=== PATIENT | male | born 1950 | race Caucasian/White ===

== ENCOUNTER → 2019-11-13 | Outpatient (CLI) | payer OTHER ==
--- NOTE | 2019-11-14 09:36 | US ---
EXAMINATION TYPE: US kidneys/renal and bladder DATE OF EXAM: 11/13/2019 COMPARISON: NONE CLINICAL HISTORY: unspec kidney failure, N19. EXAM MEASUREMENTS: Right Kidney: 9.9 x 3.5 x 4.5cm Left Kidney: 6.3 x 3.3 x 3.2 cm Right Kidney: No hydronephrosis or masses seen Left Kidney: atrophied, cortical thinning Bladder: wnl, as seen not fully distended Right Jet seen, left not visualized IMPRESSION: 1. Normal renal ultrasound
== END | disposition home or self-care (01) ==
LOC: RADUSWWP 16:22
DX: N19 Unspecified kidney failure (principal); Z88.8 Allergy status to other drugs, medicaments and biological substances
CPT/HCPCS: 76770

== ENCOUNTER 2020-06-08 17:19 | Inpatient (IN) | payer MEDICARE, OTHER ==
[2020-06-08] MEDS ORDERED: SODIUM CHLORIDE 0.9% 500 ML 500 ML IV STA (17:23)
[2020-06-08] MEDS ORDERED: ALBUTEROL NEBULIZED 2.5 MG/3 ML INHALATION STA (17:24)
[2020-06-08] MEDS ORDERED: IPRATROPIUM 0.5 MG/2.5 ML NEBU INHALATION STA (17:24)
[2020-06-08] MEDS ORDERED: AZITHROMYCIN 500 MG in SODIUM CHLORIDE 0.9% 250 ML IVPB STA (17:24)
--- NOTE | 2020-06-08 17:30 | ED ---
General Adult HPI - General Stated complaint: SOB Time Seen by Provider: 06/08/20 17:23 Source: patient Mode of arrival: EMS Limitations: no limitations - History of Present Illness Initial comments: Dictation was produced using [employer] dictation software. please excuse any g rammatical, word or spelling errors. This patient was cared for during a federal and state declared state of emergency secondary to Covid 19 Chief Complaint: Patient is 69-year-old male past medical history colon cancer, COPD, dyslipidemia and hypertension presents today with dyspnea and hypoxia. History of Present Illness: 69-year-old male who has past medical history of COPD. Patient was admitted express when he was found to be hypoxic. EMS was called patient is transferred to the emergency department. Patient reports that he is been feeling more dyspneic over the last 2-3 days. Patient does have a history of COPD. He does not see a lung doctor. He does have an inhaler however doesn't use it because he does not want to get addicted to it. Does not use any oxygen at home. Patient complains of some mild abdominal pain. He does not have any chest pain. Denies any fever, chills or night sweats. He does have a cough. He states that his cough is about the same as that spent for the last several months. EMS reports that upon their initial arrival patient was hypoxic to approximately 85%. EMS provided patient with breathing treatment and supplemental oxygen with improvement of his hypoxia to the low 90s. The ROS documented in this emergency department record has been reviewed and confirmed by me. Those systems with pertinent positive or negative responses have been documented in the HPI. All other systems are other negative and/or noncontributory. PHYSICAL EXAM: General Impression: Alert and oriented x3, not in acute distress HEENT: Normocephalic atraumatic, extra-ocular movements intact, pupils equal and reactive to light bilaterally, mucous membranes moist. Cardiovascular: Heart regular rate and rhythm Chest: Mildly tachypneic, minimal retractions, diffuse lung rhonchi worse on the right lung base compared to the left. Abdomen: abdomen soft, non-tender, non-distended, no organomegaly Musculoskeletal: Pulses present and equal in all extremities, no peripheral edema Motor: no focal deficits noted Neurological: CN II-XII grossly intact, no focal motor or sensory deficits noted Skin: Intact with no visualized rashes Psych: Normal affect and mood ED course:-69 year-old male past medical history of COPD presents with respiratory distress and hypoxia. Vital signs upon arrival shows 85% on room air. X-ray was obtained showing diffuse pulmonary edema consistent with congestive heart failure. Laboratory evaluation obtained. Mild stenosis of 0.7. Cardiac panel is unremarkable. D-dimer is 1.25. Creatinine is 2.6, rest metabolic panel is unremarkable. Troponin is 0.034. Brain natruretic peptide is 29,000. Patient's dyspnea is likely multifactorial including COPD and heart failure however, Lasix, nitroglycerin. Patient placed on BiPAP. ABG was obtained. There is really hypoxia with pO2 56.100% FiO2. Patient observed in emergency department and improved with BiPAP and nitroglycerin. Concerning patient's clinical presentation case was discussed with Dr. Rivas intensive care unit. He was agreeable for patient be admitted to ICU. Case was discussed Dr. Freeman who is willing to accept patients care. Patient started on heparin for elevated troponin. Patient be admitted with the heart failure pathway.. EKG interpretation: Ventricular rate 86, normal sinus rhythm,. 154, QRS 122, QTc 507. Most recent EKG in our EMR is from 07/08/2016. QRS from 07/08/2016 was 106. Today's 122. WA interval 154, QTc 507. There is component of left bundle branch block and lateral precordial leads show ST depressions. EKG is significantly different from 4 years ago.Repeat EKG is performed showing no dynamic changes. There is persistent lateral ST depressions however. - Related Data Home Medications Medication Instructions Recorded Confirmed Amitriptyline HCl [Elavil] 100 mg PO HS 06/04/16 09/21/17 Budesonide/Formoterol Fumarate 1 puff INHALATION BID PRN 06/04/16 09/21/17 [Symbicort 80-4.5 Mcg Inhaler] Cholecalciferol [Vitamin D3 (25 1,000 unit PO DAILY 06/04/16 09/21/17 Mcg = 1000 Iu)] Metoprolol Tartrate [Lopressor] 75 mg PO BID 06/04/16 09/21/17 Mirtazapine [Remeron] 45 mg PO HS 06/04/16 09/21/17 Simvastatin [Zocor] 20 mg PO HS 06/04/16 09/21/17 Tamsulosin [Flomax] 0.4 mg PO DAILY 06/04/16 09/21/17 amLODIPine [Norvasc] 10 mg PO QAM 06/04/16 09/21/17 clonazePAM [KlonoPIN] 1 mg PO BID 06/04/16 09/21/17 raNITIdine HCL [Zantac] 75 mg PO BID 07/16/16 09/21/17 hydrOXYzine pamoate [Vistaril] 10 mg PO BID 09/21/17 09/21/17 Allergies Allergy/AdvReac Type Severity Reaction Status Date / Time lisinopril Allergy swollen Verified 09/21/17 09:16 testicle,rash morphine AdvReac Nausea & Verified 09/21/17 09:16 Vomiting Review of Systems ROS Statement: Those systems with pertinent positive or pertinent negative responses have been documented in the HPI. ROS Other: All systems not noted in ROS Statement are negative. Past Medical History Past Medical History: Cancer, COPD, GERD/Reflux, Hyperlipidemia, Hypertension, Prostate Disorder Additional Past Medical History / Comment(s): cancerous polyp,enlarged prostate,HEMORRHOIDS, BLOOD IN STOOL, RESTLESS LEG, colon Cancer History of Any Multi-Drug Resistant Organisms: None Reported Past Surgical History: Appendectomy, Orthopedic Surgery Additional Past Surgical History / Comment(s): ACL SX RT KNEE X3, LEFT HEEL FUSION, LEFT ARM BICEP SX, NASAL SX R/T ULCER, colon resection, COLONOSCOPY, Past Anesthesia/Blood Transfusion Reactions: No Reported Reaction Past Psychological History: Anxiety, Depression Smoking Status: Current every day smoker Past Alcohol Use History: None Reported Past Drug Use History: None Reported - Past Family History Mother Family Medical History: Cancer Additional Family Medical History / Comment(s): BREAST Sister(s) Family Medical History: Deep Vein Thrombosis (DVT) Father Family Medical History: COPD Additional Family Medical History / Comment(s): FROM CARDIAC ARREST General Exam Limitations: no limitations Course Vital Signs 06/08/20 06/08/20 06/08/20 17:22 17:28 18:00 Pulse Rate 86 82 82 Respiratory 22 22 Rate Blood Pressure 143/105 155/95 O2 Sat by Pulse 85 L Oximetry 06/08/20 06/08/20 06/08/20 18:10 18:30 18:51 Pulse Rate 85 89 88 Respiratory 22 22 Rate Blood Pressure 160/91 155/106 O2 Sat by Pulse 92 L 98 Oximetry Medical Decision Making - Lab Data Result diagrams: 06/08/20 17:32 06/08/20 17:32 Lab Results 06/08/20 06/08/20 06/08/20 Range/Units 17:32 17:32 17:32 WBC 11.7 H (3.8-10.6) k/uL RBC 4.34 (4.30-5.90) m/uL Hgb 12.9 L (13.0-17.5) gm/dL Hct 39.0 (39.0-53.0) % MCV 90.0 (80.0-100.0) fL MCH 29.8 (25.0-35.0) pg MCHC 33.1 (31.0-37.0) g/dL RDW 15.0 (11.5-15.5) % Plt Count 312 (150-450) k/uL Neutrophils % 75 % Lymphocytes % 17 % Monocytes % 4 % Eosinophils % 2 % Basophils % 0 % Neutrophils # 8.8 H (1.3-7.7) k/uL Lymphocytes # 2.0 (1.0-4.8) k/uL Monocytes # 0.5 (0-1.0) k/uL Eosinophils # 0.3 (0-0.7) k/uL Basophils # 0.1 (0-0.2) k/uL PT 10.3 (9.0-12.0) sec INR 1.0 (<1.2) APTT 26.6 (22.0-30.0) sec D-Dimer 1.25 H (<0.60) mg/L FEU Sample Site ABG pH (7.35-7.45) ABG pCO2 (35-45) mmHg ABG pO2 (83-108) mmHg ABG HCO3 (21-25) mmol/L ABG Total CO2 (19-24) mmol/L ABG O2 Saturation (94-97) % ABG Base Excess mmol/L Chris Test FiO2 % Sodium 135 L (137-145) mmol/L Potassium 4.7 (3.5-5.1) mmol/L Chloride 106 (98-107) mmol/L Carbon Dioxide 20 L (22-30) mmol/L Anion Gap 9 mmol/L BUN 21 H (9-20) mg/dL Creatinine 2.60 H (0.66-1.25) mg/dL Est GFR (CKD-EPI)AfAm 28 (>60 ml/min/1.73 sqM) Est GFR (CKD-EPI)NonAf 25 (>60 ml/min/1.73 sqM) Glucose 125 H (74-99) mg/dL Plasma Lactic Acid Dipesh (0.7-2.0) mmol/L Calcium 9.0 (8.4-10.2) mg/dL Magnesium 2.6 H (1.6-2.3) mg/dL Total Bilirubin 0.8 (0.2-1.3) mg/dL AST 33 (17-59) U/L ALT 30 (4-49) U/L Alkaline Phosphatase 92 (38-126) U/L Troponin I (0.000-0.034) ng/mL NT-Pro-B Natriuret Pep pg/mL Total Protein 7.4 (6.3-8.2) g/dL Albumin 4.3 (3.5-5.0) g/dL 06/08/20 06/08/20 06/08/20 Range/Units 17:32 17:32 17:32 WBC (3.8-10.6) k/uL RBC (4.30-5.90) m/uL Hgb (13.0-17.5) gm/dL Hct (39.0-53.0) % MCV (80.0-100.0) fL MCH (25.0-35.0) pg MCHC (31.0-37.0) g/dL RDW (11.5-15.5) % Plt Count (150-450) k/uL Neutrophils % % Lymphocytes % % Monocytes % % Eosinophils % % Basophils % % Neutrophils # (1.3-7.7) k/uL Lymphocytes # (1.0-4.8) k/uL Monocytes # (0-1.0) k/uL Eosinophils # (0-0.7) k/uL Basophils # (0-0.2) k/uL PT (9.0-12.0) sec INR (<1.2) APTT (22.0-30.0) sec D-Dimer (<0.60) mg/L FEU Sample Site ABG pH (7.35-7.45) ABG pCO2 (35-45) mmHg ABG pO2 (83-108) mmHg ABG HCO3 (21-25) mmol/L ABG Total CO2 (19-24) mmol/L ABG O2 Saturation (94-97) % ABG Base Excess mmol/L Chris Test FiO2 % Sodium (137-145) mmol/L Potassium (3.5-5.1) mmol/L Chloride (98-107) mmol/L Carbon Dioxide (22-30) mmol/L Anion Gap mmol/L BUN (9-20) mg/dL Creatinine (0.66-1.25) mg/dL Est GFR (CKD-EPI)AfAm (>60 ml/min/1.73 sqM) Est GFR (CKD-EPI)NonAf (>60 ml/min/1.73 sqM) Glucose (74-99) mg/dL Plasma Lactic Acid Dipesh 1.3 (0.7-2.0) mmol/L Calcium (8.4-10.2) mg/dL Magnesium (1.6-2.3) mg/dL Total Bilirubin (0.2-1.3) mg/dL AST (17-59) U/L ALT (4-49) U/L Alkaline Phosphatase (38-126) U/L Troponin I 0.034 (0.000-0.034) ng/mL NT-Pro-B Natriuret Pep 55414 pg/mL Total Protein (6.3-8.2) g/dL Albumin (3.5-5.0) g/dL 06/08/20 Range/Units 18:26 WBC (3.8-10.6) k/uL RBC (4.30-5.90) m/uL Hgb (13.0-17.5) gm/dL Hct (39.0-53.0) % MCV (80.0-100.0) fL MCH (25.0-35.0) pg MCHC (31.0-37.0) g/dL RDW (11.5-15.5) % Plt Count (150-450) k/uL Neutrophils % % Lymphocytes % % Monocytes % % Eosinophils % % Basophils % % Neutrophils # (1.3-7.7) k/uL Lymphocytes # (1.0-4.8) k/uL Monocytes # (0-1.0) k/uL Eosinophils # (0-0.7) k/uL Basophils # (0-0.2) k/uL PT (9.0-12.0) sec INR (<1.2) APTT (22.0-30.0) sec D-Dimer (<0.60) mg/L FEU Sample Site rrad ABG pH 7.42 (7.35-7.45) ABG pCO2 34 L (35-45) mmHg ABG pO2 56 L* (83-108) mmHg ABG HCO3 22 (21-25) mmol/L ABG Total CO2 23 (19-24) mmol/L ABG O2 Saturation 88.3 L (94-97) % ABG Base Excess -2.8 mmol/L Chris Test Yes FiO2 100 % Sodium (137-145) mmol/L Potassium (3.5-5.1) mmol/L Chloride (98-107) mmol/L Carbon Dioxide (22-30) mmol/L Anion Gap mmol/L BUN (9-20) mg/dL Creatinine (0.66-1.25) mg/dL Est GFR (CKD-EPI)AfAm (>60 ml/min/1.73 sqM) Est GFR (CKD-EPI)NonAf (>60 ml/min/1.73 sqM) Glucose (74-99) mg/dL Plasma Lactic Acid Dipesh (0.7-2.0) mmol/L Calcium (8.4-10.2) mg/dL Magnesium (1.6-2.3) mg/dL Total Bilirubin (0.2-1.3) mg/dL AST (17-59) U/L ALT (4-49) U/L Alkaline Phosphatase (38-126) U/L Troponin I (0.000-0.034) ng/mL NT-Pro-B Natriuret Pep pg/mL Total Protein (6.3-8.2) g/dL Albumin (3.5-5.0) g/dL Critical Care Time Critical Care Time: Yes Total Critical Care Time: 33 Disposition Clinical Impression: Heart failure Disposition: ADMITTED IP TO THIS HOSP Condition: Critical Referrals: [facility],Clinic [Primary Care Provider] - 1-2 days Decision Time: 19:12
[2020-06-08 17:47] LABS: Basophils # (A) 0.1 k/uL (0-0.2); Basophils % (A) 0 %; Eosinophils # (A) 0.3 k/uL (0-0.7); Eosinophils % (A) 2 %; HGB 12.9 gm/dL (13.0-17.5); Lymphocytes % (A) 17 %; MCH 29.8 pg (25.0-35.0); MCHC 33.1 g/dL (31.0-37.0); Mean Platelet Volume 6.7; Monocytes # (A) 0.5 k/uL (0-1.0); Monocytes % (A) 4 %; Neutrophils # (A) 8.8 k/uL (1.3-7.7); Neutrophils % (A) 75 %; Platelet Count 312 k/uL (150-450); RBC 4.34 m/uL (4.30-5.90); WBC 11.7 k/uL (3.8-10.6)
[2020-06-08 17:53] LABS: Albumin 4.3 g/dL (3.5-5.0); Magnesium 2.6 mg/dL (1.6-2.3); Potassium 4.7 mmol/L (3.5-5.1); Total Bilirubin 0.8 mg/dL (0.2-1.3); Total Protein 7.4 g/dL (6.3-8.2)
[2020-06-08 17:56] LABS: Partial Thromboplastin Time 26.6 sec (22.0-30.0); Prothrombin Time 10.3 sec (9.0-12.0)
[2020-06-08] MEDS ORDERED: DEXAMETHASONE SOD PHOSPHATE 10 MG/ML 1 ML VIAL IV STA (17:57)
[2020-06-08 18:01] LABS: D-Dimer 1.25 mg/L FEU (<0.60)
[2020-06-08] MEDS ORDERED: cefTRIAXone IN SWFI 1,000 MG/10 ML SYRINGE IVP STA (18:14)
--- NOTE | 2020-06-08 18:19 | XR ---
EXAMINATION TYPE: XR chest 1V portable DATE OF EXAM: 06/08/2020 COMPARISON: 07/20/2016 HISTORY: Short of breath TECHNIQUE: Single view FINDINGS: There is pulmonary interstitial edema. There is blunting of the costophrenic angles. Heart appears enlarged. IMPRESSION: Congestive heart failure with pleural effusions and pulmonary edema appears new compared to old exam.
[2020-06-08] MEDS ORDERED: NITROGLYCERIN SL TABS 0.4 MG TAB SUBLINGUAL STA (18:30)
[2020-06-08] MEDS ORDERED: HEPARIN SODIUM,PORCINE 5,000 UNIT/ML 1 ML VIAL IV PRN (18:33)
[2020-06-08] MEDS ORDERED: HEPARIN SODIUM,PORCINE 5,000 UNIT/ML 1 ML VIAL IV ONE (18:33)
[2020-06-08] MEDS ORDERED: NITROGLYCERIN-D5W PMX 50 MG in DEXTROSE/WATER 1 250ML.BAG IV ONE (18:33)
[2020-06-08 18:37] LABS: ABG Base Excess -2.8 mmol/L; ABG HCO3 22 mmol/L (21-25); ABG Oxygen Saturation 88.3 % (94-97); ABG PCO2 34 mmHg (35-45); ABG PH 7.42 (7.35-7.45); ABG TCO2 23 mmol/L (19-24); Allen Test Performed? Yes
[2020-06-08] MEDS ORDERED: FUROSEMIDE 10 MG/ML 4 ML VIAL IV STA (18:39)
[2020-06-08 18:43] LABS: ABG PO2 56 mmHg (83-108)
[2020-06-08] MEDS ORDERED: HEPARIN SOD,PORK IN 0.45% NACL 25,000 UNIT in 0.45% NACL 1 250ML.BAG IV SCH (18:45)
[2020-06-08] MEDS ORDERED: ALBUTEROL NEBULIZED 2.5 MG/3 ML INHALATION PRN (20:02)
[2020-06-08] MEDS ORDERED: polyethylene glycoL 3350 17 GM POWD.PACK PO PRN (20:02)
[2020-06-08] MEDS ORDERED: FAMOTIDINE 20 MG TAB PO PRN (20:02)
[2020-06-08] MEDS ORDERED: hydrOXYzine HCL 25 MG TAB PO PRN (20:02)
[2020-06-08 20:35] LABS: Glucose,Whole Blood 170 mg/dL (75-99)
[2020-06-08] MEDS: METOPROLOL TARTRATE 50 MG TAB PO SCH (22:40)
[2020-06-08] MEDS: clonazePAM 1 MG TAB PO SCH (22:41)
[2020-06-08] MEDS: MIRTAZAPINE 45 MG TABLET PO SCH (22:41)
[2020-06-08] MEDS: AMITRIPTYLINE HCL 50 MG TAB PO SCH (22:41)
[2020-06-08] MEDS: MELATONIN 3 MG TABLET PO SCH (22:43)
[2020-06-08] MEDS ORDERED: NALOXONE 0.4 MG/ML 1 ML VIAL IV PRN (23:35)
[2020-06-09] MEDS: FUROSEMIDE 10 MG/ML 4 ML VIAL IV SCH ×3 (03:02→18:51)
[2020-06-09 05:07] LABS: Basophils % (A) 0 %; Eosinophils # (A) 0.1 k/uL (0-0.7); Eosinophils % (A) 1 %; HCT 36.8 % (39.0-53.0); HGB 11.7 gm/dL (13.0-17.5); Lymphocytes # (A) 0.9 k/uL (1.0-4.8); Lymphocytes % (A) 6 %; MCH 28.7 pg (25.0-35.0); MCHC 31.8 g/dL (31.0-37.0); MCV 90.1 fL (80.0-100.0); Mean Platelet Volume 6.7; Monocytes # (A) 0.2 k/uL (0-1.0); Monocytes % (A) 1 %; Neutrophils # (A) 12.5 k/uL (1.3-7.7); Neutrophils % (A) 91 %; Platelet Count 305 k/uL (150-450); RBC 4.09 m/uL (4.30-5.90); RDW 15.1 % (11.5-15.5); WBC 13.7 k/uL (3.8-10.6)
[2020-06-09 05:38] LABS: Calcium 8.8 mg/dL (8.4-10.2); Magnesium 2.4 mg/dL (1.6-2.3)
[2020-06-09] MEDS ORDERED: ONDANSETRON 4 MG/2 ML VIAL IVP PRN (05:59)
[2020-06-09] MEDS: HYDROmorphone 0.5 MG/0.5 ML SYRINGE IVP PRN (06:04)
--- NOTE | 2020-06-09 07:32 | P.CRDCN ---
History of Present Illness Consult date: 06/09/20 Chief complaint: Shortness of breath History of present illness: This is a 69-year-old gentleman with a past medical history significant for hype rtension, dyslipidemia, and chronic obstructive pulmonary disease as well as chronic renal failure presented to the emergency department complaining of shortness of breath. The patient somewhat is a poor historian. He stated that the shortness of breath started about 48 hours before he presented to the emergency department. He describes exertional dyspnea. No fever or chills or cough. He denies any symptoms of chest pain or chest discomfort, dizziness, heart racing, or syncope. No change in the weight. The patient does have history of COPD but he was not using an inhaler looks like it was prescribed to him in the past. Does not follow with any collection teller on regular basis. He does not have any history of coronary artery disease or congestive heart failure or cardiac arrhythmia and he stated that he received a area development consultant in the past. EMS was right and the patient was brought to the emergency department. The chest x-ray when he presented to the hospital showed findings consistent with congestive heart failure. The BNP came in to be elevated at almost 30,000. The d-dimer was checked and came in to be elevated. No CTA of the chest or VQ scan performed but currently the patient is on heparin. The hemoglobin is within normal limits. The creatinine came in to be elevated around 2.7 and the patient's baseline creatinine is lower. The first set of troponin came in to be within normal limits. Please note that the patient was slightly tachycardic when he presented to the hospital but he has been maintaining normal blood pressure and as a matter of fact his pressure on the higher side. The dose of metoprolol he was on at home as well as Norvasc was started. When he was seen this morning he was in mild distress because a Ceballos catheter was placed but the Ceballos was blocked and the patient is unable to get any urine out. He is in process of being seen by a urologist this stars analytical lead. Currently he is also on Lasix IV. I am going to obtain a VQ scan just to rule out a pulmonary embolism. Also I am going to obtain an echocardiogram was Doppler. Meanwhile will continue the heparin IV and continue the Lasix and follow-up with the patient. Past Medical History Past Medical History: Cancer, COPD, GERD/Reflux, Hyperlipidemia, Hypertension, Prostate Disorder Additional Past Medical History / Comment(s): cancerous polyp,enlarged prostate,HEMORRHOIDS, BLOOD IN STOOL, RESTLESS LEG - intermittent, colon Cancer History of Any Multi-Drug Resistant Organisms: None Reported Past Surgical History: Appendectomy, Orthopedic Surgery Additional Past Surgical History / Comment(s): ACL SX RT KNEE X3, LEFT HEEL FUSION, LEFT ARM BICEP SX, NASAL SX R/T ULCER, colon resection, COLONOSCOPY, Past Anesthesia/Blood Transfusion Reactions: No Reported Reaction Past Psychological History: Anxiety, Depression Smoking Status: Current every day smoker Past Alcohol Use History: None Reported Additional Past Alcohol Use History / Comment(s): STARTED AGE 19, SMOKES 1PPD Past Drug Use History: None Reported - Past Family History Mother Family Medical History: Cancer Additional Family Medical History / Comment(s): BREAST Sister(s) Family Medical History: Deep Vein Thrombosis (DVT) Father Family Medical History: COPD Additional Family Medical History / Comment(s): FROM CARDIAC ARREST Medications and Allergies Home Medications Medication Instructions Recorded Confirmed Type Amitriptyline HCl [Elavil] 100 mg PO HS 06/04/16 06/08/20 History Cholecalciferol [Vitamin D3 (25 1,000 unit PO DAILY 06/04/16 06/08/20 History Mcg = 1000 Iu)] Mirtazapine [Remeron] 45 mg PO HS 06/04/16 06/08/20 History Simvastatin [Zocor] 20 mg PO HS 06/04/16 06/08/20 History Tamsulosin [Flomax] 0.4 mg PO DAILY 06/04/16 06/08/20 History amLODIPine [Norvasc] 10 mg PO DAILY 06/04/16 06/08/20 History clonazePAM [KlonoPIN] 1 mg PO BID 06/04/16 06/08/20 History Albuterol Inhaler [Ventolin Hfa 1 puff INHALATION RT-QID PRN 06/08/20 06/08/20 History Inhaler] Budesonide/Formoterol Fumarate 2 puff INHALATION RT-BID 06/08/20 06/08/20 History [Symbicort 160-4.5 Mcg Inhaler] Docusate [Colace] 200 mg PO DAILY 06/08/20 06/08/20 History Famotidine [Pepcid] 20 mg PO BID PRN 06/08/20 06/08/20 History Melatonin 3 mg PO HS 06/08/20 06/08/20 History Metoprolol Tartrate [Lopressor] 75 mg PO DAILY 06/08/20 06/08/20 History Metoprolol Tartrate [Lopressor] 100 mg PO HS 06/08/20 06/08/20 History Multivitamins, Thera [Multivitamin 1 tab PO DAILY 06/08/20 06/08/20 History (formulary)] hydrOXYzine HCL [Atarax] 25 mg PO BID PRN 06/08/20 06/08/20 History polyethylene glycoL 3350 [Miralax] 17 gm PO DAILY 06/08/20 06/08/20 History Allergies Allergy/AdvReac Type Severity Reaction Status Date / Time lisinopril Allergy swollen Verified 06/08/20 19:39 testicle,rash morphine AdvReac Nausea & Verified 06/08/20 19:39 Vomiting Physical Exam Vitals: Vital Signs Temp Pulse Resp BP Pulse Ox 06/09/20 07:00 87 11 L 165/94 98 06/09/20 06:00 85 20 156/96 96 06/09/20 05:00 86 17 153/82 93 L 06/09/20 04:00 98.5 F 76 16 154/87 92 L 06/09/20 03:00 78 16 147/87 93 L 06/09/20 02:00 78 24 144/90 95 06/09/20 01:00 75 16 153/97 93 L 06/09/20 00:00 98.4 F 84 24 154/91 91 L 06/08/20 20:15 86 20 128/96 99 06/08/20 19:30 86 20 128/96 99 06/08/20 19:00 84 23 128/82 98 06/08/20 18:51 88 22 155/106 98 06/08/20 18:30 89 25 H 160/91 92 L 06/08/20 18:10 85 06/08/20 18:00 84 19 164/93 83 L 06/08/20 17:30 84 19 143/105 06/08/20 17:28 82 22 155/95 06/08/20 17:26 89 L 06/08/20 17:22 86 22 143/105 85 L Intake and Output 06/08/20 06/09/20 06/09/20 22:59 06:59 14:59 Intake Total 440 Output Total 600 485 Balance -600 -45 Intake: IV 40 .9 NS 40 Oral 400 Output: Urine 600 485 Other: Voiding Method Indwelling Catheter Indwelling Catheter Weight 62.8 kg - Constitutional General appearance: no acute distress - Respiratory Respiratory: bilateral: wheezing - Cardiovascular Rhythm: regular Heart sounds: normal: S1, S2 Results 06/09/20 04:52 06/09/20 04:52 Cardiac Enzymes 06/08/20 06/08/20 Range/Units 17:32 17:32 AST 33 (17-59) U/L Troponin I 0.034 (0.000-0.034) ng/mL Coagulation 06/08/20 06/09/20 06/09/20 Range/Units 17:32 01:51 04:52 PT 10.3 (9.0-12.0) sec APTT 26.6 47.5 H 49.9 H (22.0-30.0) sec CBC 06/08/20 06/09/20 Range/Units 17:32 04:52 WBC 11.7 H 13.7 H (3.8-10.6) k/uL RBC 4.34 4.09 L (4.30-5.90) m/uL Hgb 12.9 L 11.7 L (13.0-17.5) gm/dL Hct 39.0 36.8 L (39.0-53.0) % Plt Count 312 305 (150-450) k/uL Comprehensive Metabolic Panel 06/08/20 06/09/20 Range/Units 17:32 04:52 Sodium 135 L 138 (137-145) mmol/L Potassium 4.7 4.0 (3.5-5.1) mmol/L Chloride 106 105 (98-107) mmol/L Carbon Dioxide 20 L 22 (22-30) mmol/L BUN 21 H 26 H (9-20) mg/dL Creatinine 2.60 H 2.71 H (0.66-1.25) mg/dL Glucose 125 H 154 H (74-99) mg/dL Calcium 9.0 8.8 (8.4-10.2) mg/dL AST 33 (17-59) U/L ALT 30 (4-49) U/L Alkaline Phosphatase 92 (38-126) U/L Total Protein 7.4 (6.3-8.2) g/dL Albumin 4.3 (3.5-5.0) g/dL Current Medications Generic Name Dose Route Start Last Admin Trade Name Freq PRN Reason Stop Dose Admin Albuterol Sulfate 2.5 mg 06/08/20 20:02 Ventolin Nebulized INHALATION RT-QID PRN Shortness Of Breath Amitriptyline HCl 100 mg 06/08/20 21:00 06/08/20 22:41 Elavil PO 100 mg HS SUMMER Administration Amlodipine Besylate 10 mg 06/09/20 09:00 Norvasc PO DAILY SUMMER Budesonide/Formoterol Fumarate 2 puff 06/09/20 08:00 Symbicort 160-4.5 Mcg Inhaler INHALATION RT-BID SUMMER Clonazepam 1 mg 06/08/20 21:00 06/08/20 22:41 Klonopin PO 1 mg BID SUMMER Administration Docusate Sodium 200 mg 06/09/20 09:00 Colace PO DAILY SUMMER Famotidine 20 mg 06/08/20 20:02 Pepcid PO BID PRN Heartburn Furosemide 40 mg 06/09/20 03:00 06/09/20 03:02 Lasix IV 40 mg Q8H SUMMER Administration Heparin Sodium (Porcine) 0 unit 06/08/20 18:33 Heparin IV PER PROTOCOL PRN Low PTT Protocol Hydromorphone HCl 0.5 mg 06/09/20 05:58 06/09/20 06:04 Dilaudid IVP 0.5 mg Q3HR PRN Administration Pain Hydroxyzine HCl 25 mg 06/08/20 20:02 Atarax PO BID PRN ANXIETY/ITCHING Nitroglycerin/Dextrose 50 mg/ 250 mls @ 3 mls/hr 06/08/20 18:33 06/08/20 18:46 IV Solution IV 06/09/20 18:32 10 mcg/min .Q24H ONE 3 mls/hr Administration Protocol 10 MCG/MIN Heparin Sodium/Sodium Chloride 250 mls @ 8.709 mls/hr 06/08/20 18:45 06/08/20 18:48 25,000 unit/ Sodium Chloride IV 12 units/kg/hr .Q24H SUMMER 8.709 mls/hr Administration Protocol 12 UNITS/KG/HR Melatonin 3 mg 06/08/20 21:00 06/08/20 22:43 Melatonin PO Not Given HS SUMMER Metoprolol Tartrate 100 mg 06/08/20 21:00 06/08/20 22:40 Lopressor PO 100 mg HS SUMMER Administration Metoprolol Tartrate 75 mg 06/09/20 09:00 Lopressor PO DAILY SUMMER Mirtazapine 45 mg 06/08/20 21:00 06/08/20 22:41 Remeron PO 45 mg HS SUMMER Administration Naloxone HCl 0.2 mg 06/08/20 23:35 Narcan IV Q2M PRN Opioid Reversal Ondansetron HCl 4 mg 06/09/20 05:59 Zofran IVP Q6HR PRN Nausea And Vomiting Polyethylene Glycol 17 gm 06/08/20 20:02 Miralax PO DAILY PRN Constipation Tamsulosin HCl 0.4 mg 06/09/20 09:00 Flomax PO DAILY SUMMER Intake and Output 06/08/20 06/09/20 06/09/20 22:59 06:59 14:59 Intake Total 440 Output Total 600 485 Balance -600 -45 Intake: IV 40 .9 NS 40 Oral 400 Output: Urine 600 485 Other: Voiding Method Indwelling Catheter Indwelling Catheter Weight 62.8 kg 06/09/20 04:52 06/09/20 04:52 Assessment and Plan Assessment: Assessment #1 acute hypoxic respiratory failure #2 abnormal d-dimer. PE to be ruled out #3 possible COPD exacerbation #4 component of heart failure exacerbation #5 hypertension #6 dyslipidemia #7 renal failure #8 multiple comorbid conditions Plan #1 continue the current medical regimen including the heparin as well as Lasix #2 rule out PE. We'll obtain a VQ scan in view of the abnormal creatinine #3 obtain an echocardiogram was Doppler #4 continue monitor the blood pressure and adjust medication accordingly. #5 monitor the kidney function and electrolytes #6 follow-up with the patient
--- NOTE | 2020-06-09 07:58 | XR ---
EXAMINATION TYPE: XR chest 1V DATE OF EXAM: 06/09/2020 COMPARISON: 06/08/2020 HISTORY: Shortness of breath FINDINGS: There are bilateral pleural effusions with bibasilar infiltrate. There is a diffuse interstitial pat tern. No pneumothorax. Heart size normal. IMPRESSION: 1. Findings most typical of CHF correlate clinically to exclude pneumonia or interstitial disease. No significant interval change.
[2020-06-09] MEDS: METOPROLOL TARTRATE 25 MG TAB PO SCH (10:23)
[2020-06-09] MEDS: DOCUSATE 100 MG CAP PO SCH (10:23)
[2020-06-09] MEDS: TAMSULOSIN 0.4 MG CAP.ER.24H PO SCH (10:23)
[2020-06-09] MEDS: clonazePAM 1 MG TAB PO SCH ×2 (10:23→20:55)
[2020-06-09] MEDS: amLODIPine 10 MG TAB PO SCH (10:23)
--- NOTE | 2020-06-09 10:34 | US ---
EXAMINATION TYPE: US kidneys/renal and bladder DATE OF EXAM: 06/09/2020 COMPARISON: NONE CLINICAL HISTORY: acute kidney injury. EXAM MEASUREMENTS: Right Kidney: 10.7 x 4.3 x 4.7cm Left Kidney: 6.4 x 3.8 x 4.2cm Right Kidney: prominent renal pelvis Left Kidney: limited views of atrophied kidney due to pleural effusion and extensive overlying bowel gas Bladder: wynn seen Small right pleural effusion noted. Small amount of free fluid seen in the abdomen. IMPRESSION: 1. Prominent extrarenal pelvis favored over mild hydronephrosis on the right correlate clinically. Ma rked atrophy of the left kidney compatible with chronic medical renal disease. 2. No nephrolithiasis. 3. Small amount of free intra-abdominal fluid. 4. Small right pleural effusion
--- NOTE | 2020-06-09 10:35 | US ---
EXAMINATION TYPE: US venous doppler duplex LE DATE OF EXAM: 06/09/2020 10:22 AM COMPARISON: NONE CLINICAL HISTORY: rule out DVT. SIDE PERFORMED: Bilateral TECHNIQUE: The lower extremity deep venous system is examined utilizing real time linear array sonog patty with graded compression, doppler sonography and color-flow sonography. VESSELS IMAGED: External Iliac Vein (EIV) Common Femoral Vein Deep Femoral Vein Greater Saphenous Vein * Femoral Vein Popliteal Vein Small Saphenous Vein * Proximal Calf Veins (* superficial vessels) Right Leg: Negative for DVT Left Leg: Negative for DVT IMPRESSION: 1. No diagnostic evidence of DVT as visualized.
[2020-06-09] MEDS: SYMBICORT 160-4.5 MCG INHALER INHALATION SCH ×2 (11:55→20:04)
--- NOTE | 2020-06-09 13:38 | P.CNPUL ---
History of Present Illness Consult date: 06/09/20 Reason for consult: dyspnea History of present illness: A 69-year-old male patient with known history of COPD and chronic kidney disease in addition to hypertension and hyperlipidemia who came into the hospital because of two-week history of progressive worsening exertional dyspnea along with some orthopnea. No lower extremity edema. Minimal cough. No significant sputum production. No hemoptysis. No pleurisy. No chest pain. No fever or chills. The patient came into the emergency department and the patient was quite short of breath. The patient was briefly placed on BiPAP at a pressure of 12/5 cm of water with an FiO2 of 50%. This morning he was still on BiPAP and I took him off and put him on oxygen at 4 L per minute nasal cannula. The patient had an elevated d-dimer of 2.7. A VQ scan was ordered and the patient was start ed on IV heparin considering the possibility of pulmonary embolism. Noted the chest x-ray showed bilateral pulmonary infiltrates most consistent with CHF. In any rate, and evaluation was started in the patient had an accidental traumatic pole of his Ceballos catheter which resulted in significant amount of hematuria for which urology was consulted and the Ceballos catheter was kept in place. No clots. No outflow obstruction secondary to bleeding. The patient did have some difficulty with urination as the catheter got plugged and ultimately this was rectified by the urologist. The patient remains on IV Lasix for now and is producing adequate amount of urine output. Echocardiogram is pending for now. ProBNP level is quite elevated. No altered mentation. No other complaints otherwise for now. Review of Systems Constitutional: Denies chills, Denies fever Eyes: denies as per HPI, denies blurred vision, denies bulging eye, denies decreased vision, denies diplopia, denies discharge, denies dry eye, denies irritation, denies itching, denies pain, denies photophobia, denies loss of peripheral vision, denies loss of vision, denies tunnel vision/blind spots Ears: deny: decreased hearing, ear discharge, earache, tinnitus Ears, nose, mouth and throat: Denies headache, Denies sore throat Cardiovascular: Reports decreased exercise tolerance, Reports dyspnea on exertion Respiratory: Reports dyspnea Gastrointestinal: Reports as per HPI Genitourinary: Reports as per HPI, Reports hematuria Musculoskeletal: Reports as per HPI Musculoskeletal: absent: ankle pain, ankle stiffness, ankle swelling Integumentary: Reports as per HPI Neurological: Reports as per HPI Psychiatric: Reports as per HPI Endocrine: Reports as per HPI Hematologic/Lymphatic: Reports as per HPI Allergic/Immunologic: Reports as per HPI Past Medical History Past Medical History: Cancer, COPD, GERD/Reflux, Hyperlipidemia, Hypertension, Prostate Disorder Additional Past Medical History / Comment(s): cancerous polyp post-colectomy, BPH, chronic kidney disease, hypertension, hyperlipidemia, COPD, hemorrhoids, restless leg syndrome History of Any Multi-Drug Resistant Organisms: None Reported Past Surgical History: Appendectomy, Orthopedic Surgery Additional Past Surgical History / Comment(s): ACL SX RT KNEE X3, LEFT HEEL FUSION, LEFT ARM BICEP SX, NASAL SX R/T ULCER, colon resection, COLONOSCOPY, Past Anesthesia/Blood Transfusion Reactions: No Reported Reaction Past Psychological History: Anxiety, Depression Smoking Status: Current every day smoker Past Alcohol Use History: None Reported Additional Past Alcohol Use History / Comment(s): STARTED AGE 19, SMOKES 1PPD Past Drug Use History: None Reported - Past Family History Mother Family Medical History: Cancer Additional Family Medical History / Comment(s): BREAST Sister(s) Family Medical History: Deep Vein Thrombosis (DVT) Father Family Medical History: COPD Additional Family Medical History / Comment(s): FROM CARDIAC ARREST Medications and Allergies Home Medications Medication Instructions Recorded Confirmed Type Amitriptyline HCl [Elavil] 100 mg PO HS 06/04/16 06/08/20 History Cholecalciferol [Vitamin D3 (25 1,000 unit PO DAILY 06/04/16 06/08/20 History Mcg = 1000 Iu)] Mirtazapine [Remeron] 45 mg PO HS 06/04/16 06/08/20 History Simvastatin [Zocor] 20 mg PO HS 06/04/16 06/08/20 History Tamsulosin [Flomax] 0.4 mg PO DAILY 06/04/16 06/08/20 History amLODIPine [Norvasc] 10 mg PO DAILY 06/04/16 06/08/20 History clonazePAM [KlonoPIN] 1 mg PO BID 06/04/16 06/08/20 History Albuterol Inhaler [Ventolin Hfa 1 puff INHALATION RT-QID PRN 06/08/20 06/08/20 History Inhaler] Budesonide/Formoterol Fumarate 2 puff INHALATION RT-BID 06/08/20 06/08/20 History [Symbicort 160-4.5 Mcg Inhaler] Docusate [Colace] 200 mg PO DAILY 06/08/20 06/08/20 History Famotidine [Pepcid] 20 mg PO BID PRN 06/08/20 06/08/20 History Melatonin 3 mg PO HS 06/08/20 06/08/20 History Metoprolol Tartrate [Lopressor] 75 mg PO DAILY 06/08/20 06/08/20 History Metoprolol Tartrate [Lopressor] 100 mg PO HS 06/08/20 06/08/20 History Multivitamins, Thera [Multivitamin 1 tab PO DAILY 06/08/20 06/08/20 History (formulary)] hydrOXYzine HCL [Atarax] 25 mg PO BID PRN 06/08/20 06/08/20 History polyethylene glycoL 3350 [Miralax] 17 gm PO DAILY 06/08/20 06/08/20 History Allergies Allergy/AdvReac Type Severity Reaction Status Date / Time lisinopril Allergy swollen Verified 06/08/20 19:39 testicle,rash morphine AdvReac Nausea & Verified 06/08/20 19:39 Vomiting Physical Exam Vitals: Vital Signs Temp Pulse Resp BP Pulse Ox 06/09/20 12:00 97.5 F L 90 19 143/92 90 L 06/09/20 11:00 99 20 158/89 90 L 06/09/20 10:00 92 19 157/92 90 L 06/09/20 09:00 96 20 166/93 95 06/09/20 08:00 97.6 F 90 20 171/89 99 06/09/20 07:00 87 11 L 165/94 98 06/09/20 06:00 85 20 156/96 96 06/09/20 05:00 86 17 153/82 93 L 06/09/20 04:00 98.5 F 76 16 154/87 92 L 06/09/20 03:00 78 16 147/87 93 L 06/09/20 02:00 78 24 144/90 95 06/09/20 01:00 75 16 153/97 93 L 06/09/20 00:00 98.4 F 84 24 154/91 91 L 06/08/20 20:15 86 20 128/96 99 06/08/20 19:30 86 20 128/96 99 06/08/20 19:00 84 23 128/82 98 06/08/20 18:51 88 22 155/106 98 06/08/20 18:30 89 25 H 160/91 92 L 06/08/20 18:10 85 06/08/20 18:00 84 19 164/93 83 L 06/08/20 17:30 84 19 143/105 06/08/20 17:28 82 22 155/95 06/08/20 17:26 89 L 06/08/20 17:22 86 22 143/105 85 L Intake and Output 06/08/20 06/09/20 06/09/20 22:59 06:59 14:59 Intake Total 470 60 Output Total 535 660 7619 Balance - Intake: IV 70 60 .9 NS 70 60 Oral 400 Output: Urine 222 465 9045 Other: Voiding Method Indwelling Catheter Indwelling Catheter Weight 62.8 kg 62.8 kg Gen. appearance, comfortable likely distress, taken off the BiPAP and the patient is currently on 6 L by nasal cannula Head exam was generally normal. There was no scleral icterus or corneal arcus. Mucous membranes were moist. Neck was supple and without jugular venous distension, thyromegaly, or carotid bruits. Carotids were easily palpable bilaterally. There was no adenopathy. Lungs sounds are diminished along with some minimal crackles in lung bases bilaterally along with some few scattered expiratory wheezes Cardiac exam revealed the PMI to be normally situated and sized. The rhythm was regular and no extrasystoles were noted during several minutes of auscultation. The first and second heart sounds were normal and physiologic splitting of the second heart sound was noted. There were no murmurs, rubs, clicks, or gallops. Overall heart sounds are quite distended this point in time. Abdominal exam revealed normal bowel sounds. The abdomen was soft, non-tender, and without masses, organomegaly, or appreciable enlargement of the abdominal aorta. Examination of the extremities revealed easily palpable radial, femoral and pedal pulses. There was no cyanosis, clubbing or edema. Examination of the skin revealed no evidence of significant rashes, suspicious appearing nevi or other concerning lesions. Neurologically the patient is awake and alert and is no focal neurological deficit. Results - Laboratory Findings CBC and BMP: 06/09/20 04:52 06/09/20 04:52 ABG ABG pH 7.42 (7.35-7.45) 06/08/20 18:26 ABG pCO2 34 mmHg (35-45) L 06/08/20 18:26 ABG pO2 56 mmHg (83-108) L* 06/08/20 18:26 ABG O2 Saturation 88.3 % (94-97) L 06/08/20 18:26 PT/INR, D-dimer PT 10.3 sec (9.0-12.0) 06/08/20 17:32 INR 1.0 (<1.2) 06/08/20 17:32 D-Dimer 1.25 mg/L FEU (<0.60) H 06/08/20 17:32 Abnormal lab findings: Abnormal Labs 06/08/20 06/08/20 06/08/20 17:32 17:32 17:32 WBC 11.7 H RBC Hgb 12.9 L Hct Neutrophils # 8.8 H Lymphocytes # APTT D-Dimer 1.25 H ABG pCO2 ABG pO2 ABG O2 Saturation Sodium 135 L Carbon Dioxide 20 L BUN 21 H Creatinine 2.60 H Glucose 125 H POC Glucose (mg/dL) Magnesium 2.6 H Troponin I 06/08/20 06/08/20 06/09/20 18:26 20:34 01:51 WBC RBC Hgb Hct Neutrophils # Lymphocytes # APTT 47.5 H D-Dimer ABG pCO2 34 L ABG pO2 56 L* ABG O2 Saturation 88.3 L Sodium Carbon Dioxide BUN Creatinine Glucose POC Glucose (mg/dL) 170 H Magnesium Troponin I 06/09/20 06/09/20 06/09/20 04:52 04:52 04:52 WBC 13.7 H RBC 4.09 L Hgb 11.7 L Hct 36.8 L Neutrophils # 12.5 H Lymphocytes # 0.9 L APTT 49.9 H D-Dimer ABG pCO2 ABG pO2 ABG O2 Saturation Sodium Carbon Dioxide BUN 26 H Creatinine 2.71 H Glucose 154 H POC Glucose (mg/dL) Magnesium 2.4 H Troponin I 06/09/20 08:16 WBC RBC Hgb Hct Neutrophils # Lymphocytes # APTT D-Dimer ABG pCO2 ABG pO2 ABG O2 Saturation Sodium Carbon Dioxide BUN Creatinine Glucose POC Glucose (mg/dL) Magnesium Troponin I 0.055 H* - Diagnostic Findings Chest x-ray: image reviewed Assessment and Plan Plan: 1 acute hypoxic respiratory failure, initially placed on BiPAP and subsequently transitioned to 6 L of oxygen by nasal cannula. Chest x-ray is consistent with CHF and the patient has a minimal troponin leak of 0.05 troponin max. The patient has no acute EKG abnormalities. Pulmonary embolism is doubtful. 2 acute hematuria, traumatic and the patient was seen by urology and a Ceballos catheter in place 3 chronic kidney disease, stage 3-4 4 hypertension 5 hyperlipidemia 6 COPD, maintained on Symbicort and Ventolin on a when necessary basis 7 chronic anxiety/depression Plan Obtain an echocardiogram to assess LV function Stop IV nitroglycerin Stop IV heparin for now Monitor hematuria Monitor hemoglobin Procedures Doppler of the lower extremity the VQ scan with a low suspicion for pulmonary embolism Continue diuretics Stop the BiPAP and put the patient on oxygen at 6 L Awaiting Covid 19 evaluation by PCR Ultrasound the kidneys to rule out hydronephrosis Resume home medications We'll continue to follow
--- NOTE | 2020-06-09 13:41 | P.HPIM ---
History of Present Illness This is a pleasant 69 years old male with past medical history of colon cancer, kidney disease, COPD, GERD, hyperlipidemia, hypertension, enlarged prostate. When I saw the patient today he was poor historian and could not provide me much information, he thought he is at his apartment but continuous poor [place] he notes 06/09/2020, he did not know the name of the president. Upper staff he was more oriented this morning, probably patient has acute delirium due to his illness and the pain medication he got earlier. As per documentation patient admitted for dyspnea for 2-3 days associated with ongoing cough for several months but no chest pain or abdominal pain, even when I talked to the patient he denies to me any pain. He was breathing quietly however he is on 6 L oxygen via nasal cannula to His oxygen saturation at 90%. Risks of vitals looks stable and he is afebrile. He uses BiPAP as needed during night. Other Vital signs stable. On admission he was hypoxic with oxygen saturation at 83%. He has mild leukocytosis of 13.7 K, hemoglobin 11.7, platelet is normal, d-dimer is elevated at 1.25, ABG showing normal pH of 7.4, low pCO2 of 34 and low pO2 at 56. Elevated creatinine 2.6 and 2.7, baseline 1.1-1.3. Liver enzymes not elevated CHF, cannot exclude pneumonia or interstitial disease. EKG showing normal sinus rhythm at [address] depression on the lateral limits. QTC 506. Venous ultrasound is ultrasound is negative for DVT in both legs. Gallbladder ultrasound: Possible mild right hydronephrosis, no stone, atrophy left kidney He was started on heparin drip. Which was stopped later by practicing urologist Overnight patient pulled his Ceballos catheter however it is still in place what with hematuria, and urology team is consulted V/Q scan and echocardiogram were ordered. His Ceballos catheter is clearing up his urine and becoming less reddish Review of Systems CONSTITUTIONAL: No fever, no malaise, no fatigue. HEENT: No recent visual problems or hearing problems. Denied any sore throat. CARDIOVASCULAR: No orthopnea, PND, no palpitations, no syncope. PULMONARY: No shortness of breath, no cough, no hemoptysis. GASTROINTESTINAL: No diarrhea, no nausea, no vomiting, no abdominal pain. Normoactive bowel sounds. NEUROLOGICAL: No headaches, no weakness, no numbness. HEMATOLOGICAL: Denies any bleeding or petechiae. GENITOURINARY: Denies any burning micturition, frequency, or urgency. MUSCULOSKELETAL/RHEUMATOLOGICAL: Denies any joint pain, swelling, or any muscle pain. ENDOCRINE: Denies any polyuria or polydipsia. Past Medical History Past Medical History: Cancer, COPD, GERD/Reflux, Hyperlipidemia, Hypertension, P rostate Disorder Additional Past Medical History / Comment(s): cancerous polyp,enlarged prostate,HEMORRHOIDS, BLOOD IN STOOL, RESTLESS LEG - intermittent, colon Cancer History of Any Multi-Drug Resistant Organisms: None Reported Past Surgical History: Appendectomy, Orthopedic Surgery Additional Past Surgical History / Comment(s): ACL SX RT KNEE X3, LEFT HEEL FUSION, LEFT ARM BICEP SX, NASAL SX R/T ULCER, colon resection, COLONOSCOPY, Past Anesthesia/Blood Transfusion Reactions: No Reported Reaction Past Psychological History: Anxiety, Depression Smoking Status: Current every day smoker Past Alcohol Use History: None Reported Additional Past Alcohol Use History / Comment(s): STARTED AGE 19, SMOKES 1PPD Past Drug Use History: None Reported - Past Family History Mother Family Medical History: Cancer Additional Family Medical History / Comment(s): BREAST Sister(s) Family Medical History: Deep Vein Thrombosis (DVT) Father Family Medical History: COPD Additional Family Medical History / Comment(s): FROM CARDIAC ARREST Medications and Allergies Home Medications Medication Instructions Recorded Confirmed Type Amitriptyline HCl [Elavil] 100 mg PO HS 06/04/16 06/08/20 History Cholecalciferol [Vitamin D3 (25 1,000 unit PO DAILY 06/04/16 06/08/20 History Mcg = 1000 Iu)] Mirtazapine [Remeron] 45 mg PO HS 06/04/16 06/08/20 History Simvastatin [Zocor] 20 mg PO HS 06/04/16 06/08/20 History Tamsulosin [Flomax] 0.4 mg PO DAILY 06/04/16 06/08/20 History amLODIPine [Norvasc] 10 mg PO DAILY 06/04/16 06/08/20 History clonazePAM [KlonoPIN] 1 mg PO BID 06/04/16 06/08/20 History Albuterol Inhaler [Ventolin Hfa 1 puff INHALATION RT-QID PRN 06/08/20 06/08/20 History Inhaler] Budesonide/Formoterol Fumarate 2 puff INHALATION RT-BID 06/08/20 06/08/20 History [Symbicort 160-4.5 Mcg Inhaler] Docusate [Colace] 200 mg PO DAILY 06/08/20 06/08/20 History Famotidine [Pepcid] 20 mg PO BID PRN 06/08/20 06/08/20 History Melatonin 3 mg PO HS 06/08/20 06/08/20 History Metoprolol Tartrate [Lopressor] 75 mg PO DAILY 06/08/20 06/08/20 History Metoprolol Tartrate [Lopressor] 100 mg PO HS 06/08/20 06/08/20 History Multivitamins, Thera [Multivitamin 1 tab PO DAILY 06/08/20 06/08/20 History (formulary)] hydrOXYzine HCL [Atarax] 25 mg PO BID PRN 06/08/20 06/08/20 History polyethylene glycoL 3350 [Miralax] 17 gm PO DAILY 06/08/20 06/08/20 History Allergies Allergy/AdvReac Type Severity Reaction Status Date / Time lisinopril Allergy swollen Verified 06/08/20 19:39 testicle,rash morphine AdvReac Nausea & Verified 06/08/20 19:39 Vomiting Physical Exam Vitals: Vital Signs Temp Pulse Resp BP Pulse Ox 06/09/20 07:00 87 11 L 165/94 98 06/09/20 06:00 85 20 156/96 96 06/09/20 05:00 86 17 153/82 93 L 06/09/20 04:00 98.5 F 76 16 154/87 92 L 06/09/20 03:00 78 16 147/87 93 L 06/09/20 02:00 78 24 144/90 95 06/09/20 01:00 75 16 153/97 93 L 06/09/20 00:00 98.4 F 84 24 154/91 91 L 06/08/20 20:15 86 20 128/96 99 06/08/20 19:30 86 20 128/96 99 06/08/20 19:00 84 23 128/82 98 06/08/20 18:51 88 22 155/106 98 06/08/20 18:30 89 25 H 160/91 92 L 06/08/20 18:10 85 06/08/20 18:00 84 19 164/93 83 L 06/08/20 17:30 84 19 143/105 06/08/20 17:28 82 22 155/95 06/08/20 17:26 89 L 06/08/20 17:22 86 22 143/105 85 L Intake and Output 06/08/20 06/09/20 06/09/20 22:59 06:59 14:59 Intake Total 440 Output Total 600 485 Balance -600 -45 Intake: IV 40 .9 NS 40 Oral 400 Output: Urine 600 485 Other: Voiding Method Indwelling Catheter Indwelling Catheter Weight 62.8 kg GENERAL: The patient is alert and oriented x3, not in any acute distress. Well developed, well nourished. HEENT: Pupils are round and equally reacting to light. EOMI. No scleral icterus. No conjunctival pallor. Normocephalic, atraumatic. No pharyngeal erythema. No thyromegaly. CARDIOVASCULAR: S1 and S2 present. No murmurs, rubs, or gallops. -PULMONARY: Chest is clear to auscultation, no wheezing. Bilateral basal crepitation -ABDOMEN: Soft, nontender, nondistended, normoactive bowel sounds. No palpable organomegaly. Ceballos catheter is in place MUSCULOSKELETAL: No joint swelling or deformity. EXTREMITIES: No cyanosis, clubbing, or pedal edema. NEUROLOGICAL: Gross neurological examination did not reveal any focal deficits. SKIN: No rashes. No petechiae Results CBC & Chem 7: 06/09/20 04:52 06/09/20 04:52 Labs: Abnormal Lab Results - Last 24 Hours (Table) 06/08/20 06/08/20 06/08/20 Range/Units 17:32 17:32 17:32 WBC 11.7 H (3.8-10.6) k/uL RBC (4.30-5.90) m/uL Hgb 12.9 L (13.0-17.5) gm/dL Hct (39.0-53.0) % Neutrophils # 8.8 H (1.3-7.7) k/uL Lymphocytes # (1.0-4.8) k/uL APTT (22.0-30.0) sec D-Dimer 1.25 H (<0.60) mg/L FEU ABG pCO2 (35-45) mmHg ABG pO2 (83-108) mmHg ABG O2 Saturation (94-97) % Sodium 135 L (137-145) mmol/L Carbon Dioxide 20 L (22-30) mmol/L BUN 21 H (9-20) mg/dL Creatinine 2.60 H (0.66-1.25) mg/dL Glucose 125 H (74-99) mg/dL POC Glucose (mg/dL) (75-99) mg/dL Magnesium 2.6 H (1.6-2.3) mg/dL 06/08/20 06/08/20 06/09/20 Range/Units 18:26 20:34 01:51 WBC (3.8-10.6) k/uL RBC (4.30-5.90) m/uL Hgb (13.0-17.5) gm/dL Hct (39.0-53.0) % Neutrophils # (1.3-7.7) k/uL Lymphocytes # (1.0-4.8) k/uL APTT 47.5 H (22.0-30.0) sec D-Dimer (<0.60) mg/L FEU ABG pCO2 34 L (35-45) mmHg ABG pO2 56 L* (83-108) mmHg ABG O2 Saturation 88.3 L (94-97) % Sodium (137-145) mmol/L Carbon Dioxide (22-30) mmol/L BUN (9-20) mg/dL Creatinine (0.66-1.25) mg/dL Glucose (74-99) mg/dL POC Glucose (mg/dL) 170 H (75-99) mg/dL Magnesium (1.6-2.3) mg/dL 06/09/20 06/09/20 06/09/20 Range/Units 04:52 04:52 04:52 WBC 13.7 H (3.8-10.6) k/uL RBC 4.09 L (4.30-5.90) m/uL Hgb 11.7 L (13.0-17.5) gm/dL Hct 36.8 L (39.0-53.0) % Neutrophils # 12.5 H (1.3-7.7) k/uL Lymphocytes # 0.9 L (1.0-4.8) k/uL APTT 49.9 H (22.0-30.0) sec D-Dimer (<0.60) mg/L FEU ABG pCO2 (35-45) mmHg ABG pO2 (83-108) mmHg ABG O2 Saturation (94-97) % Sodium (137-145) mmol/L Carbon Dioxide (22-30) mmol/L BUN 26 H (9-20) mg/dL Creatinine 2.71 H (0.66-1.25) mg/dL Glucose 154 H (74-99) mg/dL POC Glucose (mg/dL) (75-99) mg/dL Magnesium 2.4 H (1.6-2.3) mg/dL Thrombosis Risk Factor Assmnt - Choose All That Apply Each Factor Represents 1 point: Heart failure (<1month) Each Risk Factor Represents 2 Points: Age 61-74 years Thrombosis Risk Factor Assessment Total Risk Factor Score: 3 Thrombosis Risk Factor Assessment Level: Moderate Risk Assessment and Plan Assessment: Acute on chronic systolic CHF Acute hypoxic respiratory failure Metabolic encephalopathy, mostly secondary to above and also due to his renal failure Elevated d-dimer, rule out PE Acute kidney injury Acute hematuria, related to traumatic injury from Pulling Ceballos catheter . Renal ultrasound: Mild right hydronephrosis and atrophic left kidney Hypertension Hyperlipidemia GERD COPD, no acute process History of colon cancer, Enlarged prostate Plan: This is a pleasant 69 male who presents with acute CHF, continue with Lasix, monitor creatinine and electrolytes, continue with heparin drip (heparin drip was stopped by practicing urologist and instructed to put it back if his next troponin comes back elevated), monitor hemoglobin. Check VQ scan in view of high d- dimer, check echocardiogram. cardiology and pulmonary/critical care consult. Neurology evaluated the patient. Labs and medication were reviewed.. Continue same treatment. Continue with symptomatic treatment. Resume home medication. Monitor lytes and vitals. DVT and GI prophylaxis. Further recommendations of the clinical course of the patient DVT prophylaxis: heparin GI Prophylaxis: Pepcid PT/OT: Pending Prognosis is guarded
--- NOTE | 2020-06-09 14:37 | ECHOF ---
Referral Reason:CHF MEASUREMENTS -------- HEIGHT: 157.5 cm WEIGHT: 68.0 kg BP: IVSd: 1.0 cm (0.6 - 1.1) LVIDd: 5.7 cm (3.9 - 5.3) LVPWd: 1.2 cm (0.6 - 1.1) IVSs: 1.3 cm LVIDs: 4.9 cm LVPWs: 1.3 cm LA Diam: 5.3 cm (2.7 - 3.8) RVIDd: 3.7 cm (< 3.3) LAESV Index (A-L): 51.60 ml/m Ao Diam: 2.7 cm (2.0 - 3.7) EPSS: 2.9 cm MV E Berry: 0.57 m/s MV DecT: 68 ms MV A Berry: 0.38 m/s MV E/A Ratio: 1.50 RAP: 5.00 mmHg RVSP: 19.00 mmHg MV EF SLOPE: 103.20 mm/s (70 - 150) MV EXCURSION: 19.15 mm (> 18.000) FINDINGS -------- Sinus rhythm. This was a technically good study. The left ventricular size is normal. Left ventricular wall thickness is normal. Overall left vent ricular systolic function is severely impaired with, an EF between 20 - 25 %. The right ventricle is normal in size. The left atrium is markedly dilated. LA is severely dilated >40 ml/m2 The right atrial size is normal. The aortic valve is trileaflet, and appears structurally normal. No aortic stenosis or regurgitation. Moderate mitral regurgitation is present. Mild tricuspid regurgitation present. Right ventricular systolic pressure is normal at < 35 mmHg. Trace/mild (physiologic) pulmonic regurgitation. The aortic root size is normal. There is no pericardial effusion. CONCLUSIONS -------- 1. The left ventricular size is normal. 2. Left ventricular wall thickness is normal. 3. Overall left ventricular systolic function is severely impaired with, an EF between 20 - 25 %. 4. The right ventricle is normal in size. 5. The left atrium is markedly dilated. 6. LA is severely dilated >40 ml/m2 7. The right atrial size is normal. 8. Moderate mitral regurgitation is present. 9. Mild tricuspid regurgitation present. 10. Right ventricular systolic pressure is normal at < 35 mmHg. 11. Trace/mild (physiologic) pulmonic regurgitation. BRONZER: Irma Cho RDCS
--- NOTE | 2020-06-09 14:52 | NM ---
EXAMINATION TYPE: NM pul vent and perfuse DATE OF EXAM: 06/09/2020 COMPARISON: NONE HISTORY: Elevated d-dimer TECHNIQUE: Utilizing inhalation of 70.6 mCi Tc 99m DTPA aerosol and intravenous injection of 5.2 mCi of Tc 99m MAA, ventilation and perfusion images are acquired post injection in multiple projections. FINDINGS: There is central accumulation of radiotracer compatible with COPD. One or 2 small matched ventilation /perfusion defects are seen. No evidence for perfusion mismatch at this time. IMPRESSION: Low probability for pulmonary embolism.
[2020-06-09] MEDS ORDERED: FAMOTIDINE 20 MG TAB PO PRN (15:21)
--- NOTE | 2020-06-09 15:55 | P.GSCN ---
History of Present Illness Consult date: 06/09/20 History of present illness: Mr Child is a 69-year-old male with multiple comorbidity. He was admitted to the hospital with exertional dyspnea. He was subsequently placed on heparin drip for possible PE. He was confused this am and he pulled his wynn catheter. subsquently he had significant hematuria. Wynn catheter was reinserted and was clotted. Additional attempt to place a wynn were unsuccessful. On evaluation he denies any hx of urinary issues, urinary retention or previous wynn placement. Review of Systems - Constitutional Denies chills, Denies fever, Denies weight loss - Cardiovascular Reports dyspnea on exertion, Reports shortness of breath, Denies chest pain - Respiratory Reports dyspnea, Denies cough - Gastrointestinal Reports abdominal pain, Reports nausea, Reports vomiting - Genitourinary Reports hematuria, Denies dysuria, Denies flank pain - Neurological Denies weakness Past Medical History Past Medical History: Cancer, COPD, GERD/Reflux, Hyperlipidemia, Hypertension, Prostate Disorder Additional Past Medical History / Comment(s): cancerous polyp,enlarged prostate,HEMORRHOIDS, BLOOD IN STOOL, RESTLESS LEG - intermittent, colon Cancer History of Any Multi-Drug Resistant Organisms: None Reported Past Surgical History: Appendectomy, Orthopedic Surgery Additional Past Surgical History / Comment(s): ACL SX RT KNEE X3, LEFT HEEL FUSION, LEFT ARM BICEP SX, NASAL SX R/T ULCER, colon resection, COLONOSCOPY, Past Anesthesia/Blood Transfusion Reactions: No Reported Reaction Past Psychological History: Anxiety, Depression Smoking Status: Current every day smoker Past Alcohol Use History: None Reported Additional Past Alcohol Use History / Comment(s): STARTED AGE 19, SMOKES 1PPD Past Drug Use History: None Reported - Past Family History Mother Family Medical History: Cancer Additional Family Medical History / Comment(s): BREAST Sister(s) Family Medical History: Deep Vein Thrombosis (DVT) Father Family Medical History: COPD Additional Family Medical History / Comment(s): FROM CARDIAC ARREST Medications and Allergies Home Medications Medication Instructions Recorded Confirmed Type Amitriptyline HCl [Elavil] 100 mg PO HS 06/04/16 06/08/20 History Cholecalciferol [Vitamin D3 (25 1,000 unit PO DAILY 06/04/16 06/08/20 History Mcg = 1000 Iu)] Mirtazapine [Remeron] 45 mg PO HS 06/04/16 06/08/20 History Simvastatin [Zocor] 20 mg PO HS 06/04/16 06/08/20 History Tamsulosin [Flomax] 0.4 mg PO DAILY 06/04/16 06/08/20 History amLODIPine [Norvasc] 10 mg PO DAILY 06/04/16 06/08/20 History clonazePAM [KlonoPIN] 1 mg PO BID 06/04/16 06/08/20 History Albuterol Inhaler [Ventolin Hfa 1 puff INHALATION RT-QID PRN 06/08/20 06/08/20 History Inhaler] Budesonide/Formoterol Fumarate 2 puff INHALATION RT-BID 06/08/20 06/08/20 History [Symbicort 160-4.5 Mcg Inhaler] Docusate [Colace] 200 mg PO DAILY 06/08/20 06/08/20 History Famotidine [Pepcid] 20 mg PO BID PRN 06/08/20 06/08/20 History Melatonin 3 mg PO HS 06/08/20 06/08/20 History Metoprolol Tartrate [Lopressor] 75 mg PO DAILY 06/08/20 06/08/20 History Metoprolol Tartrate [Lopressor] 100 mg PO HS 06/08/20 06/08/20 History Multivitamins, Thera [Multivitamin 1 tab PO DAILY 06/08/20 06/08/20 History (formulary)] hydrOXYzine HCL [Atarax] 25 mg PO BID PRN 06/08/20 06/08/20 History polyethylene glycoL 3350 [Miralax] 17 gm PO DAILY 06/08/20 06/08/20 History Allergies Allergy/AdvReac Type Severity Reaction Status Date / Time lisinopril Allergy swollen Verified 06/08/20 19:39 testicle,rash morphine AdvReac Nausea & Verified 06/08/20 19:39 Vomiting Surgical - Exam Vital Signs Pulse Resp BP Pulse Ox 86 22 143/105 85 L 06/08/20 17:22 06/08/20 17:22 06/08/20 17:22 06/08/20 17:22 - General well developed, well nourished, no distress, moderate distress, severe pain - ENT normal mucosa, no no hearing loss ((+) hearing loss ) - Respiratory normal expansion, normal respiratory effort - Abdomen Abdomen: tender, distended - Psychiatric oriented to time, oriented to person, oriented to place, speech is normal Results - Labs 06/09/20 04:52 06/09/20 04:52 Abnormal Lab Results - Last 24 Hours (Table) 06/08/20 06/08/20 06/08/20 Range/Units 17:32 17:32 17:32 WBC 11.7 H (3.8-10.6) k/uL RBC (4.30-5.90) m/uL Hgb 12.9 L (13.0-17.5) gm/dL Hct (39.0-53.0) % Neutrophils # 8.8 H (1.3-7.7) k/uL Lymphocytes # (1.0-4.8) k/uL APTT (22.0-30.0) sec D-Dimer 1.25 H (<0.60) mg/L FEU ABG pCO2 (35-45) mmHg ABG pO2 (83-108) mmHg ABG O2 Saturation (94-97) % Sodium 135 L (137-145) mmol/L Carbon Dioxide 20 L (22-30) mmol/L BUN 21 H (9-20) mg/dL Creatinine 2.60 H (0.66-1.25) mg/dL Glucose 125 H (74-99) mg/dL POC Glucose (mg/dL) (75-99) mg/dL Magnesium 2.6 H (1.6-2.3) mg/dL Troponin I (0.000-0.034) ng/mL 06/08/20 06/08/20 06/09/20 Range/Units 18:26 20:34 01:51 WBC (3.8-10.6) k/uL RBC (4.30-5.90) m/uL Hgb (13.0-17.5) gm/dL Hct (39.0-53.0) % Neutrophils # (1.3-7.7) k/uL Lymphocytes # (1.0-4.8) k/uL APTT 47.5 H (22.0-30.0) sec D-Dimer (<0.60) mg/L FEU ABG pCO2 34 L (35-45) mmHg ABG pO2 56 L* (83-108) mmHg ABG O2 Saturation 88.3 L (94-97) % Sodium (137-145) mmol/L Carbon Dioxide (22-30) mmol/L BUN (9-20) mg/dL Creatinine (0.66-1.25) mg/dL Glucose (74-99) mg/dL POC Glucose (mg/dL) 170 H (75-99) mg/dL Magnesium (1.6-2.3) mg/dL Troponin I (0.000-0.034) ng/mL 06/09/20 06/09/20 06/09/20 Range/Units 04:52 04:52 04:52 WBC 13.7 H (3.8-10.6) k/uL RBC 4.09 L (4.30-5.90) m/uL Hgb 11.7 L (13.0-17.5) gm/dL Hct 36.8 L (39.0-53.0) % Neutrophils # 12.5 H (1.3-7.7) k/uL Lymphocytes # 0.9 L (1.0-4.8) k/uL APTT 49.9 H (22.0-30.0) sec D-Dimer (<0.60) mg/L FEU ABG pCO2 (35-45) mmHg ABG pO2 (83-108) mmHg ABG O2 Saturation (94-97) % Sodium (137-145) mmol/L Carbon Dioxide (22-30) mmol/L BUN 26 H (9-20) mg/dL Creatinine 2.71 H (0.66-1.25) mg/dL Glucose 154 H (74-99) mg/dL POC Glucose (mg/dL) (75-99) mg/dL Magnesium 2.4 H (1.6-2.3) mg/dL Troponin I (0.000-0.034) ng/mL 06/09/20 Range/Units 08:16 WBC (3.8-10.6) k/uL RBC (4.30-5.90) m/uL Hgb (13.0-17.5) gm/dL Hct (39.0-53.0) % Neutrophils # (1.3-7.7) k/uL Lymphocytes # (1.0-4.8) k/uL APTT (22.0-30.0) sec D-Dimer (<0.60) mg/L FEU ABG pCO2 (35-45) mmHg ABG pO2 (83-108) mmHg ABG O2 Saturation (94-97) % Sodium (137-145) mmol/L Carbon Dioxide (22-30) mmol/L BUN (9-20) mg/dL Creatinine (0.66-1.25) mg/dL Glucose (74-99) mg/dL POC Glucose (mg/dL) (75-99) mg/dL Magnesium (1.6-2.3) mg/dL Troponin I 0.055 H* (0.000-0.034) ng/mL Diabetes panel 06/08/20 06/09/20 Range/Units 17:32 04:52 Sodium 135 L 138 (137-145) mmol/L Potassium 4.7 4.0 (3.5-5.1) mmol/L Chloride 106 105 (98-107) mmol/L Carbon Dioxide 20 L 22 (22-30) mmol/L BUN 21 H 26 H (9-20) mg/dL Creatinine 2.60 H 2.71 H (0.66-1.25) mg/dL Glucose 125 H 154 H (74-99) mg/dL Calcium 9.0 8.8 (8.4-10.2) mg/dL AST 33 (17-59) U/L ALT 30 (4-49) U/L Alkaline Phosphatase 92 (38-126) U/L Total Protein 7.4 (6.3-8.2) g/dL Albumin 4.3 (3.5-5.0) g/dL Calcium panel 06/08/20 06/09/20 Range/Units 17:32 04:52 Calcium 9.0 8.8 (8.4-10.2) mg/dL Albumin 4.3 (3.5-5.0) g/dL Pituitary panel 06/08/20 06/09/20 Range/Units 17:32 04:52 Sodium 135 L 138 (137-145) mmol/L Potassium 4.7 4.0 (3.5-5.1) mmol/L Chloride 106 105 (98-107) mmol/L Carbon Dioxide 20 L 22 (22-30) mmol/L BUN 21 H 26 H (9-20) mg/dL Creatinine 2.60 H 2.71 H (0.66-1.25) mg/dL Glucose 125 H 154 H (74-99) mg/dL Calcium 9.0 8.8 (8.4-10.2) mg/dL Adrenal panel 06/08/20 06/09/20 Range/Units 17:32 04:52 Sodium 135 L 138 (137-145) mmol/L Potassium 4.7 4.0 (3.5-5.1) mmol/L Chloride 106 105 (98-107) mmol/L Carbon Dioxide 20 L 22 (22-30) mmol/L BUN 21 H 26 H (9-20) mg/dL Creatinine 2.60 H 2.71 H (0.66-1.25) mg/dL Glucose 125 H 154 H (74-99) mg/dL Calcium 9.0 8.8 (8.4-10.2) mg/dL Total Bilirubin 0.8 (0.2-1.3) mg/dL AST 33 (17-59) U/L ALT 30 (4-49) U/L Alkaline Phosphatase 92 (38-126) U/L Total Protein 7.4 (6.3-8.2) g/dL Albumin 4.3 (3.5-5.0) g/dL Assessment and Plan Assessment: This is a 69-year-old male with exertional dyspnea. Pulled his wynn traumatically with significant hematuria. Unable to place wynn. Currently in heparin drip for R/O PE Plan: -Wynn was placed with cystoscope over a wire. -Irrigate PRN if hematuric -Ceftrixone 1g X3 days -Keep Wynn for 10 days, call urology prior to wynn removal
--- NOTE | 2020-06-09 16:02 | P.PCN ---
Date of Procedure: 06/09/20 Preoperative Diagnosis: Urethral false passage Postoperative Diagnosis: same Procedure(s) Performed: Cystoscopy with wynn placement over a wire Implants: none Anesthesia: local Surgeon: Muary Hale Estimated Blood Loss (ml): 20 Pathology: none sent Condition: stable Disposition: ICU Indications for Procedure: 69 yo male with significant hematuria after traumatic wynn removal. Unable to pass wynn, Decesion was made to proceed with Wynn placement over a wire Description of Procedure: Flexible cystoscope was inserted per urethra, the scope was advanced up to the bulbar urethra and then into the prostate. At this time large false passage was noticed along the ventral aspect of the prostatic urethra. there was significant tearing to the prostate secondary to traumatic wynn removal. There was significant blood clot within the urethra which made visualization very difficult. A true lumen was visualized scope was advanced through true lumen and into the bladder. there was hematuric urine that was noticed in bladder. At this time a sensor wire was advanced through the scope and into the bladder. The scope was withdrawn with the wire in place. I attempted to pass hematuria catheter over the wire but resistance was met at the prostate. At this time A 20-Greek sillicone catheter was advanced over the wire and into the bladder with return of light red urine The patient tolerated the procedure well, no complication during the procedure
[2020-06-09] MEDS: AMITRIPTYLINE HCL 50 MG TAB PO SCH (20:55)
[2020-06-09] MEDS: HEPARIN SODIUM,PORCINE 5,000 UNIT/ML 1 ML VIAL SQ SCH (20:55)
[2020-06-09] MEDS: METOPROLOL TARTRATE 50 MG TAB PO SCH (20:55)
[2020-06-09] MEDS: MIRTAZAPINE 45 MG TABLET PO SCH (20:55)
[2020-06-09] MEDS: MELATONIN 3 MG TABLET PO SCH (21:07)
[2020-06-10 05:00] LABS: Basophils % (A) 0 %; Eosinophils # (A) 0.2 k/uL (0-0.7); Eosinophils % (A) 1 %; Lymphocytes # (A) 2.4 k/uL (1.0-4.8); Lymphocytes % (A) 13 %; MCH 28.4 pg (25.0-35.0); MCHC 31.3 g/dL (31.0-37.0); MCV 90.6 fL (80.0-100.0); Mean Platelet Volume 6.9; Monocytes # (A) 0.7 k/uL (0-1.0); Monocytes % (A) 4 %; Neutrophils # (A) 14.6 k/uL (1.3-7.7); Neutrophils % (A) 81 %; Platelet Count 318 k/uL (150-450); RBC 3.86 m/uL (4.30-5.90); RDW 15.3 % (11.5-15.5)
[2020-06-10] MEDS: FUROSEMIDE 10 MG/ML 4 ML VIAL IV SCH ×2 (05:07→18:40)
[2020-06-10 05:12] LABS: Calcium 8.7 mg/dL (8.4-10.2); Magnesium 2.3 mg/dL (1.6-2.3); Potassium 3.7 mmol/L (3.5-5.1)
--- NOTE | 2020-06-10 07:38 | P.PN ---
Subjective Progress Note Date: 06/10/20 Principal diagnosis: Congestive heart failure secondary to systolic dysfunction This is a 69-year-old gentleman with a past medical history significant for hypertension, dyslipidemia, and chronic obstructive pulmonary disease as well as chronic renal failure presented to the emergency department complaining of shortness of breath. The patient somewhat is a poor historian. He stated that the shortness of breath started about 48 hours before he presented to the emergency department. He describes exertional dyspnea. No fever or chills or cough. He denies any symptoms of chest pain or chest discomfort, dizziness, heart racing, or syncope. No change in the weight. The patient does have history of COPD but he was not using an inhaler looks like it was prescribed to him in the past. Does not follow with any environmental journalist on regular basis. 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 EMS was right and the patient was brought to the emergency department. The chest x-ray when he presented to the hospital showed findings consistent with congestive heart failure. The BNP came in to be elevated at almost 30,000. The d-dimer was checked and came in to be elevated. No CTA of the chest or VQ scan performed but currently the patient is on heparin. The hemoglobin is within normal limits. The creatinine came in to be elevated around 2.7 and the patient's baseline creatinine is lower. The first set of troponin came in to be within normal limits. The patient was seen this morning, 06/10/2020. He is feeling better indeterminable shortness of breath. No symptoms of chest pain or chest discomfort. Hemodynamically he is stable beside being slightly tachycardic with a resting heart rate around 90 bpm. The VQ scan yesterday showed low probably the for PE. He is off the heparin since yesterday. Unfortunately the echo revealed severe cardiomyopathy with EF around 20% with moderate mitral regurgitation. Currently he is on metoprolol which I'm going to continue and also going to add Aldactone to the current medical regimen and also small dose of lisinopril. I would also consider adding aspirin to the current medical regimen. Unfortunately the creatinine still elevated. He needs to have a coronary angiogram once the creatinine is back to baseline. Objective - Vital Signs Vital signs: Vital Signs Temp 98.2 F 06/10/20 04:00 Pulse 93 06/10/20 07:00 Resp 22 06/10/20 07:00 BP 149/94 06/10/20 07:00 Pulse Ox 90 L 06/10/20 07:00 Intake & Output 06/09/20 06/10/20 06/10/20 18:59 06:59 18:59 Intake Total 70 350 Output Total 4760 9254 623 Balance -7298 -7363 -012 Weight 62.8 kg 63 kg Intake: IV 70 .9 NS 70 Oral 350 Output: Urine 7825 9465 225 Other: Voiding Method Indwelling Catheter Indwelling Catheter - Constitutional General appearance: Present: no acute distress - Respiratory Respiratory: bilateral: wheezing - Cardiovascular Rhythm: regular Heart sounds: normal: S1, S2 - Labs CBC & Chem 7: 06/10/20 04:24 06/10/20 04:24 Labs: Abnormal Lab Results - Last 24 Hours (Table) 06/09/20 06/09/20 06/09/20 Range/Units 08:16 15:03 19:36 WBC (3.8-10.6) k/uL RBC (4.30-5.90) m/uL Hgb (13.0-17.5) gm/dL Hct (39.0-53.0) % Neutrophils # (1.3-7.7) k/uL BUN (9-20) mg/dL Creatinine (0.66-1.25) mg/dL Glucose (74-99) mg/dL Troponin I 0.055 H* 0.041 H* 0.053 H* (0.000-0.034) ng/mL 06/10/20 06/10/20 Range/Units 04:24 04:24 WBC 18.0 H (3.8-10.6) k/uL RBC 3.86 L (4.30-5.90) m/uL Hgb 11.0 L (13.0-17.5) gm/dL Hct 35.0 L (39.0-53.0) % Neutrophils # 14.6 H (1.3-7.7) k/uL BUN 32 H (9-20) mg/dL Creatinine 2.42 H (0.66-1.25) mg/dL Glucose 100 H (74-99) mg/dL Troponin I (0.000-0.034) ng/mL Microbiology - Last 24 Hours (Table) 06/08/20 17:38 Blood Culture - Preliminary Blood No Growth after 24 hours Assessment and Plan Assessment: Assessment #1 acute hypoxic respiratory failure #2 congestive heart failure exacerbation secondary to systolic dysfunction #3 possible COPD exacerbation #4 component of heart failure exacerbation #5 hypertension #6 dyslipidemia #7 renal failure #8 multiple comorbid conditions Plan #1 continue the current dose of metoprolol #2 add Aldactone to the current medical regimen #3 add lisinopril to the current medical regimen #4 continue to monitor the kidney function and electrolytes #5 add aspirin to the current medical regimen
[2020-06-10] MEDS: methylPREDNISolone SOD SUCCI 125 MG/2 ML VIAL IV SCH ×3 (08:58→18:40)
[2020-06-10] MEDS: HEPARIN SODIUM,PORCINE 5,000 UNIT/ML 1 ML VIAL SQ SCH ×2 (08:58→20:32)
[2020-06-10] MEDS: clonazePAM 1 MG TAB PO SCH ×2 (08:59→20:31)
[2020-06-10] MEDS: SPIRONOLACTONE 25 MG TAB PO SCH (08:59)
[2020-06-10] MEDS: METOPROLOL TARTRATE 25 MG TAB PO SCH (08:59)
[2020-06-10] MEDS: TAMSULOSIN 0.4 MG CAP.ER.24H PO SCH (08:59)
[2020-06-10] MEDS: ASPIRIN 81 MG PO SCH (08:59)
[2020-06-10] MEDS: DOCUSATE 100 MG CAP PO SCH (08:59)
[2020-06-10] MEDS: amLODIPine 10 MG TAB PO SCH (08:59)
[2020-06-10] MEDS: SYMBICORT 160-4.5 MCG INHALER INHALATION SCH ×2 (09:12→19:51)
--- NOTE | 2020-06-10 09:19 | XR ---
EXAMINATION TYPE: XR chest 1V portable DATE OF EXAM: 06/10/2020 CLINICAL HISTORY: CHF TECHNIQUE: Semiupright portable view of the chest obtained COMPARISON: 06/09/2020 chest radiograph FINDINGS: Prominent cardiac silhouette. Decreased pulmonary vascular congestion and improved aeration of the bilateral lung bases versus . No pneumothorax. IMPRESSION: Decreased pulmonary vascular congestion and improved aeration of the bilateral lung bases versus 06/09/2020.
--- NOTE | 2020-06-10 13:08 | P.PN ---
Subjective Progress Note Date: 06/10/20 A 69-year-old male patient with known history of COPD and chronic kidney disease in addition to hypertension and hyperlipidemia who came into the hospital because of two-week history of progressive worsening exertional dyspnea along with some orthopnea. No lower extremity edema. Minimal cough. No significant sputum production. No hemoptysis. No pleurisy. No chest pain. No fever or chills. The patient came into the emergency department and the patient was quite short of breath. The patient was briefly placed on BiPAP at a pressure of 12/5 cm of water with an FiO2 of 50%. This morning he was still on BiPAP and I took him off and put him on oxygen at 4 L per minute nasal cannula. The patient had an elevated d-dimer of 2.7. A VQ scan was ordered and the patient was started on IV heparin considering the possibility of pulmonary embolism. Noted the chest x-ray showed bilateral pulmonary infiltrates most consistent with CHF. In any rate, and evaluation was started in the patient had an accidental traumatic pole of his Ceballos catheter which resulted in significant amount of hematuria for which urology was consulted and the Ceballos catheter was kept in place. No clots. No outflow obstruction secondary to bleeding. The patient did have some difficulty with urination as the catheter got plugged and ultimately this was rectified by the urologist. The patient remains on IV Lasix for now and is producing adequate amount of urine output. Echocardiogram is pending for now. ProBNP level is quite elevated. No altered mentation. No other complaints otherwise for now. 06/10/2020 the patient is feeling better compared to yesterday. Less short of breath compared to yesterday. IV heparin was discontinued and the hematuria has also resolved. Nevertheless, the patient echocardiogram that showed impaired LV function with an ejection fraction around 20%. He has abnormal renal function with a creatinine of around 2.4. His renal function has somewhat improved compared to yesterday and ultimately plan is to do a cardiac catheterization once the patient's renal function further stabilizes. Consider the possibility of an ischemic cardiomyopathy underlying his CHF. Mother the patient has limited troponin leak. He was seen by cardiology today. He was started on a combination of URIEL inhibitor and Aldactone in addition to optimize his CHF. He has diuresed well with IV Lasix and the patient is a negative fluid balance of 4.2 L over the past 24 hours. Chest x-ray still showing some COPD along with increased interstitial markings consistent with CHF. Echocardiac Mateusz was noted. No altered mentation. No chest pain. No other complaints otherwise for now. Objective - Vital Signs Vital signs: Vital Signs Temp 98.1 F 06/10/20 12:00 Pulse 105 H 06/10/20 12:00 Resp 15 06/10/20 12:00 BP 173/96 06/10/20 12:00 Pulse Ox 92 L 06/10/20 12:00 Intake & Output 06/09/20 06/10/20 06/10/20 18:59 06:59 18:59 Intake Total 70 350 200 Output Total 2475 2175 750 Balance -5007 -1897 -910 Weight 62.8 kg 63 kg Intake: IV 70 .9 NS 70 Oral 350 200 Output: Urine 2475 2175 750 Other: Voiding Method Indwelling Catheter Indwelling Catheter Indwelling Catheter - Exam Gen. appearance, comfortable likely distress, taken off the BiPAP and the patient is currently on 6 L by nasal cannula Head exam was generally normal. There was no scleral icterus or corneal arcus. Mucous membranes were moist. Neck was supple and without jugular venous distension, thyromegaly, or carotid bruits. Carotids were easily palpable bilaterally. There was no adenopathy. Lungs sounds are diminished along with some minimal crackles in lung bases bilaterally along with some few scattered expiratory wheezes Cardiac exam revealed the PMI to be normally situated and sized. The rhythm was regular and no extrasystoles were noted during several minutes of auscultation. The first and second heart sounds were normal and physiologic splitting of the second heart sound was noted. There were no murmurs, rubs, clicks, or gallops. Overall heart sounds are quite distended this point in time. Abdominal exam revealed normal bowel sounds. The abdomen was soft, non-tender, and without masses, organomegaly, or appreciable enlargement of the abdominal aorta. Examination of the extremities revealed easily palpable radial, femoral and pedal pulses. There was no cyanosis, clubbing or edema. Examination of the skin revealed no evidence of significant rashes, suspicious appearing nevi or other concerning lesions. Neurologically the patient is awake and alert and is no focal neurological deficit. - Labs CBC & Chem 7: 06/10/20 04:24 06/10/20 04:24 Labs: Abnormal Lab Results - Last 24 Hours (Table) 06/09/20 06/09/20 06/10/20 Range/Units 15:03 19:36 04:24 WBC 18.0 H (3.8-10.6) k/uL RBC 3.86 L (4.30-5.90) m/uL Hgb 11.0 L (13.0-17.5) gm/dL Hct 35.0 L (39.0-53.0) % Neutrophils # 14.6 H (1.3-7.7) k/uL BUN (9-20) mg/dL Creatinine (0.66-1.25) mg/dL Glucose (74-99) mg/dL Troponin I 0.041 H* 0.053 H* (0.000-0.034) ng/mL 06/10/20 Range/Units 04:24 WBC (3.8-10.6) k/uL RBC (4.30-5.90) m/uL Hgb (13.0-17.5) gm/dL Hct (39.0-53.0) % Neutrophils # (1.3-7.7) k/uL BUN 32 H (9-20) mg/dL Creatinine 2.42 H (0.66-1.25) mg/dL Glucose 100 H (74-99) mg/dL Troponin I (0.000-0.034) ng/mL Microbiology - Last 24 Hours (Table) 06/08/20 17:38 Blood Culture - Preliminary Blood No Growth after 24 hours Assessment and Plan Plan: 1 acute hypoxic respiratory failure, initially placed on BiPAP and subsequently transitioned to 6 L of oxygen by nasal cannula. Chest x-ray is consistent with CHF and the patient has a minimal troponin leak. Further investigation yielded that the patient has severe systolic heart failure with an ejection fraction of around 20%. Consider ischemic cardiomyopathy. No significant right-sided failure. The patient has moderate degree of mitral regurgitation. Doppler of the lower extremities have been negative. VQ scan is on an intermediate probability. Pulmonary embolism is highly unlikely. Chest x-ray is consistent with CHF. 2 acute hematuria, traumatic and the patient was seen by urology and a Ceballos catheter in place, improved and the patient is currently off IV heparin 3 chronic kidney disease, stage 3-4, and ultrasound the kidneys showing chronic medical renal disease involving the left kidney which is atrophic and some mild hydronephrosis of the right kidney. 4 hypertension 5 hyperlipidemia 6 COPD, maintained on Symbicort and Ventolin on a when necessary basis 7 chronic anxiety/depression Plan Echo results were noted Continue diuretics Optimize CHF by combination of metoprolol 75 mg by mouth in the morning and 100 mg at night in addition to lisinopril 2.5 mg by mouth daily and Aldactone 25 mg by mouth daily. We'll monitor the renal function and potassium level pressure with this above-mentioned additions. Continue IV Lasix for another 24 hours at a dose of 40 mg every 12 hours. Monitor renal function Cardiac catheterization once the patient is stabilized in terms of his renal function Stop the BiPAP and put the patient on oxygen at 6 L Awaiting Covid 19 evaluation by PCR Ultrasound the kidneys was noted We'll continue to follow
[2020-06-10] MEDS: IPRATROPIUM-ALBUTEROL 3 ML NEB INHALATION SCH ×3 (13:39→19:49)
[2020-06-10] MEDS ORDERED: hydrALAZINE HCL 20 MG/ML 1 ML VIAL IVP PRN (13:53)
[2020-06-10] MEDS ORDERED: METOPROLOL TARTRATE 25 MG TAB PO STA (14:10)
--- NOTE | 2020-06-10 14:21 | CDI ---
Documentation Clarification Form Date: 06/10/2020 02:05:02 PM From: Beth Neal CCS, CCDS Admit Date: 06/08/2020 07:08:00 PM Patient Name: Rey Child Visit Number: [id number] Discharge Date: ATTENTION: The Clinical Documentation Specialists (CDI) and [facility] Coding Staff appreciate your assistance in clarifying documentation. Please respond to the clarification below the line at the bottom and electronically sign. The CDI & [facility] Coding staff will review the response and follow-up if needed. Please note: Queries are made part of the Legal Health Record. If you have any questions, please contact the author of this message via ITS. Dr. Fanny Tee: Chronic Kidney Disease Stage 3 - 4 is documented in the 06/09 Pulmonary/Critical Care Consult and subsequent Progress note on 06/10. History/Risk Factors: Colon Cancer, COPD, Dyslipidemia, Hypertension, Smoker. Clinical Indicators: Presented to the ED on 06/08 with SOB & mild abdominal pain, Hypoxic with PO 85% per EMS. Admitted with Acute on Chronic Systolic CHF & BEVERLY. Baseline Creatinine is documented as 1.1 - 1.3, elevated Creatinine on admission: 2.6 - 2.7. GFR 06/08: 25, 06/09: 23; 06/10 27 GFR 10/09/2016: 56 Treatment: BiPAP, IV fluid 500 mls @ 999/hr, INH Albuterol, IV Azithromycin, INH Atrovent, IV Decadron, IV Rocephin, Nitro sl, IV Nitro, IV Lasix. Admit to ICU. Consults: Nephrology is not consulted. In order to capture the severity of condition, please clarify the specific stage of the CKD, if known: CKD Stage 3 (GFR 30-59) CKD Stage 4 (GFR 15-29) Other, please specify Unable to determine (Last Revision: December 2019) CKD Stage 3 (GFR 30-59) MTDD
--- NOTE | 2020-06-10 14:37 | P.PN ---
Subjective Patient is a pleasant 64-year-old male admitted for acute respiratory failure secondary to pulmonary edema from congestive heart failure chronic systolic dysfunction with acute exacerbation patient also had mildly elevated troponins cardiology is following the patient. Patient diuresed well had a negative fluid balance of her round 4 L. Patient is feeling much better today. Echo cardiac exam showed EF of around 20% Objective - Vital Signs Vital signs: Vital Signs Temp 98.1 F 06/10/20 12:00 Pulse 96 06/10/20 13:50 Resp 23 06/10/20 13:00 BP 173/100 06/10/20 13:00 Pulse Ox 93 L 06/10/20 13:00 Intake & Output 06/09/20 06/10/20 06/10/20 18:59 06:59 18:59 Intake Total 70 350 200 Output Total 2475 2175 750 Balance -5931 -3758 -116 Weight 62.8 kg 63 kg Intake: IV 70 .9 NS 70 Oral 350 200 Output: Urine 2625 2175 750 Other: Voiding Method Indwelling Catheter Indwelling Catheter Indwelling Catheter - Exam PHYSICAL EXAMINATION: GENERAL: The patient is alert and oriented x3, not in any acute distress. Well developed, well nourished. HEENT: Pupils are round and equally reacting to light. EOMI. No scleral icterus. No conjunctival pallor. Normocephalic, atraumatic. No pharyngeal erythema. No thyromegaly. CARDIOVASCULAR: S1 and S2 present. No murmurs, rubs, or gallops. PULMONARY: Chest is clear to auscultation, no wheezing or crackles. ABDOMEN: Soft, nontender, nondistended, normoactive bowel sounds. No palpable organomegaly. MUSCULOSKELETAL: No joint swelling or deformity. EXTREMITIES: No cyanosis, clubbing, or pedal edema. NEUROLOGICAL: Gross neurological examination did not reveal any focal deficits. SKIN: No rashes. - Labs CBC & Chem 7: 06/10/20 04:24 06/10/20 04:24 Labs: Abnormal Lab Results - Last 24 Hours (Table) 06/09/20 06/09/20 06/10/20 Range/Units 15:03 19:36 04:24 WBC 18.0 H (3.8-10.6) k/uL RBC 3.86 L (4.30-5.90) m/uL Hgb 11.0 L (13.0-17.5) gm/dL Hct 35.0 L (39.0-53.0) % Neutrophils # 14.6 H (1.3-7.7) k/uL BUN (9-20) mg/dL Creatinine (0.66-1.25) mg/dL Glucose (74-99) mg/dL Troponin I 0.041 H* 0.053 H* (0.000-0.034) ng/mL 06/10/20 Range/Units 04:24 WBC (3.8-10.6) k/uL RBC (4.30-5.90) m/uL Hgb (13.0-17.5) gm/dL Hct (39.0-53.0) % Neutrophils # (1.3-7.7) k/uL BUN 32 H (9-20) mg/dL Creatinine 2.42 H (0.66-1.25) mg/dL Glucose 100 H (74-99) mg/dL Troponin I (0.000-0.034) ng/mL Microbiology - Last 24 Hours (Table) 06/08/20 17:38 Blood Culture - Preliminary Blood No Growth after 24 hours Assessment and Plan Plan: -Acute hypoxic respiratory failure secondary to then start failure chronic systolic dysfunction with acute exacerbation: Patient will continued on IV Lasix. -Acute renal failure: Secondary to prerenal azotemia from heart failure. Continue with Lasix as mentioned above -Metabolic in severity -Hematuria secondary to IV heparin along with a traumatic Ceballos related injury - hypertension Hyperlipidemia Epigastric esophageal reflux disease -COPD without any exacerbation -Benign prostatic hypertrophy
--- NOTE | 2020-06-10 19:20 | P.PN ---
Progress Note - Text Progress Note Date: 06/10/20 The Ceballos catheter remains in place. It is draining blood-tinged urine. Slight leakage around the catheter has been noted. The catheter has irrigated well per the nursing staff. The patient was taking tamsulosin prior to admission and continues to receive it. I would suggest that the catheter remain in place for 5-7 days to allow the urethra to heal. As a courtesy, I would request that the catheter be removed early in the morning in the event that replacement of the catheter is necessary, as cystoscopy was required to insert the catheter yesterday.
[2020-06-10] MEDS: MIRTAZAPINE 45 MG TABLET PO SCH (20:31)
[2020-06-10] MEDS: METOPROLOL TARTRATE 50 MG TAB PO SCH (20:31)
[2020-06-10] MEDS: AMITRIPTYLINE HCL 50 MG TAB PO SCH (20:31)
[2020-06-10] MEDS: MELATONIN 3 MG TABLET PO SCH (20:31)
[2020-06-11 04:49] LABS: Basophils % (A) 0 %; Eosinophils % (A) 0 %; HCT 33.5 % (39.0-53.0); HGB 10.7 gm/dL (13.0-17.5); Lymphocytes % (A) 9 %; MCH 29.2 pg (25.0-35.0); MCV 91.3 fL (80.0-100.0); Mean Platelet Volume 6.8; Monocytes # (A) 0.3 k/uL (0-1.0); Monocytes % (A) 3 %; Neutrophils # (A) 9.5 k/uL (1.3-7.7); Neutrophils % (A) 87 %; Platelet Count 301 k/uL (150-450); RBC 3.67 m/uL (4.30-5.90); RDW 15.3 % (11.5-15.5)
[2020-06-11 05:03] LABS: Calcium 8.6 mg/dL (8.4-10.2); Magnesium 2.3 mg/dL (1.6-2.3); Potassium 4.1 mmol/L (3.5-5.1)
[2020-06-11] MEDS: FUROSEMIDE 10 MG/ML 4 ML VIAL IV SCH (06:46)
--- NOTE | 2020-06-11 07:24 | P.PN ---
Subjective Progress Note Date: 06/11/20 Principal diagnosis: Congestive heart failure secondary to systolic dysfunction This is a 69-year-old gentleman with a past medical history significant for hypertension, dyslipidemia, and chronic obstructive pulmonary disease as well as chronic renal failure presented to the emergency department complaining of shortness of breath. The patient somewhat is a poor historian. He stated that the shortness of breath started about 48 hours before he presented to the emergency department. He describes exertional dyspnea. No fever or chills or cough. He denies any symptoms of chest pain or chest discomfort, dizziness, heart racing, or syncope. No change in the weight. The patient does have history of COPD but he was not using an inhaler looks like it was prescribed to him in the past. Does not follow with any results technician on regular basis. 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 EMS was right and the patient was brought to the emergency department. The chest x-ray when he presented to the hospital showed findings consistent with congestive heart failure. The BNP came in to be elevated at almost 30,000. The d-dimer was checked and came in to be elevated. No CTA of the chest or VQ scan performed but currently the patient is on heparin. The hemoglobin is within normal limits. The creatinine came in to be elevated around 2.7 and the patient's baseline creatinine is lower. The first set of troponin came in to be within normal limits. The echocardiogram revealed impaired LV function was EF around 20%. The patient was seen today, 06/11/2020. Overall and from the cardiovascular standpoint of view, he is feeling better. The shortness of breath has improved. Hemodynamically he continues to be stable. On examination he is not wheezing any more. He seems to be euvolemic for me. Yesterday he was started on Aldactone as well as lisinopril and we did increase the dose of metoprolol 200 mg by mouth twice a day. Pressure has improved significantly. The creatinine is a slightly worse. I'm going to DC the Lasix IV and start the patient on Lasix by mouth. We'll continue monitor the kidney function and electrolytes. Plan to perform coronary angiogram once the creatinine is back to baseline probably as an outpatient. Objective - Vital Signs Vital signs: Vital Signs Temp 97.9 F 06/11/20 04:00 Pulse 78 06/11/20 07:00 Resp 16 06/11/20 07:00 BP 123/68 06/11/20 07:00 Pulse Ox 96 06/11/20 07:00 Intake & Output 06/10/20 06/11/20 06/11/20 18:59 06:59 18:59 Intake Total 200 Output Total 1550 1195 Balance -1350 -1195 Weight 64.1 kg Intake: Oral 200 Output: Urine 1550 1195 Other: Voiding Method Indwelling Catheter Indwelling Catheter - Constitutional General appearance: Present: no acute distress - Respiratory Respiratory: bilateral: CTA - Cardiovascular Rhythm: regular Heart sounds: normal: S1, S2 - Labs CBC & Chem 7: 06/11/20 04:32 06/11/20 04:32 Labs: Abnormal Lab Results - Last 24 Hours (Table) 06/11/20 06/11/20 Range/Units 04:32 04:32 WBC 11.0 H (3.8-10.6) k/uL RBC 3.67 L (4.30-5.90) m/uL Hgb 10.7 L (13.0-17.5) gm/dL Hct 33.5 L (39.0-53.0) % Neutrophils # 9.5 H (1.3-7.7) k/uL Sodium 136 L (137-145) mmol/L BUN 44 H (9-20) mg/dL Creatinine 2.54 H (0.66-1.25) mg/dL Glucose 128 H (74-99) mg/dL Microbiology - Last 24 Hours (Table) 06/08/20 17:38 Blood Culture - Preliminary Blood No Growth after 48 hours Assessment and Plan Assessment: Assessment #1 acute hypoxic respiratory failure #2 congestive heart failure exacerbation secondary to systolic dysfunction #3 possible COPD exacerbation #4 component of heart failure exacerbation #5 hypertension #6 dyslipidemia #7 renal failure #8 multiple comorbid conditions Plan #1 continue the current medical regimen #2 DC Lasix IV and start the patient on Lasix. #3 the chest x-ray was reviewed #4 plan to perform coronary angiogram once the creatinine is back to baseline
[2020-06-11] MEDS: IPRATROPIUM-ALBUTEROL 3 ML NEB INHALATION SCH ×4 (08:18→20:24)
[2020-06-11] MEDS: SYMBICORT 160-4.5 MCG INHALER INHALATION SCH ×2 (08:18→20:24)
[2020-06-11] MEDS: amLODIPine 10 MG TAB PO SCH (08:39)
[2020-06-11] MEDS: SPIRONOLACTONE 25 MG TAB PO SCH (08:39)
[2020-06-11] MEDS: HEPARIN SODIUM,PORCINE 5,000 UNIT/ML 1 ML VIAL SQ SCH ×2 (08:39→20:44)
[2020-06-11] MEDS: TAMSULOSIN 0.4 MG CAP.ER.24H PO SCH (08:39)
[2020-06-11] MEDS: clonazePAM 1 MG TAB PO SCH ×2 (08:40→20:43)
[2020-06-11] MEDS: METOPROLOL TARTRATE 50 MG TAB PO SCH ×2 (08:40→20:43)
[2020-06-11] MEDS: ASPIRIN 81 MG PO SCH (08:40)
--- NOTE | 2020-06-11 09:26 | XR ---
EXAMINATION TYPE: XR chest 1V portable DATE OF EXAM: 06/11/2020 COMPARISON: 06/10/2020 INDICATION: CHF TECHNIQUE: Single frontal view of the chest is obtained. FINDINGS: The heart size is normal. The pulmonary vasculature is normal. The lungs are clear. Previous mild increased lung markings right upper lobe have resolved IMPRESSION: 1. Resolving right upper lobe infiltrate
[2020-06-11] MEDS: DOCUSATE 100 MG CAP PO SCH (09:57)
--- NOTE | 2020-06-11 13:23 | P.PN ---
Subjective Progress Note Date: 06/11/20 A 69-year-old male patient with known history of COPD and chronic kidney disease in addition to hypertension and hyperlipidemia who came into the hospital because of two-week history of progressive worsening exertional dyspnea along with some orthopnea. No lower extremity edema. Minimal cough. No significant sputum production. No hemoptysis. No pleurisy. No chest pain. No fever or chills. The patient came into the emergency department and the patient was quite short of breath. The patient was briefly placed on BiPAP at a pressure of 12/5 cm of water with an FiO2 of 50%. This morning he was still on BiPAP and I took him off and put him on oxygen at 4 L per minute nasal cannula. The patient had an elevated d-dimer of 2.7. A VQ scan was ordered and the patient was started on IV heparin considering the possibility of pulmonary embolism. Noted the chest x-ray showed bilateral pulmonary infiltrates most consistent with CHF. In any rate, and evaluation was started in the patient had an accidental traumatic pole of his Ceballos catheter which resulted in significant amount of hematuria for which urology was consulted and the Ceballos catheter was kept in place. No clots. No outflow obstruction secondary to bleeding. The patient did have some difficulty with urination as the catheter got plugged and ultimately this was rectified by the urologist. The patient remains on IV Lasix for now and is producing adequate amount of urine output. Echocardiogram is pending for now. ProBNP level is quite elevated. No altered mentation. No other complaints otherwise for now. 06/10/2020 the patient is feeling better compared to yesterday. Less short of breath compared to yesterday. IV heparin was discontinued and the hematuria has also resolved. Nevertheless, the patient echocardiogram that showed impaired LV function with an ejection fraction around 20%. He has abnormal renal function with a creatinine of around 2.4. His renal function has somewhat improved compared to yesterday and ultimately plan is to do a cardiac catheterization once the patient's renal function further stabilizes. Consider the possibility of an ischemic cardiomyopathy underlying his CHF. Mother the patient has limited troponin leak. He was seen by cardiology today. He was started on a combination of URIEL inhibitor and Aldactone in addition to optimize his CHF. He has diuresed well with IV Lasix and the patient is a negative fluid balance of 4.2 L over the past 24 hours. Chest x-ray still showing some COPD along with increased interstitial markings consistent with CHF. Echocardiac Mateusz was noted. No altered mentation. No chest pain. No other complaints otherwise for now. 06/11/2020, patient is feeling well and is much less short of breath and he feels is very close to his baseline. He is on oxygen at 2 L per minute nasal cannula. He remains a negative fluid balance on IV Lasix and the patient was switched to oral Lasix. Chest x-ray shows improvement in the volume status. Renal function is stable. The patient is on a combination of Lasix and Aldactone for now. The patient also metoprolol 100 mg by mouth twice a day and hydralazine 10 mg on an as-needed basis in addition to lisinopril 2.5 mg by mouth daily. No nausea. No vomiting. No chest pain. No swelling lower extremities. No other complaints otherwise for now. Echo was noted. Objective - Vital Signs Vital signs: Vital Signs Temp 97.9 F 06/11/20 12:00 Pulse 71 06/11/20 12:00 Resp 22 06/11/20 12:00 BP 112/85 06/11/20 12:00 Pulse Ox 95 06/11/20 12:00 Intake & Output 06/10/20 06/11/20 06/11/20 18:59 06:59 18:59 Intake Total 200 300 Output Total 1550 1195 625 Balance -1350 -1195 -325 Weight 64.1 kg Intake: Intake, IV Titration 50 Amount cefTRIAXone 1 gm In 50 Sodium Chloride 0.9% 50 ml @ 100 mls/hr IVPB Q24HR [facility] Rx#:[id number] Oral 200 250 Output: Urine 1550 1195 625 Other: Voiding Method Indwelling Catheter Indwelling Catheter Indwelling Catheter - Exam Gen. appearance, comfortable likely distress, taken off the BiPAP and the patient is currently on 2 L by nasal cannula Head exam was generally normal. There was no scleral icterus or corneal arcus. Mucous membranes were moist. Neck was supple and without jugular venous distension, thyromegaly, or carotid bruits. Carotids were easily palpable bilaterally. There was no adenopathy. Lungs sounds are diminished along with some minimal crackles in lung bases bilaterally along with some few scattered expiratory wheezes Cardiac exam revealed the PMI to be normally situated and sized. The rhythm was regular and no extrasystoles were noted during several minutes of auscultation. The first and second heart sounds were normal and physiologic splitting of the second heart sound was noted. There were no murmurs, rubs, clicks, or gallops. Overall heart sounds are quite distended this point in time. Abdominal exam revealed normal bowel sounds. The abdomen was soft, non-tender, and without masses, organomegaly, or appreciable enlargement of the abdominal aorta. Examination of the extremities revealed easily palpable radial, femoral and pedal pulses. There was no cyanosis, clubbing or edema. Examination of the skin revealed no evidence of significant rashes, suspicious appearing nevi or other concerning lesions. Neurologically the patient is awake and alert and is no focal neurological deficit. - Labs CBC & Chem 7: 06/11/20 04:32 06/11/20 04:32 Labs: Abnormal Lab Results - Last 24 Hours (Table) 06/11/20 06/11/20 Range/Units 04:32 04:32 WBC 11.0 H (3.8-10.6) k/uL RBC 3.67 L (4.30-5.90) m/uL Hgb 10.7 L (13.0-17.5) gm/dL Hct 33.5 L (39.0-53.0) % Neutrophils # 9.5 H (1.3-7.7) k/uL Sodium 136 L (137-145) mmol/L BUN 44 H (9-20) mg/dL Creatinine 2.54 H (0.66-1.25) mg/dL Glucose 128 H (74-99) mg/dL Microbiology - Last 24 Hours (Table) 06/08/20 17:38 Blood Culture - Preliminary Blood No Growth after 48 hours Assessment and Plan Plan: 1 acute hypoxic respiratory failure, initially placed on BiPAP and subsequently transitioned to 2 L of oxygen by nasal cannula. Chest x-ray is consistent with CHF and the patient has a minimal troponin leak. Further investigation yielded that the patient has severe systolic heart failure with an ejection fraction of around 20%. Consider ischemic cardiomyopathy. Clinically improving the patient is diuresing adequately for now and the patient is currently down to 2 liters of oxygen by nasal cannula. Overall condition is improved significantly. 2 acute hematuria, traumatic and the patient was seen by urology and a Ceballos catheter in place, improved and the patient is currently off IV heparin. The hematuria is completely subsided. 3 chronic kidney disease, stage 3-4, and ultrasound the kidneys showing chronic medical renal disease involving the left kidney which is atrophic and some mild hydronephrosis of the right kidney. 4 hypertension 5 hyperlipidemia 6 COPD, maintained on Symbicort and Ventolin on a when necessary basis 7 chronic anxiety/depression Plan Continue diuretics and the patient was switched to oral Lasix Optimize CHF by combination of metoprolol 75 mg by mouth in the morning and 100 mg at night in addition to lisinopril 2.5 mg by mouth daily and Aldactone 25 mg by mouth daily. We'll monitor the renal function and potassium level pressure with this above-mentioned additions. Monitor renal function Cardiac catheterization once the patient is stabilized in terms of his renal function The FiO2 has been weaned down to 2 L per minute nasal cannula Covid 19 evaluation by PCR is negative Ultrasound the kidneys was noted The patient can be transferred to telemetry unit. We'll continue to follow
--- NOTE | 2020-06-11 14:42 | P.PN ---
Subjective Patient is a pleasant 64-year-old male admitted for acute respiratory failure secondary to pulmonary edema from congestive heart failure chronic systolic dysfunction with acute exacerbation patient also had mildly elevated troponins cardiology is following the patient. Patient diuresed well had a negative fluid balance of her round 4 L. Patient is feeling much better today. Echo cardiac exam showed EF of around 20% 06/11/2020 Patient is doing much better will transfer out of ICU. Patient's Lasix is being switched to oral patient's creatinine is bit worse patient is being started on URIEL inhibitor because of which will need to closely monitor serum creatinine and other electrolytes Constitutional: Denied any fatigue denied any fever. Cardio vascular: denied any chest pain, palpitations Gastrointestinal denied any nausea vomiting Pulmonary: Denied any shortness of breath cough Neurologic denied any new focal deficits All inpatient medications were reviewed and appropriate changes in these medications as dictated in the interval history and assessment and plan. Objective - Vital Signs Vital signs: Vital Signs Temp 97.9 F 06/11/20 12:00 Pulse 68 06/11/20 13:00 Resp 20 06/11/20 13:00 BP 112/85 06/11/20 12:00 Pulse Ox 95 06/11/20 12:00 Intake & Output 06/10/20 06/11/20 06/11/20 18:59 06:59 18:59 Intake Total 200 300 Output Total 1550 1195 625 Balance -1350 -1195 -325 Weight 64.1 kg Intake: Intake, IV Titration 50 Amount cefTRIAXone 1 gm In 50 Sodium Chloride 0.9% 50 ml @ 100 mls/hr IVPB Q24HR [facility] Rx#:[id number] Oral 200 250 Output: Urine 1550 1195 625 Other: Voiding Method Indwelling Catheter Indwelling Catheter Indwelling Catheter - Exam PHYSICAL EXAMINATION: GENERAL: The patient is alert and oriented x3, not in any acute distress. Well developed, well nourished. HEENT: Pupils are round and equally reacting to light. EOMI. No scleral icterus. No conjunctival pallor. Normocephalic, atraumatic. No pharyngeal erythema. No thyromegaly. CARDIOVASCULAR: S1 and S2 present. No murmurs, rubs, or gallops. PULMONARY: Chest is clear to auscultation, no wheezing or crackles. ABDOMEN: Soft, nontender, nondistended, normoactive bowel sounds. No palpable organomegaly. MUSCULOSKELETAL: No joint swelling or deformity. EXTREMITIES: No cyanosis, clubbing, or pedal edema. NEUROLOGICAL: Gross neurological examination did not reveal any focal deficits. SKIN: No rashes. - Labs CBC & Chem 7: 06/11/20 04:32 06/11/20 04:32 Labs: Abnormal Lab Results - Last 24 Hours (Table) 06/11/20 06/11/20 Range/Units 04:32 04:32 WBC 11.0 H (3.8-10.6) k/uL RBC 3.67 L (4.30-5.90) m/uL Hgb 10.7 L (13.0-17.5) gm/dL Hct 33.5 L (39.0-53.0) % Neutrophils # 9.5 H (1.3-7.7) k/uL Sodium 136 L (137-145) mmol/L BUN 44 H (9-20) mg/dL Creatinine 2.54 H (0.66-1.25) mg/dL Glucose 128 H (74-99) mg/dL Microbiology - Last 24 Hours (Table) 06/08/20 17:38 Blood Culture - Preliminary Blood No Growth after 48 hours Assessment and Plan Plan: -Acute hypoxic respiratory failure secondary to then start failure chronic systolic dysfunction with acute exacerbation: Patient is switched to oral Lasix and patient will also started on URIEL inhibitor and Aldactone patient has an EF of around 20%. -Acute renal failure: Secondary to prerenal azotemia from heart failure. Continue with Lasix as mentioned above -Metabolic in severity -Hematuria secondary to IV heparin along with a traumatic Ceballos related injury - hypertension Hyperlipidemia Epigastric esophageal reflux disease -COPD without any exacerbation -Benign prostatic hypertrophy
[2020-06-11] MEDS: FUROSEMIDE 40 MG TAB PO SCH (15:56)
[2020-06-11] MEDS: MIRTAZAPINE 45 MG TABLET PO SCH (20:43)
[2020-06-11] MEDS: AMITRIPTYLINE HCL 50 MG TAB PO SCH (20:43)
[2020-06-11] MEDS: MELATONIN 3 MG TABLET PO SCH (20:44)
[2020-06-12 05:39] LABS: Basophils % (A) 0 %; Eosinophils # (A) 0.1 k/uL (0-0.7); Eosinophils % (A) 1 %; HCT 34.8 % (39.0-53.0); Lymphocytes # (A) 3.8 k/uL (1.0-4.8); Lymphocytes % (A) 27 %; MCH 29.1 pg (25.0-35.0); MCHC 31.6 g/dL (31.0-37.0); MCV 92.2 fL (80.0-100.0); Mean Platelet Volume 6.7; Monocytes # (A) 0.6 k/uL (0-1.0); Monocytes % (A) 5 %; Neutrophils # (A) 9.2 k/uL (1.3-7.7); Neutrophils % (A) 66 %; Platelet Count 332 k/uL (150-450); RBC 3.77 m/uL (4.30-5.90); RDW 15.3 % (11.5-15.5); WBC 13.9 k/uL (3.8-10.6)
[2020-06-12 05:48] LABS: Calcium 8.5 mg/dL (8.4-10.2); Potassium 3.8 mmol/L (3.5-5.1)
[2020-06-12] MEDS: IPRATROPIUM-ALBUTEROL 3 ML NEB INHALATION SCH ×4 (07:23→20:24)
[2020-06-12] MEDS: SYMBICORT 160-4.5 MCG INHALER INHALATION SCH ×2 (07:26→20:24)
--- NOTE | 2020-06-12 07:43 | P.PN ---
Subjective Progress Note Date: 06/12/20 Principal diagnosis: Congestive heart failure secondary to systolic dysfunction This is a 69-year-old gentleman with a past medical history significant for hypertension, dyslipidemia, and chronic obstructive pulmonary disease as well as chronic renal failure presented to the emergency department complaining of shortness of breath. The patient somewhat is a poor historian. He stated that the shortness of breath started about 48 hours before he presented to the emergency department. He describes exertional dyspnea. No fever or chills or cough. He denies any symptoms of chest pain or chest discomfort, dizziness, heart racing, or syncope. No change in the weight. The patient does have history of COPD but he was not using an inhaler looks like it was prescribed to him in the past. Does not follow with any deckhand shrimp boat on regular basis. 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 EMS was right and the patient was brought to the emergency department. The chest x-ray when he presented to the hospital showed findings consistent with congestive heart failure. The BNP came in to be elevated at almost 30,000. The d-dimer was checked and came in to be elevated. No CTA of the chest or VQ scan performed but currently the patient is on heparin. The hemoglobin is within normal limits. The creatinine came in to be elevated around 2.7 and the patient's baseline creatinine is lower. The first set of troponin came in to be within normal limits. The echocardiogram revealed impaired LV function was EF around 20%. The patient was seen today, June [id number]. Clinically he is doing better. The blood pressure has been under excellent control on the current medical regimen. He denies any symptoms of chest pain or chest discomfort. Shortness of breath has improved. He continues to have no more hematuria. From the cardiovascular standpoint of view, the patient can be transferred out of the unit. The only medication change and going to make is to stop the Norvasc in view of his cardiomyopathy and increase the dose of lisinopril. We'll continue following up with the patient. Eventually he needs to undergo a coronary angio gram once the creatinine is back to baseline. Unfortunately his creatinine this morning continues to be above the baseline. Objective - Vital Signs Vital signs: Vital Signs Temp 98.5 F 06/12/20 04:00 Pulse 87 06/12/20 07:32 Resp 15 06/12/20 04:00 BP 124/88 06/12/20 04:00 Pulse Ox 91 L 06/12/20 04:00 Intake & Output 06/11/20 06/12/20 06/12/20 18:59 06:59 18:59 Intake Total 550 Output Total 775 550 Balance -225 -550 Weight 65.3 kg Intake: Intake, IV Titration 50 Amount cefTRIAXone 1 gm In 50 Sodium Chloride 0.9% 50 ml @ 100 mls/hr IVPB Q24HR [facility] Rx#:[id number] Oral 500 Output: Urine 775 550 Other: Voiding Method Indwelling Catheter Indwelling Catheter - Constitutional General appearance: Present: no acute distress - Respiratory Respiratory: bilateral: diminished - Cardiovascular Rhythm: regular Heart sounds: normal: S1, S2 - Labs CBC & Chem 7: 06/12/20 05:07 06/12/20 05:07 Labs: Abnormal Lab Results - Last 24 Hours (Table) 06/12/20 06/12/20 Range/Units 05:07 05:07 WBC 13.9 H (3.8-10.6) k/uL RBC 3.77 L (4.30-5.90) m/uL Hgb 11.0 L (13.0-17.5) gm/dL Hct 34.8 L (39.0-53.0) % Neutrophils # 9.2 H (1.3-7.7) k/uL Sodium 135 L (137-145) mmol/L Carbon Dioxide 32 H (22-30) mmol/L BUN 53 H (9-20) mg/dL Creatinine 2.45 H (0.66-1.25) mg/dL Microbiology - Last 24 Hours (Table) 06/08/20 17:38 Blood Culture - Preliminary Blood No Growth after 72 hours Assessment and Plan Assessment: Assessment #1 acute hypoxic respiratory failure #2 congestive heart failure exacerbation secondary to systolic dysfunction #3 possible COPD exacerbation #4 component of heart failure exacerbation #5 hypertension #6 dyslipidemia #7 renal failure #8 multiple comorbid conditions Plan #1 continue the current medical regimen #2 DC Norvasc and increase the dose of lisinopril #3 follow-up with the patient
[2020-06-12] MEDS: clonazePAM 1 MG TAB PO SCH ×2 (09:18→20:21)
[2020-06-12] MEDS: ASPIRIN 81 MG PO SCH (09:18)
[2020-06-12] MEDS: METOPROLOL TARTRATE 50 MG TAB PO SCH ×2 (09:19→20:21)
[2020-06-12] MEDS: DOCUSATE 100 MG CAP PO SCH (09:19)
[2020-06-12] MEDS: lisinopriL 5 MG TAB PO SCH ×2 (09:20→20:21)
[2020-06-12] MEDS: FUROSEMIDE 40 MG TAB PO SCH ×2 (09:20→16:45)
[2020-06-12] MEDS: SPIRONOLACTONE 25 MG TAB PO SCH (09:20)
[2020-06-12] MEDS: TAMSULOSIN 0.4 MG CAP.ER.24H PO SCH (09:20)
[2020-06-12] MEDS: HEPARIN SODIUM,PORCINE 5,000 UNIT/ML 1 ML VIAL SQ SCH ×2 (09:21→20:21)
--- NOTE | 2020-06-12 09:48 | XR ---
EXAMINATION TYPE: XR chest 1V portable DATE OF EXAM: 06/12/2020 COMPARISON: 06/11/2020 HISTORY: Shortness of breath TECHNIQUE: Single frontal view of the chest is obtained. FINDINGS: There is improved aeration involving the left lung base. The heart is enlarged and underly ing COPD noted. No overt failure. No pneumothorax. Diffuse osteopenia and arthropathy of the shoulder s.. IMPRESSION: 1. COPD and cardiomegaly
[2020-06-12 10:06] VITALS: BMI 22.5
--- NOTE | 2020-06-12 11:53 | P.PN ---
Subjective Progress Note Date: 06/12/20 A 69-year-old male patient with known history of COPD and chronic kidney disease in addition to hypertension and hyperlipidemia who came into the hospital because of two-week history of progressive worsening exertional dyspnea along with some orthopnea. No lower extremity edema. Minimal cough. No significant sputum production. No hemoptysis. No pleurisy. No chest pain. No fever or chills. The patient came into the emergency department and the patient was quite short of breath. The patient was briefly placed on BiPAP at a pressure of 12/5 cm of water with an FiO2 of 50%. This morning he was still on BiPAP and I took him off and put him on oxygen at 4 L per minute nasal cannula. The patient had an elevated d-dimer of 2.7. A VQ scan was ordered and the patient was started on IV heparin considering the possibility of pulmonary embolism. Noted the chest x-ray showed bilateral pulmonary infiltrates most consistent with CHF. In any rate, and evaluation was started in the patient had an accidental traumatic pole of his Ceballos catheter which resulted in significant amount of hematuria for which urology was consulted and the Ceballos catheter was kept in place. No clots. No outflow obstruction secondary to bleeding. The patient did have some difficulty with urination as the catheter got plugged and ultimately this was rectified by the urologist. The patient remains on IV Lasix for now and is producing adequate amount of urine output. Echocardiogram is pending for now. ProBNP level is quite elevated. No altered mentation. No other complaints otherwise for now. 06/10/2020 the patient is feeling better compared to yesterday. Less short of breath compared to yesterday. IV heparin was discontinued and the hematuria has also resolved. Nevertheless, the patient echocardiogram that showed impaired LV function with an ejection fraction around 20%. He has abnormal renal function with a creatinine of around 2.4. His renal function has somewhat improved compared to yesterday and ultimately plan is to do a cardiac catheterization once the patient's renal function further stabilizes. Consider the possibility of an ischemic cardiomyopathy underlying his CHF. Mother the patient has limited troponin leak. He was seen by cardiology today. He was started on a combination of URIEL inhibitor and Aldactone in addition to optimize his CHF. He has diuresed well with IV Lasix and the patient is a negative fluid balance of 4.2 L over the past 24 hours. Chest x-ray still showing some COPD along with increased interstitial markings consistent with CHF. Echocardiac Mateusz was noted. No altered mentation. No chest pain. No other complaints otherwise for now. 06/11/2020, patient is feeling well and is much less short of breath and he feels is very close to his baseline. He is on oxygen at 2 L per minute nasal cannula. He remains a negative fluid balance on IV Lasix and the patient was switched to oral Lasix. Chest x-ray shows improvement in the volume status. Renal function is stable. The patient is on a combination of Lasix and Aldactone for now. The patient also metoprolol 100 mg by mouth twice a day and hydralazine 10 mg on an as-needed basis in addition to lisinopril 2.5 mg by mouth daily. No nausea. No vomiting. No chest pain. No swelling lower extremities. No other complaints otherwise for now. Echo was noted. 06/12/2020, the patient is doing well. He is currently at 2 L about 2 by nasal cannula. No significant respiratory difficulties. Cardiac rhythm is sinus. Renal function stable. Sinus rhythm at the rate of 93 beats per minute. No shortness of breath. No chest pain. No other significant events overnight. There are no plans to proceed with any cardiac catheterization based on his underlying renal failure. He remains on a combination of Lasix and Aldactone. He is also metoprolol. He is on lisinopril and hydralazine on an as-needed basis. No signs of any ongoing COPD exacerbation his overall pulmonary status is stable for now. Objective - Vital Signs Vital signs: Vital Signs Temp 97.9 F 06/12/20 08:00 Pulse 105 H 06/12/20 11:46 Resp 19 06/12/20 08:00 BP 124/76 06/12/20 08:00 Pulse Ox 94 L 06/12/20 08:00 Intake & Output 06/11/20 06/12/20 06/12/20 18:59 06:59 18:59 Intake Total 550 Output Total 775 550 375 Balance -225 -550 -375 Weight 65.3 kg 65.3 kg Intake: Intake, IV Titration 50 Amount cefTRIAXone 1 gm In 50 Sodium Chloride 0.9% 50 ml @ 100 mls/hr IVPB Q24HR [facility] Rx#:[id number] Oral 500 Output: Urine 775 550 375 Other: Voiding Method Indwelling Catheter Indwelling Catheter Indwelling Catheter - Exam Gen. appearance, comfortable likely distress, taken off the BiPAP and the mehran ent is currently on 2 L by nasal cannula Head exam was generally normal. There was no scleral icterus or corneal arcus. Mucous membranes were moist. Neck was supple and without jugular venous distension, thyromegaly, or carotid bruits. Carotids were easily palpable bilaterally. There was no adenopathy. Lungs sounds are diminished along with some minimal crackles in lung bases bilaterally along with some few scattered expiratory wheezes Cardiac exam revealed the PMI to be normally situated and sized. The rhythm was regular and no extrasystoles were noted during several minutes of auscultation. The first and second heart sounds were normal and physiologic splitting of the second heart sound was noted. There were no murmurs, rubs, clicks, or gallops. Overall heart sounds are quite distended this point in time. Abdominal exam revealed normal bowel sounds. The abdomen was soft, non-tender, and without masses, organomegaly, or appreciable enlargement of the abdominal aorta. Examination of the extremities revealed easily palpable radial, femoral and pedal pulses. There was no cyanosis, clubbing or edema. Examination of the skin revealed no evidence of significant rashes, suspicious appearing nevi or other concerning lesions. Neurologically the patient is awake and alert and is no focal neurological deficit. - Labs CBC & Chem 7: 06/12/20 05:07 06/12/20 05:07 Labs: Abnormal Lab Results - Last 24 Hours (Table) 06/12/20 06/12/20 Range/Units 05:07 05:07 WBC 13.9 H (3.8-10.6) k/uL RBC 3.77 L (4.30-5.90) m/uL Hgb 11.0 L (13.0-17.5) gm/dL Hct 34.8 L (39.0-53.0) % Neutrophils # 9.2 H (1.3-7.7) k/uL Sodium 135 L (137-145) mmol/L Carbon Dioxide 32 H (22-30) mmol/L BUN 53 H (9-20) mg/dL Creatinine 2.45 H (0.66-1.25) mg/dL Microbiology - Last 24 Hours (Table) 06/08/20 17:38 Blood Culture - Preliminary Blood No Growth after 72 hours Assessment and Plan Plan: 1 acute hypoxic respiratory failure, predominantly related to CHF exacerbation along with a component of COPD. The patient was found to have severe cardiomyopathy with impaired LV function. The patient was optimized in terms of his heart failure. COPD Zosyn stable for now. He is currently on 2 L of oxygen by nasal cannula with marked improvement in his oxygenation. 2 acute hematuria, traumatic and the patient was seen by urology and a Ceballos catheter in place, improved and the patient is currently off IV heparin. The hematuria is completely subsided. 3 chronic kidney disease, stage 3-4, and ultrasound the kidneys showing chronic medical renal disease involving the left kidney which is atrophic and some mild hydronephrosis of the right kidney. 4 hypertension 5 hyperlipidemia 6 COPD, maintained on Symbicort and Ventolin on a when necessary basis 7 chronic anxiety/depression Plan Continue diuretics and the patient is on a combination of Lasix and Aldactone Optimize CHF by combination of metoprolol 75 mg by mouth in the morning and 100 mg at night in addition to lisinopril 2.5 mg by mouth daily and Aldactone 25 mg by mouth daily. We'll monitor the renal function and potassium level pressure with this above-mentioned additions. Monitor renal function Cardiac catheterization once the patient is stabilized in terms of his renal function, versus an outpatient stress test The FiO2 has been weaned down to 2 L per minute nasal cannula Covid 19 evaluation by PCR is negative Ultrasound the kidneys was noted The patient can be transferred to telemetry unit. We'll continue to follow
--- NOTE | 2020-06-12 16:15 | P.PN ---
Subjective Patient is a pleasant 64-year-old male admitted for acute respiratory failure secondary to pulmonary edema from congestive heart failure chronic systolic dysfunction with acute exacerbation patient also had mildly elevated troponins cardiology is following the patient. Patient diuresed well had a negative fluid balance of her round 4 L. Patient is feeling much better today. Echo cardiac exam showed EF of around 20% 06/11/2020 Patient is doing much better will transfer out of ICU. Patient's Lasix is being switched to oral patient's creatinine is bit worse patient is being started on URIEL inhibitor because of which will need to closely monitor serum creatinine and other electrolytes 06/12/2020 Patient is doing much better today patient is being transferred out of ICU with the patient was started on URIEL inhibitor because of which a cardiology is recommending monitoring kidney function as his creatinine to start it is high Constitutional: Denied any fatigue denied any fever. Cardio vascular: denied any chest pain, palpitations Gastrointestinal denied any nausea vomiting Pulmonary: Denied any shortness of breath cough Neurologic denied any new focal deficits All inpatient medications were reviewed and appropriate changes in these medications as dictated in the interval history and assessment and plan. Objective - Vital Signs Vital signs: Vital Signs Temp 98.3 F 06/12/20 12:00 Pulse 106 H 06/12/20 12:00 Resp 25 H 06/12/20 12:00 BP 146/79 06/12/20 12:00 Pulse Ox 94 L 06/12/20 12:00 Intake & Output 06/11/20 06/12/20 06/12/20 18:59 06:59 18:59 Intake Total 550 Output Total 775 550 650 Balance -225 -550 -650 Weight 65.3 kg 65.3 kg Intake: Intake, IV Titration 50 Amount cefTRIAXone 1 gm In 50 Sodium Chloride 0.9% 50 ml @ 100 mls/hr IVPB Q24HR [facility] Rx#:[id number] Oral 500 Output: Urine 775 550 650 Other: Voiding Method Indwelling Catheter Indwelling Catheter Indwelling Catheter - Exam PHYSICAL EXAMINATION: GENERAL: The patient is alert and oriented x3, not in any acute distress. Well developed, well nourished. HEENT: Pupils are round and equally reacting to light. EOMI. No scleral icterus. No conjunctival pallor. Normocephalic, atraumatic. No pharyngeal erythema. No thyromegaly. CARDIOVASCULAR: S1 and S2 present. No murmurs, rubs, or gallops. PULMONARY: Chest is clear to auscultation, no wheezing or crackles. ABDOMEN: Soft, nontender, nondistended, normoactive bowel sounds. No palpable organomegaly. MUSCULOSKELETAL: No joint swelling or deformity. EXTREMITIES: No cyanosis, clubbing, or pedal edema. NEUROLOGICAL: Gross neurological examination did not reveal any focal deficits. SKIN: No rashes. - Labs CBC & Chem 7: 06/12/20 05:07 06/12/20 05:07 Labs: Abnormal Lab Results - Last 24 Hours (Table) 06/12/20 06/12/20 Range/Units 05:07 05:07 WBC 13.9 H (3.8-10.6) k/uL RBC 3.77 L (4.30-5.90) m/uL Hgb 11.0 L (13.0-17.5) gm/dL Hct 34.8 L (39.0-53.0) % Neutrophils # 9.2 H (1.3-7.7) k/uL Sodium 135 L (137-145) mmol/L Carbon Dioxide 32 H (22-30) mmol/L BUN 53 H (9-20) mg/dL Creatinine 2.45 H (0.66-1.25) mg/dL Microbiology - Last 24 Hours (Table) 06/08/20 17:38 Blood Culture - Preliminary Blood No Growth after 72 hours Assessment and Plan Plan: -Acute hypoxic respiratory failure secondary to then start failure chronic systolic dysfunction with acute exacerbation: Patient is switched to oral Lasix and patient will also started on URIEL inhibitor and Aldactone patient has an EF of around 20%. -Acute renal failure: Secondary to prerenal azotemia from heart failure. C ontinue with Lasix as mentioned above -Metabolic in severity -Hematuria secondary to IV heparin along with a traumatic Ceballos related injury - hypertension Hyperlipidemia Epigastric esophageal reflux disease -COPD without any exacerbation -Benign prostatic hypertrophy
[2020-06-12] MEDS: MELATONIN 3 MG TABLET PO SCH (20:20)
[2020-06-12] MEDS: AMITRIPTYLINE HCL 50 MG TAB PO SCH (20:21)
[2020-06-12] MEDS: MIRTAZAPINE 45 MG TABLET PO SCH (21:06)
[2020-06-12] MEDS: HYDROmorphone 0.5 MG/0.5 ML SYRINGE IVP PRN (23:41)
[2020-06-13 06:10] LABS: Calcium 8.6 mg/dL (8.4-10.2); Potassium 4.5 mmol/L (3.5-5.1)
[2020-06-13 08:13] VITALS: BP 121/73; RESP 16; TEMP 98.2
[2020-06-13] MEDS: ASPIRIN 81 MG PO SCH (08:14)
[2020-06-13] MEDS: METOPROLOL TARTRATE 50 MG TAB PO SCH (08:14)
[2020-06-13] MEDS: SPIRONOLACTONE 25 MG TAB PO SCH (08:14)
[2020-06-13] MEDS: clonazePAM 1 MG TAB PO SCH (08:14)
[2020-06-13] MEDS: FUROSEMIDE 40 MG TAB PO SCH (08:14)
[2020-06-13] MEDS: lisinopriL 5 MG TAB PO SCH (08:14)
[2020-06-13] MEDS: HEPARIN SODIUM,PORCINE 5,000 UNIT/ML 1 ML VIAL SQ SCH (08:14)
[2020-06-13] MEDS: DOCUSATE 100 MG CAP PO SCH (08:14)
[2020-06-13] MEDS: TAMSULOSIN 0.4 MG CAP.ER.24H PO SCH (08:14)
[2020-06-13] MEDS: IPRATROPIUM-ALBUTEROL 3 ML NEB INHALATION SCH ×2 (08:49→12:28)
[2020-06-13] MEDS: SYMBICORT 160-4.5 MCG INHALER INHALATION SCH (08:49)
--- NOTE | 2020-06-13 10:45 | P.PN ---
Subjective Progress Note Date: 06/13/20 Principal diagnosis: Congestive heart failure secondary to systolic dysfunction This is a 69-year-old gentleman with a past medical history significant for hypertension, dyslipidemia, and chronic obstructive pulmonary disease as well as chronic renal failure presented to the emergency department complaining of shortness of breath. The patient somewhat is a poor historian. He stated that the shortness of breath started about 48 hours before he presented to the emergency department. He describes exertional dyspnea. No fever or chills or cough. He denies any symptoms of chest pain or chest discomfort, dizziness, heart racing, or syncope. No change in the weight. The patient does have history of COPD but he was not using an inhaler looks like it was prescribed to him in the past. 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 EMS was right and the patient was brought to the emergency department. The chest x-ray when he presented to the hospital showed findings consistent with congestive heart failure. The BNP came in to be elevated at almost 30,000. The d-dimer was checked and came in to be elevated. No CTA of the chest or VQ scan performed but currently the patient is on heparin. The hemoglobin is within normal limits. The creatinine came in to be elevated around 2.7 and the patient's baseline creatinine is lower. The first set of troponin came in to be within normal limits. The echocardiogram revealed impaired LV function was EF around 20%. The patient was seen today, 06/13/2020. He is feeling better overall. The shortness of breath has improved significantly. No symptoms of chest pain or chest discomfort. Hemodynamically he is stable. Consider coronary angiogram 1 the creatinine improved Objective - Vital Signs Vital signs: Vital Signs Temp 98.2 F 06/13/20 08:00 Pulse 92 06/13/20 09:03 Resp 16 06/13/20 08:00 BP 121/73 06/13/20 08:00 Pulse Ox 92 L 06/13/20 08:00 Intake & Output 06/12/20 06/13/20 06/13/20 18:59 06:59 18:59 Intake Total 400 240 Output Total 1350 Balance -950 240 Weight 65.3 kg 78 kg Intake: Oral 400 240 Output: Urine 1350 Other: Voiding Method Indwelling Catheter Indwelling Catheter Indwelling Catheter # Voids 2 - Constitutional General appearance: Present: no acute distress - Respiratory Respiratory: bilateral: CTA - Cardiovascular Rhythm: regular Heart sounds: normal: S1, S2 - Labs CBC & Chem 7: 06/12/20 05:07 06/13/20 05:36 Labs: Abnormal Lab Results - Last 24 Hours (Table) 06/13/20 Range/Units 05:36 Sodium 134 L (137-145) mmol/L Chloride 95 L (98-107) mmol/L Carbon Dioxide 32 H (22-30) mmol/L BUN 58 H (9-20) mg/dL Creatinine 2.38 H (0.66-1.25) mg/dL Microbiology - Last 24 Hours (Table) 06/08/20 17:38 Blood Culture - Preliminary Blood No Growth after 96 hours Assessment and Plan Assessment: Assessment #1 acute hypoxic respiratory failure #2 congestive heart failure exacerbation secondary to systolic dysfunction #3 possible COPD exacerbation #4 component of heart failure exacerbation #5 hypertension #6 dyslipidemia #7 renal failure #8 multiple comorbid conditions Plan #1 continue the current medical regimen #2 , severe coronary angiogram once the creatinine improved
--- NOTE | 2020-06-13 12:32 | P.PN ---
Subjective Progress Note Date: 06/13/20 Principal diagnosis: Acute hypoxic respiratory failure related to acute CHF exacerbation and acute exacerbation of COPD A 69-year-old male patient with known history of COPD and chronic kidney disease in addition to hypertension and hyperlipidemia who came into the hospital [facility] of two-week history of progressive worsening exertional dyspnea along with some orthopnea. No lower extremity edema. Minimal cough. No significant sputum production. No hemoptysis. No pleurisy. No chest pain. No fever or chills. The patient came into the emergency department and the patient was quite short of breath. The patient was briefly placed on BiPAP at a pressure of 12/5 cm of water with an FiO2 of 50%. This morning he was still on BiPAP and I took him off and put him on oxygen at 4 L per minute nasal cannula. The patient had an elevated d-dimer of 2.7. A VQ scan was ordered and the patient was started on IV heparin considering the possibility of pulmonary embolism. Noted the chest x-ray showed bilateral pulmonary infiltrates most consistent with CHF. In any rate, and evaluation was started in the patient had an accidental traumatic pole of his Ceballos catheter which resulted in significant amount of hematuria for which urology was consulted and the Ceballos catheter was kept in place. No clots. No outflow obstruction secondary to bleeding. The patient did have some difficulty with urination as the catheter got plugged and ultimately this was rectified by the urologist. The patient remains on IV Lasix for now and is producing adequate amount of urine output. Echocardiogram is pending for now. ProBNP level is quite elevated. No altered mentation. No ot her complaints otherwise for now. 06/10/2020 the patient is feeling better compared to yesterday. Less short of breath compared to yesterday. IV heparin was discontinued and the hematuria has also resolved. Nevertheless, the patient echocardiogram that showed impaired LV function with an ejection fraction around 20%. He has abnormal renal function with a creatinine of around 2.4. His renal function has somewhat improved compared to yesterday and ultimately plan is to do a cardiac catheterization once the patient's renal function further stabilizes. Consider the possibility of an ischemic cardiomyopathy underlying his CHF. Mother the patient has limited troponin leak. He was seen by cardiology today. He was started on a combination of URIEL inhibitor and Aldactone in addition to optimize his CHF. He has diuresed well with IV Lasix and the patient is a negative fluid balance of 4.2 L over the past 24 hours. Chest x-ray still showing some COPD along with increased interstitial markings consistent with CHF. Echocardiac Mateusz was noted. No altered mentation. No chest pain. No other complaints otherwise for now. 06/11/2020, patient is feeling well and is much less short of breath and he feels is very close to his baseline. He is on oxygen at 2 L per minute nasal cannula. He remains a negative fluid balance on IV Lasix and the patient was switched to oral Lasix. Chest x-ray shows improvement in the volume status. Renal function is stable. The patient is on a combination of Lasix and Aldactone for now. The patient also metoprolol 100 mg by mouth twice a day and hydralazine 10 mg on an as-needed basis in addition to lisinopril 2.5 mg by mouth daily. No nausea. No vomiting. No chest pain. No swelling lower extremities. No other complaints otherwise for now. Echo was noted. 06/12/2020, the patient is doing well. He is currently at 2 L about 2 by nasal cannula. No significant respiratory difficulties. Cardiac rhythm is sinus. Renal function stable. Sinus rhythm at the rate of 93 beats per minute. No shortness of breath. No chest pain. No other significant events overnight. There are no plans to proceed with any cardiac catheterization based on his underlying renal failure. He remains on a combination of Lasix and Aldactone. He is also metoprolol. He is on lisinopril and hydralazine on an as-needed basis. No signs of any ongoing COPD exacerbation his overall pulmonary status is stable for now. On 06/13/2020 patient seen in follow-up on the selective care unit, he is awake and alert, in no acute distress, doing well, lung sounds are essentially clear to auscultation, no rhonchi or wheezing. Less dyspneic, bronchospastic, room air pulse ox is 92%, hemodynamically stable, no, but the chest pain, patient has been afebrile. Ceballos catheter remains in place and patient is complaining of urine leaking around the catheter. Hematuria has resolved, urine is clear yellow, no blood in it. We'll check with the urology is the catheter needs to stay in place, today's labs have been reviewed, renal profile is relatively stable, maybe slightly improved, BUN is 58, creatinine is 2.38. Blood cultures have shown no growth. Patient remains on oral Lasix, he is on beta blockers, uriel inhibitors, Aldactone, and aspirin, cardiology is following, his had no compressive chest pain. He is on Symbicort and DuoNeb 4 nebulized treatments, his last bronchospastic and less dyspneic Objective - Vital Signs Vital signs: Vital Signs Temp 98.2 F 06/13/20 08:00 Pulse 92 06/13/20 09:03 Resp 16 06/13/20 08:00 BP 121/73 06/13/20 08:00 Pulse Ox 92 L 06/13/20 08:00 Intake & Output 06/12/20 06/13/20 06/13/20 18:59 06:59 18:59 Intake Total 400 240 Output Total 1350 Balance -950 240 Weight 65.3 kg 78 kg Intake: Oral 400 240 Output: Urine 1350 Other: Voiding Method Indwelling Catheter Indwelling Catheter Indwelling Catheter # Voids 2 - Exam GENERAL EXAM: Alert, very pleasant, 70-year-old white male on room air with a pulse ox of 92%, comfortable in no apparent distress. HEAD: Normocephalic/atraumatic. EYES: Normal reaction of pupils, equal size. Conjunctiva pink, sclera white. NOSE: Clear with pink turbinates. THROAT: No erythema or exudates. NECK: No masses, no JVD, no thyroid enlargement, no adenopathy. CHEST: No chest wall deformity. Symmetrical expansion. LUNGS: Equal air entry with no crackles, wheeze, rhonchi or dullness. CVS: Regular rate and rhythm, normal S1 and S2, no gallops, no murmurs, no rubs ABDOMEN: Soft, nontender. No hepatosplenomegaly, normal bowel sounds, no guarding or rigidity. EXTREMITIES: No clubbing, no edema, no cyanosis, 2+ pulses and upper and lower extremities. MUSCULOSKELETAL: Muscle strength and tone normal. SPINE: No scoliosis or deformity SKIN: No rashes CENTRAL NERVOUS SYSTEM: Alert and oriented -3. No focal deficits, tone is normal in all 4 extremities. PSYCHIATRIC: Alert and oriented -3. Appropriate affect. Intact judgment and insight. - Labs CBC & Chem 7: 06/12/20 05:07 06/13/20 05:36 Labs: Abnormal Lab Results - Last 24 Hours (Table) 06/13/20 Range/Units 05:36 Sodium 134 L (137-145) mmol/L Chloride 95 L (98-107) mmol/L Carbon Dioxide 32 H (22-30) mmol/L BUN 58 H (9-20) mg/dL Creatinine 2.38 H (0.66-1.25) mg/dL Microbiology - Last 24 Hours (Table) 06/08/20 17:38 Blood Culture - Preliminary Blood No Growth after 96 hours Assessment and Plan Plan: Assessment: 1 acute hypoxic respiratory failure, predominantly related to CHF exacerbation along with a component of COPD. The patient was found to have severe cardiomyopathy with impaired LV function. The patient was optimized in terms of his heart failure. COPD Zosyn stable for now. He is currently on 2 L of oxygen by nasal cannula with marked improvement in his oxygenation. 2 acute hematuria, traumatic and the patient was seen by urology and a Ceballos catheter in place, improved and the patient is currently off IV heparin. The hematuria is completely subsided. 3 chronic kidney disease, stage 3-4, and ultrasound the kidneys showing chronic medical renal disease involving the left kidney which is atrophic and some mild hydronephrosis of the right kidney. 4 hypertension 5 hyperlipidemia 6 COPD, maintained on Symbicort and Ventolin on a when necessary basis 7 chronic anxiety/depression Plan: Continue current medical treatment, patient is doing well, he stable for discharge home today from pulmonary perspective, we'll check with urology in regards to the Ceballos catheter, and whether it needs to stay in for any length of time, patient is complaining of urine leaking around the catheter. His breathing is stable, increase activity as tolerated, no complaints of chest pain, vital signs have been stable. Patient will need outpatient follow-up with Dr. Tee in the office and 7-10 days I performed a history & physical examination of the patient and discussed their management with my nurse practitioner, Beatrice Child. I reviewed the nurse practitioner's note and agree with the documented findings and plan of care. Lung sounds are positive for diminished breath sounds. The findings and the impression was discussed with the patient. I attest to the documentation by the nurse practitioner. Time with Patient: Less than 30
[2020-06-13 12:39] VITALS: PULSE 84
--- NOTE | 2020-06-13 12:59 | P.DS ---
Providers Date of admission: 06/08/20 19:08 Attending physician: Mingo Simmons MD Consults: 06/08/20 19:08 Consult Physician Routine Consulting Provider: Ashvin Rivas Consult Reason/Comments: icu patient Do you want consulting provider notified?: Already Contacted Consult Physician Routine Consulting Provider: Rashad Cardoso Consult Reason/Comments: heart failure Do you want consulting provider notified?: Yes 06/09/20 04:19 Consult Physician Routine Consulting Provider: Richie Villa Consult Reason/Comments: urethral trauma, self removed wynn catheter, on heparin drip Do you want consulting provider notified?: Yes, Notify in am Primary care physician: [facility] Course: Patient is a pleasant 64-year-old male admitted for acute respiratory failure secondary to pulmonary edema from congestive heart failure chronic systolic dysfunction with acute exacerbation patient also had mildly elevated troponins cardiology is following the patient. Patient diuresed well had a negative fluid balance of her round 4 L. Patient is feeling much better today. Echo cardiac exam showed EF of around 20% 06/11/2020 Patient is doing much better will transfer out of ICU. Patient's Lasix is being switched to oral patient's creatinine is bit worse patient is being started on URIEL inhibitor because of which will need to closely monitor serum creatinine and other electrolytes 06/12/2020 Patient is doing much better today patient is being transferred out of ICU with the patient was started on URIEL inhibitor because of which a cardiology is recommending monitoring kidney function as his creatinine to start it is high. 06/13/2020 Patient's kidney function remains stable patient is euvolemic at this time patient still has a Wynn catheter. We'll check with urology regarding ma nagement of this fully catheter. We'll also discuss with cardiology regarding the need of from pacemaker/AICD/LifeVest because of his poor EF PHYSICAL EXAMINATION: GENERAL: The patient is alert and oriented x3, not in any acute distress. Well developed, well nourished. HEENT: Pupils are round and equally reacting to light. EOMI. No scleral icterus. No conjunctival pallor. Normocephalic, atraumatic. No pharyngeal erythema. No thyromegaly. CARDIOVASCULAR: S1 and S2 present. No murmurs, rubs, or gallops. PULMONARY: Chest is clear to auscultation, no wheezing or crackles. ABDOMEN: Soft, nontender, nondistended, normoactive bowel sounds. No palpable organomegaly. MUSCULOSKELETAL: No joint swelling or deformity. EXTREMITIES: No cyanosis, clubbing, or pedal edema. NEUROLOGICAL: Gross neurological examination did not reveal any focal deficits. SKIN: No rashes. Assessment and Plan Plan: -Acute hypoxic respiratory failure secondary to congestive heart failure chronic systolic dysfunction with acute exacerbation: patient has an EF of around 20%. -Acute renal failure: Secondary to prerenal azotemia from heart failure. Continue with Lasix as mentioned above -Metabolic in severity -Hematuria secondary to IV heparin along with a traumatic Wynn related injury resolved now - hypertension Hyperlipidemia Epigastric esophageal reflux disease -COPD without any exacerbation -Benign prostatic hypertrophy Patient Condition at Discharge: Critical Plan - Discharge Summary Discharge Rx Participant: Yes New Discharge Prescriptions: New Spironolactone [Aldactone] 25 mg PO DAILY #30 tab Aspirin 81 mg PO DAILY #30 chew Furosemide [Lasix] 40 mg PO BID@0900,1600 #30 tab Metoprolol Tartrate [Lopressor] 100 mg PO BID #60 tab lisinopriL [Zestril] 10 mg PO DAILY #30 tab Continue clonazePAM [KlonoPIN] 1 mg PO BID Tamsulosin [Flomax] 0.4 mg PO DAILY Simvastatin [Zocor] 20 mg PO HS Mirtazapine [Remeron] 45 mg PO HS Cholecalciferol [Vitamin D3 (25 Mcg = 1000 Iu)] 1,000 unit PO DAILY Amitriptyline HCl [Elavil] 100 mg PO HS polyethylene glycoL 3350 [Miralax] 17 gm PO DAILY Multivitamins, Thera [Multivitamin (formulary)] 1 tab PO DAILY Melatonin 3 mg PO HS hydrOXYzine HCL [Atarax] 25 mg PO BID PRN PRN Reason: ANXIETY/ITCHING Famotidine [Pepcid] 20 mg PO BID PRN PRN Reason: Heartburn Docusate [Colace] 200 mg PO DAILY Budesonide/Formoterol Fumarate [Symbicort 160-4.5 Mcg Inhaler] 2 puff INHALATION RT-BID Albuterol Inhaler [Ventolin Hfa Inhaler] 1 puff INHALATION RT-QID PRN PRN Reason: Shortness Of Breath Discontinued amLODIPine [Norvasc] 10 mg PO DAILY Metoprolol Tartrate [Lopressor] 100 mg PO HS Metoprolol Tartrate [Lopressor] 75 mg PO DAILY Discharge Medication List Amitriptyline HCl [Elavil] 100 mg PO HS 06/04/16 [History] Cholecalciferol [Vitamin D3 (25 Mcg = 1000 Iu)] 1,000 unit PO DAILY 06/04/16 [History] Mirtazapine [Remeron] 45 mg PO HS 06/04/16 [History] Simvastatin [Zocor] 20 mg PO HS 06/04/16 [History] Tamsulosin [Flomax] 0.4 mg PO DAILY 06/04/16 [History] clonazePAM [KlonoPIN] 1 mg PO BID 06/04/16 [History] Albuterol Inhaler [Ventolin Hfa Inhaler] 1 puff INHALATION RT-QID PRN 06/08/20 [History] Budesonide/Formoterol Fumarate [Symbicort 160-4.5 Mcg Inhaler] 2 puff INHALATION RT-BID 06/08/20 [History] Docusate [Colace] 200 mg PO DAILY 06/08/20 [History] Famotidine [Pepcid] 20 mg PO BID PRN 06/08/20 [History] Melatonin 3 mg PO HS 06/08/20 [History] Multivitamins, Thera [Multivitamin (formulary)] 1 tab PO DAILY 06/08/20 [History] hydrOXYzine HCL [Atarax] 25 mg PO BID PRN 06/08/20 [History] polyethylene glycoL 3350 [Miralax] 17 gm PO DAILY 06/08/20 [History] Aspirin 81 mg PO DAILY #30 chew 06/13/20 [Rx] Furosemide [Lasix] 40 mg PO BID@0900,1600 #30 tab 06/13/20 [Rx] Metoprolol Tartrate [Lopressor] 100 mg PO BID #60 tab 06/13/20 [Rx] Spironolactone [Aldactone] 25 mg PO DAILY #30 tab 06/13/20 [Rx] lisinopriL [Zestril] 10 mg PO DAILY #30 tab 06/13/20 [Rx] Follow up Appointment(s)/Referral(s): Jaqueline Leija MD [STAFF PHYSICIAN] - 1 Week (Unable to get through. Please call to schedule appointment) Rashad Cardoso MD [STAFF PHYSICIAN] - 06/26/20 4:15 pm () Charles Harley MD [STAFF PHYSICIAN] - 06/18/20 9:40 am (Tuesday) Fanny Tee MD [STAFF PHYSICIAN] - 1 Week [facility],Clinic [Primary Care Provider] - 3 Days (Unable to get through. Please call to schedule appointment) Ambulatory/Diagnostic Orders: Basic Metabolic Panel [LAB.AMB] Time Frame: 3 Days, Location: None Selected Patient Instructions/Handouts: Heart Failure (DC), Acute Kidney Injury (DC), Wynn Catheter Placement and Care (DC) Activity/Diet/Wound Care/Special Instructions: contact CM if indigent funds needed at discharge. Discharge Disposition: HOME SELF-CARE
== END 2020-06-13 13:26 | disposition home or self-care (01) | DRG 291 ==
LOC: EC 17:19 → 2SICU 19:08 → 3SCARD 06-12 18:15
PROVIDERS: ADMIT Internal Medicine; ATTEND Internal Medicine
PROC: 5A09457 Assistance with Respiratory Ventilation, 24-96 Consecutive Hours, Continuous Positive Airway Pressure (ICD-10-PCS; 2020-06-08)
PROC: 0T9B80Z Drainage of Bladder with Drainage Device, Via Natural or Artificial Opening Endoscopic (ICD-10-PCS; principal; 2020-06-09)
DX: I13.0 Hypertensive heart and chronic kidney disease with heart failure and stage 1 through stage 4 chronic kidney disease, or unspecified chronic kidney disease (principal); J96.01 Acute respiratory failure with hypoxia; G93.41 Metabolic encephalopathy; I50.23 Acute on chronic systolic (congestive) heart failure; N17.9 Acute kidney failure, unspecified; N13.30 Unspecified hydronephrosis; S37.30XA Unspecified injury of urethra, initial encounter; Z11.59 Encounter for screening for other viral diseases; E78.5 Hyperlipidemia, unspecified; J44.9 Chronic obstructive pulmonary disease, unspecified; R79.89 Other specified abnormal findings of blood chemistry; I44.7 Left bundle-branch block, unspecified; K21.9 Gastro-esophageal reflux disease without esophagitis; N40.0 Benign prostatic hyperplasia without lower urinary tract symptoms; F17.210 Nicotine dependence, cigarettes, uncomplicated; F41.9 Anxiety disorder, unspecified; F32.9 Major depressive disorder, single episode, unspecified; R40.2362 Coma scale, best motor response, obeys commands, at arrival to emergency department; R40.2142 Coma scale, eyes open, spontaneous, at arrival to emergency department; R40.2252 Coma scale, best verbal response, oriented, at arrival to emergency department; G25.81 Restless legs syndrome; R31.9 Hematuria, unspecified; N18.3 Chronic kidney disease, stage 3 (moderate); N36.5 Urethral false passage; I42.9 Cardiomyopathy, unspecified; T83.031A Leakage of indwelling urethral catheter, initial encounter; Y73.8 Miscellaneous gastroenterology and urology devices associated with adverse incidents, not elsewhere classified; Z85.038 Personal history of other malignant neoplasm of large intestine; Z79.51 Long term (current) use of inhaled steroids; Z79.899 Other long term (current) drug therapy; Z88.8 Allergy status to other drugs, medicaments and biological substances; Z88.5 Allergy status to narcotic agent; Z98.890 Other specified postprocedural states; Z90.49 Acquired absence of other specified parts of digestive tract; Z98.1 Arthrodesis status; Z90.89 Acquired absence of other organs; Z86.2 Personal history of diseases of the blood and blood-forming organs and certain disorders involving the immune mechanism; Z80.3 Family history of malignant neoplasm of breast; Z83.2 Family history of diseases of the blood and blood-forming organs and certain disorders involving the immune mechanism; Z82.5 Family history of asthma and other chronic lower respiratory diseases; Z82.41 Family history of sudden cardiac death
CPT/HCPCS: 36415; 36600; 71045; 76770; 78582; 80048; 80053; 82805; 83605; 83735; 83880; 84484; 85025; 85379; 85610; 85730; 87040; 93005; 93306; 93970; 94640; 94660; 96365; 96367; 96368; 96374; 96375; 96376; 99291

== ENCOUNTER 2020-06-17 01:35 | Emergency (ER) | payer MEDICARE ==
[2020-06-17 01:41] VITALS: RESP 18
[2020-06-17] MEDS ORDERED: diphenhydrAMINE 50 MG/ML 1 ML VIAL IVP STA (01:46)
[2020-06-17] MEDS ORDERED: TRANEXAMIC ACID 1,000 MG in SODIUM CHLORIDE 0.9% 100 ML IVPB ONE (01:46)
[2020-06-17] MEDS ORDERED: FAMOTIDINE 20 MG/2 ML VIAL IV STA (01:46)
[2020-06-17] MEDS ORDERED: methylPREDNISolone SOD SUCCI 125 MG/2 ML VIAL IV STA (01:46)
--- NOTE | 2020-06-17 01:58 | ED ---
General Adult HPI - General Source: patient Mode of arrival: ambulatory Limitations: no limitations <Nicola Fernandez - Last Filed: 06/17/20 02:44> <Brittnee Ford - Last Filed: 06/17/20 04:35> - General Chief complaint: Recheck/Abnormal Lab/Rx Stated complaint: Allergic Reaction Time Seen by Provider: 06/17/20 01:42 - History of Present Illness Initial comments: This a 70-year-old male presents emergency Department chief complaint ALLERGIC reaction. Patient states that he has tongue swelling started approximate one hour ago. Patient states that he was started on lisinopril 5 days ago. Patient states that he had reaction the past in which she had scrotal swelling. He states that he was discharged in the hospital on lisinopril stating that they did not feel this was true ALLERGIC reaction. Patient states she has no difficulty swallowing no shortness of breath no rash. Patient states is swollen her left side of his tongue. (Nicola Fernandez) - Related Data Home Medications Medication Instructions Recorded Confirmed Amitriptyline HCl [Elavil] 100 mg PO HS 06/04/16 06/08/20 Cholecalciferol [Vitamin D3 (25 1,000 unit PO DAILY 06/04/16 06/08/20 Mcg = 1000 Iu)] Mirtazapine [Remeron] 45 mg PO HS 06/04/16 06/08/20 Simvastatin [Zocor] 20 mg PO HS 06/04/16 06/08/20 Tamsulosin [Flomax] 0.4 mg PO DAILY 06/04/16 06/08/20 clonazePAM [KlonoPIN] 1 mg PO BID 06/04/16 06/08/20 Albuterol Inhaler [Ventolin Hfa 1 puff INHALATION RT-QID PRN 06/08/20 06/08/20 Inhaler] Budesonide/Formoterol Fumarate 2 puff INHALATION RT-BID 06/08/20 06/08/20 [Symbicort 160-4.5 Mcg Inhaler] Docusate [Colace] 200 mg PO DAILY 06/08/20 06/08/20 Famotidine [Pepcid] 20 mg PO BID PRN 06/08/20 06/08/20 Melatonin 3 mg PO HS 06/08/20 06/08/20 Multivitamins, Thera [Multivitamin 1 tab PO DAILY 06/08/20 06/08/20 (formulary)] hydrOXYzine HCL [Atarax] 25 mg PO BID PRN 06/08/20 06/08/20 polyethylene glycoL 3350 [Miralax] 17 gm PO DAILY 06/08/20 06/08/20 Previous Rx's Medication Instructions Recorded Aspirin 81 mg PO DAILY #30 chew 06/13/20 Furosemide [Lasix] 40 mg PO BID@0900,1600 #30 tab 06/13/20 Metoprolol Tartrate [Lopressor] 100 mg PO BID #60 tab 06/13/20 Spironolactone [Aldactone] 25 mg PO DAILY #30 tab 06/13/20 lisinopriL [Zestril] 10 mg PO DAILY #30 tab 06/13/20 Allergies Allergy/AdvReac Type Severity Reaction Status Date / Time lisinopril Allergy swollen Verified 06/17/20 01:41 testicle,rash morphine AdvReac Nausea & Verified 06/17/20 01:41 Vomiting Review of Systems ROS Other: All systems not noted in ROS Statement are negative. <Nicola Fernandez - Last Filed: 06/17/20 02:44> ROS Other: All systems not noted in ROS Statement are negative. <Brittnee Ford - Last Filed: 06/17/20 04:35> ROS Statement: Those systems with pertinent positive or pertinent negative responses have been documented in the HPI. Past Medical History Past Medical History: Cancer, COPD, GERD/Reflux, Hyperlipidemia, Hypertension, Prostate Disorder Additional Past Medical History / Comment(s): cancerous polyp,enlarged prostate,HEMORRHOIDS, BLOOD IN STOOL, RESTLESS LEG - intermittent, colon Cancer History of Any Multi-Drug Resistant Organisms: None Reported Past Surgical History: Appendectomy, Orthopedic Surgery Additional Past Surgical History / Comment(s): ACL SX RT KNEE X3, LEFT HEEL FUSION, LEFT ARM BICEP SX, NASAL SX R/T ULCER, colon resection, COLONOSCOPY, Past Anesthesia/Blood Transfusion Reactions: No Reported Reaction Past Psychological History: Anxiety, Depression Smoking Status: Current every day smoker Past Alcohol Use History: None Reported Past Drug Use History: None Reported - Past Family History Mother Family Medical History: Cancer Additional Family Medical History / Comment(s): BREAST Sister(s) Family Medical History: Deep Vein Thrombosis (DVT) Father Family Medical History: COPD Additional Family Medical History / Comment(s): FROM CARDIAC ARREST <Nicola Fernandez - Last Filed: 06/17/20 02:44> General Exam Limitations: no limitations General appearance: alert, in no apparent distress Head exam: Present: atraumatic, normocephalic, normal inspection Eye exam: Present: normal appearance, PERRL, EOMI. Absent: scleral icterus, conjunctival injection, periorbital swelling ENT exam: Present: mucous membranes moist, TM's normal bilaterally, normal external ear exam. Absent: normal exam, normal oropharynx (Moderate swelling on the left side of the tongue this is unilateral tongue swelling, swallowing secretions well) Neck exam: Present: normal inspection, full ROM. Absent: tenderness, meningismus, lymphadenopathy Respiratory exam: Present: normal lung sounds bilaterally. Absent: respiratory distress, wheezes, rales, rhonchi, stridor Cardiovascular Exam: Present: regular rate, normal rhythm, normal heart sounds. Absent: systolic murmur, diastolic murmur, rubs, gallop, clicks GI/Abdominal exam: Present: soft, normal bowel sounds. Absent: distended, tenderness, guarding, rebound, rigid Neurological exam: Present: alert, oriented X3 Skin exam: Present: warm, dry, intact, normal color. Absent: rash <Nicola Fernandez - Last Filed: 06/17/20 02:44> Course <Nicola Fernandez - Last Filed: 06/17/20 02:44> Vital Signs 06/17/20 06/17/20 01:36 03:08 Temperature 98.8 F 98.9 F Pulse Rate 86 78 Respiratory 18 18 Rate Blood Pressure 129/65 133/58 O2 Sat by Pulse 97 96 Oximetry - Reevaluation(s) Reevaluation #1: 06/17/20 02:44 Patient reevaluated, symptoms are improving. (Nicola Fernandez) Medical Decision Making <Nicola Fernandez - Last Filed: 06/17/20 02:44> <Brittnee Ford - Last Filed: 06/17/20 04:35> - Medical Decision Making 62-year-old presented for some swelling related to URIEL inhibitor. Patient was given solumedrdol, pepcid, benadryl and TXA with symptoms improvement. Patient discharged in stable condition. Patient advised follow-up PCP tomorrow discussed new blood pressure medication. (Nicola Fernandez) Patient was observed in the emergency department for 2 and half hours, angioedema improved, patient remained awake, alert and oriented speaking clearly with no additional complaints. Patient medically clear for discharge home and continued outpatient management. (Brittnee Ford) Disposition Is patient prescribed a controlled substance at d/c from ED?: No Time of Disposition: 02:46 <Nicola Fernandez - Last Filed: 06/17/20 02:44> <Brittnee Ford - Last Filed: 06/17/20 04:35> Clinical Impression: Angioedema due to angiotensin converting enzyme inhibitor (URIEL-I) Disposition: HOME SELF-CARE Condition: Stable Instructions (If sedation given, give patient instructions): Angioedema (ED) Additional Instructions: Please contact PCP regarding new blood pressure medication. Please return to the Emergency Department if symptoms worsen or any other concerns. Referrals: [facility],Clinic [Primary Care Provider] - 1-2 days
[2020-06-17 03:10] VITALS: BP 133/58; PULSE 78; TEMP 98.9
== END 2020-06-17 03:56 | disposition home or self-care (01) ==
LOC: EC 01:35
DX: T78.3XXA Angioneurotic edema, initial encounter (principal); J44.9 Chronic obstructive pulmonary disease, unspecified; K21.9 Gastro-esophageal reflux disease without esophagitis; I10 Essential (primary) hypertension; E78.5 Hyperlipidemia, unspecified; F41.9 Anxiety disorder, unspecified; F32.9 Major depressive disorder, single episode, unspecified; F17.200 Nicotine dependence, unspecified, uncomplicated; Z79.51 Long term (current) use of inhaled steroids; Z79.899 Other long term (current) drug therapy; Z88.5 Allergy status to narcotic agent; Z88.8 Allergy status to other drugs, medicaments and biological substances; Z85.038 Personal history of other malignant neoplasm of large intestine
CPT/HCPCS: 99283; 96365; 96375 ×3; J1200; J2930

== ENCOUNTER 2020-07-07 16:50 | Inpatient (IN) | payer MEDICARE ==
[2020-07-07] MEDS ORDERED: IPRATROPIUM-ALBUTEROL 3 ML NEB INHALATION STA (17:14)
--- NOTE | 2020-07-07 17:21 | ED ---
General Adult HPI - General Chief complaint: Shortness of Breath Stated complaint: VÍCTOR Time Seen by Provider: 07/07/20 16:57 Source: patient, family, RN notes reviewed Mode of arrival: wheelchair Limitations: no limitations - History of Present Illness Initial comments: Patient is a pleasant 62-year-old male presenting to the emergency Department with complaints of difficulty in breathing. Onset of symptoms was earlier this morning. Patient does have history of COPD and recent history of CHF. Patient recently stopped smoking. Patient does complain of increasing dyspnea with exertion as well as orthopnea. No leg pain or leg swelling. Patient just recently discontinued smoking. - Related Data Home Medications Medication Instructions Recorded Confirmed Amitriptyline HCl [Elavil] 100 mg PO HS 06/04/16 06/08/20 Cholecalciferol [Vitamin D3 (25 1,000 unit PO DAILY 06/04/16 06/08/20 Mcg = 1000 Iu)] Mirtazapine [Remeron] 45 mg PO HS 06/04/16 06/08/20 Simvastatin [Zocor] 20 mg PO HS 06/04/16 06/08/20 Tamsulosin [Flomax] 0.4 mg PO DAILY 06/04/16 06/08/20 clonazePAM [KlonoPIN] 1 mg PO BID 06/04/16 06/08/20 Albuterol Inhaler [Ventolin Hfa 1 puff INHALATION RT-QID PRN 06/08/20 06/08/20 Inhaler] Budesonide/Formoterol Fumarate 2 puff INHALATION RT-BID 06/08/20 06/08/20 [Symbicort 160-4.5 Mcg Inhaler] Docusate [Colace] 200 mg PO DAILY 06/08/20 06/08/20 Famotidine [Pepcid] 20 mg PO BID PRN 06/08/20 06/08/20 Melatonin 3 mg PO HS 06/08/20 06/08/20 Multivitamins, Thera [Multivitamin 1 tab PO DAILY 06/08/20 06/08/20 (formulary)] hydrOXYzine HCL [Atarax] 25 mg PO BID PRN 06/08/20 06/08/20 polyethylene glycoL 3350 [Miralax] 17 gm PO DAILY 06/08/20 06/08/20 Previous Rx's Medication Instructions Recorded Aspirin 81 mg PO DAILY #30 chew 06/13/20 Furosemide [Lasix] 40 mg PO BID@0900,1600 #30 tab 06/13/20 Metoprolol Tartrate [Lopressor] 100 mg PO BID #60 tab 06/13/20 Spironolactone [Aldactone] 25 mg PO DAILY #30 tab 06/13/20 lisinopriL [Zestril] 10 mg PO DAILY #30 tab 06/13/20 Allergies Allergy/AdvReac Type Severity Reaction Status Date / Time lisinopril Allergy swollen Verified 07/07/20 16:50 testicle,rash morphine AdvReac Nausea & Verified 07/07/20 16:50 Vomiting Review of Systems ROS Statement: Those systems with pertinent positive or pertinent negative responses have been documented in the HPI. ROS Other: All systems not noted in ROS Statement are negative. Constitutional: Denies: fever Eyes: Denies: eye pain ENT: Denies: ear pain Respiratory: Reports: dyspnea. Denies: cough Cardiovascular: Reports: chest pain Endocrine: Denies: fatigue Gastrointestinal: Denies: abdominal pain Genitourinary: Denies: dysuria Musculoskeletal: Denies: back pain Skin: Denies: rash Neurological: Denies: weakness Past Medical History Past Medical History: Cancer, COPD, GERD/Reflux, Hyperlipidemia, Hypertension, Prostate Disorder Additional Past Medical History / Comment(s): cancerous polyp,enlarged prostate,HEMORRHOIDS, BLOOD IN STOOL, RESTLESS LEG - intermittent, colon Cancer History of Any Multi-Drug Resistant Organisms: None Reported Past Surgical History: Appendectomy, Orthopedic Surgery Additional Past Surgical History / Comment(s): ACL SX RT KNEE X3, LEFT HEEL FUSION, LEFT ARM BICEP SX, NASAL SX R/T ULCER, colon resection, COLONOSCOPY, Past Anesthesia/Blood Transfusion Reactions: No Reported Reaction Past Psychological History: Anxiety, Depression Smoking Status: Current every day smoker Past Alcohol Use History: None Reported Past Drug Use History: None Reported - Past Family History Mother Family Medical History: Cancer Additional Family Medical History / Comment(s): BREAST Sister(s) Family Medical History: Deep Vein Thrombosis (DVT) Father Family Medical History: COPD Additional Family Medical History / Comment(s): FROM CARDIAC ARREST General Exam Limitations: no limitations General appearance: alert, in no apparent distress Head exam: Present: normocephalic Eye exam: Present: normal appearance Neck exam: Present: normal inspection Respiratory exam: Present: wheezes Cardiovascular Exam: Present: regular rate, normal rhythm Expanded Peripheral pulses: 2+: Radial (R), Radial (L), Dorsalis Pedis (R), Dorsalis Pedis (L) GI/Abdominal exam: Present: soft. Absent: tenderness Extremities exam: Present: normal inspection, other (Clubbing of the fingernail). Absent: pedal edema, calf tenderness Neurological exam: Present: alert Psychiatric exam: Present: normal affect, normal mood Skin exam: Present: normal color Course Vital Signs 07/07/20 07/07/20 07/07/20 16:50 17:30 17:48 Temperature 97.8 F Pulse Rate 79 104 H Respiratory 16 Rate Blood Pressure 167/89 O2 Sat by Pulse 93 L 94 L Oximetry 07/07/20 07/07/20 07/07/20 17:56 18:26 19:01 Temperature Pulse Rate 101 H 115 H 105 H Respiratory 26 H 22 Rate Blood Pressure 175/116 167/101 O2 Sat by Pulse 100 100 Oximetry EKG Findings - EKG Comments: EKG Findings:: Sinus tachycardia 103. PVC. AR 170. QRS 104. QT 388. QTC 508. Normal axis. Normal QRS. Nonspecific ST-T. Medical Decision Making - Medical Decision Making Patient reevaluated several times. Patient did become significant a short of breath. Chest x-ray showing pulmonary edema. Patient was placed on BiPAP with significant improvement of symptoms. Patient and family updated. Case was discussed with Dr. Padilla, who will admit this va patient. - Lab Data Result diagrams: 07/07/20 17:32 07/07/20 17:32 Lab Results 07/07/20 07/07/20 07/07/20 Range/Units 17:32 17:32 17:32 WBC 9.8 (3.8-10.6) k/uL RBC 3.78 L (4.30-5.90) m/uL Hgb 11.0 L (13.0-17.5) gm/dL Hct 34.6 L (39.0-53.0) % MCV 91.6 (80.0-100.0) fL MCH 29.1 (25.0-35.0) pg MCHC 31.8 (31.0-37.0) g/dL RDW 15.2 (11.5-15.5) % Plt Count 374 (150-450) k/uL Neutrophils % 75 % Lymphocytes % 17 % Monocytes % 4 % Eosinophils % 3 % Basophils % 0 % Neutrophils # 7.3 (1.3-7.7) k/uL Lymphocytes # 1.7 (1.0-4.8) k/uL Monocytes # 0.4 (0-1.0) k/uL Eosinophils # 0.3 (0-0.7) k/uL Basophils # 0.0 (0-0.2) k/uL PT 10.0 (9.0-12.0) sec INR 1.0 (<1.2) APTT 25.8 (22.0-30.0) sec D-Dimer (<0.60) mg/L FEU Sodium 136 L (137-145) mmol/L Potassium 4.6 (3.5-5.1) mmol/L Chloride 111 H (98-107) mmol/L Carbon Dioxide 18 L (22-30) mmol/L Anion Gap 7 mmol/L BUN 19 (9-20) mg/dL Creatinine 2.37 H (0.66-1.25) mg/dL Est GFR (CKD-EPI)AfAm 31 (>60 ml/min/1.73 sqM) Est GFR (CKD-EPI)NonAf 27 (>60 ml/min/1.73 sqM) Glucose 104 H (74-99) mg/dL Plasma Lactic Acid Dipesh (0.7-2.0) mmol/L Calcium 8.7 (8.4-10.2) mg/dL Total Bilirubin 0.4 (0.2-1.3) mg/dL AST 31 (17-59) U/L ALT 24 (4-49) U/L Alkaline Phosphatase 71 (38-126) U/L Troponin I (0.000-0.034) ng/mL C-Reactive Protein (<10.0) mg/L NT-Pro-B Natriuret Pep pg/mL Total Protein 6.6 (6.3-8.2) g/dL Albumin 3.9 (3.5-5.0) g/dL 07/07/20 07/07/20 07/07/20 Range/Units 17:32 17:32 17:32 WBC (3.8-10.6) k/uL RBC (4.30-5.90) m/uL Hgb (13.0-17.5) gm/dL Hct (39.0-53.0) % MCV (80.0-100.0) fL MCH (25.0-35.0) pg MCHC (31.0-37.0) g/dL RDW (11.5-15.5) % Plt Count (150-450) k/uL Neutrophils % % Lymphocytes % % Monocytes % % Eosinophils % % Basophils % % Neutrophils # (1.3-7.7) k/uL Lymphocytes # (1.0-4.8) k/uL Monocytes # (0-1.0) k/uL Eosinophils # (0-0.7) k/uL Basophils # (0-0.2) k/uL PT (9.0-12.0) sec INR (<1.2) APTT (22.0-30.0) sec D-Dimer (<0.60) mg/L FEU Sodium (137-145) mmol/L Potassium (3.5-5.1) mmol/L Chloride (98-107) mmol/L Carbon Dioxide (22-30) mmol/L Anion Gap mmol/L BUN (9-20) mg/dL Creatinine (0.66-1.25) mg/dL Est GFR (CKD-EPI)AfAm (>60 ml/min/1.73 sqM) Est GFR (CKD-EPI)NonAf (>60 ml/min/1.73 sqM) Glucose (74-99) mg/dL Plasma Lactic Acid Dipesh 1.3 (0.7-2.0) mmol/L Calcium (8.4-10.2) mg/dL Total Bilirubin (0.2-1.3) mg/dL AST (17-59) U/L ALT (4-49) U/L Alkaline Phosphatase (38-126) U/L Troponin I <0.012 (0.000-0.034) ng/mL C-Reactive Protein (<10.0) mg/L NT-Pro-B Natriuret Pep 16643 pg/mL Total Protein (6.3-8.2) g/dL Albumin (3.5-5.0) g/dL 07/07/20 07/07/20 Range/Units 17:32 18:30 WBC (3.8-10.6) k/uL RBC (4.30-5.90) m/uL Hgb (13.0-17.5) gm/dL Hct (39.0-53.0) % MCV (80.0-100.0) fL MCH (25.0-35.0) pg MCHC (31.0-37.0) g/dL RDW (11.5-15.5) % Plt Count (150-450) k/uL Neutrophils % % Lymphocytes % % Monocytes % % Eosinophils % % Basophils % % Neutrophils # (1.3-7.7) k/uL Lymphocytes # (1.0-4.8) k/uL Monocytes # (0-1.0) k/uL Eosinophils # (0-0.7) k/uL Basophils # (0-0.2) k/uL PT (9.0-12.0) sec INR (<1.2) APTT (22.0-30.0) sec D-Dimer 2.04 H (<0.60) mg/L FEU Sodium (137-145) mmol/L Potassium (3.5-5.1) mmol/L Chloride (98-107) mmol/L Carbon Dioxide (22-30) mmol/L Anion Gap mmol/L BUN (9-20) mg/dL Creatinine (0.66-1.25) mg/dL Est GFR (CKD-EPI)AfAm (>60 ml/min/1.73 sqM) Est GFR (CKD-EPI)NonAf (>60 ml/min/1.73 sqM) Glucose (74-99) mg/dL Plasma Lactic Acid Dipesh (0.7-2.0) mmol/L Calcium (8.4-10.2) mg/dL Total Bilirubin (0.2-1.3) mg/dL AST (17-59) U/L ALT (4-49) U/L Alkaline Phosphatase (38-126) U/L Troponin I (0.000-0.034) ng/mL C-Reactive Protein 8.5 (<10.0) mg/L NT-Pro-B Natriuret Pep pg/mL Total Protein (6.3-8.2) g/dL Albumin (3.5-5.0) g/dL - Radiology Data Radiology results: image reviewed (Pulmonary edema) Critical Care Time Critical Care Time: Yes Total Critical Care Time: 33 Disposition Clinical Impression: Acute exacerbation of chronic obstructive pulmonary disease, Acute respiratory failure, Pulmonary edema Disposition: ADMITTED IP TO THIS HOSP Condition: Serious Is patient prescribed a controlled substance at d/c from ED?: No Referrals: [facility],Clinic [Primary Care Provider] - 1-2 days Decision Time: 19:04
[2020-07-07 17:51] LABS: Basophils % (A) 0 %; Eosinophils # (A) 0.3 k/uL (0-0.7); Eosinophils % (A) 3 %; HCT 34.6 % (39.0-53.0); Lymphocytes # (A) 1.7 k/uL (1.0-4.8); Lymphocytes % (A) 17 %; MCH 29.1 pg (25.0-35.0); MCHC 31.8 g/dL (31.0-37.0); MCV 91.6 fL (80.0-100.0); Mean Platelet Volume 6.7; Monocytes # (A) 0.4 k/uL (0-1.0); Monocytes % (A) 4 %; Neutrophils # (A) 7.3 k/uL (1.3-7.7); Neutrophils % (A) 75 %; Platelet Count 374 k/uL (150-450); RBC 3.78 m/uL (4.30-5.90); RDW 15.2 % (11.5-15.5); WBC 9.8 k/uL (3.8-10.6)
[2020-07-07 18:07] LABS: Partial Thromboplastin Time 25.8 sec (22.0-30.0)
[2020-07-07 18:11] LABS: Albumin 3.9 g/dL (3.5-5.0); Calcium 8.7 mg/dL (8.4-10.2); Potassium 4.6 mmol/L (3.5-5.1); Total Bilirubin 0.4 mg/dL (0.2-1.3); Total Protein 6.6 g/dL (6.3-8.2)
--- NOTE | 2020-07-07 18:24 | XR ---
EXAMINATION TYPE: XR chest 2V DATE OF EXAM: 07/07/2020 COMPARISON: 06/12/2020 HISTORY: Short of breath TECHNIQUE: FINDINGS: There is extensive coarse interstitial edema. Heart size is fairly normal. There is slight blunting of the costophrenic angles. IMPRESSION: Moderately severe pulmonary interstitial edema is a change compared to old exam. I would consider acute heart failure or RDS.
[2020-07-07] MEDS ORDERED: ALPRAZolam 0.25 MG TAB PO PRN (18:25)
[2020-07-07] MEDS: NICOTINE 14MG/24HR PATCH TRANSDERM SCH (18:47)
[2020-07-07] MEDS: methylPREDNISolone SOD SUCCI 125 MG/2 ML VIAL IV SCH ×2 (18:49→23:05)
[2020-07-07] MEDS ORDERED: NITROGLYCERIN OINT 1 INCH/GM PACKET TOPICAL STA (18:51)
[2020-07-07] MEDS ORDERED: FUROSEMIDE 10 MG/ML 4 ML VIAL IV STA (18:51)
[2020-07-07] MEDS ORDERED: ASPIRIN 325 MG TAB PO STA (19:04)
--- NOTE | 2020-07-07 20:05 | CT ---
EXAMINATION TYPE: CT chest wo con DATE OF EXAM: 07/07/2020 COMPARISON: 07/16/2012 HISTORY: SOB, flash pulmonary edema CT DLP: 303.3 mGycm Automated exposure control for dose reduction was used. There are bilateral pleural effusions. There is interstitial infiltrates and atelectasis in both lowe r lobes. Heart size is normal. There is no pericardial effusion. There are multiple mediastinal lymph nodes that measure up to 1.5 cm. There are no definite hilar masses. There is coarse groundglass int erstitial infiltrates in the upper lung knowles. There is mild pulmonary emphysema. The bony thorax is intact. The upper abdominal soft tissues appear intact. IMPRESSION: Emphysema. Extensive interstitial pulmonary fibrotic changes. Acute interstitial pneumonia is possibl e. There is progression of the lung disease compared to old exam. There are enlarged mediastinal lymp h nodes slightly increased compared to old exam.
--- NOTE | 2020-07-07 20:08 | HP ---
HISTORY AND PHYSICAL DATE OF SERVICE: 07/07/2020 CHIEF COMPLAINT: Shortness of breath. HISTORY OF PRESENT ILLNESS: This 70-year-old gentleman with a past medical history of multiple medical problems, including COPD, GERD, hypertension, hyperlipidemia, being followed by Dr. Ramires in the [facility] in the outpatient setting, was complaining of shortness of breath over the past several days. Patient was smoking previously but the patient cut down his smoking significantly. The patient also has a history of CHF. Currently the patient has some minimal sputum. No history of fever or rigors. No history of headache, loss of consciousness, seizures. Chest x-ray showed increased bronchovascular markings on side, indicating either CHF or interstitial pneumonia. There is no history of any contact with sick individuals, according to the patient's and the patient. The patient was previous admitted with CHF, acute exacerbation. Ejection fraction was found to be 20%. PAST MEDICAL HISTORY: History of COPD, GERD, hypertension, hyperlipidemia, history of prostate disorder, history of cancerous polyp. HOME MEDICATIONS: Home medications, which are not confirmed yet: MiraLAX, Zestril, Atarax, Klonopin, Flomax, Aldactone, Zocor, multivitamins, Remeron, Lopressor, melatonin, Lasix, Pepcid, Colace, vitamin D3, Symbicort, aspirin, Elavil, Ventolin HFA. ALLERGIES: LISINOPRIL and MORPHINE. FAMILY HISTORY: History of breast cancer in the family. SOCIAL HISTORY: History of smoking, as mentioned. REVIEW OF SYSTEMS: ENT: Diminished hearing. Diminished vision. CARDIOVASCULAR SYSTEM: As mentioned earlier. RESPIRATORY SYSTEM: As mentioned earlier. GI: No nausea, vomiting. : No dysuria or retention. NERVOUS SYSTEM: No numbness, weakness. ALLERGY/IMMUNOLOGY: No asthma, hayfever. MUSCULOSKELETAL: As mentioned earlier. HEMATOLOGY/ONCOLOGY: No history of anemia. ENDOCRINE: No history of diabetes, hypothyroidism. CONSTITUTIONAL: As mentioned earlier. DERMATOLOGY: Negative. RHEUMATOLOGY: Negative. PSYCHIATRY: As mentioned earlier. PHYSICAL EXAMINATION: Patient alert and oriented x3. Pulse 115, blood pressure 175/116, respiration 26, temperature normal. Pulse ox 100% on BiPAP. HEENT: Conjunctivae normal. Oral mucosa moist. NECK: No jugular venous distention. No carotid bruit. No lymph node enlargement. CARDIOVASCULAR SYSTEM: S1, S2 muffled. No S3. No S4. RESPIRATORY SYSTEM: Breath sounds diminished at the bases. A few scattered rhonchi and crackles. CHEST: Bilateral coarse crackles present. ABDOMEN: Soft, non-tender. No mass palpable. LEGS: No edema. No swelling. NERVOUS SYSTEM: Higher functions as mentioned earlier. Moves all 4 limbs. No focal motor or sensory deficit. LYMPHATICS: No lymph node palpable in neck, axillae or groin. SKIN: No ulcer, rash, bleeding. JOINTS: No active deforming arthropathy. LABS: WBC 9.3, hemoglobin 11, sodium 136. CO2 is 18. Creatinine is 2.37. The baseline creatinine is 2.38. ASSESSMENT: 1. Shortness of breath, possibly multifactorial, with COPD, acute exacerbation, as well as congestive heart failure, acute exacerbation. Ejection fraction 20%. 2. Chronic kidney disease, stage 3, possibly cardiorenal syndrome. 3. Rule out interstitial pneumonia and COVID-19. 4. History of chronic obstructive pulmonary disease. 5. History of gastroesophageal reflux disease. 6. Hypertension. 7. Hyperlipidemia. 8. Continued ongoing nicotine dependence. 9. History of prostate disorder. 10.History of hemorrhoids. 11.History of gastrointestinal bleed. 12.Restless legs syndrome. 13.History appendectomy. 14.History of degenerative joint disease. 15.Anxiety, depression. RECOMMENDATIONS AND DISCUSSION: In this 70-year-old gentleman who presented with multiple complex medical issues, we will monitor the patient closely, continue the current medications, continue symptomatic treatment. Otherwise at this time I recommend bronchodilators, empiric antibiotics. COVID-19. Pulmonary consultation. Cardiology consultation. CT scan of the chest. Cautious Lasix. Avoid IV fluids. Obtain cultures. Prognosis guarded because of multiple complex medical issues. Further recommendations to follow. A copy of this dictation is being forwarded to Dr. DONOVAN Malagon and Dr. Ramires, who is the primary physician. MMODL / IJN: [id number] / LOPEZ
[2020-07-07] MEDS: SODIUM CHLORIDE 0.9% 1,000 ML IV SCH (20:11)
[2020-07-07] MEDS: AZITHROMYCIN 500 MG in SODIUM CHLORIDE 0.9% 250 ML IVPB SCH (20:27)
[2020-07-07] MEDS: HEPARIN SODIUM,PORCINE 5,000 UNIT/ML 1 ML VIAL SQ SCH (21:17)
[2020-07-07] MEDS: FORMOTEROL FUMARATE 20 MCG/2 ML NEBU INHALATION SCH (21:21)
[2020-07-07] MEDS: BUDESONIDE 1 MG/2 ML NEBU INHALATION SCH (21:21)
[2020-07-07] MEDS: IPRATROPIUM-ALBUTEROL 3 ML NEB INHALATION SCH (21:21)
[2020-07-07] MEDS ORDERED: ALBUTEROL HFA INHALER INHALATION PRN (22:32)
[2020-07-07] MEDS ORDERED: FAMOTIDINE 20 MG TAB PO PRN (22:32)
[2020-07-07] MEDS ORDERED: DOCUSATE 100 MG CAP PO PRN (22:45)
[2020-07-07] MEDS: METOPROLOL TARTRATE 50 MG TAB PO SCH (23:01)
[2020-07-07] MEDS: hydrALAZINE HCL 10 MG TAB PO SCH (23:02)
[2020-07-07] MEDS: NITROGLYCERIN OINT 1 INCH/GM PACKET TOPICAL SCH (23:04)
[2020-07-07] MEDS: clonazePAM 1 MG TAB PO PRN (23:11)
[2020-07-08] MEDS: hydrALAZINE HCL 25 MG TAB PO PRN ×2 (03:21→11:40)
[2020-07-08] MEDS: methylPREDNISolone SOD SUCCI 125 MG/2 ML VIAL IV SCH ×4 (06:10→23:38)
[2020-07-08] MEDS: PANTOPRAZOLE 40 MG TABLET PO SCH (06:11)
[2020-07-08] MEDS: INSULIN ASPART (NovoLOG) 100 UNIT/ML VIAL SQ SCH ×4 (06:16→20:51)
[2020-07-08 06:17] LABS: Glucose,Whole Blood 146 mg/dL (75-99)
[2020-07-08 07:10] LABS: Basophils % (A) 0 %; Eosinophils % (A) 0 %; HCT 32.4 % (39.0-53.0); HGB 10.1 gm/dL (13.0-17.5); Lymphocytes # (A) 0.7 k/uL (1.0-4.8); Lymphocytes % (A) 17 %; MCH 28.7 pg (25.0-35.0); MCHC 31.2 g/dL (31.0-37.0); MCV 91.8 fL (80.0-100.0); Mean Platelet Volume 6.8; Monocytes # (A) 0.1 k/uL (0-1.0); Monocytes % (A) 1 %; Neutrophils # (A) 3.2 k/uL (1.3-7.7); Neutrophils % (A) 81 %; Platelet Count 319 k/uL (150-450); RBC 3.53 m/uL (4.30-5.90); RDW 15.3 % (11.5-15.5)
[2020-07-08 07:27] LABS: Calcium 8.5 mg/dL (8.4-10.2); Potassium 4.7 mmol/L (3.5-5.1)
[2020-07-08] MEDS: FORMOTEROL FUMARATE 20 MCG/2 ML NEBU INHALATION SCH ×2 (07:53→20:44)
[2020-07-08] MEDS: IPRATROPIUM-ALBUTEROL 3 ML NEB INHALATION SCH ×4 (07:53→20:44)
[2020-07-08] MEDS: BUDESONIDE 1 MG/2 ML NEBU INHALATION SCH ×2 (07:53→20:44)
[2020-07-08] MEDS: SYMBICORT 160-4.5 MCG INHALER INHALATION SCH ×2 (08:05→21:06)
[2020-07-08] MEDS ORDERED: FUROSEMIDE 10 MG/ML 4 ML VIAL IV SCH ×2 (08:30→09:00)
[2020-07-08] MEDS ORDERED: FUROSEMIDE 10 MG/ML 10 ML VIAL IV SCH (08:45)
[2020-07-08] MEDS: HEPARIN SODIUM,PORCINE 5,000 UNIT/ML 1 ML VIAL SQ SCH ×2 (08:56→20:50)
[2020-07-08] MEDS: TAMSULOSIN 0.4 MG CAP.ER.24H PO SCH (08:56)
[2020-07-08] MEDS: FUROSEMIDE 10 MG/ML 10 ML VIAL IV SCH ×2 (08:56→20:50)
[2020-07-08] MEDS: METOPROLOL TARTRATE 50 MG TAB PO SCH ×2 (08:56→20:51)
[2020-07-08] MEDS: hydrALAZINE HCL 10 MG TAB PO SCH (08:56)
[2020-07-08] MEDS: NITROGLYCERIN OINT 1 INCH/GM PACKET TOPICAL SCH ×4 (08:56→20:52)
[2020-07-08] MEDS: NICOTINE 14MG/24HR PATCH TRANSDERM SCH (08:58)
[2020-07-08] MEDS ORDERED: SPIRONOLACTONE 25 MG TAB PO SCH (09:00)
[2020-07-08] MEDS ORDERED: ASPIRIN 325 MG TAB PO SCH (09:00)
--- NOTE | 2020-07-08 10:04 | P.CRDCN ---
History of Present Illness Consult date: 07/08/20 History of present illness: CHIEF COMPLAINT: Shortness of breath HISTORY OF PRESENT ILLNESS: 70-year-old male with a past medical history of COPD, hyperlipidemia, hypertension, chronic kidney disease, and tobacco dependence who presented to the emergency room with a chief complaint of shortness of breath. Patient follows in the office with Dr. Cardoso. Patient was recently hospitalized secondary to CHF. Patient states he woke up yesterday and started having some shortness of breath that continued to get worse throughout the day and he decided to come to the emergency room for further evaluation. Patient is prescribed Lasix and Aldactone on an outpatient basis. He states he was out of one of these medications for approximately one week but is not sure which medication he was out of. Patient states he recently stopped smoking at the beginning of June but has since resumed smoking and is currently smoking 1 cigarette a day. He also gives a history of black mold in his apartment. Patient denies previous history of cardiac catheterization. He states this was discussed at his previous hospitalization but due to his kidney function has not been performed. DIAGNOSTICS: EKG reveals sinus tachycardia Chest xray moderately severe pulmonary interstitial edema Laboratory data: WBC 4.0. Hemoglobin 10.1. Platelet count 319. D-dimer 2.04. Sodium 137. Potassium 4.7. BUN 23. Creatinine 2.54. Troponin 0.012. 0.012. 0.017. BNP 33,200. Current home cardiac medications include Zocor 20 mg daily, hydralazine 10 mg 3 times a day, Aldactone 25 mg daily, Lopressor 100 mg twice a day, Lasix 40 mg twice a day, and aspirin 81 mg daily Echocardiogram completed 06/09/2020 revealed ejection fraction between 20 and 25%, moderate mitral regurgitation and mild tricuspid regurgitation REVIEW OF SYSTEMS: CONSTITUTIONAL: Denies fever or chills. HEENT: Denies blurred vision, vision changes, or eye pain. Denies hemoptysis CARDIOVASCULAR: Denies chest pain, orthopnea, PND or palpitations RESPIRATORY: Reports shortness of breath. GASTROINTESTINAL: Denies abdominal pain. Denies nausea or vomiting. HEMATOLOGIC: Denies bleeding disorders. GENITOURINARY: Denies any blood in urine. SKIN: Denies pruitis. Denies rash. PHYSICAL EXAM: VITAL SIGNS: Reviewed. GENERAL: Well-developed in no acute distress. HEENT: Head is normocephalic. Pupils are equal, round. Sclerae anicteric. Mucous membranes of the mouth are moist. Neck supple. No JVD or thyromegaly LUNGS: Respirations even and unlabored. Lungs with rales to bilateral bases. HEART: Regular rate and rhythm. S1 and S2 heard. ABDOMEN: Soft. Nondistended. Nontender. EXTREMITIES: Normal range of motion. No clubbing or cyanosis. Peripheral pulses intact. No lower extremity edema NEUROLOGIC: Awake and alert. Oriented x 3. ASSESSMENT: 1. Acute exacerbation of systolic congestive heart failure, EF 20-25%, BNP 33,200 2. Hypertension 3. Hyperlipidemia 4. Chronic kidney disease 5. COPD 6. Nicotine dependence PLAN: -Resume home cardiac medications -Discontinue Aldactone secondary to kidney function -Decrease aspirin to 81 mg -Increase Lasix to 80 mg IV every 12 hours -Daily weights -Accurate intake and output -Nephrology on consult. Await evaluation -No need to repeat echocardiogram as this was just performed on 06/09/2020 -Smoking cessation advised -Pulmonary following. Await recommendations -Further recommendations pending patient's course Nurse practitioner note has been reviewed by physician. Signing provider agrees with the documented findings, assessment, and plan of care. Past Medical History Past Medical History: Cancer, COPD, GERD/Reflux, Hyperlipidemia, Hypertension, Prostate Disorder Additional Past Medical History / Comment(s): cancerous polyp,enlarged prostate,HEMORRHOIDS, BLOOD IN STOOL, RESTLESS LEG - intermittent, colon Cancer History of Any Multi-Drug Resistant Organisms: None Reported Past Surgical History: Appendectomy, Orthopedic Surgery Additional Past Surgical History / Comment(s): ACL SX RT KNEE X3, LEFT HEEL FUSION, LEFT ARM BICEP SX, NASAL SX R/T ULCER, colon resection, COLONOSCOPY, Past Anesthesia/Blood Transfusion Reactions: No Reported Reaction Past Psychological History: Anxiety, Depression Smoking Status: Former smoker Past Alcohol Use History: None Reported Additional Past Alcohol Use History / Comment(s): STARTED AGE 19, SMOKES 1PPD Past Drug Use History: None Reported - Past Family History Mother Family Medical History: Cancer Additional Family Medical History / Comment(s): BREAST Sister(s) Family Medical History: Deep Vein Thrombosis (DVT) Father Family Medical History: COPD Additional Family Medical History / Comment(s): FROM CARDIAC ARREST Medications and Allergies Home Medications Medication Instructions Recorded Confirmed Type Amitriptyline HCl [Elavil] 100 mg PO HS 06/04/16 07/07/20 History Cholecalciferol [Vitamin D3 (25 1,000 unit PO DAILY 06/04/16 07/07/20 History Mcg = 1000 Iu)] Mirtazapine [Remeron] 45 mg PO HS 06/04/16 07/07/20 History Simvastatin [Zocor] 20 mg PO HS 06/04/16 07/07/20 History Tamsulosin [Flomax] 0.4 mg PO DAILY 06/04/16 07/07/20 History clonazePAM [KlonoPIN] 1 mg PO BID 06/04/16 07/07/20 History Albuterol Inhaler [Ventolin Hfa 1 puff INHALATION RT-QID PRN 06/08/20 07/07/20 History Inhaler] Budesonide/Formoterol Fumarate 2 puff INHALATION RT-BID 06/08/20 07/07/20 H istory [Symbicort 160-4.5 Mcg Inhaler] Docusate [Colace] 200 mg PO DAILY 06/08/20 07/07/20 History Famotidine [Pepcid] 20 mg PO BID PRN 06/08/20 07/07/20 History Melatonin 3 mg PO HS 06/08/20 07/07/20 History Multivitamins, Thera [Multivitamin 1 tab PO DAILY 06/08/20 07/07/20 History (formulary)] hydrOXYzine HCL [Atarax] 25 mg PO BID PRN 06/08/20 07/07/20 History polyethylene glycoL 3350 [Miralax] 17 gm PO DAILY 06/08/20 07/07/20 History Aspirin 81 mg PO DAILY #30 chew 06/13/20 07/07/20 Rx Furosemide [Lasix] 40 mg PO BID@0900,1600 #30 tab 06/13/20 07/07/20 Rx Metoprolol Tartrate [Lopressor] 100 mg PO BID #60 tab 06/13/20 07/07/20 Rx Spironolactone [Aldactone] 25 mg PO DAILY #30 tab 06/13/20 07/07/20 Rx hydrALAZINE HCL [Apresoline] 10 mg PO TID 07/07/20 07/07/20 History Allergies Allergy/AdvReac Type Severity Reaction Status Date / Time lisinopril Allergy swollen Verified 07/07/20 20:58 testicle,rash morphine AdvReac Nausea & Verified 07/07/20 20:58 Vomiting Physical Exam Vitals: Vital Signs Temp Pulse Pulse Resp BP BP Pulse Ox 07/08/20 08:52 97.7 F 95 20 177/86 97 07/08/20 08:18 88 07/08/20 08:04 96 07/08/20 07:54 92 07/08/20 03:42 77 18 07/08/20 03:15 97.3 F L 77 18 172/96 100 07/07/20 23:25 113 H 22 07/07/20 23:19 98.0 F 113 H 22 189/98 95 07/07/20 21:47 110 H 07/07/20 21:43 98.4 F 120 H 22 186/113 94 L 07/07/20 21:39 107 H 07/07/20 21:25 97.8 F 102 H 21 171/107 98 07/07/20 21:21 107 H 07/07/20 19:15 96 21 172/94 98 07/07/20 19:01 105 H 22 167/101 100 07/07/20 18:26 115 H 26 H 175/116 100 07/07/20 17:56 101 H 07/07/20 17:48 104 H 07/07/20 17:30 94 L 07/07/20 16:50 97.8 F 79 16 167/89 93 L Intake and Output 07/07/20 07/08/20 07/08/20 22:59 06:59 14:59 Intake Total 80 Output Total 300 1175 Balance -300 -1095 Intake: Intake, IV Titration 80 Amount Sodium Chloride 0.9% 1, 80 000 ml @ 20 mls/hr IV . Q24H [facility] Rx#:[id number] Output: Urine 300 1175 Other: Voiding Method Urinal Urinal Urinal # Voids 1 1 Weight 63.503 kg 69 kg Results 07/08/20 06:39 07/08/20 06:39 Cardiac Enzymes 07/07/20 07/07/20 07/07/20 Range/Units 17:32 17:32 19:58 AST 31 (17-59) U/L Troponin I <0.012 <0.012 (0.000-0.034) ng/mL 07/07/20 Range/Units 23:16 AST (17-59) U/L Troponin I 0.017 (0.000-0.034) ng/mL Coagulation 07/07/20 Range/Units 17:32 PT 10.0 (9.0-12.0) sec APTT 25.8 (22.0-30.0) sec CBC 07/07/20 07/08/20 Range/Units 17:32 06:39 WBC 9.8 4.0 (3.8-10.6) k/uL RBC 3.78 L 3.53 L (4.30-5.90) m/uL Hgb 11.0 L 10.1 L (13.0-17.5) gm/dL Hct 34.6 L 32.4 L (39.0-53.0) % Plt Count 374 319 (150-450) k/uL Comprehensive Metabolic Panel 07/07/20 07/08/20 Range/Units 17:32 06:39 Sodium 136 L 137 (137-145) mmol/L Potassium 4.6 4.7 (3.5-5.1) mmol/L Chloride 111 H 111 H (98-107) mmol/L Carbon Dioxide 18 L 18 L (22-30) mmol/L BUN 19 23 H (9-20) mg/dL Creatinine 2.37 H 2.54 H (0.66-1.25) mg/dL Glucose 104 H 137 H (74-99) mg/dL Calcium 8.7 8.5 (8.4-10.2) mg/dL AST 31 (17-59) U/L ALT 24 (4-49) U/L Alkaline Phosphatase 71 (38-126) U/L Total Protein 6.6 (6.3-8.2) g/dL Albumin 3.9 (3.5-5.0) g/dL Current Medications Generic Name Dose Route Start Last Admin Trade Name Freq PRN Reason Stop Dose Admin Albuterol Sulfate 1 puff 07/07/20 22:32 Ventolin Hfa Inhaler INHALATION RT-QID PRN Shortness Of Breath Albuterol/Ipratropium 3 ml 07/07/20 20:00 07/08/20 07:53 Duoneb 0.5 Mg-3 Mg/3 Ml Soln INHALATION 3 ml RT-QID [facility] Administration Alprazolam 0.25 mg 07/07/20 18:25 Xanax PO TID PRN Anxiety Amitriptyline HCl 100 mg 07/08/20 21:00 Elavil PO HS [facility] Aspirin 325 mg 07/08/20 09:00 07/08/20 08:56 Aspirin PO 325 mg DAILY [facility] Administration Budesonide 1 mg 07/07/20 20:00 07/08/20 07:53 Pulmicort INHALATION 1 mg RT-BID [facility] Administration Budesonide/Formoterol Fumarate 2 puff 07/08/20 08:00 07/08/20 08:05 Symbicort 160-4.5 Mcg Inhaler INHALATION Not Given RT-BID [facility] Clonazepam 1 mg 07/07/20 22:45 07/07/20 23:11 Klonopin PO 1 mg BID PRN Administration Agitation or Acute Anxiety Docusate Sodium 200 mg 07/07/20 22:45 Colace PO DAILY PRN Constipation Famotidine 20 mg 07/07/20 22:32 Pepcid PO BID PRN Heartburn Formoterol Fumarate 20 mcg 07/07/20 20:00 07/08/20 07:53 Perforomist INHALATION 20 mcg RT-BID [facility] Administration Furosemide 80 mg 07/08/20 09:00 07/08/20 08:56 Lasix IV 80 mg Q12HR [facility] Administration Heparin Sodium (Porcine) 5,000 unit 07/07/20 21:00 07/08/20 08:56 Heparin SQ 5,000 unit Q12HR [facility] Administration Hydralazine HCl 10 mg 07/07/20 22:45 07/08/20 08:56 Apresoline PO 10 mg TID [facility] Administration Hydralazine HCl 25 mg 07/07/20 22:35 07/08/20 03:21 Apresoline PO 25 mg QID PRN Administration Blood Pressure - High Ceftriaxone Sodium 1 gm/ 50 mls @ 100 mls/hr 07/07/20 19:00 07/08/20 08:57 Sodium Chloride IVPB 100 mls/hr Q24HR [facility] Administration Azithromycin 500 mg/ Sodium 250 mls @ 250 mls/hr 07/07/20 21:00 07/07/20 20:27 Chloride IVPB 250 mls/hr HS [facility] Administration Sodium Chloride 1,000 mls @ 20 mls/hr 07/07/20 19:15 07/07/20 20:11 Saline 0.9% IV 20 mls/hr .Q24H [facility] Administration Insulin Aspart 0 unit 07/08/20 07:30 07/08/20 06:16 Novolog SQ 2 unit ACHS [facility] Administration Protocol Melatonin 3 mg 07/08/20 21:00 Melatonin PO HS [facility] Methylprednisolone Sodium Succinate 60 mg 07/07/20 18:30 07/08/20 06:10 Solu-Medrol IV 60 mg Q6HR [facility] Administration Metoprolol Tartrate 100 mg 07/07/20 22:45 07/08/20 08:56 Lopressor PO 100 mg BID [facility] Administration Mirtazapine 45 mg 07/08/20 21:00 Remeron PO HS [facility] Multivitamins 1 each 07/08/20 12:00 Theragran PO DAILY@1200 [facility] Nicotine 1 patch 07/07/20 18:30 07/08/20 08:58 Habitrol 14mg/24hr Patch TRANSDERM 1 patch DAILY [facility] Administration Nitroglycerin 1 inch 07/07/20 22:00 07/08/20 08:56 Nitro-Bid Oint TOPICAL 1 inch QID [facility] Administration Pantoprazole Sodium 40 mg 07/08/20 07:30 07/08/20 06:11 Protonix PO 40 mg AC-[id number] [facility] Administration Tamsulosin HCl 0.4 mg 07/08/20 09:00 07/08/20 08:56 Flomax PO 0.4 mg DAILY [facility] Administration Intake and Output 07/07/20 07/08/20 07/08/20 22:59 06:59 14:59 Intake Total 80 Output Total 300 1175 Balance -300 -1095 Intake: Intake, IV Titration 80 Amount Sodium Chloride 0.9% 1, 80 000 ml @ 20 mls/hr IV . Q24H [facility] Rx#:[id number] Output: Urine 300 1175 Other: Voiding Method Urinal Urinal Urinal # Voids 1 1 Weight 63.503 kg 69 kg 07/08/20 06:39 07/08/20 06:39
[2020-07-08 11:28] LABS: Glucose,Whole Blood 167 mg/dL (75-99)
[2020-07-08] MEDS: MULTIVITAMINS, THERA 1 EACH TAB PO SCH (11:33)
--- NOTE | 2020-07-08 12:43 | P.NPCON ---
History of Present Illness - Reason for Consult chronic renal failure - History of Present Illness Reason for consultation: Chronic kidney disease History of present illness: Patient is a 70-year-old male seen in consultation for chronic kidney disease. Patient has chronic kidney disease stage IIIB with baseline creatinine near 2.3- 2.5 from previous admission earlier this month. Creatinine today is stable at 2.54. He presented to the hospital with shortness of breath. Patient states his blood pressure has been quite elevated averaging 170 systolic at home. He states that lisinopril recently discontinued due to an ALLERGIC reaction but it wasn't replaced with a different medication. Patient's blood pressure this admission has been elevated the systolic blood pressure in the range of 170s to 180s and diastolic 80s to the 100s. He is maintained on IV Lasix 80 mg twice daily. Admits to good urine output. No hematuria or dysuria. Patient does have history of heavy tobacco abuse but states he quit about a month ago. He denies regular use of nonsteroidals. No history of diabetes. Denies family history of renal disease. No fever or chills. No cough. No syncopal episodes. Vital signs are stable. General: The patient appeared well nourished and normally developed. HEENT: Head exam is unremarkable. Neck is without jugular venous distension. LUNGS: Breath sounds decreased. HEART: Rate and Rhythm are regular. ABDOMEN: Soft, nontender. EXTREMITITES: No clubbing, cyanosis, or edema. Past Medical History Past Medical History: Cancer, COPD, GERD/Reflux, Hyperlipidemia, Hypertension, Prostate Disorder Additional Past Medical History / Comment(s): cancerous polyp,enlarged prostate,HEMORRHOIDS, BLOOD IN STOOL, RESTLESS LEG - intermittent, colon Cancer History of Any Multi-Drug Resistant Organisms: None Reported Past Surgical History: Appendectomy, Orthopedic Surgery Additional Past Surgical History / Comment(s): ACL SX RT KNEE X3, LEFT HEEL FUSION, LEFT ARM BICEP SX, NASAL SX R/T ULCER, colon resection, COLONOSCOPY, Past Anesthesia/Blood Transfusion Reactions: No Reported Reaction Past Psychological History: Anxiety, Depression Smoking Status: Former smoker Past Alcohol Use History: None Reported Additional Past Alcohol Use History / Comment(s): STARTED AGE 19, SMOKES 1PPD Past Drug Use History: None Reported - Past Family History Mother Family Medical History: Cancer Additional Family Medical History / Comment(s): BREAST Sister(s) Family Medical History: Deep Vein Thrombosis (DVT) Father Family Medical History: COPD Additional Family Medical History / Comment(s): FROM CARDIAC ARREST Medications and Allergies Home Medications Medication Instructions Recorded Confirmed Type Amitriptyline HCl [Elavil] 100 mg PO HS 06/04/16 07/07/20 History Cholecalciferol [Vitamin D3 (25 1,000 unit PO DAILY 06/04/16 07/07/20 History Mcg = 1000 Iu)] Mirtazapine [Remeron] 45 mg PO HS 06/04/16 07/07/20 History Simvastatin [Zocor] 20 mg PO HS 06/04/16 07/07/20 History Tamsulosin [Flomax] 0.4 mg PO DAILY 06/04/16 07/07/20 History clonazePAM [KlonoPIN] 1 mg PO BID 06/04/16 07/07/20 History Albuterol Inhaler [Ventolin Hfa 1 puff INHALATION RT-QID PRN 06/08/20 07/07/20 History Inhaler] Budesonide/Formoterol Fumarate 2 puff INHALATION RT-BID 06/08/20 07/07/20 History [Symbicort 160-4.5 Mcg Inhaler] Docusate [Colace] 200 mg PO DAILY 06/08/20 07/07/20 History Famotidine [Pepcid] 20 mg PO BID PRN 06/08/20 07/07/20 History Melatonin 3 mg PO HS 06/08/20 07/07/20 History Multivitamins, Thera [Multivitamin 1 tab PO DAILY 06/08/20 07/07/20 History (formulary)] hydrOXYzine HCL [Atarax] 25 mg PO BID PRN 06/08/20 07/07/20 History polyethylene glycoL 3350 [Miralax] 17 gm PO DAILY 06/08/20 07/07/20 History Aspirin 81 mg PO DAILY #30 chew 06/13/20 07/07/20 Rx Furosemide [Lasix] 40 mg PO BID@0900,1600 #30 tab 06/13/20 07/07/20 Rx Metoprolol Tartrate [Lopressor] 100 mg PO BID #60 tab 06/13/20 07/07/20 Rx Spironolactone [Aldactone] 25 mg PO DAILY #30 tab 06/13/20 07/07/20 Rx hydrALAZINE HCL [Apresoline] 10 mg PO TID 07/07/20 07/07/20 History Allergies Allergy/AdvReac Type Severity Reaction Status Date / Time lisinopril Allergy swollen Verified 07/07/20 20:58 testicle,rash morphine AdvReac Nausea & Verified 07/07/20 20:58 Vomiting Physical Exam Vitals: Vital Signs Temp Pulse Pulse Resp BP BP Pulse Ox 07/08/20 12:05 92 07/08/20 11:57 98.2 F 84 16 174/88 96 07/08/20 11:50 92 07/08/20 08:52 97.7 F 95 20 177/86 97 07/08/20 08:18 88 07/08/20 08:04 96 07/08/20 07:54 92 07/08/20 03:42 77 18 07/08/20 03:15 97.3 F L 77 18 172/96 100 07/07/20 23:25 113 H 22 07/07/20 23:19 98.0 F 113 H 22 189/98 95 07/07/20 21:47 110 H 07/07/20 21:43 98.4 F 120 H 22 186/113 94 L 07/07/20 21:39 107 H 07/07/20 21:25 97.8 F 102 H 21 171/107 98 07/07/20 21:21 107 H 07/07/20 19:15 96 21 172/94 98 07/07/20 19:01 105 H 22 167/101 100 07/07/20 18:26 115 H 26 H 175/116 100 07/07/20 17:56 101 H 07/07/20 17:48 104 H 07/07/20 17:30 94 L 07/07/20 16:50 97.8 F 79 16 167/89 93 L Intake and Output 07/07/20 07/08/20 07/08/20 22:59 06:59 14:59 Intake Total 80 240 Output Total 300 1175 Balance -300 -1095 240 Intake: Intake, IV Titration 80 Amount Sodium Chloride 0.9% 1, 80 000 ml @ 20 mls/hr IV . Q24H [facility] Rx#:[id number] Oral 240 Output: Urine 300 1175 Other: Voiding Method Urinal Urinal Urinal # Voids 1 1 Weight 63.503 kg 69 kg 69 kg Results - Lab Results Most recent lab results Calcium 8.5 mg/dL (8.4-10.2) 07/08/20 06:39 07/08/20 06:39 07/08/20 06:39 Assessment and Plan Plan: Assessment: 1. Chronic kidney disease stage IV with baseline creatinine in the range of 2.3-2.5. 2. Metabolic acidosis secondary to chronic kidney disease. 3. Dyspnea secondary to COPD exacerbation and CHF exacerbation. 4. Hypertension with chronic kidney disease. 5. Volume overload. 6. Acute on chronic systolic CHF with ejection fraction of 20-25%. Plan: Maintain IV Lasix 80 mg twice daily. Check urinalysis. Add oral sodium bicarbonate. Increase hydralazine to 50 mg 3 times daily. Add amlodipine 5 mg once daily. Patient is ALLERGIC to lisinopril. Avoid nephrotoxins. Continue to monitor renal function and urine output. Thank you for the consultation. I will continue to follow the patient with you during his hospital stay.
--- NOTE | 2020-07-08 12:53 | P.CNPUL ---
History of Present Illness Consult date: 07/08/20 Requesting physician: Amaury Padilla Reason for consult: dyspnea Chief complaint: Dyspnea History of present illness: 70-year-old white male patient who follows with the [facility] in [place], with past history significant for COPD, chronic CHF with recent echocardiogram showing EF of 20-25%, hypertension, hyperlipidemia, chronic smoker, anxiety, depression, history of cancerous polyp, prostate disorder, was recently hospitalized from 06/08/2020 through 06/13/2020 4 acute exacerbation of systolic CHF, acute kidney injury. Patient's breathing had improved, patient's renal function improved, and patient was supposed to follow up with cardiology in regards to AICD/pacemaker/LifeVest in regards to his severe cardiomyopathy. On 07/07/2020 patient presented to the emergency department with complaints of difficulty breathing, with onset of symptoms earlier in the morning. Patient had stopped smoking after his last hospitalization. He had been experiencing increased exertional dyspnea, as well as orthopnea, denied any leg pain or leg swelling, denied any chest pain. Denied any fever or chills. His chest x-ray showed moderately severe pulmonary interstitial edema, proBNP was significantly elevated at 33,200. EKG showed sinus tachycardia with a rate of [address] and T-wave abnormality. No leukocytosis, white count was 9.8, hemoglobin is 11, d-dimer was 2.04, sodium is 136, potassium is 4.6, chloride was 111, CO2 is 18, BUN is 19, creatinine is 2.37, LFTs are within normal limits, troponins were less than 0.012, and 0.017. Patient was placed on a BiPAP support overnight to assess his breathing, he is currently on nasal cannula, he is breathing easier, but still very dyspneic with any exertion, and conversation, lung sounds reveal scattered crackles at bilateral bases, he was given a dose of IV Lasix in the emergency room, he was started on maintenance do se of Lasix at 80 mg every 12 hours, he is on nebulized bronchodilators, and empiric antibiotics in the form of azithromycin and Rocephin. He is in -1.4 L fluid balance over the last 24 hours, he is breathing easier. CT chest was without contrast was obtained, showing extensive interstitial prominence, acute interstitial pneumonia possibility, enlarged mediastinal lymph nodes slightly increased compared to old exam. Review of Systems All systems: negative Constitutional: Denies chills, Denies fever Eyes: denies blurred vision, denies pain Ears, nose, mouth and throat: Denies headache, Denies sore throat Cardiovascular: Reports orthopnea, Denies chest pain, Denies shortness of breath Respiratory: Reports dyspnea, Denies cough Gastrointestinal: Denies abdominal pain, Denies diarrhea, Denies nausea, Denies vomiting Musculoskeletal: Denies myalgias Integumentary: Denies pruritus, Denies rash Neurological: Denies numbness, Denies weakness Psychiatric: Denies anxiety, Denies depression Endocrine: Denies fatigue, Denies weight change Past Medical History Past Medical History: Cancer, COPD, GERD/Reflux, Hyperlipidemia, Hypertension, Prostate Disorder Additional Past Medical History / Comment(s): cancerous polyp,enlarged prostate,HEMORRHOIDS, BLOOD IN STOOL, RESTLESS LEG - intermittent, colon Cancer History of Any Multi-Drug Resistant Organisms: None Reported Past Surgical History: Appendectomy, Orthopedic Surgery Additional Past Surgical History / Comment(s): ACL SX RT KNEE X3, LEFT HEEL FUSION, LEFT ARM BICEP SX, NASAL SX R/T ULCER, colon resection, COLONOSCOPY, Past Anesthesia/Blood Transfusion Reactions: No Reported Reaction Past Psychological History: Anxiety, Depression Smoking Status: Former smoker Past Alcohol Use History: None Reported Additional Past Alcohol Use History / Comment(s): STARTED AGE 19, SMOKES 1PPD Past Drug Use History: None Reported - Past Family History Mother Family Medical History: Cancer Additional Family Medical History / Comment(s): BREAST Sister(s) Family Medical History: Deep Vein Thrombosis (DVT) Father Family Medical History: COPD Additional Family Medical History / Comment(s): FROM CARDIAC ARREST Medications and Allergies Home Medications Medication Instructions Recorded Confirmed Type Amitriptyline HCl [Elavil] 100 mg PO HS 06/04/16 07/07/20 History Cholecalciferol [Vitamin D3 (25 1,000 unit PO DAILY 06/04/16 07/07/20 History Mcg = 1000 Iu)] Mirtazapine [Remeron] 45 mg PO HS 06/04/16 07/07/20 History Simvastatin [Zocor] 20 mg PO HS 06/04/16 07/07/20 History Tamsulosin [Flomax] 0.4 mg PO DAILY 06/04/16 07/07/20 History clonazePAM [KlonoPIN] 1 mg PO BID 06/04/16 07/07/20 History Albuterol Inhaler [Ventolin Hfa 1 puff INHALATION RT-QID PRN 06/08/20 07/07/20 History Inhaler] Budesonide/Formoterol Fumarate 2 puff INHALATION RT-BID 06/08/20 07/07/20 History [Symbicort 160-4.5 Mcg Inhaler] Docusate [Colace] 200 mg PO DAILY 06/08/20 07/07/20 History Famotidine [Pepcid] 20 mg PO BID PRN 06/08/20 07/07/20 History Melatonin 3 mg PO HS 06/08/20 07/07/20 History Multivitamins, Thera [Multivitamin 1 tab PO DAILY 06/08/20 07/07/20 History (formulary)] hydrOXYzine HCL [Atarax] 25 mg PO BID PRN 06/08/20 07/07/20 History polyethylene glycoL 3350 [Miralax] 17 gm PO DAILY 06/08/20 07/07/20 History Aspirin 81 mg PO DAILY #30 chew 06/13/20 07/07/20 Rx Furosemide [Lasix] 40 mg PO BID@0900,1600 #30 tab 06/13/20 07/07/20 Rx Metoprolol Tartrate [Lopressor] 100 mg PO BID #60 tab 06/13/20 07/07/20 Rx Spironolactone [Aldactone] 25 mg PO DAILY #30 tab 06/13/20 07/07/20 Rx hydrALAZINE HCL [Apresoline] 10 mg PO TID 07/07/20 07/07/20 History Allergies Allergy/AdvReac Type Severity Reaction Status Date / Time lisinopril Allergy swollen Verified 07/07/20 20:58 testicle,rash morphine AdvReac Nausea & Verified 07/07/20 20:58 Vomiting Physical Exam Vitals: Vital Signs Temp Pulse Pulse Resp BP BP Pulse Ox 07/08/20 12:05 92 07/08/20 11:57 98.2 F 84 16 174/88 96 07/08/20 11:50 92 07/08/20 08:52 97.7 F 95 20 177/86 97 07/08/20 08:18 88 07/08/20 08:04 96 07/08/20 07:54 92 07/08/20 03:42 77 18 07/08/20 03:15 97.3 F L 77 18 172/96 100 07/07/20 23:25 113 H 22 07/07/20 23:19 98.0 F 113 H 22 189/98 95 07/07/20 21:47 110 H 07/07/20 21:43 98.4 F 120 H 22 186/113 94 L 07/07/20 21:39 107 H 07/07/20 21:25 97.8 F 102 H 21 171/107 98 07/07/20 21:21 107 H 07/07/20 19:15 96 21 172/94 98 07/07/20 19:01 105 H 22 167/101 100 07/07/20 18:26 115 H 26 H 175/116 100 07/07/20 17:56 101 H 07/07/20 17:48 104 H 07/07/20 17:30 94 L 07/07/20 16:50 97.8 F 79 16 167/89 93 L Intake and Output 07/07/20 07/08/20 07/08/20 22:59 06:59 14:59 Intake Total 80 240 Output Total 300 1175 Balance -300 -1095 240 Intake: Intake, IV Titration 80 Amount Sodium Chloride 0.9% 1, 80 000 ml @ 20 mls/hr IV . Q24H [facility] Rx#:[id number] Oral 240 Output: Urine 300 1175 Other: Voiding Method Urinal Urinal Urinal # Voids 1 1 Weight 63.503 kg 69 kg 69 kg GENERAL EXAM: Alert, very pleasant, 70-year-old white male, currently on 4 L of oxygen, the pulse ox of 97%, dyspneic with conversation, although dyspnea has improved, and patient was previously on BiPAP support overnight, and has been transitioned to nasal cannula HEAD: Normocephalic/atraumatic. EYES: Normal reaction of pupils, equal size. Conjunctiva pink, sclera white. NOSE: Clear with pink turbinates. THROAT: No erythema or exudates. NECK: No masses, no JVD, no thyroid enlargement, no adenopathy. CHEST: No chest wall deformity. Symmetrical expansion. LUNGS: Equal air entry with extensive crackles bilaterally CVS: Regular rate and rhythm, normal S1 and S2, no gallops, no murmurs, no rubs ABDOMEN: Soft, nontender. No hepatosplenomegaly, normal bowel sounds, no guarding or rigidity. EXTREMITIES: No clubbing, no edema, no cyanosis, 2+ pulses and upper and lower extremities. MUSCULOSKELETAL: Muscle strength and tone normal. SPINE: No scoliosis or deformity SKIN: No rashes CENTRAL NERVOUS SYSTEM: Alert and oriented -3. No focal deficits, tone is normal in all 4 extremities. PSYCHIATRIC: Alert and oriented -3. Appropriate affect. Intact judgment and insight. Results - Laboratory Findings CBC and BMP: 07/08/20 06:39 07/08/20 06:39 PT/INR, D-dimer PT 10.0 sec (9.0-12.0) 07/07/20 17:32 INR 1.0 (<1.2) 07/07/20 17:32 D-Dimer 2.04 mg/L FEU (<0.60) H 07/07/20 18:30 Abnormal lab findings: Abnormal Labs 07/07/20 07/07/20 07/07/20 17:32 17:32 18:30 RBC 3.78 L Hgb 11.0 L Hct 34.6 L Lymphocytes # ESR 44 H D-Dimer Sodium 136 L Chloride 111 H Carbon Dioxide 18 L BUN Creatinine 2.37 H Glucose 104 H POC Glucose (mg/dL) 07/07/20 07/08/20 07/08/20 18:30 06:15 06:39 RBC 3.53 L Hgb 10.1 L Hct 32.4 L Lymphocytes # 0.7 L ESR D-Dimer 2.04 H Sodium Chloride Carbon Dioxide BUN Creatinine Glucose POC Glucose (mg/dL) 146 H 07/08/20 07/08/20 06:39 11:27 RBC Hgb Hct Lymphocytes # ESR D-Dimer Sodium Chloride 111 H Carbon Dioxide 18 L BUN 23 H Creatinine 2.54 H Glucose 137 H POC Glucose (mg/dL) 167 H - Diagnostic Findings Chest x-ray: report reviewed, image reviewed CT scan - chest: report reviewed, image reviewed Assessment and Plan Plan: Assessment: #1. Acute hypoxic rest or a failure related to acute exacerbation of systolic CHF, rule out possibility of interstitial pneumonia, requiring BiPAP support, currently switched over to nasal cannula at 4 L #2. Recent hospitalization for acute exacerbation of systolic CHF, from 06/08/2020 through 06/13/2020 #3. Chronic obstructive pulmonary disease #4. Nicotine dependence, recently quit smoking, carries over [id number] smoking history #5. Severe cardiomyopathy, with the EF of 20-25% #6. GERD/reflux #7. Chronic kidney disease, stage III or IV possibly related to cardiorenal syndrome #8. History of prostate disorder #9. Previous history of GI bleeding #10. Anxiety/depression #11. Hypertension #12. Hyperlipidemia #13. Elevated d-dimer, nonspecific, pulmonary embolism is doubtful Plan: Continue with Lasix, breathing is improving, patient has been transitioned from BiPAP support to nasal cannula, continue weaning FiO2, CT chest and chest x-ray have been reviewed, and findings are more consistent with acute exacerbation of CHF and interstitial edema rather than pneumonia, and less likely COVID 19, nevertheless results of COVID 19 was sent in view of abnormal CXR. Continue empiric antibiotic coverage, diuretics, BiPAP support as needed. Cardiology is following, will defer to cardiology in terms of diuretic management and possibility of heart catheterization and/or possibility of AICD placement for history of severe cardiomyopathy. D-dimer has been noted, pulmonary embolism is doubtful, we'll obtain lower extremity Dopplers. Continue with lactulose of subcutaneous heparin, continue bronchodilators I performed a history & physical examination of the patient and discussed their management with my nurse practitioner, Beatrice Child. I reviewed the nurse practitioner's note and agree with the documented findings and plan of care. Lung sounds are positive for crackles. The findings and the impression was discussed with the patient. I attest to the documentation by the nurse practitioner. Time with Patient: Greater than 30
[2020-07-08] MEDS: amLODIPine 5 MG TAB PO SCH (13:01)
[2020-07-08] MEDS: SODIUM BICARBONATE TAB 650 MG TAB PO SCH ×2 (13:01→20:51)
[2020-07-08] MEDS ORDERED: FAMOTIDINE 20 MG TAB PO PRN (13:07)
--- NOTE | 2020-07-08 13:53 | US ---
EXAMINATION TYPE: US venous doppler duplex LE BI DATE OF EXAM: 07/08/2020 1:34 PM COMPARISON: Ultrasound DVT bilateral June 09, 2020 CLINICAL HISTORY: elevated d-dimer. no swelling in legs, only elevated labs SIDE PERFORMED: Bilateral TECHNIQUE: The lower extremity deep venous system is examined utilizing real time linear array sonog patty with graded compression, doppler sonography and color-flow sonography. VESSELS IMAGED: External Iliac Vein (EIV) Common Femoral Vein Deep Femoral Vein Greater Saphenous Vein * Femoral Vein Popliteal Vein Small Saphenous Vein * Proximal Calf Veins (* superficial vessels) Right Leg: Negative for DVT Left Leg: Negative for DVT Grayscale, color doppler, spectral doppler imaging performed of the deep veins of the bilateral lower extremities. There is normal flow, compressibility, vascular waveforms. IMPRESSION: No ultrasound evidence for acute DVT in either lower extremity. No significant change fr om recent ultrasound.
--- NOTE | 2020-07-08 14:44 | PN ---
PROGRESS NOTE DATE OF SERVICE: 07/08/2020 This is a 70-year-old gentleman with shortness of breath, possibly multifactorial, is being closely monitored at this time. Multiple consultants including Pulmonary, Cardiology, Nephrology following the patient closely. The CT scan showed possible interstitial fibrosis and interstitial pneumonia cannot be completely ruled out. The white count is normal. Creatinine is 2.54. The patient is started on IV diuretics. PAST MEDICAL HISTORY: Reviewed. REVIEW OF SYSTEMS: CARDIOVASCULAR SYSTEM: No angina or palpitations. RESPIRATORY: As mentioned earlier. GI: As mentioned earlier. : As mentioned earlier. NERVOUS SYSTEM: No numbness or weakness. NT proBNP is 3200. CURRENT MEDICATIONS: Reviewed and include: 1. Ventolin HFA 1 puff p.r.n. 2. DuoNeb q.i.d. and p.r.n. 3. Xanax. 4. Elavil. 5. Norvasc. 6. Aspirin. 7. Zithromax. 8. Pulmicort. 9. Symbicort. 10.Rocephin. 11.Colace. 12.Pepcid. 13.Perforomist. 14.Lasix. 15.Heparin. 16.Apresoline. 17.NovoLog. 18.Melatonin. 19.Solu-Medrol. 20.Lopressor. 21.Remeron. 22.Habitrol 14. 23.Protonix. 24.Flomax. Doses are reviewed. PHYSICAL EXAM: Patient is alert and oriented x3. Pulse 84, blood pressure 172/88, respirations 16, temperature 98.2, pulse ox 96% on room air. HEENT: Conjunctivae normal. NECK: Normal. CARDIOVASCULAR SYSTEM: S1, S2, muffled. RESPIRATION: Breath sounds diminished at the bases, a few scattered rhonchi, no crackles. ABDOMEN: Soft. NERVOUS SYSTEM: No focal deficits. LABS: At this time shows WBC 4, hemoglobin is 10.1, creatinine is 2.54. ASSESSMENT: 1. Shortness of breath, possibly congestive heart failure acute exacerbation with disease with acute on chronic systolic dysfunction, ejection fraction 20%. 2. Rule out interstitial pneumonia and pulmonary fibrosis. 3. Possibly COPD acute exacerbation. 4. Chronic kidney disease stage 3 with possibly cardiorenal syndrome. 5. Acute renal failure possibly multifactorial, acute tubular necrosis. 6. History of chronic obstructive pulmonary disease. 7. Gastroesophageal reflux disease. 8. Hypertension. 9. Hyperlipidemia. 10.Continued ongoing nicotine dependence. 11.History of prostate disorder. 12.History of hemorrhoids. 13.History of GI bleed. 14.Restless legs syndrome. 15.History of appendectomy. 16.History of degenerative joint disease. 17.Anxiety, depression. RECOMMENDATION: Continue current monitoring, treatment otherwise continue the continue with the current medications. The patient is started on broad spectrum IV antibiotics bronchodilators. Lasix dose increased to 80 IV b.i.d. Will continue to monitor fluid/electrolyte balance closely. COVID-19 is pending at this time. Prognosis guarded. Further recommendations to follow. MMODL / IJN: [id number] /
[2020-07-08] MEDS: hydrALAZINE HCL 50 MG TAB PO SCH ×2 (16:55→20:59)
[2020-07-08 17:03] LABS: Glucose,Whole Blood 179 mg/dL (75-99)
[2020-07-08 17:32] LABS: Appearance,Urine Clear (Clear); Bilirubin,Urine Negative (Negative); Blood,Urine Trace (Negative); Color,Urine Light Yellow; Glucose,Urine (UA) Negative (Negative); Ketones,Urine Negative (Negative); Leukocyte Esterase,Urine Negative (Negative); Nitrite,Urine Negative (Negative); Protein,Urine Negative (Negative); RBC,Urine 4 /hpf (0-5); Specific Gravity,Urine 1.004 (1.001-1.035); Urobilinogen,Urine <2.0 mg/dL (<2.0); WBC,Urine 1 /hpf (0-5)
[2020-07-08 17:36] LABS: Amphetamine Screen,Urine Not Detected (NotDetected); Barbiturate Screen,Urine Not Detected (NotDetected); Benzodiazepines Screen,Urine Not Detected (NotDetected); Cocaine Screen,Urine Not Detected (NotDetected); Methadone Screen, Urine Not Detected (NotDetected); Opiate Screen,Urine Not Detected (NotDetected); Oxycodone Screen, Urine Not Detected (NotDetected); Phencyclidine Screen,Urine Not Detected (NotDetected); Tricyclic Antidepressant,Urine Detected (NotDetected); Urn Cannabinoid Scrn Detected (NotDetected)
--- NOTE | 2020-07-08 17:47 | ECHOF ---
Referral Reason:Heart Failure MEASUREMENTS -------- HEIGHT: 170.2 cm WEIGHT: 68.9 kg BP: RVIDd: 3.2 cm (< 3.3) IVSd: 1.2 cm (0.6 - 1.1) LVIDd: 5.7 cm (3.9 - 5.3) LVPWd: 1.6 cm (0.6 - 1.1) IVSs: 1.3 cm LVIDs: 4.8 cm LVPWs: 1.9 cm LA Diam: 4.9 cm (2.7 - 3.8) LAESV Index (A-L): 47.42 ml/m Ao Diam: 3.1 cm (2.0 - 3.7) MV EXCURSION: 19.065 mm (> 18.000) MV EF SLOPE: 67 mm/s (70 - 150) MV E Berry: 0.70 m/s MV DecT: 189 ms MV A Berry: 1.02 m/s MV E/A Ratio: 0.69 RAP: 5.00 mmHg RVSP: 11.89 mmHg FINDINGS -------- Sinus rhythm. Echo done 06/09/20 EF 20%. The left ventricle is mildly dilated. Left ventricular wall thickness is normal. There is severe global hypokinesis of LV . Overall left ventricular systolic function is severely impaired with, an EF between 20 - 25 %. The right ventricle is normal in size. The left atrial size is normal. The right atrial size is normal. The aortic valve is trileaflet, and appears structurally normal. No aortic stenosis or regurgitation. [id number] mitral regurgitation is present. Mild tricuspid regurgitation present. Right ventricular systolic pressure is normal at < 35 mmHg. There is no pulmonic regurgitation present. The aortic root size is normal. There is no pericardial effusion. CONCLUSIONS -------- 1. The left ventricle is mildly dilated. 2. Left ventricular wall thickness is normal. 3. There is severe global hypokinesis of LV . 4. Overall left ventricular systolic function is severely impaired with, an EF between 20 - 25 %. 5. The right ventricle is normal in size. 6. The left atrial size is normal. 7. The right atrial size is normal. 8. Hofm-[id number] mitral regurgitation is present. 9. Mild tricuspid regurgitation present. POWER [employer]ALL[employer] MACHINE OPERATOR: Irma Cho RDCS
[2020-07-08 20:40] LABS: Glucose,Whole Blood 158 mg/dL (75-99)
[2020-07-08] MEDS: AZITHROMYCIN 500 MG in SODIUM CHLORIDE 0.9% 250 ML IVPB SCH (20:50)
[2020-07-08] MEDS: AMITRIPTYLINE HCL 50 MG TAB PO SCH (20:50)
[2020-07-08] MEDS: MIRTAZAPINE 45 MG TABLET PO SCH (20:51)
[2020-07-08] MEDS: MELATONIN 3 MG TABLET PO SCH (20:51)
[2020-07-08] MEDS: SODIUM CHLORIDE 0.9% 1,000 ML IV SCH (20:52)
[2020-07-09 06:11] LABS: Glucose,Whole Blood 138 mg/dL (75-99)
[2020-07-09] MEDS: PANTOPRAZOLE 40 MG TABLET PO SCH (06:15)
[2020-07-09] MEDS: INSULIN ASPART (NovoLOG) 100 UNIT/ML VIAL SQ SCH ×4 (06:15→20:20)
[2020-07-09] MEDS: methylPREDNISolone SOD SUCCI 125 MG/2 ML VIAL IV SCH ×2 (06:15→11:25)
[2020-07-09 07:29] LABS: Basophils % (A) 0 %; Eosinophils # (A) 0.1 k/uL (0-0.7); Eosinophils % (A) 1 %; HCT 37.4 % (39.0-53.0); HGB 11.6 gm/dL (13.0-17.5); Hypochromasia Slight; Lymphocytes # (A) 1.4 k/uL (1.0-4.8); Lymphocytes % (A) 8 %; MCH 28.9 pg (25.0-35.0); MCHC 31.1 g/dL (31.0-37.0); MCV 93.1 fL (80.0-100.0); Mean Platelet Volume 6.9; Monocytes # (A) 0.3 k/uL (0-1.0); Monocytes % (A) 2 %; Neutrophils % (A) 89 %; Platelet Count 431 k/uL (150-450); RBC 4.01 m/uL (4.30-5.90); RDW 15.5 % (11.5-15.5); WBC 16.8 k/uL (3.8-10.6)
[2020-07-09 07:37] LABS: Calcium 9.2 mg/dL (8.4-10.2); Potassium 4.4 mmol/L (3.5-5.1)
[2020-07-09] MEDS: METOPROLOL TARTRATE 50 MG TAB PO SCH ×2 (08:30→20:20)
[2020-07-09] MEDS: SODIUM BICARBONATE TAB 650 MG TAB PO SCH ×2 (08:30→20:20)
[2020-07-09] MEDS: ASPIRIN 81 MG PO SCH (08:30)
[2020-07-09] MEDS: hydrALAZINE HCL 50 MG TAB PO SCH ×3 (08:31→20:20)
[2020-07-09] MEDS: TAMSULOSIN 0.4 MG CAP.ER.24H PO SCH (08:31)
[2020-07-09] MEDS: HEPARIN SODIUM,PORCINE 5,000 UNIT/ML 1 ML VIAL SQ SCH ×2 (08:31→20:20)
[2020-07-09] MEDS: amLODIPine 5 MG TAB PO SCH (08:31)
[2020-07-09] MEDS: FUROSEMIDE 10 MG/ML 10 ML VIAL IV SCH (08:31)
[2020-07-09] MEDS: NITROGLYCERIN OINT 1 INCH/GM PACKET TOPICAL SCH ×4 (08:31→21:14)
[2020-07-09] MEDS: NICOTINE 14MG/24HR PATCH TRANSDERM SCH (08:32)
[2020-07-09] MEDS: BUDESONIDE 1 MG/2 ML NEBU INHALATION SCH (08:35)
[2020-07-09] MEDS: FORMOTEROL FUMARATE 20 MCG/2 ML NEBU INHALATION SCH (08:35)
[2020-07-09] MEDS: IPRATROPIUM-ALBUTEROL 3 ML NEB INHALATION SCH ×4 (08:35→19:19)
[2020-07-09] MEDS: SYMBICORT 160-4.5 MCG INHALER INHALATION SCH ×2 (08:36→19:19)
[2020-07-09 10:03] VITALS: BMI 21.2
--- NOTE | 2020-07-09 11:01 | XR ---
EXAMINATION TYPE: XR chest 2V DATE OF EXAM: 07/09/2020 CLINICAL HISTORY: Difficulty breathing. COPD TECHNIQUE: Frontal and lateral views of the chest are obtained. COMPARISON: 07/07/2020 chest radiograph FINDINGS: There is improved aeration of the bilateral lungs. Chronic interstitial coarsening and hyp erinflation redemonstrated. The cardiomediastinal silhouette is within normal limits for size. Pulmon bertha vasculature is normal. There is no pleural effusion, or pneumothorax seen. The osseous structures are intact. IMPRESSION: Significantly improved aeration of the bilateral lungs versus 07/07/2020, with mild persis tent increased interstitial lung markings which may represent pneumonitis versus edema.
--- NOTE | 2020-07-09 11:02 | P.PN ---
Subjective Progress Note Date: 07/09/20 CHIEF COMPLAINT: Shortness of breath HISTORY OF PRESENT ILLNESS: Patient examined this morning at the bedside. He states his breathing has significantly improved. He denies chest pain. He is hoping to be discharged home today. Creatinine increased to 3.15 today from 2.54. Blood pressure 162/75 this morning. Heart rate in the 90s. PHYSICAL EXAM: VITAL SIGNS: Reviewed. GENERAL: Well-developed in no acute distress. HEENT: Head is normocephalic. Pupils are equal, round. Sclerae anicteric. Mucous membranes of the mouth are moist. Neck supple. No JVD or thyromegaly LUNGS: Respirations even and unlabored. Lungs with improved aeration today. Mild wheezing noted. HEART: Regular rate and rhythm. S1 and S2 heard. EXTREMITIES: Normal range of motion. No clubbing or cyanosis. Peripheral pulses intact. No lower extremity edema NEUROLOGIC: Awake and alert. Oriented x 3. ASSESSMENT: 1. Acute exacerbation of systolic congestive heart failure, EF 20-25%, BNP 33,200 2. Hypertension 3. Hyperlipidemia 4. Chronic kidney disease 5. COPD 6. Nicotine dependence 7. Cardiomyopathy, EF 20-25% PLAN: Continue current cardiac medications Discontinue IV Lasix. Begin Lasix 60 mg by mouth twice a day Patient may be discharged home today from a cardiac standpoint Patient to follow-up with Dr. Bello outpatient. Will discuss possible AICD on an outpatient basis secondary to cardiomyopathy Nurse practitioner note has been reviewed by physician. Signing provider agrees with the documented findings, assessment, and plan of care. Objective - Vital Signs Vital signs: Vital Signs Temp 98.5 F 07/09/20 08:28 Pulse 88 07/09/20 09:07 Resp 16 07/09/20 08:28 BP 162/75 07/09/20 08:28 Pulse Ox 96 07/09/20 08:28 Intake & Output 07/08/20 07/09/20 07/09/20 18:59 06:59 18:59 Intake Total 720 710 Output Total 1000 1500 Balance -280 -790 Weight 69 kg 61.6 kg 61.6 kg Intake: Intake, IV Titration 410 Amount Azithromycin 500 mg In 250 Sodium Chloride 0.9% 250 ml @ 250 mls/hr IVPB [facility] Rx#:[id number] Sodium Chloride 0.9% 1, 160 000 ml @ 20 mls/hr IV . Q24H [facility] Rx#:[id number] Oral 720 300 Output: Urine 1000 1500 Other: Voiding Method Urinal Urinal Urinal # Voids 3 1 - Labs CBC & Chem 7: 07/09/20 06:36 07/09/20 06:36 Labs: Abnormal Lab Results - Last 24 Hours (Table) 07/08/20 07/08/20 07/08/20 Range/Units 11:27 17:02 20:39 WBC (3.8-10.6) k/uL RBC (4.30-5.90) m/uL Hgb (13.0-17.5) gm/dL Hct (39.0-53.0) % Neutrophils # (1.3-7.7) k/uL Chloride (98-107) mmol/L Carbon Dioxide (22-30) mmol/L BUN (9-20) mg/dL Creatinine (0.66-1.25) mg/dL Glucose (74-99) mg/dL POC Glucose (mg/dL) 167 H 179 H 158 H (75-99) mg/dL Urine Blood (Negative) U Tricyclic Antidepress (NotDetected) U Marijuana (THC) Screen (NotDetected) 07/08/20 07/09/20 07/09/20 Range/Units Unknown 06:10 06:36 WBC 16.8 H (3.8-10.6) k/uL RBC 4.01 L (4.30-5.90) m/uL Hgb 11.6 L (13.0-17.5) gm/dL Hct 37.4 L (39.0-53.0) % Neutrophils # 15.0 H (1.3-7.7) k/uL Chloride (98-107) mmol/L Carbon Dioxide (22-30) mmol/L BUN (9-20) mg/dL Creatinine (0.66-1.25) mg/dL Glucose (74-99) mg/dL POC Glucose (mg/dL) 138 H (75-99) mg/dL Urine Blood Trace H (Negative) U Tricyclic Antidepress Detected H (NotDetected) U Marijuana (THC) Screen Detected H (NotDetected) 07/09/20 Range/Units 06:36 WBC (3.8-10.6) k/uL RBC (4.30-5.90) m/uL Hgb (13.0-17.5) gm/dL Hct (39.0-53.0) % Neutrophils # (1.3-7.7) k/uL Chloride 109 H (98-107) mmol/L Carbon Dioxide 20 L (22-30) mmol/L BUN 45 H (9-20) mg/dL Creatinine 3.15 H (0.66-1.25) mg/dL Glucose 125 H (74-99) mg/dL POC Glucose (mg/dL) (75-99) mg/dL Urine Blood (Negative) U Tricyclic Antidepress (NotDetected) U Marijuana (THC) Screen (NotDetected) Microbiology - Last 24 Hours (Table) 07/07/20 20:25 Blood Culture - Preliminary Blood No Growth after 24 hours
[2020-07-09] MEDS: MULTIVITAMINS, THERA 1 EACH TAB PO SCH (11:25)
[2020-07-09 12:32] LABS: Glucose,Whole Blood 152 mg/dL (75-99)
--- NOTE | 2020-07-09 12:49 | P.PN ---
Subjective Progress Note Date: 07/09/20 Principal diagnosis: Acute hypoxic respiratory failure related to acute exacerbation of systolic CHF 70-year-old white male patient who follows with the [facility] in [place], with past history significant for COPD, chronic CHF with recent echocardiogram showing EF of 20-25%, hypertension, hyperlipidemia, chronic smoker, anxiety, depression, history of cancerous polyp, prostate disorder, was recently hospitalized from 06/08/2020 through 06/13/2020 4 acute exacerbation of systolic CHF, acute kidney injury. Patient's breathing had improved, patient's renal function improved, an d patient was supposed to follow up with cardiology in regards to AICD/pacemaker/LifeVest in regards to his severe cardiomyopathy. On 07/07/2020 patient presented to the emergency department with complaints of difficulty breathing, with onset of symptoms earlier in the morning. Patient had stopped smoking after his last hospitalization. He had been experiencing increased exertional dyspnea, as well as orthopnea, denied any leg pain or leg swelling, denied any chest pain. Denied any fever or chills. His chest x-ray showed moderately severe pulmonary interstitial edema, proBNP was significantly elevated at 33,200. EKG showed sinus tachycardia with a rate of [address] and T-wave abnormality. No leukocytosis, white count was 9.8, hemoglobin is 11, d-dimer was 2.04, sodium is 136, potassium is 4.6, chloride was 111, CO2 is 18, BUN is 19, creatinine is 2.37, LFTs are within normal limits, troponins were less than 0.012, and 0.017. Patient was placed on a BiPAP support overnight to assess his breathing, he is currently on nasal cannula, he is breathing easier, but still very dyspneic with any exertion, and conversation, lung sounds reveal scattered crackles at bilateral bases, he was given a dose of IV Lasix in the emergency room, he was started on maintenance dose of Lasix at 80 mg every 12 hours, he is on nebulized bronchodilators, and empiric antibiotics in the form of azithromycin and Rocephin. He is in -1.4 L fluid balance over the last 24 hours, he is breathing easier. CT chest was without contrast was obtained, showing extensive interstitial prominence, acute interstitial pneumonia possibility, enlarged mediastinal lymph nodes slightly increased compared to old exam. On 07/09/2020 patient seen in follow-up on selective care unit, his breathing continues to improve, he is down to 2 L of oxygen with pulse ox of 98-99%, will get probably wean him off the oxygen completely today. Not require BiPAP support last night, his been afebrile, hemodynamically has been stable. He has been diuresed, and according to the recorded weight his weight is down by 7.4 kg in the last 24 hours, he is in -1000 mL over last 24 hours for total net fluid balance, and -1.4 L the day before. He has been transitioned to oral Lasix, today's labs have been reviewed, showing worsening renal profile, with B1 up to 45 and creatinine up to 3.15, and patient has been transitioned to oral Lasix by cardiology. There has been increase in patient's white blood cell count, possibly steroid related, his been afebrile since admission. COVID 19 PCR was negative. Today's chest x-ray has been reviewed showing significant improved aeration of bilateral lungs with mild persistent increased interstitial lung markings which may represent fluid. Objective - Vital Signs Vital signs: Vital Signs Temp 98.4 F 07/09/20 11:22 Pulse 84 07/09/20 12:04 Resp 18 07/09/20 11:22 BP 142/66 07/09/20 11:22 Pulse Ox 98 07/09/20 11:22 Intake & Output 07/08/20 07/09/20 07/09/20 18:59 06:59 18:59 Intake Total 720 710 Output Total 1000 1500 Balance -280 -790 Weight 69 kg 61.6 kg 61.6 kg Intake: Intake, IV Titration 410 Amount Azithromycin 500 mg In 250 Sodium Chloride 0.9% 250 ml @ 250 mls/hr IVPB HS [facility] Rx#:[id number] Sodium Chloride 0.9% 1, 160 000 ml @ 20 mls/hr IV . Q24H [facility] Rx#:[id number] Oral 720 300 Output: Urine 1000 1500 Other: Voiding Method Urinal Urinal Urinal # Voids 3 1 - Exam GENERAL EXAM: Alert, very pleasant, 70-year-old white male, currently on 2 L of oxygen, the pulse ox of 98%, did not require BiPAP support last night, breathing is comfortable, no acute distress HEAD: Normocephalic/atraumatic. EYES: Normal reaction of pupils, equal size. Conjunctiva pink, sclera white. NOSE: Clear with pink turbinates. THROAT: No erythema or exudates. NECK: No masses, no JVD, no thyroid enlargement, no adenopathy. CHEST: No chest wall deformity. Symmetrical expansion. LUNGS: Equal air entry with crackles bilaterally at the bases CVS: Regular rate and rhythm, normal S1 and S2, no gallops, no murmurs, no rubs ABDOMEN: Soft, nontender. No hepatosplenomegaly, normal bowel sounds, no guarding or rigidity. EXTREMITIES: No clubbing, no edema, no cyanosis, 2+ pulses and upper and lower extremities. MUSCULOSKELETAL: Muscle strength and tone normal. SPINE: No scoliosis or deformity SKIN: No rashes CENTRAL NERVOUS SYSTEM: Alert and oriented -3. No focal deficits, tone is normal in all 4 extremities. PSYCHIATRIC: Alert and oriented -3. Appropriate affect. Intact judgment and insight. - Labs CBC & Chem 7: 07/09/20 06:36 07/09/20 06:36 Labs: Abnormal Lab Results - Last 24 Hours (Table) 07/08/20 07/08/20 07/08/20 Range/Units 17:02 20:39 Unknown WBC (3.8-10.6) k/uL RBC (4.30-5.90) m/uL Hgb (13.0-17.5) gm/dL Hct (39.0-53.0) % Neutrophils # (1.3-7.7) k/uL Chloride (98-107) mmol/L Carbon Dioxide (22-30) mmol/L BUN (9-20) mg/dL Creatinine (0.66-1.25) mg/dL Glucose (74-99) mg/dL POC Glucose (mg/dL) 179 H 158 H (75-99) mg/dL Urine Blood Trace H (Negative) U Tricyclic Antidepress Detected H (NotDetected) U Marijuana (THC) Screen Detected H (NotDetected) 07/09/20 07/09/20 07/09/20 Range/Units 06:10 06:36 06:36 WBC 16.8 H (3.8-10.6) k/uL RBC 4.01 L (4.30-5.90) m/uL Hgb 11.6 L (13.0-17.5) gm/dL Hct 37.4 L (39.0-53.0) % Neutrophils # 15.0 H (1.3-7.7) k/uL Chloride 109 H (98-107) mmol/L Carbon Dioxide 20 L (22-30) mmol/L BUN 45 H (9-20) mg/dL Creatinine 3.15 H (0.66-1.25) mg/dL Glucose 125 H (74-99) mg/dL POC Glucose (mg/dL) 138 H (75-99) mg/dL Urine Blood (Negative) U Tricyclic Antidepress (NotDetected) U Marijuana (THC) Screen (NotDetected) 07/09/20 Range/Units 12:26 WBC (3.8-10.6) k/uL RBC (4.30-5.90) m/uL Hgb (13.0-17.5) gm/dL Hct (39.0-53.0) % Neutrophils # (1.3-7.7) k/uL Chloride (98-107) mmol/L Carbon Dioxide (22-30) mmol/L BUN (9-20) mg/dL Creatinine (0.66-1.25) mg/dL Glucose (74-99) mg/dL POC Glucose (mg/dL) 152 H (75-99) mg/dL Urine Blood (Negative) U Tricyclic Antidepress (NotDetected) U Marijuana (THC) Screen (NotDetected) Microbiology - Last 24 Hours (Table) 07/07/20 20:25 Blood Culture - Preliminary Blood No Growth after 24 hours Assessment and Plan Plan: Assessment: #1. Acute respiratory failure related to acute exacerbation of systolic CHF, doubt possibility of pneumonia based on significant improvement on the chest x- ray findings and response to diuretics. Hypoxia has improved, patient did require BiPAP support in the initial stages, has not required BiPAP support in last 24 hours, FiO2 is down to 2 L #2. Recent hospitalization for acute exacerbation of systolic CHF, from 06/08/2020 through 06/13/2020 #3. Chronic obstructive pulmonary disease #4. Nicotine dependence, recently quit smoking, carries over [id number] smoking history #5. Severe cardiomyopathy, with the EF of 20-25% #6. GERD/reflux #7. Chronic kidney disease, stage III or IV possibly related to cardiorenal syndrome #8. History of prostate disorder #9. Previous history of GI bleeding #10. Anxiety/depression #11. Hypertension #12. Hyperlipidemia #13. Elevated d-dimer, nonspecific, pulmonary embolism is doubtful #14. Acute kidney injury on top of chronic kidney disease, nephrology is following, this probably related to cardiorenal syndrome and diuretic therapy Plan: Breathing continues to improve, FiO2 is down to 2 L, continue weaning FiO2, today's chest x-ray shows significant improvement in aeration in bilateral lungs and response to diuretics. No fever or chills, and doubt underlying pneumonia. We'll give probably stop the IV steroids or switching to oral prednisone patient is not bronchospastic or congested. Continue Symbicort, we'll discontinue Pulmicort and Perforomist, continue rescue inhaler. We'll continue to follow I performed a history & physical examination of the patient and discussed their management with my nurse practitioner, Beatrice Child. I reviewed the nurse practitioner's note and agree with the documented findings and plan of care. Lung sounds are positive for crackles. The findings and the impression was discussed with the patient. I attest to the documentation by the nurse practitioner. Time with Patient: Less than 30
[2020-07-09] MEDS: FUROSEMIDE 20 MG TAB PO SCH (15:53)
--- NOTE | 2020-07-09 16:20 | PN ---
PROGRESS NOTE Patient is seen for followup for acute kidney injury. He is currently maintained on Lasix, which has been switched to p.o. Patient was admitted to the hospital with shortness of breath and increased lower extremity edema. He has an ejection fraction of 20% to 25%. Serum creatinine was 3.15 today. It was 2.37 on initial admission. Review of previous labs show serum creatinine about 2.6 in the early part of June and about 1.3 to 1.4 in 2015. PHYSICAL EXAMINATION: On examination today patient is comfortable, awake, not in any acute distress. Blood pressure 142/66, heart rate 88 per minute. He is afebrile. EXAMINATION OF THE HEART: S1 and S2. EXAMINATION OF LUNGS: Bilateral breath sounds are heard. ABDOMEN: Soft, non-tender. Examination of lower extremities shows trace edema bilaterally. BIOLOGY SPECIALIST exam is grossly intact. LABS: Labs show sodium of 141, potassium 4.4, chloride 109, BUN 45, serum creatinine 3.1 mg/dL. ASSESSMENT: 1. Acute kidney injury, cardiorenal. Serum creatinine is higher. The Lasix has been switched to p.o. Repeat labs in a.m. No nephrotoxic medications noted and blood pressure is not low. 2. Chronic kidney disease, NKF stage 3B to 4, with baseline creatinine 2.3 to 2.5 mg/dL. Etiology is nephrosclerosis. 3. Metabolic acidosis secondary to chronic kidney disease. 4. Dyspnea secondary to congestive heart failure exacerbation and chronic obstructive pulmonary disease. 5. Cardiomyopathy, ejection fraction 20% to 25%. 6. Congestive heart failure, acute on top of chronic, systolic. PLAN: Continue with oral sodium bicarb. Agree with switching Lasix to p.o. Repeat labs in a.m. Monitor urine output. MMODL / IJN: [id number] /
[2020-07-09 16:48] LABS: Glucose,Whole Blood 178 mg/dL (75-99)
[2020-07-09 20:11] LABS: Glucose,Whole Blood 182 mg/dL (75-99)
[2020-07-09] MEDS: SODIUM CHLORIDE 0.9% 1,000 ML IV SCH (20:19)
[2020-07-09] MEDS: AMITRIPTYLINE HCL 50 MG TAB PO SCH (20:20)
[2020-07-09] MEDS: MELATONIN 3 MG TABLET PO SCH (20:20)
[2020-07-09] MEDS: MIRTAZAPINE 45 MG TABLET PO SCH (20:21)
[2020-07-09] MEDS ORDERED: AZITHROMYCIN 500 MG TAB PO SCH (21:00)
[2020-07-09] MEDS: clonazePAM 1 MG TAB PO PRN (22:59)
[2020-07-10 06:08] LABS: Glucose,Whole Blood 117 mg/dL (75-99)
[2020-07-10] MEDS: INSULIN ASPART (NovoLOG) 100 UNIT/ML VIAL SQ SCH ×2 (06:08→12:09)
[2020-07-10] MEDS: PANTOPRAZOLE 40 MG TABLET PO SCH (06:33)
[2020-07-10 06:51] LABS: Basophils % (A) 0 %; Eosinophils # (A) 0.1 k/uL (0-0.7); Eosinophils % (A) 0 %; HCT 33.7 % (39.0-53.0); HGB 10.7 gm/dL (13.0-17.5); Lymphocytes # (A) 2.4 k/uL (1.0-4.8); Lymphocytes % (A) 13 %; MCH 29.2 pg (25.0-35.0); MCHC 31.8 g/dL (31.0-37.0); MCV 91.6 fL (80.0-100.0); Mean Platelet Volume 6.7; Monocytes # (A) 0.8 k/uL (0-1.0); Monocytes % (A) 4 %; Neutrophils # (A) 15.6 k/uL (1.3-7.7); Neutrophils % (A) 82 %; Platelet Count 424 k/uL (150-450); RBC 3.68 m/uL (4.30-5.90); RDW 15.5 % (11.5-15.5)
[2020-07-10 07:07] LABS: Calcium 8.8 mg/dL (8.4-10.2); Potassium 3.8 mmol/L (3.5-5.1)
[2020-07-10] MEDS: IPRATROPIUM-ALBUTEROL 3 ML NEB INHALATION SCH ×3 (08:34→16:08)
[2020-07-10] MEDS: SYMBICORT 160-4.5 MCG INHALER INHALATION SCH (08:35)
[2020-07-10] MEDS ORDERED: CEFDINIR 300 MG CAP PO SCH (09:00)
[2020-07-10] MEDS: amLODIPine 5 MG TAB PO SCH (10:04)
[2020-07-10] MEDS: HEPARIN SODIUM,PORCINE 5,000 UNIT/ML 1 ML VIAL SQ SCH (10:04)
[2020-07-10] MEDS: ASPIRIN 81 MG PO SCH (10:05)
[2020-07-10] MEDS: SODIUM BICARBONATE TAB 650 MG TAB PO SCH (10:05)
[2020-07-10] MEDS: hydrALAZINE HCL 50 MG TAB PO SCH ×2 (10:05→15:59)
[2020-07-10] MEDS: METOPROLOL TARTRATE 50 MG TAB PO SCH (10:05)
[2020-07-10] MEDS: TAMSULOSIN 0.4 MG CAP.ER.24H PO SCH (10:05)
[2020-07-10] MEDS: FUROSEMIDE 20 MG TAB PO SCH ×2 (10:05→15:59)
[2020-07-10] MEDS: MULTIVITAMINS, THERA 1 EACH TAB PO SCH (10:05)
[2020-07-10] MEDS: NITROGLYCERIN OINT 1 INCH/GM PACKET TOPICAL SCH ×2 (10:06→12:10)
[2020-07-10] MEDS: NICOTINE 14MG/24HR PATCH TRANSDERM SCH (10:06)
[2020-07-10 10:18] VITALS: TEMP 98.1
--- NOTE | 2020-07-10 11:16 | PN ---
PROGRESS NOTE Patient is seen for followup for acute kidney injury on top of chronic kidney disease. Patient is currently comfortable. His diuretics were changed to p.o. He is feeling much better. Serum creatinine is around 3. Baseline creatinine about 2.3-2.5 secondary to nephrosclerosis. PHYSICAL EXAMINATION: Today patient is comfortable, awake, not in any acute distress. Blood pressure was elevated 188/89, heart rate 114 per minute, he is afebrile. Examination of the heart S1, S2. Examination of the lungs, bilateral breath sounds are heard. Abdomen is soft, nontender. Examination of the lower extremities shows no significant edema. 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 LABS: Show sodium of 140, potassium 3.8, chloride 105, BUN 62, creatinine 3.13, hemoglobin 10.7 g/dL. ASSESSMENT: 1. Acute kidney injury, mostly cardiorenal, currently stable, continue with p.o. Lasix, monitor labs as outpatient. 2. Chronic kidney disease stage 3B to 4, baseline creatinine about 2.3-2.5 secondary to nephrosclerosis. 3. CHF exacerbation, acute on top of chronic mainly systolic. 4. Cardiomyopathy; 20% to 25%. 5. Chronic obstructive pulmonary disease. PLAN: Continue with oral Lasix. Monitor labs as outpatient and follow up in the office for CKD and adjustment of diuretics for volume status. MMODL / IJN: [id number] /
--- NOTE | 2020-07-10 11:39 | P.PN ---
Subjective Progress Note Date: 07/10/20 CHIEF COMPLAINT: Shortness of breath HISTORY OF PRESENT ILLNESS: Patient examined this morning at the bedside. He denies shortness of breath. He denies chest pain. He is hoping to be discharged home today. PHYSICAL EXAM: VITAL SIGNS: Reviewed. GENERAL: Well-developed in no acute distress. HEENT: Head is normocephalic. Pupils are equal, round. Sclerae anicteric. Mucous membranes of the mouth are moist. Neck supple. No JVD or thyromegaly LUNGS: Respirations even and unlabored. Lungs with improved aeration today. Mild wheezing noted. HEART: Regular rate and rhythm. S1 and S2 heard. EXTREMITIES: Normal range of motion. No clubbing or cyanosis. Peripheral pulses intact. No lower extremity edema NEUROLOGIC: Awake and alert. Oriented x 3. ASSESSMENT: 1. Acute exacerbation of systolic congestive heart failure, EF 20-25%, BNP 33,200 2. Hypertension 3. Hyperlipidemia 4. Chronic kidney disease 5. COPD 6. Nicotine dependence 7. Cardiomyopathy, EF 20-25% PLAN: Continue current cardiac medications Patient may be discharged home today from a cardiac standpoint Patient to follow-up with Dr. Cardoso outpatient. Will discuss possible AICD on an outpatient basis secondary to cardiomyopathy Nurse practitioner note has been reviewed by physician. Signing provider agrees with the documented findings, assessment, and plan of care. Objective - Vital Signs Vital signs: Vital Signs Temp 98.1 F 07/10/20 08:30 Pulse 92 07/10/20 08:49 Resp 19 07/10/20 08:30 BP 188/89 07/10/20 08:30 Pulse Ox 92 L 07/10/20 08:30 Intake & Output 07/09/20 07/10/20 07/10/20 18:59 06:59 18:59 Intake Total 222 300 240 Output Total 450 600 Balance -228 -300 240 Weight 61.6 kg 61.1 kg Intake: Oral 222 300 240 Output: Urine 450 600 Other: Voiding Method Urinal Urinal # Voids 1 0 - Labs CBC & Chem 7: 07/10/20 06:04 07/10/20 06:04 Labs: Abnormal Lab Results - Last 24 Hours (Table) 07/09/20 07/09/20 07/09/20 Range/Units 12:26 16:46 20:09 WBC (3.8-10.6) k/uL RBC (4.30-5.90) m/uL Hgb (13.0-17.5) gm/dL Hct (39.0-53.0) % Neutrophils # (1.3-7.7) k/uL BUN (9-20) mg/dL Creatinine (0.66-1.25) mg/dL POC Glucose (mg/dL) 152 H 178 H 182 H (75-99) mg/dL 07/10/20 07/10/20 07/10/20 Range/Units 06:04 06:04 06:07 WBC 19.0 H (3.8-10.6) k/uL RBC 3.68 L (4.30-5.90) m/uL Hgb 10.7 L (13.0-17.5) gm/dL Hct 33.7 L (39.0-53.0) % Neutrophils # 15.6 H (1.3-7.7) k/uL BUN 62 H (9-20) mg/dL Creatinine 3.13 H (0.66-1.25) mg/dL POC Glucose (mg/dL) 117 H (75-99) mg/dL Microbiology - Last 24 Hours (Table) 07/07/20 20:25 Blood Culture - Preliminary Blood No Growth after 48 hours
--- NOTE | 2020-07-10 11:46 | P.PN ---
Subjective Progress Note Date: 07/09/20 Principal diagnosis: Acute exacerbation of systolic congestive heart failure, EF 20-25%, Patient is a 70-year-old male with a known history of COPD, chronic CHF with systolic dysfunction ejection fraction 20-25%, hypertension, hyperlipidemia, anxiety/depression and history of cancerous polyp and prostate is ordered was admitted to the hospital with acute on chronic CHF and acute kidney injury. Patient was in acute respiratory failure and was placed on BiPAP. Currently pat ient is on oxygen via nasal cannula. CT of the chest without contrast was stopped and showed extensive interstitial prominence, acute interstitial pneumonia possibly. Enlarged mediastinal lymph nodes slightly increased compared to old exam. 07/09/2020 Patient is currently lying in the bed comfortably. The patient feels better today. No complaints of chest pain. Currently on oxacillin as an cannula at 2 L. Patient did not require BiPAP last night. Creatinine level is increased to 3.15 today. Patient is also having elevated WBC count. Chest x-ray showed significantly improved aeration of the bilateral lungs versus 07/07/2020 with mild persistent increased interstitial lung markings which may represent pneumonitis versus edema. Patient is currently on Lasix changed to by mouth. Currently on antibiotics in the form of Omnicef. Permanent cardiology is following. Laboratory data showed WBC 16.8, hemoglobin 10.6 and platelets 431 Sodium 141, potassium 4.4, BUN 45 creatinine 3.15 calcium 9.2 Blood cultures have been negative. Current medications reviewed. Objective - Vital Signs Vital signs: Vital Signs Temp 98.4 F 07/09/20 20:00 Pulse 116 H 07/09/20 20:00 Resp 18 07/09/20 20:00 BP 167/77 07/09/20 20:00 Pulse Ox 95 07/09/20 20:00 Intake & Output 07/09/20 07/09/20 07/10/20 06:59 18:59 06:59 Intake Total 710 222 Output Total 1500 450 Balance -790 -228 Weight 61.6 kg 61.6 kg Intake: Intake, IV Titration 410 Amount Azithromycin 500 mg In 250 Sodium Chloride 0.9% 250 ml @ 250 mls/hr IVPB HS [facility] Rx#:[id number] Sodium Chloride 0.9% 1, 160 000 ml @ 20 mls/hr IV . Q24H [facility] Rx#:[id number] Oral 300 222 Output: Urine 1500 450 Other: Voiding Method Urinal Urinal Urinal # Voids 1 - Exam PHYSICAL EXAMINATION: Patient is lying in the bed comfortably, no acute distress, awake alert and oriented.. HEENT: Normocephalic. Neck is supple. Pupils reactive. Nostrils clear. Oral cavity is moist. Ears reveal no drainage. Neck reveals no JVD, carotid bruits, or thyromegaly. CHEST EXAMINATION: Trachea is central. Symmetrical expansion. Bibasilar crackles and scattered rhonchi.. CARDIAC: Normal S1, S2 with no gallops. No murmurs ABDOMEN: Soft. Bowel sounds normal. No organomegaly. No abdominal bruits. Extremities: 1+ edema. No clubbing or cyanosis Neurologically awake, alert, oriented x3 with well-coordinated movements. No focal deficits noted Skin: No rash or skin lesions. Psychiatric: Coperative. Nonsuicidal Musculoskeletal: No joint swelling or deformity. Normal range of motion. - Labs CBC & Chem 7: 07/10/20 06:04 07/10/20 06:04 Labs: Abnormal Lab Results - Last 24 Hours (Table) 07/09/20 07/09/20 07/09/20 Range/Units 06:10 06:36 06:36 WBC 16.8 H (3.8-10.6) k/uL RBC 4.01 L (4.30-5.90) m/uL Hgb 11.6 L (13.0-17.5) gm/dL Hct 37.4 L (39.0-53.0) % Neutrophils # 15.0 H (1.3-7.7) k/uL Chloride 109 H (98-107) mmol/L Carbon Dioxide 20 L (22-30) mmol/L BUN 45 H (9-20) mg/dL Creatinine 3.15 H (0.66-1.25) mg/dL Glucose 125 H (74-99) mg/dL POC Glucose (mg/dL) 138 H (75-99) mg/dL 07/09/20 07/09/20 07/09/20 Range/Units 12:26 16:46 20:09 WBC (3.8-10.6) k/uL RBC (4.30-5.90) m/uL Hgb (13.0-17.5) gm/dL Hct (39.0-53.0) % Neutrophils # (1.3-7.7) k/uL Chloride (98-107) mmol/L Carbon Dioxide (22-30) mmol/L BUN (9-20) mg/dL Creatinine (0.66-1.25) mg/dL Glucose (74-99) mg/dL POC Glucose (mg/dL) 152 H 178 H 182 H (75-99) mg/dL Microbiology - Last 24 Hours (Table) 07/07/20 20:25 Blood Culture - Preliminary Blood No Growth after 24 hours Assessment and Plan Assessment: Acute hypoxic respiratory failure secondary to CHF. Acute on chronic CHF with systolic circumflex ejection fraction 20-25% Acute on chronic kidney disease stage III. Possible cardiorenal syndrome. Metabolic acidosis COPD not in exacerbation Significant medical history of smoking. Quit smoking recently. Severe cardiomyopathy ejection fraction 20-25% GERD Anxiety/depression BPH Hypertension Hyperlipidemia DVT prophylaxis. Plan: Patient is currently being continued on Lasix which was changed to 60 mg twice a day. Follow-up renal function closely. Currently denied with antibiotics in the form of azithromycin and Omnicef for possible pneumonia. Cardiology, nephrology and pulmonary is on board. Continue with breathing marcelina tments and strict I&O's. Prognosis is guarded. Time with Patient: Greater than 30
[2020-07-10 11:51] LABS: Glucose,Whole Blood 120 mg/dL (75-99)
--- NOTE | 2020-07-10 12:01 | XR ---
EXAMINATION TYPE: XR chest 1V portable DATE OF EXAM: 07/10/2020 COMPARISON: Prior chest x-ray 07/09/2020 HISTORY: Congestive heart failure TECHNIQUE: Single frontal view of the chest is obtained. FINDINGS: There is no focal air space opacity, pleural effusion, or pneumothorax seen. The cardiac silhouette size is within normal limits. Interstitium is mildly prominent. The osseous structures ar e intact. IMPRESSION: There may be some slight interval improved aeration, improvement in the interstitium alt kayley there are differences in technique.
--- NOTE | 2020-07-10 12:16 | P.PN ---
Subjective Progress Note Date: 07/10/20 Principal diagnosis: Acute hypoxic respiratory failure secondary to an acute exacerbation of systolic congestive heart failure 70-year-old white male patient [facility] [place], with past history significant for COPD, chronic CHF with recent echocardiogram showing EF of 20-25%, hypertension, hyperlipidemia, chronic smoker, anxiety, depression, history of cancerous polyp, prostate disorder, was recently hospitalized from 06/08/2020 through 06/13/2020 4 acute exacerbation of systolic CHF, acute kidney injury. Patient's breathing had improved, patient's renal function improved, and patient was supposed to follow up with cardiology in regards to AICD/pac char/LifeVest in regards to his severe cardiomyopathy. On 07/07/2020 patient presented to the emergency department with complaints of difficulty breathing, with onset of symptoms earlier in the morning. Patient had stopped smoking after his last hospitalization. He had been experiencing increased exertional dyspnea, as well as orthopnea, denied any leg pain or leg swelling, denied any chest pain. Denied any fever or chills. His chest x-ray showed moderately severe pulmonary interstitial edema, proBNP was significantly elevated at 33,200. EKG showed sinus tachycardia with a rate of [address] and T-wave abnormality. No leukocytosis, white count was 9.8, hemoglobin is 11, d-dimer was 2.04, sodium is 136, potassium is 4.6, chloride was 111, CO2 is 18, BUN is 19, creatinine is 2.37, LFTs are within normal limits, troponins were less than 0.012, and 0.017. Patient was placed on a BiPAP support overnight to assess his breathing, he is currently on nasal cannula, he is breathing easier, but still very dyspneic with any exertion, and conversation, lung sounds reveal scattered crackles at bilateral bases, he was given a dose of IV Lasix in the emergency room, he was started on maintenance dose of Lasix at 80 mg every 12 hours, he is on nebulized bronchodilators, and empiric antibiotics in the form of azithromycin and Rocephin. He is in -1.4 L fluid balance over the last 24 hours, he is breathing easier. CT chest was without contrast was obtained, showing extensive interstitial prominence, acute interstitial pneumonia possibility, enlarged mediastinal lymph nodes slightly increased compared to old exam. On 07/09/2020 patient seen in follow-up on selective care unit, his breathing continues to improve, he is down to 2 L of oxygen with pulse ox of 98-99%, will get probably wean him off the oxygen completely today. Not require BiPAP support last night, his been afebrile, hemodynamically has been stable. He has been diuresed, and according to the recorded weight his weight is down by 7.4 kg in the last 24 hours, he is in -1000 mL over last 24 hours for total net fluid balance, and -1.4 L the day before. He has been transitioned to oral Lasix, today's labs have been reviewed, showing worsening renal profile, with B1 up to 45 and creatinine up to 3.15, and patient has been transitioned to oral Lasix by cardiology. There has been increase in patient's white blood cell count, possibly steroid related, his been afebrile since admission. COVID 19 PCR was negative. Today's chest x-ray has been reviewed showing significant improved aeration of bilateral lungs with mild persistent increased interstitial lung markings which may represent fluid. The patient is seen today 07/10/2020 in follow-up on the selective care unit. He is awake and alert in no acute distress. He is breathing easier today as compared to yesterday. Maintaining O2 saturations in the 90s on room air. He's been afebrile. Today's chest x-ray shows improved aeration. Blood culture reveals no growth. White count 19.0. Hemoglobin 10.7. Sodium 140. Potassium 3.8. Creatinine 3.13. He remains on Lasix 60 mg every 12 hours. Sodium bicarb tablets. Continued on bronchodilators, antibiotics in the form of Omnicef and azithromycin. Nicotine patch in place. Objective - Vital Signs Vital signs: Vital Signs Temp 98.1 F 07/10/20 08:30 Pulse 88 07/10/20 11:59 Resp 19 07/10/20 08:30 BP 188/89 07/10/20 08:30 Pulse Ox 92 L 07/10/20 08:30 Intake & Output 07/09/20 07/10/20 07/10/20 18:59 06:59 18:59 Intake Total 222 300 240 Output Total 450 600 Balance -228 -300 240 Weight 61.6 kg 61.1 kg Intake: Oral 222 300 240 Output: Urine 450 600 Other: Voiding Method Urinal Urinal # Voids 1 0 - Exam GENERAL EXAM: Alert, very pleasant, 70-year-old male patient, currently on room air, the pulse ox of 92%, did not require BiPAP support last night, breathing is comfortable, no acute distress HEAD: Normocephalic/atraumatic. EYES: Normal reaction of pupils, equal size. Conjunctiva pink, sclera white. NOSE: Clear with pink turbinates. THROAT: No erythema or exudates. NECK: No masses, no JVD, no thyroid enlargement, no adenopathy. CHEST: No chest wall deformity. Symmetrical expansion. LUNGS: Equal air entry with crackles bilaterally at the bases CVS: Regular rate and rhythm, normal S1 and S2, no gallops, no murmurs, no rubs ABDOMEN: Soft, nontender. No hepatosplenomegaly, normal bowel sounds, no guarding or rigidity. EXTREMITIES: No clubbing, no edema, no cyanosis, 2+ pulses and upper and lower extremities. MUSCULOSKELETAL: Muscle strength and tone normal. SPINE: No scoliosis or deformity SKIN: No rashes CENTRAL NERVOUS SYSTEM: No focal deficits, tone is normal in all 4 extremities. PSYCHIATRIC: Alert and oriented -3. Appropriate affect. Intact judgment and insight. - Labs CBC & Chem 7: 07/10/20 06:04 07/10/20 06:04 Labs: Abnormal Lab Results - Last 24 Hours (Table) 07/09/20 07/09/20 07/09/20 Range/Units 12:26 16:46 20:09 WBC (3.8-10.6) k/uL RBC (4.30-5.90) m/uL Hgb (13.0-17.5) gm/dL Hct (39.0-53.0) % Neutrophils # (1.3-7.7) k/uL BUN (9-20) mg/dL Creatinine (0.66-1.25) mg/dL POC Glucose (mg/dL) 152 H 178 H 182 H (75-99) mg/dL 07/10/20 07/10/20 07/10/20 Range/Units 06:04 06:04 06:07 WBC 19.0 H (3.8-10.6) k/uL RBC 3.68 L (4.30-5.90) m/uL Hgb 10.7 L (13.0-17.5) gm/dL Hct 33.7 L (39.0-53.0) % Neutrophils # 15.6 H (1.3-7.7) k/uL BUN 62 H (9-20) mg/dL Creatinine 3.13 H (0.66-1.25) mg/dL POC Glucose (mg/dL) 117 H (75-99) mg/dL 07/10/20 Range/Units 11:43 WBC (3.8-10.6) k/uL RBC (4.30-5.90) m/uL Hgb (13.0-17.5) gm/dL Hct (39.0-53.0) % Neutrophils # (1.3-7.7) k/uL BUN (9-20) mg/dL Creatinine (0.66-1.25) mg/dL POC Glucose (mg/dL) 120 H (75-99) mg/dL Microbiology - Last 24 Hours (Table) 07/07/20 20:25 Blood Culture - Preliminary Blood No Growth after 48 hours Assessment and Plan Assessment: #1. Acute respiratory failure related to acute exacerbation of systolic CHF, doubt possibility of pneumonia based on significant improvement on the chest x- ray findings and response to diuretics. Hypoxia has improved, patient did require BiPAP support in the initial stages, has not required BiPAP support in last 24 hours, FiO2 is down to room air #2. Recent hospitalization for acute exacerbation of systolic CHF, from 06/08/2020 through 06/13/2020 #3. Chronic obstructive pulmonary disease #4. Nicotine dependence, recently quit smoking, carries over [id number] smoking history #5. Severe cardiomyopathy, with the EF of 20-25% #6. GERD/reflux #7. Chronic kidney disease, stage III or IV possibly related to cardiorenal s yndrome #8. History of prostate disorder #9. Previous history of GI bleeding #10. Anxiety/depression #11. Hypertension #12. Hyperlipidemia #13. Elevated d-dimer, nonspecific, pulmonary embolism is doubtful #14. Acute kidney injury on top of chronic kidney disease, nephrology is following, this probably related to cardiorenal syndrome and diuretic therapy Plan: The patient was seen and evaluated by Dr. Beck Chest x-ray and labs reviewed Stable from the pulmonary standpoint Diuretics per nephrology Continue to monitor creatinine Educated regarding the importance of complete smoking cessation NicoDerm patch remains in place Continue Symbicort and albuterol HFA I, the cosigning physician, performed a history & physical examination of the patient. Lungs sounds with faint crackles in the bilateral posterior bases. Maintaining good O2 saturations in the 90s on room air. I discussed the assessment and plan of care with my nurse practitioner, Lilly Ball. I attest to the above note as dictated by her.
[2020-07-10] MEDS: hydrALAZINE HCL 25 MG TAB PO PRN (12:17)
[2020-07-10 12:21] VITALS: BP 174/89; PULSE 90; RESP 17
== END 2020-07-10 16:28 | disposition home or self-care (01) | DRG 291 ==
LOC: EC 16:50 → 3SCARD 19:04
PROVIDERS: ADMIT Hospitalist; ATTEND Hospitalist
PROC: 5A09457 Assistance with Respiratory Ventilation, 24-96 Consecutive Hours, Continuous Positive Airway Pressure (ICD-10-PCS; principal; 2020-07-07)
DX: I13.0 Hypertensive heart and chronic kidney disease with heart failure and stage 1 through stage 4 chronic kidney disease, or unspecified chronic kidney disease (principal); J96.01 Acute respiratory failure with hypoxia; I50.23 Acute on chronic systolic (congestive) heart failure; J18.9 Pneumonia, unspecified organism; N18.4 Chronic kidney disease, stage 4 (severe); E87.2 Acidosis; N17.9 Acute kidney failure, unspecified; E78.5 Hyperlipidemia, unspecified; K21.9 Gastro-esophageal reflux disease without esophagitis; F32.9 Major depressive disorder, single episode, unspecified; F41.9 Anxiety disorder, unspecified; Z20.828 Contact with and (suspected) exposure to other viral communicable diseases; J44.9 Chronic obstructive pulmonary disease, unspecified; N40.0 Benign prostatic hyperplasia without lower urinary tract symptoms; G25.81 Restless legs syndrome; M19.90 Unspecified osteoarthritis, unspecified site; I08.1 Rheumatic disorders of both mitral and tricuspid valves; I42.9 Cardiomyopathy, unspecified; Z79.899 Other long term (current) drug therapy; Z79.82 Long term (current) use of aspirin; Z88.5 Allergy status to narcotic agent; Z88.8 Allergy status to other drugs, medicaments and biological substances; Z87.891 Personal history of nicotine dependence; Z85.038 Personal history of other malignant neoplasm of large intestine; Z90.49 Acquired absence of other specified parts of digestive tract; Z98.890 Other specified postprocedural states; Z98.1 Arthrodesis status; Z80.3 Family history of malignant neoplasm of breast; Z82.49 Family history of ischemic heart disease and other diseases of the circulatory system; Z82.5 Family history of asthma and other chronic lower respiratory diseases; Z82.41 Family history of sudden cardiac death; Z79.51 Long term (current) use of inhaled steroids; Z87.438 Personal history of other diseases of male genital organs; Z87.19 Personal history of other diseases of the digestive system
CPT/HCPCS: 36415; 71045; 71046; 71250; 80048; 80053; 80306; 81001; 83605; 83880; 84484; 85025; 85379; 85610; 85652; 85730; 86140; 87040; 93005; 93306; 93970; 94640; 94660; 96365; 96368; 96372; 96375; 99291

== ENCOUNTER 2020-09-05 15:00 | Inpatient (IN) | payer OTHER, MEDICARE ==
--- NOTE | 2020-09-05 15:21 | ED ---
SOB HPI - General Chief Complaint: Shortness of Breath Stated Complaint: SOB/nausea/weakness Time Seen by Provider: 09/05/20 15:07 Source: patient, RN notes reviewed Mode of arrival: ambulatory - History of Present Illness Initial Comments: This is a 70-year-old male with a history of CHF history of renal insufficiency who is here with complaints of shortness of breath exertional dyspnea and not eating for past 5 days intermittent episodes of sharp left-sided chest pain none now nausea generally not doing well. Is some weakness and intermittent dizziness MD Complaint: shortness of breath - Related Data Home Medications Medication Instructions Recorded Confirmed Amitriptyline HCl [Elavil] 100 mg PO HS 06/04/16 09/05/20 Cholecalciferol [Vitamin D3 (25 1,000 unit PO DAILY 06/04/16 09/05/20 Mcg = 1000 Iu)] Mirtazapine [Remeron] 45 mg PO HS 06/04/16 09/05/20 Simvastatin [Zocor] 20 mg PO HS 06/04/16 09/05/20 Tamsulosin [Flomax] 0.4 mg PO DAILY 06/04/16 09/05/20 clonazePAM [KlonoPIN] 1 mg PO BID 06/04/16 09/05/20 Albuterol Inhaler [Ventolin Hfa 1 puff INHALATION RT-QID PRN 06/08/20 09/05/20 Inhaler] Budesonide/Formoterol Fumarate 2 puff INHALATION RT-BID 06/08/20 09/05/20 [Symbicort 160-4.5 Mcg Inhaler] Docusate [Colace] 200 mg PO DAILY 06/08/20 09/05/20 Famotidine [Pepcid] 20 mg PO BID PRN 06/08/20 09/05/20 Melatonin 3 mg PO HS 06/08/20 09/05/20 Multivitamins, Thera [Multivitamin 1 tab PO DAILY 06/08/20 09/05/20 (formulary)] polyethylene glycoL 3350 [Miralax] 17 gm PO DAILY 06/08/20 09/05/20 hydrALAZINE HCL [Apresoline] 10 mg PO TID 07/07/20 09/05/20 Metoprolol Tartrate 50 mg PO BID 09/05/20 09/05/20 Previous Rx's Medication Instructions Recorded Aspirin 81 mg PO DAILY #30 chew 06/13/20 Spironolactone [Aldactone] 25 mg PO DAILY #30 tab 06/13/20 Furosemide [Lasix] 60 mg PO BID@0900,1600 #60 tab 07/10/20 amLODIPine [Norvasc] 5 mg PO DAILY #30 tab 07/10/20 Allergies Allergy/AdvReac Type Severity Reaction Status Date / Time lisinopril Allergy swollen Verified 09/05/20 16:46 testicle,rash morphine AdvReac Nausea & Verified 09/05/20 16:46 Vomiting Review of Systems ROS Statement: Those systems with pertinent positive or pertinent negative responses have been documented in the HPI. ROS Other: All systems not noted in ROS Statement are negative. Past Medical History Past Medical History: Cancer, COPD, GERD/Reflux, Hyperlipidemia, Hypertension, Prostate Disorder Additional Past Medical History / Comment(s): cancerous polyp,enlarged prostate,HEMORRHOIDS, BLOOD IN STOOL, RESTLESS LEG - intermittent, colon Cancer History of Any Multi-Drug Resistant Organisms: None Reported Past Surgical History: Appendectomy, Orthopedic Surgery Additional Past Surgical History / Comment(s): ACL SX RT KNEE X3, LEFT HEEL FUSION, LEFT ARM BICEP SX, NASAL SX R/T ULCER, colon resection, COLONOSCOPY, Past Anesthesia/Blood Transfusion Reactions: No Reported Reaction Past Psychological History: Anxiety, Depression Smoking Status: Former smoker Past Alcohol Use History: None Reported Past Drug Use History: None Reported - Past Family History Mother Family Medical History: Cancer Additional Family Medical History / Comment(s): BREAST Sister(s) Family Medical History: Deep Vein Thrombosis (DVT) Father Family Medical History: COPD Additional Family Medical History / Comment(s): FROM CARDIAC ARREST General Exam - General Exam Comments Initial Comments: Is a well-developed sec appearing male who is awake alert oriented 3 General appearance: alert, in no apparent distress Head exam: Present: atraumatic, normocephalic, normal inspection Eye exam: Present: normal appearance, PERRL, EOMI. Absent: scleral icterus, c onjunctival injection, periorbital swelling ENT exam: Present: normal exam, mucous membranes moist Neck exam: Present: normal inspection, full ROM, other (No stridor JVD or bruits). Absent: tenderness, meningismus, lymphadenopathy Respiratory exam: Present: decreased breath sounds. Absent: respiratory distress, wheezes, rales, rhonchi, stridor Cardiovascular Exam: Present: regular rate, normal rhythm, normal heart sounds. Absent: systolic murmur, diastolic murmur, rubs, gallop, clicks GI/Abdominal exam: Present: soft, normal bowel sounds. Absent: distended, tenderness, guarding, rebound, rigid Extremities exam: Present: normal inspection, full ROM, normal capillary refill. Absent: tenderness, pedal edema, joint swelling, calf tenderness Back exam: Present: normal inspection Neurological exam: Present: alert, oriented X3, CN II-XII intact Psychiatric exam: Present: normal affect, normal mood Skin exam: Present: warm, dry, intact, normal color. Absent: rash Course Vital Signs 09/05/20 09/05/20 09/05/20 15:01 17:02 17:09 Temperature 98 F Pulse Rate 94 96 94 Respiratory 28 H Rate Blood Pressure 155/89 O2 Sat by Pulse 95 Oximetry 09/05/20 17:15 Temperature Pulse Rate 100 Respiratory 18 Rate Blood Pressure 159/98 O2 Sat by Pulse 98 Oximetry Medical Decision Making - Medical Decision Making I did discuss findings the patient and family as well as with Dr. day. Patient be admitted with cardiology consultation. The presentation is consistent with CHF and chronic renal failure. Is likely a component of COPD. - Lab Data Result diagrams: 09/05/20 15:27 09/05/20 15:27 Lab Results 09/05/20 09/05/20 09/05/20 Range/Units 15:27 15:27 15:27 WBC 10.9 H (3.8-10.6) k/uL RBC 4.06 L (4.30-5.90) m/uL Hgb 12.1 L (13.0-17.5) gm/dL Hct 37.5 L (39.0-53.0) % MCV 92.4 (80.0-100.0) fL MCH 29.8 (25.0-35.0) pg MCHC 32.3 (31.0-37.0) g/dL RDW 14.8 (11.5-15.5) % Plt Count 474 H (150-450) k/uL Neutrophils % 72 % Lymphocytes % 18 % Monocytes % 6 % Eosinophils % 2 % Basophils % 1 % Neutrophils # 7.9 H (1.3-7.7) k/uL Lymphocytes # 1.9 (1.0-4.8) k/uL Monocytes # 0.6 (0-1.0) k/uL Eosinophils # 0.3 (0-0.7) k/uL Basophils # 0.1 (0-0.2) k/uL PT 10.5 (9.0-12.0) sec INR 1.0 (<1.2) APTT 26.2 (22.0-30.0) sec Sodium 135 L (137-145) mmol/L Potassium 4.3 (3.5-5.1) mmol/L Chloride 97 L (98-107) mmol/L Carbon Dioxide 26 (22-30) mmol/L Anion Gap 12 mmol/L BUN 30 H (9-20) mg/dL Creatinine 2.48 H (0.66-1.25) mg/dL Est GFR (CKD-EPI)AfAm 30 (>60 ml/min/1.73 sqM) Est GFR (CKD-EPI)NonAf 26 (>60 ml/min/1.73 sqM) Glucose 115 H (74-99) mg/dL Plasma Lactic Acid Dipesh (0.7-2.0) mmol/L Calcium 9.3 (8.4-10.2) mg/dL Magnesium 2.8 H (1.6-2.3) mg/dL Total Bilirubin 0.7 (0.2-1.3) mg/dL AST 60 H (17-59) U/L ALT 59 H (4-49) U/L Alkaline Phosphatase 131 H (38-126) U/L Creatine Kinase 46 L (55-170) U/L Troponin I (0.000-0.034) ng/mL NT-Pro-B Natriuret Pep pg/mL Total Protein 7.2 (6.3-8.2) g/dL Albumin 4.0 (3.5-5.0) g/dL 09/05/20 09/05/20 09/05/20 Range/Units 15:27 15:27 15:27 WBC (3.8-10.6) k/uL RBC (4.30-5.90) m/uL Hgb (13.0-17.5) gm/dL Hct (39.0-53.0) % MCV (80.0-100.0) fL MCH (25.0-35.0) pg MCHC (31.0-37.0) g/dL RDW (11.5-15.5) % Plt Count (150-450) k/uL Neutrophils % % Lymphocytes % % Monocytes % % Eosinophils % % Basophils % % Neutrophils # (1.3-7.7) k/uL Lymphocytes # (1.0-4.8) k/uL Monocytes # (0-1.0) k/uL Eosinophils # (0-0.7) k/uL Basophils # (0-0.2) k/uL PT (9.0-12.0) sec INR (<1.2) APTT (22.0-30.0) sec Sodium (137-145) mmol/L Potassium (3.5-5.1) mmol/L Chloride (98-107) mmol/L Carbon Dioxide (22-30) mmol/L Anion Gap mmol/L BUN (9-20) mg/dL Creatinine (0.66-1.25) mg/dL Est GFR (CKD-EPI)AfAm (>60 ml/min/1.73 sqM) Est GFR (CKD-EPI)NonAf (>60 ml/min/1.73 sqM) Glucose (74-99) mg/dL Plasma Lactic Acid Dipesh 1.9 (0.7-2.0) mmol/L Calcium (8.4-10.2) mg/dL Magnesium (1.6-2.3) mg/dL Total Bilirubin (0.2-1.3) mg/dL AST (17-59) U/L ALT (4-49) U/L Alkaline Phosphatase (38-126) U/L Creatine Kinase (55-170) U/L Troponin I 0.063 H* (0.000-0.034) ng/mL NT-Pro-B Natriuret Pep 16726 pg/mL Total Protein (6.3-8.2) g/dL Albumin (3.5-5.0) g/dL - EKG Data -: EKG Interpreted by Me EKG Comments: Aspirin 85. Interval 164 QRS 112 QT since QTC 476/566 incomplete left bundle- branch block moderate criteria for LVH nonspecific ST-T wave configuration anterolateral leads additionally prolonged QT noted - Radiology Data Radiology results: report reviewed (I did review the imaging and report no acute findings chronic changes seen.), image reviewed Disposition Clinical Impression: Congestive heart failure, Acute exacerbation of chronic obstructive pulmonary disease, Chronic renal failure, Elevated troponin Disposition: ADMITTED IP TO THIS HOSP Condition: Fair Referrals: [facility],Clinic [Primary Care Provider] - 1-2 days
--- NOTE | 2020-09-05 15:49 | XR ---
EXAMINATION TYPE: XR chest 2V DATE OF EXAM: 09/05/2020 COMPARISON: Chest x-ray July 10, 2020. Chest CT July 07, 2020 HISTORY: Shortness of breath. TECHNIQUE: Frontal and lateral views of the chest are obtained. FINDINGS: There is chronic emphysematous and parenchymal changes bilaterally without suspicious new focal air space opacity, pleural effusion, or pneumothorax seen. The cardiac silhouette size remains within normal limits. The osseous structures are intact. IMPRESSION: Chronic changes without acute pulmonary process.
[2020-09-05 15:51] LABS: Basophils # (A) 0.1 k/uL (0-0.2); Basophils % (A) 1 %; Eosinophils # (A) 0.3 k/uL (0-0.7); Eosinophils % (A) 2 %; HCT 37.5 % (39.0-53.0); HGB 12.1 gm/dL (13.0-17.5); Lymphocytes # (A) 1.9 k/uL (1.0-4.8); Lymphocytes % (A) 18 %; MCH 29.8 pg (25.0-35.0); MCHC 32.3 g/dL (31.0-37.0); MCV 92.4 fL (80.0-100.0); Mean Platelet Volume 6.6; Monocytes # (A) 0.6 k/uL (0-1.0); Monocytes % (A) 6 %; Neutrophils # (A) 7.9 k/uL (1.3-7.7); Neutrophils % (A) 72 %; Platelet Count 474 k/uL (150-450); RBC 4.06 m/uL (4.30-5.90); RDW 14.8 % (11.5-15.5); WBC 10.9 k/uL (3.8-10.6)
[2020-09-05 15:58] LABS: Calcium 9.3 mg/dL (8.4-10.2); Magnesium 2.8 mg/dL (1.6-2.3); Potassium 4.3 mmol/L (3.5-5.1); Total Bilirubin 0.7 mg/dL (0.2-1.3); Total Protein 7.2 g/dL (6.3-8.2)
[2020-09-05 16:01] LABS: Partial Thromboplastin Time 26.2 sec (22.0-30.0); Prothrombin Time 10.5 sec (9.0-12.0)
[2020-09-05] MEDS ORDERED: IPRATROPIUM-ALBUTEROL 3 ML NEB INHALATION STA (16:50)
[2020-09-05] MEDS ORDERED: FUROSEMIDE 10 MG/ML 4 ML VIAL IV STA (16:50)
[2020-09-05] MEDS ORDERED: FAMOTIDINE 20 MG TAB PO PRN (17:32)
[2020-09-05] MEDS ORDERED: FUROSEMIDE 10 MG/ML 4 ML VIAL IV SCH (17:45)
[2020-09-05] MEDS ORDERED: ASPIRIN 81 MG PO STA (18:24)
[2020-09-05] MEDS: MELATONIN 3 MG TABLET PO SCH (20:26)
[2020-09-05] MEDS: clonazePAM 1 MG TAB PO SCH (20:26)
[2020-09-05] MEDS: METOPROLOL TARTRATE 50 MG TAB PO SCH (20:26)
[2020-09-05] MEDS: ATORVASTATIN 10 MG TAB PO SCH (20:26)
[2020-09-05] MEDS: AMITRIPTYLINE HCL 50 MG TAB PO SCH (20:26)
[2020-09-05] MEDS: SYMBICORT 160-4.5 MCG INHALER INHALATION SCH (20:45)
[2020-09-05] MEDS: IPRATROPIUM-ALBUTEROL 3 ML NEB INHALATION SCH (20:45)
[2020-09-05] MEDS: hydrALAZINE HCL 10 MG TAB PO SCH (21:20)
[2020-09-05] MEDS: MIRTAZAPINE 45 MG TABLET PO SCH (21:21)
[2020-09-06] MEDS: FUROSEMIDE 10 MG/ML 4 ML VIAL IV SCH ×2 (00:05→10:49)
[2020-09-06] MEDS: IPRATROPIUM-ALBUTEROL 3 ML NEB INHALATION SCH ×7 (00:22→23:36)
[2020-09-06 08:19] LABS: Basophils # (A) 0.1 k/uL (0-0.2); Basophils % (A) 1 %; Eosinophils # (A) 0.2 k/uL (0-0.7); Eosinophils % (A) 2 %; HCT 36.6 % (39.0-53.0); HGB 11.4 gm/dL (13.0-17.5); Hypochromasia Slight; Lymphocytes % (A) 22 %; MCH 29.3 pg (25.0-35.0); MCHC 31.2 g/dL (31.0-37.0); MCV 93.8 fL (80.0-100.0); Mean Platelet Volume 6.6; Monocytes # (A) 0.5 k/uL (0-1.0); Monocytes % (A) 6 %; Neutrophils % (A) 67 %; Platelet Count 488 k/uL (150-450); RDW 15.1 % (11.5-15.5); WBC 8.9 k/uL (3.8-10.6)
[2020-09-06 08:30] LABS: Calcium 8.9 mg/dL (8.4-10.2); Magnesium 2.6 mg/dL (1.6-2.3); Potassium 4.3 mmol/L (3.5-5.1)
[2020-09-06] MEDS: SYMBICORT 160-4.5 MCG INHALER INHALATION SCH ×2 (08:57→19:37)
[2020-09-06] MEDS ORDERED: FUROSEMIDE 20 MG TAB PO SCH (09:00)
[2020-09-06] MEDS ORDERED: SPIRONOLACTONE 25 MG TAB PO SCH (09:00)
[2020-09-06] MEDS: DOCUSATE 100 MG CAP PO SCH (10:48)
[2020-09-06] MEDS: ASPIRIN 81 MG PO SCH (10:48)
[2020-09-06] MEDS: polyethylene glycoL 3350 17 GM POWD.PACK PO SCH (10:48)
[2020-09-06] MEDS: clonazePAM 1 MG TAB PO SCH ×2 (10:48→20:26)
[2020-09-06] MEDS: METOPROLOL TARTRATE 50 MG TAB PO SCH (10:49)
[2020-09-06] MEDS: MULTIVITAMINS, THERA 1 EACH TAB PO SCH (10:49)
[2020-09-06] MEDS: amLODIPine 5 MG TAB PO SCH (10:49)
[2020-09-06] MEDS: CHOLECALCIFEROL 1,000 UNIT TAB PO SCH (10:49)
[2020-09-06] MEDS: hydrALAZINE HCL 10 MG TAB PO SCH ×3 (10:49→22:09)
[2020-09-06] MEDS: TAMSULOSIN 0.4 MG CAP.ER.24H PO SCH (10:49)
[2020-09-06 11:49] VITALS: BMI 21.8
--- NOTE | 2020-09-06 12:32 | P.CRDCN ---
History of Present Illness Consult date: 09/06/20 Consult reason: shortness of breath History of present illness: The patient is a 70-year-old male with past medical history of congestive heart failure, cardiomyopathy, and chronic renal insufficiency, presented to the emergency room with increased exertional dyspnea and intermittent chest pains. He states this has been progressing over the course the last 5 days. The patient was scheduled to follow-up in the office with Dr. Cardoso, however that appointment was canceled by the patient. His appointment was rescheduled to the end of September. According to the patient it was recommended that he undergo coronary angiography in the month of June, however it was canceled due to chronic kidney disease. He denies any alcohol or nicotine use. The patient was interviewed and examined lying comfortably in bed. He states his symptoms have significantly improved, however he has not been up walking around the room. He is currently saturating well on 2 L nasal cannula. DIAGNOSTICS: EKG shows sinus rhythm with incomplete left bundle branch block and nonspecific T-wave changes. Mildly prolonged QT interval. Chest x-ray shows chronic changes without acute pulmonary process Echocardiogram from July 08 shows severe global hypokinesis with LV function at 20-25% with mild to moderate mitral regurgitation and mild tricuspid regurgitation Laboratory data WBC 8.9, hemoglobin 11.4, hematocrit 36.6, platelet 488, sodium 136, potassium 4.3, BUN 31, creatinine 2.73, magnesium 2.6, troponin 0.063, 0.076, BNP 67,200 PAST MEDICAL HISTORY: Cardiomyopathy with known EF at 20-25%, congestive heart failure, former smoker, chronic kidney disease, COPD REVIEW OF SYSTEMS: No fever or chills. No cough or expectoration. No diaphoresis. Patient denies headache, dizziness, blurred vision, double vision. Patient denies any stomach discomfort. No nausea, vomiting. No hematochezia. No hematemesis. Denies any black stools or blood in his stools. Denies dysuria or hematuria. No muscle weakness or numbness. PHYSICAL EXAMINATION: This is a 70-year-old male in no apparent distress at the time of my examination. HEENT: Head is atraumatic, normocephalic. Pupils are equal, round. Sclerae anicteric. Conjunctivae are clear. Mucous membranes of the mouth are moist. Neck is supple. There is no jugular venous distention. No carotid bruit is heard. CHEST EXAMINATION: Lungs are clear to auscultation. Diminished in the bases. No chest wall tenderness is noted on palpation or with deep breathing. HEART EXAMINATION: Heart regular rate and rhythm. S1, S2 heard. No murmurs, gallops or rub. ABDOMEN: Soft, nontender. Bowel sounds are heard. No organomegaly noted. EXTREMITIES: 2+ peripheral pulses with no evidence of peripheral edema and no calf tenderness noted. NEUROLOGIC EXAMINATION: Patient is awake, alert and oriented x3. FINAL ASSESSMENT AND PLAN: #1 chest discomfort, elevated troponins, may be cardiorenal however patient has not undergone coronary angiography since he was diagnosed with cardiomyopathy #2 cardiomyopathy, known EF of 20-25% #3 acute on chronic systolic heart failure, elevated BNP, appears euvolemic at this time #4 chronic kidney disease, GFR 26 #5 hypertension #6 dyslipidemia #7 noncompliance with medical regimen #8 valvular heart disease PLAN: We will switch to carvedilol for better blood pressure control. Discontinue IV furosemide as patient appears euvolemic. Discontinue Spironolactone due to elevated creatinine. Continue to monitor electrolytes and kidney function. Consideration for coronary angiography to be made based on clinical course. The patient has been seen and evaluated. Plan of care has been reviewed and agreed upon by Dr Matta. Past Medical History Past Medical History: Cancer, COPD, GERD/Reflux, Hyperlipidemia, Hypertension, Prostate Disorder Additional Past Medical History / Comment(s): cancerous polyp,enlarged prostate,HEMORRHOIDS, BLOOD IN STOOL, RESTLESS LEG - intermittent, colon Cancer History of Any Multi-Drug Resistant Organisms: None Reported Past Surgical History: Appendectomy, Orthopedic Surgery Additional Past Surgical History / Comment(s): ACL SX RT KNEE X3, LEFT HEEL FUSION, LEFT ARM BICEP SX, NASAL SX R/T ULCER, colon resection, COLONOSCOPY, Past Anesthesia/Blood Transfusion Reactions: No Reported Reaction Past Psychological History: Anxiety, Depression Smoking Status: Former smoker Past Alcohol Use History: None Reported Additional Past Alcohol Use History / Comment(s): STARTED AGE 19, SMOKES 1PPD Past Drug Use History: None Reported - Past Family History Mother Family Medical History: Cancer Additional Family Medical History / Comment(s): BREAST Sister(s) Family Medical History: Deep Vein Thrombosis (DVT) Father Family Medical History: COPD Additional Family Medical History / Comment(s): FROM CARDIAC ARREST Medications and Allergies Home Medications Medication Instructions Recorded Confirmed Type Amitriptyline HCl [Elavil] 100 mg PO HS 06/04/16 09/05/20 History Cholecalciferol [Vitamin D3 (25 1,000 unit PO DAILY 06/04/16 09/05/20 History Mcg = 1000 Iu)] Mirtazapine [Remeron] 45 mg PO HS 06/04/16 09/05/20 History Simvastatin [Zocor] 20 mg PO HS 06/04/16 09/05/20 History Tamsulosin [Flomax] 0.4 mg PO DAILY 06/04/16 09/05/20 History clonazePAM [KlonoPIN] 1 mg PO BID 06/04/16 09/05/20 History Albuterol Inhaler [Ventolin Hfa 1 puff INHALATION RT-QID PRN 06/08/20 09/05/20 History Inhaler] Budesonide/Formoterol Fumarate 2 puff INHALATION RT-BID 06/08/20 09/05/20 History [Symbicort 160-4.5 Mcg Inhaler] Docusate [Colace] 200 mg PO DAILY 06/08/20 09/05/20 History Famotidine [Pepcid] 20 mg PO BID PRN 06/08/20 09/05/20 History Melatonin 3 mg PO HS 06/08/20 09/05/20 History Multivitamins, Thera [Multivitamin 1 tab PO DAILY 06/08/20 09/05/20 History (formulary)] polyethylene glycoL 3350 [Miralax] 17 gm PO DAILY 06/08/20 09/05/20 History Aspirin 81 mg PO DAILY #30 chew 06/13/20 09/05/20 Rx Spironolactone [Aldactone] 25 mg PO DAILY #30 tab 06/13/20 09/05/20 Rx hydrALAZINE HCL [Apresoline] 10 mg PO TID 07/07/20 09/05/20 History Furosemide [Lasix] 60 mg PO BID@0900,1600 #60 tab 07/10/20 09/05/20 Rx amLODIPine [Norvasc] 5 mg PO DAILY #30 tab 07/10/20 09/05/20 Rx Metoprolol Tartrate 50 mg PO BID 09/05/20 09/05/20 History Allergies Allergy/AdvReac Type Severity Reaction Status Date / Time lisinopril Allergy swollen Verified 09/05/20 16:46 testicle,rash morphine AdvReac Nausea & Verified 09/05/20 16:46 Vomiting Physical Exam Vitals: Vital Signs Temp Pulse Pulse Resp BP BP Pulse Ox 09/06/20 12:12 102 H 09/06/20 12:02 102 H 09/06/20 09:12 90 09/06/20 08:58 90 09/06/20 08:00 97.7 F 111 H 18 182/97 94 L 09/06/20 04:03 97 09/06/20 04:00 97.6 F 97 18 139/88 97 09/06/20 03:53 91 09/06/20 00:40 104 H 09/06/20 00:24 100 09/06/20 00:00 97.3 F L 91 18 142/85 96 09/05/20 20:54 112 H 09/05/20 20:46 108 H 09/05/20 20:00 97.3 F L 107 H 20 181/99 93 L 09/05/20 19:00 18 09/05/20 17:15 100 18 159/98 98 09/05/20 17:09 94 09/05/20 17:02 96 09/05/20 15:04 165/95 09/05/20 15:01 98 F 94 28 H 155/89 95 Intake and Output 09/05/20 09/06/20 09/06/20 22:59 06:59 14:59 Output Total 450 Balance -450 Output: Urine 450 Other: Voiding Method Urinal # Voids 1 Weight 61.235 kg 63.2 kg 63.2 kg Results 09/06/20 07:10 09/06/20 07:10 Cardiac Enzymes 09/05/20 09/05/20 09/06/20 Range/Units 15:27 15:27 00:09 AST 60 H (17-59) U/L Troponin I 0.063 H* 0.076 H* (0.000-0.034) ng/mL Coagulation 09/05/20 Range/Units 15:27 PT 10.5 (9.0-12.0) sec APTT 26.2 (22.0-30.0) sec CBC 09/05/20 09/06/20 Range/Units 15:27 07:10 WBC 10.9 H 8.9 (3.8-10.6) k/uL RBC 4.06 L 3.90 L (4.30-5.90) m/uL Hgb 12.1 L 11.4 L (13.0-17.5) gm/dL Hct 37.5 L 36.6 L (39.0-53.0) % Plt Count 474 H 488 H (150-450) k/uL Comprehensive Metabolic Panel 09/05/20 09/06/20 Range/Units 15:27 07:10 Sodium 135 L 136 L (137-145) mmol/L Potassium 4.3 4.3 (3.5-5.1) mmol/L Chloride 97 L 98 (98-107) mmol/L Carbon Dioxide 26 29 (22-30) mmol/L BUN 30 H 31 H (9-20) mg/dL Creatinine 2.48 H 2.73 H (0.66-1.25) mg/dL Glucose 115 H 118 H (74-99) mg/dL Calcium 9.3 8.9 (8.4-10.2) mg/dL AST 60 H (17-59) U/L ALT 59 H (4-49) U/L Alkaline Phosphatase 131 H (38-126) U/L Total Protein 7.2 (6.3-8.2) g/dL Albumin 4.0 (3.5-5.0) g/dL Current Medications Generic Name Dose Route Start Last Admin Trade Name Freq PRN Reason Stop Dose Admin Albuterol/Ipratropium 3 ml 09/05/20 20:00 09/06/20 12:02 Ipratropium-Albuterol 3 Ml Neb INHALATION 3 ml RT-Q4H SUMMER Administration Amitriptyline HCl 100 mg 09/05/20 21:00 09/05/20 20:26 Amitriptyline Hcl 50 Mg Tab PO 100 mg HS SUMMER Administration Amlodipine Besylate 5 mg 09/06/20 09:00 09/06/20 10:49 Amlodipine 5 Mg Tab PO 5 mg DAILY SUMMER Administration Aspirin 81 mg 09/06/20 09:00 09/06/20 10:48 Aspirin 81 Mg PO 81 mg DAILY SUMMER Administration Atorvastatin Calcium 10 mg 09/05/20 21:00 09/05/20 20:26 Atorvastatin 10 Mg Tab PO 10 mg HS SUMMER Administration Budesonide/Formoterol Fumarate 2 puff 09/05/20 20:00 09/06/20 08:57 Symbicort 160-4.5 Mcg Inhaler INHALATION 2 puff RT-BID SUMMER Administration Cholecalciferol 1,000 unit 09/06/20 09:00 09/06/20 10:49 Cholecalciferol 1,000 Unit Tab PO 1,000 unit DAILY SUMMER Administration Clonazepam 1 mg 09/05/20 21:00 09/06/20 10:48 Clonazepam 1 Mg Tab PO 1 mg BID SUMMER Administration Docusate Sodium 200 mg 09/06/20 09:00 09/06/20 10:48 Docusate 100 Mg Cap PO 200 mg DAILY SUMMER Administration Famotidine 20 mg 09/05/20 17:32 Famotidine 20 Mg Tab PO BID PRN Heartburn Furosemide 40 mg 09/06/20 01:00 09/06/20 10:49 Furosemide 10 Mg/Ml 4 Ml Vial IV 40 mg Q8H SUMMER Administration Hydralazine HCl 10 mg 09/05/20 22:00 09/06/20 10:49 Hydralazine Hcl 10 Mg Tab PO 10 mg TID SUMMER Administration Melatonin 3 mg 09/05/20 21:00 09/05/20 20:26 Melatonin 3 Mg Tablet PO 3 mg HS SUMMER Administration Metoprolol Tartrate 50 mg 09/05/20 21:00 09/06/20 10:49 Metoprolol Tartrate 50 Mg Tab PO 50 mg BID SUMMER Administration Mirtazapine 45 mg 09/05/20 21:00 09/05/20 21:21 Mirtazapine 45 Mg Tablet PO 45 mg HS SUMMER Administration Multivitamins 1 each 09/06/20 09:00 09/06/20 10:49 Multivitamins, Thera 1 Each Tab PO 1 each DAILY SUMMER Administration Polyethylene Glycol 17 gm 09/06/20 09:00 09/06/20 10:48 Polyethylene Glycol 3350 17 Gm Powd.Pack PO 17 gm DAILY SUMMER Administration Spironolactone 25 mg 09/06/20 09:00 09/06/20 10:48 Spironolactone 25 Mg Tab PO 25 mg DAILY SUMMER Administration Tamsulosin HCl 0.4 mg 09/06/20 09:00 09/06/20 10:49 Tamsulosin 0.4 Mg Cap.Er.24h PO 0.4 mg DAILY SUMMER Administration Intake and Output 09/05/20 09/06/20 09/06/20 22:59 06:59 14:59 Output Total 450 Balance -450 Output: Urine 450 Other: Voiding Method Urinal # Voids 1 Weight 61.235 kg 63.2 kg 63.2 kg Patient Weight 09/07/20 05:59 Weight 63.2 kg 09/06/20 07:10 09/06/20 07:10
[2020-09-06] MEDS: carvediloL 12.5 MG TAB PO SCH (16:54)
[2020-09-06] MEDS: ATORVASTATIN 10 MG TAB PO SCH (20:26)
[2020-09-06] MEDS: MELATONIN 3 MG TABLET PO SCH (20:26)
[2020-09-06] MEDS: AMITRIPTYLINE HCL 50 MG TAB PO SCH (20:26)
[2020-09-06] MEDS: MIRTAZAPINE 45 MG TABLET PO SCH (20:26)
--- NOTE | 2020-09-06 23:17 | P.HPIM ---
History of Present Illness H&P Date: 09/06/20 Chief Complaint: Shortness of breath and palpitations Mr. Child is a 70-year-old male with a past medical history of congestive heart failure, chronic kidney disease, COPD, colon cancer, GERD, hypertension, hyperlipidemia, prostate disorder, restless leg coming in with a chief complaint of palpitations and difficulty in breathing going on for the past 5 days. Patient states that he has been having difficulty in breathing which has been going on for the past couple of weeks, but over the past 5 days it has worsened and also that he could feel his heart palpitations. Patient denies having any chest pain. He denies having any cough or fevers. No lower extremity edema. Patient had a hospital admission in June, where he was diagnosed with congestive heart failure, his creatinine was high patient did not get a cardiac cath at that time and advised follow-up as outpatient. But patient states that he did not get the workup done. patient denies having any fevers or chills. No chest discomfort or diaphoresis. No headaches, dizziness or blurred vision. Patient denies having abdominal pain nausea vomiting or diarrhea. He denies having any blood in his s tools. No dysuria or hematuria. No weakness of his extremities. No joint pains or swelling. No tingling or numbness in his extremities. In the ER, patient had a chest x-ray showing chronic changes without acute pulmonary process. On reviewing his labs he has a white count of 8.9, hemoglobin 11.4, platelets 488. Sodium 136, potassium 4.3, chloride 98, bicarbonate 29. BUN is 31 and creatinine is 2.73. He has elevation in troponins at 0.063 and 0.076. He had an EKG showing incomplete left bundle branch block with left ventricular hypertrophy. Review of Systems REVIEW OF SYSTEMS: PSYCH: No anxiety or depression NEURO:No c/o weakness of the extremties, No facial droop, No speech abnormalities. VASCULAR: no edema HEMATOLOGIC: No history of easy bleeding and bruising . No recent infections . RESPIRATORY: No cough, No chest discomfort. INTEGUMENT: no rashes OPHTHALMOLOGIC: No blurry vision and no eye discharge : No dysuria or hematuria CARDIAC: As per HPI MUSCULOSKELETAL : No Aches or pains in the joints or muscles. GI: No abdominal pain, Nausea or vomiting. No constipation or diarrhea. Past Medical History Past Medical History: Cancer, COPD, GERD/Reflux, Hyperlipidemia, Hypertension, Prostate Disorder Additional Past Medical History / Comment(s): cancerous polyp,enlarged p rostate,HEMORRHOIDS, BLOOD IN STOOL, RESTLESS LEG - intermittent, colon Cancer History of Any Multi-Drug Resistant Organisms: None Reported Past Surgical History: Appendectomy, Orthopedic Surgery Additional Past Surgical History / Comment(s): ACL SX RT KNEE X3, LEFT HEEL FUSION, LEFT ARM BICEP SX, NASAL SX R/T ULCER, colon resection, COLONOSCOPY, Past Anesthesia/Blood Transfusion Reactions: No Reported Reaction Past Psychological History: Anxiety, Depression Smoking Status: Former smoker Past Alcohol Use History: None Reported Additional Past Alcohol Use History / Comment(s): STARTED AGE 19, SMOKES 1PPD Past Drug Use History: None Reported - Past Family History Mother Family Medical History: Cancer Additional Family Medical History / Comment(s): BREAST Sister(s) Family Medical History: Deep Vein Thrombosis (DVT) Father Family Medical History: COPD Additional Family Medical History / Comment(s): FROM CARDIAC ARREST Medications and Allergies Home Medications Medication Instructions Recorded Confirmed Type Amitriptyline HCl [Elavil] 100 mg PO HS 06/04/16 09/05/20 History Cholecalciferol [Vitamin D3 (25 1,000 unit PO DAILY 06/04/16 09/05/20 History Mcg = 1000 Iu)] Mirtazapine [Remeron] 45 mg PO HS 06/04/16 09/05/20 History Simvastatin [Zocor] 20 mg PO HS 06/04/16 09/05/20 History Tamsulosin [Flomax] 0.4 mg PO DAILY 06/04/16 09/05/20 History clonazePAM [KlonoPIN] 1 mg PO BID 06/04/16 09/05/20 History Albuterol Inhaler [Ventolin Hfa 1 puff INHALATION RT-QID PRN 06/08/20 09/05/20 History Inhaler] Budesonide/Formoterol Fumarate 2 puff INHALATION RT-BID 06/08/20 09/05/20 History [Symbicort 160-4.5 Mcg Inhaler] Docusate [Colace] 200 mg PO DAILY 06/08/20 09/05/20 History Famotidine [Pepcid] 20 mg PO BID PRN 06/08/20 09/05/20 History Melatonin 3 mg PO HS 06/08/20 09/05/20 History Multivitamins, Thera [Multivitamin 1 tab PO DAILY 06/08/20 09/05/20 History (formulary)] polyethylene glycoL 3350 [Miralax] 17 gm PO DAILY 06/08/20 09/05/20 History Aspirin 81 mg PO DAILY #30 chew 06/13/20 09/05/20 Rx Spironolactone [Aldactone] 25 mg PO DAILY #30 tab 06/13/20 09/05/20 Rx hydrALAZINE HCL [Apresoline] 10 mg PO TID 07/07/20 09/05/20 History Furosemide [Lasix] 60 mg PO BID@0900,1600 #60 tab 07/10/20 09/05/20 Rx amLODIPine [Norvasc] 5 mg PO DAILY #30 tab 07/10/20 09/05/20 Rx Metoprolol Tartrate 50 mg PO BID 09/05/20 09/05/20 History Allergies Allergy/AdvReac Type Severity Reaction Status Date / Time lisinopril Allergy swollen Verified 09/05/20 16:46 testicle,rash morphine AdvReac Nausea & Verified 09/05/20 16:46 Vomiting Physical Exam Vitals: Vital Signs Temp Pulse Pulse Resp BP BP Pulse Ox 09/06/20 16:13 92 09/06/20 16:02 90 09/06/20 12:12 102 H 09/06/20 12:02 102 H 09/06/20 09:12 90 09/06/20 08:58 90 09/06/20 08:00 97.7 F 111 H 18 182/97 94 L 09/06/20 04:03 97 09/06/20 04:00 97.6 F 97 18 139/88 97 09/06/20 03:53 91 09/06/20 00:40 104 H 09/06/20 00:24 100 09/06/20 00:00 97.3 F L 91 18 142/85 96 09/05/20 20:54 112 H 09/05/20 20:46 108 H 09/05/20 20:00 97.3 F L 107 H 20 181/99 93 L 09/05/20 19:00 18 09/05/20 17:15 100 18 159/98 98 Intake and Output 09/06/20 09/06/20 09/06/20 06:59 14:59 22:59 Intake Total 200 Output Total 450 850 Balance -450 -650 Intake: Oral 200 Output: Urine 450 850 Other: # Voids 1 Weight 63.2 kg 63.2 kg Physical EXAM GEN. APPEARANCE: alert, in no apparent distress having his dinner sitting in the bed HEAD EXAM: atraumatic, normocephalic, normal inspection EYE EXAM: No pallor. No icterus. ENT EXAM: mucous membranes moist NECK EXAM: normal inspection. Thyromegaly. RESPIRATORY EXAM: Diminished lung sounds bilaterally. No wheeze or crackles. CARDIOVASCULAR EXAM: S1-S2 heard. No additional sounds. GI/ABDOMINAL EXAM: soft, normal bowel sounds. Nondistended, nontender. No guarding or rigidity. EXTREMITIES EXAM: no tenderness, no pedal edema, no joint swelling,no calf tenderness Clubbing of his fingers NEUROLOGICAL EXAM: alert, oriented X3, O deficits PSYCHIATRIC EXAM: normal affect, normal mood SKIN EXAM: warm, dry, intact, normal color. Absent: rash Results CBC & Chem 7: 09/06/20 07:10 09/06/20 07:10 Labs: Abnormal Lab Results - Last 24 Hours (Table) 09/06/20 09/06/20 09/06/20 Range/Units 00:09 07:10 07:10 RBC 3.90 L (4.30-5.90) m/uL Hgb 11.4 L (13.0-17.5) gm/dL Hct 36.6 L (39.0-53.0) % Plt Count 488 H (150-450) k/uL Sodium 136 L (137-145) mmol/L BUN 31 H (9-20) mg/dL Creatinine 2.73 H (0.66-1.25) mg/dL Glucose 118 H (74-99) mg/dL Magnesium 2.6 H (1.6-2.3) mg/dL Troponin I 0.076 H* (0.000-0.034) ng/mL Thrombosis Risk Factor Assmnt - Choose All That Apply Each Risk Factor Represents 2 Points: Age 61-74 years Thrombosis Risk Factor Assessment Total Risk Factor Score: 2 Thrombosis Risk Factor Assessment Level: Low Risk Assessment and Plan Assessment: ASSESSMENT Elevated troponins Shortness of breath and palpitations Cardiomyopathy ejection fraction of 20-25% Acute on chronic systolic congestive heart failure CK D stage III Hypertension Hyperlipidemia COPD History of colon cancer Specific syndrome Benign prostatic hypertrophy GERD Former smoker PLAN: Patient has elevated troponins in the setting of chronic kidney disease, will get serial troponins and EKGs. Cardiology on board and considering coronary angiography based on the clinical course. Patient has been restarted on home medications. The treatment plan was discussed in detail with the patient at bedside. Further recommendations depending on the progress of the patient.
[2020-09-07] MEDS: IPRATROPIUM-ALBUTEROL 3 ML NEB INHALATION SCH ×5 (02:15→20:45)
[2020-09-07] MEDS: carvediloL 12.5 MG TAB PO SCH ×2 (06:26→17:05)
[2020-09-07 08:01] LABS: Calcium 9.2 mg/dL (8.4-10.2)
[2020-09-07 08:04] LABS: Basophils # (A) 0.1 k/uL (0-0.2); Basophils % (A) 1 %; Eosinophils # (A) 0.4 k/uL (0-0.7); Eosinophils % (A) 5 %; HCT 37.5 % (39.0-53.0); HGB 11.7 gm/dL (13.0-17.5); Hypochromasia Slight; Lymphocytes # (A) 2.3 k/uL (1.0-4.8); Lymphocytes % (A) 27 %; MCH 29.4 pg (25.0-35.0); MCHC 31.2 g/dL (31.0-37.0); MCV 94.2 fL (80.0-100.0); Mean Platelet Volume 6.5; Monocytes # (A) 0.4 k/uL (0-1.0); Monocytes % (A) 4 %; Neutrophils # (A) 5.4 k/uL (1.3-7.7); Neutrophils % (A) 62 %; Platelet Count 476 k/uL (150-450); RBC 3.99 m/uL (4.30-5.90); WBC 8.7 k/uL (3.8-10.6)
[2020-09-07 08:21] LABS: Potassium 3.9 mmol/L (3.5-5.1)
[2020-09-07] MEDS: SYMBICORT 160-4.5 MCG INHALER INHALATION SCH ×2 (08:22→20:45)
[2020-09-07] MEDS ORDERED: ENOXAPARIN 40 MG/0.4 ML SYRINGE SQ SCH (09:00)
[2020-09-07] MEDS: amLODIPine 5 MG TAB PO SCH (09:59)
[2020-09-07] MEDS: DOCUSATE 100 MG CAP PO SCH (09:59)
[2020-09-07] MEDS: TAMSULOSIN 0.4 MG CAP.ER.24H PO SCH (09:59)
[2020-09-07] MEDS: hydrALAZINE HCL 10 MG TAB PO SCH ×3 (10:00→22:44)
[2020-09-07] MEDS: clonazePAM 1 MG TAB PO SCH ×2 (10:00→19:41)
[2020-09-07] MEDS: FUROSEMIDE 40 MG TAB PO SCH (10:00)
[2020-09-07] MEDS: ASPIRIN 81 MG PO SCH (10:00)
[2020-09-07] MEDS: MULTIVITAMINS, THERA 1 EACH TAB PO SCH (10:00)
[2020-09-07] MEDS: polyethylene glycoL 3350 17 GM POWD.PACK PO SCH (10:01)
[2020-09-07] MEDS: CHOLECALCIFEROL 1,000 UNIT TAB PO SCH (10:02)
[2020-09-07] MEDS ORDERED: FAMOTIDINE 20 MG TAB PO PRN (10:52)
--- NOTE | 2020-09-07 13:01 | P.PN ---
Subjective Progress Note Date: 09/07/20 Patient interviewed and examined resting comfortably in bed. He denies any chest pain or chest pressure. He does have some shortness of breath, however feels as though he is doing well at rest. He denies any orthopnea, palpitations, dizziness, or lightheadedness. GENERAL: Well-appearing, well-nourished and in no acute distress. NECK: Supple without JVD or thyromegaly. LUNGS: Breath sounds clear to auscultation bilaterally. Diminished in the bases. Respiration equal and unlabored. No wheezes, rales or rhonchi. HEART: Regular rate and rhythm without murmurs, rubs or gallops. S1 and S2 heard. EXTREMITIES: Normal range of motion, no edema. No clubbing or cyanosis. Peripheral pulses intact and strong. VITALS: Blood pressure 148/87, respiratory rate 20, pulse rate 93, temperature 97.6F, SpO2 95% on 4 L nasal cannula TELEMETRY: Sinus rhythm. No pauses or arrhythmias overnight. LABS: WBC 8.7, hemoglobin 11.7, hematocrit 37.5, platelet 476, sodium 135, potassium 3.9, BUN 36, creatinine 2.73, IMPRESSION: #1 chest discomfort, elevated troponins, cardiorenal versus NSTEMI #2 cardiomyopathy, known EF at 20-25% with global hypokinesis #3 acute on chronic systolic heart failure #4 chronic kidney disease #5 hypertension, improving #6 dyslipidemia #7 valvular heart disease PLAN: Continue current medication regimen. Possible coronary angiography tomorrow with Dr. Cardoso. Nothing by mouth after midnight. Maximize carvedilol for hypertension. Objective - Vital Signs Vital signs: Vital Signs Temp 97.6 F 09/07/20 08:00 Pulse 90 09/07/20 08:35 Resp 20 09/07/20 08:00 BP 148/87 09/07/20 08:00 Pulse Ox 96 09/07/20 08:23 Intake & Output 09/06/20 09/07/20 09/07/20 19:59 06:59 18:59 Intake Total 240 Output Total Balance 240 Weight Intake: Oral 240 Output: Urine Other: Voiding Method # Voids - Labs CBC & Chem 7: 09/07/20 07:23 09/07/20 07:23 Labs: Abnormal Lab Results - Last 24 Hours (Table) 09/07/20 09/07/20 Range/Units 07:23 07:23 RBC 3.99 L (4.30-5.90) m/uL Hgb 11.7 L (13.0-17.5) gm/dL Hct 37.5 L (39.0-53.0) % Plt Count 476 H (150-450) k/uL Sodium 135 L (137-145) mmol/L Chloride 94 L (98-107) mmol/L Carbon Dioxide 31 H (22-30) mmol/L BUN 36 H (9-20) mg/dL Creatinine 2.73 H (0.66-1.25) mg/dL Glucose 109 H (74-99) mg/dL
[2020-09-07] MEDS: MELATONIN 3 MG TABLET PO SCH (19:41)
[2020-09-07] MEDS: AMITRIPTYLINE HCL 50 MG TAB PO SCH (19:41)
[2020-09-07] MEDS: MIRTAZAPINE 45 MG TABLET PO SCH (19:41)
[2020-09-07] MEDS: ATORVASTATIN 10 MG TAB PO SCH (19:41)
--- NOTE | 2020-09-08 00:08 | P.PN ---
Subjective Progress Note Date: 09/07/20 Principal diagnosis: Elevated troponins and CKD Mr. Child is a 70-year-old male with a past medical history of congestive heart failure, chronic kidney disease, COPD, colon cancer, GERD, hypertension, hyperlipidemia, prostate disorder, restless leg coming in with a chief complaint of palpitations and difficulty in breathing going on for the past 5 days. Patient states that he has been having difficulty in breathing which has been going on for the past couple of weeks, but over the past 5 days it has worsened and also that he could feel his heart palpitations. Patient denies having any chest pain. He denies having any cough or fevers. No lower extremity edema. Patient had a hospital admission in June, where he was diagnosed with congestive heart failure, his creatinine was high patient did not get a cardiac cath at that time and advised follow-up as outpatient. But patient states that he did not get the workup done. In the ER, patient had a chest x-ray showing chronic changes without acute pulmonary process. On reviewing his labs he has a white count of 8.9, hemoglobin 11.4, platelets 488. Sodium 136, potassium 4.3, chloride 98, bicarbonate 29. BUN is 31 and creatinine is 2.73. He has elevation in troponins at 0.063 and 0.076. He had an EKG showing incomplete left bundle branch block with left ventricular hypertrophy. On 09/07/2020-patient is comfortably lying in bed appears to be no acute distress. Patient's anxious about cardiac cath that is scheduled for tomorrow morning. Patient denies having any chest pain or palpitations. No cough or difficulty in breathing. He complains of generalized weakness and fatigue. No abdominal pain nausea vomiting or diarrhea. No dysuria or hematuria. On reviewing the patient's vitals afebrile for the past 24 hours heart rate in 90s, respiratory rate 19, blood pressure 138/89, 94% on reviewing the labs patient's white count 8.7 hemoglobin 11.7, platelets 476. Sodium 135, potassium 3.9, chloride 94, bicarb 31, BUN 36, creatinine 2.73. On 3 L of oxygen. Active Medications Albuterol/Ipratropium (Ipratropium-Albuterol 3 Ml Neb) 3 ml INHALATION RT-Q4H [facility] Last Admin: 09/07/20 20:45 Dose: 3 ml Documented by: Amitriptyline HCl (Amitriptyline Hcl 50 Mg Tab) 100 mg PO HS [facility] Last Admin: 09/07/20 19:41 Dose: 100 mg Documented by: Amlodipine Besylate (Amlodipine 5 Mg Tab) 5 mg PO DAILY [facility] Last Admin: 09/07/20 09:59 Dose: 5 mg Documented by: Aspirin (Aspirin 81 Mg) 81 mg PO DAILY [facility] Last Admin: 09/07/20 10:00 Dose: 81 mg Documented by: Atorvastatin Calcium (Atorvastatin 10 Mg Tab) 10 mg PO HS [facility] Last Admin: 09/07/20 19:41 Dose: 10 mg Documented by: Budesonide/Formoterol Fumarate (Symbicort 160-4.5 Mcg Inhaler) 2 puff INHALATION RT-BID [facility] Last Admin: 09/07/20 20:45 Dose: 2 puff Documented by: Carvedilol (Carvedilol 12.5 Mg Tab) 12.5 mg PO BID-W/MEALS [facility] Last Admin: 09/07/20 17:05 Dose: 12.5 mg Documented by: Cholecalciferol (Cholecalciferol 1,000 Unit Tab) 1,000 unit PO DAILY [facility] Last Admin: 09/07/20 10:02 Dose: 1,000 unit Documented by: Clonazepam (Clonazepam 1 Mg Tab) 1 mg PO BID [facility] Last Admin: 09/07/20 19:41 Dose: 1 mg Documented by: Docusate Sodium (Docusate 100 Mg Cap) 200 mg PO DAILY [facility] Last Admin: 09/07/20 09:59 Dose: 200 mg Documented by: Enoxaparin Sodium (Enoxaparin 30 Mg/0.3 Ml Syringe) 30 mg SQ DAILY [facility] Famotidine (Famotidine 20 Mg Tab) 20 mg PO DAILY PRN PRN Reason: Heartburn Furosemide (Furosemide 40 Mg Tab) 40 mg PO DAILY [facility] Last Admin: 09/07/20 10:00 Dose: 40 mg Documented by: Hydralazine HCl (Hydralazine Hcl 10 Mg Tab) 10 mg PO TID [facility] Last Admin: 09/07/20 22:44 Dose: 10 mg Documented by: Melatonin (Melatonin 3 Mg Tablet) 3 mg PO [facility] Last Admin: 09/07/20 19:41 Dose: 3 mg Documented by: Mirtazapine (Mirtazapine 45 Mg Tablet) 45 mg PO [facility] Last Admin: 09/07/20 19:41 Dose: 45 mg Documented by: Multivitamins (Multivitamins, Thera 1 Each Tab) 1 each PO DAILY [facility] Last Admin: 09/07/20 10:00 Dose: 1 each Documented by: Polyethylene Glycol (Polyethylene Glycol 3350 17 Gm Powd.Pack) 17 gm PO DAILY [facility] Last Admin: 09/07/20 10:01 Dose: 17 gm Documented by: Tamsulosin HCl (Tamsulosin 0.4 Mg Cap.Er.24h) 0.4 mg PO DAILY [facility] Last Admin: 09/07/20 09:59 Dose: 0.4 mg Documented by: Objective - Vital Signs Vital signs: Vital Signs Temp 97.6 F 09/07/20 08:00 Pulse 92 09/07/20 16:05 Resp 20 09/07/20 12:00 BP 161/93 09/07/20 12:00 Pulse Ox 99 09/07/20 12:00 Intake & Output 09/06/20 09/07/20 09/07/20 19:59 06:59 18:59 Intake Total 360 Output Total Balance 360 Weight Intake: Oral 360 Output: Urine Other: Voiding Method # Voids 1 - Exam Physical EXAM GEN. APPEARANCE: alert, in no apparent distress RESPIRATORY EXAM: Diminished lung sounds bilaterally. No wheeze or crackles. CARDIOVASCULAR EXAM: S1-S2 heard. No additional sounds. GI/ABDOMINAL EXAM: soft, normal bowel sounds. Nondistended, nontender. No guarding or rigidity. EXTREMITIES EXAM: no tenderness, no pedal edema, no joint swelling,no calf tenderness Clubbing of his fingers NEUROLOGICAL EXAM: alert, oriented X3, NO focal deficits PSYCHIATRIC EXAM: normal affect, normal mood SKIN EXAM:no rash - Labs CBC & Chem 7: 09/07/20 07:23 09/07/20 07:23 Labs: Abnormal Lab Results - Last 24 Hours (Table) 09/07/20 09/07/20 Range/Units 07:23 07:23 RBC 3.99 L (4.30-5.90) m/uL Hgb 11.7 L (13.0-17.5) gm/dL Hct 37.5 L (39.0-53.0) % Plt Count 476 H (150-450) k/uL Sodium 135 L (137-145) mmol/L Chloride 94 L (98-107) mmol/L Carbon Dioxide 31 H (22-30) mmol/L BUN 36 H (9-20) mg/dL Creatinine 2.73 H (0.66-1.25) mg/dL Glucose 109 H (74-99) mg/dL Assessment and Plan Assessment: ASSESSMENT Elevated troponins Shortness of breath and palpitations Cardiomyopathy ejection fraction of 20-25% Acute on chronic systolic congestive heart failure CK D stage III Hypertension Hyperlipidemia COPD History of colon cancer Specific syndrome Benign prostatic hypertrophy GERD Former smoker PLAN: In the setting of chronic kidney disease, he has elevated troponins. Cardiology on board and he is scheduled for coronary angiography tomorrow AM. NPO tonight . Patient has been restarted on home medications. The treatment plan was discussed in detail with the patient at bedside and he is less anxious now. Further recommendations depending on the progress of the patient.
[2020-09-08] MEDS: IPRATROPIUM-ALBUTEROL 3 ML NEB INHALATION SCH ×6 (00:54→21:30)
[2020-09-08] MEDS: carvediloL 12.5 MG TAB PO SCH ×2 (06:49→17:47)
[2020-09-08] MEDS: SYMBICORT 160-4.5 MCG INHALER INHALATION SCH ×2 (08:14→21:30)
[2020-09-08] MEDS ORDERED: ATORVASTATIN 80 MG TAB PO STA (09:28)
[2020-09-08] MEDS ORDERED: ALPRAZolam 0.25 MG TAB PO PRN (09:28)
[2020-09-08] MEDS ORDERED: ALPRAZolam 0.5 MG TAB PO PRN (09:28)
[2020-09-08] MEDS ORDERED: SODIUM CHLORIDE 0.9% 1,000 ML in EMPTY BAG 1 BAG IV ONE (09:28)
[2020-09-08] MEDS ORDERED: ASPIRIN 325 MG TAB PO STA (09:28)
[2020-09-08] MEDS ORDERED: NITROGLYCERIN SL TABS 0.4 MG TAB SUBLINGUAL PRN (09:28)
[2020-09-08] MEDS: FUROSEMIDE 40 MG TAB PO SCH (09:35)
[2020-09-08] MEDS: polyethylene glycoL 3350 17 GM POWD.PACK PO SCH (09:35)
[2020-09-08] MEDS: ENOXAPARIN 30 MG/0.3 ML SYRINGE SQ SCH (09:35)
[2020-09-08] MEDS: hydrALAZINE HCL 10 MG TAB PO SCH ×3 (09:35→20:26)
[2020-09-08] MEDS: ASPIRIN 81 MG PO SCH (09:35)
[2020-09-08] MEDS: amLODIPine 5 MG TAB PO SCH (09:35)
[2020-09-08] MEDS: CHOLECALCIFEROL 1,000 UNIT TAB PO SCH (09:35)
[2020-09-08] MEDS: MULTIVITAMINS, THERA 1 EACH TAB PO SCH (09:35)
[2020-09-08] MEDS: clonazePAM 1 MG TAB PO SCH ×2 (09:35→20:26)
[2020-09-08] MEDS: TAMSULOSIN 0.4 MG CAP.ER.24H PO SCH (09:35)
[2020-09-08] MEDS: DOCUSATE 100 MG CAP PO SCH (09:35)
[2020-09-08] MEDS ORDERED: VERAPAMIL 2.5 MG/ML 2 ML AMP ONE (13:15)
[2020-09-08] MEDS ORDERED: LIDOCAINE 1% INJ 10MG/ML (20 ML MDV) ONE (13:15)
[2020-09-08] MEDS ORDERED: HEPARIN SODIUM 1,000 UN/ML (10ML VL) ONE (13:16)
[2020-09-08] MEDS ORDERED: IV FLUID CONTINUATION 1,000 ML IV ONE (13:18)
[2020-09-08] MEDS ORDERED: MIDAZOLAM 2 MG/2 ML VIAL IV ONE (13:20)
[2020-09-08] MEDS ORDERED: LIDOCAINE 1% INJ 10MG/ML (20 ML MDV) SQ ONE (13:26)
[2020-09-08] MEDS ORDERED: RX INFO: IV CONTRAST WAS GIVEN 1 EACH MISC MISCELLANE PRN (13:37)
[2020-09-08] MEDS ORDERED: IOPAMIDOL-370 125ML BTL INJ ONE (13:39)
[2020-09-08] MEDS ORDERED: SODIUM CHLORIDE 0.9% 1,000 ML IV SCH (13:45)
--- NOTE | 2020-09-08 14:35 | CC ---
CARDIAC CATHETERIZATION REPORT DATE OF SERVICE: 09/08/2020 PERFORMING PHYSICIAN: Rashad Cardoso MD. PROCEDURE PERFORMED: 1. Selective right and left coronary angiogram. 2. Left heart catheterization. INDICATION: This is a 70-year-old gentleman who was diagnosed with cardiomyopathy and also chronic kidney disease, scheduled today to undergo a heart catheterization to rule out severe underlying coronary artery disease. APPROACH: Right common femoral artery. COMPLICATION: None. LEVEL OF SEDATION: Moderate with sedation length of 20 minutes. PROCEDURE DESCRIPTION: After obtaining an informed consent, the patient was brought to the cardiac labourers. The right common femoral artery was cannulated using micropuncture technique. The micropuncture wire passed easily, then I placed a 6-[place] Islander sheath at the right radial artery. After that, I placed a 6-[place] Islander sheath in the right common femoral artery. Selective right and left coronary angiogram performed using JR4 and JL4 catheters. Left heart catheterization was performed using the JR4 catheter which crossed the aortic valve, then I did pullback across the valve. The procedure was completed without any complication. SELECTIVE CORONARY ANGIOGRAM: 1. The right coronary artery is a large caliber vessel. It is a dominant vessel and appeared to be angiographically normal. It distally bifurcates into PDA and PLV branches, both appeared to be angiographically normal. 2. The left main is angiographically normal, it bifurcates into LCX and LAD. 3. The LCX is a large caliber vessel, it is a nondominant vessel. The LCX is angiographically normal and in the proximal portion gives rise into a large OM branch which appeared to be angiographically normal. 4. The ramus intermedius is a large caliber vessel and seems to be angiographically normal. 5. The LAD is a large caliber vessel. The mid LAD has a lesion appeared to be in the range of 30% to 40%. 6. HEMODYNAMICS: The LVEDP was 22 mmHg without significant gradient across the aortic valve. 7. RIGHT ILIAC ANGIOGRAM: Right iliac angiogram was performed in the MILES projection and using a hand injection. There was a lesion involving the external iliac artery appeared to be in the range of 70%. CONCLUSION: 1. Mild to moderate nonobstructive coronary artery disease involving the mid LAD. 2. Elevated LVEDP. 3. Nonischemic cardiomyopathy. 4. Severe disease involving the right external iliac artery. 5. Maximize medical treatment. 6. Risk factor modifications. 7. 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 MMODL / IJN: [id number] /
[2020-09-08] MEDS: ATORVASTATIN 10 MG TAB PO SCH (20:26)
[2020-09-08] MEDS: MIRTAZAPINE 45 MG TABLET PO SCH (20:26)
[2020-09-08] MEDS: AMITRIPTYLINE HCL 50 MG TAB PO SCH (20:26)
[2020-09-08] MEDS: MELATONIN 3 MG TABLET PO SCH (23:20)
[2020-09-09] MEDS: IPRATROPIUM-ALBUTEROL 3 ML NEB INHALATION SCH ×7 (01:09→23:45)
--- NOTE | 2020-09-09 01:34 | P.PN ---
Subjective Progress Note Date: 09/08/20 Principal diagnosis: Elevated troponins and CKD Mr. Child is a 70-year-old male with a past medical history of congestive heart failure, chronic kidney disease, COPD, colon cancer, GERD, hypertension, hyperlipidemia, prostate disorder, restless leg coming in with a chief complaint of palpitations and difficulty in breathing going on for the past 5 days. Patient states that he has been having difficulty in breathing which has been going on for the past couple of weeks, but over the past 5 days it has worsened and also that he could feel his heart palpitations. Patient denies having any chest pain. He denies having any cough or fevers. No lower extremity edema. Patient had a hospital admission in June, where he was diagnosed with congestive heart failure, his creatinine was high patient did not get a cardiac cath at that time and advised follow-up as outpatient. But patient states that he did not get the workup done. In the ER, patient had a chest x-ray showing chronic changes without acute pulmonary process. On reviewing his labs he has a white count of 8.9, hemoglobin 11.4, platelets 488. Sodium 136, potassium 4.3, chloride 98, bicarbonate 29. BUN is 31 and creatinine is 2.73. He has elevation in troponins at 0.063 and 0.076. He had an EKG showing incomplete left bundle branch block with left ventricular hypertrophy. On 09/07/2020-patient is comfortably lying in bed appears to be no acute distress. Patient's anxious about cardiac cath that is scheduled for tomorrow morning. Patient denies having any chest pain or palpitations. No cough or difficulty in breathing. He complains of generalized weakness and fatigue. No abdominal pain nausea vomiting or diarrhea. No dysuria or hematuria. On reviewing the patient's vitals afebrile for the past 24 hours heart rate in 90s, respiratory rate 19, blood pressure 138/89, 94% on reviewing the labs patient's white count 8.7 hemoglobin 11.7, platelets 476. Sodium 135, potassium 3.9, chloride 94, bicarb 31, BUN 36, creatinine 2.73. On 3 L of oxygen. On 09/08/2020 -patient just came back from cardiac catheterization. As per preliminary report no significant stenosis found. Patient states that he is happy with the results. He denies having any chest pain or palpitations. No cough or difficulty breathing. Patient denies having any pain in his right groin. He denies having any abdominal pain, nausea vomiting or diarrhea. No dysuria or hematuria. On reviewing the patient's vitals afebrile, heart rate 91, respiratory rate 18, blood pressure 154/86, saturating at 93% on 2 L of oxygen. Patient labs from this morning show a white count of 8.7, hemoglobin 9.7, platelets 476. Sodium 135, potassium 3.9, chloride 90 BUN 36, creatinine 2.73. Active Medications Albuterol/Ipratropium (Ipratropium-Albuterol 3 Ml Neb) 3 ml INHALATION RT-Q4H [facility] Last Admin: 09/09/20 01:09 Dose: Not Given Documented by: Alprazolam (Alprazolam 0.25 Mg Tab) 0.25 mg PO Q6HR PRN PRN Reason: Mild Anxiety Alprazolam (Alprazolam 0.5 Mg Tab) 0.5 mg PO Q6HR PRN PRN Reason: Moderate Anxiety Amitriptyline HCl (Amitriptyline Hcl 50 Mg Tab) 100 mg PO [facility] Last Admin: 09/08/20 20:26 Dose: 100 mg Documented by: Amlodipine Besylate (Amlodipine 5 Mg Tab) 5 mg PO DAILY [facility] Last Admin: 09/08/20 09:35 Dose: 5 mg Documented by: Aspirin (Aspirin 81 Mg) 81 mg PO DAILY [facility] Last Admin: 09/08/20 09:35 Dose: 81 mg Documented by: Atorvastatin Calcium (Atorvastatin 10 Mg Tab) 10 mg PO [facility] Last Admin: 09/08/20 20:26 Dose: 10 mg Documented by: Budesonide/Formoterol Fumarate (Symbicort 160-4.5 Mcg Inhaler) 2 puff INHALATION RT-BID [facility] Last Admin: 09/08/20 21:30 Dose: 2 puff Documented by: Carvedilol (Carvedilol 12.5 Mg Tab) 12.5 mg PO BID-W/MEALS [facility] Last Admin: 09/08/20 17:47 Dose: 12.5 mg Documented by: Cholecalciferol (Cholecalciferol 1,000 Unit Tab) 1,000 unit PO DAILY [facility] Last Admin: 09/08/20 09:35 Dose: 1,000 unit Documented by: Clonazepam (Clonazepam 1 Mg Tab) 1 mg PO BID [facility] Last Admin: 09/08/20 20:26 Dose: 1 mg Documented by: Docusate Sodium (Docusate 100 Mg Cap) 200 mg PO DAILY [facility] Last Admin: 09/08/20 09:35 Dose: 200 mg Documented by: Enoxaparin Sodium (Enoxaparin 30 Mg/0.3 Ml Syringe) 30 mg SQ DAILY [facility] Last Admin: 09/08/20 09:35 Dose: 30 mg Documented by: Famotidine (Famotidine 20 Mg Tab) 20 mg PO DAILY PRN PRN Reason: Heartburn Furosemide (Furosemide 40 Mg Tab) 40 mg PO DAILY [facility] Last Admin: 09/08/20 09:35 Dose: 40 mg Documented by: Hydralazine HCl (Hydralazine Hcl 10 Mg Tab) 10 mg PO TID [facility] Last Admin: 09/08/20 20:26 Dose: 10 mg Documented by: Melatonin (Melatonin 3 Mg Tablet) 3 mg PO HS [facility] Last Admin: 09/08/20 23:20 Dose: 3 mg Documented by: Mirtazapine (Mirtazapine 45 Mg Tablet) 45 mg PO HS [facility] Last Admin: 09/08/20 20:26 Dose: 45 mg Documented by: Miscellaneous Information (Rx Info: Iv Contrast Was Given 1 Each Misc) 1 each MISCELLANE DAILY PRN PRN Reason: Per Protocol Stop: 09/10/20 13:37 Multivitamins (Multivitamins, Thera 1 Each Tab) 1 each PO DAILY [facility] Last Admin: 09/08/20 09:35 Dose: 1 each Documented by: Nitroglycerin (Nitroglycerin Sl Tabs 0.4 Mg Tab) 0.4 mg SUBLINGUAL Q5M PRN PRN Reason: Chest Pain Polyethylene Glycol (Polyethylene Glycol 3350 17 Gm Powd.Pack) 17 gm PO DAILY [facility] Last Admin: 09/08/20 09:35 Dose: 17 gm Documented by: Tamsulosin HCl (Tamsulosin 0.4 Mg Cap.Er.24h) 0.4 mg PO DAILY [facility] Last Admin: 09/08/20 09:35 Dose: 0.4 mg Documented by: Objective - Vital Signs Vital signs: Vital Signs Temp 97.6 F 09/08/20 08:00 Pulse 81 09/08/20 15:22 Resp 18 09/08/20 15:22 BP 159/88 09/08/20 15:22 Pulse Ox 94 L 09/08/20 15:22 Intake & Output 09/07/20 09/08/20 09/08/20 18:59 06:59 18:59 Intake Total 360 200 Output Total 210 300 Balance 360 -210 -100 Weight 64 kg Intake: IV 200 Oral 360 Output: Urine 210 300 Other: Voiding Method Urinal # Voids 1 1 # Bowel Movements 0 - Exam Physical EXAM GEN. APPEARANCE: alert, in no apparent distress RESPIRATORY EXAM: Diminished lung sounds bilaterally. No wheeze or crackles. CARDIOVASCULAR EXAM: S1-S2 heard. No additional sounds. GI/ABDOMINAL EXAM: soft, normal bowel sounds. Nondistended, nontender. No guarding or rigidity. Right groin - no swelling EXTREMITIES EXAM: no tenderness, no pedal edema, no joint swelling,no calf tenderness Clubbing of his fingers NEUROLOGICAL EXAM: alert, oriented X3, NO focal deficits PSYCHIATRIC EXAM: normal affect, normal mood SKIN EXAM:no rash - Labs CBC & Chem 7: 09/07/20 07:23 09/07/20 07:23 Assessment and Plan Assessment: ASSESSMENT Elevated troponins Shortness of breath and palpitations Cardiomyopathy ejection fraction of 20-25% Acute on chronic systolic congestive heart failure CK D stage III Hypertension Hyperlipidemia COPD History of colon cancer Specific syndrome Benign prostatic hypertrophy GERD Former smoker PLAN: In the setting of chronic kidney disease, he had elevated troponins. S/p coronary angiography done today. Continue with the current regimen aspirin, statin and b macey, and awaiting Cardiology recommendations . Further recommendations depending on the progress of the patient.
[2020-09-09] MEDS: carvediloL 12.5 MG TAB PO SCH ×2 (06:38→18:03)
[2020-09-09] MEDS: SYMBICORT 160-4.5 MCG INHALER INHALATION SCH ×2 (08:39→21:13)
[2020-09-09] MEDS: clonazePAM 1 MG TAB PO SCH ×2 (09:05→20:27)
[2020-09-09] MEDS: ASPIRIN 81 MG PO SCH (09:05)
[2020-09-09] MEDS: CHOLECALCIFEROL 1,000 UNIT TAB PO SCH (09:05)
[2020-09-09] MEDS: FUROSEMIDE 40 MG TAB PO SCH (09:05)
[2020-09-09] MEDS: MULTIVITAMINS, THERA 1 EACH TAB PO SCH (09:05)
[2020-09-09] MEDS: TAMSULOSIN 0.4 MG CAP.ER.24H PO SCH (09:05)
[2020-09-09] MEDS: amLODIPine 5 MG TAB PO SCH (09:05)
[2020-09-09] MEDS: hydrALAZINE HCL 10 MG TAB PO SCH ×3 (09:05→20:27)
[2020-09-09] MEDS: DOCUSATE 100 MG CAP PO SCH (09:05)
[2020-09-09] MEDS: polyethylene glycoL 3350 17 GM POWD.PACK PO SCH (09:06)
[2020-09-09] MEDS: ENOXAPARIN 30 MG/0.3 ML SYRINGE SQ SCH (09:06)
--- NOTE | 2020-09-09 11:56 | P.PN ---
Subjective Progress Note Date: 09/09/20 this is a pleasant 70-year-old gentleman with past medical history significant for chronic renal insufficiency, hypertension, hyperlipidemia, noncompliance, prior history of smoking, COPD,ischemic cardiomyopathy, patient underwent a cardiac catheterization which revealed mild to moderate nonobstr uctive coronary artery disease involving the mid LAD, elevated LVEDP, nonischemic cardio myopathy, severe disease involving the right external iliac artery. 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 The patient was seen and examined this morning, denied any chest discomfort, no palpitations or shortness of breath.blood pressure 130/80 with a heart rate in the 70s to 80s, 98% on 2 L of oxygen.White blood cell count 8.7, hemoglobin 11.7, platelet count 476. Sodium 135, potassium 3.9, BUN 36, creatinine 2.7. Objective - Vital Signs Vital signs: Vital Signs Temp 97.8 F 09/09/20 08:00 Pulse 88 09/09/20 08:50 Resp 18 09/09/20 08:00 BP 130/85 09/09/20 08:00 Pulse Ox 98 09/09/20 08:00 Intake & Output 09/08/20 09/09/20 09/09/20 18:59 06:59 18:59 Intake Total 325 600 240 Output Total 300 525 Balance 25 75 240 Weight 63.6 kg Intake: IV 200 Intake, IV Titration 600 Amount Sodium Chloride 0.9% 1, 600 000 ml @ 75 mls/hr IV . [id number] [facility] Rx#:[id number] Oral 125 240 Output: Urine 300 525 Other: Voiding Method Urinal - Exam PHYSICAL EXAMINATION: GENERAL:70-year-old gentleman in no acute distress at the time of my examination HEENT: Head is atraumatic, normocephalic. Pupils equal, round. Sclera anicteric. Conjunctiva are clear. Mucous membranes of the mouth are moist. Neck is supple. There is no elevated jugular venous pressure.no carotid bruit is heard. HEART EXAMINATION: Heart S1, S2 normal. No murmur or gallop heard. CHEST EXAMINATION: Lungs reveal decreased air exchange with some fine expiratory wheezing. ABDOMEN: Soft, nontender. Bowel sounds are heard. No organomegaly noted]. EXTREMITIES:1+ peripheral pulses with no evidence of peripheral edema and no calf tenderness noted. Right groin soft, no evidence of any hematoma. NEUROLOGIC patient is awake, alert and oriented 3 . - Labs CBC & Chem 7: 09/07/20 07:23 09/07/20 07:23 Assessment and Plan Plan: Assessment and plan #1Chest discomfort with abnormality in troponin, patient underwent a cardiac catheterization which did reveal mild to moderate disease in the left anterior descending artery, medical therapy advised #2 cardiomyopathy, likely nonischemic, ejection fraction 25% #3 acute on chronic systolic congestive heart failure #4 chronic kidney disease #5 hypertension #6 hyperlipidemia #7 noncompliance with medications #8 PAD with evidence of right iliac stenosis Plan From cardiology's perspective, the patient may be able to be discharged home once cleared by primary. We will make him a follow-up appointment to see Dr. Bello in the office post discharge. DNP note has been reviewed, I agree with a documented findings and plan of care. Patient was seen and examined.
--- NOTE | 2020-09-09 15:19 | NM ---
EXAMINATION TYPE: NM pul vent and perfuse DATE OF EXAM: 09/09/2020 COMPARISON: Chest x-ray 09/05/2020, nuclear medicine pulmonary ventilation scan 06/09/2020 HISTORY: Chest pain, difficulty breathing and cough, elevated d-dimer TECHNIQUE: Utilizing inhalation of 67 mCi Tc 99m DTPA aerosol and intravenous injection of 4.7 mCi o f Tc 99m MAA, ventilation and perfusion images are acquired post injection in multiple projections. FINDINGS: Matching subsegmental defect present in the posterior aspect of the right upper lobe on ventilation a nd perfusion imaging is a stable finding. Uptake is essentially otherwise homogenous in stable ventil ation and perfusion scanning IMPRESSION: Low probability for pulmonary embolism.
[2020-09-09] MEDS: AMITRIPTYLINE HCL 50 MG TAB PO SCH (20:27)
[2020-09-09] MEDS: MELATONIN 3 MG TABLET PO SCH (20:27)
[2020-09-09] MEDS: MIRTAZAPINE 45 MG TABLET PO SCH (20:27)
--- NOTE | 2020-09-09 20:30 | P.PN ---
Subjective Mr. Child is a 70-year-old male with a past medical history of congestive heart failure, chronic kidney disease, COPD, colon cancer, GERD, hypertension, hyperlipidemia, prostate disorder, restless leg coming in with a chief complaint of palpitations and difficulty in breathing going on for the past 5 days. Patient states that he has been having difficulty in breathing which has been going on for the past couple of weeks, but over the past 5 days it has worsened and also that he could feel his heart palpitations. Patient denies having any c hest pain. He denies having any cough or fevers. No lower extremity edema. Patient had a hospital admission in June, where he was diagnosed with congestive heart failure, his creatinine was high patient did not get a cardiac cath at that time and advised follow-up as outpatient. This time patient presents with dyspnea and elevated troponin, disease education specialist evaluated the patient, he underwent cardiac cath which shows [id number] LAD disease and patient was diagnosed with nonischemic cardiomyopathy as his ejection fraction was lysed 20-25%. Also patient found to have severe disease of the right external iliac artery with a recommendation for possible intervention with Dr. Cardoso if patient becomes symptomatic with intermittent claudication, currently patient does not have any leg pain. Also he denies any chest pain or dyspnea. Patient feels better and he thinks he can go home. Patient was cleared for discharge by cardiology team. However with exertion found to be hypoxic with oxygen dropping to 84%, field case manager was left for the day so we will wait for tomorrow to obtain home oxygen for the patient, patient also will need nebulizer as he is using it frequently and a prescription is provided. D-dimer is mildly elevated, which is at the same level as before. Ventilation/p erfusion scan showed low problem before PE. No anticoagulation was started for this purpose. vitals are reviewed, possible discharge tomorrow once his home oxygen as provided Objective - Vital Signs Vital signs: Vital Signs Temp 97.6 F 09/09/20 19:28 Pulse 100 09/09/20 19:28 Resp 18 09/09/20 19:28 BP 173/89 09/09/20 19:28 Pulse Ox 94 L 09/09/20 19:28 Intake & Output 09/09/20 09/09/20 09/10/20 06:59 18:59 06:59 Intake Total 600 480 Output Total 525 400 460 Balance 75 80 -460 Weight 63.6 kg Intake: Intake, IV Titration 600 Amount Sodium Chloride 0.9% 1, 600 000 ml @ 75 mls/hr IV . [id number] [facility] Rx#:[id number] Oral 480 Output: Urine 525 400 460 Other: Voiding Method Urinal # Voids 1 - Exam GENERAL: The patient is alert and oriented x3, not in any acute distress. Well developed, well nourished. HEENT: Pupils are round and equally reacting to light. EOMI. No scleral icterus. No conjunctival pallor. Normocephalic, atraumatic. No pharyngeal erythema. No thyromegaly. CARDIOVASCULAR: S1 and S2 present. No murmurs, rubs, or gallops. -PULMONARY: Chest is clear to auscultation, no wheezing. mild Bilateral basal crepitation ABDOMEN: Soft, nontender, nondistended, normoactive bowel sounds. No palpable organomegaly. MUSCULOSKELETAL: No joint swelling or deformity. -EXTREMITIES: No cyanosis, clubbing. mild b/l leg edema NEUROLOGICAL: Gross neurological examination did not reveal any focal deficits. SKIN: No rashes. no petechiae. - Labs CBC & Chem 7: 09/07/20 07:23 09/07/20 07:23 Labs: Abnormal Lab Results - Last 24 Hours (Table) 09/09/20 Range/Units 10:44 D-Dimer 1.16 H (<0.60) mg/L FEU Assessment and Plan Assessment: Nonischemic cardiomyopathy with ejection fraction 20-25%, Acute chronic systolic CHF Acute hypoxic respiratory failure secondary to above. V The/Q scan is low probability for PE Chronic kidney disease, stage III Severe peripheral artery disease of the external iliac artery, asymptomatic currently Plan: This is a pleasant 70 years old male who was evaluated by disease education specialist for nonischemic cardiomyopathy. Cardiology team cleared The patient for discharge however patient will need oxygen upon discharge. retail manager consult Labs and medication were reviewed.. Continue same treatment. Continue with symptomatic treatment. Resume home medication. Monitor lytes and vitals. DVT and GI prophylaxis. Further recommendations as per clinical course of the patient DVT prophylaxis: Subcutaneous heparin GI Prophylaxis: Pepcid PT/OT: Patient states he is walking fine and he declined PT/OT possible discharge tomorrow
[2020-09-09] MEDS ORDERED: ATORVASTATIN 80 MG TAB PO SCH (21:00)
[2020-09-10] MEDS: IPRATROPIUM-ALBUTEROL 3 ML NEB INHALATION SCH ×3 (04:33→12:10)
[2020-09-10] MEDS: carvediloL 12.5 MG TAB PO SCH (06:30)
[2020-09-10] MEDS: CHOLECALCIFEROL 1,000 UNIT TAB PO SCH (08:37)
[2020-09-10] MEDS: hydrALAZINE HCL 10 MG TAB PO SCH (08:37)
[2020-09-10] MEDS: TAMSULOSIN 0.4 MG CAP.ER.24H PO SCH (08:37)
[2020-09-10] MEDS: FUROSEMIDE 40 MG TAB PO SCH (08:37)
[2020-09-10] MEDS: clonazePAM 1 MG TAB PO SCH (08:37)
[2020-09-10] MEDS: ENOXAPARIN 30 MG/0.3 ML SYRINGE SQ SCH (08:37)
[2020-09-10] MEDS: polyethylene glycoL 3350 17 GM POWD.PACK PO SCH (08:37)
[2020-09-10] MEDS: MULTIVITAMINS, THERA 1 EACH TAB PO SCH (08:37)
[2020-09-10] MEDS: amLODIPine 5 MG TAB PO SCH (08:37)
[2020-09-10] MEDS: ASPIRIN 81 MG PO SCH (08:37)
[2020-09-10] MEDS: DOCUSATE 100 MG CAP PO SCH (08:37)
[2020-09-10] MEDS: SYMBICORT 160-4.5 MCG INHALER INHALATION SCH (08:49)
--- NOTE | 2020-09-10 11:57 | P.PN ---
Subjective Progress Note Date: 09/10/20 This is a pleasant 70-year-old gentleman with past medical history significant for chronic renal insufficiency, hypertension, hyperlipidemia, noncompliance, prior history of smoking, COPD,ischemic cardiomyopathy, patient underwent a cardiac catheterization which revealed mild to moderate nonobstr uctive coronary artery disease involving the mid LAD, elevated LVEDP, nonischemic cardio myopathy, severe disease involving the right external iliac artery. The decision was made to maximize medical treatment, if patient is symptomatic in his right leg, in terms of intermittent claudication, patient may require ENVIRONMENTAL COMPLIANCE ENGINEER of the right iliac. The patient was seen and examined this morning, denied any chest discomfort, no palpitations or shortness of breath.blood pressure 130/80 with a heart rate in the 70s to 80s, 98% on 2 L of oxygen.White blood cell count 8.7, hemoglobin 11.7, platelet count 476. Sodium 135, potassium 3.9, BUN 36, creatinine 2.7. 09/10/2020 Patient was seen and examined this morning, denies any chest discomfort, states that he feels anxious like he's breathing fast, he's being evaluated for possible home O2. From cardiology's perspective he can be discharged home. His VQ scan was low probability for pulmonary embolism. Blood pressure 140/90 with a heart rate in the 80s, 94% on 2 L Objective - Vital Signs Vital signs: Vital Signs Temp 97.6 F 09/10/20 08:00 Pulse 84 09/10/20 09:03 Resp 20 09/10/20 11:53 BP 141/96 09/10/20 08:00 Pulse Ox 91 L 09/10/20 11:53 Intake & Output 09/09/20 09/10/20 09/10/20 18:59 06:59 18:59 Intake Total 480 240 Output Total 400 460 Balance 80 -460 240 Weight 63.4 kg Intake: Oral 480 240 Output: Urine 400 460 Other: Voiding Method Urinal # Voids 1 - Exam PHYSICAL EXAMINATION: GENERAL:70-year-old gentleman in no acute distress at the time of my examination HEENT: Head is atraumatic, normocephalic. Pupils equal, round. Sclera anicter ic. Conjunctiva are clear. Mucous membranes of the mouth are moist. Neck is supple. There is no elevated jugular venous pressure.no carotid bruit is heard. HEART EXAMINATION: Heart S1, S2 normal. No murmur or gallop heard. CHEST EXAMINATION: Lungs reveal decreased air exchange with some fine expiratory wheezing. ABDOMEN: Soft, nontender. Bowel sounds are heard. No organomegaly noted]. EXTREMITIES:1+ peripheral pulses with no evidence of peripheral edema and no calf tenderness noted. Right groin soft, no evidence of any hematoma. NEUROLOGIC patient is awake, alert and oriented 3 . - Labs CBC & Chem 7: 09/07/20 07:23 09/07/20 07:23 Labs: Abnormal Lab Results - Last 24 Hours (Table) 09/09/20 Range/Units 10:44 D-Dimer 1.16 H (<0.60) mg/L FEU Assessment and Plan Plan: Assessment and plan #1Chest discomfort with abnormality in troponin, patient underwent a cardiac catheterization which did reveal mild to moderate disease in the left anterior descending artery, medical therapy advised #2 cardiomyopathy, likely nonischemic, ejection fraction 25% #3 acute on chronic systolic congestive heart failure #4 chronic kidney disease #5 hypertension #6 hyperlipidemia #7 noncompliance with medications #8 PAD with evidence of right iliac stenosis Plan From cardiology's perspective, the patient may be able to be discharged home once cleared by primary. We will make him a follow-up appointment to see Dr. Bello in the office post discharge. DNP note has been reviewed, I agree with a documented findings and plan of care. Patient was seen and examined.
[2020-09-10 12:10] VITALS: RESP 18
[2020-09-10 12:11] VITALS: BP 156/78; TEMP 97.9
[2020-09-10 12:23] VITALS: PULSE 80
--- NOTE | 2020-09-10 22:20 | P.DS ---
Providers Date of admission: 09/05/20 17:35 Attending physician: Mingo Simmons MD Consults: 09/05/20 17:31 Consult Physician Routine Consulting Provider: Rashad Cardoso Consult Reason/Comments: CHF, elevated troponin, chronic renal failure Do you want consulting provider notified?: Yes Primary care physician: [facility] Course: Diagnoses: Nonischemic Cardiomyopathy, ejection fraction of 20-25%. Cardiac cath showed mild to moderate disease of the LAD Acute on chronic systolic congestive heart failure severe disease of the right external iliac artery CKD stage III Hypertension Hyperlipidemia COPD History of colon cancer Specific syndrome Benign prostatic hypertrophy GERD Former smoker Hospital course: Mr. Child is a 70-year-old male with a past medical history of congestive heart failure, chronic kidney disease, COPD, colon cancer, GERD, hypertension, hyperlipidemia, prostate disorder, restless leg coming in with a chief complaint of palpitations and difficulty in breathing going on for the past 5 days. Patient states that he has been having difficulty in breathing which has been going on for the past couple of weeks, but over the past 5 days it has worsened and also that he could feel his heart palpitations. Patient denies having any chest pain. He denies having any cough or fevers. No lower extremity edema. Patient had a hospital admission in June, where he was diagnosed with congestive heart failure, his creatinine was high patient did not get a cardiac cath at that time and advised follow-up as outpatient. But patient states that he did not get the workup done. This time because of his elevated troponin ship runner recommended cardiac cath which showed [id number] disease of the LAD, ship runner recommended continue maximizing medical management. Patient to continue with aspirin. D-dimer is also was mildly elevated, VQ scan was low probability for PE Also workup showed he has severe disease of the right external iliac artery, however patient had no leg pain, patient will follow-up with Dr. Cardoso Patient uses Klonopin as home medication for anxiety, he was counselled extensively with risks explained for him, patient still wants to be on Klonopin Eventually patient returned close to his baseline and he was cleared by ship runner for discharge Yesterday there was suspicion of hypoxia. Patient was monitored for another 24 hours, today patient was saturating 94% with exertion, patient does not qualify for home oxygen, however nebulizer prescription is provided for him as patient might need bronchodilator frequently via nebulizer. However on the day of discharge patient denies chest pain, only minimal dyspnea, no abdominal pain or change in urine or bowel habits. No fever. Patient feels he is ready to go home Problems and management plan were discussed with the patient and he verbalized understanding and acceptance Patient was found stable and can be discharged home however he needs follow-up as an outpatient. Patient was instructed to follow up with PCP at the [facility] within one week and patient agrees and agrees with the appointments on 09/24, also he agrees with the appointments made for him with Dr. Bello on 09/23 and states he will follow-up Gen: patient is a AAOx3, no distress CVS: S1-S2, RRR, no murmur Lungs: B/L CTA, no wheezing Abdomen: soft, no distention, no tenderness, positive bowel sounds Extremity: no leg edema or induration Time spent more than 35 minutes Patient Condition at Discharge: Fair Plan - Discharge Summary Discharge Rx Participant: No New Discharge Prescriptions: New carvediloL [Coreg*] 12.5 mg PO BID-W/MEALS #60 tab Furosemide [Lasix] 40 mg PO DAILY #30 tab Nitroglycerin Sl Tabs [Nitrostat] 0.4 mg SUBLINGUAL Q5M PRN #20 tab PRN Reason: Chest Pain Ipratropium-Albuterol Nebulize [Duoneb 0.5 mg-3 mg/3 ml Soln] 3 ml INHALATION RT-Q4H #300 ml Continue clonazePAM [KlonoPIN] 1 mg PO BID Tamsulosin [Flomax] 0.4 mg PO DAILY Simvastatin [Zocor] 20 mg PO HS Mirtazapine [Remeron] 45 mg PO HS Cholecalciferol [Vitamin D3 (25 Mcg = 1000 Iu)] 1,000 unit PO DAILY Amitriptyline HCl [Elavil] 100 mg PO HS polyethylene glycoL 3350 [Miralax] 17 gm PO DAILY Multivitamins, Thera [Multivitamin (formulary)] 1 tab PO DAILY Melatonin 3 mg PO HS Famotidine [Pepcid] 20 mg PO BID PRN PRN Reason: Heartburn Docusate [Colace] 200 mg PO DAILY Budesonide/Formoterol Fumarate [Symbicort 160-4.5 Mcg Inhaler] 2 puff INHALATION RT-BID Albuterol Inhaler [Ventolin Hfa Inhaler] 1 puff INHALATION RT-QID PRN PRN Reason: Shortness Of Breath Aspirin 81 mg PO DAILY #30 chew hydrALAZINE HCL [Apresoline] 10 mg PO TID amLODIPine [Norvasc] 5 mg PO DAILY #30 tab Discontinued Spironolactone [Aldactone] 25 mg PO DAILY #30 tab Furosemide [Lasix] 60 mg PO BID@0900,1600 #60 tab Metoprolol Tartrate 50 mg PO BID Discharge Medication List Amitriptyline HCl [Elavil] 100 mg PO HS 06/04/16 [History] Cholecalciferol [Vitamin D3 (25 Mcg = 1000 Iu)] 1,000 unit PO DAILY 06/04/16 [History] Mirtazapine [Remeron] 45 mg PO HS 06/04/16 [History] Simvastatin [Zocor] 20 mg PO HS 06/04/16 [History] Tamsulosin [Flomax] 0.4 mg PO DAILY 06/04/16 [History] clonazePAM [KlonoPIN] 1 mg PO BID 06/04/16 [History] Albuterol Inhaler [Ventolin Hfa Inhaler] 1 puff INHALATION RT-QID PRN 06/08/20 [History] Budesonide/Formoterol Fumarate [Symbicort 160-4.5 Mcg Inhaler] 2 puff INHALATION RT-BID 06/08/20 [History] Docusate [Colace] 200 mg PO DAILY 06/08/20 [History] Famotidine [Pepcid] 20 mg PO BID PRN 06/08/20 [History] Melatonin 3 mg PO HS 06/08/20 [History] Multivitamins, Thera [Multivitamin (formulary)] 1 tab PO DAILY 06/08/20 [History] polyethylene glycoL 3350 [Miralax] 17 gm PO DAILY 06/08/20 [History] Aspirin 81 mg PO DAILY #30 chew 06/13/20 [Rx] hydrALAZINE HCL [Apresoline] 10 mg PO TID 07/07/20 [History] amLODIPine [Norvasc] 5 mg PO DAILY #30 tab 07/10/20 [Rx] Furosemide [Lasix] 40 mg PO DAILY #30 tab 09/09/20 [Rx] Ipratropium-Albuterol Nebulize [Duoneb 0.5 mg-3 mg/3 ml Soln] 3 ml INHALATION RT-Q4H #300 ml 09/09/20 [Rx] Nitroglycerin Sl Tabs [Nitrostat] 0.4 mg SUBLINGUAL Q5M PRN #20 tab 09/09/20 [Rx] carvediloL [Coreg*] 12.5 mg PO BID-W/MEALS #60 tab 09/09/20 [Rx] Follow up Appointment(s)/Referral(s): Rashad Cardoso MD [STAFF PHYSICIAN] - 09/23/20 1:30 pm [facility] [Primary Care Provider] - 09/24/20 8:00 am Patient Instructions/Handouts: *Surgery [facility] - After Heart Catheterization - Responder Instructions, Heart Failure (DC), COPD (Chronic Obstructive Pulmonary Disease) (DC) Discharge Disposition: HOME WITH HOME HEALTH SERVICES
== END 2020-09-10 14:28 | disposition home or self-care (01) | DRG 286 ==
LOC: EC 15:00 → 3SCARD 17:35
PROVIDERS: ADMIT Internal Medicine; ATTEND Internal Medicine
PROC: B2111ZZ Fluoroscopy of Multiple Coronary Arteries using Low Osmolar Contrast (ICD-10-PCS; 2020-09-08)
PROC: 4A023N7 Measurement of Cardiac Sampling and Pressure, Left Heart, Percutaneous Approach (ICD-10-PCS; principal; 2020-09-08 17:00)
DX: I13.0 Hypertensive heart and chronic kidney disease with heart failure and stage 1 through stage 4 chronic kidney disease, or unspecified chronic kidney disease (principal); I50.23 Acute on chronic systolic (congestive) heart failure; J96.01 Acute respiratory failure with hypoxia; J44.1 Chronic obstructive pulmonary disease with (acute) exacerbation; I42.8 Other cardiomyopathies; N18.30 Chronic kidney disease, stage 3 unspecified; I73.9 Peripheral vascular disease, unspecified; E78.5 Hyperlipidemia, unspecified; K21.9 Gastro-esophageal reflux disease without esophagitis; G25.81 Restless legs syndrome; N40.0 Benign prostatic hyperplasia without lower urinary tract symptoms; K64.9 Unspecified hemorrhoids; F32.9 Major depressive disorder, single episode, unspecified; F41.9 Anxiety disorder, unspecified; I44.7 Left bundle-branch block, unspecified; I08.1 Rheumatic disorders of both mitral and tricuspid valves; I25.10 Atherosclerotic heart disease of native coronary artery without angina pectoris; I70.8 Atherosclerosis of other arteries; R77.8 Other specified abnormalities of plasma proteins; Z71.3 Dietary counseling and surveillance; Z79.899 Other long term (current) drug therapy; Z79.51 Long term (current) use of inhaled steroids; Z79.82 Long term (current) use of aspirin; Z85.038 Personal history of other malignant neoplasm of large intestine; Z91.19 Patient's noncompliance with other medical treatment and regimen; Z90.49 Acquired absence of other specified parts of digestive tract; Z98.890 Other specified postprocedural states; Z98.1 Arthrodesis status; Z91.14 Patient's other noncompliance with medication regimen; Z87.891 Personal history of nicotine dependence; Z88.5 Allergy status to narcotic agent; Z88.8 Allergy status to other drugs, medicaments and biological substances; Z80.9 Family history of malignant neoplasm, unspecified; Z82.49 Family history of ischemic heart disease and other diseases of the circulatory system; Z82.5 Family history of asthma and other chronic lower respiratory diseases; Z82.41 Family history of sudden cardiac death
CPT/HCPCS: 36415; 71046; 78582; 80048; 80053; 82550; 83605; 83735; 83880; 84484; 85025; 85379; 85610; 85730; 93005; 93458; 94640; 94760; 96374; 99285

== ENCOUNTER → 2020-09-18 | Outpatient (CLI) | payer OTHER, MEDICARE ==
[2020-09-18 15:19] LABS: African American GFR (CKD) 21 (>60 ml/min/1.73 sqM); Anion Gap 9 mmol/L; Blood Urea Nitrogen 31 mg/dL (9-20); Calcium 8.9 mg/dL (8.4-10.2); Carbon Dioxide 28 mmol/L (22-30); Chloride 101 mmol/L (98-107); Glucose 129 mg/dL (74-99); Magnesium 2.5 mg/dL (1.6-2.3); Non-African American GFR(CKD) 18 (>60 ml/min/1.73 sqM); Potassium 3.7 mmol/L (3.5-5.1); Sodium 138 mmol/L (137-145)
== END | disposition home or self-care (01) ==
LOC: LABWHC1 14:31
PROVIDERS: ATTEND Nurse Practitioner Adult Health
DX: I10 Essential (primary) hypertension (principal)
CPT/HCPCS: 36415; 80048; 83735

== ENCOUNTER 2020-09-19 15:26 | Inpatient (IN) | payer OTHER, MEDICARE ==
[2020-09-19] MEDS ORDERED: SODIUM CHLORIDE 0.9% 1,000 ML IV STA (16:32)
[2020-09-19] MEDS ORDERED: SODIUM CHLORIDE 0.9% 500 ML 500 ML IV STA (16:57)
--- NOTE | 2020-09-19 17:00 | ED ---
Recheck HPI - General Chief Complaint: Recheck/Abnormal Lab/Rx Stated Complaint: Lab recheck Time Seen by Provider: 09/19/20 16:31 Source: patient, family Mode of arrival: wheelchair Limitations: no limitations - History of Present Illness Initial Comments: Patient is a 70-year-old male with history of heart failure and chronic kidney failure presenting to the emergency department with a chief complaint of abnormal labs. Patient states recently the patient has been fluid overloaded so the sales attendant has decreased his fluid intake and increased his Lasix. Patient reports he had laboratory work obtained yesterday and was contacted from the sales attendant office today regarding his results. Patient states that advised them to come to emergency department due to poor renal function. Patient states he has shortness of breath at baseline. He also is feeling some crackling in his chest. He states he has about 20% ejection fraction. - Related Data Home Medications Medication Instructions Recorded Confirmed Amitriptyline HCl [Elavil] 100 mg PO HS 06/04/16 09/05/20 Cholecalciferol [Vitamin D3 (25 1,000 unit PO DAILY 06/04/16 09/05/20 Mcg = 1000 Iu)] Mirtazapine [Remeron] 45 mg PO HS 06/04/16 09/05/20 Simvastatin [Zocor] 20 mg PO HS 06/04/16 09/05/20 Tamsulosin [Flomax] 0.4 mg PO DAILY 06/04/16 09/05/20 clonazePAM [KlonoPIN] 1 mg PO BID 06/04/16 09/05/20 Albuterol Inhaler [Ventolin Hfa 1 puff INHALATION RT-QID PRN 06/08/20 09/05/20 Inhaler] Budesonide/Formoterol Fumarate 2 puff INHALATION RT-BID 06/08/20 09/05/20 [Symbicort 160-4.5 Mcg Inhaler] Docusate [Colace] 200 mg PO DAILY 06/08/20 09/05/20 Famotidine [Pepcid] 20 mg PO BID PRN 06/08/20 09/05/20 Melatonin 3 mg PO HS 06/08/20 09/05/20 Multivitamins, Thera [Multivitamin 1 tab PO DAILY 06/08/20 09/05/20 (formulary)] polyethylene glycoL 3350 [Miralax] 17 gm PO DAILY 06/08/20 09/05/20 hydrALAZINE HCL [Apresoline] 10 mg PO TID 07/07/20 09/05/20 Previous Rx's Medication Instructions Recorded Aspirin 81 mg PO DAILY #30 chew 06/13/20 amLODIPine [Norvasc] 5 mg PO DAILY #30 tab 07/10/20 Furosemide [Lasix] 40 mg PO DAILY #30 tab 09/09/20 Ipratropium-Albuterol Nebulize 3 ml INHALATION RT-Q4H #300 ml 09/09/20 [Duoneb 0.5 mg-3 mg/3 ml Soln] Nitroglycerin Sl Tabs [Nitrostat] 0.4 mg SUBLINGUAL Q5M PRN #20 tab 09/09/20 carvediloL [Coreg*] 12.5 mg PO BID-W/MEALS #60 tab 09/09/20 Allergies Allergy/AdvReac Type Severity Reaction Status Date / Time lisinopril Allergy swollen Verified 09/19/20 15:37 testicle,rash morphine AdvReac Nausea & Verified 09/19/20 15:37 Vomiting Review of Systems ROS Statement: Those systems with pertinent positive or pertinent negative responses have been documented in the HPI. ROS Other: All systems not noted in ROS Statement are negative. Past Medical History Past Medical History: Cancer, COPD, GERD/Reflux, Hyperlipidemia, Hypertension, Prostate Disorder Additional Past Medical History / Comment(s): cancerous polyp,enlarged prostate,HEMORRHOIDS, BLOOD IN STOOL, RESTLESS LEG - intermittent, colon Cancer History of Any Multi-Drug Resistant Organisms: None Reported Past Surgical History: Appendectomy, Orthopedic Surgery Additional Past Surgical History / Comment(s): ACL SX RT KNEE X3, LEFT HEEL FUSION, LEFT ARM BICEP SX, NASAL SX R/T ULCER, colon resection, COLONOSCOPY, Past Anesthesia/Blood Transfusion Reactions: No Reported Reaction Past Psychological History: Anxiety, Depression Smoking Status: Former smoker Past Alcohol Use History: None Reported Past Drug Use History: None Reported - Past Family History Mother Family Medical History: Cancer Additional Family Medical History / Comment(s): BREAST Sister(s) Family Medical History: Deep Vein Thrombosis (DVT) Father Family Medical History: COPD Additional Family Medical History / Comment(s): FROM CARDIAC ARREST General Exam Limitations: no limitations General appearance: alert, in no apparent distress Head exam: Present: atraumatic, normocephalic Eye exam: Present: normal appearance, PERRL, EOMI Pupils: Present: normal accommodation ENT exam: Present: normal exam, normal oropharynx, mucous membranes moist, TM's normal bilaterally, normal external ear exam Neck exam: Present: normal inspection, full ROM. Absent: tenderness Respiratory exam: Present: rales (Bilateral crackles). Absent: normal lung sounds bilaterally, respiratory distress, wheezes, rhonchi, stridor, chest wall tenderness, accessory muscle use Cardiovascular Exam: Present: regular rate, normal rhythm, normal heart sounds Extremities exam: Present: normal inspection, full ROM, normal capillary refill, other (+2 ulnar and radial bilaterally. +2 dorsalis pedis and posterior tibialis bilaterally). Absent: tenderness, pedal edema, joint swelling, calf te nderness Back exam: Present: normal inspection, full ROM. Absent: tenderness, CVA tenderness (R), CVA tenderness (L) Neurological exam: Present: alert, oriented X3 Psychiatric exam: Present: normal affect, normal mood Skin exam: Present: warm, dry, intact, normal color Course Vital Signs 09/19/20 09/19/20 09/19/20 15:32 17:15 18:30 Temperature 97.9 F Pulse Rate 101 H 80 77 Respiratory 18 22 22 Rate Blood Pressure 124/75 135/83 138/72 O2 Sat by Pulse 96 90 L 92 L Oximetry Medical Decision Making - Medical Decision Making 70-year-old male with history of heart failure and chronic kidney failure presenting to the emergency department with chief complaint of abnormal labs. Physical examination patient does have bilateral rales along with shortness of breath. CMP reveals a poor renal function with BUN of 29 and creatinine of 3.17 which has increased from 2.7 on 09/17/20. Patient states the sales attendant office requested for patient to be admitted. Patient was only given 500 miles of IV bolus. BNP is 64k. Initial troponin negative. EKG showing first-degree AV block. Chest x-ray reveals CHF with bilateral pleural effusion. He will be on 75 ml per hour maintenance IV fluids. This is given 20 mg of Lasix. Patient does not complain of any shortness of breath at this time. Patient will be admitted for further medical management. Case discussed with Admitting is Dr Logan Cardiology on consult - Lab Data Result diagrams: 09/19/20 17:23 09/19/20 17:23 Lab Results 09/19/20 09/19/20 09/19/20 Range/Units 17:23 17:23 17:23 WBC 8.5 (3.8-10.6) k/uL RBC 3.99 L (4.30-5.90) m/uL Hgb 11.7 L (13.0-17.5) gm/dL Hct 36.4 L (39.0-53.0) % MCV 91.4 (80.0-100.0) fL MCH 29.3 (25.0-35.0) pg MCHC 32.0 (31.0-37.0) g/dL RDW 15.3 (11.5-15.5) % Plt Count 442 (150-450) k/uL MPV 6.7 Neutrophils % 67 % Lymphocytes % 20 % Monocytes % 6 % Eosinophils % 4 % Basophils % 1 % Neutrophils # 5.7 (1.3-7.7) k/uL Lymphocytes # 1.7 (1.0-4.8) k/uL Monocytes # 0.5 (0-1.0) k/uL Eosinophils # 0.3 (0-0.7) k/uL Basophils # 0.1 (0-0.2) k/uL Hypochromasia Slight PT 11.4 (9.0-12.0) sec INR 1.1 (<1.2) APTT 26.3 (22.0-30.0) sec Sodium 138 (137-145) mmol/L Potassium 3.8 (3.5-5.1) mmol/L Chloride 101 (98-107) mmol/L Carbon Dioxide 29 (22-30) mmol/L Anion Gap 8 mmol/L BUN 29 H (9-20) mg/dL Creatinine 3.17 H (0.66-1.25) mg/dL Est GFR (CKD-EPI)AfAm 22 (>60 ml/min/1.73 sqM) Est GFR (CKD-EPI)NonAf 19 (>60 ml/min/1.73 sqM) Glucose 118 H (74-99) mg/dL Calcium 9.2 (8.4-10.2) mg/dL Magnesium 2.7 H (1.6-2.3) mg/dL Total Bilirubin 0.7 (0.2-1.3) mg/dL AST 34 (17-59) U/L ALT 104 H (4-49) U/L Alkaline Phosphatase 170 H (38-126) U/L Troponin I (0.000-0.034) ng/mL NT-Pro-B Natriuret Pep pg/mL Total Protein 6.9 (6.3-8.2) g/dL Albumin 4.1 (3.5-5.0) g/dL 09/19/20 09/19/20 Range/Units 17:23 17:23 WBC (3.8-10.6) k/uL RBC (4.30-5.90) m/uL Hgb (13.0-17.5) gm/dL Hct (39.0-53.0) % MCV (80.0-100.0) fL MCH (25.0-35.0) pg MCHC (31.0-37.0) g/dL RDW (11.5-15.5) % Plt Count (150-450) k/uL MPV Neutrophils % % Lymphocytes % % Monocytes % % Eosinophils % % Basophils % % Neutrophils # (1.3-7.7) k/uL Lymphocytes # (1.0-4.8) k/uL Monocytes # (0-1.0) k/uL Eosinophils # (0-0.7) k/uL Basophils # (0-0.2) k/uL Hypochromasia PT (9.0-12.0) sec INR (<1.2) APTT (22.0-30.0) sec Sodium (137-145) mmol/L Potassium (3.5-5.1) mmol/L Chloride (98-107) mmol/L Carbon Dioxide (22-30) mmol/L Anion Gap mmol/L BUN (9-20) mg/dL Creatinine (0.66-1.25) mg/dL Est GFR (CKD-EPI)AfAm (>60 ml/min/1.73 sqM) Est GFR (CKD-EPI)NonAf (>60 ml/min/1.73 sqM) Glucose (74-99) mg/dL Calcium (8.4-10.2) mg/dL Magnesium (1.6-2.3) mg/dL Total Bilirubin (0.2-1.3) mg/dL AST (17-59) U/L ALT (4-49) U/L Alkaline Phosphatase (38-126) U/L Troponin I 0.025 (0.000-0.034) ng/mL NT-Pro-B Natriuret Pep 40572 pg/mL Total Protein (6.3-8.2) g/dL Albumin (3.5-5.0) g/dL - EKG Data EKG Comments: Sinus rhythm with a first degree AV block. ventricular rate 69, TX 212, QRS 112, QTC 480. Disposition Clinical Impression: Shortness of breath, CHF (congestive heart failure) Disposition: ADMITTED IP TO THIS HOSP Condition: Fair Additional Instructions: She'll be admitted Is patient prescribed a controlled substance at d/c from ED?: No Referrals: Nonstaff,Physician [Primary Care Provider] - 1-2 days Time of Disposition: 19:25
[2020-09-19 17:40] LABS: Basophils # (A) 0.1 k/uL (0-0.2); Basophils % (A) 1 %; Eosinophils # (A) 0.3 k/uL (0-0.7); Eosinophils % (A) 4 %; HCT 36.4 % (39.0-53.0); HGB 11.7 gm/dL (13.0-17.5); Hypochromasia Slight; Lymphocytes # (A) 1.7 k/uL (1.0-4.8); Lymphocytes % (A) 20 %; MCH 29.3 pg (25.0-35.0); MCV 91.4 fL (80.0-100.0); Mean Platelet Volume 6.7; Monocytes # (A) 0.5 k/uL (0-1.0); Monocytes % (A) 6 %; Neutrophils # (A) 5.7 k/uL (1.3-7.7); Neutrophils % (A) 67 %; Platelet Count 442 k/uL (150-450); RBC 3.99 m/uL (4.30-5.90); RDW 15.3 % (11.5-15.5); WBC 8.5 k/uL (3.8-10.6)
[2020-09-19 17:52] LABS: Albumin 4.1 g/dL (3.5-5.0); Calcium 9.2 mg/dL (8.4-10.2); Magnesium 2.7 mg/dL (1.6-2.3); Potassium 3.8 mmol/L (3.5-5.1); Total Bilirubin 0.7 mg/dL (0.2-1.3); Total Protein 6.9 g/dL (6.3-8.2)
--- NOTE | 2020-09-19 17:55 | XR ---
EXAMINATION TYPE: XR chest 2V DATE OF EXAM: 09/19/2020 COMPARISON: 09/05/2020 HISTORY: Short of breath TECHNIQUE: FINDINGS: Heart is slightly enlarged. There is pulmonary interstitial edema. There is blunting of the costophrenic angles. Bony thorax is intact. IMPRESSION: Congestive heart failure with pleural effusions that has progressed compared to old exam.
[2020-09-19 17:59] LABS: INR 1.1 (<1.2); Partial Thromboplastin Time 26.3 sec (22.0-30.0); Prothrombin Time 11.4 sec (9.0-12.0)
[2020-09-19] MEDS ORDERED: NALOXONE 0.4 MG/ML 1 ML VIAL IV PRN (18:28)
[2020-09-19] MEDS ORDERED: FUROSEMIDE 10 MG/ML 2 ML VIAL IV ONE (19:23)
[2020-09-19] MEDS ORDERED: NITROGLYCERIN SL TABS 0.4 MG TAB SUBLINGUAL PRN (23:04)
[2020-09-19] MEDS ORDERED: ALBUTEROL NEBULIZED 2.5 MG/3 ML INHALATION PRN (23:04)
[2020-09-19] MEDS ORDERED: FAMOTIDINE 20 MG TAB PO PRN (23:04)
[2020-09-19] MEDS: hydrALAZINE HCL 10 MG TAB PO SCH (23:31)
[2020-09-19] MEDS: carvediloL 12.5 MG TAB PO SCH (23:31)
[2020-09-19] MEDS: MELATONIN 3 MG TABLET PO SCH (23:31)
[2020-09-19] MEDS: AMITRIPTYLINE HCL 50 MG TAB PO SCH (23:32)
[2020-09-19] MEDS: FUROSEMIDE 10 MG/ML 10 ML VIAL IV SCH (23:32)
[2020-09-19] MEDS: MIRTAZAPINE 45 MG TABLET PO SCH (23:32)
[2020-09-19] MEDS: clonazePAM 1 MG TAB PO SCH (23:32)
[2020-09-20] MEDS ORDERED: IPRATROPIUM-ALBUTEROL 3 ML NEB INHALATION SCH
[2020-09-20] MEDS ORDERED: TIOTROPIUM 18 MCG/PUFF INHALER INHALATION PRN (01:14)
--- NOTE | 2020-09-20 02:21 | P.HPIM ---
History of Present Illness H&P Date: 09/19/20 Chief Complaint: abnormal labs , SOB 70-year-old male with nonischemic cardiomyopathy ejection fraction 20%, CK D stage III, COPD, hypertension, hyperlipidemia Patient was discharged from the hospital about 10 days ago when he was admitted for acute CHF exacerbation, this time he comes in due to abnormal labs he was called by his professional model informing him that his renal function has gotten worse his professional model has been trying to help the patient with his worsening sh ortness of breath due to fluid overload and restricting his fluid intake and increasing his Lasix patient reports that he's still having shortness of breath with minimal exertion and sometimes even at rest, he also reports some paroxysmal nocturnal dyspnea but denies any orthopnea as he elevates the head of the bed and sometimes sleeps on his side. Patient does not feel that he got worse since the last discharge however he does not notice any improvement overall. He still feeling easy fatigability and exertional dyspnea with minimal exertion. He claims to be compliant with his medications otherwise he denies any coughing fevers or chills he denies any nausea vomiting or diarrhea and denies any abdominal pain In the ED he was found to have worsening renal function, chest x-ray showed wor sening pleural effusion Review of Systems Pertinent positives as noted in HPI. All other systems were reviewed and are negative Past Medical History Past Medical History: Cancer, COPD, GERD/Reflux, Hyperlipidemia, Hypertension, Prostate Disorder Additional Past Medical History / Comment(s): cancerous polyp,enlarged prostate,HEMORRHOIDS, BLOOD IN STOOL, RESTLESS LEG - intermittent, colon Cancer History of Any Multi-Drug Resistant Organisms: None Reported Past Surgical History: Appendectomy, Orthopedic Surgery Additional Past Surgical History / Comment(s): ACL SX RT KNEE X3, LEFT HEEL FUSION, LEFT ARM BICEP SX, NASAL SX R/T ULCER, colon resection, COLONOSCOPY, Past Anesthesia/Blood Transfusion Reactions: No Reported Reaction Past Psychological History: Anxiety, Depression Smoking Status: Former smoker Past Alcohol Use History: None Reported Additional Past Alcohol Use History / Comment(s): STARTED AGE 19, SMOKES 1PPD Past Drug Use History: None Reported - Past Family History Mother Family Medical History: Cancer Additional Family Medical History / Comment(s): BREAST Sister(s) Family Medical History: Deep Vein Thrombosis (DVT) Father Family Medical History: COPD Additional Family Medical History / Comment(s): FROM CARDIAC ARREST Medications and Allergies Home Medications Medication Instructions Recorded Confirmed Type Amitriptyline HCl [Elavil] 100 mg PO HS 06/04/16 09/19/20 History Cholecalciferol [Vitamin D3 (25 1,000 unit PO DAILY 06/04/16 09/19/20 History Mcg = 1000 Iu)] Mirtazapine [Remeron] 45 mg PO HS 06/04/16 09/19/20 History Simvastatin [Zocor] 20 mg PO HS 06/04/16 09/19/20 History Tamsulosin [Flomax] 0.4 mg PO DAILY 06/04/16 09/19/20 History clonazePAM [KlonoPIN] 1 mg PO BID 06/04/16 09/19/20 History Albuterol Inhaler [Ventolin Hfa 1 puff INHALATION RT-QID PRN 06/08/20 09/19/20 History Inhaler] Budesonide/Formoterol Fumarate 2 puff INHALATION RT-BID 06/08/20 09/19/20 History [Symbicort 160-4.5 Mcg Inhaler] Docusate [Colace] 200 mg PO DAILY 06/08/20 09/19/20 History Famotidine [Pepcid] 20 mg PO BID PRN 06/08/20 09/19/20 History Melatonin 3 mg PO HS 06/08/20 09/19/20 History Multivitamins, Thera [Multivitamin 1 tab PO DAILY 06/08/20 09/19/20 History (formulary)] Aspirin 81 mg PO DAILY #30 chew 06/13/20 09/19/20 Rx hydrALAZINE HCL [Apresoline] 10 mg PO TID 07/07/20 09/19/20 History amLODIPine [Norvasc] 5 mg PO DAILY #30 tab 07/10/20 09/19/20 Rx Furosemide [Lasix] 40 mg PO DAILY #30 tab 09/09/20 09/19/20 Rx Ipratropium-Albuterol Nebulize 3 ml INHALATION RT-Q4H #300 ml 09/09/20 09/19/20 Rx [Duoneb 0.5 mg-3 mg/3 ml Soln] Nitroglycerin Sl Tabs [Nitrostat] 0.4 mg SUBLINGUAL Q5M PRN #20 tab 09/09/20 09/19/20 Rx carvediloL [Coreg*] 12.5 mg PO BID-W/MEALS #60 tab 09/09/20 09/19/20 Rx Metoprolol Tartrate [Lopressor] 50 mg PO BID 09/19/20 09/19/20 History Spironolactone 25 mg PO DAILY 09/19/20 09/19/20 History Allergies Allergy/AdvReac Type Severity Reaction Status Date / Time lisinopril Allergy swollen Verified 09/19/20 21:41 testicle,rash morphine AdvReac Nausea & Verified 09/19/20 21:41 Vomiting Physical Exam Vitals: Vital Signs Temp Pulse Pulse Resp BP BP Pulse Ox 09/19/20 23:01 97.5 F L 67 18 162/62 90 L 09/19/20 22:00 97.5 F L 67 18 162/62 90 L 09/19/20 21:40 97.9 F 81 22 154/92 92 L 09/19/20 19:30 79 22 138/80 92 L 09/19/20 18:30 77 22 138/72 92 L 09/19/20 17:15 80 22 135/83 90 L 09/19/20 15:32 97.9 F 101 H 18 124/75 96 Intake and Output 09/19/20 09/19/20 09/20/20 14:59 22:59 06:59 Intake Total 900 Output Total 400 Balance 500 Intake: Oral 900 Output: Urine 400 Other: Voiding Method Urinal Weight 63.503 kg Constitutional: No acute distress, conversant, pleasant Eyes: Anicteric sclerae, moist conjunctiva, Pupils equal round reactive to light ENMT: NC/AT Oropharynx clear, no erythema, no exudates Neck: Supple, FROM, no masses, or JVD No carotid bruits No thyromegaly Lungs: Good breath sounds with some inspiratory rales at lung basis bilaterally Clear to percussion Normal respiratory effort, no accessory muscle use Cardiovascular: Heart regular in rate and rhythm, No murmurs, gallops, or rubs No peripheral edema Abdominal: Soft Nontender, no guarding, rebound or rigidity Abdomen moving with respiration Normoactive bowel sounds No hepatomegaly, No splenomegaly No palpable mass No abdominal wall hernia noted Skin: Normal temperature, tone, texture, turgor No induration No subcutaneous nodules No rash, lesions No ulcers Extremities: No digital cyanosis No clubbing Pedal pulses intact and symmetrical Radial pulses intact and symmetrical No calf tenderness Psychiatric: Alert and oriented to person, place and time Appropriate affect fair judgement Neuro Muscles Strength 5/5 in all 4 extremities Sensation to light touch grossly present throughout Cranial nerves II-XII grossly intact No focal sensory deficits Lymphatics: no palpable cervical or supraclavicular , or inguinal lymph nodes Results CBC & Chem 7: 09/19/20 17:23 09/19/20 17:23 Labs: Abnormal Lab Results - Last 24 Hours (Table) 09/19/20 09/19/20 Range/Units 17:23 17:23 RBC 3.99 L (4.30-5.90) m/uL Hgb 11.7 L (13.0-17.5) gm/dL Hct 36.4 L (39.0-53.0) % BUN 29 H (9-20) mg/dL Creatinine 3.17 H (0.66-1.25) mg/dL Glucose 118 H (74-99) mg/dL Magnesium 2.7 H (1.6-2.3) mg/dL ALT 104 H (4-49) U/L Alkaline Phosphatase 170 H (38-126) U/L Assessment and Plan Assessment: Exertional dyspnea with worsening pleural effusion Nonischemic cardiomyopathy with left ventricular ejection fraction of 20% [place] and CK D stage III Plan Diuresis with IV Lasix Monitor renal function Monitor urine output Cardiology consult Resume heart medications EKG showed no acute changes compared to prior EKGs Fluid restrictions to 1.5 L daily Daily weight Chronic conditions Restless leg syndrome COPD CK D stage III Colon cancer GERD Hypertension Hyperlipidemia BPH Resume home meds Preformed a thorough record review from recent hospitalization discharged 10 days ago when he was admitted for acute CHF exacerbation CODE STATUS: Full code DVT prophylaxis: Heparin subcu 3 times a day Discussed with: Patient, ER, RN Anticipated length of stay more than [address]: Pending clinical course A total of 75 minutes was spent on the care of this complex patient more than 50% of the time was spent in counseling and care coordination.
[2020-09-20] MEDS: ALBUTEROL HFA INHALER INHALATION SCH ×5 (05:27→20:08)
[2020-09-20] MEDS: carvediloL 12.5 MG TAB PO SCH ×2 (06:33→17:16)
[2020-09-20] MEDS: TAMSULOSIN 0.4 MG CAP.ER.24H PO SCH (08:37)
[2020-09-20] MEDS: ASPIRIN 81 MG PO SCH (08:37)
[2020-09-20] MEDS: hydrALAZINE HCL 10 MG TAB PO SCH ×3 (08:37→20:28)
[2020-09-20] MEDS: DOCUSATE 100 MG CAP PO SCH (08:37)
[2020-09-20] MEDS: clonazePAM 1 MG TAB PO SCH ×2 (08:37→20:27)
[2020-09-20] MEDS: amLODIPine 5 MG TAB PO SCH (08:38)
[2020-09-20] MEDS: HEPARIN SODIUM,PORCINE 5,000 UNIT/ML 1 ML VIAL SQ SCH ×2 (08:38→17:17)
[2020-09-20] MEDS: FUROSEMIDE 10 MG/ML 10 ML VIAL IV SCH ×2 (08:38→20:27)
[2020-09-20 08:48] LABS: Calcium 8.5 mg/dL (8.4-10.2); Potassium 3.4 mmol/L (3.5-5.1)
[2020-09-20] MEDS ORDERED: Potassium Replacement Protocol 1 EACH MISC MISCELLANE PRN ×2 (08:56→10:51)
[2020-09-20] MEDS ORDERED: Magnesium Replacement Protocol 1 EACH MISC MISCELLANE PRN (08:56)
[2020-09-20] MEDS ORDERED: SPIRONOLACTONE 25 MG TAB PO SCH (09:00)
[2020-09-20] MEDS: SYMBICORT 160-4.5 MCG INHALER INHALATION SCH ×2 (09:44→20:08)
[2020-09-20] MEDS: TIOTROPIUM 18 MCG/PUFF INHALER INHALATION PRN (09:45)
[2020-09-20] MEDS: POTASSIUM CHLORIDE ER 20 MEQ TAB.ER PO SCH ×2 (12:20→17:16)
--- NOTE | 2020-09-20 13:31 | P.CRDCN ---
History of Present Illness Consult date: 09/20/20 Chief complaint: Shortness of breath History of present illness: This is a pleasant 70-year-old gentleman who follows with Dr. Bello in the office. He has history of nonischemic cardiomyopathy, chronic kidney disease, hypertension, nicotine dependence, former EtOH abuse, was discharged from the hospital about 10 days ago after being admitted with a heart failure exacerbation. According to the patient, he received a call in the office that some lab tests were abnormal and for this reason he was advised to come to the hospital. He does state that he has not felt well since his discharge from the hospital, in general he is just felt tired, and having mild shortness of breath. His blood pressure on arrival here 134/70 with a heart rate in the 80s, 91% on 2 L of oxygen. Sodium 137, potassium 3.4, BUN 27, creatinine 3.0, yesterday the BUN was 29 and creatinine was 3.1. ALT 104, alk phos 170, troponin 0.025, BNP level 65,200. At the time of my examination, patient states his breathing is stable, overall he feels well. Patient was initiated on IV Lasix on arrival here. He does state that he's been diuresing, however his weight is up from admission. Past Medical History Past Medical History: Cancer, COPD, GERD/Reflux, Hyperlipidemia, Hypertension, Prostate Disorder Additional Past Medical History / Comment(s): cancerous polyp,enlarged prostate,HEMORRHOIDS, BLOOD IN STOOL, RESTLESS LEG - intermittent, colon Cancer History of Any Multi-Drug Resistant Organisms: None Reported Past Surgical History: Appendectomy, Orthopedic Surgery Additional Past Surgical History / Comment(s): ACL SX RT KNEE X3, LEFT HEEL FUSION, LEFT ARM BICEP SX, NASAL SX R/T ULCER, colon resection, COLONOSCOPY, Past Anesthesia/Blood Transfusion Reactions: No Reported Reaction Past Psychological History: Anxiety, Depression Smoking Status: Former smoker Past Alcohol Use History: None Reported Additional Past Alcohol Use History / Comment(s): STARTED AGE 19, SMOKES 1PPD Past Drug Use History: None Reported - Past Family History Mother Family Medical History: Cancer Additional Family Medical History / Comment(s): BREAST Sister(s) Family Medical History: Deep Vein Thrombosis (DVT) Father Family Medical History: COPD Additional Family Medical History / Comment(s): FROM CARDIAC ARREST Medications and Allergies Home Medications Medication Instructions Recorded Confirmed Type Amitriptyline HCl [Elavil] 100 mg PO HS 06/04/16 09/19/20 History Cholecalciferol [Vitamin D3 (25 1,000 unit PO DAILY 06/04/16 09/19/20 History Mcg = 1000 Iu)] Mirtazapine [Remeron] 45 mg PO HS 06/04/16 09/19/20 History Simvastatin [Zocor] 20 mg PO HS 06/04/16 09/19/20 History Tamsulosin [Flomax] 0.4 mg PO DAILY 06/04/16 09/19/20 History clonazePAM [KlonoPIN] 1 mg PO BID 06/04/16 09/19/20 History Albuterol Inhaler [Ventolin Hfa 1 puff INHALATION RT-QID PRN 06/08/20 09/19/20 History Inhaler] Budesonide/Formoterol Fumarate 2 puff INHALATION RT-BID 06/08/20 09/19/20 History [Symbicort 160-4.5 Mcg Inhaler] Docusate [Colace] 200 mg PO DAILY 06/08/20 09/19/20 History Famotidine [Pepcid] 20 mg PO BID PRN 06/08/20 09/19/20 History Melatonin 3 mg PO HS 06/08/20 09/19/20 History Multivitamins, Thera [Multivitamin 1 tab PO DAILY 06/08/20 09/19/20 History (formulary)] Aspirin 81 mg PO DAILY #30 chew 06/13/20 09/19/20 Rx hydrALAZINE HCL [Apresoline] 10 mg PO TID 07/07/20 09/19/20 History amLODIPine [Norvasc] 5 mg PO DAILY #30 tab 07/10/20 09/19/20 Rx Furosemide [Lasix] 40 mg PO DAILY #30 tab 09/09/20 09/19/20 Rx Ipratropium-Albuterol Nebulize 3 ml INHALATION RT-Q4H #300 ml 09/09/20 09/19/20 Rx [Duoneb 0.5 mg-3 mg/3 ml Soln] Nitroglycerin Sl Tabs [Nitrostat] 0.4 mg SUBLINGUAL Q5M PRN #20 tab 09/09/20 09/19/20 Rx carvediloL [Coreg*] 12.5 mg PO BID-W/MEALS #60 tab 09/09/20 09/19/20 Rx Metoprolol Tartrate [Lopressor] 50 mg PO BID 09/19/20 09/19/20 History Spironolactone 25 mg PO DAILY 09/19/20 09/19/20 History Allergies Allergy/AdvReac Type Severity Reaction Status Date / Time lisinopril Allergy swollen Verified 09/19/20 21:41 testicle,rash morphine AdvReac Nausea & Verified 09/19/20 21:41 Vomiting Physical Exam Vitals: Vital Signs Temp Pulse Pulse Resp BP BP Pulse Ox 09/20/20 08:00 98.2 F 80 20 134/75 93 L 09/20/20 04:00 97.7 F 86 20 119/67 91 L 09/19/20 23:01 97.5 F L 67 18 162/62 90 L 09/19/20 22:00 97.5 F L 67 18 162/62 90 L 09/19/20 21:40 97.9 F 81 22 154/92 92 L 09/19/20 19:30 79 22 138/80 92 L 09/19/20 18:30 77 22 138/72 92 L 09/19/20 17:15 80 22 135/83 90 L 09/19/20 15:32 97.9 F 101 H 18 124/75 96 Intake and Output 09/19/20 09/20/20 09/20/20 22:59 06:59 14:59 Intake Total 900 450 360 Output Total 400 550 425 Balance 500 -100 -65 Intake: Oral 900 450 360 Output: Urine 400 550 425 Other: Voiding Method Urinal Weight 63.503 kg 74.5 kg PHYSICAL EXAMINATION: GENERAL: 70-year-old gentleman in no acute distress at the time of my examination HEENT: Head is atraumatic, normocephalic. Pupils equal, round. Sclera anicteric. Conjunctiva are clear. Mucous membranes of the mouth are moist. Neck is supple. There is elevated jugular venous pressure. No carotid bruit is heard. HEART EXAMINATION: Heart S1 and S2 systolic murmur is heard CHEST EXAMINATION: Lungs are clear with mild diminished air entry to the bases. ABDOMEN: Soft, nontender. Bowel sounds are heard. No organomegaly noted. EXTREMITIES: 2+ peripheral pulses with no evidence of peripheral edema and no calf tenderness noted. NEUROLOGIC patient is awake, alert and oriented 3 . Results 09/19/20 17:23 09/20/20 08:16 Cardiac Enzymes 09/19/20 09/19/20 Range/Units 17:23 17:23 AST 34 (17-59) U/L Troponin I 0.025 (0.000-0.034) ng/mL Coagulation 09/19/20 Range/Units 17:23 PT 11.4 (9.0-12.0) sec APTT 26.3 (22.0-30.0) sec CBC 09/19/20 Range/Units 17:23 WBC 8.5 (3.8-10.6) k/uL RBC 3.99 L (4.30-5.90) m/uL Hgb 11.7 L (13.0-17.5) gm/dL Hct 36.4 L (39.0-53.0) % Plt Count 442 (150-450) k/uL Comprehensive Metabolic Panel 09/19/20 09/20/20 Range/Units 17:23 08:16 Sodium 138 137 (137-145) mmol/L Potassium 3.8 3.4 L (3.5-5.1) mmol/L Chloride 101 103 (98-107) mmol/L Carbon Dioxide 29 27 (22-30) mmol/L BUN 29 H 27 H (9-20) mg/dL Creatinine 3.17 H 3.03 H (0.66-1.25) mg/dL Glucose 118 H 94 (74-99) mg/dL Calcium 9.2 8.5 (8.4-10.2) mg/dL AST 34 (17-59) U/L ALT 104 H (4-49) U/L Alkaline Phosphatase 170 H (38-126) U/L Total Protein 6.9 (6.3-8.2) g/dL Albumin 4.1 (3.5-5.0) g/dL Current Medications Generic Name Dose Route Start Last Admin Trade Name Freq PRN Reason Stop Dose Admin Albuterol Sulfate 2 puff 09/20/20 01:13 09/20/20 13:13 Albuterol Hfa Inhaler INHALATION 2 puff RT-Q4H SUMMER Administration Amitriptyline HCl 100 mg 09/19/20 23:15 09/19/20 23:32 Amitriptyline Hcl 50 Mg Tab PO 100 mg HS SUMMER Administration Amlodipine Besylate 5 mg 09/20/20 09:00 09/20/20 08:38 Amlodipine 5 Mg Tab PO 5 mg DAILY SUMMER Administration Aspirin 81 mg 09/20/20 09:00 09/20/20 08:37 Aspirin 81 Mg PO 81 mg DAILY SUMMER Administration Atorvastatin Calcium 20 mg 09/20/20 21:00 Atorvastatin 20 Mg Tab PO HS SUMMER Budesonide/Formoterol Fumarate 2 puff 09/20/20 08:00 09/20/20 09:44 Symbicort 160-4.5 Mcg Inhaler INHALATION 2 puff RT-BID SUMMER Administration Carvedilol 12.5 mg 09/19/20 23:15 09/20/20 06:33 Carvedilol 12.5 Mg Tab PO 12.5 mg BID-W/MEALS SUMMER Administration Clonazepam 1 mg 09/19/20 23:15 09/20/20 08:37 Clonazepam 1 Mg Tab PO 1 mg BID SUMMER Administration Docusate Sodium 200 mg 09/20/20 09:00 09/20/20 08:37 Docusate 100 Mg Cap PO 200 mg DAILY SUMMER Administration Famotidine 20 mg 09/19/20 23:04 Famotidine 20 Mg Tab PO BID PRN Heartburn Furosemide 60 mg 09/19/20 23:30 09/20/20 08:38 Furosemide 10 Mg/Ml 10 Ml Vial IV 60 mg Q12HR SUMMER Administration Heparin Sodium (Porcine) 5,000 unit 09/20/20 08:00 09/20/20 08:38 Heparin Sodium,Porcine 5,000 Unit/Ml 1 Ml Vial SQ 5,000 unit Q8HR SUMMER Administration Hydralazine HCl 10 mg 09/19/20 23:15 09/20/20 08:37 Hydralazine Hcl 10 Mg Tab PO 10 mg TID SUMMER Administration Melatonin 3 mg 09/19/20 23:15 09/19/20 23:31 Melatonin 3 Mg Tablet PO 3 mg HS SUMMER Administration Mirtazapine 45 mg 09/19/20 23:15 09/19/20 23:32 Mirtazapine 45 Mg Tablet PO 45 mg HS SUMMER Administration Miscellaneous Information 1 each 09/20/20 08:56 Potassium Replacement Protocol 1 Each Misc MISCELLANE DAILY PRN Per Protocol Protocol Miscellaneous Information 1 each 09/20/20 08:56 Magnesium Replacement Protocol 1 Each [facility] [place] MISCELLANE DAILY PRN Per Protocol Protocol Miscellaneous Information 1 each 09/20/20 10:51 Potassium Replacement Protocol 1 Each [facility] [place] MISCELLANE DAILY PRN Per Protocol Protocol Naloxone HCl 0.2 mg 09/19/20 18:28 Naloxone 0.4 Mg/Ml 1 Ml Vial IV Q2M PRN Opioid Reversal Nitroglycerin 0.4 mg 09/19/20 23:04 Nitroglycerin Sl Tabs 0.4 Mg Tab SUBLINGUAL Q5M PRN Chest Pain Tamsulosin HCl 0.4 mg 09/20/20 09:00 09/20/20 08:37 Tamsulosin 0.4 Mg Cap.Er.24h PO 0.4 mg DAILY SUMMER Administration Tiotropium [place] 1 puff 09/20/20 01:15 09/20/20 09:45 Tiotropium 18 Mcg/Puff Inhaler INHALATION 1 puff RT-DAILY PRN Administration Shortness Of Breath Intake and Output 09/19/20 09/20/20 09/20/20 22:59 06:59 14:59 Intake Total 900 450 360 Output Total 400 550 425 Balance 500 -100 -65 Intake: Oral 900 450 360 Output: Urine 400 550 425 Other: Voiding Method Urinal Weight 63.503 kg 74.5 kg 09/19/20 17:23 09/20/20 08:16 EKG Interpretations (text) EKG shows sinus rhythm with first-degree AV block, nonspecific ST-T wave changes noted in the anterior lateral leads. Assessment and Plan Plan: Assessment and plan #1 shortness of breath with evidence of a worsening pleural effusion. Element of congestive cardiac failure, systolic acute on chronic #2 nonischemic cardiomyopathy #3 acute on chronic kidney injury #4 COPD #5 history of nicotine dependence #6 history of colon cancer # 7 GERD #8 hypertension #9 hyperlipidemia Plan We will continue current dose of IV Lasix. Continue Coreg. Check daily lytes BUN and creatinine, daily weights. DNP note has been reviewed, I agree with a documented findings and plan of care. Patient was seen and examined.
[2020-09-20 14:15] VITALS: BMI 25.7
--- NOTE | 2020-09-20 15:49 | P.PN ---
Subjective Progress Note Date: 09/20/20 Patient is feeling better today. Shortness of breath is improving. He is diuresing well. Objective - Vital Signs Vital signs: Vital Signs Temp 98.3 F 09/20/20 11:50 Pulse 84 09/20/20 11:50 Resp 20 09/20/20 11:50 BP 134/71 09/20/20 11:50 Pulse Ox 91 L 09/20/20 11:50 Intake & Output 09/19/20 09/20/20 09/20/20 18:59 06:59 18:59 Intake Total 1350 360 Output Total 950 425 Balance 400 -65 Weight 63.503 kg 74.5 kg 74.5 kg Intake: Oral 1350 360 Output: Urine 950 425 Other: Voiding Method Urinal - Exam General: The patient is awake and alert, in no distress Eye: there is normal conjunctiva bilaterally. Neck: The neck is supple, there is no JVD. Cardiovascular: Normal S1-S2, no S3-S4, no murmurs. Respiratory: Lungs clear to auscultation bilaterally Gastrointestinal: Abdomen is soft, nontender Musculoskeletal: There is no pedal edema. Neurological:. Speech is normal. Skin: Skin is warm and dry - Labs CBC & Chem 7: 09/19/20 17:23 09/20/20 08:16 Labs: Abnormal Lab Results - Last 24 Hours (Table) 09/19/20 09/19/20 09/20/20 Range/Units 17:23 17:23 08:16 RBC 3.99 L (4.30-5.90) m/uL Hgb 11.7 L (13.0-17.5) gm/dL Hct 36.4 L (39.0-53.0) % Potassium 3.4 L (3.5-5.1) mmol/L BUN 29 H 27 H (9-20) mg/dL Creatinine 3.17 H 3.03 H (0.66-1.25) mg/dL Glucose 118 H (74-99) mg/dL Magnesium 2.7 H (1.6-2.3) mg/dL ALT 104 H (4-49) U/L Alkaline Phosphatase 170 H (38-126) U/L Assessment and Plan Assessment: This is a 70-year-old male with complex past medical history noted below presented to the emergency room as directed by his home management supervisor for worsening kidney function. Patient was evaluated in the ER and admitted to the hospital for further management of his medical problems noted below. 1. Acute systolic heart failure exacerbation: With significantly elevated BNP and evidence of CHF on chest x-ray. Started on IV Lasix 60 mg twice daily. Monitor I's and O's. Fluid restriction 1.5 L. Daily weights. Consider adding Zaroxolyn to his regimen 2. Acute kidney injury: Most likely cardiorenal. Continue diuresis. 3. Stage IIIB chronic kidney disease, baseline creatinine around 2.7 4. Nonischemic cardiomyopathy left ventricular ejection fraction of 20% 5. Essential hypertension: Blood pressure not well controlled. Continue home regimen and monitor closely. 6. Chronic medical problems: COPD, GERD, essential hypertension, hyperlipidemia, BPH: Continue home medication 7. DVT prophylaxis with subcu heparin
[2020-09-20] MEDS ORDERED: ALPRAZolam 0.5 MG TAB PO STA (18:30)
[2020-09-20] MEDS: MIRTAZAPINE 45 MG TABLET PO SCH (20:27)
[2020-09-20] MEDS: MELATONIN 3 MG TABLET PO SCH (20:27)
[2020-09-20] MEDS: ATORVASTATIN 20 MG TAB PO SCH (20:27)
[2020-09-20] MEDS: AMITRIPTYLINE HCL 50 MG TAB PO SCH (20:28)
--- NOTE | 2020-09-20 21:56 | XR ---
EXAMINATION TYPE: XR chest 1V portable DATE OF EXAM: 09/20/2020 COMPARISON: Yesterday HISTORY: Short of breath TECHNIQUE: FINDINGS: There is pulmonary interstitial edema. Heart is slightly enlarged. There is mild blunting o f the costophrenic angles. There are no hilar masses. Mediastinum is normal. IMPRESSION: Pulmonary interstitial edema and pleural fluid. Edema slightly worse than yesterday. This could be congestive heart failure.
[2020-09-21] MEDS: HEPARIN SODIUM,PORCINE 5,000 UNIT/ML 1 ML VIAL SQ SCH ×4 (00:20→23:43)
[2020-09-21] MEDS: ALBUTEROL HFA INHALER INHALATION SCH ×6 (03:56→20:14)
[2020-09-21] MEDS: carvediloL 12.5 MG TAB PO SCH ×2 (06:34→17:13)
[2020-09-21] MEDS: amLODIPine 5 MG TAB PO SCH (08:29)
[2020-09-21] MEDS: TAMSULOSIN 0.4 MG CAP.ER.24H PO SCH (08:29)
[2020-09-21] MEDS: DOCUSATE 100 MG CAP PO SCH (08:29)
[2020-09-21] MEDS: clonazePAM 1 MG TAB PO SCH ×2 (08:29→20:19)
[2020-09-21] MEDS: FUROSEMIDE 10 MG/ML 10 ML VIAL IV SCH ×2 (08:29→20:19)
[2020-09-21] MEDS: hydrALAZINE HCL 10 MG TAB PO SCH ×3 (08:29→20:19)
[2020-09-21] MEDS: ASPIRIN 81 MG PO SCH (08:29)
[2020-09-21 08:37] LABS: Calcium 9.1 mg/dL (8.4-10.2); Magnesium 2.3 mg/dL (1.6-2.3); Potassium 3.8 mmol/L (3.5-5.1)
--- NOTE | 2020-09-21 10:48 | P.PN ---
Subjective Progress Note Date: 09/21/20 This is a pleasant 70-year-old gentleman who follows with Dr. Bello in the office. He has history of nonischemic cardiomyopathy, chronic kidney disease, hypertension, nicotine dependence, former EtOH abuse, was discharged from the hospital about 10 days ago after being admitted with a heart failure exacerbation. According to the patient, he received a call in the office that some lab tests were abnormal and for this reason he was advised to come to the hospital. He does state that he has not felt well since his discharge from the hospital, in general he is just felt tired, and having mild shortness of breath. His blood pressure on arrival here 134/70 with a heart rate in the 80s, 91% on 2 L of oxygen. Sodium 137, potassium 3.4, BUN 27, creatinine 3.0, yesterday the BUN was 29 and creatinine was 3.1. ALT 104, alk phos 170, troponin 0.025, BNP level 65,200. At the time of my examination, patient states his breathing is stable, overall he feels well. Patient was initiated on IV Lasix on arrival here. He does state that he's been diuresing, however his weight is up from admission. 09/21/2020 Patient seen and examined this morning, weight is down 1 kg today. Blood press ure 146/80 with a heart rate in the 80s, 92% on 3 L of oxygen. Sodium 138, potassium 3.8, BUN 26, creatinine 2.9. Objective - Vital Signs Vital signs: Vital Signs Temp 97.6 F 09/21/20 04:00 Pulse 88 09/21/20 04:00 Resp 20 09/21/20 05:11 BP 147/84 09/21/20 04:00 Pulse Ox 92 L 09/21/20 05:11 Intake & Output 09/20/20 09/21/20 09/21/20 18:59 06:59 18:59 Intake Total 540 0 180 Output Total 425 450 Balance 115 -450 180 Weight 74.5 kg 73 kg Intake: Oral 540 0 180 Output: Urine 425 450 Other: Voiding Method Urinal # Voids 2 1 - Exam PHYSICAL EXAMINATION: GENERAL: 70-year-old gentleman in no acute distress at the time of my examination HEENT: Head is atraumatic, normocephalic. Pupils equal, round. Sclera a nicteric. Conjunctiva are clear. Mucous membranes of the mouth are moist. Neck is supple. There is elevated jugular venous pressure. No carotid bruit is heard. HEART EXAMINATION: Heart S1 and S2 systolic murmur is heard CHEST EXAMINATION: Lungs are clear with mild diminished air entry to the bases. ABDOMEN: Soft, nontender. Bowel sounds are heard. No organomegaly noted. EXTREMITIES: 2+ peripheral pulses with no evidence of peripheral edema and no calf tenderness noted. NEUROLOGIC patient is awake, alert and oriented 3 - Labs CBC & Chem 7: 09/19/20 17:23 09/21/20 07:50 Labs: Abnormal Lab Results - Last 24 Hours (Table) 09/21/20 Range/Units 07:50 BUN 26 H (9-20) mg/dL Creatinine 2.93 H (0.66-1.25) mg/dL Glucose 117 H (74-99) mg/dL Assessment and Plan Plan: Assessment and plan #1 shortness of breath with evidence of a worsening pleural effusion. Element of congestive cardiac failure, systolic acute on chronic #2 nonischemic cardiomyopathy #3 acute on chronic kidney injury #4 COPD #5 history of nicotine dependence #6 history of colon cancer # 7 GERD #8 hypertension #9 hyperlipidemia Plan We will continue current dose of IV Lasix. Continue Coreg. Check daily lytes BUN and creatinine, daily weights. DNP note has been reviewed, I agree with a documented findings and plan of care. Patient was seen and examined.
[2020-09-21] MEDS: SYMBICORT 160-4.5 MCG INHALER INHALATION SCH ×2 (12:00→20:15)
[2020-09-21] MEDS: TIOTROPIUM 18 MCG/PUFF INHALER INHALATION PRN (12:00)
--- NOTE | 2020-09-21 13:40 | P.PN ---
Subjective Progress Note Date: 09/21/20 Patient is feeling better today. He was more hypoxic last night requiring BiPAP. He is currently on 3 L of oxygen via nasal cannula. He is not on oxygen at home. Objective - Vital Signs Vital signs: Vital Signs Temp 97.8 F 09/21/20 11:58 Pulse 90 09/21/20 11:58 Resp 20 09/21/20 11:58 BP 133/84 09/21/20 11:58 Pulse Ox 92 L 09/21/20 11:58 Intake & Output 09/20/20 09/21/20 09/21/20 18:59 06:59 18:59 Intake Total 540 0 180 Output Total 425 450 250 Balance 115 -450 -70 Weight 74.5 kg 73 kg Intake: Oral 540 0 180 Output: Urine 425 450 250 Other: Voiding Method Urinal # Voids 2 1 - Exam General: The patient is awake and alert, in no distress Eye: there is normal conjunctiva bilaterally. Neck: The neck is supple, there is no JVD. Cardiovascular: Normal S1-S2, no S3-S4, no murmurs. Respiratory: Lungs with bibasilar crackles Gastrointestinal: Abdomen is soft, nontender Musculoskeletal: There is no pedal edema. Neurological:. Speech is normal. Skin: Skin is warm and dry - Labs CBC & Chem 7: 09/19/20 17:23 09/21/20 07:50 Labs: Abnormal Lab Results - Last 24 Hours (Table) 09/21/20 Range/Units 07:50 BUN 26 H (9-20) mg/dL Creatinine 2.93 H (0.66-1.25) mg/dL Glucose 117 H (74-99) mg/dL Assessment and Plan Assessment: This is a 70-year-old male with complex past medical history noted below presented to the emergency room as directed by his fisher mussel for worsening kidney function. Patient was evaluated in the ER and admitted to the hospital for further management of his medical problems noted below. 1. Acute systolic heart failure exacerbation: With significantly elevated BNP and evidence of CHF on chest x-ray. Started on IV Lasix 60 mg twice daily. Monitor I's and O's. Fluid restriction 1.5 L. Daily weights. Consider adding Zaroxolyn to his regimen 2. Acute kidney injury: Most likely cardiorenal. Continue diuresis. 3. Acute hypoxic respiratory failure secondary to pulmonary edema. Wean off O2 as tolerated for O2 sat greater than 90% 4. Stage IIIB chronic kidney disease, baseline creatinine around 2.7 5. Nonischemic cardiomyopathy left ventricular ejection fraction of 20% 6. Essential hypertension: Blood pressure not well controlled. Continue home regimen and monitor closely. 7. Chronic medical problems: COPD, GERD, essential hypertension, hyperlipidemia, BPH: Continue home medication 8. DVT prophylaxis with subcu heparin
[2020-09-21] MEDS: ATORVASTATIN 20 MG TAB PO SCH (20:19)
[2020-09-21] MEDS: MELATONIN 3 MG TABLET PO SCH (20:19)
[2020-09-21] MEDS: AMITRIPTYLINE HCL 50 MG TAB PO SCH (20:19)
[2020-09-21] MEDS: MIRTAZAPINE 45 MG TABLET PO SCH (20:19)
[2020-09-22] MEDS: ALBUTEROL HFA INHALER INHALATION SCH ×6 (00:12→21:13)
[2020-09-22] MEDS: carvediloL 12.5 MG TAB PO SCH ×2 (06:33→16:57)
[2020-09-22] MEDS: ASPIRIN 81 MG PO SCH (08:18)
[2020-09-22] MEDS: amLODIPine 5 MG TAB PO SCH (08:18)
[2020-09-22] MEDS: hydrALAZINE HCL 10 MG TAB PO SCH (08:19)
[2020-09-22] MEDS: TAMSULOSIN 0.4 MG CAP.ER.24H PO SCH (08:19)
[2020-09-22] MEDS: clonazePAM 1 MG TAB PO SCH ×2 (08:19→22:18)
[2020-09-22] MEDS: FUROSEMIDE 10 MG/ML 10 ML VIAL IV SCH ×2 (08:19→22:18)
[2020-09-22] MEDS: DOCUSATE 100 MG CAP PO SCH (08:19)
[2020-09-22] MEDS: HEPARIN SODIUM,PORCINE 5,000 UNIT/ML 1 ML VIAL SQ SCH ×3 (08:20→23:04)
--- NOTE | 2020-09-22 08:20 | XR ---
EXAMINATION TYPE: XR chest 1V portable DATE OF EXAM: 09/22/2020 COMPARISON: Chest x-ray 09/10/2020 HISTORY: Heart failure TECHNIQUE: Single frontal view of the chest is obtained. FINDINGS: Interstitium is increased. Heart size is stable. No evident pneumothorax. No sizable effus ion. Question some bilateral groundglass opacity within the lungs. IMPRESSION: Correlate for possible interstitial edema.
[2020-09-22 08:34] LABS: Calcium 9.1 mg/dL (8.4-10.2); Potassium 3.7 mmol/L (3.5-5.1)
[2020-09-22] MEDS: SYMBICORT 160-4.5 MCG INHALER INHALATION SCH ×2 (09:52→21:13)
[2020-09-22] MEDS: TIOTROPIUM 18 MCG/PUFF INHALER INHALATION PRN (09:54)
[2020-09-22] MEDS: ISOSORBIDE MONONITRATE ER 30 MG TAB.ER.24H PO SCH (11:02)
--- NOTE | 2020-09-22 12:58 | P.PN ---
Subjective Progress Note Date: 09/22/20 HISTORY OF PRESENT ILLNESS: Patient examined this morning at the bedside. Patient denies chest pain or pressure. He denies shortness of breath. He remains on IV Lasix 60 mg every 12 hours. Creatinine 2.93 today. Fluid balance over the last 24 hours as approximately -1500 mL. PHYSICAL EXAM: VITAL SIGNS: Reviewed. GENERAL: Well-developed in no acute distress. NECK: Supple. No JVD or thyromegaly LUNGS: Respirations even and unlabored. Lungs diminished HEART: Regular rate and rhythm. S1 and S2 heard. EXTREMITIES: Normal range of motion. No clubbing or cyanosis. Peripheral pulses intact. No lower extremity edema ASSESSMENT: Acute exacerbation of chronic systolic congestive heart failure Nonischemic cardiomyopathy, EF 20-25% Acute on chronic kidney disease COPD Hypertension Hyperlipidemia History of nicotine dependence History of alcohol abuse PLAN: Continue IV Lasix for another 24 hours. Anticipate transitioning to oral dosing tomorrow Monitor kidney function Daily weights Accurate I&O Repeat BNP tomorrow Discontinue Norvasc secondary to cardiomyopathy Increase hydralazine to 50 mg 3 times a day. Add Imdur 30 mg daily. Nurse practitioner note has been reviewed by physician. Signing provider agrees with the documented findings, assessment, and plan of care. Objective - Vital Signs Vital signs: Vital Signs Temp 97.6 F 09/22/20 08:00 Pulse 91 09/22/20 11:56 Resp 16 09/22/20 11:56 BP 138/74 09/22/20 10:59 Pulse Ox 96 09/22/20 10:59 Intake & Output 09/21/20 09/22/20 09/22/20 18:59 06:59 18:59 Intake Total 540 400 Output Total 700 1325 Balance -160 -1325 400 Weight 72 kg Intake: Oral 540 400 Output: Urine 700 1325 Other: Voiding Method Urinal # Voids 1 1 # Bowel Movements 2 - Labs CBC & Chem 7: 09/19/20 17:23 09/22/20 07:37 Labs: Abnormal Lab Results - Last 24 Hours (Table) 09/22/20 Range/Units 07:37 BUN 30 H (9-20) mg/dL Creatinine 2.93 H (0.66-1.25) mg/dL
--- NOTE | 2020-09-22 13:51 | P.PN ---
Subjective Progress Note Date: 09/22/20 Patient is doing well today. He denies any shortness of breath. He still requiring 3 L of oxygen via nasal cannula and satting 90%. He is diuresing well. Objective - Vital Signs Vital signs: Vital Signs Temp 97.6 F 09/22/20 08:00 Pulse 91 09/22/20 11:56 Resp 16 09/22/20 11:56 BP 138/74 09/22/20 10:59 Pulse Ox 96 09/22/20 10:59 Intake & Output 09/21/20 09/22/20 09/22/20 18:59 06:59 18:59 Intake Total 540 400 Output Total 700 1325 Balance -160 -1325 400 Weight 72 kg Intake: Oral 540 400 Output: Urine 700 1325 Other: Voiding Method Urinal # Voids 1 1 1 # Bowel Movements 2 - Exam General: The patient is awake and alert, in no distress Eye: there is normal conjunctiva bilaterally. Neck: The neck is supple, there is no JVD. Cardiovascular: Normal S1-S2, no S3-S4, no murmurs. Respiratory: Lungs with scattered bibasilar crackles Gastrointestinal: Abdomen is soft, nontender Musculoskeletal: There is no pedal edema. Neurological:. Speech is normal. Skin: Skin is warm and dry - Labs CBC & Chem 7: 09/19/20 17:23 09/22/20 07:37 Labs: Abnormal Lab Results - Last 24 Hours (Table) 09/22/20 Range/Units 07:37 BUN 30 H (9-20) mg/dL Creatinine 2.93 H (0.66-1.25) mg/dL Assessment and Plan Assessment: This is a 70-year-old male with complex past medical history noted below presented to the emergency room as directed by his upholstery bundler for worsening kidney function. Patient was evaluated in the ER and admitted to the hospital for further management of his medical problems noted below. 1. Acute systolic heart failure exacerbation: With significantly elevated BNP and evidence of CHF on chest x-ray. Started on IV Lasix 60 mg twice daily. Monitor I's and O's. Fluid restriction 1.5 L. Daily weights. Zaroxolyn 2.5 mg daily added to his regimen 2. Acute kidney injury: Most likely cardiorenal. Continue diuresis. 3. Acute hypoxic respiratory failure secondary to pulmonary edema. Wean off O2 as tolerated for O2 sat greater than 90% 4. Stage IIIB chronic kidney disease, baseline creatinine around 2.7 5. Nonischemic cardiomyopathy left ventricular ejection fraction of 20% 6. Essential hypertension: Blood pressure not well controlled. Continue home regimen and monitor closely. 7. Chronic medical problems: COPD, GERD, essential hypertension, hyperlipidemia, BPH: Continue home medication 8. DVT prophylaxis with subcu heparin Today, I reviewed his medication list and lab work results. Repeat chest x-ray this morning showed persistent interstitial edema. I would add Zaroxolyn to his regimen and continue IV Lasix. Repeat lab work in the morning.
[2020-09-22] MEDS ORDERED: FAMOTIDINE 20 MG TAB PO PRN (14:35)
[2020-09-22] MEDS: hydrALAZINE HCL 50 MG TAB PO SCH ×2 (15:33→22:18)
[2020-09-22] MEDS: metOLazone 2.5 MG TAB PO SCH (15:33)
[2020-09-22] MEDS: MIRTAZAPINE 45 MG TABLET PO SCH (22:17)
[2020-09-22] MEDS: AMITRIPTYLINE HCL 50 MG TAB PO SCH (22:18)
[2020-09-22] MEDS: MELATONIN 3 MG TABLET PO SCH (22:19)
[2020-09-22] MEDS: ATORVASTATIN 20 MG TAB PO SCH (22:19)
[2020-09-23] MEDS: ALBUTEROL HFA INHALER INHALATION SCH ×4 (00:07→11:09)
[2020-09-23] MEDS: carvediloL 12.5 MG TAB PO SCH (06:23)
[2020-09-23] MEDS: SYMBICORT 160-4.5 MCG INHALER INHALATION SCH (07:44)
[2020-09-23] MEDS: TIOTROPIUM 18 MCG/PUFF INHALER INHALATION PRN (07:44)
[2020-09-23 09:05] LABS: Calcium 9.6 mg/dL (8.4-10.2); Magnesium 2.4 mg/dL (1.6-2.3); Potassium 3.1 mmol/L (3.5-5.1)
[2020-09-23] MEDS: HEPARIN SODIUM,PORCINE 5,000 UNIT/ML 1 ML VIAL SQ SCH (09:11)
[2020-09-23] MEDS: clonazePAM 1 MG TAB PO SCH (09:12)
[2020-09-23] MEDS: ASPIRIN 81 MG PO SCH (09:12)
[2020-09-23] MEDS: FUROSEMIDE 10 MG/ML 10 ML VIAL IV SCH (09:13)
[2020-09-23] MEDS: DOCUSATE 100 MG CAP PO SCH (09:13)
[2020-09-23] MEDS: hydrALAZINE HCL 50 MG TAB PO SCH (09:14)
[2020-09-23] MEDS: metOLazone 2.5 MG TAB PO SCH (09:15)
[2020-09-23] MEDS: ISOSORBIDE MONONITRATE ER 30 MG TAB.ER.24H PO SCH (09:15)
[2020-09-23] MEDS: TAMSULOSIN 0.4 MG CAP.ER.24H PO SCH (09:16)
[2020-09-23] MEDS ORDERED: POTASSIUM CHLORIDE ER 20 MEQ TAB.ER PO STA (10:00)
[2020-09-23] MEDS ORDERED: POTASSIUM CHLORIDE 20 MEQ in WATER FOR INJECTION 1 100ML.BAG IVPB STA (10:00)
--- NOTE | 2020-09-23 10:12 | P.DS ---
Providers Date of admission: 09/22/20 07:31 Expected date of discharge: 09/23/20 Attending physician: Rebekah Logan MD Consults: 09/19/20 18:30 Consult Physician Stat Consulting Provider: Rashad Cardoso Consult Reason/Comments: CHF Do you want consulting provider notified?: Yes Primary care physician: Physician Nonstaff Hospital Course: This is a 70-year-old male with complex past medical history noted below presented to the emergency room as directed by his director [employer] for worsening kidney function. Patient was evaluated in the ER and admitted to the hospital for further management of his medical problems noted below. 1. Acute systolic heart failure exacerbation: With significantly elevated BNP and evidence of CHF on chest x-ray. Started on IV Lasix 60 mg twice daily. Improved significantly. Patient appears euvolemic. Lasix changed to 60 mg twice daily. Zaroxolyn 2.5 mg daily added to his regimen. 2. Acute kidney injury: Most likely cardiorenal. Creatinine at baseline around 3 on the day of discharge. 3. Acute on chronic hypoxic respiratory failure secondary to pulmonary edema. 4. Stage IIIB chronic kidney disease, baseline creatinine around 3 5. Nonischemic cardiomyopathy left ventricular ejection fraction of 20% 6. Essential hypertension: Blood pressure better controlled. Regimen adjusted during this admission.. 7. Chronic medical problems: COPD, GERD, essential hypertension, hyperlipidemia, BPH: Continue home medication Patient would need referral to nephrology as an outpatient. He was told to ask his PCP to do so Repeat BMP in the next 3 days Follow-up with cardiology and PCP as directed Patient will be discharged home in a stable condition. For further details about this hospitalization please refer to the electronic chart. Time spent on discharge > 30 minutes including counseling and coordination of care Patient Condition at Discharge: Fair Plan - Discharge Summary Discharge Rx Participant: No New Discharge Prescriptions: New hydrALAZINE HCL [Apresoline] 50 mg PO TID #90 tab Isosorbide Mononitrate ER [Imdur] 30 mg PO DAILY #30 tab.er.24h Furosemide [Lasix] 60 mg PO BID #60 tab Atorvastatin [Lipitor] 20 mg PO HS #30 tab metOLazone [Zaroxolyn] 2.5 mg PO DAILY #30 tab Continue clonazePAM [KlonoPIN] 1 mg PO BID Tamsulosin [Flomax] 0.4 mg PO DAILY Mirtazapine [Remeron] 45 mg PO HS Cholecalciferol [Vitamin D3 (25 Mcg = 1000 Iu)] 1,000 unit PO DAILY Amitriptyline HCl [Elavil] 100 mg PO HS Multivitamins, Thera [Multivitamin (formulary)] 1 tab PO DAILY Melatonin 3 mg PO HS Famotidine [Pepcid] 20 mg PO BID PRN PRN Reason: Heartburn Docusate [Colace] 200 mg PO DAILY Budesonide/Formoterol Fumarate [Symbicort 160-4.5 Mcg Inhaler] 2 puff INHALATION RT-BID Albuterol Inhaler [Ventolin Hfa Inhaler] 1 puff INHALATION RT-QID PRN PRN Reason: Shortness Of Breath Aspirin 81 mg PO DAILY #30 chew carvediloL [Coreg*] 12.5 mg PO BID-W/MEALS #60 tab Nitroglycerin Sl Tabs [Nitrostat] 0.4 mg SUBLINGUAL Q5M PRN #20 tab PRN Reason: Chest Pain Ipratropium-Albuterol Nebulize [Duoneb 0.5 mg-3 mg/3 ml Soln] 3 ml INHALATION RT-Q4H #300 ml Discontinued Simvastatin [Zocor] 20 mg PO HS hydrALAZINE HCL [Apresoline] 10 mg PO TID amLODIPine [Norvasc] 5 mg PO DAILY #30 tab Furosemide [Lasix] 40 mg PO DAILY #30 tab Metoprolol Tartrate [Lopressor] 50 mg PO BID Spironolactone 25 mg PO DAILY Discharge Medication List Amitriptyline HCl [Elavil] 100 mg PO HS 06/04/16 [History] Cholecalciferol [Vitamin D3 (25 Mcg = 1000 Iu)] 1,000 unit PO DAILY 06/04/16 [History] Mirtazapine [Remeron] 45 mg PO HS 06/04/16 [History] Tamsulosin [Flomax] 0.4 mg PO DAILY 06/04/16 [History] clonazePAM [KlonoPIN] 1 mg PO BID 06/04/16 [History] Albuterol Inhaler [Ventolin Hfa Inhaler] 1 puff INHALATION RT-QID PRN 06/08/20 [History] Budesonide/Formoterol Fumarate [Symbicort 160-4.5 Mcg Inhaler] 2 puff INHALATION RT-BID 06/08/20 [History] Docusate [Colace] 200 mg PO DAILY 06/08/20 [History] Famotidine [Pepcid] 20 mg PO BID PRN 06/08/20 [History] Melatonin 3 mg PO HS 06/08/20 [History] Multivitamins, Thera [Multivitamin (formulary)] 1 tab PO DAILY 06/08/20 [ History] Aspirin 81 mg PO DAILY #30 chew 06/13/20 [Rx] Ipratropium-Albuterol Nebulize [Duoneb 0.5 mg-3 mg/3 ml Soln] 3 ml INHALATION RT-Q4H #300 ml 09/09/20 [Rx] Nitroglycerin Sl Tabs [Nitrostat] 0.4 mg SUBLINGUAL Q5M PRN #20 tab 09/09/20 [Rx] carvediloL [Coreg*] 12.5 mg PO BID-W/MEALS #60 tab 09/09/20 [Rx] Atorvastatin [Lipitor] 20 mg PO HS #30 tab 09/23/20 [Rx] Furosemide [Lasix] 60 mg PO BID #60 tab 09/23/20 [Rx] Isosorbide Mononitrate ER [Imdur] 30 mg PO DAILY #30 tab.er.24h 09/23/20 [Rx] hydrALAZINE HCL [Apresoline] 50 mg PO TID #90 tab 09/23/20 [Rx] metOLazone [Zaroxolyn] 2.5 mg PO DAILY #30 tab 09/23/20 [Rx] Follow up Appointment(s)/Referral(s): Nonstaff,Physician [Primary Care Provider] - 1-2 days Ambulatory/Diagnostic Orders: Basic Metabolic Panel [LAB.AMB] Time Frame: 3 Days, Location: None Selected Activity/Diet/Wound Care/Special Instructions: Home Care being arranged by the [facility] Discharge Disposition: HOME WITH HOME HEALTH SERVICES
[2020-09-23 12:20] VITALS: BP 144/80; PULSE 83; RESP 18; TEMP 98
--- NOTE | 2020-09-23 12:48 | P.PN ---
Subjective Progress Note Date: 09/23/20 HISTORY OF PRESENT ILLNESS: Patient examined this morning at the bedside. Patient denies chest pain or pressure. He reports mild shortness of breath at rest and with exertion that is unchanged from yesterday. He remains on IV Lasix 60 mg every 12 hours. Creatinine 3.15 today. Fluid balance over the last 24 hours is approximately -300 mL. Repeat BNP this morning 52,900. PHYSICAL EXAM: VITAL SIGNS: Reviewed. GENERAL: Well-developed in no acute distress. NECK: Supple. No JVD or thyromegaly LUNGS: Respirations even and unlabored. Lungs diminished. HEART: Regular rate and rhythm. S1 and S2 heard. EXTREMITIES: Normal range of motion. No clubbing or cyanosis. Peripheral pulses intact. No lower extremity edema ASSESSMENT: Acute exacerbation of chronic systolic congestive heart failure Nonischemic cardiomyopathy, EF 20-25% Acute on chronic kidney disease COPD Hypertension Hyperlipidemia History of nicotine dependence History of alcohol abuse PLAN: Continue IV Lasix for another 24 hours Monitor kidney function Daily weights Accurate I&O Nurse practitioner note has been reviewed by physician. Signing provider agrees with the documented findings, assessment, and plan of care. Objective - Vital Signs Vital signs: Vital Signs Temp 98.0 F 09/23/20 11:30 Pulse 83 09/23/20 11:30 Resp 18 09/23/20 11:30 BP 144/80 09/23/20 11:30 Pulse Ox 92 L 09/23/20 11:30 Intake & Output 09/22/20 09/23/20 09/23/20 18:59 06:59 18:59 Intake Total 1440 300 750 Output Total 600 1450 Balance 840 -1150 750 Weight 60.1 kg Intake: Oral 1440 300 750 Output: Urine 600 1450 Other: Voiding Method Urinal Urinal # Voids 1 - Labs CBC & Chem 7: 09/19/20 17:23 09/23/20 08:35 Labs: Abnormal Lab Results - Last 24 Hours (Table) 09/23/20 Range/Units 08:35 Potassium 3.1 L (3.5-5.1) mmol/L Chloride 93 L (98-107) mmol/L Carbon Dioxide 33 H (22-30) mmol/L BUN 37 H (9-20) mg/dL Creatinine 3.15 H (0.66-1.25) mg/dL Glucose 162 H (74-99) mg/dL Magnesium 2.4 H (1.6-2.3) mg/dL
== END 2020-09-23 14:08 | disposition home health service (06) | DRG 291 ==
LOC: EC 15:26 → 3SCARD 19:55 → OBSVTOIN 09-22 07:31
PROVIDERS: ADMIT Internal Medicine; ATTEND Internal Medicine
DX: I13.0 Hypertensive heart and chronic kidney disease with heart failure and stage 1 through stage 4 chronic kidney disease, or unspecified chronic kidney disease (principal); I50.23 Acute on chronic systolic (congestive) heart failure; J96.21 Acute and chronic respiratory failure with hypoxia; N17.9 Acute kidney failure, unspecified; I42.8 Other cardiomyopathies; E78.5 Hyperlipidemia, unspecified; F32.9 Major depressive disorder, single episode, unspecified; F41.9 Anxiety disorder, unspecified; G25.81 Restless legs syndrome; I44.0 Atrioventricular block, first degree; J44.9 Chronic obstructive pulmonary disease, unspecified; K21.9 Gastro-esophageal reflux disease without esophagitis; N18.32 Chronic kidney disease, stage 3b; N40.0 Benign prostatic hyperplasia without lower urinary tract symptoms; Z85.038 Personal history of other malignant neoplasm of large intestine; Z87.891 Personal history of nicotine dependence; Z82.5 Family history of asthma and other chronic lower respiratory diseases; Z82.41 Family history of sudden cardiac death; Z79.899 Other long term (current) drug therapy; Z79.82 Long term (current) use of aspirin; Z79.51 Long term (current) use of inhaled steroids; F10.11 Alcohol abuse, in remission; Z90.49 Acquired absence of other specified parts of digestive tract; Z98.1 Arthrodesis status; Z88.5 Allergy status to narcotic agent; Z88.8 Allergy status to other drugs, medicaments and biological substances
CPT/HCPCS: 36415; 71045; 71046; 80048; 80053; 83735; 83880; 84484; 85025; 85610; 85730; 93005; 94640; 94660; 96361; 96374; 99284

== ENCOUNTER 2020-10-05 19:40 | Inpatient (IN) | payer MEDICARE ==
[2020-10-05] MEDS ORDERED: HEPARIN SODIUM,PORCINE 5,000 UNIT/ML 1 ML VIAL IV STA (19:50)
[2020-10-05] MEDS ORDERED: ASPIRIN 600 MG SUPP RECTAL STA (19:52)
[2020-10-05] MEDS ORDERED: PROPOFOL 10 MG/ML 20 ML VIAL IV ONE (19:56)
--- NOTE | 2020-10-05 20:03 | ED ---
General Adult HPI - General Chief complaint: Cardiac Arrest/CPR Stated complaint: Cardiac Arrest Time Seen by Provider: 10/05/20 19:55 Source: EMS Mode of arrival: EMS - History of Present Illness Initial comments: Dictation was produced using [employer] dictation software. please excuse any grammatical, word or spelling errors. This patient was cared for during a federal and state declared state of emergency secondary to Covid 19 Chief Complaint: 70-year-old male presents with syncope History of Present Illness: This is a 70-year-old male he has past medical history of nonischemic cardiomyopathy, ejection fraction of 20%, chronic kidney disease stage III, COPD hypertension dyslipidemia. Patient was brought to the emergency department for syncopal event. History of present illness is obtained from EMS and chart review. According to EMS patient extremity syncopal episode at home where he may have been unresponsive and possibly pulseless for 5-10 min utes. EMS was called immediately and they confirmed that patient was pulseless. EMS was called. CPR was continued and return of spontaneous circulation was obtained. EMS EKG was concerning for possible ST segment elevation MA. Patient has a history of nonischemic cardiomyopathy according to chart review. He had a cardiac catheterization performed earlier this month that showed mild to modera te nonobstructive coronary artery disease involving the mid LAD. 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 Unable to obtain secondary to mental status PHYSICAL EXAM: General Impression: Obtunded, GCS of 3 HEENT: Normocephalic atraumatic, dry mucous membranes, pupils 4 mm reactive to light Cardiovascular: Heart regular rate and rhythm, no murmurs Chest: Bilateral breath sounds Abdomen: abdomen soft, , non-distended, no organomegaly Musculoskeletal: Pulses present and equal in all extremities, no peripheral edema Neurological: No movement, no posturing Skin: Intact with no visualized rashes ED course: 70-year-old male presents after syncopal event. Patient is unresponsive at bedside. Patient did have a pulse and was brought breathing spontaneously however he was unresponsive. Intubation was performed using kaleidoscope. Code STEMI was paged after our emergency department EKG showed diffuse ST depressions. Case is discussed in detail with Dr. Sharma at approximately 7:55 PM. He did review the EKG and felt like patient is not a candidate for emergent cardiac catheterization. Patient given rectal aspirin started on heparin. Patient also started an amiodarone per recommendation by cardiology. Propofol started for sedation. EKG interpretation: Ventricular rate 82, sinus rhythm with first-degree AV block, PA interval to 12, QRS 1:30, QTc 549. PA is prolonged, QRS is widened to 1:30, QTc is elevated at 549. There is diffuse ST depressions in lateral precordial leads, high lateral leads and inferior leads. There is cautioned no ST elevations in V1 and V2. EKG is concerning for ischemic changes. Son was at bedside. I spoke with son at approximately 8:27 PM. He states that he was not there when the event occurred however he did receive a call from patient's girlfriend states that he did appear to have seizure-like activity and was unresponsive. Disposition and plan was discussed with son. Son gives a convincing history of present illness to this suggests fever given that patient had some tonic-clonic activity. His lactic acidosis of 9.1 which could also be secondary to lesion. Patient given 1 g of Keppra. Urology will be consulted tomorrow. Computed tomography scan of the brain shows no acute processes. Chest x-ray shows interstitial pulmonary infiltrates which appear to be slightly improved compared to last exam. Endotracheal tube was advanced 4 cm because on x-ray was 7 cm above the prudence. Laboratory evaluation obtained. CBC shows mild leukocytosis 11.3. Coag panel is unremarkable. 2 blood gas shows pH of 7.58, pCO2 40, pO2 335, bicarb of 44. Ventilation was adjusted to increase patient's ventilatory rate metabolic panel was obtained showing sodium 121, potassium of 2.2, chloride of 63, bicarb of 37 the gap 21. Creatinine is 3.01. Renal markers appear to be above patient's baseline. Magnesium was 2.9. Brain natruretic peptide is 12,200. Urinalysis shows 11 red blood cells. In light of hyponatremia potassium. Amiodarone was discontinued. Potassium was repleted. Case is discussed with Dr. Gaston was went except patient's care to the hospital. Case is discussed with Dr. Alejandre is willing to accept patient care to intensive care unit. - Related Data Home Medications Medication Instructions Recorded Confirmed Amitriptyline HCl [Elavil] 100 mg PO HS 06/04/16 09/19/20 Cholecalciferol [Vitamin D3 (25 1,000 unit PO DAILY 06/04/16 09/19/20 Mcg = 1000 Iu)] Mirtazapine [Remeron] 45 mg PO HS 06/04/16 09/19/20 Tamsulosin [Flomax] 0.4 mg PO DAILY 06/04/16 09/19/20 clonazePAM [KlonoPIN] 1 mg PO BID 06/04/16 09/19/20 Albuterol Inhaler [Ventolin Hfa 1 puff INHALATION RT-QID PRN 06/08/20 09/19/20 Inhaler] Budesonide/Formoterol Fumarate 2 puff INHALATION RT-BID 06/08/20 09/19/20 [Symbicort 160-4.5 Mcg Inhaler] Docusate [Colace] 200 mg PO DAILY 06/08/20 09/19/20 Famotidine [Pepcid] 20 mg PO BID PRN 06/08/20 09/19/20 Melatonin 3 mg PO HS 06/08/20 09/19/20 Multivitamins, Thera [Multivitamin 1 tab PO DAILY 06/08/20 09/19/20 (formulary)] Previous Rx's Medication Instructions Recorded Aspirin 81 mg PO DAILY #30 chew 06/13/20 Ipratropium-Albuterol Nebulize 3 ml INHALATION RT-Q4H #300 ml 09/09/20 [Duoneb 0.5 mg-3 mg/3 ml Soln] Nitroglycerin Sl Tabs [Nitrostat] 0.4 mg SUBLINGUAL Q5M PRN #20 tab 09/09/20 carvediloL [Coreg*] 12.5 mg PO BID-W/MEALS #60 tab 09/09/20 Atorvastatin [Lipitor] 20 mg PO HS #30 tab 09/23/20 Furosemide [Lasix] 60 mg PO BID #60 tab 09/23/20 Isosorbide Mononitrate ER [Imdur] 30 mg PO DAILY #30 tab.er.24h 09/23/20 hydrALAZINE HCL [Apresoline] 50 mg PO TID #90 tab 09/23/20 metOLazone [Zaroxolyn] 2.5 mg PO DAILY #30 tab 09/23/20 Allergies Allergy/AdvReac Type Severity Reaction Status Date / Time lisinopril Allergy swollen Verified 09/19/20 21:41 testicle,rash morphine AdvReac Nausea & Verified 09/19/20 21:41 Vomiting Review of Systems ROS Statement: Those systems with pertinent positive or pertinent negative responses have been documented in the HPI. ROS Other: All systems not noted in ROS Statement are negative. Past Medical History Past Medical History: Cancer, COPD, GERD/Reflux, Hyperlipidemia, Hypertension, Prostate Disorder Additional Past Medical History / Comment(s): cancerous polyp,enlarged prostate,HEMORRHOIDS, BLOOD IN STOOL, RESTLESS LEG - intermittent, colon Cancer History of Any Multi-Drug Resistant Organisms: None Reported Past Surgical History: Appendectomy, Orthopedic Surgery Additional Past Surgical History / Comment(s): ACL SX RT KNEE X3, LEFT HEEL FUSION, LEFT ARM BICEP SX, NASAL SX R/T ULCER, colon resection, COLONOSCOPY, Past Anesthesia/Blood Transfusion Reactions: No Reported Reaction Past Psychological History: Anxiety, Depression Smoking Status: Former smoker Past Alcohol Use History: None Reported Past Drug Use History: None Reported - Past Family History Mother Family Medical History: Cancer Additional Family Medical History / Comment(s): BREAST Sister(s) Family Medical History: Deep Vein Thrombosis (DVT) Father Family Medical History: COPD Additional Family Medical History / Comment(s): FROM CARDIAC ARREST Course Vital Signs 10/05/20 19:42 Temperature 98 F Pulse Rate 67 Respiratory 10 L Rate Blood Pressure 137/81 O2 Sat by Pulse 94 L Oximetry Procedures - Intubation Laryngoscope: fiber optic video scope Size: 3 ET Tube Size: 7.5 ET Tube Uncuffed: No Tube Secured Depth (cm): 21 Tube Secured Location: teeth Tube Placement Confirmation: visualized tube passing through cords, equal breath sounds bilaterally, no breath sounds over epigastrium, confirmation by capnometry Patient Tolerated Procedure: well Medical Decision Making - Lab Data Result diagrams: 10/05/20 19:40 10/05/20 19:40 Lab Results 10/05/20 10/05/20 10/05/20 Range/Units 19:40 19:40 19:40 WBC 11.3 H (3.8-10.6) k/uL RBC 4.73 (4.30-5.90) m/uL Hgb 13.3 (13.0-17.5) gm/dL Hct 41.1 (39.0-53.0) % MCV 86.9 (80.0-100.0) fL MCH 28.1 (25.0-35.0) pg MCHC 32.3 (31.0-37.0) g/dL RDW 14.8 (11.5-15.5) % Plt Count 524 H (150-450) k/uL MPV 6.5 Neutrophils % 68 % Lymphocytes % 22 % Monocytes % 6 % Eosinophils % 1 % Basophils % 1 % Neutrophils # 7.7 (1.3-7.7) k/uL Lymphocytes # 2.5 (1.0-4.8) k/uL Monocytes # 0.7 (0-1.0) k/uL Eosinophils # 0.2 (0-0.7) k/uL Basophils # 0.1 (0-0.2) k/uL PT 10.4 (9.0-12.0) sec INR 1.0 (<1.2) APTT 25.2 (22.0-30.0) sec Sample Site ABG pH (7.35-7.45) ABG pCO2 (35-45) mmHg ABG pO2 (83-108) mmHg ABG HCO3 (21-25) mmol/L ABG Total CO2 (19-24) mmol/L ABG O2 Saturation (94-97) % ABG Base Excess mmol/L Chris Test FiO2 % Sodium 121 L (137-145) mmol/L Potassium 2.2 L* (3.5-5.1) mmol/L Chloride 63 L* (98-107) mmol/L Carbon Dioxide 37 H (22-30) mmol/L Anion Gap 21 mmol/L BUN 77 H (9-20) mg/dL Creatinine 3.01 H (0.66-1.25) mg/dL Est GFR (CKD-EPI)AfAm 24 (>60 ml/min/1.73 sqM) Est GFR (CKD-EPI)NonAf 20 (>60 ml/min/1.73 sqM) Glucose 171 H (74-99) mg/dL Plasma Lactic Acid Dipesh (0.7-2.0) mmol/L Calcium 9.3 (8.4-10.2) mg/dL Ionized Calcium Yudy 3.6 L (4.5-5.3) mg/dL Magnesium 2.9 H (1.6-2.3) mg/dL Total Bilirubin 0.8 (0.2-1.3) mg/dL AST 68 H (17-59) U/L ALT 57 H (4-49) U/L Alkaline Phosphatase 113 (38-126) U/L NT-Pro-B Natriuret Pep pg/mL Total Protein 7.2 (6.3-8.2) g/dL Albumin 4.3 (3.5-5.0) g/dL Urine Color Urine Appearance (Clear) Urine pH (5.0-8.0) Ur Specific [place] (1.001-1.035) Urine Protein (Negative) Urine Glucose (UA) (Negative) Urine Ketones (Negative) Urine Blood (Negative) Urine Nitrite (Negative) Urine Bilirubin (Negative) Urine Urobilinogen (<2.0) mg/dL Ur Leukocyte Esterase (Negative) Urine RBC (0-5) /hpf Urine WBC (0-5) /hpf Urine Bacteria (None) /hpf Hyaline Casts (0-2) /lpf Urine Mucus (None) /hpf 10/05/20 10/05/20 10/05/20 Range/Units 19:40 19:40 20:20 WBC (3.8-10.6) k/uL RBC (4.30-5.90) m/uL Hgb (13.0-17.5) gm/dL Hct (39.0-53.0) % MCV (80.0-100.0) fL MCH (25.0-35.0) pg MCHC (31.0-37.0) g/dL RDW (11.5-15.5) % Plt Count (150-450) k/uL MPV Neutrophils % % Lymphocytes % % Monocytes % % Eosinophils % % Basophils % % Neutrophils # (1.3-7.7) k/uL Lymphocytes # (1.0-4.8) k/uL Monocytes # (0-1.0) k/uL Eosinophils # (0-0.7) k/uL Basophils # (0-0.2) k/uL PT (9.0-12.0) sec INR (<1.2) APTT (22.0-30.0) sec Sample Site ABG pH (7.35-7.45) ABG pCO2 (35-45) mmHg ABG pO2 (83-108) mmHg ABG HCO3 (21-25) mmol/L ABG Total CO2 (19-24) mmol/L ABG O2 Saturation (94-97) % ABG Base Excess mmol/L Chris Test FiO2 % Sodium (137-145) mmol/L Potassium (3.5-5.1) mmol/L Chloride (98-107) mmol/L Carbon Dioxide (22-30) mmol/L Anion Gap mmol/L BUN (9-20) mg/dL Creatinine (0.66-1.25) mg/dL Est GFR (CKD-EPI)AfAm (>60 ml/min/1.73 sqM) Est GFR (CKD-EPI)NonAf (>60 ml/min/1.73 sqM) Glucose (74-99) mg/dL Plasma Lactic Acid Dipesh 9.1 H* (0.7-2.0) mmol/L Calcium (8.4-10.2) mg/dL Ionized Calcium Yudy (4.5-5.3) mg/dL Magnesium (1.6-2.3) mg/dL Total Bilirubin (0.2-1.3) mg/dL AST (17-59) U/L ALT (4-49) U/L Alkaline Phosphatase (38-126) U/L NT-Pro-B Natriuret Pep 66094 pg/mL Total Protein (6.3-8.2) g/dL Albumin (3.5-5.0) g/dL Urine Color Light Yellow Urine Appearance Clear (Clear) Urine pH 7.0 (5.0-8.0) Ur Specific [place] 1.006 (1.001-1.035) Urine Protein 1+ H (Negative) Urine Glucose (UA) Negative (Negative) Urine Ketones Negative (Negative) Urine Blood Trace H (Negative) Urine Nitrite Negative (Negative) Urine Bilirubin Negative (Negative) Urine Urobilinogen <2.0 (<2.0) mg/dL Ur Leukocyte Esterase Negative (Negative) Urine RBC 11 H (0-5) /hpf Urine WBC 4 (0-5) /hpf Urine Bacteria Rare H (None) /hpf Hyaline Casts 4 H (0-2) /lpf Urine Mucus Rare H (None) /hpf 10/05/20 Range/Units 20:35 WBC (3.8-10.6) k/uL RBC (4.30-5.90) m/uL Hgb (13.0-17.5) gm/dL Hct (39.0-53.0) % MCV (80.0-100.0) fL MCH (25.0-35.0) pg MCHC (31.0-37.0) g/dL RDW (11.5-15.5) % Plt Count (150-450) k/uL MPV Neutrophils % % Lymphocytes % % Monocytes % % Eosinophils % % Basophils % % Neutrophils # (1.3-7.7) k/uL Lymphocytes # (1.0-4.8) k/uL Monocytes # (0-1.0) k/uL Eosinophils # (0-0.7) k/uL Basophils # (0-0.2) k/uL PT (9.0-12.0) sec INR (<1.2) APTT (22.0-30.0) sec Sample Site L radial ABG pH 7.58 H* (7.35-7.45) ABG pCO2 48 H (35-45) mmHg ABG pO2 335 H (83-108) mmHg ABG HCO3 44 H* (21-25) mmol/L ABG Total CO2 46 H (19-24) mmol/L ABG O2 Saturation 99.5 H (94-97) % ABG Base Excess 22.4 mmol/L Chris Test Yes FiO2 100 % Sodium (137-145) mmol/L Potassium (3.5-5.1) mmol/L Chloride (98-107) mmol/L Carbon Dioxide (22-30) mmol/L Anion Gap mmol/L BUN (9-20) mg/dL Creatinine (0.66-1.25) mg/dL Est GFR (CKD-EPI)AfAm (>60 ml/min/1.73 sqM) Est GFR (CKD-EPI)NonAf (>60 ml/min/1.73 sqM) Glucose (74-99) mg/dL Plasma Lactic Acid Dipesh (0.7-2.0) mmol/L Calcium (8.4-10.2) mg/dL Ionized Calcium Yudy (4.5-5.3) mg/dL Magnesium (1.6-2.3) mg/dL Total Bilirubin (0.2-1.3) mg/dL AST (17-59) U/L ALT (4-49) U/L Alkaline Phosphatase (38-126) U/L NT-Pro-B Natriuret Pep pg/mL Total Protein (6.3-8.2) g/dL Albumin (3.5-5.0) g/dL Urine Color Urine Appearance (Clear) Urine pH (5.0-8.0) Ur Specific [place] (1.001-1.035) Urine Protein (Negative) Urine Glucose (UA) (Negative) Urine Ketones (Negative) Urine Blood (Negative) Urine Nitrite (Negative) Urine Bilirubin (Negative) Urine Urobilinogen (<2.0) mg/dL Ur Leukocyte Esterase (Negative) Urine RBC (0-5) /hpf Urine WBC (0-5) /hpf Urine Bacteria (None) /hpf Hyaline Casts (0-2) /lpf Urine Mucus (None) /hpf Critical Care Time Critical Care Time: Yes Total Critical Care Time: 33 Disposition Clinical Impression: Syncope, Cardiac arrest Disposition: ADMITTED IP TO THIS [facility] Condition: Critical Referrals: Nonstaff,Physician [Primary Care Provider] - 1-2 days Decision Time: 20:57
[2020-10-05] MEDS ORDERED: SODIUM CHLORIDE 0.9% 1,000 ML IV STA ×2 (20:04)
[2020-10-05] MEDS ORDERED: DEXTROSE 5% IN WATER 100 ML with AMIODARONE 150 MG IV ONE (20:15)
--- NOTE | 2020-10-05 20:16 | XR ---
EXAMINATION TYPE: XR chest 1V portable DATE OF EXAM: 10/05/2020 COMPARISON: 09/22/2020 HISTORY: Respiratory failure. Intubation. There is nasogastric tube in the stomach. Endotracheal tube is 7 cm from the prudence. The lungs are cl ear of consolidation. There is no heart failure. There are no hilar masses. There is mild coarsening of interstitial markings. IMPRESSION: Interstitial pulmonary infiltrates appear the same or slightly improved compared to old e xam.
[2020-10-05 20:17] LABS: Basophils # (A) 0.1 k/uL (0-0.2); Basophils % (A) 1 %; Eosinophils # (A) 0.2 k/uL (0-0.7); Eosinophils % (A) 1 %; HCT 41.1 % (39.0-53.0); HGB 13.3 gm/dL (13.0-17.5); Lymphocytes # (A) 2.5 k/uL (1.0-4.8); Lymphocytes % (A) 22 %; MCH 28.1 pg (25.0-35.0); MCHC 32.3 g/dL (31.0-37.0); MCV 86.9 fL (80.0-100.0); Mean Platelet Volume 6.5; Monocytes # (A) 0.7 k/uL (0-1.0); Monocytes % (A) 6 %; Neutrophils # (A) 7.7 k/uL (1.3-7.7); Neutrophils % (A) 68 %; Platelet Count 524 k/uL (150-450); RBC 4.73 m/uL (4.30-5.90); RDW 14.8 % (11.5-15.5); WBC 11.3 k/uL (3.8-10.6)
[2020-10-05] MEDS ORDERED: NALOXONE 0.4 MG/ML 1 ML VIAL IV PRN (20:21)
[2020-10-05] MEDS ORDERED: ACETAMINOPHEN SUPPOSITORY 650 MG SUPP RECTAL PRN (20:21)
[2020-10-05 20:23] LABS: Ionized Calcium 3.6 mg/dL (4.5-5.3)
[2020-10-05] MEDS ORDERED: AMIODARONE 360 MG in DEXTROSE 5% IN WATER 200 ML IV ONE ×2 (20:24)
--- NOTE | 2020-10-05 20:29 | CT ---
EXAMINATION TYPE: CT brain wo con DATE OF EXAM: 10/05/2020 COMPARISON: None HISTORY: Cardiac arrest. CT DLP: 1172.4 mGycm Automated exposure control for dose reduction was used. There is cerebral atrophy. There is no mass effect nor midline shift. There is no sign of intracrania l hemorrhage. The calvarium is intact. Skull base is intact. Impression negative unenhanced head CT scan. Mild atrophy.
[2020-10-05] MEDS ORDERED: levETIRAcetam IV 1,000 MG in SALINE 1 100ML.BAG IVPB STA (20:31)
[2020-10-05 20:35] LABS: Albumin 4.3 g/dL (3.5-5.0); Calcium 9.3 mg/dL (8.4-10.2); Magnesium 2.9 mg/dL (1.6-2.3); Partial Thromboplastin Time 25.2 sec (22.0-30.0); Prothrombin Time 10.4 sec (9.0-12.0); Total Bilirubin 0.8 mg/dL (0.2-1.3); Total Protein 7.2 g/dL (6.3-8.2)
[2020-10-05 20:36] LABS: Appearance,Urine Clear (Clear); Bacteria,Urine Rare /hpf; Bilirubin,Urine Negative (Negative); Blood,Urine Trace (Negative); Color,Urine Light Yellow; Glucose,Urine (UA) Negative (Negative); Hyaline Casts,Urine 4 /lpf (0-2); Ketones,Urine Negative (Negative); Leukocyte Esterase,Urine Negative (Negative); Mucus,Urine Rare /hpf; Nitrite,Urine Negative (Negative); Protein,Urine 1+ (Negative); RBC,Urine 11 /hpf (0-5); Specific Gravity,Urine 1.006 (1.001-1.035); Urobilinogen,Urine <2.0 mg/dL (<2.0); WBC,Urine 4 /hpf (0-5)
[2020-10-05 20:38] LABS: ABG Base Excess 22.4 mmol/L; ABG Oxygen Saturation 99.5 % (94-97); ABG PCO2 48 mmHg (35-45); ABG PO2 335 mmHg (83-108); ABG TCO2 46 mmol/L (19-24); Allen Test Performed? Yes
[2020-10-05 20:44] LABS: ABG HCO3 44 mmol/L (21-25); ABG PH 7.58 (7.35-7.45)
[2020-10-05 20:53] LABS: Potassium 2.2 mmol/L (3.5-5.1)
[2020-10-05] MEDS: AMIODARONE 300 MG in DEXTROSE 5% IN WATER 250 ML IV SCH ×4 (21:22→21:23)
[2020-10-05] MEDS: POTASSIUM CHLORIDE 20 MEQ in WATER FOR INJECTION 1 100ML.BAG IVPB SCH ×2 (21:25→22:52)
[2020-10-05 22:14] LABS: Cocaine Screen,Urine Not Detected (NotDetected); Phencyclidine Screen,Urine Not Detected (NotDetected)
[2020-10-05 22:14] LABS: Glucose,Whole Blood 138 mg/dL (75-99)
[2020-10-05 22:15] LABS: Amphetamine Screen,Urine Not Detected (NotDetected); Barbiturate Screen,Urine Not Detected (NotDetected); Benzodiazepines Screen,Urine Not Detected (NotDetected); Methadone Screen, Urine Not Detected (NotDetected); Opiate Screen,Urine Not Detected (NotDetected); Oxycodone Screen, Urine Not Detected (NotDetected); Tricyclic Antidepressant,Urine Detected (NotDetected); Urn Cannabinoid Scrn Detected (NotDetected)
[2020-10-05] MEDS ORDERED: LABETALOL 5 MG/ML VIAL MDV IVP STA (22:33)
[2020-10-05] MEDS: POTASSIUM BICARBONATE/CIT AC 20 MEQ TABLET.EFF NG-TUBE SCH (22:44)
[2020-10-06] MEDS: CHLORHEXIDINE GLUCONATE 15 ML CUP MUCOUS MEM SCH ×3 (00:28→21:41)
[2020-10-06] MEDS: acetaZOLAMIDE 250 MG TAB OG-TUBE SCH ×2 (00:28→10:31)
[2020-10-06] MEDS: POTASSIUM BICARBONATE/CIT AC 20 MEQ TABLET.EFF NG-TUBE SCH ×5 (00:28→10:36)
--- NOTE | 2020-10-06 01:45 | P.HPIM ---
History of Present Illness H&P Date: 10/05/20 Chief Complaint: cardiac arrest 70 year old male with hypertension , copd , history of colon cancer, NICMP LVEF 20% patient unresponsive , unable to give any history patient recently discharged from the hospital where he was admitted for worsening renal function and acute chf exacerbation. patient comes in today by ambulance, after passing out at home, found him unresponsive, notified EMS and started CPR, upon arrival of EMS, patient was pulseless, unresponsive down time estimated to be around 10 minutes, he was also found to have Vtach, however, spontaneously converted to sinus rhythm and ROSC achieved. 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 patient earlier this month had a left heart cath showing mild to moderate non obstructive disease at mid LAD. patient son was available however he was not with the patient when he passed out however, patient girlfriend commented on possible seizure like activity. in the ED patient was started on amiodarone drip, loaded with keppra blood work showed contraction alkalosis , CKD stable cr, severe hypokalemia Review of Systems ROS unobtainable: due to mental status Past Medical History Past Medical History: Cancer, COPD, GERD/Reflux, Hyperlipidemia, Hypertension, Prostate Disorder Additional Past Medical History / Comment(s): cancerous polyp,enlarged prostate,HEMORRHOIDS, BLOOD IN STOOL, RESTLESS LEG - intermittent, colon Cancer History of Any Multi-Drug Resistant Organisms: None Reported Past Surgical History: Appendectomy, Orthopedic Surgery Additional Past Surgical History / Comment(s): ACL SX RT KNEE X3, LEFT HEEL FUSION, LEFT ARM BICEP SX, NASAL SX R/T ULCER, colon resection, COLONOSCOPY, Past Anesthesia/Blood Transfusion Reactions: No Reported Reaction Past Psychological History: Anxiety, Depression Smoking Status: Former smoker Past Alcohol Use History: None Reported Past Drug Use History: None Reported - Past Family History Mother Family Medical History: Cancer Additional Family Medical History / Comment(s): BREAST Sister(s) Family Medical History: Deep Vein Thrombosis (DVT) Father Family Medical History: COPD Additional Family Medical History / Comment(s): FROM CARDIAC ARREST Medications and Allergies Home Medications Medication Instructions Recorded Confirmed Type Amitriptyline HCl [Elavil] 100 mg PO HS 06/04/16 10/05/20 History Cholecalciferol [Vitamin D3 (25 1,000 unit PO DAILY 06/04/16 10/05/20 History Mcg = 1000 Iu)] Mirtazapine [Remeron] 45 mg PO HS 06/04/16 10/05/20 History Tamsulosin [Flomax] 0.4 mg PO DAILY 06/04/16 10/05/20 History clonazePAM [KlonoPIN] 1 mg PO BID 06/04/16 10/05/20 History Albuterol Inhaler [Ventolin Hfa 1 puff INHALATION RT-QID PRN 06/08/20 10/05/20 History Inhaler] Budesonide/Formoterol Fumarate 2 puff INHALATION RT-BID 06/08/20 10/05/20 History [Symbicort 160-4.5 Mcg Inhaler] Docusate [Colace] 200 mg PO DAILY 06/08/20 10/05/20 History Famotidine [Pepcid] 20 mg PO BID PRN 06/08/20 10/05/20 History Melatonin 3 mg PO HS 06/08/20 10/05/20 History Multivitamins, Thera [Multivitamin 1 tab PO DAILY 06/08/20 10/05/20 History (formulary)] Aspirin 81 mg PO DAILY #30 chew 06/13/20 10/05/20 Rx Ipratropium-Albuterol Nebulize 3 ml INHALATION RT-Q4H #300 ml 09/09/20 10/05/20 Rx [Duoneb 0.5 mg-3 mg/3 ml Soln] Nitroglycerin Sl Tabs [Nitrostat] 0.4 mg SUBLINGUAL Q5M PRN #20 tab 09/09/20 10/05/20 Rx carvediloL [Coreg*] 12.5 mg PO BID-W/MEALS #60 tab 09/09/20 10/05/20 Rx Atorvastatin [Lipitor] 20 mg PO HS #30 tab 09/23/20 10/05/20 Rx Furosemide [Lasix] 60 mg PO BID #60 tab 09/23/20 10/05/20 Rx Isosorbide Mononitrate ER [Imdur] 30 mg PO DAILY #30 tab.er.24h 09/23/20 10/05/20 Rx hydrALAZINE HCL [Apresoline] 50 mg PO TID #90 tab 09/23/20 10/05/20 Rx metOLazone [Zaroxolyn] 2.5 mg PO DAILY #30 tab 09/23/20 10/05/20 Rx Allergies Allergy/AdvReac Type Severity Reaction Status Date / Time lisinopril Allergy swollen Verified 10/05/20 21:11 testicle,rash morphine AdvReac Nausea & Verified 10/05/20 21:11 Vomiting Physical Exam Vitals: Vital Signs Temp Pulse Resp BP Pulse Ox 10/05/20 19:42 98 F 67 10 L 137/81 94 L Intake and Output 10/05/20 10/05/20 10/05/20 06:59 14:59 22:59 Other: Weight 63.503 kg Constitutional: unresponsive Eyes: Anicteric sclerae, moist conjunctiva, Pupils dilated round reactive to light ENMT: NC/AT, ET tube in place Neck: Supple, FROM, no masses, or JVD No carotid bruits No thyromegaly Lungs: Clear to auscultation Clear to percussion Normal respiratory effort, no accessory muscle use Cardiovascular: Heart regular in rate and rhythm, No murmurs, gallops, or rubs No peripheral edema Abdominal: Soft Nontender, no guarding, rebound or rigidity Abdomen moving with respiration Normoactive bowel sounds No hepatomegaly, No splenomegaly No palpable mass No abdominal wall hernia noted Skin: Normal temperature, tone, texture, turgor No induration No subcutaneous nodules No rash, lesions No ulcers Extremities: No digital cyanosis No clubbing Pedal pulses intact and symmetrical Radial pulses intact and symmetrical Psychiatric: unresponsive Neuro unable to test Lymphatics: no palpable cervical or supraclavicular , or inguinal lymph nodes Results CBC & Chem 7: 10/05/20 19:40 10/05/20 19:40 Labs: Abnormal Lab Results - Last 24 Hours (Table) 10/05/20 10/05/20 10/05/20 Range/Units 19:40 19:40 19:40 WBC 11.3 H (3.8-10.6) k/uL Plt Count 524 H (150-450) k/uL Plasma Lactic Acid Dipesh 9.1 H* (0.7-2.0) mmol/L Ionized Calcium Yudy 3.6 L (4.5-5.3) mg/dL Assessment and Plan Assessment: cardiac arrest with Vtach severe hypokalemia NICMP with LVEF 20% , no ICD COPD lactic acidosis CKD 3 plan supportive care vent dependant respiratory failure vent care ICU admission amiodarone drip cardiology consult replace electrolytes seizure precautions loaded with keppra monitor vital signs campus monitor CT head no acute pathology gentle IVF hydration avoid nephrotoxic meds resume cardiac meds urine drug screen Preformed a thorough record review from recent hospitalization recent hospitalization for acute CHF exacerbation and worsening renal function CODE STATUS:full code DVT prophylaxis: heparin sc Discussed with: Patient, ER, RN Anticipated length of stay > than [address]: pending clinical course A total of 75 minutes was spent on the care of this complex patient more than 50% of the time was spent in counseling and care coordination.
[2020-10-06] MEDS: hydrALAZINE HCL 50 MG TAB PO SCH ×4 (02:19→21:41)
[2020-10-06 04:02] LABS: ABG Oxygen Saturation 96.4 % (94-97); ABG PCO2 36 mmHg (35-45); ABG PO2 78 mmHg (83-108); ABG TCO2 43 mmol/L (19-24); Allen Test Performed? Yes
[2020-10-06 04:04] LABS: ABG HCO3 42 mmol/L (21-25); ABG PH 7.68 (7.35-7.45)
[2020-10-06 04:44] LABS: Basophils % (A) 0 %; Eosinophils # (A) 0.1 k/uL (0-0.7); Eosinophils % (A) 1 %; HCT 36.1 % (39.0-53.0); HGB 11.8 gm/dL (13.0-17.5); Lymphocytes # (A) 1.9 k/uL (1.0-4.8); Lymphocytes % (A) 18 %; MCH 28.1 pg (25.0-35.0); MCHC 32.9 g/dL (31.0-37.0); MCV 85.4 fL (80.0-100.0); Mean Platelet Volume 6.6; Monocytes # (A) 0.6 k/uL (0-1.0); Monocytes % (A) 6 %; Neutrophils # (A) 7.5 k/uL (1.3-7.7); Neutrophils % (A) 74 %; Platelet Count 441 k/uL (150-450); RBC 4.22 m/uL (4.30-5.90); RDW 15.2 % (11.5-15.5); WBC 10.1 k/uL (3.8-10.6)
[2020-10-06 04:56] LABS: Ionized Calcium 3.5 mg/dL (4.5-5.3)
[2020-10-06 05:02] LABS: Albumin 3.9 g/dL (3.5-5.0); Calcium 8.8 mg/dL (8.4-10.2); Magnesium 2.8 mg/dL (1.6-2.3); Potassium 2.8 mmol/L (3.5-5.1); Total Bilirubin 0.6 mg/dL (0.2-1.3); Total Protein 6.5 g/dL (6.3-8.2)
[2020-10-06] MEDS ORDERED: CALCIUM GLUCONATE 1 GM in SODIUM CHLORIDE 0.9% 100 ML IVPB ONE ×2 (05:15→08:00)
[2020-10-06] MEDS: AMIODARONE 300 MG in DEXTROSE 5% IN WATER 250 ML IV SCH ×2 (05:37)
[2020-10-06] MEDS ORDERED: DEXTROSE 5% IN WATER 100 ML with AMIODARONE 150 MG IV ONE (07:40)
[2020-10-06] MEDS ORDERED: LIDOCAINE 2% SYG (PF) 100 MG/5 ML IV ONE (07:42)
[2020-10-06] MEDS: LIDOCAINE-D5W PMX 2G/250ML 2,000 MG in DEXTROSE/WATER 1 250ML.BAG IV SCH (08:38)
[2020-10-06 09:40] LABS: Calcium 9.3 mg/dL (8.4-10.2)
--- NOTE | 2020-10-06 09:59 | XR ---
EXAMINATION TYPE: XR chest 1V portable DATE OF EXAM: 10/06/2020 COMPARISON: 10/05/2020 HISTORY: ET tube placement TECHNIQUE: Single frontal view of the chest is obtained. FINDINGS: ET tube placement within the proximal right main bronchus. Repositioning recommended. NG t ube noted. Subsegmental changes at the left lung base. No pneumothorax. Underlying COPD suspected. Mi ld prominence of interstitium stable. IMPRESSION: 1. ET tube low in position within the proximal right mainstem recommend repositioning. 2. Mild prominence of the interstitium could been the basis of interstitial pneumonitis or chronic in terstitial lung disease. 3. Left basilar atelectasis favored over infiltrate.
[2020-10-06] MEDS ORDERED: Potassium Replacement Protocol 1 EACH MISC MISCELLANE PRN (10:06)
--- NOTE | 2020-10-06 10:07 | P.CNNES ---
History of Present Illness Consult date: 10/06/20 Requesting physician: Sumit Dixon Reason for Consult: Questionable seizure History of Present Illness: This is a 70-year-old gentleman with medical history of nonischemic cardiomyopathy, ejection fraction of 20%, chronic kidney disease stage III, hypertension, dyslipidemia, COPD the presented emergency department on 10/05/2020 for a syncopal episode. Because of the patient condition history was obtained from medical records. Per medical documentation patient was unresponsive and pulseless for about 5-10 minutes. CPR was performed and return of spontaneous circulation was obtained. EKG by EMS was concerning for possible ST segment elevation myocardial infarction. According to the patient's son who was in the ED he was not that when the incident happened but he got a call from the patient girlfriend that the patient did appear to have a seizure-like activity and was unresponsive. And it seems that the patient had tonic-clonic activity. Per the patient nurse, family members notified the nursing staff the in the ED that the patient had the rolling of the eyes then was slumped over and no description of generalized tonic-clonic seizure. Of note the patient had the recent cardiac catheterization performed earlier this month that showed mild to moderate nonobstructive coronary artery disease involving the mild LAD. Also showed severe disease of the right external iliac artery. Workup in the hospital consisted of: Initial vital signs as a blood pressure of 137/81, heart rate of 67, respiratory of 10 L, temperature of 98 the Fahrenheit oral and pulse ox of 94 L at room air. Since the patient been the hospital there is no fevers documented. CT of the head was reported as negative unenhanced head CT scan. Mild atrophy. EKG is reported as sinus rhythm with first-degree AV block. Left axis deviation. Left ventricular hypertrophy with QRS widening and repolarization abnormality. Abnormal EKG. Chest x-ray was reported as interstitial pulmonary infiltrates appeared the same or slightly improved compared to old exam. Initial blood cells 11.3 and a platelet is 524. Initial potassium is 2.2, chloride a 63, plasma lactic acid vein is 9.1, calcium is 9.3 and ionized calcium is 3.6, troponin is 0.074 Initial sodium is 121 on presentation and the repeat is 122. Patient baseline sodium is in 137-141. Urine drug screen is positive for for tricyclic antidepressants and marijuana. The case was discussed with cardiology and they felt that the patient was not a candidate for emergent cardiac catheterization. As a result the patient was given rectal aspirin was started on heparin drip. Also the patient was started on amiodarone per cardiology recommendation. Because of the seizure-like activity and the lactic acid was 9.1 as well as with a fever the patient was given 1 g of Keppra by the ED. Patient was propofol IV drip 45 mcg per program per minute. Upon seeing the patient he was intubated and on ventilator and Propofol drip. Upon seeing today his cardiac monitoring revealed runs of V-fib. Review of Systems The per positive and negative as per HPI otherwise is limited because of patient condition. Past Medical History Past Medical History: Cancer, COPD, GERD/Reflux, Hyperlipidemia, Hypertension, Prostate Disorder Additional Past Medical History / Comment(s): cancerous polyp,enlarged prostate,HEMORRHOIDS, BLOOD IN STOOL, RESTLESS LEG - intermittent, colon Cancer History of Any Multi-Drug Resistant Organisms: None Reported Past Surgical History: Appendectomy, Orthopedic Surgery Additional Past Surgical History / Comment(s): ACL SX RT KNEE X3, LEFT HEEL FUSION, LEFT ARM BICEP SX, NASAL SX R/T ULCER, colon resection, COLONOSCOPY, Past Anesthesia/Blood Transfusion Reactions: No Reported Reaction Past Psychological History: Anxiety, Depression Smoking Status: Former smoker Past Alcohol Use History: None Reported Past Drug Use History: None Reported - Past Family History Mother Family Medical History: Cancer Additional Family Medical History / Comment(s): BREAST Sister(s) Family Medical History: Deep Vein Thrombosis (DVT) Father Family Medical History: COPD Additional Family Medical History / Comment(s): FROM CARDIAC ARREST Medications and Allergies Home Medications Medication Instructions Recorded Confirmed Type Amitriptyline HCl [Elavil] 100 mg PO HS 06/04/16 10/05/20 History Cholecalciferol [Vitamin D3 (25 1,000 unit PO DAILY 06/04/16 10/05/20 History Mcg = 1000 Iu)] Mirtazapine [Remeron] 45 mg PO HS 06/04/16 10/05/20 History Tamsulosin [Flomax] 0.4 mg PO DAILY 06/04/16 10/05/20 History clonazePAM [KlonoPIN] 1 mg PO BID 06/04/16 10/05/20 History Albuterol Inhaler [Ventolin Hfa 1 puff INHALATION RT-QID PRN 06/08/20 10/05/20 History Inhaler] Budesonide/Formoterol Fumarate 2 puff INHALATION RT-BID 06/08/20 10/05/20 History [Symbicort 160-4.5 Mcg Inhaler] Docusate [Colace] 200 mg PO DAILY 06/08/20 10/05/20 History Famotidine [Pepcid] 20 mg PO BID PRN 06/08/20 10/05/20 History Melatonin 3 mg PO HS 06/08/20 10/05/20 History Multivitamins, Thera [Multivitamin 1 tab PO DAILY 06/08/20 10/05/20 History (formulary)] Aspirin 81 mg PO DAILY #30 chew 06/13/20 10/05/20 Rx Ipratropium-Albuterol Nebulize 3 ml INHALATION RT-Q4H #300 ml 09/09/20 10/05/20 Rx [Duoneb 0.5 mg-3 mg/3 ml Soln] Nitroglycerin Sl Tabs [Nitrostat] 0.4 mg SUBLINGUAL Q5M PRN #20 tab 09/09/20 10/05/20 Rx carvediloL [Coreg*] 12.5 mg PO BID-W/MEALS #60 tab 09/09/20 10/05/20 Rx Atorvastatin [Lipitor] 20 mg PO HS #30 tab 09/23/20 10/05/20 Rx Furosemide [Lasix] 60 mg PO BID #60 tab 09/23/20 10/05/20 Rx Isosorbide Mononitrate ER [Imdur] 30 mg PO DAILY #30 tab.er.24h 09/23/20 10/05/20 Rx hydrALAZINE HCL [Apresoline] 50 mg PO TID #90 tab 09/23/20 10/05/20 Rx metOLazone [Zaroxolyn] 2.5 mg PO DAILY #30 tab 09/23/20 10/05/20 Rx Allergies Allergy/AdvReac Type Severity Reaction Status Date / Time lisinopril Allergy swollen Verified 10/05/20 21:11 testicle,rash morphine AdvReac Nausea & Verified 10/05/20 21:11 Vomiting Physical Examination - Vital Signs Vital Signs: Vital Signs Temp Pulse Resp BP Pulse Ox 10/06/20 07:00 54 L 20 104/62 94 L 10/06/20 06:30 53 L 20 122/65 94 L 10/06/20 06:00 55 L 21 124/71 95 10/06/20 05:30 51 L 20 122/66 95 10/06/20 05:00 52 L 20 115/67 96 10/06/20 04:30 51 L 20 116/69 96 10/06/20 04:00 97.6 F 52 L 20 116/75 96 10/06/20 03:30 52 L 13 93/59 97 10/06/20 03:00 51 L 20 111/68 98 10/06/20 02:30 50 L 20 123/72 98 10/06/20 02:00 49 L 20 100/63 98 10/06/20 01:30 50 L 20 100/64 98 10/06/20 01:00 50 L 20 110/69 99 10/06/20 00:30 53 L 20 112/71 98 10/06/20 00:00 97.5 F L 52 L 20 122/70 97 10/05/20 23:30 50 L 20 135/74 95 10/05/20 23:00 58 L 20 145/85 96 10/05/20 22:30 60 20 202/92 96 10/05/20 22:09 97.6 F 64 11 L 10/05/20 22:00 60 20 132/78 100 10/05/20 21:00 60 20 101/62 100 10/05/20 20:45 74 18 113/67 100 10/05/20 20:30 74 20 138/73 100 10/05/20 19:45 61 12 189/67 97 10/05/20 19:42 98 F 67 10 L 137/81 94 L Intake and Output 10/05/20 10/06/20 10/06/20 22:59 06:59 14:59 Intake Total 80.957 716.007 60 Output Total 80 500 90 Balance 0.957 216.007 -30 Intake: IV 60 580 60 Potassium Chloride 20 meq 100 In Water For Injection 1 100ml.bag @ 50 mls/hr IVPB Q2H [facility] Rx#: [id number] Sodium Chloride 0.9% 1, 60 480 60 000 ml @ 60 mls/hr IV . [id number] [facility] Rx#:[id number] Intake, IV Titration 20.957 136.007 Amount propofoL 1,000 mg In 20.957 136.007 Empty Bag 1 bag @ Titrate IV .Q0M [facility] Rx#: [id number] Output: Urine 80 500 90 Other: Voiding Method Indwelling Catheter Weight 63.503 kg GENERAL: The patient is lying and intubated on ventilator and on IV sedation (Propofol). CHEST: The heart rate is arrhythmic. No murmurs to auscultation. LUNG: Intubated and on Ventilator. Clear to auscultation bilaterally no wheezing noted throughout. Not labored breathing. Breathing at the vent. ABDOMEN/GI: Bowel sounds present in all 4 quadrants. No tenderness to palpation throughout. NEUROLOGICAL: Limited because of patient's condition. Higher mental function: GCS: 3. Comatose and not following commands. Cranial nerves: The pupils are round, equal 1-2mm bilaterally and minimally reactive to light. Pupils primary gaze are midline. No facial weakness noted throughout. Motor: Gait is deferred. The strength is unable to assess because of condition. No spontaneous movement noted. Normal tone and bulk. Sensation: Unable to assess. Reflexes (right/left): 1+ throughout. Plantars are mute bilaterally. Results Initial serum glucose is 171. BUN/creatinine is 77 over 3.01 AST of 68, ALT of 57. Alcohol phosphatase is 113. Pro-BNP: 67672 TSH of 3.2. Pang virus PCR was not detected. Urinalysis was negative for urinary tract infection. - Laboratory Findings CBC and BMP: 10/06/20 03:43 10/06/20 17:45 Abnormal Lab Findings: Abnormal Labs 10/05/20 10/05/20 10/05/20 19:40 19:40 19:40 WBC 11.3 H RBC Hgb Hct Plt Count 524 H ABG pH ABG pCO2 ABG pO2 ABG HCO3 ABG Total CO2 ABG O2 Saturation Sodium 121 L Potassium 2.2 L* Chloride 63 L* Carbon Dioxide 37 H BUN 77 H Creatinine 3.01 H Glucose 171 H POC Glucose (mg/dL) Plasma Lactic Acid Dipesh 9.1 H* Ionized Calcium Yudy 3.6 L Magnesium 2.9 H AST 68 H ALT 57 H Troponin I Urine Protein Urine Blood Urine RBC Urine Bacteria Hyaline Casts Urine Mucus U Tricyclic Antidepress U Marijuana (THC) Screen 10/05/20 10/05/20 10/05/20 19:40 20:20 20:35 WBC RBC Hgb Hct Plt Count ABG pH 7.58 H* ABG pCO2 48 H ABG pO2 335 H ABG HCO3 44 H* ABG Total CO2 46 H ABG O2 Saturation 99.5 H Sodium Potassium Chloride Carbon Dioxide BUN Creatinine Glucose POC Glucose (mg/dL) Plasma Lactic Acid Dipesh Ionized Calcium Yudy Magnesium AST ALT Troponin I 0.074 H* Urine Protein 1+ H Urine Blood Trace H Urine RBC 11 H Urine Bacteria Rare H Hyaline Casts 4 H Urine Mucus Rare H U Tricyclic Antidepress U Marijuana (THC) Screen 10/05/20 10/05/20 10/06/20 20:50 22:13 03:43 WBC RBC 4.22 L Hgb 11.8 L Hct 36.1 L Plt Count ABG pH ABG pCO2 ABG pO2 ABG HCO3 ABG Total CO2 ABG O2 Saturation Sodium Potassium Chloride Carbon Dioxide BUN Creatinine Glucose POC Glucose (mg/dL) 138 H Plasma Lactic Acid Dipesh Ionized Calcium Yudy Magnesium AST ALT Troponin I Urine Protein Urine Blood Urine RBC Urine Bacteria Hyaline Casts Urine Mucus U Tricyclic Antidepress Detected H U Marijuana (THC) Screen Detected H 10/06/20 10/06/20 03:43 03:55 WBC RBC Hgb Hct Plt Count ABG pH 7.68 H* ABG pCO2 ABG pO2 78 L ABG HCO3 42 H* ABG Total CO2 43 H ABG O2 Saturation Sodium 122 L Potassium 2.8 L Chloride 67 L* Carbon Dioxide 41 H* BUN 75 H Creatinine 3.10 H Glucose 117 H POC Glucose (mg/dL) Plasma Lactic Acid Dipesh Ionized Calcium Yudy 3.5 L* Magnesium 2.8 H AST 62 H ALT Troponin I Urine Protein Urine Blood Urine RBC Urine Bacteria Hyaline Casts Urine Mucus U Tricyclic Antidepress U Marijuana (THC) Screen Assessment and Plan Assessment: This is a 70-year-old gentleman that presented to the emergency department on 10/05/2020 for syncopal episode. It is documented the patient the had no pulse lasting for 5-10 minutes and per the patient's girlfriend patient had questionable seizure-like activity. He has runs of Vib/Vtach overnight and today. Syncopal episode: Seemed cardiac in etiology. ?seizure-like activity. If it is a seizure possibly could be provoked because of the hyponatremia which is acute, rest of electrolyte imbalance Ecephalopathy due to patient cardiac arrest, ?seizure, electrolyte imbalance and sedation use (Propofol) Cardiac arrest with V. tach Runs of V-fib and V tach Acute hyponatremia Electrolyte imbalance (hyponatremia, Hypokalemia Elevated troponin Elevated liver function tests likely reactive. History of nonischemic cardiomyopathy with ejection fraction of 20% Acute on chronic kidney insufficiency Dyslipidemia COPD Plan: Ordered urgent EEG. In the ED the patient was given 1 g dose of Keppra loading. We'll not start the patient on antiepileptic drugs unless there is epileptic form discharges or seizure seen on the EEG. Recommend getting MRI of the brain without gadolinium to rule out any intracranial abnormality once stable. I started the patient on thiamine 100 mg IV daily. Order ammonia level. Cardiology is on board. I will defer correcting hyponatremia and rest of electrolyte imbalance to the primary/ICU team. The plan was discussed with ICU team and primary team. Thank you for consultation. Terry Rivas M.D. Neuro-hospitalist Time with Patient: Greater than 30
[2020-10-06] MEDS ORDERED: POTASSIUM CHLORIDE 20 MEQ in WATER FOR INJECTION 1 100ML.BAG IVPB STA (10:20)
[2020-10-06] MEDS: HEPARIN SODIUM,PORCINE 5,000 UNIT/ML 1 ML VIAL SQ SCH ×3 (10:24→23:58)
[2020-10-06] MEDS: THIAMINE 100 MG/ML 2 ML VIAL IVP SCH (10:31)
[2020-10-06] MEDS ORDERED: SODIUM CHLORIDE 0.9% 1,000 ML IV ONE (10:55)
[2020-10-06] MEDS ORDERED: POTASSIUM CHLORIDE 10 MEQ in WATER FOR INJECTION 1 100ML.BAG IVPB SCH (11:00)
[2020-10-06] MEDS ORDERED: 0.9% NACL WITH KCL 40 MEQ/L 1,000 ML IV SCH (11:00)
[2020-10-06] MEDS: POTASSIUM CHLORIDE 20 MEQ in WATER FOR INJECTION 1 100ML.BAG IVPB SCH ×3 (11:23→15:33)
[2020-10-06] MEDS ORDERED: POTASSIUM BICARBONATE/CIT AC 20 MEQ TABLET.EFF PO ONE (13:30)
--- NOTE | 2020-10-06 13:46 | P.NPCON ---
History of Present Illness - Reason for Consult acute renal failure, chronic renal failure, hypokalemia - History of Present Illness Reason for consultation: Acute kidney injury on chronic kidney disease and electrolyte imbalance History of present illness: Patient is a 70-year-old male seen in renal consultation for acute kidney injury on chronic kidney disease and electrolyte imbalance. Patient's creatinine this year has been mostly in the range of 2.3-2.5. It was 3.01 on admission and is 2.91 today. Patient had cardiopulmonary arrest at home with a down time of about 5-15 minutes. Patient did receive one shock as he was in either V. fib or V. tach. Potassium level was 2.2 which was replaced and it did come up to 2.8. It was replaced further orally and this morning it was 2.0. He is currently receiving 80 mEq IV potassium. Additionally he has potassium running with his IV fluids. He does have an OG tube. Patient has history of systolic CHF with ejection fraction of 20-25% with mild to moderate mitral regurgitation. He has received 2 L of normal saline bolus of far and is currently receiving normal saline at 100 mL an hour. He's not on any vasopressor support. He is maintai josé miguel on amiodarone as well as lidocaine drip. He was also noted to be alkalotic and his bicarb level was as high as 41 this admission. It was 40 this morning. Patient is currently intubated. He is on 50% FiO2. Currently undergoing EEG. Home medications were reviewed. He was on Lasix and metolazone at home. Vital signs are stable. General: The patient appeared well nourished and normally developed. HEENT: Head exam is unremarkable. Neck is without jugular venous distension. LUNGS: Breath sounds decreased. HEART: Rate and Rhythm are regular. ABDOMEN: Soft, no distention noted. EXTREMITITES: No edema. Past Medical History Past Medical History: Cancer, COPD, GERD/Reflux, Hyperlipidemia, Hypertension, Prostate Disorder Additional Past Medical History / Comment(s): cancerous polyp,enlarged prostate,HEMORRHOIDS, BLOOD IN STOOL, RESTLESS LEG - intermittent, colon Cancer History of Any Multi-Drug Resistant Organisms: None Reported Past Surgical History: Appendectomy, Orthopedic Surgery Additional Past Surgical History / Comment(s): ACL SX RT KNEE X3, LEFT HEEL FUSION, LEFT ARM BICEP SX, NASAL SX R/T ULCER, colon resection, COLONOSCOPY, Past Anesthesia/Blood Transfusion Reactions: No Reported Reaction Past Psychological History: Anxiety, Depression Smoking Status: Former smoker Past Alcohol Use History: None Reported Past Drug Use History: None Reported - Past Family History Mother Family Medical History: Cancer Additional Family Medical History / Comment(s): BREAST Sister(s) Family Medical History: Deep Vein Thrombosis (DVT) Father Family Medical History: COPD Additional Family Medical History / Comment(s): FROM CARDIAC ARREST Medications and Allergies Home Medications Medication Instructions Recorded Confirmed Type Amitriptyline HCl [Elavil] 100 mg PO HS 06/04/16 10/05/20 History Cholecalciferol [Vitamin D3 (25 1,000 unit PO DAILY 06/04/16 10/05/20 History Mcg = 1000 Iu)] Mirtazapine [Remeron] 45 mg PO HS 06/04/16 10/05/20 History Tamsulosin [Flomax] 0.4 mg PO DAILY 06/04/16 10/05/20 History clonazePAM [KlonoPIN] 1 mg PO BID 06/04/16 10/05/20 History Albuterol Inhaler [Ventolin Hfa 1 puff INHALATION RT-QID PRN 06/08/20 10/05/20 History Inhaler] Budesonide/Formoterol Fumarate 2 puff INHALATION RT-BID 06/08/20 10/05/20 History [Symbicort 160-4.5 Mcg Inhaler] Docusate [Colace] 200 mg PO DAILY 06/08/20 10/05/20 History Famotidine [Pepcid] 20 mg PO BID PRN 06/08/20 10/05/20 History Melatonin 3 mg PO HS 06/08/20 10/05/20 History Multivitamins, Thera [Multivitamin 1 tab PO DAILY 06/08/20 10/05/20 History (formulary)] Aspirin 81 mg PO DAILY #30 chew 06/13/20 10/05/20 Rx Ipratropium-Albuterol Nebulize 3 ml INHALATION RT-Q4H #300 ml 09/09/20 10/05/20 Rx [Duoneb 0.5 mg-3 mg/3 ml Soln] Nitroglycerin Sl Tabs [Nitrostat] 0.4 mg SUBLINGUAL Q5M PRN #20 tab 09/09/20 10/05/20 Rx carvediloL [Coreg*] 12.5 mg PO BID-W/MEALS #60 tab 09/09/20 10/05/20 Rx Atorvastatin [Lipitor] 20 mg PO HS #30 tab 09/23/20 10/05/20 Rx Furosemide [Lasix] 60 mg PO BID #60 tab 09/23/20 10/05/20 Rx Isosorbide Mononitrate ER [Imdur] 30 mg PO DAILY #30 tab.er.24h 09/23/20 10/05/20 Rx hydrALAZINE HCL [Apresoline] 50 mg PO TID #90 tab 09/23/20 10/05/20 Rx metOLazone [Zaroxolyn] 2.5 mg PO DAILY #30 tab 09/23/20 10/05/20 Rx Allergies Allergy/AdvReac Type Severity Reaction Status Date / Time lisinopril Allergy swollen Verified 10/05/20 21:11 testicle,rash morphine AdvReac Nausea & Verified 10/05/20 21:11 Vomiting Physical Exam Vitals: Vital Signs Temp Pulse Pulse Resp BP BP Pulse Ox 10/06/20 13:07 56 L 20 147/90 10/06/20 12:30 57 L 20 152/90 99 10/06/20 12:15 56 L 20 150/93 99 10/06/20 12:00 97.7 F 55 L 20 148/87 99 10/06/20 11:45 51 L 20 140/84 99 10/06/20 11:30 50 L 20 136/84 98 10/06/20 11:15 51 L 20 138/80 96 10/06/20 11:00 53 L 20 138/84 96 10/06/20 10:45 52 L 20 139/77 95 10/06/20 10:30 50 L 20 132/71 95 10/06/20 10:15 50 L 20 132/76 96 10/06/20 10:00 49 L 20 125/73 96 10/06/20 09:45 49 L 20 144/69 96 10/06/20 09:30 50 L 20 124/75 97 10/06/20 09:15 50 L 20 122/72 97 10/06/20 09:00 50 L 20 102/62 97 10/06/20 08:45 49 L 20 113/68 96 10/06/20 08:30 49 L 20 107/65 95 10/06/20 08:15 49 L 20 104/63 95 10/06/20 08:00 98.3 F 49 L 20 124/69 96 10/06/20 07:45 52 L 20 134/75 99 10/06/20 07:00 54 L 20 104/62 94 L 10/06/20 06:30 53 L 20 122/65 94 L 10/06/20 06:00 55 L 21 124/71 95 10/06/20 05:30 51 L 20 122/66 95 10/06/20 05:00 52 L 20 115/67 96 10/06/20 04:30 51 L 20 116/69 96 10/06/20 04:00 97.6 F 52 L 20 116/75 96 10/06/20 03:30 52 L 13 93/59 97 10/06/20 03:00 51 L 20 111/68 98 10/06/20 02:30 50 L 20 123/72 98 10/06/20 02:00 49 L 20 100/63 98 10/06/20 01:30 50 L 20 100/64 98 10/06/20 01:00 50 L 20 110/69 99 10/06/20 00:30 53 L 20 112/71 98 10/06/20 00:00 97.5 F L 52 L 20 122/70 97 10/05/20 23:30 50 L 20 135/74 95 10/05/20 23:00 58 L 20 145/85 96 10/05/20 22:30 60 20 202/92 96 10/05/20 22:09 97.6 F 64 11 L 10/05/20 22:00 60 20 132/78 100 10/05/20 21:00 60 20 101/62 100 10/05/20 20:45 74 18 113/67 100 10/05/20 20:30 74 20 138/73 100 10/05/20 19:45 61 12 189/67 97 10/05/20 19:42 98 F 67 10 L 137/81 94 L Intake and Output 10/05/20 10/06/20 10/06/20 22:59 06:59 14:59 Intake Total 80.957 048.381 4212.441 Output Total 80 500 850 Balance 0.957 216.007 269.441 Intake: IV 60 580 1050 0.9% NaCl with KCl 40 Meq 200 /l 1,000 ml @ 100 mls/hr IV .Q10H [facility] Rx#: [id number] Amiodarone 300 mg In 250 Dextrose 5% in Water 250 ml @ 1 MG/MIN 50 mls/hr IV .Q5H [facility] Rx#:[id number] Calcium Gluconate 1 gm In 100 Sodium Chloride 0.9% 100 ml @ 100 mls/hr IVPB ONCE ONE Rx#:[id number] Potassium Chloride 10 meq 100 In Water For Injection 1 100ml.bag @ 100 mls/hr IVPB Q1HR [facility] Rx#: [id number] Potassium Chloride 20 meq 100 100 In Water For Injection 1 100ml.bag @ 50 mls/hr IVPB Q2H [facility] Rx#: [id number] Sodium Chloride 0.9% 1, 60 480 300 000 ml @ 60 mls/hr IV . [id number] [facility] Rx#:[id number] Intake, IV Titration 20.957 136.007 69.441 Amount propofoL 1,000 mg In 20.957 136.007 69.441 Empty Bag 1 bag @ Titrate IV .Q0M [facility] Rx#: [id number] Output: Urine 80 500 850 Other: Voiding Method Indwelling Catheter Indwelling Catheter Weight 63.503 kg 61.6 kg Results - Lab Results Most recent lab results ABG pH 7.68 (7.35-7.45) H* 10/06/20 03:55 ABG pCO2 36 mmHg (35-45) 10/06/20 03:55 ABG pO2 78 mmHg (83-108) L 10/06/20 03:55 ABG HCO3 42 mmol/L (21-25) H* 10/06/20 03:55 ABG O2 Saturation 96.4 % (94-97) 10/06/20 03:55 Calcium 9.3 mg/dL (8.4-10.2) 10/06/20 09:06 Magnesium 2.8 mg/dL (1.6-2.3) H 10/06/20 03:43 10/06/20 03:43 10/06/20 09:06 Assessment and Plan Plan: Assessment: 1. Acute kidney injury secondary to ATN secondary to cardiopulmonary arrest. Nonoliguric. Creatinine was 3.1 on admission and is 2.91 today. 2. Chronic kidney disease stage IV with baseline creatinine in the range of 2.3-2.5 this year. 3. Status post cardiopulmonary arrest with down time of about 5-15 minutes. Ma intained on amiodarone and lidocaine drip. 4. Severe hypokalemia secondary to poor intake and diuretics. Magnesium normal. 5. Metabolic alkalosis secondary to volume contraction from diuretics. 6. Hypovolemic hyponatremia. 7. Chronic systolic CHF with ejection fraction of 20-25% with mild to moderate mitral regurgitation. 8. Acute hypoxic respiratory failure. Plan: Maintain IV potassium supplementation. 40 mEq oral potassium to be given now. Repeat BMP this evening. Check serum and urine osmolality and urine sodium level. Check urine potassium level. Check renal ultrasound. Wean FiO2. Continue to monitor renal function and urine output. Thank you for the consultation. I will continue to follow the patient with you during his hospital stay.
--- NOTE | 2020-10-06 14:47 | P.PN ---
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 When they arrived the patient was pulseless was felt to have a downtime of around 10 minutes. He was found to have V. tach but spontaneously converted to sinus rhythm and Butler was achieved. However the patient was alert and responsive and was intubated. Cardiology evaluated the EKG on arrival to the hospital and did not recommend any immediate intervention in the director of cardiac cath lab. Initial vital signs in the ER showed a temperature of 98, pulse 67, respirations 10, blood pressure 137/81, and oxygenation saturation 94%. Initial laboratory analysis was remarkable for a sodium of 121, potassium 2.2, BUN 77, creatinine 3.01 (baseline is 2.8-2.9), troponin 0.074, BNP 12,200. Rotavirus antigen was negative, white blood cell count 11.3 platelet count 524. Initial ABG showed a pH of 7.58 pCO2 of 48, PaO2 of 335. He was started on a small amount of normal saline and potassium was replaced. He is admitted to the ICU. He continued to have episodes of V. tach overnight ultimately requiring amiodarone and lidocaine drip. On the morning after admission he was still hyponatremic and hypokalemic. He is seen by neurology who asked that he have interactions and sedation for proper neurologic examination. Patient seen and examined at bedside. Unresponsive on vent. Updates were overnight as outlined above. General: non toxic, no distress, appears at stated age Derm: warm, dry Head: atraumatic, normocephalic, symmetric Eyes: EOMI, no lid lesions, anicteric sclera Mouth: no lip lesion, mucus membranes moist Cardiovascular: S1S2 reg, no murmur, positive posterior tibial pulse bilateral, Lungs: Coarse breath sounds bilaterally, no rhonchi, no rales , no accessory muscle use Abdominal: soft, nontender to palpation, no guarding, no appreciable organomegaly Ext: no gross muscle atrophy, no edema, no contractures Neuro: Positive cough, breathing over vent, no withdrawal to pain in all 4 extremities Psych: Sedated on vent Aborted sudden cardiac with ventricular tachycardia -Cardiology recommendations -On amiodarone and lidocaine -Attempt to correct electrolyte abnormalities Hyponatremia secondary to dehydration -Severe -Continue with IV fluids -Nephrology consulted -Recheck lites once potassium supplementation has been given Hypokalemia -Replace and recheck -Magnesium intact Acute metabolic encephalopathy - suspect anoxic - supportive care - neuro recs Systolic congestive heart failure with ejection fraction 20-25% -No acute exacerbation noted despite elevated BNP -IV fluids -Hold Zaroxolyn, Lasix -Hold Coreg secondary to hypotension -Not on URIEL inhibitor or ARB secondary to recent acute kidney injury Acute kidney injury and chronic kidney disease with baseline creatinine 2.9 -Avoid nephrotoxic agents -IV fluids -Repeat labs in a.m. -Consult nephrology DVT prophylaxis: Heparin Discussed with: Nursing, Neuology Anticipated discharge: undetermined Anticipated discharge place: undetermined A total of 45 minutes was spent on the care of this complex patient more than 50% of the time was spent in counseling and care coordination. Objective - Vital Signs Vital signs: Vital Signs Temp 97.7 F 10/06/20 12:00 Pulse 56 L 10/06/20 13:07 Resp 20 10/06/20 13:07 BP 142/94 10/06/20 14:15 Pulse Ox 99 10/06/20 12:30 Intake & Output 10/05/20 10/06/20 10/06/20 18:59 06:59 18:59 Intake Total 095.741 7548.441 Output Total 580 910 Balance 216.964 319.441 Weight 63.503 kg 61.6 kg Intake: IV 640 1160 0.9% NaCl with KCl 40 Meq 300 /l 1,000 ml @ 100 mls/hr IV .Q10H [facility] Rx#: [id number] Amiodarone 300 mg In 250 Dextrose 5% in Water 250 ml @ 1 MG/MIN 50 mls/hr IV .Q5H [facility] Rx#:[id number] Calcium Gluconate 1 gm In 100 Sodium Chloride 0.9% 100 ml @ 100 mls/hr IVPB ONCE ONE Rx#:[id number] Potassium Chloride 10 meq 100 In Water For Injection 1 100ml.bag @ 100 mls/hr IVPB Q1HR [facility] Rx#: [id number] Potassium Chloride 20 meq 100 110 In Water For Injection 1 100ml.bag @ 50 mls/hr IVPB Q2H [facility] Rx#: [id number] Sodium Chloride 0.9% 1, 540 300 000 ml @ 60 mls/hr IV . [id number] [facility] Rx#:[id number] Intake, IV Titration 156.964 69.441 Amount propofoL 1,000 mg In 156.964 69.441 Empty Bag 1 bag @ Titrate IV .Q0M [facility] Rx#: [id number] Output: Urine 580 910 Other: Voiding Method Indwelling Catheter Indwelling Catheter - Labs CBC & Chem 7: 10/06/20 03:43 10/06/20 09:06 Labs: Abnormal Lab Results - Last 24 Hours (Table) 10/05/20 10/05/20 10/05/20 Range/Units 19:40 19:40 19:40 WBC 11.3 H (3.8-10.6) k/uL RBC (4.30-5.90) m/uL Hgb (13.0-17.5) gm/dL Hct (39.0-53.0) % Plt Count 524 H (150-450) k/uL ABG pH (7.35-7.45) ABG pCO2 (35-45) mmHg ABG pO2 (83-108) mmHg ABG HCO3 (21-25) mmol/L ABG Total CO2 (19-24) mmol/L ABG O2 Saturation (94-97) % Sodium 121 L (137-145) mmol/L Potassium 2.2 L* (3.5-5.1) mmol/L Chloride 63 L* (98-107) mmol/L Carbon Dioxide 37 H (22-30) mmol/L BUN 77 H (9-20) mg/dL Creatinine 3.01 H (0.66-1.25) mg/dL Glucose 171 H (74-99) mg/dL POC Glucose (mg/dL) (75-99) mg/dL Plasma Lactic Acid Dipesh 9.1 H* (0.7-2.0) mmol/L Ionized Calcium Yudy 3.6 L (4.5-5.3) mg/dL Magnesium 2.9 H (1.6-2.3) mg/dL AST 68 H (17-59) U/L ALT 57 H (4-49) U/L Troponin I (0.000-0.034) ng/mL Urine Protein (Negative) Urine Blood (Negative) Urine RBC (0-5) /hpf Urine Bacteria (None) /hpf Hyaline Casts (0-2) /lpf Urine Mucus (None) /hpf U Tricyclic Antidepress (NotDetected) U Marijuana (THC) Screen (NotDetected) 10/05/20 10/05/20 10/05/20 Range/Units 19:40 20:20 20:35 WBC (3.8-10.6) k/uL RBC (4.30-5.90) m/uL Hgb (13.0-17.5) gm/dL Hct (39.0-53.0) % Plt Count (150-450) k/uL ABG pH 7.58 H* (7.35-7.45) ABG pCO2 48 H (35-45) mmHg ABG pO2 335 H (83-108) mmHg ABG HCO3 44 H* (21-25) mmol/L ABG Total CO2 46 H (19-24) mmol/L ABG O2 Saturation 99.5 H (94-97) % Sodium (137-145) mmol/L Potassium (3.5-5.1) mmol/L Chloride (98-107) mmol/L Carbon Dioxide (22-30) mmol/L BUN (9-20) mg/dL Creatinine (0.66-1.25) mg/dL Glucose (74-99) mg/dL POC Glucose (mg/dL) (75-99) mg/dL Plasma Lactic Acid Dipesh (0.7-2.0) mmol/L Ionized Calcium Yudy (4.5-5.3) mg/dL Magnesium (1.6-2.3) mg/dL AST (17-59) U/L ALT (4-49) U/L Troponin I 0.074 H* (0.000-0.034) ng/mL Urine Protein 1+ H (Negative) Urine Blood Trace H (Negative) Urine RBC 11 H (0-5) /hpf Urine Bacteria Rare H (None) /hpf Hyaline Casts 4 H (0-2) /lpf Urine Mucus Rare H (None) /hpf U Tricyclic Antidepress (NotDetected) U Marijuana (THC) Screen (NotDetected) 10/05/20 10/05/20 10/06/20 Range/Units 20:50 22:13 03:43 WBC (3.8-10.6) k/uL RBC 4.22 L (4.30-5.90) m/uL Hgb 11.8 L (13.0-17.5) gm/dL Hct 36.1 L (39.0-53.0) % Plt Count (150-450) k/uL ABG pH (7.35-7.45) ABG pCO2 (35-45) mmHg ABG pO2 (83-108) mmHg ABG HCO3 (21-25) mmol/L ABG Total CO2 (19-24) mmol/L ABG O2 Saturation (94-97) % Sodium (137-145) mmol/L Potassium (3.5-5.1) mmol/L Chloride (98-107) mmol/L Carbon Dioxide (22-30) mmol/L BUN (9-20) mg/dL Creatinine (0.66-1.25) mg/dL Glucose (74-99) mg/dL POC Glucose (mg/dL) 138 H (75-99) mg/dL Plasma Lactic Acid Dipesh (0.7-2.0) mmol/L Ionized Calcium Yudy (4.5-5.3) mg/dL Magnesium (1.6-2.3) mg/dL AST (17-59) U/L ALT (4-49) U/L Troponin I (0.000-0.034) ng/mL Urine Protein (Negative) Urine Blood (Negative) Urine RBC (0-5) /hpf Urine Bacteria (None) /hpf Hyaline Casts (0-2) /lpf Urine Mucus (None) /hpf U Tricyclic Antidepress Detected H (NotDetected) U Marijuana (THC) Screen Detected H (NotDetected) 10/06/20 10/06/20 10/06/20 Range/Units 03:43 03:55 09:06 WBC (3.8-10.6) k/uL RBC (4.30-5.90) m/uL Hgb (13.0-17.5) gm/dL Hct (39.0-53.0) % Plt Count (150-450) k/uL ABG pH 7.68 H* (7.35-7.45) ABG pCO2 (35-45) mmHg ABG pO2 78 L (83-108) mmHg ABG HCO3 42 H* (21-25) mmol/L ABG Total CO2 43 H (19-24) mmol/L ABG O2 Saturation (94-97) % Sodium 122 L 123 L (137-145) mmol/L Potassium 2.8 L 2.0 L* (3.5-5.1) mmol/L Chloride 67 L* 68 L* (98-107) mmol/L Carbon Dioxide 41 H* 40 H (22-30) mmol/L BUN 75 H 73 H (9-20) mg/dL Creatinine 3.10 H 2.91 H (0.66-1.25) mg/dL Glucose 117 H 125 H (74-99) mg/dL POC Glucose (mg/dL) (75-99) mg/dL Plasma Lactic Acid Dipesh (0.7-2.0) mmol/L Ionized Calcium Yudy 3.5 L* (4.5-5.3) mg/dL Magnesium 2.8 H (1.6-2.3) mg/dL AST 62 H (17-59) U/L ALT (4-49) U/L Troponin I (0.000-0.034) ng/mL Urine Protein (Negative) Urine Blood (Negative) Urine RBC (0-5) /hpf Urine Bacteria (None) /hpf Hyaline Casts (0-2) /lpf Urine Mucus (None) /hpf U Tricyclic Antidepress (NotDetected) U Marijuana (THC) Screen (NotDetected) Microbiology - Last 24 Hours (Table) 10/05/20 22:36 Gram Stain - Preliminary Sputum Sputum Culture - Preliminary
[2020-10-06] MEDS ORDERED: IPRATROPIUM-ALBUTEROL 3 ML NEB INHALATION PRN (15:45)
[2020-10-06] MEDS: IPRATROPIUM-ALBUTEROL 3 ML NEB INHALATION SCH ×2 (16:23→19:55)
--- NOTE | 2020-10-06 16:33 | P.CRDCN ---
History of Present Illness Consult date: 10/06/20 History of present illness: This is a 70-year-old gentleman with history of nonischemic heart myopathy and chronic CHF and renal failure who was brought to the emergency room after patient had an episode of loss of consciousness. There apparently was some seizure activity associated with it. There is also history that patient did not have any pulse for about 5-10 minutes. Patient received CPR. According to paramedics, Patient had episodes of V. tach for which he converted spontaneously to sinus rhythm. His EKG on admission showed diffuse ST-T changes without any ST elevation. Patient recently had a cardiac catheterization was found to have noncritical disease involving the LAD. He has chronic renal failure with creatinines are around 3. Admission his electrolytes are severely deranged with severe hypokalemia and also hyponatremia. His creatinine is high. Patient is intubated and has been on ventilator. His pupils are dilated slightly suggested reactive. No other purposeful movements. Patient has had a recurrence bouts of V. tach during the night. Patient was started on IV potassium replacement, IV amiodarone and also lidocaine. He is also on ibuprofen fall. Overall his prognosis seemed to be guarded. Patient also had some flipped activity and is being started on Keppra. Seen by a neurologist who felt that patient might have had seizure activity. Computed tomography scan of the brain is within normal limits except some atrophy. At this point we'll continue with replacement potassium and correct it. Continued antiarrhythmic medications. Continue the recommendations of senior government program analyst underwent neurologist. Prognosis is poor. Patient's ejection fraction the past has been in the range of 20-25%. Chest x-ray showed some chronic infiltrate without any significant new changes. Review of Systems Not obtained Past Medical History Past Medical History: Cancer, COPD, GERD/Reflux, Hyperlipidemia, Hypertension, Prostate Disorder Additional Past Medical History / Comment(s): cancerous polyp,enlarged prostate,HEMORRHOIDS, BLOOD IN STOOL, RESTLESS LEG - intermittent, colon Cancer History of Any Multi-Drug Resistant Organisms: None Reported Past Surgical History: Appendectomy, Orthopedic Surgery Additional Past Surgical History / Comment(s): ACL SX RT KNEE X3, LEFT HEEL FUSION, LEFT ARM BICEP SX, NASAL SX R/T ULCER, colon resection, COLONOSCOPY, Past Anesthesia/Blood Transfusion Reactions: No Reported Reaction Past Psychological History: Anxiety, Depression Smoking Status: Former smoker Past Alcohol Use History: None Reported Past Drug Use History: None Reported - Past Family History Mother Family Medical History: Cancer Additional Family Medical History / Comment(s): BREAST Sister(s) Family Medical History: Deep Vein Thrombosis (DVT) Father Family Medical History: COPD Additional Family Medical History / Comment(s): FROM CARDIAC ARREST Medications and Allergies Home Medications Medication Instructions Recorded Confirmed Type Amitriptyline HCl [Elavil] 100 mg PO HS 06/04/16 10/05/20 History Cholecalciferol [Vitamin D3 (25 1,000 unit PO DAILY 06/04/16 10/05/20 History Mcg = 1000 Iu)] Mirtazapine [Remeron] 45 mg PO HS 06/04/16 10/05/20 History Tamsulosin [Flomax] 0.4 mg PO DAILY 06/04/16 10/05/20 History clonazePAM [KlonoPIN] 1 mg PO BID 06/04/16 10/05/20 History Albuterol Inhaler [Ventolin Hfa 1 puff INHALATION RT-QID PRN 06/08/20 10/05/20 History Inhaler] Budesonide/Formoterol Fumarate 2 puff INHALATION RT-BID 06/08/20 10/05/20 History [Symbicort 160-4.5 Mcg Inhaler] Docusate [Colace] 200 mg PO DAILY 06/08/20 10/05/20 History Famotidine [Pepcid] 20 mg PO BID PRN 06/08/20 10/05/20 History Melatonin 3 mg PO HS 06/08/20 10/05/20 History Multivitamins, Thera [Multivitamin 1 tab PO DAILY 06/08/20 10/05/20 History (formulary)] Aspirin 81 mg PO DAILY #30 chew 06/13/20 10/05/20 Rx Ipratropium-Albuterol Nebulize 3 ml INHALATION RT-Q4H #300 ml 09/09/20 10/05/20 Rx [Duoneb 0.5 mg-3 mg/3 ml Soln] Nitroglycerin Sl Tabs [Nitrostat] 0.4 mg SUBLINGUAL Q5M PRN #20 tab 09/09/20 10/05/20 Rx carvediloL [Coreg*] 12.5 mg PO BID-W/MEALS #60 tab 09/09/20 10/05/20 Rx Atorvastatin [Lipitor] 20 mg PO HS #30 tab 09/23/20 10/05/20 Rx Furosemide [Lasix] 60 mg PO BID #60 tab 09/23/20 10/05/20 Rx Isosorbide Mononitrate ER [Imdur] 30 mg PO DAILY #30 tab.er.24h 09/23/20 10/05/20 Rx hydrALAZINE HCL [Apresoline] 50 mg PO TID #90 tab 09/23/20 10/05/20 Rx metOLazone [Zaroxolyn] 2.5 mg PO DAILY #30 tab 09/23/20 10/05/20 Rx Allergies Allergy/AdvReac Type Severity Reaction Status Date / Time lisinopril Allergy swollen Verified 10/05/20 21:11 testicle,rash morphine AdvReac Nausea & Verified 10/05/20 21:11 Vomiting Physical Exam Vitals: Vital Signs Temp Pulse Pulse Resp BP BP Pulse Ox 10/06/20 14:15 142/94 10/06/20 14:00 147/92 10/06/20 13:30 143/88 10/06/20 13:07 56 L 20 147/90 10/06/20 12:30 57 L 20 152/90 99 10/06/20 12:15 56 L 20 150/93 99 10/06/20 12:00 97.7 F 55 L 20 148/87 99 10/06/20 11:45 51 L 20 140/84 99 10/06/20 11:30 50 L 20 136/84 98 10/06/20 11:15 51 L 20 138/80 96 10/06/20 11:00 53 L 20 138/84 96 10/06/20 10:45 52 L 20 139/77 95 10/06/20 10:30 50 L 20 132/71 95 10/06/20 10:15 50 L 20 132/76 96 10/06/20 10:00 49 L 20 125/73 96 10/06/20 09:45 49 L 20 144/69 96 10/06/20 09:30 50 L 20 124/75 97 10/06/20 09:15 50 L 20 122/72 97 10/06/20 09:00 50 L 20 102/62 97 10/06/20 08:45 49 L 20 113/68 96 10/06/20 08:30 49 L 20 107/65 95 10/06/20 08:15 49 L 20 104/63 95 10/06/20 08:00 98.3 F 49 L 20 124/69 96 10/06/20 07:45 52 L 20 134/75 99 10/06/20 07:00 54 L 20 104/62 94 L 10/06/20 06:30 53 L 20 122/65 94 L 10/06/20 06:00 55 L 21 124/71 95 10/06/20 05:30 51 L 20 122/66 95 10/06/20 05:00 52 L 20 115/67 96 10/06/20 04:30 51 L 20 116/69 96 10/06/20 04:00 97.6 F 52 L 20 116/75 96 10/06/20 03:30 52 L 13 93/59 97 10/06/20 03:00 51 L 20 111/68 98 10/06/20 02:30 50 L 20 123/72 98 10/06/20 02:00 49 L 20 100/63 98 10/06/20 01:30 50 L 20 100/64 98 10/06/20 01:00 50 L 20 110/69 99 10/06/20 00:30 53 L 20 112/71 98 10/06/20 00:00 97.5 F L 52 L 20 122/70 97 10/05/20 23:30 50 L 20 135/74 95 10/05/20 23:00 58 L 20 145/85 96 10/05/20 22:30 60 20 202/92 96 10/05/20 22:09 97.6 F 64 11 L 10/05/20 22:00 60 20 132/78 100 10/05/20 21:00 60 20 101/62 100 10/05/20 20:45 74 18 113/67 100 10/05/20 20:30 74 20 138/73 100 10/05/20 19:45 61 12 189/67 97 10/05/20 19:42 98 F 67 10 L 137/81 94 L Intake and Output 10/06/20 10/06/20 10/06/20 06:59 14:59 22:59 Intake Total 742.879 4919.441 200 Output Total 500 910 60 Balance 216.007 319.441 140 Intake: IV 580 1160 200 0.9% NaCl with KCl 40 Meq 300 100 /l 1,000 ml @ 100 mls/hr IV .Q10H [facility] Rx#: [id number] Amiodarone 300 mg In 250 Dextrose 5% in Water 250 ml @ 1 MG/MIN 50 mls/hr IV .Q5H [facility] Rx#:[id number] Calcium Gluconate 1 gm In 100 Sodium Chloride 0.9% 100 ml @ 100 mls/hr IVPB ONCE ONE Rx#:[id number] Potassium Chloride 10 meq 100 In Water For Injection 1 100ml.bag @ 100 mls/hr IVPB Q1HR [facility] Rx#: [id number] Potassium Chloride 20 meq 100 110 100 In Water For Injection 1 100ml.bag @ 50 mls/hr IVPB Q2H [facility] Rx#: [id number] Sodium Chloride 0.9% 1, 480 300 000 ml @ 60 mls/hr IV . [id number] [facility] Rx#:[id number] Intake, IV Titration 136.007 69.441 Amount propofoL 1,000 mg In 136.007 69.441 Empty Bag 1 bag @ Titrate IV .Q0M [facility] Rx#: [id number] Output: Urine 500 910 60 Other: Voiding Method Indwelling Catheter Indwelling Catheter Weight 61.6 kg GENERAL EXAM: Patient is intubated and sedated. Pupils are dilated but reactive. HEENT: Normocephalic. Normal reaction of pupils, equal size, normal range of extraocular motion. No erythema or exudates in the throat. NECK: No masses, no nuchal rigidity. CHEST: No chest wall deformity. LUNGS: Diminished breath sounds HEART: S1 and S2 normal ABDOMEN: No hepatosplenomegaly, normal bowel sounds, no guarding or rigidity. SKIN: No rashes CENTRAL NERVOUS SYSTEM: As per neurology EXTREMITIES: No cyanosis, clubbing or edema. Results 10/06/20 03:43 10/06/20 09:06 Cardiac Enzymes 10/05/20 10/05/20 10/06/20 Range/Units 19:40 19:40 03:43 AST 68 H 62 H (17-59) U/L Troponin I 0.074 H* (0.000-0.034) ng/mL Coagulation 10/05/20 Range/Units 19:40 PT 10.4 (9.0-12.0) sec APTT 25.2 (22.0-30.0) sec CBC 10/05/20 10/06/20 Range/Units 19:40 03:43 WBC 11.3 H 10.1 (3.8-10.6) k/uL RBC 4.73 4.22 L (4.30-5.90) m/uL Hgb 13.3 11.8 L (13.0-17.5) gm/dL Hct 41.1 36.1 L (39.0-53.0) % Plt Count 524 H 441 (150-450) k/uL Comprehensive Metabolic Panel 10/05/20 10/06/20 10/06/20 Range/Units 19:40 03:43 09:06 Sodium 121 L 122 L 123 L (137-145) mmol/L Potassium 2.2 L* 2.8 L 2.0 L* (3.5-5.1) mmol/L Chloride 63 L* 67 L* 68 L* (98-107) mmol/L Carbon Dioxide 37 H 41 H* 40 H (22-30) mmol/L BUN 77 H 75 H 73 H (9-20) mg/dL Creatinine 3.01 H 3.10 H 2.91 H (0.66-1.25) mg/dL Glucose 171 H 117 H 125 H (74-99) mg/dL Calcium 9.3 8.8 9.3 (8.4-10.2) mg/dL AST 68 H 62 H (17-59) U/L ALT 57 H 49 (4-49) U/L Alkaline Phosphatase 113 103 (38-126) U/L Total Protein 7.2 6.5 (6.3-8.2) g/dL Albumin 4.3 3.9 (3.5-5.0) g/dL Current Medications Generic Name Dose Route Start Last Admin Trade Name Freq PRN Reason Stop Dose Admin Acetaminophen 650 mg 10/05/20 20:21 Acetaminophen Suppository 650 Mg Supp RECTAL Q4HR PRN Fever And/ Or Mild Pain Albuterol/Ipratropium 3 ml 10/06/20 16:00 10/06/20 16:23 Ipratropium-Albuterol 3 Ml Neb INHALATION 3 ml RT-Q4H [facility] Administration Albuterol/Ipratropium 3 ml 10/06/20 15:45 Ipratropium-Albuterol 3 Ml Neb INHALATION RT-Q2H PRN Shortness Of Breath Or Wheezing Chlorhexidine Gluconate 15 ml 10/05/20 23:15 10/06/20 10:31 Chlorhexidine Gluconate 15 Ml Cup MUCOUS MEM 15 ml BID [facility] Administration Heparin Sodium (Porcine) 5,000 unit 10/06/20 08:00 10/06/20 15:33 Heparin Sodium,Porcine 5,000 Unit/Ml 1 Ml Vial SQ 5,000 unit Q8HR [facility] Administration Hydralazine HCl 50 mg 10/05/20 22:45 10/06/20 16:23 Hydralazine Hcl 50 Mg Tab PO Not Given TID [facility] Propofol 1,000 mg/ IV Solution 100 mls @ 0 mls/hr 10/05/20 22:30 10/06/20 11:19 IV 45 mcg/kg/min .Q0M [facility] 17.146 mls/hr Administration Protocol Titrate Lidocaine HCl/Dextrose 2,000 250 mls @ 7.5 mls/hr 10/06/20 07:45 10/06/20 08:38 mg/ IV Solution IV 1 mg/min .Q24H [facility] 7.5 mls/hr Administration 1 MG/MIN Potassium Chloride/Sodium Chloride 1,000 mls @ 100 mls/hr 10/06/20 11:00 10/06/20 10:50 Ns-Kcl 40 Meq/L Iv Solution IV 100 mls/hr .Q10H [facility] Administration Potassium Chloride 20 meq/ IV 100 mls @ 50 mls/hr 10/06/20 11:30 10/06/20 15:33 Solution IVPB 10/06/20 17:29 50 mls/hr Q2H [facility] Administration Potassium Chloride 10 meq/ IV 100 mls @ 100 mls/hr 10/06/20 18:00 Solution IVPB 10/06/20 18:59 ONCE ONE Protocol Amiodarone HCl 300 mg/ 250 mls @ 25 mls/hr 10/06/20 17:03 10/06/20 14:14 Dextrose/Water IV 10/07/20 11:02 0.5 mg/min .Q10H [facility] 25 mls/hr Administration Protocol 0.5 MG/MIN Miscellaneous Information 1 each 10/06/20 10:06 Potassium Replacement Protocol 1 Each Misc MISCELLANE DAILY PRN Per Protocol Protocol Naloxone HCl 0.2 mg 10/05/20 20:21 Naloxone 0.4 Mg/Ml 1 Ml Vial IV Q2M PRN Opioid Reversal Thiamine HCl 100 mg 10/06/20 09:00 10/06/20 10:31 Thiamine 100 Mg/Ml 2 Ml Vial IVP 100 mg DAILY [facility] Administration Intake and Output 10/06/20 10/06/20 10/06/20 06:59 14:59 22:59 Intake Total 226.631 3595.441 200 Output Total 500 910 60 Balance 216.007 319.441 140 Intake: IV 580 1160 200 0.9% NaCl with KCl 40 Meq 300 100 /l 1,000 ml @ 100 mls/hr IV .Q10H [facility] Rx#: [id number] Amiodarone 300 mg In 250 Dextrose 5% in Water 250 ml @ 1 MG/MIN 50 mls/hr IV .Q5H [facility] Rx#:[id number] Calcium Gluconate 1 gm In 100 Sodium Chloride 0.9% 100 ml @ 100 mls/hr IVPB ONCE ONE Rx#:[id number] Potassium Chloride 10 meq 100 In Water For Injection 1 100ml.bag @ 100 mls/hr IVPB Q1HR [facility] Rx#: [id number] Potassium Chloride 20 meq 100 110 100 In Water For Injection 1 100ml.bag @ 50 mls/hr IVPB Q2H [facility] Rx#: [id number] Sodium Chloride 0.9% 1, 480 300 000 ml @ 60 mls/hr IV . [id number] [facility] Rx#:[id number] Intake, IV Titration 136.007 69.441 Amount propofoL 1,000 mg In 136.007 69.441 Empty Bag 1 bag @ Titrate IV .Q0M [facility] Rx#: [id number] Output: Urine 500 910 60 Other: Voiding Method Indwelling Catheter Indwelling Catheter Weight 61.6 kg Patient Weight 10/07/20 06:59 Weight 61.6 kg 10/06/20 03:43 10/06/20 09:06 EKG Interpretations (text) Sinus rhythm with diffuse ST-T changes Assessment and Plan (1) Chronic systolic CHF (congestive heart failure) Current Visit: Yes Status: Acute Code(s): I50.22 - CHRONIC SYSTOLIC (CONGESTIVE) HEART FAILURE SNOMED Code(s): 753238695 (2) Cardiac arrest Current Visit: Yes Status: Acute Code(s): I46.9 - CARDIAC ARREST, CAUSE UNSPECIFIED SNOMED Code(s): 693269614 (3) Acute respiratory failure Current Visit: No Status: Acute Code(s): J96.00 - ACUTE RESPIRATORY FAILURE, UNSP W HYPOXIA OR HYPERCAPNIA SNOMED Code(s): 46357425 (4) Chronic renal failure Current Visit: No Status: Acute Code(s): N18.9 - CHRONIC KIDNEY DISEASE, UNSPECIFIED SNOMED Code(s): 52437370 (5) Nonischemic cardiomyopathy Current Visit: Yes Status: Acute Code(s): I42.8 - OTHER CARDIOMYOPATHIES SNOMED Code(s): 25362968 (6) Seizure-like activity Current Visit: Yes Status: Acute Code(s): R56.9 - UNSPECIFIED CONVULSIONS SNOMED Code(s): 112990632 Plan: Continue current medical therapy. Electrolytic imbalance including hyponatremia. Continue to monitor his neurological status. Overall prognosis is poor
[2020-10-06] MEDS ORDERED: AMIODARONE 300 MG in DEXTROSE 5% IN WATER 250 ML IV SCH ×2 (17:03)
[2020-10-06] MEDS ORDERED: POTASSIUM CHLORIDE 10 MEQ in WATER FOR INJECTION 1 100ML.BAG IVPB ONE (18:00)
[2020-10-06 18:06] LABS: Calcium 8.1 mg/dL (8.4-10.2); Magnesium 2.5 mg/dL (1.6-2.3); Potassium 4.7 mmol/L (3.5-5.1)
[2020-10-06] MEDS: SODIUM CHLORIDE 0.9% 1,000 ML IV SCH (18:24)
--- NOTE | 2020-10-06 19:27 | EEG ---
ELECTROENCEPHALOGRAM REPORT DATE OF SERVICE: 10/06/2020 CLINICAL HISTORY: This is a 70-year-old gentleman who presented to the emergency department on 10/05/2020 after a cardiac arrest lasting 5-10 minutes. There was a questionable seizure- like activity. The video EEG was obtained to evaluate for seizure and epileptiform activity. RELEVANT MEDICATION: Patient is on IV propofol drip. The patient received Keppra 1 g in the ED. EEG TYPE: A routine 21 channel EEG was performed with video using the 10/20 electrode placement system. DESCRIPTION: The patient is intubated on a ventilator and is on IV sedation. During awake state, there is no posterior dominant rhythm. The background consists of [id number] voltage of 3-4 hertz non-rhythmic delta activity and sometimes intermixed with theta activity. There is also suppression state lasting 1-2 seconds. There was no physiological stage 2 sleep seen. There are excessive fast activity seen during this study. INTERICTAL AND ICTAL: None. ACTIVATION PROCEDURE: Photic stimulation did not evoke a posterior driving response over the bilateral hemisphere. Hyperventilation was not performed. CLINICAL INTERPRETATION: This is an abnormal routine EEG. The burst suppression is seen and is likely due to medication effect (sedation). The background slowing is consistent of moderate to severe encephalopathy, likely due to medication effect. There are no focal slowing, epileptiform discharges or seizures seen that during the study. The excessive fast activity is likely due to medication effect. Clinical correlation is recommended. ROSEMARIE / SILVANON: [id number] / [id number]
--- NOTE | 2020-10-06 22:32 | CONS ---
CONSULTATION PULMONARY/CRITICAL CARE CONSULTATION: DATE OF SERVICE: October 06, 2020 REASON FOR CONSULTATION: ICU management, status post cardiac arrest. HISTORY OF PRESENT ILLNESS: This is a patient who apparently had an [id number] cardiopulmonary arrest. The patient had bystander CPR. The down time was about 5 or 10 minutes. He was intubated at the scene by EMS. He apparently has a very low ejection fraction of only 20%. Anyway, he was brought into the emergency room where he was further evaluated and transferred up to the ICU. He was actually seen in the emergency room on October 05 at 19:40. He remains on the volume assist-control mode rate of 20, tidal volume 450, FiO2 of 50%, PEEP of 5, blood gases show pO2 of 77, pCO2 of 36 and a pH of 7.68. These blood gases consistent with normoxemia and severe metabolic alkalosis. The patient is on amiodarone at 1 mg/minute, lidocaine at 1 per minute, Diprivan at 50 mcg/kg per minute and saline at 100 mL an hour. The patient is not yet getting tube feeds. That will be started today. He has been in and out of ventricular tachycardia. Brain CT was negative. In addition, he has a history of nonischemic cardiomyopathy, ejection fraction 20%, stage 3 chronic kidney disease, COPD, hypertension, and hyperlipidemia. 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 CURRENT HOME MEDICATIONS: Included Elavil, vitamin D3, Remeron, Flomax, Klonopin, albuterol inhaler, Symbicort, Colace, Pepcid, melatonin, multivitamins, aspirin, DuoNeb, sublingual nitroglycerin tablets, Coreg, Lipitor, Lasix, Imdur, Apresoline and Zaroxolyn. ALLERGIES: LISINOPRIL and MORPHINE. MEDICAL HISTORY: Reviewed. He has a history of enlarged prostate, hemorrhoids, melanotic stools, restless legs syndrome, colon cancer, COPD, GERD, hyperlipidemia, and essential hypertension. SURGICAL HISTORY: Includes among other things appendectomy, ACL surgery, right knee x3, left heel fusion, left arm biceps surgery, nasal surgery, colon resection, and colonoscopy. SOCIAL HISTORY: Positive for previous tobacco use. Denies any alcohol or illicit drug use. FAMILY HISTORY: Positive for mother with breast cancer and a sister with DVT and a father with COPD, who from a cardiac arrest. REVIEW OF SYSTEMS: Cannot be obtained as the patient is currently intubated. PHYSICAL EXAMINATION: VITAL SIGNS: Current vital signs include a temperature 97.7, heart rate 56, respiratory rate 20, blood pressure 122/94 with a mean of 110. Saturations are in the mid 90s. GENERAL: Appears in no acute distress, currently sedated. HEENT: Examination is grossly unremarkable. He has an orally placed endotracheal tube and NG tube. NECK: Supple. Full range of motion. No adenopathy. Neck veins are flat. CARDIOVASCULAR: Examination reveals regular rhythm rate. Heart rate about mid 50s. S1, S2 normal. Heart sounds are distant. LUNGS: Reveal mostly clear breath sounds. A few scattered rhonchi. No wheezes or crackles. ABDOMEN: Soft. No bowel sounds. EXTREMITIES are intact. No edema. SKIN: Without rash. NEUROLOGIC: Examination cannot be adequately assessed. CURRENT LAB DATA: Includes a white count 10.1, hemoglobin 11.8, hematocrit 36.1, platelet count 441,000, blood gases have been noted. Sodium 123, potassium 2, chloride 68, CO2 40, anion gap is 15, BUN and creatinine were 73 and 2.91. Ionized calcium 3.5, total bilirubin 0.6, magnesium 2.8, albumin 3.9. Ammonia level is 11. Urine osmolarity is 300. Microbiology is currently pending or negative. The most recent chest x-ray shows endotracheal tube which is sort of aiming toward the right mainstem. I have asked the respiratory therapist to pull it back about a cm or cm and one half. Brain CT shows nothing acute. Current medications are reviewed. In addition to the amiodarone, lidocaine, and Diprivan, the patient is on Tylenol, chlorhexidine, heparin, hydralazine, Narcan, potassium replacement, propofol and thiamine. ASSESSMENT: 1. Aei-mv-chuxkthd cardiopulmonary arrest with cardiopulmonary resuscitation and return of spontaneous circulation. Down time about 5-10 minutes. The patient was intubated by EMS at the scene. 2. Rule out anoxic brain injury. 3. Ventricular tachycardia, currently on lidocaine and amiodarone. 4. Normal brain CT. 5. History of nonischemic cardiomyopathy with ejection fraction of 20%. 6. Stage 3 chronic kidney disease. 7. Chronic obstructive pulmonary disease. 8. History of hyperlipidemia. 9. History of hypertension. 10.Severe metabolic alkalosis. 11.History of colon cancer, status post colon resection. 12.Benign prostatic hypertrophy. 13.History of restless legs syndrome. PLAN: Currently, the patient's medications are reviewed. Unnecessary medications are discontinued. We will start the patient on tube feeds. I have asked the nurses get the potassium up to 4 to 4-1/2 to correct a metabolic alkalosis. Additional recommendations and suggestions are forthcoming. No additional vent changes at this time. Overall prognosis remains very guarded. The patient is on amiodarone and lidocaine for ventricular tachycardia. Brain CT showed some atrophy. No additional recommendations are made at this time. Prognosis is poor. MMODL / IJN: [id number] /
[2020-10-07] MEDS: IPRATROPIUM-ALBUTEROL 3 ML NEB INHALATION SCH ×6 (00:05→20:41)
[2020-10-07 01:30] LABS: Calcium 9.2 mg/dL (8.4-10.2); Potassium 4.1 mmol/L (3.5-5.1)
[2020-10-07 04:36] LABS: ABG Base Excess 12.5 mmol/L; ABG HCO3 36 mmol/L (21-25); ABG Oxygen Saturation 97.1 % (94-97); ABG PCO2 46 mmHg (35-45); ABG PO2 80 mmHg (83-108); ABG TCO2 37 mmol/L (19-24); Allen Test Performed? Yes
[2020-10-07 05:11] LABS: Albumin 3.4 g/dL (3.5-5.0); Calcium 8.7 mg/dL (8.4-10.2); Magnesium 2.6 mg/dL (1.6-2.3); Total Bilirubin 0.5 mg/dL (0.2-1.3); Total Protein 5.9 g/dL (6.3-8.2)
[2020-10-07 05:21] LABS: Ionized Calcium 4.1 mg/dL (4.5-5.3)
[2020-10-07] MEDS: SODIUM CHLORIDE 0.9% 1,000 ML IV SCH ×2 (05:25→14:10)
[2020-10-07 05:28] LABS: Basophils # (A) 0.1 k/uL (0-0.2); Basophils % (A) 1 %; Eosinophils # (A) 0.3 k/uL (0-0.7); Eosinophils % (A) 2 %; HCT 33.7 % (39.0-53.0); HGB 11.2 gm/dL (13.0-17.5); Lymphocytes # (A) 1.3 k/uL (1.0-4.8); Lymphocytes % (A) 10 %; MCH 29.2 pg (25.0-35.0); MCHC 33.3 g/dL (31.0-37.0); MCV 87.8 fL (80.0-100.0); Mean Platelet Volume 6.9; Monocytes # (A) 0.6 k/uL (0-1.0); Monocytes % (A) 5 %; Neutrophils # (A) 10.3 k/uL (1.3-7.7); Neutrophils % (A) 82 %; Platelet Count 354 k/uL (150-450); RBC 3.84 m/uL (4.30-5.90); RDW 14.7 % (11.5-15.5); WBC 12.6 k/uL (3.8-10.6)
[2020-10-07] MEDS: POTASSIUM CHLORIDE 10 MEQ in WATER FOR INJECTION 1 100ML.BAG IVPB SCH ×10 (06:05→19:20)
[2020-10-07] MEDS ORDERED: CALCIUM GLUCONATE 1 GM in SODIUM CHLORIDE 0.9% 100 ML IVPB ONE (07:00)
--- NOTE | 2020-10-07 08:17 | XR ---
EXAMINATION TYPE: XR chest 1V portable DATE OF EXAM: 10/07/2020 COMPARISON: Prior chest x-ray 10/06/2020 HISTORY: Intubated TECHNIQUE: Single frontal view of the chest is obtained. FINDINGS: Endotracheal tube and NG tube are overlying appropriate positions. There is no evident pne umothorax or pleural effusion. Cardiac mediastinal silhouette, pulmonary vascularity and lilliana are unc hanged accounting for differences in technique. The aorta is dense. There are overlying artifacts. No evident pneumonia. Suspect some basilar atelectatic changes are present. Interstitium mildly increas ed as on prior. IMPRESSION: Probable subsegmental basilar atelectatic changes. Endotracheal tube has been reposition ed.
[2020-10-07] MEDS: CHLORHEXIDINE GLUCONATE 15 ML CUP MUCOUS MEM SCH ×2 (08:36→20:21)
[2020-10-07] MEDS: hydrALAZINE HCL 50 MG TAB PO SCH ×3 (08:36→21:09)
[2020-10-07] MEDS: THIAMINE 100 MG/ML 2 ML VIAL IVP SCH (08:36)
[2020-10-07] MEDS: HEPARIN SODIUM,PORCINE 5,000 UNIT/ML 1 ML VIAL SQ SCH ×3 (08:36→23:39)
[2020-10-07] MEDS: LIDOCAINE-D5W PMX 2G/250ML 2,000 MG in DEXTROSE/WATER 1 250ML.BAG IV SCH (08:45)
--- NOTE | 2020-10-07 11:40 | PN ---
PROGRESS NOTE PULMONARY/CRITICAL CARE PROGRESS NOTE: DATE OF SERVICE: 10/07/2020 Critical care time 33 minutes. This is a patient who we saw yesterday in consultation. He had an kao-aq-[id number] cardiopulmonary arrest. He had bystander CPR and he had a down time of about 10 minutes or so. He was intubated by EMS at the scene. He apparently carries with him a diagnosis of severe cardiomyopathy with an ejection fraction of 20%, among other things. Anyway, the patient remains on mechanical ventilator. His settings include the volume assist-control mode, rate of 20, tidal volume 450, FiO2 of 50%, PEEP of 5. Blood gases show pO2 of 80, pCO2 of 46 and a pH of 7.5. He is on lidocaine at 1 mg/minute, 0.9 at 100 mL an hour, Diprivan at 25 mcg/minute and Vital high- protein at 20 with a goal of 46 mL an hour. We plan on putting lines in this patient later today. Currently, the patient is quite agitated. Vital signs include temperature 99 degrees, heart rate 82, respiratory rate 20, blood pressure 185/86 mean 119, saturations are 95%. Appears in no acute distress. Currently, sedated. He has got an orally placed endotracheal tube and NG tube. HEENT: Examination is grossly unremarkable. NECK: Supple, full range of motion. No adenopathy or thyromegaly. Neck veins are flat. CARDIOVASCULAR: Examination reveals regular rhythm and rate. Heart rate 82 beats per minute. S1, S2 normal. LUNGS: Reveal diffuse coarse rhonchi. Breath sounds equal. ABDOMEN: Soft. EXTREMITIES Intact. No cyanosis, clubbing, or edema. SKIN: Without rash. NEUROLOGIC: Examination is difficult to assess given his current level of sedation. LABS: Reviewed. White count 12.6, hemoglobin 11.2, hematocrit 33.7, platelet count 354,000. Blood gases show a pO2 of 80, pCO2 46 and pH is 7.5. These blood gases consistent with normoxemia and metabolic alkalosis. Sodium 126, potassium 3, chloride 83, CO2 is 33, anion gap is 10, BUN and creatinine were 63 and 2.59. The rest of the labs look okay. Microbiology is currently negative for pending. A chest x-ray done today shows evidence of some basilar atelectatic changes. Endotracheal tube is in good position. All in all, the chest x-ray is not that bad. CURRENT MEDICATIONS: Reviewed. The patient is currently on Tylenol, chlorhexidine, heparin subcu, Apresoline, DuoNeb, lidocaine, Narcan, potassium replacement, propofol, saline IV, and thiamine. ASSESSMENT: 1. Woy-ak-kilsjgjx cardiopulmonary arrest with cardiopulmonary resuscitation and eventual return of spontaneous circulation. Down time about 5-10 minutes. The patient was intubated by EMS at the scene. 2. Hypoxemic respiratory failure, requiring intubation and mechanical ventilation on October 05, 2020. 3. Rule out anoxic brain injury. 4. Ventricular tachycardia, currently on lidocaine. 5. Normal brain CT. 6. History of nonischemic cardiomyopathy with ejection fraction of 20%. 7. Stage 3 chronic kidney disease. 8. 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 9. History of hyperlipidemia. 10.History of hypertension. 11.Severe metabolic alkalosis, improved. 12.History of colon cancer, status post colon resection. 13.Benign prostatic hypertrophy. 14.History of restless legs syndrome. PLAN: The patient is likely not ready for extubation. He was very agitated today off the propofol. The patient will be re-sedated. The patient will have an art line and central line placed today. Additional recommendations and suggestions are forthcoming. The patient remains on Vital high-protein. The patient is also on propofol and lidocaine at 1 mg/minute. Will continue to follow. Blood gases are reasonable say for the metabolic alkalosis. Critical care time 33 minutes. MMODL / SILVANON: [id number] / MTDD
--- NOTE | 2020-10-07 11:52 | P.PN ---
Subjective Progress Note Date: 10/07/20 This is a 70-year-old gentleman with history of nonischemic cardiomyopathy, chronic congestive heart failure, renal failure, who was brought to the hospital after an episode of loss of consciousness. Patient did receive CPR according to the paramedics, he had an episode of ventricular tachycardia for which she converted spontaneously to normal sinus rhythm. His EKG on presentation here showed diffuse ST-T changes without any ST elevation. He recently underwent a cardiac catheterization and was found to have noncritical disease involving the LAD. He has chronic renal failure. And is currently intubated in the intensive care unit. He was more agitated earlier this morning, at the time of her examination he seemed to be more calm. Patient was having bouts of ventricular tachycardia and was initiated on IV amiodarone as well as slide oh. The IV amiodarone had been discontinued because of some junctional rhythm, this morning he continues to be on lidocaine. No further episodes of ventricular tachycardia noted and the patient is currently in a sinus rhythm to sinus tachycardia this morning. This documented ejection fraction in the past has been 20-25%, his chest x-ray showed some chronic infiltrate without any significant new changes. We'll discontinue the IV lidocaine today and start the patient on oral amiodarone. Objective - Vital Signs Vital signs: Vital Signs Temp 99.0 F 10/07/20 08:00 Pulse 79 10/07/20 11:00 Resp 20 10/07/20 11:00 BP 167/81 10/07/20 11:00 Pulse Ox 95 10/07/20 11:00 Intake & Output 10/06/20 10/07/20 10/07/20 18:59 06:59 18:59 Intake Total 2019.441 1407.759 3138.875 Output Total 1160 1380 465 Balance 859.441 193.119 705.875 Weight 61.6 kg 64 kg Intake: IV 1850 1200 900 0.9% NaCl with KCl 40 Meq 700 1200 100 /l 1,000 ml @ 100 mls/hr IV .Q10H [facility] Rx#: [id number] Amiodarone 300 mg In 250 Dextrose 5% in Water 250 ml @ 1 MG/MIN 50 mls/hr IV .Q5H [facility] Rx#:[id number] Calcium Gluconate 1 gm In 100 Sodium Chloride 0.9% 100 ml @ 100 mls/hr IVPB ONCE ONE Rx#:[id number] Calcium Gluconate 1 gm In 100 Sodium Chloride 0.9% 100 ml @ 100 mls/hr IVPB ONCE ONE Rx#:[id number] Potassium Chloride 10 meq 100 300 In Water For Injection 1 100ml.bag @ 100 mls/hr IVPB Q1HR [facility] Rx#: [id number] Potassium Chloride 20 meq 400 In Water For Injection 1 100ml.bag @ 50 mls/hr IVPB Q2H [facility] Rx#: [id number] Sodium Chloride 0.9% 1, 400 000 ml @ 100 mls/hr IV . Q10H [facility] Rx#:[id number] Sodium Chloride 0.9% 1, 300 000 ml @ 60 mls/hr IV . [id number] [facility] Rx#:[id number] Intake, IV Titration 169.441 173.119 180.875 Amount Lidocaine-D5w Pmx 2G/ 180.875 250Ml 2,000 mg In Dextrose/Water 1 250ml. bag @ 1 MG/MIN 7.5 mls/hr IV .Q24H [facility] Rx#: [id number] propofoL 1,000 mg In 169.441 173.119 Empty Bag 1 bag @ Titrate IV .Q0M [facility] Rx#: [id number] Tube Feeding 140 60 Other 60 30 Output: Urine 1160 1380 465 Other: Voiding Method Indwelling Catheter Indwelling Catheter Indwelling Catheter - Exam GENERAL EXAM: Patient is intubated and sedated. Pupils are dilated but re active. HEENT: Normocephalic. Normal reaction of pupils, equal size, normal range of extraocular motion. No erythema or exudates in the throat. NECK: No masses, no nuchal rigidity. CHEST: No chest wall deformity. LUNGS: Diminished breath sounds HEART: S1 and S2 normal ABDOMEN: No hepatosplenomegaly, normal bowel sounds, no guarding or rigidity. SKIN: No rashes CENTRAL NERVOUS SYSTEM: As per neurology EXTREMITIES: No cyanosis, clubbing or edema. - Labs CBC & Chem 7: 10/07/20 03:38 10/07/20 03:38 Labs: Abnormal Lab Results - Last 24 Hours (Table) 10/06/20 10/07/20 10/07/20 Range/Units 17:45 00:40 03:38 WBC 12.6 H (3.8-10.6) k/uL RBC 3.84 L (4.30-5.90) m/uL Hgb 11.2 L (13.0-17.5) gm/dL Hct 33.7 L (39.0-53.0) % Neutrophils # 10.3 H (1.3-7.7) k/uL ABG pH (7.35-7.45) ABG pCO2 (35-45) mmHg ABG pO2 (83-108) mmHg ABG HCO3 (21-25) mmol/L ABG Total CO2 (19-24) mmol/L ABG O2 Saturation (94-97) % Sodium 125 L 126 L (137-145) mmol/L Potassium (3.5-5.1) mmol/L Chloride 85 L 81 L (98-107) mmol/L Carbon Dioxide 31 H 32 H (22-30) mmol/L BUN 62 H 66 H (9-20) mg/dL Creatinine 2.48 H 2.68 H (0.66-1.25) mg/dL Glucose 133 H 102 H (74-99) mg/dL Calcium 8.1 L (8.4-10.2) mg/dL Ionized Calcium Yudy (4.5-5.3) mg/dL Magnesium 2.5 H (1.6-2.3) mg/dL AST (17-59) U/L ALT (4-49) U/L Total Protein (6.3-8.2) g/dL Albumin (3.5-5.0) g/dL 10/07/20 10/07/20 Range/Units 03:38 04:30 WBC (3.8-10.6) k/uL RBC (4.30-5.90) m/uL Hgb (13.0-17.5) gm/dL Hct (39.0-53.0) % Neutrophils # (1.3-7.7) k/uL ABG pH 7.50 H (7.35-7.45) ABG pCO2 46 H (35-45) mmHg ABG pO2 80 L (83-108) mmHg ABG HCO3 36 H (21-25) mmol/L ABG Total CO2 37 H (19-24) mmol/L ABG O2 Saturation 97.1 H (94-97) % Sodium 126 L (137-145) mmol/L Potassium 3.0 L (3.5-5.1) mmol/L Chloride 83 L (98-107) mmol/L Carbon Dioxide 33 H (22-30) mmol/L BUN 63 H (9-20) mg/dL Creatinine 2.59 H (0.66-1.25) mg/dL Glucose 103 H (74-99) mg/dL Calcium (8.4-10.2) mg/dL Ionized Calcium Yudy 4.1 L (4.5-5.3) mg/dL Magnesium 2.6 H (1.6-2.3) mg/dL AST 66 H (17-59) U/L ALT 54 H (4-49) U/L Total Protein 5.9 L (6.3-8.2) g/dL Albumin 3.4 L (3.5-5.0) g/dL Microbiology - Last 24 Hours (Table) 10/05/20 22:36 Gram Stain - Preliminary Sputum Sputum Culture - Preliminary Assessment and Plan Plan: Assessment and plan #1 cardiac arrest with ventricular tachycardia #2 hyponatremia #3 hypokalemia #4 acute metabolic encephalopathy #5 systolic congestive heart failure acute on chronic #6 acute on chronic kidney injury #7 nonischemic cardiomyopathy Plan We will discontinue the IV lidocaine, start the patient on oral amiodarone. Continue to monitor for any junctional rhythms. DNP note has been reviewed, I agree with a documented findings and plan of care. Patient was seen and examined.
--- NOTE | 2020-10-07 12:10 | P.PN ---
Subjective Patient is seen in follow-up for acute kidney injury and electrolyte imbalance. Potassium level III.0 this morning. Sodium level is up to 126. Creatinine is stable at 2.59. He is intubated and is on 50% FiO2. Normal saline is running at 100 mL an hour. He is also on tube feeding. Amiodarone drip has been discontinued. Still on lidocaine drip. Nonoliguric. Vital signs are stable. General: The patient appeared well nourished and normally developed. HEENT: Intubated. LUNGS: Breath sounds decreased. HEART: Regular rate and rhythm. ABDOMEN: No gross distention. EXTREMITITES: No edema. Objective - Vital Signs Vital signs: Vital Signs Temp 99.0 F 10/07/20 08:00 Pulse 79 10/07/20 11:00 Resp 20 10/07/20 11:00 BP 167/81 10/07/20 11:00 Pulse Ox 95 10/07/20 11:00 Intake & Output 10/06/20 10/07/20 10/07/20 18:59 06:59 18:59 Intake Total 2019.441 6837.923 5201.875 Output Total 1160 1380 465 Balance 859.441 193.119 705.875 Weight 61.6 kg 64 kg Intake: IV 1850 1200 900 0.9% NaCl with KCl 40 Meq 700 1200 100 /l 1,000 ml @ 100 mls/hr IV .Q10H [facility] Rx#: [id number] Amiodarone 300 mg In 250 Dextrose 5% in Water 250 ml @ 1 MG/MIN 50 mls/hr IV .Q5H [facility] Rx#:[id number] Calcium Gluconate 1 gm In 100 Sodium Chloride 0.9% 100 ml @ 100 mls/hr IVPB ONCE ONE Rx#:[id number] Calcium Gluconate 1 gm In 100 Sodium Chloride 0.9% 100 ml @ 100 mls/hr IVPB ONCE ONE Rx#:[id number] Potassium Chloride 10 meq 100 300 In Water For Injection 1 100ml.bag @ 100 mls/hr IVPB Q1HR [facility] Rx#: [id number] Potassium Chloride 20 meq 400 In Water For Injection 1 100ml.bag @ 50 mls/hr IVPB Q2H [facility] Rx#: [id number] Sodium Chloride 0.9% 1, 400 000 ml @ 100 mls/hr IV . Q10H [facility] Rx#:[id number] Sodium Chloride 0.9% 1, 300 000 ml @ 60 mls/hr IV . [id number] [facility] Rx#:[id number] Intake, IV Titration 169.441 173.119 180.875 Amount Lidocaine-D5w Pmx 2G/ 180.875 250Ml 2,000 mg In Dextrose/Water 1 250ml. bag @ 1 MG/MIN 7.5 mls/hr IV .Q24H [facility] Rx#: [id number] propofoL 1,000 mg In 169.441 173.119 Empty Bag 1 bag @ Titrate IV .Q0M [facility] Rx#: [id number] Tube Feeding 140 60 Other 60 30 Output: Urine 1160 1380 465 Other: Voiding Method Indwelling Catheter Indwelling Catheter Indwelling Catheter - Labs CBC & Chem 7: 10/07/20 03:38 10/07/20 03:38 Labs: Abnormal Lab Results - Last 24 Hours (Table) 10/06/20 10/07/20 10/07/20 Range/Units 17:45 00:40 03:38 WBC 12.6 H (3.8-10.6) k/uL RBC 3.84 L (4.30-5.90) m/uL Hgb 11.2 L (13.0-17.5) gm/dL Hct 33.7 L (39.0-53.0) % Neutrophils # 10.3 H (1.3-7.7) k/uL ABG pH (7.35-7.45) ABG pCO2 (35-45) mmHg ABG pO2 (83-108) mmHg ABG HCO3 (21-25) mmol/L ABG Total CO2 (19-24) mmol/L ABG O2 Saturation (94-97) % Sodium 125 L 126 L (137-145) mmol/L Potassium (3.5-5.1) mmol/L Chloride 85 L 81 L (98-107) mmol/L Carbon Dioxide 31 H 32 H (22-30) mmol/L BUN 62 H 66 H (9-20) mg/dL Creatinine 2.48 H 2.68 H (0.66-1.25) mg/dL Glucose 133 H 102 H (74-99) mg/dL Calcium 8.1 L (8.4-10.2) mg/dL Ionized Calcium Yudy (4.5-5.3) mg/dL Magnesium 2.5 H (1.6-2.3) mg/dL AST (17-59) U/L ALT (4-49) U/L Total Protein (6.3-8.2) g/dL Albumin (3.5-5.0) g/dL 10/07/20 10/07/20 Range/Units 03:38 04:30 WBC (3.8-10.6) k/uL RBC (4.30-5.90) m/uL Hgb (13.0-17.5) gm/dL Hct (39.0-53.0) % Neutrophils # (1.3-7.7) k/uL ABG pH 7.50 H (7.35-7.45) ABG pCO2 46 H (35-45) mmHg ABG pO2 80 L (83-108) mmHg ABG HCO3 36 H (21-25) mmol/L ABG Total CO2 37 H (19-24) mmol/L ABG O2 Saturation 97.1 H (94-97) % Sodium 126 L (137-145) mmol/L Potassium 3.0 L (3.5-5.1) mmol/L Chloride 83 L (98-107) mmol/L Carbon Dioxide 33 H (22-30) mmol/L BUN 63 H (9-20) mg/dL Creatinine 2.59 H (0.66-1.25) mg/dL Glucose 103 H (74-99) mg/dL Calcium (8.4-10.2) mg/dL Ionized Calcium Yudy 4.1 L (4.5-5.3) mg/dL Magnesium 2.6 H (1.6-2.3) mg/dL AST 66 H (17-59) U/L ALT 54 H (4-49) U/L Total Protein 5.9 L (6.3-8.2) g/dL Albumin 3.4 L (3.5-5.0) g/dL Microbiology - Last 24 Hours (Table) 10/05/20 22:36 Gram Stain - Preliminary Sputum Sputum Culture - Preliminary Assessment and Plan Plan: Assessment: 1. Acute kidney injury secondary to ATN secondary to cardiopulmonary arrest. Nonoliguric. Creatinine was 3.1 on admission and is 2.59 today. 2. Chronic kidney disease stage IV with baseline creatinine in the range of 2.3-2.5 this year. 3. Status post cardiopulmonary arrest with down time of about 5-15 minutes. Maintained on lidocaine drip. 4. Severe hypokalemia secondary to poor intake and diuretics. Magnesium normal. Urine potassium 64 suggestive of renal potassium wasting however there is a component of secondary hyperaldosteronism due to volume depletion which would lead to renal potassium losses. 5. Metabolic alkalosis secondary to volume contraction from diuretics. Better. 6. Hypovolemic hyponatremia. Slowly improving. Urine sodium 20 and urine osmolality 300. 7. Chronic systolic CHF with ejection fraction of 20-25% with mild to moderate mitral regurgitation. 8. Acute hypoxic respiratory failure. Plan: Continue with potassium supplementation. Maintain normal saline. Follow-up renal ultrasound. Wean FiO2. Continue to monitor renal function and urine output.
[2020-10-07 12:51] LABS: Ionized Calcium 4.6 mg/dL (4.5-5.3)
[2020-10-07] MEDS ORDERED: CISATRACURIUM 2 MG/ML 5 ML VIAL IV ONE (12:52)
[2020-10-07 13:02] LABS: Calcium 9.1 mg/dL (8.4-10.2)
[2020-10-07 13:04] LABS: Potassium 2.7 mmol/L (3.5-5.1)
--- NOTE | 2020-10-07 13:52 | XR ---
EXAMINATION TYPE: XR chest 1V portable DATE OF EXAM: 10/07/2020 COMPARISON: Prior chest x-ray 10/07/2020 HISTORY: Status post central venous catheter placement TECHNIQUE: Single frontal view of the chest is obtained. FINDINGS: There is been interval placement of a left jugular central venous catheter, distal tip ove rlying the cavoatrial junction. No pneumothorax or evident pleural effusion. Retrocardiac density is present. Tracheal tube is stable. NG tube again seen. Left costophrenic angle not well seen on exam. There are overlying artifacts. IMPRESSION: No evident complication status post central venous catheter placement. Probable left low er lobe atelectasis versus pneumonia.
[2020-10-07] MEDS: POTASSIUM BICARBONATE/CIT AC 20 MEQ TABLET.EFF PO SCH ×2 (13:57→14:09)
[2020-10-07] MEDS: CLEVIDIPINE BUTYRATE 25 MG in EMPTY BAG 1 BAG IV SCH ×3 (14:08→23:39)
--- NOTE | 2020-10-07 15:07 | PCN ---
PROCEDURE NOTE FIRST PROCEDURE: Left internal jugular triple-lumen catheter. PREOPERATIVE DIAGNOSIS: Administration of fluids and pressors. POSTOPERATIVE DIAGNOSIS: Administration of fluids and pressors. A time-out was completed verifying correct patient, procedure, site, positioning, and implant(s) or special equipment if applicable. The patient was placed in a dependent position appropriate for triple lumen catheter placement based on the vein to be cannulated. The patient's left neck was prepped and draped in sterile fashion. 1% Lidocaine was used to anesthetize the surrounding skin area. A triple lumen 9F Cordis catheter was introduced into the left internal jugular using Seldinger technique. The catheter was threaded smoothly over the guide wire and appropriate blood return was obtained. Each lumen of the catheter was evacuated of air and flushed with sterile saline. The catheter was then sutured in place to the skin and a sterile dressing applied. Perfusion to the extremity distal to the point of catheter insertion was checked and found to be adequate. We did a posterior approach. There was no immediate complication. There was good blood return from all 3 ports. The catheter was sutured in place. A sterile dressing was applied by the nurse. The tip of the catheter was seen in the right atrium. A chest x-ray was ordered. Sterile dressing was applied. SECOND PROCEDURE: A right radial artery arterial line. PREOPERATIVE DIAGNOSIS: Frequent blood draws and blood gas monitoring. POSTOPERATIVE DIAGNOSIS: Frequent blood draws and blood gas monitoring. STRAIGHTEDGE WORKER: Dr. Rivas and Cherie Child. The right radial artery was used. There was no immediate complication. There was good blood return and waveform. The catheter was sutured in place. Sterile dressing was applied by the nurse. On both of these procedures there was informed consent and universal timeout. There was no immediate complication as mentioned. MMODL / IJN: [id number] /
--- NOTE | 2020-10-07 15:30 | P.PN ---
Subjective Progress Note Date: 10/07/20 Patient was seen at bedside and the continues to be intubated on a ventilator and on and IV sedation. He continues to be on IV propofol drip is at the 15 mcg/kg/min. Per the patient nurse, he is more awake today and was following command for her (squeezing finger and moving extremities). No seizure-like activity since he's been in the hospital. Objective - Vital Signs Vital signs: Vital Signs Temp 99.0 F 10/07/20 08:00 Pulse 82 10/07/20 08:30 Resp 20 10/07/20 08:30 BP 185/86 10/07/20 08:30 Pulse Ox 95 10/07/20 08:30 Intake & Output 10/06/20 10/07/20 10/07/20 18:59 06:59 18:59 Intake Total 2019.441 1505.890 300.875 Output Total 1160 1380 85 Balance 859.441 125.890 215.875 Weight 61.6 kg 64 kg Intake: IV 1850 1200 100 0.9% NaCl with KCl 40 Meq 700 1200 100 /l 1,000 ml @ 100 mls/hr IV .Q10H [facility] Rx#: [id number] Amiodarone 300 mg In 250 Dextrose 5% in Water 250 ml @ 1 MG/MIN 50 mls/hr IV .Q5H [facility] Rx#:[id number] Calcium Gluconate 1 gm In 100 Sodium Chloride 0.9% 100 ml @ 100 mls/hr IVPB ONCE ONE Rx#:[id number] Potassium Chloride 10 meq 100 In Water For Injection 1 100ml.bag @ 100 mls/hr IVPB Q1HR [facility] Rx#: [id number] Potassium Chloride 20 meq 400 In Water For Injection 1 100ml.bag @ 50 mls/hr IVPB Q2H [facility] Rx#: [id number] Sodium Chloride 0.9% 1, 300 000 ml @ 60 mls/hr IV . [id number] [facility] Rx#:[id number] Intake, IV Titration 169.441 105.890 180.875 Amount Lidocaine-D5w Pmx 2G/ 180.875 250Ml 2,000 mg In Dextrose/Water 1 250ml. bag @ 1 MG/MIN 7.5 mls/hr IV .Q24H [facility] Rx#: [id number] propofoL 1,000 mg In 169.441 105.890 Empty Bag 1 bag @ Titrate IV .Q0M [facility] Rx#: [id number] Tube Feeding 140 20 Other 60 Output: Urine 1160 1380 85 Other: Voiding Method Indwelling Catheter Indwelling Catheter - Exam GENERAL: The patient is lying and intubated on ventilator and on IV sedation (Propofol 15mcg/kg/min). LUNG: Intubated and on Ventilator and breathing over the vent.. ABDOMEN/GI: Bowel sounds present in all 4 quadrants. No tenderness to palpation throughout. NEUROLOGICAL: Limited since on sedation and intubated. Higher mental function: GCS 10: (E3, VT1, M6). Comatose and not following commands. Cranial nerves: The pupils are round, equal 3-4mm bilaterally and reactive to light. Pupils primary gaze are midline. No facial weakness noted throughout. Motor: Gait is deferred. The strength is moving bilateral extremities above the bed spontaneous while moving the legs side to side on bed,Normal tone and bulk. Sensation: Unable to assess. Reflexes (right/left): 1+ throughout. Plantars are mute bilaterally. - Labs CBC & Chem 7: 10/07/20 03:38 10/07/20 12:15 Labs: Abnormal Lab Results - Last 24 Hours (Table) 10/06/20 10/06/20 10/07/20 Range/Units 09:06 17:45 00:40 WBC (3.8-10.6) k/uL RBC (4.30-5.90) m/uL Hgb (13.0-17.5) gm/dL Hct (39.0-53.0) % Neutrophils # (1.3-7.7) k/uL ABG pH (7.35-7.45) ABG pCO2 (35-45) mmHg ABG pO2 (83-108) mmHg ABG HCO3 (21-25) mmol/L ABG Total CO2 (19-24) mmol/L ABG O2 Saturation (94-97) % Sodium 123 L 125 L 126 L (137-145) mmol/L Potassium 2.0 L* (3.5-5.1) mmol/L Chloride 68 L* 85 L 81 L (98-107) mmol/L Carbon Dioxide 40 H 31 H 32 H (22-30) mmol/L BUN 73 H 62 H 66 H (9-20) mg/dL Creatinine 2.91 H 2.48 H 2.68 H (0.66-1.25) mg/dL Glucose 125 H 133 H 102 H (74-99) mg/dL Calcium 8.1 L (8.4-10.2) mg/dL Ionized Calcium Yudy (4.5-5.3) mg/dL Magnesium 2.5 H (1.6-2.3) mg/dL AST (17-59) U/L ALT (4-49) U/L Total Protein (6.3-8.2) g/dL Albumin (3.5-5.0) g/dL 10/07/20 10/07/20 10/07/20 Range/Units 03:38 03:38 04:30 WBC 12.6 H (3.8-10.6) k/uL RBC 3.84 L (4.30-5.90) m/uL Hgb 11.2 L (13.0-17.5) gm/dL Hct 33.7 L (39.0-53.0) % Neutrophils # 10.3 H (1.3-7.7) k/uL ABG pH 7.50 H (7.35-7.45) ABG pCO2 46 H (35-45) mmHg ABG pO2 80 L (83-108) mmHg ABG HCO3 36 H (21-25) mmol/L ABG Total CO2 37 H (19-24) mmol/L ABG O2 Saturation 97.1 H (94-97) % Sodium 126 L (137-145) mmol/L Potassium 3.0 L (3.5-5.1) mmol/L Chloride 83 L (98-107) mmol/L Carbon Dioxide 33 H (22-30) mmol/L BUN 63 H (9-20) mg/dL Creatinine 2.59 H (0.66-1.25) mg/dL Glucose 103 H (74-99) mg/dL Calcium (8.4-10.2) mg/dL Ionized Calcium Yudy 4.1 L (4.5-5.3) mg/dL Magnesium 2.6 H (1.6-2.3) mg/dL AST 66 H (17-59) U/L ALT 54 H (4-49) U/L Total Protein 5.9 L (6.3-8.2) g/dL Albumin 3.4 L (3.5-5.0) g/dL Microbiology - Last 24 Hours (Table) 10/05/20 22:36 Gram Stain - Preliminary Sputum Sputum Culture - Preliminary Assessment and Plan Assessment: This is a 70-year-old gentleman that presented to the emergency department on 10/05/2020 for syncopal episode. It is documented the patient the had no pulse lasting for 5-10 minutes and per the patient's girlfriend patient had questionable seizure-like activity. He has runs of Vib/Vtach overnight and today. Syncopal episode: Seemed cardiac in etiology. ?seizure-like activity. If it is a seizure possibly could be provoked because of the hyponatremia, hypokalecemia which is acute. Ecephalopathy due to patient cardiac arrest, ?seizure, electrolyte imbalance and sedation use (Propofol) Cardiac arrest with V. tach Runs of V-fib and V tach--resolved Acute hyponatremia---slight improvement Electrolyte imbalance (hyponatremia, Hypokalemia, hypocaclemia) Elevated troponin Elevated liver function tests likely reactive. History of nonischemic cardiomyopathy with ejection fraction of 20% Acute on chronic kidney insufficiency Dyslipidemia COPD Plan: In the ED the patient was given 1 g dose of Keppra loading. EEG 10/07/20: It is abnormal routine EEG. The burst suppression seen is likely due to medication effect (IV sedation). The background slowing consistent with moderate to severe encephalopathy likely due to medication effect. There are no focal slowing, epileptiform discharges or seizure seen during the study. The excessive fast activity is likely due to medication effect. I'll repeat the an EEG for today I will not start the patient on antiepileptic drugs unless there is epileptic form discharges or seizure seen on the EEG. Recommend getting MRI of the brain without gadolinium to rule out any i ntracranial abnormality once stable patient is stable. Continue thiamine 100 mg IV daily. Ammonia level: 11 (normal). TSH: 3.2 (normal). Cardiology is on board. I will defer correcting hyponatremia and rest of electrolyte imbalance to the primary/ICU team. The plan was discussed with ICU team and primary team. Will continue to follow. Terry Rivas M.D. Neuro-hospitalist Time with Patient: Less than 30
--- NOTE | 2020-10-07 15:36 | US ---
EXAMINATION TYPE: US kidneys/renal and bladder DATE OF EXAM: 10/07/2020 COMPARISON: Prior renal ultrasound dated 06/09/2020 CLINICAL HISTORY: rayray. EXAM MEASUREMENTS: Right Kidney: 11.3 x 3.7 x 4.7 cm Left Kidney: not visualized ICU patient in a room with another patient, a crash cart, 2 intubation units. Difficult to reach [place] ent with machine/equipment. Right Kidney: No hydronephrosis or masses seen Left Kidney: unable to visualize due to above limitations Bladder: wynn Cortical medullary differentiation is maintained, right kidney shows increased cortical echotexture IMPRESSION: Exam is limited. Right kidney shows findings of probable medical renal disease. Patient with known at rophy of the left kidney from prior exam.
[2020-10-07] MEDS: AMIODARONE 200 MG TAB PO SCH ×2 (15:56→21:09)
--- NOTE | 2020-10-07 17:32 | P.PN ---
Subjective Progress Note Date: 10/07/20 (delayed charting seen at 0830) Principal diagnosis: unresponsive Patient is a 70-year-old male with a history of systolic cardiomyopathy with ejection fraction 20% nonischemic, hypertension, COPD, and colon cancer who initially was found down by his , she started CPR and called EMS. When they arrived the patient was pulseless was felt to have a downtime of around 10 minutes. He was found to have V. tach but spontaneously converted to sinus rhythm and [place] was achieved. However the patient was alert and responsive and was intubated. Cardiology evaluated the EKG on arrival to the hospital and did not recommend any immediate intervention in the dye lab technician. Initial vital signs in the ER showed a temperature of 98, pulse 67, respirations 10, blood pressure 137/81, and oxygenation saturation 94%. Initial laboratory analysis was remarkable for a sodium of 121, potassium 2.2, BUN 77, creatinine 3.01 (baseline is 2.8-2.9), troponin 0.074, BNP 12,200. Rotavirus antigen was negative, white blood cell count 11.3 platelet count 524. Initial ABG showed a pH of 7.58 pCO2 of 48, PaO2 of 335. He was started on a small amount of normal saline and potassium was replaced. He is admitted to the ICU. He continued to have episodes of V. tach overnight ultimately requiring amiodarone and lidocaine drip. On the morning after admission he was still hyponatremic and hypokalemic. He is seen by neurology who asked that he have interactions and sedation for proper neurologic examination. His potassium corrected on 10/06 and then he developed a junctional rhythm. His amiodarone was stopped. He continued to struggle with hyponatremia and hypokalemia. On 10/07 the IV lidocaine was stopped and he was given oral amiodarone. Patient seen and examined at bedside. Was following commands for nurse be required to have propofol restarted due to agitation General: non toxic, no distress, appears at stated age Derm: warm, dry Head: atraumatic, normocephalic, symmetric Eyes: EOMI, no lid lesions, anicteric sclera Mouth: no lip lesion, mucus membranes moist Cardiovascular: S1S2 reg, no murmur, positive posterior tibial pulse bilateral, Lungs: Coarse breath sounds bilaterally, no rhonchi, no rales , no accessory muscle use, on vent Abdominal: soft, nontender to palpation, no guarding, no appreciable organomegaly Ext: no gross muscle atrophy, no edema, no contractures Neuro: Positive cough, breathing over vent, no withdrawal to pain in all 4 extremities Psych: Sedated on vent Aborted sudden cardiac with ventricular tachycardia -Cardiology recommendations -on oral amio -Attempt to correct electrolyte abnormalities Hyponatremia secondary to dehydration -Severe -Continue with IV fluids -Nephrology consulted -Recheck lites once potassium supplementation has been given Hypokalemia -Replace and recheck -Magnesium intact Acute metabolic encephalopathy - improving - suspect anoxic - supportive care - neuro recs Systolic congestive heart failure with ejection fraction 20-25% -No acute exacerbation noted despite elevated BNP -IV fluids -Hold Zaroxolyn, Lasix -Hold Coreg secondary to hypotension -Not on URIEL inhibitor or ARB secondary to recent acute kidney injury Acute kidney injury and chronic kidney disease IV with baseline creatinine 2.9 -Avoid nephrotoxic agents -IV fluids -Repeat labs in a.m. -Consult nephrology DVT prophylaxis: Heparin Discussed with: Nursing, Neuology Anticipated discharge: undetermined Anticipated discharge place: undetermined A total of 45 minutes was spent on the care of this complex patient more than 50% of the time was spent in counseling and care coordination. Objective - Vital Signs Vital signs: Vital Signs Temp 98.2 F 10/07/20 16:00 Pulse 69 10/07/20 16:00 Resp 28 H 10/07/20 16:00 BP 162/74 10/07/20 14:15 Pulse Ox 97 10/07/20 16:00 Intake & Output 10/06/20 10/07/20 10/07/20 18:59 06:59 18:59 Intake Total 2019.441 2401.719 2874.876 Output Total 1160 1380 1195 Balance 859.441 193.119 619.876 Weight 61.6 kg 64 kg Intake: IV 1850 1200 1400 0.9% NaCl with KCl 40 Meq 700 1200 100 /l 1,000 ml @ 100 mls/hr IV .Q10H [facility] Rx#: [id number] Amiodarone 300 mg In 250 Dextrose 5% in Water 250 ml @ 1 MG/MIN 50 mls/hr IV .Q5H [facility] Rx#:[id number] Calcium Gluconate 1 gm In 100 Sodium Chloride 0.9% 100 ml @ 100 mls/hr IVPB ONCE ONE Rx#:[id number] Calcium Gluconate 1 gm In 100 Sodium Chloride 0.9% 100 ml @ 100 mls/hr IVPB ONCE ONE Rx#:[id number] Potassium Chloride 10 meq 100 500 In Water For Injection 1 100ml.bag @ 100 mls/hr IVPB Q1HR [facility] Rx#: [id number] Potassium Chloride 20 meq 400 In Water For Injection 1 100ml.bag @ 50 mls/hr IVPB Q2H [facility] Rx#: [id number] Sodium Chloride 0.9% 1, 700 000 ml @ 100 mls/hr IV . Q10H [facility] Rx#:[id number] Sodium Chloride 0.9% 1, 300 000 ml @ 60 mls/hr IV . [id number] [facility] Rx#:[id number] Intake, IV Titration 169.441 173.119 284.876 Amount Clevidipine Butyrate 25 4.001 mg In Empty Bag 1 bag @ 1 MG/HR 2 mls/hr IV .Q24H [facility] Rx#:[id number] Lidocaine-D5w Pmx 2G/ 180.875 250Ml 2,000 mg In Dextrose/Water 1 250ml. bag @ 1 MG/MIN 7.5 mls/hr IV .Q24H [facility] Rx#: [id number] propofoL 1,000 mg In 169.441 173.119 100 Empty Bag 1 bag @ Titrate IV .Q0M [facility] Rx#: [id number] Tube Feeding 140 100 Other 60 30 Output: Urine 1160 1380 1195 Other: Voiding Method Indwelling Catheter Indwelling Catheter Indwelling Catheter ABP, PAP, CO, CI - Last Documented Arterial Blood Pressure 157/60 - Labs CBC & Chem 7: 10/07/20 03:38 10/07/20 12:15 Labs: Abnormal Lab Results - Last 24 Hours (Table) 10/06/20 10/07/20 10/07/20 Range/Units 17:45 00:40 03:38 WBC 12.6 H (3.8-10.6) k/uL RBC 3.84 L (4.30-5.90) m/uL Hgb 11.2 L (13.0-17.5) gm/dL Hct 33.7 L (39.0-53.0) % Neutrophils # 10.3 H (1.3-7.7) k/uL ABG pH (7.35-7.45) ABG pCO2 (35-45) mmHg ABG pO2 (83-108) mmHg ABG HCO3 (21-25) mmol/L ABG Total CO2 (19-24) mmol/L ABG O2 Saturation (94-97) % Sodium 125 L 126 L (137-145) mmol/L Potassium (3.5-5.1) mmol/L Chloride 85 L 81 L (98-107) mmol/L Carbon Dioxide 31 H 32 H (22-30) mmol/L BUN 62 H 66 H (9-20) mg/dL Creatinine 2.48 H 2.68 H (0.66-1.25) mg/dL Glucose 133 H 102 H (74-99) mg/dL Calcium 8.1 L (8.4-10.2) mg/dL Ionized Calcium Yudy (4.5-5.3) mg/dL Magnesium 2.5 H (1.6-2.3) mg/dL AST (17-59) U/L ALT (4-49) U/L Total Protein (6.3-8.2) g/dL Albumin (3.5-5.0) g/dL Procalcitonin (0.02-0.09) ng/mL 10/07/20 10/07/20 10/07/20 Range/Units 03:38 03:38 04:30 WBC (3.8-10.6) k/uL RBC (4.30-5.90) m/uL Hgb (13.0-17.5) gm/dL Hct (39.0-53.0) % Neutrophils # (1.3-7.7) k/uL ABG pH 7.50 H (7.35-7.45) ABG pCO2 46 H (35-45) mmHg ABG pO2 80 L (83-108) mmHg ABG HCO3 36 H (21-25) mmol/L ABG Total CO2 37 H (19-24) mmol/L ABG O2 Saturation 97.1 H (94-97) % Sodium 126 L (137-145) mmol/L Potassium 3.0 L (3.5-5.1) mmol/L Chloride 83 L (98-107) mmol/L Carbon Dioxide 33 H (22-30) mmol/L BUN 63 H (9-20) mg/dL Creatinine 2.59 H (0.66-1.25) mg/dL Glucose 103 H (74-99) mg/dL Calcium (8.4-10.2) mg/dL Ionized Calcium Yudy 4.1 L (4.5-5.3) mg/dL Magnesium 2.6 H (1.6-2.3) mg/dL AST 66 H (17-59) U/L ALT 54 H (4-49) U/L Total Protein 5.9 L (6.3-8.2) g/dL Albumin 3.4 L (3.5-5.0) g/dL Procalcitonin 0.24 H (0.02-0.09) ng/mL 10/07/20 Range/Units 12:15 WBC (3.8-10.6) k/uL RBC (4.30-5.90) m/uL Hgb (13.0-17.5) gm/dL Hct (39.0-53.0) % Neutrophils # (1.3-7.7) k/uL ABG pH (7.35-7.45) ABG pCO2 (35-45) mmHg ABG pO2 (83-108) mmHg ABG HCO3 (21-25) mmol/L ABG Total CO2 (19-24) mmol/L ABG O2 Saturation (94-97) % Sodium 130 L (137-145) mmol/L Potassium 2.7 L* (3.5-5.1) mmol/L Chloride 87 L (98-107) mmol/L Carbon Dioxide 35 H (22-30) mmol/L BUN 57 H (9-20) mg/dL Creatinine 2.47 H (0.66-1.25) mg/dL Glucose 101 H (74-99) mg/dL Calcium (8.4-10.2) mg/dL Ionized Calcium Yudy (4.5-5.3) mg/dL Magnesium (1.6-2.3) mg/dL AST (17-59) U/L ALT (4-49) U/L Total Protein (6.3-8.2) g/dL Albumin (3.5-5.0) g/dL Procalcitonin (0.02-0.09) ng/mL Microbiology - Last 24 Hours (Table) 10/05/20 22:36 Gram Stain - Preliminary Sputum Sputum Culture - Preliminary
[2020-10-07 22:45] LABS: Calcium 9.1 mg/dL (8.4-10.2); Potassium 2.9 mmol/L (3.5-5.1)
[2020-10-08] MEDS: IPRATROPIUM-ALBUTEROL 3 ML NEB INHALATION SCH ×7 (00:10→23:13)
[2020-10-08 00:21] LABS: Glucose,Whole Blood 119 mg/dL (75-99)
[2020-10-08] MEDS: POTASSIUM CHLORIDE 20 MEQ in WATER FOR INJECTION 1 100ML.BAG IVPB SCH ×7 (00:45→15:03)
[2020-10-08] MEDS: CLEVIDIPINE BUTYRATE 25 MG in EMPTY BAG 1 BAG IV SCH ×9 (02:05→21:48)
[2020-10-08] MEDS: SODIUM CHLORIDE 0.9% 1,000 ML IV SCH ×2 (03:16→08:40)
[2020-10-08 04:48] LABS: Basophils # (A) 0.1 k/uL (0-0.2); Basophils % (A) 1 %; Eosinophils # (A) 0.5 k/uL (0-0.7); Eosinophils % (A) 4 %; HCT 30.9 % (39.0-53.0); HGB 10.4 gm/dL (13.0-17.5); Lymphocytes % (A) 8 %; MCH 29.6 pg (25.0-35.0); MCHC 33.5 g/dL (31.0-37.0); MCV 88.5 fL (80.0-100.0); Mean Platelet Volume 6.7; Monocytes # (A) 0.5 k/uL (0-1.0); Monocytes % (A) 4 %; Neutrophils # (A) 10.7 k/uL (1.3-7.7); Neutrophils % (A) 83 %; Platelet Count 302 k/uL (150-450); RDW 14.8 % (11.5-15.5); WBC 12.9 k/uL (3.8-10.6)
[2020-10-08 04:58] LABS: Ionized Calcium 4.6 mg/dL (4.5-5.3)
[2020-10-08 05:04] LABS: Albumin 3.2 g/dL (3.5-5.0); Calcium 8.7 mg/dL (8.4-10.2); Magnesium 2.3 mg/dL (1.6-2.3); Phosphorus 2.7 mg/dL (2.5-4.5); Potassium 3.1 mmol/L (3.5-5.1); Total Bilirubin 0.6 mg/dL (0.2-1.3); Total Protein 5.8 g/dL (6.3-8.2)
[2020-10-08 05:27] LABS: ABG Base Excess 9.1 mmol/L; ABG HCO3 32 mmol/L (21-25); ABG Oxygen Saturation 97.2 % (94-97); ABG PCO2 40 mmHg (35-45); ABG PH 7.52 (7.35-7.45); ABG PO2 79 mmHg (83-108); ABG TCO2 33 mmol/L (19-24); Allen Test Performed? Yes
[2020-10-08 06:26] LABS: Glucose,Whole Blood 111 mg/dL (75-99)
[2020-10-08] MEDS: POTASSIUM BICARBONATE/CIT AC 20 MEQ TABLET.EFF NG-TUBE SCH ×2 (07:16→08:11)
[2020-10-08] MEDS: AMIODARONE 200 MG TAB PO SCH ×3 (08:12→22:29)
[2020-10-08] MEDS: THIAMINE 100 MG/ML 2 ML VIAL IVP SCH (08:12)
[2020-10-08] MEDS: HEPARIN SODIUM,PORCINE 5,000 UNIT/ML 1 ML VIAL SQ SCH ×2 (08:12→16:29)
[2020-10-08] MEDS: CHLORHEXIDINE GLUCONATE 15 ML CUP MUCOUS MEM SCH ×2 (08:12→21:48)
[2020-10-08] MEDS: hydrALAZINE HCL 50 MG TAB PO SCH ×3 (08:13→22:29)
--- NOTE | 2020-10-08 08:45 | XR ---
EXAMINATION TYPE: XR chest 1V portable DATE OF EXAM: 10/08/2020 COMPARISON: 10/07/2020 HISTORY: Shortness of breath FINDINGS: There are bilateral pleural effusions with cardiomegaly and bibasilar infiltrate. There is a diffuse interstitial pattern. ET and NG tube and central line stable. No sizable pneumothorax. Biapical pleu ral thickening. IMPRESSION: 1. Diffuse pleural-parenchymal changes are stable. Findings could been the basis of CHF or interstiti al pneumonia with additional consolidative left lower lobe pneumonia.
[2020-10-08] MEDS ORDERED: FAMOTIDINE 20 MG TAB PO SCH (09:00)
--- NOTE | 2020-10-08 09:05 | P.PN ---
Subjective Progress Note Date: 10/08/20 This is a 70-year-old gentleman with history of nonischemic cardiomyopathy, chronic congestive heart failure, renal failure, who was brought to the hospital after an episode of loss of consciousness. Patient did receive CPR according to the paramedics, he had an episode of ventricular tachycardia for which she converted spontaneously to normal sinus rhythm. His EKG on presentation here showed diffuse ST-T changes without any ST elevation. He recently underwent a cardiac catheterization and was found to have noncritical disease involving the LAD. He has chronic renal failure. And is currently intubated in the intensive care unit. He was more agitated earlier this morning, at the time of her examination he seemed to be more calm. Patient was having bouts of ventricular tachycardia and was initiated on IV amiodarone as well as slide oh. The IV amiodarone had been discontinued because of some junctional rhythm, this morning he continues to be on lidocaine. No further episodes of ventricular tachycardia noted and the patient is currently in a sinus rhythm to sinus tachycardia this morning. This documented ejection fraction in the past has been 20-25%, his chest x-ray showed some chronic infiltrate without any significant new changes. We'll discontinue the IV lidocaine today and start the patient on oral amiodarone. Patient seen and examined this morning, continues to be on Cleviprex, blood pressure 154/56, heart rate in the 70s, normal sinus rhythm. Continues to be on mechanical ventilation. Laboratory data, white blood cell count 12.9, hemoglobin 10.4, platelet count 302. Sodium 132, potassium 3.1, chloride 92, CO2 33, BUN 47, creatinine 1.9 which is an improvement from yesterday. Objective - Vital Signs Vital signs: Vital Signs Temp 98.0 F 10/08/20 08:00 Pulse 68 10/08/20 08:58 Resp 22 10/08/20 08:00 BP 148/63 10/08/20 07:00 Pulse Ox 97 10/08/20 08:00 Intake & Output 10/07/20 10/08/20 10/08/20 18:59 06:59 18:59 Intake Total 2714.263 2590.444 523.933 Output Total 1945 1685 305 Balance 769.263 905.444 218.933 Weight 64.2 kg Intake: IV 2100 1700 400 0.9% NaCl with KCl 40 Meq 100 /l 1,000 ml @ 100 mls/hr IV .Q10H [facility] Rx#: [id number] Calcium Gluconate 1 gm In 100 Sodium Chloride 0.9% 100 ml @ 100 mls/hr IVPB ONCE ONE Rx#:[id number] Potassium Chloride 10 meq 800 500 200 In Water For Injection 1 100ml.bag @ 100 mls/hr IVPB Q1HR [facility] Rx#: [id number] Sodium Chloride 0.9% 1, 1100 1200 200 000 ml @ 100 mls/hr IV . Q10H [facility] Rx#:[id number] Intake, IV Titration 334.263 370.444 11.933 Amount Clevidipine Butyrate 25 50.000 197.800 11.933 mg In Empty Bag 1 bag @ 1 MG/HR 2 mls/hr IV .Q24H [facility] Rx#:[id number] Lidocaine-D5w Pmx 2G/ 180.875 250Ml 2,000 mg In Dextrose/Water 1 250ml. bag @ 1 MG/MIN 7.5 mls/hr IV .Q24H [facility] Rx#: [id number] propofoL 1,000 mg In 103.388 172.644 Empty Bag 1 bag @ Titrate IV .Q0M [facility] Rx#: [id number] Tube Feeding 220 430 82 Other 60 90 30 Output: Urine 1945 1685 305 Other: Voiding Method Indwelling Catheter Indwelling Catheter ABP, PAP, CO, CI - Last Documented Arterial Blood Pressure 154/56 - Exam GENERAL EXAM: Patient is intubated and sedated. Pupils are dilated but reactive. HEENT: Normocephalic. Normal reaction of pupils, equal size, normal range of extraocular motion. No erythema or exudates in the throat. NECK: No masses, no nuchal rigidity. CHEST: No chest wall deformity. LUNGS: Diminished breath sounds HEART: S1 and S2 normal ABDOMEN: No hepatosplenomegaly, normal bowel sounds, no guarding or rigidity. SKIN: No rashes CENTRAL NERVOUS SYSTEM: As per neurology EXTREMITIES: No cyanosis, clubbing or edema. - Labs CBC & Chem 7: 10/08/20 04:30 10/08/20 04:30 Labs: Abnormal Lab Results - Last 24 Hours (Table) 10/07/20 10/07/20 10/07/20 Range/Units 03:38 12:15 21:40 WBC (3.8-10.6) k/uL RBC (4.30-5.90) m/uL Hgb (13.0-17.5) gm/dL Hct (39.0-53.0) % Neutrophils # (1.3-7.7) k/uL ABG pH (7.35-7.45) ABG pO2 (83-108) mmHg ABG HCO3 (21-25) mmol/L ABG Total CO2 (19-24) mmol/L ABG O2 Saturation (94-97) % Sodium 130 L 130 L (137-145) mmol/L Potassium 2.7 L* 2.9 L (3.5-5.1) mmol/L Chloride 87 L 90 L (98-107) mmol/L Carbon Dioxide 35 H 34 H (22-30) mmol/L BUN 57 H 50 H (9-20) mg/dL Creatinine 2.47 H 2.15 H (0.66-1.25) mg/dL Glucose 101 H 123 H (74-99) mg/dL POC Glucose (mg/dL) (75-99) mg/dL Total Protein (6.3-8.2) g/dL Albumin (3.5-5.0) g/dL Procalcitonin 0.24 H (0.02-0.09) ng/mL 10/08/20 10/08/20 10/08/20 Range/Units 00:20 04:30 04:30 WBC 12.9 H (3.8-10.6) k/uL RBC 3.50 L (4.30-5.90) m/uL Hgb 10.4 L (13.0-17.5) gm/dL Hct 30.9 L (39.0-53.0) % Neutrophils # 10.7 H (1.3-7.7) k/uL ABG pH (7.35-7.45) ABG pO2 (83-108) mmHg ABG HCO3 (21-25) mmol/L ABG Total CO2 (19-24) mmol/L ABG O2 Saturation (94-97) % Sodium 132 L (137-145) mmol/L Potassium 3.1 L (3.5-5.1) mmol/L Chloride 92 L (98-107) mmol/L Carbon Dioxide 33 H (22-30) mmol/L BUN 47 H (9-20) mg/dL Creatinine 1.96 H (0.66-1.25) mg/dL Glucose 123 H (74-99) mg/dL POC Glucose (mg/dL) 119 H (75-99) mg/dL Total Protein 5.8 L (6.3-8.2) g/dL Albumin 3.2 L (3.5-5.0) g/dL Procalcitonin (0.02-0.09) ng/mL 10/08/20 10/08/20 Range/Units 05:22 06:23 WBC (3.8-10.6) k/uL RBC (4.30-5.90) m/uL Hgb (13.0-17.5) gm/dL Hct (39.0-53.0) % Neutrophils # (1.3-7.7) k/uL ABG pH 7.52 H (7.35-7.45) ABG pO2 79 L (83-108) mmHg ABG HCO3 32 H (21-25) mmol/L ABG Total CO2 33 H (19-24) mmol/L ABG O2 Saturation 97.2 H (94-97) % Sodium (137-145) mmol/L Potassium (3.5-5.1) mmol/L Chloride (98-107) mmol/L Carbon Dioxide (22-30) mmol/L BUN (9-20) mg/dL Creatinine (0.66-1.25) mg/dL Glucose (74-99) mg/dL POC Glucose (mg/dL) 111 H (75-99) mg/dL Total Protein (6.3-8.2) g/dL Albumin (3.5-5.0) g/dL Procalcitonin (0.02-0.09) ng/mL Assessment and Plan Plan: Assessment and plan #1 cardiac arrest with ventricular tachycardia #2 hyponatremia #3 hypokalemia #4 acute metabolic encephalopathy #5 systolic congestive heart failure acute on chronic #6 acute on chronic kidney injury #7 nonischemic cardiomyopathy Plan From cardiology's perspective, we'll continue amiodarone, we will also add labetalol to the patient's medication regime today. DNP note has been reviewed, I agree with a documented findings and plan of care. Patient was seen and examined.
--- NOTE | 2020-10-08 09:54 | P.PN ---
Subjective Patient is seen in follow-up for acute kidney injury and electrolyte imbalance. Potassium level 3.1 this morning. Sodium level is up to 132. Renal function also improving. Creatinine 1.96 this morning. He is intubated and is on 50% FiO2. Off lidocaine and amiodarone drip. Fluids were stopped this morning. Nonoliguric. Vital signs are stable. General: The patient appeared well nourished and normally developed. HEENT: Intubated. LUNGS: Breath sounds decreased. HEART: Regular rate and rhythm. ABDOMEN: No gross distention. EXTREMITITES: No edema. Objective - Vital Signs Vital signs: Vital Signs Temp 98.0 F 10/08/20 08:00 Pulse 68 10/08/20 09:30 Resp 21 10/08/20 09:30 BP 148/63 10/08/20 07:00 Pulse Ox 99 10/08/20 09:30 Intake & Output 10/07/20 10/08/20 10/08/20 18:59 06:59 18:59 Intake Total 2714.263 2690.444 714.000 Output Total 1945 1685 405 Balance 759.635 8407.444 309.000 Weight 64.2 kg Intake: IV 2100 1700 510 0.9% NaCl with KCl 40 Meq 100 /l 1,000 ml @ 100 mls/hr IV .Q10H [facility] Rx#: [id number] Calcium Gluconate 1 gm In 100 Sodium Chloride 0.9% 100 ml @ 100 mls/hr IVPB ONCE ONE Rx#:[id number] Potassium Chloride 10 meq 800 500 300 In Water For Injection 1 100ml.bag @ 100 mls/hr IVPB Q1HR [facility] Rx#: [id number] Sodium Chloride 0.9% 1, 1100 1200 210 000 ml @ 10 mls/hr IV . Q24H [facility] Rx#:[id number] Intake, IV Titration 334.263 470.444 50.000 Amount Clevidipine Butyrate 25 50.000 197.800 50.000 mg In Empty Bag 1 bag @ 1 MG/HR 2 mls/hr IV .Q24H [facility] Rx#:[id number] Lidocaine-D5w Pmx 2G/ 180.875 250Ml 2,000 mg In Dextrose/Water 1 250ml. bag @ 1 MG/MIN 7.5 mls/hr IV .Q24H [facility] Rx#: [id number] propofoL 1,000 mg In 103.388 272.644 Empty Bag 1 bag @ Titrate IV .Q0M [facility] Rx#: [id number] Tube Feeding 220 430 124 Other 60 90 30 Output: Urine 1945 1685 405 Other: Voiding Method Indwelling Catheter Indwelling Catheter ABP, PAP, CO, CI - Last Documented Arterial Blood Pressure 145/51 - Labs CBC & Chem 7: 10/08/20 04:30 10/08/20 04:30 Labs: Abnormal Lab Results - Last 24 Hours (Table) 10/07/20 10/07/20 10/07/20 Range/Units 03:38 12:15 21:40 WBC (3.8-10.6) k/uL RBC (4.30-5.90) m/uL Hgb (13.0-17.5) gm/dL Hct (39.0-53.0) % Neutrophils # (1.3-7.7) k/uL ABG pH (7.35-7.45) ABG pO2 (83-108) mmHg ABG HCO3 (21-25) mmol/L ABG Total CO2 (19-24) mmol/L ABG O2 Saturation (94-97) % Sodium 130 L 130 L (137-145) mmol/L Potassium 2.7 L* 2.9 L (3.5-5.1) mmol/L Chloride 87 L 90 L (98-107) mmol/L Carbon Dioxide 35 H 34 H (22-30) mmol/L BUN 57 H 50 H (9-20) mg/dL Creatinine 2.47 H 2.15 H (0.66-1.25) mg/dL Glucose 101 H 123 H (74-99) mg/dL POC Glucose (mg/dL) (75-99) mg/dL Total Protein (6.3-8.2) g/dL Albumin (3.5-5.0) g/dL Procalcitonin 0.24 H (0.02-0.09) ng/mL 10/08/20 10/08/20 10/08/20 Range/Units 00:20 04:30 04:30 WBC 12.9 H (3.8-10.6) k/uL RBC 3.50 L (4.30-5.90) m/uL Hgb 10.4 L (13.0-17.5) gm/dL Hct 30.9 L (39.0-53.0) % Neutrophils # 10.7 H (1.3-7.7) k/uL ABG pH (7.35-7.45) ABG pO2 (83-108) mmHg ABG HCO3 (21-25) mmol/L ABG Total CO2 (19-24) mmol/L ABG O2 Saturation (94-97) % Sodium 132 L (137-145) mmol/L Potassium 3.1 L (3.5-5.1) mmol/L Chloride 92 L (98-107) mmol/L Carbon Dioxide 33 H (22-30) mmol/L BUN 47 H (9-20) mg/dL Creatinine 1.96 H (0.66-1.25) mg/dL Glucose 123 H (74-99) mg/dL POC Glucose (mg/dL) 119 H (75-99) mg/dL Total Protein 5.8 L (6.3-8.2) g/dL Albumin 3.2 L (3.5-5.0) g/dL Procalcitonin (0.02-0.09) ng/mL 10/08/20 10/08/20 Range/Units 05:22 06:23 WBC (3.8-10.6) k/uL RBC (4.30-5.90) m/uL Hgb (13.0-17.5) gm/dL Hct (39.0-53.0) % Neutrophils # (1.3-7.7) k/uL ABG pH 7.52 H (7.35-7.45) ABG pO2 79 L (83-108) mmHg ABG HCO3 32 H (21-25) mmol/L ABG Total CO2 33 H (19-24) mmol/L ABG O2 Saturation 97.2 H (94-97) % Sodium (137-145) mmol/L Potassium (3.5-5.1) mmol/L Chloride (98-107) mmol/L Carbon Dioxide (22-30) mmol/L BUN (9-20) mg/dL Creatinine (0.66-1.25) mg/dL Glucose (74-99) mg/dL POC Glucose (mg/dL) 111 H (75-99) mg/dL Total Protein (6.3-8.2) g/dL Albumin (3.5-5.0) g/dL Procalcitonin (0.02-0.09) ng/mL Microbiology - Last 24 Hours (Table) 10/05/20 22:36 Gram Stain - Final Sputum Sputum Culture - Final Assessment and Plan Plan: Assessment: 1. Acute kidney injury secondary to ATN secondary to cardiopulmonary arrest. Nonoliguric. Creatinine was 3.1 on admission and is 1.96 today. No hydronephrosis noted on kidney ultrasound. Left kidney not visualized. 2. Chronic kidney disease stage IV with baseline creatinine in the range of 2.3-2.5 this year. 3. Status post cardiopulmonary arrest with down time of about 5-15 minutes. 4. Severe hypokalemia secondary to poor intake and diuretics. Magnesium normal. Urine potassium 64 suggestive of renal potassium wasting however there is a component of secondary hyperaldosteronism due to volume depletion which would lead to renal potassium losses. 5. Metabolic alkalosis secondary to volume contraction from diuretics. Better. 6. Hypovolemic hyponatremia. Slowly improving. Urine sodium 20 and urine osmolality 300. 7. Chronic systolic CHF with ejection fraction of 20-25% with mild to moderate mitral regurgitation. 8. Acute hypoxic respiratory failure. Plan: Continue with potassium replacement. Wean FiO2. Continue to monitor renal function and urine output.
--- NOTE | 2020-10-08 10:37 | PN ---
PROGRESS NOTE PULMONARY/CRITICAL CARE PROGRESS NOTE: DATE OF SERVICE: 10/08/2020 Critical care time 33 minutes. This is a patient who we saw in consultation a couple days ago. He had an out-of- hospital cardiopulmonary arrest. He had bystander CPR for about 10 minutes. He was intubated at the scene by EMS. The patient has a history of cardiomyopathy with a very poor ejection fraction of only 20%. Anyway, yesterday, we placed a central line and art line in him. He is currently on the ventilator. He is on the volume assist- control mode rate of 20, tidal volume 450, FiO2 of 50%, PEEP of 5. Blood gases show pO2 of 79, pCO2 of 40, pH of 7.52. This blood gas when interpreted is consistent with a relative hypoxemia and a metabolic alkalosis. The patient is scheduled for an EEG today. His saline is running at 100 mL an hour. Will turn it down to KVO. He is on Cleviprex at 10 mg an hour, propofol at 60 mcg/kg/minute and Vital high-protein at goal which is 42 mL an hour. Currently, the patient is not making much progress toward weaning and extubation. He is still quite agitated. Current vital signs are reviewed. His most recent temperature is 98 degrees, heart rate 68, respiratory rate 20, blood pressure 145/51, saturations are 99%. Appears in no acute distress. Currently sedated. HEENT: Examination is grossly unremarkable. He has an orally placed endotracheal tube and NG tube. NECK: Supple, full range of motion. No adenopathy. Neck veins are flat. CARDIOVASCULAR: Examination reveals regular rhythm and rate. Heart rate 68 beats per minute. S1, S2 normal. LUNGS: Reveal coarse rhonchi. Breath sounds are diminished. Breath sounds equal bilaterally. ABDOMEN: Soft, bowel sounds are heard. EXTREMITIES: Intact. No edema. SKIN: Without rash. NEUROLOGIC: Examination cannot be adequately assessed. LABS: Reviewed. White count 12.9, hemoglobin 10.4, hematocrit 30.9,. platelet count is normal. Blood gases have been noted. PO2 is 79, pCO2 of 40, pH is 7.52. Sodium 132, potassium 3.1, chloride 92, CO2 is 33, anion gap is 7. BUN and creatinine were 47 and 1.96. Albumin is 3.2. Microbiology is negative. Chest x-ray from October 08 shows a pattern of maybe mild fluid overload. Endotracheal tube and central line are in good position. CURRENT MEDICATIONS: Reviewed. The patient is on Tylenol, amiodarone, chlorhexidine, Cleviprex, famotidine, heparin, Apresoline, DuoNeb, labetalol, Narcan, Diprivan, and thiamine. ASSESSMENT: 1. [id number] cardiopulmonary arrest with cardiopulmonary resuscitation and eventual return of spontaneous circulation, down time about 5-10 minutes. The patient was intubated by EMS at the scene. 2. Hypoxemic respiratory failure, requiring intubation and mechanical ventilation on October 05, 2020. 3. Rule out anoxic brain injury. 4. Ventricular tachycardia, currently off lidocaine and amiodarone. 5. Normal brain CT. 6. History of nonischemic cardiomyopathy with ejection fraction of 20%. 7. Stage 3 chronic kidney disease. 8. 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 9. History of hyperlipidemia. 10.History of essential hypertension. 11.Severe metabolic alkalosis. 12.History of colon cancer, status post colon resection. 13.Benign prostatic hypertrophy. 14.History of restless legs syndrome. PLAN: Currently, the patient will be re-sedated because he is having an EEG done sometime today. Afterwards, we will try a daily interruption of sedation and spontaneous breathing trial. We do have to get his potassium up above 4.5 to help correct a metabolic alkalosis. Central line and art line were placed yesterday. Overall prognosis remains guarded. He may have sustained some anoxic brain injury. Neurology is on the case. Will continue to follow. Critical care time 33 minutes. MMODL / IJN: [id number] /
[2020-10-08] MEDS ORDERED: Potassium Replacement Protocol 1 EACH MISC MISCELLANE PRN (12:37)
[2020-10-08] MEDS ORDERED: POTASSIUM BICARBONATE/CIT AC 20 MEQ TABLET.EFF PO ONE (13:00)
--- NOTE | 2020-10-08 14:05 | P.PN ---
Subjective Progress Note Date: 10/08/20 (delayed charting seen at 1045) Principal diagnosis: unresponsive Patient is a 70-year-old male with a history of systolic cardiomyopathy with ejection fraction 20% nonischemic, hypertension, COPD, and colon cancer who initially was found down by his , she started CPR and called EMS. When they arrived the patient was pulseless was felt to have a downtime of around 10 jovani josh. He was found to have V. tach but spontaneously converted to sinus rhythm and Parker was achieved. However the patient was alert and responsive and was intubated. Cardiology evaluated the EKG on arrival to the hospital and did not recommend any immediate intervention in the [employer]. Initial vital signs in the ER showed a temperature of 98, pulse 67, respirations 10, blood pressure 137/81, and oxygenation saturation 94%. Initial laboratory analysis was remarkable for a sodium of 121, potassium 2.2, BUN 77, creatinine 3.01 (baseline is 2.8-2.9), troponin 0.074, BNP 12,200. Rotavirus antigen was negative, white blood cell count 11.3 platelet count 524. Initial ABG showed a pH of 7.58 pCO2 of 48, PaO2 of 335. He was started on a small amount of normal saline and potassium was replaced. He is admitted to the ICU. He continued to have episodes of V. tach overnight ultimately requiring amiodarone and lidocaine drip. On the morning after admission he was still hyponatremic and hypokalemic. He is seen by neurology who asked that he have interactions and sedation for proper neurologic examination. His potassium corrected on 10/06 and then he developed a junctional rhythm. His amiodarone was stopped. He continued to struggle with hyponatremia and hypokalemia. On 10/07 the IV lidocaine was stopped and he was given oral amiodarone and maintained normal sinus rhythm. He was w aking up and following commands when sedation was held. Patient seen and examined at bedside. No acute events overnight. waking and following commands General: non toxic, no distress, appears at stated age Derm: warm, dry Head: atraumatic, normocephalic, symmetric Eyes: EOMI, no lid lesions, anicteric sclera Mouth: no lip lesion, mucus membranes moist Cardiovascular: S1S2 reg, no murmur, positive posterior tibial pulse bilateral, Lungs: Coarse breath sounds bilaterally, no rhonchi, no rales , no accessory muscle use, on vent Abdominal: soft, nontender to palpation, no guarding, no appreciable organomegaly Ext: no gross muscle atrophy, no edema, no contractures Neuro: Positive cough, breathing over vent, no withdrawal to pain in all 4 extremities Psych: Sedated on vent Aborted sudden cardiac with ventricular tachycardia -Cardiology recommendations -on oral amio -Attempt to correct electrolyte abnormalities Hyponatremia secondary to dehydration -improved -Continue with IV fluids -Nephrology recs appreciated - follow lytes Hypokalemia -Replace and recheck -Magnesium intact Acute metabolic encephalopathy - improving - supportive care - neuro recs Systolic congestive heart failure with ejection fraction 20-25% -No acute exacerbation noted despite elevated BNP -IV fluids -Hold Zaroxolyn, Lasix -Hold Coreg secondary to hypotension -Not on URIEL inhibitor or ARB secondary to recent acute kidney injury Acute kidney injury and chronic kidney disease IV with baseline creatinine 2.9, metabolic alkalosis -Avoid nephrotoxic agents -IV fluids -Repeat labs in a.m. -Consult nephrology DVT prophylaxis: Heparin Discussed with: Nursing Anticipated discharge: 5-[address]: SNF [facility] A total of 35 minutes was spent on the care of this complex patient more than 50% of the time was spent in counseling and care coordination. Objective - Vital Signs Vital signs: Vital Signs Temp 98.0 F 10/08/20 08:00 Pulse 64 10/08/20 13:00 Resp 18 10/08/20 13:00 BP 148/63 10/08/20 07:00 Pulse Ox 97 10/08/20 13:00 Intake & Output 10/07/20 10/08/20 10/08/20 18:59 06:59 18:59 Intake Total 2714.263 2690.444 1089.333 Output Total 1945 1685 805 Balance 043.058 4794.444 284.333 Weight 64.2 kg Intake: IV 2100 1700 650 0.9% NaCl with KCl 40 Meq 100 /l 1,000 ml @ 100 mls/hr IV .Q10H [facility] Rx#: [id number] Calcium Gluconate 1 gm In 100 Sodium Chloride 0.9% 100 ml @ 100 mls/hr IVPB ONCE ONE Rx#:[id number] Potassium Chloride 10 meq 800 500 400 In Water For Injection 1 100ml.bag @ 100 mls/hr IVPB Q1HR [facility] Rx#: [id number] Sodium Chloride 0.9% 1, 1100 1200 250 000 ml @ 10 mls/hr IV . Q24H [facility] Rx#:[id number] Intake, IV Titration 334.263 470.444 117.333 Amount Clevidipine Butyrate 25 50.000 197.800 117.333 mg In Empty Bag 1 bag @ 1 MG/HR 2 mls/hr IV .Q24H [facility] Rx#:[id number] Lidocaine-D5w Pmx 2G/ 180.875 250Ml 2,000 mg In Dextrose/Water 1 250ml. bag @ 1 MG/MIN 7.5 mls/hr IV .Q24H [facility] Rx#: [id number] propofoL 1,000 mg In 103.388 272.644 Empty Bag 1 bag @ Titrate IV .Q0M [facility] Rx#: [id number] Tube Feeding 220 430 292 Other 60 90 30 Output: Urine 1945 1685 805 Other: Voiding Method Indwelling Catheter Indwelling Catheter Indwelling Catheter ABP, PAP, CO, CI - Last Documented Arterial Blood Pressure 128/41 - Labs CBC & Chem 7: 10/08/20 04:30 10/08/20 11:00 Labs: Abnormal Lab Results - Last 24 Hours (Table) 10/07/20 10/07/20 10/08/20 Range/Units 03:38 21:40 00:20 WBC (3.8-10.6) k/uL RBC (4.30-5.90) m/uL Hgb (13.0-17.5) gm/dL Hct (39.0-53.0) % Neutrophils # (1.3-7.7) k/uL ABG pH (7.35-7.45) ABG pO2 (83-108) mmHg ABG HCO3 (21-25) mmol/L ABG Total CO2 (19-24) mmol/L ABG O2 Saturation (94-97) % Sodium 130 L (137-145) mmol/L Potassium 2.9 L (3.5-5.1) mmol/L Chloride 90 L (98-107) mmol/L Carbon Dioxide 34 H (22-30) mmol/L BUN 50 H (9-20) mg/dL Creatinine 2.15 H (0.66-1.25) mg/dL Glucose 123 H (74-99) mg/dL POC Glucose (mg/dL) 119 H (75-99) mg/dL Total Protein (6.3-8.2) g/dL Albumin (3.5-5.0) g/dL Procalcitonin 0.24 H (0.02-0.09) ng/mL 10/08/20 10/08/20 10/08/20 Range/Units 04:30 04:30 05:22 WBC 12.9 H (3.8-10.6) k/uL RBC 3.50 L (4.30-5.90) m/uL Hgb 10.4 L (13.0-17.5) gm/dL Hct 30.9 L (39.0-53.0) % Neutrophils # 10.7 H (1.3-7.7) k/uL ABG pH 7.52 H (7.35-7.45) ABG pO2 79 L (83-108) mmHg ABG HCO3 32 H (21-25) mmol/L ABG Total CO2 33 H (19-24) mmol/L ABG O2 Saturation 97.2 H (94-97) % Sodium 132 L (137-145) mmol/L Potassium 3.1 L (3.5-5.1) mmol/L Chloride 92 L (98-107) mmol/L Carbon Dioxide 33 H (22-30) mmol/L BUN 47 H (9-20) mg/dL Creatinine 1.96 H (0.66-1.25) mg/dL Glucose 123 H (74-99) mg/dL POC Glucose (mg/dL) (75-99) mg/dL Total Protein 5.8 L (6.3-8.2) g/dL Albumin 3.2 L (3.5-5.0) g/dL Procalcitonin (0.02-0.09) ng/mL 10/08/20 10/08/20 Range/Units 06:23 11:00 WBC (3.8-10.6) k/uL RBC (4.30-5.90) m/uL Hgb (13.0-17.5) gm/dL Hct (39.0-53.0) % Neutrophils # (1.3-7.7) k/uL ABG pH (7.35-7.45) ABG pO2 (83-108) mmHg ABG HCO3 (21-25) mmol/L ABG Total CO2 (19-24) mmol/L ABG O2 Saturation (94-97) % Sodium (137-145) mmol/L Potassium 3.4 L (3.5-5.1) mmol/L Chloride (98-107) mmol/L Carbon Dioxide (22-30) mmol/L BUN (9-20) mg/dL Creatinine (0.66-1.25) mg/dL Glucose (74-99) mg/dL POC Glucose (mg/dL) 111 H (75-99) mg/dL Total Protein (6.3-8.2) g/dL Albumin (3.5-5.0) g/dL Procalcitonin (0.02-0.09) ng/mL Microbiology - Last 24 Hours (Table) 10/05/20 22:36 Gram Stain - Final Sputum Sputum Culture - Final
--- NOTE | 2020-10-08 18:44 | P.PN ---
Subjective Progress Note Date: 10/08/20 The patient is seen at bedside and he continues to be intubated on ventilator and on sedation. He is on propofol 60 mcg/kg/min. Per the patient nurse when she turned it down to 25mcg/kg/min patient was following commands and squeezing both her hands moving all extremities symmetrically according to her. And no seizure-like activity is noted when the sedation comes down. 11 the patient gets agitated so therefore the the sedation had to be increased back to 60 mcg/kg/min. Objective - Vital Signs Vital signs: Vital Signs Temp 98.0 F 10/08/20 08:00 Pulse 63 10/08/20 18:00 Resp 20 10/08/20 18:00 BP 148/63 10/08/20 07:00 Pulse Ox 97 10/08/20 18:00 Intake & Output 10/07/20 10/08/20 10/08/20 18:59 06:59 18:59 Intake Total 2714.263 2690.444 1751.920 Output Total 1945 1685 1400 Balance 636.421 8216.444 351.920 Weight 64.2 kg 64.2 kg Intake: IV 2100 1700 900 0.9% NaCl with KCl 40 Meq 100 /l 1,000 ml @ 100 mls/hr IV .Q10H [facility] Rx#: [id number] Calcium Gluconate 1 gm In 100 Sodium Chloride 0.9% 100 ml @ 100 mls/hr IVPB ONCE ONE Rx#:[id number] Potassium Chloride 10 meq 800 500 600 In Water For Injection 1 100ml.bag @ 100 mls/hr IVPB Q1HR [facility] Rx#: [id number] Sodium Chloride 0.9% 1, 1100 1200 300 000 ml @ 10 mls/hr IV . Q24H [facility] Rx#:[id number] Intake, IV Titration 334.263 470.444 383.920 Amount Clevidipine Butyrate 25 50.000 197.800 186.000 mg In Empty Bag 1 bag @ 1 MG/HR 2 mls/hr IV .Q24H [facility] Rx#:[id number] Lidocaine-D5w Pmx 2G/ 180.875 250Ml 2,000 mg In Dextrose/Water 1 250ml. bag @ 1 MG/MIN 7.5 mls/hr IV .Q24H [facility] Rx#: [id number] propofoL 1,000 mg In 103.388 272.644 197.92 Empty Bag 1 bag @ Titrate IV .Q0M [facility] Rx#: [id number] Tube Feeding 220 430 438 Other 60 90 30 Output: Urine 1945 1685 1400 Other: Voiding Method Indwelling Catheter Indwelling Catheter Indwelling Catheter ABP, PAP, CO, CI - Last Documented Arterial Blood Pressure 137/43 - Exam GENERAL: The patient is lying and intubated on ventilator and on IV sedation (Propofol 60mcg/kg/min). LUNG: Intubated and on Ventilator and breathing over the vent.. ABDOMEN/GI: Bowel sounds present in all 4 quadrants. No tenderness to palpation throughout. NEUROLOGICAL: Limited since on sedation and intubated. Higher mental function: GCS 10: (E3, VT1, M6). Comatose and not following commands. Cranial nerves: The pupils are round, equal 2-3mm bilaterally and reactive to light. Pupils primary gaze are midline. No facial weakness noted throughout. Motor: Gait is deferred. The strength could not be assessed because of bassem tion,Normal tone and bulk. Sensation: Unable to assess. Reflexes (right/left): 1+ throughout. Plantars are mute bilaterally. - Labs CBC & Chem 7: 10/08/20 04:30 10/08/20 11:00 Labs: Abnormal Lab Results - Last 24 Hours (Table) 10/07/20 10/08/20 10/08/20 Range/Units 21:40 00:20 04:30 WBC 12.9 H (3.8-10.6) k/uL RBC 3.50 L (4.30-5.90) m/uL Hgb 10.4 L (13.0-17.5) gm/dL Hct 30.9 L (39.0-53.0) % Neutrophils # 10.7 H (1.3-7.7) k/uL ABG pH (7.35-7.45) ABG pO2 (83-108) mmHg ABG HCO3 (21-25) mmol/L ABG Total CO2 (19-24) mmol/L ABG O2 Saturation (94-97) % Sodium 130 L (137-145) mmol/L Potassium 2.9 L (3.5-5.1) mmol/L Chloride 90 L (98-107) mmol/L Carbon Dioxide 34 H (22-30) mmol/L BUN 50 H (9-20) mg/dL Creatinine 2.15 H (0.66-1.25) mg/dL Glucose 123 H (74-99) mg/dL POC Glucose (mg/dL) 119 H (75-99) mg/dL Total Protein (6.3-8.2) g/dL Albumin (3.5-5.0) g/dL 10/08/20 10/08/20 10/08/20 Range/Units 04:30 05:22 06:23 WBC (3.8-10.6) k/uL RBC (4.30-5.90) m/uL Hgb (13.0-17.5) gm/dL Hct (39.0-53.0) % Neutrophils # (1.3-7.7) k/uL ABG pH 7.52 H (7.35-7.45) ABG pO2 79 L (83-108) mmHg ABG HCO3 32 H (21-25) mmol/L ABG Total CO2 33 H (19-24) mmol/L ABG O2 Saturation 97.2 H (94-97) % Sodium 132 L (137-145) mmol/L Potassium 3.1 L (3.5-5.1) mmol/L Chloride 92 L (98-107) mmol/L Carbon Dioxide 33 H (22-30) mmol/L BUN 47 H (9-20) mg/dL Creatinine 1.96 H (0.66-1.25) mg/dL Glucose 123 H (74-99) mg/dL POC Glucose (mg/dL) 111 H (75-99) mg/dL Total Protein 5.8 L (6.3-8.2) g/dL Albumin 3.2 L (3.5-5.0) g/dL 10/08/20 Range/Units 11:00 WBC (3.8-10.6) k/uL RBC (4.30-5.90) m/uL Hgb (13.0-17.5) gm/dL Hct (39.0-53.0) % Neutrophils # (1.3-7.7) k/uL ABG pH (7.35-7.45) ABG pO2 (83-108) mmHg ABG HCO3 (21-25) mmol/L ABG Total CO2 (19-24) mmol/L ABG O2 Saturation (94-97) % Sodium (137-145) mmol/L Potassium 3.4 L (3.5-5.1) mmol/L Chloride (98-107) mmol/L Carbon Dioxide (22-30) mmol/L BUN (9-20) mg/dL Creatinine (0.66-1.25) mg/dL Glucose (74-99) mg/dL POC Glucose (mg/dL) (75-99) mg/dL Total Protein (6.3-8.2) g/dL Albumin (3.5-5.0) g/dL Microbiology - Last 24 Hours (Table) 10/05/20 22:36 Gram Stain - Final Sputum Sputum Culture - Final Assessment and Plan Assessment: This is a 70-year-old gentleman that presented to the emergency department on 10/05/2020 for syncopal episode. It is documented the patient the had no pulse lasting for 5-10 minutes and per the patient's girlfriend patient had questionable seizure-like activity. He has runs of Vib/Vtach overnight and today. Syncopal episode: Seemed cardiac in etiology. ?seizure-like activity. If it is a seizure possibly could be provoked because of the hyponatremia, hypokalecemia which is acute. Ecephalopathy due to patient cardiac arrest, ?seizure, electrolyte imbalance and sedation use (Propofol) Cardiac arrest with V. tach Runs of V-fib and V tach--resolved Acute hyponatremia--improving (last Na 132). Electrolyte imbalance (hyponatremia, Hypokalemia, hypocaclemia)--improving Elevated troponin Elevated liver function tests likely reactive History of nonischemic cardiomyopathy with ejection fraction of 20% Acute on chronic kidney insufficiency--improving Dyslipidemia COPD Plan: In the ED the patient was given 1 g dose of Keppra loading. EEG 10/07/20: It is abnormal routine EEG. The burst suppression seen is likely due to medication effect (IV sedation). The background slowing consistent with moderate to severe encephalopathy likely due to medication effect. There are no focal slowing, epileptiform discharges or seizure seen during the study. The excessive fast activity is likely due to medication effect. I did not start the patient on antiepileptic drugs since no epileptic discharges or seizure seen on the EEG. Because the patient's condition is improving and there is no focality or any seizure-like activity since the hospital stay we'll hold off on the EEG. The nurse was notified of the patient has any further seizure-like activity noted by us and we'll get a repeat EEG that he. Recommend getting MRI of the brain without gadolinium to rule out any intracranial abnormality once patient is stable. Continue thiamine 100 mg IV daily. Ammonia level: 11 (normal). TSH: 3.2 (normal). Cardiology is on board. I will defer correcting hyponatremia and rest of electrolyte imbalance to the primary/ICU team. The plan was discussed with ICU team and primary team. Will continue to follow sporadically. Terry Rivas M.D. Neuro-hospitalist Time with Patient: Less than 30
[2020-10-08] MEDS ORDERED: POTASSIUM CHLORIDE 20 MEQ in WATER FOR INJECTION 1 100ML.BAG IVPB STA (19:18)
[2020-10-08] MEDS: LABETALOL 200 MG TAB PO SCH (22:29)
[2020-10-09] MEDS: HEPARIN SODIUM,PORCINE 5,000 UNIT/ML 1 ML VIAL SQ SCH ×3 (00:14→17:09)
[2020-10-09 02:08] LABS: Glucose,Whole Blood 95 mg/dL (75-99)
[2020-10-09] MEDS: IPRATROPIUM-ALBUTEROL 3 ML NEB INHALATION SCH ×6 (03:21→23:05)
[2020-10-09 05:01] LABS: ABG Base Excess 5.6 mmol/L; ABG HCO3 29 mmol/L (21-25); ABG Oxygen Saturation 97.8 % (94-97); ABG PCO2 40 mmHg (35-45); ABG PH 7.47 (7.35-7.45); ABG PO2 102 mmHg (83-108); ABG TCO2 31 mmol/L (19-24); Allen Test Performed? Yes
[2020-10-09 05:23] LABS: HCT 28.8 % (39.0-53.0); HGB 9.5 gm/dL (13.0-17.5); MCH 29.4 pg (25.0-35.0); MCHC 32.9 g/dL (31.0-37.0); MCV 89.4 fL (80.0-100.0); Mean Platelet Volume 6.8; Platelet Count 267 k/uL (150-450); RBC 3.22 m/uL (4.30-5.90); RDW 15.2 % (11.5-15.5); WBC 8.8 k/uL (3.8-10.6)
[2020-10-09 05:33] LABS: Ionized Calcium 4.5 mg/dL (4.5-5.3)
[2020-10-09 05:45] LABS: Calcium 8.6 mg/dL (8.4-10.2); Magnesium 2.5 mg/dL (1.6-2.3); Phosphorus 5.6 mg/dL (2.5-4.5); Potassium 4.1 mmol/L (3.5-5.1); Total Bilirubin 0.5 mg/dL (0.2-1.3); Total Protein 5.6 g/dL (6.3-8.2)
[2020-10-09] MEDS ORDERED: POTASSIUM CHLORIDE 20 MEQ in WATER FOR INJECTION 1 100ML.BAG IVPB SCH (06:15)
[2020-10-09] MEDS ORDERED: POTASSIUM BICARBONATE/CIT AC 20 MEQ TABLET.EFF NG-TUBE SCH (07:00)
[2020-10-09] MEDS: hydrALAZINE HCL 50 MG TAB PO SCH ×3 (08:29→22:03)
[2020-10-09] MEDS: AMIODARONE 200 MG TAB PO SCH ×3 (08:29→22:03)
[2020-10-09] MEDS: THIAMINE 100 MG/ML 2 ML VIAL IVP SCH (08:29)
[2020-10-09] MEDS: LABETALOL 200 MG TAB PO SCH ×2 (08:29→22:17)
[2020-10-09] MEDS: CHLORHEXIDINE GLUCONATE 15 ML CUP MUCOUS MEM SCH (08:29)
[2020-10-09] MEDS: FAMOTIDINE 20 MG TAB PO SCH (08:29)
--- NOTE | 2020-10-09 09:03 | XR ---
EXAMINATION TYPE: XR chest 1V portable DATE OF EXAM: 10/09/2020 COMPARISON: Prior chest x-ray 10/08/2020 HISTORY: Intubated TECHNIQUE: Single frontal view of the chest is obtained. FINDINGS: Endotracheal tube, NG tube, left jugular central venous catheter are overlying appropriate positions. There is no evident pneumothorax. Retrocardiac density persists. There may be some improv ed aeration at the right lung base, improvement in interstitium is noted. Heart size is stable. Aorta is dense. IMPRESSION: There may be some improvement in aeration, volume status. Persistent retrocardiac densit y could be indicative of edema, pneumonia, no sizable effusion evident.
[2020-10-09] MEDS: AMPICILLIN-SULBACTAM 1.5 GM in SODIUM CHLORIDE 0.9% 50 ML IVPB SCH ×2 (09:46→17:09)
[2020-10-09] MEDS: FLUCONAZOLE IN NACL,ISO-OSM 100 MG in SALINE 1 50ML.BAG IVPB SCH (09:46)
[2020-10-09] MEDS: SODIUM CHLORIDE 0.9% 1,000 ML IV SCH (10:45)
--- NOTE | 2020-10-09 11:14 | P.PN ---
Subjective Patient is seen in follow-up for acute kidney injury and electrolyte imbalance. Potassium level 4.1 this morning. Sodium level stable. Renal function also stable. He was extubated this morning. Currently on high flow cannula. Vital signs are stable. General: The patient appeared well nourished and normally developed. HEENT: Normocephalic atraumatic. LUNGS: Breath sounds decreased. HEART: Regular rate and rhythm. ABDOMEN: No gross distention. EXTREMITITES: No edema. Objective - Vital Signs Vital signs: Vital Signs Temp 98.0 F 10/09/20 08:00 Pulse 86 10/09/20 10:30 Resp 16 10/09/20 10:30 BP 100/48 10/09/20 06:00 Pulse Ox 84 L 10/09/20 10:30 Intake & Output 10/08/20 10/09/20 10/09/20 18:59 06:59 18:59 Intake Total 1751.920 798 222 Output Total 1400 1180 540 Balance 351.920 -382 -318 Weight 64.2 kg Intake: IV 900 220 40 Potassium Chloride 10 meq 600 100 In Water For Injection 1 100ml.bag @ 100 mls/hr IVPB Q1HR [facility] Rx#: [id number] Sodium Chloride 0.9% 1, 300 120 40 000 ml @ 10 mls/hr IV . Q24H [facility] Rx#:[id number] Intake, IV Titration 383.920 150 100 Amount Clevidipine Butyrate 25 186.000 50 mg In Empty Bag 1 bag @ 1 MG/HR 2 mls/hr IV .Q24H [facility] Rx#:[id number] propofoL 1,000 mg In 197.92 100 100 Empty Bag 1 bag @ Titrate IV .Q0M [facility] Rx#: [id number] Tube Feeding 438 338 52 Other 30 90 30 Output: Urine 1400 1180 540 Other: Voiding Method Indwelling Catheter Indwelling Catheter ABP, PAP, CO, CI - Last Documented Arterial Blood Pressure 157/52 - Labs CBC & Chem 7: 10/09/20 05:00 10/09/20 05:00 Labs: Abnormal Lab Results - Last 24 Hours (Table) 10/08/20 10/09/20 10/09/20 Range/Units 11:00 05:00 05:00 RBC 3.22 L (4.30-5.90) m/uL Hgb 9.5 L (13.0-17.5) gm/dL Hct 28.8 L (39.0-53.0) % ABG pH (7.35-7.45) ABG HCO3 (21-25) mmol/L ABG Total CO2 (19-24) mmol/L ABG O2 Saturation (94-97) % Sodium 132 L (137-145) mmol/L Potassium 3.4 L (3.5-5.1) mmol/L Chloride 95 L (98-107) mmol/L BUN 47 H (9-20) mg/dL Creatinine 1.91 H (0.66-1.25) mg/dL Phosphorus 5.6 H (2.5-4.5) mg/dL Magnesium 2.5 H (1.6-2.3) mg/dL Alkaline Phosphatase 142 H (38-126) U/L Total Protein 5.6 L (6.3-8.2) g/dL Albumin 3.0 L (3.5-5.0) g/dL 10/09/20 Range/Units 05:00 RBC (4.30-5.90) m/uL Hgb (13.0-17.5) gm/dL Hct (39.0-53.0) % ABG pH 7.47 H (7.35-7.45) ABG HCO3 29 H (21-25) mmol/L ABG Total CO2 31 H (19-24) mmol/L ABG O2 Saturation 97.8 H (94-97) % Sodium (137-145) mmol/L Potassium (3.5-5.1) mmol/L Chloride (98-107) mmol/L BUN (9-20) mg/dL Creatinine (0.66-1.25) mg/dL Phosphorus (2.5-4.5) mg/dL Magnesium (1.6-2.3) mg/dL Alkaline Phosphatase (38-126) U/L Total Protein (6.3-8.2) g/dL Albumin (3.5-5.0) g/dL Microbiology - Last 24 Hours (Table) 10/05/20 22:36 Gram Stain - Final Sputum Sputum Culture - Final Assessment and Plan Plan: Assessment: 1. Acute kidney injury secondary to ATN secondary to cardiopulmonary arrest. Nonoliguric. Creatinine was 3.1 on admission and is stable at 1.91 today. No hydronephrosis noted on kidney ultrasound. Left kidney not visualized. 2. Chronic kidney disease stage IV with baseline creatinine in the range of 2.3-2.5 this year. 3. Status post cardiopulmonary arrest with down time of about 5-15 minutes. 4. Severe hypokalemia secondary to poor intake and diuretics. Magnesium normal. Urine potassium 64 suggestive of renal potassium wasting however there is a component of secondary hyperaldosteronism due to volume depletion which would lead to renal potassium losses. Better post replacement. 5. Metabolic alkalosis secondary to volume contraction from diuretics. Better. 6. Hypovolemic hyponatremia. Slowly improving. Urine sodium 20 and urine osmolality 300. 7. Chronic systolic CHF with ejection fraction of 20-25% with mild to moderate mitral regurgitation. 8. Acute hypoxic respiratory failure. Extubated this morning. Plan: Remains off IV fluids. Continue to monitor renal function and urine output. Monitor electrolytes and replace as needed.
[2020-10-09] MEDS ORDERED: FUROSEMIDE 10 MG/ML 2 ML VIAL IV ONE (11:25)
--- NOTE | 2020-10-09 11:32 | P.PN ---
Subjective Progress Note Date: 10/09/20 This is a 70-year-old gentleman with history of nonischemic cardiomyopathy, chronic congestive heart failure, renal failure, who was brought to the hospital after an episode of loss of consciousness. Patient did receive CPR according to the paramedics, he had an episode of ventricular tachycardia for which she converted spontaneously to normal sinus rhythm. His EKG on presentation here showed diffuse ST-T changes without any ST elevation. He recently underwent a cardiac catheterization and was found to have noncritical disease involving the LAD. He has chronic renal failure. And is currently intubated in the intensive care unit. He was more agitated earlier this morning, at the time of her examination he seemed to be more calm. Patient was having bouts of ventricular tachycardia and was initiated on IV amiodarone as well as slide oh. The IV amiodarone had been discontinued because of some junctional rhythm, this morning he continues to be on lidocaine. No further episodes of ventricular tachycardia noted and the patient is currently in a sinus rhythm to sinus tachycardia this morning. This documented ejection fraction in the past has been 20-25%, his chest x-ray showed some chronic infiltrate without any significant new changes. We'll discontinue the IV lidocaine today and start the patient on oral amiodarone. Patient seen and examined this morning, continues to be on Cleviprex, blood pressure 154/56, heart rate in the 70s, normal sinus rhythm. Continues to be on mechanical ventilation. Laboratory data, white blood cell count 12.9, hemoglobin 10.4, platelet count 302. Sodium 132, potassium 3.1, chloride 92, CO2 33, BUN 47, creatinine 1.9 which is an improvement from yesterday. 10/09/2020 Patient was seen and examined this morning, he was just extubated, seemed overall to be tolerating it well at the time we were examining him. Blood p ressure 156/50 heart rate in the 80s, currently 84% on 15 L high flow. Objective - Vital Signs Vital signs: Vital Signs Temp 98.0 F 10/09/20 08:00 Pulse 86 10/09/20 10:30 Resp 16 10/09/20 10:30 BP 100/48 10/09/20 06:00 Pulse Ox 84 L 10/09/20 10:30 Intake & Output 10/08/20 10/09/2020 18:59 06:59 18:59 Intake Total 1751.920 798 222 Output Total 1400 1180 540 Balance 351.920 -382 -318 Weight 64.2 kg Intake: IV 900 220 40 Potassium Chloride 10 meq 600 100 In Water For Injection 1 100ml.bag @ 100 mls/hr IVPB Q1HR [facility] Rx#: [id number] Sodium Chloride 0.9% 1, 300 120 40 000 ml @ 10 mls/hr IV . Q24H [facility] Rx#:[id number] Intake, IV Titration 383.920 150 100 Amount Clevidipine Butyrate 25 186.000 50 mg In Empty Bag 1 bag @ 1 MG/HR 2 mls/hr IV .Q24H [facility] Rx#:[id number] propofoL 1,000 mg In 197.92 100 100 Empty Bag 1 bag @ Titrate IV .Q0M [facility] Rx#: [id number] Tube Feeding 438 338 52 Other 30 90 30 Output: Urine 1400 1180 540 Other: Voiding Method Indwelling Catheter Indwelling Catheter ABP, PAP, CO, CI - Last Documented Arterial Blood Pressure 157/52 - Exam GENERAL EXAM: Patient is extubated. HEENT: Normocephalic. Normal reaction of pupils, equal size, normal range of extraocular motion. No erythema or exudates in the throat. NECK: No masses, no nuchal rigidity. CHEST: No chest wall deformity. LUNGS: Diminished breath sounds HEART: S1 and S2 normal ABDOMEN: No hepatosplenomegaly, normal bowel sounds, no guarding or rigidity. SKIN: No rashes CENTRAL NERVOUS SYSTEM: As per neurology EXTREMITIES: No cyanosis, clubbing or edema. - Labs CBC & Chem 7: 10/09/20 05:00 10/09/20 05:00 Labs: Abnormal Lab Results - Last 24 Hours (Table) 10/08/20 10/09/20 10/09/20 Range/Units 11:00 05:00 05:00 RBC 3.22 L (4.30-5.90) m/uL Hgb 9.5 L (13.0-17.5) gm/dL Hct 28.8 L (39.0-53.0) % ABG pH (7.35-7.45) ABG HCO3 (21-25) mmol/L ABG Total CO2 (19-24) mmol/L ABG O2 Saturation (94-97) % Sodium 132 L (137-145) mmol/L Potassium 3.4 L (3.5-5.1) mmol/L Chloride 95 L (98-107) mmol/L BUN 47 H (9-20) mg/dL Creatinine 1.91 H (0.66-1.25) mg/dL Phosphorus 5.6 H (2.5-4.5) mg/dL Magnesium 2.5 H (1.6-2.3) mg/dL Alkaline Phosphatase 142 H (38-126) U/L Total Protein 5.6 L (6.3-8.2) g/dL Albumin 3.0 L (3.5-5.0) g/dL 10/09/20 Range/Units 05:00 RBC (4.30-5.90) m/uL Hgb (13.0-17.5) gm/dL Hct (39.0-53.0) % ABG pH 7.47 H (7.35-7.45) ABG HCO3 29 H (21-25) mmol/L ABG Total CO2 31 H (19-24) mmol/L ABG O2 Saturation 97.8 H (94-97) % Sodium (137-145) mmol/L Potassium (3.5-5.1) mmol/L Chloride (98-107) mmol/L BUN (9-20) mg/dL Creatinine (0.66-1.25) mg/dL Phosphorus (2.5-4.5) mg/dL Magnesium (1.6-2.3) mg/dL Alkaline Phosphatase (38-126) U/L Total Protein (6.3-8.2) g/dL Albumin (3.5-5.0) g/dL Microbiology - Last 24 Hours (Table) 10/05/20 22:36 Gram Stain - Final Sputum Sputum Culture - Final Assessment and Plan Plan: Assessment and plan #1 cardiac arrest with ventricular tachycardia #2 hyponatremia #3 hypokalemia #4 acute metabolic encephalopathy #5 systolic congestive heart failure acute on chronic #6 acute on chronic kidney injury #7 nonischemic cardiomyopathy Plan From cardiology's perspective, we will continue with current medications. We will continue to follow. DNP note has been reviewed, I agree with a documented findings and plan of care. Patient was seen and examined.
--- NOTE | 2020-10-09 11:59 | PN ---
PROGRESS NOTE PULMONARY/CRITICAL CARE PROGRESS NOTE: DATE OF SERVICE: 10/09/2020 Critical care time 34 minutes. This is a 70-year-old male who we saw in consultation a couple days ago. He had an out- of-hospital cardiopulmonary arrest with bystander CPR for about 10 minutes or so. He was intubated, seen by EMS. The patient has a severe cardiomyopathy with ejection fraction of 20%. The patient was on the ventilator this morning. He is on the volume assist-control mode of 20, tidal volume 450, FiO2 of 50%, PEEP of 5. Blood gases showed a pO2 of 102, pCO2 of 40 and a pH of 7.47. The patient is getting saline at KVO, was on Cleviprex at 4 mg an hour, Diprivan at 30 mcg/kg per minute and Vital high- protein at 26 which is goal. He did have a cuff leak test. We went ahead and gave him a trial of extubation. We placed him on Unasyn empirically for possible infection and Diflucan for oropharyngeal candidiasis. The patient is a FULL CODE. Post extubation, saturations are borderline. He is on high-flow O2. I did tell the nurse that we could try some AIRVO and/or and a non- rebreather mask. If and when he required re-intubation, we would try to hold off with using BiPAP. Current vital signs are reviewed, his temperature is 98, heart rate 79, respiratory rate 22, blood pressure 148/47, saturations are anywhere from 83% up to 90%. He is on high-flow cannula at 15 L/minute. Appears in absolutely no distress. No conversational dyspnea, audible wheezing or use of accessory muscles. HEENT: Examination is grossly unremarkable. Nasal cannula noted. NECK: Supple, full range of motion. No adenopathy. Neck veins are flat. CARDIOVASCULAR: Examination reveals regular rhythm and rate. Heart rate 75 beats per minute. S1, S2 normal. No murmur. LUNGS: Reveal coarse rhonchi. Breath sounds equal. Breath sounds are diminished throughout. No crackles. ABDOMEN: Soft. No bowel sounds. EXTREMITIES: Intact. No edema. He is clubbed. No cyanosis. SKIN: Without rash. NEUROLOGIC: Examination is difficult to assess. He does move all 4 extremities. Appears to be a bit more awake and alert. LABS: Reviewed. White count 8.8, hemoglobin 9.5, hematocrit 28.8, platelet count 267,000, blood gases have been noted. Sodium 132, potassium 4.1, chloride is 95, CO2 is 30, anion gap is 7. BUN and creatinine were 47 and 1.91. The rest of the labs are reviewed. Microbiology is negative. Chest .x-ray shows some consolidation possibly in the left lower lobe. CURRENT MEDICATIONS: Reviewed. The patient is currently on Tylenol, amiodarone, Unasyn, chlorhexidine, Cleviprex p.r.n., famotidine, fluconazole, subcu heparin, Apresoline p.r.n., DuoNeb, labetalol, Narcan, K-Lyte, potassium replacement, saline, and thiamine. ASSESSMENT: 1. Xpl-hy-[id number] cardiopulmonary arrest with cardiopulmonary resuscitation and eventual return of spontaneous circulation, with a down time of about 5-10 minutes. The patient was intubated by EMS at the scene. 2. Hypoxemic respiratory failure, requiring intubation and mechanical ventilation on October 05, 2020. 3. Rule out anoxic brain injury. 4. Ventricular tachycardia, currently off lidocaine and amiodarone, with a more stable rhythm. 5. Normal brain CT. 6. History of nonischemic cardiomyopathy and ejection fraction of 20%. 7. Stage 3 chronic kidney disease. 8. 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 9. History of hypertension. 10.History of essential hypertension and history of hyperlipidemia. 11.History of essential hypertension. 12.Severe metabolic alkalosis, improved. 13.History of colon cancer, status post colon resection. 14.BPH. 15.History of restless legs syndrome. PLAN: The patient will be extubated. Will trial him on some high-flow O2, AIRVO, or BiPAP before re-intubation. Additional recommendations and suggestions are forthcoming. Prognosis is guarded. Will continue to follow. N.P.O. for at least 6 hours. After 6 hours, if he is stable, we may begin with sips of water and chips of ice. Unnecessary medications will be discontinued. MMODL / IJN: [id number] /
[2020-10-09] MEDS ORDERED: Potassium Replacement Protocol 1 EACH MISC MISCELLANE PRN ×2 (12:17→17:50)
--- NOTE | 2020-10-09 12:17 | P.PN ---
Subjective Progress Note Date: 10/09/20 Patient was seen at the bedside and he was extubated today. IV sedation was stopped. Per the patient nurse that he is doing much better and the following commands. He is currently getting respiratory treatment upon seeing him. He stated that he's doing well. Objective - Vital Signs Vital signs: Vital Signs Temp 98.0 F 10/09/20 08:00 Pulse 94 10/09/20 12:08 Resp 24 10/09/20 11:30 BP 100/48 10/09/20 06:00 Pulse Ox 86 L 10/09/20 11:30 Intake & Output 10/08/20 10/09/20 10/09/20 18:59 06:59 18:59 Intake Total 1751.920 798 232 Output Total 1400 1180 1040 Balance 351.920 -382 -808 Weight 64.2 kg Intake: IV 900 220 50 Potassium Chloride 10 meq 600 100 In Water For Injection 1 100ml.bag @ 100 mls/hr IVPB Q1HR [facility] Rx#: [id number] Sodium Chloride 0.9% 1, 300 120 50 000 ml @ 10 mls/hr IV . Q24H [facility] Rx#:[id number] Intake, IV Titration 383.920 150 100 Amount Clevidipine Butyrate 25 186.000 50 mg In Empty Bag 1 bag @ 1 MG/HR 2 mls/hr IV .Q24H [facility] Rx#:[id number] propofoL 1,000 mg In 197.92 100 100 Empty Bag 1 bag @ Titrate IV .Q0M [facility] Rx#: [id number] Tube Feeding 438 338 52 Other 30 90 30 Output: Urine 1400 1180 1040 Other: Voiding Method Indwelling Catheter Indwelling Catheter ABP, PAP, CO, CI - Last Documented Arterial Blood Pressure 161/55 - Exam GENERAL: The patient is lying and not in acute distress. LUNG: He would just recently extubated. Getting respiratory treatment. No in labored breathing. NEUROLOGICAL: Higher mental function: The patient is somewhat drowsy but awake to self. He had a hard time getting his words out because of respiratory event and had a mask on. He was able to follow simple commands stretch such as showing his thumbs on both hands as well as moving his toes. No neglect. Cranial nerves: Pupils are about 3-4 mm bilaterally, round, reactive to light symmetrically. Extraocular movement is intact and no nystagmus noted. No facial weakness is noted. Motor: The strength he is able to lift all activities above gravity without any difficulty. No spontaneous movement noted. Normal tone and bulk. Sensation: Normal sensation to touch throughout. Reflexes (right/left): 2+ throughout except ankles 1+ bilaterally. Plantars are mute bilaterally. - Labs CBC & Chem 7: 10/09/20 05:00 10/09/20 05:00 Labs: Abnormal Lab Results - Last 24 Hours (Table) 10/09/20 10/09/20 10/09/20 Range/Units 05:00 05:00 05:00 RBC 3.22 L (4.30-5.90) m/uL Hgb 9.5 L (13.0-17.5) gm/dL Hct 28.8 L (39.0-53.0) % ABG pH 7.47 H (7.35-7.45) ABG HCO3 29 H (21-25) mmol/L ABG Total CO2 31 H (19-24) mmol/L ABG O2 Saturation 97.8 H (94-97) % Sodium 132 L (137-145) mmol/L Chloride 95 L (98-107) mmol/L BUN 47 H (9-20) mg/dL Creatinine 1.91 H (0.66-1.25) mg/dL Phosphorus 5.6 H (2.5-4.5) mg/dL Magnesium 2.5 H (1.6-2.3) mg/dL Alkaline Phosphatase 142 H (38-126) U/L Total Protein 5.6 L (6.3-8.2) g/dL Albumin 3.0 L (3.5-5.0) g/dL Microbiology - Last 24 Hours (Table) 10/05/20 22:36 Gram Stain - Final Sputum Sputum Culture - Final Assessment and Plan Assessment: This is a 70-year-old gentleman that presented to the emergency department on 10/05/2020 for syncopal episode. It is documented the patient the had no pulse lasting for 5-10 minutes and per the patient's girlfriend patient had questionable seizure-like activity. He has runs of Vib/Vtach overnight and today. Syncopal episode: Seemed cardiac in etiology. ?seizure-like activity. If it is a seizure possibly could be provoked because of the hyponatremia, hypokalecemia which is acute. Ecephalopathy due to patient cardiac arrest, ?seizure, electrolyte imbalance and sedation use (Propofol)--resolved Cardiac arrest with V. tach Runs of V-fib and V tach--resolved Acute hyponatremia--improving (last Na 132). Electrolyte imbalance (hyponatremia, Hypokalemia, hypocaclemia)--improving Elevated troponin Elevated liver function tests likely reactive History of nonischemic cardiomyopathy with ejection fraction of 20% Acute on chronic kidney insufficiency--improving Dyslipidemia COPD Plan: In the ED the patient was given 1 g dose of Keppra loading. EEG 10/07/20: It is abnormal routine EEG. The burst suppression seen is likely due to medication effect (IV sedation). The background slowing consistent with moderate to severe encephalopathy likely due to medication effect. There are no focal slowing, epileptiform discharges or seizure seen during the study. The excessive fast activity is likely due to medication effect. I did not start the patient on antiepileptic drugs since no epileptic discharges or seizure seen on the EEG. Because the patient's condition is improving and there is no focality or any seizure-like activity since the hospital stay we'll hold off on the EEG. The nurse was notified if the patient has any further seizure-like activity noted to notify us and we'll get a repeat EEG. Continue thiamine 100 mg daily. Ammonia level: 11 (normal). TSH: 3.2 (normal). Cardiology is on board. I will defer correcting hyponatremia and rest of electrolyte imbalance to the primary/ICU team. The plan was discussed with ICU team. Since the patient condition is improved. There is no further workup from a neurology perspective. Please reconsult if needed. Terry Rivas M.D. Neuro-hospitalist Time with Patient: Less than 30
[2020-10-09] MEDS: CLEVIDIPINE BUTYRATE 25 MG in EMPTY BAG 1 BAG IV SCH ×4 (12:22→21:14)
[2020-10-09] MEDS: POTASSIUM CHLORIDE 10 MEQ in WATER FOR INJECTION 1 100ML.BAG IVPB SCH ×6 (12:23→22:02)
--- NOTE | 2020-10-09 13:41 | P.PN ---
Subjective Progress Note Date: 10/09/20 Principal diagnosis: Cardiac arrest Patient was just extubated. He is currently doing well overall but his breathing is starting to get worse. He is taking shallow and slow breaths. He denied having any pain. He is currently unable to talk but is able to answer questions by nodding his head. Sats currently 85% on 15L high flow NC. Objective - Vital Signs Vital signs: Vital Signs Temp 98.0 F 10/09/20 08:00 Pulse 86 10/09/20 10:30 Resp 16 10/09/20 10:30 BP 100/48 10/09/20 06:00 Pulse Ox 84 L 10/09/20 10:30 Intake & Output 10/08/20 10/09/20 10/09/20 18:59 06:59 18:59 Intake Total 1751.920 798 222 Output Total 1400 1180 540 Balance 351.920 -382 -318 Weight 64.2 kg Intake: IV 900 220 40 Potassium Chloride 10 meq 600 100 In Water For Injection 1 100ml.bag @ 100 mls/hr IVPB Q1HR [facility] Rx#: [id number] Sodium Chloride 0.9% 1, 300 120 40 000 ml @ 10 mls/hr IV . Q24H [facility] Rx#:[id number] Intake, IV Titration 383.920 150 100 Amount Clevidipine Butyrate 25 186.000 50 mg In Empty Bag 1 bag @ 1 MG/HR 2 mls/hr IV .Q24H [facility] Rx#:[id number] propofoL 1,000 mg In 197.92 100 100 Empty Bag 1 bag @ Titrate IV .Q0M [facility] Rx#: [id number] Tube Feeding 438 338 52 Other 30 90 30 Output: Urine 1400 1180 540 Other: Voiding Method Indwelling Catheter Indwelling Catheter ABP, PAP, CO, CI - Last Documented Arterial Blood Pressure 157/52 - Exam General: non toxic, no distress, appears at stated age Derm: warm, dry Head: atraumatic, normocephalic, symmetric Eyes: EOMI, no lid lesions, anicteric sclera Mouth: no lip lesion, mucus membranes moist Cardiovascular: S1S2 reg, no murmur, positive posterior tibial pulse bilateral, Lungs: Coarse breath sounds bilaterally, no rhonchi, no rales , no accessory muscle use, on vent Abdominal: soft, nontender to palpation, no guarding, no appreciable organom egaly Ext: no gross muscle atrophy, no edema, no contractures Neuro: Positive cough, breathing over vent, no withdrawal to pain in all 4 extremities - Labs CBC & Chem 7: 10/09/20 05:00 10/09/20 11:45 Labs: Abnormal Lab Results - Last 24 Hours (Table) 10/08/20 10/09/20 10/09/20 Range/Units 11:00 05:00 05:00 RBC 3.22 L (4.30-5.90) m/uL Hgb 9.5 L (13.0-17.5) gm/dL Hct 28.8 L (39.0-53.0) % ABG pH (7.35-7.45) ABG HCO3 (21-25) mmol/L ABG Total CO2 (19-24) mmol/L ABG O2 Saturation (94-97) % Sodium 132 L (137-145) mmol/L Potassium 3.4 L (3.5-5.1) mmol/L Chloride 95 L (98-107) mmol/L BUN 47 H (9-20) mg/dL Creatinine 1.91 H (0.66-1.25) mg/dL Phosphorus 5.6 H (2.5-4.5) mg/dL Magnesium 2.5 H (1.6-2.3) mg/dL Alkaline Phosphatase 142 H (38-126) U/L Total Protein 5.6 L (6.3-8.2) g/dL Albumin 3.0 L (3.5-5.0) g/dL 10/09/20 Range/Units 05:00 RBC (4.30-5.90) m/uL Hgb (13.0-17.5) gm/dL Hct (39.0-53.0) % ABG pH 7.47 H (7.35-7.45) ABG HCO3 29 H (21-25) mmol/L ABG Total CO2 31 H (19-24) mmol/L ABG O2 Saturation 97.8 H (94-97) % Sodium (137-145) mmol/L Potassium (3.5-5.1) mmol/L Chloride (98-107) mmol/L BUN (9-20) mg/dL Creatinine (0.66-1.25) mg/dL Phosphorus (2.5-4.5) mg/dL Magnesium (1.6-2.3) mg/dL Alkaline Phosphatase (38-126) U/L Total Protein (6.3-8.2) g/dL Albumin (3.5-5.0) g/dL Microbiology - Last 24 Hours (Table) 10/05/20 22:36 Gram Stain - Final Sputum Sputum Culture - Final Assessment and Plan Plan: Aborted sudden cardiac with ventricular tachycardia -Cardiology recommendations -on oral amio -Attempt to correct electrolyte abnormalities Hyponatremia secondary to dehydration -improved -Nephrology recs appreciated - follow lytes Hypokalemia -Replaced -Magnesium intact Acute metabolic encephalopathy - improving - supportive care - neuro recs Seizures: -No AED recommended by neuro as MILENA alvarado. -Monitor clinically. Acute on chronic systolic congestive heart failure with ejection fraction 20-25% -Continue to hold zaroxolyn, but will give one dose of lasix today -Hold Coreg secondary to hypotension -Not on URIEL inhibitor or ARB secondary to recent acute kidney injury Acute kidney injury and chronic kidney disease IV with baseline creatinine 2.9, metabolic alkalosis -Avoid nephrotoxic agents -Cr likely at baseline now -Nephrology following DVT prophylaxis: Heparin Discussed with: Nursing Anticipated discharge: 5-[address]: SNF VS [facility] A total of 35 minutes was spent on the care of this complex patient more than 50% of the time was spent in counseling and care coordination.
[2020-10-09] MEDS ORDERED: POTASSIUM CHLORIDE 20 MEQ in WATER FOR INJECTION 1 100ML.BAG IVPB STA (21:04)
[2020-10-09 23:35] LABS: Glucose,Whole Blood 103 mg/dL (75-99)
[2020-10-10] MEDS: HEPARIN SODIUM,PORCINE 5,000 UNIT/ML 1 ML VIAL SQ SCH ×4 (00:01→23:45)
[2020-10-10] MEDS: AMPICILLIN-SULBACTAM 1.5 GM in SODIUM CHLORIDE 0.9% 50 ML IVPB SCH ×2 (00:01→08:22)
[2020-10-10] MEDS: CLEVIDIPINE BUTYRATE 25 MG in EMPTY BAG 1 BAG IV SCH ×6 (00:16→20:46)
[2020-10-10 04:39] LABS: Basophils % (A) 0 %; Eosinophils # (A) 0.1 k/uL (0-0.7); Eosinophils % (A) 1 %; HCT 32.1 % (39.0-53.0); HGB 10.4 gm/dL (13.0-17.5); Lymphocytes # (A) 0.8 k/uL (1.0-4.8); Lymphocytes % (A) 6 %; MCH 28.3 pg (25.0-35.0); MCHC 32.3 g/dL (31.0-37.0); MCV 87.8 fL (80.0-100.0); Mean Platelet Volume 6.9; Monocytes # (A) 0.5 k/uL (0-1.0); Monocytes % (A) 4 %; Neutrophils # (A) 11.2 k/uL (1.3-7.7); Neutrophils % (A) 88 %; Platelet Count 338 k/uL (150-450); RBC 3.65 m/uL (4.30-5.90); RDW 15.5 % (11.5-15.5); WBC 12.7 k/uL (3.8-10.6)
[2020-10-10 04:40] LABS: Calcium 9.3 mg/dL (8.4-10.2); Magnesium 2.3 mg/dL (1.6-2.3); Potassium 3.7 mmol/L (3.5-5.1)
[2020-10-10] MEDS ORDERED: POTASSIUM CHLORIDE ER 20 MEQ TAB.ER PO SCH (05:00)
[2020-10-10] MEDS: IPRATROPIUM-ALBUTEROL 3 ML NEB INHALATION SCH ×5 (05:40→20:47)
[2020-10-10 05:43] LABS: Glucose,Whole Blood 99 mg/dL (75-99)
[2020-10-10] MEDS: AMIODARONE 200 MG TAB PO SCH ×3 (08:22→20:57)
[2020-10-10] MEDS: FAMOTIDINE 20 MG TAB PO SCH (08:22)
[2020-10-10] MEDS: hydrALAZINE HCL 50 MG TAB PO SCH ×3 (08:22→20:57)
[2020-10-10] MEDS: LABETALOL 200 MG TAB PO SCH ×2 (08:23→20:31)
--- NOTE | 2020-10-10 09:12 | XR ---
EXAMINATION TYPE: XR chest 1V portable DATE OF EXAM: 10/10/2020 COMPARISON: Prior chest x-ray 10/09/2020 HISTORY: Extubated, abnormal chest x-ray TECHNIQUE: Single frontal view of the chest is obtained. FINDINGS: Endotracheal tube and NG tube have been removed, central venous catheter remains in place. Retrocardiac density persists. Interstitium is increased. Perihilar airspace disease has become some what more prominent. No evident pneumothorax or pleural effusion. IMPRESSION: Correlate for congestive heart failure. Possible left lower lobe atelectasis versus pneu monia. Interval extubation.
[2020-10-10] MEDS: FLUCONAZOLE IN NACL,ISO-OSM 100 MG in SALINE 1 50ML.BAG IVPB SCH (09:14)
--- NOTE | 2020-10-10 09:38 | P.PN ---
Subjective Patient is seen in follow-up for acute kidney injury and electrolyte imbalance. Potassium level 3.7 this morning and was replaced. Sodium level normal today. Renal function also stable. He was extubated October 09. Still requiring high amounts of oxygen. Somewhat confused but he is awake. He did receive a dose of IV Lasix yesterday. Nonoliguric. Vital signs are stable. General: The patient appeared well nourished and normally developed. HEENT: Normocephalic atraumatic. LUNGS: Breath sounds decreased. HEART: Regular rate and rhythm. ABDOMEN: No gross distention. EXTREMITITES: No edema. Objective - Vital Signs Vital signs: Vital Signs Temp 98.6 F 10/10/20 08:00 Pulse 85 10/10/20 09:00 Resp 24 10/10/20 09:00 BP 139/72 10/09/20 23:00 Pulse Ox 93 L 10/10/20 09:00 Intake & Output 10/09/20 10/10/20 10/10/20 18:59 06:59 18:59 Intake Total 591.067 796.667 80 Output Total 4020 1730 420 Balance -3428.933 -933.333 -340 Weight 59.3 kg Intake: IV 320 420 30 Potassium Chloride 10 meq 200 300 In Water For Injection 1 100ml.bag @ 100 mls/hr IVPB Q1HR [facility] Rx#: [id number] Sodium Chloride 0.9% 1, 120 120 30 000 ml @ 10 mls/hr IV . Q24H [facility] Rx#:[id number] Intake, IV Titration 189.067 126.667 50 Amount Clevidipine Butyrate 25 89.067 126.667 50 mg In Empty Bag 1 bag @ 1 MG/HR 2 mls/hr IV .Q24H [facility] Rx#:[id number] propofoL 1,000 mg In 100 Empty Bag 1 bag @ Titrate IV .Q0M [facility] Rx#: [id number] Oral 250 Tube Feeding 52 Other 30 Output: Urine 4020 1730 420 Other: Voiding Method Indwelling Catheter Indwelling Catheter Indwelling Catheter ABP, PAP, CO, CI - Last Documented Arterial Blood Pressure 139/52 - Labs CBC & Chem 7: 10/10/20 03:27 10/10/20 03:27 Labs: Abnormal Lab Results - Last 24 Hours (Table) 10/09/20 10/10/20 10/10/20 Range/Units 23:34 03:27 03:27 WBC 12.7 H (3.8-10.6) k/uL RBC 3.65 L (4.30-5.90) m/uL Hgb 10.4 L (13.0-17.5) gm/dL Hct 32.1 L (39.0-53.0) % Neutrophils # 11.2 H (1.3-7.7) k/uL Lymphocytes # 0.8 L (1.0-4.8) k/uL Sodium 136 L (137-145) mmol/L BUN 40 H (9-20) mg/dL Creatinine 1.85 H (0.66-1.25) mg/dL Glucose 104 H (74-99) mg/dL POC Glucose (mg/dL) 103 H (75-99) mg/dL Assessment and Plan Plan: Assessment: 1. Acute kidney injury secondary to ATN secondary to cardiopulmonary arrest. Nonoliguric. Creatinine was 3.1 on admission and is stable at 1.85 today. No hydronephrosis noted on kidney ultrasound. Left kidney not visualized. 2. Chronic kidney disease stage IV with baseline creatinine in the range of 2.3-2.5 this year. 3. Status post cardiopulmonary arrest with down time of about 5-15 minutes. 4. Severe hypokalemia secondary to poor intake and diuretics. Magnesium normal. Urine potassium 64 suggestive of renal potassium wasting however there is a component of secondary hyperaldosteronism due to volume depletion which would lead to renal potassium losses. Better post replacement. 5. Metabolic alkalosis secondary to volume contraction from diuretics. Better. 6. Hypovolemic hyponatremia. Improved.. Urine sodium 20 and urine osmolality 300. 7. Chronic systolic CHF with ejection fraction of 20-25% with mild to moderate mitral regurgitation. 8. Acute hypoxic respiratory failure. Extubated October 09. Plan: Remains off IV fluids. Continue to monitor renal function and urine output. Monitor electrolytes and replace as needed. Diet to be initiated today.
--- NOTE | 2020-10-10 09:50 | P.PN ---
Subjective Progress Note Date: 10/10/20 This is a 70-year-old gentleman with history of nonischemic cardiomyopathy, chronic congestive heart failure, renal failure, who was brought to the hospital after an episode of loss of consciousness. Patient did receive CPR according to the paramedics, he had an episode of ventricular tachycardia for which she converted spontaneously to normal sinus rhythm. His EKG on presentation here showed diffuse ST-T changes without any ST elevation. He recently underwent a cardiac catheterization and was found to have noncritical disease involving the LAD. He has chronic renal failure. And is currently intubated in the intensive care unit. He was more agitated earlier this morning, at the time of her examination he seemed to be more calm. Patient was having bouts of ventricular tachycardia and was initiated on IV amiodarone as well as slide oh. The IV amiodarone had been discontinued because of some junctional rhythm, this morning he continues to be on lidocaine. No further episodes of ventricular tachycardia noted and the patient is currently in a sinus rhythm to sinus tachycardia this morning. This documented ejection fraction in the past has been 20-25%, his chest x-ray showed some chronic infiltrate without any significant new changes. We'll discontinue the IV lidocaine today and start the patient on oral amiodarone. Patient seen and examined this morning, continues to be on Cleviprex, blood pressure 154/56, heart rate in the 70s, normal sinus rhythm. Continues to be on mechanical ventilation. Laboratory data, white blood cell count 12.9, hemoglobin 10.4, platelet count 302. Sodium 132, potassium 3.1, chloride 92, CO2 33, BUN 47, creatinine 1.9 which is an improvement from yesterday. 10/09/2020 Patient was seen and examined this morning, he was just extubated, seemed overall to be tolerating it well at the time we were examining him. Blood p ressure 156/50 heart rate in the 80s, currently 84% on 15 L high flow. 10/10/2020 Patient was seen and examined in the intensive care unit this morning. He's doing much better overall. Blood pressure 138/60, heart rate in the low 100s today. 93% oxygenation. Blood pressure at times still running in the 160 range, patient continues to be on a small dose of Cleviprex. We will add a home dose of Coreg to his medication regime today. White blood cell count 12.7, hemoglobin 10.4, platelet count 338. Sodium 136, potassium 3.7, BUN 40, creatinine 1.8. Magnesium 2.3. Objective - Vital Signs Vital signs: Vital Signs Temp 98.6 F 10/10/20 08:00 Pulse 102 H 10/10/20 08:00 Resp 15 10/10/20 08:00 BP 139/72 10/09/20 23:00 Pulse Ox 93 L 10/10/20 08:00 Intake & Output 10/09/20 10/10/20 10/10/20 18:59 06:59 18:59 Intake Total 591.067 796.667 20 Output Total 4020 1730 300 Balance -3428.933 -933.333 -280 Weight 59.3 kg Intake: IV 320 420 20 Potassium Chloride 10 meq 200 300 In Water For Injection 1 100ml.bag @ 100 mls/hr IVPB Q1HR [facility] Rx#: [id number] Sodium Chloride 0.9% 1, 120 120 20 000 ml @ 10 mls/hr IV . Q24H [facility] Rx#:[id number] Intake, IV Titration 189.067 126.667 Amount Clevidipine Butyrate 25 89.067 126.667 mg In Empty Bag 1 bag @ 1 MG/HR 2 mls/hr IV .Q24H [facility] Rx#:[id number] propofoL 1,000 mg In 100 Empty Bag 1 bag @ Titrate IV .Q0M [facility] Rx#: [id number] Oral 250 Tube Feeding 52 Other 30 Output: Urine 4020 1730 300 Other: Voiding Method Indwelling Catheter Indwelling Catheter Indwelling Catheter ABP, PAP, CO, CI - Last Documented Arterial Blood Pressure 154/59 - Exam GENERAL EXAM: Patient is extubated. HEENT: Normocephalic. Normal reaction of pupils, equal size, normal range of extraocular motion. No erythema or exudates in the throat. NECK: No masses, no nuchal rigidity. CHEST: No chest wall deformity. LUNGS: Diminished breath sounds HEART: S1 and S2 normal ABDOMEN: No hepatosplenomegaly, normal bowel sounds, no guarding or rigidity. SKIN: No rashes CENTRAL NERVOUS SYSTEM: As per neurology EXTREMITIES: No cyanosis, clubbing or edema. - Labs CBC & Chem 7: 10/10/20 03:27 10/10/20 03:27 Labs: Abnormal Lab Results - Last 24 Hours (Table) 10/09/20 10/10/20 10/10/20 Range/Units 23:34 03:27 03:27 WBC 12.7 H (3.8-10.6) k/uL RBC 3.65 L (4.30-5.90) m/uL Hgb 10.4 L (13.0-17.5) gm/dL Hct 32.1 L (39.0-53.0) % Neutrophils # 11.2 H (1.3-7.7) k/uL Lymphocytes # 0.8 L (1.0-4.8) k/uL Sodium 136 L (137-145) mmol/L BUN 40 H (9-20) mg/dL Creatinine 1.85 H (0.66-1.25) mg/dL Glucose 104 H (74-99) mg/dL POC Glucose (mg/dL) 103 H (75-99) mg/dL Assessment and Plan Plan: Assessment and plan #1 cardiac arrest with ventricular tachycardia #2 hyponatremia #3 hypokalemia #4 acute metabolic encephalopathy #5 systolic congestive heart failure acute on chronic #6 acute on chronic kidney injury #7 nonischemic cardiomyopathy Plan From cardiology's perspective, we will resume the patient's Coreg that he takes at home. Continue the rest of his medications. DNP note has been reviewed, I agree with a documented findings and plan of care. Patient was seen and examined.
--- NOTE | 2020-10-10 11:20 | PN ---
PROGRESS NOTE PULMONARY/CRITICAL CARE PROGRESS NOTE: DATE OF SERVICE: This is a 70-year-old male who was seen in consultation a couple days ago. He had out- of-hospital cardiopulmonary arrest with bystander CPR for about 10 minutes or so. He was intubated on the scene by EMS on 10/05. I am happy to report that he was successfully extubated yesterday October 09, 2020. Initially, post extubation, he had some issues with hypoxemia. He was initially on a non-rebreather. We ended up switching him to AIRVO. Currently doing much better. His AIRVO settings are 45 L/minute and 67% FiO2. He is getting KVO saline and also Cleviprex at 6 mg an hour. He is on Unasyn empirically and Diflucan for suspected oropharyngeal candidiasis. We are going to attempt to wean his Cleviprex. Cardiology did add back his blood pressure medications that he was on as an outpatient. He is awake and alert. He is in no distress. He looks quite good. Current vital signs are reviewed, temperature is 98.6, heart rate 85, respiratory rate 20, blood pressure 139/52, saturations are 93%-95%. Appears in no acute distress. HEENT: Examination is grossly unremarkable. AIRVO cannula noted. NECK: Supple, full range of motion. No adenopathy. Neck veins are flat. CARDIOVASCULAR: Examination reveals regular rhythm and rate. S1, S2 normal. No S3, S4, or murmur. Heart rate 85. LUNGS: Reveal a few scattered rhonchi. No wheezes or crackles. Breath sounds equal. ABDOMEN: Soft, bowel sounds are heard. No masses or tenderness. EXTREMITIES: Intact. No cyanosis, clubbing, or edema. SKIN: Without rash. NEUROLOGIC: Examination appears normal. LABS: Reviewed. White count 12.7, hemoglobin 10.4, hematocrit 32.1, platelet count 338,000. Sodium 136, potassium 3.7, chloride 99, CO2 is 26, anion gap is 11. BUN and creatinine were 40 and 1.85. Microbiology is negative. Chest x-ray from this morning shows some mild congestive changes. CURRENT MEDICATIONS: Reviewed. He is currently on Tylenol, amiodarone, Unasyn, Coreg, Cleviprex p.r.n., famotidine, fluconazole, Lasix, heparin, hydralazine, DuoNeb, labetalol, Narcan, potassium replacement, and thiamine. ASSESSMENT: 1. [id number] cardiopulmonary arrest with cardiopulmonary resuscitation and eventual return of spontaneous circulation, with a down time of about 5-10 minutes. The patient was intubated by EMS at the scene. 2. Hypoxemic respiratory failure requiring intubation, mechanical ventilation on October 05, 2020 and successful extubation on October 09, 2020. 3. Rule out anoxic brain injury. 4. Ventricular tachycardia, currently off lidocaine and amiodarone with a more stable rhythm. 5. Normal brain CT. 6. Nonischemic cardiomyopathy, with ejection fraction of 20%. 7. Stage 3 chronic kidney disease. 8. 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 9. Benign essential hypertension. 10.History of hyperlipidemia. 11.History of severe metabolic alkalosis, much improved. 12.History of colon cancer, status post colon resection. 13.Benign prostatic hypertrophy. 14.History of restless legs syndrome. PLAN: The patient was extubated October 09. Initially placed on a non-rebreather. He was transferred over to [facility]. He is doing well on that. He is at 45 L/minute and 67%. He is getting saline at KVO and Cleviprex at 6 mg an hour for blood pressure control. Will continue to follow him closely. Cardiology added back his antihypertensives. Will switch his Diflucan to oral and his Unasyn to Augmentin. No additional recommendations are made. Prognosis is guarded. Will continue to follow. MMODL / IJN: [id number] /
[2020-10-10] MEDS: THIAMINE 100 MG/ML 2 ML VIAL IVP SCH (11:27)
[2020-10-10] MEDS: carvediloL 12.5 MG TAB PO SCH ×2 (11:32→16:15)
--- NOTE | 2020-10-10 11:41 | P.PN ---
Subjective Progress Note Date: 10/10/20 Principal diagnosis: Cardiac arrest Doing well, his breathing is feeling better today. No chest pain. No fevers. Objective - Vital Signs Vital signs: Vital Signs Temp 98.6 F 10/10/20 08:00 Pulse 92 10/10/20 11:26 Resp 24 10/10/20 09:00 BP 139/72 10/09/20 23:00 Pulse Ox 95 10/10/20 11:12 Intake & Output 10/09/20 10/10/20 10/10/20 18:59 06:59 18:59 Intake Total 591.067 796.667 80 Output Total 4020 1730 420 Balance -3428.933 -933.333 -340 Weight 59.3 kg Intake: IV 320 420 30 Potassium Chloride 10 meq 200 300 In Water For Injection 1 100ml.bag @ 100 mls/hr IVPB Q1HR [facility] Rx#: [id number] Sodium Chloride 0.9% 1, 120 120 30 000 ml @ 10 mls/hr IV . Q24H [facility] Rx#:[id number] Intake, IV Titration 189.067 126.667 50 Amount Clevidipine Butyrate 25 89.067 126.667 50 mg In Empty Bag 1 bag @ 1 MG/HR 2 mls/hr IV .Q24H [facility] Rx#:[id number] propofoL 1,000 mg In 100 Empty Bag 1 bag @ Titrate IV .Q0M [facility] Rx#: [id number] Oral 250 Tube Feeding 52 Other 30 Output: Urine 4020 1730 420 Other: Voiding Method Indwelling Catheter Indwelling Catheter Indwelling Catheter ABP, PAP, CO, CI - Last Documented Arterial Blood Pressure 139/52 - Exam General: non toxic, no distress, appears at stated age Derm: warm, dry Head: atraumatic, normocephalic, symmetric Eyes: EOMI, no lid lesions, anicteric sclera Mouth: no lip lesion, mucus membranes moist Cardiovascular: S1S2 reg, no murmur, positive posterior tibial pulse bilateral, Lungs: Coarse breath sounds bilaterally, no rhonchi, no rales , no accessory muscle use, on vent Abdominal: soft, nontender to palpation, no guarding, no appreciable organomegaly Ext: no gross muscle atrophy, no edema, no contractures Neuro: Positive cough, breathing over vent, no withdrawal to pain in all 4 extremities - Labs CBC & Chem 7: 10/10/20 03:27 10/10/20 03:27 Labs: Abnormal Lab Results - Last 24 Hours (Table) 10/09/20 10/10/20 10/10/20 Range/Units 23:34 03:27 03:27 WBC 12.7 H (3.8-10.6) k/uL RBC 3.65 L (4.30-5.90) m/uL Hgb 10.4 L (13.0-17.5) gm/dL Hct 32.1 L (39.0-53.0) % Neutrophils # 11.2 H (1.3-7.7) k/uL Lymphocytes # 0.8 L (1.0-4.8) k/uL Sodium 136 L (137-145) mmol/L BUN 40 H (9-20) mg/dL Creatinine 1.85 H (0.66-1.25) mg/dL Glucose 104 H (74-99) mg/dL POC Glucose (mg/dL) 103 H (75-99) mg/dL Assessment and Plan Plan: Aborted sudden cardiac with ventricular tachycardia -Cardiology recommendations -on oral amio -Attempt to correct electrolyte abnormalities Hyponatremia secondary to dehydration -improved -Nephrology recs appreciated - follow lytes Hypokalemia -Replaced -Magnesium intact Acute metabolic encephalopathy - improving - supportive care - neuro recs Seizures: -No AED recommended by neuro as [place] ok. -Monitor clinically. Acute on chronic systolic congestive heart failure with ejection fraction 20-25% -Continue to hold zaroxolyn, -Was given one dose of lasix 10/09, diuresed well afterwards. -Hold Coreg secondary to hypotension -Not on URIEL inhibitor or ARB secondary to recent acute kidney injury Acute kidney injury and chronic kidney disease IV with baseline creatinine 2.9, metabolic alkalosis -Improved. Cr likely at baseline now -Avoid nephrotoxic agents -Nephrology following DVT prophylaxis: Heparin Discussed with: Nursing Anticipated discharge: 3-[address]: SNF A total of 35 minutes was spent on the care of this complex patient more than 50% of the time was spent in counseling and care coordination.
[2020-10-10] MEDS: SODIUM CHLORIDE 0.9% 1,000 ML IV SCH (13:30)
[2020-10-10] MEDS: NYSTATIN 100,000 UNIT/ML SUSP 500,000 UNIT/5 ML CUP PO SCH ×3 (13:31→20:58)
[2020-10-10 13:58] LABS: Glucose,Whole Blood 120 mg/dL (75-99)
--- NOTE | 2020-10-10 15:20 | CDI ---
Documentation Clarification Form Date: 10/10/2020 02:14:00 PM From: Makeda Rowe RN, CCDS Admit Date: 10/05/2020 08:23:00 PM Patient Name: Rey Child Visit Number: [id number] Discharge Date: ATTENTION: The Clinical Documentation Specialists (CDI) and [facility] Coding Staff appreciate your assistance in clarifying documentation. Please respond to the clarification below the line at the bottom and electronically sign. The CDI & [facility] Coding staff will review the response and follow-up if needed. Please note: Queries are made part of the Legal Health Record. If you have any questions, please contact the author of this message via ITS. Dr. Gisella Nieto The patient presented with the following: Cardiac arrest EMS estimate possibly pulseless for 5-10 minutes. Reason for the cardiac arrest has not been clearly define. Please render your opinion on the cause of cardiac arrest. History/Risk Factors: Chronic Kidney disease stage III, COPD, Hypertension, Nonischemic cardiomyopathy Clinical Indicators: 70-year-old male present to ED via EMS for unresponsive and pulseless for 5-10 minutes. CPR was performed with return to spontaneous circulation. EKG showed diffuse ST depressions. He was intubated 10/05 Lab: Sodium 121, Potassium 2.2, Chloride 63, Bicarb 37, Creatinine 3.01, BNP 12,000; blood gas: pH 7.58, pCO2 40, pO2 335, bicard 44; Lactic acid 9.1 Troponin 0.074 EKG Interpretation(ED): Ventricular rate 82 sinus rhythm with first-degree AV block. there is diffuse ST depression in lateral precordial lends, high lateral leads and inferior leads. There is cautioned no ST Elevation in V1 or V2. EKG is concerning for ischemic changes CXR: 10/05: interstitial pulmonary infiltrates which appear to be slightly improved compared to last exam 10/05 Vital signs on admission: 137/81 67 10 98.0 (mechanical vent) 10/06 Cardiology consult: Patient had episodes of V.tach for which he converted spontaneously to sinus rhythm. His EKG on admission showed diffuse ST-T changes without any ST elevation. Severe hypokalemia and hyponatremia. Patient has had a recurrence bouts of V. tach during the night. Treatment: ICU/Telemetry monitoring .9NS 1,000 fluid bolus x2 10/05, 10/06 Intubation/Mechanical ventilation (management per Pulmonary) Heparin drip Keppra 1,000 mg IVPBX1 Potassium Chloride 2o meq Q 2 HRS X3 Bags Amiodarone drip 10/05-10/06 10/06 Neurology consult: syncope episode: seemed cardiac in etiology? seizure- like activity. If it is a seizure possibly could be provoked because of the hyponatremia which is acute. Cardiac arrest with V.tach, runs of V-fib and V tach. In your professional opinion, can you please clarify cause of cardiac arrest if known? Ventricular Tachycardia Ventricular Fibrillation Severe Hyponatremia Other, Please specify Unable to Determine (Last Revision: February 2018) Ventricular Tachycardia MTDD
[2020-10-10] MEDS: AMOXIC-POT CLAV 875-125MG 1 EACH TAB PO SCH (20:31)
[2020-10-10 20:47] LABS: Glucose,Whole Blood 99 mg/dL (75-99)
[2020-10-10 23:27] LABS: Glucose,Whole Blood 101 mg/dL (75-99)
[2020-10-11] MEDS: CLEVIDIPINE BUTYRATE 25 MG in EMPTY BAG 1 BAG IV SCH ×3 (02:18→23:42)
[2020-10-11 04:46] LABS: Basophils # (A) 0.1 k/uL (0-0.2); Basophils % (A) 1 %; Eosinophils # (A) 0.2 k/uL (0-0.7); Eosinophils % (A) 2 %; HCT 30.8 % (39.0-53.0); Lymphocytes # (A) 1.2 k/uL (1.0-4.8); Lymphocytes % (A) 12 %; MCH 28.4 pg (25.0-35.0); MCHC 32.5 g/dL (31.0-37.0); MCV 87.5 fL (80.0-100.0); Mean Platelet Volume 6.9; Monocytes # (A) 0.5 k/uL (0-1.0); Monocytes % (A) 5 %; Neutrophils # (A) 8.2 k/uL (1.3-7.7); Neutrophils % (A) 79 %; Platelet Count 302 k/uL (150-450); RBC 3.52 m/uL (4.30-5.90); RDW 15.2 % (11.5-15.5); WBC 10.4 k/uL (3.8-10.6)
[2020-10-11 05:07] LABS: Albumin 3.3 g/dL (3.5-5.0); Calcium 9.2 mg/dL (8.4-10.2); Potassium 3.4 mmol/L (3.5-5.1); Total Bilirubin 0.9 mg/dL (0.2-1.3); Total Protein 6.1 g/dL (6.3-8.2)
[2020-10-11] MEDS: carvediloL 12.5 MG TAB PO SCH ×2 (06:46→15:58)
[2020-10-11] MEDS: POTASSIUM CHLORIDE 20 MEQ in WATER FOR INJECTION 1 100ML.BAG IVPB SCH ×4 (06:55→15:59)
--- NOTE | 2020-10-11 07:28 | XR ---
EXAMINATION TYPE: XR chest 1V portable DATE OF EXAM: 10/11/2020 Comparison: 10/10/2020 Clinical History: 70-year-old male Tube placement Findings: Patient is obliqued towards the right. The chin obscures the medial apices on both sides. Low lung vo lumes. Heart remains enlarged. Interstitial opacities persist but show some improvement in the upper lungs. Focal bibasilar opacities and retrocardiac density persist. Left CVC tip in the caval atrial junction region. Impression: 1. Diffuse interstitial opacities persist, possible mild interstitial pulmonary edema. Some improveme nt in aeration in the upper lungs. 2. Continued small left pleural effusion with adjacent atelectasis and or consolidation. Dense retroc ardiac atelectasis/consolidation is unchanged as well.
[2020-10-11] MEDS: HEPARIN SODIUM,PORCINE 5,000 UNIT/ML 1 ML VIAL SQ SCH ×3 (08:41→23:42)
[2020-10-11] MEDS: AMIODARONE 200 MG TAB PO SCH ×3 (08:41→21:15)
[2020-10-11] MEDS: ISOSORBIDE MONONITRATE ER 30 MG TAB.ER.24H PO SCH (08:41)
[2020-10-11] MEDS: hydrALAZINE HCL 50 MG TAB PO SCH ×3 (08:41→21:18)
[2020-10-11] MEDS: NYSTATIN 100,000 UNIT/ML SUSP 500,000 UNIT/5 ML CUP PO SCH ×4 (08:41→21:18)
[2020-10-11] MEDS: FAMOTIDINE 20 MG TAB PO SCH (08:41)
[2020-10-11] MEDS: LABETALOL 200 MG TAB PO SCH (08:41)
[2020-10-11] MEDS: AMOXIC-POT CLAV 875-125MG 1 EACH TAB PO SCH ×2 (08:42→21:15)
[2020-10-11] MEDS: THIAMINE 100 MG/ML 2 ML VIAL IVP SCH (08:42)
[2020-10-11] MEDS ORDERED: FUROSEMIDE 10 MG/ML 4 ML VIAL IV SCH (09:00)
--- NOTE | 2020-10-11 09:48 | P.PN ---
Subjective Patient is seen in follow-up for acute kidney injury and electrolyte imbalance. Renal function stable. He was extubated October 09. Received another dose of IV Lasix this morning. Nonoliguric. Awake and alert. Vital signs are stable. General: The patient appeared well nourished and normally developed. HEENT: Normocephalic atraumatic. LUNGS: Breath sounds decreased. HEART: Regular rate and rhythm. ABDOMEN: No gross distention. EXTREMITITES: No edema. Objective - Vital Signs Vital signs: Vital Signs Temp 99.1 F 10/11/20 08:00 Pulse 92 10/11/20 09:00 Resp 28 H 10/11/20 09:00 BP 160/71 10/11/20 09:00 Pulse Ox 94 L 10/11/20 09:00 Intake & Output 10/10/20 10/11/20 10/11/20 18:59 06:59 18:59 Intake Total 780 470.733 200 Output Total 1240 1275 275 Balance -460 -804.267 -75 Weight 59.3 kg 62.9 kg Intake: IV 210 290 200 Fluconazole in NaCl,Iso- 50 130 Osm 100 mg In Saline 1 50ml.bag @ 50 mls/hr IVPB DAILY [facility] Rx#:[id number] Potassium Chloride 10 meq 200 In Water For Injection 1 100ml.bag @ 100 mls/hr IVPB Q1HR [facility] Rx#: [id number] Sodium Chloride 0.9% 1, 160 160 000 ml @ 10 mls/hr IV . Q24H [facility] Rx#:[id number] Intake, IV Titration 150 180.733 Amount Clevidipine Butyrate 25 150 80.733 mg In Empty Bag 1 bag @ 1 MG/HR 2 mls/hr IV .Q24H [facility] Rx#:[id number] Potassium Chloride 20 meq 100 In Water For Injection 1 100ml.bag @ 50 mls/hr IVPB Q2H [facility] Rx#: [id number] Oral 420 Output: Urine 1240 1275 275 Other: Voiding Method Indwelling Catheter Indwelling Catheter ABP, PAP, CO, CI - Last Documented Arterial Blood Pressure 153/55 - Labs CBC & Chem 7: 10/11/20 04:42 10/11/20 04:42 Labs: Abnormal Lab Results - Last 24 Hours (Table) 10/10/20 10/10/20 10/11/20 Range/Units 13:56 23:25 04:42 RBC 3.52 L (4.30-5.90) m/uL Hgb 10.0 L (13.0-17.5) gm/dL Hct 30.8 L (39.0-53.0) % Neutrophils # 8.2 H (1.3-7.7) k/uL Sodium (137-145) mmol/L Potassium (3.5-5.1) mmol/L BUN (9-20) mg/dL Creatinine (0.66-1.25) mg/dL POC Glucose (mg/dL) 120 H 101 H (75-99) mg/dL Alkaline Phosphatase (38-126) U/L Total Protein (6.3-8.2) g/dL Albumin (3.5-5.0) g/dL 10/11/20 Range/Units 04:42 RBC (4.30-5.90) m/uL Hgb (13.0-17.5) gm/dL Hct (39.0-53.0) % Neutrophils # (1.3-7.7) k/uL Sodium 134 L (137-145) mmol/L Potassium 3.4 L (3.5-5.1) mmol/L BUN 42 H (9-20) mg/dL Creatinine 1.77 H (0.66-1.25) mg/dL POC Glucose (mg/dL) (75-99) mg/dL Alkaline Phosphatase 160 H (38-126) U/L Total Protein 6.1 L (6.3-8.2) g/dL Albumin 3.3 L (3.5-5.0) g/dL Assessment and Plan Plan: Assessment: 1. Acute kidney injury secondary to ATN secondary to cardiopulmonary arrest. Nonoliguric. Creatinine was 3.1 on admission and is stable at 1.77 today. No hydronephrosis noted on kidney ultrasound. Left kidney not visualized. 2. Chronic kidney disease stage IV with baseline creatinine in the range of 2.3-2.5 this year. 3. Status post cardiopulmonary arrest with down time of about 5-15 minutes. 4. Severe hypokalemia secondary to poor intake and diuretics. Magnesium normal. Urine potassium 64 suggestive of renal potassium wasting however there is a component of secondary hyperaldosteronism due to volume depletion which would lead to renal potassium losses. 5. Metabolic alkalosis secondary to volume contraction from diuretics. Better. 6. Hypovolemic hyponatremia. Improved.. Urine sodium 20 and urine osmolality 300. 7. Chronic systolic CHF with ejection fraction of 20-25% with mild to moderate mitral regurgitation. 8. Acute hypoxic respiratory failure. Extubated October 09. Plan: Remains off IV fluids. Status post IV Lasix this morning. Continue to monitor renal function and urine output. Monitor electrolytes and replace as needed. Encourage oral intake.
[2020-10-11] MEDS: IPRATROPIUM-ALBUTEROL 3 ML NEB INHALATION SCH ×4 (09:54→21:16)
--- NOTE | 2020-10-11 10:36 | P.PN ---
Subjective Progress Note Date: 10/11/20 Principal diagnosis: Cardiac arrest The patient is seen today 10/11/2020 in follow-up in the intensive care unit. He is status post cardiac arrest with BiPAP and bystander CPR for approximately 10 minutes. He was intubated on the scene. He has been extubated since 10/09/2020. He is awake and alert in no acute distress. He is currently maintaining O2 saturations in the 90s on the AirVo high flow oxygen device at 45 L/m and 60% FiO2. O2 saturations in the mid 90s. Chest x-ray reveals diffuse interstitial opacities persist. Mild interstitial pulmonary edema. Some imp rovement in aeration in the upper lungs. Small left pleural effusion with adjacent atelectasis. White count 10.4. Hemoglobin 10.0. Sodium 134. Potassium 3.4. Creatinine 1.77. Receiving IV diuretics, bronchodilators, antihypertensive. He remains on Celebrex at 3 mg per hour. Objective - Vital Signs Vital signs: Vital Signs Temp 99.1 F 10/11/20 08:00 Pulse 92 10/11/20 09:00 Resp 28 H 10/11/20 09:00 BP 160/71 10/11/20 09:00 Pulse Ox 94 L 10/11/20 09:00 Intake & Output 10/10/20 10/11/20 10/11/20 18:59 06:59 18:59 Intake Total 780 470.733 200 Output Total 1240 1275 275 Balance -460 -804.267 -75 Weight 59.3 kg 62.9 kg Intake: IV 210 290 200 Fluconazole in NaCl,Iso- 50 130 Osm 100 mg In Saline 1 50ml.bag @ 50 mls/hr IVPB DAILY [facility] Rx#:[id number] Potassium Chloride 10 meq 200 In Water For Injection 1 100ml.bag @ 100 mls/hr IVPB Q1HR [facility] Rx#: [id number] Sodium Chloride 0.9% 1, 160 160 000 ml @ 10 mls/hr IV . Q24H [facility] Rx#:[id number] Intake, IV Titration 150 180.733 Amount Clevidipine Butyrate 25 150 80.733 mg In Empty Bag 1 bag @ 1 MG/HR 2 mls/hr IV .Q24H [facility] Rx#:[id number] Potassium Chloride 20 meq 100 In Water For Injection 1 100ml.bag @ 50 mls/hr IVPB Q2H [facility] Rx#: [id number] Oral 420 Output: Urine 1240 1275 275 Other: Voiding Method Indwelling Catheter Indwelling Catheter Indwelling Catheter ABP, PAP, CO, CI - Last Documented Arterial Blood Pressure 153/55 - Exam GENERAL EXAM: Alert, pleasant 70-year-old gentleman, on AirVo high flow at 45 L/m 60% FiO2. Currently comfortable in no apparent distress. HEAD: Normocephalic. EYES: Normal reaction of pupils, equal size. NOSE: Clear with pink turbinates. THROAT: No erythema or exudates. NECK: No masses, no JVD. CHEST: No chest wall deformity. LUNGS: Equal air entry with crackles in the bilateral posterior bases. CVS: S1 and S2 normal with no audible murmur, regular rhythm. ABDOMEN: No hepatosplenomegaly, normal bowel sounds, no guarding or rigidity. SPINE: No scoliosis or deformity SKIN: No rashes CENTRAL NERVOUS SYSTEM: No focal deficits, tone is normal in all 4 extremities. EXTREMITIES: There is no peripheral edema. No clubbing, no cyanosis. Peripheral pulses are intact. - Labs CBC & Chem 7: 10/11/20 04:42 10/11/20 04:42 Labs: Abnormal Lab Results - Last 24 Hours (Table) 10/10/20 10/10/20 10/11/20 Range/Units 13:56 23:25 04:42 RBC 3.52 L (4.30-5.90) m/uL Hgb 10.0 L (13.0-17.5) gm/dL Hct 30.8 L (39.0-53.0) % Neutrophils # 8.2 H (1.3-7.7) k/uL Sodium (137-145) mmol/L Potassium (3.5-5.1) mmol/L BUN (9-20) mg/dL Creatinine (0.66-1.25) mg/dL POC Glucose (mg/dL) 120 H 101 H (75-99) mg/dL Alkaline Phosphatase (38-126) U/L Total Protein (6.3-8.2) g/dL Albumin (3.5-5.0) g/dL 10/11/20 Range/Units 04:42 RBC (4.30-5.90) m/uL Hgb (13.0-17.5) gm/dL Hct (39.0-53.0) % Neutrophils # (1.3-7.7) k/uL Sodium 134 L (137-145) mmol/L Potassium 3.4 L (3.5-5.1) mmol/L BUN 42 H (9-20) mg/dL Creatinine 1.77 H (0.66-1.25) mg/dL POC Glucose (mg/dL) (75-99) mg/dL Alkaline Phosphatase 160 H (38-126) U/L Total Protein 6.1 L (6.3-8.2) g/dL Albumin 3.3 L (3.5-5.0) g/dL Assessment and Plan Assessment: 1 Out of hospital cardiac arrest with CPR and eventual return of spontaneous circulation with down time 5-10 minutes. Intubated at the scene. Successfully extubated on 10/09/2020. 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 Rivas. Chest x-ray and labs reviewed We will attempt to wean off the cleviprex. Wean down the oxygen. Lasix 40 mg IVP 1 today. We will continue to follow and make further recommendations based on his clinical status Critical care time 36 minutes I, the cosigning physician, performed a history & physical examination of the patient. Lungs sounds with bilateral crackles in the posterior bases Maintaining good O2 saturations in the 90s on AirVo high flow oxygen. I discussed the assessment and plan of care with my nurse practitioner, Lilly Ball. I attest to the above note as dictated by her.
[2020-10-11] MEDS ORDERED: hydrALAZINE HCL 50 MG TAB PO STA (11:42)
[2020-10-11 12:06] LABS: Glucose,Whole Blood 88 mg/dL (75-99)
[2020-10-11] MEDS: SODIUM CHLORIDE 0.9% 1,000 ML IV SCH (12:09)
--- NOTE | 2020-10-11 12:51 | P.PN ---
Subjective Progress Note Date: 10/11/20 HISTORY OF PRESENT ILLNESS: Patient examined this morning at the bedside. Patient remains pleasantly confused. He is on 60% AIRVO. e denies chest pain or pressure. Denies shortness of breath. Patient was started on Coreg yesterday. He remains on Cleviprex. PHYSICAL EXAM: VITAL SIGNS: Reviewed. GENERAL: Well-developed in no acute distress. NECK: Supple. No JVD or thyromegaly LUNGS: Respirations even and unlabored. Lungs diminished. HEART: Regular rate and rhythm. S1 and S2 heard. EXTREMITIES: Normal range of motion. No clubbing or cyanosis. Peripheral pulses intact. No lower extremity edema ASSESSMENT: Cardiac arrest with ventricular tachycardia Acute exacerbation of chronic systolic congestive heart failure Nonischemic cardiomyopathy, EF 20-25% acute on chronic kidney injury Hyponatremia Hypokalemia Acute metabolic encephalopathy PLAN: Continue current cardiac medications Increase hydralazine to 100 mg 3 times a day Wean Cleviprex as tolerated Lasix IV x 1 dose ordered per pulmonary Further recommendations pending patient course Nurse practitioner note has been reviewed by physician. Signing provider agrees with the documented findings, assessment, and plan of care. Objective - Vital Signs Vital signs: Vital Signs Temp 99.1 F 10/11/20 12:00 Pulse 85 10/11/20 12:00 Resp 22 10/11/20 12:00 BP 159/75 10/11/20 11:00 Pulse Ox 95 10/11/20 12:00 Intake & Output 10/10/20 10/11/20 10/11/20 18:59 06:59 18:59 Intake Total 780 470.733 310 Output Total 1240 1275 750 Balance -460 -804.267 -440 Weight 59.3 kg 62.9 kg Intake: IV 210 290 260 Fluconazole in NaCl,Iso- 50 130 Osm 100 mg In Saline 1 50ml.bag @ 50 mls/hr IVPB DAILY [facility] Rx#:[id number] Potassium Chloride 10 meq 200 In Water For Injection 1 100ml.bag @ 100 mls/hr IVPB Q1HR [facility] Rx#: [id number] Sodium Chloride 0.9% 1, 160 160 60 000 ml @ 10 mls/hr IV . Q24H [facility] Rx#:[id number] Intake, IV Titration 150 180.733 50 Amount Clevidipine Butyrate 25 150 80.733 50 mg In Empty Bag 1 bag @ 1 MG/HR 2 mls/hr IV .Q24H [facility] Rx#:[id number] Potassium Chloride 20 meq 100 In Water For Injection 1 100ml.bag @ 50 mls/hr IVPB Q2H [facility] Rx#: [id number] Oral 420 Output: Urine 1240 1275 750 Other: Voiding Method Indwelling Catheter Indwelling Catheter Indwelling Catheter ABP, PAP, CO, CI - Last Documented Arterial Blood Pressure 157/53 - Labs CBC & Chem 7: 10/11/20 04:42 10/11/20 12:05 Labs: Abnormal Lab Results - Last 24 Hours (Table) 10/10/20 10/10/20 10/11/20 Range/Units 13:56 23:25 04:42 RBC 3.52 L (4.30-5.90) m/uL Hgb 10.0 L (13.0-17.5) gm/dL Hct 30.8 L (39.0-53.0) % Neutrophils # 8.2 H (1.3-7.7) k/uL Sodium (137-145) mmol/L Potassium (3.5-5.1) mmol/L BUN (9-20) mg/dL Creatinine (0.66-1.25) mg/dL POC Glucose (mg/dL) 120 H 101 H (75-99) mg/dL Alkaline Phosphatase (38-126) U/L Total Protein (6.3-8.2) g/dL Albumin (3.5-5.0) g/dL 10/11/20 Range/Units 04:42 RBC (4.30-5.90) m/uL Hgb (13.0-17.5) gm/dL Hct (39.0-53.0) % Neutrophils # (1.3-7.7) k/uL Sodium 134 L (137-145) mmol/L Potassium 3.4 L (3.5-5.1) mmol/L BUN 42 H (9-20) mg/dL Creatinine 1.77 H (0.66-1.25) mg/dL POC Glucose (mg/dL) (75-99) mg/dL Alkaline Phosphatase 160 H (38-126) U/L Total Protein 6.1 L (6.3-8.2) g/dL Albumin 3.3 L (3.5-5.0) g/dL
--- NOTE | 2020-10-11 16:48 | P.PN ---
Subjective Progress Note Date: 10/11/20 Principal diagnosis: Cardiac arrest Patient has been doing well. He is still confined in his bed. Still having shortness of breath. No significant pain. No fevers. Nurse reported that blood pressure shoots up once she tries to wean off clevidipine gtt. Objective - Vital Signs Vital signs: Vital Signs Temp 99.1 F 10/11/20 12:00 Pulse 91 10/11/20 16:05 Resp 20 10/11/20 14:00 BP 169/83 10/11/20 14:00 Pulse Ox 94 L 10/11/20 15:57 Intake & Output 10/10/20 10/11/20 10/11/20 18:59 06:59 18:59 Intake Total 780 470.733 350 Output Total 1240 1275 1150 Balance -460 -804.267 -800 Weight 59.3 kg 62.9 kg Intake: IV 210 290 300 Fluconazole in NaCl,Iso- 50 130 Osm 100 mg In Saline 1 50ml.bag @ 50 mls/hr IVPB DAILY [facility] Rx#:[id number] Potassium Chloride 10 meq 200 In Water For Injection 1 100ml.bag @ 100 mls/hr IVPB Q1HR [facility] Rx#: [id number] Sodium Chloride 0.9% 1, 160 160 100 000 ml @ 10 mls/hr IV . Q24H [facility] Rx#:[id number] Intake, IV Titration 150 180.733 50 Amount Clevidipine Butyrate 25 150 80.733 50 mg In Empty Bag 1 bag @ 1 MG/HR 2 mls/hr IV .Q24H [facility] Rx#:[id number] Potassium Chloride 20 meq 100 In Water For Injection 1 100ml.bag @ 50 mls/hr IVPB Q2H [facility] Rx#: [id number] Oral 420 Output: Urine 1240 1275 1150 Other: Voiding Method Indwelling Catheter Indwelling Catheter Indwelling Catheter ABP, PAP, CO, CI - Last Documented Arterial Blood Pressure 161/53 - Exam General: non toxic, no distress, appears at stated age Derm: warm, dry Head: atraumatic, normocephalic, symmetric Eyes: EOMI, no lid lesions, anicteric sclera Mouth: no lip lesion, mucus membranes moist Cardiovascular: S1S2 reg, no murmur, positive posterior tibial pulse bilateral, Lungs: Coarse breath sounds bilaterally, no rhonchi, no rales , no accessory muscle use, on vent Abdominal: soft, nontender to palpation, no guarding, no appreciable organomegaly Ext: no gross muscle atrophy, no edema, no contractures Neuro: general weakness - Labs CBC & Chem 7: 10/11/20 04:42 10/11/20 12:05 Labs: Abnormal Lab Results - Last 24 Hours (Table) 10/10/20 10/11/20 10/11/20 Range/Units 23:25 04:42 04:42 RBC 3.52 L (4.30-5.90) m/uL Hgb 10.0 L (13.0-17.5) gm/dL Hct 30.8 L (39.0-53.0) % Neutrophils # 8.2 H (1.3-7.7) k/uL Sodium 134 L (137-145) mmol/L Potassium 3.4 L (3.5-5.1) mmol/L BUN 42 H (9-20) mg/dL Creatinine 1.77 H (0.66-1.25) mg/dL POC Glucose (mg/dL) 101 H (75-99) mg/dL Alkaline Phosphatase 160 H (38-126) U/L Total Protein 6.1 L (6.3-8.2) g/dL Albumin 3.3 L (3.5-5.0) g/dL Assessment and Plan Plan: Aborted sudden cardiac with ventricular tachycardia -Cardiology recommendations -on oral amio -Attempt to correct electrolyte abnormalities Hyponatremia secondary to dehydration -improved -Nephrology recs appreciated - follow lytes Hypertensive emergency On clevidipine gtt, start norvasc and try to wean off gtt Hydralazine increased to 100mg tid D/c labetalol, he is already on coreg Continue imdur Hypokalemia -Replaced -Magnesium intact Acute metabolic encephalopathy - improving - supportive care - neuro recs Seizures: -No AED recommended by neuro as MILENA ok. -Monitor clinically. Acute on chronic systolic congestive heart failure with ejection fraction 20-25% -Continue to hold zaroxolyn, -Start lasix 40mg IV daily -Resume home coreg -Not on URIEL inhibitor or ARB secondary to recent acute kidney injury Acute kidney injury and chronic kidney disease IV with baseline creatinine 2.9, metabolic alkalosis -Improved. Cr likely at baseline now -Avoid nephrotoxic agents -Nephrology following General weakness PT and OT DVT prophylaxis: Heparin Discussed with: Nursing, I asked RN today to try to sit patient in a recliner. Anticipated discharge: 3-[address]: SNF A total of 35 minutes was spent on the care of this complex patient more than 50% of the time was spent in counseling and care coordination.
[2020-10-11] MEDS ORDERED: amLODIPine 5 MG TAB PO SCH (17:00)
[2020-10-12] MEDS: CLEVIDIPINE BUTYRATE 25 MG in EMPTY BAG 1 BAG IV SCH ×5 (04:24→21:20)
[2020-10-12 04:44] LABS: Basophils # (A) 0.1 k/uL (0-0.2); Basophils % (A) 1 %; Eosinophils # (A) 0.2 k/uL (0-0.7); Eosinophils % (A) 2 %; HCT 37.1 % (39.0-53.0); HGB 12.1 gm/dL (13.0-17.5); Lymphocytes # (A) 1.2 k/uL (1.0-4.8); Lymphocytes % (A) 11 %; MCH 28.5 pg (25.0-35.0); MCHC 32.5 g/dL (31.0-37.0); MCV 87.9 fL (80.0-100.0); Mean Platelet Volume 6.6; Monocytes # (A) 0.7 k/uL (0-1.0); Monocytes % (A) 6 %; Neutrophils # (A) 8.9 k/uL (1.3-7.7); Neutrophils % (A) 80 %; Platelet Count 411 k/uL (150-450); RBC 4.23 m/uL (4.30-5.90); RDW 15.3 % (11.5-15.5); WBC 11.2 k/uL (3.8-10.6)
[2020-10-12 04:53] LABS: Potassium 4.1 mmol/L (3.5-5.1)
[2020-10-12] MEDS: carvediloL 12.5 MG TAB PO SCH ×2 (07:20→16:53)
--- NOTE | 2020-10-12 07:48 | XR ---
EXAMINATION TYPE: XR chest 1V portable DATE OF EXAM: 10/12/2020 Comparison: 10/11/2020 Clinical History: 70-year-old male Effusions Findings: Left-sided CVC tip at the cavoatrial junction. Heart remains borderline enlarged. Interstitial opacit ies persist with slight improvement on the left. Retrocardiac opacity is also improving. Impression: Interstitial infiltrates slightly improving particularly on the left. Retrocardiac opacity also impro ving.
[2020-10-12] MEDS: IPRATROPIUM-ALBUTEROL 3 ML NEB INHALATION SCH ×4 (07:51→19:40)
[2020-10-12] MEDS ORDERED: carvediloL 12.5 MG TAB PO STA (08:18)
[2020-10-12] MEDS ORDERED: carvediloL 12.5 MG TAB PO SCH (08:30)
[2020-10-12] MEDS: hydrALAZINE HCL 50 MG TAB PO SCH ×3 (08:40→21:22)
[2020-10-12] MEDS: AMOXIC-POT CLAV 875-125MG 1 EACH TAB PO SCH ×2 (08:40→21:22)
[2020-10-12] MEDS: ISOSORBIDE MONONITRATE ER 30 MG TAB.ER.24H PO SCH (08:40)
[2020-10-12] MEDS: HEPARIN SODIUM,PORCINE 5,000 UNIT/ML 1 ML VIAL SQ SCH ×3 (08:40→23:26)
[2020-10-12] MEDS: amLODIPine 10 MG TAB PO SCH (08:40)
[2020-10-12] MEDS: AMIODARONE 200 MG TAB PO SCH ×3 (08:40→21:22)
[2020-10-12] MEDS: THIAMINE 100 MG/ML 2 ML VIAL IVP SCH (08:40)
[2020-10-12] MEDS: FAMOTIDINE 20 MG TAB PO SCH (08:40)
[2020-10-12] MEDS: NYSTATIN 100,000 UNIT/ML SUSP 500,000 UNIT/5 ML CUP PO SCH ×4 (08:41→21:22)
--- NOTE | 2020-10-12 08:58 | P.PN ---
Subjective Patient is seen in follow-up for acute kidney injury and electrolyte imbalance. Renal function stable. He was extubated October 09. Nonoliguric. Per nurse, intermittently confused. No chest pain. Now on 10 L high flow nasal cannula. Vital signs are stable. General: The patient appeared well nourished and normally developed. HEENT: Normocephalic atraumatic. LUNGS: Breath sounds decreased. HEART: Regular rate and rhythm. ABDOMEN: No gross distention. EXTREMITITES: No edema. Objective - Vital Signs Vital signs: Vital Signs Temp 98.2 F 10/11/20 21:00 Pulse 96 10/12/20 07:52 Resp 14 10/12/20 07:00 BP 156/76 10/12/20 07:00 Pulse Ox 96 10/12/20 07:52 Intake & Output 10/11/20 10/12/20 10/12/20 18:59 06:59 18:59 Intake Total 447.000 358.000 86.667 Output Total 1875 1526 285 Balance -1428.000 -1168.000 -198.333 Weight 58.6 kg Intake: IV 380 240 40 Potassium Chloride 10 meq 200 In Water For Injection 1 100ml.bag @ 100 mls/hr IVPB Q1HR [facility] Rx#: [id number] Sodium Chloride 0.9% 1, 180 240 40 000 ml @ 10 mls/hr IV . Q24H [facility] Rx#:[id number] Intake, IV Titration 67.000 118.000 46.667 Amount Clevidipine Butyrate 25 67.000 118.000 46.667 mg In Empty Bag 1 bag @ 1 MG/HR 2 mls/hr IV .Q24H [facility] Rx#:[id number] Output: Urine 1875 1525 285 Stool 1 Other: Voiding Method Indwelling Catheter Indwelling Catheter ABP, PAP, CO, CI - Last Documented Arterial Blood Pressure 160/54 - Labs CBC & Chem 7: 10/12/20 04:30 10/12/20 04:30 Labs: Abnormal Lab Results - Last 24 Hours (Table) 10/12/20 10/12/20 Range/Units 04:30 04:30 WBC 11.2 H (3.8-10.6) k/uL RBC 4.23 L (4.30-5.90) m/uL Hgb 12.1 L (13.0-17.5) gm/dL Hct 37.1 L (39.0-53.0) % Neutrophils # 8.9 H (1.3-7.7) k/uL BUN 53 H (9-20) mg/dL Creatinine 1.78 H (0.66-1.25) mg/dL Glucose 114 H (74-99) mg/dL Assessment and Plan Plan: Assessment: 1. Acute kidney injury secondary to ATN secondary to cardiopulmonary arrest. Nonoliguric. Creatinine was 3.1 on admission and is stable at 1.78 today. No hydronephrosis noted on kidney ultrasound. Left kidney not visualized. 2. Chronic kidney disease stage IV with baseline creatinine in the range of 2.3-2.5 this year. 3. Status post cardiopulmonary arrest with down time of about 5-15 minutes. 4. Severe hypokalemia secondary to poor intake and diuretics. Status post replacement. Magnesium normal. Urine potassium 64 suggestive of renal potassium wasting however there is a component of secondary hyperaldosteronism due to volume depletion which would lead to renal potassium losses. 5. Metabolic alkalosis secondary to volume contraction from diuretics. Resolved. 6. Hypovolemic hyponatremia, initially hypovolemic. Improved. Urine sodium 20 and urine osmolality 300. 7. Chronic systolic CHF with ejection fraction of 20-25% with mild to moderate mitral regurgitation. 8. Acute hypoxic respiratory failure. Extubated October 09. Plan: Remains off IV fluids. Status post IV Lasix yesterday. Continue to monitor renal function and urine output. Monitor electrolytes and replace as needed. Encouraged oral intake.
--- NOTE | 2020-10-12 09:18 | P.PN ---
Subjective Progress Note Date: 10/12/20 HISTORY OF PRESENT ILLNESS: Patient examined this morning at the bedside. Patient remains pleasantly confused. He is on 10L NC. Oxygen saturations greater than 92%. He denies chest pain or pressure. Denies shortness of breath. He remains on Cleviprex at an increased dose this morning. His hydralazine was increased yesterday. PHYSICAL EXAM: VITAL SIGNS: Reviewed. GENERAL: Well-developed in no acute distress. NECK: Supple. No JVD or thyromegaly LUNGS: Respirations even and unlabored. Lungs diminished. HEART: Regular rate and rhythm. S1 and S2 heard. EXTREMITIES: Normal range of motion. No clubbing or cyanosis. Peripheral pulses intact. No lower extremity edema ASSESSMENT: Cardiac arrest with ventricular tachycardia Acute exacerbation of chronic systolic congestive heart failure Nonischemic cardiomyopathy, EF 20-25% Hypertension Acute on chronic kidney injury Hyponatremia Hypokalemia Acute metabolic encephalopathy PLAN: Continue current cardiac medications Increase Norvasc to 10 mg daily Increase Coreg to 25 mg BID Add Catapres 0.1 mg 3 times a day Wean Cleviprex as tolerated Further recommendations pending patient course Nurse practitioner note has been reviewed by physician. Signing provider agrees with the documented findings, assessment, and plan of care. Objective - Vital Signs Vital signs: Vital Signs Temp 98.2 F 10/11/20 21:00 Pulse 96 10/12/20 07:52 Resp 14 10/12/20 07:00 BP 156/76 10/12/20 07:00 Pulse Ox 96 10/12/20 07:52 Intake & Output 10/11/20 10/12/20 10/12/20 18:59 06:59 18:59 Intake Total 447.000 358.000 134.167 Output Total 1875 1526 285 Balance -1428.000 -1168.000 -150.833 Weight 58.6 kg Intake: IV 380 240 40 Potassium Chloride 10 meq 200 In Water For Injection 1 100ml.bag @ 100 mls/hr IVPB Q1HR [facility] Rx#: [id number] Sodium Chloride 0.9% 1, 180 240 40 000 ml @ 10 mls/hr IV . Q24H [facility] Rx#:[id number] Intake, IV Titration 67.000 118.000 94.167 Amount Clevidipine Butyrate 25 67.000 118.000 94.167 mg In Empty Bag 1 bag @ 1 MG/HR 2 mls/hr IV .Q24H [facility] Rx#:[id number] Output: Urine 1875 1525 285 Stool 1 Other: Voiding Method Indwelling Catheter Indwelling Catheter ABP, PAP, CO, CI - Last Documented Arterial Blood Pressure 160/54 - Labs CBC & Chem 7: 10/12/20 04:30 10/12/20 04:30 Labs: Abnormal Lab Results - Last 24 Hours (Table) 10/12/20 10/12/20 Range/Units 04:30 04:30 WBC 11.2 H (3.8-10.6) k/uL RBC 4.23 L (4.30-5.90) m/uL Hgb 12.1 L (13.0-17.5) gm/dL Hct 37.1 L (39.0-53.0) % Neutrophils # 8.9 H (1.3-7.7) k/uL BUN 53 H (9-20) mg/dL Creatinine 1.78 H (0.66-1.25) mg/dL Glucose 114 H (74-99) mg/dL
[2020-10-12] MEDS: cloNIDine HCL 0.1 MG TAB PO SCH ×3 (12:40→21:26)
[2020-10-12] MEDS: SODIUM CHLORIDE 0.9% 1,000 ML IV SCH (12:43)
--- NOTE | 2020-10-12 13:21 | P.PN ---
Subjective Progress Note Date: 10/12/20 Principal diagnosis: Cardiac arrest The patient is seen today 10/11/2020 in follow-up in the intensive care unit. He is status post cardiac arrest with BiPAP and bystander CPR for approximately 10 minutes. He was intubated on the scene. He has been extubated since 10/09/2020. He is awake and alert in no acute distress. He is currently maintaining O2 saturations in the 90s on the AirVo high flow oxygen device at 45 L/m and 60% FiO2. O2 saturations in the mid 90s. Chest x-ray reveals diffuse interstitial opacities persist. Mild interstitial pulmonary edema. Some imp rovement in aeration in the upper lungs. Small left pleural effusion with adjacent atelectasis. White count 10.4. Hemoglobin 10.0. Sodium 134. Potassium 3.4. Creatinine 1.77. Receiving IV diuretics, bronchodilators, antihypertensive. He remains on clevidipine at 3 mg per hour. The patient is seen today 10/12/2020 in follow-up in the intensive care unit. He is sitting up in bed. Awake and alert in no acute distress. He's been converted from the AirVo high flow oxygen device to 10 L high flow oxygen. Chest x-ray is fairly similar with possible right lower lobe atelectasis/infiltrate. He has 0.9 normal saline at 20 ML's per hour. His clevidipine was increased to 15 mg per hour overnight as his antihypertensive medications had been adjusted. He remains on DuoNeb inhalations, Augmentin, heparin for DVT prophylaxis. Objective - Vital Signs Vital signs: Vital Signs Temp 97.7 F 10/12/20 12:00 Pulse 93 10/12/20 13:17 Resp 13 10/12/20 13:00 BP 152/83 10/12/20 13:00 Pulse Ox 96 10/12/20 13:00 Intake & Output 10/11/20 10/12/20 10/12/20 18:59 06:59 18:59 Intake Total 447.000 358.000 236.667 Output Total 1875 1526 545 Balance -1428.000 -1168.000 -308.333 Weight 58.6 kg 58.6 kg Intake: IV 380 240 140 Potassium Chloride 10 meq 200 In Water For Injection 1 100ml.bag @ 100 mls/hr IVPB Q1HR [facility] Rx#: [id number] Sodium Chloride 0.9% 1, 180 240 140 000 ml @ 10 mls/hr IV . Q24H [facility] Rx#:[id number] Intake, IV Titration 67.000 118.000 96.667 Amount Clevidipine Butyrate 25 67.000 118.000 96.667 mg In Empty Bag 1 bag @ 1 MG/HR 2 mls/hr IV .Q24H [facility] Rx#:[id number] Output: Urine 1875 1525 545 Stool 1 Other: Voiding Method Indwelling Catheter Indwelling Catheter Indwelling Catheter ABP, PAP, CO, CI - Last Documented Arterial Blood Pressure 150/59 - Exam GENERAL EXAM: Alert, pleasant 70-year-old gentleman, on 10 L high flow nasal cannula with O2 saturations in the 90s. Currently comfortable in no apparent distress. HEAD: Normocephalic. EYES: Normal reaction of pupils, equal size. NOSE: Clear with pink turbinates. THROAT: No erythema or exudates. NECK: No masses, no JVD. CHEST: No chest wall deformity. LUNGS: Equal air entry with crackles in the bilateral posterior bases. CVS: S1 and S2 normal with no audible murmur, regular rhythm. ABDOMEN: No hepatosplenomegaly, normal bowel sounds, no guarding or rigidity. SPINE: No scoliosis or deformity SKIN: No rashes CENTRAL NERVOUS SYSTEM: No focal deficits, tone is normal in all 4 extremities. EXTREMITIES: There is no peripheral edema. No clubbing, no cyanosis. Periphe ral pulses are intact. - Labs CBC & Chem 7: 10/12/20 04:30 10/12/20 04:30 Labs: Abnormal Lab Results - Last 24 Hours (Table) 10/12/20 10/12/20 Range/Units 04:30 04:30 WBC 11.2 H (3.8-10.6) k/uL RBC 4.23 L (4.30-5.90) m/uL Hgb 12.1 L (13.0-17.5) gm/dL Hct 37.1 L (39.0-53.0) % Neutrophils # 8.9 H (1.3-7.7) k/uL BUN 53 H (9-20) mg/dL Creatinine 1.78 H (0.66-1.25) mg/dL Glucose 114 H (74-99) mg/dL Assessment and Plan Assessment: 1 Out of hospital cardiac arrest with CPR and eventual return of spontaneous circulation with down time 5-10 minutes. Intubated at the scene. Successfully extubated on 10/09/2020. 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 Rivas. Chest x-ray and labs reviewed We will attempt again to wean off the cleviprex. Wean down the oxygen. Could transferred to [facility] with telemetry once off Cleviprex We will continue to follow and make further recommendations based on his clinical status Critical care time 35 minutes I, the cosigning physician, performed a history & physical examination of the patient. Lungs sounds with bilateral crackles in the posterior bases Maintaining good O2 saturations in the 90s on 10 L high flow nasal cannula. I discussed the assessment and plan of care with my nurse practitioner, Lilly Ball. I attest to the above note as dictated by her.
--- NOTE | 2020-10-12 15:22 | P.PN ---
Subjective Progress Note Date: 10/12/20 Principal diagnosis: Cardiac arrest Patient has been more delirious today, he is not answering questions like he used to. He seems to be only whispering. He's been converted from the AirVo high flow oxygen device to 10 L high flow oxygen. His clevidipine was increased to 15 mg per hour overnight as his antihypertensive medications had been adjusted. According to nursing staff patient has not slept for the past 3 days. No fevers or chills. No pain. Objective - Vital Signs Vital signs: Vital Signs Temp 97.7 F 10/12/20 12:00 Pulse 93 10/12/20 13:17 Resp 13 10/12/20 13:00 BP 152/83 10/12/20 13:00 Pulse Ox 96 10/12/20 13:00 Intake & Output 10/11/20 10/12/20 10/12/20 18:59 06:59 18:59 Intake Total 447.000 358.000 256.667 Output Total 1875 1526 605 Balance -1428.000 -1168.000 -348.333 Weight 58.6 kg 58.6 kg Intake: IV 380 240 160 Potassium Chloride 10 meq 200 In Water For Injection 1 100ml.bag @ 100 mls/hr IVPB Q1HR [facility] Rx#: [id number] Sodium Chloride 0.9% 1, 180 240 160 000 ml @ 10 mls/hr IV . Q24H [facility] Rx#:[id number] Intake, IV Titration 67.000 118.000 96.667 Amount Clevidipine Butyrate 25 67.000 118.000 96.667 mg In Empty Bag 1 bag @ 1 MG/HR 2 mls/hr IV .Q24H [facility] Rx#:[id number] Output: Urine 1875 1525 605 Stool 1 Other: Voiding Method Indwelling Catheter Indwelling Catheter Indwelling Catheter ABP, PAP, CO, CI - Last Documented Arterial Blood Pressure 150/59 - Exam General: non toxic, no distress, appears at stated age Derm: warm, dry Head: atraumatic, normocephalic, symmetric Eyes: EOMI, no lid lesions, anicteric sclera Mouth: no lip lesion, mucus membranes moist Cardiovascular: S1S2 reg, no murmur, positive posterior tibial pulse bilateral, Lungs: Scattered rhonchi, no rales , no accessory muscle use, on vent Abdominal: soft, nontender to palpation, no guarding, no appreciable organomegaly Ext: no gross muscle atrophy, no edema, no contractures Neuro: general weakness - Labs CBC & Chem 7: 10/12/20 04:30 10/12/20 04:30 Labs: Abnormal Lab Results - Last 24 Hours (Table) 10/12/20 10/12/20 Range/Units 04:30 04:30 WBC 11.2 H (3.8-10.6) k/uL RBC 4.23 L (4.30-5.90) m/uL Hgb 12.1 L (13.0-17.5) gm/dL Hct 37.1 L (39.0-53.0) % Neutrophils # 8.9 H (1.3-7.7) k/uL BUN 53 H (9-20) mg/dL Creatinine 1.78 H (0.66-1.25) mg/dL Glucose 114 H (74-99) mg/dL Assessment and Plan Plan: Aborted sudden cardiac with ventricular tachycardia -Cardiology recommendations -on oral amio -Attempt to correct electrolyte abnormalities Hyponatremia secondary to dehydration -improved -Nephrology recs appreciated - follow lytes Hypertensive emergency On clevidipine gtt, try to wean off Norvasc increased to 10 mg, clonidine added 10/12 Hydralazine increased to 100mg tid 10/11 Continue Coreg Continue imdur Hypokalemia -Replaced -Magnesium intact Acute metabolic encephalopathy - According to nursing staff patient has not slept for the past 3 days, order melatonin and reorient frequently - supportive care - neuro recs Seizures: -No AED recommended by neuro as [place] ok. -Monitor clinically. Acute on chronic systolic congestive heart failure with ejection fraction 20-25% -Continue to hold zaroxolyn, -Patient was given multiple IV pushes of lasix, last on 10/11 -Resume home coreg -Not on URIEL inhibitor or ARB secondary to recent acute kidney injury Acute kidney injury and chronic kidney disease IV with baseline creatinine 2.9, metabolic alkalosis -Improved. Cr likely at baseline now -Avoid nephrotoxic agents -Nephrology following General weakness PT and OT DVT prophylaxis: Heparin Discussed with: Nursing, Anticipated discharge: 3-[address]: SNF A total of 35 minutes was spent on the care of this complex patient more than 50% of the time was spent in counseling and care coordination.
[2020-10-12] MEDS: MELATONIN 3 MG TABLET PO SCH (21:21)
[2020-10-13] MEDS: CLEVIDIPINE BUTYRATE 25 MG in EMPTY BAG 1 BAG IV SCH ×4 (00:32→06:11)
[2020-10-13 04:21] LABS: Basophils # (A) 0.1 k/uL (0-0.2); Basophils % (A) 1 %; Eosinophils # (A) 0.1 k/uL (0-0.7); Eosinophils % (A) 1 %; HCT 38.6 % (39.0-53.0); HGB 12.7 gm/dL (13.0-17.5); Hypochromasia Slight; Lymphocytes # (A) 1.2 k/uL (1.0-4.8); Lymphocytes % (A) 9 %; MCH 29.6 pg (25.0-35.0); MCV 89.5 fL (80.0-100.0); Mean Platelet Volume 6.9; Monocytes # (A) 0.6 k/uL (0-1.0); Monocytes % (A) 5 %; Neutrophils # (A) 10.8 k/uL (1.3-7.7); Neutrophils % (A) 84 %; Platelet Count 417 k/uL (150-450); RBC 4.31 m/uL (4.30-5.90); RDW 15.2 % (11.5-15.5); WBC 12.9 k/uL (3.8-10.6)
[2020-10-13 04:34] LABS: Calcium 10.2 mg/dL (8.4-10.2); Potassium 3.7 mmol/L (3.5-5.1)
--- NOTE | 2020-10-13 06:32 | P.PN ---
Subjective Progress Note Date: 10/13/20 70-year-old male patient being seen in follow-up in the intensive care unit. The patient is post cardiac arrest. The patient has history of nonischemic cardiomyopathy with impaired ejection fraction of 20-25%. The patient had episodes of V. tach and converted to sinus rhythm. He received CPR and he did not have a pulse for a total of 5-10 minutes. He had a previous cardiac catheterization that showed noncritical disease involving the LAD. He does have chronic kidney disease. During the course of his ICU stay, the patient was treated with a combination of lidocaine and amiodarone. The patient had a bystander that applied CPR and the patient for a total of 10 minutes. The patient was intubated on the scene. The patient was extubated on 10/09/2020. Currently the patient remains on high flow oxygen 6 L per minute nasal cannula. Chest x-ray showed some interstitial pulmonary infiltrates bilateral/interstitial pulmonary edema. Echocardiogram showed an ejection fraction of 20-25% with moderate degree of mitral regurgitation. The patient had a is post cardiac arrest and ventricular tachycardia. He does have a nonischemic cardiomyopathy with an ejection fraction of 20-25%. Other c omorbidities include hypertension and an acute on top of chronic kidney disease. Currently completing course of Augmentin given to her current aspiration pneumonia. The patient on oral amiodarone 200 mg by mouth 3 times a day. The patient is also on Coreg 25 mg by mouth twice a day, clonidine 0.1 mg by mouth 3 times a day in addition to hydralazine 100 mg by mouth 3 times a day for blood pressure control. IV fluids at KVO at 10 mL an hour. Currently on 8 L of oxygen by nasal cannula with a saturation of 94%. He is afebrile. Cleviprex drip is also being utilized for blood pressure control..currently running at 15 mg an hour. The patient is morning is a bit confused. He is altered. His neurologic exam is nonfocal. Is following simple commands. However is not consistent in his response. No neck stiffness. No focal neurological deficit. No seizure activity. His post cardiac arrest. Objective - Vital Signs Vital signs: Vital Signs Temp 98.2 F 10/13/20 04:00 Pulse 99 10/13/20 06:00 Resp 14 10/13/20 06:00 BP 155/72 10/13/20 06:00 Pulse Ox 96 10/13/20 06:00 Intake & Output 10/12/20 10/12/20 10/13/20 06:59 18:59 06:59 Intake Total 358.000 356.667 451.667 Output Total 1526 995 945 Balance -1168.000 -638.333 -493.333 Weight 58.6 kg 58.6 kg 56.6 kg Intake: IV 240 260 220 Sodium Chloride 0.9% 1, 240 260 220 000 ml @ 10 mls/hr IV . Q24H [facility] Rx#:[id number] Intake, IV Titration 118.000 96.667 231.667 Amount Clevidipine Butyrate 25 118.000 96.667 231.667 mg In Empty Bag 1 bag @ 1 MG/HR 2 mls/hr IV .Q24H [facility] Rx#:[id number] Output: Urine 1525 995 945 Stool 1 Other: Voiding Method Indwelling Catheter Indwelling Catheter Indwelling Catheter ABP, PAP, CO, CI - Last Documented Arterial Blood Pressure 150/59 - Exam GENERAL EXAM: Alert, pleasant 70-year-old gentleman, on 6 L high flow nasal cannula with O2 saturations in the 90s. Currently comfortable in no apparent distress. HEAD: Normocephalic. EYES: Normal reaction of pupils, equal size. NOSE: Clear with pink turbinates. THROAT: No erythema or exudates. NECK: No masses, no JVD. CHEST: No chest wall deformity. LUNGS: Equal air entry with crackles in the bilateral posterior bases. CVS: S1 and S2 normal with no audible murmur, regular rhythm. ABDOMEN: No hepatosplenomegaly, normal bowel sounds, no guarding or rigidity. SPINE: No scoliosis or deformity SKIN: No rashes CENTRAL NERVOUS SYSTEM: No focal deficits, tone is normal in all 4 extremitiest mouth fluctuating mental status currently alert and oriented 1 EXTREMITIES: There is no peripheral edema. No clubbing, no cyanosis. Peripheral pulses are intact. - Labs CBC & Chem 7: 10/13/20 02:56 10/13/20 02:56 Labs: Abnormal Lab Results - Last 24 Hours (Table) 10/13/20 10/13/20 Range/Units 02:56 02:56 WBC 12.9 H (3.8-10.6) k/uL Hgb 12.7 L (13.0-17.5) gm/dL Hct 38.6 L (39.0-53.0) % Neutrophils # 10.8 H (1.3-7.7) k/uL BUN 59 H (9-20) mg/dL Creatinine 2.03 H (0.66-1.25) mg/dL Glucose 120 H (74-99) mg/dL Assessment and Plan Plan: 1 Out of hospital cardiac arrest with CPR and eventual return of spontaneous circulation with down time 5-10 minutes. Intubated at the scene. Successfully extubated on 10/09/2020. 2 Acute hypoxic respiratory failure secondary to above improving on 6L high flow nasal cannula 3 Ventricular tachycardia initially requiring lidocaine and amiodarone with a more stable rhythm, current rhythm is sinus 4 Nonischemic cardiomyopathy with ejection fraction 20% 5 Chronic kidney disease, stage III, creatinine is at 2.03 6 Chronic obstructive pulmonary disease 7 History of chronic tobacco dependence 8 Benign essential hypertension, still on cliviprex which is running at 15 mg an hour 9 Hyperlipidemia 10 Colon cancer status post colon resection 11 Benign prostatic hypertrophy 12 altered mental status, probably due to a component of hypoxic encephalopathy post cardiac arrest Plan Wean off the cliviprex Drip Continue Norvasc 10 mg by mouth daily, clonidine will be increased up to 0.2 mg 3 times a day, continue hydralazine 100 mg 3 times a day and in view of 30 mg by mouth daily. IV fluids to KVO. Continue Augmentin Continue monitoring the mental status his neurologic exam is nonfocal Wean down the FiO2 as tolerated to maintain saturation above 90% given the ICU as long as the patient is still requiring The cliviprex drip for BP control.
[2020-10-13] MEDS: carvediloL 12.5 MG TAB PO SCH ×3 (06:54→16:32)
[2020-10-13] MEDS: IPRATROPIUM-ALBUTEROL 3 ML NEB INHALATION SCH ×4 (08:12→20:15)
[2020-10-13] MEDS: cloNIDine HCL 0.2 MG TAB PO SCH ×4 (08:22→20:21)
[2020-10-13] MEDS: QUEtiapine 100 MG TAB PO SCH (08:22)
[2020-10-13] MEDS: AMOXIC-POT CLAV 875-125MG 1 EACH TAB PO SCH ×2 (08:23→20:21)
[2020-10-13] MEDS: HEPARIN SODIUM,PORCINE 5,000 UNIT/ML 1 ML VIAL SQ SCH ×2 (08:23→16:31)
[2020-10-13] MEDS: AMIODARONE 200 MG TAB PO SCH ×3 (08:23→20:21)
[2020-10-13] MEDS: amLODIPine 10 MG TAB PO SCH (08:23)
[2020-10-13] MEDS: ISOSORBIDE MONONITRATE ER 30 MG TAB.ER.24H PO SCH (08:24)
[2020-10-13] MEDS: THIAMINE 100 MG/ML 2 ML VIAL IVP SCH (08:24)
[2020-10-13] MEDS: hydrALAZINE HCL 50 MG TAB PO SCH ×3 (08:24→20:21)
[2020-10-13] MEDS: FAMOTIDINE 20 MG TAB PO SCH (08:24)
[2020-10-13] MEDS: NYSTATIN 100,000 UNIT/ML SUSP 500,000 UNIT/5 ML CUP PO SCH ×4 (08:24→20:21)
[2020-10-13] MEDS ORDERED: Potassium Replacement Protocol 1 EACH MISC MISCELLANE PRN (10:02)
--- NOTE | 2020-10-13 10:28 | XR ---
EXAMINATION TYPE: XR chest 1V portable DATE OF EXAM: 10/13/2020 COMPARISON: 10/12/2020 HISTORY: Abnormal x-ray TECHNIQUE: Single frontal view of the chest is obtained. FINDINGS: The heart is enlarged and there is hyperinflation. Left-sided central line seen. No overt failure. Slightly coarsened interstitium. Retrocardiac density demonstrates interval improvement. IMPRESSION: 1. COPD with cardiomegaly and improving left lower lobe infiltrate. 2. Correlate for chronic interstitial lung disease or interstitial pneumonitis.
--- NOTE | 2020-10-13 10:30 | P.PN ---
Subjective Progress Note Date: 10/13/20 Pt successfully weaned off on clevidipine as of this morning. Has been having tactile hallucinations, psychosis. Resting comfortably today after taking seroquel. Objective - Vital Signs Vital signs: Vital Signs Temp 98.4 F 10/13/20 08:00 Pulse 81 10/13/20 10:00 Resp 13 10/13/20 10:00 BP 159/75 10/13/20 10:00 Pulse Ox 95 10/13/20 10:00 Intake & Output 10/12/20 10/13/20 10/13/20 18:59 06:59 18:59 Intake Total 356.667 451.667 120 Output Total 995 945 250 Balance -638.333 -493.333 -130 Weight 58.6 kg 56.6 kg Intake: IV 260 220 70 Sodium Chloride 0.9% 1, 260 220 70 000 ml @ 10 mls/hr IV . Q24H [facility] Rx#:[id number] Intake, IV Titration 96.667 231.667 50 Amount Clevidipine Butyrate 25 96.667 231.667 50 mg In Empty Bag 1 bag @ 1 MG/HR 2 mls/hr IV .Q24H [facility] Rx#:[id number] Output: Urine 995 945 250 Other: Voiding Method Indwelling Catheter Indwelling Catheter Indwelling Catheter ABP, PAP, CO, CI - Last Documented Arterial Blood Pressure 150/59 - Exam Gen: awake, alert HEENT: normocephalic, atraumatic, good hearing acuity, moist mucous membranes Resp: good air exchange, no accessory muscle use CVS: good distal perfusion x 4, RRR, no murmurs, clicks, gallops GI: soft, NTTP, ND : no SPT, no CVAT, wynn catheter is present MSK: no pitting edema, no clubbing Neuro: non-focal, no sensory deficits, appropriate tone - Labs CBC & Chem 7: 10/13/20 02:56 10/13/20 02:56 Labs: Abnormal Lab Results - Last 24 Hours (Table) 10/13/20 10/13/20 Range/Units 02:56 02:56 WBC 12.9 H (3.8-10.6) k/uL Hgb 12.7 L (13.0-17.5) gm/dL Hct 38.6 L (39.0-53.0) % Neutrophils # 10.8 H (1.3-7.7) k/uL BUN 59 H (9-20) mg/dL Creatinine 2.03 H (0.66-1.25) mg/dL Glucose 120 H (74-99) mg/dL Assessment and Plan Assessment: 1. Cardiac Arrest with ventricular tachycardia 2. Hypertensive Emergency 3. Acute Metabolic Encephalopathy 4. Acute on Chronic Systolic Heart Failure secondary to non-ischemic cardiomyopathy, EF 20-25% 5. [place] superimposed on CKD, stage IV, resolved 6. Hyponatremia and Hypokalemia, resolved 7. History of Seizures 8. COPD without exacerbation 9. Hyperlipidemia 70 year old man with history of systolic heart failure, CKD IV, HLD/HTN, Hx seizures presented with cardiac arrest in the field requiring 10 minutes of CPR; he was found to be in VTach which converted spontaneously en route, then started on amio gtt in the ER. He was monitored in the ICU where he was treated with diuretics, amiodarone, bronchodilators, and clevidipine for noted hypertensive emergency. After extubation on 10/09, he was placed on AirVo and slowly downtitrated to regular high flow nasal cannula at 10L. Patient was transitioned to oral medications, including: amlodipine, amiodarone, carvedilol, clonidine, hydralazine, imdur, and was titrated off of/using minimal clevidipine gtt. Aborted sudden cardiac with ventricular tachycardia -Cardiology recommendations -on oral amio -Attempt to correct electrolyte abnormalities Hyponatremia secondary to dehydration -improved -Nephrology recs appreciated - follow lytes Hypertensive emergency On clevidipine gtt, try to wean off Norvasc increased to 10 mg, clonidine added 10/12 Hydralazine increased to 100mg tid 10/11 Continue Coreg Continue imdur Hypokalemia -Replaced -Magnesium intact Acute metabolic encephalopathy - According to nursing staff patient has not slept for the past 3 days, order melatonin and reorient frequently - supportive care - neuro recs Seizures: -No AED recommended by neuro as [id number] ok. -Monitor clinically. Acute on chronic systolic congestive heart failure with ejection fraction 20-25% -Continue to hold zaroxolyn, -Patient was given multiple IV pushes of lasix, last on 10/11 -Resume home coreg -Not on URIEL inhibitor or ARB secondary to recent acute kidney injury Acute kidney injury and chronic kidney disease IV with baseline creatinine 2.9, metabolic alkalosis -Improved. Cr likely at baseline now -Avoid nephrotoxic agents -Nephrology following General weakness PT and OT DVT prophylaxis: Heparin Discussed with: Nursing, Anticipated discharge: 3-[address]: [facility]
[2020-10-13] MEDS: POTASSIUM CHLORIDE 10 MEQ in WATER FOR INJECTION 1 100ML.BAG IVPB SCH ×2 (11:04→12:18)
--- NOTE | 2020-10-13 12:23 | PN ---
PROGRESS NOTE This is a 70-year-old gentleman with a nonischemic cardiomyopathy based on a cardiac catheterization that was performed about a month or so ago. He came in with a hypokalemia, electrolyte imbalance, had a metabolic encephalopathy and his seems to be slowly recovering. He has an elevated creatinine. His ejection fraction is less than 35%. I am recommending that increase the Norvasc to 5 mg daily, add losartan 25 mg daily, continue with him with a supportive care. He will need ICD to be performed at a later date. But at this time, we will try to optimize his electrolyte imbalance as well. I am recommending that we give him an additional 2 doses of potassium. It is 3.7 today. Hypokalemia was very significant for his ventricular ectopy. However, he is hemodynamically stable at this time. Denies any chest discomfort. He seems a bit confused. PHYSICAL EXAMINATION: Revealed a blood pressure of 120/70, pulse rate is about 80 per minute. There is JVD of 1 cm. No carotid bruit, S1-S2 heard normally, short systolic murmur left sternal border. Lungs reveal diminished air entry. Abdomen and lower exam unchanged. No neurological deficits. Motor exam reveals that all 4 extremities are phase moving and have reasonable strength. RECOMMENDATIONS: I would recommend that we keep his electrolyte homeostasis supplement potassium level at this time and supplement potassium to improve the level to 4.0 and also consider ICD down the road. The patient's confusion is a question and he will probably benefit from a neurology evaluation. MMANN MARIEL / SILVANON: [id number] /
--- NOTE | 2020-10-13 15:23 | PN ---
PROGRESS NOTE Patient is seen for followup for acute kidney injury. His serum creatinine is slightly worse today at 2.0 from 1.78. The patient is currently receiving. He had been quite agitated last night and received Ativan. He is currently off the Cleviprex drip. Blood pressure has been around 148-139 mmHg systolic, heart rate 87 per minute. Patient has had good urine output. He has an indwelling Ceballos catheter. His 24 hour urine output was about 1.9 L. Currently patient is not on any diuretics. He is not on any IV fluids. Oral intake has been fair. According to nursing staff, the patient had been seeing bugs crawling on the floor. PHYSICAL EXAMINATION: On examination today, patient is sleeping, he is comfortable. Blood pressure was 157/89, heart rate 87 per minute, he is afebrile. Examination shows no evidence of edema bilateral lower extremities. Abdomen is soft, nontender. Patient appears euvolemic. LABS: Show hemoglobin 12.7 g/dL, sodium 144, potassium 3.7, BUN 59, serum creatinine 2.03, calcium is 10.2. ASSESSMENT: 1. Acute kidney injury, ATN, status post cardiac arrest, currently nonoliguric with good urine output. The patient has an indwelling Ceballos catheter. Serum creatinine is slightly higher today than yesterday, continue to encourage increased oral intake, particularly fluids. I will hold off on IV fluids and recheck labs in a.m. We will reassess for hydration again in a.m. Chest x-ray shows bilateral pulmonary infiltrates with improving left lower lobe infiltrate. His renal function overall has improved since admission. 2. Chronic kidney disease stage IV. Baseline creatinine 2.3-2.5 secondary to nephrosclerosis. The patient does have 1+ protein in his urine. He may need to follow up on his on the proteinuria. 3. Status post cardiac arrest. 4. Hallucinations. 5. Hyponatremia, currently improved. 6. Chronic congestive heart failure, ejection fraction 20% to 25%. 7. Cardiomyopathy with ejection fraction 20% to 25%. 8. Acute hypoxic respiratory failure, status post extubation. 9. Hypertension uncontrolled, currently better, status post discontinuation of Cleviprex drip. Continue current oral medications. PLAN: Continue off IV fluids. Repeat labs in a.m. Encourage increased oral intake. Continue to avoid nephrotoxic agents. MMODL / IJN: [id number] /
[2020-10-13] MEDS: SODIUM CHLORIDE 0.9% 1,000 ML IV SCH (16:35)
[2020-10-13] MEDS: MELATONIN 3 MG TABLET PO SCH (20:21)
[2020-10-14] MEDS: HEPARIN SODIUM,PORCINE 5,000 UNIT/ML 1 ML VIAL SQ SCH ×3 (00:51→17:49)
[2020-10-14 05:01] LABS: Basophils # (A) 0.1 k/uL (0-0.2); Basophils % (A) 2 %; Eosinophils # (A) 0.2 k/uL (0-0.7); Eosinophils % (A) 2 %; HCT 36.7 % (39.0-53.0); HGB 11.8 gm/dL (13.0-17.5); Hypochromasia Slight; Lymphocytes # (A) 2.1 k/uL (1.0-4.8); Lymphocytes % (A) 21 %; MCH 29.4 pg (25.0-35.0); MCHC 32.2 g/dL (31.0-37.0); MCV 91.1 fL (80.0-100.0); Mean Platelet Volume 6.8; Monocytes # (A) 0.8 k/uL (0-1.0); Monocytes % (A) 8 %; Neutrophils # (A) 6.2 k/uL (1.3-7.7); Neutrophils % (A) 64 %; Platelet Count 358 k/uL (150-450); RBC 4.03 m/uL (4.30-5.90); RDW 15.2 % (11.5-15.5); WBC 9.7 k/uL (3.8-10.6)
[2020-10-14 05:06] LABS: Calcium 9.4 mg/dL (8.4-10.2); Potassium 4.1 mmol/L (3.5-5.1)
[2020-10-14 05:59] LABS: Glucose,Whole Blood 100 mg/dL (75-99)
[2020-10-14] MEDS: carvediloL 12.5 MG TAB PO SCH ×2 (06:22→17:48)
--- NOTE | 2020-10-14 07:09 | P.PN ---
Subjective Progress Note Date: 10/14/20 70-year-old male patient being seen in follow-up in the intensive care unit. The patient is post cardiac arrest. The patient has history of nonischemic cardiomyopathy with impaired ejection fraction of 20-25%. The patient had episodes of V. tach and converted to sinus rhythm. He received CPR and he did not have a pulse for a total of 5-10 minutes. He had a previous cardiac catheterization that showed noncritical disease involving the LAD. He does have chronic kidney disease. During the course of his ICU stay, the patient was treated with a combination of lidocaine and amiodarone. The patient had a bystander that applied CPR and the patient for a total of 10 minutes. The patient was intubated on the scene. The patient was extubated on 10/09/2020. Currently the patient remains on high flow oxygen 6 L per minute nasal cannula. Chest x-ray showed some interstitial pulmonary infiltrates bilateral/interstitial pulmonary edema. Echocardiogram showed an ejection fraction of 20-25% with moderate degree of mitral regurgitation. The patient had a is post cardiac arrest and ventricular tachycardia. He does have a nonischemic cardiomyopathy with an ejection fraction of 20-25%. Other comorbidities include hypertension and an acute on top of chronic kidney disease. Currently completing course of Augmentin given to her current aspiration pneumonia. The patient on oral amiodarone 200 mg by mouth 3 times a day. The patient is also on Coreg 25 mg by mouth twice a day, clonidine 0.1 mg by mouth 3 times a day in addition to hydralazine 100 mg by mouth 3 times a day for blood pressure control. IV fluids at KVO at 10 mL an hour. Currently on 8 L of oxygen by nasal cannula with a saturation of 94%. He is afebrile. Cleviprex drip is also being utilized for blood pressure control..currently running at 15 mg an hour. The patient is morning is a bit confused. He is altered. His neurologic exam is nonfocal. Is following simple commands. However is not consistent in his response. No neck stiffness. No focal neurological deficit. No seizure activity. His post cardiac arrest. on today's evaluation of 10/14/2020, the patient is more pleasant and less agitated and confused compared to yesterday. Seroquel helped him quite a bit and currently is taking Seroquel at a dose of 100 mg on a daily basis. He did sleep comfortably. He is off the restraints for now. He is off the Cleviprex Drip and the patient has a better blood pressure control.he is producing adeq uate amount of urine output. He is on a combination of Coreg 25 mg by mouth twice a day, clonidine 0.2 mg 3 times a day, hydralazine 100 mg 3 times a day and he is currently on 6 L of oxygen by nasal cannula with a pulse of 77%. This can be further weaned off. Chest x-ray showing cardiomegaly. No acute abnormalities of been noted. The patient's hemoglobin is at 11.8 and is stable. Creatinine is at 1.9 which is stable. Serum bicarb is 21 with a sodium level of 145. Objective - Vital Signs Vital signs: Vital Signs Temp 97.9 F 10/14/20 04:00 Pulse 72 10/14/20 06:00 Resp 8 L 10/14/20 06:00 BP 151/71 10/14/20 06:00 Pulse Ox 96 10/14/20 06:00 Intake & Output 10/13/20 10/14/20 10/14/20 18:59 06:59 18:59 Intake Total 410 230 Output Total 770 570 Balance -360 -340 Weight 54.7 kg Intake: IV 360 230 KVO 110 Potassium Chloride 10 meq 200 In Water For Injection 1 100ml.bag @ 100 mls/hr IVPB Q1H [facility] Rx#: [id number] Sodium Chloride 0.9% 1, 160 120 000 ml @ 10 mls/hr IV . Q24H [facility] Rx#:[id number] Intake, IV Titration 50 Amount Clevidipine Butyrate 25 50 mg In Empty Bag 1 bag @ 1 MG/HR 2 mls/hr IV .Q24H [facility] Rx#:[id number] Output: Urine 770 570 Other: Voiding Method Indwelling Catheter Indwelling Catheter ABP, PAP, CO, CI - Last Documented Arterial Blood Pressure 150/59 - Exam GENERAL EXAM: Alert, pleasant 70-year-old gentleman, on 6 L high flow nasal cannula with O2 saturations in the 90s. Currently comfortable in no apparent distress. HEAD: Normocephalic. EYES: Normal reaction of pupils, equal size. NOSE: Clear with pink turbinates. THROAT: No erythema or exudates. NECK: No masses, no JVD. CHEST: No chest wall deformity. LUNGS: Equal air entry with crackles in the bilateral posterior bases. CVS: S1 and S2 normal with no audible murmur, regular rhythm. ABDOMEN: No hepatosplenomegaly, normal bowel sounds, no guarding or rigidity. SPINE: No scoliosis or deformity SKIN: No rashes CENTRAL NERVOUS SYSTEM: No focal deficits, tone is normal in all 4 extremitiest mouth fluctuating mental status currently alert and oriented 1. less agitated compared to yesterday. EXTREMITIES: There is no peripheral edema. No clubbing, no cyanosis. Peripheral pulses are intact. - Labs CBC & Chem 7: 10/14/20 04:33 10/14/20 04:33 Labs: Abnormal Lab Results - Last 24 Hours (Table) 10/14/20 10/14/20 10/14/20 Range/Units 04:33 04:33 05:57 RBC 4.03 L (4.30-5.90) m/uL Hgb 11.8 L (13.0-17.5) gm/dL Hct 36.7 L (39.0-53.0) % Chloride 110 H (98-107) mmol/L Carbon Dioxide 21 L (22-30) mmol/L BUN 66 H (9-20) mg/dL Creatinine 1.93 H (0.66-1.25) mg/dL POC Glucose (mg/dL) 100 H (75-99) mg/dL Assessment and Plan Plan: 1 Out of hospital cardiac arrest with CPR and eventual return of spontaneous circulation with down time 5-10 minutes. Intubated at the scene. Successfully extubated on 10/09/2020. 2 Acute hypoxic respiratory failure secondary to above improving on 6L high flow nasal cannulahim a chest x-ray is free of any acute abnormalities. 3 Ventricular tachycardia initially requiring lidocaine and amiodarone with a more stable rhythm, current rhythm is sinus 4 Nonischemic cardiomyopathy with ejection fraction 20% 5 Chronic kidney disease, stage III, creatinine is at 1.9 6 Chronic obstructive pulmonary disease 7 History of chronic tobacco dependence 8 Benign essential hypertension, the patient is off the clevidipine drip and his blood pressure is under much better control 9 Hyperlipidemia 10 Colon cancer status post colon resection 11 Benign prostatic hypertrophy 12 altered mental status, probably due to a component of hypoxic encephalopathy post cardiac arrest Plan cliviprex Drip has been discontinued and the patient is a tighter blood pressure control Continue Norvasc 10 mg by mouth daily, clonidine 0.2 mg 3 times a day, continue hydralazine 100 mg 3 times a day and in view of 30 mg by mouth daily. IV fluids to KVO. Continue Augmentin Continue monitoring the mental status his neurologic exam is nonfocalthis is improved on Seroquel. He still having some fluctuation in his mental status. Wean down the FiO2 as tolerated to maintain saturation above 90% transfer this patient to telemetry unit
--- NOTE | 2020-10-14 09:05 | XR ---
EXAMINATION TYPE: XR chest 1V portable DATE OF EXAM: 10/14/2020 COMPARISON: Prior chest x-ray 10/13/2020 HISTORY: Effusions, abnormal chest x-ray TECHNIQUE: Single frontal view of the chest is obtained. FINDINGS: There are overlying artifacts. Left jugular central venous catheter is stable with the dist al tip overlying superior vena cava. There is no focal air space opacity, pleural effusion, or pneum othorax seen. The cardiac silhouette size is within normal limits. The osseous structures are inta ct. IMPRESSION: No acute process. There is some improvement in aeration.
[2020-10-14] MEDS: IPRATROPIUM-ALBUTEROL 3 ML NEB INHALATION SCH ×4 (09:07→18:44)
--- NOTE | 2020-10-14 09:10 | PN ---
PROGRESS NOTE Mr. Child is status post cardiac arrest with hypokalemia related arrhythmia. He is now in sinus rhythm, hemodynamically stable, resting comfortably, more relaxed, not agitated. Blood pressure is excellent. He Is off the Cleviprex at this time. Vitals are stable. Urine output is decent, S1-S2 heard normally. The patient does not communicate much. S1-S2 heard normally, short systolic murmur. Lungs reveal improved air entry. Abdomen and lower extremity exam unchanged. Plan is to continue current medications and once he improves, he can be moved to the telemetry unit, then we he will require an ICD mainly because of a low ejection fraction and nonischemic cardiomyopathy. The recent ventricular arrhythmias were related to electrolyte imbalance, which has been corrected and he has no further arrhythmia. We will continue amiodarone. Prognosis remains guarded. MMJERRY / SILVANON: [id number] /
[2020-10-14] MEDS: AMIODARONE 200 MG TAB PO SCH ×3 (09:20→20:47)
[2020-10-14] MEDS: cloNIDine HCL 0.2 MG TAB PO SCH ×3 (09:20→19:57)
[2020-10-14] MEDS: AMOXIC-POT CLAV 875-125MG 1 EACH TAB PO SCH ×2 (09:20→20:50)
[2020-10-14] MEDS: hydrALAZINE HCL 50 MG TAB PO SCH ×3 (09:21→19:57)
[2020-10-14] MEDS: ISOSORBIDE MONONITRATE ER 30 MG TAB.ER.24H PO SCH (09:21)
[2020-10-14] MEDS: FAMOTIDINE 20 MG TAB PO SCH (09:21)
[2020-10-14] MEDS: NYSTATIN 100,000 UNIT/ML SUSP 500,000 UNIT/5 ML CUP PO SCH ×4 (09:22→20:50)
[2020-10-14] MEDS: THIAMINE 100 MG/ML 2 ML VIAL IVP SCH (09:22)
[2020-10-14] MEDS: QUEtiapine 100 MG TAB PO SCH (09:22)
--- NOTE | 2020-10-14 09:51 | P.PN ---
Subjective Progress Note Date: 10/14/20 No new complaints. Pt reports thirst, has water at beside, able to drink on his own. Overall improved, oxygen requirement down to 4L, HR and pressures are well controlled. Objective - Vital Signs Vital signs: Vital Signs Temp 98.9 F 10/14/20 08:00 Pulse 64 10/14/20 08:00 Resp 10 L 10/14/20 08:00 BP 155/79 10/14/20 08:00 Pulse Ox 97 10/14/20 08:00 Intake & Output 10/13/20 10/14/20 10/14/20 18:59 06:59 18:59 Intake Total 410 230 Output Total 770 570 Balance -360 -340 Weight 54.7 kg Intake: IV 360 230 KVO 110 Potassium Chloride 10 meq 200 In Water For Injection 1 100ml.bag @ 100 mls/hr IVPB Q1H [facility] Rx#: [id number] Sodium Chloride 0.9% 1, 160 120 000 ml @ 10 mls/hr IV . Q24H [facility] Rx#:[id number] Intake, IV Titration 50 Amount Clevidipine Butyrate 25 50 mg In Empty Bag 1 bag @ 1 MG/HR 2 mls/hr IV .Q24H [facility] Rx#:[id number] Output: Urine 770 570 Other: Voiding Method Indwelling Catheter Indwelling Catheter ABP, PAP, CO, CI - Last Documented Arterial Blood Pressure 150/59 - Exam Gen: awake, alert HEENT: normocephalic, atraumatic, good hearing acuity, moist mucous membranes Resp: good air exchange, no accessory muscle use CVS: good distal perfusion x 4, GI: soft, NTTP, ND : no SPT, no CVAT, wynn catheter is present MSK: no pitting edema, no clubbing Neuro: non-focal, no sensory deficits, appropriate tone - Labs CBC & Chem 7: 10/14/20 04:33 10/14/20 04:33 Labs: Abnormal Lab Results - Last 24 Hours (Table) 10/14/20 10/14/20 10/14/20 Range/Units 04:33 04:33 05:57 RBC 4.03 L (4.30-5.90) m/uL Hgb 11.8 L (13.0-17.5) gm/dL Hct 36.7 L (39.0-53.0) % Chloride 110 H (98-107) mmol/L Carbon Dioxide 21 L (22-30) mmol/L BUN 66 H (9-20) mg/dL Creatinine 1.93 H (0.66-1.25) mg/dL POC Glucose (mg/dL) 100 H (75-99) mg/dL Assessment and Plan Assessment: 1. Cardiac Arrest with ventricular tachycardia 2. Hypertensive Emergency 3. Acute Metabolic Encephalopathy 4. Acute on Chronic Systolic Heart Failure secondary to non-ischemic cardiomyopathy, EF 20-25% 5. BEVERLY superimposed on CKD, stage IV, resolved 6. Hyponatremia and Hypokalemia, resolved 7. History of Seizures 8. COPD without exacerbation 9. Hyperlipidemia 70 year old man with history of systolic heart failure, CKD IV, HLD/HTN, Hx seizures presented with cardiac arrest in the field requiring 10 minutes of CPR; he was found to be in VTach which converted spontaneously en route, then started on amio gtt in the ER. He was monitored in the ICU where he was treated with diuretics, amiodarone, bronchodilators, and clevidipine for noted hypertensive emergency. After extubation on 10/09, he was placed on AirVo and slowly downtitrated to regular high flow nasal cannula at 10L. Patient was transitioned to oral medications, including: amlodipine, amiodarone, carvedilol, clonidine, hydralazine, imdur, and was titrated off of/using minimal clevidipine gtt. Aborted sudden cardiac with ventricular tachycardia -Cardiology recommendations -on oral amio -Attempt to correct electrolyte abnormalities Hyponatremia secondary to dehydration -improved -Nephrology recs appreciated - follow lytes Hypertensive emergency weaned off of clevidipine on 10/14 Norvasc increased to 10 mg, clonidine added 10/12 Hydralazine increased to 100mg tid 10/11 Continue Coreg Continue imdur Hypokalemia -Replaced -Magnesium intact Acute metabolic encephalopathy - melatonin for sleep support - seroquel with good effect - frequent re-orientation - supportive care - neuro recs Seizures: -No AED recommended by neuro as EEG ok. -Monitor clinically. Acute on chronic systolic congestive heart failure with ejection fraction 20-25% -Continue to hold zaroxolyn, -Patient was given multiple IV pushes of lasix, last on 10/11 -Resume home coreg -Not on URIEL inhibitor or ARB secondary to recent acute kidney injury Acute kidney injury and chronic kidney disease IV with baseline creatinine 2.9, metabolic alkalosis -Improved. Cr likely at baseline now -Avoid nephrotoxic agents -Nephrology following General weakness PT and OT DVT prophylaxis: Heparin Discussed with: Nursing, Anticipated discharge: 3-[address]: [facility]
[2020-10-14] MEDS: LOSARTAN 25 MG TAB PO SCH (10:29)
--- NOTE | 2020-10-14 12:31 | PN ---
PROGRESS NOTE Patient is seen for followup for acute kidney injury. Renal function is fairly stable. Serum creatinine staying about 1.9-2 mg/dL. This is down from initial creatinine of 3.1. This morning, patient is lying in bed, he is comfortable, he is not in any acute distress. Cleviprex drip has been off. He is calm today. PHYSICAL EXAMINATION: Blood pressure was 155/82, heart rate 59 per minute, he is afebrile. Examination of the heart S1, S2. Examination of the lungs, bilateral breath sounds are heard. Abdomen is soft, nontender. Examination of the lower extremities shows no evidence of edema. [employer] exam grossly intact. LABS: Show sodium 145, potassium 4.1, chloride 110, BUN 66, serum creatinine 1.93, hemoglobin 11.8 g/dL. ASSESSMENT: 1. Acute kidney injury, acute tubular necrosis, currently stable. Good urine output. Etiology is status post cardiac arrest. Continue to hold off on IV fluids. 2. Chronic kidney disease stage IV. Baseline creatinine 2.3-2.5 previously. Currently, serum creatinine is better staying around 2, which I believe is his baseline. 3. Status post cardiac arrest. 4. Acute hypoxic respiratory failure, status post extubation. 5. Cardiomyopathy, ejection fraction 20%-25%. 6. CHF, chronic, systolic. 7. Hypertension, currently better controlled. PLAN: Continue the clonidine. Continue off of Cleviprex. Cozaar has been added, which we can continue. Increase clonidine if blood pressure remains uncontrolled. Increase Norvasc as well if blood pressure remains uncontrolled. MMODL / IJN: [id number] /
[2020-10-14] MEDS: SODIUM CHLORIDE 0.9% 1,000 ML IV SCH (17:47)
[2020-10-14] MEDS: amLODIPine 5 MG TAB PO SCH (19:57)
[2020-10-14] MEDS: MELATONIN 3 MG TABLET PO SCH (20:47)
[2020-10-15] MEDS: HEPARIN SODIUM,PORCINE 5,000 UNIT/ML 1 ML VIAL SQ SCH ×4 (00:59→23:54)
[2020-10-15] MEDS: carvediloL 12.5 MG TAB PO SCH ×2 (06:32→18:29)
[2020-10-15] MEDS: IPRATROPIUM-ALBUTEROL 3 ML NEB INHALATION SCH ×4 (08:05→20:33)
[2020-10-15 08:33] LABS: Basophils # (A) 0.1 k/uL (0-0.2); Basophils % (A) 1 %; Eosinophils # (A) 0.3 k/uL (0-0.7); Eosinophils % (A) 4 %; HCT 32.8 % (39.0-53.0); Lymphocytes # (A) 2.1 k/uL (1.0-4.8); Lymphocytes % (A) 30 %; MCH 29.7 pg (25.0-35.0); MCHC 33.5 g/dL (31.0-37.0); MCV 88.8 fL (80.0-100.0); Mean Platelet Volume 7.1; Monocytes # (A) 0.3 k/uL (0-1.0); Monocytes % (A) 4 %; Neutrophils # (A) 4.1 k/uL (1.3-7.7); Neutrophils % (A) 58 %; Platelet Count 327 k/uL (150-450); RBC 3.69 m/uL (4.30-5.90); RDW 15.3 % (11.5-15.5); WBC 7.1 k/uL (3.8-10.6)
[2020-10-15 09:05] LABS: Calcium 8.5 mg/dL (8.4-10.2); Potassium 3.6 mmol/L (3.5-5.1)
--- NOTE | 2020-10-15 09:19 | P.PN ---
Subjective Progress Note Date: 10/15/20 70-year-old male patient being seen in follow-up in the intensive care unit. The patient is post cardiac arrest. The patient has history of nonischemic cardiomyopathy with impaired ejection fraction of 20-25%. The patient had episodes of V. tach and converted to sinus rhythm. He received CPR and he did not have a pulse for a total of 5-10 minutes. He had a previous cardiac catheterization that showed noncritical disease involving the LAD. He does have chronic kidney disease. During the course of his ICU stay, the patient was treated with a combination of lidocaine and amiodarone. The patient had a bystander that applied CPR and the patient for a total of 10 minutes. The patient was intubated on the scene. The patient was extubated on 10/09/2020. Currently the patient remains on high flow oxygen 6 L per minute nasal cannula. Chest x-ray showed some interstitial pulmonary infiltrates bilateral/interstitial pulmonary edema. Echocardiogram showed an ejection fraction of 20-25% with moderate degree of mitral regurgitation. The patient had a is post cardiac arrest and ventricular tachycardia. He does have a nonischemic cardiomyopathy with an ejection fraction of 20-25%. Other comorbidities include hypertension and an acute on top of chronic kidney disease. Currently completing course of Augmentin given to her current aspiration pneumonia. The patient on oral amiodarone 200 mg by mouth 3 times a day. The patient is also on Coreg 25 mg by mouth twice a day, clonidine 0.1 mg by mouth 3 times a day in addition to hydralazine 100 mg by mouth 3 times a day for blood pressure control. IV fluids at KVO at 10 mL an hour. Currently on 8 L of oxygen by nasal cannula with a saturation of 94%. He is afebrile. Cleviprex drip is also being utilized for blood pressure control..currently running at 15 mg an hour. The patient is morning is a bit confused. He is altered. His neurologic exam is nonfocal. Is following simple commands. However is not consistent in his response. No neck stiffness. No focal neurological deficit. No seizure activity. His post cardiac arrest. on today's evaluation of 10/14/2020, the patient is more pleasant and less agitated and confused compared to yesterday. Seroquel helped him quite a bit and currently is taking Seroquel at a dose of 100 mg on a daily basis. He did sleep comfortably. He is off the restraints for now. He is off the Cleviprex Drip and the patient has a better blood pressure control.he is producing adeq uate amount of urine output. He is on a combination of Coreg 25 mg by mouth twice a day, clonidine 0.2 mg 3 times a day, hydralazine 100 mg 3 times a day and he is currently on 6 L of oxygen by nasal cannula with a pulse of 77%. This can be further weaned off. Chest x-ray showing cardiomegaly. No acute abnormalities of been noted. The patient's hemoglobin is at 11.8 and is stable. Creatinine is at 1.9 which is stable. Serum bicarb is 21 with a sodium level of 145. On today's evaluation of 10/15/2020, the patient mentally is doing well. He is transferred out of the intensive care unit yesterday. His post cardiac arrest. He had also a component of anoxic encephalopathy which is improving. He remains on Seroquel. His blood pressure medication are being regulated. Yesterday we had a hypotension episode. His BP medications as adjusted by By cardiology. He is currently on a combination of Coreg 25 mg twice a day, clonidine 0.2 mg 3 times a day, hydralazine 100 mg 3 times a day and he is on room air oxygen. No specific complaints. Ceballos catheter is in place. Note that the Norvasc dose has been drop below 5 mg by mouth daily by cardiology. The rest of the blood pressure medications are all the same. He has no specific complaints. He is still a bit weak. Objective - Vital Signs Vital signs: Vital Signs Temp 97.8 F 10/15/20 04:00 Pulse 65 10/15/20 08:18 Resp 16 10/15/20 08:18 BP 165/62 10/15/20 04:00 Pulse Ox 98 10/15/20 04:00 Intake & Output 10/14/20 10/15/20 10/15/20 18:59 06:59 18:59 Intake Total 90 10 Output Total 500 840 Balance -410 -830 Weight 57 kg Intake: IV 90 10 KVO 30 Sodium Chloride 0.9% 1, 60 10 000 ml @ 10 mls/hr IV . Q24H [facility] Rx#:[id number] Output: Urine 500 840 Other: Voiding Method Indwelling Catheter Indwelling Catheter ABP, PAP, CO, CI - Last Documented Arterial Blood Pressure 150/59 - Exam GENERAL EXAM: Alert, pleasant 70-year-old gentleman, on RA O2 saturations in the 90s. Currently comfortable in no apparent distress. HEAD: Normocephalic. EYES: Normal reaction of pupils, equal size. NOSE: Clear with pink turbinates. THROAT: No erythema or exudates. NECK: No masses, no JVD. CHEST: No chest wall deformity. LUNGS: Equal air entry with crackles in the bilateral posterior bases. CVS: S1 and S2 normal with no audible murmur, regular rhythm. ABDOMEN: No hepatosplenomegaly, normal bowel sounds, no guarding or rigidity. SPINE: No scoliosis or deformity SKIN: No rashes CENTRAL NERVOUS SYSTEM: No focal deficits, tone is normal in all 4 extremitiest mouth fluctuating mental status currently alert and oriented 1. less agitated compared to yesterday. EXTREMITIES: There is no peripheral edema. No clubbing, no cyanosis. Peripheral pulses are intact. - Labs CBC & Chem 7: 10/15/20 07:27 10/15/20 07:27 Labs: Abnormal Lab Results - Last 24 Hours (Table) 10/15/20 10/15/20 Range/Units 07:27 07:27 RBC 3.69 L (4.30-5.90) m/uL Hgb 11.0 L (13.0-17.5) gm/dL Hct 32.8 L (39.0-53.0) % BUN 61 H (9-20) mg/dL Creatinine 2.28 H (0.66-1.25) mg/dL Assessment and Plan Plan: 1 Out of hospital cardiac arrest with CPR and eventual return of spontaneous circulation with down time 5-10 minutes. Intubated at the scene. Successfully extubated on 10/09/2020. 2 Acute hypoxic respiratory failure secondary to above improving on room air oxygen 3 Ventricular tachycardia initially requiring lidocaine and amiodarone with a more stable rhythm, current rhythm is sinus 4 Nonischemic cardiomyopathy with ejection fraction 20% 5 Chronic kidney disease, stage III, creatinine is at 2.2 6 Chronic obstructive pulmonary disease 7 History of chronic tobacco dependence 8 Benign essential hypertension, the patient is off the clevidipine drip and his blood pressure is under much better control 9 Hyperlipidemia 10 Colon cancer status post colon resection 11 Benign prostatic hypertrophy 12 altered mental status, probably due to a component of hypoxic encephalopathy post cardiac arrest Plan currently on room air oxygen. His oxygenation is improved. BP is under good control. Optimize CHF, consider AICD, already critical services will be signing off. Monitor renal function. Chest x-ray is stable and improved. He is completing a course of Augmentin for aspiration pneumonia.
[2020-10-15] MEDS: hydrALAZINE HCL 50 MG TAB PO SCH ×3 (10:12→22:02)
[2020-10-15] MEDS: LOSARTAN 25 MG TAB PO SCH (10:16)
[2020-10-15] MEDS: FAMOTIDINE 20 MG TAB PO SCH (10:16)
[2020-10-15] MEDS: ISOSORBIDE MONONITRATE ER 30 MG TAB.ER.24H PO SCH (10:16)
[2020-10-15] MEDS: THIAMINE 100 MG/ML 2 ML VIAL IVP SCH (10:16)
[2020-10-15] MEDS: AMOXIC-POT CLAV 875-125MG 1 EACH TAB PO SCH ×2 (10:16→22:01)
[2020-10-15] MEDS: NYSTATIN 100,000 UNIT/ML SUSP 500,000 UNIT/5 ML CUP PO SCH ×4 (10:17→22:02)
[2020-10-15] MEDS: QUEtiapine 100 MG TAB PO SCH (10:17)
[2020-10-15] MEDS: AMIODARONE 200 MG TAB PO SCH ×2 (11:06→22:02)
[2020-10-15] MEDS: amLODIPine 5 MG TAB PO SCH (11:06)
[2020-10-15] MEDS: cloNIDine HCL 0.2 MG TAB PO SCH (11:06)
[2020-10-15] MEDS: SODIUM CHLORIDE 0.9% 1,000 ML IV SCH (11:24)
[2020-10-15] MEDS: FUROSEMIDE 40 MG TAB PO SCH (12:53)
--- NOTE | 2020-10-15 12:57 | P.PN ---
Subjective Progress Note Date: 10/15/20 No new complaints at this time. Pt resting comfortably upon evaluation today. Now on room air. Finished antibiotics. Objective - Vital Signs Vital signs: Vital Signs Temp 96.9 F L 10/15/20 08:00 Pulse 66 10/15/20 12:02 Resp 16 10/15/20 12:02 BP 155/70 10/15/20 08:00 Pulse Ox 94 L 10/15/20 08:00 Intake & Output 10/14/20 10/15/20 10/15/20 18:59 06:59 18:59 Intake Total 90 10 Output Total 500 840 1 Balance -410 -830 -1 Weight 57 kg Intake: IV 90 10 KVO 30 Sodium Chloride 0.9% 1, 60 10 000 ml @ 10 mls/hr IV . Q24H [facility] Rx#:[id number] Output: Urine 500 840 Stool 1 Other: Voiding Method Indwelling Catheter Indwelling Catheter Indwelling Catheter ABP, PAP, CO, CI - Last Documented Arterial Blood Pressure 150/59 - Exam Gen: asleep, resting comfortably HEENT: normocephalic, atraumatic, good hearing acuity, moist mucous membranes Resp: good air exchange, no accessory muscle use CVS: good distal perfusion x 4, GI: soft, NTTP, ND : no SPT, no CVAT, wynn catheter is present MSK: no pitting edema, no clubbing Neuro: non-focal, no sensory deficits, appropriate tone - Labs CBC & Chem 7: 10/15/20 07:27 10/15/20 07:27 Labs: Abnormal Lab Results - Last 24 Hours (Table) 10/15/20 10/15/20 Range/Units 07:27 07:27 RBC 3.69 L (4.30-5.90) m/uL Hgb 11.0 L (13.0-17.5) gm/dL Hct 32.8 L (39.0-53.0) % BUN 61 H (9-20) mg/dL Creatinine 2.28 H (0.66-1.25) mg/dL Assessment and Plan Assessment: 1. Cardiac Arrest with ventricular tachycardia 2. Hypertensive Emergency 3. Acute Metabolic Encephalopathy 4. Acute on Chronic Systolic Heart Failure secondary to non-ischemic cardiomyopathy, EF 20-25% 5. BEVERLY superimposed on CKD, stage IV, resolved 6. Hyponatremia and Hypokalemia, resolved 7. History of Seizures 8. COPD without exacerbation 9. Hyperlipidemia 70 year old man with history of systolic heart failure, CKD IV, HLD/HTN, Hx seizures presented with cardiac arrest in the field requiring 10 minutes of CPR; he was found to be in VTach which converted spontaneously en route, then started on amio gtt in the ER. He was monitored in the ICU where he was treated with diuretics, amiodarone, bronchodilators, and clevidipine for noted hypertensive emergency. After extubation on 10/09, he was placed on AirVo and slowly downtitrated to regular high flow nasal cannula at 10L. Patient was transitioned to oral medications, including: amlodipine, amiodarone, carvedilol, clonidine, hydralazine, imdur, and was titrated off of/using minimal clevidipine gtt. Aborted sudden cardiac with ventricular tachycardia -Cardiology recommendations -on oral amio -Attempt to correct electrolyte abnormalities Hyponatremia secondary to dehydration -improved -Nephrology recs appreciated - follow lytes Hypertensive emergency weaned off of clevidipine on 10/14 Norvasc increased to 10 mg, clonidine added 10/12 Hydralazine increased to 100mg tid 10/11 Continue Coreg Continue imdur Hypokalemia -Replaced -Magnesium intact Acute metabolic encephalopathy - melatonin for sleep support - seroquel with good effect - frequent re-orientation - supportive care - neuro recs Seizures: -No AED recommended by neuro as EEG ok. -Monitor clinically. Acute on chronic systolic congestive heart failure with ejection fraction 20-25% -Continue to hold zaroxolyn, -Patient was given multiple IV pushes of lasix, last on 10/11 -Resume home coreg -Not on URIEL inhibitor or ARB secondary to recent acute kidney injury Acute kidney injury and chronic kidney disease IV with baseline creatinine 2.9, metabolic alkalosis -Improved. Cr likely at baseline now -Avoid nephrotoxic agents -Nephrology following General weakness PT and OT DVT prophylaxis: Heparin Discussed with: Nursing, Anticipated discharge: 3-[address]: SNF
[2020-10-15] MEDS: POTASSIUM CHLORIDE ER 20 MEQ TAB.ER PO SCH ×2 (12:58→14:37)
--- NOTE | 2020-10-15 14:48 | P.PN ---
Subjective This is a pleasant 70-year-old male past medical history significant for non-ischemic cardiomyopathy, chronic systolic heart falure, non-obstructive 30-40% mid LAD lesion, peripheral vascular disease s/p RFID SPECIALIST of the right iliac, hypertension and dyslipidemia. He follows in the office with Dr. Cardoso. Patient is seen and examined resting comfortably laying flat in bed in no acute distress. He is denying symptoms of chest pain, shortness of breath, dizziness or palpitations. Blood pressure is 132/66 heart rate 73 afebrile maintaining oxygen saturation on room air. Laboratory data reviewed, WBC 7.1, hemoglobin 11, platelets 327, sodium 138, potassium 3.6 and creatinine 2.28. Currently maintained on amiodarone 200 mg 3 times a day, carvedilol 25 mg twice a day, Lasix 40 mg twice a day, hydralazine 100 mg 3 times a day, Imdur 30 mg daily, losartan 25 mg daily, amlodipine 5 mg daily and clonidine 0.2 mg 3 times a day. GENERAL: Well-appearing, well-nourished and in no acute distress. NECK: Supple without JVD or thyromegaly. LUNGS: Breath sounds clear to auscultation bilaterally. Respiration equal and unlabored. No wheezes, rales or rhonchi. HEART: Regular rate and rhythm with systolic ejection murmur at the left sternal border, no rubs or gallops. S1 and S2 heard. EXTREMITIES: Normal range of motion, no edema. No clubbing or cyanosis. Peripheral pulses intact. ASSESSMENT Cardiac arrest secondary to ventricular tachycardia secondary to profound hypokalemia Nonischemic cardiomyopathy Chronic systolic heart failure Chronic kidney disease Hypokalemia, improved Hypertension with episodes of hypotension Nonobstructive coronary artery disease Dyslipidemia Peripheral vascular disease PLAN Given his severely impaired LV function with EF 20-25% and ventricular arrhythmia causing cardiac arrest he will require Life Vest prior to discharge to prevent sudden cardiac . We will initiate this process. Blood pressure seems to be back to baseline. We will discontinue the amlodipine and clonidine. Decrease hydralazine to 50 mg TID and coreg to 12.5 mg BID. Taper amiodarone to 200 mg BID for 7 days; then daily dosing thereafter. Further recommendations to follow based on clinical course. Nurse Practitioner note has been reviewed, I agree with a documented findings and plan of care. Patient was seen and examined. Objective - Vital Signs Vital signs: Vital Signs Temp 96.9 F L 10/15/20 08:00 Pulse 73 10/15/20 14:00 Resp 16 10/15/20 14:00 BP 132/66 10/15/20 12:00 Pulse Ox 95 10/15/20 12:00 Intake & Output 10/14/20 10/15/20 10/15/20 18:59 06:59 18:59 Intake Total 90 10 Output Total 500 840 2 Balance -410 -830 -2 Weight 57 kg 57 kg Intake: IV 90 10 KVO 30 Sodium Chloride 0.9% 1, 60 10 000 ml @ 10 mls/hr IV . Q24H [facility] Rx#:[id number] Output: Urine 500 840 Stool 2 Other: Voiding Method Indwelling Catheter Indwelling Catheter Indwelling Catheter ABP, PAP, CO, CI - Last Documented Arterial Blood Pressure 150/59 - Labs CBC & Chem 7: 10/15/20 07:27 10/15/20 07:27 Labs: Abnormal Lab Results - Last 24 Hours (Table) 10/15/20 10/15/20 Range/Units 07:27 07:27 RBC 3.69 L (4.30-5.90) m/uL Hgb 11.0 L (13.0-17.5) gm/dL Hct 32.8 L (39.0-53.0) % BUN 61 H (9-20) mg/dL Creatinine 2.28 H (0.66-1.25) mg/dL
--- NOTE | 2020-10-15 16:27 | PN ---
PROGRESS NOTE Patient is seen for followup for acute kidney injury. Patient denies any significant complaints. Serum creatinine today is slightly higher at 2.2 from 1.9 and 2 mg/dL earlier. Patient has an indwelling Ceballos catheter, 24 hour urine output at 1.3 L. Blood pressure has not been low. I do see a reading of 68/32. Yesterday, I am not sure if this is accurate. It does appear that he had been running 88 and 99 mmHg as well. PHYSICAL EXAMINATION: On examination today, blood pressure was 132/66, heart rate 66 per minute, he is afebrile. Examination of the heart S1, S2. Examination of the lungs, bilateral breath sounds are heard. Abdomen is soft, nontender. Examination of the lower extremities shows no significant edema. PRISON LIBRARIAN exam is grossly intact. LABS: Show sodium 138, potassium 3.6, chloride 105, CO2 is 24, BUN 61, serum creatinine 2.28, calcium 8.5, hemoglobin 11.0 g/dL. ASSESSMENT: 1. Acute kidney injury. Serum creatinine is slightly higher, mostly associated with hypotension. I did see a blood pressure of 68 yesterday. Cozaar has been added. We will need to closely monitor the renal function and blood pressures since patient has had episodes of hypotension. He may continue with the Cozaar for now as long as his renal function remains stable. 2. Chronic kidney disease stage IV. Baseline creatinine 2.3-2.5 mg/dL. Previously, currently staying mostly around 2. 3. Status post cardiac arrest. 4. Acute hypoxic respiratory failure, status post extubation. 5. Cardiomyopathy, ejection fraction 20%-25%. 6. CHF systolic, currently improved. PLAN: Monitor for hypotension and worsening renal failure. May continue with the Cozaar for now, decrease hydralazine if blood pressure remains low. Systolic blood pressure documented at 68 mmHg yesterday. I am not sure if that was accurate. We will continue to monitor for now. The patient will also need follow up as outpatient. MMODL / IJN: [id number] /
[2020-10-15] MEDS: MELATONIN 3 MG TABLET PO SCH (22:02)
[2020-10-16] MEDS: carvediloL 12.5 MG TAB PO SCH ×2 (06:55→18:47)
[2020-10-16] MEDS: IPRATROPIUM-ALBUTEROL 3 ML NEB INHALATION SCH ×4 (08:30→21:13)
[2020-10-16] MEDS: hydrALAZINE HCL 50 MG TAB PO SCH ×3 (10:10→22:20)
[2020-10-16] MEDS: LOSARTAN 25 MG TAB PO SCH (10:10)
[2020-10-16] MEDS: AMIODARONE 200 MG TAB PO SCH ×2 (10:10→22:19)
[2020-10-16] MEDS: ISOSORBIDE MONONITRATE ER 30 MG TAB.ER.24H PO SCH (10:10)
[2020-10-16] MEDS: FUROSEMIDE 40 MG TAB PO SCH (10:10)
[2020-10-16] MEDS: FAMOTIDINE 20 MG TAB PO SCH (10:10)
[2020-10-16] MEDS: POTASSIUM CHLORIDE ER 20 MEQ TAB.ER PO SCH (10:10)
[2020-10-16] MEDS: AMOXIC-POT CLAV 875-125MG 1 EACH TAB PO SCH ×2 (10:10→22:19)
[2020-10-16] MEDS: NYSTATIN 100,000 UNIT/ML SUSP 500,000 UNIT/5 ML CUP PO SCH ×4 (10:11→22:20)
[2020-10-16] MEDS: THIAMINE 100 MG/ML 2 ML VIAL IVP SCH (10:11)
[2020-10-16] MEDS: QUEtiapine 100 MG TAB PO SCH (10:11)
[2020-10-16] MEDS: HEPARIN SODIUM,PORCINE 5,000 UNIT/ML 1 ML VIAL SQ SCH ×2 (10:11→18:47)
[2020-10-16] MEDS: SODIUM CHLORIDE 0.9% 1,000 ML IV SCH (10:12)
--- NOTE | 2020-10-16 13:03 | P.PN ---
Subjective This is a pleasant 70-year-old male past medical history significant for non-ischemic cardiomyopathy, chronic systolic heart falure, non-obstructive 30-40% mid LAD lesion, peripheral vascular disease s/p RADIOLOGICAL DEFENSE OFFICER of the right iliac, hypertension and dyslipidemia. He follows in the office with Dr. Cardoso. Patient is seen and examined resting comfortably laying flat in bed in no acute distress. He is denying symptoms of chest pain, shortness of breath, dizziness or palpitations. Blood pressure is 132/66 heart rate 73 afebrile maintaining oxygen saturation on room air. Laboratory data reviewed, WBC 7.1, hemoglobin 11, platelets 327, sodium 138, potassium 3.6 and creatinine 2.28. Currently maintained on amiodarone 200 mg 3 times a day, carvedilol 25 mg twice a day, Lasix 40 mg twice a day, hydralazine 100 mg 3 times a day, Imdur 30 mg daily, losartan 25 mg daily, amlodipine 5 mg daily and clonidine 0.2 mg 3 times a day. 10/16/2020 Pt is seen and examined sitting up in the chair in no acute distress. He denies chest pain, shortness of breath, dizziness or palpitations. Blood pressure 132/72 heart rate 80 afebrile and maintaining oxygen saturation on room air. Laboratory data reviewed, WBC 7.1, hemoglobin 11, platelets 327, sodium 138, potassium 3.6 and creatinine 2.28. Telemetry tracings reveal persistent sinus mechanism. GENERAL: Well-appearing, well-nourished and in no acute distress. NECK: Supple without JVD or thyromegaly. LUNGS: Breath sounds clear to auscultation bilaterally. Respiration equal and unlabored. No wheezes, rales or rhonchi. HEART: Regular rate and rhythm with systolic ejection murmur at the left sternal border, no rubs or gallops. S1 and S2 heard. EXTREMITIES: Normal range of motion, no edema. No clubbing or cyanosis. Peripheral pulses intact. ASSESSMENT Cardiac arrest secondary to ventricular tachycardia secondary to profound hypokalemia Nonischemic cardiomyopathy Chronic systolic heart failure Chronic kidney disease Hypokalemia, improved Hypertension with episodes of hypotension Nonobstructive coronary artery disease Dyslipidemia Peripheral vascular disease PLAN Given his severely impaired LV function with EF 20-25% and ventricular arrhythmia causing cardiac arrest he will require Life Vest prior to discharge to prevent sudden cardiac . We will initiate this process. Given the current COVID 19 pandemic restraints we will not repeat an echocardiogram at this time. When Life Vest applied the patient can be discharged to rehab. Follow up with Dr. Cardoso in the office in 2 weeks. Nurse Practitioner note has been reviewed, I agree with a documented findings and plan of care. Patient was seen and examined. Objective - Vital Signs Vital signs: Vital Signs Temp 97.2 F L 10/16/20 08:00 Pulse 80 10/16/20 08:00 Resp 18 10/16/20 08:00 BP 132/72 10/16/20 08:00 Pulse Ox 96 10/16/20 08:00 Intake & Output 10/15/20 10/16/20 10/16/20 18:59 06:59 18:59 Intake Total 0 180 Output Total 2 1301 1 Balance -2 -1301 179 Weight 57 kg 55.6 kg Intake: Oral 0 180 Output: Urine 1300 Stool 2 1 1 Other: Voiding Method Indwelling Catheter Indwelling Catheter Indwelling Catheter ABP, PAP, CO, CI - Last Documented Arterial Blood Pressure 150/59 - Labs CBC & Chem 7: 10/15/20 07:27 10/15/20 07:27
--- NOTE | 2020-10-16 13:16 | P.PN ---
Subjective Progress Note Date: 10/16/20 No new complaints at this time. Patient is on room air, mentation is good. 1 person assist to the bathroom and back with minimal gait instability. PT recommending SNF Objective - Vital Signs Vital signs: Vital Signs Temp 97.2 F L 10/16/20 08:00 Pulse 80 10/16/20 08:00 Resp 18 10/16/20 08:00 BP 132/72 10/16/20 08:00 Pulse Ox 96 10/16/20 08:00 Intake & Output 10/15/20 10/16/20 10/16/20 18:59 06:59 18:59 Intake Total 0 180 Output Total 2 1301 1 Balance -2 -1301 179 Weight 57 kg 55.6 kg Intake: Oral 0 180 Output: Urine 1300 Stool 2 1 1 Other: Voiding Method Indwelling Catheter Indwelling Catheter Indwelling Catheter ABP, PAP, CO, CI - Last Documented Arterial Blood Pressure 150/59 - Exam Gen: asleep, resting comfortably HEENT: normocephalic, atraumatic, good hearing acuity, moist mucous membranes Resp: good air exchange, no accessory muscle use CVS: good distal perfusion x 4, GI: soft, NTTP, ND : no SPT, no CVAT, wynn catheter is present MSK: no pitting edema, no clubbing Neuro: non-focal, no sensory deficits, appropriate tone - Labs CBC & Chem 7: 10/15/20 07:27 10/15/20 07:27 Assessment and Plan Assessment: 1. Cardiac Arrest with ventricular tachycardia 2. Hypertensive Emergency 3. Acute Metabolic Encephalopathy 4. Acute on Chronic Systolic Heart Failure secondary to non-ischemic cardiomyopathy, EF 20-25% 5. BEVERLY superimposed on CKD, stage IV, resolved 6. Hyponatremia and Hypokalemia, resolved 7. History of Seizures 8. COPD without exacerbation 9. Hyperlipidemia 70 year old man with history of systolic heart failure, CKD IV, HLD/HTN, Hx seizures presented with cardiac arrest in the field requiring 10 minutes of CPR; he was found to be in VTach which converted spontaneously en route, then started on amio gtt in the ER. He was monitored in the ICU where he was treated with diuretics, amiodarone, bronchodilators, and clevidipine for noted hypertensive emergency. After extubation on 10/09, he was placed on AirVo and slowly downtitrated to regular high flow nasal cannula at 10L. Patient was transitioned to oral medications, including: amlodipine, amiodarone, carvedilol, clonidine, hydralazine, imdur, and was titrated off of/using minimal clevidipine gtt. Aborted sudden cardiac with ventricular tachycardia -Cardiology recommendations -on oral amio -Attempt to correct electrolyte abnormalities Hyponatremia secondary to dehydration -improved -Nephrology recs appreciated - follow lytes Hypertensive emergency weaned off of clevidipine on 10/14 Norvasc increased to 10 mg, clonidine added 10/12 Hydralazine increased to 100mg tid 10/11 Continue Coreg Continue imdur Hypokalemia -Replaced -Magnesium intact Acute metabolic encephalopathy - melatonin for sleep support - seroquel with good effect - frequent re-orientation - supportive care - neuro recs Seizures: -No AED recommended by neuro as EEG ok. -Monitor clinically. Acute on chronic systolic congestive heart failure with ejection fraction 20-25% -Continue to hold zaroxolyn, -Patient was given multiple IV pushes of lasix, last on 10/11 -Resume home coreg -Not on URIEL inhibitor or ARB secondary to recent acute kidney injury Acute kidney injury and chronic kidney disease IV with baseline creatinine 2.9, metabolic alkalosis -Improved. Cr likely at baseline now -Avoid nephrotoxic agents -Nephrology following General weakness PT and OT DVT prophylaxis: Heparin Discussed with: Nursing, Anticipated discharge: 3-[address]: SNF
--- NOTE | 2020-10-16 15:35 | PN ---
PROGRESS NOTE Patient is seen for followup for acute kidney injury. He is lying in bed. He denies any significant complaints. The patient has an indwelling Ceballos catheter. Urine output is about 1.3 L over the last 24 hours. PHYSICAL EXAMINATION: On examination today, blood pressure is 132/72, heart rate of 80 per minute, he is afebrile. Examination of the heart S1, S2. Examination of the lungs, bilateral breath sounds are heard. Abdomen is soft, nontender. Examination of the lower extremities shows no significant edema. LOGISTICS RESEARCH ENGINEER exam grossly intact. LABS: Show sodium 138, potassium 3.6, chloride 105, BUN 61, serum creatinine 2.28, hemoglobin 11.0 g/dL. ASSESSMENT: 1. Acute kidney injury ATN. Serum creatinine slightly higher today. Patient is maintained on oral Lasix. He was also started on Cozaar 2 days ago. Blood pressure is not significantly low. Therefore, I will continue with the Cozaar and continue with the current dose of Lasix as well. If his renal function continues to worsen, I will decrease the Lasix to 20 mg daily. Continue with the same dose of Cozaar. 2. Status post cardiac arrest. 3. Status post vent dependent respiratory failure. 4. Chronic kidney disease stage IV. Baseline creatinine 2.3-2.5 previously, currently mostly staying around 2. 5. Cardiomyopathy, ejection fraction 20%-25%. 6. CHF systolic, acute on top of chronic. PLAN: Continue with the same dose of Cozaar as well as Lasix. Avoid hypotension. Consider decreasing Lasix if renal function continues to worsen. Monitor electrolytes and replace potassium. MMODL / IJN: [id number] /
[2020-10-16 22:17] VITALS: RESP 18
[2020-10-16] MEDS: MELATONIN 3 MG TABLET PO SCH (22:20)
[2020-10-17] MEDS: HEPARIN SODIUM,PORCINE 5,000 UNIT/ML 1 ML VIAL SQ SCH ×2 (00:57→08:54)
[2020-10-17] MEDS: carvediloL 12.5 MG TAB PO SCH (06:27)
[2020-10-17] MEDS: IPRATROPIUM-ALBUTEROL 3 ML NEB INHALATION SCH ×2 (08:36→12:34)
[2020-10-17] MEDS: NYSTATIN 100,000 UNIT/ML SUSP 500,000 UNIT/5 ML CUP PO SCH (08:52)
[2020-10-17] MEDS: THIAMINE 100 MG/ML 2 ML VIAL IVP SCH (08:52)
[2020-10-17] MEDS: hydrALAZINE HCL 50 MG TAB PO SCH (08:53)
[2020-10-17] MEDS: LOSARTAN 25 MG TAB PO SCH (08:53)
[2020-10-17] MEDS: QUEtiapine 100 MG TAB PO SCH (08:53)
[2020-10-17] MEDS: FAMOTIDINE 20 MG TAB PO SCH (08:53)
[2020-10-17] MEDS: AMOXIC-POT CLAV 875-125MG 1 EACH TAB PO SCH (08:54)
[2020-10-17] MEDS: ISOSORBIDE MONONITRATE ER 30 MG TAB.ER.24H PO SCH (08:54)
[2020-10-17] MEDS: AMIODARONE 200 MG TAB PO SCH (08:54)
[2020-10-17] MEDS: POTASSIUM CHLORIDE ER 20 MEQ TAB.ER PO SCH (08:54)
[2020-10-17] MEDS: FUROSEMIDE 40 MG TAB PO SCH (08:54)
[2020-10-17 11:51] LABS: Calcium 9.2 mg/dL (8.4-10.2); Potassium 4.2 mmol/L (3.5-5.1)
--- NOTE | 2020-10-17 13:00 | PN ---
PROGRESS NOTE Patient is seen for followup for acute kidney injury. Renal function is currently stable with creatinine staying at about 2 mg/dL. I do not have labs from today back yet. PHYSICAL EXAMINATION: Blood pressure was 118/63, heart rate 63 per minute, he is he is afebrile. Examination of the heart S1, S2. Examination of the lungs, bilateral breath sounds are heard. Abdomen is soft, nontender. Examination of the lower extremities shows no evidence of edema. VP OF GLOBAL MARKETING exam is grossly intact. LABS: Show sodium 138, potassium 3.6, BUN 61 serum creatinine 2.28 on 10/15/2020. ASSESSMENT: 1. Acute kidney injury, acute tubular necrosis, currently. Renal function is stable. Patient has been started on Cozaar. He is also maintained on a small dose of oral Lasix. I will order labs for today and we can continue the same dose on the diuretics and angiotensin receptor blockers unless there is significant change in his renal function. 2. Status post cardiac arrest. 3. Status post ventilator-dependent respiratory failure. 4. Chronic kidney disease stage IV. Baseline creatinine 2.3-2.5 previously now staying around 2. 5. Cardiomyopathy, ejection fraction 20%-25%. 6. CHF systolic acute on top of chronic. PLAN: Continue with the current dose of Lasix and Cozaar. Follow up as outpatient. Check labs today. MMODL / IJN: [id number] /
[2020-10-17 13:37] VITALS: BP 128/69; PULSE 81; TEMP 97.4
--- NOTE | 2020-10-17 13:50 | P.DS ---
Providers Date of admission: 10/05/20 20:23 Expected date of discharge: 10/17/20 Attending physician: No Yang MD Consults: 10/05/20 20:13 Consult Physician Stat Consulting Provider: Prisca Sharma Consult Reason/Comments: cardiac arrest Do you want consulting provider notified?: Already Contacted Consult Physician Stat Consulting Provider: Anna Beck Consult Reason/Comments: icu patient Do you want consulting provider notified?: Already Contacted 10/05/20 20:30 Consult Physician Stat Consulting Provider: Terry Rivas Consult Reason/Comments: seizure? Do you want consulting provider notified?: Yes 10/06/20 09:25 Consult Physician Routine Consulting Provider: Brenden Do Consult Reason/Comments: hyponatremia Do you want consulting provider notified?: Yes Primary care physician: Physician Nonstaff Hospital Course: 1. Cardiac Arrest with ventricular tachycardia 2. Hypertensive Emergency 3. Acute Metabolic Encephalopathy 4. Acute on Chronic Systolic Heart Failure secondary to non-ischemic cardiomyopathy, EF 20-25% 5. BEVERLY superimposed on CKD, stage IV, resolved 6. Hyponatremia and Hypokalemia, resolved 7. History of Seizures 8. COPD without exacerbation 9. Hyperlipidemia 70 year old man with history of systolic heart failure secondary to non-ischemic cardiomyopathy, CKD IV, HLD/HTN, Hx seizures presented with cardiac arrest in the field requiring 10 minutes of CPR; he was found to be in VTach which converted spontaneously en route, then started on amio gtt in the ER. He was monitored in the ICU where he was treated with diuretics, amiodarone, bronchodilators, and clevidipine for noted hypertensive emergency. After extubation on 10/09, he was placed on AirVo and slowly downtitrated to regular high flow nasal cannula at 10L, then ultimately to room air. Patient was transitioned to oral medications, including: amlodipine, amiodarone, carvedilol, clonidine, hydralazine, imdur, and was titrated off of clevidipine gtt. Following extubation, patient had agitation issues and was started on melatonin and seroquel with good response. Patient was discharged with adjustments to his medications as reflected in the med rec - with notable changes including decrease of total diuretic medications to lasix 40mg daily from lasix 60mg BID/metolazone 5mg daily; imdur, coreg, hydralazine doses were unchanged; losartan 25mg daily was added. Amiodarone was also added to his medication list for rhythm control strategy. Patient meets indication for an AICD, and this referral will be organized through outpatient cardiology follow up. In the interrim, patient was discharged on a LifeVest while he went to SNF ([facility]) for rehab. Home PT/OT was set up through the [facility] to begin following his stay in SNF for short term subacute rehab. Follow ups with his PCP, Cardiology arranged. I spent 40 minutes preparing this discharge. Assessment: Gen: awake, alert HEENT: normocephalic, atraumatic, good hearing acuity, moist mucous membranes Resp: good air exchange, no accessory muscle use CVS: good distal perfusion x 4, GI: soft, NTTP, ND : no SPT, no CVAT, wynn catheter is present MSK: no pitting edema, no clubbing Neuro: non-focal, no sensory deficits, appropriate tone Patient Condition at Discharge: Good Plan - Discharge Summary Discharge Rx Participant: Yes New Discharge Prescriptions: New Amiodarone [Cordarone] 200 mg PO BID #60 tab Losartan [Cozaar] 25 mg PO DAILY #30 tab Furosemide [Lasix] 40 mg PO DAILY tab QUEtiapine [SEROquel] 100 mg PO DAILY #30 tab Continue clonazePAM [KlonoPIN] 1 mg PO BID Tamsulosin [Flomax] 0.4 mg PO DAILY Mirtazapine [Remeron] 45 mg PO HS Cholecalciferol [Vitamin D3 (25 Mcg = 1000 Iu)] 1,000 unit PO DAILY Amitriptyline HCl [Elavil] 100 mg PO HS Multivitamins, Thera [Multivitamin (formulary)] 1 tab PO DAILY Melatonin 3 mg PO HS Famotidine [Pepcid] 20 mg PO BID PRN PRN Reason: Heartburn Docusate [Colace] 200 mg PO DAILY Budesonide/Formoterol Fumarate [Symbicort 160-4.5 Mcg Inhaler] 2 puff INHALATION RT-BID Albuterol Inhaler [Ventolin Hfa Inhaler] 1 puff INHALATION RT-QID PRN PRN Reason: Shortness Of Breath Aspirin 81 mg PO DAILY #30 chew carvediloL [Coreg*] 12.5 mg PO BID-W/MEALS #60 tab Nitroglycerin Sl Tabs [Nitrostat] 0.4 mg SUBLINGUAL Q5M PRN #20 tab PRN Reason: Chest Pain Ipratropium-Albuterol Nebulize [Duoneb 0.5 mg-3 mg/3 ml Soln] 3 ml INHALATION RT-Q4H #300 ml hydrALAZINE HCL [Apresoline] 50 mg PO TID #90 tab Isosorbide Mononitrate ER [Imdur] 30 mg PO DAILY #30 tab.er.24h Atorvastatin [Lipitor] 20 mg PO HS #30 tab Discontinued Furosemide [Lasix] 60 mg PO BID #60 tab metOLazone [Zaroxolyn] 2.5 mg PO DAILY #30 tab Discharge Medication List Amitriptyline HCl [Elavil] 100 mg PO HS 06/04/16 [History] Cholecalciferol [Vitamin D3 (25 Mcg = 1000 Iu)] 1,000 unit PO DAILY 06/04/16 [History] Mirtazapine [Remeron] 45 mg PO HS 06/04/16 [History] Tamsulosin [Flomax] 0.4 mg PO DAILY 06/04/16 [History] clonazePAM [KlonoPIN] 1 mg PO BID 06/04/16 [History] Albuterol Inhaler [Ventolin Hfa Inhaler] 1 puff INHALATION RT-QID PRN 06/08/20 [History] Budesonide/Formoterol Fumarate [Symbicort 160-4.5 Mcg Inhaler] 2 puff INHALATION RT-BID 06/08/20 [History] Docusate [Colace] 200 mg PO DAILY 06/08/20 [History] Famotidine [Pepcid] 20 mg PO BID PRN 06/08/20 [History] Melatonin 3 mg PO HS 06/08/20 [History] Multivitamins, Thera [Multivitamin (formulary)] 1 tab PO DAILY 06/08/20 [History] Aspirin 81 mg PO DAILY #30 chew 06/13/20 [Rx] Ipratropium-Albuterol Nebulize [Duoneb 0.5 mg-3 mg/3 ml Soln] 3 ml INHALATION RT-Q4H #300 ml 09/09/20 [Rx] Nitroglycerin Sl Tabs [Nitrostat] 0.4 mg SUBLINGUAL Q5M PRN #20 tab 09/09/20 [Rx] carvediloL [Coreg*] 12.5 mg PO BID-W/MEALS #60 tab 09/09/20 [Rx] Atorvastatin [Lipitor] 20 mg PO HS #30 tab 09/23/20 [Rx] Isosorbide Mononitrate ER [Imdur] 30 mg PO DAILY #30 tab.er.24h 09/23/20 [Rx] hydrALAZINE HCL [Apresoline] 50 mg PO TID #90 tab 09/23/20 [Rx] Amiodarone [Cordarone] 200 mg PO BID #60 tab 10/17/20 [Rx] Furosemide [Lasix] 40 mg PO DAILY tab 10/17/20 [Rx] Losartan [Cozaar] 25 mg PO DAILY #30 tab 10/17/20 [Rx] QUEtiapine [SEROquel] 100 mg PO DAILY #30 tab 10/17/20 [Rx] Follow up Appointment(s)/Referral(s): Rashad Cardoso MD [STAFF PHYSICIAN] - 1 Week Nonstaff,Physician [Primary Care Provider] - 1-2 days Activity/Diet/Wound Care/Special Instructions: Fax D/C med list to [facility] [phone] (even if pt is going to rehab) Discharge Disposition: TRANSFER TO SNF/ECF
[2020-10-17 14:57] VITALS: BMI 17.9
== END 2020-10-17 15:55 | DRG 308 ==
LOC: EC 19:40 → 2SICU 20:23 → 3SCARD 10-14 21:11
PROVIDERS: ADMIT Internal Medicine; ATTEND Internal Medicine
PROC: 5A1945Z Respiratory Ventilation, 24-96 Consecutive Hours (ICD-10-PCS; principal; 2020-10-05)
PROC: 0D9670Z Drainage of Stomach with Drainage Device, Via Natural or Artificial Opening (ICD-10-PCS; principal; 2020-10-05)
PROC: 0BH18EZ Insertion of Endotracheal Airway into Trachea, Via Natural or Artificial Opening Endoscopic (ICD-10-PCS; principal; 2020-10-05)
PROC: 3E0G76Z Introduction of Nutritional Substance into Upper GI, Via Natural or Artificial Opening (ICD-10-PCS; 2020-10-06)
PROC: 4A133J1 Monitoring of Arterial Pulse, Peripheral, Percutaneous Approach (ICD-10-PCS; 2020-10-07)
PROC: 3E033XZ Introduction of Vasopressor into Peripheral Vein, Percutaneous Approach (ICD-10-PCS; 2020-10-07)
PROC: 02H633Z Insertion of Infusion Device into Right Atrium, Percutaneous Approach (ICD-10-PCS; 2020-10-07)
PROC: 4A133B1 Monitoring of Arterial Pressure, Peripheral, Percutaneous Approach (ICD-10-PCS; 2020-10-07)
PROC: 03HY32Z Insertion of Monitoring Device into Upper Artery, Percutaneous Approach (ICD-10-PCS; 2020-10-07)
DX: I47.2 Ventricular tachycardia (principal); G93.41 Metabolic encephalopathy; I50.23 Acute on chronic systolic (congestive) heart failure; J69.0 Pneumonitis due to inhalation of food and vomit; J96.01 Acute respiratory failure with hypoxia; N17.0 Acute kidney failure with tubular necrosis; E87.1 Hypo-osmolality and hyponatremia; E87.4 Mixed disorder of acid-base balance; G93.1 Anoxic brain damage, not elsewhere classified; I13.0 Hypertensive heart and chronic kidney disease with heart failure and stage 1 through stage 4 chronic kidney disease, or unspecified chronic kidney disease; I16.1 Hypertensive emergency; I42.8 Other cardiomyopathies; J98.11 Atelectasis; N18.4 Chronic kidney disease, stage 4 (severe); E78.5 Hyperlipidemia, unspecified; E86.0 Dehydration; E86.1 Hypovolemia; E87.6 Hypokalemia; R56.9 Unspecified convulsions; Z20.828 Contact with and (suspected) exposure to other viral communicable diseases; I49.01 Ventricular fibrillation; I46.2 Cardiac arrest due to underlying cardiac condition; F29 Unspecified psychosis not due to a substance or known physiological condition; F32.9 Major depressive disorder, single episode, unspecified; F41.9 Anxiety disorder, unspecified; G25.81 Restless legs syndrome; H57.04 Mydriasis; I25.10 Atherosclerotic heart disease of native coronary artery without angina pectoris; I34.0 Nonrheumatic mitral (valve) insufficiency; I44.0 Atrioventricular block, first degree; I73.9 Peripheral vascular disease, unspecified; J44.9 Chronic obstructive pulmonary disease, unspecified; N40.0 Benign prostatic hyperplasia without lower urinary tract symptoms; T50.2X5A Adverse effect of carbonic-anhydrase inhibitors, benzothiadiazides and other diuretics, initial encounter; R45.1 Restlessness and agitation; Z87.891 Personal history of nicotine dependence; Z98.1 Arthrodesis status; Z90.49 Acquired absence of other specified parts of digestive tract; Z83.2 Family history of diseases of the blood and blood-forming organs and certain disorders involving the immune mechanism; Z80.3 Family history of malignant neoplasm of breast; Z82.5 Family history of asthma and other chronic lower respiratory diseases; R79.89 Other specified abnormal findings of blood chemistry; R94.5 Abnormal results of liver function studies; I45.81 Long QT syndrome; K21.9 Gastro-esophageal reflux disease without esophagitis; Z79.51 Long term (current) use of inhaled steroids; Z79.82 Long term (current) use of aspirin; Z79.899 Other long term (current) drug therapy; Z82.41 Family history of sudden cardiac death; Z85.038 Personal history of other malignant neoplasm of large intestine; Z98.62 Peripheral vascular angioplasty status
CPT/HCPCS: 31500; 36415; 36600; 70450; 71045; 76770; 80048; 80053; 80306; 81001; 82140; 82330; 82805; 83605; 83735; 83880; 83930; 83935; 84100; 84132; 84133; 84145; 84300; 84443; 84484; 85025; 85027; 85610; 85730; 87070; 87205; 87635; 93005; 94002; 94003; 94640; 95816; 96365; 96375; 99291

== ENCOUNTER 2020-10-21 15:03 | Emergency (ER) | payer MEDICARE ==
[2020-10-21 15:08] VITALS: RESP 18; TEMP 98.4
[2020-10-21] MEDS ORDERED: SODIUM CHLORIDE 0.9% 1,000 ML IV STA ×2 (15:13)
--- NOTE | 2020-10-21 15:18 | ED ---
Dizziness HPI - General Chief Complaint: Syncope Stated Complaint: hypotension Time Seen by Provider: 10/21/20 15:03 Source: patient, EMS, RN notes reviewed Mode of arrival: EMS Limitations: no limitations - History of Present Illness Initial Comments: This is a 70-year-old male with a history of a recent cardiac arrest history of metabolic encephalopathy major depression COPD and low ejection fraction among other problems who is brought in for evaluation of hypotension. He apparently did pass out also. He had a blood pressure 55/30 F this 72/44. He denies any complaints and is fevers chills nausea times sweats cough phlegm production focal weakness. He stills week he also states he feels thirsty MD Complaint: dizziness, near syncope - Related Data Home Medications Medication Instructions Recorded Confirmed Amitriptyline HCl [Elavil] 100 mg PO HS@209906/04/16 10/21/20 Cholecalciferol [Vitamin D3 (25 1,000 unit PO DAILY@0 06/04/16 10/21/20 Mcg = 1000 Iu)] Mirtazapine [Remeron] 45 mg PO HS@209906/04/16 10/21/20 Tamsulosin [Flomax] 0.4 mg PO DAILY@0800 06/04/16 10/21/20 Albuterol Inhaler [Ventolin Hfa 1 puff INHALATION RT-QID PRN 06/08/20 10/21/20 Inhaler] Budesonide/Formoterol Fumarate 2 puff INHALATION RT-BID@0800,1700 06/08/20 10/21/20 [Symbicort 160-4.5 Mcg Inhaler] Docusate [Colace] 200 mg PO DAILY@0600 06/08/20 10/21/20 Famotidine [Pepcid] 20 mg PO BID PRN 06/08/20 10/21/20 Melatonin 3 mg PO HS@209906/08/20 10/21/20 Multivitamins, Thera [Multivitamin 1 tab PO DAILY@0 06/08/20 10/21/20 (formulary)] Amiodarone [Cordarone] 200 mg PO BID@0800,1700 10/21/20 10/21/20 Aspirin 81 mg PO DAILY@0800 10/21/20 10/21/20 Atorvastatin [Lipitor] 20 mg PO HS@2100 10/21/20 10/21/20 Cefuroxime [Ceftin] 250 mg PO BID@0800,1700 10/21/20 10/21/20 Furosemide [Lasix] 40 mg PO DAILY@0800 10/21/20 10/21/20 Isosorbide Mononitrate ER [Imdur] 30 mg PO DAILY@0800 10/21/20 10/21/20 Lactose-Reduced Food [Ensure Plus] 237 ml PO BID@0800,1700 10/21/20 10/21/20 Losartan [Cozaar] 25 mg PO DAILY@0800 10/21/20 10/21/20 Magnesium Hydroxide [Milk of 72,000 mg PO DAILY PRN 10/21/20 10/21/20 Magnesia Concentrate] Na Phos,M-B/Na Phos,Di-Ba [Fleet 133 ml RECTAL Q24H PRN 10/21/20 10/21/20 Adult] QUEtiapine [SEROquel] 100 mg PO DAILY@0800 10/21/20 10/21/20 bisacodyL [Bisacodyl] 10 mg RECTAL Q24H PRN 10/21/20 10/21/20 carvediloL [Coreg*] 12.5 mg PO BID@0800,1700 10/21/20 10/21/20 hydrALAZINE HCL [Apresoline] 50 mg PO TID@0800,1200,1700 10/21/20 10/21/20 Previous Rx's Medication Instructions Recorded Ipratropium-Albuterol Nebulize 3 ml INHALATION RT-Q4H #300 ml 09/09/20 [Duoneb 0.5 mg-3 mg/3 ml Soln] Nitroglycerin Sl Tabs [Nitrostat] 0.4 mg SUBLINGUAL Q5M PRN #20 tab 09/09/20 Allergies Allergy/AdvReac Type Severity Reaction Status Date / Time lisinopril Allergy swollen Verified 10/21/20 16:33 testicle,rash morphine AdvReac Nausea & Verified 10/21/20 16:33 Vomiting Review of Systems ROS Statement: Those systems with pertinent positive or pertinent negative responses have been documented in the HPI. ROS Other: All systems not noted in ROS Statement are negative. Past Medical History Past Medical History: Cancer, COPD, GERD/Reflux, Hyperlipidemia, Hypertension, Prostate Disorder Additional Past Medical History / Comment(s): cancerous polyp,enlarged prostate,HEMORRHOIDS, BLOOD IN STOOL, RESTLESS LEG - intermittent, colon Cancer History of Any Multi-Drug Resistant Organisms: None Reported Past Surgical History: Appendectomy, Orthopedic Surgery Additional Past Surgical History / Comment(s): ACL SX RT KNEE X3, LEFT HEEL FUSION, LEFT ARM BICEP SX, NASAL SX R/T ULCER, colon resection, COLONOSCOPY, Past Anesthesia/Blood Transfusion Reactions: No Reported Reaction Past Psychological History: Anxiety, Depression Smoking Status: Former smoker Past Alcohol Use History: None Reported Past Drug Use History: None Reported - Past Family History Mother Family Medical History: Cancer Additional Family Medical History / Comment(s): BREAST Sister(s) Family Medical History: Deep Vein Thrombosis (DVT) Father Family Medical History: COPD Additional Family Medical History / Comment(s): FROM CARDIAC ARREST General Exam - General Exam Comments Initial Comments: Is a well-developed asthenic appearing male was awake alert oriented 3 Limitations: no limitations General appearance: alert, in no apparent distress Head exam: Present: atraumatic, normocephalic, normal inspection Eye exam: Present: normal appearance, PERRL, EOMI. Absent: scleral icterus, conjunctival injection, periorbital swelling ENT exam: Present: mucous membranes dry Neck exam: Present: normal inspection. Absent: tenderness, meningismus, lymphadenopathy Respiratory exam: Present: normal lung sounds bilaterally. Absent: respiratory distress, wheezes, rales, rhonchi, stridor Cardiovascular Exam: Present: regular rate, normal rhythm, normal heart sounds, other (Patient is late last on). Absent: systolic murmur, diastolic murmur, rubs, gallop, clicks GI/Abdominal exam: Present: soft, normal bowel sounds. Absent: distended, tenderness, guarding, rebound, rigid Extremities exam: Present: normal inspection, full ROM, normal capillary refill. Absent: tenderness, pedal edema, joint swelling, calf tenderness Back exam: Present: normal inspection Neurological exam: Present: alert, oriented X3, CN II-XII intact Psychiatric exam: Present: normal affect, normal mood Skin exam: Present: warm, dry, intact, normal color. Absent: rash Course Vital Signs 10/21/20 10/21/20 10/21/20 15:04 15:13 17:41 Temperature 98.4 F Pulse Rate 73 66 Respiratory 18 18 Rate Blood Pressure 72/44 80/49 122/55 O2 Sat by Pulse 98 Oximetry EKG Findings - EKG Results: EKG: interpreted by ALEXANDER, sinus rhythm (EKG shows sinus rhythm with inferior physical block nonspecific ST-T wave configuration inferior and anterolateral leads rate 71 appear interval 184 QRS duration 110 daily since QTC 42/523 this is compared with EKG dated 10/05/20) Medical Decision Making - Medical Decision Making Reevaluation patient reveals he is much improved after IV hydration his blood pressure is he is awake alert and feels much improved he'll be discharged - Lab Data Result diagrams: 10/21/20 15:10/21/20 15: Lab Results 10/21/20 10/21/20 10/21/20 Range/Units 15:31 15:31 16:48 WBC 8.8 (3.8-10.6) k/uL RBC 3.95 L (4.30-5.90) m/uL Hgb 11.4 L (13.0-17.5) gm/dL Hct 34.9 L (39.0-53.0) % MCV 88.2 (80.0-100.0) fL MCH 28.8 (25.0-35.0) pg MCHC 32.6 (31.0-37.0) g/dL RDW 16.0 H (11.5-15.5) % Plt Count 429 (150-450) k/uL MPV 6.7 Neutrophils % 76 % Lymphocytes % 16 % Monocytes % 4 % Eosinophils % 3 % Basophils % 1 % Neutrophils # 6.7 (1.3-7.7) k/uL Lymphocytes # 1.4 (1.0-4.8) k/uL Monocytes # 0.4 (0-1.0) k/uL Eosinophils # 0.2 (0-0.7) k/uL Basophils # 0.1 (0-0.2) k/uL Sodium 136 L (137-145) mmol/L Potassium 4.0 (3.5-5.1) mmol/L Chloride 105 (98-107) mmol/L Carbon Dioxide 23 (22-30) mmol/L Anion Gap 8 mmol/L BUN 31 H (9-20) mg/dL Creatinine 2.58 H (0.66-1.25) mg/dL Est GFR (CKD-EPI)AfAm 28 (>60 ml/min/1.73 sqM) Est GFR (CKD-EPI)NonAf 25 (>60 ml/min/1.73 sqM) Glucose 137 H (74-99) mg/dL Calcium 9.0 (8.4-10.2) mg/dL Magnesium 1.9 (1.6-2.3) mg/dL Total Bilirubin 0.4 (0.2-1.3) mg/dL AST 31 (17-59) U/L ALT 44 (4-49) U/L Alkaline Phosphatase 90 (38-126) U/L Creatine Kinase 30 L (55-170) U/L Total Protein 6.0 L (6.3-8.2) g/dL Albumin 3.4 L (3.5-5.0) g/dL Urine Color Yellow Urine Appearance Cloudy (Clear) Urine pH 7.5 (5.0-8.0) Ur Specific [place] 1.009 (1.001-1.035) Urine Protein 1+ H (Negative) Urine Glucose (UA) Negative (Negative) Urine Ketones Negative (Negative) Urine Blood Negative (Negative) Urine Nitrite Negative (Negative) Urine Bilirubin Negative (Negative) Urine Urobilinogen <2.0 (<2.0) mg/dL Ur Leukocyte Esterase Large H (Negative) Urine RBC 4 (0-5) /hpf Urine WBC >182 H (0-5) /hpf Ur Squamous Epith Cells <1 (0-4) /hpf Amorphous Sediment Rare H (None) /hpf Urine Bacteria Moderate H (None) /hpf Hyaline Casts 8 H (0-2) /lpf Urine Mucus Occasional H (None) /hpf - Radiology Data Radiology results: report reviewed (I did review the imaging and report no acute findings.), image reviewed Disposition Clinical Impression: Syncope due to orthostatic hypotension, Dehydration, Hypotensive episode, Chronic renal insufficiency Disposition: HOME SELF-CARE Condition: Good Instructions (If sedation given, give patient instructions): Dehydration (ED) Is patient prescribed a controlled substance at d/c from ED?: No Referrals: Hermann Rebolledo MD [Primary Care Provider] - 1-2 days
[2020-10-21 15:44] LABS: Basophils # (A) 0.1 k/uL (0-0.2); Basophils % (A) 1 %; Eosinophils # (A) 0.2 k/uL (0-0.7); Eosinophils % (A) 3 %; HCT 34.9 % (39.0-53.0); HGB 11.4 gm/dL (13.0-17.5); Lymphocytes # (A) 1.4 k/uL (1.0-4.8); Lymphocytes % (A) 16 %; MCH 28.8 pg (25.0-35.0); MCHC 32.6 g/dL (31.0-37.0); MCV 88.2 fL (80.0-100.0); Mean Platelet Volume 6.7; Monocytes # (A) 0.4 k/uL (0-1.0); Monocytes % (A) 4 %; Neutrophils # (A) 6.7 k/uL (1.3-7.7); Neutrophils % (A) 76 %; Platelet Count 429 k/uL (150-450); RBC 3.95 m/uL (4.30-5.90); WBC 8.8 k/uL (3.8-10.6)
[2020-10-21 15:46] LABS: Albumin 3.4 g/dL (3.5-5.0); Magnesium 1.9 mg/dL (1.6-2.3); Total Bilirubin 0.4 mg/dL (0.2-1.3)
--- NOTE | 2020-10-21 15:50 | XR ---
EXAMINATION TYPE: XR chest 1V portable DATE OF EXAM: 10/21/2020 COMPARISON: 10/14/2020 HISTORY: Hypotension TECHNIQUE: Single frontal view of the chest is obtained. FINDINGS: There is no focal air space opacity, pleural effusion, or pneumothorax seen. The cardiac silhouette size is within normal limits. The osseous structures are intact. Hyperinflation noted co rrelate for COPD. Diffuse osteopenia. Biapical pleural thickening. No overt failure. IMPRESSION: 1. COPD.
[2020-10-21 17:16] LABS: Amorphous Sediment,Urine Rare /hpf; Appearance,Urine Cloudy (Clear); Bacteria,Urine Moderate /hpf; Bilirubin,Urine Negative (Negative); Blood,Urine Negative (Negative); Color,Urine Yellow; Glucose,Urine (UA) Negative (Negative); Hyaline Casts,Urine 8 /lpf (0-2); Ketones,Urine Negative (Negative); Leukocyte Esterase,Urine Large (Negative); Mucus,Urine Occasional /hpf; Nitrite,Urine Negative (Negative); PH, Urine 7.5 (5.0-8.0); Protein,Urine 1+ (Negative); RBC,Urine 4 /hpf (0-5); Specific Gravity,Urine 1.009 (1.001-1.035); Squamous Epithelial Cell,Urine <1 /hpf (0-4); Urobilinogen,Urine <2.0 mg/dL (<2.0); WBC,Urine >182 /hpf (0-5)
[2020-10-21 18:12] VITALS: BP 133/69; PULSE 74
== END 2020-10-21 20:30 | disposition home or self-care (01) ==
LOC: EC 15:03
DX: I95.1 Orthostatic hypotension (principal); E86.0 Dehydration; I12.9 Hypertensive chronic kidney disease with stage 1 through stage 4 chronic kidney disease, or unspecified chronic kidney disease; N18.9 Chronic kidney disease, unspecified; J44.9 Chronic obstructive pulmonary disease, unspecified; K21.9 Gastro-esophageal reflux disease without esophagitis; N40.0 Benign prostatic hyperplasia without lower urinary tract symptoms; E78.5 Hyperlipidemia, unspecified; F41.9 Anxiety disorder, unspecified; F32.9 Major depressive disorder, single episode, unspecified; Z79.899 Other long term (current) drug therapy; Z79.51 Long term (current) use of inhaled steroids; Z79.890 Hormone replacement therapy; Z79.82 Long term (current) use of aspirin; Z88.8 Allergy status to other drugs, medicaments and biological substances; Z88.5 Allergy status to narcotic agent; Z85.038 Personal history of other malignant neoplasm of large intestine; Z87.891 Personal history of nicotine dependence
CPT/HCPCS: 36415; 71045; 80053; 81001; 82550; 83735; 85025; 87086; 93005; 96360; 96361; 99284

== ENCOUNTER 2020-11-02 06:17 | Inpatient (IN) | payer MEDICARE, OTHER ==
[2020-11-02] MEDS ORDERED: NITROGLYCERIN SL TABS 0.4 MG TAB SUBLINGUAL STA (06:19)
[2020-11-02] MEDS ORDERED: NITROPRUSSIDE 50 MG in DEXTROSE 5% IN WATER 250 ML IV STA ×2 (06:32)
[2020-11-02] MEDS ORDERED: NITROGLYCERIN-D5W PMX 50 MG in DEXTROSE/WATER 1 250ML.BAG IV ONE (06:34)
--- NOTE | 2020-11-02 06:34 | ED ---
General Adult HPI - General Source: EMS, RN notes reviewed Mode of arrival: EMS Limitations: no limitations <Tien Phillip - Last Filed: 11/02/20 09:28> <Cesar Funes - Last Filed: 11/03/20 07:33> - General Chief complaint: Shortness of Breath Stated complaint: SOB Time Seen by Provider: 11/02/20 06:18 - History of Present Illness Initial comments: 70-year-old male with a past medical history of COPD, CHF, chronic renal failure, recent cardiac arrest, hypertension presents to the emergency room for a chief complaint of shortness of breath. Patient has had shortness of breath starting this morning. States he could not catch his breath. When EMS arrived his oxygen was in the 70s and blood pressure was in the 220s. They were directed to give nitro. Patient recently had a cardiac arrest with ventricular tachycardia and hypertensive emergency and acute heart failure. Ejection fraction 20-25%. Patient reports he is feeling much better upon arrival to the emergency room speaking in full sentences.Patient has no other complaints at this time including chest pain, abdominal pain, nausea or vomiting, headache, or visual changes. (Tien Phillip) - Related Data Home Medications Medication Instructions Recorded Confirmed Amitriptyline HCl [Elavil] 100 mg PO HS@209906/04/16 11/02/20 Cholecalciferol [Vitamin D3 (25 1,000 unit PO DAILY@169906/04/16 11/02/20 Mcg = 1000 Iu)] Mirtazapine [Remeron] 45 mg PO HS@209906/04/16 11/02/20 Tamsulosin [Flomax] 0.4 mg PO DAILY@79906/04/16 11/02/20 Albuterol Inhaler [Ventolin Hfa 1 puff INHALATION RT-QID PRN 06/08/20 11/02/20 Inhaler] Budesonide/Formoterol Fumarate 2 puff INHALATION RT-BID@0800,17006/08/20 11/02/20 [Symbicort 160-4.5 Mcg Inhaler] Docusate [Colace] 200 mg PO DAILY@0600 06/08/20 11/02/20 Famotidine [Pepcid] 20 mg PO BID PRN 06/08/20 11/02/20 Melatonin 3 mg PO HS@209906/08/20 11/02/20 Multivitamins, Thera [Multivitamin 1 tab PO DAILY@1700 06/08/20 11/02/20 (formulary)] Amiodarone [Cordarone] 200 mg PO BID@0800,1700 10/21/20 11/02/20 Aspirin 81 mg PO DAILY@0800 10/21/20 11/02/20 Atorvastatin [Lipitor] 20 mg PO HS@209910/21/20 11/02/20 Furosemide [Lasix] 40 mg PO DAILY@0800 10/21/20 11/02/20 Isosorbide Mononitrate ER [Imdur] 30 mg PO DAILY@0800 10/21/20 11/02/20 Losartan [Cozaar] 25 mg PO DAILY@0800 10/21/20 11/02/20 QUEtiapine [SEROquel] 100 mg PO DAILY@0800 10/21/20 11/02/20 carvediloL [Coreg*] 12.5 mg PO BID@0800,1700 10/21/20 11/02/20 hydrALAZINE HCL [Apresoline] 50 mg PO TID@0800,1200,1700 10/21/20 11/02/20 Previous Rx's Medication Instructions Recorded Ipratropium-Albuterol Nebulize 3 ml INHALATION RT-Q4H #300 ml 09/09/20 [Duoneb 0.5 mg-3 mg/3 ml Soln] Nitroglycerin Sl Tabs [Nitrostat] 0.4 mg SUBLINGUAL Q5M PRN #20 tab 09/09/20 Allergies Allergy/AdvReac Type Severity Reaction Status Date / Time lisinopril Allergy swollen Verified 11/02/20 08:08 testicle,rash morphine AdvReac Nausea & Verified 11/02/20 08:08 Vomiting Review of Systems ROS Other: All systems not noted in ROS Statement are negative. <Tien Phillip - Last Filed: 11/02/20 09:28> ROS Other: All systems not noted in ROS Statement are negative. <Cesar Funes - Last Filed: 11/03/20 07:33> ROS Statement: Those systems with pertinent positive or pertinent negative responses have been documented in the HPI. Past Medical History Past Medical History: Cancer, COPD, GERD/Reflux, Hyperlipidemia, Hypertension, Prostate Disorder Additional Past Medical History / Comment(s): cancerous polyp,enlarged prostate,HEMORRHOIDS, BLOOD IN STOOL, RESTLESS LEG - intermittent, colon Cancer History of Any Multi-Drug Resistant Organisms: None Reported Past Surgical History: Appendectomy, Orthopedic Surgery Additional Past Surgical History / Comment(s): ACL SX RT KNEE X3, LEFT HEEL FUS ION, LEFT ARM BICEP SX, NASAL SX R/T ULCER, colon resection, COLONOSCOPY, Past Anesthesia/Blood Transfusion Reactions: No Reported Reaction Past Psychological History: Anxiety, Depression Smoking Status: Former smoker Past Alcohol Use History: None Reported Past Drug Use History: None Reported - Past Family History Mother Family Medical History: Cancer Additional Family Medical History / Comment(s): BREAST Sister(s) Family Medical History: Deep Vein Thrombosis (DVT) Father Family Medical History: COPD Additional Family Medical History / Comment(s): FROM CARDIAC ARREST <Tien Phillip P - Last Filed: 11/02/20 09:28> General Exam Limitations: no limitations General appearance: alert, in no apparent distress Head exam: Present: atraumatic, normocephalic, normal inspection Eye exam: Present: normal appearance, PERRL, EOMI. Absent: scleral icterus, conjunctival injection, periorbital swelling ENT exam: Present: normal exam, mucous membranes moist Neck exam: Present: normal inspection, full ROM. Absent: tenderness, meningismus, lymphadenopathy Respiratory exam: Present: rales. Absent: respiratory distress, wheezes, rhonchi, stridor Cardiovascular Exam: Present: tachycardia, gallop, S3. Absent: systolic murmur, diastolic murmur, rubs, clicks GI/Abdominal exam: Present: soft, normal bowel sounds. Absent: distended, ten derness, guarding, rebound, rigid Extremities exam: Present: other (club fingers) Neurological exam: Present: alert <Tien Phillip P - Last Filed: 11/02/20 09:28> Course Vital Signs 11/02/20 11/02/20 11/02/20 06:18 06:56 07:23 Temperature Pulse Rate 125 H 117 H 113 H Respiratory 22 18 20 Rate Blood Pressure 191/105 175/99 173/97 O2 Sat by Pulse 95 98 97 Oximetry 11/02/20 11/02/20 11/02/20 08:15 08:25 08:32 Temperature 98.3 F Pulse Rate 112 H 112 H 111 H Respiratory 20 Rate Blood Pressure 165/94 O2 Sat by Pulse 96 Oximetry 11/02/20 11/02/20 11/02/20 09:26 09:42 10:19 Temperature Pulse Rate 110 H 107 H 105 H Respiratory 22 20 20 Rate Blood Pressure 162/91 168/98 161/93 O2 Sat by Pulse 96 97 96 Oximetry 11/02/20 11:07 Temperature Pulse Rate 98 Respiratory 20 Rate Blood Pressure 147/82 O2 Sat by Pulse 96 Oximetry Medical Decision Making - Lab Data Result diagrams: 11/02/20 06:28 11/02/20 06:28 <Tien Phillip - Last Filed: 11/02/20 09:28> - Lab Data Result diagrams: 11/02/20 06:28 11/02/20 06:28 <Cesar Funes - Last Filed: 11/03/20 07:33> - Medical Decision Making Patient was seen, evaluated, and managed by Dr. Funes. Patient was given nitro prior to arrival by EMS given blood pressure in the 200s and did arty subjective improvement in symptoms. Clinically in heart failure exacerbation. Patient recently had heart failure workup given recent cardiac arrest. Ejection fraction 20-25%. Recently consumed very salty food for the holidays including several servings of ham. CBC CMP unremarkable. Patient does have chronic kidney disease. BNP elevated at 61,000. Troponin borderline at 0.059. Chest x-ray does show evidence of pulmonary edema. Patient was started on a nitro drip and given IV nitro. Significant improvement in symptoms. Patient speaking in full sentences. He will be admitted for further management. (Tien Phillip) I saw this patient in conjunction with the physician doctor assistant. I performed independent history and physical exam. Agree with case management. (Marlene Funes) - Lab Data Lab Results 11/02/20 11/02/20 11/02/20 Range/Units 06:28 06:28 06:28 WBC 12.1 H (3.8-10.6) k/uL RBC 3.69 L (4.30-5.90) m/uL Hgb 11.1 L (13.0-17.5) gm/dL Hct 32.9 L (39.0-53.0) % MCV 89.3 (80.0-100.0) fL MCH 30.1 (25.0-35.0) pg MCHC 33.7 (31.0-37.0) g/dL RDW 17.9 H (11.5-15.5) % Plt Count 321 (150-450) k/uL MPV 6.7 Neutrophils % 84 % Lymphocytes % 8 % Monocytes % 4 % Eosinophils % 2 % Basophils % 0 % Neutrophils # 10.2 H (1.3-7.7) k/uL Lymphocytes # 1.0 (1.0-4.8) k/uL Monocytes # 0.5 (0-1.0) k/uL Eosinophils # 0.3 (0-0.7) k/uL Basophils # 0.1 (0-0.2) k/uL Anisocytosis Slight PT 10.6 (9.0-12.0) sec INR 1.0 (<1.2) APTT 26.7 (22.0-30.0) sec Sodium 138 (137-145) mmol/L Potassium 4.4 (3.5-5.1) mmol/L Chloride 101 (98-107) mmol/L Carbon Dioxide 27 (22-30) mmol/L Anion Gap 10 mmol/L BUN 19 (9-20) mg/dL Creatinine 1.93 H (0.66-1.25) mg/dL Est GFR (CKD-EPI)AfAm 40 (>60 ml/min/1.73 sqM) Est GFR (CKD-EPI)NonAf 35 (>60 ml/min/1.73 sqM) Glucose 145 H (74-99) mg/dL Lactic Ac Sepsis Rflx Plasma Lactic Acid Dipesh (0.7-2.0) mmol/L Calcium 8.7 (8.4-10.2) mg/dL Total Bilirubin 0.4 (0.2-1.3) mg/dL AST 35 (17-59) U/L ALT 29 (4-49) U/L Alkaline Phosphatase 118 (38-126) U/L Troponin I (0.000-0.034) ng/mL NT-Pro-B Natriuret Pep pg/mL Total Protein 7.1 (6.3-8.2) g/dL Albumin 4.2 (3.5-5.0) g/dL 11/02/20 11/02/20 11/02/20 Range/Units 06:28 06:28 06:28 WBC (3.8-10.6) k/uL RBC (4.30-5.90) m/uL Hgb (13.0-17.5) gm/dL Hct (39.0-53.0) % MCV (80.0-100.0) fL MCH (25.0-35.0) pg MCHC (31.0-37.0) g/dL RDW (11.5-15.5) % Plt Count (150-450) k/uL MPV Neutrophils % % Lymphocytes % % Monocytes % % Eosinophils % % Basophils % % Neutrophils # (1.3-7.7) k/uL Lymphocytes # (1.0-4.8) k/uL Monocytes # (0-1.0) k/uL Eosinophils # (0-0.7) k/uL Basophils # (0-0.2) k/uL Anisocytosis PT (9.0-12.0) sec INR (<1.2) APTT (22.0-30.0) sec Sodium (137-145) mmol/L Potassium (3.5-5.1) mmol/L Chloride (98-107) mmol/L Carbon Dioxide (22-30) mmol/L Anion Gap mmol/L BUN (9-20) mg/dL Creatinine (0.66-1.25) mg/dL Est GFR (CKD-EPI)AfAm (>60 ml/min/1.73 sqM) Est GFR (CKD-EPI)NonAf (>60 ml/min/1.73 sqM) Glucose (74-99) mg/dL Lactic Ac Sepsis Rflx Plasma Lactic Acid Dipesh 2.2 H* (0.7-2.0) mmol/L Calcium (8.4-10.2) mg/dL Total Bilirubin (0.2-1.3) mg/dL AST (17-59) U/L ALT (4-49) U/L Alkaline Phosphatase (38-126) U/L Troponin I 0.059 H* (0.000-0.034) ng/mL NT-Pro-B Natriuret Pep 11521 pg/mL Total Protein (6.3-8.2) g/dL Albumin (3.5-5.0) g/dL 11/02/20 Range/Units 07:03 WBC (3.8-10.6) k/uL RBC (4.30-5.90) m/uL Hgb (13.0-17.5) gm/dL Hct (39.0-53.0) % MCV (80.0-100.0) fL MCH (25.0-35.0) pg MCHC (31.0-37.0) g/dL RDW (11.5-15.5) % Plt Count (150-450) k/uL MPV Neutrophils % % Lymphocytes % % Monocytes % % Eosinophils % % Basophils % % Neutrophils # (1.3-7.7) k/uL Lymphocytes # (1.0-4.8) k/uL Monocytes # (0-1.0) k/uL Eosinophils # (0-0.7) k/uL Basophils # (0-0.2) k/uL Anisocytosis PT (9.0-12.0) sec INR (<1.2) APTT (22.0-30.0) sec Sodium (137-145) mmol/L Potassium (3.5-5.1) mmol/L Chloride (98-107) mmol/L Carbon Dioxide (22-30) mmol/L Anion Gap mmol/L BUN (9-20) mg/dL Creatinine (0.66-1.25) mg/dL Est GFR (CKD-EPI)AfAm (>60 ml/min/1.73 sqM) Est GFR (CKD-EPI)NonAf (>60 ml/min/1.73 sqM) Glucose (74-99) mg/dL Lactic Ac Sepsis Rflx Y Plasma Lactic Acid Dipesh (0.7-2.0) mmol/L Calcium (8.4-10.2) mg/dL Total Bilirubin (0.2-1.3) mg/dL AST (17-59) U/L ALT (4-49) U/L Alkaline Phosphatase (38-126) U/L Troponin I (0.000-0.034) ng/mL NT-Pro-B Natriuret Pep pg/mL Total Protein (6.3-8.2) g/dL Albumin (3.5-5.0) g/dL Critical Care Time Critical Care Time: Yes (40 minutes) <Cesar Funes - Last Filed: 11/03/20 07:33> Disposition Is patient prescribed a controlled substance at d/c from ED?: No Time of Disposition: 09:29 <Tien Phillip - Last Filed: 11/02/20 09:28> <Cesar Funes - Last Filed: 11/03/20 07:33> Clinical Impression: Hypertensive emergency, CHF (congestive heart failure), Pulmonary edema, Chroni c renal failure, Elevated troponin, Acute on chronic respiratory failure with hypoxia Disposition: ADMITTED IP TO THIS HOSP Condition: Serious
[2020-11-02 06:43] LABS: Anisocytosis Slight; Basophils # (A) 0.1 k/uL (0-0.2); Basophils % (A) 0 %; Eosinophils # (A) 0.3 k/uL (0-0.7); Eosinophils % (A) 2 %; HCT 32.9 % (39.0-53.0); HGB 11.1 gm/dL (13.0-17.5); Lymphocytes % (A) 8 %; MCH 30.1 pg (25.0-35.0); MCHC 33.7 g/dL (31.0-37.0); MCV 89.3 fL (80.0-100.0); Mean Platelet Volume 6.7; Monocytes # (A) 0.5 k/uL (0-1.0); Monocytes % (A) 4 %; Neutrophils # (A) 10.2 k/uL (1.3-7.7); Neutrophils % (A) 84 %; Platelet Count 321 k/uL (150-450); RBC 3.69 m/uL (4.30-5.90); RDW 17.9 % (11.5-15.5); WBC 12.1 k/uL (3.8-10.6)
[2020-11-02 06:55] LABS: Albumin 4.2 g/dL (3.5-5.0); Calcium 8.7 mg/dL (8.4-10.2); Potassium 4.4 mmol/L (3.5-5.1); Total Bilirubin 0.4 mg/dL (0.2-1.3); Total Protein 7.1 g/dL (6.3-8.2)
[2020-11-02 06:56] LABS: Partial Thromboplastin Time 26.7 sec (22.0-30.0); Prothrombin Time 10.6 sec (9.0-12.0)
--- NOTE | 2020-11-02 07:22 | XR ---
EXAM: XR Chest, 2 Views CLINICAL HISTORY: ITS.REASON XR Reason: difficulty breathing TECHNIQUE: Frontal and lateral views of the chest. COMPARISON: Chest x-ray dated 10/21/20 FINDINGS: Lungs: New extensive hazy densities seen within the right mid and bilateral lower lungs. Some interstitial septal thickening is also seen. Pleural space: Small right pleural effusion. No pneumothorax. Heart: Unremarkable. No cardiomegaly. Mediastinum: Unremarkable. Bones/joints: Unremarkable. IMPRESSION: 1. New extensive hazy densities seen within the right mid and bilateral lower lungs. Some interstitial septal thickening is also seen. Question pulmonary edema or pneumonitis. 2. Small right pleural effusion.
[2020-11-02] MEDS ORDERED: FAMOTIDINE 20 MG TAB PO PRN (07:59)
[2020-11-02] MEDS ORDERED: NITROGLYCERIN SL TABS 0.4 MG TAB SUBLINGUAL PRN (07:59)
[2020-11-02] MEDS ORDERED: ALBUTEROL NEBULIZED 2.5 MG/3 ML INHALATION PRN (07:59)
[2020-11-02] MEDS: FUROSEMIDE 10 MG/ML 4 ML VIAL IV SCH ×2 (08:34→22:18)
[2020-11-02] MEDS: hydrALAZINE HCL 50 MG TAB PO SCH ×3 (08:49→17:42)
[2020-11-02] MEDS: carvediloL 12.5 MG TAB PO SCH ×2 (08:50→17:42)
[2020-11-02] MEDS: LOSARTAN 25 MG TAB PO SCH (08:50)
[2020-11-02] MEDS: ASPIRIN 81 MG PO SCH (08:50)
[2020-11-02] MEDS: QUEtiapine 100 MG TAB PO SCH (08:50)
[2020-11-02] MEDS: TAMSULOSIN 0.4 MG CAP.ER.24H PO SCH (08:50)
[2020-11-02] MEDS: AMIODARONE 200 MG TAB PO SCH ×2 (08:50→17:42)
[2020-11-02] MEDS: ISOSORBIDE MONONITRATE ER 30 MG TAB.ER.24H PO SCH (09:55)
[2020-11-02] MEDS: SYMBICORT 160-4.5 MCG INHALER INHALATION SCH ×2 (11:10→19:31)
[2020-11-02] MEDS: IPRATROPIUM-ALBUTEROL 3 ML NEB INHALATION SCH ×5 (11:10→23:40)
[2020-11-02] MEDS: ATORVASTATIN 20 MG TAB PO SCH (22:18)
[2020-11-02] MEDS: MELATONIN 3 MG TABLET PO SCH (22:18)
[2020-11-02] MEDS: MIRTAZAPINE 45 MG TABLET PO SCH (22:28)
[2020-11-03] MEDS: IPRATROPIUM-ALBUTEROL 3 ML NEB INHALATION SCH ×6 (03:37→23:56)
[2020-11-03] MEDS: SYMBICORT 160-4.5 MCG INHALER INHALATION SCH ×2 (08:53→19:11)
[2020-11-03] MEDS: TAMSULOSIN 0.4 MG CAP.ER.24H PO SCH (08:59)
[2020-11-03] MEDS: carvediloL 12.5 MG TAB PO SCH ×2 (08:59→17:08)
[2020-11-03] MEDS: ISOSORBIDE MONONITRATE ER 30 MG TAB.ER.24H PO SCH (08:59)
[2020-11-03] MEDS: ASPIRIN 81 MG PO SCH (08:59)
[2020-11-03] MEDS: hydrALAZINE HCL 50 MG TAB PO SCH ×3 (08:59→17:07)
[2020-11-03] MEDS: AMIODARONE 200 MG TAB PO SCH ×2 (09:00→17:08)
[2020-11-03] MEDS: LOSARTAN 25 MG TAB PO SCH (09:00)
[2020-11-03] MEDS: QUEtiapine 100 MG TAB PO SCH (09:00)
--- NOTE | 2020-11-03 10:35 | P.HPIM ---
History of Present Illness 70-year-old male left with known history of COPD and congestive heart failure EF of around 20-25% recent cardiac arrest for cardiac arrest patient had low EF in with compensative shortness of breath and orthopnea. Patient's symptoms started yesterday patient has been noncompliant with his diet for [place] and has been eating ham and salt. Patient denied any fever chills patient is found to have highly elevated BNP. Patient is admitted with IV Lasix. Patient has elevated serum creatinine 1.93 which is better than his baseline. Review of Systems REVIEW OF SYSTEMS: CONSTITUTIONAL: No fever, no malaise, no fatigue. HEENT: No recent visual problems or hearing problems. Denied any sore throat. CARDIOVASCULAR: No chest pain, no palpitations, no syncope. PULMONARY: no hemoptysis. GASTROINTESTINAL: No diarrhea, no nausea, no vomiting, no abdominal pain. NEUROLOGICAL: No headaches, no weakness, no numbness. HEMATOLOGICAL: Denies any bleeding or petechiae. GENITOURINARY: Denies any burning micturition, frequency, or urgency. MUSCULOSKELETAL/RHEUMATOLOGICAL: Denies any joint pain, swelling, or any muscle pain. ENDOCRINE: Denies any polyuria or polydipsia. The rest of the 14-point review of systems is negative. Past Medical History Past Medical History: Cancer, COPD, GERD/Reflux, Hyperlipidemia, Hypertension, Prostate Disorder Additional Past Medical History / Comment(s): cancerous polyp,enlarged prostate, HEMORRHOIDS, BLOOD IN STOOL, RESTLESS LEG - intermittent, colon Cancer, cardiac arrest in September 2020 History of Any Multi-Drug Resistant Organisms: None Reported Past Surgical History: Appendectomy, Orthopedic Surgery Additional Past Surgical History / Comment(s): ACL SX RT KNEE X3, LEFT HEEL FUSION, LEFT ARM BICEP SX, NASAL SX R/T ULCER, colon resection, COLONOSCOPY, Past Anesthesia/Blood Transfusion Reactions: No Reported Reaction Past Psychological History: Anxiety, Depression Smoking Status: Former smoker Past Alcohol Use History: None Reported Additional Past Alcohol Use History / Comment(s): STARTED AGE 19, SMOKES 1PPD Past Drug Use History: None Reported - Past Family History Mother Family Medical History: Cancer Additional Family Medical History / Comment(s): BREAST Sister(s) Family Medical History: Deep Vein Thrombosis (DVT) Father Family Medical History: COPD Additional Family Medical History / Comment(s): FROM CARDIAC ARREST Medications and Allergies Home Medications Medication Instructions Recorded Confirmed Type Amitriptyline HCl [Elavil] 100 mg PO HS@209906/04/16 11/02/20 History Cholecalciferol [Vitamin D3 (25 1,000 unit PO DAILY@17006/04/16 11/02/20 History Mcg = 1000 Iu)] Mirtazapine [Remeron] 45 mg PO HS@209906/04/16 11/02/20 History Tamsulosin [Flomax] 0.4 mg PO DAILY@0806/04/16 11/02/20 History Albuterol Inhaler [Ventolin Hfa 1 puff INHALATION RT-QID PRN 06/08/20 11/02/20 History Inhaler] Budesonide/Formoterol Fumarate 2 puff INHALATION RT-BID@0800,1700 06/08/20 11/02/20 History [Symbicort 160-4.5 Mcg Inhaler] Docusate [Colace] 200 mg PO DAILY@0600 06/08/20 11/02/20 History Famotidine [Pepcid] 20 mg PO BID PRN 06/08/20 11/02/20 History Melatonin 3 mg PO HS@209906/08/20 11/02/20 History Multivitamins, Thera [Multivitamin 1 tab PO DAILY@169906/08/20 11/02/20 History (formulary)] Ipratropium-Albuterol Nebulize 3 ml INHALATION RT-Q4H #300 ml 09/09/20 11/02/20 Rx [Duoneb 0.5 mg-3 mg/3 ml Soln] Nitroglycerin Sl Tabs [Nitrostat] 0.4 mg SUBLINGUAL Q5M PRN #20 tab 09/09/20 11/02/20 Rx Amiodarone [Cordarone] 200 mg PO BID@0800,1700 10/21/20 11/02/20 History Aspirin 81 mg PO DAILY@0800 10/21/20 11/02/20 History Atorvastatin [Lipitor] 20 mg PO HS@209910/21/20 11/02/20 History Furosemide [Lasix] 40 mg PO DAILY@0800 10/21/20 11/02/20 History Isosorbide Mononitrate ER [Imdur] 30 mg PO DAILY@0800 10/21/20 11/02/20 History Losartan [Cozaar] 25 mg PO DAILY@0800 10/21/20 11/02/20 History QUEtiapine [SEROquel] 100 mg PO DAILY@0800 10/21/20 11/02/20 History carvediloL [Coreg*] 12.5 mg PO BID@0800,1700 10/21/20 11/02/20 History hydrALAZINE HCL [Apresoline] 50 mg PO TID@0800,1200,1700 10/21/20 11/02/20 History Allergies Allergy/AdvReac Type Severity Reaction Status Date / Time lisinopril Allergy swollen Verified 11/02/20 08:08 testicle,rash morphine AdvReac Nausea & Verified 11/02/20 08:08 Vomiting Physical Exam Vitals: Vital Signs Temp Pulse Pulse Resp BP BP Pulse Ox 11/03/20 08:52 96 11/03/20 08:00 97.9 F 93 18 181/80 94 L 11/03/20 04:00 97.8 F 94 20 156/74 97 11/03/20 03:48 86 11/03/20 03:39 82 11/03/20 02:00 88 18 11/03/20 00:00 99.2 F 88 18 122/68 96 11/02/20 23:53 88 11/02/20 23:43 82 11/02/20 20:00 100.0 F H 87 18 114/56 95 11/02/20 19:32 93 11/02/20 16:00 18 122/57 91 L 11/02/20 15:56 93 11/02/20 15:46 92 92 L 11/02/20 14:00 20 11/02/20 12:00 97.5 F L 18 129/71 98 11/02/20 11:48 90 11/02/20 11:07 98 20 147/82 96 11/02/20 10:19 105 H 20 161/93 96 Intake and Output 11/02/20 11/03/20 11/03/20 22:59 06:59 14:59 Intake Total 240 Output Total 1000 1350 400 Balance -760 -1350 -400 Intake: Oral 240 Output: Urine 1000 1350 400 Other: Voiding Method Urinal Urinal # Voids 2 Weight 63.4 kg PHYSICAL EXAMINATION: GENERAL: The patient is alert and oriented x3, not in any acute distress. Well developed, well nourished. HEENT: Pupils are round and equally reacting to light. EOMI. No scleral icterus. No conjunctival pallor. Normocephalic, atraumatic. No pharyngeal erythema. No thyromegaly. CARDIOVASCULAR: S1 and S2 present. No murmurs, rubs, or gallops. PULMONARY: Bibasilar crackles were appreciated ABDOMEN: Soft, nontender, nondistended, normoactive bowel sounds. No palpable organomegaly. MUSCULOSKELETAL: No joint swelling or deformity. EXTREMITIES: No cyanosis, clubbing, or pedal edema. NEUROLOGICAL: Gross neurological examination did not reveal any focal deficits. SKIN: No rashes. Results CBC & Chem 7: 11/02/20 06:28 11/02/20 06:28 Labs: Abnormal Lab Results - Last 24 Hours (Table) 11/02/20 11/02/20 Range/Units 10:45 12: Troponin I 0.273 H* 0.559 H* (0.000-0.034) ng/mL Thrombosis Risk Factor Assmnt - Choose All That Apply Each Risk Factor Represents 2 Points: Age 61-74 years Thrombosis Risk Factor Assessment Total Risk Factor Score: 2 Thrombosis Risk Factor Assessment Level: Low Risk Assessment and Plan Plan: -Acute hypoxic respiratory failure: Secondary to CHF exacerbation patient was requiring 15 L presently on 10 L of oxygen continue with IV Lasix. Cardiology will evaluate the patient patient has a chronic systolic dysfunction with EF of around 20-25%. -Elevated troponin: Probably is secondary to CHF and hypoxia although troponin elevation is in a [place] from 0.05-0.5 -Congestive heart failure chronic systolic dysfunction with acute exacerbation as mentioned above -COPD with mild acute exacerbation continue with inhaled steroids steroids, inhalational treatments. Patient quit smoking a while ago -Essential hypertension -Chronic kidney disease stage IV patient creatinine is better than his baseline -History of seizures -Hyperlipidemia -DVT prophylaxis: Subcu heparin
[2020-11-03 10:39] VITALS: BMI 21.9
[2020-11-03] MEDS: FUROSEMIDE 10 MG/ML 4 ML VIAL IV SCH ×4 (10:55→23:19)
--- NOTE | 2020-11-03 12:00 | P.CRDCN ---
History of Present Illness Consult date: 11/03/20 Chief complaint: Increasing shortness of breath History of present illness: This is a 70-year-old gentleman was known to have severe cardiomyopathy was EF between 20-25% as well as multiple comorbid conditions who presented to the emergency department complaining of increasing shortness of breath. The patient does have history of recurrent heart failure with reduced ejection fraction and he just was discharged from the hospital recently after he was admitted with another episode. He stated that he was in his usual state of 4 level II nights ago, on the when he ate a large meal of meat which was treated. The following day he was experiencing increasing in the shortness of breath but no lower extremities edema and no symptoms of chest pain or chest discomfort nor dizziness or lightheadedness or syncope. The BNP came in to be elevated. The chest x-ray showed findings consistent of heart failure. The last echo revealed severe cardiomyopathy was EF between 20-25%. The patient was admitted to the hospital and he was started on Lasix IV. Past Medical History Past Medical History: Cancer, COPD, GERD/Reflux, Hyperlipidemia, Hypertension, Prostate Disorder Additional Past Medical History / Comment(s): cancerous polyp,enlarged prostate,HEMORRHOIDS, BLOOD IN STOOL, RESTLESS LEG - intermittent, colon Cancer, cardiac arrest in September 2020 History of Any Multi-Drug Resistant Organisms: None Reported Past Surgical History: Appendectomy, Orthopedic Surgery Additional Past Surgical History / Comment(s): ACL SX RT KNEE X3, LEFT HEEL FUSION, LEFT ARM BICEP SX, NASAL SX R/T ULCER, colon resection, COLONOSCOPY, Past Anesthesia/Blood Transfusion Reactions: No Reported Reaction Past Psychological History: Anxiety, Depression Smoking Status: Former smoker Past Alcohol Use History: None Reported Additional Past Alcohol Use History / Comment(s): STARTED AGE 19, SMOKES 1PPD Past Drug Use History: None Reported - Past Family History Mother Family Medical History: Cancer Additional Family Medical History / Comment(s): BREAST Sister(s) Family Medical History: Deep Vein Thrombosis (DVT) Father Family Medical History: COPD Additional Family Medical History / Comment(s): FROM CARDIAC ARREST Medications and Allergies Home Medications Medication Instructions Recorded Confirmed Type Amitriptyline HCl [Elavil] 100 mg PO HS@2100 06/04/16 11/02/20 History Cholecalciferol [Vitamin D3 (25 1,000 unit PO DAILY@1700 06/04/16 11/02/20 History Mcg = 1000 Iu)] Mirtazapine [Remeron] 45 mg PO HS@209906/04/16 11/02/20 History Tamsulosin [Flomax] 0.4 mg PO DAILY@0806/04/16 11/02/20 History Albuterol Inhaler [Ventolin Hfa 1 puff INHALATION RT-QID PRN 06/08/20 11/02/20 History Inhaler] Budesonide/Formoterol Fumarate 2 puff INHALATION RT-BID@0800,1700 06/08/20 11/02/20 History [Symbicort 160-4.5 Mcg Inhaler] Docusate [Colace] 200 mg PO DAILY@0606/08/20 11/02/20 History Famotidine [Pepcid] 20 mg PO BID PRN 06/08/20 11/02/20 History Melatonin 3 mg PO HS@209906/08/20 11/02/20 History Multivitamins, Thera [Multivitamin 1 tab PO DAILY@169906/08/20 11/02/20 History (formulary)] Ipratropium-Albuterol Nebulize 3 ml INHALATION RT-Q4H #300 ml 09/09/20 11/02/20 Rx [Duoneb 0.5 mg-3 mg/3 ml Soln] Nitroglycerin Sl Tabs [Nitrostat] 0.4 mg SUBLINGUAL Q5M PRN #20 tab 09/09/20 11/02/20 Rx Amiodarone [Cordarone] 200 mg PO BID@0800,1700 10/21/20 11/02/20 History Aspirin 81 mg PO DAILY@0810/21/20 11/02/20 History Atorvastatin [Lipitor] 20 mg PO HS@209910/21/20 11/02/20 History Furosemide [Lasix] 40 mg PO DAILY@0810/21/20 11/02/20 History Isosorbide Mononitrate ER [Imdur] 30 mg PO DAILY@0810/21/20 11/02/20 History Losartan [Cozaar] 25 mg PO DAILY@0810/21/20 11/02/20 History QUEtiapine [SEROquel] 100 mg PO DAILY@0800 10/21/20 11/02/20 History carvediloL [Coreg*] 12.5 mg PO BID@0800,1700 10/21/20 11/02/20 History hydrALAZINE HCL [Apresoline] 50 mg PO TID@0800,1200,1700 10/21/20 11/02/20 History Allergies Allergy/AdvReac Type Severity Reaction Status Date / Time lisinopril Allergy swollen Verified 11/02/20 08:08 testicle,rash morphine AdvReac Nausea & Verified 11/02/20 08:08 Vomiting Physical Exam Vitals: Vital Signs Temp Pulse Pulse Resp BP Pulse Ox 11/03/20 11:44 92 11/03/20 11:39 88 11/03/20 09:00 99 11/03/20 08:52 96 11/03/20 08:00 97.9 F 93 18 181/80 94 L 11/03/20 04:00 97.8 F 94 20 156/74 97 11/03/20 03:48 86 11/03/20 03:39 82 11/03/20 02:00 88 18 11/03/20 00:00 99.2 F 88 18 122/68 96 11/02/20 23:53 88 11/02/20 23:43 82 11/02/20 20:00 100.0 F H 87 18 114/56 95 11/02/20 19:32 93 11/02/20 16:00 18 122/57 91 L 11/02/20 15:56 93 11/02/20 15:46 92 92 L 11/02/20 14:00 20 11/02/20 12:00 97.5 F L 18 129/71 98 Intake and Output 11/02/20 11/03/20 11/03/20 22:59 06:59 14:59 Intake Total 240 Output Total 1000 1350 400 Balance -760 -1350 -400 Intake: Oral 240 Output: Urine 1000 1350 400 Other: Voiding Method Urinal Urinal Urinal # Voids 2 Weight 63.4 kg 63.4 kg - Constitutional General appearance: no acute distress - Respiratory Respiratory: bilateral: diminished - Cardiovascular Rhythm: regular Heart sounds: normal: S1, S2 Results 11/02/20 06:28 11/02/20 06:28 Cardiac Enzymes 11/02/20 11/02/20 Range/Units 10:45 12:20 Troponin I 0.273 H* 0.559 H* (0.000-0.034) ng/mL Current Medications Generic Name Dose Route Start Last Admin Trade Name Freq PRN Reason Stop Dose Admin Albuterol Sulfate 2.5 mg 11/02/20 07:59 11/02/20 08:16 Albuterol Nebulized 2.5 Mg/3 Ml INHALATION 2.5 mg RT-QID PRN Administration Shortness Of Breath Albuterol/Ipratropium 3 ml 11/02/20 08:00 11/03/20 11:38 Ipratropium-Albuterol 3 Ml Neb INHALATION 3 ml RT-Q4H SUMMER Administration Amiodarone HCl 200 mg 11/02/20 08:00 11/03/20 09:00 Amiodarone 200 Mg Tab PO 200 mg BID@0800,1700 SUMMER Administration Aspirin 81 mg 11/02/20 08:00 11/03/20 08:59 Aspirin 81 Mg PO 81 mg DAILY@0800 SUMMER Administration Atorvastatin Calcium 20 mg 11/02/20 21:00 11/02/20 22:18 Atorvastatin 20 Mg Tab PO 20 mg HS@2100 SUMMER Administration Budesonide/Formoterol Fumarate 2 puff 11/02/20 08:00 11/03/20 08:53 Symbicort 160-4.5 Mcg Inhaler INHALATION 2 puff RT-BID@0800,1700 SUMMER Administration Carvedilol 12.5 mg 11/02/20 08:00 11/03/20 08:59 Carvedilol 12.5 Mg Tab PO 12.5 mg BID@0800,1700 SUMMER Administration Famotidine 20 mg 11/02/20 07:59 Famotidine 20 Mg Tab PO BID PRN Heartburn Furosemide 40 mg 11/03/20 16:00 11/03/20 10:55 Furosemide 10 Mg/Ml 4 Ml Vial IV 40 mg Q8HR SUMMER Administration Heparin Sodium (Porcine) 5,000 unit 11/03/20 16:00 Heparin Sodium,Porcine 5,000 Unit/Ml 1 Ml Vial SQ Q8HR SUMMER Hydralazine HCl 50 mg 11/02/20 08:00 11/03/20 08:59 Hydralazine Hcl 50 Mg Tab PO 50 mg TID@0800,1200,1700 SUMMER Administration Isosorbide Mononitrate 30 mg 11/02/20 08:00 11/03/20 08:59 Isosorbide Mononitrate Er 30 Mg Tab.Er.24h PO 30 mg DAILY@0800 SUMMER Administration Losartan Potassium 25 mg 11/02/20 08:00 11/03/20 09:00 Losartan 25 Mg Tab PO 25 mg DAILY@0800 SUMMER Administration Melatonin 3 mg 11/02/20 21:00 11/02/20 22:18 Melatonin 3 Mg Tablet PO 3 mg HS@2100 SUMMER Administration Mirtazapine 45 mg 11/02/20 21:00 11/02/20 22:28 Mirtazapine 45 Mg Tablet PO 45 mg HS@2100 SUMMER Administration Nitroglycerin 0.4 mg 11/02/20 07:59 Nitroglycerin Sl Tabs 0.4 Mg Tab SUBLINGUAL Q5M PRN Chest Pain Quetiapine Fumarate 100 mg 11/02/20 08:00 11/03/20 09:00 Quetiapine 100 Mg Tab PO 100 mg DAILY@0800 SUMMER Administration Sodium Chloride 10 ml 11/02/20 09:00 11/03/20 09:00 Sodium Chloride 0.9% Flush 10 Ml Syringe IV 10 ml BID SUMMER Administration Tamsulosin HCl 0.4 mg 11/02/20 08:00 11/03/20 08:59 Tamsulosin 0.4 Mg Cap.Er.24h PO 0.4 mg DAILY@0800 SUMMER Administration Intake and Output 11/02/20 11/03/20 11/03/20 22:59 06:59 14:59 Intake Total 240 Output Total 1000 1350 400 Balance -760 -1350 -400 Intake: Oral 240 Output: Urine 1000 1350 400 Other: Voiding Method Urinal Urinal Urinal # Voids 2 Weight 63.4 kg 63.4 kg Patient Weight 11/04/20 06:59 Weight 63.4 kg 11/02/20 06:28 11/02/20 06:28 Assessment and Plan Assessment: Assessment #1 noncompliant with diet #2 congestive heart failure exacerbation secondary cardiomyopathy was low EF #3 multiple comorbid conditions Plan #1 continue the current dose of Lasix IV #2 continue monitor the kidney function and electrolytes next #3 follow-up with the patient Thank you for allowing us participate in the care of the patient
[2020-11-03] MEDS ORDERED: FAMOTIDINE 20 MG TAB PO PRN (15:21)
[2020-11-03] MEDS: HEPARIN SODIUM,PORCINE 5,000 UNIT/ML 1 ML VIAL SQ SCH ×2 (17:08→23:19)
[2020-11-03] MEDS: ATORVASTATIN 20 MG TAB PO SCH (20:34)
[2020-11-03] MEDS: MELATONIN 3 MG TABLET PO SCH (20:34)
[2020-11-03] MEDS: MIRTAZAPINE 45 MG TABLET PO SCH (20:34)
[2020-11-04] MEDS: IPRATROPIUM-ALBUTEROL 3 ML NEB INHALATION SCH ×3 (03:12→11:32)
[2020-11-04 06:47] LABS: Calcium 8.2 mg/dL (8.4-10.2); Potassium 3.5 mmol/L (3.5-5.1)
[2020-11-04] MEDS: SYMBICORT 160-4.5 MCG INHALER INHALATION SCH (08:04)
--- NOTE | 2020-11-04 08:58 | P.PN ---
Subjective Progress Note Date: 11/04/20 Principal diagnosis: Congestive heart failure exacerbation secondary to systolic dysfunction This is a 70-year-old gentleman with severe cardiomyopathy who was admitted to the hospital again with heart failure exacerbation secondary to systolic dysfunction. Unfortunately he was not compliant with his diet but he stated that he was compliant with his medications. He was seen this morning. He is definitely looking better. He stated that the shortness of breath has improved. He denies any symptoms of chest pain or chest discomfort. On examination he is having mild bilateral expiratory wheezing but I could not hear any crackles. The patient would like to go home. I'm going to DC the Lasix IV and start the patient on Lasix by mouth and 60 mg by mouth daily and possibly he can be discharged later on today. We'll continue following up with him as an outpatient and continue monitor the kidney function and electrolytes Objective - Vital Signs Vital signs: Vital Signs Temp 98.2 F 11/04/20 03:51 Pulse 84 11/04/20 08:20 Resp 16 11/04/20 03:51 BP 168/76 11/04/20 03:51 Pulse Ox 95 11/04/20 03:51 Intake & Output 11/03/20 11/04/20 11/04/20 18:59 06:59 18:59 Intake Total 1620 540 240 Output Total 1050 2250 Balance 570 -1710 240 Weight 63.4 kg 62.9 kg Intake: Oral 1620 540 240 Output: Urine 1050 2250 Other: Voiding Method Urinal Urinal # Voids 1 - Constitutional General appearance: Present: no acute distress - Respiratory Respiratory: bilateral: wheezing - Cardiovascular Rhythm: regular Heart sounds: normal: S1, S2 - Labs CBC & Chem 7: 11/02/20 06:28 11/04/20 05:56 Labs: Abnormal Lab Results - Last 24 Hours (Table) 11/04/20 Range/Units 05:56 Sodium 135 L (137-145) mmol/L BUN 29 H (9-20) mg/dL Creatinine 2.08 H (0.66-1.25) mg/dL Calcium 8.2 L (8.4-10.2) mg/dL Assessment and Plan Assessment: Assessment #1 noncompliant with diet #2 congestive heart failure exacerbation secondary cardiomyopathy was low EF #3 multiple comorbid conditions Plan #1 DC Lasix IV and start Lasix by mouth #2 the patient would like to go home
[2020-11-04] MEDS ORDERED: FUROSEMIDE 20 MG TAB PO SCH (09:00)
[2020-11-04] MEDS: HEPARIN SODIUM,PORCINE 5,000 UNIT/ML 1 ML VIAL SQ SCH (09:26)
[2020-11-04] MEDS: carvediloL 12.5 MG TAB PO SCH (09:26)
[2020-11-04] MEDS: AMIODARONE 200 MG TAB PO SCH (09:26)
[2020-11-04] MEDS: hydrALAZINE HCL 50 MG TAB PO SCH ×2 (09:26→12:32)
[2020-11-04] MEDS: TAMSULOSIN 0.4 MG CAP.ER.24H PO SCH (09:26)
[2020-11-04] MEDS: LOSARTAN 25 MG TAB PO SCH (09:27)
[2020-11-04] MEDS: ASPIRIN 81 MG PO SCH (09:27)
[2020-11-04] MEDS: ISOSORBIDE MONONITRATE ER 30 MG TAB.ER.24H PO SCH (09:27)
[2020-11-04] MEDS: QUEtiapine 100 MG TAB PO SCH (09:27)
[2020-11-04] MEDS: FUROSEMIDE 10 MG/ML 4 ML VIAL IV SCH (09:32)
[2020-11-04 11:20] VITALS: RESP 20; TEMP 98.4
[2020-11-04 13:20] VITALS: BP 149/72; PULSE 81
--- NOTE | 2020-11-05 08:49 | P.DS ---
Providers Date of admission: 11/02/20 07:57 Expected date of discharge: 11/04/20 Attending physician: Josep Marroquin Consults: 11/02/20 07:57 Consult Physician Routine Consulting Provider: Rashad Cardoso Consult Reason/Comments: CHF exacerbation. Do you want consulting provider notified?: Yes Primary care physician: [facility] Course: Final Diagnosis -Acute hypoxic respiratory failure: Secondary to CHF exacerbation -Elevated troponin: Probably is secondary to CHF and hypoxia -Congestive heart failure chronic systolic dysfunction with acute exacerbation as mentioned above -COPD with mild acute exacerbation -Essential hypertension -Chronic kidney disease stage IV -History of seizures -Hyperlipidemia -DVT prophylaxis Discharge disposition Patient is being discharged in a stable condition with guarded prognosis to home. Patient will follow-up with Dr. Rebolledo in the outpatient setting upon discharge. Patient is also to follow-up with Dr. Cardoso as scheduled. Total time taken is greater than 35 minutes. History of present illness This is a 70-year-old male who was recently admitted with symptoms of worsening shortness of breath and noncompliance with his diet and was being closely monitored. Patient does have a history of congestive heart failure with most recent EF showing 20-25% along with recent cardiac arrest and COPD. Patient was initiated on IV Lasix and will continue with oral Lasix 60 mg daily in the outpatient setting. Patient's blood pressure was also elevated and medication adjustments have been made. Patient was seen and evaluated by cardiology and will be following up in the outpatient setting with Dr. Cardoso. Instructed and educated and provided materials on proper diet for those with congestive heart failure. Currently no reports of chest pain, shortness of breath, or palpitations. Patient is afebrile. No reports of nausea or vomiting and patient is tolerating diet. Patient will be discharged today. On exam vital signs are stable. Temp is 98.4F, pulse is 81, respirations are 20, blood pressure is 149/72, oxygen saturation is 90% on room air. Cardio S1, S2 are muffled. Respiratory system shows diminished breath sounds at the bases with no wheezing or rhonchi noted. Abdomen is soft and nontender. Nervous system shows no focal deficits. Please refer to medication reconciliation sheet for a list of medications. Patient Condition at Discharge: Stable Plan - Discharge Summary Discharge Rx Participant: No New Discharge Prescriptions: New Furosemide [Lasix] 60 mg PO DAILY 30 Days #90 tab Continue Tamsulosin [Flomax] 0.4 mg PO DAILY@0800 Mirtazapine [Remeron] 45 mg PO HS@2100 Cholecalciferol [Vitamin D3 (25 Mcg = 1000 Iu)] 1,000 unit PO DAILY@1700 Multivitamins, Thera [Multivitamin (formulary)] 1 tab PO DAILY@1700 Melatonin 3 mg PO HS@2100 Famotidine [Pepcid] 20 mg PO BID PRN PRN Reason: Heartburn Docusate [Colace] 200 mg PO DAILY@0600 Budesonide/Formoterol Fumarate [Symbicort 160-4.5 Mcg Inhaler] 2 puff INHALATION RT-BID@0800,1700 Albuterol Inhaler [Ventolin Hfa Inhaler] 1 puff INHALATION RT-QID PRN PRN Reason: Shortness Of Breath Nitroglycerin Sl Tabs [Nitrostat] 0.4 mg SUBLINGUAL Q5M PRN #20 tab PRN Reason: Chest Pain Ipratropium-Albuterol Nebulize [Duoneb 0.5 mg-3 mg/3 ml Soln] 3 ml INHALATION RT-Q4H #300 ml hydrALAZINE HCL [Apresoline] 50 mg PO TID@0800,1200,1700 carvediloL [Coreg*] 12.5 mg PO BID@0800,1700 Isosorbide Mononitrate ER [Imdur] 30 mg PO DAILY@0800 Atorvastatin [Lipitor] 20 mg PO HS@2100 Aspirin 81 mg PO DAILY@0800 Amiodarone [Cordarone] 200 mg PO BID@0800,1700 30 Days #60 tab Losartan [Cozaar] 25 mg PO DAILY@0800 30 Days #30 tab QUEtiapine [SEROquel] 100 mg PO DAILY@0800 30 Days #30 tab Discontinued Amitriptyline HCl [Elavil] 100 mg PO HS@2100 Furosemide [Lasix] 40 mg PO DAILY@0800 Discharge Medication List Cholecalciferol [Vitamin D3 (25 Mcg = 1000 Iu)] 1,000 unit PO DAILY@1700 06/04/16 [History] Mirtazapine [Remeron] 45 mg PO HS@2100 06/04/16 [History] Tamsulosin [Flomax] 0.4 mg PO DAILY@0800 07/29/16 [History] Albuterol Inhaler [Ventolin Hfa Inhaler] 1 puff INHALATION RT-QID PRN 06/08/20 [ History] Budesonide/Formoterol Fumarate [Symbicort 160-4.5 Mcg Inhaler] 2 puff INHALATION RT-BID@0800,1700 06/08/20 [History] Docusate [Colace] 200 mg PO DAILY@0600 06/08/20 [History] Famotidine [Pepcid] 20 mg PO BID PRN 06/08/20 [History] Melatonin 3 mg PO HS@209906/08/20 [History] Multivitamins, Thera [Multivitamin (formulary)] 1 tab PO DAILY@169906/08/20 [History] Ipratropium-Albuterol Nebulize [Duoneb 0.5 mg-3 mg/3 ml Soln] 3 ml INHALATION RT-Q4H #300 ml 09/09/20 [Rx] Nitroglycerin Sl Tabs [Nitrostat] 0.4 mg SUBLINGUAL Q5M PRN #20 tab 09/09/20 [Rx] Aspirin 81 mg PO DAILY@0800 10/21/20 [History] Atorvastatin [Lipitor] 20 mg PO HS@209910/21/20 [History] Isosorbide Mononitrate ER [Imdur] 30 mg PO DAILY@0810/21/20 [History] carvediloL [Coreg*] 12.5 mg PO BID@0800,1700 10/21/20 [History] hydrALAZINE HCL [Apresoline] 50 mg PO TID@0800,1200,1700 10/21/20 [History] Amiodarone [Cordarone] 200 mg PO BID@0800,1700 30 Days #60 tab 11/04/20 [Rx] Furosemide [Lasix] 60 mg PO DAILY 30 Days #90 tab 11/04/20 [Rx] Losartan [Cozaar] 25 mg PO DAILY@0800 30 Days #30 tab 11/04/20 [Rx] QUEtiapine [SEROquel] 100 mg PO DAILY@0800 30 Days #30 tab 11/04/20 [Rx] Follow up Appointment(s)/Referral(s): Rashad Cardoso MD [STAFF PHYSICIAN] - 11/11/20 2:15 pm (Patient already has followup ) Hermann Rebolledo MD [STAFF PHYSICIAN] - (Patient would like to follow up with [facility] he will schedule the appointment. ) Patient Instructions/Handouts: Hypertensive Crisis (GEN) Activity/Diet/Wound Care/Special Instructions: Activity Limited until follow-up Follow with primary care provider upon discharge Follow-up with cardiology in the outpatient setting Continue with cardiac heart healthy diet Please follow up with [place] about medication reimbursement process for any future admissions. Discharge Disposition: HOME SELF-CARE
== END 2020-11-04 15:38 | disposition home or self-care (01) | DRG 291 ==
LOC: EC 06:17 → 3SCARD 07:57
PROVIDERS: ADMIT Internal Medicine; ATTEND Internal Medicine
DX: I13.0 Hypertensive heart and chronic kidney disease with heart failure and stage 1 through stage 4 chronic kidney disease, or unspecified chronic kidney disease (principal); I50.23 Acute on chronic systolic (congestive) heart failure; J96.21 Acute and chronic respiratory failure with hypoxia; N18.4 Chronic kidney disease, stage 4 (severe); J44.1 Chronic obstructive pulmonary disease with (acute) exacerbation; I16.1 Hypertensive emergency; N40.0 Benign prostatic hyperplasia without lower urinary tract symptoms; E78.5 Hyperlipidemia, unspecified; F32.9 Major depressive disorder, single episode, unspecified; F41.9 Anxiety disorder, unspecified; Z20.828 Contact with and (suspected) exposure to other viral communicable diseases; G25.81 Restless legs syndrome; K21.9 Gastro-esophageal reflux disease without esophagitis; I42.9 Cardiomyopathy, unspecified; R56.9 Unspecified convulsions; Z87.891 Personal history of nicotine dependence; Z86.74 Personal history of sudden cardiac arrest; Z91.11 Patient's noncompliance with dietary regimen; Z85.038 Personal history of other malignant neoplasm of large intestine; Z82.5 Family history of asthma and other chronic lower respiratory diseases; Z82.41 Family history of sudden cardiac death; Z79.899 Other long term (current) drug therapy; Z79.82 Long term (current) use of aspirin; Z79.51 Long term (current) use of inhaled steroids; Z88.8 Allergy status to other drugs, medicaments and biological substances; Z88.5 Allergy status to narcotic agent; Z90.49 Acquired absence of other specified parts of digestive tract; Z98.890 Other specified postprocedural states; Z98.1 Arthrodesis status; Z80.3 Family history of malignant neoplasm of breast; Z82.49 Family history of ischemic heart disease and other diseases of the circulatory system
CPT/HCPCS: 36415; 71046; 80048; 80053; 83605; 83880; 84484; 85025; 85610; 85730; 87635; 93005; 94640; 94760; 96365; 96366; 96375; 99291

== ENCOUNTER 2021-06-24 15:59 | Observation (INO) | payer OTHER ==
[2021-06-24] MEDS ORDERED: SODIUM CHLORIDE 0.9% 1,000 ML IV STA (17:05)
[2021-06-24 17:50] LABS: Basophils # (A) 0.1 k/uL (0-0.2); Basophils % (A) 1 %; Eosinophils # (A) 0.2 k/uL (0-0.7); Eosinophils % (A) 3 %; HCT 36.5 % (39.0-53.0); HGB 12.3 gm/dL (13.0-17.5); Hypochromasia Slight; Lymphocytes # (A) 1.4 k/uL (1.0-4.8); Lymphocytes % (A) 20 %; MCH 31.9 pg (25.0-35.0); MCHC 33.7 g/dL (31.0-37.0); MCV 94.7 fL (80.0-100.0); Mean Platelet Volume 6.9; Monocytes # (A) 0.4 k/uL (0-1.0); Monocytes % (A) 6 %; Neutrophils # (A) 4.7 k/uL (1.3-7.7); Neutrophils % (A) 67 %; Platelet Count 267 k/uL (150-450); RBC 3.85 m/uL (4.30-5.90); RDW 15.5 % (11.5-15.5)
[2021-06-24 18:02] LABS: Albumin 4.3 g/dL (3.5-5.0); Calcium 9.2 mg/dL (8.4-10.2); Potassium 3.9 mmol/L (3.5-5.1); Total Bilirubin 0.2 mg/dL (0.2-1.3); Total Protein 6.9 g/dL (6.3-8.2)
[2021-06-24] MEDS ORDERED: cloNIDine HCL 0.2 MG TAB PO STA (18:42)
--- NOTE | 2021-06-24 18:44 | ED ---
General Adult HPI - General Chief complaint: Nausea/Vomiting/Diarrhea Stated complaint: NVD high blood pressure Time Seen by Provider: 06/24/21 17:03 Source: patient Mode of arrival: ambulatory Limitations: no limitations - History of Present Illness Initial comments: Rey Hardy" is a 71-year-old gentleman with a history of hypertension, COPD previous admissions the hospital for hypertensive emergency. The patient presents to ER today for evaluation of 3 days of nausea and vomiting and not being able to keep down any of his oral antihypertensives. Patient saw his primary care today and was noted be per family hypertensive and was advised to c ome to the emergency department for treatment. Patient denies any area and he states he feels like he is just nervous about having a doctor's appointment as it has been his goal to avoid doctors and h ospitalizations for the year. Upon further questioning patient states that he previously stopped taking his Lasix because he thought it was contributing to him being unable to gain weight. He states that taking all of his multiple medications causes him to have nausea and occasionally vomiting up his medications. He's had trouble with weight gain over the past couple of months. He saw his primary care today who was concerned about his high blood pressure he did admit that he has not been able to hold down his medications for a few days and addition he has white coat hypertension. - Related Data Home Medications Medication Instructions Recorded Confirmed Cholecalciferol [Vitamin D3 (25 1,000 unit PO DAILY@1700 06/04/16 11/02/20 Mcg = 1000 Iu)] Mirtazapine [Remeron] 45 mg PO HS@2100 06/04/16 11/02/20 Tamsulosin [Flomax] 0.4 mg PO DAILY@0800 06/04/16 11/02/20 Albuterol Inhaler [Ventolin Hfa 1 puff INHALATION RT-QID PRN 06/08/20 11/02/20 Inhaler] Budesonide/Formoterol Fumarate 2 puff INHALATION RT-BID@0800,1700 06/08/20 11/02/20 [Symbicort 160-4.5 Mcg Inhaler] Docusate [Colace] 200 mg PO DAILY@0600 06/08/20 11/02/20 Famotidine [Pepcid] 20 mg PO BID PRN 06/08/20 11/02/20 Melatonin 3 mg PO HS@2100 06/08/20 11/02/20 Multivitamins, Thera [Multivitamin 1 tab PO DAILY@1700 06/08/20 11/02/20 (formulary)] Aspirin 81 mg PO DAILY@0800 10/21/20 11/02/20 Atorvastatin [Lipitor] 20 mg PO HS@2100 10/21/20 11/02/20 Isosorbide Mononitrate ER [Imdur] 30 mg PO DAILY@0800 10/21/20 11/02/20 carvediloL [Coreg*] 12.5 mg PO BID@0800,1700 10/21/20 11/02/20 hydrALAZINE HCL [Apresoline] 50 mg PO TID@0800,1200,1700 10/21/20 11/02/20 Previous Rx's Medication Instructions Recorded Ipratropium-Albuterol Nebulize 3 ml INHALATION RT-Q4H #300 ml 09/09/20 [Duoneb 0.5 mg-3 mg/3 ml Soln] Nitroglycerin Sl Tabs [Nitrostat] 0.4 mg SUBLINGUAL Q5M PRN #20 tab 09/09/20 Amiodarone [Cordarone] 200 mg PO BID@0800,1700 30 Days 11/04/20 #60 tab Furosemide [Lasix] 60 mg PO DAILY 30 Days #90 tab 11/04/20 Losartan [Cozaar] 25 mg PO DAILY@0800 30 Days #30 tab 11/04/20 QUEtiapine [SEROquel] 100 mg PO DAILY@0800 30 Days #30 11/04/20 tab Allergies Allergy/AdvReac Type Severity Reaction Status Date / Time lisinopril Allergy swollen Verified 06/24/21 16:24 testicle,rash morphine AdvReac Nausea & Verified 06/24/21 16:24 Vomiting Review of Systems ROS Statement: Those systems with pertinent positive or pertinent negative responses have been documented in the HPI. ROS Other: All systems not noted in ROS Statement are negative. Past Medical History Past Medical History: Cancer, Heart Failure, COPD, GERD/Reflux, Hyperlipidemia, Hypertension, Prostate Disorder Additional Past Medical History / Comment(s): cancerous polyp,enlarged prostate,HEMORRHOIDS, BLOOD IN STOOL, RESTLESS LEG - intermittent, colon Cancer, cardiac arrest in September 2020 History of Any Multi-Drug Resistant Organisms: None Reported Past Surgical History: Appendectomy, Orthopedic Surgery Additional Past Surgical History / Comment(s): ACL SX RT KNEE X3, LEFT HEEL FUSION, LEFT ARM BICEP SX, NASAL SX R/T ULCER, colon resection, COLONOSCOPY, Past Anesthesia/Blood Transfusion Reactions: No Reported Reaction Past Psychological History: Anxiety, Depression Smoking Status: Current every day smoker Past Alcohol Use History: None Reported Past Drug Use History: None Reported - Past Family History Mother Family Medical History: Cancer Additional Family Medical History / Comment(s): BREAST Sister(s) Family Medical History: Deep Vein Thrombosis (DVT) Father Family Medical History: COPD Additional Family Medical History / Comment(s): FROM CARDIAC ARREST General Exam - General Exam Comments Initial Comments: Physical Exam GENERAL: Chronically ill-appearing Patient is well-developed and well-nourished. Patient is nontoxic and well-hydrated and is in no distress. HENT: Normocephalic, Atraumatic. EYES: PERRL, EOMI PULMONARY: Unlabored respirations. CARDIOVASCULAR: RRR Warm and well perfused extremities No clubbing of the fingers ABDOMEN: Non-distended SKIN: No rashes or bruising : Deferred NEUROLOGIC: Alert and oriented Normal speech Normal gait MUSCULOSKELETAL: Moving all extremities with no apparent injury PSYCHIATRIC: No SI/HI Limitations: no limitations Course Vital Signs 06/24/21 06/24/21 06/24/21 16:19 17:23 18:00 Temperature 98.3 F Pulse Rate 75 Respiratory 18 18 18 Rate Blood Pressure 221/86 217/107 O2 Sat by Pulse 97 Oximetry 06/24/21 06/24/21 06/24/21 19:00 19:30 20:00 Temperature Pulse Rate 75 78 Respiratory 18 18 18 Rate Blood Pressure 219/98 215/94 206/87 O2 Sat by Pulse 96 97 Oximetry 06/24/21 06/24/21 22:00 23:16 Temperature Pulse Rate 74 78 Respiratory 18 18 Rate Blood Pressure 183/86 197/84 O2 Sat by Pulse 97 97 Oximetry Medical Decision Making - Medical Decision Making Patient was seen and evaluated history is obtained from patient, initially patient just that he had nausea and vomiting for 3 days haven't been able to tolerate his medications, labs are obtained IV fluids were given for possible dehydration, despite this patient was noted to remain profoundly hypertensive, clonidine was ordered patient's blood pressure only improved mildly, his home medications were ordered and administered had mild transient improvement in his blood pressure was systolic still remaining in the 180s. Upon further discussion patient states that he's had a lot of nausea and vomiting decreased o ral intake noncompliance with medications he stopped taking his Lasix due to not gaining weight. Given patient's history is concerned the patient could have some gut ischemia chronic mesenteric ischemia resulting in weight loss and food intolerance. In addition patient remains hypertensive I do feel he would benefit from admission hospital reevaluation of his antihypertensives. Patient agreeable to admission. - Lab Data Result diagrams: 06/24/21 17:39 06/24/21 17:39 Lab Results 06/24/21 06/24/21 06/24/21 Range/Units 17:39 17:39 17:39 WBC 7.0 (3.8-10.6) k/uL RBC 3.85 L (4.30-5.90) m/uL Hgb 12.3 L (13.0-17.5) gm/dL Hct 36.5 L (39.0-53.0) % MCV 94.7 (80.0-100.0) fL MCH 31.9 (25.0-35.0) pg MCHC 33.7 (31.0-37.0) g/dL RDW 15.5 (11.5-15.5) % Plt Count 267 (150-450) k/uL MPV 6.9 Neutrophils % 67 % Lymphocytes % 20 % Monocytes % 6 % Eosinophils % 3 % Basophils % 1 % Neutrophils # 4.7 (1.3-7.7) k/uL Lymphocytes # 1.4 (1.0-4.8) k/uL Monocytes # 0.4 (0-1.0) k/uL Eosinophils # 0.2 (0-0.7) k/uL Basophils # 0.1 (0-0.2) k/uL Hypochromasia Slight Sodium 138 (137-145) mmol/L Potassium 3.9 (3.5-5.1) mmol/L Chloride 108 H (98-107) mmol/L Carbon Dioxide 20 L (22-30) mmol/L Anion Gap 10 mmol/L BUN 20 (9-20) mg/dL Creatinine 2.95 H (0.66-1.25) mg/dL Est GFR (CKD-EPI)AfAm 24 (>60 ml/min/1.73 sqM) Est GFR (CKD-EPI)NonAf 21 (>60 ml/min/1.73 sqM) Glucose 109 H (74-99) mg/dL Calcium 9.2 (8.4-10.2) mg/dL Total Bilirubin 0.2 (0.2-1.3) mg/dL AST 27 (17-59) U/L ALT 19 (4-49) U/L Alkaline Phosphatase 74 (38-126) U/L Troponin I <0.012 (0.000-0.034) ng/mL NT-Pro-B Natriuret Pep pg/mL Total Protein 6.9 (6.3-8.2) g/dL Albumin 4.3 (3.5-5.0) g/dL Lipase 175 (23-300) U/L 06/24/21 Range/Units 17:39 WBC (3.8-10.6) k/uL RBC (4.30-5.90) m/uL Hgb (13.0-17.5) gm/dL Hct (39.0-53.0) % MCV (80.0-100.0) fL MCH (25.0-35.0) pg MCHC (31.0-37.0) g/dL RDW (11.5-15.5) % Plt Count (150-450) k/uL MPV Neutrophils % % Lymphocytes % % Monocytes % % Eosinophils % % Basophils % % Neutrophils # (1.3-7.7) k/uL Lymphocytes # (1.0-4.8) k/uL Monocytes # (0-1.0) k/uL Eosinophils # (0-0.7) k/uL Basophils # (0-0.2) k/uL Hypochromasia Sodium (137-145) mmol/L Potassium (3.5-5.1) mmol/L Chloride (98-107) mmol/L Carbon Dioxide (22-30) mmol/L Anion Gap mmol/L BUN (9-20) mg/dL Creatinine (0.66-1.25) mg/dL Est GFR (CKD-EPI)AfAm (>60 ml/min/1.73 sqM) Est GFR (CKD-EPI)NonAf (>60 ml/min/1.73 sqM) Glucose (74-99) mg/dL Calcium (8.4-10.2) mg/dL Total Bilirubin (0.2-1.3) mg/dL AST (17-59) U/L ALT (4-49) U/L Alkaline Phosphatase (38-126) U/L Troponin I (0.000-0.034) ng/mL NT-Pro-B Natriuret Pep 7940 pg/mL Total Protein (6.3-8.2) g/dL Albumin (3.5-5.0) g/dL Lipase (23-300) U/L Disposition Clinical Impression: Hypertensive emergency, Acute kidney injury, Congestive heart failure Disposition: ADMITTED IP TO THIS HOSP Condition: Serious Referrals: Eran Rebolledo [Primary Care Provider] - 1-2 days
[2021-06-24] MEDS ORDERED: carvediloL 12.5 MG TAB PO STA (20:40)
[2021-06-24] MEDS ORDERED: hydrALAZINE HCL 50 MG TAB PO STA (20:41)
[2021-06-24] MEDS ORDERED: LOSARTAN 25 MG TAB PO STA (20:42)
[2021-06-24] MEDS ORDERED: ISOSORBIDE MONONITRATE ER 30 MG TAB.ER.24H PO STA (20:42)
[2021-06-24] MEDS: FUROSEMIDE 20 MG TAB PO SCH (20:50)
[2021-06-24] MEDS ORDERED: hydrALAZINE HCL 20 MG/ML 1 ML VIAL IVP STA (23:21)
[2021-06-24] MEDS ORDERED: NALOXONE 0.4 MG/ML 1 ML VIAL IV PRN (23:36)
[2021-06-25] MEDS ORDERED: FAMOTIDINE 20 MG TAB PO PRN ×2 (02:41→14:15)
[2021-06-25] MEDS ORDERED: IPRATROPIUM-ALBUTEROL 3 ML NEB INHALATION PRN (02:41)
--- NOTE | 2021-06-25 02:44 | P.HPIM ---
History of Present Illness H&P Date: 06/25/21 This is a 71-year-old male with an extensive PMH including severe systolic CHF, hypertension, COPD, hyperlipidemia who presented to the emergency room with complaints of nausea and vomiting. Patient notes that over the past 1 week, he has not been able to keep down any of his oral medications as he has severe nausea and throws up essentially everything. He notes that he has been gradually losing weight due to anorexia, which prompted him to stop his Lasix as he felt it was contributing to his weight loss. He notes that his blood pressure at home has been persistently elevated itches also alarming to him, for which she decided to come to the emergency room. He notes that he is unable to keep down most solid food especially his medications when she throws up immediately after taking them orally. Upon presentation to the emergency room, the patient's BP was 221/86, pulse 75, SpO2 97% on room air, with temp 98.3F. Laboratory evaluation was remarkable for creatinine of 2.95, up from baseline of 2.08 fom 8 months ago. ProBNP was 7940 and troponin less than 0.012. Review of systems: Pertinent positives and negatives as discussed in HPI, a complete review of systems was performed and all other systems are negative. Physical examination: General: non toxic, no distress, appears at stated age, normal weight Derm: no unusual rashes/lesions no unusual ecchymoses, warm, dry Head: atraumatic, normocephalic, symmetric Eyes: EOMI, no lid lag, anicteric sclera, pupils equal round reactive to light ENT: Nose and ears atraumatic, no thrush, no pharyngeal erythema Neck: No thyromegaly, no cervical lymphadenopathy, trachea midline, supple Mouth: no lip lesion, mucus membranes moist Cardiovascular: S1S2 reg, no murmur, positive posterior tibial pulse bilateral, no edema, capillary refill less than 2 seconds Lungs: CTA bilateral, no rhonchi, no rales , no accessory muscle use Abdominal: soft, nontender to palpation, no guarding, no appreciable organomegaly, normal bowel sounds Ext: no gross muscle atrophy, muscle strength 5 out of 5 in all 4 extremities grossly, no contractures, Neuro: CN II-XI grossly intact, light touch intact all 4 extremities, finger to nose within normal limits, Psych: Alert, oriented, appropriate affect Assessment/plan Hypertensive emergency -The patient has not had further vomiting episodes since presentation to the emergency room -Continue with oral antihypertensives at this time -Anti-emetics Kidney injury, acute versus chronic -Continue to monitor BMP for now Chronic conditions: CHF, COPD, hyperlipidemia -Continue with home meds DVT prophylaxis -Heparin subq The patient is admitted with an anticipated less than 2 midnight stay for evaluation of htn emergency CODE STATUS: FUll Code Discussed with: Patient Anticipated discharge date: in am Anticipated discharge place: Home Past Medical History Past Medical History: Cancer, Heart Failure, COPD, GERD/Reflux, Hyperlipidemia, Hypertension, Prostate Disorder Additional Past Medical History / Comment(s): cancerous polyp,enlarged prostate,HEMORRHOIDS, BLOOD IN STOOL, RESTLESS LEG - intermittent, colon Cancer, cardiac arrest in September 2020 History of Any Multi-Drug Resistant Organisms: None Reported Past Surgical History: Appendectomy, Orthopedic Surgery Additional Past Surgical History / Comment(s): ACL SX RT KNEE X3, LEFT HEEL FUSION, LEFT ARM BICEP SX, NASAL SX R/T ULCER, colon resection, COLONOSCOPY, Past Anesthesia/Blood Transfusion Reactions: No Reported Reaction Past Psychological History: Anxiety, Depression Smoking Status: Current every day smoker Past Alcohol Use History: None Reported Past Drug Use History: None Reported - Past Family History Mother Family Medical History: Cancer Additional Family Medical History / Comment(s): BREAST Sister(s) Family Medical History: Deep Vein Thrombosis (DVT) Father Family Medical History: COPD Additional Family Medical History / Comment(s): FROM CARDIAC ARREST Medications and Allergies Home Medications Medication Instructions Recorded Confirmed Type Mirtazapine [Remeron] 45 mg PO HS 06/04/16 06/25/21 History Tamsulosin [Flomax] 0.4 mg PO DAILY 06/04/16 06/25/21 History Budesonide/Formoterol Fumarate 2 puff INHALATION RT-BID 06/08/20 06/25/21 History [Symbicort 160-4.5 Mcg Inhaler] Docusate [Colace] 200 mg PO DAILY 06/08/20 06/25/21 History Famotidine [Pepcid] 20 mg PO BID PRN 06/08/20 06/25/21 History Melatonin 3 mg PO HS 06/08/20 06/25/21 History Multivitamins, Thera [Multivitamin 1 tab PO DAILY 06/08/20 06/25/21 History (formulary)] Isosorbide Mononitrate ER [Imdur] 30 mg PO DAILY 10/21/20 06/25/21 History carvediloL [Coreg*] 12.5 mg PO BID 10/21/20 06/25/21 History hydrALAZINE HCL [Apresoline] 50 mg PO TID 10/21/20 06/25/21 History Aspirin EC [Ecotrin Low Dose] 81 mg PO DAILY 06/24/21 06/25/21 History Atorvastatin Calcium [Lipitor] 20 mg PO HS 06/24/21 06/25/21 History Losartan [Cozaar] 50 mg PO DAILY 06/24/21 06/25/21 History Amiodarone [Cordarone] 200 mg PO BID 06/25/21 06/25/21 History Ipratropium-Albuterol Nebulize 3 ml INHALATION RT-Q4H PRN 06/25/21 06/25/21 History [Duoneb 0.5 mg-3 mg/3 ml Soln] Nitroglycerin Sl Tabs [Nitrostat] 0.4 mg SL Q5M PRN 06/25/21 06/25/21 History QUEtiapine [SEROquel] 100 mg PO HS 06/25/21 06/25/21 History Allergies Allergy/AdvReac Type Severity Reaction Status Date / Time lisinopril Allergy swollen Verified 06/24/21 23:55 testicle,rash morphine AdvReac Nausea & Verified 06/24/21 23:55 Vomiting Physical Exam Vitals: Vital Signs Temp Pulse Resp BP Pulse Ox 06/25/21 02:00 76 18 195/90 97 06/24/21 23:43 196/93 97 06/24/21 23:16 78 18 197/84 97 06/24/21 22:00 74 18 183/86 97 06/24/21 20:00 78 18 206/87 97 06/24/21 19:30 75 18 215/94 96 06/24/21 19:00 18 219/98 06/24/21 18:00 18 06/24/21 17:23 18 217/107 06/24/21 16:19 98.3 F 75 18 221/86 97 Intake and Output 06/24/21 06/24/21 06/25/21 14:59 22:59 06:59 Other: Weight 57.153 kg Results CBC & Chem 7: 06/24/21 17:39 06/24/21 17:39 Labs: Abnormal Lab Results - Last 24 Hours (Table) 06/24/21 06/24/21 Range/Units 17:39 17:39 RBC 3.85 L (4.30-5.90) m/uL Hgb 12.3 L (13.0-17.5) gm/dL Hct 36.5 L (39.0-53.0) % Chloride 108 H (98-107) mmol/L Carbon Dioxide 20 L (22-30) mmol/L Creatinine 2.95 H (0.66-1.25) mg/dL Glucose 109 H (74-99) mg/dL
[2021-06-25] MEDS ORDERED: LORazepam 1 MG TAB PO STA (04:38)
[2021-06-25] MEDS: ISOSORBIDE MONONITRATE ER 30 MG TAB.ER.24H PO SCH (08:02)
[2021-06-25] MEDS: TAMSULOSIN 0.4 MG CAP.ER.24H PO SCH (08:02)
[2021-06-25] MEDS: carvediloL 12.5 MG TAB PO SCH ×2 (08:03→16:55)
[2021-06-25] MEDS: LOSARTAN 50 MG TAB PO SCH (08:03)
[2021-06-25] MEDS: FUROSEMIDE 20 MG TAB PO SCH (08:03)
[2021-06-25] MEDS: ASPIRIN 81 MG PO SCH (08:04)
[2021-06-25] MEDS: HEPARIN SODIUM,PORCINE/PF 5,000 UNIT/0.5 ML SYRINGE SQ SCH ×3 (08:04→23:42)
[2021-06-25] MEDS ORDERED: hydrALAZINE HCL 50 MG TAB PO SCH (09:00)
[2021-06-25] MEDS ORDERED: AMIODARONE 200 MG TAB PO SCH (09:00)
[2021-06-25 09:20] LABS: African American GFR (CKD) 24.5 (60.0-200.0); BUN/Creat Ratio 6.55 Ratio (12.00-20.00); Calcium 9.2 mg/dL (8.7-10.3); Non-African American GFR(CKD) 21.1 (60.0-200.0); Potassium 3.8 mmol/L (3.5-5.5)
--- NOTE | 2021-06-25 09:48 | P.CRDCN ---
History of Present Illness History of present illness: HISTORY OF PRESENTING ILLNESS This is a pleasant 71-year-old male past medical history significant for mild nonobstructive CAD, nonischemic cardiomyopathy, chronic kidney disease, seizure disorder, hypertension, dyslipidemia, chronic tobacco use, history of colon cancer s/p right hemicolectomy in 2017, history of cardiac arrest with ventricular tachycardia in 09/2020. He follows in the office with Dr. Cardoso. We have been asked to see in consultation for hypertensive urgency. Patient states that over the past 2-3 months he has been experiencing decreased appetite, and unintentional weight loss. He states ever since 09/2020 when he was hospitalized he has never felt better. What made him present to the emergency department he states that over 2 weeks, he has been experience severe nausea and vomiting. He has not been able to keep down any of his oral medications. Has not been taking his anti-hypertensives. He notes that he has been gradually losing weight due to anorexia since Fall 2019, he states he has lost about 40+ pounds since then. He does endorse some abdominal discomfort and that his abdomen is sensitive. He denies chest pain, palpitations, lightheadedness, dizziness, syncope. He does occasionally have exertional shortness of breath. Denies symptoms of orthopnea or PND. He is current every day smoker, smokes 1PPD. On admission patient's blood pressure elevated at 221/86 HR 75. Patient given clonidine 0.2 mg, carvedilol 12.5 mg, hydralazine 50 mg, and hydralazine 20 mg IV push, Imdur 30 mg, and Ativan 1 mg by mouth, losartan 25 mg. This morning patient started on his home medication and BP improved to 158/76 HR 76. DIAGNOSTICS Most recent cardiac catheterization 09/08/2020 revealed mild to moderate nonobstructive coronary artery disease involving the mid LAD. Elevated LV EDP. Nonischemic cardiomyopathy. Severe disease involving the right external iliac artery. Most recent echocardiogram 10/28/2020 in the office revealed LV moderately decreased function with EF 40%, mild to moderate mitral regurgitation, mild tricuspid regurgitation. Laboratory reviewed, WBC 7.0, hemoglobin 12.3, platelets 267, sodium 141, potassium 3.8, BUN 19, serum creatinine 2.9, proBNP 7940 (previously 84454), troponin negative x 1. Current cardiac medications include aspirin 81 mg daily, atorvastatin 20 mg daily, carvedilol 12.5 mg twice a day, Lasix 60 mg daily, hydralazine 50 mg TID, losartan 50 mg daily, amiodarone 200 mg twice daily REVIEW OF SYSTEMS At the time of my exam: CONSTITUTIONAL: Denies fever or chills. +unintentional weight loss CARDIOVASCULAR: Denies chest pain, shortness of breath, orthopnea, PND or palpitations. RESPIRATORY: Denies cough. GASTROINTESTINAL: Positive abdominal pain, positive nausea, positive vomiting Denies diarrhea, MUSCULOSKELETAL: Denies myalgias. NEUROLOGIC: Denies numbness, tingling, headacbe or weakness. ENDOCRINE: Denies fatigue, weight change, polydipsia or polyurina. GENITOURINARY: Denies burning, hematuria or urgency with micturation. HEMATOLOGIC: +history of anemia Denies bleeding. PHYSICAL EXAMINATION Blood pressure 158/76 heart rate 76 afebrile and maintaining oxygen saturation on room air. CONSTITUTIONAL: No apparent distress. HEENT: Head is normocephalic. Pupils are equal, round. Sclerae anicteric. Mucous membranes of the mouth are moist. No JVD. No carotid bruit. CHEST EXAMINATION: Lungs are clear to auscultation. No chest wall tenderness is noted on palpation or with deep breathing. HEART EXAMINATION: Regular rate and rhythm. S1, S2 heard.Systolic murmur at the apex, no gallops or rubs ABDOMEN: Soft, slightly tender to palpation. Positive bowel sounds. EXTREMITIES: 2+ peripheral pulses, no lower extremity edema and no calf tenderness. NEUROLOGIC EXAMINATION: Patient is awake, alert and oriented x3. ASSESSMENT Hypertensive Urgency - improving Weight loss Nausea, vomiting Decreased appetite Mild nonobstructive CAD Nonischemic cardiomyopathy, EF 40% Chronic kidney disease History of hypertension Dyslipidemia Chronic tobacco use History of colon cancer s/p right hemicolectomy in 2017 History of cardiac arrest with ventricular tachycardia in 09/2020 PLAN Continue current cardiac medications, aspirin 81 mg daily, atorvastatin 20 mg daily, carvedilol 12.5 mg twice a day, Lasix 60 mg daily, hydralazine 50 mg daily, Imdur, losartan 50 mg daily Decrease amiodarone to 200mg BID Continue to monitor renal function and electrolytes Limited echocardiogram ordered to assess LV function Further recommendations based on clinical course Follow up as an outpatient with Dr. Cardoso on discharge Nurse Practitioner note has been reviewed, I agree with a documented findings an d plan of care. Patient was seen and examined. Past Medical History Past Medical History: Cancer, Heart Failure, COPD, GERD/Reflux, Hyperlipidemia, Hypertension, Prostate Disorder Additional Past Medical History / Comment(s): cancerous polyp,enlarged prostate,HEMORRHOIDS, BLOOD IN STOOL, RESTLESS LEG - intermittent, colon Cancer, cardiac arrest in September 2020 History of Any Multi-Drug Resistant Organisms: None Reported Past Surgical History: Appendectomy, Orthopedic Surgery Additional Past Surgical History / Comment(s): ACL SX RT KNEE X3, LEFT HEEL FUSION, LEFT ARM BICEP SX, NASAL SX R/T ULCER, colon resection, COLONOSCOPY, Past Anesthesia/Blood Transfusion Reactions: No Reported Reaction Past Psychological History: Anxiety, Depression Smoking Status: Current every day smoker Past Alcohol Use History: None Reported Past Drug Use History: None Reported - Past Family History Mother Family Medical History: Cancer Additional Family Medical History / Comment(s): BREAST Sister(s) Family Medical History: Deep Vein Thrombosis (DVT) Father Family Medical History: COPD Additional Family Medical History / Comment(s): FROM CARDIAC ARREST Medications and Allergies Home Medications Medication Instructions Recorded Confirmed Type Mirtazapine [Remeron] 45 mg PO HS 06/04/16 06/25/21 History Tamsulosin [Flomax] 0.4 mg PO DAILY 06/04/16 06/25/21 History Budesonide/Formoterol Fumarate 2 puff INHALATION RT-BID 06/08/20 06/25/21 History [Symbicort 160-4.5 Mcg Inhaler] Docusate [Colace] 200 mg PO DAILY 06/08/20 06/25/21 History Famotidine [Pepcid] 20 mg PO BID PRN 06/08/20 06/25/21 History Melatonin 3 mg PO HS 06/08/20 06/25/21 History Multivitamins, Thera [Multivitamin 1 tab PO DAILY 06/08/20 06/25/21 History (formulary)] Isosorbide Mononitrate ER [Imdur] 30 mg PO DAILY 10/21/20 06/25/21 History carvediloL [Coreg*] 12.5 mg PO BID 10/21/20 06/25/21 History hydrALAZINE HCL [Apresoline] 50 mg PO TID 10/21/20 06/25/21 History Aspirin EC [Ecotrin Low Dose] 81 mg PO DAILY 06/24/21 06/25/21 History Atorvastatin Calcium [Lipitor] 20 mg PO HS 06/24/21 06/25/21 History Losartan [Cozaar] 50 mg PO DAILY 06/24/21 06/25/21 History Amiodarone [Cordarone] 200 mg PO BID 06/25/21 06/25/21 History Ipratropium-Albuterol Nebulize 3 ml INHALATION RT-Q4H PRN 06/25/21 06/25/21 History [Duoneb 0.5 mg-3 mg/3 ml Soln] Nitroglycerin Sl Tabs [Nitrostat] 0.4 mg SL Q5M PRN 06/25/21 06/25/21 History QUEtiapine [SEROquel] 100 mg PO HS 06/25/21 06/25/21 History Allergies Allergy/AdvReac Type Severity Reaction Status Date / Time lisinopril Allergy swollen Verified 06/24/21 23:55 testicle,rash morphine AdvReac Nausea & Verified 06/24/21 23:55 Vomiting Physical Exam Vitals: Vital Signs Temp Pulse Resp BP Pulse Ox 06/25/21 06:09 98.2 F 78 18 181/87 97 06/25/21 04:00 74 18 179/88 97 06/25/21 02:00 76 18 195/90 97 06/24/21 23:43 196/93 97 06/24/21 23:16 78 18 197/84 97 06/24/21 22:00 74 18 183/86 97 06/24/21 20:00 78 18 206/87 97 06/24/21 19:30 75 18 215/94 96 06/24/21 19:00 18 219/98 06/24/21 18:00 18 06/24/21 17:23 18 217/107 06/24/21 16:19 98.3 F 75 18 221/86 97 Intake and Output 06/24/21 06/25/21 06/25/21 22:59 06:59 14:59 Other: Weight 57.153 kg Results 06/24/21 17:39 06/25/21 04:32 Cardiac Enzymes 06/24/21 06/24/21 Range/Units 17:39 17:39 AST 27 (17-59) U/L Troponin I <0.012 (0.000-0.034) ng/mL CBC 06/24/21 Range/Units 17:39 WBC 7.0 (3.8-10.6) k/uL RBC 3.85 L (4.30-5.90) m/uL Hgb 12.3 L (13.0-17.5) gm/dL Hct 36.5 L (39.0-53.0) % Plt Count 267 (150-450) k/uL Comprehensive Metabolic Panel 06/24/21 Range/Units 17:39 Sodium 138 (137-145) mmol/L Potassium 3.9 (3.5-5.1) mmol/L Chloride 108 H (98-107) mmol/L Carbon Dioxide 20 L (22-30) mmol/L BUN 20 (9-20) mg/dL Creatinine 2.95 H (0.66-1.25) mg/dL Glucose 109 H (74-99) mg/dL Calcium 9.2 (8.4-10.2) mg/dL AST 27 (17-59) U/L ALT 19 (4-49) U/L Alkaline Phosphatase 74 (38-126) U/L Total Protein 6.9 (6.3-8.2) g/dL Albumin 4.3 (3.5-5.0) g/dL Current Medications Generic Name Dose Route Start Last Admin Trade Name Freq PRN Reason Stop Dose Admin Albuterol/Ipratropium 3 ml 06/25/21 02:41 Ipratropium-Albuterol 3 Ml Neb INHALATION RT-Q4H PRN Shortness Of Breath Amiodarone HCl 200 mg 06/25/21 09:00 Amiodarone 200 Mg Tab PO BID SUMMER Aspirin 81 mg 06/25/21 09:00 Aspirin 81 Mg PO DAILY [facility] Atorvastatin Calcium 20 mg 06/25/21 21:00 Atorvastatin 40 Mg Tab PO HS [facility]1983 Budesonide/Formoterol Fumarate 2 puff 06/25/21 08:00 Symbicort 160-4.5 Mcg Inhaler INHALATION RT-BID SUMMER Carvedilol 12.5 mg 06/25/21 07:30 Carvedilol 12.5 Mg Tab PO BID-W/MEALS [facility], [facility]1983 Famotidine 20 mg 06/25/21 02:41 Famotidine 20 Mg Tab PO BID PRN Heartburn Furosemide 60 mg 06/24/21 20:45 06/24/21 20:50 Furosemide 20 Mg Tab PO 60 mg DAILY [facility]MER Administration Heparin Sodium (Porcine) 5,000 unit 06/25/21 08:00 Heparin Sodium,Porcine/Pf 5,000 Unit/0.5 Ml Syringe SQ Q8HR [facility] Hydralazine HCl 50 mg 06/25/21 09:00 Hydralazine Hcl 50 Mg Tab PO DAILY [facility]MER Isosorbide Mononitrate 30 mg 06/25/21 09:00 Isosorbide Mononitrate Er 30 Mg Tab.Er.24h PO DAILY [facility]1983 Losartan Potassium 50 mg 06/25/21 09:00 Losartan 50 Mg Tab PO DAILY [facility] Melatonin 3 mg 06/25/21 21:00 Melatonin 3 Mg Tablet PO HS [facility]MER Naloxone HCl 0.2 mg 06/24/21 23:36 Naloxone 0.4 Mg/Ml 1 Ml Vial IV Q2M PRN Opioid Reversal Quetiapine Fumarate 100 mg 06/25/21 21:00 Quetiapine 100 Mg Tab PO HS [facility]MER Tamsulosin HCl 0.4 mg 06/25/21 09:00 Tamsulosin 0.4 Mg Cap.Er.24h PO DAILY [facility]1983 Intake and Output 06/24/21 06/25/21 06/25/21 22:59 06:59 14:59 Other: Weight 57.153 kg 06/24/21 17:39 06/24/21 17:39
[2021-06-25] MEDS: SYMBICORT 160-4.5 MCG INHALER INHALATION SCH ×2 (12:08→20:08)
--- NOTE | 2021-06-25 17:53 | P.PN ---
<Ramon Russell - Last Filed: 06/25/21 17:43> Subjective Progress Note Date: 06/25/21 Hospital course: Patient is a 71-year-old male with a past medical history of CAD with stents, cardiopulmonary arrest with ROSC in 2019, nonischemic cardiomyopathy, severe systolic CHF, hypertension, hyperlipidemia, COPD, nicotine dependence on cigarettes, stage III CKD, and previous colon cancer status post resection in 2019. Patient presented to the emergency department with a chief complaint of nausea and vomiting 1 week with inability to keep his oral medications down. Patient was found to be in hypertensive urgency with a blood pressure of 225/115 resulting in admission under our services with consultation to cardiology. Labs completed in ED reveals CBC to be unremarkable with the exception of normocytic normochromic anemia with hemoglobin of 12.3, BMP consistent with patient's stage III CKG with BUN 20, creatinine 2.95, and GFR of 21 (currently at baseline creatinine), troponin normal findings at less than 0.012, and pro-BMP of 7940. Physical exam: Was seen and fully evaluated at the bedside. He reports that he continues to feel slightly nauseous but denies having any episodes of vomiting since arrival to the emergency department. Blood pressure significantly improved at this time it is 158/76. Patient reports feeling some tenderness to his right left lower quadrants. In addition to right and left lower quadrant pain, nausea, and vomiting, patient also reports a 30 pound weight loss over the past couple months. CT abdomen and pelvis to be completed. Patient denies having any headache, lightheadedness, dizziness, changes in his vision or hearing, chest pain or palpitations, shortness of breath, or any other complaints at this time. Vital signs reviewed and stable. General: Nontoxic, no distress and appears stated age. Derm: Skin warm and dry, normal coloration for ethnicity. Head: Atraumatic, normocephalic and symmetric. Eyes: EOMs intact, no lid lag, and anicteric sclera Mouth: no lip lesions, mucus membranes moist Cardiovascular: regular rate and rhythm with normal S1S2, no murmur, positive posterior tibial pulses bilaterally, and cap refill < 2 seconds. Lungs: Respirations even, regular, and unlabored on room air. Lungs CTA bilaterally, no rhonchi, no rales, no wheezing, and no accessory muscle usage. Abdominal: soft, tenderness upon palpation to right and left lower quadrants. no guarding, no appreciable organomegaly Ext: ROM intact. No gross muscle atrophy, no edema, no contractures. Clubbed fingers. Neuro: Speech clear, face symmetrical and CN II-XII grossly intact with no noted focal neuro deficits Psych: Alert and oriented to person, place, time, and situation. Appropriate and pleasant affect. Assessment and Plan of Care: Hypertensive emergency -Resume home medications including amiodarone, carvedilol, hydralazine, Imdur, and losartan. -Close monitoring of vital signs. -EKG to be completed. -Cardiology following, appreciate recommendations. Intractable nausea and vomiting accompanied by right and left lower quadrant abdominal pain -CT abdomen and pelvis without contrast -Symptomatic care and pain management Stage III CKD -BUN 20, creatinine 2.95, and GFR of 21. This is patient's baseline creatinine levels. -We will continue to monitor with repeat a.m. labs. Hyperlipidemia -Continue daily medication management with atorvastatin 20 mg nightly. Nicotine dependence -Patient was counseled and educated on the importance of smoking cessation and the risks associated with continued use. -Nicotine patch. Additional Past medical history of CAD with stents, cardiopulmonary arrest with ROSC in 2019, nonischemic cardiomyopathy, severe systolic congestive heart failure, and COPD: -Continue daily medication regimen. CODE STATUS: Full code DVT prophylaxis: Heparin Discussed with: Patient and RN Anticipated discharge date: Clinical course to determine Anticipated discharge place: Home A total of 45 minutes was spent on the care of this complex patient more than 50% of the time was spent in counseling and care coordination. Objective - Vital Signs Vital signs: Vital Signs Temp 98.2 F 06/25/21 07:00 Pulse 76 06/25/21 09:02 Resp 12 06/25/21 09:02 BP 158/76 06/25/21 09:02 Pulse Ox 97 06/25/21 09:02 Intake & Output 06/24/21 06/25/21 06/25/21 18:59 06:59 18:59 Weight 57.153 kg - Labs CBC & Chem 7: 06/24/21 17:39 06/25/21 04:32 Labs: Abnormal Lab Results - Last 24 Hours (Table) 06/24/21 06/24/21 06/25/21 Range/Units 17:39 17:39 04:32 RBC 3.85 L (4.30-5.90) m/uL Hgb 12.3 L (13.0-17.5) gm/dL Hct 36.5 L (39.0-53.0) % Chloride 108 H 110 H (98-107) mmol/L Carbon Dioxide 20 L 21.0 L (22-30) mmol/L Creatinine 2.95 H 2.9 H (0.66-1.25) mg/dL Est GFR (CKD-EPI)AfAm 24.5 L (60.0-200.0) Est GFR (CKD-EPI)NonAf 21.1 L (60.0-200.0) BUN/Creatinine Ratio 6.55 L (12.00-20.00) Ratio Glucose 109 H (74-99) mg/dL <Delores Bernard - Last Filed: 06/25/21 18:25> Subjective Ramon Russell NP rendered care for this patient independently, reviewed the findings and plan as documented in the note above. I did not physically speak with or examine the patient on this date. Objective - Vital Signs Vital signs: Vital Signs Temp 98.2 F 06/25/21 15:00 Pulse 84 06/25/21 17:00 Resp 12 06/25/21 17:00 BP 166/81 06/25/21 17:00 Pulse Ox 97 06/25/21 17:00 Intake & Output 06/24/21 06/25/21 06/25/21 18:59 06:59 18:59 Intake Total 120 Output Total 800 300 Balance -680 -300 Weight 57.153 kg 57.153 kg Intake: Oral 120 Output: Urine 800 300 Other: Voiding Method Toilet # Voids 2 - Labs CBC & Chem 7: 06/24/21 17:39 06/25/21 04:32 Labs: Abnormal Lab Results - Last 24 Hours (Table) 06/25/21 Range/Units 04:32 Chloride 110 H (96-109) mmol/L Carbon Dioxide 21.0 L (21.6-31.8) mmol/L Creatinine 2.9 H (0.6-1.5) mg/dL Est GFR (CKD-EPI)AfAm 24.5 L (60.0-200.0) Est GFR (CKD-EPI)NonAf 21.1 L (60.0-200.0) BUN/Creatinine Ratio 6.55 L (12.00-20.00) Ratio
[2021-06-25] MEDS: NICOTINE 21MG/24HR PATCH TRANSDERM SCH (20:17)
[2021-06-25] MEDS ORDERED: ATORVASTATIN 40 MG TAB PO SCH (21:00)
[2021-06-25] MEDS ORDERED: MELATONIN 3 MG TABLET PO SCH (21:00)
[2021-06-25] MEDS: QUEtiapine 100 MG TAB PO SCH (21:19)
--- NOTE | 2021-06-25 22:41 | CT ---
EXAMINATION TYPE: CT abdomen pelvis wo con DATE OF EXAM: 06/25/2021 COMPARISON: 10/09/2016 HISTORY: lower abd tenderness and loss of apatite CT DLP: 494 mGycm Automated exposure control for dose reduction was used. TECHNIQUE: Helical acquisition of images was performed from the lung bases through the pelvis. FINDINGS: LUNG BASES: No significant abnormality is appreciated. LIVER/GB: No significant abnormality is appreciated. PANCREAS: No significant abnormality is seen. SPLEEN: No significant abnormality is seen. ADRENALS: No significant abnormality is seen. KIDNEYS: No significant abnormality is seen. PERITONEAL CAVITY: No peritoneal fluid or pneumoperitoneum. ABDOMINAL ADENOPATHY: None visualized REPRODUCTIVE ORGANS: No significant abnormality is seen URINARY BLADDER: No significant abnormality is seen. PELVIC ADENOPATHY: None visualized. OSSEOUS STRUCTURES: No significant abnormality is seen. BOWEL: No significant abnormality is seen. IMPRESSION: NO ACUTE PROCESS, CT WITHOUT [id number].
[2021-06-26 07:02] LABS: African American GFR (CKD) 22 (>60 ml/min/1.73 sqM); Anion Gap 15 mmol/L; Blood Urea Nitrogen 24 mg/dL (9-20); Calcium 9.6 mg/dL (8.4-10.2); Carbon Dioxide 22 mmol/L (22-30); Chloride 104 mmol/L (98-107); Glucose 94 mg/dL (74-99); Non-African American GFR(CKD) 19 (>60 ml/min/1.73 sqM); Potassium 3.7 mmol/L (3.5-5.1); Sodium 141 mmol/L (137-145)
[2021-06-26] MEDS: SYMBICORT 160-4.5 MCG INHALER INHALATION SCH (07:04)
[2021-06-26] MEDS ORDERED: hydrALAZINE HCL 50 MG TAB PO SCH ×2 (09:00→13:00)
[2021-06-26] MEDS ORDERED: AMIODARONE 200 MG TAB PO SCH (09:00)
[2021-06-26] MEDS: NICOTINE 21MG/24HR PATCH TRANSDERM SCH (09:14)
[2021-06-26] MEDS: carvediloL 12.5 MG TAB PO SCH ×2 (09:18→17:14)
[2021-06-26] MEDS: LOSARTAN 50 MG TAB PO SCH (09:18)
[2021-06-26] MEDS: ASPIRIN 81 MG PO SCH (09:18)
[2021-06-26] MEDS: ISOSORBIDE MONONITRATE ER 30 MG TAB.ER.24H PO SCH (09:18)
[2021-06-26] MEDS: FUROSEMIDE 20 MG TAB PO SCH ×2 (09:19→09:37)
[2021-06-26] MEDS: QUEtiapine 100 MG TAB PO SCH (09:19)
[2021-06-26] MEDS: HEPARIN SODIUM,PORCINE/PF 5,000 UNIT/0.5 ML SYRINGE SQ SCH ×2 (09:23→17:14)
[2021-06-26] MEDS: TAMSULOSIN 0.4 MG CAP.ER.24H PO SCH (09:36)
--- NOTE | 2021-06-26 09:54 | P.DS ---
<Ramon Russell - Last Filed: 06/26/21 10:11> Providers Expected date of discharge: 06/26/21 Hospital Course: Discharge Diagnosis: Hypertensive emergency Intractable nausea and vomiting accompanied by right and left lower quadrant abdominal pain with weight loss Stage III CKD Hyperlipidemia Nicotine dependence History of CAD with stents History of cardiopulmonary arrest with ROSC in 2019 History of nonischemic cardiomyopathy History of severe systolic congestive heart failure COPD Hospital Course: Patient is a 71-year-old male with a past medical history of CAD with stents, cardiopulmonary arrest with ROSC in 2020, nonischemic cardiomyopathy, severe systolic CHF, hypertension, hyperlipidemia, COPD, nicotine dependence on cigarettes, stage III CKD, and previous colon cancer status post resection in 2020. Patient presented to the emergency department with a chief complaint of nausea and vomiting 1 week with inability to keep his oral medications down. Patient was found to be in hypertensive urgency with a blood pressure of 225/115 resulting in admission under our services with consultation to cardiology. Labs completed in ED reveals CBC to be unremarkable with the exception of normocytic normochromic anemia with hemoglobin of 12.3, BMP consistent with patient's stage III CKG with BUN 20, creatinine 2.95, and GFR of 21 (currently at baseline creatinine), troponin normal findings at less than 0.012, and pro-BMP of 7940. Nausea and vomiting subsided. Patient's blood pressure normalized simply with taking his normal daily antihypertensive medication regimen. Patient did have complaint of having abdominal pain/tenderness in his right and left lower quadrants and reported a recent 30 pound weight loss over the past [address] of his abdomen and pelvis was completed which was negative for acute intra- abdominal process. Blood pressure has been stabilized for greater than 24 hours patient denies having any complaints this morning. We had a long discussion about the importance of him following up and make an appointment with for outpatient colonoscopy due to his reports of intermittent abdominal pain/discomfort, nausea, vomiting, and reports of recent 30 pound weight loss with his history of colon cancer. Patient was educated that yes has abdominal CT was negative for any acute abnormalities but he will still need a colonoscopy. Physical exam: Was seen and fully evaluated at the bedside. His condition is stable and blood pressure has been stabilized for greater than 24 hours with just the use of mehran ents normal daily antihypertensive medication regimen. Patient denies having any headache, lightheadedness, dizziness, changes in his vision or hearing, chest pain or palpitations, shortness of breath, or any other complaints at this time. Vital signs reviewed and stable. General: Nontoxic, no distress and appears stated age. Derm: Skin warm and dry, normal coloration for ethnicity. Head: Atraumatic, normocephalic and symmetric. Eyes: EOMs intact, no lid lag, and anicteric sclera Mouth: no lip lesions, mucus membranes moist Cardiovascular: regular rate and rhythm with normal S1S2, no murmur, positive posterior tibial pulses bilaterally, and cap refill < 2 seconds. Lungs: Respirations even, regular, and unlabored on room air. Lungs CTA bilaterally, no rhonchi, no rales, no wheezing, and no accessory muscle usage. Abdominal: soft, tenderness upon palpation to right and left lower quadrants. no guarding, no appreciable organomegaly Ext: ROM intact. No gross muscle atrophy, no edema, no contractures. Clubbed fingers. Neuro: Speech clear, face symmetrical and CN II-XII grossly intact with no noted focal neuro deficits Psych: Alert and oriented to person, place, time, and situation. Appropriate and pleasant affect. A total of 45 minutes of time were spent preparing this complex discharge summary. Patient Condition at Discharge: Stable Plan - Discharge Summary Discharge Rx Participant: Yes New Discharge Prescriptions: New Nicotine 21Mg/24Hr Patch [Habitrol] 1 patch TRANSDERM DAILY #1 box Ondansetron [Zofran ODT] 4 mg PO Q8HR PRN #30 tab PRN Reason: Nausea And Vomiting hydrALAZINE HCL [Apresoline] 50 mg PO QID 30 Days #120 tab Continue Tamsulosin [Flomax] 0.4 mg PO DAILY Mirtazapine [Remeron] 45 mg PO HS Multivitamins, Thera [Multivitamin (formulary)] 1 tab PO DAILY Melatonin 3 mg PO HS Famotidine [Pepcid] 20 mg PO BID PRN PRN Reason: Heartburn Docusate [Colace] 200 mg PO DAILY Budesonide/Formoterol Fumarate [Symbicort 160-4.5 Mcg Inhaler] 2 puff INHALATION RT-BID hydrALAZINE HCL [Apresoline] 50 mg PO TID carvediloL [Coreg*] 12.5 mg PO BID Isosorbide Mononitrate ER [Imdur] 30 mg PO DAILY Aspirin EC [Ecotrin Low Dose] 81 mg PO DAILY Atorvastatin Calcium [Lipitor] 20 mg PO HS Losartan [Cozaar] 50 mg PO DAILY Amiodarone [Cordarone] 200 mg PO BID Ipratropium-Albuterol Nebulize [Duoneb 0.5 mg-3 mg/3 ml Soln] 3 ml INHALATION RT-Q4H PRN PRN Reason: Shortness Of Breath Nitroglycerin Sl Tabs [Nitrostat] 0.4 mg SL Q5M PRN PRN Reason: Chest Pain QUEtiapine [SEROquel] 100 mg PO HS Discharge Medication List Mirtazapine [Remeron] 45 mg PO HS 06/04/16 [History] Tamsulosin [Flomax] 0.4 mg PO DAILY 06/04/16 [History] Budesonide/Formoterol Fumarate [Symbicort 160-4.5 Mcg Inhaler] 2 puff INHALATION RT-BID 06/08/20 [History] Docusate [Colace] 200 mg PO DAILY 06/08/20 [History] Famotidine [Pepcid] 20 mg PO BID PRN 06/08/20 [History] Melatonin 3 mg PO HS 06/08/20 [History] Multivitamins, Thera [Multivitamin (formulary)] 1 tab PO DAILY 06/08/20 [History] Isosorbide Mononitrate ER [Imdur] 30 mg PO DAILY 10/21/20 [History] carvediloL [Coreg*] 12.5 mg PO BID 10/21/20 [History] hydrALAZINE HCL [Apresoline] 50 mg PO TID 10/21/20 [History] Aspirin EC [Ecotrin Low Dose] 81 mg PO DAILY 06/24/21 [History] Atorvastatin Calcium [Lipitor] 20 mg PO HS 06/24/21 [History] Losartan [Cozaar] 50 mg PO DAILY 06/24/21 [History] Amiodarone [Cordarone] 200 mg PO BID 06/25/21 [History] Ipratropium-Albuterol Nebulize [Duoneb 0.5 mg-3 mg/3 ml Soln] 3 ml INHALATION RT-Q4H PRN 06/25/21 [History] Nitroglycerin Sl Tabs [Nitrostat] 0.4 mg SL Q5M PRN 06/25/21 [History] QUEtiapine [SEROquel] 100 mg PO HS 06/25/21 [History] Nicotine 21Mg/24Hr Patch [Habitrol] 1 patch TRANSDERM DAILY #1 box 06/26/21 [Rx] Ondansetron [Zofran ODT] 4 mg PO Q8HR PRN #30 tab 06/26/21 [Rx] hydrALAZINE HCL [Apresoline] 50 mg PO QID 30 Days #120 tab 06/26/21 [Rx] Follow up Appointment(s)/Referral(s): Rashad Cardoso MD [Family Provider] - 1 Week Britni Rodriguez MD [STAFF PHYSICIAN] - 1 Week (very important to call and make appointment with Dr. Rodriguez for outpatient colonoscopy due to reports of abd pain, nausea, vomiting, and weight loss with hx of colon cancer. ) Eran Rebolledo [Primary Care Provider] - 1-2 days Activity/Diet/Wound Care/Special Instructions: Activity: As tolerated Diet: Heart healthy diet Special Instructions: It is very important for you to call and make appointment with Dr. Rodriguez for outpatient colonoscopy due to your reports of intermittent abdominal pain/discomfort, nausea, vomiting, and recent weight loss especially with history of colon cancer. As we discussed your abdominal CT was negative for any acute abnormalities, but the only way to see inside the colon is with a colonoscopy. You have been provided with a prescription for nicotine patches, it is highly recommended for you to stop smoking. Although your nausea and vomiting has subsided, we will be sending you home with zofran which is an antiemetic medication that you may take 15-30 minutes before your daily medications on days that you are feeling nauseas as this may help prevent vomiting and ensure you keep your medications down. Thank you for allowing us to participate in your care, it was truly a pleasure having you for a patient. Discharge Disposition: HOME SELF-CARE <Delores Bernard - Last Filed: 06/26/21 19:17> Providers Date of admission: 06/24/21 23:36 Attending physician: Arsen Christy MD Consults: 06/24/21 23:37 Consult Physician Urgent Consulting Provider: Rashad Cardoso Consult Reason/Comments: hypertensive emergency - established pt Do you want consulting provider notified?: Yes Primary care physician: [facility] Course: Ramon Russell NP rendered care for this patient independently, reviewed the findings and plan as documented in the note above. I did not physically speak with or examine the patient on this date.
[2021-06-26] MEDS ORDERED: ALPRAZolam 1 MG TAB PO STA (12:11)
[2021-06-26 14:19] VITALS: TEMP 98.2
[2021-06-26 15:35] VITALS: BMI 18.3
[2021-06-26 15:43] VITALS: BP 93/54; PULSE 74; RESP 12
== END 2021-06-26 17:58 | disposition home or self-care (01) ==
LOC: EC 15:59 → 6NMEDSUR 23:36
PROVIDERS: ADMIT Internal Medicine; ATTEND Internal Medicine
DX: I16.1 Hypertensive emergency (principal); N17.9 Acute kidney failure, unspecified; R11.2 Nausea with vomiting, unspecified; R10.32 Left lower quadrant pain; I13.0 Hypertensive heart and chronic kidney disease with heart failure and stage 1 through stage 4 chronic kidney disease, or unspecified chronic kidney disease; I50.22 Chronic systolic (congestive) heart failure; N18.30 Chronic kidney disease, stage 3 unspecified; D64.9 Anemia, unspecified; E78.5 Hyperlipidemia, unspecified; J44.9 Chronic obstructive pulmonary disease, unspecified; K21.9 Gastro-esophageal reflux disease without esophagitis; I25.10 Atherosclerotic heart disease of native coronary artery without angina pectoris; I42.8 Other cardiomyopathies; I47.2 Ventricular tachycardia; G25.81 Restless legs syndrome; G40.909 Epilepsy, unspecified, not intractable, without status epilepticus; N40.0 Benign prostatic hyperplasia without lower urinary tract symptoms; Z91.14 Patient's other noncompliance with medication regimen; K64.9 Unspecified hemorrhoids; F32.9 Major depressive disorder, single episode, unspecified; F41.9 Anxiety disorder, unspecified; F17.210 Nicotine dependence, cigarettes, uncomplicated; I08.1 Rheumatic disorders of both mitral and tricuspid valves; R63.0 Anorexia; R63.4 Abnormal weight loss; Z68.1 Body mass index [BMI] 19.9 or less, adult; Z79.51 Long term (current) use of inhaled steroids; Z79.82 Long term (current) use of aspirin; Z79.899 Other long term (current) drug therapy; Z88.5 Allergy status to narcotic agent; Z88.8 Allergy status to other drugs, medicaments and biological substances; Z87.19 Personal history of other diseases of the digestive system; Z98.1 Arthrodesis status; Z90.49 Acquired absence of other specified parts of digestive tract; Z85.038 Personal history of other malignant neoplasm of large intestine; Z98.890 Other specified postprocedural states; Z86.74 Personal history of sudden cardiac arrest; Z95.5 Presence of coronary angioplasty implant and graft; Z71.6 Tobacco abuse counseling; Z82.41 Family history of sudden cardiac death; Z82.5 Family history of asthma and other chronic lower respiratory diseases; Z80.3 Family history of malignant neoplasm of breast; Z82.49 Family history of ischemic heart disease and other diseases of the circulatory system
CPT/HCPCS: 96372 ×2; 96361; 96374; 99284; 36415; 94640 ×2; 93308; 83880; 80053; 80048 ×2; 83690; 84484; 85025; 74176; G0378 ×2; S4990; J0360; J1644 ×2

== ENCOUNTER → 2021-07-17 | Outpatient (CLI) | payer SELFPAY ==
[2021-07-17 16:22] LABS: Appearance,Urine Clear (Clear); Bilirubin,Urine Negative (Negative); Blood,Urine Negative (Negative); Color,Urine Light Yellow; Glucose,Urine (UA) Negative (Negative); Ketones,Urine Negative (Negative); Leukocyte Esterase,Urine Negative (Negative); Nitrite,Urine Negative (Negative); Protein,Urine Negative (Negative); Specific Gravity,Urine 1.005 (1.001-1.035); Urobilinogen,Urine <2.0 mg/dL (<2.0)
[2021-07-17 16:40] LABS: Creatinine,Urine Random 19.3 mg/dL; Protein/Creatinine Ratio,Urine 0.777
[2021-07-17 23:20] LABS: Basophils # (A) 0.07 X 10*3/uL (0.00-0.10); Basophils % (A) 0.9 %; Eosinophils # (A) 0.54 X 10*3/uL (0.04-0.35); Eosinophils % (A) 6.9 %; HCT 28.9 % (39.6-50.0); HGB 9.6 g/dL (13.0-17.0); Lymphocytes # (A) 1.57 X 10*3/uL (0.90-5.00); Lymphocytes % (A) 20.1 %; MCH 30.8 pg (27.0-32.0); MCHC 33.2 g/dL (32.0-37.0); MCV 92.6 fL (80.0-97.0); Mean Platelet Volume 8.9 fL (9.5-12.2); Monocytes # (A) 0.62 X 10*3/uL (0.20-1.00); Monocytes % (A) 7.9 %; Neutrophils % (A) 63.9 %; Platelet Count 358 X 10*3/uL (140-440); RBC 3.12 X 10*6/uL (4.40-5.60); RDW 15.1 % (11.5-14.5); WBC 7.82 X 10*3/uL (4.50-10.00)
[2021-07-18 06:56] LABS: % Iron Saturation 11.9 (15.00-50.00); African American GFR (CKD) 22.6 (60.0-200.0); Anion Gap 6.9 mmol/L (4.00-12.00); BUN/Creat Ratio 10.32 Ratio (12.00-20.00); Calcium 8.7 mg/dL (8.7-10.3); Carbon Dioxide 24.1 mmol/L (21.6-31.8); Magnesium 2.3 mg/dL (1.5-2.4); Non-African American GFR(CKD) 19.5 (60.0-200.0); Uric Acid 9.7 mg/dL (3.7-8.7)
== END | disposition home or self-care (01) ==
LOC: LABWHC1 15:52
PROVIDERS: ATTEND Internal Medicine
DX: N18.4 Chronic kidney disease, stage 4 (severe) (principal); N39.0 Urinary tract infection, site not specified; N25.81 Secondary hyperparathyroidism of renal origin; E55.9 Vitamin D deficiency, unspecified; D64.9 Anemia, unspecified; M10.9 Gout, unspecified
CPT/HCPCS: 36415; 80048; 81003; 82040; 82306; 82570; 82728; 83540; 83550; 83735; 83970; 84100; 84156; 84550; 85025

== ENCOUNTER → 2021-08-24 | Outpatient (CLI) | payer OTHER ==
--- NOTE | 2021-08-24 11:53 | US ---
EXAMINATION TYPE: US kidneys/renal and bladder DATE OF EXAM: 08/24/2021 COMPARISON: 10/06/2020, 06/25/2021 CLINICAL HISTORY: N18.4 chronic kidney stage 4. Macroscopic hematuria EXAM MEASUREMENTS: Right Kidney: 10.2 x 4.5 x 3.8 cm Left Kidney: 6.1 x 2.9 x 4.0 cm Right Kidney: Prominent pyramids Left Kidney: Prominent pyramids. Appears small in size compared to contralateral kidney Bladder: not well distended. Left vascular wall lesions: 1- 1.8 x 1.1 x 1.4 cm 2- 1.2 x 1.3 x 1.0 c m. Small irregularities all seen in right wall. Bilateral Jets not seen There is no evidence for hydronephrosis at this point in time. No nephrolithiasis is seen. IMPRESSION: 1. 2 nodular densities adherent to the urinary bladder wall are nonspecific but worrisome for possibl e neoplasm. A urology referral may be helpful for further evaluation. 2. The left kidney is small in size with cortical thinning. 3. Incidentally noted is a splenic hypoechoic lesion, likely a cyst.
== END | disposition home or self-care (01) ==
LOC: RADUSWWP 10:24
PROVIDERS: ATTEND Internal Medicine Nephrology
DX: N32.89 Other specified disorders of bladder (principal); N18.4 Chronic kidney disease, stage 4 (severe)
CPT/HCPCS: 76770

== ENCOUNTER → 2021-11-02 | Outpatient (CLI) | payer OTHER ==
--- NOTE | 2021-11-02 18:06 | CT ---
EXAMINATION TYPE: CT ChestAbdPelvis wo con DATE OF EXAM: 11/02/2021 COMPARISON: 06/25/[address] CT abdomen pelvis and CT chest 07/07/2020 HISTORY: bladder ca CT DLP: 318.7mGycm Unenhanced CT of the Chest, Abdomen and Pelvis Unenhanced CT of the chest ,abdomen and pelvis is performed. The lack of intravenous contrast limits evaluation of the solid and hollow viscera. Oral contrast: No CT Chest: LUNGS: Pleural-based nodule left upper lobe anteriorly seen best on image 54 1 contracted measures 1. 3 cm versus 1.1 cm previously. No additional nodules seen. There is scattered subpleural fibrosis. Em physematous changes are seen within the upper lobes bilaterally. MEDIASTINUM: Thoracic aorta is of normal caliber. The heart is not enlarged. No evidence for media stinal mass or adenopathy. HILAR STRUCTURES: No evidence for mass. No hilar adenopathy is appreciated. OTHER: No significant abnormality. CONTRAST CT ABDOMEN AND PELVIS: LIVER/GB: No calcified gallstones. No space occupying hepatic lesion. Biliary tree is of normal ca liber. PANCREAS: No inflammation. No distinct mass. SPLEEN: No splenic enlargement. No lesion seen. ADRENALS: No nodule. No thickening. KIDNEYS/BLADDER: No hydronephrosis. No nephrolithiasis. No distinct renal mass. BOWEL: Normal appendix. Normal bowel caliber. No inflammation. GENITAL ORGANS: Prostate gland enlargement noted. LYMPH NODES: No greater than 1cm abdominal or pelvic lymph nodes are appreciated. AORTA: Atheromatous changes of the abdominal aorta without evidence for aneurysm. OSSEOUS STRUCTURES: Degenerative changes L5-S1. OTHER: No significant additional abnormality is seen. IMPRESSION: 1. Pleural-based nodule left upper lobe anteriorly seen best on image 54 1 contracted measures 1.3 cm versus 1.1 cm previously. No additional nodules seen. 2. Otherwise unremarkable unenhanced CT of the chest abdomen pelvis.
== END | disposition home or self-care (01) ==
LOC: RADCTMAIN 17:30
PROVIDERS: ATTEND Urology
DX: C67.9 Malignant neoplasm of bladder, unspecified (principal); R91.1 Solitary pulmonary nodule
CPT/HCPCS: 71250; 74176

== ENCOUNTER → 2022-03-05 | Outpatient (CLI) | payer OTHER ==
--- NOTE | 2022-03-08 10:33 | PE ---
EXAMINATION TYPE: PET CT fusion skull to thigh DATE OF EXAM: 03/05/2022 COMPARISON: Most recent CT November 02, 2021 and older studies. HISTORY: Bladder cancer on recent biopsy one to 2 months ago. TECHNIQUE: Following the intravenous administration of 11.4 mCi of F-18 FDG, whole body images are p erformed from the skull base to the midthigh. Images are reviewed on the computer in the coronal, ax ial, and sagittal planes. Reconstructed rotating images are created on independent workstation and r eviewed on the computer. A localization and attenuation correction CT is performed in conjunction w ith the PET scan. Blood glucose level = 101. SCAN: Initial Scan FINDINGS: SKULL BASE AND NECK: No areas of abnormal hypermetabolic uptake. CHEST, MEDIASTINUM, AND HILAR REGION: No areas of abnormal hypermetabolic uptake. ABDOMEN AND PELVIS: Eccentric wall thickening posterior left bladder is better seen on recent CT vers us PET/CT. Normal uptake in the bladder is present. No abnormal hypermetabolic uptake to suggest meta static disease. OSSEOUS STRUCTURES: Mild symmetric hypermetabolic uptake bilateral hips at the level of the greater t rochanters could reflect product of trochanteric bursitis. No abnormal hypermetabolic uptake to sugge st metastatic disease. OTHER CT: Moderate calcified plaque bilateral carotid bulb level. At least moderate coronary artery c alcification is redemonstrated which is noted marker for underlying coronary artery disease. Heart si ze upper limits of normal with small to tiny pericardial effusion. Simple appearing 1.6 cm thin-walled cyst left hepatic lobe axial image 143 redemonstrated. Gallbladde r is hyperdense suggesting small stones and/or gallbladder sludge. Patient has little intra-abdominal fat. Surgical changes to the right colon are present. Sigmoid colonic diverticula. Enlarged prostate consistent with BPH. Scattered pelvic phleboliths. IMPRESSION: No suspicious hypermetabolic uptake to suggest local or distal metastatic neoplasm.
== END | disposition home or self-care (01) ==
LOC: RADPETMAIN 14:23
PROVIDERS: ATTEND Physician Assistant
DX: C67.2 Malignant neoplasm of lateral wall of bladder (principal)
CPT/HCPCS: 78815; A9552

== ENCOUNTER → 2022-04-01 | Outpatient (CLI) | payer OTHER ==
[2022-04-01 23:20] LABS: Basophils # (A) 0.07 X 10*3/uL (0.00-0.10); Basophils % (A) 0.7 %; Eosinophils # (A) 0.27 X 10*3/uL (0.04-0.35); Eosinophils % (A) 2.8 %; HGB 11.1 g/dL (13.0-17.0); Immature Grans, Automated 0.4 %; Lymphocytes # (A) 0.97 X 10*3/uL (0.90-5.00); Lymphocytes % (A) 9.9 %; MCH 30.8 pg (27.0-32.0); MCHC 31.7 g/dL (32.0-37.0); MCV 97.2 fL (80.0-97.0); Mean Platelet Volume 8.8 fL (9.5-12.2); Monocytes # (A) 0.47 X 10*3/uL (0.20-1.00); Monocytes % (A) 4.8 %; NRBC Per 100 WBC 0 /100 WBCS (0.0-0.0); Neutrophils # (A) 7.97 X 10*3/uL (1.80-7.70); Neutrophils % (A) 81.4 %; Platelet Count 293 X 10*3/uL (140-440); RDW 14.6 % (11.5-14.5); WBC 9.79 X 10*3/uL (4.50-10.00)
[2022-04-01 23:33] LABS: % Iron Saturation 25.97 (15.00-50.00); African American GFR (CKD) 28.4 (60.0-200.0); Albumin 4.2 g/dL (3.8-4.9); Albumin/Globulin Ratio 1.68 (1.60-3.17); Anion Gap 11.5 mmol/L (10.00-18.00); BUN/Creat Ratio 8.71 Ratio (12.00-20.00); Blood Urea Nitrogen 22.3 mg/dL (9.0-27.0); Calcium 8.8 mg/dL (8.7-10.3); Carbon Dioxide 20.4 mmol/L (20.0-27.5); Globulin 2.5 g/dL (1.6-3.3); Magnesium 2.4 mg/dL (1.5-2.4); Non-African American GFR(CKD) 24.5 (60.0-200.0); Phosphorus 3.5 mg/dL (2.4-5.1); Potassium 4.4 mmol/L (3.5-5.5); Total Bilirubin 0.2 mg/dL (0.30-1.20); Total Protein 6.6 g/dL (6.2-8.2); Uric Acid 7.2 mg/dL (3.7-8.7)
[2022-04-02 03:09] LABS: Appearance,Urine Cloudy (Clear); Bilirubin,Urine Negative (Negative); Blood,Urine Negative (Negative); Color,Urine Yellow (Yellow); Ketones,Urine Negative (Negative); Nitrite,Urine Positive (Negative); Specific Gravity,Urine 1.014 (1.001-1.030); Urobilinogen,Urine 0.2 (0.2,1.0)
[2022-04-02 04:37] LABS: Bacteria,Urine 3+ /HPF (None Seen)
== END | disposition home or self-care (01) ==
LOC: LABWHC1 16:45
PROVIDERS: ATTEND Nurse Practitioner Family
DX: D64.9 Anemia, unspecified (principal); N39.0 Urinary tract infection, site not specified; E21.3 Hyperparathyroidism, unspecified; E55.9 Vitamin D deficiency, unspecified; M10.9 Gout, unspecified; N18.4 Chronic kidney disease, stage 4 (severe)
CPT/HCPCS: 36415; 80053; 81001; 82306; 82728; 83540; 83550; 83735; 83970; 84100; 84550; 85025

== ENCOUNTER 2022-05-26 07:38 | Emergency (ER) | payer OTHER ==
[2022-05-26 07:57] VITALS: TEMP 98
[2022-05-26] MEDS ORDERED: LIDOCAINE 1%-EPI 1:100,000 20 ML VIAL SUBMUCOSAL ONE (08:24)
--- NOTE | 2022-05-26 08:58 | ED ---
Wound/Laceration HPI - General Chief Complaint: Wound/Laceration Stated Complaint: Lip injury Time Seen by Provider: 05/26/22 08:00 Source: patient, RN notes reviewed Mode of arrival: ambulatory Limitations: no limitations - History of Present Illness Initial Comments: This is a 71-year-old male who presents to the emergency department with a laceration to his upper lip. He acquired the laceration this morning when he ran into a wood board and his teeth punctured his lip. His last tetanus vaccine was within a year ago. Also reports an increase in swelling to the bilateral lower extremities. Patient states that this is also very painful. He has had mild swelling in the past, however nothing has been this severe. He has been trying to avoid being on his feet for too long during the day, however that has not helped either. Not currently taking any blood thinners. Denies any chest pain or shortness of breath. He does have a noted history of congestive heart failure on his medical record, however the patient states that he does not know what this is. Denies any fevers, chills, sore throat, cough, dyspnea, chest pain, palpit ations, abdominal pain, nausea, vomiting, diarrhea, back pain, or headaches. Location: other (Upper Lip) Patient Tetanus UTD: Yes Context: accidental - Related Data Home Medications Medication Instructions Recorded Confirmed Mirtazapine [Remeron] 45 mg PO HS 06/04/16 08/27/21 Tamsulosin [Flomax] 0.4 mg PO DAILY 06/04/16 08/27/21 Docusate [Colace] 200 mg PO DAILY 06/08/20 08/27/21 Famotidine [Pepcid] 20 mg PO BID PRN 06/08/20 08/27/21 Melatonin 3 mg PO HS 06/08/20 08/27/21 Multivitamins, Thera [Multivitamin 1 tab PO DAILY 06/08/20 08/27/21 (formulary)] Isosorbide Mononitrate ER [Imdur] 30 mg PO DAILY 10/21/20 08/27/21 carvediloL [Coreg*] 12.5 mg PO BID 10/21/20 08/27/21 Aspirin EC [Ecotrin Low Dose] 81 mg PO DAILY 06/24/21 08/27/21 Atorvastatin Calcium [Lipitor] 20 mg PO HS 06/24/21 08/27/21 Losartan [Cozaar] 50 mg PO DAILY 06/24/21 08/27/21 Amiodarone [Cordarone] 200 mg PO BID 06/25/21 08/27/21 Nitroglycerin Sl Tabs [Nitrostat] 0.4 mg SL Q5M PRN 06/25/21 08/27/21 QUEtiapine [SEROquel] 100 mg PO HS 06/25/21 08/27/21 Albuterol Inhaler [Ventolin Hfa 1 puff INHALATION DIRECTED PRN 08/27/21 08/27/21 Inhaler] Fluticasone Propion/Salmeterol 1 inhalation PO DAILY 08/27/21 08/27/21 [Wixela 250-50 Inhub] Furosemide [Lasix] 40 mg PO DAILY 08/27/21 08/27/21 Prochlorperazine [Compazine] 10 mg PO DIRECTED PRN 08/27/21 08/27/21 hydrALAZINE HCL [Apresoline] 50 mg PO TID 08/27/21 08/27/21 Allergies Allergy/AdvReac Type Severity Reaction Status Date / Time lisinopril Allergy Angioedema., Verified 05/26/22 07:56 swollen testicle, rash morphine AdvReac Nausea & Verified 05/26/22 07:56 Vomiting Review of Systems ROS Statement: Those systems with pertinent positive or pertinent negative responses have been documented in the HPI. ROS Other: All systems not noted in ROS Statement are negative. Past Medical History Past Medical History: Cancer, Heart Failure, COPD, GERD/Reflux, Hyperlipidemia, Hypertension, Prostate Disorder, Renal Disease Additional Past Medical History / Comment(s): cancerous polyp with bowel res ection (2014)., BPH., HEMORRHOIDS, RLS., cardiac arrest in September 2020., stage 4 kidney disease, lower back pain, anemia, states 40 # wt loss in the last 8 months. History of Any Multi-Drug Resistant Organisms: None Reported Past Surgical History: Appendectomy, Bowel Resection, Heart Catheterization, Orthopedic Surgery Additional Past Surgical History / Comment(s): ACL SX RT KNEE X3, LEFT HEEL FUSION, LEFT ARM BICEP SX, NASAL SX R/T ULCER, colon resection, COLONOSCOPY, HEART CATH (09/2020) Past Anesthesia/Blood Transfusion Reactions: No Reported Reaction Past Psychological History: Anxiety Smoking Status: Current every day smoker Past Alcohol Use History: None Reported Past Drug Use History: None Reported - Past Family History Mother Family Medical History: Cancer Additional Family Medical History / Comment(s): BREAST Sister(s) Family Medical History: Deep Vein Thrombosis (DVT) Additional Family Medical History / Comment(s): 1 sister had leukemia, and another sister had non hodgkins. Father Family Medical History: COPD Additional Family Medical History / Comment(s): FROM CARDIAC ARREST General Exam Limitations: no limitations General appearance: alert, in no apparent distress Head exam: Present: atraumatic, normocephalic, normal inspection Respiratory exam: Present: normal lung sounds bilaterally. Absent: respiratory distress, wheezes, rales, rhonchi, stridor Cardiovascular Exam: Present: regular rate, normal rhythm, normal heart sounds. Absent: systolic murmur, diastolic murmur, rubs, gallop, clicks Extremities exam: Present: other (2+ pitting bilateral lower extremity edema. Minor overlying erythema. Tenderness to palpation.) Neurological exam: Present: alert, oriented X3, CN II-XII intact Psychiatric exam: Present: normal affect, normal mood Skin exam: Present: other (3 cm diagonal laceration above the upper lip. This h as punctured through to the other side.) Course Vital Signs 05/26/22 05/26/22 07:54 10:13 Temperature 98 F Pulse Rate 97 81 Respiratory 20 16 Rate Blood Pressure 192/90 200/92 O2 Sat by Pulse 99 98 Oximetry Procedures - Laceration Laceration #1 Consent Obtained: verbal consent Indication: laceration Site: lip Size (cm): 3 Description: linear Depth: simple, single layer Anesthetic Used: lidocaine 1%, with epi Anesthesia Technique: local infiltration Amount (mls): 1 Type of Sutures: vicryl Size of Sutures: 5-0 Number of Sutures: 4 Technique: simple, interrupted Medical Decision Making - Medical Decision Making This is a 71-year-old male who presents to the emergency department for a lacer ation to the upper lip and bilateral lower extremity edema. Lab work does reveal a hypokalemia of 3.3. The patient was given 20 mEq of K-dur. Lab work reveals an elevated troponin and elevated BNP. Patient was advised that the cause of his bilateral lower extremity edema is likely related to his congestive heart failure and the fact that he is not taking the Lasix. Patient states that he does not take the Lasix because "I don't have fluid on my heart". It appears that the patient has confusion related to his medications. I instructed him to resume taking his Lasix as prescribed. He should also elevate his legs and reduced sodium intake. Patient wanted to leave A originally, but was willing to stay for a repeat troponin. Repeat troponin was slightly elevated compared with the original value. Patient states that he has had a full cardiac workup in the past and is not concerned about his heart at this time. States that he has no chest pain or shortness of breath and will follow up with cardiology as an outpatient. I did strongly advise that he remain in the hospital for observation given the CHF exacerbation and elevated troponin, however the patient declined despite my strongest recommendations. Of note, he has had an elevated troponin multiple times in the past that have been associated with his chronic renal failure. It may very well be elevated due to the renal failure at this time as well. He has nitroglycerin tablets and will take one if he experiences any chest pain. The laceration to the lip was repaired with absorbable sutures. Advised that he does not need to return for suture removal and they will dissolve on their own in a couple of weeks. Return precautions reviewed in depth, the patient is instructed to return to the emergency department with any new, worsening, or concerning symptoms. Patient verbalized understanding. This case was discussed in detail with the attending ED physician. Presentation, findings, and treatment plan discussed in detail as well. - Lab Data Result diagrams: 05/26/22 08:38 05/26/22 08:38 Lab Results 05/26/22 05/26/22 05/26/22 Range/Units 08:38 08:38 08:38 WBC 7.2 (3.8-10.6) k/uL RBC 2.71 L (4.30-5.90) m/uL Hgb 9.1 L (13.0-17.5) gm/dL Hct 27.6 L (39.0-53.0) % MCV 102.0 H (80.0-100.0) fL MCH 33.7 (25.0-35.0) pg MCHC 33.1 (31.0-37.0) g/dL RDW 19.9 H (11.5-15.5) % Plt Count 166 (150-450) k/uL MPV 7.3 Neutrophils % 86 % Lymphocytes % 4 % Monocytes % 5 % Eosinophils % 3 % Basophils % 0 % Neutrophils # 6.1 (1.3-7.7) k/uL Lymphocytes # 0.3 L (1.0-4.8) k/uL Monocytes # 0.4 (0-1.0) k/uL Eosinophils # 0.2 (0-0.7) k/uL Basophils # 0.0 (0-0.2) k/uL Anisocytosis Slight Macrocytosis Moderate Sodium 134 L (137-145) mmol/L Potassium 3.3 L (3.5-5.1) mmol/L Chloride 106 (98-107) mmol/L Carbon Dioxide 28 (22-30) mmol/L Anion Gap 0 mmol/L BUN 32 H (9-20) mg/dL Creatinine 2.55 H (0.66-1.25) mg/dL Est GFR (CKD-EPI)AfAm 29 (>60 ml/min/1.73 sqM) Est GFR (CKD-EPI)NonAf 25 (>60 ml/min/1.73 sqM) Glucose 93 (74-99) mg/dL Calcium 6.6 L (8.4-10.2) mg/dL Total Bilirubin 0.1 L (0.2-1.3) mg/dL AST 49 (17-59) U/L ALT 29 (4-49) U/L Alkaline Phosphatase 64 (38-126) U/L Troponin I 0.070 H* (0.000-0.034) ng/mL NT-Pro-B Natriuret Pep pg/mL Total Protein 4.2 L (6.3-8.2) g/dL Albumin 2.1 L (3.5-5.0) g/dL 05/26/22 05/26/22 Range/Units 08:38 12:01 WBC (3.8-10.6) k/uL RBC (4.30-5.90) m/uL Hgb (13.0-17.5) gm/dL Hct (39.0-53.0) % MCV (80.0-100.0) fL MCH (25.0-35.0) pg MCHC (31.0-37.0) g/dL RDW (11.5-15.5) % Plt Count (150-450) k/uL MPV Neutrophils % % Lymphocytes % % Monocytes % % Eosinophils % % Basophils % % Neutrophils # (1.3-7.7) k/uL Lymphocytes # (1.0-4.8) k/uL Monocytes # (0-1.0) k/uL Eosinophils # (0-0.7) k/uL Basophils # (0-0.2) k/uL Anisocytosis Macrocytosis Sodium (137-145) mmol/L Potassium (3.5-5.1) mmol/L Chloride (98-107) mmol/L Carbon Dioxide (22-30) mmol/L Anion Gap mmol/L BUN (9-20) mg/dL Creatinine (0.66-1.25) mg/dL Est GFR (CKD-EPI)AfAm (>60 ml/min/1.73 sqM) Est GFR (CKD-EPI)NonAf (>60 ml/min/1.73 sqM) Glucose (74-99) mg/dL Calcium (8.4-10.2) mg/dL Total Bilirubin (0.2-1.3) mg/dL AST (17-59) U/L ALT (4-49) U/L Alkaline Phosphatase (38-126) U/L Troponin I 0.073 H* (0.000-0.034) ng/mL NT-Pro-B Natriuret Pep 23397 pg/mL Total Protein (6.3-8.2) g/dL Albumin (3.5-5.0) g/dL - Radiology Data Radiology results: report reviewed, image reviewed Disposition Clinical Impression: Laceration, Congestive heart failure, Elevated troponin Disposition: HOME SELF-CARE Instructions (If sedation given, give patient instructions): Heart Failure (ER), Leg Edema (ED), Care For Your Absorbable Stitches (ED) Additional Instructions: Return to the emergency department with any new, worsening, or concerning symptoms. Elevate your legs as much as possible and limit sodium intake. Make sure you follow up with your radiological equipment specialist and take the Lasix daily as prescribed. Your stitches will dissolve on their own and do not need to be removed. Follow up with your primary care provider in 1-2 days. Is patient prescribed a controlled substance at d/c from ED?: No Referrals: Ashvin Millan PAC [REFERRING] - 1-2 days
[2022-05-26 09:25] LABS: Anisocytosis Slight; Basophils % (A) 0 %; Eosinophils # (A) 0.2 k/uL (0-0.7); Eosinophils % (A) 3 %; HCT 27.6 % (39.0-53.0); HGB 9.1 gm/dL (13.0-17.5); Lymphocytes # (A) 0.3 k/uL (1.0-4.8); Lymphocytes % (A) 4 %; MCH 33.7 pg (25.0-35.0); MCHC 33.1 g/dL (31.0-37.0); Macrocytosis Moderate; Mean Platelet Volume 7.3; Monocytes # (A) 0.4 k/uL (0-1.0); Monocytes % (A) 5 %; Neutrophils # (A) 6.1 k/uL (1.3-7.7); Neutrophils % (A) 86 %; Platelet Count 166 k/uL (150-450); RBC 2.71 m/uL (4.30-5.90); RDW 19.9 % (11.5-15.5); WBC 7.2 k/uL (3.8-10.6)
[2022-05-26 09:36] LABS: Albumin 2.1 g/dL (3.5-5.0); Calcium 6.6 mg/dL (8.4-10.2); Potassium 3.3 mmol/L (3.5-5.1); Total Bilirubin 0.1 mg/dL (0.2-1.3); Total Protein 4.2 g/dL (6.3-8.2)
--- NOTE | 2022-05-26 09:48 | US ---
EXAMINATION TYPE: US venous doppler duplex LE DATE OF EXAM: 05/26/2022 9:33 AM COMPARISON: US, 07/08/2020 CLINICAL HISTORY: Bilateral leg swelling and pain. Bilateral leg swelling, pt currently on chemo SIDE PERFORMED: Bilateral TECHNIQUE: The lower extremity deep venous system is examined utilizing real time linear array sonog patty with graded compression, doppler sonography and color-flow sonography. VESSELS IMAGED: Common Femoral Vein Deep Femoral Vein Greater Saphenous Vein * Femoral Vein Popliteal Vein Small Saphenous Vein * Proximal Calf Veins (* superficial vessels) Right Leg: Negative for DVT Left Leg: Negative for DVT IMPRESSION: Grayscale, color doppler, spectral doppler imaging performed of the deep veins of the lo wer extremities. There is normal flow, compressibility, vascular waveforms.
[2022-05-26] MEDS ORDERED: POTASSIUM CHLORIDE ER 20 MEQ TAB.ER PO STA (10:04)
[2022-05-26 10:17] VITALS: BP 200/92; PULSE 81; RESP 16
== END 2022-05-26 14:39 | disposition home or self-care (01) ==
LOC: SUPCPDRO 07:38 → EC 07:38
DX: S01.511A Laceration without foreign body of lip, initial encounter (principal); I50.22 Chronic systolic (congestive) heart failure; R79.89 Other specified abnormal findings of blood chemistry; R22.43 Localized swelling, mass and lump, lower limb, bilateral; J44.9 Chronic obstructive pulmonary disease, unspecified; K21.9 Gastro-esophageal reflux disease without esophagitis; E78.5 Hyperlipidemia, unspecified; I11.0 Hypertensive heart disease with heart failure; F41.9 Anxiety disorder, unspecified; F17.200 Nicotine dependence, unspecified, uncomplicated; Z88.8 Allergy status to other drugs, medicaments and biological substances; Z88.6 Allergy status to analgesic agent; Z79.82 Long term (current) use of aspirin; Z79.899 Other long term (current) drug therapy; W22.8XXA Striking against or struck by other objects, initial encounter
CPT/HCPCS: 12013; 36415; 80053; 83880; 84484; 85025; 93970; 99284

== ENCOUNTER 2022-05-30 22:30 | Inpatient (IN) | payer OTHER, MEDICARE ==
--- NOTE | 2022-05-30 23:03 | ED ---
General Adult HPI - General Chief complaint: Extremity Problem,Nontraumatic Stated complaint: Leg swelling Time Seen by Provider: 05/30/22 22:55 Source: patient Mode of arrival: ambulatory Limitations: no limitations - History of Present Illness Initial comments: Patient presents to the ED complaining of having increasing bilateral lower extremity edema over the past 5 days or so. Patient also admits to having mild dyspnea and orthopnea. Patient states that he was restarted on Lasix about 3 days ago due to his lower extremity edema. Patient states that he recently completed chemotherapy and radiation treatment for bladder cancer. Patient denies having any pain, fever or chills, headache, focal numbness/weakness/neuro deficit, chest pain or pressure, cough or cold symptoms, palpitations, dizziness, abdominal pain, nausea/vomiting/diarrhea, bloody or melanotic stool, decreased urine output, dysuria or urinary symptoms, leg pain, or any other symptoms or complaints. - Related Data Home Medications Medication Instructions Recorded Confirmed Mirtazapine [Remeron] 45 mg PO HS 06/04/16 08/27/21 Tamsulosin [Flomax] 0.4 mg PO DAILY 06/04/16 08/27/21 Docusate [Colace] 200 mg PO DAILY 06/08/20 08/27/21 Famotidine [Pepcid] 20 mg PO BID PRN 06/08/20 08/27/21 Melatonin 3 mg PO HS 06/08/20 08/27/21 Multivitamins, Thera [Multivitamin 1 tab PO DAILY 06/08/20 08/27/21 (formulary)] Isosorbide Mononitrate ER [Imdur] 30 mg PO DAILY 10/21/20 08/27/21 carvediloL [Coreg*] 12.5 mg PO BID 10/21/20 08/27/21 Aspirin EC [Ecotrin Low Dose] 81 mg PO DAILY 06/24/21 08/27/21 Atorvastatin Calcium [Lipitor] 20 mg PO HS 06/24/21 08/27/21 Losartan [Cozaar] 50 mg PO DAILY 06/24/21 08/27/21 Amiodarone [Cordarone] 200 mg PO BID 06/25/21 08/27/21 Nitroglycerin Sl Tabs [Nitrostat] 0.4 mg SL Q5M PRN 06/25/21 08/27/21 QUEtiapine [SEROquel] 100 mg PO HS 06/25/21 08/27/21 Albuterol Inhaler [Ventolin Hfa 1 puff INHALATION DIRECTED PRN 08/27/21 08/27/21 Inhaler] Fluticasone Propion/Salmeterol 1 inhalation PO DAILY 08/27/21 08/27/21 [Wixela 250-50 Inhub] Furosemide [Lasix] 40 mg PO DAILY 08/27/21 08/27/21 Prochlorperazine [Compazine] 10 mg PO DIRECTED PRN 08/27/21 08/27/21 hydrALAZINE HCL [Apresoline] 50 mg PO TID 08/27/21 08/27/21 Allergies Allergy/AdvReac Type Severity Reaction Status Date / Time lisinopril Allergy Angioedema., Verified 05/26/22 07:56 swollen testicle, rash morphine AdvReac Nausea & Verified 05/26/22 07:56 Vomiting Review of Systems ROS Statement: Those systems with pertinent positive or pertinent negative responses have been documented in the HPI. ROS Other: All systems not noted in ROS Statement are negative. Past Medical History Past Medical History: Cancer, Heart Failure, COPD, GERD/Reflux, Hyperlipidemia, Hypertension, Prostate Disorder, Renal Disease Additional Past Medical History / Comment(s): cancerous polyp with bowel resection (2014)., BPH., HEMORRHOIDS, RLS., cardiac arrest in September 2020., stage 4 kidney disease, lower back pain, anemia, states 40 # wt loss in the last 8 months. History of Any Multi-Drug Resistant Organisms: None Reported Past Surgical History: Appendectomy, Bowel Resection, Heart Catheterization, Orthopedic Surgery Additional Past Surgical History / Comment(s): ACL SX RT KNEE X3, LEFT HEEL FUSION, LEFT ARM BICEP SX, NASAL SX R/T ULCER, colon resection, COLONOSCOPY, HEART CATH (09/2020) Past Anesthesia/Blood Transfusion Reactions: No Reported Reaction Past Psychological History: Anxiety Smoking Status: Current every day smoker Past Alcohol Use History: None Reported Past Drug Use History: None Reported - Past Family History Mother Family Medical History: Cancer Additional Family Medical History / Comment(s): BREAST Sister(s) Family Medical History: Deep Vein Thrombosis (DVT) Additional Family Medical History / Comment(s): 1 sister had leukemia, and anoth er sister had non hodgkins. Father Family Medical History: COPD Additional Family Medical History / Comment(s): FROM CARDIAC ARREST General Exam Limitations: no limitations General appearance: alert, in no apparent distress Head exam: Present: atraumatic, normocephalic Eye exam: Present: normal appearance, EOMI ENT exam: Present: mucous membranes moist Neck exam: Present: other (Trachea is in midline) Respiratory exam: Present: normal lung sounds bilaterally. Absent: respiratory distress, wheezes, rales, rhonchi, stridor Cardiovascular Exam: Present: regular rate, normal rhythm, normal heart sounds, other (Normal radial pulses bilaterally) GI/Abdominal exam: Present: soft. Absent: distended, tenderness, guarding Extremities exam: Present: other (3+ bilateral lower extremity pedal edema). Absent: tenderness, calf tenderness Neurological exam: Present: alert, oriented X3. Absent: motor sensory deficit Psychiatric exam: Present: normal affect, normal mood Skin exam: Present: warm, dry, intact, normal color Course Vital Signs 05/30/22 22:32 Temperature 98.1 F Pulse Rate 101 H Respiratory 18 Rate Blood Pressure 198/97 O2 Sat by Pulse 96 Oximetry - Reevaluation(s) Reevaluation #1: 05/31/22 01:22 Patient denies development of any new symptoms while in the ED. Patient remains alert and breathing comfortably. Patient is aware of his test results, and he agrees with hospital admission at this time. 05/31/22 01:35 Case, H&P, test results and ED management were discussed with Dr. Yang. He accepts hospital admission. He agrees with cardiology consultation. He has no further recommendations at this time. EKG Findings - EKG Comments: EKG Findings:: Normal sinus rhythm, ventricular rate of 95 bpm, no ectopy, normal SC and QRS intervals, normal QT interval, normal axis, nonspecific ST abnormality, no significant change when compared to 06/25/2021 EKG Medical Decision Making - Medical Decision Making I suspect the patient's lower extremity edema is likely secondary to CHF and/or renal insufficiency. Patient's potassium level is low at 2.9, and he was given oral potassium repletion in the ED. Given the patient's low potassium level, will hold off on Lasix diuresis at this time. Patient's troponin is mildly elevated. Patient denies having any chest pain. Patient's EKG is unchanged when compared to his prior. Patient has been given a dose of oral aspirin in the ED. Will admit the patient to the hospital for further evaluation and treatment. A cardiology consultation order has been placed. Dr. Yang has accepted hospital admission. - Lab Data Result diagrams: 05/30/22 23:56 05/30/22 23:56 Lab Results 05/30/22 05/30/22 05/30/22 Range/Units 23:56 23:56 23:56 WBC 9.0 (3.8-10.6) k/uL RBC 2.59 L (4.30-5.90) m/uL Hgb 8.7 L (13.0-17.5) gm/dL Hct 26.9 L (39.0-53.0) % MCV 103.9 H (80.0-100.0) fL MCH 33.5 (25.0-35.0) pg MCHC 32.2 (31.0-37.0) g/dL RDW 20.5 H (11.5-15.5) % Plt Count 177 (150-450) k/uL MPV 7.2 Neutrophils % 88 % Lymphocytes % 4 % Monocytes % 5 % Eosinophils % 1 % Basophils % 0 % Neutrophils # 7.9 H (1.3-7.7) k/uL Lymphocytes # 0.4 L (1.0-4.8) k/uL Monocytes # 0.4 (0-1.0) k/uL Eosinophils # 0.1 (0-0.7) k/uL Basophils # 0.0 (0-0.2) k/uL Anisocytosis Moderate Macrocytosis Marked A PT 10.5 (9.0-12.0) sec INR 1.0 (<1.2) APTT 22.4 (22.0-30.0) sec Sodium 136 L (137-145) mmol/L Potassium 2.9 L (3.5-5.1) mmol/L Chloride 100 (98-107) mmol/L Carbon Dioxide 34 H (22-30) mmol/L Anion Gap 2 mmol/L BUN 34 H (9-20) mg/dL Creatinine 2.38 H (0.66-1.25) mg/dL Est GFR (CKD-EPI)AfAm 31 (>60 ml/min/1.73 sqM) Est GFR (CKD-EPI)NonAf 27 (>60 ml/min/1.73 sqM) Glucose 101 H (74-99) mg/dL Calcium 7.4 L (8.4-10.2) mg/dL Magnesium 1.8 (1.6-2.3) mg/dL Total Bilirubin 0.1 L (0.2-1.3) mg/dL AST 44 (17-59) U/L ALT 28 (4-49) U/L Alkaline Phosphatase 58 (38-126) U/L Troponin I (0.000-0.034) ng/mL NT-Pro-B Natriuret Pep pg/mL Total Protein 4.8 L (6.3-8.2) g/dL Albumin 2.5 L (3.5-5.0) g/dL Urine Color Urine Appearance (Clear) Urine pH (5.0-8.0) Ur Specific [place] (1.001-1.035) Urine Protein (Negative) Urine Glucose (UA) (Negative) Urine Ketones (Negative) Urine Blood (Negative) Urine Nitrite (Negative) Urine Bilirubin (Negative) Urine Urobilinogen (<2.0) mg/dL Ur Leukocyte Esterase (Negative) Urine RBC (0-5) /hpf Urine WBC (0-5) /hpf 05/30/22 05/30/22 05/30/22 Range/Units 23:56 23:56 23:56 WBC (3.8-10.6) k/uL RBC (4.30-5.90) m/uL Hgb (13.0-17.5) gm/dL Hct (39.0-53.0) % MCV (80.0-100.0) fL MCH (25.0-35.0) pg MCHC (31.0-37.0) g/dL RDW (11.5-15.5) % Plt Count (150-450) k/uL MPV Neutrophils % % Lymphocytes % % Monocytes % % Eosinophils % % Basophils % % Neutrophils # (1.3-7.7) k/uL Lymphocytes # (1.0-4.8) k/uL Monocytes # (0-1.0) k/uL Eosinophils # (0-0.7) k/uL Basophils # (0-0.2) k/uL Anisocytosis Macrocytosis PT (9.0-12.0) sec INR (<1.2) APTT (22.0-30.0) sec Sodium (137-145) mmol/L Potassium (3.5-5.1) mmol/L Chloride (98-107) mmol/L Carbon Dioxide (22-30) mmol/L Anion Gap mmol/L BUN (9-20) mg/dL Creatinine (0.66-1.25) mg/dL Est GFR (CKD-EPI)AfAm (>60 ml/min/1.73 sqM) Est GFR (CKD-EPI)NonAf (>60 ml/min/1.73 sqM) Glucose (74-99) mg/dL Calcium (8.4-10.2) mg/dL Magnesium (1.6-2.3) mg/dL Total Bilirubin (0.2-1.3) mg/dL AST (17-59) U/L ALT (4-49) U/L Alkaline Phosphatase (38-126) U/L Troponin I 0.139 H* (0.000-0.034) ng/mL NT-Pro-B Natriuret Pep 04902 pg/mL Total Protein (6.3-8.2) g/dL Albumin (3.5-5.0) g/dL Urine Color Light Yellow Urine Appearance Clear (Clear) Urine pH 6.5 (5.0-8.0) Ur Specific [place] 1.007 (1.001-1.035) Urine Protein 1+ H (Negative) Urine Glucose (UA) Negative (Negative) Urine Ketones Negative (Negative) Urine Blood Negative (Negative) Urine Nitrite Negative (Negative) Urine Bilirubin Negative (Negative) Urine Urobilinogen <2.0 (<2.0) mg/dL Ur Leukocyte Esterase Negative (Negative) Urine RBC <1 (0-5) /hpf Urine WBC 2 (0-5) /hpf - Radiology Data Chest x-ray: There is mild pulmonary interstitial edema that is improved compar ed to old exam. There is probably some underlying pulmonary fibrosis. There is probably COPD. Disposition Clinical Impression: Bilateral lower extremity edema, Hypokalemia, Chronic renal insufficiency, Anemia, CHF (congestive heart failure), Elevated troponin Disposition: ADMITTED IP TO THIS HOSP Condition: Stable Is patient prescribed a controlled substance at d/c from ED?: No Referrals: None,Stated [REFERRING] - 1-2 days Time of Disposition: 01:39
[2022-05-31 00:25] LABS: Anisocytosis Moderate; Basophils % (A) 0 %; Eosinophils # (A) 0.1 k/uL (0-0.7); Eosinophils % (A) 1 %; HCT 26.9 % (39.0-53.0); HGB 8.7 gm/dL (13.0-17.5); Lymphocytes # (A) 0.4 k/uL (1.0-4.8); Lymphocytes % (A) 4 %; MCH 33.5 pg (25.0-35.0); MCHC 32.2 g/dL (31.0-37.0); Macrocytosis Marked; Mean Platelet Volume 7.2; Monocytes # (A) 0.4 k/uL (0-1.0); Monocytes % (A) 5 %; Neutrophils # (A) 7.9 k/uL (1.3-7.7); Neutrophils % (A) 88 %; Platelet Count 177 k/uL (150-450); RBC 2.59 m/uL (4.30-5.90); RDW 20.5 % (11.5-15.5)
[2022-05-31 00:26] LABS: MCV 103.9 fL (80.0-100.0)
--- NOTE | 2022-05-31 00:32 | XR ---
EXAMINATION TYPE: XR chest 1V portable DATE OF EXAM: 05/31/2022 COMPARISON: NONE HISTORY: Short of breath. Leg swelling. TECHNIQUE: Single view FINDINGS: There is coarsening of the interstitial markings. Heart size is normal. There is slight shirley nting right costophrenic angle. There are chest leads. Trachea is midline. There are no hilar masses. Mediastinum is normal. IMPRESSION: There is mild pulmonary interstitial edema that is improved compared to old exam. There i s probably some underlying pulmonary fibrosis. There is probably COPD
[2022-05-31 00:34] LABS: Partial Thromboplastin Time 22.4 sec (22.0-30.0); Prothrombin Time 10.5 sec (9.0-12.0)
[2022-05-31 00:48] LABS: Albumin 2.5 g/dL (3.5-5.0); Calcium 7.4 mg/dL (8.4-10.2); Magnesium 1.8 mg/dL (1.6-2.3); Potassium 2.9 mmol/L (3.5-5.1); Total Bilirubin 0.1 mg/dL (0.2-1.3); Total Protein 4.8 g/dL (6.3-8.2)
[2022-05-31 00:50] LABS: Appearance,Urine Clear (Clear); Bilirubin,Urine Negative (Negative); Blood,Urine Negative (Negative); Color,Urine Light Yellow; Glucose,Urine (UA) Negative (Negative); Ketones,Urine Negative (Negative); Leukocyte Esterase,Urine Negative (Negative); Nitrite,Urine Negative (Negative); PH, Urine 6.5 (5.0-8.0); Protein,Urine 1+ (Negative); RBC,Urine <1 /hpf (0-5); Specific Gravity,Urine 1.007 (1.001-1.035); Urobilinogen,Urine <2.0 mg/dL (<2.0); WBC,Urine 2 /hpf (0-5)
[2022-05-31] MEDS ORDERED: POTASSIUM CHLORIDE ER 20 MEQ TAB.ER PO STA (00:58)
[2022-05-31] MEDS ORDERED: ASPIRIN 81 MG PO STA (01:19)
[2022-05-31] MEDS ORDERED: cloNIDine HCL 0.2 MG TAB PO PRN (01:37)
--- NOTE | 2022-05-31 02:02 | P.HPIM ---
History of Present Illness H&P Date: 05/31/22 Chief Complaint: Bilateral leg swelling 71-year-old male with COPD, severe CHF ischemic cardiomyopathy, history of cardiac arrest 2019, history of colon cancer status post resection, history of bladder cancer Patient comes in today for progressive bilateral leg swelling, he reports that it was noticed a few days ago his Lasix dose at home was increased however without much improvement he says it would improve when he lays down but when she get up and will swell back up again. Today he started becoming associated with some trouble breathing with minimal exertion and orthopnea he denies any chest pain. He denies any coughing denies any wheezing denies any fevers or chills. Denies any GI bleeding nausea or vomiting. He reports that he is compliant with his medications he is trying to everything possible to avoid getting sick and coming to the hospital. She reports that she days ago he had a laceration on his lips as he lost his balance and hit the table edge he was seen in the ED and that was sutured. At that time his leg swelling was noted in his home dose of Lasix was increased. He was kind of difficult getting the full information from the patient hE is slightly tangential in his thoughts and he gets irritated if I interrupt him or ask him for more details. Patient recently finished treatment for bladder cancer and he was hoping that he is done with hospitals Workup in the ED showed stable CK D, stable chronic anemia, chronically elevated troponins, hypokalemia Chest x-ray showed mild pulmonary vascular congestion Review of Systems Pertinent positives as noted in HPI. All other systems were reviewed and are negative Past Medical History Past Medical History: Cancer, Heart Failure, COPD, GERD/Reflux, Hyperlipidemia, Hypertension, Prostate Disorder, Renal Disease Additional Past Medical History / Comment(s): cancerous polyp with bowel r esection (2014)., BPH., HEMORRHOIDS, RLS., cardiac arrest in September 2020., stage 4 kidney disease, lower back pain, anemia, states 40 # wt loss in the last 8 months. History of Any Multi-Drug Resistant Organisms: None Reported Past Surgical History: Appendectomy, Bowel Resection, Heart Catheterization, Orthopedic Surgery Additional Past Surgical History / Comment(s): ACL SX RT KNEE X3, LEFT HEEL FUSION, LEFT ARM BICEP SX, NASAL SX R/T ULCER, colon resection, COLONOSCOPY, HEART CATH (09/2020) Past Anesthesia/Blood Transfusion Reactions: No Reported Reaction Past Psychological History: Anxiety Smoking Status: Current every day smoker Past Alcohol Use History: None Reported Past Drug Use History: None Reported - Past Family History Mother Family Medical History: Cancer Additional Family Medical History / Comment(s): BREAST Sister(s) Family Medical History: Deep Vein Thrombosis (DVT) Additional Family Medical History / Comment(s): 1 sister had leukemia, and another sister had non hodgkins. Father Family Medical History: COPD Additional Family Medical History / Comment(s): FROM CARDIAC ARREST Medications and Allergies Home Medications Medication Instructions Recorded Confirmed Type Mirtazapine [Remeron] 45 mg PO HS 06/04/16 08/27/21 History Tamsulosin [Flomax] 0.4 mg PO DAILY 06/04/16 08/27/21 History Docusate [Colace] 200 mg PO DAILY 06/08/20 08/27/21 History Famotidine [Pepcid] 20 mg PO BID PRN 06/08/20 08/27/21 History Melatonin 3 mg PO HS 06/08/20 08/27/21 History Multivitamins, Thera [Multivitamin 1 tab PO DAILY 06/08/20 08/27/21 History (formulary)] Isosorbide Mononitrate ER [Imdur] 30 mg PO DAILY 10/21/20 08/27/21 History carvediloL [Coreg*] 12.5 mg PO BID 10/21/20 08/27/21 History Aspirin EC [Ecotrin Low Dose] 81 mg PO DAILY 06/24/21 08/27/21 History Atorvastatin Calcium [Lipitor] 20 mg PO HS 06/24/21 08/27/21 History Losartan [Cozaar] 50 mg PO DAILY 06/24/21 08/27/21 History Amiodarone [Cordarone] 200 mg PO BID 06/25/21 08/27/21 History Nitroglycerin Sl Tabs [Nitrostat] 0.4 mg SL Q5M PRN 06/25/21 08/27/21 History QUEtiapine [SEROquel] 100 mg PO HS 06/25/21 08/27/21 History Albuterol Inhaler [Ventolin Hfa 1 puff INHALATION DIRECTED PRN 08/27/21 08/27/21 History Inhaler] Fluticasone Propion/Salmeterol 1 inhalation PO DAILY 08/27/21 08/27/21 History [Wixela 250-50 Inhub] Furosemide [Lasix] 40 mg PO DAILY 08/27/21 08/27/21 History Prochlorperazine [Compazine] 10 mg PO DIRECTED PRN 08/27/21 08/27/21 History hydrALAZINE HCL [Apresoline] 50 mg PO TID 08/27/21 08/27/21 History Allergies Allergy/AdvReac Type Severity Reaction Status Date / Time lisinopril Allergy Angioedema., Verified 05/26/22 07:56 swollen testicle, rash morphine AdvReac Nausea & Verified 05/26/22 07:56 Vomiting Physical Exam Vitals: Vital Signs Temp Pulse Resp BP Pulse Ox 05/30/22 22:32 98.1 F 101 H 18 198/97 96 Intake and Output 05/30/22 05/30/22 05/31/22 14:59 22:59 06:59 Other: Weight 49.895 kg Constitutional: No acute distress, conversant, pleasant Eyes: Anicteric sclerae, moist conjunctiva, Pupils equal round reactive to light ENMT: NC/AT Oropharynx clear, no erythema, or exudates Neck: Supple, , no masses, positive JVD No carotid bruits No thyromegaly Lungs: Good breath sounds bilaterally with end expiratory wheezing Clear to percussion Normal respiratory effort, no accessory muscle use Cardiovascular: Heart regular in rate and rhythm, No murmurs, gallops, or rubs +3 bilateral peripheral edema Abdominal: Soft Nontender, no guarding, rebound or rigidity Abdomen moving with respiration Normoactive bowel sounds No hepatomegaly, No splenomegaly No palpable mass No abdominal wall hernia noted Skin: Normal temperature, tone, texture, turgor No induration No subcutaneous nodules No rash, lesions No ulcers Extremities: No digital cyanosis No clubbing Pedal pulses intact and symmetrical Radial pulses intact and symmetrical No calf tenderness Psychiatric: Alert and oriented to person, place and time Appropriate affect fair judgement Neuro Muscles Strength 4/5 in all 4 extremities Sensation to light touch grossly present throughout Cranial nerves II-XII grossly intact No focal sensory deficits Lymphatics: no palpable cervical or supraclavicular , or inguinal lymph nodes Results CBC & Chem 7: 05/30/22 23:56 05/30/22 23:56 Labs: Abnormal Lab Results - Last 24 Hours (Table) 05/30/22 05/30/22 05/30/22 Range/Units 23:56 23:56 23:56 RBC 2.59 L (4.30-5.90) m/uL Hgb 8.7 L (13.0-17.5) gm/dL Hct 26.9 L (39.0-53.0) % MCV 103.9 H (80.0-100.0) fL RDW 20.5 H (11.5-15.5) % Neutrophils # 7.9 H (1.3-7.7) k/uL Lymphocytes # 0.4 L (1.0-4.8) k/uL Macrocytosis Marked A Sodium 136 L (137-145) mmol/L Potassium 2.9 L (3.5-5.1) mmol/L Carbon Dioxide 34 H (22-30) mmol/L BUN 34 H (9-20) mg/dL Creatinine 2.38 H (0.66-1.25) mg/dL Glucose 101 H (74-99) mg/dL Calcium 7.4 L (8.4-10.2) mg/dL Total Bilirubin 0.1 L (0.2-1.3) mg/dL Troponin I 0.139 H* (0.000-0.034) ng/mL Total Protein 4.8 L (6.3-8.2) g/dL Albumin 2.5 L (3.5-5.0) g/dL Urine Protein (Negative) 05/30/22 Range/Units 23:56 RBC (4.30-5.90) m/uL Hgb (13.0-17.5) gm/dL Hct (39.0-53.0) % MCV (80.0-100.0) fL RDW (11.5-15.5) % Neutrophils # (1.3-7.7) k/uL Lymphocytes # (1.0-4.8) k/uL Macrocytosis Sodium (137-145) mmol/L Potassium (3.5-5.1) mmol/L Carbon Dioxide (22-30) mmol/L BUN (9-20) mg/dL Creatinine (0.66-1.25) mg/dL Glucose (74-99) mg/dL Calcium (8.4-10.2) mg/dL Total Bilirubin (0.2-1.3) mg/dL Troponin I (0.000-0.034) ng/mL Total Protein (6.3-8.2) g/dL Albumin (3.5-5.0) g/dL Urine Protein 1+ H (Negative) Assessment and Plan Assessment: Acute exacerbation of CHF Severe ischemic cardiomyopathy History of CAD Hypokalemia Chronic stable anemia Chronic CK D stable COPD compensated Chronically elevated troponins 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
[2022-05-31] MEDS ORDERED: IPRATROPIUM-ALBUTEROL 3 ML NEB INHALATION PRN (02:03)
[2022-05-31] MEDS: POTASSIUM CHLORIDE 10 MEQ in WATER FOR INJECTION 1 100ML.BAG IVPB SCH ×4 (02:42→06:14)
[2022-05-31 06:07] LABS: Calcium 7.4 mg/dL (8.4-10.2); Magnesium 1.9 mg/dL (1.6-2.3); Potassium 3.9 mmol/L (3.5-5.1)
[2022-05-31] MEDS: carvediloL 12.5 MG TAB PO SCH ×2 (06:35→15:13)
[2022-05-31] MEDS ORDERED: ISOSORBIDE MONONITRATE ER 30 MG TAB.ER.24H PO SCH (09:00)
[2022-05-31] MEDS ORDERED: hydrALAZINE HCL 50 MG TAB PO SCH (09:00)
[2022-05-31] MEDS: ASPIRIN 81 MG PO SCH (09:11)
[2022-05-31] MEDS: AMIODARONE 200 MG TAB PO SCH ×2 (09:11→20:18)
[2022-05-31] MEDS: HEPARIN SODIUM,PORCINE/PF 5,000 UNIT/0.5 ML SYRINGE SQ SCH ×3 (09:12→22:58)
[2022-05-31] MEDS: FUROSEMIDE 10 MG/ML 4 ML VIAL IV SCH ×2 (09:12→20:18)
[2022-05-31] MEDS: LOSARTAN 50 MG TAB PO SCH (09:12)
--- NOTE | 2022-05-31 14:14 | CONS ---
CONSULTATION CHIEF COMPLAINT: Leg edema. HISTORY OF PRESENT ILLNESS: Rey is 71-year-old gentleman with complex and multiple medical problems, including hypertension, dyslipidemia, prior cardiac arrest, history of bladder cancer status post chemo radiation, who presented to hospital with symptoms of worsening bilateral leg edema. Cardiology had been consulted because of mildly elevated troponin. He does not have chest pain. He has mild stable shortness of breath. He had been treated with intravenous diuretics with significant improvement in his leg swelling. He is able to lie flat and is free of symptoms. The patient had lost weight and has recently been regaining his weight. He has history of mild non-obstructive CAD and nonischemic cardiomyopathy and has had history of colon cancer for which he underwent right hemicolectomy and had a cardiac arrest with ventricular tachycardia in September of 2020. He had a cardiac catheterization in September of 2020 that did not reveal significant CAD. He also has peripheral arterial disease primarily involving the right external iliac artery. His previous echocardiogram showed an ejection fraction of 40%. I am going to repeat an echo on this admission. An EKG shows sinus rhythm with evidence of prior anteroseptal myocardial infarction. LABS: Labs show that the BUN and creatinine are elevated at 31 and 2.38. Troponin is at 0.1, 0.1 and 0.1 suggestive of troponin elevation secondary to chronic renal [place]. [place] [address]. The patient's clinical presentation is consistent with acute exacerbation of chronic systolic heart failure. Troponin elevation is not related to myocardial infarction. PAST MEDICAL HISTORY: Significant for cardiomyopathy with congestive heart failure, bladder cancer, history of cardiac arrest, nonischemic cardiomyopathy. MEDICATIONS: Medications at home included: Cozaar, Coreg 12.5 b.i.d., Apresoline 50 t.i.d., aspirin, Lipitor, Cordarone 200 b.i.d., Flomax, Seroquel, Compazine, Remeron, Lasix 40 daily, Pepcid, Colace and Ventolin. ALLERGIES: TO LISINOPRIL AND MORPHINE. FAMILY HISTORY: Patient did not want to talk about it. SOCIAL HISTORY: Significant for smoking. There is no history of EtOH abuse or drug abuse. REVIEW OF SYSTEMS: HEENT is unremarkable. CARDIAC as described above. RESPIRATORY negative. GI negative. GENITOURINARY as described above. PSYCHOSOCIAL negative. ENDOCRINE negative. DERM: Negative. CONSTITUTIONAL: Negative. [employer] ASSOCIATE negative. Rest of the system review is not relevant. EXAM: Comfortable at rest. Heart rate is 90 beats per minute. Blood pressure is 187/90. Respirations 18. There is no jugular venous distention. Carotid upstroke is normal. There is no bruit. Chest exam reveals diminished air entry at the bases. Heart exam reveals first and second heart sounds. S4 is heard. There is a systolic murmur at the apex. ABDOMEN: Soft. Exam of extremities reveals bilateral moderate edema. Peripheral pulses are palpable. Labs show a hemoglobin of 8.7, platelet count is 177. Potassium is 3.9, creatinine is 2.3. Tropes are mildly elevated and BNP is elevated. ASSESSMENT: 1. Troponin elevation secondary to renal failure. 2. Chronic renal failure. 3. Acute exacerbation of chronic systolic heart failure. 4. History of cardiac arrest on long-term Cordarone. 5. Uncontrolled hypertension. MMODL / IJN: [id number] /
[2022-05-31] MEDS: HYDROcodone/APAP 10-325MG 1 EACH TAB PO PRN (15:13)
[2022-05-31] MEDS: hydrALAZINE HCL 50 MG TAB PO SCH ×2 (15:15→20:18)
[2022-05-31 15:27] VITALS: BMI 17.2
[2022-05-31] MEDS ORDERED: BENZOCAINE 20 % GEL 11.9 GM TUBE MM ONE (17:40)
[2022-05-31] MEDS ORDERED: ATORVASTATIN 40 MG TAB PO SCH (21:00)
[2022-06-01 03:39] VITALS: RESP 16
[2022-06-01] MEDS: carvediloL 12.5 MG TAB PO SCH (06:01)
[2022-06-01] MEDS: HYDROcodone/APAP 10-325MG 1 EACH TAB PO PRN (06:01)
[2022-06-01 08:00] LABS: Anisocytosis Moderate; Basophils % (A) 0 %; Eosinophils # (A) 0.2 k/uL (0-0.7); Eosinophils % (A) 2 %; HCT 28.6 % (39.0-53.0); HGB 9.1 gm/dL (13.0-17.5); Hypochromasia Slight; Lymphocytes # (A) 0.5 k/uL (1.0-4.8); Lymphocytes % (A) 7 %; MCH 33.9 pg (25.0-35.0); MCHC 31.9 g/dL (31.0-37.0); MCV 106.2 fL (80.0-100.0); Macrocytosis Marked; Mean Platelet Volume 7.6; Monocytes # (A) 0.3 k/uL (0-1.0); Monocytes % (A) 5 %; Neutrophils # (A) 5.5 k/uL (1.3-7.7); Neutrophils % (A) 84 %; Platelet Count 207 k/uL (150-450); RBC 2.69 m/uL (4.30-5.90); RDW 20.9 % (11.5-15.5); WBC 6.5 k/uL (3.8-10.6)
[2022-06-01 08:17] LABS: Albumin 2.1 g/dL (3.5-5.0); Calcium 6.9 mg/dL (8.4-10.2); Potassium 3.5 mmol/L (3.5-5.1); Total Bilirubin 0.2 mg/dL (0.2-1.3); Total Protein 4.3 g/dL (6.3-8.2)
[2022-06-01] MEDS ORDERED: LOPERAMIDE 2 MG CAP PO PRN (09:01)
[2022-06-01] MEDS ORDERED: OXYBUTYNIN CHLORIDE 5 MG TAB PO STA (09:06)
--- NOTE | 2022-06-01 09:06 | P.PN ---
Subjective Patient was examined at bedside today not complaining of any urinary symptoms, chest pain or palpitations. Patient also denies any worsening shortness of breath. He Currently Lasix Which Is Responding Really Well to. Pending Evaluation by Cardiology, 2-D Echocardiogram. Objective - Vital Signs Vital signs: Vital Signs Temp 98.0 F 06/01/22 03:38 Pulse 77 06/01/22 03:38 Resp 16 06/01/22 03:38 BP 131/62 06/01/22 03:38 Pulse Ox 97 06/01/22 03:38 FiO2 Intake & Output 05/31/22 06/01/22 06/01/22 18:59 06:59 18:59 Intake Total 1100 1450 180 Output Total 450 1900 Balance 650 -450 180 Weight 49.9 kg 51.7 kg Intake: IV 20 10 Invasive Line 1 20 10 Oral 1080 1440 180 Output: Urine 450 1900 Other: Voiding Method Toilet Toilet Urinal # Voids 2 # Bowel Movements 1 - Exam Constitutional: No acute distress, conversant, pleasant Eyes: Anicteric sclerae, moist conjunctiva, Pupils equal round reactive to light ENMT: NC/AT Canker sore noted upper lip Neck: Supple, , no masses, positive JVD No carotid bruits No thyromegaly Lungs: Good breath sounds bilaterally with end expiratory wheezing Clear to percussion Normal respiratory effort, no accessory muscle use Cardiovascular: Heart regular in rate and rhythm, No murmurs, gallops, or rubs +3 bilateral peripheral edema Abdominal: Soft Nontender, no guarding, rebound or rigidity Abdomen moving with respiration Skin: Normal temperature, tone, texture, turgor No induration No subcutaneous nodules No rash, lesions No ulcers Psychiatric: Alert and oriented to person, place and time Appropriate affect fair judgement - Labs CBC & Chem 7: 06/01/22 07:12 06/01/22 07:12 Labs: Abnormal Lab Results - Last 24 Hours (Table) 05/31/22 06/01/22 06/01/22 Range/Units 15:34 07:12 07:12 RBC 2.69 L (4.30-5.90) m/uL Hgb 9.1 L (13.0-17.5) gm/dL Hct 28.6 L (39.0-53.0) % MCV 106.2 H (80.0-100.0) fL RDW 20.9 H (11.5-15.5) % Macrocytosis Marked A Sodium 134 L (137-145) mmol/L Potassium 3.4 L (3.5-5.1) mmol/L BUN 38 H (9-20) mg/dL Creatinine 2.34 H (0.66-1.25) mg/dL Calcium 6.9 L (8.4-10.2) mg/dL Total Protein 4.3 L (6.3-8.2) g/dL Albumin 2.1 L (3.5-5.0) g/dL Assessment and Plan Assessment: Assessment: #1 congestive heart failure with moderately reduced ejection fraction 4550% bas ed on 2020 echo #2 essential hypertension #3 hyperlipidemia #4 history of bladder cancer/colon Per patient #5 hyperlipidemia Plan: -Admit to medicine for close monitoring -Aspiration/fall precaution -Patient having episodes of bladder spasms as per RN. We'll continue to monitor with Flomax patient does have a history of bladder cancer most likely provoking this. We can give a trial of oxybutynin 1 -Continue with Lasix we'll decrease to IV 40 daily -Pending evaluation of 2-D echo for valvular and hypokinesis or change in ejection fraction -Cardiology evaluation pending -Education regarding medication compliance -DVT prophylaxis heparin
[2022-06-01] MEDS: AMIODARONE 200 MG TAB PO SCH (09:36)
[2022-06-01] MEDS: ASPIRIN 81 MG PO SCH (09:36)
[2022-06-01] MEDS: LOSARTAN 50 MG TAB PO SCH (09:36)
[2022-06-01] MEDS: hydrALAZINE HCL 50 MG TAB PO SCH (09:36)
[2022-06-01] MEDS: FUROSEMIDE 10 MG/ML 4 ML VIAL IV SCH (09:36)
[2022-06-01] MEDS: HEPARIN SODIUM,PORCINE/PF 5,000 UNIT/0.5 ML SYRINGE SQ SCH (09:37)
--- NOTE | 2022-06-01 09:51 | CA ---
Transthoracic Echo Report Name: Rey Child Age: 71 Gender: M : 1950 Exam Date: 06/01/2022 08:06 Exam Location: [facility] Ht (in): 67 Wt (lb): 113 Ordering Physician: Toni Olivarez MD Attending/Referring Phys: Hog Sticker Anitha Waldrop RDCS Procedure CPT: Indications: chf Cardiac Hx: Technical Quality: Good Contrast 1: Total Dose (mL): Contrast 2: Total Dose (mL): MEASUREMENTS (Male / Female) Normal Values 2D ECHO LV Diastolic Diameter PLAX 4.9 cm 4.2 - 5.9 / 3.9 - 5.3 cm LV Systolic Diameter PLAX 2.7 cm IVS Diastolic Thickness 1.1 cm 0.6 - 1.0 / 0.6 - 0.9 cm LVPW Diastolic Thickness 1.0 cm 0.6 - 1.0 / 0.6 - 0.9 cm LV Relative Wall Thickness 0.4 LVOT Diameter 1.4 cm LA Volume 37.2 cm??? 18 - 58 / 22 - 52 cm??? M-MODE Aortic Root Diameter MM 3.1 cm MV E Point Septal Separation 4.4 cm AV Cusp Separation MM 1.9 cm DOPPLER AV Peak Velocity 185.0 cm/s AV Peak Gradient 13.7 mmHg AV Mean Velocity 125.4 cm/s AV Mean Gradient 7.3 mmHg AV Velocity Time Integral 34.7 cm LVOT Peak Velocity 109.6 cm/s LVOT Peak Gradient 4.8 mmHg AV Area Cont Eq pk 1.0 cm??? MV Area PHT 5.7 cm??? MR Peak Velocity 168.9 cm/s MR Peak Gradient 11.4 mmHg Mitral E Point Velocity 65.9 cm/s Mitral A Point Velocity 96.1 cm/s Mitral E to A Ratio 0.7 MV Deceleration Time 132.6 ms MV E' Velocity 5.6 cm/s Mitral E to MV E' Ratio 11.8 TR Peak Velocity 140.2 cm/s TR Peak Gradient 7.9 mmHg Right Ventricular Systolic Press 12.6 mmHg FINDINGS Left Ventricle Mildly increased septal wall thickness. Left ventricular ejection fraction is estimated at 50-55 %. Left ventricular cavity size normal. Right Ventricle The right ventricle is normal in size and function. Right Atrium The right atrium is normal in size. Left Atrium The left atrium is normal in size. Mitral Valve Structurally normal mitral valve without significant stenosis or prolapse. There is trace mitral regurgitation. Mitral valve thickened. Mitral annular calcification. Aortic Valve Mild aortic stenosis with a peak gradient of 14 mmHg and a mean gradient of 7 mmHg. . There is no aortic regurgitation. Tricuspid Valve Structurally normal tricuspid valve without significant stenosis. Pulmonary artery systolic pressure is normal. Trace tricuspid regurgitation. Pulmonic Valve Structurally normal pulmonic valve without significant stenosis. There is no pulmonic regurgitation. Pericardium Small pericardial effusion. Aorta Normal aortic root dimension. CONCLUSIONS LV systolic function is fairly well-preserved. There is mild aortic valve sclerosis with mild increase in gradient. No significant pulmonary hypertension. Small pericardial effusion Previewed by: Dr. Kenneth Bethea MD (Electronically Signed) Final Date: 01 June 2022 09:50
--- NOTE | 2022-06-01 11:58 | P.PN ---
Subjective HISTORY OF PRESENTING ILLNESS This is a pleasant 71-year-old male past medical history significant for mild nonobstructive CAD, nonischemic cardiomyopathy, chronic kidney disease, seizure disorder, hypertension, dyslipidemia, chronic tobacco use, history of colon cancer s/p right hemicolectomy in 2017, history of cardiac arrest with ventricular tachycardia in 09/2020. He follows in the office with Dr. Cardoso. We have been asked to see in consultation for congestive heart failure and elevated troponin. Patient presents to the ER with worsening bilateral lower extremity edema, shortness of breath. Started on IV Lasix DIAGNOSTICS * Most recent cardiac catheterization 09/08/2020 revealed mild to moderate nonobstructive coronary artery disease involving the mid LAD. Elevated LV EDP. Nonischemic cardiomyopathy. Severe disease involving the right external iliac artery. * Lexiscan stress test in the office in 02/02/2022, was abnormal myocardial perfusion imaging evidence of reversible defect of moderate size and mild intensity involving the distal anterior/apical segment of the left ventricle. Medical therapy was decided between Dr. Cardoso in the patient secondary to his prognosis and recent diagnosis of bladder cancer. Coronary angiogram was considered if surgery is planned for the cancer. * Echocardiogram in the office 02/2022 revealed EF 55%, mild concentric LVH, moderate mitral regurgitation, trace to mild tricuspid regurgitation 06/01/2022 Patient seen and examined at bedside, no distress. He denies any chest pain or shortness of breath. His lower extremity edema has improved. He is currently on IV Lasix 40mg BID. 2350mL urine output over the past 24 hours Echo: EF of 5055 % trace mitral regurgitation, mild aortic stenosis with peak/mean gradient of 14 mmHg/70 mmHg, small pericardial effusion. Labs: Sodium 134, potassium 2.5, BUN 38, serum creatinine 2.34,= Meds: aspirin 81 mg daily, atorvastatin 20 mg daily, carvedilol 12.5 mg twice a day, hydralazine 50 mg daily, Imdur, losartan 50 mg daily PHYSICAL EXAMINATION Vitals reviewed CONSTITUTIONAL: No apparent distress. HEENT: Head is normocephalic. Neck Supple. No JVD. No carotid bruit. CHEST EXAMINATION: Lungs are clear to auscultation. No chest wall tenderness is noted on palpation or with deep breathing. HEART EXAMINATION: Regular rate and rhythm. S1, S2 heard. Systolic murmur at the apex, no gallops or rubs ABDOMEN: Soft, slightly tender to palpation. Positive bowel sounds. EXTREMITIES: 2+ peripheral pulses, mild to moderate non-pitting lower extremity edema and no calf tenderness. NEUROLOGIC EXAMINATION: Patient is awake, alert and oriented x3. ASSESSMENT Acute on chronic heart failure with preserved ejection fraction Bilateral lower extremity edema worse with ambulation and improved with elevation could be some component of venous insufficiency Bladder cancer Mild nonobstructive CAD Nonischemic cardiomyopathy, with improved EF Chronic kidney disease History of hypertension Dyslipidemia Chronic tobacco use History of colon cancer s/p right hemicolectomy in 2017 History of cardiac arrest with ventricular tachycardia in 09/2020 Mild aortic stenosis PLAN Decrease Lasix IV 40mg daily Continue current cardiac medications Continue to monitor renal function and electrolytes Further recommendations based on clinical course Hopefully discharge in next 24 hours Follow up as an outpatient with Dr. Cardoso on discharge Nurse Practitioner note has been reviewed, I agree with a documented findings and plan of care. Patient was seen and examined. Objective - Vital Signs Vital signs: Vital Signs Temp 98.3 F 05/31/22 12:06 Pulse 71 05/31/22 12:06 Resp 18 05/31/22 12:06 BP 143/68 05/31/22 12:06 Pulse Ox 94 L 05/31/22 12:06 FiO2 Intake & Output 05/30/22 05/31/22 05/31/22 18:59 06:59 18:59 Output Total 450 Balance -450 Weight 49.9 kg Output: Urine 450 Other: Voiding Method Toilet # Voids 1 - Labs CBC & Chem 7: 06/01/22 07:12 06/01/22 07:12 Labs: Abnormal Lab Results - Last 24 Hours (Table) 05/30/22 05/30/22 05/30/22 Range/Units 23:56 23:56 23:56 RBC 2.59 L (4.30-5.90) m/uL Hgb 8.7 L (13.0-17.5) gm/dL Hct 26.9 L (39.0-53.0) % MCV 103.9 H (80.0-100.0) fL RDW 20.5 H (11.5-15.5) % Neutrophils # 7.9 H (1.3-7.7) k/uL Lymphocytes # 0.4 L (1.0-4.8) k/uL Macrocytosis Marked A Sodium 136 L (137-145) mmol/L Potassium 2.9 L (3.5-5.1) mmol/L Carbon Dioxide 34 H (22-30) mmol/L BUN 34 H (9-20) mg/dL Creatinine 2.38 H (0.66-1.25) mg/dL Glucose 101 H (74-99) mg/dL Calcium 7.4 L (8.4-10.2) mg/dL Total Bilirubin 0.1 L (0.2-1.3) mg/dL Troponin I 0.139 H* (0.000-0.034) ng/mL Total Protein 4.8 L (6.3-8.2) g/dL Albumin 2.5 L (3.5-5.0) g/dL Urine Protein (Negative) 05/30/22 05/31/22 05/31/22 Range/Units 23:56 02:53 05:36 RBC (4.30-5.90) m/uL Hgb (13.0-17.5) gm/dL Hct (39.0-53.0) % MCV (80.0-100.0) fL RDW (11.5-15.5) % Neutrophils # (1.3-7.7) k/uL Lymphocytes # (1.0-4.8) k/uL Macrocytosis Sodium (137-145) mmol/L Potassium (3.5-5.1) mmol/L Carbon Dioxide (22-30) mmol/L BUN (9-20) mg/dL Creatinine (0.66-1.25) mg/dL Glucose (74-99) mg/dL Calcium (8.4-10.2) mg/dL Total Bilirubin (0.2-1.3) mg/dL Troponin I 0.133 H* 0.125 H* (0.000-0.034) ng/mL Total Protein (6.3-8.2) g/dL Albumin (3.5-5.0) g/dL Urine Protein 1+ H (Negative) 05/31/22 Range/Units 05:36 RBC (4.30-5.90) m/uL Hgb (13.0-17.5) gm/dL Hct (39.0-53.0) % MCV (80.0-100.0) fL RDW (11.5-15.5) % Neutrophils # (1.3-7.7) k/uL Lymphocytes # (1.0-4.8) k/uL Macrocytosis Sodium 136 L (137-145) mmol/L Potassium (3.5-5.1) mmol/L Carbon Dioxide 35 H (22-30) mmol/L BUN 31 H (9-20) mg/dL Creatinine 2.38 H (0.66-1.25) mg/dL Glucose 112 H (74-99) mg/dL Calcium 7.4 L (8.4-10.2) mg/dL Total Bilirubin (0.2-1.3) mg/dL Troponin I (0.000-0.034) ng/mL Total Protein (6.3-8.2) g/dL Albumin (3.5-5.0) g/dL Urine Protein (Negative)
[2022-06-01 14:57] VITALS: BP 135/63; PULSE 69; TEMP 98.3
[2022-06-01] MEDS ORDERED: ATORVASTATIN 20 MG TAB PO SCH (21:00)
[2022-06-02] MEDS ORDERED: FUROSEMIDE 10 MG/ML 4 ML VIAL IV SCH (09:00)
== END 2022-06-01 14:51 | disposition left against medical advice (07) | DRG 291 ==
LOC: EC 22:30 → 3SCARD 05-31 01:40 → OBSVTOIN 05-31 11:57 → 3SCARD 05-31 23:37
PROVIDERS: ADMIT Internal Medicine; ATTEND Internal Medicine
DX: I13.0 Hypertensive heart and chronic kidney disease with heart failure and stage 1 through stage 4 chronic kidney disease, or unspecified chronic kidney disease (principal); I50.43 Acute on chronic combined systolic (congestive) and diastolic (congestive) heart failure; N18.4 Chronic kidney disease, stage 4 (severe); D63.1 Anemia in chronic kidney disease; F41.9 Anxiety disorder, unspecified; G25.81 Restless legs syndrome; G40.909 Epilepsy, unspecified, not intractable, without status epilepticus; C67.9 Malignant neoplasm of bladder, unspecified; E78.5 Hyperlipidemia, unspecified; E87.6 Hypokalemia; F17.210 Nicotine dependence, cigarettes, uncomplicated; I25.10 Atherosclerotic heart disease of native coronary artery without angina pectoris; I25.2 Old myocardial infarction; I25.5 Ischemic cardiomyopathy; I42.8 Other cardiomyopathies; Z86.74 Personal history of sudden cardiac arrest; I73.9 Peripheral vascular disease, unspecified; J44.9 Chronic obstructive pulmonary disease, unspecified; N40.0 Benign prostatic hyperplasia without lower urinary tract symptoms; Z79.82 Long term (current) use of aspirin; Z79.899 Other long term (current) drug therapy; Z80.6 Family history of leukemia; Z80.7 Family history of other malignant neoplasms of lymphoid, hematopoietic and related tissues; Z82.41 Family history of sudden cardiac death; Z82.5 Family history of asthma and other chronic lower respiratory diseases; Z85.038 Personal history of other malignant neoplasm of large intestine; Z90.49 Acquired absence of other specified parts of digestive tract; Z92.21 Personal history of antineoplastic chemotherapy; Z92.3 Personal history of irradiation; R77.8 Other specified abnormalities of plasma proteins; Z88.5 Allergy status to narcotic agent
CPT/HCPCS: 36415; 71045; 80048; 80053; 81001; 83735; 83880; 84132; 84484; 85025; 85610; 85730; 86850; 86900; 86901; 93005; 93306; 99285

== ENCOUNTER 2022-06-04 04:33 | Observation (INO) | payer MEDICARE, OTHER ==
--- NOTE | 2022-06-04 04:55 | ED ---
Extremity Problem HPI - General Chief complaint: Extremity Problem,Nontraumatic Stated complaint: Bilat. leg swelling, weakness Time Seen by Provider: 06/04/22 04:54 Source: patient Mode of arrival: ambulatory Limitations: no limitations - Related Data Home Medications Medication Instructions Recorded Confirmed Tamsulosin [Flomax] 0.4 mg PO DAILY 06/04/16 05/31/22 Famotidine [Pepcid] 20 mg PO BID 06/08/20 05/31/22 Multivitamins, Thera [Multivitamin 1 tab PO DAILY 06/08/20 05/31/22 (formulary)] carvediloL [Coreg*] 12.5 mg PO BID 10/21/20 05/31/22 Atorvastatin Calcium [Lipitor] 20 mg PO HS 06/24/21 05/31/22 Losartan [Cozaar] 50 mg PO DAILY 06/24/21 05/31/22 Amiodarone [Cordarone] 200 mg PO BID 06/25/21 05/31/22 Fluticasone Propion/Salmeterol 1 puff INHALATION RT-BID 08/27/21 05/31/22 [Wixela 250-50 Inhub] Furosemide [Lasix] 20 mg PO DAILY 05/31/22 05/31/22 HYDROcodone/APAP 10-325MG [Harbinger 1 tab PO Q8H PRN 05/31/22 05/31/22 10-325] Melatonin 5 mg PO HS 05/31/22 05/31/22 Mirtazapine [Remeron] 30 mg PO HS 05/31/22 05/31/22 Nitroglycerin Sl Tabs 0.3mg 0.3 mg SL Q5M PRN 05/31/22 05/31/22 QUEtiapine [SEROquel] 150 mg PO HS 05/31/22 05/31/22 hydrALAZINE HCL [Apresoline] 100 mg PO TID 05/31/22 05/31/22 Allergies Allergy/AdvReac Type Severity Reaction Status Date / Time lisinopril Allergy Angioedema., Verified 06/04/22 04:48 swollen testicle, rash morphine AdvReac Nausea & Verified 06/04/22 04:48 Vomiting Review of Systems ROS Statement: Those systems with pertinent positive or pertinent negative responses have been documented in the HPI. ROS Other: All systems not noted in ROS Statement are negative. Past Medical History Past Medical History: Cancer, Heart Failure, COPD, GERD/Reflux, Hyperlipidemia, Hypertension, Prostate Disorder, Renal Disease Additional Past Medical History / Comment(s): cancerous polyp with bowel resection (2014)., BPH., HEMORRHOIDS, RLS., cardiac arrest in September 2020., stage 4 kidney disease, lower back pain, anemia, states 40 # wt loss in the last 8 months. History of Any Multi-Drug Resistant Organisms: None Reported Past Surgical History: Appendectomy, Bowel Resection, Heart Catheterization, Orthopedic Surgery Additional Past Surgical History / Comment(s): ACL SX RT KNEE X3, LEFT HEEL FUSION, LEFT ARM BICEP SX, NASAL SX R/T ULCER, colon resection, COLONOSCOPY, HEART CATH (09/2020) Past Anesthesia/Blood Transfusion Reactions: No Reported Reaction Past Psychological History: Anxiety Smoking Status: Current some day smoker Past Alcohol Use History: None Reported Past Drug Use History: None Reported - Past Family History Mother Family Medical History: Cancer Additional Family Medical History / Comment(s): BREAST Sister(s) Family Medical History: Deep Vein Thrombosis (DVT) Additional Family Medical History / Comment(s): 1 sister had leukemia, and another sister had non hodgkins. Father Family Medical History: COPD Additional Family Medical History / Comment(s): FROM CARDIAC ARREST General Exam Limitations: no limitations Course Vital Signs 06/04/22 04:42 Temperature 98.4 F Pulse Rate 92 Respiratory 22 Rate Blood Pressure 183/85 O2 Sat by Pulse 99 Oximetry Disposition Clinical Impression: Chronic systolic CHF (congestive heart failure), Nonischemic cardiomyopathy, Bilateral lower extremity edema, Hypertension, Heart failure, Acute exacerbation of chronic obstructive pulmonary disease, Chronic renal failure Disposition: ADMITTED IP TO THIS HOSP Condition: Good Is patient prescribed a controlled substance at d/c from ED?: No Referrals: [facility] [Primary Care Provider] - 1-2 days
[2022-06-04] MEDS ORDERED: hydrALAZINE HCL 20 MG/ML 1 ML VIAL IVP STA (05:08)
[2022-06-04] MEDS ORDERED: NITROGLYCERIN OINT 1 INCH/GM PACKET TOPICAL STA (05:08)
[2022-06-04] MEDS ORDERED: FUROSEMIDE 10 MG/ML 10 ML VIAL IV STA (05:39)
[2022-06-04 05:45] LABS: Anisocytosis Moderate; Basophils % (A) 0 %; Eosinophils # (A) 0.2 k/uL (0-0.7); Eosinophils % (A) 2 %; HCT 27.1 % (39.0-53.0); HGB 8.5 gm/dL (13.0-17.5); Hypochromasia Slight; Lymphocytes # (A) 0.4 k/uL (1.0-4.8); Lymphocytes % (A) 5 %; MCH 33.4 pg (25.0-35.0); MCHC 31.5 g/dL (31.0-37.0); MCV 106.2 fL (80.0-100.0); Macrocytosis Marked; Mean Platelet Volume 7.6; Monocytes # (A) 0.4 k/uL (0-1.0); Monocytes % (A) 5 %; Neutrophils # (A) 7.8 k/uL (1.3-7.7); Neutrophils % (A) 87 %; Platelet Count 220 k/uL (150-450); RBC 2.56 m/uL (4.30-5.90); RDW 20.8 % (11.5-15.5); WBC 8.9 k/uL (3.8-10.6)
--- NOTE | 2022-06-04 05:45 | XR ---
EXAMINATION TYPE: XR chest 1V portable DATE OF EXAM: 06/04/2022 COMPARISON: 05/31/2020 HISTORY: Short of breath TECHNIQUE: Single view FINDINGS: Heart is normal. There is coarse pulmonary interstitial density throughout both lungs. Ther e are chest leads. There are no hilar masses. Costophrenic angles are clear. IMPRESSION: Pulmonary interstitial fibrosis. Normal heart. No significant change.
[2022-06-04 05:58] LABS: INR 0.9 (<1.2); Partial Thromboplastin Time 23.7 sec (22.0-30.0); Prothrombin Time 10.3 sec (9.0-12.0)
[2022-06-04 06:00] LABS: ALT 20 U/L (4-49); AST 28 U/L (17-59); African American GFR (CKD) 31 (>60 ml/min/1.73 sqM); Albumin 2.4 g/dL (3.5-5.0); Alkaline Phosphatase 57 U/L (38-126); Anion Gap 4 mmol/L; Blood Urea Nitrogen 37 mg/dL (9-20); Calcium 7.6 mg/dL (8.4-10.2); Carbon Dioxide 27 mmol/L (22-30); Chloride 104 mmol/L (98-107); Glucose 120 mg/dL (74-99); Non-African American GFR(CKD) 27 (>60 ml/min/1.73 sqM); Phosphorus 4.1 mg/dL (2.5-4.5); Potassium 3.4 mmol/L (3.5-5.1); Sodium 135 mmol/L (137-145); Total Bilirubin <0.1 mg/dL (0.2-1.3); Total Protein 4.7 g/dL (6.3-8.2)
[2022-06-04 06:21] LABS: Anisocytosis (M) Present; Poikilocytosis (M) Present; Polychromasia Present; RBC Fragments Present
[2022-06-04] MEDS: FUROSEMIDE 10 MG/ML 4 ML VIAL IV SCH ×2 (06:26→17:37)
[2022-06-04] MEDS ORDERED: POTASSIUM BICARBONATE/CIT AC 20 MEQ TABLET.EFF PO ONE (06:30)
[2022-06-04] MEDS: IPRATROPIUM-ALBUTEROL 3 ML NEB INHALATION PRN ×3 (06:30→20:25)
[2022-06-04] MEDS ORDERED: MORPHINE SULFATE 4 MG/ML SYRINGE IVP PRN (06:58)
[2022-06-04] MEDS ORDERED: ACETAMINOPHEN TAB 325 MG TAB PO PRN (09:22)
[2022-06-04] MEDS ORDERED: NALOXONE 0.4 MG/ML 1 ML VIAL IV PRN (09:22)
[2022-06-04] MEDS ORDERED: NICOTINE GUM (POLACRILEX) 2 MG GUM BUCCAL PRN (09:22)
--- NOTE | 2022-06-04 09:26 | P.HPIM ---
History of Present Illness H&P Date: 06/04/22 Patient is a 71-year-old female history of hypertension, dyslipidemia, aborted cardiac , non ischemic cardiomyopathy with prior systolic dysfunction and last ejection fraction 50-55% in May 2022 who presented to the hospital with complaints of lower extremity edema. In the ER he underwent an extensive evaluation. On arrival he was slightly hypertensive. Laboratory analysis showe d a hemoglobin of 8.5. Which does appear near his prior hemoglobin levels he was also noted to have positive troponin and a BNP of 41,700. Creatinine is elevated at 2.36 and appears near baseline. Chest x-ray demonstrated pulmonary interstitial fibrosis. He was diagnosed with acute exacerbation of congestive heart failure. He was started on Lasix. Arrangements are made for admission. Of note patient was hospitalized here from for the same but left AGAINST MEDICAL ADVICE after he felt he could treat his lower extremity edema at home. Patient seen and examined at bedside. After leaving the hospital 2 days ago he noted that his lower extremities starting swelling again. + shortness of breath is worse with laying flat but okay with exertion. No chest pain. No fevers or chills. He last saw Dr. Drake about 7 days ago for radiation, believes that he was on a chemo pill prior to this, he has completed all treatment for his bladder cancer. Pertinent positives and negatives as discussed in HPI, a complete review of systems was performed and all other systems are negative. Vital signs reviewed General: nontoxic, no distress, appears at stated age Derm: warm, dry Head: atraumatic, normocephalic, symmetric Eyes: EOMI, no lid lag, anicteric sclera, pupils equal round reactive to light ENT: Nose and ears atraumatic, no thrush, no pharyngeal erythema Neck: No thyromegaly, no cervical lymphadenopathy, trachea midline, supple Mouth: no lip lesion, mucus membranes moist Cardiovascular: S1S2 reg, no murmur, positive posterior tibial pulse bilateral, no edema, capillary refill less than 2 seconds Lungs: clear to auscultation bilateral, no rhonchi, no rales, no wheeze, no accessory muscle use Abdominal: soft, nontender to palpation, no guarding, no appreciable organomegaly, normal bowel sounds Ext: no gross muscle atrophy, muscle strength muscle strength 5 out of 5 in all 4 extremities, no contractures Neuro: CN II-XII grossly intact, light touch intact all 4 extremities, finger to nose within normal limits, Psych: Alert, oriented, appears anxious Assessment/Plan: Lower extremity edema - Likely acute exacerbation of CHF with preserved EF at 55% vs lymphedema from recent bladder radiation. - continue with lasix, aldacone - BB,ARB - strict I and O, daily weights - fluid restriction - cardio recs Elevated troponin -Downtrending from last admission and flat -Not consistent with ACS -Likely related to chronic kidney disease CKD IV - Cr at baseline - follow closely with diuresis HTN, urgency on arrival - Monitor blood pressures -Continue with Coreg, hydralazine, losartan Recent bladder Cancer - follow-up outpatient Chronic: COPD GERD Dyslipidemia The patient is admitted with an anticipated greater than 2 midnight stay for evaluation of CHF. DVT prophylaxis: Lovenox Discussed with: patient, nursing Anticipated discharge date: in 2-[address]: home A total of 65 minutes was spent on the care of this complex patient more than 50% of the time was spent in counseling and care coordination. Active Medications Generic Name Dose Route Start Last Admin Trade Name Freq PRN Reason Stop Dose Admin Acetaminophen 650 mg 06/04/22 09:22 Acetaminophen Tab 325 Mg Tab PO Q6HR PRN Mild Pain or Fever > 100.5 Hydrocodone Bitart/Acetaminophen 1 each 06/04/22 09:21 06/04/22 10:09 Hydrocodone/Apap 10-325mg 1 Each Tab PO 1 each Q8H PRN Administration Pain Albuterol/Ipratropium 3 ml 06/04/22 05:57 06/04/22 06:30 Ipratropium-Albuterol 3 Ml Neb INHALATION 3 ml RT-QID PRN Administration Shortness Of Breath Or Wheezing Amiodarone HCl 200 mg 06/04/22 09:30 06/04/22 10:09 Amiodarone 200 Mg Tab PO 200 mg BID SUMMER Administration Atorvastatin Calcium 20 mg 06/04/22 21:00 Atorvastatin 20 Mg Tab PO HS [facility]MER Budesonide/Formoterol Fumarate 2 puff 06/04/22 20:00 Symbicort 80-4.5 Mcg Inhaler INHALATION RT-BID SUMMER Carvedilol 12.5 mg 06/04/22 09:30 06/04/22 10:09 Carvedilol 12.5 Mg Tab PO 12.5 mg AC-BID SUMMER Administration Enoxaparin Sodium 40 mg 06/05/22 09:00 Enoxaparin 40 Mg/0.4 Ml Syringe SQ DAILY [facility] Famotidine 20 mg 06/04/22 09:30 06/04/22 10:09 Famotidine 20 Mg Tab PO 20 mg DAILY [facility]MER Administration Furosemide 40 mg 06/04/22 06:00 06/04/22 06:26 Furosemide 10 Mg/Ml 4 Ml Vial IV Not Given Q12H [facility] Hydralazine HCl 100 mg 06/04/22 16:00 Hydralazine Hcl 50 Mg Tab PO TID [facility] Losartan Potassium 50 mg 06/04/22 09:30 06/04/22 10:09 Losartan 50 Mg Tab PO 50 mg DAILY [facility] Administration Melatonin 5 mg 06/04/22 21:00 Melatonin 5 Mg Tablet PO HS [facility] Mirtazapine 30 mg 06/04/22 21:00 Mirtazapine 15 Mg Tab PO HS [facility] Miscellaneous Information 1 each 06/04/22 11:35 Potassium Replacement Protocol 1 Each Misc MISCELLANE DAILY PRN Per Protocol Protocol Morphine Sulfate 4 mg 06/04/22 06:58 06/04/22 07:09 Morphine Sulfate 4 Mg/Ml Syringe IVP 4 mg Q6HR PRN Administration Pain Multivitamins 1 each 06/05/22 09:00 Multivitamins, Thera 1 Each Tab PO DAILY [facility] Naloxone HCl 0.2 mg 06/04/22 09:22 Naloxone 0.4 Mg/Ml 1 Ml Vial IV Q2M PRN Opioid Reversal Nicotine Polacrilex 4 mg 06/04/22 09:22 Nicotine Gum (Polacrilex) 2 Mg Gum BUCCAL Q2HR PRN Nicotine Cravings Nitroglycerin 1 inch 06/04/22 09:00 06/04/22 10:08 Nitroglycerin Oint 1 Inch/Gm Packet TOPICAL 1 inch QID SUMMER Administration Quetiapine Fumarate 150 mg 06/04/22 21:00 Quetiapine 50 Mg Tab PO HS [facility] Tamsulosin HCl 0.4 mg 06/04/22 09:30 06/04/22 10:08 Tamsulosin 0.4 Mg Cap.Er.24h PO 0.4 mg DAILY SUMMER Administration Past Medical History Past Medical History: Cancer, Heart Failure, COPD, GERD/Reflux, Hyperlipidemia, Hypertension, Prostate Disorder, Renal Disease Additional Past Medical History / Comment(s): cancerous polyp with bowel resection (2014)., BPH., HEMORRHOIDS, RLS., cardiac arrest in September 2020., stage 4 kidney disease, lower back pain, anemia, Bladder cancer History of Any Multi-Drug Resistant Organisms: None Reported Past Surgical History: Appendectomy, Bowel Resection, Heart Catheterization, Orthopedic Surgery Additional Past Surgical History / Comment(s): ACL SX RT KNEE X3, LEFT HEEL FUSION, LEFT ARM BICEP SX, NASAL SX R/T ULCER, colon resection, COLONOSCOPY, HEART CATH (09/2020) Past Anesthesia/Blood Transfusion Reactions: No Reported Reaction Past Psychological History: Anxiety Smoking Status: Current some day smoker Past Alcohol Use History: None Reported Past Drug Use History: None Reported - Past Family History Mother Family Medical History: Cancer Additional Family Medical History / Comment(s): BREAST Sister(s) Family Medical History: Deep Vein Thrombosis (DVT) Additional Family Medical History / Comment(s): 1 sister had leukemia, and another sister had non hodgkins. Father Family Medical History: COPD Additional Family Medical History / Comment(s): FROM CARDIAC ARREST Medications and Allergies Home Medications Medication Instructions Recorded Confirmed Type Tamsulosin [Flomax] 0.4 mg PO DAILY 06/04/16 06/04/22 History Famotidine [Pepcid] 20 mg PO BID 06/08/20 06/04/22 History Multivitamins, Thera [Multivitamin 1 tab PO DAILY 06/08/20 06/04/22 History (formulary)] carvediloL [Coreg*] 12.5 mg PO BID 10/21/20 06/04/22 History Atorvastatin Calcium [Lipitor] 20 mg PO HS 06/24/21 06/04/22 History Losartan [Cozaar] 50 mg PO DAILY 06/24/21 06/04/22 History Amiodarone [Cordarone] 200 mg PO BID 06/25/21 06/04/22 History Fluticasone Propion/Salmeterol 1 puff INHALATION RT-BID 08/27/21 06/04/22 History [Wixela 250-50 Inhub] Furosemide [Lasix] 20 mg PO DAILY 05/31/22 06/04/22 History HYDROcodone/APAP 10-325MG [[place]rege 1 tab PO Q8H PRN 05/31/22 06/04/22 History 10-325] Melatonin 5 mg PO HS 05/31/22 06/04/22 History Mirtazapine [Remeron] 30 mg PO HS 05/31/22 06/04/22 History Nitroglycerin Sl Tabs 0.3mg 0.3 mg SL Q5M PRN 05/31/22 06/04/22 History QUEtiapine [SEROquel] 150 mg PO HS 05/31/22 06/04/22 History hydrALAZINE HCL [Apresoline] 100 mg PO TID 05/31/22 06/04/22 History Allergies Allergy/AdvReac Type Severity Reaction Status Date / Time lisinopril Allergy Angioedema., Verified 06/04/22 06:10 swollen testicle, rash Physical Exam Osteopathic Statement: *. No significant issues noted on an osteopathic structural exam other than those noted in the History and Physical/Consult. Vitals: Vital Signs Temp Pulse Resp BP Pulse Ox 06/04/22 07:55 81 16 178/80 99 06/04/22 06:37 82 06/04/22 06:31 86 06/04/22 06:26 86 18 172/80 98 06/04/22 04:42 98.4 F 92 22 183/85 99 Intake and Output 06/03/22 06/04/22 06/04/22 22:59 06:59 14:59 Other: Weight 47.627 kg Results CBC & Chem 7: 06/04/22 05:30 06/04/22 05:30 Labs: Abnormal Lab Results - Last 24 Hours (Table) 06/04/22 06/04/22 06/04/22 Range/Units 05:30 05:30 05:30 RBC 2.56 L (4.30-5.90) m/uL Hgb 8.5 L (13.0-17.5) gm/dL Hct 27.1 L (39.0-53.0) % MCV 106.2 H (80.0-100.0) fL RDW 20.8 H (11.5-15.5) % Neutrophils # 7.8 H (1.3-7.7) k/uL Lymphocytes # 0.4 L (1.0-4.8) k/uL Macrocytosis Marked A Sodium 135 L (137-145) mmol/L Potassium 3.4 L (3.5-5.1) mmol/L BUN 37 H (9-20) mg/dL Creatinine 2.36 H (0.66-1.25) mg/dL Glucose 120 H (74-99) mg/dL Calcium 7.6 L (8.4-10.2) mg/dL Total Bilirubin <0.1 L (0.2-1.3) mg/dL Troponin I 0.077 H* (0.000-0.034) ng/mL Total Protein 4.7 L (6.3-8.2) g/dL Albumin 2.4 L (3.5-5.0) g/dL 06/04/22 Range/Units 07:48 RBC (4.30-5.90) m/uL Hgb (13.0-17.5) gm/dL Hct (39.0-53.0) % MCV (80.0-100.0) fL RDW (11.5-15.5) % Neutrophils # (1.3-7.7) k/uL Lymphocytes # (1.0-4.8) k/uL Macrocytosis Sodium (137-145) mmol/L Potassium (3.5-5.1) mmol/L BUN (9-20) mg/dL Creatinine (0.66-1.25) mg/dL Glucose (74-99) mg/dL Calcium (8.4-10.2) mg/dL Total Bilirubin (0.2-1.3) mg/dL Troponin I 0.069 H* (0.000-0.034) ng/mL Total Protein (6.3-8.2) g/dL Albumin (3.5-5.0) g/dL
[2022-06-04] MEDS: TAMSULOSIN 0.4 MG CAP.ER.24H PO SCH (10:08)
[2022-06-04] MEDS: NITROGLYCERIN OINT 1 INCH/GM PACKET TOPICAL SCH ×3 (10:08→17:30)
[2022-06-04] MEDS: LOSARTAN 50 MG TAB PO SCH (10:09)
[2022-06-04] MEDS: HYDROcodone/APAP 10-325MG 1 EACH TAB PO PRN ×2 (10:09→21:31)
[2022-06-04] MEDS: FAMOTIDINE 20 MG TAB PO SCH (10:09)
[2022-06-04] MEDS: carvediloL 12.5 MG TAB PO SCH ×2 (10:09→17:38)
[2022-06-04] MEDS: AMIODARONE 200 MG TAB PO SCH ×2 (10:09→21:33)
[2022-06-04] MEDS ORDERED: Potassium Replacement Protocol 1 EACH MISC MISCELLANE PRN (11:35)
--- NOTE | 2022-06-04 11:37 | P.CRDCN ---
History of Present Illness Consult date: 06/04/22 History of present illness: Patient is a known history of systolic congestive heart failure, nonischemic cardiomyopathy, hypertension, COPD, and chronic renal failure. Patient follows with Dr. Cardoso in the office. We have been consulted to see him for congestive heart failure. Patient presented to the ER with bilateral lower extremity edema increase shortness breath with activity and orthopnea. Patient was discharged home from the hospital 2 days ago and he reports his lower extremity edema has worsened. Patient's chest x-ray shows pulmonary interstitial fibrosis and no acute cardiopulmonary process. Patient is undergoing radiation for bladder cancer. Patient had most recent radiation 1 week ago. EKG shows sinus rhythm with left ventricular hypertrophy and nonspecific ST-T wave changes. Troponin is 0.077, 0.069, BNP is 41,700. Which is improved from his previous admission. Patient does have moderate lower extremity pitting edema. He states he has been eating a lot of salt since he has been home in his diet. Additional labs show WBC 8.9 hemoglobin 8.5 platelet 220 sodium 135 potassium 3.4 BUN 37 creatinine 2.36 AST 20 ALT 20. Will obtain a limited 2-D echo, will continue with IV Lasix 40 mg twice a day. Patient is to have a low-sodium diet. Will supplement potassium. Will continue to follow the advisorCONNECT function Review of Systems REVIEW OF SYSTEMS At the time of my exam: CONSTITUTIONAL: Denies fever or chills. EYES: Negative for vision changes ENT: Negative for hearing loss CARDIOVASCULAR: Denies chest pain, shortness of breath, diaphoresis, orthopnea, PND or palpitations. VASCULAR: Reports edema RESPIRATORY: Denies cough. GASTROINTESTINAL: Denies abdominal pain, diarrhea, constipation, nausea or vom iting. MUSCULOSKELETAL: Denies myalgias. NEUROLOGIC: Denies numbness, tingling, headache or weakness. ENDOCRINE: Denies fatigue, weight change, polydipsia or polyurina. GENITOURINARY: Denies burning, hematuria or urgency with micturation. HEMATOLOGIC: Denies history of anemia or bleeding. DERMATOLOGY: Denies rash or skin sores PSYCH: Negative for depression or hallucinations. Past Medical History Past Medical History: Cancer, Heart Failure, COPD, GERD/Reflux, Hyperlipidemia, Hypertension, Prostate Disorder, Renal Disease Additional Past Medical History / Comment(s): cancerous polyp with bowel resection (2014)., BPH., HEMORRHOIDS, RLS., cardiac arrest in September 2020., stage 4 kidney disease, lower back pain, anemia, states 40 # wt loss in the last 8 months. History of Any Multi-Drug Resistant Organisms: None Reported Past Surgical History: Appendectomy, Bowel Resection, Heart Catheterization, Orthopedic Surgery Additional Past Surgical History / Comment(s): ACL SX RT KNEE X3, LEFT HEEL FUSION, LEFT ARM BICEP SX, NASAL SX R/T ULCER, colon resection, COLONOSCOPY, HEART CATH (09/2020) Past Anesthesia/Blood Transfusion Reactions: No Reported Reaction Past Psychological History: Anxiety Smoking Status: Current some day smoker Past Alcohol Use History: None Reported Past Drug Use History: None Reported - Past Family History Mother Family Medical History: Cancer Additional Family Medical History / Comment(s): BREAST Sister(s) Family Medical History: Deep Vein Thrombosis (DVT) Additional Family Medical History / Comment(s): 1 sister had leukemia, and another sister had non hodgkins. Father Family Medical History: COPD Additional Family Medical History / Comment(s): FROM CARDIAC ARREST Medications and Allergies Home Medications Medication Instructions Recorded Confirmed Type Tamsulosin [Flomax] 0.4 mg PO DAILY 06/04/16 06/04/22 History Famotidine [Pepcid] 20 mg PO BID 06/08/20 06/04/22 History Multivitamins, Thera [Multivitamin 1 tab PO DAILY 06/08/20 06/04/22 History (formulary)] carvediloL [Coreg*] 12.5 mg PO BID 10/21/20 06/04/22 History Atorvastatin Calcium [Lipitor] 20 mg PO HS 06/24/21 06/04/22 History Losartan [Cozaar] 50 mg PO DAILY 06/24/21 06/04/22 History Amiodarone [Cordarone] 200 mg PO BID 06/25/21 06/04/22 History Fluticasone Propion/Salmeterol 1 puff INHALATION RT-BID 08/27/21 06/04/22 History [Wixela 250-50 Inhub] Furosemide [Lasix] 20 mg PO DAILY 05/31/22 06/04/22 History HYDROcodone/APAP 10-325MG [Carefree 1 tab PO Q8H PRN 05/31/22 06/04/22 History 10-325] Melatonin 5 mg PO HS 05/31/22 06/04/22 History Mirtazapine [Remeron] 30 mg PO HS 05/31/22 06/04/22 History Nitroglycerin Sl Tabs 0.3mg 0.3 mg SL Q5M PRN 05/31/22 06/04/22 History QUEtiapine [SEROquel] 150 mg PO HS 05/31/22 06/04/22 History hydrALAZINE HCL [Apresoline] 100 mg PO TID 05/31/22 06/04/22 History Allergies Allergy/AdvReac Type Severity Reaction Status Date / Time lisinopril Allergy Angioedema., Verified 06/04/22 06:10 swollen testicle, rash Physical Exam Vitals: Vital Signs Temp Pulse Resp BP Pulse Ox 06/04/22 07:55 81 16 178/80 99 06/04/22 06:37 82 06/04/22 06:31 86 06/04/22 06:26 86 18 172/80 98 06/04/22 04:42 98.4 F 92 22 183/85 99 Intake and Output 06/03/22 06/04/22 06/04/22 22:59 06:59 14:59 Output Total 800 Balance -800 Output: Urine 800 Other: # Voids 1 Weight 47.627 kg PHYSICAL EXAMINATION General: The patient is awake and alert, in no distress, and does not appear acutely ill. Skin: Skin is warm and dry and no rashes or lesions are noted. Eye: Pupils are equal, round and reactive to light, extra-ocular movements are intact; there is normal conjunctiva bilaterally. Ears, nose, mouth and throat: There are moist mucous membranes and no oral lesions. Neck: The neck is supple, there is no tenderness or JVD. Cardiovascular: There is regular rate and rhythm. No murmur, rub or gallop is appreciated. Respiratory: Lungs are clear to auscultation, respirations are non-labored, breath sounds are equal. Gastrointestinal: Soft, non-distended, non-tender abdomen without masses or organomegaly noted. There is no rebound or guarding present. Bowel sounds are unremarkable. Back: There is no tenderness to palpation in the midline. There is no obvious deformity. Musculoskeletal: Normal ROM, no tenderness, There is no pedal edema. There is no calf tenderness or swelling. Extremities: Moderate bilateral pitting edema Vascular: Femoral pulse is normal. Posterior tibial pulses are normal .Dorsalis pedis is palpable. Neurological: CN II-XII intact. There are no obvious motor or sensory deficits. Speech is normal. Psychiatric: Cooperative, appropriate mood & affect, normal judgment Results 06/04/22 05:30 06/04/22 05:30 Cardiac Enzymes 06/04/22 06/04/22 06/04/22 Range/Units 05:30 05:30 07:48 AST 28 (17-59) U/L Troponin I 0.077 H* 0.069 H* (0.000-0.034) ng/mL Coagulation 06/04/22 Range/Units 05:30 PT 10.3 (9.0-12.0) sec APTT 23.7 (22.0-30.0) sec CBC 06/04/22 Range/Units 05:30 WBC 8.9 (3.8-10.6) k/uL RBC 2.56 L (4.30-5.90) m/uL Hgb 8.5 L (13.0-17.5) gm/dL Hct 27.1 L (39.0-53.0) % Plt Count 220 (150-450) k/uL Comprehensive Metabolic Panel 06/04/22 Range/Units 05:30 Sodium 135 L (137-145) mmol/L Potassium 3.4 L (3.5-5.1) mmol/L Chloride 104 (98-107) mmol/L Carbon Dioxide 27 (22-30) mmol/L BUN 37 H (9-20) mg/dL Creatinine 2.36 H (0.66-1.25) mg/dL Glucose 120 H (74-99) mg/dL Calcium 7.6 L (8.4-10.2) mg/dL AST 28 (17-59) U/L ALT 20 (4-49) U/L Alkaline Phosphatase 57 (38-126) U/L Total Protein 4.7 L (6.3-8.2) g/dL Albumin 2.4 L (3.5-5.0) g/dL Current Medications Generic Name Dose Route Start Last Admin Trade Name Freq PRN Reason Stop Dose Admin Acetaminophen 650 mg 06/04/22 09:22 Acetaminophen Tab 325 Mg Tab PO Q6HR PRN Mild Pain or Fever > 100.5 Hydrocodone Bitart/Acetaminophen 1 each 06/04/22 09:21 06/04/22 10:09 Hydrocodone/Apap 10-325mg 1 Each Tab PO 1 each Q8H PRN Administration Pain Albuterol/Ipratropium 3 ml 06/04/22 05:57 06/04/22 06:30 Ipratropium-Albuterol 3 Ml Neb INHALATION 3 ml RT-QID PRN Administration Shortness Of Breath Or Wheezing Amiodarone HCl 200 mg 06/04/22 09:30 06/04/22 10:09 Amiodarone 200 Mg Tab PO 200 mg BID SUMMER Administration Atorvastatin Calcium 20 mg 06/04/22 21:00 Atorvastatin 20 Mg Tab PO HS SUMMER Budesonide/Formoterol Fumarate 2 puff 06/04/22 20:00 Symbicort 80-4.5 Mcg Inhaler INHALATION RT-BID SUMMER Carvedilol 12.5 mg 06/04/22 09:30 06/04/22 10:09 Carvedilol 12.5 Mg Tab PO 12.5 mg AC-BID SUMMER Administration Enoxaparin Sodium 40 mg 06/05/22 09:00 Enoxaparin 40 Mg/0.4 Ml Syringe SQ DAILY SUMMER Famotidine 20 mg 06/04/22 09:30 06/04/22 10:09 Famotidine 20 Mg Tab PO 20 mg DAILY SUMMER Administration Furosemide 40 mg 06/04/22 06:00 06/04/22 06:26 Furosemide 10 Mg/Ml 4 Ml Vial IV Not Given Q12H SUMMER Hydralazine HCl 100 mg 06/04/22 16:00 Hydralazine Hcl 50 Mg Tab PO TID SUMMER Losartan Potassium 50 mg 06/04/22 09:30 06/04/22 10:09 Losartan 50 Mg Tab PO 50 mg DAILY SUMMER Administration Melatonin 5 mg 06/04/22 21:00 Melatonin 5 Mg Tablet PO HS SUMMER Mirtazapine 30 mg 06/04/22 21:00 Mirtazapine 15 Mg Tab PO HS SUMMER Morphine Sulfate 4 mg 06/04/22 06:58 06/04/22 07:09 Morphine Sulfate 4 Mg/Ml Syringe IVP 4 mg Q6HR PRN Administration Pain Multivitamins 1 each 06/05/22 09:00 Multivitamins, Thera 1 Each Tab PO DAILY SUMMER Naloxone HCl 0.2 mg 06/04/22 09:22 Naloxone 0.4 Mg/Ml 1 Ml Vial IV Q2M PRN Opioid Reversal Nicotine Polacrilex 4 mg 06/04/22 09:22 Nicotine Gum (Polacrilex) 2 Mg Gum BUCCAL Q2HR PRN Nicotine Cravings Nitroglycerin 1 inch 06/04/22 09:00 06/04/22 10:08 Nitroglycerin Oint 1 Inch/Gm Packet TOPICAL 1 inch QID SUMMER Administration Quetiapine Fumarate 150 mg 06/04/22 21:00 Quetiapine 50 Mg Tab PO HS SUMMER Tamsulosin HCl 0.4 mg 06/04/22 09:30 06/04/22 10:08 Tamsulosin 0.4 Mg Cap.Er.24h PO 0.4 mg DAILY SUMMER Administration Intake and Output 06/03/22 06/04/22 06/04/22 22:59 06:59 14:59 Output Total 800 Balance -800 Output: Urine 800 Other: # Voids 1 Weight 47.627 kg 06/04/22 05:30 06/04/22 05:30 Assessment and Plan Assessment: Acute on chronic systolic congestive heart failure Bilateral lower extremity edema Positive troponin secondary to chronic kidney disease Hypokalemia Nonischemic cardiomyopathy Chronic kidney failure COPD Plan: continue with IV Lasix 40 mg twice a day Will obtain and review Limited 2-D echocardiogram Continue with all other current cardiac medications Supplement potassium Further recommendations based on clinical course The above impression and plan of care have been discussed and directed by the s igning physician. Rachael Schroeder, nurse practitioner, acting as scribe for signing physician.
--- NOTE | 2022-06-04 13:09 | CA ---
Transthoracic Echo Report Name: Rey Child Age: 71 Gender: M : 1950 Exam Date: 06/04/2022 12:04 Exam Location: [place] [facility] Ht (in): 67 Wt (lb): 105 Ordering Physician: Rachael Schroeder Attending/Referring Phys: Sock Lining Examiner Kat Jaquez RDCS Procedure CPT: Indications: chf Cardiac Hx: Technical Quality: Fair Contrast 1: Total Dose (mL): Contrast 2: Total Dose (mL): MEASUREMENTS (Male / Female) Normal Values FINDINGS Left Ventricle Normal left ventricular systolic function with no obvious regional wall motion abnormalities. Left ventricular ejection fraction is estimated at 55-60 %. Right Ventricle Right Atrium Left Atrium Mitral Valve Aortic Valve Tricuspid Valve Pulmonic Valve Pericardium Minimal pericardial effusion Aorta CONCLUSIONS Normal LV systolic function minimal pericardial effusion limited views Previewed by: Dr. Kenneth Bethea MD (Electronically Signed) Final Date: 04 June 2022 13:09
[2022-06-04 14:25] VITALS: BMI 16.4
[2022-06-04] MEDS: hydrALAZINE HCL 50 MG TAB PO SCH ×2 (16:22→21:33)
[2022-06-04] MEDS: SYMBICORT 80-4.5 MCG INHALER INHALATION SCH (20:25)
[2022-06-04] MEDS ORDERED: ATORVASTATIN 20 MG TAB PO SCH (21:00)
[2022-06-04] MEDS ORDERED: QUEtiapine 50 MG TAB PO SCH (21:00)
[2022-06-04] MEDS ORDERED: MIRTAZAPINE 15 MG TAB PO SCH (21:00)
[2022-06-04] MEDS ORDERED: MELATONIN 5 MG TABLET PO SCH (21:00)
[2022-06-05] MEDS: NITROGLYCERIN OINT 1 INCH/GM PACKET TOPICAL SCH ×3 (00:11→14:42)
[2022-06-05 04:21] VITALS: RESP 18
[2022-06-05] MEDS: FUROSEMIDE 10 MG/ML 4 ML VIAL IV SCH (06:02)
[2022-06-05] MEDS: carvediloL 12.5 MG TAB PO SCH (06:42)
[2022-06-05] MEDS: HYDROcodone/APAP 10-325MG 1 EACH TAB PO PRN (06:47)
[2022-06-05 07:38] LABS: Anisocytosis Moderate; HCT 27.7 % (39.0-53.0); HGB 8.9 gm/dL (13.0-17.5); Hypochromasia Moderate; MCHC 31.9 g/dL (31.0-37.0); MCV 109.5 fL (80.0-100.0); Mean Platelet Volume 7.8; Platelet Count 228 k/uL (150-450); RBC 2.53 m/uL (4.30-5.90); RDW 20.6 % (11.5-15.5); WBC 7.4 k/uL (3.8-10.6)
[2022-06-05 07:50] LABS: Macrocytosis Marked
[2022-06-05] MEDS: IPRATROPIUM-ALBUTEROL 3 ML NEB INHALATION PRN (08:06)
[2022-06-05] MEDS: SYMBICORT 80-4.5 MCG INHALER INHALATION SCH (08:07)
[2022-06-05 08:14] LABS: Albumin 2.4 g/dL (3.5-5.0); Calcium 7.6 mg/dL (8.4-10.2); Magnesium 2.1 mg/dL (1.6-2.3); Phosphorus 4.6 mg/dL (2.5-4.5); Potassium 3.7 mmol/L (3.5-5.1); Total Bilirubin 0.1 mg/dL (0.2-1.3); Total Protein 4.5 g/dL (6.3-8.2)
[2022-06-05] MEDS: TAMSULOSIN 0.4 MG CAP.ER.24H PO SCH (08:55)
[2022-06-05] MEDS: FAMOTIDINE 20 MG TAB PO SCH (08:55)
[2022-06-05] MEDS: AMIODARONE 200 MG TAB PO SCH (08:55)
[2022-06-05] MEDS: hydrALAZINE HCL 50 MG TAB PO SCH (08:55)
[2022-06-05] MEDS: LOSARTAN 50 MG TAB PO SCH (08:55)
[2022-06-05] MEDS ORDERED: MULTIVITAMINS, THERA 1 EACH TAB PO SCH (09:00)
[2022-06-05] MEDS ORDERED: ENOXAPARIN 40 MG/0.4 ML SYRINGE SQ SCH (09:00)
[2022-06-05 09:16] VITALS: TEMP 98
[2022-06-05 11:45] LABS: % Iron Saturation 18.34 (15.00-50.00)
[2022-06-05] MEDS ORDERED: HYDROmorphone 1 MG/ML 1 ML SYRINGE IVP STA (12:23)
--- NOTE | 2022-06-05 14:20 | P.DS ---
Providers Date of admission: 06/04/22 05:58 Expected date of discharge: 06/05/22 Attending physician: Arsen Christy MD Consults: 06/04/22 09:24 Consult Physician Routine Consulting Provider: Rashad Cardoso Consult Reason/Comments: chf Do you want consulting provider notified?: Yes Primary care physician: [facility] Course: Acute on chronic exacerbation of diastolic heart failure Elevated troponin secondary to heart failure CKD IV HTN, urgency on arrival Recent bladder Cancer COPD GERD Dyslipidemia Patient is a 71-year-old female history of hypertension, dyslipidemia, aborted cardiac , non ischemic cardiomyopathy with prior systolic dysfunction and last ejection fraction 50-55% in May 2022 who presented to the hospital with complaints of lower extremity edema. In the ER he underwent an extensive evaluation. On arrival he was slightly hypertensive. Laboratory analysis showed a hemoglobin of 8.5. Which does appear near his prior hemoglobin levels he was also noted to have positive troponin and a BNP of 41,700. Creatinine is elevated at 2.36 and appears near baseline. Chest x-ray demonstrated pulmonary interstitial fibrosis. He was diagnosed with acute exacerbation of congestive heart failure. He was started on Lasix. Arrangements are made for admission. Of note patient was hospitalized here from 05/31-06/01 for the same but left [facility] after he felt he could treat his lower extremity edema at home. Patient was treated with IV Lasix 40 mg twice a day. With this, his lower extremity edema completely resolved. Patient says that he felt back to baseline. He is tolerating the diet. He was counseled on fluid restriction to 2 L maximum daily. He was also counseled on taking weight daily. His Lasix was increased to 40 mg daily on discharge. He'll follow-up with PCP, cardiology, oncology. I spent 34 minutes coordinating this discharge. Gen: awake, alert HEENT: normocephalic, atraumatic, good hearing acuity, moist mucous membranes Resp: good air exchange, breathing comfortably with no accessory muscle use CVS: good distal perfusion x 4, GI: soft, NTTP, ND : no SPT, no CVAT, wynn catheter not present MSK: no pitting edema, no clubbing Neuro: non-focal, moving all extremities Psych: cooperative, euthymic mood Patient Condition at Discharge: Good Plan - Discharge Summary New Discharge Prescriptions: New Acetaminophen Tab [Tylenol] 650 mg PO Q6HR PRN tab PRN Reason: Mild Pain Or Fever > 100.5 Continue Tamsulosin [Flomax] 0.4 mg PO DAILY Multivitamins, Thera [Multivitamin (formulary)] 1 tab PO DAILY Famotidine [Pepcid] 20 mg PO BID carvediloL [Coreg*] 12.5 mg PO BID Atorvastatin Calcium [Lipitor] 20 mg PO HS Nitroglycerin Sl Tabs 0.3mg 0.3 mg SL Q5M PRN PRN Reason: Chest Pain hydrALAZINE HCL [Apresoline] 100 mg PO TID Mirtazapine [Remeron] 30 mg PO HS Losartan [Cozaar] 50 mg PO DAILY Amiodarone [Cordarone] 200 mg PO BID Fluticasone Propion/Salmeterol [Wixela 250-50 Inhub] 1 puff INHALATION RT-BID Melatonin 5 mg PO HS QUEtiapine [SEROquel] 150 mg PO HS HYDROcodone/APAP 10-325MG [Shirley 10-325] 1 tab PO Q8H PRN #9 tab PRN Reason: Pain Changed Furosemide [Lasix] 40 mg PO DAILY #60 tab Discharge Medication List Tamsulosin [Flomax] 0.4 mg PO DAILY 06/04/16 [History] Famotidine [Pepcid] 20 mg PO BID 06/08/20 [History] Multivitamins, Thera [Multivitamin (formulary)] 1 tab PO DAILY 06/08/20 [History] carvediloL [Coreg*] 12.5 mg PO BID 10/21/20 [History] Atorvastatin Calcium [Lipitor] 20 mg PO HS 06/24/21 [History] Losartan [Cozaar] 50 mg PO DAILY 06/24/21 [History] Amiodarone [Cordarone] 200 mg PO BID 06/25/21 [History] Fluticasone Propion/Salmeterol [Wixela 250-50 Inhub] 1 puff INHALATION RT-BID 08/27/21 [History] Melatonin 5 mg PO HS 05/31/22 [History] Mirtazapine [Remeron] 30 mg PO HS 05/31/22 [History] Nitroglycerin Sl Tabs 0.3mg 0.3 mg SL Q5M PRN 05/31/22 [History] QUEtiapine [SEROquel] 150 mg PO HS 05/31/22 [History] hydrALAZINE HCL [Apresoline] 100 mg PO TID 05/31/22 [History] Acetaminophen Tab [Tylenol] 650 mg PO Q6HR PRN tab 06/05/22 [Rx] Furosemide [Lasix] 40 mg PO DAILY #60 tab 06/05/22 [Rx] HYDROcodone/APAP 10-325MG [Shirley 10-325] 1 tab PO Q8H PRN #9 tab 06/05/22 [Rx] Follow up Appointment(s)/Referral(s): [facility],Clinic [Primary Care Provider] - 1-2 days Discharge Disposition: HOME SELF-CARE
[2022-06-05 15:52] VITALS: BP 134/77; PULSE 80
[2022-06-06] MEDS ORDERED: ENOXAPARIN 30 MG/0.3 ML SYRINGE SQ SCH (09:00)
== END 2022-06-05 15:27 | disposition home or self-care (01) ==
LOC: EC 04:33 → 6NMEDSUR 05:58 → 3SCARD 07:00
PROVIDERS: ADMIT Internal Medicine; ATTEND Internal Medicine
DX: I13.0 Hypertensive heart and chronic kidney disease with heart failure and stage 1 through stage 4 chronic kidney disease, or unspecified chronic kidney disease (principal); N18.4 Chronic kidney disease, stage 4 (severe); I50.43 Acute on chronic combined systolic (congestive) and diastolic (congestive) heart failure; I16.0 Hypertensive urgency; K21.9 Gastro-esophageal reflux disease without esophagitis; J44.9 Chronic obstructive pulmonary disease, unspecified; E78.5 Hyperlipidemia, unspecified; N40.0 Benign prostatic hyperplasia without lower urinary tract symptoms; F41.9 Anxiety disorder, unspecified; F17.200 Nicotine dependence, unspecified, uncomplicated; J84.10 Pulmonary fibrosis, unspecified; I42.8 Other cardiomyopathies; D64.9 Anemia, unspecified; E87.6 Hypokalemia; Z88.8 Allergy status to other drugs, medicaments and biological substances; Z79.899 Other long term (current) drug therapy; Z86.74 Personal history of sudden cardiac arrest; Z80.3 Family history of malignant neoplasm of breast; Z80.6 Family history of leukemia; Z80.7 Family history of other malignant neoplasms of lymphoid, hematopoietic and related tissues; Z82.5 Family history of asthma and other chronic lower respiratory diseases; Z82.41 Family history of sudden cardiac death; Z85.51 Personal history of malignant neoplasm of bladder; Z92.3 Personal history of irradiation; Z92.21 Personal history of antineoplastic chemotherapy
CPT/HCPCS: 96376 ×2; 96372; 96374; 96375; 99285; 36415; 94640 ×3; 93308; 82747; 83880; 80053 ×2; 82607; 82728; 83540; 83550; 83735 ×2; 84100 ×2; 84484; 85025; 85027; 85610; 85730; 71045; G0378 ×2; J2270; J0360; J1940 ×3; J1650

== ENCOUNTER 2022-06-11 01:21 | Inpatient (IN) | payer OTHER, MEDICARE ==
[2022-06-11] MEDS ORDERED: MORPHINE SULFATE 4 MG/ML SYRINGE IVP STA (02:00)
[2022-06-11] MEDS ORDERED: FUROSEMIDE 10 MG/ML 4 ML VIAL IV STA (02:01)
[2022-06-11] MEDS ORDERED: FUROSEMIDE 10 MG/ML 10 ML VIAL IV STA (02:02)
--- NOTE | 2022-06-11 02:16 | ED ---
SOB HPI - General Chief Complaint: Shortness of Breath Stated Complaint: VÍCTOR Time Seen by Provider: 06/11/22 01:30 Source: patient Mode of arrival: wheelchair Limitations: no limitations - History of Present Illness Initial Comments: This patient is 72-year-old man who presents here to have evaluation man with shortness of breath, but he is also having chest pain and leg swelling. Patient states that he noticed the leg edema first. This is been going on for a couple weeks getting progressively worse. He also has had some shortness of breath going back a few days. He has been having progressively worse orthopnea. The patient had tried sleep tonight but then woke up very short of breath. He also is having chest tightness. He has not noted fever or chills. No no cough. He was feeling hot and sweaty tonight. MD Complaint: shortness of breath, chest pain -: days(s) Consistency: constant Improves With: upright position Worsens With: lying flat Known History Of: COPD Associated Symptoms: chest pain, diaphoresis - Related Data Home Medications Medication Instructions Recorded Confirmed Tamsulosin [Flomax] 0.4 mg PO DAILY 06/04/16 06/04/22 Famotidine [Pepcid] 20 mg PO BID 06/08/20 06/04/22 Multivitamins, Thera [Multivitamin 1 tab PO DAILY 06/08/20 06/04/22 (formulary)] carvediloL [Coreg*] 12.5 mg PO BID 10/21/20 06/04/22 Atorvastatin Calcium [Lipitor] 20 mg PO HS 06/24/21 06/04/22 Losartan [Cozaar] 50 mg PO DAILY 06/24/21 06/04/22 Amiodarone [Cordarone] 200 mg PO BID 06/25/21 06/04/22 Fluticasone Propion/Salmeterol 1 puff INHALATION RT-BID 08/27/21 06/04/22 [Wixela 250-50 Inhub] Melatonin 5 mg PO HS 05/31/22 06/04/22 Mirtazapine [Remeron] 30 mg PO HS 05/31/22 06/04/22 Nitroglycerin Sl Tabs 0.3mg 0.3 mg SL Q5M PRN 05/31/22 06/04/22 QUEtiapine [SEROquel] 150 mg PO HS 05/31/22 06/04/22 hydrALAZINE HCL [Apresoline] 100 mg PO TID 05/31/22 06/04/22 Previous Rx's Medication Instructions Recorded Acetaminophen Tab [Tylenol] 650 mg PO Q6HR PRN tab 06/05/22 Furosemide [Lasix] 40 mg PO DAILY #60 tab 06/05/22 HYDROcodone/APAP 10-325MG [Nunn 1 tab PO Q8H PRN #9 tab 06/05/22 10-325] Allergies Allergy/AdvReac Type Severity Reaction Status Date / Time lisinopril Allergy Angioedema., Verified 06/11/22 01:24 swollen testicle, rash Review of Systems ROS Statement: Those systems with pertinent positive or pertinent negative responses have been documented in the HPI. ROS Other: All systems not noted in ROS Statement are negative. Past Medical History Past Medical History: Cancer, Heart Failure, COPD, GERD/Reflux, Hyperlipidemia, Hypertension, Prostate Disorder, Renal Disease Additional Past Medical History / Comment(s): cancerous polyp with bowel resec tion (2014)., BPH., HEMORRHOIDS, RLS., cardiac arrest in September 2020., stage 4 kidney disease, lower back pain, anemia, Bladder cancer History of Any Multi-Drug Resistant Organisms: None Reported Past Surgical History: Appendectomy, Bowel Resection, Heart Catheterization, Orthopedic Surgery Additional Past Surgical History / Comment(s): ACL SX RT KNEE X3, LEFT HEEL FUSION, LEFT ARM BICEP SX, NASAL SX R/T ULCER, colon resection, COLONOSCOPY, HEART CATH (09/2020) Past Anesthesia/Blood Transfusion Reactions: No Reported Reaction Past Psychological History: Anxiety Smoking Status: Current every day smoker Past Alcohol Use History: None Reported Past Drug Use History: None Reported - Past Family History Mother Family Medical History: Cancer Additional Family Medical History / Comment(s): BREAST Sister(s) Family Medical History: Deep Vein Thrombosis (DVT) Additional Family Medical History / Comment(s): 1 sister had leukemia, and another sister had non hodgkins. Father Family Medical History: COPD Additional Family Medical History / Comment(s): FROM CARDIAC ARREST General Exam Limitations: no limitations Course Vital Signs 06/11/22 06/11/22 06/11/22 01:24 01:40 01:50 Temperature 97.8 F Pulse Rate 117 H Respiratory 24 Rate Blood Pressure 226/119 244/133 210/112 O2 Sat by Pulse 93 L 89 L 99 Oximetry Fraction of Inspired Oxygen (FIO2) 06/11/22 06/11/22 06/11/22 01:54 01:56 01:59 Temperature Pulse Rate Respiratory Rate Blood Pressure 184/110 156/110 O2 Sat by Pulse Oximetry Fraction of 40 Inspired Oxygen (FIO2) 06/11/22 06/11/22 06/11/22 02:00 02:04 02:07 Temperature Pulse Rate Respiratory Rate Blood Pressure 138/102 140/110 179/119 O2 Sat by Pulse 99 Oximetry Fraction of Inspired Oxygen (FIO2) 06/11/22 06/11/22 06/11/22 02:10 02:20 02:30 Temperature Pulse Rate 109 H 104 H Respiratory 21 Rate Blood Pressure 179/117 195/123 192/104 O2 Sat by Pulse 99 100 Oximetry Fraction of Inspired Oxygen (FIO2) Disposition Referrals: [facility],Clinic [Primary Care Provider] - 1-2 days
[2022-06-11] MEDS ORDERED: NITROGLYCERIN-D5W PMX 50 MG in DEXTROSE/WATER 1 250ML.BAG IV ONE (02:31)
--- NOTE | 2022-06-11 03:05 | P.HPIM ---
History of Present Illness H&P Date: 06/11/22 The patient is a 72-year-old male with a PMH of significant tobacco abuse, chronic kidney disease, nonischemic cardiomyopathy, hypertension, hyperlipidemia, presents to the emergency room with complaints of shortness of breath and lower extremity edema. The history supplemented by the at the bedside. Patient reports that over the past 3 days, he has developed gradually worsening shortness of breath with orthopnea, PND, and lower extremity edema. The patient reports he is now sleeping upright due to worsening orthopnea and wakes up 3-4 times per night catching his breath. He reports compliance with his Lasix and fluid restriction at home. Reports that his breathing had gotten so bad that he wasn't sure that he would make it back into the hospital. The patient's BP at time of evaluation was elevated to 192/102. In the emergency room, patient underwent an extensive evaluation with chest x-ray showing pulmonary edema, suspicious for acute CHF. Laboratory evaluation was remarkable for potassium 3.4 troponin 0.072 creatinine 2.54. Of note, the patient was recently admitted for for similar complaints at which time he was treated for diastolic CHF exacerbation. The patient continues to smoke cigarettes daily. Review of systems: Pertinent positives and negatives as discussed in HPI, a complete review of systems was performed and all other systems are negative. Physical examination: General: Elderly male in acute respiratory distress, on BiPAP, appears at stated age, normal weight Derm: no unusual rashes/lesions, warm Head: atraumatic, normocephalic, symmetric Eyes: EOMI, no lid lag, anicteric sclera, pupils equal round reactive to light ENT: Nose and ears atraumatic Neck: No cervical lymphadenopathy, trachea midline, supple Mouth: no lip lesion, mucus membranes moist Cardiovascular: S1S2 reg, no murmur, positive dorsalis pedis pulse bilateral, no edema Lungs: Bibasilar rales to mid lung knowles, no accessory muscle use Abdominal: soft, nontender to palpation, no guarding Ext: muscle strength 5 out of 5 in all 4 extremities grossly, no gross muscle atrophy, no contractures, digital clubbing noted Neuro: CN II-XI grossly intact, no gross focal neuro deficits Psych: Alert, oriented, appropriate affect Assessment/plan Acute CHF exacerbation -Continue nitroglycerin infusion -Status post Lasix 80 mg IV push in the emergency room. -Continue with Lasix 40 mg IV every 12 hourly -Cardiology consulted -Cardiac monitoring -Daily weights, and fluid restriction -Intake and output -Monitor electrolytes Hypertensive urgency -Continue nitroglycerin. Elevated troponin, likely due to acute CHF exacerbation -Monitor for now Hypokalemia -Replace and monitor Chronic conditions: Hypertension, hyperlipidemia -Continue with home meds DVT prophylaxis -Heparin subcu The patient is admitted with an anticipated greater than 2 midnight stay for evaluation of acute CHF exacerbation. CODE STATUS: Full Code Discussed with: Patient Anticipated discharge date: 06/[address]: Home Past Medical History Past Medical History: Cancer, Heart Failure, COPD, GERD/Reflux, Hyperlipidemia, Hypertension, Prostate Disorder, Renal Disease Additional Past Medical History / Comment(s): cancerous polyp with bowel resection (2014)., BPH., HEMORRHOIDS, RLS., cardiac arrest in September 2020., stage 4 kidney disease, lower back pain, anemia, Bladder cancer History of Any Multi-Drug Resistant Organisms: None Reported Past Surgical History: Appendectomy, Bowel Resection, Heart Catheterization, Orthopedic Surgery Additional Past Surgical History / Comment(s): ACL SX RT KNEE X3, LEFT HEEL FUSION, LEFT ARM BICEP SX, NASAL SX R/T ULCER, colon resection, COLONOSCOPY, HEART CATH (09/2020) Past Anesthesia/Blood Transfusion Reactions: No Reported Reaction Past Psychological History: Anxiety Smoking Status: Current every day smoker Past Alcohol Use History: None Reported Past Drug Use History: None Reported - Past Family History Mother Family Medical History: Cancer Additional Family Medical History / Comment(s): BREAST Sister(s) Family Medical History: Deep Vein Thrombosis (DVT) Additional Family Medical History / Comment(s): 1 sister had leukemia, and another sister had non hodgkins. Father Family Medical History: COPD Additional Family Medical History / Comment(s): FROM CARDIAC ARREST Medications and Allergies Home Medications Medication Instructions Recorded Confirmed Type Tamsulosin [Flomax] 0.4 mg PO DAILY 06/04/16 06/04/22 History Famotidine [Pepcid] 20 mg PO BID 06/08/20 06/04/22 History Multivitamins, Thera [Multivitamin 1 tab PO DAILY 06/08/20 06/04/22 History (formulary)] carvediloL [Coreg*] 12.5 mg PO BID 10/21/20 06/04/22 History Atorvastatin Calcium [Lipitor] 20 mg PO HS 06/24/21 06/04/22 History Losartan [Cozaar] 50 mg PO DAILY 06/24/21 06/04/22 History Amiodarone [Cordarone] 200 mg PO BID 06/25/21 06/04/22 History Fluticasone Propion/Salmeterol 1 puff INHALATION RT-BID 08/27/21 06/04/22 History [Wixela 250-50 Inhub] Melatonin 5 mg PO HS 05/31/22 06/04/22 History Mirtazapine [Remeron] 30 mg PO HS 05/31/22 06/04/22 History Nitroglycerin Sl Tabs 0.3mg 0.3 mg SL Q5M PRN 05/31/22 06/04/22 History QUEtiapine [SEROquel] 150 mg PO HS 05/31/22 06/04/22 History hydrALAZINE HCL [Apresoline] 100 mg PO TID 05/31/22 06/04/22 History Acetaminophen Tab [Tylenol] 650 mg PO Q6HR PRN tab 06/05/22 Rx Furosemide [Lasix] 40 mg PO DAILY #60 tab 06/05/22 Rx HYDROcodone/APAP 10-325MG [[place] 1 tab PO Q8H PRN #9 tab 06/05/22 Rx 10-325] Allergies Allergy/AdvReac Type Severity Reaction Status Date / Time lisinopril Allergy Angioedema., Verified 06/11/22 01:24 swollen testicle, rash Physical Exam Vitals: Vital Signs Temp Pulse Resp BP Pulse Ox FiO2 06/11/22 02:30 104 H 192/104 06/11/22 02:20 109 H 21 195/123 100 06/11/22 02:10 179/117 99 06/11/22 02:07 179/119 06/11/22 02:04 140/110 06/11/22 02:00 138/102 99 06/11/22 01:59 40 06/11/22 01:56 156/110 06/11/22 01:54 184/110 06/11/22 01:50 210/112 99 06/11/22 01:40 244/133 89 L 06/11/22 01:24 97.8 F 117 H 24 226/119 93 L Intake and Output 06/10/22 06/10/22 06/11/22 14:59 22:59 06:59 Intake Total 3.25 Balance 3.25 Intake: Intake, IV Titration 3.25 Amount Nitroglycerin-D5w Pmx 50 3.25 mg In Dextrose/Water 1 250ml.bag @ 50 MCG/MIN 15 mls/hr IV .[id number] ONE Rx#:[id number] Other: Weight 57.425 kg Results CBC & Chem 7: 06/11/22 02:33 06/11/22 02:33
--- NOTE | 2022-06-11 03:10 | XR ---
EXAMINATION TYPE: XR chest 1V portable DATE OF EXAM: 06/11/2022 COMPARISON: 06/04/2022 HISTORY: Chest pain TECHNIQUE: Single view FINDINGS: There is pulmonary interstitial and airspace edema. Heart is top normal in size. There is s light blunting of the right costophrenic angle. There are chest leads. IMPRESSION: There is pulmonary edema. There is small right pleural effusion. Interstitial density inc reased compared to old exam and this could be acute heart failure superimposed on fibrosis.
[2022-06-11] MEDS: FUROSEMIDE 10 MG/ML 4 ML VIAL IV SCH ×2 (03:11→15:27)
[2022-06-11 03:26] LABS: Anisocytosis Slight; Basophils # (A) 0.1 k/uL (0-0.2); Basophils % (A) 1 %; Eosinophils # (A) 0.2 k/uL (0-0.7); Eosinophils % (A) 3 %; HCT 35.7 % (39.0-53.0); HGB 11.4 gm/dL (13.0-17.5); Hypochromasia Slight; Lymphocytes # (A) 0.9 k/uL (1.0-4.8); Lymphocytes % (A) 9 %; MCH 35.3 pg (25.0-35.0); MCHC 31.9 g/dL (31.0-37.0); Macrocytosis Marked; Mean Platelet Volume 7.7; Monocytes # (A) 0.5 k/uL (0-1.0); Monocytes % (A) 5 %; Neutrophils # (A) 7.8 k/uL (1.3-7.7); Neutrophils % (A) 82 %; Platelet Count 434 k/uL (150-450); RBC 3.23 m/uL (4.30-5.90); RDW 19.5 % (11.5-15.5); WBC 9.6 k/uL (3.8-10.6)
[2022-06-11 03:28] LABS: MCV 110.7 fL (80.0-100.0)
[2022-06-11 03:31] LABS: Albumin 3.9 g/dL (3.5-5.0); Calcium 8.7 mg/dL (8.4-10.2); Potassium 3.4 mmol/L (3.5-5.1); Total Bilirubin 0.3 mg/dL (0.2-1.3)
[2022-06-11 03:36] LABS: INR 0.9 (<1.2); Partial Thromboplastin Time 24.7 sec (22.0-30.0); Prothrombin Time 9.8 sec (9.0-12.0)
[2022-06-11] MEDS ORDERED: POTASSIUM CHLORIDE ER 20 MEQ TAB.ER PO STA (06:10)
[2022-06-11 07:51] LABS: Albumin 2.9 g/dL (3.5-5.0); Calcium 7.8 mg/dL (8.4-10.2); Magnesium 1.9 mg/dL (1.6-2.3); Potassium 3.1 mmol/L (3.5-5.1); Total Bilirubin 0.2 mg/dL (0.2-1.3); Total Protein 5.3 g/dL (6.3-8.2)
[2022-06-11 07:55] LABS: Anisocytosis Slight; HCT 26.1 % (39.0-53.0); HGB 8.1 gm/dL (13.0-17.5); Hypochromasia Slight; MCH 34.6 pg (25.0-35.0); MCHC 31.1 g/dL (31.0-37.0); MCV 111.2 fL (80.0-100.0); Macrocytosis Marked; Mean Platelet Volume 8.1; Platelet Count 291 k/uL (150-450); RBC 2.35 m/uL (4.30-5.90); RDW 19.6 % (11.5-15.5); WBC 10.3 k/uL (3.8-10.6)
[2022-06-11] MEDS ORDERED: carvediloL 12.5 MG TAB PO SCH (08:00)
[2022-06-11] MEDS: LOSARTAN 50 MG TAB PO SCH (08:19)
[2022-06-11] MEDS: AMIODARONE 200 MG TAB PO SCH ×2 (08:19→21:29)
[2022-06-11] MEDS: hydrALAZINE HCL 50 MG TAB PO SCH ×2 (08:19→15:28)
[2022-06-11] MEDS: HEPARIN SODIUM,PORCINE/PF 5,000 UNIT/0.5 ML SYRINGE SQ SCH ×3 (08:20→23:27)
[2022-06-11] MEDS: TAMSULOSIN 0.4 MG CAP.ER.24H PO SCH (08:23)
[2022-06-11] MEDS ORDERED: FAMOTIDINE 20 MG TAB PO SCH (09:00)
[2022-06-11] MEDS: SODIUM CHLORIDE 0.9% 1,000 ML IV SCH (10:19)
--- NOTE | 2022-06-11 11:09 | P.CRDCN ---
History of Present Illness History of present illness: This is a pleasant 71-year-old male past medical history significant for mild nonobstructive CAD, nonischemic cardiomyopathy, chronic kidney disease, seizure disorder, hypertension, dyslipidemia, chronic tobacco use, history of colon cancer s/p right hemicolectomy in 2017, history of cardiac arrest with ventricular tachycardia in 09/2020. He follows in the office with Dr. Cardoso. We have been asked to see in consultation for congestive heart failure. Patient presented to the ER with worsening shortness of breath, orthopnea and PND. He states that he was at his outpatient appointment and had increased shortness of breath overnight. He was recently admitted with congestive heart failure and Diuresed with IV Lasix, he was stabilized and discharged home. He denies any worsening lower extremity edema. He denies any lightheadedness, dizziness, palpitations. He states he's been compliant with his medication and diet. DIAGNOSTICS * EKG sinus tachycardia, heart rate 120, nonspecific ST-T wave abnormalities. * Chest Xray pulmonary edema present. Small right pleural effusion. * Labs troponin 0.07, proBNP 115,000, WBC 10.3, hemoglobin 8.1, platelets 291, sodium 139, potassium 3.1, BUN 36, serum crit and 2.41 * Most recent cardiac catheterization 09/08/2020 revealed mild to moderate nonobstructive coronary artery disease involving the mid LAD. Elevated LV EDP. Nonischemic cardiomyopathy. Severe disease involving the right external iliac artery. * Lexiscan stress test in the office in 02/02/2022, was abnormal myocardial perfusion imaging evidence of reversible defect of moderate size and mild intensity involving the distal anterior/apical segment of the left ventricle. Medical therapy was decided between Dr. Cardoso in the patient secondary to his prognosis and recent diagnosis of bladder cancer. Coronary angiogram was considered if surgery is planned for the cancer. * Echocardiogram 06/01/2022 5055 % trace mitral regurgitation, mild aortic stenosis with peak/mean gradient of 14 mmHg/70 mmHg, small pericardial effusion. PHYSICAL EXAMINATION Vitals reviewed CONSTITUTIONAL: No apparent distress. HEENT: Head is normocephalic. Neck Supple. + JVD. No carotid bruit. CHEST EXAMINATION: Lungs are crackles in the bases to auscultation. No chest wall tenderness is noted on palpation or with deep breathing. HEART EXAMINATION: Regular rate and rhythm. S1, S2 heard. Systolic murmur noted. no gallops or rubs ABDOMEN: Soft, nontender. Positive bowel sounds. EXTREMITIES: 2+ peripheral pulses, mild to moderate non-pitting lower extremity edema and no calf tenderness. NEUROLOGIC EXAMINATION: Patient is awake, alert and oriented x3. ASSESSMENT Acute on chronic heart failure with preserved ejection fraction, possibly related to uncontrolled hypertension Bladder cancer Mild nonobstructive CAD Nonischemic cardiomyopathy, with improved EF Chronic kidney disease History of hypertension Dyslipidemia Chronic tobacco use History of colon cancer s/p right hemicolectomy in 2017 History of cardiac arrest with ventricular tachycardia in 09/2020 Mild aortic stenosis Hypokalemia, replaced PLAN Continue IV Lasix 40mg BID Increase Coreg 25mg BID Continue home statin, aspirin Continue Losartan, amiodarone Monitor I/Os daily weights, renal function and electrolytes Replace potassium per protocol Further recommendations based on clinical course Nurse Practitioner note has been reviewed, I agree with a documented findings and plan of care. Patient was seen and examined. Past Medical History Past Medical History: Cancer, Heart Failure, COPD, GERD/Reflux, Hyperlipidemia, Hypertension, Prostate Disorder, Renal Disease Additional Past Medical History / Comment(s): cancerous polyp with bowel res ection (2014)., BPH., HEMORRHOIDS, RLS., cardiac arrest in September 2020., stage 4 kidney disease, lower back pain, anemia, Bladder cancer History of Any Multi-Drug Resistant Organisms: None Reported Past Surgical History: Appendectomy, Bowel Resection, Heart Catheterization, Orthopedic Surgery Additional Past Surgical History / Comment(s): ACL SX RT KNEE X3, LEFT HEEL FUSION, LEFT ARM BICEP SX, NASAL SX R/T ULCER, colon resection, COLONOSCOPY, HEART CATH (09/2020) Past Anesthesia/Blood Transfusion Reactions: No Reported Reaction Past Psychological History: Anxiety Smoking Status: Current every day smoker Past Alcohol Use History: None Reported Past Drug Use History: None Reported - Past Family History Mother Family Medical History: Cancer Additional Family Medical History / Comment(s): BREAST Sister(s) Family Medical History: Deep Vein Thrombosis (DVT) Additional Family Medical History / Comment(s): 1 sister had leukemia, and another sister had non hodgkins. Father Family Medical History: COPD Additional Family Medical History / Comment(s): FROM CARDIAC ARREST Medications and Allergies Home Medications Medication Instructions Recorded Confirmed Type Tamsulosin [Flomax] 0.4 mg PO DAILY 06/04/16 06/11/22 History Famotidine [Pepcid] 20 mg PO BID 06/08/20 06/11/22 History Multivitamins, Thera [Multivitamin 1 tab PO DAILY 06/08/20 06/11/22 History (formulary)] carvediloL [Coreg*] 12.5 mg PO BID 10/21/20 06/11/22 History Atorvastatin Calcium [Lipitor] 20 mg PO HS 06/24/21 06/11/22 History Losartan [Cozaar] 50 mg PO DAILY 06/24/21 06/11/22 History Amiodarone [Cordarone] 200 mg PO BID 06/25/21 06/11/22 History Fluticasone Propion/Salmeterol 1 puff INHALATION RT-BID 08/27/21 06/11/22 History [Wixela 250-50 Inhub] Melatonin 5 mg PO HS 05/31/22 06/11/22 History Mirtazapine [Remeron] 30 mg PO HS 05/31/22 06/11/22 History Nitroglycerin Sl Tabs 0.3mg 0.3 mg SL Q5M PRN 05/31/22 06/11/22 History QUEtiapine [SEROquel] 150 mg PO HS 05/31/22 06/11/22 History hydrALAZINE HCL [Apresoline] 100 mg PO TID 05/31/22 06/11/22 History Acetaminophen Tab [Tylenol] 650 mg PO Q6HR PRN tab 06/05/22 06/11/22 Rx Furosemide [Lasix] 40 mg PO DAILY #60 tab 06/05/22 06/11/22 Rx HYDROcodone/APAP 10-325MG [[place] 1 tab PO Q8H PRN #9 tab 06/05/22 06/11/22 Rx 10-325] Allergies Allergy/AdvReac Type Severity Reaction Status Date / Time lisinopril Allergy Angioedema., Verified 06/11/22 07:53 swollen testicle, rash Physical Exam Vitals: Vital Signs Temp Pulse Resp BP Pulse Ox FiO2 06/11/22 07:14 40 06/11/22 04:19 40 06/11/22 03:56 92 18 172/87 99 06/11/22 03:20 107 H 189/97 98 06/11/22 03:10 96 191/102 97 06/11/22 03:00 96 196/106 97 06/11/22 02:50 106 H 191/107 98 06/11/22 02:40 105 H 192/92 99 06/11/22 02:30 104 H 192/104 06/11/22 02:20 109 H 21 195/123 100 06/11/22 02:10 179/117 99 06/11/22 02:07 179/119 06/11/22 02:04 140/110 06/11/22 02:00 138/102 99 06/11/22 01:59 40 06/11/22 01:56 156/110 06/11/22 01:54 184/110 06/11/22 01:50 210/112 99 06/11/22 01:40 244/133 89 L 06/11/22 01:24 97.8 F 117 H 24 226/119 93 L Intake and Output 06/10/22 06/11/22 06/11/22 22:59 06:59 14:59 Intake Total 33.75 Output Total 450 Balance -416.25 Intake: Intake, IV Titration 33.75 Amount Nitroglycerin-D5w Pmx 50 33.75 mg In Dextrose/Water 1 250ml.bag @ 50 MCG/MIN 15 mls/hr IV .[id number] ONE Rx#:[id number] Output: Urine 450 Other: Weight 57.425 kg Results 06/11/22 07:06 06/11/22 07:06 Cardiac Enzymes 06/11/22 06/11/22 Range/Units 02:33 02:33 AST 52 (17-59) U/L Troponin I 0.072 H* (0.000-0.034) ng/mL Coagulation 06/11/22 Range/Units 02:33 PT 9.8 (9.0-12.0) sec APTT 24.7 (22.0-30.0) sec CBC 06/11/22 Range/Units 02:33 WBC 9.6 (3.8-10.6) k/uL RBC 3.23 L (4.30-5.90) m/uL Hgb 11.4 L (13.0-17.5) gm/dL Hct 35.7 L (39.0-53.0) % Plt Count 434 (150-450) k/uL Comprehensive Metabolic Panel 06/11/22 Range/Units 02:33 Sodium 140 (137-145) mmol/L Potassium 3.4 L (3.5-5.1) mmol/L Chloride 106 (98-107) mmol/L Carbon Dioxide 26 (22-30) mmol/L BUN 34 H (9-20) mg/dL Creatinine 2.54 H (0.66-1.25) mg/dL Glucose 116 H (74-99) mg/dL Calcium 8.7 (8.4-10.2) mg/dL AST 52 (17-59) U/L ALT 50 H (4-49) U/L Alkaline Phosphatase 101 (38-126) U/L Total Protein 7.0 (6.3-8.2) g/dL Albumin 3.9 (3.5-5.0) g/dL Current Medications Generic Name Dose Route Start Last Admin Trade Name Freq PRN Reason Stop Dose Admin Furosemide 40 mg 06/11/22 03:15 06/11/22 03:11 Furosemide 10 Mg/Ml 4 Ml Vial IV Not Given Q12H [facility] Heparin Sodium (Porcine) 5,000 unit 06/11/22 08:00 Heparin Sodium,Porcine/Pf 5,000 Unit/0.5 Ml Syringe SQ Q8HR [facility] Nitroglycerin/Dextrose 50 mg/ 250 mls @ 15 mls/hr 06/11/22 02:31 06/11/22 03:08 IV Solution IV 06/11/22 19:10 120 mcg/min .[id number] ONE 36 mls/hr Titration Protocol 50 MCG/MIN Sodium Chloride 1,000 mls @ 20 mls/hr 06/11/22 04:15 Saline 0.9% IV .Q24H [facility] Intake and Output 06/10/22 06/11/22 06/11/22 22:59 06:59 14:59 Intake Total 33.75 Output Total 450 Balance -416.25 Intake: Intake, IV Titration 33.75 Amount Nitroglycerin-D5w Pmx 50 33.75 mg In Dextrose/Water 1 250ml.bag @ 50 MCG/MIN 15 mls/hr IV .[id number] ONE Rx#:[id number] Output: Urine 450 Other: Weight 57.425 kg 06/11/22 02:33 06/11/22 02:33
[2022-06-11] MEDS: HYDROcodone/APAP 10-325MG 1 EACH TAB PO PRN (16:55)
[2022-06-11] MEDS: carvediloL 12.5 MG TAB PO SCH (16:57)
--- NOTE | 2022-06-11 18:17 | P.PN ---
Progress Note - Text Progress Note Date: 06/11/22 Patient was seen. Reports improving shortness of breath and lower extremity swelling since admission. He denies any chest pain or palpitations. No nausea or vomiting. No fever or chills. Patient is in no acute distress. Nonlabored respirations. Acute CHF exacerbation -DC nitroglycerin infusion -Continue with Lasix 40 mg IV every 12 hourly -Echocardiogram ordered -Cardiology consulted -Cardiac monitoring -Daily weights, and fluid restriction -Intake and output -Monitor electrolytes Hypertensive urgency -Restart Coreg, Hydralazine, Losartan -Monitor vitals adjust medications if necessary Elevated troponin, likely due to acute CHF exacerbation -Monitor for now -Repeat Troponin ordered for tomorrow Hypokalemia -Replace and monitor Chronic conditions: Hyperlipidemia -Continue with home meds DVT prophylaxis -Heparin subcu The patient is admitted with an anticipated greater than 2 midnight stay for evaluation of acute CHF exacerbation. CODE STATUS: Full Code Discussed with: Patient Anticipated discharge date: 06/[address]: Home
[2022-06-11] MEDS ORDERED: POTASSIUM CHLORIDE 10 MEQ in WATER FOR INJECTION 1 100ML.BAG IVPB SCH (19:00)
[2022-06-11] MEDS ORDERED: MIRTAZAPINE 15 MG TAB PO SCH (21:00)
[2022-06-11] MEDS ORDERED: ATORVASTATIN 20 MG TAB PO SCH (21:00)
[2022-06-11] MEDS ORDERED: QUEtiapine 50 MG TAB PO SCH (21:00)
[2022-06-12] MEDS: HYDROcodone/APAP 10-325MG 1 EACH TAB PO PRN ×2 (04:07→11:57)
[2022-06-12] MEDS: hydrALAZINE HCL 50 MG TAB PO SCH ×3 (04:55→15:08)
[2022-06-12] MEDS: FUROSEMIDE 10 MG/ML 4 ML VIAL IV SCH (04:59)
[2022-06-12] MEDS: SODIUM CHLORIDE 0.9% 1,000 ML IV SCH (05:03)
--- NOTE | 2022-06-12 07:46 | P.PN ---
Subjective Progress Note Date: 06/12/22 Principal diagnosis: Heart failure with preserved ejection fraction This is a 72-year-old gentleman who is known to her service from before with history of coronary artery disease which is not obstructive as well as heart failure with preserved ejection fraction as well as history of nonischemic cardiomyopathy as well as multiple comorbid conditions was admitted to the hospital with increasing shortness of breath as well as increasing bilateral lower extremities edema. When he presented to the hospital to pressure was not under good control and we felt that his heart failure exacerbation is likely related to uncontrolled blood pressure. The patient was seen this morning. He stated that he is feeling better. The shortness of breath has improved. The edema in the lower extremities has improved as well. He has no chest pain or chest discomfort. He is hemodynamica lly stable. His pressure has improved significantly. The creatinine continues to be stable. I am going to DC Lasix IV and start the patient on Lasix by mouth. Continue the rest of the current medical regimen. The patient potentially can be discharged in the next 24 hours. Objective - Vital Signs Vital signs: Vital Signs Temp 97.5 F L 06/12/22 04:00 Pulse 74 06/12/22 04:00 Resp 16 06/12/22 04:00 BP 117/58 06/12/22 04:00 Pulse Ox 97 06/12/22 04:00 FiO2 40 06/11/22 08:11 Intake & Output 06/11/22 06/12/22 06/12/22 18:59 06:59 18:59 Intake Total 190 1020 Output Total 750 Balance -560 1020 Weight 57.425 kg 54.2 kg Intake: IV 10 Invasive Line 1 5 Invasive Line 2 5 Oral 180 1020 Output: Urine 750 Other: Voiding Method Urinal Toilet Urinal # Voids 1 - Constitutional General appearance: Present: no acute distress - Respiratory Respiratory: bilateral: diminished - Cardiovascular Rhythm: regular Heart sounds: normal: S1, S2 - Labs CBC & Chem 7: 06/11/22 07:06 06/11/22 07:06 Labs: Abnormal Lab Results - Last 24 Hours (Table) 06/11/22 06/11/22 Range/Units 07:06 07:06 RBC 2.35 L (4.30-5.90) m/uL Hgb 8.1 L D (13.0-17.5) gm/dL Hct 26.1 L (39.0-53.0) % MCV 111.2 H (80.0-100.0) fL RDW 19.6 H (11.5-15.5) % Macrocytosis Marked A Potassium 3.1 L (3.5-5.1) mmol/L BUN 36 H (9-20) mg/dL Creatinine 2.41 H (0.66-1.25) mg/dL Glucose 114 H (74-99) mg/dL Calcium 7.8 L (8.4-10.2) mg/dL Total Protein 5.3 L (6.3-8.2) g/dL Albumin 2.9 L (3.5-5.0) g/dL Assessment and Plan Assessment: Assessment #1 acute exacerbation of heart failure with preserved ejection fraction Uncontrolled hypertension Chronic kidney disease History of nonischemic cardiomyopathy History of cardiac arrest was V. tach Multiple comorbid conditions Plan DC Lasix IV and start the patient on Lasix by mouth Possible discharge in the next 24 hours
[2022-06-12] MEDS: carvediloL 12.5 MG TAB PO SCH ×2 (07:49→15:08)
[2022-06-12] MEDS: HEPARIN SODIUM,PORCINE/PF 5,000 UNIT/0.5 ML SYRINGE SQ SCH ×2 (07:49→15:07)
[2022-06-12] MEDS: LOSARTAN 50 MG TAB PO SCH (07:49)
[2022-06-12] MEDS: FUROSEMIDE 40 MG TAB PO SCH ×2 (07:50→15:07)
[2022-06-12] MEDS: AMIODARONE 200 MG TAB PO SCH (07:50)
[2022-06-12] MEDS: TAMSULOSIN 0.4 MG CAP.ER.24H PO SCH (07:50)
[2022-06-12] MEDS ORDERED: ASPIRIN 81 MG PO SCH (09:00)
[2022-06-12] MEDS ORDERED: FAMOTIDINE 20 MG TAB PO SCH (09:00)
[2022-06-12 09:16] LABS: Anisocytosis Slight; HCT 30.9 % (39.0-53.0); Hypochromasia Marked; MCH 34.9 pg (25.0-35.0); MCHC 31.1 g/dL (31.0-37.0); MCV 112.1 fL (80.0-100.0); Macrocytosis Marked; Mean Platelet Volume 7.4; Platelet Count 283 k/uL (150-450); RBC 2.76 m/uL (4.30-5.90); RDW 18.5 % (11.5-15.5)
[2022-06-12 09:22] LABS: Calcium 8.2 mg/dL (8.4-10.2); Potassium 3.1 mmol/L (3.5-5.1)
[2022-06-12 09:36] LABS: HGB 9.6 gm/dL (13.0-17.5)
--- NOTE | 2022-06-12 09:43 | P.DS ---
Providers Date of admission: 06/11/22 04:07 Expected date of discharge: 06/12/22 Attending physician: Arsen Christy MD Consults: 06/11/22 03:07 Consult Physician Urgent Consulting Provider: Rashad Cardoso Consult Reason/Comments: chf Do you want consulting provider notified?: Yes Primary care physician: [facility] Course: The patient is a 72-year-old male with a PMH of significant tobacco abuse, chronic kidney disease, nonischemic cardiomyopathy, hypertension, hyperlipidemia, presents to the emergency room with complaints of shortness of breath and lower extremity edema. The history supplemented by the at the bedside. Patient reports that over the past 3 days, he has developed gradually worsening shortness of breath with orthopnea, PND, and lower extremity edema. The patient reports he is now sleeping upright due to worsening orthopnea and wakes up 3-4 times per night catching his breath. He reports compliance with his Lasix and fluid restriction at home. Reports that his breathing had gotten so bad that he wasn't sure that he would make it back into the hospital. The patient's BP at time of evaluation was elevated to 192/102. In the emergency room, patient underwent an extensive evaluation with chest x-ray showing pulmonary edema, suspicious for acute CHF. Laboratory evaluation was remarkable for potassium 3.4 troponin 0.072 creatinine 2.54. Of note, the patient was recently admitted for for similar complaints at which time he was treated for diastolic CHF exacerbation. The patient continues to smoke cigarettes daily. Patient was started on Lasix 40 mg IV twice a day for CHF exacerbation. Strict intake and uptake were recorded along with daily weights. Echocardiogram done June 04 showed EF 55-60% with no regional wall motion abnormalities. He was also noted to be in hypertensive urgency on admission and was started on a nitroglycerin drip. Cardiology was consulted and recommended continuing IV Lasix, discontinue nitroglycerin drip, increasing Coreg to 25 mg by mouth twice a day. He was also continued on home medication hydralazine and losartan. His Lasix was transitioned to oral on 06/12/2022. He did have a drop in his hemoglobin from 11.4-8.1. This was thought to be lab error as he showed no signs of active bleeding. Repeat CBC on June 12 was pending at the time of this note. He did have a low potassium of 3.1 on June 12 which was replaced with 40 mEq potassium chloride IV. Patient had elevated troponin of 0.072 without complaints of chest pain. This was thought to be troponin leak from CHF. Repeat troponin on June 12 was pending at the time of this note. Patient was seen and examined. No acute events overnight. Patient reports improvement in his breathing and lower extremity swelling. He is advised to follow-up with his PCP within 1-2 days of discharge. Follow-up with cardiology within 1 week of discharge. Take all medications as advised. Advised fluid restriction and low-salt diet. Repeat BMP in 3 days of discharge to be followed by PCP. General: [non toxic], [no distress], [appears at stated age] Derm: [warm], [dry] Head: [atraumatic], [normocephalic], [symmetric] Eyes: [EOMI], [no lid lag], [anicteric sclera] Mouth: [no lip lesion], [mucus membranes moist] Cardiovascular: [S1S2 reg], [no murmur] Lungs: [Decreased breath sounds bilateral], [no rhonchi, no rales] , [no accessory muscle use] Abdominal: [soft], [ nontender to palpation], [no guarding], [no appreciable organomegaly] Ext: [no gross muscle atrophy], [no edema], [no contractures] Neuro: [no focal neuro deficits] Psych: [Alert], [oriented], [appropriate affect] Discharge diagnosis: Acute on chronic diastolic CHF exacerbation Elevated troponin with history of CAD Chronic kidney disease Hypokalemia Hypertensive urgency Tobacco use Dyslipidemia History of colon and bladder cancer History of cardiac arrest This complex discharge took about 40 minutes to complete. Pertinent Studies: CXR EKG Patient Condition at Discharge: Stable Plan - Discharge Summary Discharge Rx Participant: No New Discharge Prescriptions: No Action Tamsulosin [Flomax] 0.4 mg PO DAILY Multivitamins, Thera [Multivitamin (formulary)] 1 tab PO DAILY Famotidine [Pepcid] 20 mg PO BID carvediloL [Coreg*] 12.5 mg PO BID Atorvastatin Calcium [Lipitor] 20 mg PO HS Nitroglycerin Sl Tabs 0.3mg 0.3 mg SL Q5M PRN PRN Reason: Chest Pain hydrALAZINE HCL [Apresoline] 100 mg PO TID Mirtazapine [Remeron] 30 mg PO HS Furosemide [Lasix] 40 mg PO DAILY #60 tab Losartan [Cozaar] 50 mg PO DAILY Amiodarone [Cordarone] 200 mg PO BID Fluticasone Propion/Salmeterol [[place] 250-50 Inhub] 1 puff INHALATION RT-BID Melatonin 5 mg PO HS QUEtiapine [SEROquel] 150 mg PO HS Acetaminophen Tab [Tylenol] 650 mg PO Q6HR PRN tab PRN Reason: Mild Pain Or Fever > 100.5 HYDROcodone/APAP 10-325MG [[place] 10-325] 1 tab PO Q8H PRN #9 tab PRN Reason: Pain Discharge Medication List Tamsulosin [Flomax] 0.4 mg PO DAILY 06/04/16 [History] Famotidine [Pepcid] 20 mg PO BID 06/08/20 [History] Multivitamins, Thera [Multivitamin (formulary)] 1 tab PO DAILY 06/08/20 [History] carvediloL [Coreg*] 12.5 mg PO BID 10/21/20 [History] Atorvastatin Calcium [Lipitor] 20 mg PO HS 06/24/21 [History] Losartan [Cozaar] 50 mg PO DAILY 06/24/21 [History] Amiodarone [Cordarone] 200 mg PO BID 06/25/21 [History] Fluticasone Propion/Salmeterol [[place] 250-50 Inhub] 1 puff INHALATION RT-BID 08/27/21 [History] Melatonin 5 mg PO HS 05/31/22 [History] Mirtazapine [Remeron] 30 mg PO HS 05/31/22 [History] Nitroglycerin Sl Tabs 0.3mg 0.3 mg SL Q5M PRN 05/31/22 [History] QUEtiapine [SEROquel] 150 mg PO HS 05/31/22 [History] hydrALAZINE HCL [Apresoline] 100 mg PO TID 05/31/22 [History] Acetaminophen Tab [Tylenol] 650 mg PO Q6HR PRN tab 06/05/22 [Rx] Furosemide [Lasix] 40 mg PO DAILY #60 tab 06/05/22 [Rx] HYDROcodone/APAP 10-325MG [[place] 10-325] 1 tab PO Q8H PRN #9 tab 06/05/22 [Rx] Follow up Appointment(s)/Referral(s): Rashad Cadroso MD [STAFF PHYSICIAN] - 1 Week [facility] [place] [Primary Care Provider] - 1-2 days Ambulatory/Diagnostic Orders: Basic Metabolic Panel [LAB.AMB] Time Frame: 3 Days, Location: None Selected
[2022-06-12] MEDS: POTASSIUM CHLORIDE 10 MEQ in WATER FOR INJECTION 1 100ML.BAG IVPB SCH ×4 (10:21→14:16)
[2022-06-12 11:24] VITALS: BP 105/55; PULSE 68; RESP 18; TEMP 97.7
[2022-06-12 12:53] VITALS: BMI 18.7
== END 2022-06-12 16:50 | disposition home or self-care (01) | DRG 291 ==
LOC: EC 01:21 → 3SCARD 04:07
PROVIDERS: ADMIT Internal Medicine; ATTEND Internal Medicine
PROC: 5A09357 Assistance with Respiratory Ventilation, Less than 24 Consecutive Hours, Continuous Positive Airway Pressure (ICD-10-PCS; principal; 2022-06-11)
DX: I13.0 Hypertensive heart and chronic kidney disease with heart failure and stage 1 through stage 4 chronic kidney disease, or unspecified chronic kidney disease (principal); I50.33 Acute on chronic diastolic (congestive) heart failure; N18.4 Chronic kidney disease, stage 4 (severe); I42.8 Other cardiomyopathies; J44.9 Chronic obstructive pulmonary disease, unspecified; I16.0 Hypertensive urgency; E78.5 Hyperlipidemia, unspecified; I25.10 Atherosclerotic heart disease of native coronary artery without angina pectoris; I35.0 Nonrheumatic aortic (valve) stenosis; E87.6 Hypokalemia; N40.0 Benign prostatic hyperplasia without lower urinary tract symptoms; G25.81 Restless legs syndrome; K21.9 Gastro-esophageal reflux disease without esophagitis; D64.9 Anemia, unspecified; M54.50 Low back pain, unspecified; R77.8 Other specified abnormalities of plasma proteins; F17.210 Nicotine dependence, cigarettes, uncomplicated; Z71.6 Tobacco abuse counseling; Z79.51 Long term (current) use of inhaled steroids; Z79.899 Other long term (current) drug therapy; Z85.038 Personal history of other malignant neoplasm of large intestine; Z85.51 Personal history of malignant neoplasm of bladder; Z90.49 Acquired absence of other specified parts of digestive tract; Z86.74 Personal history of sudden cardiac arrest; Z87.39 Personal history of other diseases of the musculoskeletal system and connective tissue; Z86.69 Personal history of other diseases of the nervous system and sense organs; Z86.59 Personal history of other mental and behavioral disorders; Z88.8 Allergy status to other drugs, medicaments and biological substances; Z80.3 Family history of malignant neoplasm of breast; Z83.2 Family history of diseases of the blood and blood-forming organs and certain disorders involving the immune mechanism; Z80.6 Family history of leukemia; Z80.7 Family history of other malignant neoplasms of lymphoid, hematopoietic and related tissues; Z82.5 Family history of asthma and other chronic lower respiratory diseases; Z82.41 Family history of sudden cardiac death
CPT/HCPCS: 36415; 71045; 80048; 80053; 83735; 83880; 84484; 85025; 85027; 85610; 85730; 93005; 94660; 96365; 96366; 96375; 96376; 99285

== ENCOUNTER 2022-07-02 06:52 | Inpatient (IN) | payer OTHER, MEDICARE ==
[2022-07-02] MEDS ORDERED: IPRATROPIUM-ALBUTEROL 3 ML NEB INHALATION STA (07:25)
[2022-07-02] MEDS ORDERED: methylPREDNISolone SOD SUCCI 125 MG/2 ML VIAL IV STA (07:25)
[2022-07-02] MEDS ORDERED: MAGNESIUM SULFATE-D5W PMX 1 GM in DEXTROSE/WATER 1 100ML.BAG IVPB STA (07:25)
--- NOTE | 2022-07-02 07:31 | ED ---
General Adult HPI - General Chief complaint: Shortness of Breath Stated complaint: SOB Time Seen by Provider: 07/02/22 07:19 Source: EMS, RN notes reviewed, old records reviewed Mode of arrival: EMS Limitations: no limitations - History of Present Illness Initial comments: Patient is a 72-year-old male with past medical history remarkable for heart failure, COPD, hypertension who presents emergency Department for Worsening shortness of breath over the last few weeks. States it has been worse in the last couple days. Endorses coughing but no productive cough. Endorses wheezing. Attempted AT home today without much improvement. Presents for fur ther evaluation at this time. Denies fevers, sick contacts. Denies nausea, vomiting, diarrhea, abdominal pain. Denies worsening lower extremity edema. Is actually improved lower extremity edema from baseline. States left leg is normally worse than right, and states it is improved compared to last time he was evaluated. Endorses exertional dyspnea. Denies worsening orthopnea or PND.States he is compliant with medications. Has no other acute complaints at this time. Presents for further evaluation. Normally is not on oxygen at home. Currently he is requiring 3 L nasal cannula to saturate 95%.Patient was recently admitted from a facility for heart failure as well as a COPD exacerbati on with possible concern for PE. Determined that this is COPD exacerbation. - Related Data Home Medications Medication Instructions Recorded Confirmed Tamsulosin [Flomax] 0.4 mg PO DAILY 06/04/16 07/02/22 Famotidine [Pepcid] 20 mg PO BID 06/08/20 07/02/22 Multivitamins, Thera [Multivitamin 1 tab PO DAILY 06/08/20 07/02/22 (formulary)] Atorvastatin Calcium [Lipitor] 20 mg PO HS 06/24/21 07/02/22 Losartan [Cozaar] 50 mg PO DAILY 06/24/21 07/02/22 Amiodarone [Cordarone] 200 mg PO BID 06/25/21 07/02/22 Fluticasone Propion/Salmeterol 1 puff INHALATION RT-BID 08/27/21 07/02/22 [[place] 250-50 Inhub] Melatonin 5 mg PO HS 05/31/22 07/02/22 Mirtazapine [Remeron] 30 mg PO HS 05/31/22 07/02/22 Nitroglycerin Sl Tabs 0.3mg 0.3 mg SL Q5M PRN 05/31/22 07/02/22 QUEtiapine [SEROquel] 150 mg PO HS 05/31/22 07/02/22 hydrALAZINE HCL [Apresoline] 100 mg PO TID 05/31/22 07/02/22 predniSONE See Taper PO DIRECTED 07/02/22 07/02/22 Previous Rx's Medication Instructions Recorded Acetaminophen Tab [Tylenol] 650 mg PO Q6HR PRN tab 06/05/22 HYDROcodone/APAP 10-325MG [[place] 1 tab PO Q8H PRN #9 tab 06/05/22 10-325] Aspirin 81 mg PO DAILY #30 tab 06/12/22 Furosemide [Lasix] 40 mg PO BID@0900,1600 #60 tab 06/12/22 Potassium Chloride ER [K-Dur 20] 20 meq PO DAILY #14 tab 06/12/22 carvediloL [Coreg*] 25 mg PO BID-W/MEALS #60 tab 06/12/22 Albuterol Inhaler [Ventolin Hfa 1 - 2 puff INHALATION RT-Q6H PRN 06/26/22 Inhaler] 30 Days #1 dispenser Allergies Allergy/AdvReac Type Severity Reaction Status Date / Time lisinopril Allergy Angioedema., Verified 07/02/22 11:21 swollen testicle, rash Review of Systems ROS Statement: Those systems with pertinent positive or pertinent negative responses have been documented in the HPI. Review of Systems: CONST: Denies fever EYES: Denies blurry vision ENT: Denies nasal congestion C/V: Denies Chest pain RESP: Endorses shortness of breath GI: Denies abdominal pain : Denies dysuria SKIN: Denies rash. MSK: Denies joint pain. NEURO: Denies headache ROS Other: All systems not noted in ROS Statement are negative. Past Medical History Past Medical History: Cancer, Heart Failure, COPD, GERD/Reflux, Hyperlipidemia, Hypertension, Prostate Disorder, Renal Disease Additional Past Medical History / Comment(s): Pt recently admitted to [facility] [place] on with acute on chronic CHF, hyperkalemia. Other hx: Recent bladder cancer/completed oral chemo and radiation, past colon cancer with resection, nonischemic cardiomyopathy, 2020 cardiac arrent/Vtach, CKD stage IV, BPH, hemorrhoids, anemia, RLS, chronic low back pain History of Any Multi-Drug Resistant Organisms: None Reported Past Surgical History: Appendectomy, Bowel Resection, Heart Catheterization, Orthopedic Surgery Additional Past Surgical History / Comment(s): R hemicolectomy, colonoscopies, nasal surgery to repair ulcer, R knee arthroscopic surgeries (ACL repair and meniscus repair), L heel fusion d/t trauma, L arm bicep surgery. Past Anesthesia/Blood Transfusion Reactions: No Reported Reaction Past Psychological History: Anxiety Smoking Status: Current every day smoker Past Alcohol Use History: None Reported Past Drug Use History: None Reported - Past Family History Mother Family Medical History: Cancer Additional Family Medical History / Comment(s): BREAST Sister(s) Family Medical History: Deep Vein Thrombosis (DVT) Additional Family Medical History / Comment(s): 1 sister had leukemia, and another sister had non hodgkins. Father Family Medical History: COPD Additional Family Medical History / Comment(s): FROM CARDIAC ARREST General Exam - General Exam Comments Initial Comments: General: Appears in mild respiratory distress. Some increased work of breathing. HEAD: Normal with no signs of head trauma. EYES: PERRLA, EOMI, conjunctiva normal, no discharge. ENT: Hearing grossly intact, normal oropharynx. RESPIRATORY: Bilateral end expiratory wheezing with a sport rhonchorous breath sounds in bilateral lower lobes. Hypoxia on room air, saturating 95% on 2 L nasal cannula. Increased work of breathing. Somewhat barrel chested. C/V: Regular rate and rhythm. S1 and S2 auscultated, Bilateral 1+ pitting edema. Left slightly worse than right which is chronic., peripheral pulses 2+ and intact throughout ABD: Abd is soft, nontender, nondistended EXT: Normal range of motion, no obvious deformity SKIN: No rashes or lesions observed on exposed skin. NEURO: Alert and oriented 4. Limitations: no limitations Course Vital Signs 07/02/22 07/02/22 07/02/22 06:58 07:26 07:38 Temperature 97.9 F Pulse Rate 88 78 Respiratory 28 H 22 Rate Blood Pressure 180/101 O2 Sat by Pulse 98 Oximetry 07/02/22 07/02/22 07/02/22 07:43 08:15 08:16 Temperature Pulse Rate 86 Respiratory 18 18 Rate Blood Pressure O2 Sat by Pulse 84 L 94 L Oximetry 07/02/22 07/02/22 07/02/22 10:03 10:18 10:25 Temperature Pulse Rate 89 87 88 Respiratory 18 Rate Blood Pressure 181/98 O2 Sat by Pulse 91 L Oximetry 07/02/22 11:35 Temperature Pulse Rate 81 Respiratory 22 Rate Blood Pressure O2 Sat by Pulse 90 L Oximetry Medical Decision Making - Medical Decision Making Based on the patient's presentation and physical exam, I'm concerned for cardiopulmonary etiology for his current symptoms. This includes COPD exacerbation as he is having bilateral end expiratory wheezing but cannot rule out cardiac etiology or infectious. We will obtain cardiac labs, chest x-ray, viral swabs. He'll be symptomatically treated with multiple breathing treatments, IV steroids, IV magnesium. Screening EKG will also be obtained. He was in agreement this plan. Vital signs remarkable for increased work of breathing, as well as hypoxia on room air both of which are abnormal from baseline.Oxygen saturations drop as low as 84% on room air.Patient does have signs and symptoms of heart failure as well as recurrent history. When I speak with him, he endorses intermittent compliance with diuretics. Is complaining of exertional dyspnea, lower extremity edema. EKG shows no signs of acute ischemia.Chest x-ray shows bilateral pulmonary edema, concern for CHF. Laboratory studies are remarkable for a leukocytosis of 13 which is likely reactive. Patient is a chronic microcytic anemia with a hemoglobin of 11.0 which is stable. Patient has CK D with a stable BUN and creatinine of 56 and 2.43. Troponin is elevated to 0.102 which is likely secondary to hypoxia at home, as he has denied any chest pain. BNP today while to return, however was elevated to 83,000. Vital signs are negative. On reevaluation, patient is resting comfortably on 3-4 L nasal cannula. Saturating low 90's%. Discussed results with him. Appears to be having a heart failure exacerbation. Patient will be started on IV Lasix, patient will be admitted. He was in agreement this plan. Cardiology will be consulted. Patient continues to have a mild COPD component to it as well as he is wheezing upper lung knowles. I will continue breathing treatments. It is improved at this time. Primary complaint seems to be stemming from a CHF exacerbation. On prior admission, patient was worked up for pulmonary embolism. Could not receive CT angiogram due to kidney function. VQ scan at that time showed intermediate risk. He was thoroughly worked up and evaluated by pulmonology and cardiology. Determined signs and symptoms were likely secondary to his heart failure. This was 1 week ago. I have low concern for PE at this time due to the prior workup, as well as current workup supporting heart failure exacerbation. I did discuss this with Dr. Real, the patient's admitting bessie aguilar. He was in agreement this plan. We will continue treatment for his mild COPD exacerbation in addition to treatment for CHF exacerbation. IV Lasix was started. Cardiology was consulted. Patient was admitted in serious condition. Is still requiring low levels of nasal cannula oxygen. - Lab Data Result diagrams: 07/02/22 07:32 07/02/22 07:32 Lab Results 07/02/22 07/02/22 07/02/22 Range/Units 07:32 07:32 07:32 WBC 13.5 H (3.8-10.6) k/uL RBC 3.20 L (4.30-5.90) m/uL Hgb 11.0 L (13.0-17.5) gm/dL Hct 35.5 L (39.0-53.0) % MCV 110.9 H (80.0-100.0) fL MCH 34.3 (25.0-35.0) pg MCHC 30.9 L (31.0-37.0) g/dL RDW 16.2 H (11.5-15.5) % Plt Count 488 H (150-450) k/uL MPV 7.2 Neutrophils % 89 % Lymphocytes % 3 % Monocytes % 5 % Eosinophils % 2 % Basophils % 0 % Neutrophils # 12.0 H (1.3-7.7) k/uL Lymphocytes # 0.5 L (1.0-4.8) k/uL Monocytes # 0.7 (0-1.0) k/uL Eosinophils # 0.3 (0-0.7) k/uL Basophils # 0.0 (0-0.2) k/uL Manual Slide Review Performed Hypersegmented Neuts Present Toxic Granulation Present Hypochromasia Slight Anisocytosis Slight Macrocytosis Marked A PT 10.7 (9.0-12.0) sec INR 1.0 (<1.2) APTT 25.0 (22.0-30.0) sec Sodium 134 L (137-145) mmol/L Potassium 3.9 (3.5-5.1) mmol/L Chloride 98 (98-107) mmol/L Carbon Dioxide 25 (22-30) mmol/L Anion Gap 11 mmol/L BUN 56 H (9-20) mg/dL Creatinine 2.43 H (0.66-1.25) mg/dL Est GFR (CKD-EPI)AfAm 30 (>60 ml/min/1.73 sqM) Est GFR (CKD-EPI)NonAf 26 (>60 ml/min/1.73 sqM) Glucose 99 (74-99) mg/dL Calcium 8.3 L (8.4-10.2) mg/dL Total Bilirubin 0.4 (0.2-1.3) mg/dL AST 38 (17-59) U/L ALT 33 (4-49) U/L Alkaline Phosphatase 66 (38-126) U/L Troponin I (0.000-0.034) ng/mL NT-Pro-B Natriuret Pep pg/mL Total Protein 6.3 (6.3-8.2) g/dL Albumin 3.8 (3.5-5.0) g/dL Influenza Type A (PCR) (Not Detectd) Influenza Type B (PCR) (Not Detectd) RSV (PCR) (Not Detectd) SARS-CoV-2 (PCR) (Not Detectd) 07/02/22 07/02/22 07/02/22 Range/Units 07:32 07:32 07:32 WBC (3.8-10.6) k/uL RBC (4.30-5.90) m/uL Hgb (13.0-17.5) gm/dL Hct (39.0-53.0) % MCV (80.0-100.0) fL MCH (25.0-35.0) pg MCHC (31.0-37.0) g/dL RDW (11.5-15.5) % Plt Count (150-450) k/uL MPV Neutrophils % % Lymphocytes % % Monocytes % % Eosinophils % % Basophils % % Neutrophils # (1.3-7.7) k/uL Lymphocytes # (1.0-4.8) k/uL Monocytes # (0-1.0) k/uL Eosinophils # (0-0.7) k/uL Basophils # (0-0.2) k/uL Manual Slide Review Hypersegmented Neuts Toxic Granulation Hypochromasia Anisocytosis Macrocytosis PT (9.0-12.0) sec INR (<1.2) APTT (22.0-30.0) sec Sodium (137-145) mmol/L Potassium (3.5-5.1) mmol/L Chloride (98-107) mmol/L Carbon Dioxide (22-30) mmol/L Anion Gap mmol/L BUN (9-20) mg/dL Creatinine (0.66-1.25) mg/dL Est GFR (CKD-EPI)AfAm (>60 ml/min/1.73 sqM) Est GFR (CKD-EPI)NonAf (>60 ml/min/1.73 sqM) Glucose (74-99) mg/dL Calcium (8.4-10.2) mg/dL Total Bilirubin (0.2-1.3) mg/dL AST (17-59) U/L ALT (4-49) U/L Alkaline Phosphatase (38-126) U/L Troponin I 0.102 H* (0.000-0.034) ng/mL NT-Pro-B Natriuret Pep 81257 pg/mL Total Protein (6.3-8.2) g/dL Albumin (3.5-5.0) g/dL Influenza Type A (PCR) Not Detected (Not Detectd) Influenza Type B (PCR) Not Detected (Not Detectd) RSV (PCR) Not Detected (Not Detectd) SARS-CoV-2 (PCR) Not Detected (Not Detectd) - EKG Data -: EKG Interpreted by Me EKG Comments: 12-lead Electrocardiogram Interpretation Note EKG was reviewed and interpreted by myself. 12-lead ECG performed at 0705 is interpreted by me as revealing normal sinus rhythm with intermittent PVCs. At a rate of 86 beats per minute. [place] is normal. GA interval is 172 ms, QRS duration is 114 ms, QTc is 445 ms.. [There were no acute ST or T wave abnormalities to suggest myocardial ischemia or injury]. [R wave progression across the precordium was satisfactory]. [By my interpretation this EKG is non- diagnostic for acute ischemia]. Similar to prior EKG obtained [id number]. Disposition Clinical Impression: CHF (congestive heart failure), COPD (chronic obstructive pulmonary disease), Elevated troponin, Hypoxia Disposition: ADMITTED IP TO THIS HOSP Condition: Serious Time of Disposition: 10:00
[2022-07-02 07:45] LABS: Anisocytosis Slight; Basophils % (A) 0 %; Eosinophils # (A) 0.3 k/uL (0-0.7); Eosinophils % (A) 2 %; HCT 35.5 % (39.0-53.0); Hypochromasia Slight; Lymphocytes # (A) 0.5 k/uL (1.0-4.8); Lymphocytes % (A) 3 %; MCH 34.3 pg (25.0-35.0); MCHC 30.9 g/dL (31.0-37.0); MCV 110.9 fL (80.0-100.0); Macrocytosis Marked; Mean Platelet Volume 7.2; Monocytes # (A) 0.7 k/uL (0-1.0); Monocytes % (A) 5 %; Neutrophils % (A) 89 %; Platelet Count 488 k/uL (150-450); RDW 16.2 % (11.5-15.5); WBC 13.5 k/uL (3.8-10.6)
[2022-07-02 07:54] LABS: Albumin 3.8 g/dL (3.5-5.0); Calcium 8.3 mg/dL (8.4-10.2); Total Bilirubin 0.4 mg/dL (0.2-1.3); Total Protein 6.3 g/dL (6.3-8.2)
[2022-07-02 07:56] LABS: Potassium 3.9 mmol/L (3.5-5.1)
[2022-07-02 07:57] LABS: Prothrombin Time 10.7 sec (9.0-12.0)
[2022-07-02] MEDS ORDERED: IPRATROPIUM-ALBUTEROL 3 ML NEB INHALATION ONE (08:00)
--- NOTE | 2022-07-02 08:15 | XR ---
EXAMINATION TYPE: XR chest 2V DATE OF EXAM: 07/02/2022 COMPARISON: 06/26/2022 INDICATION: Difficulty breathing, patient reports black mold in his apartment. TECHNIQUE: Frontal and lateral views of the chest are obtained. FINDINGS: The heart size is normal. The pulmonary vasculature is normal. Patchy bilateral perihilar infiltrates are evident. Suspicious cavitary lesions or focal consolidatio ns are not identified. There is hyperinflation and flattening of diaphragms and increased retrosternal airspace suggestive f or COPD. IMPRESSION: 1. Patchy bilateral perihilar infiltrates, an interval development from comparison. Follow-up is sergio mmended. 2. COPD
[2022-07-02] MEDS ORDERED: ASPIRIN 81 MG PO STA (08:22)
[2022-07-02 09:32] LABS: Hypersegmented Neutrophils Present; Toxic Granulation Present
[2022-07-02] MEDS ORDERED: FUROSEMIDE 10 MG/ML 4 ML VIAL IV SCH (10:00)
[2022-07-02] MEDS ORDERED: HYDROcodone/APAP 10-325MG 1 EACH TAB PO ONE (10:05)
[2022-07-02] MEDS ORDERED: NALOXONE 0.4 MG/ML 1 ML VIAL IV PRN ×2 (10:25→15:24)
[2022-07-02] MEDS ORDERED: ACETAMINOPHEN TAB 325 MG TAB PO PRN (12:46)
[2022-07-02] MEDS ORDERED: ALPRAZolam 0.5 MG TAB PO STA (15:17)
[2022-07-02] MEDS: IPRATROPIUM-ALBUTEROL 3 ML NEB INHALATION PRN ×2 (15:17→20:31)
[2022-07-02] MEDS ORDERED: NITROGLYCERIN SL TABS 0.4 MG TAB SUBLINGUAL PRN (15:25)
[2022-07-02] MEDS: FUROSEMIDE 40 MG TAB PO SCH (15:42)
[2022-07-02] MEDS: hydrALAZINE HCL 50 MG TAB PO SCH ×2 (15:42→21:00)
[2022-07-02] MEDS: HEPARIN SODIUM,PORCINE/PF 5,000 UNIT/0.5 ML SYRINGE SQ SCH (15:43)
[2022-07-02] MEDS: FAMOTIDINE 20 MG TAB PO SCH (15:43)
[2022-07-02] MEDS: AZITHROMYCIN 500 MG in SODIUM CHLORIDE 0.9% 250 ML IVPB SCH (15:44)
[2022-07-02] MEDS: carvediloL 12.5 MG TAB PO SCH (17:33)
[2022-07-02] MEDS: SYMBICORT 80-4.5 MCG INHALER INHALATION SCH (20:31)
[2022-07-02] MEDS: MELATONIN 5 MG TABLET PO SCH (20:57)
[2022-07-02] MEDS: AMIODARONE 200 MG TAB PO SCH (20:57)
[2022-07-02] MEDS: ATORVASTATIN 20 MG TAB PO SCH (20:57)
[2022-07-02] MEDS: QUEtiapine 50 MG TAB PO SCH (20:58)
[2022-07-02] MEDS: CEFEPIME 1 GM in SODIUM CHLORIDE 0.9% 50 ML IVPB SCH (20:58)
[2022-07-02] MEDS: MIRTAZAPINE 15 MG TAB PO SCH (20:58)
[2022-07-02] MEDS ORDERED: FAMOTIDINE 20 MG TAB PO SCH (21:00)
[2022-07-03] MEDS: HEPARIN SODIUM,PORCINE/PF 5,000 UNIT/0.5 ML SYRINGE SQ SCH ×4 (00:31→23:52)
[2022-07-03] MEDS: carvediloL 12.5 MG TAB PO SCH ×2 (06:48→16:21)
[2022-07-03] MEDS: hydrALAZINE HCL 50 MG TAB PO SCH ×3 (08:25→20:20)
[2022-07-03] MEDS: AMIODARONE 200 MG TAB PO SCH (08:26)
[2022-07-03] MEDS: FAMOTIDINE 20 MG TAB PO SCH (08:26)
[2022-07-03] MEDS: MULTIVITAMINS, THERA 1 EACH TAB PO SCH (08:26)
[2022-07-03] MEDS: POTASSIUM CHLORIDE ER 20 MEQ TAB.ER PO SCH (08:26)
[2022-07-03] MEDS: LOSARTAN 50 MG TAB PO SCH (08:26)
[2022-07-03] MEDS: FUROSEMIDE 40 MG TAB PO SCH ×2 (08:26→16:21)
[2022-07-03] MEDS: ASPIRIN 81 MG PO SCH (08:27)
[2022-07-03] MEDS: CEFEPIME 1 GM in SODIUM CHLORIDE 0.9% 50 ML IVPB SCH (08:27)
[2022-07-03] MEDS: TAMSULOSIN 0.4 MG CAP.ER.24H PO SCH (08:27)
[2022-07-03] MEDS: AZITHROMYCIN 500 MG in SODIUM CHLORIDE 0.9% 250 ML IVPB SCH (08:27)
[2022-07-03] MEDS: SYMBICORT 80-4.5 MCG INHALER INHALATION SCH (08:44)
[2022-07-03] MEDS ORDERED: methylPREDNISolone SOD SUCCI 40 MG/ML 1 ML VIAL IV SCH (09:00)
--- NOTE | 2022-07-03 10:08 | P.HPIM ---
History of Present Illness H&P Date: 07/02/22 Chief Complaint: Shortness of breath Patient is 72-year-old male with past medical history remarkable for hypertension, dyslipidemia, aborted cardiac , non ischemic cardiomyopathy with prior systolic dysfunction and last ejection fraction 50-55% in May 2022 who presents emergency Department for Worsening shortness of breath over the last couple days. He states that he was exposed to a dirty basement and a paint smell while his son was painting his car. Endorses coughing with chronic phlegm production. He has some pleuritic chest pain but denies fevers, sick contacts. Denies nausea, vomiting, diarrhea, abdominal pain. Denies worsening lower extremity edema. States he is compliant with medications. His oxygen saturation in the emergency department were 82% on 2 L which he does not require at home. He was requiring 3 L in the emergency department. ER evaluation also revealed hypertension with blood pressure 180/80. Chest x-ray showed perihilar infi ltrates. Labs showed leukocytosis of 13,000. Troponin was 0.1, then trended down to 0.08. Influenza, Emmanuel negative. Creatinine 2.43 which is chronic. ProBNP 83,000 which is chronic. Review of Systems Complete review of system performed, pertinent positives per HPI , otherwise negative Past Medical History Past Medical History: Cancer, Heart Failure, COPD, GERD/Reflux, Hyperlipidemia, Hypertension, Prostate Disorder, Renal Disease Additional Past Medical History / Comment(s): Pt recently admitted to [facility] on 06/11/22 with acute on chronic CHF, hyperkalemia. Other hx: Recent bladder cancer/completed oral chemo and radiation, past colon cancer with resection, nonischemic cardiomyopathy, 2019 cardiac arrent/Vtach, CKD stage IV, BPH, hemorrhoids, anemia, RLS, chronic low back pain History of Any Multi-Drug Resistant Organisms: None Reported Past Surgical History: Appendectomy, Bowel Resection, Heart Catheterization, Orthopedic Surgery Additional Past Surgical History / Comment(s): R hemicolectomy, colonoscopies, n mark surgery to repair ulcer, R knee arthroscopic surgeries (ACL repair and meniscus repair), L heel fusion d/t trauma, L arm bicep surgery. Past Anesthesia/Blood Transfusion Reactions: No Reported Reaction Past Psychological History: Anxiety Smoking Status: Current every day smoker Past Alcohol Use History: None Reported Past Drug Use History: None Reported - Past Family History Mother Family Medical History: Cancer Additional Family Medical History / Comment(s): BREAST Sister(s) Family Medical History: Deep Vein Thrombosis (DVT) Additional Family Medical History / Comment(s): 1 sister had leukemia, and another sister had non hodgkins. Father Family Medical History: COPD Additional Family Medical History / Comment(s): FROM CARDIAC ARREST Medications and Allergies Home Medications Medication Instructions Recorded Confirmed Type Tamsulosin [Flomax] 0.4 mg PO DAILY 06/04/16 07/02/22 History Famotidine [Pepcid] 20 mg PO BID 06/08/20 07/02/22 History Multivitamins, Thera [Multivitamin 1 tab PO DAILY 06/08/20 07/02/22 History (formulary)] Atorvastatin Calcium [Lipitor] 20 mg PO HS 06/24/21 07/02/22 History Losartan [Cozaar] 50 mg PO DAILY 06/24/21 07/02/22 History Amiodarone [Cordarone] 200 mg PO BID 06/25/21 07/02/22 History Fluticasone Propion/Salmeterol 1 puff INHALATION RT-BID 08/27/21 07/02/22 History [Wixela 250-50 Inhub] Melatonin 5 mg PO HS 05/31/22 07/02/22 History Mirtazapine [Remeron] 30 mg PO HS 05/31/22 07/02/22 History Nitroglycerin Sl Tabs 0.3mg 0.3 mg SL Q5M PRN 05/31/22 07/02/22 History QUEtiapine [SEROquel] 150 mg PO HS 05/31/22 07/02/22 History hydrALAZINE HCL [Apresoline] 100 mg PO TID 05/31/22 07/02/22 History Acetaminophen Tab [Tylenol] 650 mg PO Q6HR PRN tab 06/05/22 07/02/22 Rx HYDROcodone/APAP 10-325MG [[place] 1 tab PO Q8H PRN #9 tab 06/05/22 07/02/22 Rx 10-325] Aspirin 81 mg PO DAILY #30 tab 06/12/22 07/02/22 Rx Furosemide [Lasix] 40 mg PO BID@0900,1600 #60 tab 06/12/22 07/02/22 Rx Potassium Chloride ER [K-Dur 20] 20 meq PO DAILY #14 tab 06/12/22 07/02/22 Rx carvediloL [Coreg*] 25 mg PO BID-W/MEALS #60 tab 06/12/22 07/02/22 Rx Albuterol Inhaler [Ventolin Hfa 1 - 2 puff INHALATION RT-Q6H PRN 06/26/22 07/02/22 Rx Inhaler] 30 Days #1 dispenser predniSONE See Taper PO DIRECTED 07/02/22 07/02/22 History Allergies Allergy/AdvReac Type Severity Reaction Status Date / Time lisinopril Allergy Angioedema., Verified 07/02/22 11:21 swollen testicle, rash Physical Exam Vitals: Vital Signs Temp Pulse Resp BP Pulse Ox 07/02/22 11:35 81 22 90 L 07/02/22 10:25 88 07/02/22 10:18 87 07/02/22 10:03 89 18 181/98 91 L 07/02/22 08:16 18 94 L 07/02/22 08:15 18 84 L 07/02/22 07:43 86 07/02/22 07:38 78 07/02/22 07:26 22 07/02/22 06:58 97.9 F 88 28 H 180/101 98 Intake and Output 07/02/22 07/02/22 07/02/22 06:59 14:59 22:59 Other: Weight 52.163 kg Constitutional: No acute distress, conversant, pleasant Eyes:Anicteric sclerae, moist conjunctiva, no lid-lag, PERRLA, ENMT: Oropharynx clear, no erythema, exudates Neck: Supple, FROM, no masses, or JVD, No carotid bruits, No thyromegaly Lungs: Scattered rhonchi, Clear to percussion, Normal respiratory effort, no accessory muscle use Cardiovascular: Heart regular in rate and rhythm, No murmurs, gallops, or rubs, No peripheral edema Abdominal: Soft, Nontender, no guarding, rebound or rigidity, Normoactive bowel sounds, No hepatomegaly, No splenomegaly, No palpable mass Skin: Normal temperature, tone, texture, turgor, no induration, No subcutaneous nodules, No rash, lesions, No ulcers Extremities: No digital cyanosis, No clubbing, Pedal pulses intact and symmetrical, Radial pulses intact and symmetrical, No calf tenderness Psychiatric: Alert and oriented to person, place and time, appropriate affect, intact judgement Neuro: Muscles Strength 5/5 in all 4 extremities, Sensation to light touch grossly present throughout, Cranial nerves II-XII grossly intact, no focal sensory deficits Results CBC & Chem 7: 07/02/22 07:32 07/02/22 07:32 Labs: Abnormal Lab Results - Last 24 Hours (Table) 07/02/22 07/02/22 07/02/22 Range/Units 07:32 07:32 07:32 WBC 13.5 H (3.8-10.6) k/uL RBC 3.20 L (4.30-5.90) m/uL Hgb 11.0 L (13.0-17.5) gm/dL Hct 35.5 L (39.0-53.0) % MCV 110.9 H (80.0-100.0) fL MCHC 30.9 L (31.0-37.0) g/dL RDW 16.2 H (11.5-15.5) % Plt Count 488 H (150-450) k/uL Neutrophils # 12.0 H (1.3-7.7) k/uL Lymphocytes # 0.5 L (1.0-4.8) k/uL Macrocytosis Marked A Sodium 134 L (137-145) mmol/L BUN 56 H (9-20) mg/dL Creatinine 2.43 H (0.66-1.25) mg/dL Calcium 8.3 L (8.4-10.2) mg/dL Troponin I 0.102 H* (0.000-0.034) ng/mL 07/02/22 Range/Units 12:52 WBC (3.8-10.6) k/uL RBC (4.30-5.90) m/uL Hgb (13.0-17.5) gm/dL Hct (39.0-53.0) % MCV (80.0-100.0) fL MCHC (31.0-37.0) g/dL RDW (11.5-15.5) % Plt Count (150-450) k/uL Neutrophils # (1.3-7.7) k/uL Lymphocytes # (1.0-4.8) k/uL Macrocytosis Sodium (137-145) mmol/L BUN (9-20) mg/dL Creatinine (0.66-1.25) mg/dL Calcium (8.4-10.2) mg/dL Troponin I 0.083 H* (0.000-0.034) ng/mL Assessment and Plan Plan: COPD exacerbation Acute hypoxic respiratory Failure Healthcare associated pneumonia -Admit inpatient, telemetry -Pulmonary consult -DuoNeb's every 4 hours -Albuterol when necessary -Solu-Medro -Cefepime and azithromycin, check pro calcitonin -Oxygen as needed Chronic diastolic heart failure CAD Hypertension Hyperlipidemia Chronic kidney disease, stage IIIB Seizure disorder BPH Depression History of ventricular tachycardia -Home medications reviewed and reconciled Patient is full code DVT prophylaxis with heparin 3 times a day
[2022-07-03 10:14] LABS: Anisocytosis Slight; Basophils % (A) 0 %; Eosinophils % (A) 0 %; HCT 30.2 % (39.0-53.0); Hypochromasia Slight; Lymphocytes # (A) 0.4 k/uL (1.0-4.8); Lymphocytes % (A) 3 %; MCH 35.4 pg (25.0-35.0); MCHC 31.3 g/dL (31.0-37.0); MCV 113.1 fL (80.0-100.0); Macrocytosis Marked; Mean Platelet Volume 7.2; Monocytes # (A) 0.4 k/uL (0-1.0); Monocytes % (A) 4 %; Neutrophils # (A) 10.4 k/uL (1.3-7.7); Neutrophils % (A) 92 %; Platelet Count 415 k/uL (150-450); RBC 2.67 m/uL (4.30-5.90); RDW 16.8 % (11.5-15.5); WBC 11.3 k/uL (3.8-10.6)
[2022-07-03 10:39] LABS: Calcium 7.9 mg/dL (8.4-10.2); Magnesium 2.7 mg/dL (1.6-2.3); Potassium 3.9 mmol/L (3.5-5.1)
[2022-07-03 10:51] LABS: HGB 9.5 gm/dL (13.0-17.5)
--- NOTE | 2022-07-03 11:26 | P.CRDCN ---
History of Present Illness Consult date: 07/03/22 Requesting physician: Itzel Real Reason for Consult (text): CHF exacerbation, elevated troponin Chief complaint: shortness of breath History of present illness: This is a 72-year-old gentleman who follows in the office with Dr. Bello. He has a history of VT arrest in 2019 and has been on amiodarone, mild nonobstructive CAD, nonischemic cardiomyopathy with an normalization of his ejection fraction, chronic kidney disease, seizure disorder, hypertension, hyperlipidemia and chronic tobacco use history of colon cancer status post right hemicolectomy in 2017 as well as recent history of bladder cancer with recent radiation and chemotherapy. Has recently been admitted several times for congestive heart failure. Most recent echocardiogram done June 01 of this year showed a borderline normal LV systolic function with a 50-55% EF, trace MR and mild . He presented to the hospital this admission because he felt like his breathing was worsening. Denied any edema but did have some evidence of orthopnea and occasional PND. He's also been having sharp stabbing chest discomfort, left-sided, lasting about 10 seconds. We were asked to see the patient in consultation for congestive heart failure and elevated troponins which came back at 0.102, 0.083, and 0.076 which is around the range she's been running in the past. NT proBNP was 83,800 which is elevated compared to draw on 06/25 lower compared to draw on 06/11. Patient is hypertensive and blood pressure at home runs around 160 systolic the patient says he takes his medications as prescribed but then also stated that he cut back on them due to feeling tired with a blood pressure of 120 so it is unclear when he is actually taking at home. He initially said he follows a low-sodium diet as he does not use salt but uses seasonings and he is eating veggie straws and Combos which he has at the bedside. EKG on admission showed sinus mechanism with occasional PVCs. Chest x-ray on admission showed patchy bilateral perihilar infiltrates, and interval development from comparison, follow-up is recommended and COPD. Upon examination the patient is resting comfortably in bed eating veggie straws. He does not appear to be in any distress. She denies any palpitations, dizziness or lightheadedness. Denies any edema. Past Medical History Past Medical History: Cancer, Heart Failure, COPD, GERD/Reflux, Hyperlipidemia, Hypertension, Prostate Disorder, Renal Disease Additional Past Medical History / Comment(s): Pt recently admitted to [facility] on 06/11/22 with acute on chronic CHF, hyperkalemia. Other hx: Recent bladder cancer/completed oral chemo and radiation, past colon cancer with resection, nonischemic cardiomyopathy, 2020 cardiac arrent/Vtach, CKD stage IV, BPH, hemorrhoids, anemia, RLS, chronic low back pain History of Any Multi-Drug Resistant Organisms: None Reported Past Surgical History: Appendectomy, Bowel Resection, Heart Catheterization, Orthopedic Surgery Additional Past Surgical History / Comment(s): R hemicolectomy, colonoscopies, nasal surgery to repair ulcer, R knee arthroscopic surgeries (ACL repair and meniscus repair), L heel fusion d/t trauma, L arm bicep surgery. Past Anesthesia/Blood Transfusion Reactions: No Reported Reaction Past Psychological History: Anxiety Smoking Status: Current every day smoker Past Alcohol Use History: None Reported Past Drug Use History: None Reported - Past Family History Mother Family Medical History: Cancer Additional Family Medical History / Comment(s): BREAST Sister(s) Family Medical History: Deep Vein Thrombosis (DVT) Additional Family Medical History / Comment(s): 1 sister had leukemia, and another sister had non hodgkins. Father Family Medical History: COPD Additional Family Medical History / Comment(s): FROM CARDIAC ARREST Medications and Allergies Home Medications Medication Instructions Recorded Confirmed Type Tamsulosin [Flomax] 0.4 mg PO DAILY 06/04/16 07/02/22 History Famotidine [Pepcid] 20 mg PO BID 06/08/20 07/02/22 History Multivitamins, Thera [Multivitamin 1 tab PO DAILY 06/08/20 07/02/22 History (formulary)] Atorvastatin Calcium [Lipitor] 20 mg PO HS 06/24/21 07/02/22 History Losartan [Cozaar] 50 mg PO DAILY 06/24/21 07/02/22 History Amiodarone [Cordarone] 200 mg PO BID 06/25/21 07/02/22 History Fluticasone Propion/Salmeterol 1 puff INHALATION RT-BID 08/27/21 07/02/22 History [Wixela 250-50 Inhub] Melatonin 5 mg PO HS 05/31/22 07/02/22 History Mirtazapine [Remeron] 30 mg PO HS 05/31/22 07/02/22 History Nitroglycerin Sl Tabs 0.3mg 0.3 mg SL Q5M PRN 05/31/22 07/02/22 History QUEtiapine [SEROquel] 150 mg PO HS 05/31/22 07/02/22 History hydrALAZINE HCL [Apresoline] 100 mg PO TID 05/31/22 07/02/22 History Acetaminophen Tab [Tylenol] 650 mg PO Q6HR PRN tab 06/05/22 07/02/22 Rx HYDROcodone/APAP 10-325MG [[place] 1 tab PO Q8H PRN #9 tab 06/05/22 07/02/22 Rx 10-325] Aspirin 81 mg PO DAILY #30 tab 06/12/22 07/02/22 Rx Furosemide [Lasix] 40 mg PO BID@0900,1600 #60 tab 06/12/22 07/02/22 Rx Potassium Chloride ER [K-Dur 20] 20 meq PO DAILY #14 tab 06/12/22 07/02/22 Rx carvediloL [Coreg*] 25 mg PO BID-W/MEALS #60 tab 06/12/22 07/02/22 Rx Albuterol Inhaler [Ventolin Hfa 1 - 2 puff INHALATION RT-Q6H PRN 06/26/22 07/02/22 Rx Inhaler] 30 Days #1 dispenser predniSONE See Taper PO DIRECTED 07/02/22 07/02/22 History Allergies Allergy/AdvReac Type Severity Reaction Status Date / Time lisinopril Allergy Angioedema., Verified 07/02/22 11:21 swollen testicle, rash Physical Exam Vitals: Vital Signs Temp Pulse Pulse Resp BP BP Pulse Ox 07/03/22 08:45 95 07/03/22 08:00 98.0 F 79 18 161/67 95 07/03/22 06:49 98.4 F 88 137/65 96 07/03/22 04:54 98.4 F 77 18 126/75 95 07/03/22 03:28 18 07/03/22 01:49 18 07/03/22 00:29 98.4 F 76 18 152/72 98 07/02/22 20:42 80 07/02/22 20:33 78 07/02/22 20:14 98.4 F 78 18 155/72 98 07/02/22 18:37 84 07/02/22 18:33 97.8 F 84 18 169/88 96 07/02/22 17:34 85 18 166/79 93 L 07/02/22 15:58 86 18 170/100 94 L 07/02/22 15:31 84 07/02/22 15:19 86 98 07/02/22 12:50 94 L 07/02/22 11:35 81 22 90 L Intake and Output 07/02/22 07/03/22 07/03/22 22:59 06:59 14:59 Output Total 350 Balance -350 Output: Urine 350 Other: Voiding Method Toilet Urinal Weight 52.163 kg 53.5 kg PHYSICAL EXAMINATION: This is a 72-year-old male in no apparent distress at the time of my examination. VITAL SIGNS: Blood pressure 161/67, heart rate 79, respirations 18, temp 98F. Patient is 95 % on 4 L via nasal cannula. HEENT: Head is atraumatic, normocephalic. Pupils are equal, round. Sclerae anicteric. Conjunctivae are clear. Mucous membranes of the mouth are moist. Neck is supple. There is no elevated jugular venous pressure. No carotid bruit is heard. CHEST EXAMINATION: Lungs reveal expiratory wheezing throughout with scattered rhonchi. Respirations even and nonlabored. HEART EXAMINATION: Heart regular, positive S1 and S2. No S3. No S4. Systolic ejection murmur at the base. ABDOMEN: Soft, nontender. Bowel sounds are heard. No organomegaly noted. EXTREMITIES: 2+ peripheral pulses with no evidence of peripheral edema and no calf tenderness noted. NEUROLOGIC EXAMINATION: Patient is awake, alert and oriented x3. Results 07/03/22 09:02 07/03/22 09:02 Cardiac Enzymes 07/02/22 07/02/22 Range/Units 12:52 15:17 Troponin I 0.083 H* 0.076 H* (0.000-0.034) ng/mL CBC 07/03/22 Range/Units 09:02 WBC 11.3 H (3.8-10.6) k/uL RBC 2.67 L (4.30-5.90) m/uL Hgb 9.5 L D (13.0-17.5) gm/dL Hct 30.2 L (39.0-53.0) % Plt Count 415 (150-450) k/uL Comprehensive Metabolic Panel 07/03/22 Range/Units 09:02 Sodium 136 L (137-145) mmol/L Potassium 3.9 (3.5-5.1) mmol/L Chloride 100 (98-107) mmol/L Carbon Dioxide 25 (22-30) mmol/L BUN 65 H (9-20) mg/dL Creatinine 2.72 H (0.66-1.25) mg/dL Glucose 138 H (74-99) mg/dL Calcium 7.9 L (8.4-10.2) mg/dL Current Medications Generic Name Dose Route Start Last Admin Trade Name Freq PRN Reason Stop Dose Admin Acetaminophen 650 mg 07/02/22 12:46 Acetaminophen Tab 325 Mg Tab PO Q6HR PRN Mild Pain or Fever > 100.5 Hydrocodone Bitart/Acetaminophen 1 each 07/02/22 12:46 Hydrocodone/Apap 10-325mg 1 Each Tab PO Q8H PRN Pain Albuterol/Ipratropium 3 ml 07/02/22 10:27 07/02/22 20:31 Ipratropium-Albuterol 3 Ml Neb INHALATION 3 ml RT-Q4H PRN Administration Dyspnea Amiodarone HCl 200 mg 07/04/22 09:00 Amiodarone 200 Mg Tab PO DAILY SUMMER Aspirin 81 mg 07/03/22 09:00 07/03/22 08:27 Aspirin 81 Mg PO 81 mg DAILY SUMMER Administration Atorvastatin Calcium 20 mg 07/02/22 21:00 07/02/22 20:57 Atorvastatin 20 Mg Tab PO 20 mg HS SUMMER Administration Budesonide/Formoterol Fumarate 2 puff 07/02/22 20:00 07/03/22 08:44 Symbicort 80-4.5 Mcg Inhaler INHALATION 2 puff RT-BID SUMMER Administration Carvedilol 25 mg 07/02/22 17:30 07/03/22 06:48 Carvedilol 12.5 Mg Tab PO 25 mg BID-W/MEALS SUMMER Administration Famotidine 20 mg 07/02/22 16:00 07/03/22 08:26 Famotidine 20 Mg Tab PO 20 mg DAILY SUMMER Administration Furosemide 40 mg 07/02/22 16:00 07/03/22 08:26 Furosemide 40 Mg Tab PO 40 mg BID@0900,1600 SUMMER Administration Heparin Sodium (Porcine) 5,000 unit 07/02/22 16:00 07/03/22 08:27 Heparin Sodium,Porcine/Pf 5,000 Unit/0.5 Ml Syringe SQ 5,000 unit Q8HR SUMMER Administration Hydralazine HCl 100 mg 07/02/22 16:00 07/03/22 08:25 Hydralazine Hcl 50 Mg Tab PO 100 mg TID SUMMER Administration Azithromycin 500 mg/ Sodium 250 mls @ 250 mls/hr 07/02/22 16:00 07/03/22 08:27 Chloride IVPB 07/05/22 16:01 250 mls/hr DAILY SUMMER Administration Protocol Cefepime HCl 1 gm/ Sodium 50 mls @ 12.5 mls/hr 07/02/22 21:00 07/03/22 08:27 Chloride IVPB 12.5 mls/hr Q12HR SUMMER Administration Protocol Isosorbide Mononitrate 30 mg 07/03/22 11:15 Isosorbide Mononitrate Er 30 Mg Tab.Er.24h PO DAILY SUMMER Losartan Potassium 50 mg 07/03/22 09:00 07/03/22 08:26 Losartan 50 Mg Tab PO 50 mg DAILY SUMMER Administration Melatonin 5 mg 07/02/22 21:00 07/02/22 20:57 Melatonin 5 Mg Tablet PO 5 mg HS SUMMER Administration Methylprednisolone Sodium Succinate 40 mg 07/03/22 09:00 07/03/22 08:26 Methylprednisolone Sod Succi 40 Mg/Ml 1 Ml Vial IV 40 mg DAILY SUMMER Administration Mirtazapine 30 mg 07/02/22 21:00 07/02/22 20:58 Mirtazapine 15 Mg Tab PO 30 mg HS SUMMER Administration Multivitamins 1 each 07/03/22 09:00 07/03/22 08:26 Multivitamins, Thera 1 Each Tab PO 1 each DAILY SUMMER Administration Naloxone HCl 0.2 mg 07/02/22 15:24 Naloxone 0.4 Mg/Ml 1 Ml Vial IV Q2M PRN Opioid Reversal Nitroglycerin 0.4 mg 07/02/22 15:25 Nitroglycerin Sl Tabs 0.4 Mg Tab SUBLINGUAL Q5M PRN Chest Pain Potassium Chloride 20 meq 07/03/22 09:00 07/03/22 08:26 Potassium Chloride Er 20 Meq Tab.Er PO 20 meq DAILY SUMMER Administration Quetiapine Fumarate 150 mg 07/02/22 21:00 07/02/22 20:58 Quetiapine 50 Mg Tab PO Not Given HS SUMMER Tamsulosin HCl 0.4 mg 07/03/22 09:00 07/03/22 08:27 Tamsulosin 0.4 Mg Cap.Er.24h PO 0.4 mg DAILY SUMMER Administration Intake and Output 07/02/22 07/03/22 07/03/22 22:59 06:59 14:59 Output Total 350 Balance -350 Output: Urine 350 Other: Voiding Method Toilet Urinal Weight 52.163 kg 53.5 kg 07/03/22 09:02 07/03/22 09:02 Assessment and Plan Assessment: #1 acute on chronic diastolic congestive heart failure #2 uncontrolled hypertension #3 COPD exacerbation #4 history of VT arrest in 2019 #5 mild nonobstructive CAD #6 history of colon cancer #7 recent bladder cancer with radiation and chemotherapy #8 chronic kidney disease #9 elevated troponins, consistent with previous levels, not indicative of acute coronary event. Plan: From gas engineer perspective we will decrease the amiodarone to once a day. We'll add isosorbide. Continue to diurese the patient. Patient would benefit from the addition of Farxiga or Jardiance as and outpatient. Discussed importance of following a low sodium diet of 1500 mg daily. Also discussed importance of smoking cessation. We will continue to follow the patient provide further recommendations accordingly. HUMAN RESOURCES ADMINISTRATOR note has been reviewed, I agree with a documented findings and plan of care. Patient was seen and examined.
--- NOTE | 2022-07-03 11:54 | P.CNPUL ---
History of Present Illness Consult date: 07/03/22 Requesting physician: Itzel Real Reason for consult: dyspnea, COPD, hypoxemia, abnormal CXR/CT Chief complaint: Shortness of breath. History of present illness: Pulmonary consult dated 07/03/2022. 72-year-old male with a history of CHF, COPD, and hypertension. The patient was recently inpatient for shortness of breath, thought to be secondary to both heart failure, and COPD. The patient was seen in the emergency department on July 02, with complaints of increasing and progressive shortness of breath, but low saturations. It been going on for a couple days prior to admission. He did have a cough, which is nonproductive. He also was wheezing. He attempted updraft treatments at home, with little benefit. For that reason, EMS was called, and he was brought back to the emergency department. His chest x-rays consistent with fluid overload/CHF. He had a very significantly increased N- terminal proBNP. Likely, his shortness of breath, is a combination of both of his COPD, and CHF. The patient does not see a gas analyst. I believe he gets his medical care, at the [facility], in [place]. His past medical history is positive for CHF, COPD, GERD, hyperlipidemia, hypertension, bladder cancer, colon cancer, cardiac arrest, stage IV chronic kidney disease, BPH, hemorrhoids, restless leg syndrome, and chronic low back pain. He's had multiple surgeries. He continues to smoke cigarettes. White count 11.3, hemoglobin 9.5, hematocrit 30.2, and platelet count 415,000. Sodium 136, potassium 3.9, chlorides 100, CO2 25, anion gap 11, BUN 65, and creatinine 2.72. Troponins were 0.102, 0.083, and 0.076. N-terminal proBNP was 83,800. The patient's pro-calcitonin level was 0.25. Chest x-ray and opinion was consistent with fluid overload/CHF, with interstitial edema. Review of Systems REVIEW OF SYSTEMS: CONSTITUTIONAL: [Negative.] NEUROLOGIC: [ Negative.] HEENT: [ Negative.] CARDIAC: [Negative.] PULMONARY: Shortness of breath, wheezing, and nonproductive cough. GI: [Negative.] : [Negative.] RHEUMATOLOGIC: [ Negative.] IMMUNOLOGIC: [ Negative.] ENDOCRINE: [Negative. ] DERMATOLOGIC: [Negative.] Past Medical History Past Medical History: Cancer, Heart Failure, COPD, GERD/Reflux, Hyperlipidemia, Hypertension, Prostate Disorder, Renal Disease Additional Past Medical History / Comment(s): Pt recently admitted to [facility] on 06/11/22 with acute on chronic CHF, hyperkalemia. Other hx: Recent bladder cancer/completed oral chemo and radiation, past colon cancer with resection, nonischemic cardiomyopathy, 2020 cardiac arrent/Vtach, CKD stage IV, BPH, hemorrhoids, anemia, RLS, chronic low back pain History of Any Multi-Drug Resistant Organisms: None Reported Past Surgical History: Appendectomy, Bowel Resection, Heart Catheterization, Orthopedic Surgery Additional Past Surgical History / Comment(s): R hemicolectomy, colonoscopies, nasal surgery to repair ulcer, R knee arthroscopic surgeries (ACL repair and meniscus repair), L heel fusion d/t trauma, L arm bicep surgery. Past Anesthesia/Blood Transfusion Reactions: No Reported Reaction Past Psychological History: Anxiety Smoking Status: Current every day smoker Past Alcohol Use History: None Reported Past Drug Use History: None Reported - Past Family History Mother Family Medical History: Cancer Additional Family Medical History / Comment(s): BREAST Sister(s) Family Medical History: Deep Vein Thrombosis (DVT) Additional Family Medical History / Comment(s): 1 sister had leukemia, and another sister had non hodgkins. Father Family Medical History: COPD Additional Family Medical History / Comment(s): FROM CARDIAC ARREST Medications and Allergies Home Medications Medication Instructions Recorded Confirmed Type Tamsulosin [Flomax] 0.4 mg PO DAILY 06/04/16 07/02/22 History Famotidine [Pepcid] 20 mg PO BID 06/08/20 07/02/22 History Multivitamins, Thera [Multivitamin 1 tab PO DAILY 06/08/20 07/02/22 History (formulary)] Atorvastatin Calcium [Lipitor] 20 mg PO HS 06/24/21 07/02/22 History Losartan [Cozaar] 50 mg PO DAILY 06/24/21 07/02/22 History Amiodarone [Cordarone] 200 mg PO BID 06/25/21 07/02/22 History Fluticasone Propion/Salmeterol 1 puff INHALATION RT-BID 08/27/21 07/02/22 History [Wixela 250-50 Inhub] Melatonin 5 mg PO HS 05/31/22 07/02/22 History Mirtazapine [Remeron] 30 mg PO HS 05/31/22 07/02/22 History Nitroglycerin Sl Tabs 0.3mg 0.3 mg SL Q5M PRN 05/31/22 07/02/22 History QUEtiapine [SEROquel] 150 mg PO HS 05/31/22 07/02/22 History hydrALAZINE HCL [Apresoline] 100 mg PO TID 05/31/22 07/02/22 History Acetaminophen Tab [Tylenol] 650 mg PO Q6HR PRN tab 06/05/22 07/02/22 Rx HYDROcodone/APAP 10-325MG [[place] 1 tab PO Q8H PRN #9 tab 06/05/22 07/02/22 Rx 10-325] Aspirin 81 mg PO DAILY #30 tab 06/12/22 07/02/22 Rx Furosemide [Lasix] 40 mg PO BID@0900,1600 #60 tab 06/12/22 07/02/22 Rx Potassium Chloride ER [K-Dur 20] 20 meq PO DAILY #14 tab 06/12/22 07/02/22 Rx carvediloL [Coreg*] 25 mg PO BID-W/MEALS #60 tab 06/12/22 07/02/22 Rx Albuterol Inhaler [Ventolin Hfa 1 - 2 puff INHALATION RT-Q6H PRN 06/26/22 07/02/22 Rx Inhaler] 30 Days #1 dispenser predniSONE See Taper PO DIRECTED 07/02/22 07/02/22 History Allergies Allergy/AdvReac Type Severity Reaction Status Date / Time lisinopril Allergy Angioedema., Verified 07/02/22 11:21 swollen testicle, rash Physical Exam Osteopathic Statement: *. No significant issues noted on an osteopathic structural exam other than those noted in the History and Physical/Consult. Vitals: Vital Signs Temp Pulse Pulse Resp BP BP Pulse Ox 07/03/22 08:45 95 07/03/22 08:00 98.0 F 79 18 161/67 95 07/03/22 06:49 98.4 F 88 137/65 96 07/03/22 04:54 98.4 F 77 18 126/75 95 07/03/22 03:28 18 07/03/22 01:49 18 07/03/22 00:29 98.4 F 76 18 152/72 98 07/02/22 20:42 80 07/02/22 20:33 78 07/02/22 20:14 98.4 F 78 18 155/72 98 07/02/22 18:37 84 07/02/22 18:33 97.8 F 84 18 169/88 96 07/02/22 17:34 85 18 166/79 93 L 07/02/22 15:58 86 18 170/100 94 L 07/02/22 15:31 84 07/02/22 15:19 86 98 07/02/22 12:50 94 L Intake and Output 07/02/22 07/03/22 07/03/22 22:59 06:59 14:59 Output Total 350 Balance -350 Output: Urine 350 Other: Voiding Method Toilet Urinal Weight 52.163 kg 53.5 kg No acute distress, oriented 3. No conversational dyspnea, or use of accessory muscles. When we saw the patient, he was on room air. He did look very comfortable. HEENT examination is grossly unremarkable. Neck supple. Full range of motion. No adenopathy thyromegaly or neck vein distention. Cardiovascular examination reveals regular rhythm rate. S1-S2 normal. No S3 or S4. No discernible murmur noted. Heart rate 79 bpm. Lungs reveal scattered bilateral rhonchi and wheezes. There is also crackles at the bases. Breath sounds equal bilaterally. Saturations are 95%. Abdomen soft bowel sounds are heard. No masses or tenderness. Extremities are intact. No cyanosis clubbing or edema. Skin is without rash or lesion. Neurologic examination is brief but nonfocal. Results - Laboratory Findings CBC and BMP: 07/03/22 09:02 07/03/22 09:02 PT/INR, D-dimer PT 10.7 sec (9.0-12.0) 07/02/22 07:32 INR 1.0 (<1.2) 07/02/22 07:32 Abnormal lab findings: Abnormal Labs 07/02/22 07/02/22 07/02/22 07:32 07:32 07:32 WBC 13.5 H RBC 3.20 L Hgb 11.0 L Hct 35.5 L MCV 110.9 H MCH MCHC 30.9 L RDW 16.2 H Plt Count 488 H Neutrophils # 12.0 H Lymphocytes # 0.5 L Macrocytosis Marked A Sodium 134 L BUN 56 H Creatinine 2.43 H Glucose Calcium 8.3 L Magnesium Troponin I 0.102 H* Procalcitonin 07/02/22 07/02/22 07/02/22 07:32 12:52 15:17 WBC RBC Hgb Hct MCV MCH MCHC RDW Plt Count Neutrophils # Lymphocytes # Macrocytosis Sodium BUN Creatinine Glucose Calcium Magnesium Troponin I 0.083 H* 0.076 H* Procalcitonin 0.25 H 07/03/22 07/03/22 09:02 09:02 WBC 11.3 H RBC 2.67 L Hgb 9.5 L D Hct 30.2 L MCV 113.1 H MCH 35.4 H MCHC RDW 16.8 H Plt Count Neutrophils # 10.4 H Lymphocytes # 0.4 L Macrocytosis Marked A Sodium 136 L BUN 65 H Creatinine 2.72 H Glucose 138 H Calcium 7.9 L Magnesium 2.7 H Troponin I Procalcitonin - Diagnostic Findings Chest x-ray: image reviewed Assessment and Plan Assessment: Shortness of breath, likely multifactorial, in part related to COPD exacerbation, and also CHF. Multiple recent admissions to this hospital, for shortness of breath, thought to be related to both COPD and CHF. Ongoing tobacco use with nicotine addiction. History of colon cancer, with previous resection. History of bladder cancer, status post chemoradiation. History of hypertension. History of hyperlipidemia. History of gastroesophageal reflux disease. History of cardiac arrest, 2019. History of stage IV chronic kidney disease. History of BPH. History of anemia. History of restless leg syndrome. Plan: Plan dated 07/03/2022. Labs, x-rays, and medications are reviewed. The first sign out of the patient's mouth was whether or not he could be discharged. The patient does need follow- up in the pulmonary office, for pulmonary function testing, and better characterization of his COPD. He is counseled about the importance of smoking cessation. His medications will be reviewed, and adjusted accordingly. He should be on updrafts with albuterol sulfate and ipratropium bromide, May D when necessary. In addition, the patient should be on Symbicort 160/4.5, 2 puffs twice a day, and Solu-Medrol, 40-60 mg IV push every 6 hours. I see that the patient is currently on azithromycin, and cefepime. Antibiotics can probably BD escalated as his pro-calcitonin level is minimally elevated. Additional recommendations and suggestions are forthcoming. Time with Patient: Greater than 30
[2022-07-03] MEDS ORDERED: IPRATROPIUM-ALBUTEROL 3 ML NEB INHALATION PRN (11:55)
[2022-07-03] MEDS: IPRATROPIUM-ALBUTEROL 3 ML NEB INHALATION SCH ×3 (12:08→20:10)
--- NOTE | 2022-07-03 12:23 | P.PN ---
Subjective Progress Note Date: 07/03/22 Principal diagnosis: sob Feeling better today, no significant sob. Still with chronic cough. No fevers. No chills. Objective - Vital Signs Vital signs: Vital Signs Temp 98.0 F 07/03/22 08:00 Pulse 79 07/03/22 08:00 Resp 18 07/03/22 08:00 BP 161/67 07/03/22 08:00 Pulse Ox 95 07/03/22 08:45 FiO2 Intake & Output 07/02/22 07/03/22 07/03/22 18:59 06:59 18:59 Output Total 350 Balance -350 Weight 52.163 kg 53.5 kg Output: Urine 350 Other: Voiding Method Toilet Urinal - Exam Constitutional: No acute distress, conversant, pleasant Eyes:Anicteric sclerae, moist conjunctiva, no lid-lag, PERRLA, ENMT: Oropharynx clear, no erythema, exudates Neck: Supple, FROM, no masses, or JVD, No carotid bruits, No thyromegaly Lungs: Scattered rhonchi, Clear to percussion, Normal respiratory effort, no accessory muscle use Cardiovascular: Heart regular in rate and rhythm, No murmurs, gallops, or rubs, No peripheral edema Abdominal: Soft, Nontender, no guarding, rebound or rigidity, Normoactive bowel sounds, No hepatomegaly, No splenomegaly, No palpable mass Skin: Normal temperature, tone, texture, turgor, no induration, No subcutaneous nodules, No rash, lesions, No ulcers Extremities: No digital cyanosis, No clubbing, Pedal pulses intact and symmetrical, Radial pulses intact and symmetrical, No calf tenderness Psychiatric: Alert and oriented to person, place and time, appropriate affect, intact judgement Neuro: Muscles Strength 5/5 in all 4 extremities, Sensation to light touch grossly present throughout, Cranial nerves II-XII grossly intact, no focal sensory deficits - Labs CBC & Chem 7: 07/03/22 09:02 07/03/22 09:02 Labs: Abnormal Lab Results - Last 24 Hours (Table) 07/02/22 07/02/22 07/02/22 Range/Units 07:32 12:52 15:17 WBC (3.8-10.6) k/uL RBC (4.30-5.90) m/uL Hgb (13.0-17.5) gm/dL Hct (39.0-53.0) % MCV (80.0-100.0) fL MCH (25.0-35.0) pg RDW (11.5-15.5) % Neutrophils # (1.3-7.7) k/uL Lymphocytes # (1.0-4.8) k/uL Macrocytosis Sodium (137-145) mmol/L BUN (9-20) mg/dL Creatinine (0.66-1.25) mg/dL Glucose (74-99) mg/dL Calcium (8.4-10.2) mg/dL Magnesium (1.6-2.3) mg/dL Troponin I 0.083 H* 0.076 H* (0.000-0.034) ng/mL Procalcitonin 0.25 H (0.02-0.09) ng/mL 07/03/22 07/03/22 Range/Units 09:02 09:02 WBC 11.3 H (3.8-10.6) k/uL RBC 2.67 L (4.30-5.90) m/uL Hgb 9.5 L D (13.0-17.5) gm/dL Hct 30.2 L (39.0-53.0) % MCV 113.1 H (80.0-100.0) fL MCH 35.4 H (25.0-35.0) pg RDW 16.8 H (11.5-15.5) % Neutrophils # 10.4 H (1.3-7.7) k/uL Lymphocytes # 0.4 L (1.0-4.8) k/uL Macrocytosis Marked A Sodium 136 L (137-145) mmol/L BUN 65 H (9-20) mg/dL Creatinine 2.72 H (0.66-1.25) mg/dL Glucose 138 H (74-99) mg/dL Calcium 7.9 L (8.4-10.2) mg/dL Magnesium 2.7 H (1.6-2.3) mg/dL Troponin I (0.000-0.034) ng/mL Procalcitonin (0.02-0.09) ng/mL Assessment and Plan Plan: COPD exacerbation Acute hypoxic respiratory Failure Healthcare associated pneumonia -Admit inpatient, telemetry -Pulmonary consult -DuoNeb's every 4 hours -Albuterol when necessary -Solu-Medro -Abx deescalated to augmentin, pro calcitonin elevated, follow up blood cx. -Oxygen as needed Acutet on chronic diastolic heart failure -Seen by cardio -Continue diuresis with lasix -Cardio adding imdur and decreasing amiodarone dose to once daily. CAD Hypertension Hyperlipidemia Chronic kidney disease, stage IIIB Seizure disorder BPH Depression History of ventricular tachycardia -Home medications reviewed and reconciled Patient is full code DVT prophylaxis with heparin 3 times a day
[2022-07-03] MEDS: methylPREDNISolone SOD SUCCI 125 MG/2 ML VIAL IV SCH ×3 (12:48→23:51)
[2022-07-03] MEDS: ISOSORBIDE MONONITRATE ER 30 MG TAB.ER.24H PO SCH (12:48)
[2022-07-03 13:11] VITALS: BMI 18.4
[2022-07-03] MEDS: HYDROcodone/APAP 10-325MG 1 EACH TAB PO PRN ×2 (16:31→23:51)
[2022-07-03] MEDS: SYMBICORT 160-4.5 MCG INHALER INHALATION SCH (20:10)
[2022-07-03] MEDS: MIRTAZAPINE 15 MG TAB PO SCH (20:19)
[2022-07-03] MEDS: ATORVASTATIN 20 MG TAB PO SCH (20:20)
[2022-07-03] MEDS: AMOXIC-POT CLAV 875-125MG 1 EACH TAB PO SCH (20:20)
[2022-07-03] MEDS: MELATONIN 5 MG TABLET PO SCH (20:20)
[2022-07-03] MEDS: QUEtiapine 50 MG TAB PO SCH (20:20)
[2022-07-04] MEDS: methylPREDNISolone SOD SUCCI 125 MG/2 ML VIAL IV SCH (06:42)
[2022-07-04] MEDS: carvediloL 12.5 MG TAB PO SCH (06:42)
[2022-07-04] MEDS: SYMBICORT 160-4.5 MCG INHALER INHALATION SCH (08:16)
[2022-07-04] MEDS: IPRATROPIUM-ALBUTEROL 3 ML NEB INHALATION SCH ×2 (08:16→11:45)
[2022-07-04] MEDS: hydrALAZINE HCL 50 MG TAB PO SCH (08:36)
[2022-07-04] MEDS: POTASSIUM CHLORIDE ER 20 MEQ TAB.ER PO SCH (08:36)
[2022-07-04] MEDS: ASPIRIN 81 MG PO SCH (08:36)
[2022-07-04] MEDS: AMOXIC-POT CLAV 875-125MG 1 EACH TAB PO SCH (08:36)
[2022-07-04] MEDS: ISOSORBIDE MONONITRATE ER 30 MG TAB.ER.24H PO SCH (08:36)
[2022-07-04] MEDS: MULTIVITAMINS, THERA 1 EACH TAB PO SCH (08:36)
[2022-07-04] MEDS: LOSARTAN 50 MG TAB PO SCH (08:37)
[2022-07-04] MEDS: FAMOTIDINE 20 MG TAB PO SCH (08:37)
[2022-07-04] MEDS: FUROSEMIDE 40 MG TAB PO SCH (08:37)
[2022-07-04] MEDS: HEPARIN SODIUM,PORCINE/PF 5,000 UNIT/0.5 ML SYRINGE SQ SCH (08:37)
[2022-07-04] MEDS: TAMSULOSIN 0.4 MG CAP.ER.24H PO SCH (08:37)
[2022-07-04 09:00] LABS: Calcium 8.1 mg/dL (8.4-10.2); Potassium 3.9 mmol/L (3.5-5.1)
[2022-07-04] MEDS ORDERED: AMIODARONE 200 MG TAB PO SCH (09:00)
--- NOTE | 2022-07-04 10:05 | P.DS ---
Providers Date of admission: 07/02/22 10:25 Expected date of discharge: 07/04/22 Attending physician: Itzel Real MD Consults: 07/02/22 10:25 Consult Physician Routine Consulting Provider: [facility] Consult Reason/Comments: chf exacerbation, elevated troponin Do you want consulting provider notified?: Yes 07/02/22 15:24 Consult Physician Routine Consulting Provider: Ashvin Rivas Consult Reason/Comments: copd Do you want consulting provider notified?: Yes Primary care physician: [facility] Hospital Course: 72-year-old male with past medical history remarkable for hypertension, dyslipidemia, aborted cardiac , non ischemic cardiomyopathy with prior systolic dysfunction and last ejection fraction 50-55% in May 2022 who presents emergency Department for Worsening shortness of breath over the last couple days. He states that he was exposed to a dirty basement and a paint smell while his son was painting his car. Endorses coughing with chronic phlegm production. He has some pleuritic chest pain but denies fevers, sick contacts. Denies nausea, vomiting, diarrhea, abdominal pain. Denies worsening lower extremity edema. States he is compliant with medications. His oxygen saturation in the emergency department were 82% on 2 L which he does not require at home. He was requiring 3 L in the emergency department. ER evaluation also revealed hypertension with blood pressure 180/80. Chest x-ray showed perihilar infiltrates. Labs showed leukocytosis of 13,000. Troponin was 0.1, then trended down to 0.08. Influenza, Covid negative. Creatinine 2.43 which is chronic. ProBNP 83,000 which is chronic. Patient was admitted, he was started on IV steroids, DuoNeb's as well as broad- spectrum antibiotics due to suspicion of hospital-acquired pneumonia. However progressively was checked, came back mildly elevated. Therefore antibiotics were scaled down to Augmentin. Patient was seen by pulmonary service as well as cardiology. Cardiac decreased amiodarone to once daily and added Imdur to his regimen. The next day patient was feeling better already. Most likely symptoms were related to inhaling his basement dust as well as a paint that he was exposed to. He is currently doing well. He will be discharged in stable condition. Time for discharge 35 minutes Patient Condition at Discharge: Serious Plan - Discharge Summary Discharge Rx Participant: No New Discharge Prescriptions: New RX: Amoxic-Pot Clav 875-125Mg [Augmentin 875-125] 1 each PO Q12HR 5 Days #10 tab RX: Isosorbide Mononitrate ER [Imdur] 30 mg PO DAILY 30 Days #30 tab RX: Amiodarone [Cordarone] 200 mg PO DAILY tab methylPREDNISolone Dose Pack [Medrol Dose Pack] 4 mg PO DIRECTED #1 packet Continue RX: Tamsulosin [Flomax] 0.4 mg PO DAILY RX: Multivitamins, Thera [Multivitamin (formulary)] 1 tab PO DAILY RX: Famotidine [Pepcid] 20 mg PO BID RX: Atorvastatin Calcium [Lipitor] 20 mg PO HS Nitroglycerin Sl Tabs 0.3mg 0.3 mg SL Q5M PRN PRN Reason: Chest Pain RX: hydrALAZINE HCL [Apresoline] 100 mg PO TID RX: Mirtazapine [Remeron] 30 mg PO HS RX: carvediloL [Coreg*] 25 mg PO BID-W/MEALS #60 tab RX: Potassium Chloride ER [K-Dur 20] 20 meq PO DAILY #14 tab RX: Furosemide [Lasix] 40 mg PO BID@0900,1600 #60 tab RX: Albuterol Inhaler [Ventolin Hfa Inhaler] 1 - 2 puff INHALATION RT-Q6H PRN 30 Days #1 dispenser PRN Reason: Shortness Of Breath RX: Losartan [Cozaar] 50 mg PO DAILY RX: Fluticasone Propion/Salmeterol [[place]ela 250-50 Inhub] 1 puff INHALATION RT-BID RX: Melatonin 5 mg PO HS RX: QUEtiapine [SEROquel] 150 mg PO HS RX: Acetaminophen Tab [Tylenol] 650 mg PO Q6HR PRN tab PRN Reason: Mild Pain Or Fever > 100.5 RX: HYDROcodone/APAP 10-325MG [[place] 10-325] 1 tab PO Q8H PRN #9 tab PRN Reason: Pain RX: Aspirin 81 mg PO DAILY #30 tab Discontinued RX: Amiodarone [Cordarone] 200 mg PO BID RX: predniSONE See Taper PO DIRECTED Discharge Medication List RX: Tamsulosin [Flomax] 0.4 mg PO DAILY 06/04/16 [History] RX: Famotidine [Pepcid] 20 mg PO BID 06/08/20 [History] RX: Multivitamins, Thera [Multivitamin (formulary)] 1 tab PO DAILY 06/08/20 [History] RX: Atorvastatin Calcium [Lipitor] 20 mg PO HS 06/24/21 [History] RX: Losartan [Cozaar] 50 mg PO DAILY 06/24/21 [History] RX: Fluticasone Propion/Salmeterol [Wixela 250-50 Inhub] 1 puff INHALATION RT- BID 08/27/21 [History] Nitroglycerin Sl Tabs 0.3mg 0.3 mg SL Q5M PRN 05/31/22 [History] RX: Melatonin 5 mg PO HS 05/31/22 [History] RX: Mirtazapine [Remeron] 30 mg PO HS 05/31/22 [History] RX: QUEtiapine [SEROquel] 150 mg PO HS 05/31/22 [History] RX: hydrALAZINE HCL [Apresoline] 100 mg PO TID 05/31/22 [History] RX: Acetaminophen Tab [Tylenol] 650 mg PO Q6HR PRN tab 06/05/22 [Rx] RX: HYDROcodone/APAP 10-325MG [[place] 10-325] 1 tab PO Q8H PRN #9 tab 06/05/22 [Rx] RX: Aspirin 81 mg PO DAILY #30 tab 06/12/22 [Rx] RX: Furosemide [Lasix] 40 mg PO BID@0900,1600 #60 tab 06/12/22 [Rx] RX: Potassium Chloride ER [K-Dur 20] 20 meq PO DAILY #14 tab 06/12/22 [Rx] RX: carvediloL [Coreg*] 25 mg PO BID-W/MEALS #60 tab 06/12/22 [Rx] RX: Albuterol Inhaler [Ventolin Hfa Inhaler] 1 - 2 puff INHALATION RT-Q6H PRN 30 Days #1 dispenser 06/26/22 [Rx] RX: Amiodarone [Cordarone] 200 mg PO DAILY tab 07/04/22 [Rx] RX: Amoxic-Pot Clav 875-125Mg [Augmentin 875-125] 1 each PO Q12HR 5 Days #10 tab 07/04/22 [Rx] RX: Isosorbide Mononitrate ER [Imdur] 30 mg PO DAILY 30 Days #30 tab 07/04/22 [Rx] methylPREDNISolone Dose Pack [Medrol Dose Pack] 4 mg PO DIRECTED #1 packet 07/04/22 [Rx] Follow up Appointment(s)/Referral(s): [facility],Clinic [Primary Care Provider] - 1-2 days
[2022-07-04 10:25] VITALS: BP 142/67; PULSE 67; RESP 18; TEMP 97.6
--- NOTE | 2022-07-04 11:18 | P.PN ---
Subjective Progress Note Date: 07/04/22 Principal diagnosis: Shortness of breath. Pulmonary consult dated 07/03/2022. 72-year-old male with a history of CHF, COPD, and hypertension. The patient was recently inpatient for shortness of breath, thought to be secondary to both heart failure, and COPD. The patient was seen in the emergency department on July 02, with complaints of increasing and progressive shortness of breath, but low saturations. It been going on for a couple days prior to admission. He did have a cough, which is nonproductive. He also was wheezing. He attempted updraft treatments at home, with little benefit. For that reason, EMS was called, and he was brought back to the emergency department. His chest x-rays consistent with fluid overload/CHF. He had a very significantly increased N- terminal proBNP. Likely, his shortness of breath, is a combination of both of his COPD, and CHF. The patient does not see a bessemer bottom maker. I believe he gets his medical care, at the [facility], in [place]. His past medical history is positive for CHF, COPD, GERD, hyperlipidemia, hypertension, bladder cancer, colon cancer, cardiac arrest, stage IV chronic kidney disease, BPH, hemorrhoids, restless leg syndrome, and chronic low back pain. He's had multiple surgeries. He continues to smoke cigarettes. White count 11.3, hemoglobin 9.5, hematocrit 30.2, and platelet count 415,000. Sodium 136, potassium 3.9, chlorides 100, CO2 25, anion gap 11, BUN 65, and creatinine 2.72. Troponins were 0.102, 0.083, and 0.076. N-terminal proBNP was 83,800. The patient's pro-calcitonin level was 0.25. Tyra st x-ray and opinion was consistent with fluid overload/CHF, with interstitial edema. Progress note dated 07/04/2022. The patient is currently resting comfortably, and seen again in room 376. He's not receiving any IV fluids, and is not receiving any supplemental oxygen. He presented with shortness of breath, likely multifactorial, in part related to COPD exacerbation, and CHF. Laboratory data today includes a sodium 135, potassium 3.9, CO2 24, anion gap 12, BUN 78, and creatinine 3.36. His repeat N- terminal proBNP was 87,400. Objective - Vital Signs Vital signs: Vital Signs Temp 97.6 F 07/04/22 08:00 Pulse 72 07/04/22 08:32 Resp 18 07/04/22 08:00 BP 142/67 07/04/22 08:00 Pulse Ox 98 07/04/22 08:16 FiO2 Intake & Output 07/03/22 07/04/22 07/04/22 18:59 06:59 18:59 Intake Total 834 485 725 Output Total 1400 800 300 Balance -566 -315 425 Weight 53.5 kg Intake: Oral 834 485 725 Output: Urine 1400 800 300 Other: Voiding Method Toilet Toilet Urinal Urinal - Exam No acute distress, oriented 3. No conversational dyspnea, or use of accessory muscles. When we saw the patient, he was on room air. HEENT examination is grossly unremarkable. Neck supple. Full range of motion. No adenopathy thyromegaly or neck vein distention. Cardiovascular examination reveals regular rhythm rate. S1-S2 normal. No S3 or S4. No discernible murmur noted. Heart rate 72 bpm. Lungs reveal scattered bilateral rhonchi and wheezes. There is also crackles at the bases. Breath sounds equal bilaterally. Saturations are 98 %. Abdomen soft bowel sounds are heard. No masses or tenderness. Extremities are intact. No cyanosis clubbing or edema. Skin is without rash or lesion. Neurologic examination is brief but nonfocal. - Labs CBC & Chem 7: 07/03/22 09:02 07/04/22 07:29 Labs: Abnormal Lab Results - Last 24 Hours (Table) 07/04/22 Range/Units 07:29 Sodium 135 L (137-145) mmol/L BUN 78 H (9-20) mg/dL Creatinine 3.36 H (0.66-1.25) mg/dL Glucose 145 H (74-99) mg/dL Calcium 8.1 L (8.4-10.2) mg/dL Microbiology - Last 24 Hours (Table) 07/02/22 17:27 Blood Culture - Preliminary Blood No Growth after 24 hours 07/02/22 17:19 Blood Culture - Preliminary Blood No Growth after 24 hours Assessment and Plan Assessment: Shortness of breath, likely multifactorial, in part related to COPD exacerbation, and also CHF. Multiple recent admissions to this hospital, for shortness of breath, thought to be related to both COPD and CHF. Ongoing tobacco use with nicotine addiction. History of colon cancer, with previous resection. History of bladder cancer, status post chemoradiation. History of hypertension. History of hyperlipidemia. History of gastroesophageal reflux disease. History of cardiac arrest, 2019. History of stage IV chronic kidney disease. History of BPH. History of anemia. History of restless leg syndrome. Plan: Plan dated 07/03/2022. Labs, x-rays, and medications are reviewed. The first sign out of the patient's mouth was whether or not he could be discharged. The patient does need follow- up in the pulmonary office, for pulmonary function testing, and better characterization of his COPD. He is counseled about the importance of smoking cessation. His medications will be reviewed, and adjusted accordingly. He should be on updrafts with albuterol sulfate and ipratropium bromide, Daniella D whe n necessary. In addition, the patient should be on Symbicort 160/4.5, 2 puffs twice a day, and Solu-Medrol, 40-60 mg IV push every 6 hours. I see that the patient is currently on azithromycin, and cefepime. Antibiotics can probably BD escalated as his pro-calcitonin level is minimally elevated. Additional recommendations and suggestions are forthcoming. Plan dated 07/04/2022. Yesterday, we saw the patient, he wanted to be discharged home. The patient appears to turn around very quickly. I suspect her primary issue is the heart failure, rather than the COPD. Nonetheless, the patient is doing better. Labs, x-rays, and medications are reviewed. We will continue to follow the patient and make recommendations along the way. Prognosis is certainly guarded. Time with Patient: Less than 30
--- NOTE | 2022-07-04 12:03 | P.PN ---
Subjective Progress Note Date: 07/04/22 PROGRESS NOTE The patient resents with symptoms of progressive dyspnea, exacerbation of COPD and congestive heart failure with diastolic dysfunction. He's feeling much better today. His breathing is better. His cough is better. He denies any nausea or vomiting. He is being discharged home. Medications: Amiodarone 200 mg daily, aspirin, Coreg 25 mg twice a day, Lasix 40 mg twice a day, hydralazine 20 mg 3 times a day, isosorbide 30 mg daily, losartan 50 mg daily, Flomax PHYSICAL EXAMINATION: Blood pressure 132/60 heart rate 70 LUNGS: Decreased breath sounds bilaterally HEART: Regular rate and rhythm, S1, S2. No S3. systolic ejection murmur ABDOMEN: Soft, nontender, no organomegaly EXTREMETIES: No edema LAB: Hemoglobin 9.5, white blood cell 11.3, BUN 78, creatinine 3.36 IMPRESSION: 1. Shortness of breath, multifactorial with COPD and CHF with diastolic dysfunction 2. Chronic tobacco use 3. Chronic kidney disease 4. Hypertension PLAN: 1. Continue present therapy 2. Smoking cessation 3. Follow renal functions 4. Follow-up as an outpatient Objective - Vital Signs Vital signs: Vital Signs Temp 97.6 F 07/04/22 08:00 Pulse 72 07/04/22 08:32 Resp 18 07/04/22 08:00 BP 142/67 07/04/22 08:00 Pulse Ox 98 07/04/22 08:16 FiO2 Intake & Output 07/03/22 07/04/22 07/04/22 18:59 06:59 18:59 Intake Total 834 485 725 Output Total 1400 800 300 Balance -566 -315 425 Weight 53.5 kg Intake: Oral 834 485 725 Output: Urine 1400 800 300 Other: Voiding Method Toilet Toilet Urinal Urinal - Labs CBC & Chem 7: 07/03/22 09:02 07/04/22 07:29 Labs: Abnormal Lab Results - Last 24 Hours (Table) 07/04/22 Range/Units 07:29 Sodium 135 L (137-145) mmol/L BUN 78 H (9-20) mg/dL Creatinine 3.36 H (0.66-1.25) mg/dL Glucose 145 H (74-99) mg/dL Calcium 8.1 L (8.4-10.2) mg/dL Microbiology - Last 24 Hours (Table) 07/02/22 17:27 Blood Culture - Preliminary Blood No Growth after 24 hours 07/02/22 17:19 Blood Culture - Preliminary Blood No Growth after 24 hours
--- NOTE | 2022-07-07 11:53 | CDI ---
Documentation Clarification Form Date: 07/07/2022 11:48:00 AM From: Khadra Schroeder Admit Date: 07/02/2022 10:25:00 AM Patient Name: Rey Child Visit Number: [id number] Discharge Date: 07/04/2022 01:34:00 PM ATTENTION: The Clinical Documentation Specialists (CDI) and [facility] Coding Staff appreciate your assistance in clarifying documentation. Please respond to the clarification below the line at the bottom and electronically sign. The CDI & [facility] Coding staff will review the response and follow-up if needed. Please note: Queries are made part of the Legal Health Record. If you have any questions, please contact the author of this message via ITS. Dr. Gisella Nieto HCAP/Pneumonia is documented in the H&P, progress note, and Discharge Summary. Treated with broad spectrum antibiotics, but them felt to be due to inhalation of dust and paint. Please clarify if patient had pneumonia or if pneumonia was ruled out. History/Risk Factors: Patient exposed to dirty basement and inhaled paint and dust. CHF, Copd, smoker, AHRF Clinical Indicators: WBC/Left shift: 13.5, 11.3 X-ray: perihilar infiltrates Lung/Breathing assessment: O2 sats 84% Treatment: broad spectrum antibiotics Antibiotics: switched to augmentin O2: NC 4 L Breathing Tx: Duoneb and Albuterol Please clarify if patient had pneumonia or ruled out: [ ] HAC Pneumonia [ ] HAC Pneumonia ruled out [ ] Other, please specify [ ] Unable to determine HAC Pneumonia MTDD
== END 2022-07-04 13:34 | disposition home health service (06) | DRG 193 ==
LOC: EC 06:52 → 3SCARD 10:25
PROVIDERS: ADMIT Internal Medicine; ATTEND Internal Medicine
DX: J18.9 Pneumonia, unspecified organism (principal); I50.33 Acute on chronic diastolic (congestive) heart failure; J96.01 Acute respiratory failure with hypoxia; I13.0 Hypertensive heart and chronic kidney disease with heart failure and stage 1 through stage 4 chronic kidney disease, or unspecified chronic kidney disease; J44.0 Chronic obstructive pulmonary disease with (acute) lower respiratory infection; J44.1 Chronic obstructive pulmonary disease with (acute) exacerbation; I47.2 Ventricular tachycardia; I42.8 Other cardiomyopathies; T59.891A Toxic effect of other specified gases, fumes and vapors, accidental (unintentional), initial encounter; D50.9 Iron deficiency anemia, unspecified; E78.5 Hyperlipidemia, unspecified; F41.9 Anxiety disorder, unspecified; G25.81 Restless legs syndrome; G40.909 Epilepsy, unspecified, not intractable, without status epilepticus; I25.10 Atherosclerotic heart disease of native coronary artery without angina pectoris; F17.210 Nicotine dependence, cigarettes, uncomplicated; F32.A Depression, unspecified; Z20.822 Contact with and (suspected) exposure to COVID-19; N40.0 Benign prostatic hyperplasia without lower urinary tract symptoms; Y95 Nosocomial condition; I49.3 Ventricular premature depolarization; R77.8 Other specified abnormalities of plasma proteins; K21.9 Gastro-esophageal reflux disease without esophagitis; G89.29 Other chronic pain; M54.50 Low back pain, unspecified; N18.32 Chronic kidney disease, stage 3b; T50.906A Underdosing of unspecified drugs, medicaments and biological substances, initial encounter; Z91.128 Patient's intentional underdosing of medication regimen for other reason; Z71.6 Tobacco abuse counseling; Z86.74 Personal history of sudden cardiac arrest; Z79.82 Long term (current) use of aspirin; Z79.899 Other long term (current) drug therapy; Z85.038 Personal history of other malignant neoplasm of large intestine; Z85.51 Personal history of malignant neoplasm of bladder; Z90.49 Acquired absence of other specified parts of digestive tract; Z92.21 Personal history of antineoplastic chemotherapy; Z92.3 Personal history of irradiation; Z71.3 Dietary counseling and surveillance; Z88.8 Allergy status to other drugs, medicaments and biological substances; Z82.5 Family history of asthma and other chronic lower respiratory diseases
CPT/HCPCS: 36415; 71046; 80048; 80053; 83735; 83880; 84145; 84484; 85025; 85610; 85730; 87040; 87636; 93005; 94640; 94760; 96365; 96366; 96367; 96372; 96375; 99285

== ENCOUNTER 2022-07-10 22:59 | Observation (INO) | payer MEDICARE, OTHER ==
[2022-07-11] MEDS ORDERED: ASPIRIN 81 MG PO STA (00:43)
[2022-07-11] MEDS ORDERED: FUROSEMIDE 10 MG/ML 4 ML VIAL IV STA (00:43)
--- NOTE | 2022-07-11 01:23 | ED ---
General Adult HPI - General Chief complaint: Shortness of Breath Stated complaint: Shortness of Breath Time Seen by Provider: 07/11/22 00:30 Source: patient, family, RN notes reviewed, old records reviewed Mode of arrival: wheelchair Limitations: no limitations - History of Present Illness Initial comments: Patient is a 72-year-old male with past medical history remarkable for COPD, chronic CHF, hypertension, who is been frequently here in the past presents emergency department once again for shortness of breath. States he was discharged home last week. States that over the last few days, he is having worsening exertional shortness of breath. Endorses worsening lower extremity swelling. Endorses worsening nonproductive cough. Endorses worsening orthopnea. Denies PND. Denies chest pain. Denies nausea or vomiting. Denies abdominal pain. States he has been compliant with medications. Denies any other acute complaints at this time. Presents over concern for worsening shortness of breath. Is not on oxygen at home. Denies any fevers, chills.I evaluated the patient last time he presented. He states he tends to go home, and does not believe that the oral diuretic medications help. He begins having a dry nonproductive cough, lower extremity edema, subjective exertional shortness of breath. States he feels fine when he goes home. Does not think that the oral diuretic medications are working and feels these may need to be c hanged. This is similar to the last time he presented. - Related Data Home Medications Medication Instructions Recorded Confirmed Tamsulosin [Flomax] 0.4 mg PO DAILY 06/04/16 07/02/22 Famotidine [Pepcid] 20 mg PO BID 06/08/20 07/02/22 Multivitamins, Thera [Multivitamin 1 tab PO DAILY 06/08/20 07/02/22 (formulary)] Atorvastatin Calcium [Lipitor] 20 mg PO HS 06/24/21 07/02/22 Losartan [Cozaar] 50 mg PO DAILY 06/24/21 07/02/22 Fluticasone Propion/Salmeterol 1 puff INHALATION RT-BID 08/27/21 07/02/22 [Wixela 250-50 Inhub] Melatonin 5 mg PO HS 05/31/22 07/02/22 Mirtazapine [Remeron] 30 mg PO HS 05/31/22 07/02/22 Nitroglycerin Sl Tabs 0.3mg 0.3 mg SL Q5M PRN 05/31/22 07/02/22 QUEtiapine [SEROquel] 150 mg PO HS 05/31/22 07/02/22 hydrALAZINE HCL [Apresoline] 100 mg PO TID 05/31/22 07/02/22 Previous Rx's Medication Instructions Recorded Acetaminophen Tab [Tylenol] 650 mg PO Q6HR PRN tab 06/05/22 HYDROcodone/APAP 10-325MG [[place] 1 tab PO Q8H PRN #9 tab 06/05/22 10-325] Aspirin 81 mg PO DAILY #30 tab 06/12/22 Furosemide [Lasix] 40 mg PO BID@0900,1600 #60 tab 06/12/22 Potassium Chloride ER [K-Dur 20] 20 meq PO DAILY #14 tab 06/12/22 carvediloL [Coreg*] 25 mg PO BID-W/MEALS #60 tab 06/12/22 Albuterol Inhaler [Ventolin Hfa 1 - 2 puff INHALATION RT-Q6H PRN 06/26/22 Inhaler] 30 Days #1 dispenser Amiodarone [Cordarone] 200 mg PO DAILY tab 07/04/22 Amoxic-Pot Clav 875-125Mg 1 each PO Q12HR 5 Days #10 tab 07/04/22 [Augmentin 875-125] Isosorbide Mononitrate ER [Imdur] 30 mg PO DAILY 30 Days #30 tab 07/04/22 methylPREDNISolone Dose Pack 4 mg PO DIRECTED #1 packet 07/04/22 [Medrol Dose Pack] Allergies Allergy/AdvReac Type Severity Reaction Status Date / Time lisinopril Allergy Angioedema., Verified 07/02/22 11:21 swollen testicle, rash Review of Systems ROS Statement: Those systems with pertinent positive or pertinent negative responses have been documented in the HPI. Review of Systems: CONST: Denies fever EYES: Denies blurry vision ENT: Denies nasal congestion C/V: Denies Chest pain RESP: Endorses shortness of breath GI: Denies abdominal pain : Denies dysuria SKIN: Denies rash. MSK: Denies joint pain. NEURO: Denies headache ROS Other: All systems not noted in ROS Statement are negative. Past Medical History Past Medical History: Cancer, Heart Failure, COPD, GERD/Reflux, Hyperlipidemia, Hypertension, Prostate Disorder, Renal Disease Additional Past Medical History / Comment(s): Pt recently admitted to [facility] on 06/11/22 with acute on chronic CHF, hyperkalemia. Other hx: Recent bladder cancer/completed oral chemo and radiation, past colon cancer with resection, nonischemic cardiomyopathy, 2020 cardiac arrent/Vtach, CKD stage IV, BPH, hemorrhoids, anemia, RLS, chronic low back pain History of Any Multi-Drug Resistant Organisms: None Reported Past Surgical History: Appendectomy, Bowel Resection, Heart Catheterization, Orthopedic Surgery Additional Past Surgical History / Comment(s): R hemicolectomy, colonoscopies, nasal surgery to repair ulcer, R knee arthroscopic surgeries (ACL repair and meniscus repair), L heel fusion d/t trauma, L arm bicep surgery. Past Anesthesia/Blood Transfusion Reactions: No Reported Reaction Past Psychological History: Anxiety Smoking Status: Current every day smoker Past Alcohol Use History: None Reported Past Drug Use History: None Reported - Past Family History Mother Family Medical History: Cancer Additional Family Medical History / Comment(s): BREAST Sister(s) Family Medical History: Deep Vein Thrombosis (DVT) Additional Family Medical History / Comment(s): 1 sister had leukemia, and another sister had non hodgkins. Father Family Medical History: COPD Additional Family Medical History / Comment(s): FROM CARDIAC ARREST General Exam - General Exam Comments Initial Comments: General: Appears in no acute distress. HEAD: Normal with no signs of head trauma. EYES: PERRLA, EOMI, conjunctiva normal, no discharge. ENT: Hearing grossly intact, normal oropharynx. RESPIRATORY: Crackles in bilateral lower lung knowles. No wheezing auscultated. No hypoxia at rest. No respiratory distress. C/V: Regular rate and rhythm. S1 and S2 auscultated, 1+ pitting edema bilateral lower extremities, peripheral pulses 2+ and intact throughout ABD: Abd is soft, nontender, nondistended EXT: Normal range of motion, no obvious deformity SKIN: No rashes or lesions observed on exposed skin. NEURO: Alert and oriented 4. Limitations: no limitations Course Vital Signs 07/10/22 23:54 Temperature 97.2 F L Pulse Rate 88 Respiratory 16 Rate Blood Pressure 154/78 O2 Sat by Pulse 95 Oximetry Medical Decision Making - Medical Decision Making Based on the patient's presentation and physical exam, he presents for acute exacerbation of chronic shortness of breath. Is concerned that his CHF is flaring up. Has worsening orthopnea, lower extremity edema, exertional dyspnea. We'll obtain cardiac workup. We'll obtain chest x-ray. He is not hypoxic on room air, no respiratory distress. He'll be given a dose of Lasix, as well as an aspirin. He was in agreement this plan. Vital Signs are within normal limits at rest. Patient has been here previously for similar complaints. Feels like his oral diuretics are not helping. Clinically, is presenting as a CHF exacerbation. Does have a history COPD but has no wheezing. Not hypoxic at rest. EKG shows no signs of acute ischemia. Chest x-ray shows pulmonary edema which is slightly improved when compared to the previous exam. Laboratory studies are remarkable for a mild leukocytosis of 13.3. Patient's chronic macrocytic anemia with a hemoglobin of 8.5 which is stable. Patient is a chronic CK D with baseline BUN and creatinine. Patient is a chronically elevated troponin and appears to be at his baseline currently at 0.083. Covid is negative.Patient's BNP is chronically elevated and today is 96,000. Due to clinically presenting as a worsening CHF exacerbation. Patient like to be reevaluated and possibly other medications adjusted which I believe is reasonable. Will be admitted to observation with cardiology consult. He was in agreement this plan. In laboratory pulse ox was done prior to admission, the patient's oxygenation dropped on ambulation to 91-93%. I spoke with the admitting physician, Dr. Yang who was in agreement this plan. Patient was admitted in stable condition. - Lab Data Result diagrams: 07/11/22 01:30 07/11/22 01:30 Lab Results 07/11/22 07/11/22 07/11/22 Range/Units 01:30 01:30 01:30 WBC 13.3 H (3.8-10.6) k/uL RBC 2.44 L (4.30-5.90) m/uL Hgb 8.5 L (13.0-17.5) gm/dL Hct 26.6 L (39.0-53.0) % MCV 109.0 H (80.0-100.0) fL MCH 34.7 (25.0-35.0) pg MCHC 31.8 (31.0-37.0) g/dL RDW 15.5 (11.5-15.5) % Plt Count 289 (150-450) k/uL MPV 7.7 Macrocytosis Marked A PT 11.0 (9.0-12.0) sec INR 1.0 (<1.2) APTT 25.3 (22.0-30.0) sec Sodium 134 L (137-145) mmol/L Potassium 3.7 (3.5-5.1) mmol/L Chloride 99 (98-107) mmol/L Carbon Dioxide 24 (22-30) mmol/L Anion Gap 11 mmol/L BUN 55 H (9-20) mg/dL Creatinine 2.56 H (0.66-1.25) mg/dL Est GFR (CKD-EPI)AfAm 28 (>60 ml/min/1.73 sqM) Est GFR (CKD-EPI)NonAf 24 (>60 ml/min/1.73 sqM) Glucose 110 H (74-99) mg/dL Calcium 8.2 L (8.4-10.2) mg/dL Magnesium 2.4 H (1.6-2.3) mg/dL Total Bilirubin 0.3 (0.2-1.3) mg/dL AST 89 H (17-59) U/L ALT 148 H (4-49) U/L Alkaline Phosphatase 86 (38-126) U/L Troponin I (0.000-0.034) ng/mL NT-Pro-B Natriuret Pep pg/mL Total Protein 5.5 L (6.3-8.2) g/dL Albumin 3.3 L (3.5-5.0) g/dL Coronavirus (PCR) (Not Detectd) 07/11/22 07/11/22 07/11/22 Range/Units 01:30 01:30 03:30 WBC (3.8-10.6) k/uL RBC (4.30-5.90) m/uL Hgb (13.0-17.5) gm/dL Hct (39.0-53.0) % MCV (80.0-100.0) fL MCH (25.0-35.0) pg MCHC (31.0-37.0) g/dL RDW (11.5-15.5) % Plt Count (150-450) k/uL MPV Macrocytosis PT (9.0-12.0) sec INR (<1.2) APTT (22.0-30.0) sec Sodium (137-145) mmol/L Potassium (3.5-5.1) mmol/L Chloride (98-107) mmol/L Carbon Dioxide (22-30) mmol/L Anion Gap mmol/L BUN (9-20) mg/dL Creatinine (0.66-1.25) mg/dL Est GFR (CKD-EPI)AfAm (>60 ml/min/1.73 sqM) Est GFR (CKD-EPI)NonAf (>60 ml/min/1.73 sqM) Glucose (74-99) mg/dL Calcium (8.4-10.2) mg/dL Magnesium (1.6-2.3) mg/dL Total Bilirubin (0.2-1.3) mg/dL AST (17-59) U/L ALT (4-49) U/L Alkaline Phosphatase (38-126) U/L Troponin I 0.083 H* (0.000-0.034) ng/mL NT-Pro-B Natriuret Pep 30229 pg/mL Total Protein (6.3-8.2) g/dL Albumin (3.5-5.0) g/dL Coronavirus (PCR) Not Detected (Not Detectd) - EKG Data -: EKG Interpreted by Me EKG Comments: 12-lead Electrocardiogram Interpretation Note EKG was reviewed and interpreted by myself. 12-lead ECG performed at 0431 is interpreted by me as revealing normal sinus rhythm at a rate of 85 beats per minute. Left axis deviation. WI interval is 184 ms, QRS duration is 180 ms, QTc is 485 ms.. There were no acute ST or T wave abnormalities to suggest myocardial ischemia or injury. R wave progression across the precordium was satisfactory. By my interpretation this EKG is non-diagnostic for acute ischemia. When compared to prior EKG from June 2022, no significant changes. Disposition Clinical Impression: CHF (congestive heart failure), CKD (chronic kidney disease), Elevated troponin, Chronic anemia Disposition: ADMITTED IP TO THIS HOSP Condition: Stable Time of Disposition: 04:00
[2022-07-11 01:41] LABS: Basophils % (A) 0 %; Eosinophils # (A) 0.2 k/uL (0-0.7); Eosinophils % (A) 1 %; HCT 26.6 % (39.0-53.0); HGB 8.5 gm/dL (13.0-17.5); Lymphocytes # (A) 0.3 k/uL (1.0-4.8); Lymphocytes % (A) 3 %; MCH 34.7 pg (25.0-35.0); MCHC 31.8 g/dL (31.0-37.0); Macrocytosis Marked; Mean Platelet Volume 7.7; Monocytes # (A) 0.4 k/uL (0-1.0); Monocytes % (A) 3 %; Neutrophils # (A) 12.3 k/uL (1.3-7.7); Neutrophils % (A) 92 %; Platelet Count 289 k/uL (150-450); RBC 2.44 m/uL (4.30-5.90); RDW 15.5 % (11.5-15.5); WBC 13.3 k/uL (3.8-10.6)
[2022-07-11 01:55] LABS: Albumin 3.3 g/dL (3.5-5.0); Calcium 8.2 mg/dL (8.4-10.2); Magnesium 2.4 mg/dL (1.6-2.3); Potassium 3.7 mmol/L (3.5-5.1); Total Bilirubin 0.3 mg/dL (0.2-1.3); Total Protein 5.5 g/dL (6.3-8.2)
--- NOTE | 2022-07-11 02:36 | XR ---
EXAMINATION TYPE: XR chest 2V DATE OF EXAM: 07/11/2022 COMPARISON: 07/02/2020 HISTORY: Short of breath TECHNIQUE: 2 view FINDINGS: There is pulmonary interstitial moderate edema. There is normal-sized heart. No hilar mass. Mediastinum is normal. IMPRESSION: There is pulmonary edema which is slightly improved compared to last exam and could be im proving heart failure or interstitial pneumonia.
[2022-07-11 02:56] LABS: Partial Thromboplastin Time 25.3 sec (22.0-30.0)
[2022-07-11] MEDS ORDERED: NALOXONE 0.4 MG/ML 1 ML VIAL IV PRN (04:21)
[2022-07-11 05:22] LABS: Anisocytosis (M) Present; Polychromasia Present
[2022-07-11 05:25] LABS: Poikilocytosis (M) Present
--- NOTE | 2022-07-11 05:39 | P.HPIM ---
History of Present Illness H&P Date: 07/11/22 Chief Complaint: Exertional dyspnea 9-year-old male with COPD not on home oxygen, diastolic CHF, CK D stage III, history of cardiac arrest secondary to V. tach Patient has had frequent hospitalization over the past 2 months due to diastolic CHF exacerbation and attacks of acute COPD exacerbation. He comes in this time complaining of progressive worsening of exertional dyspnea with increased edema of bilateral legs despite being compliant with his medications. However patient does admit that to drinking a lot of water and liquids to keep himself hydrated. He notices that he wakes up in the morning with legs looking fine and as the day progresses he would suffer from increased swelling and edema of bilateral legs elevated difficult to wear shoes. Patient claims to be very active during the day with no limitations however over the past couple days he's been struggling to do his chores due to shortness of breath. He also reports some dry coughing nonproductive denies any hemoptysis. He denies any abdominal pain nausea vomiting changes in bowel habits or urinary habits. Patient also reports orthopnea and she is unable to lay flat. Along with paroxysmal maternal dyspnea with frequent awakenings. He denies any fevers or chills denies any sore throat denies any symptoms of upper respiratory infection denies any focal neuro deficits denies any headache changes in vision or hearing. In the ED blood work showed stable chronic kidney disease stable chronic anemia Patient had an echocardiogram done in May 2022 showing a solid CHF with left ventricular ejection fraction of 5055% Patient admits to tobacco smoking about 4 cigarettes per day denies any street drugs or alcohol consumption Review of Systems Pertinent positives as noted in HPI. All other systems were reviewed and are negative Past Medical History Past Medical History: Cancer, Heart Failure, COPD, GERD/Reflux, Hyperlipidemia, Hypertension, Prostate Disorder, Renal Disease Additional Past Medical History / Comment(s): Pt recently admitted to [facility] on 06/11/22 with acute on chronic CHF, hyperkalemia. Other hx: Recent bladder cancer/completed oral chemo and radiation, past colon cancer with resection, nonischemic cardiomyopathy, 2020 cardiac arrent/Vtach, CKD stage IV, BPH, hemorr hoids, anemia, RLS, chronic low back pain History of Any Multi-Drug Resistant Organisms: None Reported Past Surgical History: Appendectomy, Bowel Resection, Heart Catheterization, Orthopedic Surgery Additional Past Surgical History / Comment(s): R hemicolectomy, colonoscopies, nasal surgery to repair ulcer, R knee arthroscopic surgeries (ACL repair and meniscus repair), L heel fusion d/t trauma, L arm bicep surgery. Past Anesthesia/Blood Transfusion Reactions: No Reported Reaction Past Psychological History: Anxiety Smoking Status: Current every day smoker Past Alcohol Use History: None Reported Past Drug Use History: None Reported - Past Family History Mother Family Medical History: Cancer Additional Family Medical History / Comment(s): BREAST Sister(s) Family Medical History: Deep Vein Thrombosis (DVT) Additional Family Medical History / Comment(s): 1 sister had leukemia, and another sister had non hodgkins. Father Family Medical History: COPD Additional Family Medical History / Comment(s): FROM CARDIAC ARREST Medications and Allergies Home Medications Medication Instructions Recorded Confirmed Type Tamsulosin [Flomax] 0.4 mg PO DAILY 06/04/16 07/02/22 History Famotidine [Pepcid] 20 mg PO BID 06/08/20 07/02/22 History Multivitamins, Thera [Multivitamin 1 tab PO DAILY 06/08/20 07/02/22 History (formulary)] Atorvastatin Calcium [Lipitor] 20 mg PO HS 06/24/21 07/02/22 History Losartan [Cozaar] 50 mg PO DAILY 06/24/21 07/02/22 History Fluticasone Propion/Salmeterol 1 puff INHALATION RT-BID 08/27/21 07/02/22 Histo ry [Wixela 250-50 Inhub] Melatonin 5 mg PO HS 05/31/22 07/02/22 History Mirtazapine [Remeron] 30 mg PO HS 05/31/22 07/02/22 History Nitroglycerin Sl Tabs 0.3mg 0.3 mg SL Q5M PRN 05/31/22 07/02/22 History QUEtiapine [SEROquel] 150 mg PO HS 05/31/22 07/02/22 History hydrALAZINE HCL [Apresoline] 100 mg PO TID 05/31/22 07/02/22 History Acetaminophen Tab [Tylenol] 650 mg PO Q6HR PRN tab 06/05/22 07/02/22 Rx HYDROcodone/APAP 10-325MG [[place] 1 tab PO Q8H PRN #9 tab 06/05/22 07/02/22 Rx 10-325] Aspirin 81 mg PO DAILY #30 tab 06/12/22 07/02/22 Rx Furosemide [Lasix] 40 mg PO BID@0900,1600 #60 tab 06/12/22 07/02/22 Rx Potassium Chloride ER [K-Dur 20] 20 meq PO DAILY #14 tab 06/12/22 07/02/22 Rx carvediloL [Coreg*] 25 mg PO BID-W/MEALS #60 tab 06/12/22 07/02/22 Rx Albuterol Inhaler [Ventolin Hfa 1 - 2 puff INHALATION RT-Q6H PRN 06/26/22 07/02/22 Rx Inhaler] 30 Days #1 dispenser Amiodarone [Cordarone] 200 mg PO DAILY tab 07/04/22 Rx Amoxic-Pot Clav 875-125Mg 1 each PO Q12HR 5 Days #10 tab 07/04/22 Rx [Augmentin 875-125] Isosorbide Mononitrate ER [Imdur] 30 mg PO DAILY 30 Days #30 tab 07/04/22 Rx methylPREDNISolone Dose Pack 4 mg PO DIRECTED #1 packet 07/04/22 Rx [Medrol Dose Pack] Allergies Allergy/AdvReac Type Severity Reaction Status Date / Time lisinopril Allergy Angioedema., Verified 07/02/22 11:21 swollen testicle, rash Physical Exam Vitals: Vital Signs Temp Pulse Resp BP Pulse Ox 07/10/22 23:54 97.2 F L 88 16 154/78 95 Intake and Output 07/10/22 07/10/22 07/11/22 14:59 22:59 06:59 Other: Weight 58.06 kg Constitutional: No acute distress, conversant, pleasant Eyes: Anicteric sclerae, moist conjunctiva, Pupils equal round reactive to light ENMT: NC/AT Oropharynx clear, no erythema, or exudates Neck: Supple, no masses, or JVD No carotid bruits No thyromegaly Lungs: Good air entry throughout with some scattered inspiratory and expiratory rhonchi Clear to percussion Normal respiratory effort, no accessory muscle use Cardiovascular: Heart regular in rate and rhythm, No murmurs, gallops, or rubs +2 bilateral peripheral edema Abdominal: Soft Nontender, no guarding, rebound or rigidity Abdomen moving with respiration Normoactive bowel sounds No hepatomegaly, No splenomegaly No palpable mass No abdominal wall hernia noted Skin: Normal temperature, tone, texture, turgor No induration No subcutaneous nodules No rash, lesions No ulcers Extremities: No digital cyanosis + clubbing bilateral fingers Pedal pulses intact and symmetrical Radial pulses intact and symmetrical No calf tenderness Psychiatric: Alert and oriented to person, place and time Appropriate affect fair judgement Neuro Muscles Strength 4/5 in all 4 extremities Sensation to light touch grossly present throughout Cranial nerves II-XII grossly intact No focal sensory deficits Lymphatics: no palpable cervical or supraclavicular , or inguinal lymph nodes Results CBC & Chem 7: 07/11/22 01:30 07/11/22 01:30 Labs: Abnormal Lab Results - Last 24 Hours (Table) 07/11/22 07/11/22 07/11/22 Range/Units 01:30 01:30 01:30 WBC 13.3 H (3.8-10.6) k/uL RBC 2.44 L (4.30-5.90) m/uL Hgb 8.5 L (13.0-17.5) gm/dL Hct 26.6 L (39.0-53.0) % MCV 109.0 H (80.0-100.0) fL Neutrophils # 12.3 H (1.3-7.7) k/uL Lymphocytes # 0.3 L (1.0-4.8) k/uL Macrocytosis Marked A Sodium 134 L (137-145) mmol/L BUN 55 H (9-20) mg/dL Creatinine 2.56 H (0.66-1.25) mg/dL Glucose 110 H (74-99) mg/dL Calcium 8.2 L (8.4-10.2) mg/dL Magnesium 2.4 H (1.6-2.3) mg/dL AST 89 H (17-59) U/L ALT 148 H (4-49) U/L Troponin I 0.083 H* (0.000-0.034) ng/mL Total Protein 5.5 L (6.3-8.2) g/dL Albumin 3.3 L (3.5-5.0) g/dL Assessment and Plan Assessment: Mild acute diastolic CHF exacerbation Initiate patient on IV Lasix 40 mg twice a day Resume cardiac home meds Counseled the patient regarding fluid restriction to 2 L per day Daily weights Cardiac monitoring Monitor vital signs Left ventricular ejection fraction from May 2022 5055 percent Chest x-ray showed overall improvement in pulmonary vascular congestion Patient not requiring supplemental oxygen Compression stocking Chronic kidney disease stage III stable Avoid nephrotoxic meds Monitor urine output Monitoring of function Chronic anemia stable Denies any GI bleeding COPD compensated Continue with inhalers as needed DVT prophylaxis heparin subcu 3 times a day Full code
[2022-07-11] MEDS ORDERED: ALBUTEROL NEBULIZED 2.5 MG/3 ML INHALATION PRN (08:00)
[2022-07-11] MEDS: LOSARTAN 50 MG TAB PO SCH (08:10)
[2022-07-11] MEDS: ISOSORBIDE MONONITRATE ER 30 MG TAB.ER.24H PO SCH (08:10)
[2022-07-11] MEDS: HEPARIN SODIUM,PORCINE/PF 5,000 UNIT/0.5 ML SYRINGE SQ SCH ×3 (08:10→23:28)
[2022-07-11] MEDS: carvediloL 12.5 MG TAB PO SCH ×2 (08:10→16:25)
[2022-07-11] MEDS: hydrALAZINE HCL 50 MG TAB PO SCH ×3 (08:10→20:29)
[2022-07-11] MEDS: TAMSULOSIN 0.4 MG CAP.ER.24H PO SCH (08:10)
[2022-07-11] MEDS: ASPIRIN 81 MG PO SCH (08:17)
[2022-07-11] MEDS ORDERED: AMIODARONE 200 MG TAB PO SCH (09:00)
[2022-07-11] MEDS ORDERED: FUROSEMIDE 10 MG/ML 4 ML VIAL IV SCH (09:00)
[2022-07-11] MEDS ORDERED: FAMOTIDINE 20 MG TAB PO SCH (09:00)
--- NOTE | 2022-07-11 10:14 | CT ---
EXAMINATION TYPE: CT chest wo con CT DLP: 224.6 mGycm, Automated exposure control for dose reduction was used. DATE OF EXAM: 07/11/2022 9:51 AM COMPARISON: CT chest abdomen pelvis 11/02/2021. CLINICAL INDICATION:Male, 72 years old with history of amiodarone lung toxicity, interstitial lung di sease; PHH, CHF exacerbation TECHNIQUE: Multiple axial images were obtained through the chest without IV contrast. Lack of IV or o ral contrast limits evaluation of solid and hollow organ viscera. Coronal and sagittal reformats revi ewed. FINDINGS: LUNGS/ PLEURA: No pleural effusion or pneumothorax. Marginal increase in size of left upper lobe ante rior pleural-based nodule measuring 1.4 cm (series 4, image 32), previously 1.3 cm. No new additional nodules. Centrilobular and paraseptal emphysematous changes are seen within the upper lobes bilatera lly. Scattered subpleural fibrosis with increased right upper lobe/middle lobe and left upper lobe/li ngular groundglass opacities. AIRWAY: Patent and unremarkable.. HEART: The heart is mildly increased in size. No pericardial effusion. Coronary arterial calcificatio ns. Low-attenuation the blood pool within the heart suggestive of anemia. MEDIASTINUM: Subcarinal lymph node measuring 1.2 cm short axis, previously 0.9 cm. Additional promine nt mediastinal lymph nodes identified. VASCULATURE: No aortic aneurysm. Atherosclerotic calcification of the aorta and its branches. MUSCULOSKELETAL: No acute osseous abnormalities. Remote left rib fracture. No aggressive osseous lesi ons. SOFT TISSUES/LYMPH NODES: Unremarkable. LOWER NECK: No significant findings. UPPER ABDOMEN: Left hepatic lobe 1.4 cm cyst. IMPRESSION: 1. Marginal increase in pleural-based left upper lobe anterior nodule measuring 1.4 cm, previously 1. 3 cm. 2. Progression of interstitial lung disease with subpleural reticular and groundglass opacities. Rede monstration of emphysematous changes. 3. Nonspecific enlarged subcarinal lymph node.
--- NOTE | 2022-07-11 10:37 | P.CRDCN ---
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 Other hx: Recent bladder cancer/completed oral chemo and radiation, past colon cancer with resection, nonischemic cardiomyopathy, 2020 cardiac arrent/Vtach, CKD stage IV, BPH, hemorrhoids, anemia, RLS, chronic low back pain History of Any Multi-Drug Resistant Organisms: None Reported Past Surgical History: Appendectomy, Bowel Resection, Heart Catheterization, Orthopedic Surgery Additional Past Surgical History / Comment(s): R hemicolectomy, colonoscopies, nasal surgery to repair ulcer, R knee arthroscopic surgeries (ACL repair and meniscus repair), L heel fusion d/t trauma, L arm bicep surgery. Past Anesthesia/Blood Transfusion Reactions: No Reported Reaction Past Psychological History: Anxiety Smoking Status: Current every day smoker Past Alcohol Use History: None Reported Past Drug Use History: None Reported - Past Family History Mother Family Medical History: Cancer Additional Family Medical History / Comment(s): BREAST Sister(s) Family Medical History: Deep Vein Thrombosis (DVT) Additional Family Medical History / Comment(s): 1 sister had leukemia, and another sister had non hodgkins. Father Family Medical History: COPD Additional Family Medical History / Comment(s): FROM CARDIAC ARREST Medications and Allergies Home Medications Medication Instructions Recorded Confirmed Type Tamsulosin [Flomax] 0.4 mg PO DAILY 06/04/16 07/11/22 History Famotidine [Pepcid] 20 mg PO BID 06/08/20 07/11/22 History Multivitamins, Thera [Multivitamin 1 tab PO DAILY 06/08/20 07/11/22 History (formulary)] Atorvastatin Calcium [Lipitor] 20 mg PO HS 06/24/21 07/11/22 History Losartan [Cozaar] 50 mg PO DAILY 06/24/21 07/11/22 History Fluticasone Propion/Salmeterol 1 puff INHALATION RT-BID 08/27/21 07/11/22 History [W[place]ela 250-50 Inhub] Melatonin 5 mg PO HS 05/31/22 07/11/22 History Mirtazapine [Remeron] 30 mg PO HS 05/31/22 07/11/22 History Nitroglycerin Sl Tabs 0.3mg 0.3 mg SL Q5M PRN 05/31/22 07/11/22 History QUEtiapine [SEROquel] 150 mg PO HS 05/31/22 07/11/22 History hydrALAZINE HCL [Apresoline] 100 mg PO TID 05/31/22 07/11/22 History Acetaminophen Tab [Tylenol] 650 mg PO Q6HR PRN tab 06/05/22 07/11/22 Rx HYDROcodone/APAP 10-325MG [[place] 1 tab PO Q8H PRN #9 tab 06/05/22 07/11/22 Rx 10-325] Aspirin 81 mg PO DAILY #30 tab 06/12/22 07/11/22 Rx Furosemide [Lasix] 40 mg PO BID@0900,1600 #60 tab 06/12/22 07/11/22 Rx Potassium Chloride ER [K-Dur 20] 20 meq PO DAILY #14 tab 06/12/22 07/11/22 Rx carvediloL [Coreg*] 25 mg PO BID-W/MEALS #60 tab 06/12/22 07/11/22 Rx Albuterol Inhaler [Ventolin Hfa 1 - 2 puff INHALATION RT-Q6H PRN 06/26/22 07/11/22 Rx Inhaler] 30 Days #1 dispenser Isosorbide Mononitrate ER [Imdur] 30 mg PO DAILY 30 Days #30 tab 07/04/22 07/11/22 Rx Allergies Allergy/AdvReac Type Severity Reaction Status Date / Time lisinopril Allergy Angioedema., Verified 07/02/22 11:21 swollen testicle, rash Physical Exam Vitals: Vital Signs Temp Pulse Resp BP Pulse Ox 07/10/22 23:54 97.2 F L 88 16 154/78 95 Intake and Output 07/10/22 07/11/22 07/11/22 22:59 06:59 14:59 Intake Total 118 Output Total 450 Balance -332 Intake: Oral 118 Output: Urine 450 Other: Weight 58.06 kg Results 07/11/22 01:30 07/11/22 01:30 Cardiac Enzymes 07/11/22 07/11/22 07/11/22 Range/Units 01:30 01:30 05:05 AST 89 H (17-59) U/L Troponin I 0.083 H* 0.085 H* (0.000-0.034) ng/mL 07/11/22 Range/Units 08:49 AST (17-59) U/L Troponin I 0.099 H* (0.000-0.034) ng/mL Coagulation 07/11/22 Range/Units 01:30 PT 11.0 (9.0-12.0) sec APTT 25.3 (22.0-30.0) sec CBC 07/11/22 Range/Units 01:30 WBC 13.3 H (3.8-10.6) k/uL RBC 2.44 L (4.30-5.90) m/uL Hgb 8.5 L (13.0-17.5) gm/dL Hct 26.6 L (39.0-53.0) % Plt Count 289 (150-450) k/uL Comprehensive Metabolic Panel 07/11/22 Range/Units 01:30 Sodium 134 L (137-145) mmol/L Potassium 3.7 (3.5-5.1) mmol/L Chloride 99 (98-107) mmol/L Carbon Dioxide 24 (22-30) mmol/L BUN 55 H (9-20) mg/dL Creatinine 2.56 H (0.66-1.25) mg/dL Glucose 110 H (74-99) mg/dL Calcium 8.2 L (8.4-10.2) mg/dL AST 89 H (17-59) U/L ALT 148 H (4-49) U/L Alkaline Phosphatase 86 (38-126) U/L Total Protein 5.5 L (6.3-8.2) g/dL Albumin 3.3 L (3.5-5.0) g/dL Current Medications Generic Name Dose Route Start Last Admin Trade Name Freq PRN Reason Stop Dose Admin Albuterol Sulfate 2.5 mg 07/11/22 08:00 Albuterol Nebulized 2.5 Mg/3 Ml INHALATION RT-Q6H PRN Shortness Of Breath Aspirin 81 mg 07/11/22 09:00 07/11/22 08:17 Aspirin 81 Mg PO 81 mg DAILY [facility] Administration Atorvastatin Calcium 20 mg 07/11/22 21:00 Atorvastatin 20 Mg Tab PO HS [facility] Carvedilol 25 mg 07/11/22 07:30 07/11/22 08:10 Carvedilol 12.5 Mg Tab PO 25 mg BID-W/MEALS [facility] Administration Famotidine 20 mg 07/12/22 09:00 Famotidine 20 Mg Tab PO DAILY [facility] Furosemide 40 mg 07/12/22 09:00 Furosemide 40 Mg Tab PO DAILY [facility] Heparin Sodium (Porcine) 5,000 unit 07/11/22 08:00 07/11/22 08:10 Heparin Sodium,Porcine/Pf 5,000 Unit/0.5 Ml Syringe SQ 5,000 unit Q8HR [facility] Administration Hydralazine HCl 100 mg 07/11/22 09:00 07/11/22 08:10 Hydralazine Hcl 50 Mg Tab PO 100 mg TID [facility] Administration Isosorbide Mononitrate 30 mg 07/11/22 09:00 07/11/22 08:10 Isosorbide Mononitrate Er 30 Mg Tab.Er.24h PO 30 mg DAILY [facility] Administration Losartan Potassium 50 mg 07/11/22 09:00 07/11/22 08:10 Losartan 50 Mg Tab PO 50 mg DAILY [facility] Administration Mirtazapine 30 mg 07/11/22 21:00 Mirtazapine 15 Mg Tab PO HS [facility] Naloxone HCl 0.2 mg 07/11/22 04:21 Naloxone 0.4 Mg/Ml 1 Ml Vial IV Q2M PRN Opioid Reversal Tamsulosin HCl 0.4 mg 07/11/22 09:00 07/11/22 08:10 Tamsulosin 0.4 Mg Cap.Er.24h PO 0.4 mg DAILY [facility] Administration Intake and Output 07/10/22 07/11/22 07/11/22 22:59 06:59 14:59 Intake Total 118 Output Total 450 Balance -332 Intake: Oral 118 Output: Urine 450 Other: Weight 58.06 kg 07/11/22 01:30 07/11/22 01:30
--- NOTE | 2022-07-11 11:01 | P.CRDCN ---
History of Present Illness Consult date: 07/11/22 Consult reason: shortness of breath History of present illness: The patient is a 72-year-old male with multiple comorbid conditions who follows in the office with Dr. Cardoso. He presented to the emergency room with increased shortness of breath and lower extremity edema. He states he now has difficulty lying flat at night and often wakes up coughing. He denies any recent upper respiratory infection. No fever or chills. The patient states his been suffering with shortness of breath, however it has recently gotten worse. He states he is unable to sleep at night due to the orthopnea. DIAGNOSTICS: EKG shows sinus rhythm with left anterior fascicular block Chest x-ray shows mild pulmonary edema, improving compared to previous exam CT of the chest shows interstitial lung disease with slight pleural reticular and groundglass opacities Lab data: WBC 13.3, hemoglobin 8.5, hematocrit 26.6, platelet 289, sodium 134, potassium 3.7, BUN 55, creatinine 2.56, AST 89, ALT 148, BNP 96,100, troponin 0.08, 0.08, 0.09 PAST MEDICAL HISTORY: Mild coronary artery disease, peripheral vascular disease, nonischemic cardiomyopathy, cardiac arrest REVIEW OF SYSTEMS: No fever or chills. No cough or expectoration. No diaphoresis. Patient denies headache, dizziness, blurred vision, double vision. Patient denies any stomach discomfort. No nausea, vomiting. No hematochezia. No hematemesis. Denies any black stools or blood in his stools. Denies dysuria or hematuria. No muscle weakness or numbness. Positive for dyspnea and orthopnea. Negative for chest pain or chest pressure. PHYSICAL EXAMINATION: This is a 72-year-old male in no apparent distress at the time of my examination. HEENT: Head is atraumatic, normocephalic. Pupils are equal, round. Sclerae anicteric. Conjunctivae are clear. Mucous membranes of the mouth are moist. Neck is supple. There is no jugular venous distention. No carotid bruit is heard. CHEST EXAMINATION: Lungs are diminished to auscultation. No chest wall tenderness is noted on palpation or with deep breathing. HEART EXAMINATION: Heart regular rate and rhythm. S1, S2 heard. No murmurs, gallops or rub. ABDOMEN: Soft, nontender. Bowel sounds are heard. No organomegaly noted. EXTREMITIES: 2+ peripheral pulses with no evidence of peripheral edema and no calf tenderness noted. NEUROLOGIC EXAMINATION: Patient is awake, alert and oriented x3. 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 Past Medical History Past Medical History: Cancer, Heart Failure, COPD, GERD/Reflux, Hyperlipidemia, Hypertension, Prostate Disorder, Renal Disease Additional Past Medical History / Comment(s): Pt recently admitted to [facility] on 06/11/22 with acute on chronic CHF, hyperkalemia. Other hx: Recent bladder cancer/completed oral chemo and radiation, past colon cancer with resection, nonischemic cardiomyopathy, 2020 cardiac arrent/Vtach, CKD stage IV, BPH, hemorrhoids, anemia, RLS, chronic low back pain History of Any Multi-Drug Resistant Organisms: None Reported Past Surgical History: Appendectomy, Bowel Resection, Heart Catheterization, Ort hopedic Surgery Additional Past Surgical History / Comment(s): R hemicolectomy, colonoscopies, nasal surgery to repair ulcer, R knee arthroscopic surgeries (ACL repair and men iscus repair), L heel fusion d/t trauma, L arm bicep surgery. Past Anesthesia/Blood Transfusion Reactions: No Reported Reaction Past Psychological History: Anxiety Smoking Status: Current every day smoker Past Alcohol Use History: None Reported Past Drug Use History: None Reported - Past Family History Mother Family Medical History: Cancer Additional Family Medical History / Comment(s): BREAST Sister(s) Family Medical History: Deep Vein Thrombosis (DVT) Additional Family Medical History / Comment(s): 1 sister had leukemia, and anoth er sister had non hodgkins. Father Family Medical History: COPD Additional Family Medical History / Comment(s): FROM CARDIAC ARREST Medications and Allergies Home Medications Medication Instructions Recorded Confirmed Type Tamsulosin [Flomax] 0.4 mg PO DAILY 06/04/16 07/11/22 History Famotidine [Pepcid] 20 mg PO BID 06/08/20 07/11/22 History Multivitamins, Thera [Multivitamin 1 tab PO DAILY 06/08/20 07/11/22 History (formulary)] Atorvastatin Calcium [Lipitor] 20 mg PO HS 06/24/21 07/11/22 History Losartan [Cozaar] 50 mg PO DAILY 06/24/21 07/11/22 History Fluticasone Propion/Salmeterol 1 puff INHALATION RT-BID 08/27/21 07/11/22 History [Wixela 250-50 Inhub] Melatonin 5 mg PO HS 05/31/22 07/11/22 History Mirtazapine [Remeron] 30 mg PO HS 05/31/22 07/11/22 History Nitroglycerin Sl Tabs 0.3mg 0.3 mg SL Q5M PRN 05/31/22 07/11/22 History QUEtiapine [SEROquel] 150 mg PO HS 05/31/22 07/11/22 History hydrALAZINE HCL [Apresoline] 100 mg PO TID 05/31/22 07/11/22 History Acetaminophen Tab [Tylenol] 650 mg PO Q6HR PRN tab 06/05/22 07/11/22 Rx HYDROcodone/APAP 10-325MG [[place] 1 tab PO Q8H PRN #9 tab 06/05/22 07/11/22 Rx 10-325] Aspirin 81 mg PO DAILY #30 tab 06/12/22 07/11/22 Rx Furosemide [Lasix] 40 mg PO BID@0900,1600 #60 tab 06/12/22 07/11/22 Rx Potassium Chloride ER [K-Dur 20] 20 meq PO DAILY #14 tab 06/12/22 07/11/22 Rx carvediloL [Coreg*] 25 mg PO BID-W/MEALS #60 tab 06/12/22 07/11/22 Rx Albuterol Inhaler [Ventolin Hfa 1 - 2 puff INHALATION RT-Q6H PRN 06/26/22 07/11/22 Rx Inhaler] 30 Days #1 dispenser Isosorbide Mononitrate ER [Imdur] 30 mg PO DAILY 30 Days #30 tab 07/04/22 07/11/22 Rx Allergies Allergy/AdvReac Type Severity Reaction Status Date / Time lisinopril Allergy Angioedema., Verified 07/02/22 11:21 swollen testicle, rash Physical Exam Vitals: Vital Signs Temp Pulse Resp BP Pulse Ox 07/10/22 23:54 97.2 F L 88 16 154/78 95 Intake and Output 07/10/22 07/11/22 07/11/22 22:59 06:59 14:59 Intake Total 118 Output Total 450 Balance -332 Intake: Oral 118 Output: Urine 450 Other: Weight 58.06 kg Results 07/11/22 01:30 07/11/22 01:30 Cardiac Enzymes 07/11/22 07/11/22 07/11/22 Range/Units 01:30 01:30 05:05 AST 89 H (17-59) U/L Troponin I 0.083 H* 0.085 H* (0.000-0.034) ng/mL 07/11/22 Range/Units 08:49 AST (17-59) U/L Troponin I 0.099 H* (0.000-0.034) ng/mL Coagulation 07/11/22 Range/Units 01:30 PT 11.0 (9.0-12.0) sec APTT 25.3 (22.0-30.0) sec CBC 07/11/22 Range/Units 01:30 WBC 13.3 H (3.8-10.6) k/uL RBC 2.44 L (4.30-5.90) m/uL Hgb 8.5 L (13.0-17.5) gm/dL Hct 26.6 L (39.0-53.0) % Plt Count 289 (150-450) k/uL Comprehensive Metabolic Panel 07/11/22 Range/Units 01:30 Sodium 134 L (137-145) mmol/L Potassium 3.7 (3.5-5.1) mmol/L Chloride 99 (98-107) mmol/L Carbon Dioxide 24 (22-30) mmol/L BUN 55 H (9-20) mg/dL Creatinine 2.56 H (0.66-1.25) mg/dL Glucose 110 H (74-99) mg/dL Calcium 8.2 L (8.4-10.2) mg/dL AST 89 H (17-59) U/L ALT 148 H (4-49) U/L Alkaline Phosphatase 86 (38-126) U/L Total Protein 5.5 L (6.3-8.2) g/dL Albumin 3.3 L (3.5-5.0) g/dL Current Medications Generic Name Dose Route Start Last Admin Trade Name Freq PRN Reason Stop Dose Admin Albuterol Sulfate 2.5 mg 07/11/22 08:00 Albuterol Nebulized 2.5 Mg/3 Ml INHALATION RT-Q6H PRN Shortness Of Breath Aspirin 81 mg 07/11/22 09:00 07/11/22 08:17 Aspirin 81 Mg PO 81 mg DAILY [facility] Administration Atorvastatin Calcium 20 mg 07/11/22 21:00 Atorvastatin 20 Mg Tab PO HS [facility] Carvedilol 25 mg 07/11/22 07:30 07/11/22 08:10 Carvedilol 12.5 Mg Tab PO 25 mg BID-W/MEALS [facility] Administration Famotidine 20 mg 07/12/22 09:00 Famotidine 20 Mg Tab PO DAILY [facility] Furosemide 40 mg 07/12/22 09:00 Furosemide 40 Mg Tab PO DAILY [facility] Heparin Sodium (Porcine) 5,000 unit 07/11/22 08:00 07/11/22 08:10 Heparin Sodium,Porcine/Pf 5,000 Unit/0.5 Ml Syringe SQ 5,000 unit Q8HR [facility] Administration Hydralazine HCl 100 mg 07/11/22 09:00 07/11/22 08:10 Hydralazine Hcl 50 Mg Tab PO 100 mg TID [facility] Administration Isosorbide Mononitrate 30 mg 07/11/22 09:00 07/11/22 08:10 Isosorbide Mononitrate Er 30 Mg Tab.Er.24h PO 30 mg DAILY [facility] Administration Losartan Potassium 50 mg 07/11/22 09:00 07/11/22 08:10 Losartan 50 Mg Tab PO 50 mg DAILY [facility] Administration Mirtazapine 30 mg 07/11/22 21:00 Mirtazapine 15 Mg Tab PO HS [facility] Naloxone HCl 0.2 mg 07/11/22 04:21 Naloxone 0.4 Mg/Ml 1 Ml Vial IV Q2M PRN Opioid Reversal Tamsulosin HCl 0.4 mg 07/11/22 09:00 07/11/22 08:10 Tamsulosin 0.4 Mg Cap.Er.24h PO 0.4 mg DAILY [facility] Administration Intake and Output 07/10/22 07/11/22 07/11/22 22:59 06:59 14:59 Intake Total 118 Output Total 450 Balance -332 Intake: Oral 118 Output: Urine 450 Other: Weight 58.06 kg 07/11/22 01:30 07/11/22 01:30
--- NOTE | 2022-07-11 13:29 | P.CNPUL ---
History of Present Illness Consult date: 07/11/22 Reason for consult: dyspnea History of present illness: This is a 72-year-old male patient, admitted again for worsening shortness of breath. He also reported he had increased dyspnea, orthopnea and increased lower extremity edema and he was having difficulty laying down flat. For that reason he came in. He has had multiple hospitalizations and he was in the hospital approximately a week ago and he was discharged home. He is known to have cardiac disease along with VT arrest back in 2019 and he was receiving amiodarone for quite some time. He is currently have mild nonobstructive coronary artery disease, nonischemic cardiomyopathy with a normalization of ejection fraction as the patient's EF was as low as 20% following the cardiac arrest and subsequent echocardiograms showed improvement in LV function with an ejection fraction of 50-55% with a trace MR and mild aortic stenosis. The patient also known to have chronic kidney disease, seizure disorder, hypertension, history of colon cancer with a previous right hemicolectomy in 2017 and a recent history of bladder cancer treated with radiation therapy and chemotherapy. The patient is known to have COPD. He is an ex-smoker. He is currently on Symbicort. No hemoptysis. No pleurisy. Chest x-ray during this current admission showed mild four-vessel congestion. CAT scan of the chest with some limited interstitial changes and background COPD.. EKG was normal sinus. Review of Systems Constitutional: Denies chills, Denies fever Eyes: denies as per HPI, denies blurred vision, denies bulging eye, denies decreased vision, denies diplopia, denies discharge, denies dry eye, denies irritation, denies itching, denies pain, denies photophobia, denies loss of peripheral vision, denies loss of vision, denies tunnel vision/blind spots Ears: deny: decreased hearing, ear discharge, earache, tinnitus Breasts: absent: as per HPI, gynecomastia Cardiovascular: Reports decreased exercise tolerance, Reports dyspnea on exertion Respiratory: Reports cough, Reports dyspnea, Reports wheezing Gastrointestinal: Reports as per HPI Genitourinary: Reports as per HPI Musculoskeletal: Reports as per HPI Musculoskeletal: bilateral: ankle swelling, absent: ankle pain, ankle stiffness Integumentary: Reports as per HPI Neurological: Reports as per HPI Psychiatric: Reports as per HPI Endocrine: Reports as per HPI Hematologic/Lymphatic: Reports as per HPI Allergic/Immunologic: Reports as per HPI Past Medical History Past Medical History: Cancer, Heart Failure, COPD, GERD/Reflux, Hyperlipidemia, Hypertension, Prostate Disorder, Renal Disease Additional Past Medical History / Comment(s): Pt recently admitted to [facility] on 06/11/22 with acute on chronic CHF, hyperkalemia. Other hx: Recent bladder cancer/completed oral chemo and radiation, past colon cancer with resection, nonischemic cardiomyopathy, 2020 cardiac arrent/Vtach, CKD stage IV, BPH, hemorrhoids, anemia, RLS, chronic low back pain History of Any Multi-Drug Resistant Organisms: None Reported Past Surgical History: Appendectomy, Bowel Resection, Heart Catheterization, Orthopedic Surgery Additional Past Surgical History / Comment(s): R hemicolectomy, colonoscopies, nasal surgery to repair ulcer, R knee arthroscopic surgeries (ACL repair and meniscus repair), L heel fusion d/t trauma, L arm bicep surgery. Past Anesthesia/Blood Transfusion Reactions: No Reported Reaction Past Psychological History: Anxiety Additional Psychological History / Comment(s): Pt resides with his significant other. He is a . He is independent. Smoking Status: Current every day smoker Past Alcohol Use History: None Reported Additional Past Alcohol Use History / Comment(s): STARTED AGE 19, SMOKES 1/2 PPD Past Drug Use History: None Reported Additional Drug Use History / Comment(s): Past cocaine use. - Past Family History Mother Family Medical History: Cancer Additional Family Medical History / Comment(s): BREAST Sister(s) Family Medical History: Deep Vein Thrombosis (DVT) Additional Family Medical History / Comment(s): 1 sister had leukemia, and another sister had non hodgkins. Father Family Medical History: COPD Additional Family Medical History / Comment(s): FROM CARDIAC ARREST Medications and Allergies Home Medications Medication Instructions Recorded Confirmed Type Tamsulosin [Flomax] 0.4 mg PO DAILY 06/04/16 07/11/22 History Famotidine [Pepcid] 20 mg PO BID 06/08/20 07/11/22 History Multivitamins, Thera [Multivitamin 1 tab PO DAILY 06/08/20 07/11/22 History (formulary)] Atorvastatin Calcium [Lipitor] 20 mg PO HS 06/24/21 07/11/22 History Losartan [Cozaar] 50 mg PO DAILY 06/24/21 07/11/22 History Fluticasone Propion/Salmeterol 1 puff INHALATION RT-BID 08/27/21 07/11/22 History [[place] 250-50 Inhub] Melatonin 5 mg PO HS 05/31/22 07/11/22 History Mirtazapine [Remeron] 30 mg PO HS 05/31/22 07/11/22 History Nitroglycerin Sl Tabs 0.3mg 0.3 mg SL Q5M PRN 05/31/22 07/11/22 History QUEtiapine [SEROquel] 150 mg PO HS 05/31/22 07/11/22 History hydrALAZINE HCL [Apresoline] 100 mg PO TID 05/31/22 07/11/22 History Acetaminophen Tab [Tylenol] 650 mg PO Q6HR PRN tab 06/05/22 07/11/22 Rx HYDROcodone/APAP 10-325MG [[place] 1 tab PO Q8H PRN #9 tab 06/05/22 07/11/22 Rx 10-325] Aspirin 81 mg PO DAILY #30 tab 06/12/22 07/11/22 Rx Furosemide [Lasix] 40 mg PO BID@0900,1600 #60 tab 06/12/22 07/11/22 Rx Potassium Chloride ER [K-Dur 20] 20 meq PO DAILY #14 tab 06/12/22 07/11/22 Rx carvediloL [Coreg*] 25 mg PO BID-W/MEALS #60 tab 06/12/22 07/11/22 Rx Albuterol Inhaler [Ventolin Hfa 1 - 2 puff INHALATION RT-Q6H PRN 06/26/22 07/11/22 Rx Inhaler] 30 Days #1 dispenser Isosorbide Mononitrate ER [Imdur] 30 mg PO DAILY 30 Days #30 tab 07/04/22 07/11/22 Rx Allergies Allergy/AdvReac Type Severity Reaction Status Date / Time lisinopril Allergy Angioedema., Verified 07/02/22 11:21 swollen testicle, rash Physical Exam Vitals: Vital Signs Temp Pulse Pulse Resp BP BP Pulse Ox 07/11/22 08:00 97.8 F 87 17 161/74 97 07/10/22 23:54 97.2 F L 88 16 154/78 95 Intake and Output 09/03/22 09/04/22 09/04/22 22:59 06:59 14:59 Intake Total 118 Output Total 450 Balance -332 Intake: Oral 118 Output: Urine 450 Other: Weight 58.06 kg 58.06 kg No acute distress, oriented 3. No conversational dyspnea, or use of accessory muscles. When we saw the patient, he was on room air. He did look very comfortable. The patient is currently on room air oxygen Head exam was generally normal. There was no scleral icterus or corneal arcus. Mucous membranes were moist. HEENT examination is grossly unremarkable. Neck supple. Full range of motion. No adenopathy thyromegaly or neck vein distention. Cardiovascular examination reveals regular rhythm rate. S1-S2 normal. No S3 or S4. No discernible murmur noted. Heart rate 79 bpm. Lungs reveal scattered bilateral rhonchi and wheezes. There is also crackles at the bases. Breath sounds equal bilaterally. S Abdominal exam revealed normal bowel sounds. The abdomen was soft, non-tender, and without masses, organomegaly, or appreciable enlargement of the abdominal aorta. Extremities are intact. No cyanosis clubbing or edema. Skin is without rash or lesion. Neurologically, the patient is awake and alert and the patient does not have any focal neurological deficit. Cranial nerves are essentially intact. Results - Laboratory Findings CBC and BMP: 07/11/22 01:30 07/11/22 01:30 PT/INR, D-dimer PT 11.0 sec (9.0-12.0) 07/11/22 01:30 INR 1.0 (<1.2) 07/11/22 01:30 Abnormal lab findings: Abnormal Labs 07/11/22 07/11/22 07/11/22 01:30 01:30 01:30 WBC 13.3 H RBC 2.44 L Hgb 8.5 L Hct 26.6 L MCV 109.0 H Neutrophils # 12.3 H Lymphocytes # 0.3 L Macrocytosis Marked A Sodium 134 L BUN 55 H Creatinine 2.56 H Glucose 110 H Calcium 8.2 L Magnesium 2.4 H AST 89 H ALT 148 H Troponin I 0.083 H* Total Protein 5.5 L Albumin 3.3 L 07/11/22 07/11/22 05:05 08:49 WBC RBC Hgb Hct MCV Neutrophils # Lymphocytes # Macrocytosis Sodium BUN Creatinine Glucose Calcium Magnesium AST ALT Troponin I 0.085 H* 0.099 H* Total Protein Albumin - Diagnostic Findings Chest x-ray: image reviewed Assessment and Plan Plan: Shortness of breath, likely multifactorial, in part related to COPD exacerbation, and also CHF. It is quite hard rule out possibility of interstitial lung disease as the patient has taken amiodarone in the past. There are some increased markings which could be related to CHF also. I think is sanchez to stop amiodarone for now. The patient has normalized ejection fraction for now. Nonocclusive coronary artery disease, limited troponin leak COPD Previous history of nonischemic cardiomyopathy with subsequent normalization of the ejection fraction Multiple recent admissions to this hospital, for shortness of breath, thought to be related to both COPD and CHF. Previous history of smoking History of colon cancer, with previous resection, 2017 History of bladder cancer, status post chemoradiation. History of hypertension. History of hyperlipidemia. History of gastroesophageal reflux disease. History of cardiac arrest, 2019. History of stage IV chronic kidney disease. History of BPH. History of anemia. History of restless leg syndrome. Plan Agree on the current plan of treatment Keep the patient off amiodarone Continue Lasix Outpatient treatment of COPD which will unit as recommended along with albuterol neb last treatment [id number] and oxygen if needed We'll follow
--- NOTE | 2022-07-11 13:39 | P.PN ---
Subjective Progress Note Date: 07/11/22 Principal diagnosis: SOB Hospital course: 72-year-old male with past medical history of COPD, diastolic CHF, CK D stage III, history of cardiac arrest secondary to V. tach, nicotine dependence, bladder cancer, colon cancer status post resection and multiple recent admis sions for diastolic CHF exacerbation and acute COPD exacerbation, presenting with exertional dyspnea, orthopnea, PND, nonproductive cough. He is being admitted for mild acute diastolic CHF exacerbation and started on IV Lasix 40 twice a day. Last echocardiogram from 05/28 showed LVEF of 50-55%. Subjective: Patient seen and examined at bedside. He claims that his shortness of breath is remarkably improved since being in the hospital. He no longer has significant exertional dyspnea, or orthopnea. He claims that he has trace amounts of peripheral edema, and is getting better. He denies any nausea, vomiting, abdominal pain, chest pain, palpitations, urinary or bowel complaints. Pertinent positives and negatives as discussed above, a complete review of systems was performed and all other systems are negative. General: nontoxic, no distress, appears at stated age Derm: warm, dry Head: atraumatic, normocephalic, symmetric Eyes: EOMI, no lid lag, anicteric sclera Mouth: no lip lesion, mucus membranes moist Cardiovascular: S1S2 reg, no murmur, positive posterior tibial pulse bilateral, Lungs: CTA bilateral, no rhonchi, no rales , no accessory muscle use Abdominal: soft, nontender to palpation, no guarding, no appreciable organomegaly Ext: no gross muscle atrophy, 2+ pitting edema to mid colon, no contractures Neuro: CN II-XI grossly intact, no focal neuro deficits Psych: Alert, oriented, appropriate affect Assessment and plan: Mild acute diastolic CHF exacerbation Pulmonary vascular congestion, with improvement compared to prior Pulmonary nodule -Exacerbation likely in the setting of increased fluid consumption -IV Lasix 40 twice a day -Continue home cardiac meds -Telemetry -Daily weights, ins and outs -Recent echo from 05/28 - LVEF 50-55% -On room air -Cardiology consulted -discontinue amiodarone, increase carvedilol -Recommend pulmonology consultation - shortness of breath likely multifactorial, including COPD and CHF, was a component of ILD secondary to amiodarone -Chest CT demonstrates marginal increase in pleural based left upper lobe anterior nodule measuring at 1.4 cm, progression of ILD Type 2 NSTEMI - in the setting of CHF exacerbation - denies chest pain CK D stage III -Stable Chronic macroytic anemia -Hemoglobin stable -B12 low normal in 05/28 - will give supplements COPD, not in exacerbation -Continue home inhalers DVT prophylaxis: Subcu heparin Full code Disposition: Likely be discharged tomorrow if continues to improve Objective - Vital Signs Vital signs: Vital Signs Temp 97.2 F L 07/10/22 23:54 Pulse 88 07/10/22 23:54 Resp 16 07/10/22 23:54 BP 154/78 07/10/22 23:54 Pulse Ox 95 07/10/22 23:54 FiO2 Intake & Output 07/10/22 07/11/22 07/11/22 18:59 06:59 18:59 Intake Total 118 Balance 118 Weight 58.06 kg Intake: Oral 118 - Labs CBC & Chem 7: 07/11/22 01:30 07/11/22 01:30 Labs: Abnormal Lab Results - Last 24 Hours (Table) 07/11/22 07/11/22 07/11/22 Range/Units 01:30 01:30 01:30 WBC 13.3 H (3.8-10.6) k/uL RBC 2.44 L (4.30-5.90) m/uL Hgb 8.5 L (13.0-17.5) gm/dL Hct 26.6 L (39.0-53.0) % MCV 109.0 H (80.0-100.0) fL Neutrophils # 12.3 H (1.3-7.7) k/uL Lymphocytes # 0.3 L (1.0-4.8) k/uL Macrocytosis Marked A Sodium 134 L (137-145) mmol/L BUN 55 H (9-20) mg/dL Creatinine 2.56 H (0.66-1.25) mg/dL Glucose 110 H (74-99) mg/dL Calcium 8.2 L (8.4-10.2) mg/dL Magnesium 2.4 H (1.6-2.3) mg/dL AST 89 H (17-59) U/L ALT 148 H (4-49) U/L Troponin I 0.083 H* (0.000-0.034) ng/mL Total Protein 5.5 L (6.3-8.2) g/dL Albumin 3.3 L (3.5-5.0) g/dL 07/11/22 07/11/22 Range/Units 05:05 08:49 WBC (3.8-10.6) k/uL RBC (4.30-5.90) m/uL Hgb (13.0-17.5) gm/dL Hct (39.0-53.0) % MCV (80.0-100.0) fL Neutrophils # (1.3-7.7) k/uL Lymphocytes # (1.0-4.8) k/uL Macrocytosis Sodium (137-145) mmol/L BUN (9-20) mg/dL Creatinine (0.66-1.25) mg/dL Glucose (74-99) mg/dL Calcium (8.4-10.2) mg/dL Magnesium (1.6-2.3) mg/dL AST (17-59) U/L ALT (4-49) U/L Troponin I 0.085 H* 0.099 H* (0.000-0.034) ng/mL Total Protein (6.3-8.2) g/dL Albumin (3.5-5.0) g/dL
[2022-07-11] MEDS: CYANOCOBALAMIN 500 MCG TAB PO SCH (16:25)
[2022-07-11] MEDS ORDERED: ATORVASTATIN 20 MG TAB PO SCH (21:00)
[2022-07-11] MEDS ORDERED: MIRTAZAPINE 15 MG TAB PO SCH (21:00)
[2022-07-12] MEDS: HYDROcodone/APAP 10-325MG 1 EACH TAB PO PRN ×2 (00:05→08:21)
[2022-07-12] MEDS: carvediloL 12.5 MG TAB PO SCH (06:26)
[2022-07-12 08:05] LABS: Basophils % (A) 0 %; Eosinophils # (A) 0.2 k/uL (0-0.7); Eosinophils % (A) 2 %; HCT 34.8 % (39.0-53.0); HGB 10.5 gm/dL (13.0-17.5); Hypochromasia Moderate; Lymphocytes # (A) 0.5 k/uL (1.0-4.8); Lymphocytes % (A) 5 %; MCH 34.3 pg (25.0-35.0); MCHC 30.3 g/dL (31.0-37.0); MCV 113.4 fL (80.0-100.0); Mean Platelet Volume 7.3; Monocytes # (A) 0.5 k/uL (0-1.0); Monocytes % (A) 4 %; Neutrophils # (A) 9.7 k/uL (1.3-7.7); Neutrophils % (A) 88 %; Platelet Count 333 k/uL (150-450); RBC 3.07 m/uL (4.30-5.90); RDW 15.1 % (11.5-15.5)
[2022-07-12 08:17] LABS: Macrocytosis Marked
[2022-07-12 08:19] LABS: Calcium 7.9 mg/dL (8.4-10.2)
[2022-07-12] MEDS: TAMSULOSIN 0.4 MG CAP.ER.24H PO SCH (08:20)
[2022-07-12] MEDS: hydrALAZINE HCL 50 MG TAB PO SCH (08:20)
[2022-07-12] MEDS: LOSARTAN 50 MG TAB PO SCH (08:21)
[2022-07-12] MEDS: ASPIRIN 81 MG PO SCH (08:21)
[2022-07-12] MEDS: CYANOCOBALAMIN 500 MCG TAB PO SCH (08:21)
[2022-07-12] MEDS: ISOSORBIDE MONONITRATE ER 30 MG TAB.ER.24H PO SCH (08:21)
[2022-07-12] MEDS: HEPARIN SODIUM,PORCINE/PF 5,000 UNIT/0.5 ML SYRINGE SQ SCH (08:22)
[2022-07-12 08:25] VITALS: BP 130/58; PULSE 64; RESP 18; TEMP 97.1
[2022-07-12] MEDS ORDERED: FUROSEMIDE 40 MG TAB PO SCH (09:00)
[2022-07-12] MEDS ORDERED: FAMOTIDINE 20 MG TAB PO SCH (09:00)
--- NOTE | 2022-07-12 09:26 | P.DS ---
Providers Date of admission: 07/11/22 04:22 Expected date of discharge: 07/12/22 Attending physician: oN Yang MD Consults: 07/11/22 04:21 Consult Physician Routine Consulting Provider: [facility] Consult Reason/Comments: chf Do you want consulting provider notified?: Yes, Notify in am 07/11/22 09:56 Consult Physician Routine Consulting Provider: Fanny Tee Consult Reason/Comments: amio toxicity lungs Do you want consulting provider notified?: Yes 07/11/22 10:33 Consult Physician Routine Consulting Provider: Fanny Tee Consult Reason/Comments: Amiodarone toxicity Do you want consulting provider notified?: Yes Primary care physician: [facility] Hospital Course: Discharge Diagnosis: Mild acute diastolic CHF exacerbation Occupational lung injury, interstitial lung disease Pulmonary nodule NSTEMI Chronic microcytic anemia History of cardiac arrest secondary to V. tach CKD stage III Hospital Course: 72-year-old male with past medical history of diastolic CHF, COPD, CK D stage III presented with worsening dyspnea secondary to mild acute diastolic CHF exacerbation and possibly related to interstitial lung disease. He was diuresed with IV Lasix 40 twice a day. Patient has had multiple recent hospitalizations or acute on chronic diastolic CHF exacerbation and acute COPD exacerbation. His last echo from 05/28 showed an LVEF of 50-55%. During this admission he was seen by cardiology as well as pulmonology. Per cardiology, less likely to be d iastolic CHF exacerbation. However, recommended to discontinue amiodarone to prevent any further lung injury. Per pulmonology, shortness of breath likely multifactorial, including COPD, CHF, and possibly ILD. Recommended to also discontinue amiodarone for now. CT chest - marginal increase in pleural based left upper lobe anterior nodule measuring 14 mm, previously 13 mm. Progression of interstitial lung disease with subpleural reticular and groundglass opacities, emphysematous changes. Nonspecific enlarged subcarinal lymph node. Patient was also taking high amounts of fluids, salt in his diet. He was educated regarding fluid restriction and salt restriction to control his symptoms of heart failure. He also has chronic macrocytic anemia with low normal B12 levels. He was discharged with B12 supplements. Patient seen and examined at bedside. Vital signs reviewed and stable. General: nontoxic, no distress, appears at stated age Derm: warm, dry Head: atraumatic, normocephalic, symmetric Eyes: EOMI, no lid lag, anicteric sclera Mouth: no lip lesion, mucus membranes moist Cardiovascular: S1S2 reg, no murmur Lungs: CTA bilateral, no rhonchi, no rales , no accessory muscle use Abdominal: soft, nontender to palpation, no guarding, no appreciable organomegaly Ext: no gross muscle atrophy, trace peripheral edema, no contractures Neuro: CN II-XI grossly intact, no focal neuro deficits Psych: Alert, oriented, appropriate affect A total of 46 minutes of time were spent preparing this complex discharge summary. Patient was discharged on 07/12/22 at 09:20. Patient Condition at Discharge: Stable Plan - Discharge Summary Discharge Rx Participant: No New Discharge Prescriptions: New Cyanocobalamin [Vitamin B-12] 1,000 mcg PO DAILY #30 tab Continue Tamsulosin [Flomax] 0.4 mg PO DAILY Multivitamins, Thera [Multivitamin (formulary)] 1 tab PO DAILY Famotidine [Pepcid] 20 mg PO BID Atorvastatin Calcium [Lipitor] 20 mg PO HS Nitroglycerin Sl Tabs 0.3mg 0.3 mg SL Q5M PRN PRN Reason: Chest Pain hydrALAZINE HCL [Apresoline] 100 mg PO TID Mirtazapine [Remeron] 30 mg PO HS carvediloL [Coreg*] 25 mg PO BID-W/MEALS #60 tab Potassium Chloride ER [K-Dur 20] 20 meq PO DAILY #14 tab Furosemide [Lasix] 40 mg PO BID@0900,1600 #60 tab Albuterol Inhaler [Ventolin Hfa Inhaler] 1 - 2 puff INHALATION RT-Q6H PRN 30 Days #1 dispenser PRN Reason: Shortness Of Breath Isosorbide Mononitrate ER [Imdur] 30 mg PO DAILY 30 Days #30 tab Losartan [Cozaar] 50 mg PO DAILY Fluticasone Propion/Salmeterol [Wixela 250-50 Inhub] 1 puff INHALATION RT-BID Melatonin 5 mg PO HS QUEtiapine [SEROquel] 150 mg PO HS Acetaminophen Tab [Tylenol] 650 mg PO Q6HR PRN tab PRN Reason: Mild Pain Or Fever > 100.5 HYDROcodone/APAP 10-325MG [[place] 10-325] 1 tab PO Q8H PRN #9 tab PRN Reason: Pain Aspirin 81 mg PO DAILY #30 tab Discontinued Amiodarone [Cordarone] 200 mg PO DAILY tab Discharge Medication List Tamsulosin [Flomax] 0.4 mg PO DAILY 06/04/16 [History] Famotidine [Pepcid] 20 mg PO BID 06/08/20 [History] Multivitamins, Thera [Multivitamin (formulary)] 1 tab PO DAILY 06/08/20 [History] Atorvastatin Calcium [Lipitor] 20 mg PO HS 06/24/21 [History] Losartan [Cozaar] 50 mg PO DAILY 06/24/21 [History] Fluticasone Propion/Salmeterol [Wixela 250-50 Inhub] 1 puff INHALATION RT-BID 08/27/21 [History] Melatonin 5 mg PO HS 05/31/22 [History] Mirtazapine [Remeron] 30 mg PO HS 05/31/22 [History] Nitroglycerin Sl Tabs 0.3mg 0.3 mg SL Q5M PRN 05/31/22 [History] QUEtiapine [SEROquel] 150 mg PO HS 05/31/22 [History] hydrALAZINE HCL [Apresoline] 100 mg PO TID 05/31/22 [History] Acetaminophen Tab [Tylenol] 650 mg PO Q6HR PRN tab 06/05/22 [Rx] HYDROcodone/APAP 10-325MG [[place] 10-325] 1 tab PO Q8H PRN #9 tab 06/05/22 [Rx] Aspirin 81 mg PO DAILY #30 tab 06/12/22 [Rx] Furosemide [Lasix] 40 mg PO BID@0900,1600 #60 tab 06/12/22 [Rx] Potassium Chloride ER [K-Dur 20] 20 meq PO DAILY #14 tab 06/12/22 [Rx] carvediloL [Coreg*] 25 mg PO BID-W/MEALS #60 tab 06/12/22 [Rx] Albuterol Inhaler [Ventolin Hfa Inhaler] 1 - 2 puff INHALATION RT-Q6H PRN 30 Days #1 dispenser 06/26/22 [Rx] Isosorbide Mononitrate ER [Imdur] 30 mg PO DAILY 30 Days #30 tab 07/04/22 [Rx] Cyanocobalamin [Vitamin B-12] 1,000 mcg PO DAILY #30 tab 07/12/22 [Rx] Follow up Appointment(s)/Referral(s): [facility],Clinic [Primary Care Provider] - 1-2 days Patient Instructions/Handouts: Low-Sodium Diet (GEN), Heart Failure (GEN) Discharge Disposition: HOME SELF-CARE
--- NOTE | 2022-07-12 10:42 | P.PN ---
Subjective Progress Note Date: 07/12/22 The patient is a 72-year-old male who is currently admitted to the hospital with increased shortness of breath. Cardiology was consulted for congestive heart failure. Computed tomography scan of the chest shows interstitial lung disease, which may be secondary to amiodarone toxicity. Amiodarone was discontinued yesterday. The patient was interviewed and examined lying comfortably in bed. He states his breathing has improved over the last 24 hours. He denies any chest pain or chest pressure. No dizziness or lightheadedness when he ambulates the unit. GENERAL: Well-appearing, well-nourished and in no acute distress. NECK: Supple without JVD or thyromegaly. LUNGS: Breath sounds diminished to auscultation bilaterally. Respiration equal and unlabored. No wheezes, rales or rhonchi. HEART: Regular rate and rhythm without murmurs, rubs or gallops. S1 and S2 heard. EXTREMITIES: Normal range of motion, no edema. No clubbing or cyanosis. Peripheral pulses intact and strong. VITALS: Blood pressure 130/58, pulse 64, respiratory rate 18, temp 97.1F, SpO2 98% on TELEMETRY: Sinus rhythm overnight LABS: WBC 11.0, hemoglobin 10.5, hematocrit 34.8, platelet 333, , sodium 136, potassium 4.0, BUN 64, creatinine 2.87 IMPRESSION: Shortness of breath, improving Interstitial lung disease, likely secondary to amiodarone toxicity Hypertension Elevated troponin, flat trend, not indicative of acute coronary syndrome History of chronic kidney disease, GFR 24 History nonischemic cardiomyopathy, limited medical in May 2022 shows LV function of 55-60% History of cardiac arrest, nonischemic, no need for antiarrhythmic therapy Former smoker PLAN: Continue current medication regimen Do not resume amiodarone 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 Cardoso I am dictating on behalf of Dr Fan Matta's history/physical and assessment/plan. Objective - Vital Signs Vital signs: Vital Signs Temp 97.1 F L 07/12/22 08:24 Pulse 64 07/12/22 08:24 Resp 18 07/12/22 08:24 BP 130/58 07/12/22 08:24 Pulse Ox 98 07/12/22 08:24 FiO2 Intake & Output 07/11/22 07/12/22 07/12/22 18:59 06:59 18:59 Intake Total 1434 1080 240 Output Total 450 530 Balance 984 550 240 Weight 58.06 kg 54.5 kg Intake: Oral 1434 1080 240 Output: Urine 450 530 - Labs CBC & Chem 7: 07/12/22 07:09 07/12/22 07:09 Labs: Abnormal Lab Results - Last 24 Hours (Table) 07/12/22 07/12/22 Range/Units 07:09 07:09 WBC 11.0 H (3.8-10.6) k/uL RBC 3.07 L (4.30-5.90) m/uL Hgb 10.5 L (13.0-17.5) gm/dL Hct 34.8 L (39.0-53.0) % MCV 113.4 H (80.0-100.0) fL MCHC 30.3 L (31.0-37.0) g/dL Neutrophils # 9.7 H (1.3-7.7) k/uL Lymphocytes # 0.5 L (1.0-4.8) k/uL Macrocytosis Marked A Sodium 136 L (137-145) mmol/L BUN 64 H (9-20) mg/dL Creatinine 2.87 H (0.66-1.25) mg/dL Calcium 7.9 L (8.4-10.2) mg/dL
--- NOTE | 2022-07-12 13:23 | P.PN ---
Subjective Progress Note Date: 07/12/22 This is a 72-year-old male patient, admitted again for worsening shortness of breath. He also reported he had increased dyspnea, orthopnea and increased lower extremity edema and he was having difficulty laying down flat. For that reason he came in. He has had multiple hospitalizations and he was in the hospital approximately a week ago and he was discharged home. He is known to have cardiac disease along with VT arrest back in 2019 and he was receiving amiodarone for quite some time. He is currently have mild nonobstructive coronary artery disease, nonischemic cardiomyopathy with a normalization of ejection fraction as the patient's EF was as low as 20% following the cardiac arrest and subsequent echocardiograms showed improvement in LV function with an ejection fraction of 50-55% with a trace MR and mild aortic stenosis. The patient also known to have chronic kidney disease, seizure disorder, hypertension, history of colon cancer with a previous right hemicolectomy in 2016 and a recent history of bladder cancer treated with radiation therapy and chemotherapy. The patient is known to have COPD. He is an ex-smoker. He is currently on Symbicort. No hemoptysis. No pleurisy. Chest x-ray during this current admission showed mild four-vessel congestion. CAT scan of the chest w ith some limited interstitial changes and background COPD.. EKG was normal sinus. On 07/12/2022, the patient is doing well. No specific complaints. No shortness of breath. His condition is stable for now. I think is related for discharge and he can utilize medications. His CHF is well optimized and a COPD Objective - Vital Signs Vital signs: Vital Signs Temp 97.1 F L 07/12/22 08:24 Pulse 64 07/12/22 08:24 Resp 18 07/12/22 08:24 BP 130/58 07/12/22 08:24 Pulse Ox 98 07/12/22 08:24 FiO2 Intake & Output 07/11/22 07/12/22 07/12/22 18:59 06:59 18:59 Intake Total 1434 1080 240 Output Total 450 530 Balance 984 550 240 Weight 58.06 kg 54.5 kg Intake: Oral 1434 1080 240 Output: Urine 450 530 - Exam No acute distress, oriented 3. No conversational dyspnea, or use of accessory muscles. When we saw the patient, he was on room air. He did look very comfortable. The patient is currently on room air oxygen Head exam was generally normal. There was no scleral icterus or corneal arcus. Mucous membranes were moist. HEENT examination is grossly unremarkable. Neck supple. Full range of motion. No adenopathy thyromegaly or neck vein distention. Cardiovascular examination reveals regular rhythm rate. S1-S2 normal. No S3 or S4. No discernible murmur noted. Heart rate 79 bpm. Lungs reveal scattered bilateral rhonchi and wheezes. There is also crackles at the bases. Breath sounds equal bilaterally. S Abdominal exam revealed normal bowel sounds. The abdomen was soft, non-tender, and without masses, organomegaly, or appreciable enlargement of the abdominal aorta. Extremities are intact. No cyanosis clubbing or edema. Skin is without rash or lesion. Neurologically, the patient is awake and alert and the patient does not have any focal neurological deficit. Cranial nerves are essentially intact. - Labs CBC & Chem 7: 07/12/22 07:09 07/12/22 07:09 Labs: Abnormal Lab Results - Last 24 Hours (Table) 07/12/22 07/12/22 Range/Units 07:09 07:09 WBC 11.0 H (3.8-10.6) k/uL RBC 3.07 L (4.30-5.90) m/uL Hgb 10.5 L (13.0-17.5) gm/dL Hct 34.8 L (39.0-53.0) % MCV 113.4 H (80.0-100.0) fL MCHC 30.3 L (31.0-37.0) g/dL Neutrophils # 9.7 H (1.3-7.7) k/uL Lymphocytes # 0.5 L (1.0-4.8) k/uL Macrocytosis Marked A Sodium 136 L (137-145) mmol/L BUN 64 H (9-20) mg/dL Creatinine 2.87 H (0.66-1.25) mg/dL Calcium 7.9 L (8.4-10.2) mg/dL Assessment and Plan Plan: Shortness of breath, likely multifactorial, in part related to COPD exacerbation, and also CHF. It is quite hard rule out possibility of intersti tial lung disease as the patient has taken amiodarone in the past. There are some increased markings which could be related to CHF also. I think is sanchez to stop amiodarone for now. The patient has normalized ejection fraction for now. Nonocclusive coronary artery disease, limited troponin leak COPD Previous history of nonischemic cardiomyopathy with subsequent normalization of the ejection fraction Multiple recent admissions to this hospital, for shortness of breath, thought to be related to both COPD and CHF. Previous history of smoking History of colon cancer, with previous resection, 2017 History of bladder cancer, status post chemoradiation. History of hypertension. History of hyperlipidemia. History of gastroesophageal reflux disease. History of cardiac arrest, 2019. History of stage IV chronic kidney disease. History of BPH. History of anemia. History of restless leg syndrome. Plan Recommendations are essentially the same [facility] CHF Outpatient follow-up for COPD Clear for discharge
== END 2022-07-12 12:26 | disposition home or self-care (01) ==
LOC: EC 22:59 → 3SCARD 07-11 04:22
PROVIDERS: ADMIT Internal Medicine; ATTEND Internal Medicine
DX: I13.0 Hypertensive heart and chronic kidney disease with heart failure and stage 1 through stage 4 chronic kidney disease, or unspecified chronic kidney disease (principal); I50.33 Acute on chronic diastolic (congestive) heart failure; N18.4 Chronic kidney disease, stage 4 (severe); E78.5 Hyperlipidemia, unspecified; K21.9 Gastro-esophageal reflux disease without esophagitis; E87.5 Hyperkalemia; G25.81 Restless legs syndrome; I42.8 Other cardiomyopathies; N40.0 Benign prostatic hyperplasia without lower urinary tract symptoms; G89.29 Other chronic pain; M54.50 Low back pain, unspecified; K64.9 Unspecified hemorrhoids; F41.9 Anxiety disorder, unspecified; D53.9 Nutritional anemia, unspecified; F17.210 Nicotine dependence, cigarettes, uncomplicated; J43.2 Centrilobular emphysema; I25.10 Atherosclerotic heart disease of native coronary artery without angina pectoris; I70.0 Atherosclerosis of aorta; I21.A1 Myocardial infarction type 2; K76.89 Other specified diseases of liver; R91.1 Solitary pulmonary nodule; J84.9 Interstitial pulmonary disease, unspecified; D50.9 Iron deficiency anemia, unspecified; I44.4 Left anterior fascicular block; I35.0 Nonrheumatic aortic (valve) stenosis; I73.9 Peripheral vascular disease, unspecified; F14.90 Cocaine use, unspecified, uncomplicated; G40.909 Epilepsy, unspecified, not intractable, without status epilepticus; Z79.899 Other long term (current) drug therapy; Z79.82 Long term (current) use of aspirin; Z88.8 Allergy status to other drugs, medicaments and biological substances; Z85.038 Personal history of other malignant neoplasm of large intestine; Z85.51 Personal history of malignant neoplasm of bladder; Z80.3 Family history of malignant neoplasm of breast; Z80.6 Family history of leukemia; Z80.7 Family history of other malignant neoplasms of lymphoid, hematopoietic and related tissues; Z82.5 Family history of asthma and other chronic lower respiratory diseases; Z20.822 Contact with and (suspected) exposure to COVID-19; Z86.74 Personal history of sudden cardiac arrest; Z92.21 Personal history of antineoplastic chemotherapy; Z92.3 Personal history of irradiation; Z90.49 Acquired absence of other specified parts of digestive tract
CPT/HCPCS: 96376; 96372 ×2; 96374; 99285; 36415; 93005; 83880; 80053; 80048; 83735; 84484; 85025 ×2; 85610; 85730; 87635; 71046; 71250; G0378 ×2; J1940; J1644 ×2

== ENCOUNTER 2022-07-29 18:57 | Inpatient (IN) | payer MEDICARE, OTHER ==
[2022-07-29] MEDS ORDERED: ALBUTEROL NEBULIZED 2.5 MG/3 ML INHALATION STA (19:42)
[2022-07-29] MEDS ORDERED: IPRATROPIUM 0.5 MG/2.5 ML NEBU INHALATION STA (19:44)
[2022-07-29] MEDS ORDERED: methylPREDNISolone SOD SUCCI 125 MG/2 ML VIAL IV STA (19:56)
[2022-07-29] MEDS ORDERED: MAGNESIUM SULFATE-D5W PMX 1 GM in DEXTROSE/WATER 1 100ML.BAG IVPB ONE (19:56)
[2022-07-29] MEDS ORDERED: LORazepam 2 MG/ML INJ IV STA (20:17)
--- NOTE | 2022-07-29 20:44 | XR ---
EXAMINATION TYPE: XR chest 1V DATE OF EXAM: 07/29/2022 8:37 PM COMPARISON: Chest radiographs from 07/02/2022, CT chest 07/11/2022. TECHNIQUE: XR chest 1V Frontal view of the chest. CLINICAL INDICATION:Male, 72 years old with history of difficulty breathing; FINDINGS: Lungs/Pleura: No pneumothorax or pleural effusion. Interval worsening of bibasilar patchy airspace op acities. Increased lucency within the lung apices. Pulmonary vascularity: Unremarkable. Heart/mediastinum: Cardiomediastinal silhouette is prominent in size and stable. Atherosclerotic moses cifications are seen in the aorta. Musculoskeletal: No acute osseous pathology. IMPRESSION: Interval worsening of bibasilar patchy airspace opacities likely representing multifocal pneumonia. T his is superimposed upon COPD changes.
[2022-07-29 20:45] LABS: Prothrombin Time 10.7 sec (9.0-12.0)
[2022-07-29 20:48] LABS: Albumin 4.3 g/dL (3.5-5.0); Calcium 8.8 mg/dL (8.4-10.2); Magnesium 2.2 mg/dL (1.6-2.3); Total Bilirubin 0.8 mg/dL (0.2-1.3); Total Protein 6.9 g/dL (6.3-8.2)
[2022-07-29 20:49] LABS: Basophils # (A) 0.1 k/uL (0-0.2); Basophils % (A) 1 %; Eosinophils # (A) 0.2 k/uL (0-0.7); Eosinophils % (A) 2 %; HCT 33.4 % (39.0-53.0); HGB 10.4 gm/dL (13.0-17.5); Hypochromasia Slight; Lymphocytes # (A) 0.6 k/uL (1.0-4.8); Lymphocytes % (A) 5 %; MCH 33.3 pg (25.0-35.0); Macrocytosis Moderate; Mean Platelet Volume 7.5; Monocytes # (A) 0.6 k/uL (0-1.0); Monocytes % (A) 5 %; Neutrophils # (A) 9.8 k/uL (1.3-7.7); Neutrophils % (A) 87 %; Platelet Count 297 k/uL (150-450); RBC 3.11 m/uL (4.30-5.90); WBC 11.3 k/uL (3.8-10.6)
[2022-07-29 20:55] LABS: MCV 107.3 fL (80.0-100.0)
[2022-07-29] MEDS ORDERED: MIDAZOLAM 1 MG/ML 5 ML VIAL IV STA (21:03)
[2022-07-29] MEDS ORDERED: NITROGLYCERIN SL TABS 0.4 MG TAB SUBLINGUAL STA (21:03)
[2022-07-29] MEDS ORDERED: ETOMIDATE 2 MG/ML 10 ML VIAL IVP STA (21:30)
[2022-07-29] MEDS ORDERED: ROCURONIUM 10 MG/ML (5 ML VIAL) IV STA (21:31)
[2022-07-29] MEDS ORDERED: FUROSEMIDE 10 MG/ML 4 ML VIAL IV STA (21:51)
--- NOTE | 2022-07-29 21:54 | XR ---
EXAMINATION TYPE: XR chest 1V portable DATE OF EXAM: 07/29/2022 9:43 PM COMPARISON: Chest radiographs from earlier today. TECHNIQUE: XR chest 1V portable Frontal view of the chest. CLINICAL INDICATION:Male, 72 years old with history of intubation; FINDINGS: Lungs/Pleura: No pneumothorax or pleural effusion. Redemonstration of bibasilar patchy airspace opaci ties with worsening right upper lung airspace opacities. Flattening of the diaphragms with left upper lobe airspace lucencies. Pulmonary vascularity: Unremarkable. Heart/mediastinum: Cardiomediastinal silhouette is stable and prominent size. Atherosclerotic calcif ications are seen in the aorta. Musculoskeletal: No acute osseous pathology. Other findings: None Lines/Tubes: Endotracheal tube with distal tip 4.2 cm above the prudence Nasogastric tube with its distal tip and side-port projecting under the diaphragm. IMPRESSION: 1. Interval placement of NG and endotracheal tubes in appropriate position. 2. Interval worsening of multifocal patchy bilateral airspace disease concerning for pneumonia. 3. COPD changes.
[2022-07-29 22:22] LABS: ABG Base Excess -5.6 mmol/L; ABG HCO3 23 mmol/L (21-25); ABG PCO2 63 mmHg (35-45); ABG PO2 71 mmHg (83-108); ABG TCO2 25 mmol/L (19-24)
[2022-07-29] MEDS ORDERED: NITROGLYCERIN-D5W PMX 50 MG in DEXTROSE/WATER 1 250ML.BAG IV ONE (22:23)
[2022-07-29 22:26] LABS: ABG PH 7.17 (7.35-7.45); Allen Test Performed? yes
[2022-07-29] MEDS ORDERED: NALOXONE 0.4 MG/ML 1 ML VIAL IV PRN (22:53)
--- NOTE | 2022-07-29 22:53 | ED ---
SOB HPI - General Chief Complaint: Shortness of Breath Stated Complaint: SOB Time Seen by Provider: 07/29/22 19:25 Source: patient Mode of arrival: ambulatory Limitations: no limitations - History of Present Illness Initial Comments: 72-year-old male with past history of COPD, congestive heart failure presents to the emergency department with respiratory distress. Patient reports that he was somewhat short of breath today. He went to the gas station and as he was pumping gas became acutely short of breath after breathing in the fumes. Presents to our hospital with an oxygen saturation of 78%. He denies home oxygen use. States he's been using his rescue inhaler without improvement in his symptoms. Not currently on any steroids or antibiotics. Denies fevers, chills or cough. He does take Lasix twice daily. Patient states he's been taking his medications as directed. He was recently hospitalized for similar complaint. The remainder the HPI is limited due to the patient's respiratory distress - Related Data Home Medications Medication Instructions Recorded Confirmed Tamsulosin [Flomax] 0.4 mg PO DAILY 06/04/16 07/29/22 Famotidine [Pepcid] 20 mg PO BID 06/08/20 07/29/22 Multivitamins, Thera [Multivitamin 1 tab PO DAILY 06/08/20 07/29/22 (formulary)] Atorvastatin Calcium [Lipitor] 20 mg PO HS 06/24/21 07/29/22 Losartan [Cozaar] 50 mg PO DAILY 06/24/21 07/29/22 Fluticasone Propion/Salmeterol 1 puff INHALATION RT-BID 08/27/21 07/29/22 [Wixela 250-50 Inhub] Melatonin 5 mg PO HS 05/31/22 07/29/22 Mirtazapine [Remeron] 30 mg PO HS 05/31/22 07/29/22 Nitroglycerin Sl Tabs 0.3mg 0.3 mg SL Q5M PRN 05/31/22 07/29/22 QUEtiapine [SEROquel] 150 mg PO HS 05/31/22 07/29/22 hydrALAZINE HCL [Apresoline] 100 mg PO TID 05/31/22 07/29/22 Previous Rx's Medication Instructions Recorded Acetaminophen Tab [Tylenol] 650 mg PO Q6HR PRN tab 06/05/22 HYDROcodone/APAP 10-325MG [Ellsworth 1 tab PO Q8H PRN #9 tab 06/05/22 10-325] Aspirin 81 mg PO DAILY #30 tab 06/12/22 Furosemide [Lasix] 40 mg PO BID@0900,1600 #60 tab 06/12/22 Potassium Chloride ER [K-Dur 20] 20 meq PO DAILY #14 tab 06/12/22 carvediloL [Coreg*] 25 mg PO BID-W/MEALS #60 tab 06/12/22 Albuterol Inhaler [Ventolin Hfa 1 - 2 puff INHALATION RT-Q6H PRN 06/26/22 Inhaler] 30 Days #1 dispenser Isosorbide Mononitrate ER [Imdur] 30 mg PO DAILY 30 Days #30 tab 07/04/22 Cyanocobalamin [Vitamin B-12] 1,000 mcg PO DAILY #30 tab 07/12/22 Allergies Allergy/AdvReac Type Severity Reaction Status Date / Time lisinopril Allergy Angioedema., Verified 07/29/22 19:32 swollen testicle, rash Review of Systems ROS Statement: Those systems with pertinent positive or pertinent negative responses have been documented in the HPI. ROS Other: All systems not noted in ROS Statement are negative. Past Medical History Past Medical History: Cancer, Heart Failure, COPD, GERD/Reflux, Hyperlipidemia, Hypertension, Prostate Disorder, Renal Disease Additional Past Medical History / Comment(s): Pt recently admitted to [facility] on 06/11/22 with acute on chronic CHF, hyperkalemia. Other hx: Recent bladder cancer/completed oral chemo and radiation, past colon cancer with resection, nonischemic cardiomyopathy, 2020 cardiac arrent/Vtach, CKD stage IV, BPH, hemorrhoids, anemia, RLS, chronic low back pain History of Any Multi-Drug Resistant Organisms: None Reported Past Surgical History: Appendectomy, Bowel Resection, Heart Catheterization, Orthopedic Surgery Additional Past Surgical History / Comment(s): R hemicolectomy, colonoscopies, nasal surgery to repair ulcer, R knee arthroscopic surgeries (ACL repair and meniscus repair), L heel fusion d/t trauma, L arm bicep surgery. Past Anesthesia/Blood Transfusion Reactions: No Reported Reaction Past Psychological History: Anxiety Smoking Status: Current every day smoker Past Alcohol Use History: None Reported Past Drug Use History: None Reported - Past Family History Mother Family Medical History: Cancer Additional Family Medical History / Comment(s): BREAST Sister(s) Family Medical History: Deep Vein Thrombosis (DVT) Additional Family Medical History / Comment(s): 1 sister had leukemia, and another sister had non hodgkins. Father Family Medical History: COPD Additional Family Medical History / Comment(s): FROM CARDIAC ARREST General Exam Limitations: no limitations General appearance: alert, anxious, in distress Head exam: Present: atraumatic, normocephalic, normal inspection Eye exam: Present: normal appearance, PERRL, EOMI. Absent: scleral icterus, conjunctival injection, periorbital swelling ENT exam: Present: mucous membranes dry Respiratory exam: Present: respiratory distress, wheezes, accessory muscle use, decreased breath sounds Cardiovascular Exam: Present: normal rhythm, tachycardia GI/Abdominal exam: Present: soft, normal bowel sounds. Absent: distended, tenderness, guarding, rebound, rigid Extremities exam: Present: normal inspection, full ROM, normal capillary refill. Absent: tenderness, pedal edema, joint swelling, calf tenderness Neurological exam: Present: alert, oriented X3 Psychiatric exam: Present: agitated, anxious Skin exam: Present: diaphoretic Course Vital Signs 07/29/22 07/29/22 07/29/22 19:29 19:38 19:40 Temperature 98.3 F Pulse Rate 111 H 112 H Respiratory 34 H 36 H Rate Blood Pressure 208/96 O2 Sat by Pulse 78 L 75 L 86 L Oximetry Fraction of Inspired Oxygen (FIO2) 07/29/22 07/29/22 07/29/22 19:48 19:50 19:56 Temperature Pulse Rate 106 H 105 H 106 H Respiratory 18 Rate Blood Pressure O2 Sat by Pulse 91 L Oximetry Fraction of Inspired Oxygen (FIO2) 07/29/22 07/29/22 07/29/22 20:00 20:10 20:20 Temperature 97.6 F Pulse Rate 109 H 112 H 122 H Respiratory 30 H 28 H 19 Rate Blood Pressure O2 Sat by Pulse 92 L 92 L 88 L Oximetry Fraction of 100 Inspired Oxygen (FIO2) 07/29/22 07/29/22 07/29/22 20:29 20:30 20:31 Temperature Pulse Rate 114 H 112 H 119 H Respiratory 17 24 Rate Blood Pressure 233/135 O2 Sat by Pulse 94 L 94 L Oximetry Fraction of 60 Inspired Oxygen (FIO2) 07/29/22 07/29/22 07/29/22 20:40 20:50 21:00 Temperature Pulse Rate 122 H 128 H 128 H Respiratory 23 21 34 H Rate Blood Pressure 233/135 233/135 O2 Sat by Pulse 93 L 89 L 89 L Oximetry Fraction of Inspired Oxygen (FIO2) 07/29/22 07/29/22 07/29/22 21:10 21:20 21:48 Temperature Pulse Rate 124 H Respiratory 41 H Rate Blood Pressure 230/141 230/141 O2 Sat by Pulse Oximetry Fraction of 100 Inspired Oxygen (FIO2) 07/29/22 07/29/22 07/29/22 22:00 22:23 22:35 Temperature Pulse Rate 120 H 116 H 114 H Respiratory 22 22 24 Rate Blood Pressure 209/116 192/105 187/104 O2 Sat by Pulse 92 L 94 L 95 Oximetry Fraction of Inspired Oxygen (FIO2) 07/29/22 07/29/22 07/29/22 22:37 22:42 22:46 Temperature Pulse Rate 114 H 112 H 111 H Respiratory 24 24 24 Rate Blood Pressure 143/89 168/99 180/101 O2 Sat by Pulse 95 96 96 Oximetry Fraction of Inspired Oxygen (FIO2) 07/29/22 07/29/22 07/29/22 22:54 23:00 23:07 Temperature Pulse Rate 107 H 107 H 106 H Respiratory 24 24 24 Rate Blood Pressure 178/100 181/100 178/98 O2 Sat by Pulse 96 96 96 Oximetry Fraction of Inspired Oxygen (FIO2) 07/29/22 07/29/22 07/29/22 23:14 23:30 23:40 Temperature Pulse Rate 105 H 102 H 101 H Respiratory 24 24 24 Rate Blood Pressure 146/84 148/86 143/88 O2 Sat by Pulse 97 97 98 Oximetry Fraction of Inspired Oxygen (FIO2) 07/30/22 00:00 Temperature Pulse Rate Respiratory Rate Blood Pressure O2 Sat by Pulse Oximetry Fraction of 80 Inspired Oxygen (FIO2) Procedures - Intubation Sedative: Etomidate Mg Given: 20 Paralytic: Rocuronium Mg Given: 50 Size: 4 Assist Device Used: fiber optic device ET Tube Size: 7.5 ET Tube Uncuffed: No Tube Secured Depth (cm): 24 Tube Secured Location: teeth Tube Placement Confirmation: visualized tube passing through cords, equal breath sounds bilaterally, no breath sounds over epigastrium, confirmation by capnometry Patient Tolerated Procedure: well, no complications Intubation Complications: none Medical Decision Making - Medical Decision Making Upon arrival patient was placed into room 4. He does have significant respiratory distress. Respiratory is called the bedside. Patient does have minimal air movement and therefore he is given 3 albuterol breathing treatments and one ipratropium treatment. IV access is established and laboratory studies are conducted. He is also given 125 mg of Solu-Medrol and a gram of magnesium. Evaluation demonstrates the patient has no improvement with the use immediate interventions and therefore the patient is placed on BiPAP due to increased work of breathing. Patient does have improvement in his oxygen saturations. Chest x-ray is able to be performed. Review the patient's labs demonstrates a troponin of 0.086. BNP is 101,000. Covid and influenza are not detected. Chest x-ray demonstrates bibasilar patchy airspace opacities. Patient was given 60 mg of Lasix and a sublingual nitro. Patient continues to get worse. Has increased work of breathing and hypoxia down to 69% on the BiPAP. Because of this decision is made to intubate the patient. Patient moved to trauma bay 1. He is given 20 mg of etomidate and 50 mg of rocuronium. Patient is intubated with a 7-1/2 ET tube, 24 cm at the gum. Repeat chest x-rays performed which continues to demonstrate worsening airspace disease bilaterally. Then settings are adjusted to 18, 400, 100% with a PEEP of 10. Patient is saturating 93%. Placed on propofol drip for sedation. Patient continues to have elevated blood pressures and therefore started on a nitro drip.. Spoke with Dr. Bruner who was agreeable to admission to the ICU. Also spoke with Dr. Yang who will admit the patient to his service. - Lab Data Result diagrams: 08/02/22 03:11 08/02/22 03:19 Lab Results 07/29/22 07/29/22 07/29/22 Range/Units 20:07 20:09 20:09 WBC 11.3 H (3.8-10.6) k/uL RBC 3.11 L (4.30-5.90) m/uL Hgb 10.4 L (13.0-17.5) gm/dL Hct 33.4 L (39.0-53.0) % MCV 107.3 H D (80.0-100.0) fL MCH 33.3 (25.0-35.0) pg MCHC 31.0 (31.0-37.0) g/dL RDW 14.0 (11.5-15.5) % Plt Count 297 (150-450) k/uL MPV 7.5 Neutrophils % 87 % Lymphocytes % 5 % Monocytes % 5 % Eosinophils % 2 % Basophils % 1 % Neutrophils # 9.8 H (1.3-7.7) k/uL Lymphocytes # 0.6 L (1.0-4.8) k/uL Monocytes # 0.6 (0-1.0) k/uL Eosinophils # 0.2 (0-0.7) k/uL Basophils # 0.1 (0-0.2) k/uL Hypochromasia Slight Macrocytosis Moderate PT 10.7 (9.0-12.0) sec INR 1.0 (<1.2) APTT 25.0 (22.0-30.0) sec Sample Site ABG pH (7.35-7.45) ABG pCO2 (35-45) mmHg ABG pO2 (83-108) mmHg ABG HCO3 (21-25) mmol/L ABG Total CO2 (19-24) mmol/L ABG O2 Saturation (94-97) % ABG Base Excess mmol/L Chris Test FiO2 % Sodium (137-145) mmol/L Potassium (3.5-5.1) mmol/L Chloride (98-107) mmol/L Carbon Dioxide (22-30) mmol/L Anion Gap mmol/L BUN (9-20) mg/dL Creatinine (0.66-1.25) mg/dL Est GFR (CKD-EPI)AfAm (>60 ml/min/1.73 sqM) Est GFR (CKD-EPI)NonAf (>60 ml/min/1.73 sqM) Glucose (74-99) mg/dL Plasma Lactic Acid Dipesh (0.7-2.0) mmol/L Calcium (8.4-10.2) mg/dL Magnesium (1.6-2.3) mg/dL Total Bilirubin (0.2-1.3) mg/dL AST (17-59) U/L ALT (4-49) U/L Alkaline Phosphatase (38-126) U/L Troponin I (0.000-0.034) ng/mL NT-Pro-B Natriuret Pep pg/mL Total Protein (6.3-8.2) g/dL Albumin (3.5-5.0) g/dL Coronavirus (PCR) Not Detected (Not Detectd) Influenza Type A RNA (Not Detectd) Influenza Type B (PCR) (Not Detectd) 07/29/22 07/29/22 07/29/22 Range/Units 20:09 20:09 20:09 WBC (3.8-10.6) k/uL RBC (4.30-5.90) m/uL Hgb (13.0-17.5) gm/dL Hct (39.0-53.0) % MCV (80.0-100.0) fL MCH (25.0-35.0) pg MCHC (31.0-37.0) g/dL RDW (11.5-15.5) % Plt Count (150-450) k/uL MPV Neutrophils % % Lymphocytes % % Monocytes % % Eosinophils % % Basophils % % Neutrophils # (1.3-7.7) k/uL Lymphocytes # (1.0-4.8) k/uL Monocytes # (0-1.0) k/uL Eosinophils # (0-0.7) k/uL Basophils # (0-0.2) k/uL Hypochromasia Macrocytosis PT (9.0-12.0) sec INR (<1.2) APTT (22.0-30.0) sec Sample Site ABG pH (7.35-7.45) ABG pCO2 (35-45) mmHg ABG pO2 (83-108) mmHg ABG HCO3 (21-25) mmol/L ABG Total CO2 (19-24) mmol/L ABG O2 Saturation (94-97) % ABG Base Excess mmol/L Chris Test FiO2 % Sodium 136 L (137-145) mmol/L Potassium 5.0 (3.5-5.1) mmol/L Chloride 104 (98-107) mmol/L Carbon Dioxide 18 L (22-30) mmol/L Anion Gap 14 mmol/L BUN 42 H (9-20) mg/dL Creatinine 2.35 H (0.66-1.25) mg/dL Est GFR (CKD-EPI)AfAm 31 (>60 ml/min/1.73 sqM) Est GFR (CKD-EPI)NonAf 27 (>60 ml/min/1.73 sqM) Glucose 111 H (74-99) mg/dL Plasma Lactic Acid Dipesh 1.0 (0.7-2.0) mmol/L Calcium 8.8 (8.4-10.2) mg/dL Magnesium 2.2 (1.6-2.3) mg/dL Total Bilirubin 0.8 (0.2-1.3) mg/dL AST 53 (17-59) U/L ALT 27 (4-49) U/L Alkaline Phosphatase 53 (38-126) U/L Troponin I 0.086 H* (0.000-0.034) ng/mL NT-Pro-B Natriuret Pep pg/mL Total Protein 6.9 (6.3-8.2) g/dL Albumin 4.3 (3.5-5.0) g/dL Coronavirus (PCR) (Not Detectd) Influenza Type A RNA (Not Detectd) Influenza Type B (PCR) (Not Detectd) 07/29/22 07/29/22 07/29/22 Range/Units 20:09 20:30 21:45 WBC (3.8-10.6) k/uL RBC (4.30-5.90) m/uL Hgb (13.0-17.5) gm/dL Hct (39.0-53.0) % MCV (80.0-100.0) fL MCH (25.0-35.0) pg MCHC (31.0-37.0) g/dL RDW (11.5-15.5) % Plt Count (150-450) k/uL MPV Neutrophils % % Lymphocytes % % Monocytes % % Eosinophils % % Basophils % % Neutrophils # (1.3-7.7) k/uL Lymphocytes # (1.0-4.8) k/uL Monocytes # (0-1.0) k/uL Eosinophils # (0-0.7) k/uL Basophils # (0-0.2) k/uL Hypochromasia Macrocytosis PT (9.0-12.0) sec INR (<1.2) APTT (22.0-30.0) sec Sample Site Left Radial ABG pH 7.17 L* (7.35-7.45) ABG pCO2 63 H (35-45) mmHg ABG pO2 71 L (83-108) mmHg ABG HCO3 23 (21-25) mmol/L ABG Total CO2 25 H (19-24) mmol/L ABG O2 Saturation 87.0 L (94-97) % ABG Base Excess -5.6 mmol/L Chris Test yes FiO2 100 % Sodium (137-145) mmol/L Potassium (3.5-5.1) mmol/L Chloride (98-107) mmol/L Carbon Dioxide (22-30) mmol/L Anion Gap mmol/L BUN (9-20) mg/dL Creatinine (0.66-1.25) mg/dL Est GFR (CKD-EPI)AfAm (>60 ml/min/1.73 sqM) Est GFR (CKD-EPI)NonAf (>60 ml/min/1.73 sqM) Glucose (74-99) mg/dL Plasma Lactic Acid Dipesh (0.7-2.0) mmol/L Calcium (8.4-10.2) mg/dL Magnesium (1.6-2.3) mg/dL Total Bilirubin (0.2-1.3) mg/dL AST (17-59) U/L ALT (4-49) U/L Alkaline Phosphatase (38-126) U/L Troponin I (0.000-0.034) ng/mL NT-Pro-B Natriuret Pep [id number] pg/mL Total Protein (6.3-8.2) g/dL Albumin (3.5-5.0) g/dL Coronavirus (PCR) (Not Detectd) Influenza Type A RNA Not Detected (Not Detectd) Influenza Type B (PCR) Not Detected (Not Detectd) - EKG Data EKG Comments: EKG demonstrates sinus tachycardia with a rate of 108. [place] interval 171. QRS 107. QTC 422. ST depression 2, 3, aVF, V4 through V6. mild ST segment elevation in aVL Critical Care Time Critical Care Time: Yes Critical Care Time: 50 minutes Disposition Clinical Impression: Acute exacerbation of congestive heart failure, COPD (chronic obstructive pulmonary disease), Ventilator dependent, Hypoxia, Hypertensive emergency, Elevated troponin I level, Acute respiratory failure Disposition: ADMITTED IP TO THIS HOSP Condition: Serious Is patient prescribed a controlled substance at d/c from ED?: No Time of Disposition: 22:53 Decision to Admit Reason: Admit from EC Decision Date: 07/29/22 Decision Time: 22:53
[2022-07-29] MEDS ORDERED: cefTRIAXone IN SWFI 1,000 MG/10 ML SYRINGE IVP STA (22:58)
[2022-07-29] MEDS ORDERED: AZITHROMYCIN 500 MG in SODIUM CHLORIDE 0.9% 250 ML IVPB STA (22:58)
[2022-07-30 00:15] LABS: Glucose,Whole Blood 231 mg/dL (70-110)
--- NOTE | 2022-07-30 03:44 | P.HPIM ---
History of Present Illness H&P Date: 07/29/22 Chief Complaint: shortnes of breath 72-year-old male with diastolic congestive heart failure, COPD , history of Vtach arrest Patient was recently hospitalized for difficulty breathing was found to be multi-factorial secondary to diastolic CHF COPD and amiodarone side effect which was discontinued due to concerns regarding pulmonary fibrosis he comes in today due to difficulty breathing started suddenly while pumping gas, he presented with SOB , and hypoxemia , and initiated on breathing treatments and bipap. however he progressed rapidly to flash pulmonary edema let hargy and his blood pressure was 230 systolic. patient was intubated and sedated, started on nitro drip. in the ED. at time of my evaluation patient was intubated and sedated no history available other than reviewing medical records. CXR showed evidence of pulmonary edema. uncontrolled hypertension Review of Systems ROS unobtainable: due to endotracheal tube Past Medical History Past Medical History: Cancer, Heart Failure, COPD, GERD/Reflux, Hyperlipidemia, Hypertension, Prostate Disorder, Renal Disease Additional Past Medical History / Comment(s): Pt recently admitted to [facility] on 06/11/22 with acute on chronic CHF, hyperkalemia. Other hx: Recent bladder cancer/completed oral chemo and radiation, past colon cancer with resection, nonischemic cardiomyopathy, 2020 cardiac arrent/Vtach, CKD stage IV, BPH, hemorrhoids, anemia, RLS, chronic low back pain History of Any Multi-Drug Resistant Organisms: None Reported Past Surgical History: Appendectomy, Bowel Resection, Heart Catheterization, Orthopedic Surgery Additional Past Surgical History / Comment(s): R hemicolectomy, colonoscopies, nasal surgery to repair ulcer, R knee arthroscopic surgeries (ACL repair and meniscus repair), L heel fusion d/t trauma, L arm bicep surgery. Past Anesthesia/Blood Transfusion Reactions: No Reported Reaction Past Psychological History: Anxiety Smoking Status: Current every day smoker Past Alcohol Use History: None Reported Past Drug Use History: None Reported - Past Family History Mother Family Medical History: Cancer Additional Family Medical History / Comment(s): BREAST Sister(s) Family Medical History: Deep Vein Thrombosis (DVT) Additional Family Medical History / Comment(s): 1 sister had leukemia, and another sister had non hodgkins. Father Family Medical History: COPD Additional Family Medical History / Comment(s): FROM CARDIAC ARREST Medications and Allergies Home Medications Medication Instructions Recorded Confirmed Type Tamsulosin [Flomax] 0.4 mg PO DAILY 06/04/16 07/29/22 History Famotidine [Pepcid] 20 mg PO BID 06/08/20 07/29/22 History Multivitamins, Thera [Multivitamin 1 tab PO DAILY 06/08/20 07/29/22 History (formulary)] Atorvastatin Calcium [Lipitor] 20 mg PO HS 06/24/21 07/29/22 History Losartan [Cozaar] 50 mg PO DAILY 06/24/21 07/29/22 History Fluticasone Propion/Salmeterol 1 puff INHALATION RT-BID 08/27/21 07/29/22 History [Wixela 250-50 Inhub] Melatonin 5 mg PO HS 05/31/22 07/29/22 History Mirtazapine [Remeron] 30 mg PO HS 05/31/22 07/29/22 History Nitroglycerin Sl Tabs 0.3mg 0.3 mg SL Q5M PRN 05/31/22 07/29/22 History QUEtiapine [SEROquel] 150 mg PO HS 05/31/22 07/29/22 History hydrALAZINE HCL [Apresoline] 100 mg PO TID 05/31/22 07/29/22 History Acetaminophen Tab [Tylenol] 650 mg PO Q6HR PRN tab 06/05/22 07/29/22 Rx HYDROcodone/APAP 10-325MG [[place] 1 tab PO Q8H PRN #9 tab 06/05/22 07/29/22 Rx 10-325] Aspirin 81 mg PO DAILY #30 tab 06/12/22 07/29/22 Rx Furosemide [Lasix] 40 mg PO BID@0900,1600 #60 tab 06/12/22 07/29/22 Rx Potassium Chloride ER [K-Dur 20] 20 meq PO DAILY #14 tab 06/12/22 07/29/22 Rx carvediloL [Coreg*] 25 mg PO BID-W/MEALS #60 tab 06/12/22 07/29/22 Rx Albuterol Inhaler [Ventolin Hfa 1 - 2 puff INHALATION RT-Q6H PRN 06/26/22 07/29/22 Rx Inhaler] 30 Days #1 dispenser Isosorbide Mononitrate ER [Imdur] 30 mg PO DAILY 30 Days #30 tab 07/04/22 07/29/22 Rx Cyanocobalamin [Vitamin B-12] 1,000 mcg PO DAILY #30 tab 07/12/22 07/29/22 Rx Allergies Allergy/AdvReac Type Severity Reaction Status Date / Time lisinopril Allergy Angioedema., Verified 07/29/22 19:32 swollen testicle, rash Physical Exam Vitals: Vital Signs Temp Pulse Resp BP Pulse Ox FiO2 07/30/22 03:10 80 18 108/68 100 07/30/22 03:00 80 18 106/70 100 07/30/22 02:50 81 18 106/70 100 07/30/22 02:40 80 13 109/71 100 07/30/22 02:30 81 16 113/72 100 07/30/22 02:20 81 18 113/72 100 07/30/22 02:10 82 15 111/74 100 07/30/22 02:00 83 14 115/76 100 07/30/22 01:50 83 15 115/76 100 07/30/22 01:40 84 15 120/77 100 07/30/22 01:30 86 16 123/79 100 07/30/22 01:20 86 15 123/79 100 07/30/22 01:15 80 07/30/22 01:10 86 15 126/83 100 07/30/22 01:00 87 16 132/84 100 07/30/22 00:50 89 19 132/84 100 07/30/22 00:40 87 18 123/80 100 07/30/22 00:30 89 18 116/74 97 07/30/22 00:20 91 18 94/84 95 07/30/22 00:15 90 16 124/79 91 L 100 07/30/22 00:00 80 07/29/22 23:40 101 H 24 143/88 98 07/29/22 23:30 102 H 24 148/86 97 07/29/22 23:14 105 H 24 146/84 97 07/29/22 23:07 106 H 24 178/98 96 07/29/22 23:00 107 H 24 181/100 96 07/29/22 22:54 107 H 24 178/100 96 07/29/22 22:46 111 H 24 180/101 96 07/29/22 22:42 112 H 24 168/99 96 07/29/22 22:37 114 H 24 143/89 95 07/29/22 22:35 114 H 24 187/104 95 07/29/22 22:23 116 H 22 192/105 94 L 07/29/22 22:00 120 H 22 209/116 92 L 07/29/22 21:48 100 07/29/22 21:45 100 07/29/22 21:20 230/141 07/29/22 21:10 124 H 41 H 230/141 07/29/22 21:00 128 H 34 H 233/135 89 L 07/29/22 20:50 128 H 21 233/135 89 L 07/29/22 20:40 122 H 23 93 L 07/29/22 20:31 119 H 24 233/135 94 L 60 07/29/22 20:30 112 H 17 94 L 07/29/22 20:29 114 H 07/29/22 20:20 122 H 19 88 L 07/29/22 20:10 112 H 28 H 92 L 07/29/22 20:00 97.6 F 109 H 30 H 92 L 100 07/29/22 19:56 106 H 07/29/22 19:50 105 H 18 91 L 07/29/22 19:48 106 H 07/29/22 19:40 112 H 36 H 86 L 07/29/22 19:38 75 L 07/29/22 19:29 98.3 F 111 H 34 H 208/96 78 L Intake and Output 07/29/22 07/29/22 07/30/22 14:59 22:59 06:59 Intake Total 7.309 55.017 Output Total 550 Balance 7.309 -494.983 Intake: Intake, IV Titration 7.309 55.017 Amount Nitroglycerin-D5w Pmx 50 0.675 8.375 mg In Dextrose/Water 1 250ml.bag @ 5 MCG/MIN 1.5 mls/hr IV .Q24H [facility] Rx#: [id number] propofoL 1,000 mg In 6.634 46.642 Empty Bag 1 bag @ 5 MCG/ KG/MIN 1.769 mls/hr IV . Q24H [facility] Rx#:[id number] Output: Urine 550 Other: Voiding Method Indwelling Catheter Weight 58.967 kg Constitutional: intubated sedated Eyes: Anicteric sclerae, moist conjunctiva, Pupils equal round reactive to light ENMT: NC/AT Neck: Supple, no masses, or JVD No carotid bruits No thyromegaly Lungs: Clear to auscultation Clear to percussion Normal respiratory effort, no accessory muscle use Cardiovascular: Heart regular in rate and rhythm, No murmurs, gallops, or rubs No peripheral edema Abdominal: Soft Nontender, no guarding, rebound or rigidity Abdomen moving with respiration Normoactive bowel sounds No hepatomegaly, No splenomegaly No palpable mass No abdominal wall hernia noted Skin: Normal temperature, tone, texture, turgor No induration No subcutaneous nodules No rash, lesions No ulcers Extremities: No digital cyanosis No clubbing Pedal pulses intact and symmetrical Radial pulses intact and symmetrical No calf tenderness Psychiatric: intubated sedated Neuro intubated sedated Lymphatics: no palpable cervical or supraclavicular , lymph nodes Results CBC & Chem 7: 07/29/22 20:09 07/29/22 20:09 Labs: Abnormal Lab Results - Last 24 Hours (Table) 07/29/22 07/29/22 07/29/22 Range/Units 20:09 20:09 20:09 WBC 11.3 H (3.8-10.6) k/uL RBC 3.11 L (4.30-5.90) m/uL Hgb 10.4 L (13.0-17.5) gm/dL Hct 33.4 L (39.0-53.0) % MCV 107.3 H D (80.0-100.0) fL Neutrophils # 9.8 H (1.3-7.7) k/uL Lymphocytes # 0.6 L (1.0-4.8) k/uL ABG pH (7.35-7.45) ABG pCO2 (35-45) mmHg ABG pO2 (83-108) mmHg ABG Total CO2 (19-24) mmol/L ABG O2 Saturation (94-97) % Sodium 136 L (137-145) mmol/L Carbon Dioxide 18 L (22-30) mmol/L BUN 42 H (9-20) mg/dL Creatinine 2.35 H (0.66-1.25) mg/dL Glucose 111 H (74-99) mg/dL POC Glucose (mg/dL) (70-110) mg/dL Troponin I 0.086 H* (0.000-0.034) ng/mL 07/29/22 07/30/22 Range/Units 21:45 00:12 WBC (3.8-10.6) k/uL RBC (4.30-5.90) m/uL Hgb (13.0-17.5) gm/dL Hct (39.0-53.0) % MCV (80.0-100.0) fL Neutrophils # (1.3-7.7) k/uL Lymphocytes # (1.0-4.8) k/uL ABG pH 7.17 L* (7.35-7.45) ABG pCO2 63 H (35-45) mmHg ABG pO2 71 L (83-108) mmHg ABG Total CO2 25 H (19-24) mmol/L ABG O2 Saturation 87.0 L (94-97) % Sodium (137-145) mmol/L Carbon Dioxide (22-30) mmol/L BUN (9-20) mg/dL Creatinine (0.66-1.25) mg/dL Glucose (74-99) mg/dL POC Glucose (mg/dL) 231 H (70-110) mg/dL Troponin I (0.000-0.034) ng/mL Assessment and Plan Assessment: flash pulmonary edema acute hypoxic hypercapnic respiratory failure uncontrolled hypertension respiratory acidosis diastolic CHF COPD plan intubated sedated CXR showed pulmonary edema continue with vent care ICU care nitro drip weaning trial in AM recent echo showed preserved EF HF continue with propofol wynn cath showing clear urine ICU consult cardio consult CKD stable monitor renal function avoid nephro toxic meds DVT PPC heparin sc tid full code
[2022-07-30 05:33] LABS: ABG HCO3 23 mmol/L (21-25); ABG PCO2 39 mmHg (35-45); ABG PH 7.38 (7.35-7.45); ABG PO2 295 mmHg (83-108); ABG TCO2 24 mmol/L (19-24); Allen Test Performed? Yes
[2022-07-30 07:10] LABS: Glucose,Whole Blood 157 mg/dL (70-110)
[2022-07-30 07:28] LABS: Basophils % (A) 0 %; Eosinophils % (A) 0 %; Hypochromasia Moderate; Lymphocytes # (A) 0.2 k/uL (1.0-4.8); Lymphocytes % (A) 2 %; MCH 32.6 pg (25.0-35.0); MCHC 30.7 g/dL (31.0-37.0); MCV 106.4 fL (80.0-100.0); Macrocytosis Moderate; Mean Platelet Volume 8.2; Monocytes # (A) 0.2 k/uL (0-1.0); Monocytes % (A) 2 %; Neutrophils # (A) 7.6 k/uL (1.3-7.7); Neutrophils % (A) 94 %; Platelet Count 226 k/uL (150-450); RBC 2.64 m/uL (4.30-5.90); RDW 13.9 % (11.5-15.5)
[2022-07-30 07:29] LABS: Albumin 3.3 g/dL (3.5-5.0); Calcium 7.6 mg/dL (8.4-10.2); Potassium 4.3 mmol/L (3.5-5.1); Total Bilirubin 0.3 mg/dL (0.2-1.3); Total Protein 5.2 g/dL (6.3-8.2)
[2022-07-30 07:38] LABS: HGB 8.6 gm/dL (13.0-17.5)
[2022-07-30] MEDS: IPRATROPIUM-ALBUTEROL 3 ML NEB INHALATION PRN ×2 (07:48→16:36)
--- NOTE | 2022-07-30 08:04 | P.CRDCN ---
History of Present Illness Consult date: 07/30/22 History of present illness: History of Present Illness: The patient presented to the hospital with symptoms of progressive unresponsiveness and acute dyspnea that occurred after pumping gas and inhaling fumes. He was intubated. He has a known history of ventricular tachycardia arrest in 2019, mild nonobstructive coronary artery disease and a prior history of nonischemic cardiomyopathy that improved. His most recent echo in May showed a preserved systolic function. He has a history of chronic disease, hypertension, hyperlipidemia, chronic tobacco use and a prior history of right hemicolectomy and bladder cancer. He has been followed by Dr. Cardoso in the past. He has been on amiodarone in the past that has been stopped for possible lung injury. He has a history of chronic diastolic heart failure. He has a history of peripheral vascular disease. Since admission he's been in sinus mechanism, there is no evidence of malignant arrhythmia. His blood pressure and heart rate are stable. He was hypertensive initially and has been started on IV nitroglyce rin. His urinary output has been stable. His EKG showed sinus mechanism with no acute ST segment changes. His chest x-ray shows patchy bilateral infiltrate, much worse since earlier this month. In early July he had a computed tomography scan of the chest that showed progression of interstitial lung disease with subpleural reticular and ground glass capacities. His labs showed a hemoglobin of 8.6, his initial pH was 7.17, creatinine of 2.35 the BUN of 42. His NT proBNP was 101,000, his troponin was 0.086. He has a known history of chronic kidney disease in the same range. He had prior significant elevation of his NT proBNP Medications: Hydralazine 100 mg 3 times a day, Coreg 25 mg twice a day, Cozaar 50 mg daily, Lasix 40 mg twice a day, Lipitor 20 mg daily, aspirin once a day, Flomax, Pepcid, Ventolin Review of Systems: Could not be obtained the patient is intubated Physical Examination: 72-year-old male intubated and sedated ,Blood pressure low 100 to high 90s, Heart rate 70s Head: Normocephalic. Eyes: Sclerae nonicteric. Neck: Good carotid upstroke, no bruit, no jugular venous distention. Lungs: Clear to auscultation anteriorly, no wheezes. Heart: Regular rate and rhythm, S1-S2, no S3, no rub. No murmur. Abdomen: Soft , positive bowel sounds no organomegaly. Extremities: No edema, intact distal pulses. Labs: This morning hemoglobin 8.6, pH 7.3, pCO2 39, pO2 295. Potassium 4.3, BUN 44, creatinine 2.52. Troponin 0.165 EKG: Sinus mechanism rate of 108 evidence of LVH with nonspecific ST-T wave changes and poor R-wave progression Impression: 1. Respiratory failure with severe acidosis. His chest x-ray is suggestive of possible infection or rapid Lung injury, could be related to the prior history with amiodarone. He also has a history of CHF with preserved systolic function 2. Troponin elevation representing type II cardiac event no evidence of acute coronary syndrome 3. Prior history of cardiomyopathy, improved. Echocardiogram in May of this year showed a normal systolic function 4. Prior history of VT arrest in 2019 with no recurrence 5. Mild nonobstructive coronary disease 6. History of hypertension 7. Chronic kidney disease 8. History of hyperlipidemia 9. History of COPD 10. History of bladder cancer Plan: 1. Continue IV diuresis 2. Stop IV nitroglycerin 3. The patient may benefit from steroids in view of his chest x-ray 4. No need to repeat the echocardiogram at this time 5. Follow renal functions 6. Prognosis is guarded, thank you for this consult we will follow with you. Past Medical History Past Medical History: Cancer, Heart Failure, COPD, GERD/Reflux, Hyperlipidemia, Hypertension, Prostate Disorder, Renal Disease Additional Past Medical History / Comment(s): Pt recently admitted to [facility] on 06/11/22 with acute on chronic CHF, hyperkalemia. Other hx: Recent bladder cancer/completed oral chemo and radiation, past colon cancer with resection, nonischemic cardiomyopathy, 2019 cardiac arrent/Vtach, CKD stage IV, BPH, hemorrhoids, anemia, RLS, chronic low back pain History of Any Multi-Drug Resistant Organisms: None Reported Past Surgical History: Appendectomy, Bowel Resection, Heart Catheterization, Orthopedic Surgery Additional Past Surgical History / Comment(s): R hemicolectomy, colonoscopies, nasal surgery to repair ulcer, R knee arthroscopic surgeries (ACL repair and meniscus repair), L heel fusion d/t trauma, L arm bicep surgery. Past Anesthesia/Blood Transfusion Reactions: No Reported Reaction Past Psychological History: Anxiety Smoking Status: Current every day smoker Past Alcohol Use History: None Reported Past Drug Use History: None Reported - Past Family History Mother Family Medical History: Cancer Additional Family Medical History / Comment(s): BREAST Sister(s) Family Medical History: Deep Vein Thrombosis (DVT) Additional Family Medical History / Comment(s): 1 sister had leukemia, and another sister had non hodgkins. Father Family Medical History: COPD Additional Family Medical History / Comment(s): FROM CARDIAC ARREST Medications and Allergies Home Medications Medication Instructions Recorded Confirmed Type Tamsulosin [Flomax] 0.4 mg PO DAILY 06/04/16 07/29/22 History Famotidine [Pepcid] 20 mg PO BID 06/08/20 07/29/22 History Multivitamins, Thera [Multivitamin 1 tab PO DAILY 06/08/20 07/29/22 History (formulary)] Atorvastatin Calcium [Lipitor] 20 mg PO HS 06/24/21 07/29/22 History Losartan [Cozaar] 50 mg PO DAILY 06/24/21 07/29/22 History Fluticasone Propion/Salmeterol 1 puff INHALATION RT-BID 08/27/21 07/29/22 History [Wixela 250-50 Inhub] Melatonin 5 mg PO HS 05/31/22 07/29/22 History Mirtazapine [Remeron] 30 mg PO HS 05/31/22 07/29/22 History Nitroglycerin Sl Tabs 0.3mg 0.3 mg SL Q5M PRN 05/31/22 07/29/22 History QUEtiapine [SEROquel] 150 mg PO HS 05/31/22 07/29/22 History hydrALAZINE HCL [Apresoline] 100 mg PO TID 05/31/22 07/29/22 History Acetaminophen Tab [Tylenol] 650 mg PO Q6HR PRN tab 06/05/22 07/29/22 Rx HYDROcodone/APAP 10-325MG [[place] 1 tab PO Q8H PRN #9 tab 06/05/22 07/29/22 Rx 10-325] Aspirin 81 mg PO DAILY #30 tab 06/12/22 07/29/22 Rx Furosemide [Lasix] 40 mg PO BID@0900,1600 #60 tab 06/12/22 07/29/22 Rx Potassium Chloride ER [K-Dur 20] 20 meq PO DAILY #14 tab 06/12/22 07/29/22 Rx carvediloL [Coreg*] 25 mg PO BID-W/MEALS #60 tab 06/12/22 07/29/22 Rx Albuterol Inhaler [Ventolin Hfa 1 - 2 puff INHALATION RT-Q6H PRN 06/26/22 07/29/22 Rx Inhaler] 30 Days #1 dispenser Isosorbide Mononitrate ER [Imdur] 30 mg PO DAILY 30 Days #30 tab 07/04/22 07/29/22 Rx Cyanocobalamin [Vitamin B-12] 1,000 mcg PO DAILY #30 tab 07/12/22 07/29/22 Rx Allergies Allergy/AdvReac Type Severity Reaction Status Date / Time lisinopril Allergy Angioedema., Verified 07/29/22 19:32 swollen testicle, rash Physical Exam Vitals: Vital Signs Temp Pulse Resp BP Pulse Ox FiO2 07/30/22 07:43 40 07/30/22 07:00 71 18 88/56 99 07/30/22 06:50 71 18 88/56 98 07/30/22 06:40 73 20 96/58 100 07/30/22 06:30 72 14 99/61 98 07/30/22 06:20 71 16 99/61 97 07/30/22 06:10 70 18 103/62 98 07/30/22 06:00 71 18 94/67 98 07/30/22 05:50 73 18 94/67 96 07/30/22 05:40 75 16 116/71 99 07/30/22 05:30 74 12 108/66 100 07/30/22 05:20 76 18 108/66 99 07/30/22 05:10 76 15 103/68 99 07/30/22 05:00 77 16 104/66 99 07/30/22 04:50 77 18 104/66 99 07/30/22 04:40 77 18 103/65 99 07/30/22 04:30 77 16 104/66 99 07/30/22 04:20 84 16 104/66 99 07/30/22 04:10 78 18 104/68 99 07/30/22 04:00 97.6 F 78 16 107/67 100 80 07/30/22 03:50 79 15 107/67 99 07/30/22 03:40 78 15 107/68 99 07/30/22 03:30 79 16 106/71 100 07/30/22 03:25 80 07/30/22 03:20 79 16 106/71 100 07/30/22 03:10 80 18 108/68 100 07/30/22 03:00 80 18 106/70 100 07/30/22 02:50 81 18 106/70 100 07/30/22 02:40 80 13 109/71 100 07/30/22 02:30 81 16 113/72 100 07/30/22 02:20 81 18 113/72 100 07/30/22 02:10 82 15 111/74 100 07/30/22 02:00 83 14 115/76 100 07/30/22 01:50 83 15 115/76 100 07/30/22 01:40 84 15 120/77 100 07/30/22 01:30 86 16 123/79 100 07/30/22 01:20 86 15 123/79 100 07/30/22 01:15 80 07/30/22 01:10 86 15 126/83 100 07/30/22 01:00 87 16 132/84 100 07/30/22 00:50 89 19 132/84 100 07/30/22 00:40 87 18 123/80 100 07/30/22 00:30 89 18 116/74 97 07/30/22 00:20 91 18 94/84 95 07/30/22 00:15 90 16 124/79 91 L 100 07/30/22 00:00 80 07/29/22 23:40 101 H 24 143/88 98 07/29/22 23:30 102 H 24 148/86 97 07/29/22 23:14 105 H 24 146/84 97 07/29/22 23:07 106 H 24 178/98 96 07/29/22 23:00 107 H 24 181/100 96 07/29/22 22:54 107 H 24 178/100 96 07/29/22 22:46 111 H 24 180/101 96 07/29/22 22:42 112 H 24 168/99 96 07/29/22 22:37 114 H 24 143/89 95 07/29/22 22:35 114 H 24 187/104 95 07/29/22 22:23 116 H 22 192/105 94 L 07/29/22 22:00 120 H 22 209/116 92 L 07/29/22 21:48 100 07/29/22 21:45 100 07/29/22 21:20 230/141 07/29/22 21:10 124 H 41 H 230/141 07/29/22 21:00 128 H 34 H 233/135 89 L 07/29/22 20:50 128 H 21 233/135 89 L 07/29/22 20:40 122 H 23 93 L 07/29/22 20:31 119 H 24 233/135 94 L 60 07/29/22 20:30 112 H 17 94 L 07/29/22 20:29 114 H 07/29/22 20:20 122 H 19 88 L 07/29/22 20:10 112 H 28 H 92 L 07/29/22 20:00 97.6 F 109 H 30 H 92 L 100 07/29/22 19:56 106 H 07/29/22 19:50 105 H 18 91 L 07/29/22 19:48 106 H 07/29/22 19:40 112 H 36 H 86 L 07/29/22 19:38 75 L 07/29/22 19:29 98.3 F 111 H 34 H 208/96 78 L Intake and Output 07/29/22 07/30/22 07/30/22 22:59 06:59 14:59 Intake Total 7.309 55.017 132.424 Output Total 1045 70 Balance 7.309 -989.983 62.424 Intake: Intake, IV Titration 7.309 55.017 132.424 Amount Nitroglycerin-D5w Pmx 50 0.675 8.375 32.475 mg In Dextrose/Water 1 250ml.bag @ 5 MCG/MIN 1.5 mls/hr IV .Q24H [facility] Rx#: [id number] propofoL 1,000 mg In 6.634 46.642 99.949 Empty Bag 1 bag @ 5 MCG/ KG/MIN 1.769 mls/hr IV . Q24H [facility] Rx#:[id number] Output: Urine 1045 70 Other: Voiding Method Indwelling Catheter Weight 58.967 kg 60.1 kg Results 07/30/22 06:45 07/30/22 06:45 Cardiac Enzymes 07/29/22 07/29/22 07/30/22 Range/Units 20:09 20:09 03:18 AST 53 (17-59) U/L Troponin I 0.086 H* 0.131 H* (0.000-0.034) ng/mL 07/30/22 Range/Units 06:45 AST 26 (17-59) U/L Troponin I (0.000-0.034) ng/mL Coagulation 07/29/22 Range/Units 20:09 PT 10.7 (9.0-12.0) sec APTT 25.0 (22.0-30.0) sec CBC 07/29/22 07/30/22 Range/Units 20:09 06:45 WBC 11.3 H 8.0 (3.8-10.6) k/uL RBC 3.11 L 2.64 L (4.30-5.90) m/uL Hgb 10.4 L 8.6 L D (13.0-17.5) gm/dL Hct 33.4 L 28.0 L (39.0-53.0) % Plt Count 297 226 (150-450) k/uL Comprehensive Metabolic Panel 07/29/22 07/30/22 Range/Units 20:09 06:45 Sodium 136 L 139 (137-145) mmol/L Potassium 5.0 4.3 (3.5-5.1) mmol/L Chloride 104 108 H (98-107) mmol/L Carbon Dioxide 18 L 21 L (22-30) mmol/L BUN 42 H 44 H (9-20) mg/dL Creatinine 2.35 H 2.52 H (0.66-1.25) mg/dL Glucose 111 H 140 H (74-99) mg/dL Calcium 8.8 7.6 L (8.4-10.2) mg/dL AST 53 26 (17-59) U/L ALT 27 21 (4-49) U/L Alkaline Phosphatase 53 61 (38-126) U/L Total Protein 6.9 5.2 L (6.3-8.2) g/dL Albumin 4.3 3.3 L (3.5-5.0) g/dL Current Medications Generic Name Dose Route Start Last Admin Trade Name Freq PRN Reason Stop Dose Admin Albuterol/Ipratropium 3 ml 07/29/22 22:56 Ipratropium-Albuterol 3 Ml Neb INHALATION RT-Q4H PRN Shortness Of Breath Or Wheezing Chlorhexidine Gluconate 15 ml 07/30/22 09:00 Chlorhexidine Gluconate 15 Ml Cup MUCOUS MEM BID [facility] Furosemide 60 mg 07/30/22 09:00 Furosemide 10 Mg/Ml 10 Ml Vial IV BID [facility] Propofol 1,000 mg/ IV Solution 100 mls @ 1.769 mls/hr 07/29/22 22:00 07/30/22 07:32 IV 50 mcg/kg/min .Q24H [facility] 17.69 mls/hr Administration Protocol 5 MCG/KG/MIN Nitroglycerin/Dextrose 50 mg/ 250 mls @ 1.5 mls/hr 07/29/22 22:23 07/30/22 07:33 IV Solution IV 07/30/22 22:22 10 mcg/min .Q24H [facility] 3 mls/hr Titration Protocol 5 MCG/MIN Naloxone HCl 0.2 mg 07/29/22 22:53 Naloxone 0.4 Mg/Ml 1 Ml Vial IV Q2M PRN Opioid Reversal Intake and Output 07/29/22 07/30/22 07/30/22 22:59 06:59 14:59 Intake Total 7.309 55.017 132.424 Output Total 1045 70 Balance 7.309 -989.983 62.424 Intake: Intake, IV Titration 7.309 55.017 132.424 Amount Nitroglycerin-D5w Pmx 50 0.675 8.375 32.475 mg In Dextrose/Water 1 250ml.bag @ 5 MCG/MIN 1.5 mls/hr IV .Q24H [facility] Rx#: [id number] propofoL 1,000 mg In 6.634 46.642 99.949 Empty Bag 1 bag @ 5 MCG/ KG/MIN 1.769 mls/hr IV . Q24H [facility] Rx#:[id number] Output: Urine 1045 70 Other: Voiding Method Indwelling Catheter Weight 58.967 kg 60.1 kg 07/30/22 06:45 07/30/22 06:45
[2022-07-30] MEDS ORDERED: ACETAMINOPHEN TAB 325 MG TAB PO PRN (08:59)
--- NOTE | 2022-07-30 08:59 | P.CNPUL ---
History of Present Illness Consult date: 07/30/22 Reason for consult: dyspnea History of present illness: This is a 72-year-old male patient, who was discharged from the hospital approximately 3 weeks ago after being treated for shortness of breath and was attributed to a combination of COPD and CHF and ILD was also suspected during this last admission. The patient was discharged to be readmitted yesterday because of acute shortness of breath. The patient was at a gas station and he was pumping gas and he felt short of breath probably while inhaling the gas fumes. He presented to the emergency department he was hypoxic with a pulse ox of 70% on room air oxygen. He was even bronchodilators and steroids and diuretics in the emergency without any improvement. He was briefly placed on a BiPAP and following that he. All those measures and the patient was intubated and placed on a mechanical ventilator. Note that his blood pressure was considerably elevated and the patient was having hypertensive emergency with a BP of 233/135. Initial chest x-ray showed diffuse bilateral pulmonary infiltrates reticulonodular appearance. His troponin was 0.08. His proBNP level was 100,000. COVID 19 testing was negative. Influenza screen was negative. The rest of the blood work showed chronic stage IV kidney disease with a creatinine of 2.35 and a BUN of 42. Serum bicarb was at 18. Sodium level was at 136. The white cell count was 11.3 with hemoglobin 10.4 and a platelet count of 297. The EKG showed no acute abnormalities. His cardiac rhythm was sinus. He did have Q waves over the anterior leads and voltage criteria of LVH. No acute ST segment elevations or depressions. Post intubation, the patient was placed on propofol improvement was running at 50 mcg/kg per minute. His blood pressure is essentially normalized and the patient was given nitroglycerin drip which was ultimately titrated off and discontinued. He is on a mechanical ventilator. His oxidation is improved. He is currently on assist control mode at the rate of 18 with a tidal volume of 500 and FiO2 of 40% with a PEEP of 10. I dropped his PEEP down to 5 accordingly. His most recent blood gas while being on a 80% FiO2 showed a pH of 7.38 with a pCO2 of 39 and pO2 of 295. Troponins peaked at 0.16. No fever. No leukocytosis. The patient has been off amiodarone for almost 4 weeks. Review of Systems ROS unobtainable: due to endotracheal tube, due to mental status Past Medical History Past Medical History: Cancer, Heart Failure, COPD, GERD/Reflux, Hyperlipidemia, Hypertension, Prostate Disorder, Renal Disease Additional Past Medical History / Comment(s): Pt recently admitted to [facility] on 06/11/22 with acute on chronic CHF, hyperkalemia. Other hx: Recent bladder cancer/completed oral chemo and radiation, past colon cancer with resection, nonischemic cardiomyopathy, 2020 cardiac arrent/Vtach, CKD stage IV, BPH, hemorrhoids, anemia, RLS, chronic low back pain History of Any Multi-Drug Resistant Organisms: None Reported Past Surgical History: Appendectomy, Bowel Resection, Heart Catheterization, Orthopedic Surgery Additional Past Surgical History / Comment(s): R hemicolectomy, colonoscopies, nasal surgery to repair ulcer, R knee arthroscopic surgeries (ACL repair and meniscus repair), L heel fusion d/t trauma, L arm bicep surgery. Past Anesthesia/Blood Transfusion Reactions: No Reported Reaction Past Psychological History: Anxiety Smoking Status: Current every day smoker Past Alcohol Use History: None Reported Past Drug Use History: None Reported - Past Family History Mother Family Medical History: Cancer Additional Family Medical History / Comment(s): BREAST Sister(s) Family Medical History: Deep Vein Thrombosis (DVT) Additional Family Medical History / Comment(s): 1 sister had leukemia, and another sister had non hodgkins. Father Family Medical History: COPD Additional Family Medical History / Comment(s): FROM CARDIAC ARREST Medications and Allergies Home Medications Medication Instructions Recorded Confirmed Type Tamsulosin [Flomax] 0.4 mg PO DAILY 06/04/16 07/29/22 History Famotidine [Pepcid] 20 mg PO BID 06/08/20 07/29/22 History Multivitamins, Thera [Multivitamin 1 tab PO DAILY 06/08/20 07/29/22 History (formulary)] Atorvastatin Calcium [Lipitor] 20 mg PO HS 06/24/21 07/29/22 History Losartan [Cozaar] 50 mg PO DAILY 06/24/21 07/29/22 History Fluticasone Propion/Salmeterol 1 puff INHALATION RT-BID 08/27/21 07/29/22 History [Wixela 250-50 Inhub] Melatonin 5 mg PO HS 05/31/22 07/29/22 History Mirtazapine [Remeron] 30 mg PO HS 05/31/22 07/29/22 History Nitroglycerin Sl Tabs 0.3mg 0.3 mg SL Q5M PRN 05/31/22 07/29/22 History QUEtiapine [SEROquel] 150 mg PO HS 05/31/22 07/29/22 History hydrALAZINE HCL [Apresoline] 100 mg PO TID 05/31/22 07/29/22 History Acetaminophen Tab [Tylenol] 650 mg PO Q6HR PRN tab 06/05/22 07/29/22 Rx HYDROcodone/APAP 10-325MG [[place] 1 tab PO Q8H PRN #9 tab 06/05/22 07/29/22 Rx 10-325] Aspirin 81 mg PO DAILY #30 tab 06/12/22 07/29/22 Rx Furosemide [Lasix] 40 mg PO BID@0900,1600 #60 tab 06/12/22 07/29/22 Rx Potassium Chloride ER [K-Dur 20] 20 meq PO DAILY #14 tab 06/12/22 07/29/22 Rx carvediloL [Coreg*] 25 mg PO BID-W/MEALS #60 tab 06/12/22 07/29/22 Rx Albuterol Inhaler [Ventolin Hfa 1 - 2 puff INHALATION RT-Q6H PRN 06/26/22 07/29/22 Rx Inhaler] 30 Days #1 dispenser Isosorbide Mononitrate ER [Imdur] 30 mg PO DAILY 30 Days #30 tab 07/04/22 07/29/22 Rx Cyanocobalamin [Vitamin B-12] 1,000 mcg PO DAILY #30 tab 07/12/22 07/29/22 Rx Allergies Allergy/AdvReac Type Severity Reaction Status Date / Time lisinopril Allergy Angioedema., Verified 07/29/22 19:32 swollen testicle, rash Physical Exam Vitals: Vital Signs Temp Pulse Resp BP Pulse Ox FiO2 07/30/22 07:59 72 07/30/22 07:48 75 07/30/22 07:43 40 07/30/22 07:00 71 18 88/56 99 07/30/22 06:50 71 18 88/56 98 07/30/22 06:40 73 20 96/58 100 07/30/22 06:30 72 14 99/61 98 09//22 06:20 71 16 99/61 97 07/30/22 06:10 70 18 103/62 98 07/30/22 06:00 71 18 94/67 98 07/30/22 05:50 73 18 94/67 96 07/30/22 05:40 75 16 116/71 99 07/30/22 05:30 74 12 108/66 100 0922 05:20 76 18 108/66 99 07/30/22 05:10 76 15 103/68 99 07/30/22 05:00 77 16 104/66 99 07/30/ 04:50 77 18 104/66 99 07/30/22 04:40 77 18 103/65 99 07/30/22 04:30 77 16 104/66 99 07/30/ 04:20 84 16 104/66 99 07/30/ 04:10 78 18 104/68 99 07/30/22 04:00 97.6 F 78 16 107/67 100 80 07/30/22 03:50 79 15 107/67 99 07/30/22 03:40 78 15 107/68 99 07/30/ 03:30 79 16 106/71 100 07/30/22 03:25 80 09 03:20 79 16 106/71 100 07/30/22 03:10 80 18 108/68 100 07/30/22 03:00 80 18 106/70 100 07/30/ 02:50 81 18 106/70 100 07/30/22 02:40 80 13 109/71 100 07/30/22 02:30 81 16 113/72 100 09/22 02:20 81 18 113/72 100 07/30/ 02:10 82 15 111/74 100 09/22 02:00 83 14 115/76 100 09/22 01:50 83 15 115/76 100 09/22 01:40 84 15 120/77 100 09/22 01:30 86 16 123/79 100 07/30/22 01:20 86 15 123/79 100 09/22 01:15 80 09/22 01:10 86 15 126/83 100 07/30/22 01:00 87 16 132/84 100 09 00:50 89 19 132/84 100 07/30/22 00:40 87 18 123/80 100 07/30/22 00:30 89 18 116/74 97 07/30/22 00:20 91 18 94/84 95 07/30/22 00:15 90 16 124/79 91 L 100 07/30/22 00:00 80 07/29/22 23:40 101 H 24 143/88 98 07/29/22 23:30 102 H 24 148/86 97 07/29/22 23:14 105 H 24 146/84 97 07/29/22 23:07 106 H 24 178/98 96 07/29/22 23:00 107 H 24 181/100 96 07/29/22 22:54 107 H 24 178/100 96 07/29/22 22:46 111 H 24 180/101 96 07/29/22 22:42 112 H 24 168/99 96 07/29/22 22:37 114 H 24 143/89 95 07/29/22 22:35 114 H 24 187/104 95 07/29/22 22:23 116 H 22 192/105 94 L 07/29/22 22:00 120 H 22 209/116 92 L 07/29/22 21:48 100 07/29/22 21:45 100 07/29/22 21:20 230/141 07/29/22 21:10 124 H 41 H 230/141 07/29/22 21:00 128 H 34 H 233/135 89 L 07/29/22 20:50 128 H 21 233/135 89 L 07/29/22 20:40 122 H 23 93 L 07/29/22 20:31 119 H 24 233/135 94 L 60 07/29/22 20:30 112 H 17 94 L 07/29/22 20:29 114 H 07/29/22 20:20 122 H 19 88 L 07/29/22 20:10 112 H 28 H 92 L 07/29/22 20:00 97.6 F 109 H 30 H 92 L 100 07/29/22 19:56 106 H 07/29/22 19:50 105 H 18 91 L 07/29/22 19:48 106 H 07/29/22 19:40 112 H 36 H 86 L 07/29/22 19:38 75 L 07/29/22 19:29 98.3 F 111 H 34 H 208/96 78 L Intake and Output 07/29/22 07/30/22 07/30/22 22:59 06:59 14:59 Intake Total 7.309 55.017 132.424 Output Total 1045 70 Balance 7.309 -989.983 62.424 Intake: Intake, IV Titration 7.309 55.017 132.424 Amount Nitroglycerin-D5w Pmx 50 0.675 8.375 32.475 mg In Dextrose/Water 1 250ml.bag @ 5 MCG/MIN 1.5 mls/hr IV .Q24H [facility] Rx#: [id number] propofoL 1,000 mg In 6.634 46.642 99.949 Empty Bag 1 bag @ 5 MCG/ KG/MIN 1.769 mls/hr IV . Q24H [facility] Rx#:[id number] Output: Urine 1045 70 Other: Voiding Method Indwelling Catheter Weight 58.967 kg 60.1 kg No acute distress, patient is currently sedated on propofol and the patient has an orogastric and orotracheal tube and both of them are in good location. His strength is a mechanical ventilator. No agitation. He withdraws to painful stimulation and is easily arousable. Head exam was generally normal. There was no scleral icterus or corneal arcus. Mucous membranes were moist. HEENT examination is grossly unremarkable. Neck supple. Full range of motion. No adenopathy thyromegaly or neck vein distention. Cardiovascular examination reveals regular rhythm rate. S1-S2 normal. No S3 or S4. No discernible murmur noted. Lungs reveal scattered bilateral rhonchi and wheezes. There is also crackles at the bases. Breath sounds equal bilaterally. Abdominal exam revealed normal bowel sounds. The abdomen was soft, non-tender, and without masses, organomegaly, or appreciable enlargement of the abdominal aorta. Extremities are intact. No cyanosis clubbing or edema. Skin is without rash or lesion. Neurologically, the patient is sedated Results - Laboratory Findings CBC and BMP: 07/30/22 06:45 07/30/22 06:45 ABG ABG pH 7.38 (7.35-7.45) 07/30/22 05:01 ABG pCO2 39 mmHg (35-45) 07/30/22 05:01 ABG pO2 295 mmHg (83-108) H 07/30/22 05:01 ABG O2 Saturation 100.0 % (94-97) H 07/30/22 05:01 PT/INR, D-dimer PT 10.7 sec (9.0-12.0) 07/29/22 20:09 INR 1.0 (<1.2) 07/29/22 20:09 Abnormal lab findings: Abnormal Labs 07/29/22 07/29/22 07/29/22 20:09 20:09 20:09 WBC 11.3 H RBC 3.11 L Hgb 10.4 L Hct 33.4 L MCV 107.3 H D MCHC Neutrophils # 9.8 H Lymphocytes # 0.6 L ABG pH ABG pCO2 ABG pO2 ABG Total CO2 ABG O2 Saturation Sodium 136 L Chloride Carbon Dioxide 18 L BUN 42 H Creatinine 2.35 H Glucose 111 H POC Glucose (mg/dL) Calcium Troponin I 0.086 H* Total Protein Albumin 07/29/22 07/30/22 07/30/22 21:45 00:12 03:18 WBC RBC Hgb Hct MCV MCHC Neutrophils # Lymphocytes # ABG pH 7.17 L* ABG pCO2 63 H ABG pO2 71 L ABG Total CO2 25 H ABG O2 Saturation 87.0 L Sodium Chloride Carbon Dioxide BUN Creatinine Glucose POC Glucose (mg/dL) 231 H Calcium Troponin I 0.131 H* Total Protein Albumin 07/30/22 07/30/22 07/30/22 05:01 06:45 06:45 WBC RBC 2.64 L Hgb 8.6 L D Hct 28.0 L MCV 106.4 H MCHC 30.7 L Neutrophils # Lymphocytes # 0.2 L ABG pH ABG pCO2 ABG pO2 295 H ABG Total CO2 ABG O2 Saturation 100.0 H Sodium Chloride 108 H Carbon Dioxide 21 L BUN 44 H Creatinine 2.52 H Glucose 140 H POC Glucose (mg/dL) Calcium 7.6 L Troponin I Total Protein 5.2 L Albumin 3.3 L 07/30/22 07/30/22 06:45 07:08 WBC RBC Hgb Hct MCV MCHC Neutrophils # Lymphocytes # ABG pH ABG pCO2 ABG pO2 ABG Total CO2 ABG O2 Saturation Sodium Chloride Carbon Dioxide BUN Creatinine Glucose POC Glucose (mg/dL) 157 H Calcium Troponin I 0.165 H* Total Protein Albumin - Diagnostic Findings Chest x-ray: image reviewed Assessment and Plan Plan: Acute hypoxic respiratory failure requiring intubation mechanical ventilation. The patient is currently intubated, sedated, hemodynamically stable. Rule out acute flash pulmonary edema secondary to hypertensive emergency. The patient's blood pressure was considerably elevated at a time of admission and his blood pressure is normalized. At the same time, the patient was given nitroglycerin drip on diuretics. He has produced excellent urine output in the order of 80 mL an hour and there has been interval improvement in his oxygenation and a chest x-ray findings. This obviously supports the possibility of flash pulmonary edema secondary to hypertensive emergency. Also, rule out acute interstitial pneumonia. Acute interstitial lung disease from drugs cannot be completely ruled out as the patient did have some mild background ILD on previous CAT scans of the chest. Noted the patient was taken amiodarone at a higher dose and this was discontinued approximately 3-4 weeks ago. Chest x-ray still showing diffuse reticular nodular pulmonary infiltrates. Nonocclusive coronary artery disease, limited troponin leak COPD Previous history of nonischemic cardiomyopathy with subsequent normalization of the ejection fraction Multiple recent admissions to this hospital, for shortness of breath, thought to be related to both COPD and CHF. Previous history of smoking History of colon cancer, with previous resection, 2017 History of bladder cancer, status post chemoradiation. History of hypertension. History of hyperlipidemia. History of gastroesophageal reflux disease. History of cardiac arrest, 2019. History of stage IV chronic kidney disease. History of BPH. History of anemia. History of restless leg syndrome. Plan Continue ventilator support and drop the PEEP down to 5 Continue the patient on propofol infusion Continue Lasix 60 mg IV every 12 hours Monitor the chest x-ray findings and rapid improvement in her chest x-ray was support the diagnosis of flash pulmonary edema rather than ILD On the hold off on giving the patient any steroids at this point. No need for antibiotics. Restart aspirin, 81 mg by mouth daily, Lipitor 20 mg by mouth daily, Flomax 0.4 mg by mouth daily. We'll also restart Coreg 25 mg by mouth twice a day. Rest of the cardiac medication will be gradually introduced We'll continue to follow. Cardiology consultation. We'll make further recommendations based on his progress.
[2022-07-30] MEDS ORDERED: FAMOTIDINE 20 MG TAB PO SCH (09:00)
--- NOTE | 2022-07-30 09:25 | XR ---
EXAMINATION TYPE: XR chest 1V portable DATE OF EXAM: 07/30/2022 6:13 AM COMPARISON: Chest radiographs from 07/29/2022. TECHNIQUE: XR chest 1V portable Frontal view of the chest. CLINICAL INDICATION:Male, 72 years old with history of Tube placement; FINDINGS: Lungs/Pleura: No pneumothorax or pleural effusion. Interval improvement in bilateral multifocal diffu se airspace opacities in reticulonodular interstitial opacities. Pulmonary vascularity: Unremarkable. Heart/mediastinum: Cardiomediastinal silhouette is unremarkable. Musculoskeletal: No acute osseous pathology. Other findings: None Lines/Tubes: Endotracheal tube with distal tip 6.1 cm above the prudence Nasogastric tube with its distal tip and side-port projecting under the diaphragm. IMPRESSION: 1. Interval improvement in diffuse multifocal airspace disease. 2. Stable support lines and tubes.
[2022-07-30] MEDS: TAMSULOSIN 0.4 MG CAP.ER.24H PO SCH (09:27)
[2022-07-30] MEDS: CHLORHEXIDINE GLUCONATE 15 ML CUP MUCOUS MEM SCH ×2 (09:27→20:32)
[2022-07-30] MEDS: ASPIRIN 81 MG PO SCH (09:27)
[2022-07-30] MEDS: carvediloL 12.5 MG TAB PO SCH ×2 (09:27→17:20)
[2022-07-30] MEDS: FUROSEMIDE 10 MG/ML 10 ML VIAL IV SCH ×2 (09:27→20:31)
[2022-07-30 13:17] LABS: Glucose,Whole Blood 134 mg/dL (70-110)
--- NOTE | 2022-07-30 14:35 | P.PN ---
Subjective Progress Note Date: 07/30/22 Patient remains intubated and sedated. I discussed the case with the ICU nurse. Objective - Vital Signs Vital signs: Vital Signs Temp 97.9 F 07/30/22 08:30 Pulse 66 07/30/22 13:30 Resp 15 07/30/22 13:30 BP 128/62 07/30/22 13:30 Pulse Ox 100 07/30/22 13:30 FiO2 40 07/30/22 12:00 Intake & Output 07/29/22 07/30/22 07/30/22 18:59 06:59 18:59 Intake Total 62.326 205.838 Output Total 1045 575 Balance -982.674 -369.162 Weight 60.1 kg Intake: Intake, IV Titration 62.326 205.838 Amount Nitroglycerin-D5w Pmx 50 9.050 32.475 mg In Dextrose/Water 1 250ml.bag @ 5 MCG/MIN 1.5 mls/hr IV .Q24H [facility] Rx#: [id number] propofoL 1,000 mg In 53.276 173.363 Empty Bag 1 bag @ 5 MCG/ KG/MIN 1.769 mls/hr IV . Q24H [facility] Rx#:[id number] Output: Urine 1045 575 Other: Voiding Method Indwelling Catheter Indwelling Catheter - Exam General examination - intubated and sedated Heart - + S1S2 no murmurs Lungs - diminished but does bilaterally Abdomen soft NT ND +ve BS Extremities - No edema [employer] - unable to assess Psych - unable to assess - Labs CBC & Chem 7: 07/30/22 06:45 07/30/22 06:45 Labs: Abnormal Lab Results - Last 24 Hours (Table) 07/29/22 07/29/22 07/29/22 Range/Units 20:09 20:09 20:09 WBC 11.3 H (3.8-10.6) k/uL RBC 3.11 L (4.30-5.90) m/uL Hgb 10.4 L (13.0-17.5) gm/dL Hct 33.4 L (39.0-53.0) % MCV 107.3 H D (80.0-100.0) fL MCHC (31.0-37.0) g/dL Neutrophils # 9.8 H (1.3-7.7) k/uL Lymphocytes # 0.6 L (1.0-4.8) k/uL ABG pH (7.35-7.45) ABG pCO2 (35-45) mmHg ABG pO2 (83-108) mmHg ABG Total CO2 (19-24) mmol/L ABG O2 Saturation (94-97) % Sodium 136 L (137-145) mmol/L Chloride (98-107) mmol/L Carbon Dioxide 18 L (22-30) mmol/L BUN 42 H (9-20) mg/dL Creatinine 2.35 H (0.66-1.25) mg/dL Glucose 111 H (74-99) mg/dL POC Glucose (mg/dL) (70-110) mg/dL Calcium (8.4-10.2) mg/dL Troponin I 0.086 H* (0.000-0.034) ng/mL Total Protein (6.3-8.2) g/dL Albumin (3.5-5.0) g/dL 07/29/22 07/30/22 07/30/22 Range/Units 21:45 00:12 03:18 WBC (3.8-10.6) k/uL RBC (4.30-5.90) m/uL Hgb (13.0-17.5) gm/dL Hct (39.0-53.0) % MCV (80.0-100.0) fL MCHC (31.0-37.0) g/dL Neutrophils # (1.3-7.7) k/uL Lymphocytes # (1.0-4.8) k/uL ABG pH 7.17 L* (7.35-7.45) ABG pCO2 63 H (35-45) mmHg ABG pO2 71 L (83-108) mmHg ABG Total CO2 25 H (19-24) mmol/L ABG O2 Saturation 87.0 L (94-97) % Sodium (137-145) mmol/L Chloride (98-107) mmol/L Carbon Dioxide (22-30) mmol/L BUN (9-20) mg/dL Creatinine (0.66-1.25) mg/dL Glucose (74-99) mg/dL POC Glucose (mg/dL) 231 H (70-110) mg/dL Calcium (8.4-10.2) mg/dL Troponin I 0.131 H* (0.000-0.034) ng/mL Total Protein (6.3-8.2) g/dL Albumin (3.5-5.0) g/dL 07/30/22 07/30/22 07/30/22 Range/Units 05:01 06:45 06:45 WBC (3.8-10.6) k/uL RBC 2.64 L (4.30-5.90) m/uL Hgb 8.6 L D (13.0-17.5) gm/dL Hct 28.0 L (39.0-53.0) % MCV 106.4 H (80.0-100.0) fL MCHC 30.7 L (31.0-37.0) g/dL Neutrophils # (1.3-7.7) k/uL Lymphocytes # 0.2 L (1.0-4.8) k/uL ABG pH (7.35-7.45) ABG pCO2 (35-45) mmHg ABG pO2 295 H (83-108) mmHg ABG Total CO2 (19-24) mmol/L ABG O2 Saturation 100.0 H (94-97) % Sodium (137-145) mmol/L Chloride 108 H (98-107) mmol/L Carbon Dioxide 21 L (22-30) mmol/L BUN 44 H (9-20) mg/dL Creatinine 2.52 H (0.66-1.25) mg/dL Glucose 140 H (74-99) mg/dL POC Glucose (mg/dL) (70-110) mg/dL Calcium 7.6 L (8.4-10.2) mg/dL Troponin I (0.000-0.034) ng/mL Total Protein 5.2 L (6.3-8.2) g/dL Albumin 3.3 L (3.5-5.0) g/dL 07/30/22 07/30/22 07/30/22 Range/Units 06:45 07:08 13:15 WBC (3.8-10.6) k/uL RBC (4.30-5.90) m/uL Hgb (13.0-17.5) gm/dL Hct (39.0-53.0) % MCV (80.0-100.0) fL MCHC (31.0-37.0) g/dL Neutrophils # (1.3-7.7) k/uL Lymphocytes # (1.0-4.8) k/uL ABG pH (7.35-7.45) ABG pCO2 (35-45) mmHg ABG pO2 (83-108) mmHg ABG Total CO2 (19-24) mmol/L ABG O2 Saturation (94-97) % Sodium (137-145) mmol/L Chloride (98-107) mmol/L Carbon Dioxide (22-30) mmol/L BUN (9-20) mg/dL Creatinine (0.66-1.25) mg/dL Glucose (74-99) mg/dL POC Glucose (mg/dL) 157 H 134 H (70-110) mg/dL Calcium (8.4-10.2) mg/dL Troponin I 0.165 H* (0.000-0.034) ng/mL Total Protein (6.3-8.2) g/dL Albumin (3.5-5.0) g/dL Microbiology - Last 24 Hours (Table) 07/30/22 00:29 Sputum Culture - Preliminary Sputum Assessment and Plan Assessment: Acute hypoxic respiratory failure requiring intubation Acute hypoxic and hypercapnic respiratory failure Likely due to pulmonary edema secondary to hypertensive emergency -Vent to be managed by range master -Patient started on IV Lasix -If no improvement may need to consider other etiologies such as ILD Hypertension urgency -Wean patient off of the nitro drip -Patient started on Coreg COPD History of ILD -Stable -Per range master hold off on antibiotics and steroids Type II AK -Cardiology on board -Per cardiology no evidence of acute coronary syndrome -Resume aspirin and statin Hyperlipidemia -Resume GERD -Resume Pepcid Chronic kidney disease stage IV -Creatinine baseline around 2.5-3 -Patient currently at his baseline -Monitor renal function closely while on diuretics BPH -Resume Flomax History of colon cancer with resection in 2017 History of bladder cancer status post chemoradiation History of cardiac arrest in 2019 -stable Prognosis is guarded
[2022-07-30 19:10] LABS: Glucose,Whole Blood 132 mg/dL (70-110)
[2022-07-30] MEDS: ATORVASTATIN 20 MG TAB PO SCH (20:32)
[2022-07-30] MEDS: QUEtiapine 50 MG TAB PO SCH (20:32)
[2022-07-30] MEDS: MIRTAZAPINE 15 MG TAB PO SCH (20:32)
[2022-07-31 01:05] LABS: Glucose,Whole Blood 123 mg/dL (70-110)
[2022-07-31 05:52] LABS: ABG Base Excess 0.4 mmol/L; ABG HCO3 25 mmol/L (21-25); ABG Oxygen Saturation 99.4 % (94-97); ABG PCO2 42 mmHg (35-45); ABG PH 7.39 (7.35-7.45); ABG PO2 124 mmHg (83-108); ABG TCO2 27 mmol/L (19-24); Allen Test Performed? Yes
[2022-07-31 06:02] LABS: Glucose,Whole Blood 109 mg/dL (70-110)
[2022-07-31 06:50] LABS: HCT 24.8 % (39.0-53.0); Hypochromasia Slight; MCHC 32.2 g/dL (31.0-37.0); MCV 108.5 fL (80.0-100.0); Macrocytosis Marked; Mean Platelet Volume 8.2; Platelet Count 197 k/uL (150-450); RBC 2.29 m/uL (4.30-5.90); RDW 14.2 % (11.5-15.5); WBC 6.3 k/uL (3.8-10.6)
[2022-07-31 07:04] LABS: Calcium 7.6 mg/dL (8.4-10.2); Potassium 3.9 mmol/L (3.5-5.1)
--- NOTE | 2022-07-31 07:36 | XR ---
EXAMINATION TYPE: XR chest 1V portable DATE OF EXAM: 07/31/2022 COMPARISON: 07/30/2022 HISTORY: SOB, Follow Up FINDINGS: Indwelling tubes and catheters are unchanged. No change in bibasilar infiltrates. Stable appearance of the cardio-mediastinal structures at this time. Pleural effusion unchanged. IMPRESSION: 1. Stable portable chest. Clinical correlation and follow up until resolution is recommended.
[2022-07-31] MEDS ORDERED: Potassium Replacement Protocol 1 EACH MISC MISCELLANE PRN (07:53)
[2022-07-31] MEDS ORDERED: POTASSIUM BICARBONATE/CIT AC 20 MEQ TABLET.EFF NG-TUBE SCH (08:00)
[2022-07-31] MEDS: CHLORHEXIDINE GLUCONATE 15 ML CUP MUCOUS MEM SCH (08:21)
[2022-07-31] MEDS: carvediloL 12.5 MG TAB PO SCH ×2 (08:21→16:26)
[2022-07-31] MEDS: FUROSEMIDE 10 MG/ML 10 ML VIAL IV SCH (08:21)
[2022-07-31] MEDS: TAMSULOSIN 0.4 MG CAP.ER.24H PO SCH (08:21)
[2022-07-31] MEDS: FAMOTIDINE 20 MG TAB PO SCH (08:22)
[2022-07-31] MEDS: ASPIRIN 81 MG PO SCH (08:22)
--- NOTE | 2022-07-31 09:29 | P.PN ---
Subjective Progress Note Date: 07/31/22 PROGRESS NOTE The patient is a 72-year-old male who presented was progressive dyspnea, requiring mechanical ventilation. He has a known history of nonischemic cardiomyopathy that improved, prior history of ventricle tachycardia, he has been off amiodarone for possible lung injury. He remains intubated and sedated. Hemodynamically he is stable. There is no evidence of ventricle tachycardia. His urine output has been stable. His blood pressure is stable. His echocardiogram in May revealed a preserved systolic function. His chest x-ray shows significant improvement in his infiltrate, suggestive of fluid overload. Medications: Coreg 25 mg twice a day, aspirin once a day, Lipitor 20 mg daily, Lasix 60 mg IV every 12 hours PHYSICAL EXAMINATION: Blood pressure 145/70 heart rate 80, intubated and sedated LUNGS: Clear to auscultation HEART: Regular rate and rhythm, S1, S2. No S3. No systolic murmur ABDOMEN: Soft, nontender, no organomegaly EXTREMETIES: No edema LAB: Hemoglobin of 8, BUN 54, creatinine 2.62. NT proBNP 44,200, significantly improved IMPRESSION: 1. Respiratory failure with acute dyspnea, probably combination of exacerbation of COPD and heart failure with preserved systolic function 2. Mild troponin elevation, type II event 3. Prior history of DVT, stable 4. Hypertension under better control 5. Acute on chronic renal failure 6. Anemia 7. Possible interstitial lung disease, rule out amiodarone toxicity although there is significant improvement in his chest x-ray PLAN: 1. Attempt to wean and extubate today for pulmonary service 2. Follow renal functions 3. Follow hemoglobin 4. Decrease IV Lasix to 40 mg twice a day 5. Depending on his progress further recommendations will be made. Objective - Vital Signs Vital signs: Vital Signs Temp 99.0 F 07/31/22 08:00 Pulse 90 07/31/22 09:00 Resp 19 07/31/22 09:00 BP 145/70 07/31/22 09:00 Pulse Ox 99 07/31/22 09:00 FiO2 40 07/31/22 08:00 Intake & Output 07/30/22 07/31/22 07/31/22 18:59 06:59 18:59 Intake Total 357.588 292.047 55.252 Output Total 975 1385 325 Balance -617.412 -1092.953 -269.748 Weight 58.2 kg 58.2 kg Intake: Intake, IV Titration 357.588 292.047 55.252 Amount Nitroglycerin-D5w Pmx 50 32.475 mg In Dextrose/Water 1 250ml.bag @ 5 MCG/MIN 1.5 mls/hr IV .Q24H [facility] Rx#: [id number] propofoL 1,000 mg In 325.113 292.047 55.252 Empty Bag 1 bag @ 5 MCG/ KG/MIN 1.769 mls/hr IV . Q24H [facility] Rx#:[id number] Output: Urine 975 1385 325 Other: Voiding Method Indwelling Catheter Indwelling Catheter - Labs CBC & Chem 7: 07/31/22 06:13 07/31/22 06:13 Labs: Abnormal Lab Results - Last 24 Hours (Table) 07/30/22 07/30/22 07/31/22 Range/Units 13:15 19:09 01:02 RBC (4.30-5.90) m/uL Hgb (13.0-17.5) gm/dL Hct (39.0-53.0) % MCV (80.0-100.0) fL Macrocytosis ABG pO2 (83-108) mmHg ABG Total CO2 (19-24) mmol/L ABG O2 Saturation (94-97) % BUN (9-20) mg/dL Creatinine (0.66-1.25) mg/dL Glucose (74-99) mg/dL POC Glucose (mg/dL) 134 H 132 H 123 H (70-110) mg/dL Calcium (8.4-10.2) mg/dL 07/31/22 07/31/22 07/31/22 Range/Units 05:50 06:13 06:13 RBC 2.29 L (4.30-5.90) m/uL Hgb 8.0 L (13.0-17.5) gm/dL Hct 24.8 L (39.0-53.0) % MCV 108.5 H (80.0-100.0) fL Macrocytosis Marked A ABG pO2 124 H (83-108) mmHg ABG Total CO2 27 H (19-24) mmol/L ABG O2 Saturation 99.4 H (94-97) % BUN 54 H (9-20) mg/dL Creatinine 2.62 H (0.66-1.25) mg/dL Glucose 103 H (74-99) mg/dL POC Glucose (mg/dL) (70-110) mg/dL Calcium 7.6 L (8.4-10.2) mg/dL Microbiology - Last 24 Hours (Table) 07/30/22 00:29 Gram Stain - Preliminary Sputum Sputum Culture - Preliminary
--- NOTE | 2022-07-31 09:47 | P.PN ---
Subjective Progress Note Date: 07/31/22 This is a 72-year-old male patient, who was discharged from the hospital approx imately 3 weeks ago after being treated for shortness of breath and was attributed to a combination of COPD and CHF and ILD was also suspected during this last admission. The patient was discharged to be readmitted yesterday because of acute shortness of breath. The patient was at a gas station and he was pumping gas and he felt short of breath probably while inhaling the gas fumes. He presented to the emergency department he was hypoxic with a pulse ox of 70% on room air oxygen. He was even bronchodilators and steroids and diuretics in the emergency without any improvement. He was briefly placed on a BiPAP and following that he. All those measures and the patient was intubated and placed on a mechanical ventilator. Note that his blood pressure was considerably elevated and the patient was having hypertensive emergency with a BP of 233/135. Initial chest x-ray showed diffuse bilateral pulmonary infiltrates reticulonodular appearance. His troponin was 0.08. His proBNP level was 100,000. COVID 19 testing was negative. Influenza screen was negative. The rest of the blood work showed chronic stage IV kidney disease with a creatinine of 2.35 and a BUN of 42. Serum bicarb was at 18. Sodium level was at 136. The white cell count was 11.3 with hemoglobin 10.4 and a platelet count of 297. The EKG showed no acute abnormalities. His cardiac rhythm was sinus. He did have Q waves over the anterior leads and voltage criteria of LVH. No acute ST segment elevations or depressions. Post intubation, the patient was placed on propofol improvement was running at 50 mcg/kg per minute. His blood pressure is essentially normalized and the patient was given nitroglycerin drip which was ultimately titrated off and discontinued. He is on a mechanical ventilator. His oxidation is improved. He is currently on assist control mode at the rate of 18 with a tidal volume of 500 and FiO2 of 40% with a PEEP of 10. I dropped his PEEP down to 5 accordingly. His most recent blood gas while being on a 80% FiO2 showed a pH of 7.38 with a pCO2 of 39 and pO2 of 295. Troponins peaked at 0.16. No fever. No leukocytosis. The patient has been off amiodarone for almost 4 weeks. On 07/31/2022, the patient is an much better condition. He continues to diurese well and the patient remains a negative fluid balance as the patient had flash pulmonary edema. The chest x-ray showing improvement in the volume status and there is some residual edema noted on today's chest x-ray although much improved based on the origin x-ray at the time of diagnosis. The patient was on propofol this morning at 70 mcg/kg per minute. Overnight, his condition was essentially uneventful. The patient's remain on a mechanical ventilator within assist- control mode with a tidal volume of 500 and the rate of 18 with an FiO2 of 40% and the PEEP was down to 5. The patient's blood gases from this morning showed a pH of 7.39 with a pCO2 of 42 and pO2 124. Was producing excellent amount of urine output. ProBNP level is down to 44,200. Creatinine is at 2.6 with a BUN of 54 and the sodium level of 139. White cell count is 6.3 with a hemoglobin of 8.0. The patient is receiving Lasix 60 mg IV every 12 hours. The patient is also on Coreg 25 mg by mouth twice a day. Blood pressure is slightly elevated and the most recent BP is 155/83. I'm going to restart gradually his antihypertensive medication which includes a combination of hydralazine and nitrates. He remains on aspirin. His cardiac rhythm is sinus. No fever. No other issues otherwise for now. No feeding. The patient has an NG tube in place. Objective - Vital Signs Vital signs: Vital Signs Temp 99.0 F 07/31/22 08:00 Pulse 90 07/31/22 09:00 Resp 19 07/31/22 09:00 BP 145/70 07/31/22 09:00 Pulse Ox 99 07/31/22 09:00 FiO2 40 07/31/22 08:00 Intake & Output 07/30/22 07/31/22 07/31/22 18:59 06:59 18:59 Intake Total 357.588 292.047 55.252 Output Total 975 1385 325 Balance -617.412 -1092.953 -269.748 Weight 58.2 kg 58.2 kg Intake: Intake, IV Titration 357.588 292.047 55.252 Amount Nitroglycerin-D5w Pmx 50 32.475 mg In Dextrose/Water 1 250ml.bag @ 5 MCG/MIN 1.5 mls/hr IV .Q24H [facility] Rx#: [id number] propofoL 1,000 mg In 325.113 292.047 55.252 Empty Bag 1 bag @ 5 MCG/ KG/MIN 1.769 mls/hr IV . Q24H [facility] Rx#:[id number] Output: Urine 975 1385 325 Other: Voiding Method Indwelling Catheter Indwelling Catheter Indwelling Catheter - Exam No acute distress, patient is currently sedated on propofol and the patient has an orogastric and orotracheal tube and both of them are in good location. His strength is a mechanical ventilator. No agitation. He withdraws to painful sti mulation and is easily arousable. Head exam was generally normal. There was no scleral icterus or corneal arcus. Mucous membranes were moist. HEENT examination is grossly unremarkable. Neck supple. Full range of motion. No adenopathy thyromegaly or neck vein distention. Cardiovascular examination reveals regular rhythm rate. S1-S2 normal. No S3 or S4. No discernible murmur noted. Lungs reveal scattered bilateral rhonchi and wheezes. There is also crackles at the bases. Breath sounds equal bilaterally. Abdominal exam revealed normal bowel sounds. The abdomen was soft, non-tender, and without masses, organomegaly, or appreciable enlargement of the abdominal aorta. Extremities are intact. No cyanosis clubbing or edema. Skin is without rash or lesion. Neurologically, the patient is sedated - Labs CBC & Chem 7: 07/31/22 06:13 07/31/22 06:13 Labs: Abnormal Lab Results - Last 24 Hours (Table) 07/30/22 07/30/22 07/31/22 Range/Units 13:15 19:09 01:02 RBC (4.30-5.90) m/uL Hgb (13.0-17.5) gm/dL Hct (39.0-53.0) % MCV (80.0-100.0) fL Macrocytosis ABG pO2 (83-108) mmHg ABG Total CO2 (19-24) mmol/L ABG O2 Saturation (94-97) % BUN (9-20) mg/dL Creatinine (0.66-1.25) mg/dL Glucose (74-99) mg/dL POC Glucose (mg/dL) 134 H 132 H 123 H (70-110) mg/dL Calcium (8.4-10.2) mg/dL 07/31/22 07/31/22 07/31/22 Range/Units 05:50 06:13 06:13 RBC 2.29 L (4.30-5.90) m/uL Hgb 8.0 L (13.0-17.5) gm/dL Hct 24.8 L (39.0-53.0) % MCV 108.5 H (80.0-100.0) fL Macrocytosis Marked A ABG pO2 124 H (83-108) mmHg ABG Total CO2 27 H (19-24) mmol/L ABG O2 Saturation 99.4 H (94-97) % BUN 54 H (9-20) mg/dL Creatinine 2.62 H (0.66-1.25) mg/dL Glucose 103 H (74-99) mg/dL POC Glucose (mg/dL) (70-110) mg/dL Calcium 7.6 L (8.4-10.2) mg/dL Microbiology - Last 24 Hours (Table) 07/30/22 00:29 Gram Stain - Preliminary Sputum Sputum Culture - Preliminary Assessment and Plan Plan: Acute hypoxic respiratory failure requiring intubation mechanical ventilation. The patient is currently intubated, sedated, hemodynamically stable. Rule out acute flash pulmonary edema secondary to hypertensive emergency. The patient's blood pressure was considerably elevated at a time of admission and his blood pressure is normalized. At the same time, the patient was given nitroglycerin drip on diuretics. He has produced excellent urine output On today's evaluation, is becoming more clear to me that the patient went into flash pulmonary edema and his chest x-ray is improving as the patient is being adequately diabetes. This could be in hypertensive emergency with flash pulmonary edema with elevated proBNP level and acute hypoxic respiratory failure and the patient is gradually improving. Underlying ILD is possible although less likely and it does not seem to be the culprit. BP is under better control for now. Nonocclusive coronary artery disease, limited troponin leak COPD Previous history of nonischemic cardiomyopathy with subsequent normalization of the ejection fraction Multiple recent admissions to this hospital, for shortness of breath, thought to be related to both COPD and CHF. Previous history of smoking History of colon cancer, with previous resection, 2017 History of bladder cancer, status post chemoradiation. History of hypertension. History of hyperlipidemia. History of gastroesophageal reflux disease. History of cardiac arrest, 2019. History of stage IV chronic kidney disease. History of BPH. History of anemia. History of restless leg syndrome. Plan Stop sedation Check weaning parameters This point is breathing trial with a pressure support of 5 and a PEEP of 5 Start the patient on hydralazine and Imdur. Hydralazine will be started those of 100 mg by mouth 3 times a day and injured 30 mg by mouth daily. Continue Coreg. Continue IV Lasix Possible extubation today Chest x-rays improving. ProBNP level is dropped BP is under better control Condition remains critical continue to follow her doing his breathing trial and possible extubation today. He needs to stay in the ICU for another 24 hours at least if successful extubation is achieved. Critically care evaluation, more than 30 minutes. Time with Patient: Greater than 30
--- NOTE | 2022-07-31 12:34 | P.PN ---
Subjective Progress Note Date: 07/31/22 When I walked in the room patient had just been extubated. Patient was able to give a good cough. Objective - Vital Signs Vital signs: Vital Signs Temp 99.0 F 07/31/22 08:00 Pulse 85 07/31/22 12:00 Resp 8 L 07/31/22 12:00 BP 149/72 07/31/22 12:00 Pulse Ox 99 07/31/22 12:00 FiO2 40 07/31/22 08:00 Intake & Output 07/30/22 07/31/22 07/31/22 18:59 06:59 18:59 Intake Total 357.588 292.047 55.252 Output Total 975 1385 550 Balance -617.412 -1092.953 -494.748 Weight 58.2 kg 58.2 kg Intake: Intake, IV Titration 357.588 292.047 55.252 Amount Nitroglycerin-D5w Pmx 50 32.475 mg In Dextrose/Water 1 250ml.bag @ 5 MCG/MIN 1.5 mls/hr IV .Q24H [facility] Rx#: [id number] propofoL 1,000 mg In 325.113 292.047 55.252 Empty Bag 1 bag @ 5 MCG/ KG/MIN 1.769 mls/hr IV . 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 Psych - unable to assess - Labs CBC & Chem 7: 07/31/22 06:13 07/31/22 06:13 Labs: Abnormal Lab Results - Last 24 Hours (Table) 07/30/22 07/30/22 07/31/22 Range/Units 13:15 19:09 01:02 RBC (4.30-5.90) m/uL Hgb (13.0-17.5) gm/dL Hct (39.0-53.0) % MCV (80.0-100.0) fL Macrocytosis ABG pO2 (83-108) mmHg ABG Total CO2 (19-24) mmol/L ABG O2 Saturation (94-97) % BUN (9-20) mg/dL Creatinine (0.66-1.25) mg/dL Glucose (74-99) mg/dL POC Glucose (mg/dL) 134 H 132 H 123 H (70-110) mg/dL Calcium (8.4-10.2) mg/dL 07/31/22 07/31/22 07/31/22 Range/Units 05:50 06:13 06:13 RBC 2.29 L (4.30-5.90) m/uL Hgb 8.0 L (13.0-17.5) gm/dL Hct 24.8 L (39.0-53.0) % MCV 108.5 H (80.0-100.0) fL Macrocytosis Marked A ABG pO2 124 H (83-108) mmHg ABG Total CO2 27 H (19-24) mmol/L ABG O2 Saturation 99.4 H (94-97) % BUN 54 H (9-20) mg/dL Creatinine 2.62 H (0.66-1.25) mg/dL Glucose 103 H (74-99) mg/dL POC Glucose (mg/dL) (70-110) mg/dL Calcium 7.6 L (8.4-10.2) mg/dL Microbiology - Last 24 Hours (Table) 07/30/22 00:29 Gram Stain - Preliminary Sputum Sputum Culture - Preliminary Assessment and Plan Assessment: Acute hypoxic respiratory failure requiring intubation Acute hypoxic and hypercapnic respiratory failure Likely due to pulmonary edema secondary to hypertensive emergency -Patient extubated on 07/31/2022 -Resume IV Lasix as per pulmonology and cardiology -Chest x-ray this morning appears stable Hypertension urgency -Patient off nitro drip -Patient started on Coreg, Imdur and hydralazine -Blood pressure this morning is controlled COPD History of ILD -Stable -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
[2022-07-31] MEDS: IPRATROPIUM-ALBUTEROL 3 ML NEB INHALATION PRN (15:59)
[2022-07-31] MEDS: hydrALAZINE HCL 50 MG TAB PO SCH ×2 (16:25→21:57)
[2022-07-31 16:59] LABS: % Iron Saturation 8.01 (15.00-50.00)
[2022-07-31] MEDS: ATORVASTATIN 20 MG TAB PO SCH (20:25)
[2022-07-31] MEDS: MIRTAZAPINE 15 MG TAB PO SCH (20:25)
[2022-07-31] MEDS: QUEtiapine 50 MG TAB PO SCH (20:25)
[2022-07-31] MEDS: FUROSEMIDE 10 MG/ML 4 ML VIAL IV SCH (20:26)
[2022-08-01 00:25] LABS: Glucose,Whole Blood 81 mg/dL (70-110)
[2022-08-01 04:48] LABS: Calcium 8.5 mg/dL (8.4-10.2); Potassium 3.3 mmol/L (3.5-5.1)
[2022-08-01 05:20] LABS: Glucose,Whole Blood 71 mg/dL (70-110)
[2022-08-01] MEDS: POTASSIUM CHLORIDE 10 MEQ in WATER FOR INJECTION 1 100ML.BAG IVPB SCH ×2 (06:58→08:17)
[2022-08-01] MEDS: carvediloL 12.5 MG TAB PO SCH ×2 (07:04→16:57)
--- NOTE | 2022-08-01 07:39 | XR ---
EXAMINATION TYPE: XR chest 1V portable DATE OF EXAM: 08/01/2022 HISTORY: Shortness of breath. COMPARISON: 07/31/2022 TECHNIQUE: Single view of the chest is submitted. FINDINGS: Demonstrated are scattered senescent parenchymal change. Endotracheal and NG tubes have been removed. There is no evidence for focal infiltrate. The heart is stable. Hilar and mediastinal structures are within normal limits. Degenerative changes are seen of the dorsal spine. IMPRESSION: 1. Chronic changes without evidence for acute pulmonary disease.
[2022-08-01] MEDS: hydrALAZINE HCL 50 MG TAB PO SCH ×3 (08:17→21:35)
[2022-08-01] MEDS: ISOSORBIDE MONONITRATE ER 30 MG TAB.ER.24H PO SCH (08:17)
[2022-08-01] MEDS: FAMOTIDINE 20 MG TAB PO SCH (08:17)
[2022-08-01] MEDS: ASPIRIN 81 MG PO SCH (08:17)
[2022-08-01] MEDS: TAMSULOSIN 0.4 MG CAP.ER.24H PO SCH (08:17)
[2022-08-01] MEDS: FUROSEMIDE 10 MG/ML 4 ML VIAL IV SCH (08:18)
--- NOTE | 2022-08-01 08:40 | P.PN ---
Subjective Progress Note Date: 08/01/22 This is a 72-year-old male patient, who was discharged from the hospital approx imately 3 weeks ago after being treated for shortness of breath and was attributed to a combination of COPD and CHF and ILD was also suspected during this last admission. The patient was discharged to be readmitted yesterday because of acute shortness of breath. The patient was at a gas station and he was pumping gas and he felt short of breath probably while inhaling the gas fumes. He presented to the emergency department he was hypoxic with a pulse ox of 70% on room air oxygen. He was even bronchodilators and steroids and diuretics in the emergency without any improvement. He was briefly placed on a BiPAP and following that he. All those measures and the patient was intubated and placed on a mechanical ventilator. Note that his blood pressure was considerably elevated and the patient was having hypertensive emergency with a BP of 233/135. Initial chest x-ray showed diffuse bilateral pulmonary infiltrates reticulonodular appearance. His troponin was 0.08. His proBNP level was 100,000. COVID 19 testing was negative. Influenza screen was negative. The rest of the blood work showed chronic stage IV kidney disease with a creatinine of 2.35 and a BUN of 42. Serum bicarb was at 18. Sodium level was at 136. The white cell count was 11.3 with hemoglobin 10.4 and a platelet count of 297. The EKG showed no acute abnormalities. His cardiac rhythm was sinus. He did have Q waves over the anterior leads and voltage criteria of LVH. No acute ST segment elevations or depressions. Post intubation, the patient was placed on propofol improvement was running at 50 mcg/kg per minute. His blood pressure is essentially normalized and the patient was given nitroglycerin drip which was ultimately titrated off and discontinued. He is on a mechanical ventilator. His oxidation is improved. He is currently on assist control mode at the rate of 18 with a tidal volume of 500 and FiO2 of 40% with a PEEP of 10. I dropped his PEEP down to 5 accordingly. His most recent blood gas while being on a 80% FiO2 showed a pH of 7.38 with a pCO2 of 39 and pO2 of 295. Troponins peaked at 0.16. No fever. No leukocytosis. The patient has been off amiodarone for almost 4 weeks. On 07/31/2022, the patient is an much better condition. He continues to diurese well and the patient remains a negative fluid balance as the patient had flash pulmonary edema. The chest x-ray showing improvement in the volume status and there is some residual edema noted on today's chest x-ray although much improved based on the origin x-ray at the time of diagnosis. The patient was on propofol this morning at 70 mcg/kg per minute. Overnight, his condition was essentially uneventful. The patient's remain on a mechanical ventilator within assist- control mode with a tidal volume of 500 and the rate of 18 with an FiO2 of 40% and the PEEP was down to 5. The patient's blood gases from this morning showed a pH of 7.39 with a pCO2 of 42 and pO2 124. Was producing excellent amount of urine output. ProBNP level is down to 44,200. Creatinine is at 2.6 with a BUN of 54 and the sodium level of 139. White cell count is 6.3 with a hemoglobin of 8.0. The patient is receiving Lasix 60 mg IV every 12 hours. The patient is also on Coreg 25 mg by mouth twice a day. Blood pressure is slightly elevated and the most recent BP is 155/83. I'm going to restart gradually his antihypertensive medication which includes a combination of hydralazine and nitrates. He remains on aspirin. His cardiac rhythm is sinus. No fever. No other issues otherwise for now. No feeding. The patient has an NG tube in place. 08/01/2022, the patient is extubated and is doing very well at 3 L about 2 by nasal cannula. No specific complaints. He has diuresed more than 4 L and overall diuresis was in order of 5 L. He weaned off the mechanical ventilator without any major difficulties. This morning, he is normotensive, cardiac rhythm is sinus. Ceballos catheter still in place. The urine output is still adequate. BUN is at 60 with a creatinine of 2.8 and sodium is 143. Repeat chest x-ray from today shows improvement in the volume status although there is some underlying chronic lung disease probably the form of COPD. As mentioned, ILD is another consideration. The patient was started on hydralazine and nitrates and the patient is also on Coreg. Otherwise, no other significant events overnight. The patient is being given diet today. Potassium is to be replaced. The patient will be switched to oral Lasix 40 mg twice a day. He can be also downgraded. Objective - Vital Signs Vital signs: Vital Signs Temp 98.3 F 08/01/22 04:00 Pulse 71 08/01/22 07:00 Resp 13 08/01/22 07:00 BP 153/85 08/01/22 07:00 Pulse Ox 96 08/01/22 07:00 FiO2 40 07/31/22 08:00 Intake & Output 07/31/22 08/01/22 08/01/22 18:59 06:59 18:59 Intake Total 55.252 Output Total 1700 2770 120 Balance -1644.748 -2770 -120 Weight 58.2 kg 58.2 kg Intake: Intake, IV Titration 55.252 Amount propofoL 1,000 mg In 55.252 Empty Bag 1 bag @ 5 MCG/ KG/MIN 1.769 mls/hr IV . Q24H [facility] Rx#:[id number] Output: Urine 1700 2770 120 Other: Voiding Method Indwelling Catheter Indwelling Catheter # Bowel Movements 1 - Exam No acute distress, awake and on O2 at 2 L by nasal cannula Head exam was generally normal. There was no scleral icterus or corneal arcus. Mucous membranes were moist. HEENT examination is grossly unremarkable. Neck supple. Full range of motion. No adenopathy thyromegaly or neck vein distention. Cardiovascular examination reveals regular rhythm rate. S1-S2 normal. No S3 or S4. No discernible murmur noted. Lungs reveal scattered bilateral rhonchi and wheezes. There is also crackles at the bases. Breath sounds equal bilaterally. Abdominal exam revealed normal bowel sounds. The abdomen was soft, non-tender, and without masses, organomegaly, or appreciable enlargement of the abdominal aorta. Extremities are intact. No cyanosis clubbing or edema. Skin is without rash or lesion. Neurologically, alert and oriented 3 - Labs CBC & Chem 7: 07/31/22 06:13 08/01/22 04:07 Labs: Abnormal Lab Results - Last 24 Hours (Table) 07/31/22 08/01/22 Range/Units 06:13 04:07 Potassium 3.3 L (3.5-5.1) mmol/L BUN 61 H (9-20) mg/dL Creatinine 2.85 H (0.66-1.25) mg/dL Glucose 68 L (74-99) mg/dL Iron 22 L (65-175) ug/dL % Saturation 8.01 L (15.00-50.00) Transferrin 197.0 L (204.0-354.0) mg/dL Microbiology - Last 24 Hours (Table) 07/30/22 00:29 Gram Stain - Preliminary Sputum Sputum Culture - Preliminary Assessment and Plan Plan: Acute hypoxic respiratory failure requiring intubation mechanical ventilation. The patient is currently intubated, sedated, hemodynamically stable. Rule out acute flash pulmonary edema secondary to hypertensive emergency. The patient w as extubated yesterday and the patient is currently on 2 L O2 nasal cannula. Chest x-ray continues to improve. Nonocclusive coronary artery disease, limited troponin leak COPD Previous history of nonischemic cardiomyopathy with subsequent normalization of the ejection fraction Multiple recent admissions to this hospital, for shortness of breath, thought to be related to both COPD and CHF. Previous history of smoking History of colon cancer, with previous resection, 2016 History of bladder cancer, status post chemoradiation. History of hypertension. History of hyperlipidemia. History of gastroesophageal reflux disease. History of cardiac arrest, 2019. History of stage IV chronic kidney disease. History of BPH. History of anemia. History of restless leg syndrome. Plan O2 at 2 L nasal cannula Incentive spirometer Chest x-ray was noted Blood pressure is under adequate control and the patient is taking Correctol hydralazine and injured. Hold Cozaar or losartan for now Continue Lasix and switch to 40 mg twice a day Replace potassium Advance diet DC Ceballos catheter Increased mobility Downgraded to telemetry
--- NOTE | 2022-08-01 09:44 | P.PN ---
Subjective Progress Note Date: 08/01/22 PROGRESS NOTE The patient is a 72-year-old male who presented was progressive dyspnea, requiring mechanical ventilation. He has a known history of nonischemic cardiomyopathy that improved, prior history of ventricle tachycardia, he has been off amiodarone for possible lung injury. He remains intubated and sedated. Hemodynamically he is stable. There is no evidence of ventricle tachycardia. His urine output has been stable. His blood pressure is stable. His echocardiogram in May revealed a preserved systolic function. His chest x-ray shows significant improvement in his infiltrate, suggestive of fluid overload. August 01: The patient is extubated, feeling well, denies any chest discomfort, dizziness or palpitations. He is in sinus mechanism. His urine output has been stable. He denies dyspnea, nausea or vomiting. He is taking by mouth. His blood pressure is under better control. Medications: Coreg 25 mg twice a day, aspirin once a day, Lipitor 20 mg daily, Lasix 40 mg IV every 12 hours, Imdur 30 mg daily, hydralazine 50 mg 3 times a day PHYSICAL EXAMINATION: Blood pressure 139/60 heart rate 60 LUNGS: Clear to auscultation HEART: Regular rate and rhythm, S1, S2. No S3. No systolic murmur ABDOMEN: Soft, nontender, no organomegaly EXTREMETIES: No edema LAB: Hemoglobin of 8, BUN 61, creatinine 2.85, potassium 3.3. IMPRESSION: 1. Respiratory failure with acute dyspnea, probably combination of exacerbation of COPD and heart failure with preserved systolic function, resolved 2. Mild troponin elevation, type II event 3. Prior history of DVT, stable 4. Hypertension under better control 5. Acute on chronic renal failure 6. Anemia 7. Possible interstitial lung disease, rule out amiodarone toxicity although there is significant improvement in his chest x-ray PLAN: 1. Continue present therapy 2. Follow renal functions 3. Increase physical activity 4. If renal function stable restart losartan 5. Probable transfer to telemetry Objective - Vital Signs Vital signs: Vital Signs Temp 98.6 F 08/01/22 08:00 Pulse 69 08/01/22 09:00 Resp 19 08/01/22 09:00 BP 139/62 08/01/22 09:00 Pulse Ox 96 08/01/22 09:00 FiO2 40 07/31/22 08:00 Intake & Output 0908/01/22 08/01/22 18:59 06:59 18:59 Intake Total 55.252 440 Output Total 1700 2770 245 Balance -1644.748 -2770 195 Weight 58.2 kg 58.2 kg Intake: Intake, IV Titration 55.252 200 Amount Potassium Chloride 10 meq 200 In Water For Injection 1 100ml.bag @ 100 mls/hr IVPB Q1H [facility] Rx#: [id number] propofoL 1,000 mg In 55.252 Empty Bag 1 bag @ 5 MCG/ KG/MIN 1.769 mls/hr IV . Q24H [facility] Rx#:[id number] Oral 240 Output: Urine 1700 2770 245 Other: Voiding Method Indwelling Catheter Indwelling Catheter Indwelling Catheter # Bowel Movements 1 - Labs CBC & Chem 7: 07/31/22 06:13 08/01/22 04:07 Labs: Abnormal Lab Results - Last 24 Hours (Table) 07/31/22 08/01/22 Range/Units 06:13 04:07 Potassium 3.3 L (3.5-5.1) mmol/L BUN 61 H (9-20) mg/dL Creatinine 2.85 H (0.66-1.25) mg/dL Glucose 68 L (74-99) mg/dL Iron 22 L (65-175) ug/dL % Saturation 8.01 L (15.00-50.00) Transferrin 197.0 L (204.0-354.0) mg/dL Microbiology - Last 24 Hours (Table) 07/30/22 00:29 Gram Stain - Preliminary Sputum Sputum Culture - Preliminary
--- NOTE | 2022-08-01 10:08 | P.PN ---
Subjective Progress Note Date: 08/01/22 Patient says that his breathing is much better today. He is denying any acute complaints. He is currently satting well on 2 L nasal cannula. Objective - Vital Signs Vital signs: Vital Signs Temp 98.6 F 08/01/22 08:00 Pulse 69 08/01/22 09:00 Resp 19 08/01/22 09:00 BP 139/62 08/01/22 09:00 Pulse Ox 96 08/01/22 09:00 FiO2 40 07/31/22 08:00 Intake & Output 07/31/22 08/01/22 08/01/22 18:59 06:59 18:59 Intake Total 55.252 440 Output Total 1700 2770 245 Balance -1644.748 -2770 195 Weight 58.2 kg 58.2 kg Intake: Intake, IV Titration 55.252 200 Amount Potassium Chloride 10 meq 200 In Water For Injection 1 100ml.bag @ 100 mls/hr IVPB Q1H [facility] Rx#: [id number] propofoL 1,000 mg In 55.252 Empty Bag 1 bag @ 5 MCG/ KG/MIN 1.769 mls/hr IV . Q24H [facility] Rx#:[id number] Oral 240 Output: Urine 1700 2770 245 Other: Voiding Method Indwelling Catheter Indwelling Catheter Indwelling Catheter # Bowel Movements 1 - Exam General examination - no acute distress, appears chronically debilitated Heart - + S1S2 no murmurs Lungs - diminished but does bilaterally Abdomen soft NT ND +ve BS Extremities - No edema [employer] -no focal deficits, following commands Psych - calm and appropriate - Labs CBC & Chem 7: 07/31/22 06:13 08/01/22 04:07 Labs: Abnormal Lab Results - Last 24 Hours (Table) 07/31/22 08/01/22 Range/Units 06:13 04:07 Potassium 3.3 L (3.5-5.1) mmol/L BUN 61 H (9-20) mg/dL Creatinine 2.85 H (0.66-1.25) mg/dL Glucose 68 L (74-99) mg/dL Iron 22 L (65-175) ug/dL % Saturation 8.01 L (15.00-50.00) Transferrin 197.0 L (204.0-354.0) mg/dL Microbiology - Last 24 Hours (Table) 07/30/22 00:29 Gram Stain - Preliminary Sputum Sputum Culture - Preliminary Assessment and Plan Assessment: Acute hypoxic respiratory failure requiring intubation Acute hypoxic and hypercapnic respiratory failure Likely due to pulmonary edema secondary to hypertensive emergency -Patient extubated on 07/31/2022 -We'll transition patient to his home dose Lasix 40 mg twice a day -Chest x-ray from the showed morning is showing improvement. He does show some chronic changes which is likely due to underlying ILD. Hypertension urgency -Patient off nitro drip -Patient started on Coreg, Imdur and hydralazine -Blood pressure this morning is controlled COPD History of ILD -Stable Type II SD -Cardiology on board -Per cardiology no evidence of acute coronary syndrome -Resume aspirin and statin Hyperlipidemia -Resume GERD -Resume Pepcid Chronic kidney disease stage IV -Creatinine baseline around 2.5-3 -Patient currently at his baseline -Monitor renal function closely while on diuretics -Patient is making good urine output BPH -Resume Flomax Iron deficiency anemia Patient currently having no overt signs of bleeding He'll need close follow up outpatient with his PCP especially since he has a history of colon cancer Trend CBC History of colon cancer with resection in 2017 History of bladder cancer status post chemoradiation History of cardiac arrest in 2019 -stable Prognosis is guarded Anticipated patient be ready for discharge in the next 24 hours if his renal function and hemoglobin are stable.
[2022-08-01 11:41] LABS: Glucose,Whole Blood 82 mg/dL (70-110)
[2022-08-01 12:32] LABS: HCT 29.8 % (39.0-53.0); HGB 9.3 gm/dL (13.0-17.5); Hypochromasia Slight; MCH 33.2 pg (25.0-35.0); MCHC 31.2 g/dL (31.0-37.0); MCV 106.5 fL (80.0-100.0); Macrocytosis Moderate; Mean Platelet Volume 7.3; Platelet Count 246 k/uL (150-450); RDW 14.2 % (11.5-15.5); WBC 6.3 k/uL (3.8-10.6)
[2022-08-01] MEDS: FUROSEMIDE 40 MG TAB PO SCH (16:56)
[2022-08-01 20:19] LABS: Glucose,Whole Blood 193 mg/dL (70-110)
[2022-08-01] MEDS: ATORVASTATIN 20 MG TAB PO SCH (21:36)
[2022-08-01] MEDS: MIRTAZAPINE 15 MG TAB PO SCH (21:36)
[2022-08-01] MEDS: QUEtiapine 50 MG TAB PO SCH (21:36)
[2022-08-02 04:22] LABS: Potassium 3.8 mmol/L (3.5-5.1)
[2022-08-02 04:43] LABS: HCT 29.2 % (39.0-53.0); HGB 9.4 gm/dL (13.0-17.5); Hypochromasia Slight; MCH 33.8 pg (25.0-35.0); MCV 105.4 fL (80.0-100.0); Macrocytosis Moderate; Mean Platelet Volume 7.6; Platelet Count 235 k/uL (150-450); RBC 2.77 m/uL (4.30-5.90); WBC 6.9 k/uL (3.8-10.6)
[2022-08-02 06:29] LABS: Glucose,Whole Blood 105 mg/dL (70-110)
[2022-08-02] MEDS: FAMOTIDINE 20 MG TAB PO SCH (09:01)
[2022-08-02] MEDS: hydrALAZINE HCL 50 MG TAB PO SCH ×3 (09:01→21:31)
[2022-08-02] MEDS: FUROSEMIDE 40 MG TAB PO SCH ×2 (09:01→15:43)
[2022-08-02] MEDS: ASPIRIN 81 MG PO SCH (09:01)
[2022-08-02] MEDS: TAMSULOSIN 0.4 MG CAP.ER.24H PO SCH (09:01)
[2022-08-02] MEDS: ISOSORBIDE MONONITRATE ER 30 MG TAB.ER.24H PO SCH (09:01)
[2022-08-02] MEDS: carvediloL 12.5 MG TAB PO SCH ×2 (09:01→17:33)
--- NOTE | 2022-08-02 10:09 | P.PN ---
Subjective PROGRESS NOTE The patient is a 72-year-old male who presented was progressive dyspnea, requiring mechanical ventilation. He has a known history of nonischemic cardiomyopathy that improved, prior history of ventricle tachycardia, he has been off amiodarone for possible lung injury. He remains intubated and sedated. Hemodynamically he is stable. There is no evidence of ventricle tachycardia. His urine output has been stable. His blood pressure is stable. His echocardiogram in May revealed a preserved systolic function. His chest x-ray shows significant improvement in his infiltrate, suggestive of fluid overload. August 01: The patient is extubated, feeling well, denies any chest discomfort, dizziness or palpitations. He is in sinus mechanism. His urine output has been stable. He denies dyspnea, nausea or vomiting. He is taking by mouth. His blood pressure is under better control. 08/02 Patient seen and examined. Denies any chest pain or pressure. States that shortness of breath appears close to baseline. Blood pressures somewhat more elevated in the 150s to 160s. Admits to labile blood pressures at home however often in the 180s. On presentation systolic was in the 200 to 2:30 range which likely is cause of his exacerbation. PHYSICAL EXAMINATION: Vitals reviewed LUNGS: Clear to auscultation HEART: Regular rate and rhythm, S1, S2. No S3. No systolic murmur ABDOMEN: Soft, nontender, no organomegaly EXTREMETIES: No edema IMPRESSION: 1. Respiratory failure with acute dyspnea, probably combination of exacerbation of COPD and heart failure with preserved systolic function, resolved. Likely exacerbated by extreme hypertension 2. Mild troponin elevation, type II event 3. Prior history of DVT, stable 4. Hypertension labile 5. Acute on chronic renal failure 6. Anemia 7. Possible interstitial lung disease, rule out amiodarone toxicity although there is significant improvement in his chest x-ray PLAN: Patient with somewhat labile blood pressures. Presentation is concerning for acute pulmonary edema likely exacerbated by extreme hypertension. He does have a history of PAD with prior severe iliac disease on prior heart catheterization. Consideration of possible renal artery stenosis causing flash pulmonary edema and therefore we will check ultrasound kidneys. Creatinine still mildly el evated and continue to hold losartan. Increase hydralazine 103 times a day. Hopeful discharge in next 24-48 hours if the pressure under better control and remains stable, kidney function remains stable. Objective - Vital Signs Vital signs: Vital Signs Temp 98.0 F 08/02/22 08:00 Pulse 81 08/02/22 09:00 Resp 16 08/02/22 09:00 BP 152/77 08/02/22 08:00 Pulse Ox 93 L 08/02/22 04:00 FiO2 40 07/31/22 08:00 Intake & Output 08/01/22 08/02/22 08/02/22 18:59 06:59 18:59 Intake Total 440 Output Total 1215 830 Balance -775 -830 Weight 51.7 kg Intake: Intake, IV Titration 200 Amount Potassium Chloride 10 meq 200 In Water For Injection 1 100ml.bag @ 100 mls/hr IVPB Q1H [facility] Rx#: [id number] Oral 240 Output: Urine 1215 830 Other: Voiding Method Indwelling Catheter Indwelling Catheter - Labs CBC & Chem 7: 08/02/22 03:11 08/02/22 03:19 Labs: Abnormal Lab Results - Last 24 Hours (Table) 08/01/22 08/01/22 08/02/22 Range/Units 11:55 20:17 03:11 RBC 2.80 L 2.77 L (4.30-5.90) m/uL Hgb 9.3 L 9.4 L (13.0-17.5) gm/dL Hct 29.8 L 29.2 L (39.0-53.0) % MCV 106.5 H 105.4 H (80.0-100.0) fL BUN (9-20) mg/dL Creatinine (0.66-1.25) mg/dL POC Glucose (mg/dL) 193 H (70-110) mg/dL Calcium (8.4-10.2) mg/dL 08/02/22 Range/Units 03:19 RBC (4.30-5.90) m/uL Hgb (13.0-17.5) gm/dL Hct (39.0-53.0) % MCV (80.0-100.0) fL BUN 64 H (9-20) mg/dL Creatinine 3.05 H (0.66-1.25) mg/dL POC Glucose (mg/dL) (70-110) mg/dL Calcium 8.0 L (8.4-10.2) mg/dL Microbiology - Last 24 Hours (Table) 07/30/22 00:29 Gram Stain - Final Sputum Sputum Culture - Final
--- NOTE | 2022-08-02 10:25 | P.NPCON ---
History of Present Illness - Reason for Consult chronic renal failure - History of Present Illness Reason for consultation: Chronic kidney disease History of present illness: Patient is a 72-year-old male sedated consultation for chronic kidney disease. Patient has chronic kidney disease stage IV with baseline creatinine in the range of 2.5-3 secondary to nephrosclerosis. Patient presented to the hospital with sudden onset of shortness of breath. He was noted to be in pulmonary edema and was subsequently intubated. Blood pressure was over 200 systolic. He was extubated 07/31/2022. He is currently awake and alert. Oral intake is good. No vomiting or diarrhea. Denies chest pain or shortness of breath. He's on room air. He denies history of diabetes. He was a nitro drip which has been d iscontinued. Patient was receiving IV Lasix and is now on oral Lasix 40 mg twice daily. Patient states he has history of bladder cancer and finished chemotherapy about a month ago. He did lose weight during chemo but now is gaining weight again. No hematuria. No vomiting or diarrhea. No active complaints at this time. Vital signs are stable. General: Awake. No acute distress. HEENT: Head exam is unremarkable. LUNGS: Breath sounds decreased. HEART: Rate and Rhythm are regular. ABDOMEN: Soft, no distention. EXTREMITITES: No edema. Past Medical History Past Medical History: Cancer, Heart Failure, COPD, GERD/Reflux, Hyperlipidemia, Hypertension, Prostate Disorder, Renal Disease Additional Past Medical History / Comment(s): Pt recently admitted to [facility] on 06/11/22 with acute on chronic CHF, hyperkalemia. Other hx: Recent bladder cancer/completed oral chemo and radiation, past colon cancer with resection, nonischemic cardiomyopathy, 2020 cardiac arrent/Vtach, CKD stage IV, BPH, hemorrhoids, anemia, RLS, chronic low back pain History of Any Multi-Drug Resistant Organisms: None Reported Past Surgical History: Appendectomy, Bowel Resection, Heart Catheterization, O rthopedic Surgery Additional Past Surgical History / Comment(s): R hemicolectomy, colonoscopies, nasal surgery to repair ulcer, R knee arthroscopic surgeries (ACL repair and m eniscus repair), L heel fusion d/t trauma, L arm bicep surgery. Past Anesthesia/Blood Transfusion Reactions: No Reported Reaction Past Psychological History: Anxiety Smoking Status: Current every day smoker Past Alcohol Use History: None Reported Past Drug Use History: None Reported - Past Family History Mother Family Medical History: Cancer Additional Family Medical History / Comment(s): BREAST Sister(s) Family Medical History: Deep Vein Thrombosis (DVT) Additional Family Medical History / Comment(s): 1 sister had leukemia, and ano ther sister had non hodgkins. Father Family Medical History: COPD Additional Family Medical History / Comment(s): FROM CARDIAC ARREST Medications and Allergies Home Medications Medication Instructions Recorded Confirmed Type Tamsulosin [Flomax] 0.4 mg PO DAILY 06/04/16 07/29/22 History Famotidine [Pepcid] 20 mg PO BID 06/08/20 07/29/22 History Multivitamins, Thera [Multivitamin 1 tab PO DAILY 06/08/20 07/29/22 History (formulary)] Atorvastatin Calcium [Lipitor] 20 mg PO HS 06/24/21 07/29/22 History Losartan [Cozaar] 50 mg PO DAILY 06/24/21 07/29/22 History Fluticasone Propion/Salmeterol 1 puff INHALATION RT-BID 08/27/21 07/29/22 History [Wixela 250-50 Inhub] Melatonin 5 mg PO HS 05/31/22 07/29/22 History Mirtazapine [Remeron] 30 mg PO HS 05/31/22 07/29/22 History Nitroglycerin Sl Tabs 0.3mg 0.3 mg SL Q5M PRN 05/31/22 07/29/22 History QUEtiapine [SEROquel] 150 mg PO HS 05/31/22 07/29/22 History hydrALAZINE HCL [Apresoline] 100 mg PO TID 05/31/22 07/29/22 History Acetaminophen Tab [Tylenol] 650 mg PO Q6HR PRN tab 06/05/22 07/29/22 Rx HYDROcodone/APAP 10-325MG [Bayard 1 tab PO Q8H PRN #9 tab 06/05/22 07/29/22 Rx 10-325] Aspirin 81 mg PO DAILY #30 tab 06/12/22 07/29/22 Rx Furosemide [Lasix] 40 mg PO BID@0900,1600 #60 tab 06/12/22 07/29/22 Rx Potassium Chloride ER [K-Dur 20] 20 meq PO DAILY #14 tab 06/12/22 07/29/22 Rx carvediloL [Coreg*] 25 mg PO BID-W/MEALS #60 tab 06/12/22 07/29/22 Rx Albuterol Inhaler [Ventolin Hfa 1 - 2 puff INHALATION RT-Q6H PRN 06/26/22 07/29/22 Rx Inhaler] 30 Days #1 dispenser Isosorbide Mononitrate ER [Imdur] 30 mg PO DAILY 30 Days #30 tab 07/04/22 07/29/22 Rx Cyanocobalamin [Vitamin B-12] 1,000 mcg PO DAILY #30 tab 07/12/22 07/29/22 Rx Allergies Allergy/AdvReac Type Severity Reaction Status Date / Time lisinopril Allergy Angioedema., Verified 07/29/22 19:32 swollen testicle, rash Physical Exam Vitals: Vital Signs Temp Pulse Resp BP Pulse Ox 08/02/22 09:00 81 16 08/02/22 08:00 98.0 F 80 17 152/77 08/02/22 07:00 77 21 08/02/22 06:00 73 8 L 08/02/22 05:00 72 10 L 08/02/22 04:00 98.2 F 70 14 149/72 93 L 08/02/22 03:00 75 17 159/82 08/02/22 02:00 76 10 L 151/75 08/02/22 01:00 97.3 F L 78 17 151/75 95 08/01/22 22:00 78 17 169/84 94 L 08/01/22 21:00 75 11 L 155/93 08/01/22 20:00 78 16 162/87 08/01/22 19:00 79 20 150/85 08/01/22 18:00 78 11 L 160/79 08/01/22 17:00 82 12 154/84 08/01/22 16:00 72 15 142/65 08/01/22 15:00 72 7 L 128/64 08/01/22 14:00 71 14 109/59 08/01/22 13:00 72 13 115/57 08/01/22 12:00 98.4 F 65 15 136/62 98 08/01/22 11:00 64 13 135/66 Intake and Output 08/01/22 08/02/22 08/02/22 22:59 06:59 14:59 Output Total 700 550 Balance -700 -550 Output: Urine 700 550 Other: Voiding Method Indwelling Catheter Indwelling Catheter Weight 51.7 kg Results - Lab Results Most recent lab results ABG pH 7.39 (7.35-7.45) 07/31/22 05:50 ABG pCO2 42 mmHg (35-45) 07/31/22 05:50 ABG pO2 124 mmHg (83-108) H 07/31/22 05:50 ABG HCO3 25 mmol/L (21-25) 07/31/22 05:50 ABG O2 Saturation 99.4 % (94-97) H 07/31/22 05:50 Calcium 8.0 mg/dL (8.4-10.2) L 08/02/22 03:19 Magnesium 2.2 mg/dL (1.6-2.3) 07/29/22 20:09 08/02/22 03:11 08/02/22 03:19 Assessment and Plan Plan: Assessment: 1. Chronic kidney disease stage IV secondary to nephrosclerosis/ischemic nephropathy with baseline creatinine in the range of 2.5-3. Renal ultrasound from August 2021 showed atrophic left kidney with bladder tumor. 2. Acute on chronic diastolic CHF. 3. Acute hypoxic respiratory failure status post extubation 07/31/2022. 4. Hypertension with chronic kidney disease. Status post nitro drip. Stable. 5. History of bladder cancer. States he completed chemotherapy about a month ago. 6. Anemia of chronic kidney disease. Rule out iron deficiency. Plan: Maintain oral Lasix. Encourage oral intake. Low-salt diet. Increase dose of hydralazine to 100 mg 3 times daily. Hold for systolic blood pressure less than 120. Check urinalysis. Check renal ultrasound. Avoid nephrotoxins. Patient advised to follow up outpatient 1 week post discharge. He was also advised to monitor his weight closely at home and to notify physician if develops edema or gains more than 3 pounds in 1 week duration. Thank you for the consultation. I will continue to follow this patient with you during his hospital stay.
--- NOTE | 2022-08-02 11:32 | P.PN ---
Subjective Progress Note Date: 08/02/22 Patient states that he is feeling well. He wants to know what caused his shortness of breath. I told patient that myself and other specialties believe that it is likely due to hypertension urgency causing flash pulmonary edema. I also told the patient that he does have a acute kidney injury that was caused by the aggressive diuretics we gave him initially when he came in. Patient otherwise feels well and is looking forward to going home. Objective - Vital Signs Vital signs: Vital Signs Temp 98.0 F 08/02/22 08:00 Pulse 81 08/02/22 09:00 Resp 16 08/02/22 09:00 BP 152/77 08/02/22 08:00 Pulse Ox 93 L 08/02/22 04:00 FiO2 40 07/31/22 08:00 Intake & Output 08/01/22 08/02/22 08/02/22 18:59 06:59 18:59 Intake Total 440 Output Total 1215 830 Balance -775 -830 Weight 51.7 kg Intake: Intake, IV Titration 200 Amount Potassium Chloride 10 meq 200 In Water For Injection 1 100ml.bag @ 100 mls/hr IVPB Q1H [facility] Rx#: [id number] Oral 240 Output: Urine 1215 830 Other: Voiding Method Indwelling Catheter Indwelling Catheter Indwelling Catheter - Exam General examination - no acute distress, appears chronically debilitated Heart - + S1S2 no murmurs Lungs - diminished but does bilaterally Abdomen soft NT ND +ve BS Extremities - No edema [employer] -no focal deficits, following commands Psych - calm and appropriate - Labs CBC & Chem 7: 08/02/22 03:11 08/02/22 03:19 Labs: Abnormal Lab Results - Last 24 Hours (Table) 08/01/22 08/01/22 08/02/22 Range/Units 11:55 20:17 03:11 RBC 2.80 L 2.77 L (4.30-5.90) m/uL Hgb 9.3 L 9.4 L (13.0-17.5) gm/dL Hct 29.8 L 29.2 L (39.0-53.0) % MCV 106.5 H 105.4 H (80.0-100.0) fL BUN (9-20) mg/dL Creatinine (0.66-1.25) mg/dL POC Glucose (mg/dL) 193 H (70-110) mg/dL Calcium (8.4-10.2) mg/dL 08/02/22 Range/Units 03:19 RBC (4.30-5.90) m/uL Hgb (13.0-17.5) gm/dL Hct (39.0-53.0) % MCV (80.0-100.0) fL BUN 64 H (9-20) mg/dL Creatinine 3.05 H (0.66-1.25) mg/dL POC Glucose (mg/dL) (70-110) mg/dL Calcium 8.0 L (8.4-10.2) mg/dL Microbiology - Last 24 Hours (Table) 07/30/22 00:29 Gram Stain - Final Sputum Sputum Culture - Final Assessment and Plan Assessment: Acute hypoxic respiratory failure requiring intubation Acute hypoxic and hypercapnic respiratory failure Likely due to pulmonary edema secondary to hypertensive emergency -Patient extubated on 07/31/2022 -Patient transition to home dose Lasix 40 mg twice a day -Chest x-ray on 08/01/2022 showed improvement. He does show some chronic changes which is likely due to underlying ILD. -Patient now on room air Hypertension urgency -Patient off nitro drip -Patient started on Coreg, Imdur and hydralazine -Blood pressure elevated this morning. Hydralazine increased to 100 mg 3 times a day -Cardiology ordered renal arterial ultrasound to rule out renal artery stenosis COPD History of ILD -Stable Type II CO -Cardiology on board -Per cardiology no evidence of acute coronary syndrome -Resume aspirin and statin Hyperlipidemia -Resume GERD -Resume Pepcid Acute kidney injury on Chronic kidney disease stage IV likely due to diuretics -Creatinine baseline around 2.5-3 -Creatinine this morning is 3.05 -Monitor renal function closely while on diuretics -Patient is making good urine output -Nephrology consult. Renal ultrasound ordered -Continue to monitor BMP -Worsening BPH -Resume Flomax Iron deficiency anemia Patient currently having no overt signs of bleeding He'll need close follow up outpatient with his PCP especially since he has a history of colon cancer Trend CBC History of colon cancer with resection in 2017 History of bladder cancer status post chemoradiation History of cardiac arrest in 2019 -stable Prognosis is guarded Anticipated patient be ready for discharge home in the next 24 hours if his renal function is stable and his renal ultrasound and renal artery ultrasound are unremarkable.
--- NOTE | 2022-08-02 11:39 | P.PN ---
Subjective Progress Note Date: 08/02/22 Principal diagnosis: Acute hypoxic respiratory failure requiring intubation and mechanical ventilation secondary to acute pulmonary edema secondary to hypertensive emergency and acute exacerbation of COPD This is a 72-year-old male patient, who was discharged from the hospital approximately 3 weeks ago after being treated for shortness of breath and was attributed to a combination of COPD and CHF and ILD was also suspected during this last admission. The patient was discharged to be readmitted yesterday because of acute shortness of breath. The patient was at a gas station and he was pumping gas and he felt short of breath probably while inhaling the gas fumes. He presented to the emergency department he was hypoxic with a pulse ox of 70% on room air oxygen. He was even bronchodilators and steroids and diuretics in the emergency without any improvement. He was briefly placed on a BiPAP and following that he. All those measures and the patient was intubated a nd placed on a mechanical ventilator. Note that his blood pressure was considerably elevated and the patient was having hypertensive emergency with a BP of 233/135. Initial chest x-ray showed diffuse bilateral pulmonary infiltrates reticulonodular appearance. His troponin was 0.08. His proBNP le jerry was 100,000. COVID 19 testing was negative. Influenza screen was negative. The rest of the blood work showed chronic stage IV kidney disease with a creatinine of 2.35 and a BUN of 42. Serum bicarb was at 18. Sodium level was at 136. The white cell count was 11.3 with hemoglobin 10.4 and a platelet count of 297. The EKG showed no acute abnormalities. His cardiac rhythm was sinus. He did have Q waves over the anterior leads and voltage criteria of LVH. No acute ST segment elevations or depressions. Post intubation, the patient was placed on propofol improvement was running at 50 mcg/kg per minute. His blood pressure is essentially normalized and the patient was given nitroglycerin drip which was ultimately titrated off and discontinued. He is on a mechanical ventilator. His oxidation is improved. He is currently on assist control mode at the rate of 18 with a tidal volume of 500 and FiO2 of 40% with a PEEP of 10. I dropped his PEEP down to 5 accordingly. His most recent blood gas while being on a 80% FiO2 showed a pH of 7.38 with a pCO2 of 39 and pO2 of 295. Troponins peaked at 0.16. No fever. No leukocytosis. The patient has been off amiodarone for almost 4 weeks. On 07/31/2022, the patient is an much better condition. He continues to diurese well and the patient remains a negative fluid balance as the patient had flash pulmonary edema. The chest x-ray showing improvement in the volume status and there is some residual edema noted on today's chest x-ray although much improved based on the origin x-ray at the time of diagnosis. The patient was on propofol this morning at 70 mcg/kg per minute. Overnight, his condition was essentially uneventful. The patient's remain on a mechanical ventilator within assist- control mode with a tidal volume of 500 and the rate of 18 with an FiO2 of 40% and the PEEP was down to 5. The patient's blood gases from this morning showed a pH of 7.39 with a pCO2 of 42 and pO2 124. Was producing excellent amount of urine output. ProBNP level is down to 44,200. Creatinine is at 2.6 with a BUN of 54 and the sodium level of 139. White cell count is 6.3 with a hemoglobin of 8.0. The patient is receiving Lasix 60 mg IV every 12 hours. The patient is also on Coreg 25 mg by mouth twice a day. Blood pressure is slightly elevated and the most recent BP is 155/83. I'm going to restart gradually his antihypert ensive medication which includes a combination of hydralazine and nitrates. He remains on aspirin. His cardiac rhythm is sinus. No fever. No other issues otherwise for now. No feeding. The patient has an NG tube in place. 08/01/2022, the patient is extubated and is doing very well at 3 L about 2 by nasal cannula. No specific complaints. He has diuresed more than 4 L and overall diuresis was in order of 5 L. He weaned off the mechanical ventilator without any major difficulties. This morning, he is normotensive, cardiac rhythm is sinus. Ceballos catheter still in place. The urine output is still adequate. BUN is at 60 with a creatinine of 2.8 and sodium is 143. Repeat chest x-ray from today shows improvement in the volume status although there is some underlying chronic lung disease probably the form of COPD. As mentioned, ILD is another consideration. The patient was started on hydralazine and nitrates and the patient is also on Coreg. Otherwise, no other significant torsten nts overnight. The patient is being given diet today. Potassium is to be replaced. The patient will be switched to oral Lasix 40 mg twice a day. He can be also downgraded. Reevaluated today on 08/02/2022, patient remains in the ICU, is presently on overflow, he is on room air, his chest x-ray showed dramatic improvement in his pulmonary edema, patient denies any cough wheezing or shortness of breath, remains on bronchodilators, remains on diuretics, significant improvement noted over the last 24 hours, and the patient tolerated extubation well, I plan to transfer the patient out of the ICU to a monitor bed on the cardiac floor. Objective - Vital Signs Vital signs: Vital Signs Temp 98.0 F 08/02/22 08:00 Pulse 81 08/02/22 09:00 Resp 16 08/02/22 09:00 BP 152/77 08/02/22 08:00 Pulse Ox 93 L 08/02/22 04:00 FiO2 40 07/31/22 08:00 Intake & Output 08/01/22 08/02/22 08/02/22 18:59 06:59 18:59 Intake Total 440 Output Total 1215 830 Balance -775 -830 Weight 51.7 kg Intake: Intake, IV Titration 200 Amount Potassium Chloride 10 meq 200 In Water For Injection 1 100ml.bag @ 100 mls/hr IVPB Q1H [facility] Rx#: [id number] Oral 240 Output: Urine 1215 830 Other: Voiding Method Indwelling Catheter Indwelling Catheter Indwelling Catheter - Exam Physical Exam: Revealed a 72-year-old white male in no distress on room air Head: Atraumatic, normocephalic. HEENT:[Neck is supple.] [No neck masses.] [No thyromegaly.] [No JVD.] Chest: [Clear throughout, no crackles, no rhonchi, no wheezes.] Cardiac Exam: [Normal S1 and S2, no S3 gallop, no murmur.] Abdomen: [Soft, nontender, no megaly, no rebound, no guarding, normal bowel sounds.] Extremities: [No clubbing, no edema, no cyanosis.] Neurological Exam: [No focal neurologic deficit.] Alert oriented 3 Psychiatric: Normal mood affect and normal mental status examination. Skin: No rashes - Labs CBC & Chem 7: 08/02/22 03:11 08/02/22 03:19 Labs: Abnormal Lab Results - Last 24 Hours (Table) 08/01/22 08/01/22 08/02/22 Range/Units 11:55 20:17 03:11 RBC 2.80 L 2.77 L (4.30-5.90) m/uL Hgb 9.3 L 9.4 L (13.0-17.5) gm/dL Hct 29.8 L 29.2 L (39.0-53.0) % MCV 106.5 H 105.4 H (80.0-100.0) fL BUN (9-20) mg/dL Creatinine (0.66-1.25) mg/dL POC Glucose (mg/dL) 193 H (70-110) mg/dL Calcium (8.4-10.2) mg/dL 08/02/22 Range/Units 03:19 RBC (4.30-5.90) m/uL Hgb (13.0-17.5) gm/dL Hct (39.0-53.0) % MCV (80.0-100.0) fL BUN 64 H (9-20) mg/dL Creatinine 3.05 H (0.66-1.25) mg/dL POC Glucose (mg/dL) (70-110) mg/dL Calcium 8.0 L (8.4-10.2) mg/dL Microbiology - Last 24 Hours (Table) 07/30/22 00:29 Gram Stain - Final Sputum Sputum Culture - Final Assessment and Plan Assessment: Impression: Acute hypoxic respiratory failure secondary to acute pulmonary edema secondary to hypertensive emergency Nonischemic cardiomyopathy Nonocclusive coronary artery disease Underlying COPD Ex-smoker History of bladder cancer History of colon cancer with previous resection in 2017 Dyslipidemia GERD without esophagitis History of cardiac arrest in 2020 Chronic kidney disease stage IV Chronic anemia Recommendation: Transfer to a cardiac floor today Continue incentive spirometry Continue good control of blood pressure Continue diuretics/Lasix Continue bronchodilators Will follow and possible discharge planning in the next 24 hours if cleared by cardiology Time with Patient: Less than 30
[2022-08-02 11:45] LABS: Appearance,Urine Clear (Clear); Bacteria,Urine Rare /hpf; Bilirubin,Urine Negative (Negative); Blood,Urine Negative (Negative); Color,Urine Light Yellow; Glucose,Urine (UA) Negative (Negative); Ketones,Urine Negative (Negative); Leukocyte Esterase,Urine Small (Negative); Mucus,Urine Rare /hpf; Nitrite,Urine Negative (Negative); Protein,Urine Trace (Negative); RBC,Urine 2 /hpf (0-5); Specific Gravity,Urine 1.009 (1.001-1.035); Squamous Epithelial Cell,Urine <1 /hpf (0-4); Urobilinogen,Urine <2.0 mg/dL (<2.0); WBC,Urine 4 /hpf (0-5)
[2022-08-02 11:54] LABS: Glucose,Whole Blood 132 mg/dL (70-110)
--- NOTE | 2022-08-02 13:29 | US ---
EXAMINATION TYPE: US renal artery duplex complet DATE OF EXAM: 08/02/2022 COMPARISON: NONE CLINICAL HISTORY: re: rule out renal artery stenosis. Uncontrolled HTN MEASUREMENTS: RENAL SIZE: Rt Kidney: 11.2 x 4.2 x 4.6 cm Lt Kidney: 6.6 x 3.3 x 2.9 cm RESISTANCE INDEX Right: 0.6 Left: 0.7 RA/AO RATIO (< 3.5 ) Right: 2.2 Left: 1.2 RA VELOCITY ( < 180 cm/s) Right: 145.3 Left: 77 Right kidney appeared wnl, without evidence of renal artery stenosis Left kidney appeared atrophic, unable to visualize perfusion of blood flow and unable to visualize left renal artery in completion- limited views show no evidence of stenosis Incidental finding cystic lesion within spleen= 1.9 x 1.5 x 1.8 cm IMPRESSION: 1. No evidence of right-sided renal artery stenosis. 2. Limited assessment of the left kidney due to atrophy and difficulty visualizing the vasculature. 3. incidental note made of a 1.9 cm cystic lesion of the spleen which could be correlated with CT sca n.
[2022-08-02 20:21] LABS: Glucose,Whole Blood 126 mg/dL (70-110)
[2022-08-02] MEDS: QUEtiapine 50 MG TAB PO SCH (20:36)
[2022-08-02] MEDS: ATORVASTATIN 20 MG TAB PO SCH (20:36)
[2022-08-02] MEDS: MIRTAZAPINE 15 MG TAB PO SCH (20:37)
[2022-08-03 06:57] LABS: Glucose,Whole Blood 112 mg/dL (70-110)
[2022-08-03] MEDS: carvediloL 12.5 MG TAB PO SCH (07:00)
--- NOTE | 2022-08-03 07:02 | P.PN ---
Subjective PROGRESS NOTE The patient is a 72-year-old male who presented was progressive dyspnea, requiring mechanical ventilation. He has a known history of nonischemic cardiomyopathy that improved, prior history of ventricle tachycardia, he has been off amiodarone for possible lung injury. He remains intubated and sedated. Hemodynamically he is stable. There is no evidence of ventricle tachycardia. His urine output has been stable. His blood pressure is stable. His echocardiogram in May revealed a preserved systolic function. His chest x-ray shows significant improvement in his infiltrate, suggestive of fluid overload. August 01: The patient is extubated, feeling well, denies any chest discomfort, dizziness or palpitations. He is in sinus mechanism. His urine output has been stable. He denies dyspnea, nausea or vomiting. He is taking by mouth. His blood pressure is under better control. 08/02 Patient seen and examined. Denies any chest pain or pressure. States that shortness of breath appears close to baseline. Blood pressures somewhat more elevated in the 150s to 160s. Admits to labile blood pressures at home however often in the 180s. On presentation systolic was in the 200 to 2:30 range which likely is cause of his exacerbation. 08/03 Patient seen and examined. Renal ultrasound with atrophic left kidney which can be seen with renal artery stenosis however no significant stenosis noted however left renal artery not clearly identified. His losartan has been held which sometimes can worsen flash pulmonary edema with MARIELA and blood pressure somewhat improved on hydralazine. PHYSICAL EXAMINATION: Vitals reviewed LUNGS: Clear to auscultation HEART: Regular rate and rhythm, S1, S2. No S3. No systolic murmur ABDOMEN: Soft, nontender, no organomegaly EXTREMETIES: No edema IMPRESSION: 1. Respiratory failure with acute dyspnea, probably combination of exacerbation of COPD and heart failure with preserved systolic function, resolved. Likely exacerbated by extreme hypertension 2. Mild troponin elevation, type II event 3. Prior history of DVT, stable 4. Hypertension labile 5. Acute on chronic renal failure 6. Anemia 7. Possible interstitial lung disease, rule out amiodarone toxicity although there is significant improvement in his chest x-ray 8. Atrophic left kidney PLAN: Patient with acute onset respiratory distress after smelling some gas and may be pulmonary component however suspicion of flash pulmonary edema with extremely elevated blood pressures. Consideration of possible renal artery stenosis with atrophic appearing left kidney however no significant stenosis noted by renal ul trasound however left renal artery not clearly visualized. Increased risk of any contrast and continue to monitor, consider further outpatient testing. Patient appears stable for discharge home today. We'll continue to hold losartan going home as this can sometimes exacerbate renal artery stenosis/flash pulmonary edema. Objective - Vital Signs Vital signs: Vital Signs Temp 98.7 F 08/03/22 04:00 Pulse 87 08/03/22 04:00 Resp 20 08/03/22 04:00 BP 143/93 08/03/22 04:00 Pulse Ox 98 08/03/22 00:00 FiO2 40 07/31/22 08:00 Intake & Output 08/02/22 08/02/22 08/03/22 06:59 18:59 06:59 Output Total 936 450 9433 Balance -830 -900 -1550 Weight 51.7 kg 53 kg Output: Urine 884 973 5679 Other: Voiding Method Indwelling Catheter Indwelling Catheter Toilet # Voids 2 - Labs CBC & Chem 7: 08/02/22 03:11 08/02/22 03:19 Labs: Abnormal Lab Results - Last 24 Hours (Table) 08/02/22 08/02/22 08/02/22 Range/Units 11:21 11:52 20:09 POC Glucose (mg/dL) 132 H 126 H (70-110) mg/dL Urine Protein Trace H (Negative) Ur Leukocyte Esterase Small H (Negative) Urine Bacteria Rare H (None) /hpf Urine Mucus Rare H (None) /hpf
[2022-08-03 07:05] LABS: Basophils % (A) 1 %; Eosinophils # (A) 0.2 k/uL (0-0.7); Eosinophils % (A) 4 %; HGB 10.6 gm/dL (13.0-17.5); Hypochromasia Slight; Lymphocytes # (A) 0.7 k/uL (1.0-4.8); Lymphocytes % (A) 11 %; MCH 33.3 pg (25.0-35.0); Macrocytosis Slight; Mean Platelet Volume 7.7; Monocytes # (A) 0.5 k/uL (0-1.0); Monocytes % (A) 8 %; Neutrophils # (A) 4.8 k/uL (1.3-7.7); Neutrophils % (A) 76 %; Platelet Count 273 k/uL (150-450); RBC 3.17 m/uL (4.30-5.90); WBC 6.3 k/uL (3.8-10.6)
[2022-08-03 07:16] LABS: Calcium 8.2 mg/dL (8.4-10.2); Potassium 3.4 mmol/L (3.5-5.1)
[2022-08-03] MEDS ORDERED: POTASSIUM CHLORIDE ER 20 MEQ TAB.ER PO STA (07:44)
[2022-08-03 08:03] VITALS: BP 153/85; PULSE 80; RESP 15; TEMP 97.9
[2022-08-03] MEDS: ISOSORBIDE MONONITRATE ER 30 MG TAB.ER.24H PO SCH (08:04)
[2022-08-03] MEDS: ASPIRIN 81 MG PO SCH (08:04)
[2022-08-03] MEDS: FAMOTIDINE 20 MG TAB PO SCH (08:04)
[2022-08-03] MEDS: hydrALAZINE HCL 50 MG TAB PO SCH (08:04)
[2022-08-03] MEDS: FUROSEMIDE 40 MG TAB PO SCH (08:04)
[2022-08-03] MEDS: TAMSULOSIN 0.4 MG CAP.ER.24H PO SCH (08:04)
--- NOTE | 2022-08-03 09:18 | P.PN ---
Subjective Patient is seen in follow-up for acute kidney injury on chronic kidney disease. Renal function better. On room air. Denies chest pain or shortness of breath. Good urine output. Vital signs are stable. General: Awake. No acute distress. HEENT: Head exam is unremarkable. LUNGS: Breath sounds decreased. HEART: Rate and Rhythm are regular. Delete ABDOMEN: Soft, no distention. EXTREMITITES: No edema. Objective - Vital Signs Vital signs: Vital Signs Temp 97.9 F 08/03/22 08:00 Pulse 80 08/03/22 08:00 Resp 15 08/03/22 08:00 BP 153/85 08/03/22 08:00 Pulse Ox 98 08/03/22 08:00 FiO2 40 07/31/22 08:00 Intake & Output 08/02/22 08/03/22 08/03/22 18:59 06:59 18:59 Output Total 900 1550 Balance -900 -1550 Weight 53 kg Output: Urine 900 1550 Other: Voiding Method Indwelling Catheter Toilet # Voids 2 - Labs CBC & Chem 7: 08/03/22 06:50 08/03/22 06:50 Labs: Abnormal Lab Results - Last 24 Hours (Table) 08/02/22 08/02/22 08/02/22 Range/Units 11:21 11:52 20:09 RBC (4.30-5.90) m/uL Hgb (13.0-17.5) gm/dL Hct (39.0-53.0) % MCV (80.0-100.0) fL Lymphocytes # (1.0-4.8) k/uL Potassium (3.5-5.1) mmol/L BUN (9-20) mg/dL Creatinine (0.66-1.25) mg/dL POC Glucose (mg/dL) 132 H 126 H (70-110) mg/dL Calcium (8.4-10.2) mg/dL Urine Protein Trace H (Negative) Ur Leukocyte Esterase Small H (Negative) Urine Bacteria Rare H (None) /hpf Urine Mucus Rare H (None) /hpf 08/03/22 08/03/22 08/03/22 Range/Units 06:50 06:50 06:55 RBC 3.17 L (4.30-5.90) m/uL Hgb 10.6 L (13.0-17.5) gm/dL Hct 33.0 L (39.0-53.0) % MCV 104.0 H (80.0-100.0) fL Lymphocytes # 0.7 L (1.0-4.8) k/uL Potassium 3.4 L (3.5-5.1) mmol/L BUN 58 H (9-20) mg/dL Creatinine 2.47 H (0.66-1.25) mg/dL POC Glucose (mg/dL) 112 H (70-110) mg/dL Calcium 8.2 L (8.4-10.2) mg/dL Urine Protein (Negative) Ur Leukocyte Esterase (Negative) Urine Bacteria (None) /hpf Urine Mucus (None) /hpf Assessment and Plan Plan: Assessment: 1. Chronic kidney disease stage IV secondary to nephrosclerosis/ischemic nephropathy with baseline creatinine in the range of 2.5-3. Renal ultrasound from August 2021 showed atrophic left kidney with bladder tumor. Renal ultrasound from this admission shows atrophic left kidney with no evidence of renal artery stenosis and right kidney. UA fairly benign. 2. Acute on chronic diastolic CHF. 3. Acute hypoxic respiratory failure status post extubation 07/31/2022. 4. Hypertension with chronic kidney disease. Status post nitro drip. Stable. 5. History of bladder cancer. States he completed chemotherapy about a month ago. 6. Anemia of chronic kidney disease. Iron deficiency noted. 7. Hypokalemia from diuresis. Replaced. Plan: Maintain oral Lasix. Encourage oral intake. Low-salt diet. Add amlodipine 5 mg once daily. Add maintenance potassium supplementation. Avoid nephrotoxins. Patient advised to follow up outpatient 1 week post discharge. He was also advised to monitor his weight closely at home and to notify physician if develops edema or gains more than 3 pounds in 1 week duration.
[2022-08-03] MEDS ORDERED: amLODIPine 5 MG TAB PO SCH (09:30)
--- NOTE | 2022-08-03 10:25 | P.DS ---
Providers Date of admission: 07/29/22 22:53 Expected date of discharge: 08/03/22 Attending physician: No Yang MD Consults: 07/29/22 22:56 Consult Physician Stat Consulting Provider: Fanny Tee Consult Reason/Comments: acute vent dependant resp failure, AECHF, AECOPD Do you want consulting provider notified?: Already Contacted Consult Physician Urgent Consulting Provider: [facility] Consult Reason/Comments: AECHF Do you want consulting provider notified?: Yes 08/02/22 07:49 Consult Physician Routine Consulting Provider: Jaqueline Leija Consult Reason/Comments: BEVERLY Do you want consulting provider notified?: Yes Primary care physician: [facility] Course: Patient is a 72-year-old male with PMH of diastolic CHF, COPD, history of cardiac arrest secondary to ventricular tachycardia, hypertension, dyslipidemia, chronic kidney disease stage IV, colon and bladder cancer initially presented to the ED for shortness of breath. He was initiated on nebulized breathing treatments and BiPAP in the ED. He was noted to have an SPEP in the 230s. Unfortunately, he rapidly progressed/pulmonary edema requiring intubation and nitroglycerin drip. He was subsequently transferred to the ICU. Patient was started on Lasix IV. He was extubated on 08/01/2022. He was able to be weaned off oxygen. Cardiology, pulmonology, nephrology was consulted and followed the patient during his hospitalization. His blood pressure is controlled with Coreg 25 mg by mouth twice a day, hydralazine 100 mg by mouth 3 times a day, Imdur 30 mg by mouth daily. Lasix IV was transitioned to Lasix 40 mg by mouth twice a day. Losartan was discontinued due to chronic kidney disease. Renal artery duplex showed no evidence of right-sided renal artery stenosis, limited assessment of the left kidney due to atrophy and difficulty visualizing the vasculature. Patient was seen and examined. No acute events overnight. He is a potassium of 3.4 this morning which was replaced with potassium chloride 40 mEq by mouth. His renal function has improved since yesterday and his creatinine at the time of discharge was 2.47. He is advised to follow-up with h is PCP within 1-2 days of discharge. He is advised follow-up with cardiology within 1 week of discharge. He is advised to follow up with Nephrology within 1 week of discharge. He does have a hemoglobin of 10.6 for which he was advised follow-up with his PCP especially with his history of colon and bladder cancer. Patient verbalized understanding of the plan. General: non toxic, no distress, appears at stated age Derm: warm, dry Head: atraumatic, normocephalic, symmetric Eyes: EOMI, no lid lag, anicteric sclera Mouth: no lip lesion, mucus membranes moist Cardiovascular: S1S2 reg, no murmur Lungs: CTA bilateral, no rhonchi, no rales , no accessory muscle use Ext: no gross muscle atrophy, no edema, no contractures Neuro: no focal neuro deficits Psych: Alert, oriented, appropriate affect Discharge diagnosis: Acute hypoxic respiratory failure requiring intubation Acute hypoxic and hypercapnic respiratory failure Hypertension urgency COPD History of ILD Type II ME Hyperlipidemia Acute kidney injury on Chronic kidney disease stage IV likely due to diuretics BPH Iron deficiency anemia History of colon cancer with resection in 2017 History of bladder cancer status post chemoradiation History of cardiac arrest in 2019 This complex discharge took 37 minutes to complete. Pertinent Studies: CXR Renal artery duplex Patient Condition at Discharge: Stable Plan - Discharge Summary New Discharge Prescriptions: New amLODIPine [Norvasc] 5 mg PO DAILY #30 tab Continue Tamsulosin [Flomax] 0.4 mg PO DAILY Multivitamins, Thera [Multivitamin (formulary)] 1 tab PO DAILY Famotidine [Pepcid] 20 mg PO BID Atorvastatin Calcium [Lipitor] 20 mg PO HS Nitroglycerin Sl Tabs 0.3mg 0.3 mg SL Q5M PRN PRN Reason: Chest Pain Mirtazapine [Remeron] 30 mg PO HS Potassium Chloride ER [K-Dur 20] 20 meq PO DAILY #14 tab Albuterol Inhaler [Ventolin Hfa Inhaler] 1 - 2 puff INHALATION RT-Q6H PRN 30 Days #1 dispenser PRN Reason: Shortness Of Breath Cyanocobalamin [Vitamin B-12] 1,000 mcg PO DAILY #30 tab hydrALAZINE HCL [Apresoline] 100 mg PO TID #90 tab Isosorbide Mononitrate ER [Imdur] 30 mg PO DAILY 30 Days #30 tab Furosemide [Lasix] 40 mg PO BID@0900,1600 #60 tab Fluticasone Propion/Salmeterol [Wixela 250-50 Inhub] 1 puff INHALATION RT-BID Melatonin 5 mg PO HS QUEtiapine [SEROquel] 150 mg PO HS Acetaminophen Tab [Tylenol] 650 mg PO Q6HR PRN tab PRN Reason: Mild Pain Or Fever > 100.5 Aspirin 81 mg PO DAILY #30 tab carvediloL [Coreg*] 25 mg PO BID-W/MEALS #60 tab Discontinued Losartan [Cozaar] 50 mg PO DAILY HYDROcodone/APAP 10-325MG [[place] 10-325] 1 tab PO Q8H PRN #9 tab PRN Reason: Pain Discharge Medication List Tamsulosin [Flomax] 0.4 mg PO DAILY 06/04/16 [History] Famotidine [Pepcid] 20 mg PO BID 06/08/20 [History] Multivitamins, Thera [Multivitamin (formulary)] 1 tab PO DAILY 06/08/20 [History] Atorvastatin Calcium [Lipitor] 20 mg PO HS 06/24/21 [History] Fluticasone Propion/Salmeterol [Wixela 250-50 Inhub] 1 puff INHALATION RT-BID 08/27/21 [History] Melatonin 5 mg PO HS 05/31/22 [History] Mirtazapine [Remeron] 30 mg PO HS 05/31/22 [History] Nitroglycerin Sl Tabs 0.3mg 0.3 mg SL Q5M PRN 05/31/22 [History] QUEtiapine [SEROquel] 150 mg PO HS 05/31/22 [History] Acetaminophen Tab [Tylenol] 650 mg PO Q6HR PRN tab 06/05/22 [Rx] Aspirin 81 mg PO DAILY #30 tab 06/12/22 [Rx] Potassium Chloride ER [K-Dur 20] 20 meq PO DAILY #14 tab 06/12/22 [Rx] Albuterol Inhaler [Ventolin Hfa Inhaler] 1 - 2 puff INHALATION RT-Q6H PRN 30 Days #1 dispenser 06/26/22 [Rx] Cyanocobalamin [Vitamin B-12] 1,000 mcg PO DAILY #30 tab 07/12/22 [Rx] Furosemide [Lasix] 40 mg PO BID@0900,1600 #60 tab 08/03/22 [Rx] Isosorbide Mononitrate ER [Imdur] 30 mg PO DAILY 30 Days #30 tab 08/03/22 [Rx] amLODIPine [Norvasc] 5 mg PO DAILY #30 tab 08/03/22 [Rx] carvediloL [Coreg*] 25 mg PO BID-W/MEALS #60 tab 08/03/22 [Rx] hydrALAZINE HCL [Apresoline] 100 mg PO TID #90 tab 08/03/22 [Rx] Follow up Appointment(s)/Referral(s): Viraj Joshi DO [STAFF PHYSICIAN] - 08/09/22 9:30 am [facility] [Primary Care Provider] - 1-2 days ([facility] will call you with an appointment time and date when available) Brenden Do DO [STAFF PHYSICIAN] - 1 Week Patient Instructions/Handouts: COPD (Chronic Obstructive Pulmonary Disease) (DC) Activity/Diet/Wound Care/Special Instructions: Diet: Cardiac FU PCP within 1-2 days of DC. FU with Cardiology within 1 week of DC. Take all medications as advised. Follow low salt diet. Discharge Disposition: HOME SELF-CARE
--- NOTE | 2022-08-03 13:06 | P.PN ---
Subjective Progress Note Date: 08/03/22 Principal diagnosis: Acute hypoxic respiratory failure requiring intubation and mechanical ventilation secondary to acute pulmonary edema secondary to hypertensive emergency and acute exacerbation of COPD This is a 72-year-old male patient, who was discharged from the hospital approximately 3 weeks ago after being treated for shortness of breath and was attributed to a combination of COPD and CHF and ILD was also suspected during this last admission. The patient was discharged to be readmitted yesterday because of acute shortness of breath. The patient was at a gas station and he was pumping gas and he felt short of breath probably while inhaling the gas fumes. He presented to the emergency department he was hypoxic with a pulse ox of 70% on room air oxygen. He was even bronchodilators and steroids and diuretics in the emergency without any improvement. He was briefly placed on a BiPAP and following that he. All those measures and the patient was intubated a nd placed on a mechanical ventilator. Note that his blood pressure was considerably elevated and the patient was having hypertensive emergency with a BP of 233/135. Initial chest x-ray showed diffuse bilateral pulmonary infiltrates reticulonodular appearance. His troponin was 0.08. His proBNP le jerry was 100,000. COVID 19 testing was negative. Influenza screen was negative. The rest of the blood work showed chronic stage IV kidney disease with a creatinine of 2.35 and a BUN of 42. Serum bicarb was at 18. Sodium level was at 136. The white cell count was 11.3 with hemoglobin 10.4 and a platelet count of 297. The EKG showed no acute abnormalities. His cardiac rhythm was sinus. He did have Q waves over the anterior leads and voltage criteria of LVH. No acute ST segment elevations or depressions. Post intubation, the patient was placed on propofol improvement was running at 50 mcg/kg per minute. His blood pressure is essentially normalized and the patient was given nitroglycerin drip which was ultimately titrated off and discontinued. He is on a mechanical ventilator. His oxidation is improved. He is currently on assist control mode at the rate of 18 with a tidal volume of 500 and FiO2 of 40% with a PEEP of 10. I dropped his PEEP down to 5 accordingly. His most recent blood gas while being on a 80% FiO2 showed a pH of 7.38 with a pCO2 of 39 and pO2 of 295. Troponins peaked at 0.16. No fever. No leukocytosis. The patient has been off amiodarone for almost 4 weeks. On 07/31/2022, the patient is an much better condition. He continues to diurese well and the patient remains a negative fluid balance as the patient had flash pulmonary edema. The chest x-ray showing improvement in the volume status and there is some residual edema noted on today's chest x-ray although much improved based on the origin x-ray at the time of diagnosis. The patient was on propofol this morning at 70 mcg/kg per minute. Overnight, his condition was essentially uneventful. The patient's remain on a mechanical ventilator within assist- control mode with a tidal volume of 500 and the rate of 18 with an FiO2 of 40% and the PEEP was down to 5. The patient's blood gases from this morning showed a pH of 7.39 with a pCO2 of 42 and pO2 124. Was producing excellent amount of urine output. ProBNP level is down to 44,200. Creatinine is at 2.6 with a BUN of 54 and the sodium level of 139. White cell count is 6.3 with a hemoglobin of 8.0. The patient is receiving Lasix 60 mg IV every 12 hours. The patient is also on Coreg 25 mg by mouth twice a day. Blood pressure is slightly elevated and the most recent BP is 155/83. I'm going to restart gradually his antihypert ensive medication which includes a combination of hydralazine and nitrates. He remains on aspirin. His cardiac rhythm is sinus. No fever. No other issues otherwise for now. No feeding. The patient has an NG tube in place. 08/01/2022, the patient is extubated and is doing very well at 3 L about 2 by nasal cannula. No specific complaints. He has diuresed more than 4 L and overall diuresis was in order of 5 L. He weaned off the mechanical ventilator without any major difficulties. This morning, he is normotensive, cardiac rhythm is sinus. Ceballos catheter still in place. The urine output is still adequate. BUN is at 60 with a creatinine of 2.8 and sodium is 143. Repeat chest x-ray from today shows improvement in the volume status although there is some underlying chronic lung disease probably the form of COPD. As mentioned, ILD is another consideration. The patient was started on hydralazine and nitrates and the patient is also on Coreg. Otherwise, no other significant torsten nts overnight. The patient is being given diet today. Potassium is to be replaced. The patient will be switched to oral Lasix 40 mg twice a day. He can be also downgraded. Reevaluated today on 08/02/2022, patient remains in the ICU, is presently on overflow, he is on room air, his chest x-ray showed dramatic improvement in his pulmonary edema, patient denies any cough wheezing or shortness of breath, remains on bronchodilators, remains on diuretics, significant improvement noted over the last 24 hours, and the patient tolerated extubation well, I plan to transfer the patient out of the ICU to a monitor bed on the cardiac floor. Reevaluated today on 08/03/2022, patient remains in the ICU as an overflow, he is doing well, asymptomatic, patient is insisting to be discharged home. He was cleared already by cardiology, and pulmonary-sanchez the patient sounds fairly clear today, he is not in any distress, he is on room air, hence I will clear him to be discharged home today also. Objective - Vital Signs Vital signs: Vital Signs Temp 97.9 F 08/03/22 08:00 Pulse 80 08/03/22 08:00 Resp 15 08/03/22 08:00 BP 153/85 08/03/22 08:00 Pulse Ox 98 08/03/22 08:00 FiO2 40 07/31/22 08:00 Intake & Output 08/02/22 08/03/22 08/03/22 18:59 06:59 18:59 Output Total 900 1550 Balance -900 -1550 Weight 53 kg Output: Urine 900 1550 Other: Voiding Method Indwelling Catheter Toilet # Voids 2 - Exam Physical Exam: Revealed a 72-year-old white male in no distress on room air Head: Atraumatic, normocephalic. HEENT:[Neck is supple.] [No neck masses.] [No thyromegaly.] [No JVD.] Chest: [Clear throughout, no crackles, no rhonchi, no wheezes.] Cardiac Exam: [Normal S1 and S2, no S3 gallop, no murmur.] Abdomen: [Soft, nontender, no megaly, no rebound, no guarding, normal bowel sounds.] Extremities: [No clubbing, no edema, no cyanosis.] Neurological Exam: [No focal neurologic deficit.] Alert oriented 3 Psychiatric: Normal mood affect and normal mental status examination. Skin: No rashes - Labs CBC & Chem 7: 08/03/22 06:50 08/03/22 06:50 Labs: Abnormal Lab Results - Last 24 Hours (Table) 08/02/22 08/03/22 08/03/22 Range/Units 20:09 06:50 06:50 RBC 3.17 L (4.30-5.90) m/uL Hgb 10.6 L (13.0-17.5) gm/dL Hct 33.0 L (39.0-53.0) % MCV 104.0 H (80.0-100.0) fL Lymphocytes # 0.7 L (1.0-4.8) k/uL Potassium 3.4 L (3.5-5.1) mmol/L BUN 58 H (9-20) mg/dL Creatinine 2.47 H (0.66-1.25) mg/dL POC Glucose (mg/dL) 126 H (70-110) mg/dL Calcium 8.2 L (8.4-10.2) mg/dL 08/03/22 Range/Units 06:55 RBC (4.30-5.90) m/uL Hgb (13.0-17.5) gm/dL Hct (39.0-53.0) % MCV (80.0-100.0) fL Lymphocytes # (1.0-4.8) k/uL Potassium (3.5-5.1) mmol/L BUN (9-20) mg/dL Creatinine (0.66-1.25) mg/dL POC Glucose (mg/dL) 112 H (70-110) mg/dL Calcium (8.4-10.2) mg/dL Assessment and Plan Assessment: Impression: Acute hypoxic respiratory failure secondary to acute pulmonary edema secondary to hypertensive emergency Nonischemic cardiomyopathy Nonocclusive coronary artery disease Underlying COPD Ex-smoker History of bladder cancer History of colon cancer with previous resection in 2017 Dyslipidemia GERD without esophagitis History of cardiac arrest in 2019 Chronic kidney disease stage IV Chronic anemia Recommendation: Agree with discharge planning Continue cardiac meds as ordered by cardiology including diuretics Continue bronchodilators Cleared for discharge from my perspective Time with Patient: Less than 30
[2022-08-04] MEDS ORDERED: POTASSIUM CHLORIDE ER 20 MEQ TAB.ER PO SCH (09:00)
== END 2022-08-03 10:29 | disposition home or self-care (01) | DRG 208 ==
LOC: EC 18:57 → 2SICU 22:53
PROVIDERS: ADMIT Internal Medicine; ATTEND Internal Medicine
PROC: 5A1945Z Respiratory Ventilation, 24-96 Consecutive Hours (ICD-10-PCS; principal; 2022-07-29)
PROC: 0BH17EZ Insertion of Endotracheal Airway into Trachea, Via Natural or Artificial Opening (ICD-10-PCS; principal; 2022-07-29)
PROC: 5A09357 Assistance with Respiratory Ventilation, Less than 24 Consecutive Hours, Continuous Positive Airway Pressure (ICD-10-PCS; 2022-07-29)
PROC: 0D9670Z Drainage of Stomach with Drainage Device, Via Natural or Artificial Opening (ICD-10-PCS; 2022-07-30)
DX: J96.01 Acute respiratory failure with hypoxia (principal); I50.33 Acute on chronic diastolic (congestive) heart failure; I21.A1 Myocardial infarction type 2; J44.1 Chronic obstructive pulmonary disease with (acute) exacerbation; N17.9 Acute kidney failure, unspecified; I42.8 Other cardiomyopathies; I13.0 Hypertensive heart and chronic kidney disease with heart failure and stage 1 through stage 4 chronic kidney disease, or unspecified chronic kidney disease; E87.2 Acidosis; J84.9 Interstitial pulmonary disease, unspecified; N18.4 Chronic kidney disease, stage 4 (severe); I16.1 Hypertensive emergency; J96.02 Acute respiratory failure with hypercapnia; I73.9 Peripheral vascular disease, unspecified; Z20.822 Contact with and (suspected) exposure to COVID-19; D63.1 Anemia in chronic kidney disease; E78.5 Hyperlipidemia, unspecified; N40.0 Benign prostatic hyperplasia without lower urinary tract symptoms; G25.81 Restless legs syndrome; I25.10 Atherosclerotic heart disease of native coronary artery without angina pectoris; E87.6 Hypokalemia; K64.9 Unspecified hemorrhoids; T50.2X5A Adverse effect of carbonic-anhydrase inhibitors, benzothiadiazides and other diuretics, initial encounter; K21.9 Gastro-esophageal reflux disease without esophagitis; F41.9 Anxiety disorder, unspecified; D50.9 Iron deficiency anemia, unspecified; G89.29 Other chronic pain; M54.50 Low back pain, unspecified; Z79.82 Long term (current) use of aspirin; Z79.899 Other long term (current) drug therapy; Z79.51 Long term (current) use of inhaled steroids; Z87.891 Personal history of nicotine dependence; Z85.51 Personal history of malignant neoplasm of bladder; Z92.21 Personal history of antineoplastic chemotherapy; Z92.3 Personal history of irradiation; Z98.1 Arthrodesis status; Z85.038 Personal history of other malignant neoplasm of large intestine; Z86.718 Personal history of other venous thrombosis and embolism; Z86.74 Personal history of sudden cardiac arrest; Z86.79 Personal history of other diseases of the circulatory system; Z88.8 Allergy status to other drugs, medicaments and biological substances; Z82.5 Family history of asthma and other chronic lower respiratory diseases
CPT/HCPCS: 36415; 36600; 71045; 80048; 80053; 81001; 82728; 82805; 83540; 83550; 83605; 83735; 83880; 84132; 84484; 85025; 85027; 85610; 85730; 87070; 87205; 87502; 87635; 93005; 93975; 94002; 94003; 94640; 94644; 94660; 96365; 96366; 96367; 96368; 96375; 99291

== ENCOUNTER → 2022-08-31 | Outpatient (CLI) | payer OTHER ==
--- NOTE | 2022-09-01 22:36 | CT ---
EXAMINATION TYPE: CT ChestAbdPelvis wo con DATE OF EXAM: 08/31/2022 COMPARISON: CT chest 07/11/2022, PET/CT 03/05/2022, CT body 11/02/2021 HISTORY: 72-year-old male C6 7.2, Follow up for malignant neoplasm of lateral wall of bladder TECHNIQUE: Contiguous axial scanning of the chest, abdomen, and pelvis without IV contrast. Coronal a nd sagittal reconstructions performed. CT DLP: 343.4 mGycm Automated exposure control for dose reduction was used. FINDINGS: CHEST: Heart normal size with small pericardial effusion measuring 8 mm thick, unchanged. Mild LAD and RCA c oronary calcifications are present. Mild to moderate atherosclerotic arch calcifications with conventional arch vessel branching anatomy. Ectatic upper descending thoracic aorta 3.4 cm and lower descending thoracic aorta at 2.9 cm. Subcarinal lymph node currently 1.1 cm short axis versus 1.2 cm, previously, not significantly change d. Numerous scattered nonenlarged mediastinal lymph nodes measuring up to 6 mm otherwise seen residen t to 8 mm, previously. No obvious increasing thoracic lymphadenopathy allowing for noncontrast techni que. There is moderate to advanced centrilobular emphysema. Mild groundglass and reticular change in the lower lungs especially at the right base and anterior le ft midlung where a subpleural pulmonary nodule is present measuring up to 1.4 cm, not significantly c hanged. ABDOMEN: A 1.7 cm hypodense lesion posterior spleen remains unchanged. 1.4 cm hypodense lesion segment 2/3 left liver lobe is also unchanged, likely a benign cyst. Otherwise, noncontrast appearance of the liver, gallbladder, adrenal glands, right kidney, and spleen show no gross abnormal body. Slight asymmetrically atrophic left kidney has a similar appearance. Moderate atherosclerotic calcifications abdominal aorta, more moderate to severe distal abdominal aor ta and proximal bilateral common iliac arteries. Possible severe segmental stenoses proximal and mid right common iliac artery. No dilated small bowel, free fluid, or free air. No mesenteric or retroperitoneal lymphadenopathy. Surgical material along the right side of the colon suggesting prior partial right hemicolectomy. The re is mild to moderate stool burden. Sigmoid diverticulosis. No pericolonic inflammatory change seen. PELVIS: Bladder partially urine distended. Mild circumferential bladder wall thickening remains unchanged. No obvious increasing wall thickening is apparent. Redemonstrated prostatomegaly up to 4.9 cm wide with some central calcifications. Scattered pelvic phleboliths. No abnormal fluid collection in the pelvi s or pelvic lymphadenopathy is seen. Unchanged 8 mm left inguinal lymph node. BONES: Osteopenia. Mild to moderate degenerative change of the hips. Cervical spondylosis throughout. Modera te degenerative disc disease L5-S1. Disc bulge at L4-L5 mildly narrowing the spinal canal. Facet arth ropathy mid to lower lumbar spine. IMPRESSION: 1. UNCHANGED 1.4 CM SUBPLEURAL PULMONARY NODULE ANTERIOR LEFT MIDLUNG. BACKGROUND OF COPD WITH MODERA TE TO ADVANCED EMPHYSEMA. 2. Mild groundglass and reticular change in the lower lungs especially at the right base and anterior left midlung. Correlate for any known underlying interstitial lung disease or interstitial pneumonit is. 3. Possible severe segmental stenoses right common iliac artery. Surgical material suggesting prior p artial right hemicolectomy. Sigmoid diverticulosis without acute diverticulitis. 4. Mild circumferential bladder wall thickening is similar and may relate to posttreatment change. Pr ostatomegaly of 4.9 cm wide. No evidence for metastatic disease on this noncontrast study.
== END | disposition home or self-care (01) ==
LOC: RADCTMAIN 15:06
PROVIDERS: ATTEND Radiology Radiation Oncology
DX: C67.2 Malignant neoplasm of lateral wall of bladder (principal); Z87.891 Personal history of nicotine dependence
CPT/HCPCS: 71250; 74176

== ENCOUNTER 2023-10-12 10:33 | Observation (INO) | payer OTHER ==
[2023-10-12] MEDS ORDERED: KETOROLAC 15 MG/ML 1 ML VIAL IVP STA (11:00)
[2023-10-12] MEDS ORDERED: ONDANSETRON 4 MG/2 ML VIAL IVP STA (11:00)
[2023-10-12] MEDS ORDERED: SODIUM CHLORIDE 0.9% 1,000 ML IV STA (11:00)
--- NOTE | 2023-10-12 11:01 | ED ---
Abdominal Pain HPI - General Chief Complaint: Abdominal Pain Stated Complaint: Abd Pain Time Seen by Provider: 10/12/23 10:42 Source: patient Mode of arrival: ambulatory Limitations: no limitations - History of Present Illness Initial Comments: 73 old male with a past medical history significant for CHF, COPD, hypertension, chronic kidney disease, and history of colon/bladder cancer presenting to the ED with a chief complaint of constipation. She states for the last 3 weeks has been unable to have a full sized bowel movement. States that he is only had "pebble-like" bowel movements. Additionally states he feels bloated and has been having problems with nausea and nonbloody emesis. Notes some epigastric abdominal pain with this as well. Additionally, patient notes that he has not been taking his Lasix because he does not want to get up in the middle of the night to urinate. Patient also notes over the past few weeks he has been getting short of breath with exertion and certain positions. Denies chest pain. No blood in the stool. Denies urinary symptoms. No fever or chills. No other complaints. - Related Data Home Medications Medication Instructions Recorded Confirmed Tamsulosin [Flomax] 0.4 mg PO DAILY 06/04/16 07/29/22 Famotidine [Pepcid] 20 mg PO BID 06/08/20 07/29/22 Multivitamins, Thera [Multivitamin 1 tab PO DAILY 06/08/20 07/29/22 (formulary)] Atorvastatin Calcium [Lipitor] 20 mg PO HS 06/24/21 07/29/22 Fluticasone Propion/Salmeterol 1 puff INHALATION RT-BID 08/27/21 07/29/22 [Wixela 250-50 Inhub] Melatonin 5 mg PO HS 05/31/22 07/29/22 Mirtazapine [Remeron] 30 mg PO HS 05/31/22 07/29/22 Nitroglycerin Sl Tabs 0.3mg 0.3 mg SL Q5M PRN 05/31/22 07/29/22 QUEtiapine [SEROquel] 150 mg PO HS 05/31/22 07/29/22 Previous Rx's Medication Instructions Recorded Acetaminophen Tab [Tylenol] 650 mg PO Q6HR PRN tab 06/05/22 Aspirin 81 mg PO DAILY #30 tab 06/12/22 Potassium Chloride ER [K-Dur 20] 20 meq PO DAILY #14 tab 06/12/22 Albuterol Inhaler [Ventolin Hfa 1 - 2 puff INHALATION RT-Q6H PRN 06/26/22 Inhaler] 30 Days #1 dispenser Cyanocobalamin [Vitamin B-12] 1,000 mcg PO DAILY #30 tab 07/12/22 Furosemide [Lasix] 40 mg PO BID@0900,1600 #60 tab 08/03/22 Isosorbide Mononitrate ER [Imdur] 30 mg PO DAILY 30 Days #30 tab 08/03/22 amLODIPine [Norvasc] 5 mg PO DAILY #30 tab 08/03/22 carvediloL [Coreg*] 25 mg PO BID-W/MEALS #60 tab 08/03/22 hydrALAZINE HCL [Apresoline] 100 mg PO TID #90 tab 08/03/22 Allergies Allergy/AdvReac Type Severity Reaction Status Date / Time lisinopril Allergy Angioedema., Verified 10/12/23 10:39 swollen testicle, rash Review of Systems ROS Statement: Those systems with pertinent positive or pertinent negative responses have been documented in the HPI. ROS Other: All systems not noted in ROS Statement are negative. Past Medical History Past Medical History: Cancer, Heart Failure, COPD, GERD/Reflux, Hyperlipidemia, Hypertension, Prostate Disorder, Renal Disease Additional Past Medical History / Comment(s): Pt recently admitted to [facility] on 06/11/22 with acute on chronic CHF, hyperkalemia. Other hx: Recent bladder cancer/completed oral chemo and radiation, past colon cancer with resection, nonischemic cardiomyopathy, 2020 cardiac arrent/Vtach, CKD stage IV, BPH, hemorrhoids, anemia, RLS, chronic low back pain History of Any Multi-Drug Resistant Organisms: None Reported Past Surgical History: Appendectomy, Bowel Resection, Heart Catheterization, Orthopedic Surgery Additional Past Surgical History / Comment(s): R hemicolectomy, colonoscopies, nasal surgery to repair ulcer, R knee arthroscopic surgeries (ACL repair and meniscus repair), L heel fusion d/t trauma, L arm bicep surgery. Past Anesthesia/Blood Transfusion Reactions: No Reported Reaction Past Psychological History: Anxiety Smoking Status: Current every day smoker Past Alcohol Use History: None Reported Past Drug Use History: None Reported - Past Family History Mother Family Medical History: Cancer Additional Family Medical History / Comment(s): BREAST Sister(s) Family Medical History: Deep Vein Thrombosis (DVT) Additional Family Medical History / Comment(s): 1 sister had leukemia, and another sister had non hodgkins. Father Family Medical History: COPD Additional Family Medical History / Comment(s): FROM CARDIAC ARREST General Exam Limitations: no limitations General appearance: alert, in no apparent distress Neck exam: Present: normal inspection Respiratory exam: Present: other (Coarse breath sounds bilaterally.) Cardiovascular Exam: Present: regular rate GI/Abdominal exam: Present: tenderness (Diffuse tenderness to palpation.) Neurological exam: Present: alert, oriented X3 Skin exam: Present: warm, dry Course Vital Signs 10/12/23 10/12/23 10/12/23 10:36 12:15 12:30 Temperature 97.8 F Pulse Rate 109 H Respiratory 20 20 18 Rate Blood Pressure 189/119 O2 Sat by Pulse 97 84 L 96 Oximetry Medical Decision Making - Medical Decision Making Was pt. sent in by a medical professional or institution (Dr. PA, FLOUR [employer]ENDER, urgent care, hospital, or fci...) When possible be specific @ -No Did you speak to anyone other than the patient for history (EMS, parent, family, police, friend...)? What history was obtained from this source @ -No Did you review nursing and triage notes (agree or disagree)? Why? @ -I reviewed and agree with nursing and triage notes Were old charts reviewed (outside hosp., previous admission, EMS record, old EKG, old radiological studies, urgent care reports/EKG's, fci records)? Report findings @ -No old charts were reviewed Differential Diagnosis (chest pain, altered mental status, abdominal pain women, abdominal pain men, vaginal bleeding, weakness, fever, dyspnea, syncope, headache, dizziness, GI bleed, back pain, seizure, CVA, palpatations, mental health, musculoskeletal)? @ -Differential Dyspnea: Coronary syndrome, arrhythmia, tamponade, asthma, COPD, pulmonary embolism, pneumonia, pneumothorax, pulmonary effusion, anaphylaxis, diabetic ketoacidosis, flailed chest, pulmonary contusion, diaphragmatic rupture, anemia, emma romuscular, this is not meant to be an all-inclusive list. Differential Abdominal Pain Men: Appendicitis, cholecystitis, diverticulosis, ischemic bowel, pancreatitis, hepatitis, UTI, gastroenteritis, AAA, incarcerated hernia, bowel obstruction, constipation, inflammatory bowel, hepatitis, peptic ulcer disease, splenic infarction, perforated viscus, testicular torsion, this is not meant to be an all-inclusive list EKG interpreted by me (3pts min.). @ -As above X-rays interpreted by me (1pt min.). @ -X-rays interpreted by me showing pleural effusion and nodule left upper lung. CT interpreted by me (1pt min.). @ -CT abdomen and pelvis interpreted by me shows some evidence of fluid overload no evidence of obstruction or other acute finding. U/S interpreted by me (1pt. min.). @ -None done What testing was considered but not performed or refused? (CT, X-rays, U/S, labs)? Why? @ -None What meds were considered but not given or refused? Why? @ -None Did you discuss the management of the patient with other professionals (professionals i.e. , PA, [employer]ENDER, lab, RT, psych nurse, rn social work, sound truck operator, teacher, foreign policy officer, case management social worker)? Give summary @ -Case discussed with Dr. Voss, who accepts admission Was smoking cessation discussed for >3mins.? @ -No Was critical care preformed (if so, how long)? @ -No Were there social determinants of health that impacted care today? How? (Homelessness, low income, unemployed, alcoholism, drug addiction, transportation, low edu. Level, literacy, decrease access to med. care, long-term, re hab)? @ -No Was there de-escalation of care discussed even if they declined (Discuss DNR or withdrawal of care, Hospice)? DNR status @ -No What co-morbidities impacted this encounter? (DM, HTN, Smoking, COPD, CAD, Cancer, CVA, ARF, Chemo, Hep., AIDS, mental health diagnosis, sleep apnea, morbid obesity)? @ -CHF, CKD Was patient admitted / discharged? Hospital course, mention meds given and route, prescriptions, significant lab abnormalities, going to OR and other pertinent info. @ -Admission 73-year-old male presenting with complaints of abdominal pain and dyspnea for the past few weeks. Patient notes he has been noncompliant with his Lasix at home. Laboratory studies reviewed. The CT does show some anemia with hemoglobin at 10.5 however stable when compared to prior. Chemistry panel significant for patient's of BUN and creatinine at 24 and 2.08 respectively however improved from prior. Also some elevations in liver enzymes with AST elevated 62, ALT 108, alk phos 290. Initial troponin indeterminate at 0.031. BNP elevated at 67,700. He shows no evidence of infection. Patient will be admitted with consults to pulmonology and cardiology. Patient started on Lasix in the ED. Undiagnosed new problem with uncertain prognosis? @ -No Drug Therapy requiring intensive monitoring for toxicity (Heparin, Nitro, Insulin, Cardizem)? @ -No Were any procedures done? @ -No Diagnosis/symptom? @ -CHF, abdominal pain Acute, or Chronic, or Acute on Chronic? @ -Acute Uncomplicated (without systemic symptoms) or Complicated (systemic symptoms)? @ -Complicated Side effects of treatment? @ -No Exacerbation, Progression, or Severe Exacerbation? @ -No Poses a threat to life or bodily function? How? (Chest pain, [place], [place], pneumonia, PE, COPD, DKA, ARF, appy, cholecystitis, CVA, Diverticulitis, Homicidal, Suicidal, threat to staff... and all critical care pts) @ -No - Lab Data Result diagrams: 10/12/23 11:08 10/12/23 11:08 Lab Results 10/12/23 10/12/23 10/12/23 Range/Units 11:08 11:08 11:08 WBC 8.2 (3.8-10.6) k/uL RBC 3.56 L (4.30-5.90) m/uL Hgb 10.5 L (13.0-17.5) gm/dL Hct 33.3 L (39.0-53.0) % MCV 93.5 (80.0-100.0) fL MCH 29.5 (25.0-35.0) pg MCHC 31.6 (31.0-37.0) g/dL RDW 16.7 H (11.5-15.5) % Plt Count 338 (150-450) k/uL MPV 7.5 Neutrophils % 81 % Lymphocytes % 10 % Monocytes % 4 % Eosinophils % 3 % Basophils % 1 % Neutrophils # 6.6 (1.3-7.7) k/uL Lymphocytes # 0.8 L (1.0-4.8) k/uL Monocytes # 0.3 (0-1.0) k/uL Eosinophils # 0.3 (0-0.7) k/uL Basophils # 0.1 (0-0.2) k/uL Hypochromasia Marked Anisocytosis Slight PT 12.7 H (10.0-12.5) sec INR 1.2 H (<1.2) APTT 26.2 (22.0-30.0) sec Sodium (137-145) mmol/L Potassium (3.5-5.1) mmol/L Chloride (98-107) mmol/L Carbon Dioxide (22-30) mmol/L Anion Gap mmol/L BUN (9-20) mg/dL Creatinine (0.66-1.25) mg/dL Est GFR (CKD-EPI)AfAm (>60 ml/min/1.73 sqM) Est GFR (CKD-EPI)NonAf (>60 ml/min/1.73 sqM) Glucose (74-99) mg/dL Plasma Lactic Acid Dipesh (0.7-2.0) mmol/L Calcium (8.4-10.2) mg/dL Total Bilirubin (0.2-1.3) mg/dL AST (17-59) U/L ALT (4-49) U/L Alkaline Phosphatase (38-126) U/L Troponin I (0.000-0.034) ng/mL NT-Pro-B Natriuret Pep pg/mL Total Protein (6.3-8.2) g/dL Albumin (3.5-5.0) g/dL Amylase (30-110) U/L Lipase (23-300) U/L Urine Color Light Jack Urine Appearance Clear (Clear) Urine pH 6.0 (5.0-8.0) Ur Specific Lewis 1.013 (1.001-1.035) Urine Protein 2+ H (Negative) Urine Glucose (UA) Negative (Negative) Urine Ketones Negative (Negative) Urine Blood Negative (Negative) Urine Nitrite Negative (Negative) Urine Bilirubin Negative (Negative) Urine Urobilinogen <2.0 (<2.0) mg/dL Ur Leukocyte Esterase Negative (Negative) Urine RBC 1 (0-5) /hpf Urine WBC 1 (0-5) /hpf Urine Mucus Rare H (None) /hpf 10/12/23 10/12/2323 Range/Units 11:08 11:08 11:08 WBC (3.8-10.6) k/uL RBC (4.30-5.90) m/uL Hgb (13.0-17.5) gm/dL Hct (39.0-53.0) % MCV (80.0-100.0) fL MCH (25.0-35.0) pg MCHC (31.0-37.0) g/dL RDW (11.5-15.5) % Plt Count (150-450) k/uL MPV Neutrophils % % Lymphocytes % % Monocytes % % Eosinophils % % Basophils % % Neutrophils # (1.3-7.7) k/uL Lymphocytes # (1.0-4.8) k/uL Monocytes # (0-1.0) k/uL Eosinophils # (0-0.7) k/uL Basophils # (0-0.2) k/uL Hypochromasia Anisocytosis PT (10.0-12.5) sec INR (<1.2) APTT (22.0-30.0) sec Sodium 140 (137-145) mmol/L Potassium 4.1 (3.5-5.1) mmol/L Chloride 107 (98-107) mmol/L Carbon Dioxide 19 L (22-30) mmol/L Anion Gap 14 mmol/L BUN 24 H (9-20) mg/dL Creatinine 2.08 H (0.66-1.25) mg/dL Est GFR (CKD-EPI)AfAm 36 (>60 ml/min/1.73 sqM) Est GFR (CKD-EPI)NonAf 31 (>60 ml/min/1.73 sqM) Glucose 113 H (74-99) mg/dL Plasma Lactic Acid Dipesh 1.1 (0.7-2.0) mmol/L Calcium 8.6 (8.4-10.2) mg/dL Total Bilirubin 0.6 (0.2-1.3) mg/dL AST 62 H (17-59) U/L ALT 108 H (4-49) U/L Alkaline Phosphatase 290 H (38-126) U/L Troponin I 0.031 (0.000-0.034) ng/mL NT-Pro-B Natriuret Pep pg/mL Total Protein 6.0 L (6.3-8.2) g/dL Albumin 3.4 L (3.5-5.0) g/dL Amylase 34 (30-110) U/L Lipase 46 (23-300) U/L Urine Color Urine Appearance (Clear) Urine pH (5.0-8.0) Ur Specific Lewis (1.001-1.035) Urine Protein (Negative) Urine Glucose (UA) (Negative) Urine Ketones (Negative) Urine Blood (Negative) Urine Nitrite (Negative) Urine Bilirubin (Negative) Urine Urobilinogen (<2.0) mg/dL Ur Leukocyte Esterase (Negative) Urine RBC (0-5) /hpf Urine WBC (0-5) /hpf Urine Mucus (None) /hpf 10/12/23 Range/Units 11:08 WBC (3.8-10.6) k/uL RBC (4.30-5.90) m/uL Hgb (13.0-17.5) gm/dL Hct (39.0-53.0) % MCV (80.0-100.0) fL MCH (25.0-35.0) pg MCHC (31.0-37.0) g/dL RDW (11.5-15.5) % Plt Count (150-450) k/uL MPV Neutrophils % % Lymphocytes % % Monocytes % % Eosinophils % % Basophils % % Neutrophils # (1.3-7.7) k/uL Lymphocytes # (1.0-4.8) k/uL Monocytes # (0-1.0) k/uL Eosinophils # (0-0.7) k/uL Basophils # (0-0.2) k/uL Hypochromasia Anisocytosis PT (10.0-12.5) sec INR (<1.2) APTT (22.0-30.0) sec Sodium (137-145) mmol/L Potassium (3.5-5.1) mmol/L Chloride (98-107) mmol/L Carbon Dioxide (22-30) mmol/L Anion Gap mmol/L BUN (9-20) mg/dL Creatinine (0.66-1.25) mg/dL Est GFR (CKD-EPI)AfAm (>60 ml/min/1.73 sqM) Est GFR (CKD-EPI)NonAf (>60 ml/min/1.73 sqM) Glucose (74-99) mg/dL Plasma Lactic Acid Dipesh (0.7-2.0) mmol/L Calcium (8.4-10.2) mg/dL Total Bilirubin (0.2-1.3) mg/dL AST (17-59) U/L ALT (4-49) U/L Alkaline Phosphatase (38-126) U/L Troponin I (0.000-0.034) ng/mL NT-Pro-B Natriuret Pep 76350 pg/mL Total Protein (6.3-8.2) g/dL Albumin (3.5-5.0) g/dL Amylase (30-110) U/L Lipase (23-300) U/L Urine Color Urine Appearance (Clear) Urine pH (5.0-8.0) Ur Specific Lewis (1.001-1.035) Urine Protein (Negative) Urine Glucose (UA) (Negative) Urine Ketones (Negative) Urine Blood (Negative) Urine Nitrite (Negative) Urine Bilirubin (Negative) Urine Urobilinogen (<2.0) mg/dL Ur Leukocyte Esterase (Negative) Urine RBC (0-5) /hpf Urine WBC (0-5) /hpf Urine Mucus (None) /hpf - EKG Data EKG Comments: EKG shows a sinus rhythm with right bundle branch block with frequent premature beats. Appears largely similar to prior. Diffuse nonspecific ST and T-wave changes a rate of 93 bpm. OH 168, QRS 110, QT/QTc 372/422. Disposition Clinical Impression: CHF exacerbation Disposition: ADMITTED IP TO THIS HOSP Condition: Good Referrals: [facility],Clinic [Primary Care Provider] - 1-2 days Time of Disposition: 13:55
[2023-10-12 11:17] LABS: Anisocytosis Slight; Basophils # (A) 0.1 k/uL (0-0.2); Basophils % (A) 1 %; Eosinophils # (A) 0.3 k/uL (0-0.7); Eosinophils % (A) 3 %; HCT 33.3 % (39.0-53.0); HGB 10.5 gm/dL (13.0-17.5); Hypochromasia Marked; Lymphocytes # (A) 0.8 k/uL (1.0-4.8); Lymphocytes % (A) 10 %; MCH 29.5 pg (25.0-35.0); MCHC 31.6 g/dL (31.0-37.0); MCV 93.5 fL (80.0-100.0); Mean Platelet Volume 7.5; Monocytes # (A) 0.3 k/uL (0-1.0); Monocytes % (A) 4 %; Neutrophils # (A) 6.6 k/uL (1.3-7.7); Neutrophils % (A) 81 %; Platelet Count 338 k/uL (150-450); RBC 3.56 m/uL (4.30-5.90); RDW 16.7 % (11.5-15.5); WBC 8.2 k/uL (3.8-10.6)
[2023-10-12 11:31] LABS: ALT 108 U/L (4-49); AST 62 U/L (17-59); African American GFR (CKD) 36 (>60 ml/min/1.73 sqM); Albumin 3.4 g/dL (3.5-5.0); Alkaline Phosphatase 290 U/L (38-126); Amylase 34 U/L (30-110); Anion Gap 14 mmol/L; Blood Urea Nitrogen 24 mg/dL (9-20); Calcium 8.6 mg/dL (8.4-10.2); Carbon Dioxide 19 mmol/L (22-30); Chloride 107 mmol/L (98-107); Glucose 113 mg/dL (74-99); Lipase 46 U/L (23-300); Non-African American GFR(CKD) 31 (>60 ml/min/1.73 sqM); Potassium 4.1 mmol/L (3.5-5.1); Sodium 140 mmol/L (137-145); Total Bilirubin 0.6 mg/dL (0.2-1.3)
[2023-10-12 11:35] LABS: INR 1.2 (<1.2); Partial Thromboplastin Time 26.2 sec (22.0-30.0); Prothrombin Time 12.7 sec (10.0-12.5)
[2023-10-12 11:36] LABS: Mucus,Urine Rare /hpf; RBC,Urine 1 /hpf (0-5); WBC,Urine 1 /hpf (0-5)
[2023-10-12 11:42] LABS: Appearance,Urine Clear (Clear); Color,Urine Light Orange; Protein,Urine 2+ (Negative); Specific Gravity,Urine 1.013 (1.001-1.035)
[2023-10-12 11:43] LABS: Bilirubin,Urine Negative (Negative); Blood,Urine Negative (Negative); Glucose,Urine (UA) Negative (Negative); Ketones,Urine Negative (Negative); Leukocyte Esterase,Urine Negative (Negative); Nitrite,Urine Negative (Negative); Urobilinogen,Urine <2.0 mg/dL (<2.0)
--- NOTE | 2023-10-12 11:43 | XR ---
EXAMINATION TYPE: XR chest 2V DATE OF EXAM: 10/12/2023 COMPARISON: 08/01/2022 TECHNIQUE: PA and lateral views submitted. HISTORY: Shortness of breath FINDINGS: No focal pneumonia or pneumothorax. Tiny right pleural effusion or thickening suspected. The heart is enlarged. A diffuse interstitial pattern. Is an 8 mm nodule in the left upper lobe. Underlying emphy sematous changes.. Osseous structures demonstrate hypertrophic and degenerative changes of the spine. IMPRESSION: 1. Findings are most typical of CHF superimposed on a background of COPD with small pleural effusion. 2. 8mm nodule left upper lobe.
--- NOTE | 2023-10-12 13:06 | CT ---
EXAMINATION TYPE: CT abdomen pelvis wo con DATE OF EXAM: 10/12/2023 HISTORY: History of bladder cancer. Constipation. Rule out obstruction. CT DLP: 322 mGycm. Automated Exposure Control for Dose Reduction was Utilized. TECHNIQUE: CT scan of the abdomen and pelvis is performed without oral or IV contrast. COMPARISON: Most recent prior CT August 31, 2022 and older studies. FINDINGS: Within the limitations of a non-contrast study, the following observations are made. LUNG BASES: Small bilateral pleural effusions are now present. LIVER/GB: Approximately 1.9 cm simple appearing thin-walled cyst in the left hepatic lobectomy is 22 is redemonstrated. PANCREAS: No significant abnormality is seen. SPLEEN: No significant abnormality is seen. ADRENALS: No significant abnormality is seen. KIDNEYS: Asymmetric cortical thinning and volume loss to left kidney redemonstrated. BOWEL: Suboptimal evaluation due to lack of enteric contrast and patient having little internal fat. Surgical sutures from prior surgery in the right colon are redemonstrated. Mild/moderate fecal promin ence at this level is seen on current study. No abnormal small or large bowel dilatation. Distal colo bettina diverticula are redemonstrated. GENITAL ORGANS: Enlarged prostate gland consistent with BPH. Mild concentric wall thickening in the u rinary bladder. Small amount of free fluid in the pelvis on current study axial image 62. LYMPH NODES: No greater than 1cm abdominal or pelvic lymph nodes are appreciated. Mild edema througho ut the mesentery as seen on current study OSSEOUS STRUCTURES: Moderate to severe disc space narrowing with vacuum disc phenomenon at L5-S1 leve l is redemonstrated. Posterior disc herniation L4-L5 level again seen. OTHER: Moderate to severe calcified plaque of the aorta extends into iliac branch vessels. IMPRESSION: 1. Suboptimal study without CT evidence for bowel obstruction. Mild to moderate proximal colonic feca l prominence or constipation. 2. Mild diffuse edema throughout the abdomen and pelvis with small amount of pelvic peritoneal ascite s and small bilateral pleural effusions. Findings consistent with fluid overload state.
[2023-10-12] MEDS ORDERED: NALOXONE 0.4 MG/ML 1 ML VIAL IV PRN (13:56)
[2023-10-12] MEDS ORDERED: SODIUM CHLORIDE 0.9% 1,000 ML IV SCH (14:00)
[2023-10-12] MEDS ORDERED: MELATONIN 3 MG TABLET PO PRN (14:10)
[2023-10-12] MEDS ORDERED: ACETAMINOPHEN TAB 325 MG TAB PO PRN (14:10)
--- NOTE | 2023-10-12 14:13 | P.HPIM ---
History of Present Illness H&P Date: 10/12/23 History of Presenting Illness: Patient is a pleasant 73-year-old male with a past medical history of COPD with continued nicotine use, history of ischemic cardiomyopathy status post cardiac arrest resulting from respiratory arrest during acute COPD exacerbation, hypertension, hyperlipidemia, stage IV chronic kidney disease, BPH, previous bladder cancer status post complete minute of chemotherapy and radiation, and colon cancer status post resection and right hemicolectomy. Patient presented to emergency department today secondary to complaints of abdominal pain/distention. He reports constipation with abdominal pain and distention for about 1 week. In addition patient reports decreased appetite, nausea and generalized fatigue. 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 Patient denies having increased shortness of breath or increase in or changes in baseline cough. He denies having any fevers, chills, headache, lightheadedness, dizziness, chest pain or palpitations, nasal congestion or postnasal discharge, episodes of vomiting, decreases in her changes in his urinary function, or experiencing any numbness/tingling/weakness/swelling in his extremities. He does report stopping taking many of his medications quite some time ago, states he was previously on Lasix but stopped taking that as well because he did not like urinating in the middle of the night. He underwent full evaluation in the emergency department. Initial vitals upon arrival to facility show blood pressure 189/119, heart rate 109, respiratory rate 20, temp 97.8F, SpO2 of 97% on room air. EKG completed showing sinus rhythm with frequent PVCs. Labs completed and reviewed. CBC showing normocytic anemia with hemoglobin of 10.5. Coagulation profile showing elevated PT of 12.7 and INR 1.2. BMP consistent with stage IV CKD with BUN 24, creatinine 2.08, and GFR of 31 with baseline creatinine around 2.4. Liver profile showing transaminitis with AST of 62, ALT of 108, and alkaline phosphatase of 290. Troponin 0.031 and proBNP of 67,700. Amylase and lipase were normal findings. Urinalysis was negative for blood or infection. CT abdomen and pelvis showing mild to moderate proximal colonic fecal prominence constipation and mild diffuse edema throughout the abdomen and pelvis with bilateral pleural effusions. Chest x-ray consistent with CHF exacerbation superimposed on background of COPD and an 8 mm nodule of left upper lobe. Patient was admitted under the services with consultation to cardiology, pulmonology, nephrology, and general surgery. Review of systems: Pertinent positives and negatives as discussed in HPI, a complete review of systems was performed and all other systems are negative. Physical exam: Vital signs reviewed and stable. General: Nontoxic, no distress and appears stated age. Derm: Skin warm and dry, normal coloration for ethnicity. Head: Atraumatic, normocephalic and symmetric. Eyes: EOMs intact, no lid lag, and anicteric sclera Mouth: no lip lesions, mucus membranes moist Cardiovascular: regular rate and rhythm with normal S1S2, murmur, positive posterior tibial pulses bilaterally, and cap refill < 2 seconds. Lungs: Respirations even, regular, and unlabored on room air. Lungs CTA bilaterally, no rhonchi, no rales, no wheezing, and no accessory muscle usage. Abdominal: soft and distended, patient reports significant tenderness upon palpation of epigastric and right upper quadrant region, no guarding, no appreciable organomegaly Ext: ROM intact. No gross muscle atrophy, scant edema, no contractures Neuro: Speech clear, face symmetrical and CN II-XII grossly intact with no noted focal neuro deficits Psych: Alert and oriented to person, place, time, and situation. Appropriate and pleasant affect. Assessment and Plan of Care: Acute exacerbation of chronic diastolic heart failure History of ischemic cardiomyopathy History of cardiac arrest secondary to respiratory arrest during acute COPD exacerbation Hypertension Hyperlipidemia Stage IV chronic kidney disease COPD with continued nicotine dependence -Cardiology consulted -Telemetry monitoring -Trend troponins -ProBNP 67,700 -Daily weights -Close monitoring of I's and O's -Cardiac diet -Lasix 40 mg IVP twice daily -Patient to continue aspirin 81 mg daily, atorvastatin 20 mg nightly, carvedilol 25 TWICE daily, isosorbide mononitrate 30 mg daily, and losartan 30 mg daily. -Continued close monitoring of electrolytes while diuresing. -Order placed for echocardiogram. -Nicotine patch 21 mg daily, discussed with patient and recommend smoking cessation. -Pulmonology consulted by ER SARA for findings of lung nodule. Abdominal pain, right upper quadrant and epigastric tenderness Transaminitis -Order was placed for gallbladder ultrasound and upon follow-up review of radiology report showing small amount of ascites especially near gallbladder with hepatomegaly, hepatic cyst, and mild wall thickening around the gallbladder. -Consult was placed to Gen. surgery for evaluation Constipation - Lactulose 30 mg PO X 1 now. Date and imaging reviewed: -Initial vitals upon arrival to facility show blood pressure 189/119, heart rate 109, respiratory rate 20, temp 97.8F, SpO2 of 97% on room air. -EKG completed showing sinus rhythm with frequent PVCs. -Labs completed and reviewed. CBC showing normocytic anemia with hemoglobin of 10.5. Coagulation profile showing elevated PT of 12.7 and INR 1.2. BMP consistent with stage IV CKD with BUN 24, creatinine 2.08, and GFR of 31 with baseline creatinine around 2.4. Liver profile showing transaminitis with AST of 62, ALT of 108, and alkaline phosphatase of 290. Troponin 0.031 and proBNP of 67,700. Amylase and lipase were normal findings. -Urinalysis was negative for blood or infection. -CT abdomen and pelvis showing mild to moderate proximal colonic fecal prominence constipation and mild diffuse edema throughout the abdomen and pelvis with bilateral pleural effusions. -Chest x-ray consistent with CHF exacerbation superimposed on background of COPD and an 8 mm nodule of left upper lobe. -Order was placed for gallbladder ultrasound and upon follow-up review of radiology report showing small amount of ascites especially near gallbladder with hepatomegaly, hepatic cyst, and mild wall thickening around the gallbladder. CODE STATUS: Full code DVT prophylaxis: Lovenox Anticipated discharge date: Clinical course to determine Anticipated discharge place: Clinical course to determine Patient was seen independently by Nurse Practitioner. This document was prepared using [employer] dictation software. Please allow for errors in visual design lead while rare they do occur. Past Medical History Past Medical History: Cancer, Heart Failure, COPD, GERD/Reflux, Hyperlipidemia, Hypertension, Prostate Disorder, Renal Disease Additional Past Medical History / Comment(s): Pt recently admitted to [facility] on 06/11/22 with acute on chronic CHF, hyperkalemia. Other hx: Recent bladder cancer/completed oral chemo and radiation, past colon cancer with resection, nonischemic cardiomyopathy, 2020 cardiac arrent/Vtach, CKD stage IV, BPH, hemorrhoids, anemia, RLS, chronic low back pain History of Any Multi-Drug Resistant Organisms: None Reported Past Surgical History: Appendectomy, Bowel Resection, Heart Catheterization, Orthopedic Surgery Additional Past Surgical History / Comment(s): R hemicolectomy, colonoscopies, nasal surgery to repair ulcer, R knee arthroscopic surgeries (ACL repair and meniscus repair), L heel fusion d/t trauma, L arm bicep surgery. Past Anesthesia/Blood Transfusion Reactions: No Reported Reaction Past Psychological History: Anxiety Smoking Status: Current every day smoker Past Alcohol Use History: None Reported Past Drug Use History: None Reported - Past Family History Mother Family Medical History: Cancer Additional Family Medical History / Comment(s): BREAST Sister(s) Family Medical History: Deep Vein Thrombosis (DVT) Additional Family Medical History / Comment(s): 1 sister had leukemia, and another sister had non hodgkins. Father Family Medical History: COPD Additional Family Medical History / Comment(s): FROM CARDIAC ARREST Medications and Allergies Home Medications Medication Instructions Recorded Confirmed Type Tamsulosin [Flomax] 0.4 mg PO DAILY 06/04/16 10/12/23 History Atorvastatin Calcium [Lipitor] 20 mg PO HS 06/24/21 10/12/23 History Melatonin 10 mg PO HS 05/31/22 10/12/23 History Mirtazapine [Remeron] 30 mg PO HS 05/31/22 10/12/23 History Aspirin 81 mg PO DAILY #30 tab 06/12/22 10/12/23 Rx Isosorbide Mononitrate ER [Imdur] 30 mg PO DAILY 30 Days #30 tab 08/03/22 10/12/23 Rx Cholecalciferol [Vitamin D3 (10 20 mcg PO DAILY 10/12/23 10/12/23 History Mcg = 400 Iu)] Losartan Potassium 50 mg PO DAILY 10/12/23 10/12/23 History Nitroglycerin Sl Tabs [Nitrostat] 0.4 mg SUBLINGUAL Q5M PRN 10/12/23 10/12/23 History PARoxetine HCL [Paxil] 20 mg PO DAILY 10/12/23 10/12/23 History carvediloL [Coreg] 25 mg PO BID 10/12/23 10/12/23 History Allergies Allergy/AdvReac Type Severity Reaction Status Date / Time lisinopril Allergy Angioedema., Verified 10/12/23 17:00 swollen testicle, rash Physical Exam Osteopathic Statement: *. No significant issues noted on an osteopathic structural exam other than those noted in the History and Physical/Consult. Vitals: Vital Signs Temp Pulse Resp BP Pulse Ox 10/12/23 12:30 18 96 10/12/23 12:15 20 84 L 10/12/23 10:36 97.8 F 109 H 20 189/119 97 Intake and Output 10/11/23 10/12/23 10/12/23 22:59 06:59 14:59 Other: Weight 130 kg Results CBC & Chem 7: 10/12/23 11:08 10/12/23 11:08 Labs: Abnormal Lab Results - Last 24 Hours (Table) 10/12/23 10/12/23 10/12/23 Range/Units 11:08 11:08 11:08 RBC 3.56 L (4.30-5.90) m/uL Hgb 10.5 L (13.0-17.5) gm/dL Hct 33.3 L (39.0-53.0) % RDW 16.7 H (11.5-15.5) % Lymphocytes # 0.8 L (1.0-4.8) k/uL PT 12.7 H (10.0-12.5) sec INR 1.2 H (<1.2) Carbon Dioxide (22-30) mmol/L BUN (9-20) mg/dL Creatinine (0.66-1.25) mg/dL Glucose (74-99) mg/dL AST (17-59) U/L ALT (4-49) U/L Alkaline Phosphatase (38-126) U/L Total Protein (6.3-8.2) g/dL Albumin (3.5-5.0) g/dL Urine Protein 2+ H (Negative) Urine Mucus Rare H (None) /hpf 10/12/23 Range/Units 11:08 RBC (4.30-5.90) m/uL Hgb (13.0-17.5) gm/dL Hct (39.0-53.0) % RDW (11.5-15.5) % Lymphocytes # (1.0-4.8) k/uL PT (10.0-12.5) sec INR (<1.2) Carbon Dioxide 19 L (22-30) mmol/L BUN 24 H (9-20) mg/dL Creatinine 2.08 H (0.66-1.25) mg/dL Glucose 113 H (74-99) mg/dL AST 62 H (17-59) U/L ALT 108 H (4-49) U/L Alkaline Phosphatase 290 H (38-126) U/L Total Protein 6.0 L (6.3-8.2) g/dL Albumin 3.4 L (3.5-5.0) g/dL Urine Protein (Negative) Urine Mucus (None) /hpf
[2023-10-12] MEDS: FUROSEMIDE 10 MG/ML 4 ML VIAL IV SCH (14:42)
--- NOTE | 2023-10-12 15:16 | US ---
EXAMINATION TYPE: US gallbladder DATE OF EXAM: 10/12/2023 COMPARISON: Same day CT CLINICAL INDICATION: Male, 73 years old with history of right upper quadrant and epigastric tendernes s; Pain TECHNIQUE: Multiple sonographic images of the right upper quadrant are obtained. FINDINGS: EXAM MEASUREMENTS: Liver Length: 19.3 cm Gallbladder Wall: 0.4 cm CBD: 0.4 cm Right Kidney: 10.6 x 4.0 x 5.0 cm LOG BUYER NOTES: Pancreas: wnl, tail obscured by overlying bowel gas Liver: Enlarged, simple appearing cystic lesion left lobe= 1.8 x 1.6 x 2.2 cm Gallbladder: Lumen clear, wall thickened Evidence for sonographic Oreilly's sign: No CBD: wnl Right Kidney: wnl Incidental finding right pleural effusion, small amount of ascites especially near GB IMPRESSION: 1. Hepatic cyst. 2. Hepatomegaly. 3. Small right pleural effusion. 4. Some mild wall thickening gallbladder.
[2023-10-12] MEDS ORDERED: NITROGLYCERIN SL TABS 0.4 MG TAB SUBLINGUAL PRN (17:43)
[2023-10-12] MEDS ORDERED: LOSARTAN 50 MG TAB PO SCH (18:00)
[2023-10-12] MEDS ORDERED: IPRATROPIUM-ALBUTEROL 3 ML NEB INHALATION PRN (18:24)
[2023-10-12] MEDS ORDERED: LACTULOSE 20 GM/30 ML CUP PO ONE (18:50)
--- NOTE | 2023-10-12 19:17 | P.CNPUL ---
History of Present Illness Consult date: 10/12/23 Reason for consult: dyspnea History of present illness: 73-year-old male patient, presented to the hospital because of constipation and difficulty in having bowel movement for the past 3 weeks. He was feeling bloated and he has having some nausea and emesis. He did complain of some epigastric abdominal pain as well. He also reported some interval worsening shortness of breath mainly with exertion. No cough. No sputum production. No chest pain. No fever. No chills. No bright red blood per rectum. In the emergency, the patient was afebrile, hypertensive, and the blood work showed a WBC count of 8.2, hemoglobin 10.5 and a platelet count of 338, BUN is 24 with a creatinine of 2.08 and a sodium level is at 140 and a potassium level is at 4.1. Normal coagulation profile. UA showed +2 protein, the sodium was at 140, potassium was at 4.1, BUN is at 24 with a creatinine of 2.08, glucose was 113, calcium is 8.6, AST is 62, ALT is 108 and alkaline phosphatase is 290, troponin was 0.03, total protein is at 6 with a albumin of 3.4. ProBNP level was 67,007 100. Troponins are 0.032 respectively. The patient is known to have no nocclusive coronary artery disease, COPD, nonischemic cardiomyopathy, previous history of colon cancer that has been resected back in 2016, chronic stage IV kidney disease, history of bladder cancer post chemoradiation therapy, hypertension hyperlipidemia. He has had previous cardiac arrest back in 2019. He has also had previous ventilator dependent respiratory failure due to COPD/CHF exacerbation back in 2021. The computed tomography scan of the abdomen and pelvis that was done in emergency showed no evidence of any bowel obstruction. There was mild to moderate proximal colonic fecal prom inence/constipation. Mild diffuse edema throughout the abdominal and pelvic wall and small amount of pelvic/peritoneal ascites and small left pleural effusions. There is consistent with CHF. Ultrasound the gallbladder showed hepatic cyst, hepatomegaly, normal common bile duct the chest x-ray showed some increased interstitial markings and a small right-sided pleural effusion. No airspace disease. 8 mm nodule in the left upper lobe. Patient is currently on Lasix 40 mg IV every 12 hours. Rest of the outpatient medications have been resumed. Previous echocardiogram from 2021 showed a preserved LV function with an EF of around 50-55%. Normal RV. No pulmonary hypertension. Review of Systems Constitutional: Denies chills, Denies fever Eyes: denies as per HPI, denies blurred vision, denies bulging eye, denies decreased vision, denies diplopia, denies discharge, denies dry eye, denies irritation, denies itching, denies pain, denies photophobia, denies loss of peripheral vision, denies loss of vision, denies tunnel vision/blind spots Ears: deny: decreased hearing, ear discharge, earache, tinnitus Ears, nose, mouth and throat: Reports as per HPI Breasts: absent: as per HPI, gynecomastia Cardiovascular: Reports decreased exercise tolerance, Reports dyspnea on exertion Respiratory: Reports dyspnea Gastrointestinal: Reports abdominal pain, Reports constipation, Reports nausea Genitourinary: Reports as per HPI Musculoskeletal: Reports as per HPI Musculoskeletal: absent: ankle pain, ankle stiffness, ankle swelling, as per HPI, elbow pain, elbow stiffness, elbow swelling, foot pain, foot stiffness, foot swelling, hand pain, hand stiffness, hand swelling, hip pain, hip stiffness, hip swelling, knee pain, knee stiffness, knee swelling, shoulder pain, shoulder stiffness, shoulder swelling, wrist pain, wrist stiffness, wrist swelling Integumentary: Reports as per HPI Neurological: Reports as per HPI Psychiatric: Reports as per HPI Endocrine: Reports as per HPI Hematologic/Lymphatic: Reports as per HPI Allergic/Immunologic: Reports as per HPI Past Medical History Past Medical History: Cancer, Heart Failure, COPD, GERD/Reflux, Hyperlipidemia, Hypertension, Prostate Disorder, Renal Disease Additional Past Medical History / Comment(s): Pt recently admitted to [facility] on with acute on chronic CHF, hyperkalemia. Other hx: Recent bladder cancer/completed oral chemo and radiation, past colon cancer with resection, nonischemic cardiomyopathy, 2020 cardiac arrent/Vtach, CKD stage IV, BPH, hemorrhoids, anemia, RLS, chronic low back pain History of Any Multi-Drug Resistant Organisms: None Reported Past Surgical History: Appendectomy, Bowel Resection, Heart Catheterization, Orthopedic Surgery Additional Past Surgical History / Comment(s): R hemicolectomy, colonoscopies, nasal surgery to repair ulcer, R knee arthroscopic surgeries (ACL repair and meniscus repair), L heel fusion d/t trauma, L arm bicep surgery. Past Anesthesia/Blood Transfusion Reactions: No Reported Reaction Past Psychological History: Anxiety Additional Psychological History / Comment(s): Pt resides with his significant other. He is a . He is independent. Smoking Status: Current every day smoker Past Alcohol Use History: None Reported Additional Past Alcohol Use History / Comment(s): STARTED AGE 19, SMOKES 1/2 PPD Past Drug Use History: None Reported Additional Drug Use History / Comment(s): Past cocaine use. - Past Family History Mother Family Medical History: Cancer Additional Family Medical History / Comment(s): BREAST Sister(s) Family Medical History: Deep Vein Thrombosis (DVT) Additional Family Medical History / Comment(s): 1 sister had leukemia, and another sister had non hodgkins. Father Family Medical History: COPD Additional Family Medical History / Comment(s): FROM CARDIAC ARREST Medications and Allergies Home Medications Medication Instructions Recorded Confirmed Type Tamsulosin [Flomax] 0.4 mg PO DAILY 06/04/16 10/12/23 History Atorvastatin Calcium [Lipitor] 20 mg PO HS 06/24/21 10/12/23 History Melatonin 10 mg PO HS 05/31/22 10/12/23 History Mirtazapine [Remeron] 30 mg PO HS 05/31/22 10/12/23 History Aspirin 81 mg PO DAILY #30 tab 06/12/22 10/12/23 Rx Isosorbide Mononitrate ER [Imdur] 30 mg PO DAILY 30 Days #30 tab 08/03/22 10/12/23 Rx Cholecalciferol [Vitamin D3 (10 20 mcg PO DAILY 10/12/23 10/12/23 History Mcg = 400 Iu)] Losartan Potassium 50 mg PO DAILY 10/12/23 10/12/23 History Nitroglycerin Sl Tabs [Nitrostat] 0.4 mg SUBLINGUAL Q5M PRN 10/12/23 10/12/23 History PARoxetine HCL [Paxil] 20 mg PO DAILY 10/12/23 10/12/23 History carvediloL [Coreg] 25 mg PO BID 10/12/23 10/12/23 History Allergies Allergy/AdvReac Type Severity Reaction Status Date / Time lisinopril Allergy Angioedema., Verified 10/12/23 17:00 swollen testicle, rash Physical Exam Vitals: Vital Signs Temp Pulse Pulse Resp BP BP Pulse Ox 10/12/23 15:50 97.6 F 94 18 187/72 90 L 10/12/23 15:06 97.6 F 78 17 167/100 95 10/12/23 15:05 80 20 166/95 95 10/12/23 12:30 18 96 10/12/23 12:15 20 84 L 10/12/23 10:36 97.8 F 109 H 20 189/119 97 Intake and Output 10/12/23 10/12/23 10/12/23 06:59 14:59 22:59 Other: Voiding Method Urinal Weight 130 kg 130 kg No acute distress, patient is currently 3 L of oxygen by nasal cannula with a pulse ox ranging between 95-96% Head exam was generally normal. There was no scleral icterus or corneal arcus. Mucous membranes were moist. HEENT examination is grossly unremarkable. Neck supple. Full range of motion. No adenopathy thyromegaly or neck vein distention. Cardiovascular examination reveals regular rhythm rate. S1-S2 normal. No S3 or S4. No discernible murmur noted. Lungs reveal scattered bilateral rhonchi and wheezes. There is also crackles at the bases. Breath sounds equal bilaterally. Abdominal exam revealed normal bowel sounds. The abdomen was soft, non-tender, and without masses, organomegaly, or appreciable enlargement of the abdominal aorta. Extremities are intact. No cyanosis clubbing or edema. Skin is without rash or lesion. Neurologically, the patient is sedated Results - Laboratory Findings CBC and BMP: 10/12/23 11:08 10/12/23 11:08 PT/INR, D-dimer PT 12.7 sec (10.0-12.5) H 10/12/23 11:08 INR 1.2 (<1.2) H 10/12/23 11:08 Abnormal lab findings: Abnormal Labs 10/12/23 10/12/23 10/12/23 11:08 11:08 11:08 RBC 3.56 L Hgb 10.5 L Hct 33.3 L RDW 16.7 H Lymphocytes # 0.8 L PT 12.7 H INR 1.2 H Carbon Dioxide BUN Creatinine Glucose AST ALT Alkaline Phosphatase Total Protein Albumin Urine Protein 2+ H Urine Mucus Rare H 10/12/23 11:08 RBC Hgb Hct RDW Lymphocytes # PT INR Carbon Dioxide 19 L BUN 24 H Creatinine 2.08 H Glucose 113 H AST 62 H ALT 108 H Alkaline Phosphatase 290 H Total Protein 6.0 L Albumin 3.4 L Urine Protein Urine Mucus - Diagnostic Findings Chest x-ray: image reviewed Assessment and Plan Plan: Constipation, no other acute pathology on a CAT scan of the abdomen and pelvis. Previous EGD that was done in 2016 showed acid reflux and hiatal hernia without obstruction and a colonoscopy showed sigmoid diverticulosis, normal ileocolonic anastomosis and internal hemorrhoids grade 2. Dyspnea, chronic, probably attributed to CHF although the shortness of breath is multifactorial as the patient has also COPD. Acute hypoxic respiratory failure with a mild component of CHF with elevated proBNP level and increased vessel markings of the chest x-ray, currently on IV Lasix and the patient is also on 3 L of oxygen by nasal cannula, consider underlying diastolic heart failure Hypertension with elevated blood pressure Nonocclusive coronary artery disease, limited troponin leak, minimal, EKG showing frequent PVCs and LVH COPD Diastolic heart failure with preserved LV function Previous respiratory failure requiring intubation mechanical ventilation secondary to COPD/CHF back in 2021. Previous history of smoking History of colon cancer, with previous resection, 2016 History of bladder cancer, status post chemoradiation. History of hypertension. History of hyperlipidemia. History of gastroesophageal reflux disease. History of cardiac arrest, 2019. History of stage IV chronic kidney disease. History of BPH. History of anemia. History of restless leg syndrome. Left upper lobe pulmonary nodule, nonspecific findings, will need a CAT scan of the chest later stage once more stable. The patient's previous CAT scan of the chest from 08/31/2022 showed a left anterior subpleural lesion measuring around 13 mm in size. Plan Agree on IV Lasix Resume all medications Repeat echocardiogram We'll needed tighter blood pressure control and the patient is currently on Coreg 25 mg by mouth twice a day, Cozaar 50 mg by mouth daily and Imdur 30 mg by mouth daily. We'll discuss with cardiology regarding further adjustments. Consider the addition of a calcium channel macey such as amlodipine or hydralazine Consult general surgery regarding constipation, may need to repeat a colonoscopy We'll follow, will obtain a CAT scan of the chest, a noncontrast CAT scan of the later stage
[2023-10-12] MEDS: ATORVASTATIN 20 MG TAB PO SCH (21:33)
[2023-10-12] MEDS: MIRTAZAPINE 15 MG TAB PO SCH (21:33)
[2023-10-12] MEDS: MELATONIN 5 MG TABLET PO SCH (21:33)
[2023-10-12] MEDS: carvediloL 12.5 MG TAB PO SCH (22:30)
[2023-10-13] MEDS: HEPARIN SODIUM,PORCINE 5,000 UNIT/ML 1 ML VIAL SQ SCH ×4 (00:35→23:26)
[2023-10-13] MEDS: FUROSEMIDE 10 MG/ML 4 ML VIAL IV SCH ×3 (02:43→17:19)
[2023-10-13] MEDS: carvediloL 12.5 MG TAB PO SCH ×2 (06:42→17:20)
[2023-10-13] MEDS: PANTOPRAZOLE 40 MG TABLET PO SCH (06:42)
[2023-10-13 06:43] LABS: Anisocytosis Slight; HCT 30.3 % (39.0-53.0); HGB 9.3 gm/dL (13.0-17.5); Hypochromasia Marked; MCH 29.3 pg (25.0-35.0); MCHC 30.6 g/dL (31.0-37.0); MCV 95.7 fL (80.0-100.0); Mean Platelet Volume 7.7; Platelet Count 275 k/uL (150-450); RBC 3.16 m/uL (4.30-5.90); RDW 16.5 % (11.5-15.5); WBC 7.7 k/uL (3.8-10.6)
[2023-10-13 07:02] LABS: ALT 84 U/L (4-49); AST 38 U/L (17-59); African American GFR (CKD) 33 (>60 ml/min/1.73 sqM); Albumin 2.6 g/dL (3.5-5.0); Albumin/Globulin Ratio 1.1; Alkaline Phosphatase 214 U/L (38-126); Anion Gap 7 mmol/L; Blood Urea Nitrogen 26 mg/dL (9-20); Carbon Dioxide 25 mmol/L (22-30); Chloride 109 mmol/L (98-107); Globulin 2.4 g/dL; Glucose 84 mg/dL (74-99); Magnesium 2.2 mg/dL (1.6-2.3); Non-African American GFR(CKD) 29 (>60 ml/min/1.73 sqM); Potassium 4.3 mmol/L (3.5-5.1); Sodium 141 mmol/L (137-145); Total Bilirubin 0.4 mg/dL (0.2-1.3)
[2023-10-13] MEDS ORDERED: ENOXAPARIN 40 MG/0.4 ML SYRINGE SQ SCH (09:00)
[2023-10-13] MEDS ORDERED: LOSARTAN 50 MG TAB PO SCH (09:00)
[2023-10-13] MEDS: TAMSULOSIN 0.4 MG CAP.ER.24H PO SCH (09:00)
[2023-10-13] MEDS: PARoxetine 20 MG TAB PO SCH (09:00)
[2023-10-13] MEDS ORDERED: ASPIRIN 81 MG PO SCH (09:00)
[2023-10-13] MEDS: NICOTINE 21MG/24HR PATCH TRANSDERM SCH (09:01)
[2023-10-13] MEDS: ASPIRIN 81 MG PO SCH (09:01)
[2023-10-13] MEDS: ISOSORBIDE MONONITRATE ER 30 MG TAB.ER.24H PO SCH (09:01)
[2023-10-13] MEDS: LOSARTAN 50 MG TAB PO SCH (09:01)
[2023-10-13] MEDS: PIPERACILLIN-TAZOBACTAM 3.375 GM in SODIUM CHLORIDE 0.9% 100 ML IVPB SCH ×2 (09:28→17:22)
--- NOTE | 2023-10-13 10:23 | P.CRDCN ---
History of Present Illness History of present illness: HISTORY OF PRESENT ILLNESS: This is a 73-year-old male with a past medical history significant for cardiac arrest, hypertension, hyperlipidemia, nicotine dependence, chronic kidney disease, bladder cancer, colon cancer with previous resection, and pulmonary nodules. Patient follows in the office with Dr. Cardoso. We have been asked to see the patient in consultation for congestive heart failure. Patient examined at the bedside. Patient presented to the hospital with the chief complaint of constipation and shortness of breath. The patient states he has been losing weight recently so he decided to stop taking his Lasix because he thought he might gain weight if he stopped taking it. He states he has not taken his Lasix for a couple months. He reports increasing shortness of breath over the past week. He reports waking up at night short of breath. He denies any chest pain or pressure. He denied any lower extremity edema. He continues to smoke on a daily basis. * EKG reveals sinus mechanism with polymorphic PVCs * Chest xray findings are most typical of CHF superimposed on a back on of COPD with small pleural effusion. 8 mm nodule left upper lobe. * Laboratory data: Significant for hemoglobin 9.3. BUN 26. Creatinine 2.23. Troponin negative 3. ProBNP 67,700. * Current home cardiac medications include losartan 50 mg daily, Imdur 30 mg daily, carvedilol 25 mg twice a day, Lipitor 20 mg at night, and aspirin 81 mg daily * Most recent echocardiogram obtained in May 2022 revealing ejection fraction 55-60% with minimal pericardial effusion * Cardiac catheterization history: September 2020 revealing [id number] nonobstructive coronary artery disease involving the mid LAD, elevated LVEDP, nonischemic cardiomyopathy, severe disease involving right external iliac artery REVIEW OF SYSTEMS: At the time of my exam: CONSTITUTIONAL: Denies fever or chills. HEENT: Denies blurred vision, vision changes, or eye pain. Denies hemoptysis CARDIOVASCULAR: Denies chest pain. Denies orthopnea. Denies PND. Denies pa lpitations RESPIRATORY: Denies shortness of breath. GASTROINTESTINAL: Denies abdominal pain. Denies nausea or vomiting. HEMATOLOGIC: Denies bleeding disorders. GENITOURINARY: Denies any blood in urine. SKIN: Denies pruitis. Denies rash. PHYSICAL EXAM: VITAL SIGNS: Reviewed. GENERAL: Well-developed in no acute distress. HEENT: Head is normocephalic. Pupils are equal, round. Sclerae anicteric. Mucous membranes of the mouth are moist. Neck supple. No JVD or thyromegaly LUNGS: Respirations even and unlabored. Lungs with significant expiratory wheezing noted HEART: Regular rate and rhythm. S1 and S2 heard. Systolic murmur noted ABDOMEN: Soft. Nondistended. Nontender. EXTREMITIES: Normal range of motion. No clubbing or cyanosis. Peripheral pulses intact. No lower extremity edema NEUROLOGIC: Awake and alert. Oriented x 3. ASSESSMENT: Constipation Abdominal pain acute on chronic heart failure with preserved EF, 55-60% in 2021, repeat echo pending History of nonischemic cardiomyopathy Mild to moderate nonobstructive CAD Chronic kidney disease Hypertension Hyperlipidemia History of cardiac arrest History of bladder cancer History of colon cancer with previous resection Pulmonary nodules Ongoing nicotine dependence History of medication noncompliance PLAN: Obtain 2-D echo to assess cardiac structure and function Continue home cardiac medications Increase losartan to 100 mg daily for optimal blood pressure control Continue IV Lasix 40 mg every 12 hours Daily weights, accurate I&O, and monitoring of kidney function Smoking cessation recommended Medication compliance encouraged. Patient verbalized understanding Further recommendations pending patient's course Nurse practitioner note has been reviewed by physician. Signing provider agrees with the documented findings, assessment, and plan of care. Past Medical History Past Medical History: Cancer, Heart Failure, COPD, GERD/Reflux, Hyperlipidemia, Hypertension, Prostate Disorder, Renal Disease Additional Past Medical History / Comment(s): Pt recently admitted to [facility] on 06/11/22 with acute on chronic CHF, hyperkalemia. Other hx: Recent bladder cancer/completed oral chemo and radiation, past colon cancer with resection, nonischemic cardiomyopathy, 2019 cardiac arrent/Vtach, CKD stage IV, BPH, hemorrhoids, anemia, RLS, chronic low back pain History of Any Multi-Drug Resistant Organisms: None Reported Past Surgical History: Appendectomy, Bowel Resection, Heart Catheterization, Orthopedic Surgery Additional Past Surgical History / Comment(s): R hemicolectomy, colonoscopies, nasal surgery to repair ulcer, R knee arthroscopic surgeries (ACL repair and meniscus repair), L heel fusion d/t trauma, L arm bicep surgery. Past Anesthesia/Blood Transfusion Reactions: No Reported Reaction Past Psychological History: Anxiety Additional Psychological History / Comment(s): Pt resides with his significant other. He is a . He is independent. Smoking Status: Current every day smoker Past Alcohol Use History: None Reported Additional Past Alcohol Use History / Comment(s): STARTED AGE 19, SMOKES 1/2 PPD Past Drug Use History: None Reported Additional Drug Use History / Comment(s): Past cocaine use. - Past Family History Mother Family Medical History: Cancer Additional Family Medical History / Comment(s): BREAST Sister(s) Family Medical History: Deep Vein Thrombosis (DVT) Additional Family Medical History / Comment(s): 1 sister had leukemia, and another sister had non hodgkins. Father Family Medical History: COPD Additional Family Medical History / Comment(s): FROM CARDIAC ARREST Medications and Allergies Home Medications Medication Instructions Recorded Confirmed Type Tamsulosin [Flomax] 0.4 mg PO DAILY 06/04/16 10/12/23 History Atorvastatin Calcium [Lipitor] 20 mg PO HS 06/24/21 10/12/23 History Melatonin 10 mg PO HS 05/31/22 10/12/23 History Mirtazapine [Remeron] 30 mg PO HS 05/31/22 10/12/23 History Aspirin 81 mg PO DAILY #30 tab 06/12/22 10/12/23 Rx Isosorbide Mononitrate ER [Imdur] 30 mg PO DAILY 30 Days #30 tab 08/03/22 10/12/23 Rx Cholecalciferol [Vitamin D3 (10 20 mcg PO DAILY 10/12/23 10/12/23 History Mcg = 400 Iu)] Losartan Potassium 50 mg PO DAILY 10/12/23 10/12/23 History Nitroglycerin Sl Tabs [Nitrostat] 0.4 mg SUBLINGUAL Q5M PRN 10/12/23 10/12/23 History PARoxetine HCL [Paxil] 20 mg PO DAILY 10/12/23 10/12/23 History carvediloL [Coreg] 25 mg PO BID 10/12/23 10/12/23 History Allergies Allergy/AdvReac Type Severity Reaction Status Date / Time lisinopril Allergy Angioedema., Verified 10/12/23 17:00 swollen testicle, rash Physical Exam Vitals: Vital Signs Temp Pulse Pulse Resp BP BP Pulse Ox 10/13/23 07:00 97.9 F 64 20 149/77 92 L 10/13/23 02:24 78 15 10/13/23 00:49 97.9 F 78 15 159/80 96 10/12/23 22:30 78 15 10/12/23 22:00 97.5 F L 78 15 149/78 96 10/12/23 21:35 97.5 F L 74 16 153/83 97 10/12/23 20:37 94 L 10/12/23 18:49 94 L 10/12/23 18:40 98.0 F 76 17 173/78 89 L 10/12/23 15:50 97.6 F 94 18 187/72 90 L 10/12/23 15:06 97.6 F 78 17 167/100 95 10/12/23 15:05 80 20 166/95 95 10/12/23 12:30 18 96 10/12/23 12:15 20 84 L 10/12/23 10:36 97.8 F 109 H 20 189/119 97 Intake and Output 10/12/23 10/13/23 10/13/23 22:59 06:59 14:59 Other: Voiding Method Urinal Urinal Weight 130 kg 53.9 kg Results 10/13/23 06:12 10/13/23 06:12 Cardiac Enzymes 10/12/23 10/12/23 10/12/23 Range/Units 11:08 11:08 14:47 AST 62 H (17-59) U/L Troponin I 0.031 0.032 (0.000-0.034) ng/mL 10/12/23 10/13/23 Range/Units 17:41 06:12 AST 38 (17-59) U/L Troponin I 0.034 (0.000-0.034) ng/mL Coagulation 10/12/23 Range/Units 11:08 PT 12.7 H (10.0-12.5) sec APTT 26.2 (22.0-30.0) sec CBC 10/12/23 10/13/23 Range/Units 11:08 06:12 WBC 8.2 7.7 (3.8-10.6) k/uL RBC 3.56 L 3.16 L (4.30-5.90) m/uL Hgb 10.5 L 9.3 L (13.0-17.5) gm/dL Hct 33.3 L 30.3 L (39.0-53.0) % Plt Count 338 275 (150-450) k/uL Comprehensive Metabolic Panel 10/12/23 10/13/23 Range/Units 11:08 06:12 Sodium 140 141 (137-145) mmol/L Potassium 4.1 4.3 (3.5-5.1) mmol/L Chloride 107 109 H (98-107) mmol/L Carbon Dioxide 19 L 25 (22-30) mmol/L BUN 24 H 26 H (9-20) mg/dL Creatinine 2.08 H 2.23 H (0.66-1.25) mg/dL Glucose 113 H 84 (74-99) mg/dL Calcium 8.6 8.0 L (8.4-10.2) mg/dL AST 62 H 38 (17-59) U/L ALT 108 H 84 H (4-49) U/L Alkaline Phosphatase 290 H 214 H (38-126) U/L Total Protein 6.0 L 5.0 L (6.3-8.2) g/dL Albumin 3.4 L 2.6 L (3.5-5.0) g/dL Current Medications Generic Name Dose Route Start Last Admin Trade Name Freq PRN Reason Stop Dose Admin Acetaminophen 650 mg 10/12/23 14:10 Acetaminophen Tab 325 Mg Tab PO Q6HR PRN Mild Pain or Fever > 100.5 Hydrocodone Bitart/Acetaminophen 1 each 10/12/23 14:10 Hydrocodone/Apap 5-325mg 1 Each Tab PO Q4HR PRN Moderate Pain (Scale 4 to 6) Albuterol/Ipratropium 3 ml 10/12/23 18:24 Ipratropium-Albuterol 3 Ml Neb INHALATION RT-Q2H PRN Shortness Of Breath Or Wheezing Aspirin 81 mg 10/13/23 09:00 Aspirin 81 Mg PO DAILY [facility] Atorvastatin Calcium 20 mg 10/12/23 21:00 10/12/23 21:33 Atorvastatin 20 Mg Tab PO 20 mg HS [facility] Administration Carvedilol 25 mg 10/12/23 21:00 10/13/23 06:42 Carvedilol 12.5 Mg Tab PO 25 mg AC-BID [facility] Administration Furosemide 40 mg 10/13/23 06:00 10/13/23 06:42 Furosemide 10 Mg/Ml 4 Ml Vial IV 40 mg Q12H [facility] Administration Heparin Sodium (Porcine) 5,000 unit 10/13/23 00:00 10/13/23 00:35 Heparin Sodium,Porcine 5,000 Unit/Ml 1 Ml Vial SQ 5,000 unit Q8HR [facility] Administration Isosorbide Mononitrate 30 mg 10/13/23 09:00 Isosorbide Mononitrate Er 30 Mg Tab.Er.24h PO DAILY [facility] Losartan Potassium 50 mg 10/12/23 18:00 10/12/23 18:48 Losartan 50 Mg Tab PO 50 mg DAILY [facility] Administration Melatonin 3 mg 10/12/23 14:10 Melatonin 3 Mg Tablet PO HS PRN Insomnia Melatonin 10 mg 10/12/23 21:00 10/12/23 21:33 Melatonin 5 Mg Tablet PO 10 mg HS [facility] Administration Mirtazapine 30 mg 10/12/23 21:00 10/12/23 21:33 Mirtazapine 15 Mg Tab PO 30 mg HS [facility] Administration Naloxone HCl 0.2 mg 10/12/23 13:56 Naloxone 0.4 Mg/Ml 1 Ml Vial IV Q2M PRN Opioid Reversal Nicotine 1 patch 10/13/23 09:00 Nicotine 21mg/24hr Patch TRANSDERM DAILY [facility] Nitroglycerin 0.4 mg 10/12/23 17:43 Nitroglycerin Sl Tabs 0.4 Mg Tab SUBLINGUAL Q5M PRN Chest Pain Pantoprazole Sodium 40 mg 10/13/23 07:30 10/13/23 06:42 Pantoprazole 40 Mg Tablet PO 40 mg AC-BRKFST [facility] Administration Paroxetine HCl 20 mg 10/13/23 09:00 Paroxetine 20 Mg Tab PO DAILY [facility] Tamsulosin HCl 0.4 mg 10/13/23 09:00 Tamsulosin 0.4 Mg Cap.Er.24h PO DAILY [facility] Intake and Output 10/12/23 10/13/23 10/13/23 22:59 06:59 14:59 Other: Voiding Method Urinal Urinal Weight 130 kg 53.9 kg 10/13/23 06:12 10/13/23 06:12
--- NOTE | 2023-10-13 10:25 | P.GSCN ---
History of Present Illness Consult date: 10/13/23 History of present illness: CHIEF COMPLAINT: Shortness of breath HISTORY OF PRESENT ILLNESS: This is a 73-year-old male who presented with shortness of breath and constipation. Patient reports that he has been having abdominal discomfort and issues with constipation for the past 3 weeks. He did have a bowel movement around 2 AM this morning and since then his abdominal pain has improved. He is also been having shortness of breath and has not been taking his Lasix at home. He is currently admitted with CHF exacerbation as on IV Lasix. He is followed by cardiology. Patient does report having an episode of vomiting yesterday. He does report a decreased appetite. He is now having flatus. Patient did have a gallbladder ultrasound had shown mild gallbladder wall thickening. She he's had mildly elevated LFTs. And surgical service was consulted for evaluation of the gallbladder wall thickening. Patient does have past surgical history of a right hemicolectomy for colon cancer in 2016. And history of appendectomy. Patient also has a medical history of bladder cancer with chemoradiation treatment a year ago. His last colonoscopy was in 2017 and had shown diverticulosis and hemorrhoids. EGD done at the same time had shown GERD and hiatal hernia. Patient denies alcohol use. PAST MEDICAL HISTORY: See list. PAST SURGICAL HISTORY: See list. MEDICATIONS: See list. ALLERGIES: See list. SOCIAL HISTORY: No illicit drug use. REVIEW OF SYSTEMS: CONSTITUTIONAL: Denies fever or chills. HEENT: Denies blurred vision, vision changes, or eye pain. Denies hemoptysis ENDOCRINE: Denies heat or cold intolerance. CARDIOVASCULAR: Denies chest pain or pressure. RESPIRATORY: No shortness of breath. GASTROINTESTINAL: Please refer to HPI otherwise unremarkable NEURO: Denies history of seizures. PSYCH: No depression or suicidal ideation HEMATOLOGIC: Denies bleeding disorders. LYMPHATIC: The patient denies any lumps and bumps around the neck. GENITOURINARY: Denies any blood in urine or increased urinary frequency. MUSCULOSKELETAL: Denies myalgias. Denies joint swelling. Denies decreased range of motion beyond patients baseline. SKIN: Denies pruitis. Denies rash. PHYSICAL EXAM: VITAL SIGNS: Reviewed GENERAL: Well-developed in no acute distress. HEENT: No sclera icterus. Extraocular movements grossly intact. Moist buccal mucosa. Head is atraumatic, normocephalic. Hears conversational speech. No nasal drainage. NECK: Supple without lymphadenopathy. CHEST: Non-labored respirations and equal bilateral excursions. CARDIOVASCULAR: Palpable 2+ radial pulses. ABDOMEN: Soft. Mildly distended. Diffuse abdominal tenderness to palpation. But he does have some tenderness noted in the right upper quadrant. MUSCULOSKELETAL: No clubbing or cyanosis. NEUROLOGIC: No focal or lateralizing signs. Cranial nerves II through XII grossly intact. PSYCH: Appropriate affect. Alert and oriented to person, place and time. SKIN: Well perfused. Good skin turgor. LABORATORY DATA: WBC 7.7 Hgb 9.3 platelets 275 Sodium 141 potassium is 4.3 creatinine 2.23 Total bilirubin 0.4 AST 62 down to 38 ALT 108 down to 84 alk phos 290 down to 214 Lipase 46 IMAGING: Computed tomography scan abdomen and pelvis suboptimal study without CT evidence for bowel obstruction. Mild to moderate proximal colonic fecal prominence constipation. Mild diffuse edema throughout the abdomen and pelvis with small amount of pelvic peritoneal ascites and small bilateral pleural effusions. Findings consistent with fluid overload state. Gallbladder ultrasound hepatic cyst. Hepatomegaly. Small right pleural effusion. Some mild wall thickening gallbladder. ASSESSMENT: 1. Mild gallbladder wall thickening noted on ultrasound 2. Acute CHF exacerbation 3. Mildly elevated LFTs 4. Constipation 5. History of ischemic cardiomyopathy 6. History of COPD 7. Hypertension 8. Hyperlipidemia 9. Chronic kidney disease 10. History of colon cancer with right hemicolectomy 11. History of bladder cancer status post chemoradiation treatment 1 year ago 12. Nicotine dependence PLAN: -HIDA scan ordered for evaluation of gallbladder for possible cholecystitis -Start IV antibiotics -Recommend low-fat diet -Cardiology to continue managing CHF exacerbation -Discussed smoking cessation Physician Skip Pit Worker note has been reviewed by physician. Signing provider agrees with the documented findings, assessment, and plan of care. CHIEF COMPLAINT: Congestive heart failure HISTORY OF PRESENT ILLNESS: The patient is a 73 year old male who comes in with exacerbation of congestive heart failure. Incidentally, patient reports moderate unintentional weight loss. His personal history of colon cancer status post resection 7 years ago however been lost to follow-up. No recent colonoscopy. Separately, patient reported abdominal pain were additional studies were performed. No blood in stools. Reports moderate constipation. He had reported epigastric abdominal pain. Due to presenting symptoms ongoing for more than 2 days, Gen. surgery is consulted. PAST MEDICAL HISTORY: See list and reviewed PAST SURGICAL HISTORY: See list and reviewed MEDICATIONS: See list and reviewed ALLERGIES: See list and reviewed SOCIAL HISTORY: See list and reviewed FAMILY HISTORY: See list and reviewed REVIEW OF ORGAN SYSTEMS: CONSTITUTIONAL: No fevers or chills. Has recent weight loss. EYES: Denies any trouble with vision. No glasses. HEENT: No difficulties with hearing. No nosebleeds. No difficulty swallowing. RESPIRATORY: Denies pneumonia. Has troubles with breathing or dyspnea on exertion. Has chronic obstructive pulmonary disease. Tobacco abuse disorder. CARDIOVASCULAR: Has congestive heart failure. Has hypertensive heart disease. Has ischemic cardiomyopathy. History of cardiac arrest and V. tach. GASTROINTESTINAL: Has constipation. Has gastroesophageal reflux disease. Hyperlipidemia. GENITOURINARY: Has bladder cancer status post chemo radiation therapy. Stage IV chronic kidney disease. NEUROLOGICAL: Denies any numbness or tingling along the distal extremities. No seizure disorders or headaches. MUSCULOSKELETAL: Denies any back pain, stiffness or joint arthritis. SKIN: No current skin cancer. No rash. PSYCHIATRIC: Denies suicidal thoughts. Has depressive disorder. Has anxiety disorder. ENDOCRINE: Denies current thyroid disorders. Denies any blood sugar glucose intolerance. HEME/LYMPHATIC: Denies any lumps and bumps around the neck. No recent deep venous thrombosis. ALLERGY/IMMUNOLOGY: No immunoglobulin therapy. No immune deficiencies. BREAST: Denies current breast lumps, pain or nipple discharge. PHYSICAL EXAM: VITALS: Reviewed CONSTITUTIONAL: Well developed and in no acute distress. EYES: Conjuctivae without sclera icterus. Extraocular movements grossly intact. HEAD, EARS, NOSE, THROAT: Moist buccal mucosa. Head is atraumatic, normocephalic. Hears conversational speech. No nasal drainage. NECK: Supple. No JV distention. No thyroidomegaly. RESPIRATORY: Mild labored respirations and equal bilateral excursions. CARDIOVASCULAR: Palpable 2+ radial pulses. ABDOMEN: No peritonitis. LYMPH: No neck lymphadenopathy. MUSCULOSKELETAL: No clubbing cyanosis or edema SKIN: Warm and well perfused with good skin turgor. NEUROLOGIC: Cranial nerves II through XII grossly intact. No focal or lateralizing signs. PSYCH: Appropriate affect. Alert and oriented to person, place and time. Displays appropriate insight. CLINCAL LABS: Reviewed. WBC within normal limits. LFTs elevated but trending downward. IMAGING: Independently reviewed. CT of the abdomen and pelvis independently reviewed demonstrates no free air. Moderate cardiomegaly. Bilateral pleural effusions. This is my independent interpretation. Ultrasound of the gallbladder independent review demonstrates no gallstones. This is my independent interpretation. HIDA scan independent review demonstrates no evidence of acute cholecystitis RADIOLOGY: Report reviewed CT report demonstrated moderate fecal retention. Ultrasound report demonstrates gallbladder wall thickening. RECORDS: previous old records reviewed. Report 2016 demonstrates right hemicolectomy for malignant cecal polyp. ASSESSMENT: 1. Abdominal pain 2. CHF exacerbation 3. Constipation 4. History of colon cancer 5. History of bladder cancer 6. Cardiomegaly with cardiomyopathy PLAN: 1. Colonoscopy deferred due to patient's exacerbation of congestive heart failure 2. Outpatient colonoscopy described 3. HIDA scan ordered demonstrating no acute cholecystitis 4. No acute surgical intervention needed at this time ADVANCE DIRECTIVE: Thank you for this kind consultation. Past Medical History Past Medical History: Cancer, Heart Failure, COPD, GERD/Reflux, Hyperlipidemia, Hypertension, Prostate Disorder, Renal Disease Additional Past Medical History / Comment(s): Pt recently admitted to [facility] on 06/11/22 with acute on chronic CHF, hyperkalemia. Other hx: Recent bladder cancer/completed oral chemo and radiation, past colon cancer with resection, n onischemic cardiomyopathy, 2020 cardiac arrent/Vtach, CKD stage IV, BPH, hemorrhoids, anemia, RLS, chronic low back pain History of Any Multi-Drug Resistant Organisms: None Reported Past Surgical History: Appendectomy, Bowel Resection, Heart Catheterization, Orthopedic Surgery Additional Past Surgical History / Comment(s): R hemicolectomy, colonoscopies, nasal surgery to repair ulcer, R knee arthroscopic surgeries (ACL repair and meniscus repair), L heel fusion d/t trauma, L arm bicep surgery. Past Anesthesia/Blood Transfusion Reactions: No Reported Reaction Past Psychological History: Anxiety Additional Psychological History / Comment(s): Pt resides with his significant other. He is a . He is independent. Smoking Status: Current every day smoker Past Alcohol Use History: None Reported Additional Past Alcohol Use History / Comment(s): STARTED AGE 19, SMOKES 1/2 PPD Past Drug Use History: None Reported Additional Drug Use History / Comment(s): Past cocaine use. - Past Family History Mother Family Medical History: Cancer Additional Family Medical History / Comment(s): BREAST Sister(s) Family Medical History: Deep Vein Thrombosis (DVT) Additional Family Medical History / Comment(s): 1 sister had leukemia, and another sister had non hodgkins. Father Family Medical History: COPD Additional Family Medical History / Comment(s): FROM CARDIAC ARREST Medications and Allergies Home Medications Medication Instructions Recorded Confirmed Type Tamsulosin [Flomax] 0.4 mg PO DAILY 06/04/16 10/12/23 History Atorvastatin Calcium [Lipitor] 20 mg PO HS 06/24/21 10/12/23 History Melatonin 10 mg PO HS 05/31/22 10/12/23 History Mirtazapine [Remeron] 30 mg PO HS 05/31/22 10/12/23 History Aspirin 81 mg PO DAILY #30 tab 06/12/22 10/12/23 Rx Isosorbide Mononitrate ER [Imdur] 30 mg PO DAILY 30 Days #30 tab 08/03/22 10/12/23 Rx Cholecalciferol [Vitamin D3 (10 20 mcg PO DAILY 10/12/23 10/12/23 History Mcg = 400 Iu)] Losartan Potassium 50 mg PO DAILY 10/12/23 10/12/23 History Nitroglycerin Sl Tabs [Nitrostat] 0.4 mg SUBLINGUAL Q5M PRN 10/12/23 10/12/23 History PARoxetine HCL [Paxil] 20 mg PO DAILY 10/12/23 10/12/23 History carvediloL [Coreg] 25 mg PO BID 10/12/23 10/12/23 History Allergies Allergy/AdvReac Type Severity Reaction Status Date / Time lisinopril Allergy Angioedema., Verified 10/12/23 17:00 swollen testicle, rash Surgical - Exam Vital Signs Temp Pulse Resp BP Pulse Ox 97.8 F 109 H 20 189/119 97 10/12/23 10:36 10/12/23 10:36 10/12/23 10:36 10/12/23 10:36 10/12/23 10:36 Results - Labs 10/13/23 06:12 10/13/23 06:12 Abnormal Lab Results - Last 24 Hours (Table) 10/12/23 10/12/23 10/12/23 Range/Units 11:08 11:08 11:08 RBC 3.56 L (4.30-5.90) m/uL Hgb 10.5 L (13.0-17.5) gm/dL Hct 33.3 L (39.0-53.0) % MCHC (31.0-37.0) g/dL RDW 16.7 H (11.5-15.5) % Lymphocytes # 0.8 L (1.0-4.8) k/uL PT 12.7 H (10.0-12.5) sec INR 1.2 H (<1.2) Chloride (98-107) mmol/L Carbon Dioxide (22-30) mmol/L BUN (9-20) mg/dL Creatinine (0.66-1.25) mg/dL Glucose (74-99) mg/dL Calcium (8.4-10.2) mg/dL AST (17-59) U/L ALT (4-49) U/L Alkaline Phosphatase (38-126) U/L Total Protein (6.3-8.2) g/dL Albumin (3.5-5.0) g/dL Urine Protein 2+ H (Negative) Urine Mucus Rare H (None) /hpf 10/12/23 10/13/23 10/13/23 Range/Units 11:08 06:12 06:12 RBC 3.16 L (4.30-5.90) m/uL Hgb 9.3 L (13.0-17.5) gm/dL Hct 30.3 L (39.0-53.0) % MCHC 30.6 L (31.0-37.0) g/dL RDW 16.5 H (11.5-15.5) % Lymphocytes # (1.0-4.8) k/uL PT (10.0-12.5) sec INR (<1.2) Chloride 109 H (98-107) mmol/L Carbon Dioxide 19 L (22-30) mmol/L BUN 24 H 26 H (9-20) mg/dL Creatinine 2.08 H 2.23 H (0.66-1.25) mg/dL Glucose 113 H (74-99) mg/dL Calcium 8.0 L (8.4-10.2) mg/dL AST 62 H (17-59) U/L ALT 108 H 84 H (4-49) U/L Alkaline Phosphatase 290 H 214 H (38-126) U/L Total Protein 6.0 L 5.0 L (6.3-8.2) g/dL Albumin 3.4 L 2.6 L (3.5-5.0) g/dL Urine Protein (Negative) Urine Mucus (None) /hpf Diabetes panel 10/12/23 10/13/23 Range/Units 11:08 06:12 Sodium 140 141 (137-145) mmol/L Potassium 4.1 4.3 (3.5-5.1) mmol/L Chloride 107 109 H (98-107) mmol/L Carbon Dioxide 19 L 25 (22-30) mmol/L BUN 24 H 26 H (9-20) mg/dL Creatinine 2.08 H 2.23 H (0.66-1.25) mg/dL Glucose 113 H 84 (74-99) mg/dL Calcium 8.6 8.0 L (8.4-10.2) mg/dL AST 62 H 38 (17-59) U/L ALT 108 H 84 H (4-49) U/L Alkaline Phosphatase 290 H 214 H (38-126) U/L Total Protein 6.0 L 5.0 L (6.3-8.2) g/dL Albumin 3.4 L 2.6 L (3.5-5.0) g/dL Calcium panel 10/12/23 10/13/23 Range/Units 11:08 06:12 Calcium 8.6 8.0 L (8.4-10.2) mg/dL Albumin 3.4 L 2.6 L (3.5-5.0) g/dL Pituitary panel 10/12/23 10/13/23 Range/Units 11:08 06:12 Sodium 140 141 (137-145) mmol/L Potassium 4.1 4.3 (3.5-5.1) mmol/L Chloride 107 109 H (98-107) mmol/L Carbon Dioxide 19 L 25 (22-30) mmol/L BUN 24 H 26 H (9-20) mg/dL Creatinine 2.08 H 2.23 H (0.66-1.25) mg/dL Glucose 113 H 84 (74-99) mg/dL Calcium 8.6 8.0 L (8.4-10.2) mg/dL Adrenal panel 10/12/23 10/13/23 Range/Units 11:08 06:12 Sodium 140 141 (137-145) mmol/L Potassium 4.1 4.3 (3.5-5.1) mmol/L Chloride 107 109 H (98-107) mmol/L Carbon Dioxide 19 L 25 (22-30) mmol/L BUN 24 H 26 H (9-20) mg/dL Creatinine 2.08 H 2.23 H (0.66-1.25) mg/dL Glucose 113 H 84 (74-99) mg/dL Calcium 8.6 8.0 L (8.4-10.2) mg/dL Total Bilirubin 0.6 0.4 (0.2-1.3) mg/dL AST 62 H 38 (17-59) U/L ALT 108 H 84 H (4-49) U/L Alkaline Phosphatase 290 H 214 H (38-126) U/L Total Protein 6.0 L 5.0 L (6.3-8.2) g/dL Albumin 3.4 L 2.6 L (3.5-5.0) g/dL
--- NOTE | 2023-10-13 10:30 | CA ---
Transthoracic Echo Report Name: Rey Child Age: 73 Gender: M : 1950 Exam Date: 10/13/2023 08:12 Exam Location: [place] [facility] Ht (in): 67 Wt (lb): 117 Ordering Physician: Ramon Russell Attending/Referring Phys: Plow Shaker Jessica Soria RDCS Procedure CPT: Indications: Evaluate structure and function of heart, CHF Cardiac Hx: Technical Quality: Good Contrast 1: Total Dose (mL): Contrast 2: Total Dose (mL): MEASUREMENTS (Male / Female) Normal Values 2D ECHO LV Diastolic Diameter PLAX 5.5 cm 4.2 - 5.9 / 3.9 - 5.3 cm LV Systolic Diameter PLAX 4.7 cm IVS Diastolic Thickness 1.2 cm 0.6 - 1.0 / 0.6 - 0.9 cm LVPW Diastolic Thickness 1.2 cm 0.6 - 1.0 / 0.6 - 0.9 cm LV Relative Wall Thickness 0.4 RV Internal Dim ED PLAX 3.9 cm LA Systolic Diameter LX 3.3 cm 3.0 - 4.0 / 2.7 - 3.8 cm LA Volume 69.6 cm??? 18 - 58 / 22 - 52 cm??? LA Volume Index 44.2 cm???/m??? 16 - 28 cm???/m??? M-MODE Aortic Root Diameter MM 3.3 cm MV E Point Septal Separation 1.6 cm AV Cusp Separation MM 2.0 cm DOPPLER AV Peak Velocity 180.8 cm/s AV Peak Gradient 13.1 mmHg MV Area PHT 3.7 cm??? MR Peak Velocity 426.6 cm/s MR Peak Gradient 72.8 mmHg Mitral E Point Velocity 91.2 cm/s Mitral A Point Velocity 77.7 cm/s Mitral E to A Ratio 1.2 MV Deceleration Time 203.4 ms MV E' Velocity 4.5 cm/s Mitral E to MV E' Ratio 20.4 TR Peak Velocity 340.9 cm/s TR Peak Gradient 46.5 mmHg Right Ventricular Systolic Press 51.5 mmHg FINDINGS Left Ventricle Left ventricular ejection fraction is estimated at 30 %. Left ventricular cavity size normal. Mildly increased septal wall thickness. Right Ventricle Moderate right ventricular dilatation. Moderate pulmonary hypertension. Right Atrium Normal right atrial size. Left Atrium Moderately increased left atrial volume. Mildly increased left atrial area. Mitral Valve Structurally normal mitral valve. Gxal-[id number]-meertozm mitral regurgitation. Aortic Valve Trileaflet aortic valve. No aortic valve stenosis or regurgitation. Tricuspid Valve Structurally normal tricuspid valve. Mild tricuspid regurgitation. Pulmonic Valve Pulmonic valve not well visualized. Pericardium Small pericardial effusion. Aorta Normal size aortic root and proximal ascending aorta. CONCLUSIONS Dilated LV with impaired LV systolic function and EF at 30% Sktl-[id number]-[id number] mitral regurgitation Moderate pulmonary hypertension Mild tricuspid regurgitation Previewed by: Dr. Rashad Cardoso MD (Electronically Signed) Final Date: 13 October 2023 10:29
[2023-10-13 11:27] VITALS: BMI 18.6
--- NOTE | 2023-10-13 13:02 | NM ---
EXAMINATION TYPE: NM hepatobiliary w CCK DATE OF EXAM: 10/13/2023 12:44 PM COMPARISON: Ultrasound 10/12/2023, CT 10/12/2023 CLINICAL INDICATION:Male, 73 years old with history of RUQ pain, gallbladder wall thickened; TECHNIQUE: The patient was given 5.0 mCi of Technetium 99m-Mebrofenin as a radiotracer and multiple scintigraphic images were obtained of the abdomen. Gallbladder function was also assessed after the a dministration of 4 mL of Sincalide (cholecystokinin) and additional scintigraphic images were obtaine d of the abdomen. A region of interest was drawn over the gallbladder and a timing activity curve was generated. The gallbladder ejection fraction was calculated. FINDINGS: Normal uptake of radiotracer was identified within the liver with excretion into the hepatic and comm on biliary ducts within 14 minutes. There was normal progressive washout of the liver over the course of the study. Radiotracer uptake within the gallbladder at 36 minutes as well as small bowel activit y was identified at 60 minutes. Maximum calculated gallbladder ejection fraction is: 29% at 29 minutes (Normal gallbladder ejection fraction is > 35%) IMPRESSION: 1. Normal hepatobiliary scan. 2. Abnormal ejection fraction compatible with impaired gallbladder emptying and gallbladder dysfuncti on. Exam terminated early due to patient having to micturate.
--- NOTE | 2023-10-13 15:56 | P.PN ---
Subjective Progress Note Date: 10/13/23 Hospital course: Patient is a pleasant 73-year-old male with a past medical history of COPD with continued nicotine use, history of ischemic cardiomyopathy status post cardiac arrest resulting from respiratory arrest during acute COPD exacerbation, hypertension, hyperlipidemia, stage IV chronic kidney disease, BPH, previous bladder cancer status post complete minute of chemotherapy and radiation, and colon cancer status post resection and right hemicolectomy. Patient presented to emergency department today secondary to complaints of abdominal pain/distenti on. He reports constipation with abdominal pain and distention for about 1 week. In addition patient reports decreased appetite, nausea and generalized fatigue. 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 Patient denies having increased shortness of breath or increase in or changes in baseline cough. He denies having any fevers, chills, headache, lightheadedness, dizziness, chest pain or palpitations, nasal congestion or postnasal discharge, episodes of vomiting, decreases in her changes in his urinary function, or experiencing any numbness/tingling/weakness/swelling in his extremities. He does report stopping taking many of his medications quite some time ago, states he was previously on Lasix but stopped taking that as well because he did not like urinating in the middle of the night. He underwent full evaluation in the emergency department. Initial vitals upon arrival to facility show blood pressure 189/119, heart rate 109, respiratory rate 20, temp 97.8F, SpO2 of 97% on room air. EKG completed showing sinus rhythm with frequent PVCs. Labs completed and reviewed. CBC showing normocytic anemia with hemoglobin of 10.5. Coagulation profile showing elevated PT of 12.7 and INR 1.2. BMP consistent with stage IV CKD with BUN 24, creatinine 2.08, and GFR of 31 with baseline creatinine around 2.4. Liver profile showing transaminitis with AST of 62, ALT of 108, and alkaline phosphatase of 290. Troponin 0.031 and proBNP of 67,700. Amylase and lipase were normal findings. Urinalysis was negative for blood or infection. CT abdomen and pelvis showing mild to moderate proximal colonic fecal prominence constipation and mild diffuse edema throughout the abdomen and pelvis with bilateral pleural effusions. Chest x-ray consistent with CHF exacerbation superimposed on background of COPD and an 8 mm nodule of left upper lobe. Patient was admitted under the services with consultation to cardiology, pulmonology, nephrology, and general surgery. Physical exam: Vital signs reviewed and stable. General: Nontoxic, no distress and appears stated age. Derm: Skin warm and dry, normal coloration for ethnicity. Head: Atraumatic, normocephalic and symmetric. Eyes: EOMs intact, no lid lag, and anicteric sclera Mouth: no lip lesions, mucus membranes moist Cardiovascular: regular rate and rhythm with normal S1S2, murmur, positive posterior tibial pulses bilaterally, and cap refill < 2 seconds. Lungs: Respirations even, regular, and unlabored on room air. Lungs CTA bilaterally, no rhonchi, no rales, no wheezing, and no accessory muscle usage. Abdominal: soft and distended, patient reports diffuse abdominal tenderness worse upon palpation of epigastric and right upper quadrant, no guarding, no appreciable organomegaly Ext: ROM intact. No gross muscle atrophy, scant edema, no contractures Neuro: Speech clear, face symmetrical and CN II-XII grossly intact with no noted focal neuro deficits Psych: Alert and oriented to person, place, time, and situation. Appropriate and pleasant affect. Assessment and Plan of Care: Acute exacerbation of chronic diastolic heart failure History of ischemic cardiomyopathy History of cardiac arrest secondary to respiratory arrest during acute COPD exacerbation Hypertension Hyperlipidemia Stage IV chronic kidney disease COPD with continued nicotine dependence -Cardiology following increasing Losartan to 100 mg daily and in agreement to continue Lasix IVP 40 mg every 12 hours. -Telemetry monitoring -Trend troponins -ProBNP 67,700 -Daily weights -Close monitoring of I's and O's -Cardiac diet -Lasix 40 mg IVP twice daily -Patient to continue aspirin 81 mg daily, atorvastatin 20 mg nightly, carvedilol 25 twice daily, isosorbide mononitrate 30 mg daily, and losartan was increased to 100 mg daily -Continued close monitoring of electrolytes while diuresing. -Echocardiogram to be completed -Nicotine patch 21 mg daily, discussed with patient and recommend smoking cessation. -Pulmonology following, stating will obtain a CT of chest at later date to follow up on pulmonary nodule. Abdominal pain, diffuse pain with pain to right upper quadrant and epigastric tenderness Transaminitis -Gallbladder ultrasound showing small amount of ascites especially near gallbladder with hepatomegaly, hepatic cyst, and mild wall thickening around the gallbladder. -Hepatobiliary scan report showing normal hepatobiliary scan with an abnormal ejection fraction compatible with impaired gallbladder emptying and gallbladder dysfunction. -Gen. surgery following and discussed plans of care, surgery team recommending hepatobiliary scan Constipation -Pt was given Lactulose 30 mg 1 dose resulting in successful bowel movement. -Patient started on MiraLAX 17 g daily. Date and imaging reviewed: -Upon follow-up with hepatobiliary scan report showing normal hepatobiliary scan with an abnormal ejection fraction compatible with impaired gallbladder emptying and gallbladder dysfunction. -Vital signs completed. Blood pressure 149/77, heart rate 64, respiratory rate 20, temp 97.9F, SpO2 92% on room air. CODE STATUS: Full code DVT prophylaxis: Lovenox Anticipated discharge date: Clinical course to determine Anticipated discharge place: Clinical course to determine Patient was seen independently by Nurse Practitioner. This document was prepared using [employer] dictation software. Please allow for errors in subassemblies wirer while rare they do occur. Ramon Russell NP rendered care for this patient independently, reviewed the findings and plan as documented in the note above. I did not physically speak with or examine the patient on this date. Objective - Vital Signs Vital signs: Vital Signs Temp 97.9 F 10/13/23 07:00 Pulse 64 10/13/23 07:00 Resp 20 10/13/23 07:00 BP 149/77 10/13/23 07:00 Pulse Ox 92 L 10/13/23 07:00 FiO2 Intake & Output 10/12/23 10/13/23 10/13/23 18:59 06:59 18:59 Weight 130 kg 53.9 kg Other: Voiding Method Urinal Urinal - Labs CBC & Chem 7: 10/14/23 05:54 10/14/23 05:54 Labs: Abnormal Lab Results - Last 24 Hours (Table) 10/12/23 10/12/23 10/12/23 Range/Units 11:08 11:08 11:08 RBC 3.56 L (4.30-5.90) m/uL Hgb 10.5 L (13.0-17.5) gm/dL Hct 33.3 L (39.0-53.0) % MCHC (31.0-37.0) g/dL RDW 16.7 H (11.5-15.5) % Lymphocytes # 0.8 L (1.0-4.8) k/uL PT 12.7 H (10.0-12.5) sec INR 1.2 H (<1.2) Chloride (98-107) mmol/L Carbon Dioxide (22-30) mmol/L BUN (9-20) mg/dL Creatinine (0.66-1.25) mg/dL Glucose (74-99) mg/dL Calcium (8.4-10.2) mg/dL AST (17-59) U/L ALT (4-49) U/L Alkaline Phosphatase (38-126) U/L Total Protein (6.3-8.2) g/dL Albumin (3.5-5.0) g/dL Urine Protein 2+ H (Negative) Urine Mucus Rare H (None) /hpf 10/12/23 10/13/23 10/13/23 Range/Units 11:08 06:12 06:12 RBC 3.16 L (4.30-5.90) m/uL Hgb 9.3 L (13.0-17.5) gm/dL Hct 30.3 L (39.0-53.0) % MCHC 30.6 L (31.0-37.0) g/dL RDW 16.5 H (11.5-15.5) % Lymphocytes # (1.0-4.8) k/uL PT (10.0-12.5) sec INR (<1.2) Chloride 109 H (98-107) mmol/L Carbon Dioxide 19 L (22-30) mmol/L BUN 24 H 26 H (9-20) mg/dL Creatinine 2.08 H 2.23 H (0.66-1.25) mg/dL Glucose 113 H (74-99) mg/dL Calcium 8.0 L (8.4-10.2) mg/dL AST 62 H (17-59) U/L ALT 108 H 84 H (4-49) U/L Alkaline Phosphatase 290 H 214 H (38-126) U/L Total Protein 6.0 L 5.0 L (6.3-8.2) g/dL Albumin 3.4 L 2.6 L (3.5-5.0) g/dL Urine Protein (Negative) Urine Mucus (None) /hpf
--- NOTE | 2023-10-13 17:02 | P.PN ---
Subjective Progress Note Date: 10/13/23 73-year-old male patient, presented to the hospital because of constipation and difficulty in having bowel movement for the past 3 weeks. He was feeling bloated and he has having some nausea and emesis. He did complain of some epigastric abdominal pain as well. He also reported some interval worsening shortness of breath mainly with exertion. No cough. No sputum production. No chest pain. No fever. No chills. No bright red blood per rectum. In the emergency, the patient was afebrile, hypertensive, and the blood work showed a WBC count of 8.2, hemoglobin 10.5 and a platelet count of 338, BUN is 24 with a creatinine of 2.08 and a sodium level is at 140 and a potassium level is at 4.1. Normal coagulation profile. UA showed +2 protein, the sodium was at 140, po tassium was at 4.1, BUN is at 24 with a creatinine of 2.08, glucose was 113, calcium is 8.6, AST is 62, ALT is 108 and alkaline phosphatase is 290, troponin was 0.03, total protein is at 6 with a albumin of 3.4. ProBNP level was 67,007 100. Troponins are 0.032 respectively. The patient is known to have nonocclusive coronary artery disease, COPD, nonischemic cardiomyopathy, previous history of colon cancer that has been resected back in 2016, chronic stage IV kidney disease, history of bladder cancer post chemoradiation therapy, hypertension hyperlipidemia. He has had previous cardiac arrest back in 2019. He has also had previous ventilator dependent respiratory failure due to COPD/CHF exacerbation back in 2021. The computed tomography scan of the abdomen and pelvis that was done in emergency showed no evidence of any bowel obstruction. There was mild to moderate proximal colonic fecal prominence/constipation. Mild diffuse edema throughout the abdominal and pelvic wall and small amount of pelvic/peritoneal ascites and small left pleural effusions. There is consistent with CHF. Ultrasound the gallbladder showed hepatic cyst, hepatomegaly, normal common bile duct the chest x-ray showed some increased interstitial markings and a small right-sided pleural effusion. No airspace disease. 8 mm nodule in the left upper lobe. Patient is currently on Lasix 40 mg IV every 12 hours. Rest of the outpatient medications have been resumed. Previous echocardiogram from 2021 showed a preserved LV function with an EF of around 50-55%. Normal RV. No pulmonary hypertension. On today's evaluation of 10/13/2023, the patient is being seen for a follow-up. The patient is feeling well. He was able to pass a bowel movement. He was given laxatives. He is also on IV Lasix 40 g every 12 hours. Less short of breath. He underwent a surgical evaluation. A HIDA scan was also ordered and the patient was found to have a normal hepatobiliary scan. There was a normal ejection fraction compatible with impaired gallbladder emptying and some dysfunction. Note that his shortness of breath. It was noted 7.7, he was 9.3, BUN is at 26 with a creatinine of 2.2. Potassium levels at 4.3. A repeat echo guarding and was also done and the patient is a drop in the left ventricle e jection fraction down to 30% and he was found to have mild to moderate mitral regurgitation and he was found to have moderate degree of pulmonary hypertension. Objective - Vital Signs Vital signs: Vital Signs Temp 97.9 F 10/13/23 07:00 Pulse 64 10/13/23 07:00 Resp 20 10/13/23 07:00 BP 149/77 10/13/23 07:00 Pulse Ox 92 L 10/13/23 07:00 FiO2 Intake & Output 10/12/23 10/13/23 10/13/23 18:59 06:59 18:59 Weight 130 kg 53.9 kg 53.9 kg Other: Voiding Method Urinal Urinal - Exam No acute distress, patient is currently 3 L of oxygen by nasal cannula with a pulse ox ranging between 95-96% Head exam was generally normal. There was no scleral icterus or corneal arcus. Mucous membranes were moist. HEENT examination is grossly unremarkable. Neck supple. Full range of motion. No adenopathy thyromegaly or neck vein distention. Cardiovascular examination reveals regular rhythm rate. S1-S2 normal. No S3 or S4. No discernible murmur noted. Lungs reveal scattered bilateral rhonchi and wheezes. There is also crackles at the bases. Breath sounds equal bilaterally. Abdominal exam revealed normal bowel sounds. The abdomen was soft, non-tender, and without masses, organomegaly, or appreciable enlargement of the abdominal aorta. Extremities are intact. No cyanosis clubbing or edema. Skin is without rash or lesion. Neurologically, the patient is sedated - Labs CBC & Chem 7: 10/13/23 06:12 10/13/23 06:12 Labs: Abnormal Lab Results - Last 24 Hours (Table) 10/13/23 10/13/23 Range/Units 06:12 06:12 RBC 3.16 L (4.30-5.90) m/uL Hgb 9.3 L (13.0-17.5) gm/dL Hct 30.3 L (39.0-53.0) % MCHC 30.6 L (31.0-37.0) g/dL RDW 16.5 H (11.5-15.5) % Chloride 109 H (98-107) mmol/L BUN 26 H (9-20) mg/dL Creatinine 2.23 H (0.66-1.25) mg/dL Calcium 8.0 L (8.4-10.2) mg/dL ALT 84 H (4-49) U/L Alkaline Phosphatase 214 H (38-126) U/L Total Protein 5.0 L (6.3-8.2) g/dL Albumin 2.6 L (3.5-5.0) g/dL Assessment and Plan Plan: Constipation, no other acute pathology on a CAT scan of the abdomen and pelvis. Previous EGD that was done in 2017 showed acid reflux and hiatal hernia without obstruction and a colonoscopy showed sigmoid diverticulosis, normal ileocolonic anastomosis and internal hemorrhoids grade 2. The patient was able to pass a bowel movement with the help of laxatives. Gallbladder dysfunction without evidence of any cholecystitis. Dyspnea, chronic, probably attributed to CHF although the shortness of breath is multifactorial as the patient has also COPD. echo cardiac exam showed impairment of LV function with an ejection fraction of 3035% with moderate degree of pulmonary hypertension New-onset CHF with systolic heart failure and ejection fraction of 3035% Acute hypoxic respiratory failure with a mild component of CHF with elevated proBNP level and increased vessel markings of the chest x-ray, currently on IV L asix and the patient is also on 3 L of oxygen by nasal cannula, with systolic heart failure, improved and the patient is currently on room air oxygen and the patient is responding nicely to diuretics. Hypertension with elevated blood pressure, currently under better control Nonocclusive coronary artery disease, limited troponin leak, minimal, EKG showing frequent PVCs and LVH COPD Diastolic heart failure with preserved LV function Previous respiratory failure requiring intubation mechanical ventilation secondary to COPD/CHF back in 2021. Previous history of smoking History of colon cancer, with previous resection, 2017 History of bladder cancer, status post chemoradiation. History of hypertension. History of hyperlipidemia. History of gastroesophageal reflux disease. History of cardiac arrest, 2019. History of stage IV chronic kidney disease. History of BPH. History of anemia. History of restless leg syndrome. Left upper lobe pulmonary nodule, nonspecific findings, will need a CAT scan of the chest later stage once more stable. The patient's previous CAT scan of the chest from 08/31/2022 showed a left anterior subpleural lesion measuring around 13 mm in size. Plan Surgical evaluations been obtained, possible colonoscopy at the later stage Continue IV Lasix Cardiology ventilation regarding CHF and systolic heart failure, please refer to the repeat echocardiogram Resume all medications Blood pressure control is improved and the patient patient is currently on Coreg 25 mg by mouth twice a day, Cozaar 100 mg by mouth daily and Imdur 30 mg by mouth daily. We'll discuss with cardiology regarding further adjustments. Consider the addition of a calcium channel macey such as amlodipine or hydralazine We'll follow, will obtain a CAT scan of the chest, a noncontrast CAT scan of the later stage, regarding the pulmonary nodule Monitor renal functions the patient is taking Lasix Oxygenation is stable and the patient has been transitioned to room air oxygen
[2023-10-13] MEDS: MIRTAZAPINE 15 MG TAB PO SCH (20:00)
[2023-10-13] MEDS: MELATONIN 5 MG TABLET PO SCH (20:00)
[2023-10-13] MEDS: ATORVASTATIN 20 MG TAB PO SCH (20:00)
[2023-10-13] MEDS: HYDROcodone/APAP 5-325MG 1 EACH TAB PO PRN (22:50)
[2023-10-14] MEDS: PIPERACILLIN-TAZOBACTAM 3.375 GM in SODIUM CHLORIDE 0.9% 100 ML IVPB SCH ×3 (00:58→20:35)
[2023-10-14] MEDS: FUROSEMIDE 10 MG/ML 4 ML VIAL IV SCH ×2 (05:59→18:24)
[2023-10-14] MEDS: PANTOPRAZOLE 40 MG TABLET PO SCH (06:00)
[2023-10-14] MEDS: carvediloL 12.5 MG TAB PO SCH ×2 (06:00→18:24)
[2023-10-14 08:40] LABS: HCT 32.5 % (39.6-50.0); MCH 28.5 pg (27.0-32.0); MCHC 30.8 g/dL (32.0-37.0); MCV 92.6 FL (80.0-97.0); Mean Platelet Volume 9.2 FL (9.5-12.2); NRBC Per 100 WBC 0 X 10*3/uL (0.00-0.01); Platelet Count 285 X 10*3/uL (140-440); RBC 3.51 X 10*6/uL (4.40-5.60); RDW 17.1 % (11.5-14.5)
[2023-10-14] MEDS: NICOTINE 21MG/24HR PATCH TRANSDERM SCH (08:52)
[2023-10-14] MEDS: HEPARIN SODIUM,PORCINE 5,000 UNIT/ML 1 ML VIAL SQ SCH ×2 (08:52→16:47)
[2023-10-14] MEDS: ASPIRIN 81 MG PO SCH (08:53)
[2023-10-14] MEDS: ISOSORBIDE MONONITRATE ER 30 MG TAB.ER.24H PO SCH (08:53)
[2023-10-14] MEDS: LOSARTAN 50 MG TAB PO SCH (08:53)
[2023-10-14] MEDS: PARoxetine 20 MG TAB PO SCH (08:53)
[2023-10-14] MEDS: polyethylene glycoL 3350 17 GM POWD.PACK PO SCH (08:54)
[2023-10-14] MEDS: TAMSULOSIN 0.4 MG CAP.ER.24H PO SCH (08:54)
[2023-10-14 09:12] LABS: ALT 63 U/L (10-49); AST 21 U/L (14-35); Albumin 3.1 g/dL (3.8-4.9); Albumin/Globulin Ratio 1.41 Ratio (1.60-3.17); Alkaline Phosphatase 213 U/L (41-126); BUN/Creat Ratio 9.96 Ratio (12.00-20.00); Blood Urea Nitrogen 27.9 mg/dL (9.0-27.0); Calcium 8.2 mg/dL (8.7-10.3); Carbon Dioxide 26.2 mmol/L (21.6-31.8); Chloride 107 mmol/L (96-109); Globulin 2.2 g/dL (1.6-3.3); Glucose 88 mg/dL (70-110); Potassium 3.8 mmol/L (3.5-5.5); Sodium 144 mmol/L (135-145); Total Bilirubin 0.3 mg/dL (0.3-1.2); Total Protein 5.3 g/dL (6.2-8.2)
--- NOTE | 2023-10-14 10:12 | P.PN ---
Subjective HISTORY OF PRESENT ILLNESS: This is a 73-year-old male with a past medical history significant for cardiac arrest, hypertension, hyperlipidemia, nicotine dependence, chronic kidney disease, bladder cancer, colon cancer with previous resection, and pulmonary nodules. Patient follows in the office with Dr. Cardoso. We have been asked to see the patient in consultation for congestive heart failure. Patient examined at the bedside. Patient presented to the hospital with the chief complaint of constipation and shortness of breath. The patient states he has been losing weight recently so he decided to stop taking his Lasix because he thought he might gain weight if he stopped taking it. He states he has not taken his Lasix for a couple months. He reports increasing shortness of breath over the past week. He reports waking up at night short of breath. He denies any chest pain or pressure. He denied any lower extremity edema. He continues to smoke on a daily basis. * EKG reveals sinus mechanism with polymorphic PVCs * Chest xray findings are most typical of CHF superimposed on a back on of COPD with small pleural effusion. 8 mm nodule left upper lobe. * Laboratory data: Significant for hemoglobin 9.3. BUN 26. Creatinine 2.23. Troponin negative 3. ProBNP 67,700. * Current home cardiac medications include losartan 50 mg daily, Imdur 30 mg daily, carvedilol 25 mg twice a day, Lipitor 20 mg at night, and aspirin 81 mg daily * Most recent echocardiogram obtained in May 2022 revealing ejection fraction 55-60% with minimal pericardial effusion * Cardiac catheterization history: September 2020 revealing [id number] nonobstructive coronary artery disease involving the mid LAD, elevated LVEDP, nonischemic cardiomyopathy, severe disease involving right external iliac artery 10/14/2023 Patient examined this morning at the bedside. Patient denies chest pain or pressure. He reports improvement in his shortness of breath. He is laying flat in bed and appears comfortable. He remains on IV Lasix 40 mg every 12 hours. Blood pressure has improved with increase in losartan. Echocardiogram completed revealing ejection fraction 30%, moderate pulmonary hypertension, mild-to-mod erate MR TR PHYSICAL EXAM: VITAL SIGNS: Reviewed. GENERAL: Well-developed in no acute distress. HEENT: Head is normocephalic. Pupils are equal, round. Sclerae anicteric. Mucous membranes of the mouth are moist. Neck supple. No JVD or thyromegaly LUNGS: Respirations even and unlabored. Lungs diminished with increased air exchange noted HEART: Regular rate and rhythm. S1 and S2 heard. Systolic murmur noted ABDOMEN: Soft. Nondistended. Nontender. EXTREMITIES: Normal range of motion. No clubbing or cyanosis. Peripheral pulses intact. No lower extremity edema NEUROLOGIC: Awake and alert. Oriented x 3. ASSESSMENT: Constipation Abdominal pain acute on chronic heart failure with preserved EF, 55-60% in 2021, now with reduced EF of 30% History of nonischemic cardiomyopathy Mild to moderate nonobstructive CAD Chronic kidney disease Hypertension Hyperlipidemia History of cardiac arrest History of bladder cancer History of colon cancer with previous resection Pulmonary nodules Ongoing nicotine dependence History of medication noncompliance PLAN: Continue current cardiac medications May continue IV Lasix for today. However patient is stable for DC from a cardiac standpoint and is to begin oral Lasix 40 mg twice a day at discharge Smoking cessation recommended Medication compliance encouraged. Patient verbalized understanding We will sign off. Please reconsult if needed. Nurse practitioner note has been reviewed by physician. Signing provider agrees with the documented findings, assessment, and plan of care. Objective - Vital Signs Vital signs: Vital Signs Temp 97.6 F 10/14/23 07:00 Pulse 50 L 10/14/23 07:00 Resp 16 10/14/23 07:00 BP 152/47 10/14/23 07:00 Pulse Ox 94 L 10/14/23 07:00 FiO2 Intake & Output 10/13/23 10/14/23 10/14/23 18:59 06:59 18:59 Intake Total 118 Balance 118 Weight 53.9 kg 51 kg Intake: Oral 118 Other: Voiding Method Urinal - Labs CBC & Chem 7: 10/14/23 05:54 10/14/23 05:54 Labs: Abnormal Lab Results - Last 24 Hours (Table) 10/14/23 10/14/23 Range/Units 05:54 05:54 RBC 3.51 L (4.40-5.60) X 10*6/uL Hgb 10.0 L (13.0-17.0) g/dL Hct 32.5 L (39.6-50.0) % MCHC 30.8 L (32.0-37.0) g/dL RDW 17.1 H (11.5-14.5) % MPV 9.2 L (9.5-12.2) FL BUN 27.9 H (9.0-27.0) mg/dL Creatinine 2.8 H (0.6-1.5) mg/dL Est GFR (CKD-EPI) 23 L (>=60) BUN/Creatinine Ratio 9.96 L (12.00-20.00) Ratio Calcium 8.2 L (8.7-10.3) mg/dL ALT 63 H (10-49) U/L Alkaline Phosphatase 213 H (41-126) U/L Total Protein 5.3 L (6.2-8.2) g/dL Albumin 3.1 L (3.8-4.9) g/dL Albumin/Globulin Ratio 1.41 L (1.60-3.17) Ratio
--- NOTE | 2023-10-14 11:22 | P.NPCON ---
History of Present Illness - History of Present Illness Patient is a 73-year-old male with history of COPD, ischemic cardiomyopathy, COPD and stage IV chronic kidney disease with baseline creatinine around 2.4-2.9 mg/dL. Etiology is nephrosclerosis. Patient is admitted to the hospital with complaints of abdominal pain and distention and shortness of breath. Patient stated that he had stopped taking Lasix for a few weeks as he thought it was making him lose weight. No history of recent use of NSAIDs Blood pressure is not low Patient is maintained on angiotensin receptor blockers. Lasix is currently at 40 mg IV every 12 hours Serum creatinine was 2.0 on admission and is at 2.8 today. Patient has been at 2.4-3.0 mg/dL previously. History of bladder cancer. History of cardiomyopathy with EF of 30% Review of Systems As per HPI Past Medical History Past Medical History: Cancer, Heart Failure, COPD, GERD/Reflux, Hyperlipidemia, Hypertension, Prostate Disorder, Renal Disease Additional Past Medical History / Comment(s): Pt recently admitted to [facility] on 06/11/22 with acute on chronic CHF, hyperkalemia. Other hx: Recent bladder cancer/completed oral chemo and radiation, past colon cancer with resection, nonischemic cardiomyopathy, 2020 cardiac arrent/Vtach, CKD stage IV, BPH, hemorrhoids, anemia, RLS, chronic low back pain History of Any Multi-Drug Resistant Organisms: None Reported Past Surgical History: Appendectomy, Bowel Resection, Heart Catheterization, Orthopedic Surgery Additional Past Surgical History / Comment(s): R hemicolectomy, colonoscopies, nasal surgery to repair ulcer, R knee arthroscopic surgeries (ACL repair and meniscus repair), L heel fusion d/t trauma, L arm bicep surgery. Past Anesthesia/Blood Transfusion Reactions: No Reported Reaction Past Psychological History: Anxiety Additional Psychological History / Comment(s): Pt resides with his significant other. He is a . He is independent. Smoking Status: Current every day smoker Past Alcohol Use History: None Reported Additional Past Alcohol Use History / Comment(s): STARTED AGE 19, SMOKES 1/2 PPD Past Drug Use History: None Reported Additional Drug Use History / Comment(s): Past cocaine use. - Past Family History Mother Family Medical History: Cancer Additional Family Medical History / Comment(s): BREAST Sister(s) Family Medical History: Deep Vein Thrombosis (DVT) Additional Family Medical History / Comment(s): 1 sister had leukemia, and another sister had non hodgkins. Father Family Medical History: COPD Additional Family Medical History / Comment(s): FROM CARDIAC ARREST Medications and Allergies Home Medications Medication Instructions Recorded Confirmed Type Tamsulosin [Flomax] 0.4 mg PO DAILY 06/04/16 10/12/23 History Atorvastatin Calcium [Lipitor] 20 mg PO HS 06/24/21 10/12/23 History Melatonin 10 mg PO HS 05/31/22 10/12/23 History Mirtazapine [Remeron] 30 mg PO HS 05/31/22 10/12/23 History Aspirin 81 mg PO DAILY #30 tab 06/12/22 10/12/23 Rx Isosorbide Mononitrate ER [Imdur] 30 mg PO DAILY 30 Days #30 tab 08/03/22 10/12/23 Rx Cholecalciferol [Vitamin D3 (10 20 mcg PO DAILY 10/12/23 10/12/23 History Mcg = 400 Iu)] Losartan Potassium 50 mg PO DAILY 10/12/23 10/12/23 History Nitroglycerin Sl Tabs [Nitrostat] 0.4 mg SUBLINGUAL Q5M PRN 10/12/23 10/12/23 History PARoxetine HCL [Paxil] 20 mg PO DAILY 10/12/23 10/12/23 History carvediloL [Coreg] 25 mg PO BID 10/12/23 10/12/23 History Furosemide [Lasix] 40 mg PO BID #60 tablet 10/14/23 Rx Allergies Allergy/AdvReac Type Severity Reaction Status Date / Time lisinopril Allergy Angioedema., Verified 10/12/23 17:00 swollen testicle, rash Physical Exam Vitals: Vital Signs Temp Pulse Resp BP BP Pulse Ox 10/14/23 07:00 97.6 F 50 L 16 152/47 94 L 10/14/23 02:27 98.2 F 68 15 115/68 96 10/14/23 02:24 60 15 10/13/23 22:45 97.4 F L 60 15 135/69 97 10/13/23 20:00 75 16 10/13/23 18:14 98.3 F 75 16 136/64 95 10/13/23 15:00 98.2 F 68 18 143/78 97 Intake and Output 10/13/23 10/14/23 10/14/23 22:59 06:59 14:59 Other: Voiding Method Urinal Urinal Weight 51 kg patient is awake, comfortable, no acute distress. Examination of the heart S1 and S2 Examination of the lungs bilateral breath sounds are heard Abdomen is soft nontender Examination of lower extremity shows no significant edema RUG HOOKER exam grossly intact Results - Lab Results Most recent lab results Calcium 8.2 mg/dL (8.7-10.3) L 10/14/23 05:54 Magnesium 2.2 mg/dL (1.6-2.3) 10/13/23 06:12 10/14/23 05:54 10/14/23 05:54 Assessment and Plan Assessment: 1. Chronic kidney disease stage IV secondary to nephrosclerosis NKF stage IV with baseline creatinine 2.4-3 mg/dL.. Creatinine was 2.0 on admission due to volume overload. Currently maintained on IV Lasix which we can switch to oral. 2. Cardiomyopathy with EF of 30% 3. Abdominal pain, distention most likely related to constipation 4. Volume overload, currently improved 5. COPD with continued nicotine dependence 6. Hypertension with CK D stage IV Plan: Can switch Lasix to oral, 40 mg twice a day Continue with angiotensin receptor blockers Follow-up as outpatient in 1 week for CK D and volume management. Thank you for the consultation. We will continue to follow the patient with you during his hospitalization.
[2023-10-14] MEDS ORDERED: LACTULOSE 20 GM/30 ML CUP PO ONE (14:50)
--- NOTE | 2023-10-14 14:52 | P.PN ---
Subjective Progress Note Date: 10/14/23 CHIEF COMPLAINT: Shortness of breath HISTORY OF PRESENT ILLNESS: Patient admitted to the hospital with an acute CHF exacerbation. He did have mild gallbladder wall thickening noted on ultrasound. HIDA scan completed the had shown a normal hepatobiliary scan. Abnormal ejection fraction compatible with impaired gallbladder emptying and gallbladder dysfunction. Patient denies any abdominal pain. He is tolerating diet. Patient reports that he is feeling ready for discharge. Afebrile. WBC 8.10 Hgb 10 platelets 285 sodium 144 potassium 3.8 creatinine 2.8 PHYSICAL EXAM: VITAL SIGNS: Reviewed GENERAL: Well-developed in no acute distress. HEENT: No sclera icterus. Extraocular movements grossly intact. Moist buccal mucosa. Head is atraumatic, normocephalic. Hears conversational speech. No nasal drainage. NECK: Supple without lymphadenopathy. CHEST: Non-labored respirations and equal bilateral excursions. CARDIOVASCULAR: Palpable 2+ radial pulses. ABDOMEN: Soft. Nondistended. Nontender. MUSCULOSKELETAL: No clubbing or cyanosis. NEUROLOGIC: No focal or lateralizing signs. Cranial nerves II through XII grossly intact. PSYCH: Appropriate affect. Alert and oriented to person, place and time. SKIN: Well perfused. Good skin turgor. ASSESSMENT: 1. Mild gallbladder wall thickening noted on ultrasound. HIDA scan showed no evidence of cholecystitis 2. Acute CHF exacerbation 3. Mildly elevated LFTs 4. Constipation 5. History of ischemic cardiomyopathy 6. History of COPD 7. Hypertension 8. Hyperlipidemia 9. Chronic kidney disease 10. History of colon cancer with right hemicolectomy 11. History of bladder cancer status post chemoradiation treatment 1 year ago 12. Nicotine dependence PLAN: -Patient can be discharged from surgical standpoint -Recommend to keep scheduled appointment for colonoscopy outpatient -We'll give another dose of lactulose for constipation Physician Die Finisher note has been reviewed by physician. Signing provider agrees with the documented findings, assessment, and plan of care. CHIEF COMPLAINT: Congestive heart failure HISTORY OF PRESENT ILLNESS: The patient is a 73 year old male who comes in with exacerbation of congestive heart failure. He complains of constipation. He is tolerating diet. REVIEW OF ORGAN SYSTEMS: No fevers or chills. Improvement of breathing from congestive heart failure. No nausea or vomiting. PHYSICAL EXAM: VITALS: Reviewed CONSTITUTIONAL: Well developed and in no acute distress. EYES: Conjuctivae without sclera icterus. Extraocular movements grossly intact. HEAD, EARS, NOSE, THROAT: Moist buccal mucosa. Head is atraumatic, normocephalic. Hears conversational speech. No nasal drainage. RESPIRATORY: Mild labored respirations and equal bilateral excursions. CARDIOVASCULAR: Palpable 2+ radial pulses. ABDOMEN: No peritonitis. MUSCULOSKELETAL: No clubbing cyanosis or edema SKIN: Warm and well perfused with good skin turgor. NEUROLOGIC: Cranial nerves II through XII grossly intact. No focal or lateralizing signs. PSYCH: Appropriate affect. Alert and oriented to person, place and time. Displays appropriate insight. STUDIES: HIDA scan independent review demonstrates no evidence of acute cholecystitis. ASSESSMENT: 1. Abdominal pain 2. CHF exacerbation 3. Constipation 4. History of colon cancer 5. History of bladder cancer 6. Cardiomegaly with cardiomyopathy PLAN: 1. Recommend lactulose for chronic constipation 2. Otherwise surgically stable for discharge and follow-up as outpatient for outpatient endoscopy Objective - Vital Signs Vital signs: Vital Signs Temp 98 F 10/14/23 13:10 Pulse 70 10/14/23 13:10 Resp 16 10/14/23 13:10 BP 114/69 10/14/23 13:10 Pulse Ox 97 10/14/23 13:10 FiO2 Intake & Output 10/13/23 10/14/23 10/14/23 18:59 06:59 18:59 Intake Total 118 118 Balance 118 118 Weight 53.9 kg 51 kg Intake: Oral 118 118 Other: Voiding Method Urinal - Labs CBC & Chem 7: 10/14/23 05:54 10/14/23 05:54 Labs: Abnormal Lab Results - Last 24 Hours (Table) 10/14/23 10/14/23 Range/Units 05:54 05:54 RBC 3.51 L (4.40-5.60) X 10*6/uL Hgb 10.0 L (13.0-17.0) g/dL Hct 32.5 L (39.6-50.0) % MCHC 30.8 L (32.0-37.0) g/dL RDW 17.1 H (11.5-14.5) % MPV 9.2 L (9.5-12.2) FL BUN 27.9 H (9.0-27.0) mg/dL Creatinine 2.8 H (0.6-1.5) mg/dL Est GFR (CKD-EPI) 23 L (>=60) BUN/Creatinine Ratio 9.96 L (12.00-20.00) Ratio Calcium 8.2 L (8.7-10.3) mg/dL ALT 63 H (10-49) U/L Alkaline Phosphatase 213 H (41-126) U/L Total Protein 5.3 L (6.2-8.2) g/dL Albumin 3.1 L (3.8-4.9) g/dL Albumin/Globulin Ratio 1.41 L (1.60-3.17) Ratio
--- NOTE | 2023-10-14 18:49 | P.PN ---
Subjective Progress Note Date: 10/14/23 73-year-old male patient, presented to the hospital because of constipation and difficulty in having bowel movement for the past 3 weeks. He was feeling bloated and he has having some nausea and emesis. He did complain of some epigastric abdominal pain as well. He also reported some interval worsening shortness of breath mainly with exertion. No cough. No sputum production. No chest pain. No fever. No chills. No bright red blood per rectum. In the emergency, the patient was afebrile, hypertensive, and the blood work showed a WBC count of 8.2, hemoglobin 10.5 and a platelet count of 338, BUN is 24 with a creatinine of 2.08 and a sodium level is at 140 and a potassium level is at 4.1. Normal coagulation profile. UA showed +2 protein, the sodium was at 140, po tassium was at 4.1, BUN is at 24 with a creatinine of 2.08, glucose was 113, calcium is 8.6, AST is 62, ALT is 108 and alkaline phosphatase is 290, troponin was 0.03, total protein is at 6 with a albumin of 3.4. ProBNP level was 67,007 100. Troponins are 0.032 respectively. The patient is known to have nonocclusive coronary artery disease, COPD, nonischemic cardiomyopathy, previous history of colon cancer that has been resected back in 2016, chronic stage IV kidney disease, history of bladder cancer post chemoradiation therapy, hypertension hyperlipidemia. He has had previous cardiac arrest back in 2019. He has also had previous ventilator dependent respiratory failure due to COPD/CHF exacerbation back in 2021. The computed tomography scan of the abdomen and pelvis that was done in emergency showed no evidence of any bowel obstruction. There was mild to moderate proximal colonic fecal prominence/constipation. Mild diffuse edema throughout the abdominal and pelvic wall and small amount of pelvic/peritoneal ascites and small left pleural effusions. There is consistent with CHF. Ultrasound the gallbladder showed hepatic cyst, hepatomegaly, normal common bile duct the chest x-ray showed some increased interstitial markings and a small right-sided pleural effusion. No airspace disease. 8 mm nodule in the left upper lobe. Patient is currently on Lasix 40 mg IV every 12 hours. Rest of the outpatient medications have been resumed. Previous echocardiogram from 2021 showed a preserved LV function with an EF of around 50-55%. Normal RV. No pulmonary hypertension. On today's evaluation of 10/13/2023, the patient is being seen for a follow-up. The patient is feeling well. He was able to pass a bowel movement. He was given laxatives. He is also on IV Lasix 40 g every 12 hours. Less short of breath. He underwent a surgical evaluation. A HIDA scan was also ordered and the patient was found to have a normal hepatobiliary scan. There was a normal ejection fraction compatible with impaired gallbladder emptying and some dysfunction. Note that his shortness of breath. It was noted 7.7, he was 9.3, BUN is at 26 with a creatinine of 2.2. Potassium levels at 4.3. A repeat echo guarding and was also done and the patient is a drop in the left ventricle e jection fraction down to 30% and he was found to have mild to moderate mitral regurgitation and he was found to have moderate degree of pulmonary hypertension. Evaluation of 10/14/2023, the patient is doing better symptoms of his breathing. He still having some issues with constipation. On anoscopy is scheduled to be done on outpatient basis. The patient was given lactulose. At the same time, his CHF is being optimized. The patient is currently on IV Lasix. The fluid balance has not been accurately reported. Nevertheless, his BUN is 27 with a creatinine of 2.8 and a sodium level is at 144. Is currently on room air oxygen. His diuretics in the form of IV Lasix at a dose of 40 mg every 12 hours. No other complaints otherwise for now. Objective - Vital Signs Vital signs: Vital Signs Temp 98 F 10/14/23 13:10 Pulse 66 10/14/23 18:23 Resp 17 10/14/23 18:23 BP 151/75 10/14/23 18:23 Pulse Ox 98 10/14/23 18:23 FiO2 Intake & Output 10/13/23 10/14/23 10/14/23 18:59 06:59 18:59 Intake Total 118 458 Balance 118 458 Weight 53.9 kg 51 kg Intake: Oral 118 458 Other: Voiding Method Urinal - Exam No acute distress, patient is currently 3 L of oxygen by nasal cannula with a pulse ox ranging between 95-96% Head exam was generally normal. There was no scleral icterus or corneal arcus. Mucous membranes were moist. HEENT examination is grossly unremarkable. Neck supple. Full range of motion. No adenopathy thyromegaly or neck vein distention. Cardiovascular examination reveals regular rhythm rate. S1-S2 normal. No S3 or S4. No discernible murmur noted. Lungs reveal scattered bilateral rhonchi and wheezes. There is also crackles at the bases. Breath sounds equal bilaterally. Abdominal exam revealed normal bowel sounds. The abdomen was soft, non-tender, and without masses, organomegaly, or appreciable enlargement of the abdominal aorta. Extremities are intact. No cyanosis clubbing or edema. Skin is without rash or lesion. Neurologically, the patient is sedated - Labs CBC & Chem 7: 10/14/23 05:54 10/14/23 05:54 Labs: Abnormal Lab Results - Last 24 Hours (Table) 10/14/23 10/14/23 Range/Units 05:54 05:54 RBC 3.51 L (4.40-5.60) X 10*6/uL Hgb 10.0 L (13.0-17.0) g/dL Hct 32.5 L (39.6-50.0) % MCHC 30.8 L (32.0-37.0) g/dL RDW 17.1 H (11.5-14.5) % MPV 9.2 L (9.5-12.2) FL BUN 27.9 H (9.0-27.0) mg/dL Creatinine 2.8 H (0.6-1.5) mg/dL Est GFR (CKD-EPI) 23 L (>=60) BUN/Creatinine Ratio 9.96 L (12.00-20.00) Ratio Calcium 8.2 L (8.7-10.3) mg/dL ALT 63 H (10-49) U/L Alkaline Phosphatase 213 H (41-126) U/L Total Protein 5.3 L (6.2-8.2) g/dL Albumin 3.1 L (3.8-4.9) g/dL Albumin/Globulin Ratio 1.41 L (1.60-3.17) Ratio Assessment and Plan Plan: Constipation, no other acute pathology on a CAT scan of the abdomen and pelvis. Previous EGD that was done in 2017 showed acid reflux and hiatal hernia without obstruction and a colonoscopy showed sigmoid diverticulosis, normal ileocolonic anastomosis and internal hemorrhoids grade 2. The patient was able to pass a bowel movement with the help of laxatives. Gallbladder dysfunction without evidence of any cholecystitis. Dyspnea, chronic, probably attributed to CHF although the shortness of breath is multifactorial as the patient has also COPD. echo cardiac exam showed impairment of LV function with an ejection fraction of 3035% with moderate degree of pulmonary hypertension New-onset CHF with systolic heart failure and ejection fraction of 3035% Acute hypoxic respiratory failure with a mild component of CHF with elevated proBNP level and increased vessel markings of the chest x-ray, currently on IV Lasix and the patient is also on 3 L of oxygen by nasal cannula, with systolic heart failure, improved and the patient is currently on room air oxygen and the patient is responding nicely to diuretics. Hypertension with elevated blood pressure, currently under better control Nonocclusive coronary artery disease, limited troponin leak, minimal, EKG showing frequent PVCs and LVH COPD Diastolic heart failure with preserved LV function Previous respiratory failure requiring intubation mechanical ventilation secondary to COPD/CHF back in 2021. Previous history of smoking History of colon cancer, with previous resection, 2016 History of bladder cancer, status post chemoradiation. History of hypertension. History of hyperlipidemia. History of gastroesophageal reflux disease. History of cardiac arrest, 2019. History of stage IV chronic kidney disease. History of BPH. History of anemia. History of restless leg syndrome. Left upper lobe pulmonary nodule, nonspecific findings, will need a CAT scan of the chest later stage once more stable. The patient's previous CAT scan of the chest from 08/31/2022 showed a left anterior subpleural lesion measuring around 13 mm in size. Plan Surgical evaluations been obtained, possible colonoscopy at the later stage is to be considered to be done on outpatient basis and the patient is currently on lactulose Monitor renal function as the patient is being diuresed Continue IV Lasix, May switch the patient's oral Lasix as of tomorrow Cardiology ventilation regarding CHF and systolic heart failure, please refer to the repeat echocardiogram Resume all medications Blood pressure control is improved and the patient patient is currently on Coreg 25 mg by mouth twice a day, Cozaar 100 mg by mouth daily and Imdur 30 mg by mouth daily. We'll discuss with cardiology regarding further adjustments. Consider the addition of a calcium channel macey such as amlodipine or hydralazine We'll follow, will obtain a CAT scan of the chest, a noncontrast CAT scan of the later stage, regarding the pulmonary nodule Monitor renal functions the patient is taking Lasix Oxygenation is stable and the patient has been transitioned to room air oxygen
--- NOTE | 2023-10-14 19:05 | P.PN ---
Subjective Progress Note Date: 10/14/23 Hospital course: Patient is a pleasant 73-year-old male with a past medical history of COPD with continued nicotine use, history of ischemic cardiomyopathy status post cardiac arrest resulting from respiratory arrest during acute COPD exacerbation, hypertension, hyperlipidemia, stage IV chronic kidney disease, BPH, previous bladder cancer status post complete minute of chemotherapy and radiation, and colon cancer status post resection and right hemicolectomy. Patient presented to emergency department today secondary to complaints of abdominal pain/distenti on. He reports constipation with abdominal pain and distention for about 1 week. In addition patient reports decreased appetite, nausea and generalized fatigue. He does report having COPD and smokes one pack of cigarettes daily, he denies following with a meat carver and reports his seismograph operator is Dr. Crain. Patient denies having increased shortness of breath or increase in or changes in baseline cough. He denies having any fevers, chills, headache, lightheadedness, dizziness, chest pain or palpitations, nasal congestion or postnasal discharge, episodes of vomiting, decreases in her changes in his urinary function, or experiencing any numbness/tingling/weakness/swelling in his extremities. He does report stopping taking many of his medications quite some time ago, states he was previously on Lasix but stopped taking that as well because he did not like urinating in the middle of the night. He underwent full evaluation in the emergency department. Initial vitals upon arrival to facility show blood pressure 189/119, heart rate 109, respiratory rate 20, temp 97.8F, SpO2 of 97% on room air. EKG completed showing sinus rhythm with frequent PVCs. Labs completed and reviewed. CBC showing normocytic anemia with hemoglobin of 10.5. Coagulation profile showing elevated PT of 12.7 and INR 1.2. BMP consistent with stage IV CKD with BUN 24, creatinine 2.08, and GFR of 31 with baseline creatinine around 2.4. Liver profile showing transaminitis with AST of 62, ALT of 108, and alkaline phosphatase of 290. Troponin 0.031 and proBNP of 67,700. Amylase and lipase were normal findings. Urinalysis was negative for blood or infection. CT abdomen and pelvis showing mild to moderate proximal colonic fecal prominence constipation and mild diffuse edema throughout the abdomen and pelvis with bilateral pleural effusions. Chest x-ray consistent with CHF exacerbation superimposed on background of COPD and an 8 mm nodule of left upper lobe. Patient was admitted under the services with consultation to cardiology, pulmonology, nephrology, and general surgery. Physical exam: Vital signs reviewed and stable. General: Nontoxic, no distress and appears stated age. Derm: Skin warm and dry, normal coloration for ethnicity. Head: Atraumatic, normocephalic and symmetric. Eyes: EOMs intact, no lid lag, and anicteric sclera Mouth: no lip lesions, mucus membranes moist Cardiovascular: regular rate and rhythm with normal S1S2, murmur, positive posterior tibial pulses bilaterally, and cap refill < 2 seconds. Lungs: Respirations even, regular, and unlabored on room air. Lungs CTA bilaterally, no rhonchi, no rales, no wheezing, and no accessory muscle usage. Abdominal: soft and distended, patient reports diffuse abdominal tenderness worse upon palpation of epigastric and right upper quadrant, no guarding, no appreciable organomegaly Ext: ROM intact. No gross muscle atrophy, scant edema, no contractures Neuro: Speech clear, face symmetrical and CN II-XII grossly intact with no noted focal neuro deficits Psych: Alert and oriented to person, place, time, and situation. Appropriate and pleasant affect. Assessment and Plan of Care: Acute Kidney injury on Stage IV chronic kidney disease Acute exacerbation of chronic diastolic heart failure History of ischemic cardiomyopathy History of cardiac arrest secondary to respiratory arrest during acute COPD exacerbation Hypertension Hyperlipidemia COPD with continued nicotine dependence -Cardiology following, reviewed documentation in chart. -Patient with worsening renal function, we will discontinue IV Lasix and start patient on oral Lasix tomorrow morning and hold losartan at this time. -Continue Telemetry monitoring and close monitoring of I's and O's -Patient to continue aspirin 81 mg daily, atorvastatin 20 mg nightly, carvedilol 25 twice daily, isosorbide mononitrate 30 mg daily, and losartan was initially increased to 100 mg daily but patient with acute kidney injury on chronic kidney disease and losartan held at this time. -Nicotine patch 21 mg daily, discussed with patient and recommend smoking cessation. -Pulmonology following, stating will obtain a CT of chest at later date to follow up on pulmonary nodule. Abdominal pain, diffuse pain with pain to right upper quadrant and epigastric tenderness Transaminitis -Gallbladder ultrasound showing small amount of ascites especially near gallbladder with hepatomegaly, hepatic cyst, and mild wall thickening around the gallbladder. -Hepatobiliary scan report showing normal hepatobiliary scan with an abnormal ejection fraction compatible with impaired gallbladder emptying and gallbladder dysfunction. -Gen. surgery following and discussed plans of care, recommending outpatient colonoscopy and repeating dose of lactulose. Constipation, resolved -Continue MiraLAX 17 g daily. Date and imaging reviewed: -Labs completed and reviewed. CBC showing normocytic anemia with hemoglobin of 10.0. BMP revealing worsening renal function with BUN of 27.9, creatinine 2.8, and GFR of 23. Liver profile showing continued elevation of ALT is 63" and phosphatase of 213. -Vital signs completed. Blood pressure 152/47, heart rate 50, respiratory rate 16, temp 97.6F, SpO2 of 94% on room air. CODE STATUS: Full code DVT prophylaxis: Lovenox Anticipated discharge date: Likely 24-[address]: Home Patient was seen independently by Nurse Practitioner. This document was prepared using [employer] dictation software. Please allow for errors in central melt specialist while rare they do occur. Ramon Russell NP rendered care for this patient independently, reviewed the findings and plan as documented in the note above. I did not physically speak with or examine the patient on this date. Objective - Vital Signs Vital signs: Vital Signs Temp 97.6 F 10/14/23 07:00 Pulse 50 L 10/14/23 07:00 Resp 16 10/14/23 07:00 BP 152/47 10/14/23 07:00 Pulse Ox 94 L 10/14/23 07:00 FiO2 Intake & Output 10/13/23 10/14/23 10/14/23 18:59 06:59 18:59 Intake Total 118 Balance 118 Weight 53.9 kg 51 kg Intake: Oral 118 Other: Voiding Method Urinal - Labs CBC & Chem 7: 10/14/23 05:54 10/14/23 05:54 Labs: Abnormal Lab Results - Last 24 Hours (Table) 10/14/23 Range/Units 05:54 RBC 3.51 L (4.40-5.60) X 10*6/uL Hgb 10.0 L (13.0-17.0) g/dL Hct 32.5 L (39.6-50.0) % MCHC 30.8 L (32.0-37.0) g/dL RDW 17.1 H (11.5-14.5) % MPV 9.2 L (9.5-12.2) FL
[2023-10-14] MEDS: MELATONIN 5 MG TABLET PO SCH (20:34)
[2023-10-14] MEDS: MIRTAZAPINE 15 MG TAB PO SCH (20:35)
[2023-10-14] MEDS: ATORVASTATIN 20 MG TAB PO SCH (20:35)
[2023-10-14] MEDS: HYDROcodone/APAP 5-325MG 1 EACH TAB PO PRN (20:47)
[2023-10-15] MEDS: HEPARIN SODIUM,PORCINE 5,000 UNIT/ML 1 ML VIAL SQ SCH ×2 (00:58→08:31)
[2023-10-15 02:57] VITALS: PULSE 66
[2023-10-15] MEDS: PANTOPRAZOLE 40 MG TABLET PO SCH (06:36)
[2023-10-15] MEDS: carvediloL 12.5 MG TAB PO SCH (06:36)
[2023-10-15 07:32] VITALS: BP 156/65; RESP 16; TEMP 98.3
[2023-10-15] MEDS: ASPIRIN 81 MG PO SCH (08:31)
[2023-10-15] MEDS: PARoxetine 20 MG TAB PO SCH (08:32)
[2023-10-15] MEDS: PIPERACILLIN-TAZOBACTAM 3.375 GM in SODIUM CHLORIDE 0.9% 100 ML IVPB SCH (08:32)
[2023-10-15] MEDS: ISOSORBIDE MONONITRATE ER 30 MG TAB.ER.24H PO SCH (08:32)
[2023-10-15] MEDS: NICOTINE 21MG/24HR PATCH TRANSDERM SCH (08:32)
[2023-10-15] MEDS: TAMSULOSIN 0.4 MG CAP.ER.24H PO SCH (08:32)
[2023-10-15] MEDS: polyethylene glycoL 3350 17 GM POWD.PACK PO SCH (08:33)
[2023-10-15] MEDS ORDERED: FUROSEMIDE 40 MG TAB PO SCH (09:00)
[2023-10-15 09:18] LABS: ALT 62 U/L (10-49); AST 19 U/L (14-35); Albumin 3.5 g/dL (3.8-4.9); Albumin/Globulin Ratio 1.46 Ratio (1.60-3.17); Alkaline Phosphatase 195 U/L (41-126); BUN/Creat Ratio 10.18 Ratio (12.00-20.00); Blood Urea Nitrogen 28.5 mg/dL (9.0-27.0); Calcium 8.8 mg/dL (8.7-10.3); Carbon Dioxide 26.1 mmol/L (21.6-31.8); Chloride 105 mmol/L (96-109); Globulin 2.4 g/dL (1.6-3.3); Glucose 88 mg/dL (70-110); Magnesium 2.1 mg/dL (1.5-2.4); Potassium 4.1 mmol/L (3.5-5.5); Sodium 144 mmol/L (135-145); Total Bilirubin 0.2 mg/dL (0.3-1.2); Total Protein 5.9 g/dL (6.2-8.2)
--- NOTE | 2023-10-15 09:58 | P.PN ---
Subjective Patient is seen in follow-up for chronic kidney disease. Renal function stable. On oral Lasix. Denies chest pain or shortness of breath. Has been voiding. Vital signs are stable. General: No acute distress. HEENT: Head exam is unremarkable. LUNGS: No audible rhonchi or wheezes. HEART: Rate and Rhythm are regular. ABDOMEN: Nontender. EXTREMITITES: No edema. Objective - Vital Signs Vital signs: Vital Signs Temp 98.3 F 10/15/23 07:00 Pulse 66 10/15/23 07:00 Resp 16 10/15/23 07:00 BP 156/65 10/15/23 07:00 Pulse Ox 95 10/15/23 07:00 FiO2 Intake & Output 10/14/23 10/15/23 10/15/23 18:59 06:59 18:59 Intake Total 458 Balance 458 Weight 49.3 kg Intake: Oral 458 - Labs CBC & Chem 7: 10/14/23 05:54 10/15/23 05:43 Labs: Abnormal Lab Results - Last 24 Hours (Table) 10/15/23 Range/Units 05:43 Anion Gap 12.90 H (4.00-12.00) mmol/L BUN 28.5 H (9.0-27.0) mg/dL Creatinine 2.8 H (0.6-1.5) mg/dL Est GFR (CKD-EPI) 23 L (>=60) BUN/Creatinine Ratio 10.18 L (12.00-20.00) Ratio Total Bilirubin 0.2 L (0.3-1.2) mg/dL ALT 62 H (10-49) U/L Alkaline Phosphatase 195 H (41-126) U/L Total Protein 5.9 L (6.2-8.2) g/dL Albumin 3.5 L (3.8-4.9) g/dL Albumin/Globulin Ratio 1.46 L (1.60-3.17) Ratio Assessment and Plan Plan: Assessment: 1. Chronic kidney disease stage IV secondary to nephrosclerosis. GFR near baseline. No hydronephrosis noted on CAT scan. Patient's creatinine back in 2020 was near 3. He had no proteinuria on UA at that time. Patient did not follow up in the office after July 2021. UA will be repeated outpatient and proteinuria will be quantified. 2. Acute on chronic systolic CHF with ejection fraction of 30% with mild to moderate mitral regurgitation and moderate pulmonary hypertension. 3. Hypertension with chronic kidney disease. Stable. 4. Volume overload. Improved for diuresis. 5. Gallbladder wall thickening. No intervention is planned. Seen by surgery. Plan: Maintain Lasix. Resume losartan at a lower dose. Will benefit from sglt2i - can be started outpatient if gfr improves. Repeat BMP and magnesium level 2 to 3 days postdischarge. Follow up outpatient in 1 week. Advised patient to maintain low salt diet and fluid restriction of less than 50 ounces per day. He is also advised to monitor his weight closely at home and notify physician if develops edema or gains more than 3 pounds in 1 week duration.
[2023-10-15] MEDS ORDERED: LOSARTAN 25 MG TAB PO SCH (10:00)
[2023-10-15 10:19] LABS: HCT 35.1 % (39.6-50.0); HGB 10.9 g/dL (13.0-17.0); MCH 28.9 pg (27.0-32.0); MCHC 31.1 g/dL (32.0-37.0); MCV 93.1 FL (80.0-97.0); Mean Platelet Volume 9.7 FL (9.5-12.2); NRBC Per 100 WBC 0 X 10*3/uL (0.00-0.01); Platelet Count 336 X 10*3/uL (140-440); RBC 3.77 X 10*6/uL (4.40-5.60); RDW 17.1 % (11.5-14.5)
--- NOTE | 2023-10-15 11:32 | P.PN ---
Subjective Progress Note Date: 10/15/23 NAEON. No F/C. No SOB or CP. Admits to flatus. No BM. No N/V. No abdominal pain currently. Tolerating diet. Voiding Objective - Vital Signs Vital signs: Vital Signs Temp 98.3 F 10/15/23 07:00 Pulse 66 10/15/23 07:00 Resp 16 10/15/23 07:00 BP 156/65 10/15/23 07:00 Pulse Ox 95 10/15/23 07:00 FiO2 Intake & Output 10/14/23 10/15/23 10/15/23 18:59 06:59 18:59 Intake Total 458 Balance 458 Weight 49.3 kg Intake: Oral 458 - Exam Gen: AxO, NAD Pulm: non-labored respirations Abd: soft, non-tender, minimally distended, no guarding/rebound/rigidity Extrem: no edema seen - Labs CBC & Chem 7: 10/15/23 05:43 10/15/23 05:43 Labs: Abnormal Lab Results - Last 24 Hours (Table) 10/15/23 10/15/23 Range/Units 05:43 05:43 RBC 3.77 L (4.40-5.60) X 10*6/uL Hgb 10.9 L (13.0-17.0) g/dL Hct 35.1 L (39.6-50.0) % MCHC 31.1 L (32.0-37.0) g/dL RDW 17.1 H (11.5-14.5) % Anion Gap 12.90 H (4.00-12.00) mmol/L BUN 28.5 H (9.0-27.0) mg/dL Creatinine 2.8 H (0.6-1.5) mg/dL Est GFR (CKD-EPI) 23 L (>=60) BUN/Creatinine Ratio 10.18 L (12.00-20.00) Ratio Total Bilirubin 0.2 L (0.3-1.2) mg/dL ALT 62 H (10-49) U/L Alkaline Phosphatase 195 H (41-126) U/L Total Protein 5.9 L (6.2-8.2) g/dL Albumin 3.5 L (3.8-4.9) g/dL Albumin/Globulin Ratio 1.46 L (1.60-3.17) Ratio Assessment and Plan Assessment: Patient is a 73 year old male who presents with constipation and abdominal pain with no HIDA evidence of acute cholecystitis Plan: -Diet as tolerated -PRN pain and nausea control -Care per primary -No acute surgical intervention; okay to DC home from general surgery standpoint Johan Brar MD General Surgery
--- NOTE | 2023-10-15 13:37 | P.DS ---
Providers Date of admission: 10/12/23 14:32 Expected date of discharge: 10/15/23 Attending physician: Jonas Voss MD Consults: 10/12/23 13:56 Consult Physician Urgent Consulting Provider: Fanny Tee Consult Reason/Comments: New nodule L lung hx CA Do you want consulting provider notified?: Yes 10/12/23 18:25 Consult Physician Routine Consulting Provider: Jaqueline Leija Consult Reason/Comments: stage IV CKD and admitted for acute exacerbation of HFpEF Do you want consulting provider notified?: Yes 10/13/23 08:36 Consult Physician Routine Consulting Provider: Pippa Miles Consult Reason/Comments: GB wall thickened Do you want consulting provider notified?: Already Contacted Primary care physician: [facility] Hospital Course: Discharge Diagnosis: Acute exacerbation of systolic congestive heart failure with ejection fraction 30% (newly discovered systolic), moderate pulmonary hypertension Ischemic cardiomyopathy Acute hypoxic respiratory failure Acute kidney injury on chronic kidney disease stage IV Constipation Transamintis due to CHF exacerbation HTN HLD COPD without exacerbation with continued nicotine dependency Hospital Course: Patient is a 73-year-old male with COPD and ongoing nicotine use, history of ischemic cardiomyopathy, hypertension, hyperlipidemia, stage IV chronic kidney disease, BPH, previous bladder cancer status post chemotherapy and radiation, and colon cancer status post resection and right hemicolectomy who presented to emergency department with complaints of abdominal pain/distention. In the emergency department he underwent an extensive evaluation. Which was remarkable for tachycardia of 108, Hgb10.5, BUN 24, creatinine 2.08 (baseline creatinine around 2.4), and proBNP of 67,700. CT abdomen and pelvis showing mild to moderate proximal colonic fecal prominence constipation and mild diffuse edema throughout the abdomen and pelvis with bilateral pleural effusions. Chest x-ray consistent with CHF exacerbation superimposed on background of COPD and an 8 mm nodule of left upper lobe. He was admitted for acute exacerbation of CHF. Cardio logy, pulmonology, nephrology, and g. Volume status was optimized with IV diuresis. He did have a bowel movement. His creatinine stabilized after increasing due to diuresis. He was determined stable for discharge home. There was some concern for cholitcystitis during his hospital stay and general surgery were consulted, this was ruled out and antibiotics were discontinued. Imaging: HIDA Scan: Normal hepatobiliary scan was slightly depressed ejection fraction of 29% Echocardiogram: Ejection fraction 30%, moderate pulmonary hypertension Gallbladder ultrasound: Hepatic cyst, hepatomegaly, small right pleural effusion, some mild gallbladder wall thickening CT abdomen and pelvis: Suboptimal study without CT evidence of bowel obstruction, mild to moderate proximal colonic fecal prominence or constipation, mild diffuse edema throughout the abdomen and pelvis with small amount of ascites and bilateral pleural effusion Follow-up: Dr. Cardoso in 1 week, Dr. Do in 1 week, he'll be in 1-2 days. He already has an appointment with Dr. Tavarez for colonoscopy next month. He'll have a repeat CBC and basic metabolic profile in the next 3 days with results to [facility] and Dr. Do. Medications include Lasix 40 mg twice daily, Coreg 12.5 mg twice daily, Cozaar reduced to 25 mg daily. He will also take MiraLAX 17 g daily as needed for no bowel movement within the last 48 hours. Patient seen and examined at bedside. He is doing well, no more shortness of breath or abdominal pain. Vital signs reviewed and stable. General: nontoxic, no distress, appears at stated age Cardiovascular: S1S2 reg, no murmur, positive posterior tibial pulse bilateral, Lungs: CTA bilateral, no rhonchi, no rales , no accessory muscle use Abdominal: soft, nontender to palpation, no guarding, no appreciable organomegaly Ext: no gross muscle atrophy, no edema b/l lower extremities, no contractures Neuro: CN II-XI grossly intact, no focal neuro deficits Psych: Alert, oriented, appropriate affect A total of 33 minutes of time were spent preparing this complex discharge summary. Patient was discharged on 10/15/23. This dictation was prepared using [employer] voice recognition software. Though every attempt is made to correct errors during dictation some may still exist. Patient Condition at Discharge: Good Plan - Discharge Summary New Discharge Prescriptions: New Furosemide [Lasix] 40 mg PO BID #60 tablet carvediloL [Coreg] 12.5 mg PO AC-BID #60 tablet polyethylene glycoL 3350 [Miralax] 17 gm PO DAILY #0 packet Losartan [Cozaar] 25 mg PO DAILY #30 tab Continue Tamsulosin [Flomax] 0.4 mg PO DAILY Atorvastatin Calcium [Lipitor] 20 mg PO HS Mirtazapine [Remeron] 30 mg PO HS Isosorbide Mononitrate ER [Imdur] 30 mg PO DAILY 30 Days #30 tab carvediloL [Coreg] 25 mg PO BID Cholecalciferol [Vitamin D3 (10 Mcg = 400 Iu)] 20 mcg PO DAILY Melatonin 10 mg PO HS Aspirin 81 mg PO DAILY #30 tab PARoxetine HCL [Paxil] 20 mg PO DAILY Nitroglycerin Sl Tabs [Nitrostat] 0.4 mg SUBLINGUAL Q5M PRN PRN Reason: Chest Pain Discontinued Losartan Potassium 50 mg PO DAILY Discharge Medication List Tamsulosin [Flomax] 0.4 mg PO DAILY 06/04/16 [History] Atorvastatin Calcium [Lipitor] 20 mg PO HS 06/24/21 [History] Melatonin 10 mg PO HS 05/31/22 [History] Mirtazapine [Remeron] 30 mg PO HS 05/31/22 [History] Aspirin 81 mg PO DAILY #30 tab 06/12/22 [Rx] Isosorbide Mononitrate ER [Imdur] 30 mg PO DAILY 30 Days #30 tab 08/03/22 [Rx] Cholecalciferol [Vitamin D3 (10 Mcg = 400 Iu)] 20 mcg PO DAILY 10/12/23 [History] Nitroglycerin Sl Tabs [Nitrostat] 0.4 mg SUBLINGUAL Q5M PRN 10/12/23 [History] PARoxetine HCL [Paxil] 20 mg PO DAILY 10/12/23 [History] carvediloL [Coreg] 25 mg PO BID 10/12/23 [History] Furosemide [Lasix] 40 mg PO BID #60 tablet 10/14/23 [Rx] Losartan [Cozaar] 25 mg PO DAILY #30 tab 10/15/23 [Rx] carvediloL [Coreg] 12.5 mg PO AC-BID #60 tablet 10/15/23 [Rx] polyethylene glycoL 3350 [Miralax] 17 gm PO DAILY #0 packet 10/15/23 [Rx] Follow up Appointment(s)/Referral(s): Rashad Cardoso MD [STAFF PHYSICIAN] - 1 Week Britni Rodriguez MD [STAFF PHYSICIAN] - As Needed (as previously scheduled ) Brenden Do DO [STAFF PHYSICIAN] - 1 Week [facility],Clinic [Primary Care Provider] - 1-2 days Ambulatory/Diagnostic Orders: Basic Metabolic Panel [LAB.AMB] Time Frame: 3 Days, Location: None Selected Complete Blood Count w/diff [LAB.AMB] Time Frame: 3 Days, Location: None Selected Activity/Diet/Wound Care/Special Instructions: Activity: As tolerated Diet: Heart Healthy, 2 gram sodium diet Special Instructions: Take your weights daily. Call cardiology if your gain more then 3 pounds in 1 day or more than 5 pounds in 3 days. Repeat Blood work in 3 days Miralax 17 grams daily as needed for no bowel movement in 24 hours. Discharge Disposition: HOME SELF-CARE
--- NOTE | 2023-10-15 16:01 | P.PN ---
Subjective Progress Note Date: 10/15/23 73-year-old male patient, presented to the hospital because of constipation and difficulty in having bowel movement for the past 3 weeks. He was feeling bloated and he has having some nausea and emesis. He did complain of some epigastric abdominal pain as well. He also reported some interval worsening shortness of breath mainly with exertion. No cough. No sputum production. No chest pain. No fever. No chills. No bright red blood per rectum. In the emergency, the patient was afebrile, hypertensive, and the blood work showed a WBC count of 8.2, hemoglobin 10.5 and a platelet count of 338, BUN is 24 with a creatinine of 2.08 and a sodium level is at 140 and a potassium level is at 4.1. Normal coagulation profile. UA showed +2 protein, the sodium was at 140, po tassium was at 4.1, BUN is at 24 with a creatinine of 2.08, glucose was 113, calcium is 8.6, AST is 62, ALT is 108 and alkaline phosphatase is 290, troponin was 0.03, total protein is at 6 with a albumin of 3.4. ProBNP level was 67,007 100. Troponins are 0.032 respectively. The patient is known to have nonocclusive coronary artery disease, COPD, nonischemic cardiomyopathy, previous history of colon cancer that has been resected back in 2016, chronic stage IV kidney disease, history of bladder cancer post chemoradiation therapy, hypertension hyperlipidemia. He has had previous cardiac arrest back in 2019. He has also had previous ventilator dependent respiratory failure due to COPD/CHF exacerbation back in 2021. The computed tomography scan of the abdomen and pelvis that was done in emergency showed no evidence of any bowel obstruction. There was mild to moderate proximal colonic fecal prominence/constipation. Mild diffuse edema throughout the abdominal and pelvic wall and small amount of pelvic/peritoneal ascites and small left pleural effusions. There is consistent with CHF. Ultrasound the gallbladder showed hepatic cyst, hepatomegaly, normal common bile duct the chest x-ray showed some increased interstitial markings and a small right-sided pleural effusion. No airspace disease. 8 mm nodule in the left upper lobe. Patient is currently on Lasix 40 mg IV every 12 hours. Rest of the outpatient medications have been resumed. Previous echocardiogram from 2021 showed a preserved LV function with an EF of around 50-55%. Normal RV. No pulmonary hypertension. On today's evaluation of 10/13/2023, the patient is being seen for a follow-up. The patient is feeling well. He was able to pass a bowel movement. He was given laxatives. He is also on IV Lasix 40 g every 12 hours. Less short of breath. He underwent a surgical evaluation. A HIDA scan was also ordered and the patient was found to have a normal hepatobiliary scan. There was a normal ejection fraction compatible with impaired gallbladder emptying and some dysfunction. Note that his shortness of breath. It was noted 7.7, he was 9.3, BUN is at 26 with a creatinine of 2.2. Potassium levels at 4.3. A repeat echo guarding and was also done and the patient is a drop in the left ventricle e jection fraction down to 30% and he was found to have mild to moderate mitral regurgitation and he was found to have moderate degree of pulmonary hypertension. Evaluation of 10/14/2023, the patient is doing better symptoms of his breathing. He still having some issues with constipation. On anoscopy is scheduled to be done on outpatient basis. The patient was given lactulose. At the same time, his CHF is being optimized. The patient is currently on IV Lasix. The fluid balance has not been accurately reported. Nevertheless, his BUN is 27 with a creatinine of 2.8 and a sodium level is at 144. Is currently on room air oxygen. His diuretics in the form of IV Lasix at a dose of 40 mg every 12 hours. No other complaints otherwise for now. On today's evaluation of 10/15/2023, the patient has no specific complaints. He is doing well. No chest pain. No shortness of breath. He still on diuretics. Sodium level is at 144, creatinine is stable at 2.8 with a BUN is at 23. His echoes at 9.1 with a hemoglobin of 10.9.. The patient is on room air oxygen. Objective - Vital Signs Vital signs: Vital Signs Temp 98.3 F 10/15/23 07:00 Pulse 66 10/15/23 07:00 Resp 16 10/15/23 07:00 BP 156/65 10/15/23 07:00 Pulse Ox 95 10/15/23 07:00 FiO2 Intake & Output 10/14/23 10/15/23 10/15/23 18:59 06:59 18:59 Intake Total 458 Balance 458 Weight 49.3 kg Intake: Oral 458 - Exam No acute distress, patient is currently 3 L of oxygen by nasal cannula with a pulse ox ranging between 95-96% Head exam was generally normal. There was no scleral icterus or corneal arcus. Mucous membranes were moist. HEENT examination is grossly unremarkable. Neck supple. Full range of motion. No adenopathy thyromegaly or neck vein distention. Cardiovascular examination reveals regular rhythm rate. S1-S2 normal. No S3 or S4. No discernible murmur noted. Lungs reveal scattered bilateral rhonchi and wheezes. There is also crackles at the bases. Breath sounds equal bilaterally. Abdominal exam revealed normal bowel sounds. The abdomen was soft, non-tender, and without masses, organomegaly, or appreciable enlargement of the abdominal aorta. Extremities are intact. No cyanosis clubbing or edema. Skin is without rash or lesion. Neurologically, the patient is sedated - Labs CBC & Chem 7: 10/15/23 05:43 10/15/23 05:43 Labs: Abnormal Lab Results - Last 24 Hours (Table) 10/15/23 10/15/23 Range/Units 05:43 05:43 RBC 3.77 L (4.40-5.60) X 10*6/uL Hgb 10.9 L (13.0-17.0) g/dL Hct 35.1 L (39.6-50.0) % MCHC 31.1 L (32.0-37.0) g/dL RDW 17.1 H (11.5-14.5) % Anion Gap 12.90 H (4.00-12.00) mmol/L BUN 28.5 H (9.0-27.0) mg/dL Creatinine 2.8 H (0.6-1.5) mg/dL Est GFR (CKD-EPI) 23 L (>=60) BUN/Creatinine Ratio 10.18 L (12.00-20.00) Ratio Total Bilirubin 0.2 L (0.3-1.2) mg/dL ALT 62 H (10-49) U/L Alkaline Phosphatase 195 H (41-126) U/L Total Protein 5.9 L (6.2-8.2) g/dL Albumin 3.5 L (3.8-4.9) g/dL Albumin/Globulin Ratio 1.46 L (1.60-3.17) Ratio Assessment and Plan Plan: Constipation, no other acute pathology on a CAT scan of the abdomen and pelvis. Previous EGD that was done in 2016 showed acid reflux and hiatal hernia without obstruction and a colonoscopy showed sigmoid diverticulosis, normal ileocolonic anastomosis and internal hemorrhoids grade 2. The patient was able to pass a bowel movement with the help of laxatives. Gallbladder dysfunction without evidence of any cholecystitis. Dyspnea, chronic, probably attributed to CHF although the shortness of breath is multifactorial as the patient has also COPD. echo cardiac exam showed impairment of LV function with an ejection fraction of 3035% with moderate degree of pulmonary hypertension New-onset CHF with systolic heart failure and ejection fraction of 3035% Acute hypoxic respiratory failure with a mild component of CHF with elevated proBNP level and increased vessel markings of the chest x-ray, currently on IV Lasix and the patient is also on 3 L of oxygen by nasal cannula, with systolic heart failure, improved and the patient is currently on room air oxygen and the patient is responding nicely to diuretics. Hypertension with elevated blood pressure, currently under better control Nonocclusive coronary artery disease, limited troponin leak, minimal, EKG showing frequent PVCs and LVH COPD Diastolic heart failure with preserved LV function Previous respiratory failure requiring intubation mechanical ventilation secondary to COPD/CHF back in 2021. Previous history of smoking History of colon cancer, with previous resection, 2016 History of bladder cancer, status post chemoradiation. History of hypertension. History of hyperlipidemia. History of gastroesophageal reflux disease. History of cardiac arrest, 2019. History of stage IV chronic kidney disease. History of BPH. History of anemia. History of restless leg syndrome. Left upper lobe pulmonary nodule, nonspecific findings, will need a CAT scan of the chest later stage once more stable. The patient's previous CAT scan of the chest from 08/31/2022 showed a left anterior subpleural lesion measuring around 13 mm in size. Plan Clinically improved We'll discharge patient home on diuretics Optimize CHF Monitor body weight Monitor electrolytes Continue Coreg 25 mg by mouth twice a day, Cozaar 100 mg by mouth daily and Imdur 30 mg by mouth daily. We'll discuss with cardiology regarding further adjustments. We'll follow, will obtain a CAT scan of the chest, a noncontrast CAT scan of the later stage, regarding the pulmonary nodule, this can be done on outpatient basis Oxygenation is stable and the patient has been transitioned to room air oxygen Discharge home today
== END 2023-10-15 13:25 | disposition home or self-care (01) ==
LOC: EC 10:33 → 6NMEDSUR 14:32
PROVIDERS: ADMIT Student in an Organized Health Care Education/Training Program; ATTEND Student in an Organized Health Care Education/Training Program
DX: R93.2 Abnormal findings on diagnostic imaging of liver and biliary tract (principal); I13.0 Hypertensive heart and chronic kidney disease with heart failure and stage 1 through stage 4 chronic kidney disease, or unspecified chronic kidney disease; I50.43 Acute on chronic combined systolic (congestive) and diastolic (congestive) heart failure; N18.4 Chronic kidney disease, stage 4 (severe); I25.5 Ischemic cardiomyopathy; R79.89 Other specified abnormal findings of blood chemistry; K59.00 Constipation, unspecified; R10.11 Right upper quadrant pain; R10.13 Epigastric pain; J44.9 Chronic obstructive pulmonary disease, unspecified; K21.9 Gastro-esophageal reflux disease without esophagitis; E78.5 Hyperlipidemia, unspecified; G25.81 Restless legs syndrome; E11.22 Type 2 diabetes mellitus with diabetic chronic kidney disease; D63.1 Anemia in chronic kidney disease; F41.9 Anxiety disorder, unspecified; N40.0 Benign prostatic hyperplasia without lower urinary tract symptoms; I25.10 Atherosclerotic heart disease of native coronary artery without angina pectoris; R91.8 Other nonspecific abnormal finding of lung field; J96.01 Acute respiratory failure with hypoxia; I27.20 Pulmonary hypertension, unspecified; N17.9 Acute kidney failure, unspecified; F17.210 Nicotine dependence, cigarettes, uncomplicated; Z85.038 Personal history of other malignant neoplasm of large intestine; Z85.51 Personal history of malignant neoplasm of bladder; Z86.74 Personal history of sudden cardiac arrest; Z90.49 Acquired absence of other specified parts of digestive tract; Z92.21 Personal history of antineoplastic chemotherapy; Z92.3 Personal history of irradiation; Z79.82 Long term (current) use of aspirin; Z79.899 Other long term (current) drug therapy
CPT/HCPCS: 96376 ×2; 96365; 96366 ×3; 96372 ×3; 96361; 96375; 99285; 36415; 94760; 93005; 93306; 83880; 80053 ×4; 82150; 83605; 83690; 83735 ×2; 84484; 85025; 85027 ×3; 85610; 85730; 81001; 71046; 76705; 74176; 78227; G0378 ×4; A9537; S4990 ×3; J2543 ×3; J1644 ×3; J1940 ×3; J2405; J2805; J1885

== ENCOUNTER → 2023-10-18 | Outpatient (CLI) | payer OTHER ==
[2023-10-19 02:14] LABS: Basophils # (A) 0.06 X 10*3/uL (0.00-0.10); Basophils % (A) 0.6 %; Eosinophils # (A) 0.42 X 10*3/uL (0.04-0.35); Eosinophils % (A) 3.9 %; HCT 36.8 % (39.6-50.0); HGB 11.2 g/dL (13.0-17.0); Lymphocytes # (A) 0.84 X 10*3/uL (0.90-5.00); Lymphocytes % (A) 7.9 %; MCH 28.8 pg (27.0-32.0); MCHC 30.4 g/dL (32.0-37.0); MCV 94.6 FL (80.0-97.0); Mean Platelet Volume 9.6 FL (9.5-12.2); Monocytes # (A) 0.78 X 10*3/uL (0.20-1.00); Monocytes % (A) 7.3 %; NRBC Per 100 WBC 0 X 10*3/uL (0.00-0.01); Neutrophils # (A) 8.55 X 10*3/uL (1.80-7.70); Neutrophils % (A) 79.9 %; Platelet Count 409 X 10*3/uL (140-440); RBC 3.89 X 10*6/uL (4.40-5.60); RDW 16.7 % (11.5-14.5); WBC 10.69 X 10*3/uL (4.50-10.00)
== END | disposition home or self-care (01) ==
LOC: LABWHC1 15:02
PROVIDERS: ATTEND Internal Medicine
DX: N17.9 Acute kidney failure, unspecified (principal)
CPT/HCPCS: 36415; 85025

== ENCOUNTER 2024-06-15 03:46 | Emergency (ER) | payer OTHER ==
[2024-06-15] MEDS ORDERED: ASPIRIN 81 MG ONE (04:24)
[2024-06-15] MEDS ORDERED: FUROSEMIDE 10 MG/ML 4 ML VIAL ONE (04:24)
[2024-06-15] MEDS ORDERED: MORPHINE SULFATE 4 MG/ML SYRINGE ONE (04:24)
[2024-06-15] MEDS ORDERED: NITROGLYCERIN OINT 1 INCH/GM PACKET TOPICAL ONE (04:24)
--- NOTE | 2024-07-13 11:20 | XR ---
EXAMINATION TYPE: XR chest 2V DATE OF EXAM: 06/15/2024 COMPARISON: Chest radiographs from 10/12/2023 TECHNIQUE: XR chest 2V Frontal and lateral views of the chest. CLINICAL INDICATION:Male, 74 years old with history of SOB; FINDINGS: Lungs/Pleura: Hyperinflation with flattening of the hemidiaphragms. No focal consolidation or pneumot horax. Pulmonary vascularity: Pulmonary vascular congestion. Heart/mediastinum: Cardiomediastinal silhouette is prominent in size. Musculoskeletal: No acute osseous pathology. Remote left third rib fracture. IMPRESSION: COPD changes with pulmonary vascular congestion and prominent heart suggesting CHF exacerbation.
== END 2024-06-15 08:15 | disposition left against medical advice (07) ==
LOC: EC 03:46
CPT/HCPCS: 71046; 96374; 96375; 99284

== ENCOUNTER 2024-07-17 18:05 | Emergency (ER) | payer OTHER ==
[2024-07-17 18:11] VITALS: BP 179/98; PULSE 94; RESP 20; TEMP 98.4
[2024-07-17 18:47] LABS: Basophils % (A) 0 %; Eosinophils # (A) 0.2 k/uL (0-0.7); Eosinophils % (A) 3 %; HGB 9.1 gm/dL (13.0-17.5); Hypochromasia Moderate; Lymphocytes # (A) 0.8 k/uL (1.0-4.8); Lymphocytes % (A) 13 %; MCH 30.5 pg (25.0-35.0); MCHC 31.2 g/dL (31.0-37.0); MCV 97.5 fL (80.0-100.0); Mean Platelet Volume 6.9; Monocytes # (A) 0.3 k/uL (0-1.0); Monocytes % (A) 5 %; Neutrophils # (A) 4.4 k/uL (1.3-7.7); Neutrophils % (A) 77 %; Platelet Count 441 k/uL (150-450); RBC 2.97 m/uL (4.30-5.90); RDW 15.4 % (11.5-15.5); WBC 5.7 k/uL (3.8-10.6)
[2024-07-17 18:55] LABS: INR 1.1 (<1.2); Partial Thromboplastin Time 23.2 sec (22.0-30.0); Prothrombin Time 11.5 sec (10.0-12.5)
[2024-07-17 19:03] LABS: ALT 230 U/L (4-49); AST 364 U/L (17-59); African American GFR (CKD) 31 (>60 ml/min/1.73 sqM); Albumin 3.8 g/dL (3.5-5.0); Alkaline Phosphatase 180 U/L (38-126); Anion Gap 10 mmol/L; Blood Urea Nitrogen 56 mg/dL (9-20); Calcium 8.6 mg/dL (8.4-10.2); Carbon Dioxide 24 mmol/L (22-30); Chloride 103 mmol/L (98-107); Glucose 98 mg/dL (74-99); Non-African American GFR(CKD) 26 (>60 ml/min/1.73 sqM); Potassium 4.4 mmol/L (3.5-5.1); Sodium 137 mmol/L (137-145); Total Bilirubin 0.9 mg/dL (0.2-1.3); Total Protein 6.5 g/dL (6.3-8.2)
--- NOTE | 2024-07-17 19:17 | XR ---
EXAMINATION TYPE: XR chest 2V DATE OF EXAM: 07/17/2024 COMPARISON: 06/15/2024 INDICATION: Difficulty breathing TECHNIQUE: Frontal and lateral views of the chest are obtained. FINDINGS: The heart size is normal. The pulmonary vasculature is normal. There is a 2.4 cm area of slight increased density just to the right of the right hilum. Underlying f iltrate should be considered. Findings are changing from comparison. Follow-up to clearing is recomme nded. IMPRESSION: 1. Subtle infiltrate suspected at the right perihilar region. Follow-up recommended
[2024-07-17 19:37] LABS: NT-Pro-B-Type Natriuretic Pept 80600 pg/mL
--- NOTE | 2024-07-17 19:53 | ED ---
General Adult HPI - General Chief complaint: Shortness of Breath Stated complaint: SOb Time Seen by Provider: 07/17/24 19:40 Source: patient, RN notes reviewed Mode of arrival: ambulatory Limitations: no limitations - History of Present Illness Initial comments: Patient is a 74-year-old male present to the emergency department difficulty breathing. Symptoms have progressed over the past several days. Patient does have leg edema. Patient has history of both COPD and CHF. Patient does have nonproductive cough. No fever. - Related Data Home Medications Medication Instructions Recorded Confirmed Tamsulosin [Flomax] 0.4 mg PO DAILY 06/04/16 01/05/24 Melatonin 10 mg PO HS 05/31/22 01/05/24 Mirtazapine [Remeron] 30 mg PO HS 05/31/22 01/05/24 Cholecalciferol [Vitamin D3 (10 20 mcg PO DAILY 10/12/23 01/05/24 Mcg = 400 Iu)] Nitroglycerin Sl Tabs [Nitrostat] 0.4 mg SUBLINGUAL Q5M PRN 10/12/23 01/05/24 PARoxetine HCL [Paxil] 20 mg PO DAILY 10/12/23 01/05/24 carvediloL [Coreg] 12.5 mg PO BID 10/12/23 01/05/24 Atorvastatin [Lipitor] 20 mg PO HS 01/05/24 01/05/24 Losartan Potassium 50 mg PO DAILY 01/05/24 01/05/24 polyethylene glycoL 3350 [Miralax] 1 tab PO DAILY PRN 01/05/24 01/05/24 Previous Rx's Medication Instructions Recorded Aspirin 81 mg PO DAILY #30 tab 06/12/22 Isosorbide Mononitrate ER [Imdur] 30 mg PO DAILY 30 Days #30 tab 08/03/22 Furosemide [Lasix] 40 mg PO BID #60 tablet 10/14/23 Allergies Allergy/AdvReac Type Severity Reaction Status Date / Time lisinopril Allergy Angioedema., Verified 07/17/24 18:11 swollen testicle, rash Review of Systems ROS Statement: Those systems with pertinent positive or pertinent negative responses have been documented in the HPI. ROS Other: All systems not noted in ROS Statement are negative. Constitutional: Denies: fever Eyes: Denies: eye pain ENT: Denies: ear pain Respiratory: Reports: as per HPI, cough, dyspnea Cardiovascular: Denies: chest pain Endocrine: Reports: fatigue Gastrointestinal: Denies: abdominal pain Past Medical History Past Medical History: Cancer, Heart Failure, COPD, GERD/Reflux, Hyperlipidemia, Hypertension, Prostate Disorder, Renal Disease Additional Past Medical History / Comment(s): Pt recently admitted to [facility] on 06/11/22 with acute on chronic CHF, hyperkalemia. Other hx: Recent bladder cancer/completed oral chemo and radiation, past colon cancer with resection, nonischemic cardiomyopathy, 2020 cardiac arrent/Vtach, CKD stage IV, BPH, hemorrhoids, anemia, RLS, chronic low back pain History of Any Multi-Drug Resistant Organisms: None Reported Past Surgical History: Appendectomy, Bowel Resection, Heart Catheterization, Orthopedic Surgery Additional Past Surgical History / Comment(s): R hemicolectomy, colonoscopies, nasal surgery to repair ulcer, R knee arthroscopic surgeries (ACL repair and meniscus repair), L heel fusion d/t trauma, L arm bicep surgery. Past Anesthesia/Blood Transfusion Reactions: No Reported Reaction Additional Past Anesthesia/Blood Transfusion Reaction / Comment(s): no blood transfusion Past Psychological History: Anxiety Smoking Status: Current every day smoker Past Alcohol Use History: None Reported Past Drug Use History: None Reported - Past Family History Mother Family Medical History: Cancer Additional Family Medical History / Comment(s): BREAST Sister(s) Family Medical History: Deep Vein Thrombosis (DVT) Additional Family Medical History / Comment(s): 1 sister had leukemia, and another sister had non hodgkins. Father Family Medical History: COPD Additional Family Medical History / Comment(s): FROM CARDIAC ARREST General Exam Limitations: no limitations General appearance: alert, in no apparent distress Head exam: Present: normocephalic Eye exam: Present: normal appearance Respiratory exam: Present: rales Cardiovascular Exam: Present: regular rate, normal rhythm GI/Abdominal exam: Present: soft. Absent: tenderness Extremities exam: Present: pedal edema Neurological exam: Present: alert Psychiatric exam: Present: normal affect, normal mood Skin exam: Present: normal color Course Vital Signs 07/17/24 18:08 Temperature 98.4 F Pulse Rate 94 Respiratory 20 Rate Blood Pressure 179/98 O2 Sat by Pulse 99 Oximetry EKG Findings - EKG Results: EKG: interpreted by ALEXANDER (LVH with repolarization changes. EKG reviewed dated 10/12/2023 with similar findings.), sinus rhythm, normal axis Medical Decision Making - Medical Decision Making Was pt. sent in by a medical professional or institution ([facility] Barajas, [employer], urgent care, hospital, or fpc...) When possible be specific @ -No Did you speak to anyone other than the patient for history (EMS, parent, family, police, friend...)? What history was obtained from this source @ -No Did you review nursing and triage notes (agree or disagree)? Why? @ -I reviewed and agree with nursing and triage notes Were old charts reviewed (outside hosp., previous admission, EMS record, old EK G, old radiological studies, urgent care reports/EKG's, fpc records)? Report findings @ -Previous labs reviewed including renal function and troponin and BNP. Previous EKG also reviewed Differential Diagnosis (chest pain, altered mental status, abdominal pain women, abdominal pain men, vaginal bleeding, weakness, fever, dyspnea, syncope, headache, dizziness, GI bleed, back pain, seizure, CVA, palpatations, mental health, musculoskeletal)? @ -Differential Dyspnea: Coronary syndrome, arrhythmia, tamponade, asthma, COPD, pulmonary embolism, pneumonia, pneumothorax, pulmonary effusion, anaphylaxis, diabetic ketoacidosis, flailed chest, pulmonary contusion, diaphragmatic rupture, anemia, neuromuscular, this is not meant to be an all-inclusive list. EKG interpreted by me (3pts min.). @ -As above X-rays interpreted by me (1pt min.). @ -Chest x-ray shows subtle interstitial changes CT interpreted by me (1pt min.). @ -None done U/S interpreted by me (1pt. min.). @ -None done What testing was considered but not performed or refused? (CT, X-rays, U/S, labs)? Why? @ -None What meds were considered but not given or refused? Why? @ -None Did you discuss the management of the patient with other professionals (professionals i.e. [facility] Barajas, [employer], lab, RT, psych nurse, manager social media, salesperson men's hats, teacher, civil preparedness officer, rn case management)? Give summary @ -Case discussed with practitioner Emilie Patino who will admit covering hospital call Was smoking cessation discussed for >3mins.? @ -No Was critical care preformed (if so, how long)? @ -No Were there social determinants of health that impacted care today? How? (Homelessness, low income, unemployed, alcoholism, drug addiction, transportation, low edu. Level, literacy, decrease access to med. care, senior care, rehab)? @ -No Was there de-escalation of care discussed even if they declined (Discuss DNR or withdrawal of care, Hospice)? DNR status @ -No What co-morbidities impacted this encounter? (DM, HTN, Smoking, COPD, CAD, Canc er, CVA, ARF, Chemo, Hep., AIDS, mental health diagnosis, sleep apnea, morbid obesity)? @ -History of both CHF and COPD Was patient admitted / discharged? Hospital course, mention meds given and rout e, prescriptions, significant lab abnormalities, going to OR and other pertinent info. @ -Patient presents with dyspnea. Lab results more consistent with CHF as well as exam. Patient will be admitted, admission orders written. Undiagnosed new problem with uncertain prognosis? @ -No Drug Therapy requiring intensive monitoring for toxicity (Heparin, Nitro, Insulin, Cardizem)? @ -No Were any procedures done? @ -No Diagnosis/symptom? @ -HF Acute, or Chronic, or Acute on Chronic? @ -acute Uncomplicated (without systemic symptoms) or Complicated (systemic symptoms)? @ -Default Side effects of treatment? @ -No Exacerbation, Progression, or Severe Exacerbation? @ -No Poses a threat to life or bodily function? How? (Chest pain, USA, NC, pneumonia, PE, COPD, DKA, ARF, appy, cholecystitis, CVA, Diverticulitis, Homicidal, Suicidal, threat to staff... and all critical care pts) @ -Threat to cardiac function - Lab Data Result diagrams: 07/17/24 18:19 07/17/24 18:19 Lab Results 07/17/24 07/17/24 07/17/24 Range/Units 18:19 18:19 18:19 WBC 5.7 (3.8-10.6) k/uL RBC 2.97 L (4.30-5.90) m/uL Hgb 9.1 L (13.0-17.5) gm/dL Hct 29.0 L (39.0-53.0) % MCV 97.5 (80.0-100.0) fL MCH 30.5 (25.0-35.0) pg MCHC 31.2 (31.0-37.0) g/dL RDW 15.4 (11.5-15.5) % Plt Count 441 (150-450) k/uL MPV 6.9 Neutrophils % 77 % Lymphocytes % 13 % Monocytes % 5 % Eosinophils % 3 % Basophils % 0 % Neutrophils # 4.4 (1.3-7.7) k/uL Lymphocytes # 0.8 L (1.0-4.8) k/uL Monocytes # 0.3 (0-1.0) k/uL Eosinophils # 0.2 (0-0.7) k/uL Basophils # 0.0 (0-0.2) k/uL Hypochromasia Moderate PT 11.5 (10.0-12.5) sec INR 1.1 (<1.2) APTT 23.2 (22.0-30.0) sec Sodium 137 (137-145) mmol/L Potassium 4.4 (3.5-5.1) mmol/L Chloride 103 (98-107) mmol/L Carbon Dioxide 24 (22-30) mmol/L Anion Gap 10 mmol/L BUN 56 H (9-20) mg/dL Creatinine 2.37 H (0.66-1.25) mg/dL Est GFR (CKD-EPI)AfAm 31 (>60 ml/min/1.73 sqM) Est GFR (CKD-EPI)NonAf 26 (>60 ml/min/1.73 sqM) Glucose 98 (74-99) mg/dL Calcium 8.6 (8.4-10.2) mg/dL Total Bilirubin 0.9 (0.2-1.3) mg/dL AST 364 H (17-59) U/L ALT 230 H (4-49) U/L Alkaline Phosphatase 180 H (38-126) U/L Troponin I (0.000-0.034) ng/mL NT-Pro-B Natriuret Pep 69785 pg/mL Total Protein 6.5 (6.3-8.2) g/dL Albumin 3.8 (3.5-5.0) g/dL 07/17/24 Range/Units 18:19 WBC (3.8-10.6) k/uL RBC (4.30-5.90) m/uL Hgb (13.0-17.5) gm/dL Hct (39.0-53.0) % MCV (80.0-100.0) fL MCH (25.0-35.0) pg MCHC (31.0-37.0) g/dL RDW (11.5-15.5) % Plt Count (150-450) k/uL MPV Neutrophils % % Lymphocytes % % Monocytes % % Eosinophils % % Basophils % % Neutrophils # (1.3-7.7) k/uL Lymphocytes # (1.0-4.8) k/uL Monocytes # (0-1.0) k/uL Eosinophils # (0-0.7) k/uL Basophils # (0-0.2) k/uL Hypochromasia PT (10.0-12.5) sec INR (<1.2) APTT (22.0-30.0) sec Sodium (137-145) mmol/L Potassium (3.5-5.1) mmol/L Chloride (98-107) mmol/L Carbon Dioxide (22-30) mmol/L Anion Gap mmol/L BUN (9-20) mg/dL Creatinine (0.66-1.25) mg/dL Est GFR (CKD-EPI)AfAm (>60 ml/min/1.73 sqM) Est GFR (CKD-EPI)NonAf (>60 ml/min/1.73 sqM) Glucose (74-99) mg/dL Calcium (8.4-10.2) mg/dL Total Bilirubin (0.2-1.3) mg/dL AST (17-59) U/L ALT (4-49) U/L Alkaline Phosphatase (38-126) U/L Troponin I 0.047 H* (0.000-0.034) ng/mL NT-Pro-B Natriuret Pep pg/mL Total Protein (6.3-8.2) g/dL Albumin (3.5-5.0) g/dL Disposition Clinical Impression: Congestive heart failure Disposition: ADMITTED IP TO THIS HOSP Is patient prescribed a controlled substance at d/c from ED?: No Referrals: Reebkah Parada, PAC [Primary Care Provider] - 1-2 days Time of Disposition: 19:52
[2024-07-17] MEDS ORDERED: IPRATROPIUM-ALBUTEROL 3 ML NEB INHALATION PRN (19:54)
[2024-07-17] MEDS: IPRATROPIUM-ALBUTEROL 3 ML NEB INHALATION SCH (20:38)
[2024-07-17] MEDS: ASPIRIN 325 MG TAB PO STA (20:52)
[2024-07-17] MEDS: FUROSEMIDE 10 MG/ML 4 ML VIAL IV SCH (20:53)
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
--- NOTE | 2024-07-18 04:34 | P.DS ---
Providers Date of admission: 07/17/24 19:54 Expected date of discharge: 07/18/24 Attending physician: Arsen Christy MD Consults: 07/17/24 19:53 Consult Physician Routine Consulting Provider: Rashad Cardoso Consult Reason/Comments: chf Do you want consulting provider notified?: Yes Primary care physician: [facility] Course: Informed by the ER staff that the patient had left AMA. The patient was not seen after the initial encounter. Please refer to the H&P for further details. Patient Condition at Discharge: Undetermined Plan - Discharge Summary New Discharge Prescriptions: No Action Tamsulosin [Flomax] 0.4 mg PO DAILY Mirtazapine [Remeron] 30 mg PO HS carvediloL [Coreg] 12.5 mg PO BID Cholecalciferol [Vitamin D3 (10 Mcg = 400 Iu)] 20 mcg PO DAILY Atorvastatin [Lipitor] 20 mg PO HS Furosemide [Lasix] 20 mg PO DAILY@1500 Furosemide [Lasix] 40 mg PO DAILY Albuterol Inhaler [Ventolin Hfa Inhaler] 2 puff INHALATION RT-QID PRN PRN Reason: Shortness Of Breath Melatonin 10 mg PO HS Aspirin 81 mg PO DAILY #30 tab Nitroglycerin Sl Tabs [Nitrostat] 0.4 mg SUBLINGUAL Q5M PRN PRN Reason: Chest Pain Fluticasone Propion/Salmeterol [Advair 250-50 Diskus] 1 puff INHALATION RT- BID Discharge Medication List Tamsulosin [Flomax] 0.4 mg PO DAILY 06/04/16 [History] Melatonin 10 mg PO HS 05/31/22 [History] Mirtazapine [Remeron] 30 mg PO HS 05/31/22 [History] Aspirin 81 mg PO DAILY #30 tab 06/12/22 [Rx] Cholecalciferol [Vitamin D3 (10 Mcg = 400 Iu)] 20 mcg PO DAILY 10/12/23 [History] Nitroglycerin Sl Tabs [Nitrostat] 0.4 mg SUBLINGUAL Q5M PRN 10/12/23 [History] carvediloL [Coreg] 12.5 mg PO BID 10/12/23 [History] Atorvastatin [Lipitor] 20 mg PO HS 01/05/24 [History] Albuterol Inhaler [Ventolin Hfa Inhaler] 2 puff INHALATION RT-QID PRN 07/17/24 [History] Fluticasone Propion/Salmeterol [Advair 250-50 Diskus] 1 puff INHALATION RT-BID 07/17/24 [History] Furosemide [Lasix] 20 mg PO DAILY@1500 07/17/24 [History] Furosemide [Lasix] 40 mg PO DAILY 07/17/24 [History] Follow up Appointment(s)/Referral(s): Rebekah Parada, PAC [REFERRING] - 1-2 days Discharge Disposition: LEFT AGAINST MEDICAL ADVICE
[2024-07-18] MEDS ORDERED: ENOXAPARIN 40 MG/0.4 ML SYRINGE SQ SCH (09:00)
[2024-07-18] MEDS ORDERED: ASPIRIN 81 MG PO SCH (09:00)
[2024-07-18] MEDS ORDERED: ASPIRIN 325 MG TAB PO SCH (09:00)
[2024-07-18] MEDS ORDERED: NITROGLYCERIN OINT 1 INCH/GM PACKET TOPICAL SCH (22:00)
== END 2024-07-18 00:22 | disposition left against medical advice (07) ==
LOC: EC 18:05 → UNDOADMOB 19:54 → 3SCARD 19:54 → UNDODISOB 07-18 00:22 → EC 07-18 00:22
DX: I50.9 Heart failure, unspecified (principal)
CPT/HCPCS: 36415; 71046; 80053; 83880; 84484; 85025; 85610; 85730; 93005; 96374; 99285

== ENCOUNTER 2024-07-30 20:04 | Emergency (ER) | payer OTHER ==
--- NOTE | 2024-07-30 20:34 | ED ---
General Adult HPI - General Source: patient <Sumit Dixon - Last Filed: 07/30/24 20:46> <Ashvin De Los Santos - Last Filed: 07/30/24 22:04> - General Chief complaint: Shortness of Breath Stated complaint: Heart Issue,SOB Time Seen by Provider: 07/30/24 20:27 - History of Present Illness Initial comments: Dictation was produced using [employer] dictation software. please excuse any grammatical, word or spelling errors. Chief Complaint: 74-year-old male with multiple comorbidities presents to the ER for dyspnea History of Present Illness: Patient 74-year-old male with multiple comorbidities. Patient has a history of heart failure along with COPD. States that she has been short of breath for the last couple days. Patient has any fever he does have a cough. Patient did notice some swelling in his legs. Patient takes Lasix at home decided to take 60 mg of p.o. Lasix. Patient denies any chest pain. Does feel like he has pleuritic back pain. The ROS documented in this emergency department record has been reviewed and confirmed by me. Those systems with pertinent positive or negative responses have been documented in the HPI. All other systems are other negative and/or noncontributory. (Sumit Dixon) - Related Data Home Medications Medication Instructions Recorded Confirmed Tamsulosin [Flomax] 0.4 mg PO DAILY 06/04/16 07/17/24 Melatonin 10 mg PO HS 05/31/22 07/17/24 Mirtazapine [Remeron] 30 mg PO HS 05/31/22 07/17/24 Cholecalciferol [Vitamin D3 (10 20 mcg PO DAILY 10/12/23 07/17/24 Mcg = 400 Iu)] Nitroglycerin Sl Tabs [Nitrostat] 0.4 mg SUBLINGUAL Q5M PRN 10/12/23 07/17/24 carvediloL [Coreg] 12.5 mg PO BID 10/12/23 07/17/24 Atorvastatin [Lipitor] 20 mg PO HS 01/05/24 07/17/24 Albuterol Inhaler [Ventolin Hfa 2 puff INHALATION RT-QID PRN 07/17/24 07/17/24 Inhaler] Fluticasone Propion/Salmeterol 1 puff INHALATION RT-BID 07/17/24 07/17/24 [Advair 250-50 Diskus] Furosemide [Lasix] 20 mg PO DAILY@1500 07/17/24 07/17/24 Furosemide [Lasix] 40 mg PO DAILY 07/17/24 07/17/24 Previous Rx's Medication Instructions Recorded Aspirin 81 mg PO DAILY #30 tab 06/12/22 Albuterol Inhaler [Ventolin Hfa 1 - 2 puff INHALATION Q4HR PRN #1 07/30/24 Inhaler] each HYDROcodone/APAP 5-325MG [Delphia 1 tab PO Q6HR PRN #12 tab 07/30/24 5-325] predniSONE 50 mg PO DAILY #5 tab 07/30/24 Allergies Allergy/AdvReac Type Severity Reaction Status Date / Time lisinopril Allergy Angioedema., Verified 07/17/24 20:43 swollen testicle, rash Review of Systems ROS Other: All systems not noted in ROS Statement are negative. <Sumit Dixon - Last Filed: 07/30/24 20:46> ROS Other: All systems not noted in ROS Statement are negative. <Ashvin De Los Santos - Last Filed: 07/30/24 22:04> ROS Statement: Those systems with pertinent positive or pertinent negative responses have been documented in the HPI. Past Medical History Past Medical History: Cancer, Heart Failure, COPD, GERD/Reflux, Hyperlipidemia, Hypertension, Prostate Disorder, Renal Disease Additional Past Medical History / Comment(s): Pt recently admitted to [facility] on 06/11/22 with acute on chronic CHF, hyperkalemia. Other hx: Recent bladder cancer/completed oral chemo and radiation, past colon cancer with resection, nonischemic cardiomyopathy, 2020 cardiac arrent/Vtach, CKD stage IV, BPH, hemorrhoids, anemia, RLS, chronic low back pain History of Any Multi-Drug Resistant Organisms: None Reported Past Surgical History: Appendectomy, Bowel Resection, Heart Catheterization, Orthopedic Surgery Additional Past Surgical History / Comment(s): R hemicolectomy, colonoscopies, nasal surgery to repair ulcer, R knee arthroscopic surgeries (ACL repair and meniscus repair), L heel fusion d/t trauma, L arm bicep surgery. Past Anesthesia/Blood Transfusion Reactions: No Reported Reaction Additional Past Anesthesia/Blood Transfusion Reaction / Comment(s): no blood transfusion Past Psychological History: Anxiety Smoking Status: Current every day smoker Past Alcohol Use History: None Reported Past Drug Use History: None Reported - Past Family History Mother Family Medical History: Cancer Additional Family Medical History / Comment(s): BREAST Sister(s) Family Medical History: Deep Vein Thrombosis (DVT) Additional Family Medical History / Comment(s): 1 sister had leukemia, and another sister had non hodgkins. Father Family Medical History: COPD Additional Family Medical History / Comment(s): FROM CARDIAC ARREST <Sumit Dixon - Last Filed: 07/30/24 20:46> General Exam <Sumit Dixon - Last Filed: 07/30/24 20:46> - General Exam Comments Initial Comments: PHYSICAL EXAM: General Impression: Alert and oriented x3, not in acute distress HEENT: Normocephalic atraumatic, extra-ocular movements intact, pupils equal and reactive to light bilaterally, mucous membranes moist. Cardiovascular: Heart regular rate and rhythm Chest: Dyspneic, diffuse wheezing Abdomen: abdomen soft, non-tender, non-distended, no organomegaly Musculoskeletal: Pulses present and equal in all extremities, 1+ pitting edema Motor: no focal deficits noted Neurological: CN II-XII grossly intact, no focal motor or sensory deficits noted Skin: Intact with no visualized rashes Psych: Normal affect and mood (Sumit Dixon) Course Vital Signs 07/30/24 07/30/24 07/30/24 20:13 21:14 21:28 Temperature 97.7 F Pulse Rate 69 80 85 Respiratory 16 Rate Blood Pressure 150/77 O2 Sat by Pulse 99 Oximetry EKG Findings - EKG Comments: EKG Findings:: My EKG interpretation: Ventricular rate 80, sinus rhythm, KS interval 160, QRS 109, QTc 443. No KS prolongation, no QTC prolongation, no ST or T-wave changes noted. EKG compared to July 17, 2024 showing no changes. Overall, this EKG is unremarkable <Sumit Dixon - Last Filed: 07/30/24 20:46> Medical Decision Making - Lab Data Result diagrams: 07/30/24 20:27 <Sumit Dixon - Last Filed: 07/30/24 20:46> - Lab Data Result diagrams: 07/30/24 20:27 07/30/24 20:27 <Ashvin De Los Santos N - Last Filed: 07/30/24 22:04> - Medical Decision Making Was pt. sent in by a medical professional or institution (, PA, PIPE PROCESSOR, urgent care, hospital, or usp...) When possible be specific @ -No Did you speak to anyone other than the patient for history (EMS, parent, family, police, friend...)? What history was obtained from this source @ -No Did you review nursing and triage notes (agree or disagree)? Why? @ -I reviewed and agree with nursing and triage notes Were old charts reviewed (outside hosp., previous admission, EMS record, old EKG, old radiological studies, urgent care reports/EKG's, usp records)? Report findings @ -Echocardiogram reviewed from June 04, 2022 showed no heart failure Differential Diagnosis (chest pain, altered mental status, abdominal pain women, abdominal pain men, vaginal bleeding, musculoskeletal, weakness, fever, dyspnea, syncope, headache, dizziness, GI bleed, back pain, seizure, CVA, palpatations, mental health)? @ -Differential Dyspnea: Coronary syndrome, arrhythmia, tamponade, asthma, COPD, pulmonary embolism, pneumonia, pneumothorax, pulmonary effusion, anaphylaxis, diabetic ketoacidosis, flailed chest, pulmonary contusion, diaphragmatic rupture, anemia, neuromuscular, this is not meant to be an all-inclusive list. EKG interpreted by me (3pts min.). @ -See above X-rays interpreted by me (1pt min.). @ -Pending CT interpreted by me (1pt min.). @ -None done U/S interpreted by me (1pt. min.). @ -None done What testing was considered but not performed or refused? (CT, X-rays, U/S, labs)? Why? @ -None What meds were considered but not given or refused? Why? @ -None Was smoking cessation discussed for >3mins.? @ -No Were there social determinants of health that impacted care today? How? (Homelessness, low income, unemployed, alcoholism, drug addiction, transportation, low edu. Level, literacy, decrease access to med. care, penitentiary, rehab)? @ -No Was there de-escalation of care discussed even if they declined (Discuss DNR or withdrawal of care, Hospice)? DNR status @ -No What co-morbidities impacted this encounter? (DM, HTN, Smoking, COPD, CAD, Cancer, CVA, ARF, Chemo, Hep., AIDS, mental health diagnosis, sleep apnea, morbid obesity)? @ -Reported CHF, COPD Was patient admitted / discharged? Hospital course, mention meds given and route, prescriptions, significant lab abnormalities, going to OR and other pertinent info. @ -75-year-old male presents to the emergency department for acute dyspnea. Patient dyspneic at the bedside. Vital signs stable. Patient care signed out to Dr. De Los Santos at 9:00 PM for follow-up of labs and imaging and reassessment of the patient (Sumit Dixon) Patient care signed out at shift change awaiting laboratory testing, chest x-ray and reevaluation. Laboratory testing does reveal normal CBC, CMP with chronic abnormalities including chronic kidney disease, chronic mild troponin elevation, elevated BNP which is significantly improved from prior. Patient's chest x-ray is clear. There is no pneumothorax, no signs of CHF currently. I did reevaluat e the patient and he states that he prefers discharge and will trial medications at home for his breathing. Patient states he has an appointment with his primary care provider and states he will sleep better at home. (Ashvin De Los Santos) - Lab Data Lab Results 07/30/24 07/30/24 07/30/24 Range/Units 20:27 20:27 20:27 WBC 7.0 (3.8-10.6) k/uL RBC 3.41 L (4.30-5.90) m/uL Hgb 10.2 L (13.0-17.5) gm/dL Hct 33.2 L (39.0-53.0) % MCV 97.5 (80.0-100.0) fL MCH 29.9 (25.0-35.0) pg MCHC 30.7 L (31.0-37.0) g/dL RDW 15.6 H (11.5-15.5) % Plt Count 443 (150-450) k/uL MPV 6.9 Neutrophils % 77 % Lymphocytes % 11 % Monocytes % 5 % Eosinophils % 5 % Basophils % 1 % Neutrophils # 5.3 (1.3-7.7) k/uL Lymphocytes # 0.8 L (1.0-4.8) k/uL Monocytes # 0.4 (0-1.0) k/uL Eosinophils # 0.3 (0-0.7) k/uL Basophils # 0.1 (0-0.2) k/uL Hypochromasia Marked PT 11.3 (10.0-12.5) sec INR 1.0 (<1.2) APTT 24.9 (22.0-30.0) sec Sodium 140 (137-145) mmol/L Potassium 4.7 (3.5-5.1) mmol/L Chloride 106 (98-107) mmol/L Carbon Dioxide 26 (22-30) mmol/L Anion Gap 8 mmol/L BUN 52 H (9-20) mg/dL Creatinine 2.45 H (0.66-1.25) mg/dL Est GFR (CKD-EPI)AfAm 29 (>60 ml/min/1.73 sqM) Est GFR (CKD-EPI)NonAf 25 (>60 ml/min/1.73 sqM) Glucose 117 H (74-99) mg/dL Calcium 8.9 (8.4-10.2) mg/dL Magnesium 2.5 H (1.6-2.3) mg/dL Total Bilirubin 0.4 (0.2-1.3) mg/dL AST 36 (17-59) U/L ALT 48 (4-49) U/L Alkaline Phosphatase 99 (38-126) U/L Troponin I (0.000-0.034) ng/mL NT-Pro-B Natriuret Pep 76150 pg/mL Total Protein 6.7 (6.3-8.2) g/dL Albumin 3.9 (3.5-5.0) g/dL 07/30/24 Range/Units 20:27 WBC (3.8-10.6) k/uL RBC (4.30-5.90) m/uL Hgb (13.0-17.5) gm/dL Hct (39.0-53.0) % MCV (80.0-100.0) fL MCH (25.0-35.0) pg MCHC (31.0-37.0) g/dL RDW (11.5-15.5) % Plt Count (150-450) k/uL MPV Neutrophils % % Lymphocytes % % Monocytes % % Eosinophils % % Basophils % % Neutrophils # (1.3-7.7) k/uL Lymphocytes # (1.0-4.8) k/uL Monocytes # (0-1.0) k/uL Eosinophils # (0-0.7) k/uL Basophils # (0-0.2) k/uL Hypochromasia PT (10.0-12.5) sec INR (<1.2) APTT (22.0-30.0) sec Sodium (137-145) mmol/L Potassium (3.5-5.1) mmol/L Chloride (98-107) mmol/L Carbon Dioxide (22-30) mmol/L Anion Gap mmol/L BUN (9-20) mg/dL Creatinine (0.66-1.25) mg/dL Est GFR (CKD-EPI)AfAm (>60 ml/min/1.73 sqM) Est GFR (CKD-EPI)NonAf (>60 ml/min/1.73 sqM) Glucose (74-99) mg/dL Calcium (8.4-10.2) mg/dL Magnesium (1.6-2.3) mg/dL Total Bilirubin (0.2-1.3) mg/dL AST (17-59) U/L ALT (4-49) U/L Alkaline Phosphatase (38-126) U/L Troponin I 0.036 H* (0.000-0.034) ng/mL NT-Pro-B Natriuret Pep pg/mL Total Protein (6.3-8.2) g/dL Albumin (3.5-5.0) g/dL Disposition <Sumit Dixon - Last Filed: 07/30/24 20:46> Is patient prescribed a controlled substance at d/c from ED?: No Time of Disposition: 22:02 <Ashvin De Los Santos - Last Filed: 07/30/24 22:04> Clinical Impression: COPD (chronic obstructive pulmonary disease) Disposition: HOME SELF-CARE Condition: Fair Instructions (If sedation given, give patient instructions): COPD (Chronic Obstructive Pulmonary Disease) (ED) Prescriptions: HYDROcodone/APAP 5-325MG [Delphia 5-325] 1 tab PO Q6HR PRN #12 tab PRN Reason: Pain predniSONE 50 mg PO DAILY #5 tab Albuterol Inhaler [Ventolin Hfa Inhaler] 1 - 2 puff INHALATION Q4HR PRN #1 each PRN Reason: Shortness Of Breath Referrals: [facility],Clinic [Primary Care Provider] - 1-2 days
[2024-07-30 20:43] LABS: Basophils # (A) 0.1 k/uL (0-0.2); Basophils % (A) 1 %; Eosinophils # (A) 0.3 k/uL (0-0.7); Eosinophils % (A) 5 %; HCT 33.2 % (39.0-53.0); HGB 10.2 gm/dL (13.0-17.5); Hypochromasia Marked; Lymphocytes # (A) 0.8 k/uL (1.0-4.8); Lymphocytes % (A) 11 %; MCH 29.9 pg (25.0-35.0); MCHC 30.7 g/dL (31.0-37.0); MCV 97.5 fL (80.0-100.0); Mean Platelet Volume 6.9; Monocytes # (A) 0.4 k/uL (0-1.0); Monocytes % (A) 5 %; Neutrophils # (A) 5.3 k/uL (1.3-7.7); Neutrophils % (A) 77 %; Platelet Count 443 k/uL (150-450); RBC 3.41 m/uL (4.30-5.90); RDW 15.6 % (11.5-15.5)
[2024-07-30 20:52] LABS: Partial Thromboplastin Time 24.9 sec (22.0-30.0); Prothrombin Time 11.3 sec (10.0-12.5)
[2024-07-30] MEDS: DEXAMETHASONE SOD PHOSPHATE 10 MG/ML 1 ML VIAL IV STA (20:54)
--- NOTE | 2024-07-30 21:07 | XR ---
EXAMINATION TYPE: XR chest 2V DATE OF EXAM: 07/30/2024 COMPARISON: 07/17/2024 HISTORY: Difficulty breathing TECHNIQUE: Frontal and lateral views of the chest are obtained. FINDINGS: There is no focal air space opacity, pleural effusion, or pneumothorax seen. The cardiac silhouette size is within normal limits. The osseous structures are intact. IMPRESSION: No acute cardiopulmonary process. [facility], , 07/30/2024 9:05 PM
[2024-07-30] MEDS: IPRATROPIUM-ALBUTEROL 3 ML NEB INHALATION STA (21:11)
[2024-07-30 21:16] LABS: ALT 48 U/L (4-49); AST 36 U/L (17-59); African American GFR (CKD) 29 (>60 ml/min/1.73 sqM); Albumin 3.9 g/dL (3.5-5.0); Alkaline Phosphatase 99 U/L (38-126); Anion Gap 8 mmol/L; Blood Urea Nitrogen 52 mg/dL (9-20); Calcium 8.9 mg/dL (8.4-10.2); Carbon Dioxide 26 mmol/L (22-30); Chloride 106 mmol/L (98-107); Glucose 117 mg/dL (74-99); Magnesium 2.5 mg/dL (1.6-2.3); Non-African American GFR(CKD) 25 (>60 ml/min/1.73 sqM); Potassium 4.7 mmol/L (3.5-5.1); Sodium 140 mmol/L (137-145); Total Bilirubin 0.4 mg/dL (0.2-1.3); Total Protein 6.7 g/dL (6.3-8.2)
[2024-07-30 21:42] LABS: NT-Pro-B-Type Natriuretic Pept 42700 pg/mL
[2024-07-30 22:17] VITALS: PULSE 96; RESP 18
[2024-07-30] MEDS: HYDROcodone/APAP 5-325MG 1 EACH TAB PO STA (22:17)
[2024-07-30 22:22] VITALS: BP 175/98; TEMP 98.1
== END 2024-07-30 22:16 | disposition home or self-care (01) ==
LOC: EC 20:04
CPT/HCPCS: 36415; 71046; 80053; 83735; 83880; 84484; 85025; 85610; 85730; 93005; 94640; 96374; 99285

== ENCOUNTER 2024-08-01 20:47 | Observation (INO) | payer OTHER ==
[2024-08-01] MEDS: IPRATROPIUM-ALBUTEROL 3 ML NEB INHALATION STA (21:49)
[2024-08-01] MEDS: ALBUTEROL NEBULIZED 2.5 MG/3 ML INHALATION STA (21:49)
--- NOTE | 2024-08-01 21:51 | XR ---
EXAMINATION TYPE: XR chest 2V DATE OF EXAM: 08/01/2024 9:48 PM CLINICAL INDICATION:Male, 74 years old with history of difficulty breathing; [facility] COMPARISON: Chest radiographs from 07/30/2024 TECHNIQUE: XR chest 2V Frontal and lateral views of the chest. FINDINGS: Lungs/Pleura: Lungs are mildly hyperexpanded. No pleural effusion or pneumothorax. Pulmonary vascularity: Unremarkable. Heart/mediastinum: Cardiomediastinal silhouette is unremarkable. Musculoskeletal: No acute osseous pathology. IMPRESSION: 1. No definitive acute process. 2. Suspected emphysematous changes of the lungs. [facility], , 08/01/2024 9:49 PM
--- NOTE | 2024-08-01 22:01 | ED ---
General Adult HPI - General Chief complaint: Shortness of Breath Stated complaint: Difficulty Breathing, COPD, CHF Time Seen by Provider: 08/01/24 21:18 Source: patient, RN notes reviewed, old records reviewed Mode of arrival: ambulatory Limitations: no limitations - History of Present Illness Initial comments: 74-year-old male presenting for reevaluation dyspnea. Patient has history of COPD and CHF. He was seen in the emergency department several days prior with same complaints. He states he Was not able to get his medications filled but continues to have exertional dyspnea. No central chest pain. No fever. Patient does have cough which is nonproductive. - Related Data Home Medications Medication Instructions Recorded Confirmed Tamsulosin [Flomax] 0.4 mg PO DAILY 06/04/16 07/17/24 Melatonin 10 mg PO HS 05/31/22 07/17/24 Mirtazapine [Remeron] 30 mg PO HS 05/31/22 07/17/24 Cholecalciferol [Vitamin D3 (10 20 mcg PO DAILY 10/12/23 07/17/24 Mcg = 400 Iu)] Nitroglycerin Sl Tabs [Nitrostat] 0.4 mg SUBLINGUAL Q5M PRN 10/12/23 07/17/24 carvediloL [Coreg] 12.5 mg PO BID 10/12/23 07/17/24 Atorvastatin [Lipitor] 20 mg PO HS 01/05/24 07/17/24 Albuterol Inhaler [Ventolin Hfa 2 puff INHALATION RT-QID PRN 07/17/24 07/17/24 Inhaler] Fluticasone Propion/Salmeterol 1 puff INHALATION RT-BID 07/17/24 07/17/24 [Advair 250-50 Diskus] Furosemide [Lasix] 20 mg PO DAILY@1500 07/17/24 07/17/24 Furosemide [Lasix] 40 mg PO DAILY 07/17/24 07/17/24 Previous Rx's Medication Instructions Recorded Aspirin 81 mg PO DAILY #30 tab 06/12/22 Albuterol Inhaler [Ventolin Hfa 1 - 2 puff INHALATION Q4HR PRN #1 07/30/24 Inhaler] each HYDROcodone/APAP 5-325MG [[place] 1 tab PO Q6HR PRN #12 tab 07/30/24 5-325] predniSONE 50 mg PO DAILY #5 tab 07/30/24 Allergies Allergy/AdvReac Type Severity Reaction Status Date / Time lisinopril Allergy Angioedema., Verified 07/17/24 20:43 swollen testicle, rash Review of Systems ROS Statement: Those systems with pertinent positive or pertinent negative responses have been documented in the HPI. ROS Other: All systems not noted in ROS Statement are negative. Past Medical History Past Medical History: Cancer, Heart Failure, COPD, GERD/Reflux, Hyperlipidemia, Hypertension, Prostate Disorder, Renal Disease Additional Past Medical History / Comment(s): Pt recently admitted to [facility] on 06/11/22 with acute on chronic CHF, hyperkalemia. Other hx: Recent bladder cancer/completed oral chemo and radiation, past colon cancer with resection, nonischemic cardiomyopathy, 2020 cardiac arrent/Vtach, CKD stage IV, BPH, hemorrhoids, anemia, RLS, chronic low back pain History of Any Multi-Drug Resistant Organisms: None Reported Past Surgical History: Appendectomy, Bowel Resection, Heart Catheterization, Orthopedic Surgery Additional Past Surgical History / Comment(s): R hemicolectomy, colonoscopies, nasal surgery to repair ulcer, R knee arthroscopic surgeries (ACL repair and meniscus repair), L heel fusion d/t trauma, L arm bicep surgery. Past Anesthesia/Blood Transfusion Reactions: No Reported Reaction Additional Past Anesthesia/Blood Transfusion Reaction / Comment(s): no blood transfusion Past Psychological History: Anxiety Smoking Status: Current every day smoker Past Alcohol Use History: None Reported Past Drug Use History: None Reported - Past Family History Mother Family Medical History: Cancer Additional Family Medical History / Comment(s): BREAST Sister(s) Family Medical History: Deep Vein Thrombosis (DVT) Additional Family Medical History / Comment(s): 1 sister had leukemia, and another sister had non hodgkins. Father Family Medical History: COPD Additional Family Medical History / Comment(s): FROM CARDIAC ARREST General Exam Limitations: no limitations General appearance: alert, in no apparent distress Head exam: Present: atraumatic, normocephalic Eye exam: Present: normal appearance, PERRL ENT exam: Present: normal exam Neck exam: Present: normal inspection. Absent: tenderness, meningismus Respiratory exam: Present: wheezes, rhonchi. Absent: respiratory distress Cardiovascular Exam: Present: regular rate, normal rhythm GI/Abdominal exam: Present: soft. Absent: distended, tenderness, guarding Extremities exam: Present: pedal edema Neurological exam: Present: alert, oriented X3, CN II-XII intact. Absent: motor sensory deficit Psychiatric exam: Present: normal affect, normal mood Skin exam: Present: warm, dry, intact Course Vital Signs 08/01/24 08/01/24 08/01/24 21:04 21:49 21:57 Temperature 98.1 F Pulse Rate 90 85 88 Respiratory 24 18 18 Rate Blood Pressure 149/74 O2 Sat by Pulse 96 Oximetry Medical Decision Making - Medical Decision Making Was pt. sent in by a medical professional or institution (, PA, MEDIA SERVICES DIRECTOR, urgent care, hospital, or group home...) When possible be specific @ -[No] Did you speak to anyone other than the patient for history (EMS, parent, family, police, friend...)? What history was obtained from this source @ -[No] Did you review nursing and triage notes (agree or disagree)? Why? @ -[I reviewed and agree with nursing and triage notes] Were old charts reviewed (outside hosp., previous admission, EMS record, old EKG, old radiological studies, urgent care reports/EKG's, group home records)? Report findings @ -[No old charts were reviewed] Differential Dyspnea: Coronary syndrome, arrhythmia, tamponade, asthma, COPD, pulmonary embolism, pneumonia, pneumothorax, pulmonary effusion, anaphylaxis, diabetic ketoacidosis, flailed chest, pulmonary contusion, diaphragmatic rupture, anemia, neuromuscular, this is not meant to be an all-inclusive list. EKG interpreted by me (3pts min.). @EKG: Sinus rhythm rate of 85, MT interval 161, QRS duration 106, QTc 442 ST segment depression and T wave inversion inferior laterally. X-rays interpreted by me (1pt min.). @ -Chest x-ray showing COPD changes without focal pneumonia or pneumothorax CT interpreted by me (1pt min.). @ -[None done] U/S interpreted by me (1pt. min.). @ -[None done] What testing was considered but not performed or refused? (CT, X-rays, U/S, labs)? Why? @ -[None] What meds were considered but not given or refused? Why? @ -[None] Did you discuss the management of the patient with other professionals (professionals i.e. , PA, MEDIA SERVICES DIRECTOR, lab, RT, psych nurse, social studies teacher, patient biller, teacher, fire management officer, correctional case manager)? Give summary @ -Dr. Christy Was smoking cessation discussed for >3mins.? @ -[No] Was critical care preformed (if so, how long)? @ -[No] Were there social determinants of health that impacted care today? How? (Homelessness, low income, unemployed, alcoholism, drug addiction, transportation, low edu. Level, literacy, decrease access to med. care, penitentiary, rehab)? @ -[No] Was there de-escalation of care discussed even if they declined (Discuss DNR or withdrawal of care, Hospice)? DNR status @ -[No] What co-morbidities impacted this encounter? (DM, HTN, Smoking, COPD, CAD, Cancer, CVA, ARF, Chemo, Hep., AIDS, mental health diagnosis, sleep apnea, morbid obesity)? @COPD, CHF Was patient admitted / discharged? Hospital course, mention meds given and rou te, prescriptions, significant lab abnormalities, going to OR and other pertinent info. @75-year-old male with cough, dyspnea. Patient has failed outpatient treatment and will require admission for treatment of COPD exacerbation. He does have a chronic troponin elevation in the setting of chronic kidney disease which is at baseline. His BNP is 40,000 which is low normal for this patient. Chest x-ray does not show significant overload. Patient admitted to [facility]. Undiagnosed new problem with uncertain prognosis? @ -[No] Drug Therapy requiring intensive monitoring for toxicity (Heparin, Nitro, Insulin, Cardizem)? @ -[No] Were any procedures done? @ -[No] Diagnosis/symptom? @COPD Acute, or Chronic, or Acute on Chronic? @Acute on chronic Uncomplicated (without systemic symptoms) or Complicated (systemic symptoms)? @ -[default] Side effects of treatment? @ -[No] Exacerbation, Progression, or Severe Exacerbation? @ -[No] Poses a threat to life or bodily function? How? (Chest pain, [place], VA, pneumonia, PE, COPD, DKA, ARF, appy, cholecystitis, CVA, Diverticulitis, Homicidal, Suicidal, threat to staff... and all critical care pts) @ -[Respiratory failure - Lab Data Result diagrams: 08/01/24 22:14 08/01/24 22:14 Lab Results 08/01/24 08/01/24 08/01/24 Range/Units 22:14 22:14 22:14 WBC 7.7 (3.8-10.6) k/uL RBC 3.50 L (4.30-5.90) m/uL Hgb 10.5 L (13.0-17.5) gm/dL Hct 34.1 L (39.0-53.0) % MCV 97.3 (80.0-100.0) fL MCH 29.9 (25.0-35.0) pg MCHC 30.8 L (31.0-37.0) g/dL RDW 15.4 (11.5-15.5) % Plt Count 466 H (150-450) k/uL MPV 7.0 Neutrophils % 73 % Lymphocytes % 14 % Monocytes % 6 % Eosinophils % 5 % Basophils % 1 % Neutrophils # 5.6 (1.3-7.7) k/uL Lymphocytes # 1.1 (1.0-4.8) k/uL Monocytes # 0.4 (0-1.0) k/uL Eosinophils # 0.4 (0-0.7) k/uL Basophils # 0.0 (0-0.2) k/uL Hypochromasia Marked PT 11.0 (10.0-12.5) sec INR 1.0 (<1.2) APTT 24.9 (22.0-30.0) sec Sodium 138 (137-145) mmol/L Potassium 4.3 (3.5-5.1) mmol/L Chloride 107 (98-107) mmol/L Carbon Dioxide 26 (22-30) mmol/L Anion Gap 5 mmol/L BUN 51 H (9-20) mg/dL Creatinine 2.38 H (0.66-1.25) mg/dL Est GFR (CKD-EPI)AfAm 30 (>60 ml/min/1.73 sqM) Est GFR (CKD-EPI)NonAf 26 (>60 ml/min/1.73 sqM) Glucose 90 (74-99) mg/dL Calcium 8.8 (8.4-10.2) mg/dL Total Bilirubin 0.4 (0.2-1.3) mg/dL AST 30 (17-59) U/L ALT 39 (4-49) U/L Alkaline Phosphatase 97 (38-126) U/L Troponin I (0.000-0.034) ng/mL NT-Pro-B Natriuret Pep 93927 pg/mL Total Protein 6.4 (6.3-8.2) g/dL Albumin 3.7 (3.5-5.0) g/dL 08/01/24 Range/Units 22:14 WBC (3.8-10.6) k/uL RBC (4.30-5.90) m/uL Hgb (13.0-17.5) gm/dL Hct (39.0-53.0) % MCV (80.0-100.0) fL MCH (25.0-35.0) pg MCHC (31.0-37.0) g/dL RDW (11.5-15.5) % Plt Count (150-450) k/uL MPV Neutrophils % % Lymphocytes % % Monocytes % % Eosinophils % % Basophils % % Neutrophils # (1.3-7.7) k/uL Lymphocytes # (1.0-4.8) k/uL Monocytes # (0-1.0) k/uL Eosinophils # (0-0.7) k/uL Basophils # (0-0.2) k/uL Hypochromasia PT (10.0-12.5) sec INR (<1.2) APTT (22.0-30.0) sec Sodium (137-145) mmol/L Potassium (3.5-5.1) mmol/L Chloride (98-107) mmol/L Carbon Dioxide (22-30) mmol/L Anion Gap mmol/L BUN (9-20) mg/dL Creatinine (0.66-1.25) mg/dL Est GFR (CKD-EPI)AfAm (>60 ml/min/1.73 sqM) Est GFR (CKD-EPI)NonAf (>60 ml/min/1.73 sqM) Glucose (74-99) mg/dL Calcium (8.4-10.2) mg/dL Total Bilirubin (0.2-1.3) mg/dL AST (17-59) U/L ALT (4-49) U/L Alkaline Phosphatase (38-126) U/L Troponin I 0.044 H* (0.000-0.034) ng/mL NT-Pro-B Natriuret Pep pg/mL Total Protein (6.3-8.2) g/dL Albumin (3.5-5.0) g/dL Disposition Clinical Impression: CKD (chronic kidney disease), Elevated troponin I level, COPD (chronic obstructive pulmonary disease) Disposition: ADMITTED IP TO THIS HOSP Condition: Stable Is patient prescribed a controlled substance at d/c from ED?: No Referrals: [facility],Clinic [Primary Care Provider] - 1-2 days Time of Disposition: 00:27
[2024-08-01] MEDS: HYDROmorphone 0.5 MG/0.5 ML SYRINGE IVP STA (22:08)
[2024-08-01] MEDS: DEXAMETHASONE SOD PHOSPHATE 10 MG/ML 1 ML VIAL IV STA (22:09)
[2024-08-01 22:25] LABS: Basophils % (A) 1 %; Eosinophils # (A) 0.4 k/uL (0-0.7); Eosinophils % (A) 5 %; HCT 34.1 % (39.0-53.0); HGB 10.5 gm/dL (13.0-17.5); Hypochromasia Marked; Lymphocytes # (A) 1.1 k/uL (1.0-4.8); Lymphocytes % (A) 14 %; MCH 29.9 pg (25.0-35.0); MCHC 30.8 g/dL (31.0-37.0); MCV 97.3 fL (80.0-100.0); Monocytes # (A) 0.4 k/uL (0-1.0); Monocytes % (A) 6 %; Neutrophils # (A) 5.6 k/uL (1.3-7.7); Neutrophils % (A) 73 %; Platelet Count 466 k/uL (150-450); RDW 15.4 % (11.5-15.5); WBC 7.7 k/uL (3.8-10.6)
[2024-08-01 22:33] LABS: ALT 39 U/L (4-49); AST 30 U/L (17-59); African American GFR (CKD) 30 (>60 ml/min/1.73 sqM); Albumin 3.7 g/dL (3.5-5.0); Alkaline Phosphatase 97 U/L (38-126); Anion Gap 5 mmol/L; Blood Urea Nitrogen 51 mg/dL (9-20); Calcium 8.8 mg/dL (8.4-10.2); Carbon Dioxide 26 mmol/L (22-30); Chloride 107 mmol/L (98-107); Glucose 90 mg/dL (74-99); Non-African American GFR(CKD) 26 (>60 ml/min/1.73 sqM); Potassium 4.3 mmol/L (3.5-5.1); Sodium 138 mmol/L (137-145); Total Bilirubin 0.4 mg/dL (0.2-1.3); Total Protein 6.4 g/dL (6.3-8.2)
[2024-08-01 22:38] LABS: Partial Thromboplastin Time 24.9 sec (22.0-30.0)
[2024-08-01 23:15] LABS: NT-Pro-B-Type Natriuretic Pept 46100 pg/mL
[2024-08-02] MEDS ORDERED: NALOXONE 0.4 MG/ML 1 ML VIAL IVP PRN (00:22)
[2024-08-02] MEDS ORDERED: IPRATROPIUM-ALBUTEROL 3 ML NEB INHALATION PRN (00:22)
[2024-08-02] MEDS: ACETAMINOPHEN TAB 325 MG TAB PO PRN (01:34)
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
[2024-08-02] MEDS: LORazepam 2 MG/ML INJ IV PRN (04:36)
[2024-08-02] MEDS: methylPREDNISolone SOD SUCCI 125 MG/2 ML VIAL IV SCH (06:14)
[2024-08-02 07:40] LABS: Glucose,Whole Blood 155 mg/dL (70-110)
[2024-08-02] MEDS: INSULIN ASPART (NovoLOG) 100 UNIT/ML VIAL SQ SCH (08:13)
[2024-08-02] MEDS: FUROSEMIDE 40 MG TAB PO SCH (08:14)
[2024-08-02] MEDS: AZITHROMYCIN 500 MG TAB PO SCH (08:14)
[2024-08-02] MEDS: HEPARIN SODIUM,PORCINE 5,000 UNIT/ML 1 ML VIAL SQ SCH (08:14)
[2024-08-02] MEDS: IPRATROPIUM-ALBUTEROL 3 ML NEB INHALATION SCH (09:17)
[2024-08-02 12:30] LABS: Glucose,Whole Blood 130 mg/dL (70-110)
[2024-08-02] MEDS: TAMSULOSIN 0.4 MG CAP.ER.24H PO SCH (12:32)
[2024-08-02] MEDS: carvediloL 12.5 MG TAB PO SCH (12:32)
[2024-08-02] MEDS: ASPIRIN 81 MG PO SCH (12:32)
[2024-08-02] MEDS: LIDOCAINE 4% PATCH TOPICAL SCH (13:44)
[2024-08-02 14:50] VITALS: BMI 18.0
[2024-08-02] MEDS: HYDROmorphone 0.5 MG/0.5 ML SYRINGE IVP PRN (17:57)
[2024-08-02] MEDS: ALPRAZolam 0.5 MG TAB PO PRN (17:58)
[2024-08-02 19:10] LABS: Glucose,Whole Blood 167 mg/dL (70-110)
[2024-08-02 20:32] LABS: Glucose,Whole Blood 191 mg/dL (70-110)
[2024-08-02] MEDS: SYMBICORT 80-4.5 MCG INHALER INHALATION SCH (20:35)
[2024-08-02] MEDS: ATORVASTATIN 20 MG TAB PO SCH (21:01)
[2024-08-02] MEDS: MIRTAZAPINE 15 MG TAB PO SCH (21:01)
[2024-08-03] MEDS: HYDROcodone/APAP 5-325MG 1 EACH TAB PO PRN (00:19)
[2024-08-03 02:22] VITALS: RESP 18
[2024-08-03 05:47] LABS: Glucose,Whole Blood 208 mg/dL (70-110)
[2024-08-03 07:38] VITALS: BP 130/61; TEMP 97.6
[2024-08-03 07:46] LABS: Basophils % (A) 0 %; Eosinophils % (A) 0 %; HCT 30.5 % (39.0-53.0); HGB 9.8 gm/dL (13.0-17.5); Hypochromasia Slight; Lymphocytes # (A) 0.4 k/uL (1.0-4.8); Lymphocytes % (A) 4 %; MCH 31.1 pg (25.0-35.0); MCHC 32.1 g/dL (31.0-37.0); MCV 96.7 fL (80.0-100.0); Mean Platelet Volume 7.3; Monocytes # (A) 0.3 k/uL (0-1.0); Monocytes % (A) 3 %; Neutrophils # (A) 9.6 k/uL (1.3-7.7); Neutrophils % (A) 94 %; Platelet Count 406 k/uL (150-450); RBC 3.15 m/uL (4.30-5.90); RDW 15.8 % (11.5-15.5); WBC 10.2 k/uL (3.8-10.6)
[2024-08-03 08:01] LABS: African American GFR (CKD) 25 (>60 ml/min/1.73 sqM); Anion Gap 7 mmol/L; Blood Urea Nitrogen 69 mg/dL (9-20); Calcium 8.5 mg/dL (8.4-10.2); Carbon Dioxide 24 mmol/L (22-30); Chloride 104 mmol/L (98-107); Glucose 124 mg/dL (74-99); Non-African American GFR(CKD) 21 (>60 ml/min/1.73 sqM); Sodium 135 mmol/L (137-145)
--- NOTE | 2024-08-03 10:00 | XR ---
EXAMINATION TYPE: XR chest 1V portable DATE OF EXAM: 08/03/2024 COMPARISON: 08/01/2024 HISTORY: S/P TECHNIQUE: Single frontal view of the chest is obtained. FINDINGS: There is no focal air space opacity, pleural effusion, or pneumothorax seen. The cardiac silhouette size is within normal limits. The osseous structures are intact. Diffuse emphysematous c hanges. Osteopenia. Prominent pulmonary arteries likely in the patient's pulmonary arterial retention . Coarsened interstitium suggests pulmonary fibrosis. IMPRESSION: No acute process. COPD with findings suggestive of pulmonary fibrosis. [facility], , 08/03/2024 9:44 AM
--- NOTE | 2024-08-03 10:52 | XR ---
EXAMINATION TYPE: XR ribs RT DATE OF EXAM: 08/03/2024 COMPARISON: NONE HISTORY: Pain TECHNIQUE: 4 views submitted FINDINGS: Subtle deformity posterior margin of the right seventh rib. Visualized lung field clear. Ca lcifications in the axilla likely vascular. AC joint arthropathy. IMPRESSION: 1. Subtle deformity posterior lateral right seventh rib correlate for hairline fracture. [facility], , 08/03/2024 10:50 AM
[2024-08-03 12:07] LABS: Glucose,Whole Blood 168 mg/dL (70-110)
[2024-08-03 12:10] VITALS: PULSE 89
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
== END 2024-08-03 15:16 | disposition home or self-care (01) ==
LOC: EC 20:47 → 6NMEDSUR 08-02 00:25
PROVIDERS: ADMIT Internal Medicine; ATTEND Internal Medicine
DX: J44.1 Chronic obstructive pulmonary disease with (acute) exacerbation (principal); I13.0 Hypertensive heart and chronic kidney disease with heart failure and stage 1 through stage 4 chronic kidney disease, or unspecified chronic kidney disease; I50.21 Acute systolic (congestive) heart failure; N18.4 Chronic kidney disease, stage 4 (severe); M54.6 Pain in thoracic spine; R79.89 Other specified abnormal findings of blood chemistry; E78.5 Hyperlipidemia, unspecified; N40.0 Benign prostatic hyperplasia without lower urinary tract symptoms; F41.9 Anxiety disorder, unspecified; D64.9 Anemia, unspecified; D75.839 Thrombocytosis, unspecified; F17.210 Nicotine dependence, cigarettes, uncomplicated; S22.31XA Fracture of one rib, right side, initial encounter for closed fracture; V28.41XA Electric (assisted) bicycle driver injured in noncollision transport accident in traffic accident, initial encounter; Y93.55 Activity, bike riding; Z79.82 Long term (current) use of aspirin; Z79.51 Long term (current) use of inhaled steroids; Z79.52 Long term (current) use of systemic steroids; Z79.899 Other long term (current) drug therapy; Z88.8 Allergy status to other drugs, medicaments and biological substances; Z91.148 Patient's other noncompliance with medication regimen for other reason
CPT/HCPCS: 36415; 71045; 71046; 80048; 80053; 83880; 84484; 85025; 85610; 85730; 93005; 94640; 94667; 94760; 96372; 96374; 96375; 96376; 99285

== ENCOUNTER → 2024-10-03 | Outpatient (CLI) | payer OTHER ==
[2024-10-04 02:32] LABS: HCT 37.2 % (39.6-50.0); HGB 11.3 g/dL (13.0-17.0); MCH 27.8 pg (27.0-32.0); MCHC 30.4 g/dL (32.0-37.0); MCV 91.6 FL (80.0-97.0); Mean Platelet Volume 9.1 FL (9.5-12.2); NRBC Per 100 WBC 0 X 10*3/uL (0.00-0.01); Platelet Count 328 X 10*3/uL (140-440); RBC 4.06 X 10*6/uL (4.40-5.60); RDW 16.9 % (11.5-14.5); WBC 8.39 X 10*3/uL (4.50-10.00)
[2024-10-04 03:49] LABS: ALT 23 U/L (10-49); AST 26 U/L (14-35); Albumin 4.2 g/dL (3.8-4.9); Albumin/Globulin Ratio 1.68 Ratio (1.60-3.17); Alkaline Phosphatase 106 U/L (41-126); Blood Urea Nitrogen 24.6 mg/dL (9.0-27.0); Carbon Dioxide 18.9 mmol/L (21.6-31.8); Chloride 105 mmol/L (96-109); Globulin 2.5 g/dL (1.6-3.3); Glucose 99 mg/dL (70-110); Potassium 3.9 mmol/L (3.5-5.5); Sodium 143 mmol/L (135-145); Total Bilirubin 0.3 mg/dL (0.3-1.2); Total Protein 6.7 g/dL (6.2-8.2)
== END | disposition home or self-care (01) ==
LOC: LABWHC1 16:16
PROVIDERS: ATTEND Student in an Organized Health Care Education/Training Program
DX: Z13.6 Encounter for screening for cardiovascular disorders (principal); D72.9 Disorder of white blood cells, unspecified; I50.9 Heart failure, unspecified; E11.9 Type 2 diabetes mellitus without complications; E78.5 Hyperlipidemia, unspecified; E03.9 Hypothyroidism, unspecified; R79.89 Other specified abnormal findings of blood chemistry
CPT/HCPCS: 36415; 80053; 83880; 85027